=== PATIENT | male | born 1950 | race African-American/Black ===

== ENCOUNTER 2018-02-02 06:34 | Inpatient (IN) | payer MEDICARE, MEDICAID ==
[~2018-02-02] VITALS: Ht 190.5 cm; Wt 102.1 kg
[2018-02-02] VITALS (19 sets, daily range): BP systolic 75–243; BP diastolic 38–186
[2018-02-02] MEDS ORDERED: METOPROLOL SUCC50 MG ORAL (06:53)
[2018-02-02] MEDS ORDERED: LISINOPRIL10 MG ORAL (06:53)
[2018-02-02] MEDS ORDERED: SEROQUEL100 MG ORAL (06:53)
[2018-02-02] MEDS ORDERED: ACETAMINOPHEN325 M1 ORAL (06:53)
[2018-02-02] MEDS ORDERED: ZINC SULFATE220 M1 ORAL (06:53)
[2018-02-02] MEDS ORDERED: MULTIVITAMINS1 EAC8 ORAL (06:53)
[2018-02-02] MEDS ORDERED: VITAMIN C500 M1 ORAL (06:53)
[2018-02-02] MEDS ORDERED: PROTONIX40 MG ORAL (06:53)
[2018-02-02] MEDS ORDERED: MONTELUKAST SOD10 MG ORAL (06:53)
[2018-02-02] MEDS ORDERED: ALUM-MAG HYDRO360 ML PO (06:53)
[2018-02-02] MEDS ORDERED: MILK OF MA400 MG/51 ORAL (06:53)
[2018-02-02 06:58] LABS: HEMATOCRIT 39.9 % (42.0-52.0); HEMOGLOBIN 12.8 G/DL (14.2-18.0); MEAN CORPUSCULAR VOLUME 90 FL (80-99); PLATELET COUNT 369 K/UL (150-450); RED BLOOD COUNT 4.41 M/UL (4.70-6.10); RED CELL DISTRIBUTION WIDTH 12.3 % (11.6-14.8); WHITE BLOOD COUNT 15.8 K/UL (4.8-10.8)
[2018-02-02 07:19] LABS: INR 1.1 (0.9-1.1)
[2018-02-02 07:28] LABS: ALBUMIN 2.9 G/DL (3.4-5.0); ALBUMIN/GLOBULIN RATIO 0.5 (1.0-2.7); ALKALINE PHOSPHATASE 88 U/L (46-116); ANION GAP 9 mmol/L (5-15); BILIRUBIN,TOTAL 0.9 MG/DL (0.2-1.0); BLOOD UREA NITROGEN 157 mg/dL (7-18); CALCIUM 9.4 MG/DL (8.5-10.1); CARBON DIOXIDE 22 MMOL/L (21-32); CHLORIDE 97 MMOL/L (98-107); CREATININE 7.9 MG/DL (0.55-1.30); POTASSIUM 8.7 MMOL/L (3.5-5.1); SODIUM 129 MMOL/L (136-145)
[2018-02-02] MEDS ORDERED: Insulin Human Regular 100units/ml 3ml IV ONE ×2 (07:30→22:00)
[2018-02-02] MEDS ORDERED: Calcium Chloride 100mg/ml Vial IVP ONE ×2 (07:30)
[2018-02-02] MEDS ORDERED: Sodium Bicarbonate 50ml Carp IV ONE (07:30)
[2018-02-02 07:35] LABS: ALANINE AMINOTRANSFERASE 182 U/L (12-78); ASPARTATE AMINO TRANSFERASE 778 U/L (15-37)
[2018-02-02] MEDS: Nitroglycerin Patch 0.2mg/hr TDERMAL SCH (07:45)
--- NOTE | 2018-02-02 07:50 | Emergency Room Report ---
History of Present Illness General Chief Complaint: Altered Level of Consciousness Present Illness HPI This SNF patient referred for being "altered" noted ~ 3am. Less responsive. No report of fever, trauma, vomiting. Pt. cannot give any history. Paperwork: RLE chronic ulcer, ALBERTO, HTN, bipolar, hyponatremia, CAD, CVA, a fib, substance abuse, November labs: hgb 10, creat 0.8 Allergies: Coded Allergies: MILK (Verified Allergy, Unknown, 02/02/18) Uncoded Allergies: MILK PRODUCTS (Allergy, Unknown, 02/02/18) Nursing Documentation-PMH Hx Cardiac Problems: Yes - A FIB,HYPERLIPIDEMIA,ATHEROSCLEROTIC HEART DIS Hx Hypertension: Yes - NON PRESSURE CHRONIC ULCER ON RT LOWER EXTREMITY Hx Gastrointestinal Problems: Yes - ACUTE KIDNEY FAILURE History Of Psychiatric Problem: Yes - BIPOLAR Hx Cerebrovascular Accident: Yes - CEREBRAL INFARCTION Review of Systems Constitutional: Reports: see HPI Respiratory: Reports: no symptoms Cardiovascular: Reports: no symptoms Gastrointestinal: Reports: no symptoms Neurological: Reports: see HPI All Other Systems: limited Physical Exam Vital Signs Date Time Temp Pulse Resp B/P (MAP) Pulse Ox O2 Delivery O2 Flow Rate FiO2 02/02/18 06:30 98.6 94 18 80/50 97 Room Air 98.6 Sp02 EP Interpretation: reviewed, normal General Appearance: thin, Chronically Ill Eyes: bilateral eye PERRL ENT: dry mucus membranes Neck: normal inspection, supple, thyroid normal Respiratory: normal inspection, lungs clear, normal breath sounds, no accessory muscle use Cardiovascular #1: normal inspection, normal peripheral pulses, regular rate, rhythm Gastrointestinal: normal bowel sounds, non tender, soft Musculoskeletal: other - chronic wound right lower leg; good rom hips, nontender Neurologic: other - lethargic, moves to painful stimuli and spont, occasional word Psychiatric: other - cannot evaluate Medical Decision Making Diagnostic Impression: Primary Impression: Metabolic encephalopathy Additional Impressions: Acute kidney failure Hyperkalemia NSTEMI (non-ST elevated myocardial infarction) Rhabdomyolysis ER Course EKG noted and hyperkalemia meds ordered. BP initially low, then high, then normotensive so no antihtn meds indicated. Bradycardia from 47 to 67 after two amps calcium. Bicarb also given. Insulin/ dextrose given. Pt. cannot take aspirin due to not able to follow directions. d/w Dr. Montesinos who also consulted Dr. Jenkins. CRITICAL CARE NOTE: The patient was at risk for respiratory and cardiac failure and required aggressive intervention by me. Critical care time provided by me, excluding other separately billable procedures exceeded 35 minutes. This time included: Obtaining history from: EMS Examination of the patient Development of treatment plan Ordering and reviewing diagnostic test results Discussion of treatment plan with oracle application consultant, PMD Coordinating care with nursing and respiratory therapy Supervising IV medications Multiple reassessments Discussion with the admitting physician severe hyperkalemia, positive troponin EKG Diagnostic Results EP Interpretation: 730 am: sinus 100, LAD, peaked T waves diffussely Rate: normal Rhythm: NSR ST Segments: other ASA given to the pt in ED: No Rhythm Strip Diag. Results Rhythm Strip Time: 07:53 EP Interpretation: yes Rate: 67 Rhythm: NSR Chest X-Ray Diagnostic Results Chest X-Ray Diagnostic Results : Chest X-Ray Ordered: Yes # of Views/Limited/Complete: 1 View Indication: Chest Pain EP Interpretation: Yes Interpretation: no consolidation, no effusion, no pneumothorax, no acute cardiopulmonary disease, other - ectatic aorta Reevaluation Time: 07:55 heart rate currently 69 Last Vital Signs Date Time Temp Pulse Resp B/P (MAP) Pulse Ox O2 Delivery O2 Flow Rate FiO2 02/02/18 07:00 98.6 88 23 134/106 95 Room Air 98.6 Status: improved Disposition: ADMITTED INPATIENT Condition: Critical Referrals: NON PHYSICIAN (PCP) Adriel Singh M.D. Feb 02, 2018 07:50
[2018-02-02 07:58] LABS: CREATINE KINASE > 10000 U/L (26-308)
[2018-02-02 08:23] LABS: APPEARANCE,URINE CLOUDY; BILIRUBIN, URINE NEGATIVE (NEGATIVE); GLUCOSE, URINE (UA) NEGATIVE (NEGATIVE); KETONES,URINE NEGATIVE (NEGATIVE); LEUKOCYTE ESTERASE ,URINE NEGATIVE (NEGATIVE); NITRITE,URINE NEGATIVE (NEGATIVE); PH,URINE 5 (4.5-8.0); PROTEIN,URINE 2+ (NEGATIVE); UROBILINOGEN,URINE NORMAL MG/DL (0.0-1.0)
[2018-02-02 08:30] LABS: COLOR,URINE YELLOW
--- NOTE | 2018-02-02 10:07 | Diagnostic Imaging Report ---
Indication: Chest pain Technique: One view of the chest Comparison: none Findings: Patient is rotated to the right. Lungs and pleural spaces are clear. Heart size is normal Impression: No acute process
--- NOTE | 2018-02-02 10:46 | Consultation ---
History of Present Illness General Date patient seen: Feb 02, 2018 Chief Complaint: Altered Level of Consciousness Present Illness HPI 67 y/o M with hx of HTN, RLE chronic ulcer, HLD, Bipolar dz, CAD, CVA, Afib, substance abuse, SNF resident presents to ED on 02/02 with AMS, less responsive. No report of fever, trauma, vomiting In ED noted to have hyperkalemia w/ peaked T waves diffussely, BP low initially , bradycardia to 47; both BP and bradycardia improved. Given insulin/dextrose, bicarb. Cr 7.9, K 8.7, CK 10k, Trop 0.20s Allergies: Coded Allergies: MILK (Verified Allergy, Unknown, 02/02/18) Uncoded Allergies: MILK PRODUCTS (Allergy, Unknown, 02/02/18) Medication History Scheduled Ascorbic Acid* (Vitamin C*), 500 MG ORAL DAILY, (Reported) Lisinopril* (Lisinopril*), 10 MG ORAL DAILY, (Reported) Mag Hydrox/Al Hydrox/Simeth (Alum-Mag Hydroxide-Simeth Liq), 30 ML PO EVERY 6 HOURS, (Reported) Magnesium Hydroxide* (Milk Of Magnesia*), 30 ML ORAL BEDTIME, (Reported) Metoprolol Succinate* (Metoprolol Succinate*), 50 MG ORAL EVERY 12 HOURS, ( Reported) Montelukast Sodium* (Montelukast Sodium*), 10 MG ORAL DAILY, (Reported) Multivitamin With Minerals (Multivitamins With Minerals*), 1 TAB ORAL DAILY, ( Reported) Pantoprazole* (Protonix*), 40 MG ORAL DAILY, (Reported) Quetiapine Fumarate* (Seroquel*), 100 MG ORAL BEDTIME, (Reported) Zinc Sulfate (Zinc Sulfate*), 220 MG ORAL DAILY, (Reported) Scheduled PRN Acetaminophen* (Acetaminophen 325MG Tablet*), 650 MG ORAL Q4H PRN for Mild Pain (Pain Scale 1-3), (Reported) Acetaminophen* (Acetaminophen 325MG Tablet*), 650 MG ORAL Q4H PRN for DANNY >101, (Reported) Patient History Healthcare decision maker Resuscitation status Full Code Advanced Directive on File Physical Exam Physical Exam Narrative General Appearance: thin, Chronically Ill Eyes: bilateral eye PERRL ENT: dry mucus membranes Neck: normal inspection, supple, thyroid normal Respiratory: normal inspection, lungs clear, normal breath sounds, no accessory muscle use Cardiovascular #1: normal inspection, normal peripheral pulses, regular rate, rhythm Gastrointestinal: normal bowel sounds, non tender, soft Musculoskeletal: other - chronic wound right lower leg; good rom hips, nontender Neurologic: other - lethargic, moves to painful stimuli and spont, occasional word Psychiatric: other - cannot evaluate Last 24 Hour Vital Signs Date Time Temp Pulse Resp B/P (MAP) Pulse Ox O2 Delivery O2 Flow Rate FiO2 02/02/18 10:18 Simple Mask 5.0 02/02/18 09:36 98.4 78 24 117/74 98 Simple Mask 5.0 98.4 02/02/18 08:36 98.4 82 27 115/82 100 Simple Mask 5.0 98.4 02/02/18 07:45 106/46 02/02/18 07:00 98.6 88 23 134/106 95 Room Air 98.6 02/02/18 06:30 98.6 94 18 80/50 97 Room Air 98.6 Intake and Output 02/01/18 02/02/18 19:00 07:00 Output Total 0 ml Balance 0 ml Output Urine Total 0 ml Laboratory Tests Test 02/02/18 06:38 02/02/18 08:00 White Blood Count 15.8 K/UL (4.8-10.8) H Red Blood Count 4.41 M/UL (4.70-6.10) L Hemoglobin 12.8 G/DL (14.2-18.0) L Hematocrit 39.9 % (42.0-52.0) L Mean Corpuscular Volume 90 FL (80-99) Mean Corpuscular Hemoglobin 29.1 PG (27.0-31.0) Mean Corpuscular Hemoglobin Concent 32.2 G/DL (32.0-36.0) Red Cell Distribution Width 12.3 % (11.6-14.8) Platelet Count 369 K/UL (150-450) Mean Platelet Volume 4.8 FL (6.5-10.1) L Neutrophils (%) (Auto) % (45.0-75.0) Lymphocytes (%) (Auto) % (20.0-45.0) Monocytes (%) (Auto) % (1.0-10.0) Eosinophils (%) (Auto) % (0.0-3.0) Basophils (%) (Auto) % (0.0-2.0) Differential Total Cells Counted 100 Neutrophils % (Manual) 87 % (45-75) H Lymphocytes % (Manual) 7 % (20-45) L Monocytes % (Manual) 6 % (1-10) Eosinophils % (Manual) 0 % (0-3) Basophils % (Manual) 0 % (0-2) Band Neutrophils 0 % (0-8) Platelet Estimate Adequate Platelet Morphology Normal Red Blood Cell Morphology Normal Prothrombin Time 12.0 SEC (9.30-11.50) H Prothromb Time International Ratio 1.1 (0.9-1.1) Sodium Level 129 MMOL/L (136-145) L Potassium Level 8.7 MMOL/L (3.5-5.1) *H Chloride Level 97 MMOL/L (98-107) L Carbon Dioxide Level 22 MMOL/L (21-32) Anion Gap 9 mmol/L (5-15) Blood Urea Nitrogen 157 mg/dL (7-18) H Creatinine 7.9 MG/DL (0.55-1.30) H Estimat Glomerular Filtration Rate 8.4 mL/min (>60) Glucose Level 117 MG/DL (74-106) H Lactic Acid Level 2.00 mmol/L (0.4-2.0) Calcium Level 9.4 MG/DL (8.5-10.1) Total Bilirubin 0.9 MG/DL (0.2-1.0) Aspartate Amino Transf (AST/SGOT) 778 U/L (15-37) H Alanine Aminotransferase (ALT/SGPT) 182 U/L (12-78) H Alkaline Phosphatase 88 U/L (46-116) Total Creatine Kinase > 44860 U/L (26-308) H Troponin I 0.288 ng/mL (0.000-0.056) Total Protein 8.2 G/DL (6.4-8.2) Albumin 2.9 G/DL (3.4-5.0) L Globulin 5.3 g/dL Albumin/Globulin Ratio 0.5 (1.0-2.7) L Urine Color Yellow Urine Appearance Cloudy Urine pH 5 (4.5-8.0) Urine Specific [place] 1.020 (1.005-1.035) Urine Protein 2+ (NEGATIVE) H Urine Glucose (UA) Negative (NEGATIVE) Urine Ketones Negative (NEGATIVE) Urine Occult Blood 5+ (NEGATIVE) H Urine Nitrite Negative (NEGATIVE) Urine Bilirubin Negative (NEGATIVE) Urine Urobilinogen Normal MG/DL (0.0-1.0) Urine Leukocyte Esterase Negative (NEGATIVE) Urine RBC 5-10 /HPF (0 - 0) H Urine WBC 0-2 /HPF (0 - 0) Urine Squamous Epithelial Cells Occasional /LPF Urine Amorphous Sediment Moderate /LPF (NONE) H Urine Bacteria Occasional /HPF (NONE) Microbiology Date/Time Source Procedure Growth Status 02/02/18 08:00 Rectum Received Height (Feet): 6 Height (Inches): 3.00 Weight (Pounds): 190 Medications Current Medications Medications (Trade) Dose Ordered Sig/Erlin Route PRN Reason Start Time Stop Time Status Last Admin Dose Admin Nitroglycerin (Ntg) 1 patch Q24H TDERMAL 02/02/18 07:45 03/04/18 07:44 Assessment/Plan Assessment/Plan Abx: None Assessment: Afebrile, no leukocytosis- no evidence of infectious process -u/a neg -CXR: no acute disease R leg ulcer- no signs of infection Acute renal failure- ?etiology- r/o toxic Anion gap acidosis Rhabdomyolysis Elevated LFTs (AST>ALT) Hyperkalemia w/ EKG changes Hypotension/bradycardia upon admission -2ry to above Metabolic encephalopathy Plan: -Continue to monitor off abx -UDS, alcohol, salicyclic acid levels -ABD/renal US -HIV and hep serologies -Renal eval -f/u cx -Monitor CBC/CMP, temperatures -ICU support -Aspiration precautions -wound care as per hosp protocol Thank you for this consultation. Will continue to follow along with you. Discussed with DAI. Alma Elkins M.D. Feb 02, 2018 10:46
[2018-02-02] MEDS ORDERED: Heparin Sod 1000 units/ml 10ml INJ ONE (11:00)
[2018-02-02] MEDS ORDERED: Heparin 2000 units/Ns 1000ml IV SCH (11:05)
[2018-02-02] MEDS ORDERED: Lidocaine 1% Plain 30 ml INJ SCH (11:05)
--- NOTE | 2018-02-02 11:21 | Consultation ---
Consult Note Consult Note asked to eval for renal failure Chief Complaint: Altered Level of Consciousness This SNF patient referred for being "altered" noted ~ 3am. Less responsive. No report of fever, trauma, vomiting. Pt. cannot give any history. Paperwork: RLE chronic ulcer, ALBERTO, HTN, bipolar, hyponatremia, CAD, CVA, a fib, substance abuse, November labs: hgb 10, creat 0.8 Allergies: MILK (Verified Allergy, Unknown, 02/02/18) MILK PRODUCTS (Allergy, Unknown, 02/02/18) Nursing Documentation-PMH Hx Cardiac Problems: Yes - A FIB,HYPERLIPIDEMIA,ATHEROSCLEROTIC HEART DIS Hx Hypertension: Yes - NON PRESSURE CHRONIC ULCER ON RT LOWER EXTREMITY Hx Gastrointestinal Problems: Yes - ACUTE KIDNEY FAILURE History Of Psychiatric Problem: Yes - BIPOLAR Hx Cerebrovascular Accident: Yes - CEREBRAL INFARCTION seen in ICU Altered Assessment/Plan Acute Renal Failure- Severe HyperKalemia Low BP Valladares 850 cc removed IV fluids- PEARL Kidney stat DIalysis for high K Ruy Colvin MD Feb 02, 2018 11:21
[2018-02-02] MEDS: DOPamine 400mg/250ml 250 ML IV SCH ×2 (12:00→23:27)
[2018-02-02] MEDS: D5NS 1,000 ML IV SCH ×2 (12:00→17:45)
[2018-02-02] MEDS: Sodium Bicarbonate 50ml Carp IV SCH ×2 (12:00→21:29)
[2018-02-02] MEDS ORDERED: Calcium Gluconate 1gm/10ml vial IVP SCH (12:00)
[2018-02-02] MEDS ORDERED: Heparin 5000 units/ml inj SUBQ SCH (12:00)
--- NOTE | 2018-02-02 12:14 | Operative Note - PDOC ---
Operative Note Operative Note Date of Operation/Procedure: Feb 02, 2018 Pre-op Diagnosis: sepsis, altered mental status, critical care, hyperkalemia Procedure: 1. right Internal Jugular central venous catheter insertion 2. left internal jugular temporary hemodialysis catheter insertion Post-op Diagnosis: same as pre-op Surgeon: rhett Anesthesia: local Specimen: none Complications: none Condition: unstable Fluids: n/a Estimated Blood Loss: minimal Drains: none Implant(s) used?: No Indications for Procedure 67M [facility] resident was admitted to ICU for critical care and management. Noted to be septic with multiple medical comorbidities. For critical care management requires central venous access for meds , fluids, and therapy. Also hyperkalemia with possible EKG changes requiring urgent dialysis. Central venous catheter and temp HD catheter indicated and recommended. surgery called for placement. consent obtained. procedure bedside in ICU Description of Procedure patient made comfortable at bedside. patient in ICU on monitors with staff present. ultrasound used to identify left and right IJ. right larger than left. both right and left neck prepped and draped in standard surgical fashion. team gowned and gloved in standard surgical fashion. time out performed. left internal jugular vein cannulated with finder needle under ultrasound guidance. guide wire placed over needle and needle removed. ultrasound identified wire in left IJ. small skin incision made over wire. dilator used to dilate track. triple lumen catheter placed over guide wire. guidewire removed and discarded. all ports flushed and aspirated well. catheter sutured in two places. dressings applied. right IJ then identified using ultrasound and cannulated with finder needle. guidewire passed over needle. small skin incision made and dilators used. temporary HD cath placed over wire into right IJ without complication. catheter sutured in place. all ports flushed and aspirated. heparin placed in HD catheter ports. local anesthetic used during procedure for patients comfort. CXR obtained and lines in place ready for use. patient tolerated procedure well. Goyo Osuna Feb 02, 2018 12:14
[2018-02-02 12:21] LABS: BASOPHILS % (AUTO) 0.9 % (0.0-2.0); HEMATOCRIT 36.9 % (42.0-52.0); HEMOGLOBIN 12.2 G/DL (14.2-18.0); LYMPHOCYTES % (AUTO) 5.7 % (20.0-45.0); MEAN CORPUSCULAR VOLUME 90 FL (80-99); MONOCYTES % (AUTO) 12.3 % (1.0-10.0); PLATELET COUNT 297 K/UL (150-450); RED BLOOD COUNT 4.09 M/UL (4.70-6.10); RED CELL DISTRIBUTION WIDTH 12.2 % (11.6-14.8); WHITE BLOOD COUNT 17.7 K/UL (4.8-10.8)
--- NOTE | 2018-02-02 12:23 | History and Physical ---
History of Present Illness General Date patient seen: Feb 02, 2018 Reason for Hospitalization: Altered Level of Consciousness Present Illness HPI 67 year old male with hx of HTN, bipolar, hyponatremia, CAD, CVA, a fib, RLE chronic ulcer, substance abuse SNF resident, brought in by paramedics with CC of being "altered" noted ~ 3am. Less responsive. No report of fever, trauma, vomiting. Pt. cannot give any history. Pt was found to be in renal with K of 8 and admitted to ICU for further management. Allergies: Coded Allergies: MILK (Verified Allergy, Unknown, 02/02/18) Uncoded Allergies: MILK PRODUCTS (Allergy, Unknown, 02/02/18) Medication History Scheduled Ascorbic Acid* (Vitamin C*), 500 MG ORAL DAILY, (Reported) Lisinopril* (Lisinopril*), 10 MG ORAL DAILY, (Reported) Mag Hydrox/Al Hydrox/Simeth (Alum-Mag Hydroxide-Simeth Liq), 30 ML PO EVERY 6 HOURS, (Reported) Magnesium Hydroxide* (Milk Of Magnesia*), 30 ML ORAL BEDTIME, (Reported) Metoprolol Succinate* (Metoprolol Succinate*), 50 MG ORAL EVERY 12 HOURS, ( Reported) Montelukast Sodium* (Montelukast Sodium*), 10 MG ORAL DAILY, (Reported) Multivitamin With Minerals (Multivitamins With Minerals*), 1 TAB ORAL DAILY, ( Reported) Pantoprazole* (Protonix*), 40 MG ORAL DAILY, (Reported) Quetiapine Fumarate* (Seroquel*), 100 MG ORAL BEDTIME, (Reported) Zinc Sulfate (Zinc Sulfate*), 220 MG ORAL DAILY, (Reported) Scheduled PRN Acetaminophen* (Acetaminophen 325MG Tablet*), 650 MG ORAL Q4H PRN for Mild Pain (Pain Scale 1-3), (Reported) Acetaminophen* (Acetaminophen 325MG Tablet*), 650 MG ORAL Q4H PRN for DANNY >101, (Reported) Patient History Healthcare decision maker Resuscitation status Full Code Advanced Directive on File Past Medical/Surgical History Past Medical/Surgical History: (1) CAD (coronary artery disease) (2) CVA (cerebral vascular accident) (3) Drug abuse (4) HTN (hypertension) (5) Bipolar 1 disorder Review of Systems All Other Systems: negative except mentioned in HPI ROS Narrative pt can't give any history, totally stuporous Physical Exam General Appearance: WD/WN, no apparent distress Lines, tubes and drains: peripheral HEENT: normocephalic, atraumatic Neck: non-tender, normal alignment Respiratory/Chest: chest wall non-tender, lungs clear, normal breath sounds Breasts: no masses Cardiovascular/Chest: normal peripheral pulses, normal rate Abdomen: normal bowel sounds, non tender Genitourinary/Rectal: normal genital exam Skin Exam: normal pigmentation Neurologic: webbing tacker II-XII grossly normal Last 24 Hour Vital Signs Date Time Temp Pulse Resp B/P (MAP) Pulse Ox O2 Delivery O2 Flow Rate FiO2 02/02/18 11:00 63 16 140/49 (79) 100 02/02/18 10:18 Simple Mask 5.0 02/02/18 10:00 98.7 71 16 110/59 (76) 100 98.7 02/02/18 09:36 98.4 78 24 117/74 98 Simple Mask 5.0 98.4 02/02/18 08:36 98.4 82 27 115/82 100 Simple Mask 5.0 98.4 02/02/18 07:45 106/46 02/02/18 07:00 98.6 88 23 134/106 95 Room Air 98.6 02/02/18 06:30 98.6 94 18 80/50 97 Room Air 98.6 Intake and Output 02/01/18 02/02/18 19:00 07:00 Output Total 0 ml Balance 0 ml Output Urine Total 0 ml Laboratory Tests Test 02/02/18 06:38 02/02/18 08:00 02/02/18 10:55 White Blood Count 15.8 K/UL (4.8-10.8) H Red Blood Count 4.41 M/UL (4.70-6.10) L Hemoglobin 12.8 G/DL (14.2-18.0) L Hematocrit 39.9 % (42.0-52.0) L Mean Corpuscular Volume 90 FL (80-99) Mean Corpuscular Hemoglobin 29.1 PG (27.0-31.0) Mean Corpuscular Hemoglobin Concent 32.2 G/DL (32.0-36.0) Red Cell Distribution Width 12.3 % (11.6-14.8) Platelet Count 369 K/UL (150-450) Mean Platelet Volume 4.8 FL (6.5-10.1) L Neutrophils (%) (Auto) % (45.0-75.0) Lymphocytes (%) (Auto) % (20.0-45.0) Monocytes (%) (Auto) % (1.0-10.0) Eosinophils (%) (Auto) % (0.0-3.0) Basophils (%) (Auto) % (0.0-2.0) Differential Total Cells Counted 100 Neutrophils % (Manual) 87 % (45-75) H Lymphocytes % (Manual) 7 % (20-45) L Monocytes % (Manual) 6 % (1-10) Eosinophils % (Manual) 0 % (0-3) Basophils % (Manual) 0 % (0-2) Band Neutrophils 0 % (0-8) Platelet Estimate Adequate Platelet Morphology Normal Red Blood Cell Morphology Normal Prothrombin Time 12.0 SEC (9.30-11.50) H Prothromb Time International Ratio 1.1 (0.9-1.1) Sodium Level 129 MMOL/L (136-145) L Potassium Level 8.7 MMOL/L (3.5-5.1) *H Chloride Level 97 MMOL/L (98-107) L Carbon Dioxide Level 22 MMOL/L (21-32) Anion Gap 9 mmol/L (5-15) Blood Urea Nitrogen 157 mg/dL (7-18) H Creatinine 7.9 MG/DL (0.55-1.30) H Estimat Glomerular Filtration Rate 8.4 mL/min (>60) Glucose Level 117 MG/DL (74-106) H Lactic Acid Level 2.00 mmol/L (0.4-2.0) Calcium Level 9.4 MG/DL (8.5-10.1) Total Bilirubin 0.9 MG/DL (0.2-1.0) Aspartate Amino Transf (AST/SGOT) 778 U/L (15-37) H Alanine Aminotransferase (ALT/SGPT) 182 U/L (12-78) H Alkaline Phosphatase 88 U/L (46-116) Total Creatine Kinase > 56830 U/L (26-308) H Troponin I 0.288 ng/mL (0.000-0.056) Total Protein 8.2 G/DL (6.4-8.2) Albumin 2.9 G/DL (3.4-5.0) L Globulin 5.3 g/dL Albumin/Globulin Ratio 0.5 (1.0-2.7) L Urine Color Yellow Urine Appearance Cloudy Urine pH 5 (4.5-8.0) Urine Specific [place] 1.020 (1.005-1.035) Urine Protein 2+ (NEGATIVE) H Urine Glucose (UA) Negative (NEGATIVE) Urine Ketones Negative (NEGATIVE) Urine Occult Blood 5+ (NEGATIVE) H Urine Nitrite Negative (NEGATIVE) Urine Bilirubin Negative (NEGATIVE) Urine Urobilinogen Normal MG/DL (0.0-1.0) Urine Leukocyte Esterase Negative (NEGATIVE) Urine RBC 5-10 /HPF (0 - 0) H Urine WBC 0-2 /HPF (0 - 0) Urine Squamous Epithelial Cells Occasional /LPF Urine Amorphous Sediment Moderate /LPF (NONE) H Urine Bacteria Occasional /HPF (NONE) Arterial Blood pH 7.335 (7.350-7.450) Arterial Blood Partial Pressure CO2 35.3 mmHg (35.0-45.0) Arterial Blood Partial Pressure O2 133.7 mmHg (75.0-100.0) H Arterial Blood HCO3 18.4 mmol/L (22.0-26.0) L Arterial Blood Oxygen Saturation 98.1 % (92.0-98.0) H Arterial Blood Base Excess -6.6 Trell Test Positive Microbiology Date/Time Source Procedure Growth Status 02/02/18 08:00 Rectum Received Height (Feet): 6 Height (Inches): 3.00 Weight (Pounds): 190 Medications Current Medications Medications (Trade) Dose Ordered Sig/Erlin Route PRN Reason Start Time Stop Time Status Last Admin Dose Admin Calcium Gluconate (Calcium Gluconate 10%) 1 gm ONCE IVP 02/02/18 12:00 02/02/18 13:00 Dextrose/Sodium Chloride 1,000 ml @ 150 mls/hr Q6H40M IV 02/02/18 11:30 03/04/18 11:29 Dopamine HCl/ Dextrose 250 ml @ 0 mls/hr Q24H IV 02/02/18 12:00 03/04/18 11:59 Heparin Sodium (Porcine) (Heparin 5000 units/ml) 5,000 units ONCE SUBQ 02/02/18 12:00 02/02/18 13:00 Heparin Sodium/ Sodium Chloride (Heparin 2000 units/Ns 1000ml premix) 2,000 unit ONCE IV 02/02/18 11:05 02/02/18 18:00 Lidocaine HCl (Xylocaine 1% 30ml) 30 ml ONCE INJ 02/02/18 11:05 02/02/18 18:00 Nitroglycerin (Ntg) 1 patch Q24H TDERMAL 02/02/18 07:45 03/04/18 07:44 Sodium Bicarbonate (Sodium Bicarbonate) 50 ml TID IV 02/02/18 13:00 02/03/18 09:01 Assessment/Plan Problem List: (1) Metabolic encephalopathy ICD Codes: G93.41 - Metabolic encephalopathy SNOMED: 91251243 (2) Acute kidney failure ICD Codes: N17.9 - Acute kidney failure, unspecified SNOMED: 72809971 (3) NSTEMI (non-ST elevated myocardial infarction) ICD Codes: I21.4 - Non-ST elevation (NSTEMI) myocardial infarction SNOMED: 952663636 (4) CAD (coronary artery disease) ICD Codes: I25.10 - Atherosclerotic heart disease of [place] coronary artery without angina pectoris SNOMED: 62782957 (5) CVA (cerebral vascular accident) ICD Codes: I63.9 - Cerebral infarction, unspecified SNOMED: 559162760 (6) Bipolar 1 disorder ICD Codes: F31.9 - Bipolar disorder, unspecified SNOMED: 970571834 (7) HTN (hypertension) ICD Codes: I10 - Essential (primary) hypertension SNOMED: 45080928 Assessment/Plan iv fluids check electrolytes HD access wound care CVP monitoring dvt prophylaxis renal US echo serial troponin swallow study when mental status better Minerva Montesinos MD Feb 02, 2018 12:23
[2018-02-02] MEDS ORDERED: Miralax 17gm pkt ORAL PRN (12:30)
[2018-02-02] MEDS ORDERED: Albuterol/Ipratropium 3ml neb HHN PRN (12:30)
[2018-02-02 12:47] LABS: ALANINE AMINOTRANSFERASE 313 U/L (12-78); ALBUMIN 2.2 G/DL (3.4-5.0); ALBUMIN/GLOBULIN RATIO 0.5 (1.0-2.7); ALKALINE PHOSPHATASE 73 U/L (46-116); ANION GAP 9 mmol/L (5-15); ASPARTATE AMINO TRANSFERASE 1684 U/L (15-37); BLOOD UREA NITROGEN 135 mg/dL (7-18); CALCIUM 9.3 MG/DL (8.5-10.1); CARBON DIOXIDE 20 MMOL/L (21-32); CHLORIDE 105 MMOL/L (98-107); CREATININE 6.3 MG/DL (0.55-1.30); SODIUM 134 MMOL/L (136-145)
[2018-02-02 12:48] LABS: POTASSIUM 7.6 MMOL/L (3.5-5.1)
[2018-02-02] MEDS ORDERED: Sodium Bicarbonate 50ml Carp IV SCH (13:00)
[2018-02-02 13:48] LABS: CREATINE KINASE > 10000 U/L (26-308)
--- NOTE | 2018-02-02 14:29 | Diagnostic Imaging Report ---
Indication: Abnormal liver function tests and abnormal renal function tests Technique: Oh-scale and duplex images of the upper abdomen were obtained Comparison: none Findings: Gallbladder is nondistended. It demonstrates a small amount sludge, but no stones, wall thickening, nor pericholecystic fluid. Gallbladder wall measures 4 mm thick Common bile duct measures 7 mm in diameter. No intrahepatic biliary ductal dilatation. Liver demonstrates normal echogenicity, no focal abnormality. Portal vein and hepatic veins are patent. Pancreas is unremarkable. Spleen is unremarkable. Left kidney measures 11 cm in length. Right kidney measures 11 cm length. Both kidneys demonstrate equivocally slightly increased echogenicity. There is no hydronephrosis. No focal abnormality . Non-aneurysmal abdominal aorta . The bladder contains a Valladares catheter. It demonstrates a calculated volume of 150 mL despite the presence of the Valladares catheter. A small amount of debris is seen layering dependently within the urinary bladder. Impression: Gallbladder sludge, but no stones. Apparent mild gallbladder wall thickening, probably an artifact of under distention, but if real could indicate acute acalculous cholecystitis, among other possibilities. Consider hepatobiliary nuclear scan if there is high clinical suspicion Mildly dilated common bile duct. Downstream obstruction not excludable. Consider MRCP for further evaluation, if clinically indicated 150 mL urinary bladder volume, despite presence of Valladares catheter. Trace debris within the urinary bladder
--- NOTE | 2018-02-02 14:51 | Diagnostic Imaging Report ---
Indication: Post right jugular dialysis catheter placement of left jugular central line placement Technique: One view of the chest Comparison: 5 hours earlier Findings: Interim placement right jugular temporary dialysis catheter, tip which projects at the level of the cavoatrial junction. Interim placement of a left jugular central venous catheter, tip which projects at the level of the mid superior vena cava. The lungs and pleural spaces are clear. There is no evidence of pneumothorax. Left costophrenic angle is cut off exam. The heart size is normal. The aorta is tortuous and ectatic Impression: Satisfactory left jugular central venous catheter placement and right jugular temporary dialysis catheter placement, both suitable for use. No radiographically evident complication No acute abnormality
[2018-02-02 20:06] LABS: AMMONIA < 10 umol/L (11-32)
--- NOTE | 2018-02-02 20:13 | Consultation ---
History of Present Illness General Date patient seen: Feb 02, 2018 Chief Complaint: Altered Level of Consciousness Present Illness HPI 67 y/o M with hx of HTN, RLE chronic ulcer, HLD, Bipolar dz, CAD, CVA, Afib, substance abuse the pt is confused knows his name however has waxing and waning of consciousness. memory impairment Allergies: Coded Allergies: MILK (Verified Allergy, Unknown, 02/02/18) Uncoded Allergies: MILK PRODUCTS (Allergy, Unknown, 02/02/18) Medication History Scheduled Ascorbic Acid* (Vitamin C*), 500 MG ORAL DAILY, (Reported) Lisinopril* (Lisinopril*), 10 MG ORAL DAILY, (Reported) Mag Hydrox/Al Hydrox/Simeth (Alum-Mag Hydroxide-Simeth Liq), 30 ML PO EVERY 6 HOURS, (Reported) Magnesium Hydroxide* (Milk Of Magnesia*), 30 ML ORAL BEDTIME, (Reported) Metoprolol Succinate* (Metoprolol Succinate*), 50 MG ORAL EVERY 12 HOURS, ( Reported) Montelukast Sodium* (Montelukast Sodium*), 10 MG ORAL DAILY, (Reported) Multivitamin With Minerals (Multivitamins With Minerals*), 1 TAB ORAL DAILY, ( Reported) Pantoprazole* (Protonix*), 40 MG ORAL DAILY, (Reported) Quetiapine Fumarate* (Seroquel*), 100 MG ORAL BEDTIME, (Reported) Zinc Sulfate (Zinc Sulfate*), 220 MG ORAL DAILY, (Reported) Scheduled PRN Acetaminophen* (Acetaminophen 325MG Tablet*), 650 MG ORAL Q4H PRN for Mild Pain (Pain Scale 1-3), (Reported) Acetaminophen* (Acetaminophen 325MG Tablet*), 650 MG ORAL Q4H PRN for DANNY >101, (Reported) Patient History Limited by: medical condition History Provided By: Patient, Medical Record, PMD Healthcare decision maker Resuscitation status Full Code Advanced Directive on File Past Medical/Surgical History Past Medical/Surgical History: (1) Rhabdomyolysis (2) Hyperkalemia (3) Acute kidney failure (4) NSTEMI (non-ST elevated myocardial infarction) (5) Drug abuse (6) CAD (coronary artery disease) (7) HTN (hypertension) (8) CVA (cerebral vascular accident) (9) Bipolar 1 disorder (10) Metabolic encephalopathy Review of Systems Psychiatric: Reports: prior hx, anxiety, depressed feelings, emotional problems Physical Exam General Appearance: no apparent distress, confused Last 24 Hour Vital Signs Date Time Temp Pulse Resp B/P (MAP) Pulse Ox O2 Delivery O2 Flow Rate FiO2 02/02/18 19:00 88 16 122/71 (88) 100 02/02/18 18:00 90 16 114/85 (95) 100 18 17:19 Nasal Cannula 02/02/18 17:00 94 16 123/69 (87) 100 02/02/18 16:00 Simple Mask 5.0 02/02/18 16:00 88 02/02/18 16:00 98.5 85 16 112/66 (81) 100 98.5 02/02/18 15:35 Nasal Cannula 5.0 02/02/18 15:00 80 16 150/85 (106) 100 02/02/18 15:00 Nasal Cannula 02/02/18 14:00 75 16 136/66 (89) 100 02/02/18 13:00 78 16 140/52 (81) 100 02/02/18 12:00 97 02/02/18 12:00 66 16 243/186 (205) 100 02/02/18 12:00 Simple Mask 5.0 02/02/18 11:00 63 16 140/49 (79) 100 02/02/18 10:18 Simple Mask 5.0 02/02/18 10:00 98.7 71 16 110/59 (76) 100 98.7 02/02/18 09:36 98.4 78 24 117/74 98 Simple Mask 5.0 98.4 02/02/18 08:36 98.4 82 27 115/82 100 Simple Mask 5.0 98.4 02/02/18 07:45 106/46 02/02/18 07:00 98.6 88 23 134/106 95 Room Air 98.6 02/02/18 06:30 98.6 94 18 80/50 97 Room Air 98.6 Intake and Output 02/01/18 02/02/18 19:00 07:00 Output Total 0 ml Balance 0 ml Output Urine Total 0 ml Laboratory Tests Test 02/02/18 06:38 02/02/18 08:00 02/02/18 10:55 02/02/18 11:00 White Blood Count 15.8 K/UL (4.8-10.8) H Red Blood Count 4.41 M/UL (4.70-6.10) L Hemoglobin 12.8 G/DL (14.2-18.0) L Hematocrit 39.9 % (42.0-52.0) L Mean Corpuscular Volume 90 FL (80-99) Mean Corpuscular Hemoglobin 29.1 PG (27.0-31.0) Mean Corpuscular Hemoglobin Concent 32.2 G/DL (32.0-36.0) Red Cell Distribution Width 12.3 % (11.6-14.8) Platelet Count 369 K/UL (150-450) Mean Platelet Volume 4.8 FL (6.5-10.1) L Neutrophils (%) (Auto) % (45.0-75.0) Lymphocytes (%) (Auto) % (20.0-45.0) Monocytes (%) (Auto) % (1.0-10.0) Eosinophils (%) (Auto) % (0.0-3.0) Basophils (%) (Auto) % (0.0-2.0) Differential Total Cells Counted 100 Neutrophils % (Manual) 87 % (45-75) H Lymphocytes % (Manual) 7 % (20-45) L Monocytes % (Manual) 6 % (1-10) Eosinophils % (Manual) 0 % (0-3) Basophils % (Manual) 0 % (0-2) Band Neutrophils 0 % (0-8) Platelet Estimate Adequate Platelet Morphology Normal Red Blood Cell Morphology Normal Prothrombin Time 12.0 SEC (9.30-11.50) H Prothromb Time International Ratio 1.1 (0.9-1.1) Sodium Level 129 MMOL/L (136-145) L Potassium Level 8.7 MMOL/L (3.5-5.1) *H Chloride Level 97 MMOL/L (98-107) L Carbon Dioxide Level 22 MMOL/L (21-32) Anion Gap 9 mmol/L (5-15) Blood Urea Nitrogen 157 mg/dL (7-18) H Creatinine 7.9 MG/DL (0.55-1.30) H Estimat Glomerular Filtration Rate 8.4 mL/min (>60) Glucose Level 117 MG/DL (74-106) H Lactic Acid Level 2.00 mmol/L (0.4-2.0) Calcium Level 9.4 MG/DL (8.5-10.1) Total Bilirubin 0.9 MG/DL (0.2-1.0) Aspartate Amino Transf (AST/SGOT) 778 U/L (15-37) H Alanine Aminotransferase (ALT/SGPT) 182 U/L (12-78) H Alkaline Phosphatase 88 U/L (46-116) Total Creatine Kinase > 52638 U/L (26-308) H Troponin I 0.288 ng/mL (0.000-0.056) Total Protein 8.2 G/DL (6.4-8.2) Albumin 2.9 G/DL (3.4-5.0) L Globulin 5.3 g/dL Albumin/Globulin Ratio 0.5 (1.0-2.7) L Urine Color Yellow Urine Appearance Cloudy Urine pH 5 (4.5-8.0) Urine Specific [place] 1.020 (1.005-1.035) Urine Protein 2+ (NEGATIVE) H Urine Glucose (UA) Negative (NEGATIVE) Urine Ketones Negative (NEGATIVE) Urine Occult Blood 5+ (NEGATIVE) H Urine Nitrite Negative (NEGATIVE) Urine Bilirubin Negative (NEGATIVE) Urine Urobilinogen Normal MG/DL (0.0-1.0) Urine Leukocyte Esterase Negative (NEGATIVE) Urine RBC 5-10 /HPF (0 - 0) H Urine WBC 0-2 /HPF (0 - 0) Urine Squamous Epithelial Cells Occasional /LPF Urine Amorphous Sediment Moderate /LPF (NONE) H Urine Bacteria Occasional /HPF (NONE) Arterial Blood pH 7.335 (7.350-7.450) Arterial Blood Partial Pressure CO2 35.3 mmHg (35.0-45.0) Arterial Blood Partial Pressure O2 133.7 mmHg (75.0-100.0) H Arterial Blood HCO3 18.4 mmol/L (22.0-26.0) L Arterial Blood Oxygen Saturation 98.1 % (92.0-98.0) H Arterial Blood Base Excess -6.6 Trell Test Positive Urine Opiates Screen Positive (NEGATIVE) H Urine Barbiturates Screen Negative (NEGATIVE) Phencyclidine (PCP) Screen Negative (NEGATIVE) Urine Amphetamines Screen Negative (NEGATIVE) Urine Benzodiazepines Screen Negative (NEGATIVE) Urine Cocaine Screen Negative (NEGATIVE) Urine Marijuana (THC) Screen Negative (NEGATIVE) Test 02/02/18 12:00 02/02/18 16:10 02/02/18 19:00 White Blood Count 17.7 K/UL (4.8-10.8) H Red Blood Count 4.09 M/UL (4.70-6.10) L Hemoglobin 12.2 G/DL (14.2-18.0) L Hematocrit 36.9 % (42.0-52.0) L Mean Corpuscular Volume 90 FL (80-99) Mean Corpuscular Hemoglobin 29.9 PG (27.0-31.0) Mean Corpuscular Hemoglobin Concent 33.1 G/DL (32.0-36.0) Red Cell Distribution Width 12.2 % (11.6-14.8) Platelet Count 297 K/UL (150-450) Mean Platelet Volume 5.0 FL (6.5-10.1) L Neutrophils (%) (Auto) 81.0 % (45.0-75.0) H Lymphocytes (%) (Auto) 5.7 % (20.0-45.0) L Monocytes (%) (Auto) 12.3 % (1.0-10.0) H Eosinophils (%) (Auto) 0.0 % (0.0-3.0) Basophils (%) (Auto) 0.9 % (0.0-2.0) Sodium Level 134 MMOL/L (136-145) L Pending Potassium Level 7.6 MMOL/L (3.5-5.1) *H Pending Chloride Level 105 MMOL/L (98-107) Pending Carbon Dioxide Level 20 MMOL/L (21-32) L Pending Anion Gap 9 mmol/L (5-15) Blood Urea Nitrogen 135 mg/dL (7-18) H Pending Creatinine 6.3 MG/DL (0.55-1.30) H Pending Estimat Glomerular Filtration Rate 10.9 mL/min (>60) Pending Glucose Level 81 MG/DL (74-106) Pending Lactic Acid Level 1.20 mmol/L (0.66-2.22) Uric Acid 12.7 MG/DL (2.6-7.2) H Calcium Level 9.3 MG/DL (8.5-10.1) Pending Total Bilirubin 1.0 MG/DL (0.2-1.0) Pending Aspartate Amino Transf (AST/SGOT) 1684 U/L (15-37) H Pending Alanine Aminotransferase (ALT/SGPT) 313 U/L (12-78) H Pending Alkaline Phosphatase 73 U/L (46-116) Pending Total Creatine Kinase > 62177 U/L (26-308) H Troponin I 0.396 ng/mL (0.000-0.056) 0.946 ng/mL (0.000-0.056) Pending C-Reactive Protein, Quantitative 4.5 mg/dL (0.00-0.90) H Total Protein 6.9 G/DL (6.4-8.2) Pending Albumin 2.2 G/DL (3.4-5.0) L Pending Globulin 4.7 g/dL Pending Albumin/Globulin Ratio 0.5 (1.0-2.7) L Salicylates Level < 0.2 ug/mL (2.8-20) L Ammonia Pending Lipase Pending Microbiology Date/Time Source Procedure Growth Status 02/02/18 08:00 Rectum Received Height (Feet): 6 Height (Inches): 3.00 Weight (Pounds): 190 Medications Current Medications Medications (Trade) Dose Ordered Sig/Erlin Route PRN Reason Start Time Stop Time Status Last Admin Dose Admin Acetaminophen (Tylenol) 650 mg Q4H PRN ORAL Fever 02/02/18 12:30 03/04/18 12:29 Albuterol/ Ipratropium (Albuterol/ Ipratropium) 3 ml Q4H PRN HHN Shortness of Breath 02/02/18 12:30 02/07/18 12:29 Chlorhexidine Gluconate (Yari-Hex 2%) 1 applic DAILY@2000 TOPIC 02/02/18 20:00 03/04/18 19:59 Dextrose (Dextrose 50%) 25 ml PRN IV Hypoglycemia 02/02/18 13:00 03/04/18 12:59 Dextrose (Dextrose 50%) 50 ml PRN IV hypoglycemia 02/02/18 13:00 03/04/18 12:59 Dextrose/Sodium Chloride 1,000 ml @ 150 mls/hr Q6H40M IV 02/02/18 11:30 03/04/18 11:29 02/02/18 17:45 Dopamine HCl/ Dextrose 250 ml @ 0 mls/hr Q24H IV 02/02/18 12:00 03/04/18 11:59 Heparin Sodium (Porcine) (Heparin 5000 units/ml) 5,000 units EVERY 12 HOURS SUBQ 02/02/18 21:00 03/04/18 20:59 Nitroglycerin (Ntg) 1 patch Q24H TDERMAL 02/02/18 07:45 03/04/18 07:44 Ondansetron HCl (Zofran) 4 mg Q6H PRN IVP Nausea & Vomiting 02/02/18 12:30 03/04/18 12:29 Polyethylene Glycol (Miralax) 17 gm DAILYPRN PRN ORAL Constipation 02/02/18 12:30 03/04/18 12:29 Quetiapine Fumarate (SEROquel) 100 mg BEDTIME ORAL 02/02/18 21:00 03/04/18 20:59 Sodium Bicarbonate (Sodium Bicarbonate) 50 ml Q8H IV 02/02/18 12:00 02/03/18 04:01 02/02/18 12:00 Temazepam (Restoril) 15 mg HSPRN PRN ORAL Insomnia 02/02/18 12:30 02/09/18 12:29 Assessment/Plan Assessment/Plan encephalopathy bipolar I substance abuse d/o change seroquel standing to Julissa Post MD Feb 02, 2018 20:13
[2018-02-02 20:14] LABS: ALANINE AMINOTRANSFERASE 351 U/L (12-78); ALBUMIN/GLOBULIN RATIO 0.5 (1.0-2.7); ALKALINE PHOSPHATASE 73 U/L (46-116); ANION GAP 4 mmol/L (5-15); ASPARTATE AMINO TRANSFERASE 1700 U/L (15-37); BILIRUBIN,TOTAL 1.1 MG/DL (0.2-1.0); BLOOD UREA NITROGEN 76 mg/dL (7-18); CALCIUM 8.5 MG/DL (8.5-10.1); CARBON DIOXIDE 29 MMOL/L (21-32); CHLORIDE 103 MMOL/L (98-107); CREATININE 3.5 MG/DL (0.55-1.30); POTASSIUM 5.1 MMOL/L (3.5-5.1); SODIUM 136 MMOL/L (136-145)
[2018-02-02] MEDS: Dyna-Hex 2% Top Sol 2oz TOPIC SCH (20:17)
[2018-02-02 20:18] LABS: BILIRUBIN,DIRECT 0.6 MG/DL (0.0-0.3)
[2018-02-02 21:03] LABS: APPEARANCE,URINE CLOUDY; BILIRUBIN, URINE NEGATIVE (NEGATIVE); GLUCOSE, URINE (UA) NEGATIVE (NEGATIVE); KETONES,URINE NEGATIVE (NEGATIVE); LEUKOCYTE ESTERASE ,URINE 1+ (NEGATIVE); NITRITE,URINE NEGATIVE (NEGATIVE); PH,URINE 6.5 (4.5-8.0); PROTEIN,URINE 3+ (NEGATIVE); UROBILINOGEN,URINE 4 MG/DL (0.0-1.0)
[2018-02-02 21:09] LABS: COLOR,URINE BROWN
[2018-02-02] MEDS: Heparin 5000 units/ml inj SUBQ SCH (21:29)
--- NOTE | 2018-02-02 21:45 | Consultation ---
History of Present Illness General Date patient seen: Feb 02, 2018 Time patient seen: 21:35 Chief Complaint: Altered Level of Consciousness Present Illness HPI 67 year old male admitted for ALOC. Cardiology consulted for elevated troponin. He has a history of HTN, RLE chronic ulcer, HLD, Bipolar, CAD, CVA, Afib, substance abuse He was noted to be hyperkalemia, EKG with peaked T waves. Allergies: Coded Allergies: MILK (Verified Allergy, Unknown, 02/02/18) Uncoded Allergies: MILK PRODUCTS (Allergy, Unknown, 02/02/18) Medication History Scheduled Ascorbic Acid* (Vitamin C*), 500 MG ORAL DAILY, (Reported) Lisinopril* (Lisinopril*), 10 MG ORAL DAILY, (Reported) Mag Hydrox/Al Hydrox/Simeth (Alum-Mag Hydroxide-Simeth Liq), 30 ML PO EVERY 6 HOURS, (Reported) Magnesium Hydroxide* (Milk Of Magnesia*), 30 ML ORAL BEDTIME, (Reported) Metoprolol Succinate* (Metoprolol Succinate*), 50 MG ORAL EVERY 12 HOURS, ( Reported) Montelukast Sodium* (Montelukast Sodium*), 10 MG ORAL DAILY, (Reported) Multivitamin With Minerals (Multivitamins With Minerals*), 1 TAB ORAL DAILY, ( Reported) Pantoprazole* (Protonix*), 40 MG ORAL DAILY, (Reported) Quetiapine Fumarate* (Seroquel*), 100 MG ORAL BEDTIME, (Reported) Zinc Sulfate (Zinc Sulfate*), 220 MG ORAL DAILY, (Reported) Scheduled PRN Acetaminophen* (Acetaminophen 325MG Tablet*), 650 MG ORAL Q4H PRN for Mild Pain (Pain Scale 1-3), (Reported) Acetaminophen* (Acetaminophen 325MG Tablet*), 650 MG ORAL Q4H PRN for DANNY >101, (Reported) Patient History Healthcare decision maker Resuscitation status Full Code Advanced Directive on File Review of Systems Constitutional: Reports: malaise, weakness Eye: Reports: no symptoms ENT: Reports: no symptoms Respiratory: Reports: no symptoms Cardiovascular: Reports: no symptoms Gastrointestinal: Reports: no symptoms Genitourinary: Reports: no symptoms Musculoskeletal: Reports: no symptoms Skin: Reports: no symptoms Psychiatric: Reports: anxiety, emotional problems Neurological: Reports: syncope Endocrine: Reports: no symptoms Hematologic/Lymphatic: Reports: no symptoms Physical Exam General Appearance: lethargic, confused Lines, tubes and drains: peripheral HEENT: normocephalic, atraumatic, no JVD Neck: non-tender, normal alignment Respiratory/Chest: chest wall non-tender, lungs clear Cardiovascular/Chest: normal peripheral pulses, normal rate Abdomen: normal bowel sounds, non tender Extremities: normal range of motion, non-tender, normal inspection, inflammation, slow capillary refill, trace edema, other Skin Exam: mottled, rash Neurologic: scraper tender II-XII grossly normal Last 24 Hour Vital Signs Date Time Temp Pulse Resp B/P (MAP) Pulse Ox O2 Delivery O2 Flow Rate FiO2 02/02/18 19:00 88 16 122/71 (88) 100 02/02/18 18:00 90 16 114/85 (95) 100 02/02/18 17:19 Nasal Cannula 02/02/18 17:00 94 16 123/69 (87) 100 02/02/18 16:00 Simple Mask 5.0 02/02/18 16:00 88 02/02/18 16:00 98.5 85 16 112/66 (81) 100 98.5 02/02/18 15:35 Nasal Cannula 5.0 02/02/18 15:00 80 16 150/85 (106) 100 02/02/18 15:00 Nasal Cannula 02/02/18 14:00 75 16 136/66 (89) 100 02/02/18 13:00 78 16 140/52 (81) 100 02/02/18 12:00 97 02/02/18 12:00 66 16 243/186 (205) 100 02/02/18 12:00 Simple Mask 5.0 02/02/18 11:00 63 16 140/49 (79) 100 02/02/18 10:18 Simple Mask 5.0 02/02/18 10:00 98.7 71 16 110/59 (76) 100 98.7 02/02/18 09:36 98.4 78 24 117/74 98 Simple Mask 5.0 98.4 02/02/18 08:36 98.4 82 27 115/82 100 Simple Mask 5.0 98.4 02/02/18 07:45 106/46 02/02/18 07:00 98.6 88 23 134/106 95 Room Air 98.6 02/02/18 06:30 98.6 94 18 80/50 97 Room Air 98.6 Intake and Output 02/01/18 02/02/18 19:00 07:00 Output Total 0 ml Balance 0 ml Output Urine Total 0 ml Laboratory Tests Test 02/02/18 06:38 02/02/18 08:00 02/02/18 10:55 02/02/18 11:00 White Blood Count 15.8 K/UL (4.8-10.8) H Red Blood Count 4.41 M/UL (4.70-6.10) L Hemoglobin 12.8 G/DL (14.2-18.0) L Hematocrit 39.9 % (42.0-52.0) L Mean Corpuscular Volume 90 FL (80-99) Mean Corpuscular Hemoglobin 29.1 PG (27.0-31.0) Mean Corpuscular Hemoglobin Concent 32.2 G/DL (32.0-36.0) Red Cell Distribution Width 12.3 % (11.6-14.8) Platelet Count 369 K/UL (150-450) Mean Platelet Volume 4.8 FL (6.5-10.1) L Neutrophils (%) (Auto) % (45.0-75.0) Lymphocytes (%) (Auto) % (20.0-45.0) Monocytes (%) (Auto) % (1.0-10.0) Eosinophils (%) (Auto) % (0.0-3.0) Basophils (%) (Auto) % (0.0-2.0) Differential Total Cells Counted 100 Neutrophils % (Manual) 87 % (45-75) H Lymphocytes % (Manual) 7 % (20-45) L Monocytes % (Manual) 6 % (1-10) Eosinophils % (Manual) 0 % (0-3) Basophils % (Manual) 0 % (0-2) Band Neutrophils 0 % (0-8) Platelet Estimate Adequate Platelet Morphology Normal Red Blood Cell Morphology Normal Prothrombin Time 12.0 SEC (9.30-11.50) H Prothromb Time International Ratio 1.1 (0.9-1.1) Sodium Level 129 MMOL/L (136-145) L Potassium Level 8.7 MMOL/L (3.5-5.1) *H Chloride Level 97 MMOL/L (98-107) L Carbon Dioxide Level 22 MMOL/L (21-32) Anion Gap 9 mmol/L (5-15) Blood Urea Nitrogen 157 mg/dL (7-18) H Creatinine 7.9 MG/DL (0.55-1.30) H Estimat Glomerular Filtration Rate 8.4 mL/min (>60) Glucose Level 117 MG/DL (74-106) H Lactic Acid Level 2.00 mmol/L (0.4-2.0) Calcium Level 9.4 MG/DL (8.5-10.1) Total Bilirubin 0.9 MG/DL (0.2-1.0) Aspartate Amino Transf (AST/SGOT) 778 U/L (15-37) H Alanine Aminotransferase (ALT/SGPT) 182 U/L (12-78) H Alkaline Phosphatase 88 U/L (46-116) Total Creatine Kinase > 47305 U/L (26-308) H Troponin I 0.288 ng/mL (0.000-0.056) Total Protein 8.2 G/DL (6.4-8.2) Albumin 2.9 G/DL (3.4-5.0) L Globulin 5.3 g/dL Albumin/Globulin Ratio 0.5 (1.0-2.7) L Urine Color Yellow Urine Appearance Cloudy Urine pH 5 (4.5-8.0) Urine Specific [place] 1.020 (1.005-1.035) Urine Protein 2+ (NEGATIVE) H Urine Glucose (UA) Negative (NEGATIVE) Urine Ketones Negative (NEGATIVE) Urine Occult Blood 5+ (NEGATIVE) H Urine Nitrite Negative (NEGATIVE) Urine Bilirubin Negative (NEGATIVE) Urine Urobilinogen Normal MG/DL (0.0-1.0) Urine Leukocyte Esterase Negative (NEGATIVE) Urine RBC 5-10 /HPF (0 - 0) H Urine WBC 0-2 /HPF (0 - 0) Urine Squamous Epithelial Cells Occasional /LPF Urine Amorphous Sediment Moderate /LPF (NONE) H Urine Bacteria Occasional /HPF (NONE) Arterial Blood pH 7.335 (7.350-7.450) Arterial Blood Partial Pressure CO2 35.3 mmHg (35.0-45.0) Arterial Blood Partial Pressure O2 133.7 mmHg (75.0-100.0) H Arterial Blood HCO3 18.4 mmol/L (22.0-26.0) L Arterial Blood Oxygen Saturation 98.1 % (92.0-98.0) H Arterial Blood Base Excess -6.6 Trell Test Positive Urine Opiates Screen Positive (NEGATIVE) H Urine Barbiturates Screen Negative (NEGATIVE) Phencyclidine (PCP) Screen Negative (NEGATIVE) Urine Amphetamines Screen Negative (NEGATIVE) Urine Benzodiazepines Screen Negative (NEGATIVE) Urine Cocaine Screen Negative (NEGATIVE) Urine Marijuana (THC) Screen Negative (NEGATIVE) Test 02/02/18 12:00 02/02/18 16:10 02/02/18 19:00 02/02/18 20:30 White Blood Count 17.7 K/UL (4.8-10.8) H Red Blood Count 4.09 M/UL (4.70-6.10) L Hemoglobin 12.2 G/DL (14.2-18.0) L Hematocrit 36.9 % (42.0-52.0) L Mean Corpuscular Volume 90 FL (80-99) Mean Corpuscular Hemoglobin 29.9 PG (27.0-31.0) Mean Corpuscular Hemoglobin Concent 33.1 G/DL (32.0-36.0) Red Cell Distribution Width 12.2 % (11.6-14.8) Platelet Count 297 K/UL (150-450) Mean Platelet Volume 5.0 FL (6.5-10.1) L Neutrophils (%) (Auto) 81.0 % (45.0-75.0) H Lymphocytes (%) (Auto) 5.7 % (20.0-45.0) L Monocytes (%) (Auto) 12.3 % (1.0-10.0) H Eosinophils (%) (Auto) 0.0 % (0.0-3.0) Basophils (%) (Auto) 0.9 % (0.0-2.0) Sodium Level 134 MMOL/L (136-145) L 136 MMOL/L (136-145) Potassium Level 7.6 MMOL/L (3.5-5.1) *H 5.1 MMOL/L (3.5-5.1) Chloride Level 105 MMOL/L (98-107) 103 MMOL/L (98-107) Carbon Dioxide Level 20 MMOL/L (21-32) L 29 MMOL/L (21-32) Anion Gap 9 mmol/L (5-15) 4 mmol/L (5-15) L Blood Urea Nitrogen 135 mg/dL (7-18) H 76 mg/dL (7-18) H Creatinine 6.3 MG/DL (0.55-1.30) H 3.5 MG/DL (0.55-1.30) H Estimat Glomerular Filtration Rate 10.9 mL/min (>60) 21.5 mL/min (>60) Glucose Level 81 MG/DL (74-106) 149 MG/DL (74-106) H Lactic Acid Level 1.20 mmol/L (0.66-2.22) Uric Acid 12.7 MG/DL (2.6-7.2) H Calcium Level 9.3 MG/DL (8.5-10.1) 8.5 MG/DL (8.5-10.1) Total Bilirubin 1.0 MG/DL (0.2-1.0) 1.1 MG/DL (0.2-1.0) H Aspartate Amino Transf (AST/SGOT) 1684 U/L (15-37) H 1700 U/L (15-37) H Alanine Aminotransferase (ALT/SGPT) 313 U/L (12-78) H 351 U/L (12-78) H Alkaline Phosphatase 73 U/L (46-116) 73 U/L (46-116) Total Creatine Kinase > 08680 U/L (26-308) H Troponin I 0.396 ng/mL (0.000-0.056) 0.946 ng/mL (0.000-0.056) 0.800 ng/mL (0.000-0.056) C-Reactive Protein, Quantitative 4.5 mg/dL (0.00-0.90) H Total Protein 6.9 G/DL (6.4-8.2) 6.4 G/DL (6.4-8.2) Albumin 2.2 G/DL (3.4-5.0) L 2.0 G/DL (3.4-5.0) L Globulin 4.7 g/dL 4.4 g/dL Albumin/Globulin Ratio 0.5 (1.0-2.7) L 0.5 (1.0-2.7) L Salicylates Level < 0.2 ug/mL (2.8-20) L Direct Bilirubin 0.6 MG/DL (0.0-0.3) H Ammonia < 10 umol/L (11-32) L Lipase 264 U/L (73-393) Urine Color Brown Urine Appearance Cloudy Urine pH 6.5 (4.5-8.0) Urine Specific [place] 1.010 (1.005-1.035) Urine Protein 3+ (NEGATIVE) H Urine Glucose (UA) Negative (NEGATIVE) Urine Ketones Negative (NEGATIVE) Urine Occult Blood 5+ (NEGATIVE) H Urine Nitrite Negative (NEGATIVE) Urine Bilirubin Negative (NEGATIVE) Urine Urobilinogen 4 MG/DL (0.0-1.0) H Urine Leukocyte Esterase 1+ (NEGATIVE) H Urine RBC 5-10 /HPF (0 - 0) H Urine WBC 2-4 /HPF (0 - 0) Urine Squamous Epithelial Cells Few /LPF (NONE/OCC) Urine Amorphous Sediment Many /LPF (NONE) H Urine Bacteria Many /HPF (NONE) H Urine Eosinophils Pending Urine Random Sodium < 20 mmol/L (20-110) L Urine Potassium Timed 64 mmol/L (12-62) H Microbiology Date/Time Source Procedure Growth Status 02/02/18 08:00 Rectum Received Height (Feet): 6 Height (Inches): 3.00 Weight (Pounds): 190 Medications Current Medications Medications (Trade) Dose Ordered Sig/Erlin Route PRN Reason Start Time Stop Time Status Last Admin Dose Admin Acetaminophen (Tylenol) 650 mg Q4H PRN ORAL Mild Pain/Temp > 100.5 02/02/18 20:30 03/04/18 12:29 02/02/18 20:45 Albuterol Sulfate (Proventil) 2.5 mg Q4HRT HHN 02/02/18 23:00 02/03/18 22:59 Albuterol/ Ipratropium (Albuterol/ Ipratropium) 3 ml Q4H PRN HHN Shortness of Breath 02/02/18 12:30 02/07/18 12:29 Chlorhexidine Gluconate (Yari-Hex 2%) 1 applic DAILY@1999 TOPIC 02/02/18 20:00 03/04/18 19:59 02/02/18 20:17 Dextrose (Dextrose 50%) 25 ml PRN IV Hypoglycemia 02/02/18 13:00 03/04/18 12:59 Dextrose (Dextrose 50%) 50 ml PRN IV hypoglycemia 02/02/18 13:00 03/04/18 12:59 Dextrose/Sodium Chloride 1,000 ml @ 150 mls/hr Q6H40M IV 02/02/18 11:30 03/04/18 11:29 02/02/18 17:45 Dopamine HCl/ Dextrose 250 ml @ 0 mls/hr Q24H IV 02/02/18 12:00 03/04/18 11:59 Furosemide (Lasix) 20 mg ONCE IV 02/02/18 21:14 02/02/18 22:14 Heparin Sodium (Porcine) (Heparin 5000 units/ml) 5,000 units EVERY 12 HOURS SUBQ 02/02/18 21:00 03/04/18 20:59 02/02/18 21:29 Insulin Human Regular (NovoLIN R) 5 units ONCE ONCE IV 02/02/18 22:00 02/02/18 22:01 Nitroglycerin (Ntg) 1 patch Q24H TDERMAL 02/02/18 07:45 03/04/18 07:44 Ondansetron HCl (Zofran) 4 mg Q6H PRN IVP Nausea & Vomiting 02/02/18 12:30 03/04/18 12:29 Polyethylene Glycol (Miralax) 17 gm DAILYPRN PRN ORAL Constipation 02/02/18 12:30 03/04/18 12:29 Quetiapine Fumarate (SEROquel) 100 mg BEDTIME ORAL 02/02/18 21:00 03/04/18 20:59 02/02/18 21:28 Quetiapine Fumarate (SEROquel) 100 mg Q6H PRN ORAL anxiety 02/02/18 20:17 03/04/18 20:16 Sodium Bicarbonate (Sodium Bicarbonate) 50 ml Q8H IV 02/02/18 12:00 02/03/18 04:01 02/02/18 21:29 Temazepam (Restoril) 15 mg HSPRN PRN ORAL Insomnia 02/02/18 12:30 02/09/18 12:29 Assessment/Plan Status: stable Assessment/Plan Assessment Right leg ulcer ALBERTO Rhabdomyolysis Hyperkalemia Bradycardia Encephalopathy Elevated troponin Plan: Urgent dialysis Renal US Echocardiogram - preserved systolic function, no wall motion abnormalities Trend troponin - coming down Monitor LFT, Abdominal US showed biliary sludge Monitor electrolytes, currently hypokalemia - will treat accordingly Stress test when stable given elevated troponin and hx of CAD Start aspirin Hold statin given elevated LFT Vinny Tobin M.D. Feb 02, 2018 21:45
[2018-02-02] MEDS: Albuterol ud Inhalation HHN SCH (23:13)
[2018-02-03] VITALS (87 sets, daily range): BP systolic 31–142; BP diastolic 44–103
[2018-02-03] MEDS: D5NS 1,000 ML IV SCH ×4 (00:16→17:08)
[2018-02-03] MEDS ORDERED: Levophed 4mg/4mL Inj IV ONE (00:49)
[2018-02-03] MEDS: Albuterol ud Inhalation HHN SCH (03:19)
[2018-02-03 07:25] LABS: BASOPHILS % (AUTO) 0.3 % (0.0-2.0); HEMATOCRIT 35.4 % (42.0-52.0); HEMOGLOBIN 11.6 G/DL (14.2-18.0); LYMPHOCYTES % (AUTO) 7.6 % (20.0-45.0); MEAN CORPUSCULAR VOLUME 91 FL (80-99); MONOCYTES % (AUTO) 10.3 % (1.0-10.0); NEUTROPHILS % (AUTO) 81.7 % (45.0-75.0); PLATELET COUNT 218 K/UL (150-450); RED BLOOD COUNT 3.88 M/UL (4.70-6.10); RED CELL DISTRIBUTION WIDTH 12.3 % (11.6-14.8); WHITE BLOOD COUNT 17.3 K/UL (4.8-10.8)
[2018-02-03 08:26] LABS: ALANINE AMINOTRANSFERASE 381 U/L (12-78); ALBUMIN/GLOBULIN RATIO 0.4 (1.0-2.7); ALKALINE PHOSPHATASE 75 U/L (46-116); ANION GAP 3 mmol/L (5-15); ASPARTATE AMINO TRANSFERASE 1622 U/L (15-37); BILIRUBIN,TOTAL 0.8 MG/DL (0.2-1.0); BLOOD UREA NITROGEN 68 mg/dL (7-18); CALCIUM 8.6 MG/DL (8.5-10.1); CARBON DIOXIDE 30 MMOL/L (21-32); CHLORIDE 105 MMOL/L (98-107); CREATINE KINASE > 10000 U/L (26-308); GAMMA GLUTAMYL TRANSPEPTIDASE 193 U/L (5-85); PHOSPHORUS 4.4 MG/DL (2.5-4.9); POTASSIUM 4.6 MMOL/L (3.5-5.1); SODIUM 138 MMOL/L (136-145)
[2018-02-03 08:29] LABS: ANION GAP 5 mmol/L (5-15); BLOOD UREA NITROGEN 69 mg/dL (7-18); CALCIUM 8.7 MG/DL (8.5-10.1); CARBON DIOXIDE 30 MMOL/L (21-32); CHLORIDE 105 MMOL/L (98-107); PHOSPHORUS 4.6 MG/DL (2.5-4.9); POTASSIUM 4.6 MMOL/L (3.5-5.1); SODIUM 140 MMOL/L (136-145)
[2018-02-03] MEDS: Nitroglycerin Patch 0.2mg/hr TDERMAL SCH (08:56)
[2018-02-03] MEDS: Heparin 5000 units/ml inj SUBQ SCH ×2 (09:01→21:08)
--- NOTE | 2018-02-03 09:31 | Nephrology Progress Note ---
Assessment/Plan Problem List: (1) Acute kidney failure (2) Hyperkalemia (3) Rhabdomyolysis (4) Drug abuse (5) Metabolic encephalopathy (6) Shock liver Assessment Acute Renal Failure- Rhabdo Severe HyperKalemia Low BP urinary out let obstruction shock liver Plan dialysed yesterday- IV fluid- start PO St eval discussed with RN Avoid nephrotoxics Subjective ROS Limited/Unobtainable: No Constitutional: Reports: malaise, weakness, other - hungry Objective Objective Last 24 Hour Vital Signs Date Time Temp Pulse Resp B/P (MAP) Pulse Ox O2 Delivery O2 Flow Rate FiO2 02/03/18 08:56 99/62 02/03/18 08:02 87 18 Nasal Cannula 2.0 28 02/03/18 08:02 Nasal Cannula 2.0 28 02/03/18 08:02 100 Nasal Cannula 2.0 28 02/03/18 07:00 91 18 98/62 (74) 100 02/03/18 06:30 84 16 127/65 (85) 100 02/03/18 06:00 86 16 119/73 (88) 100 02/03/18 06:00 119/73 02/03/18 05:45 86 17 119/73 (88) 100 02/03/18 05:30 86 16 103/70 (81) 100 02/03/18 05:15 89 19 103/71 (82) 99 02/03/18 05:07 87/56 02/03/18 05:00 89 19 84/56 (65) 100 02/03/18 04:45 90 20 84/56 (65) 100 02/03/18 04:30 89 20 114/58 (76) 100 02/03/18 04:00 141/69 02/03/18 04:00 97.9 86 17 141/69 (93) 100 97.9 02/03/18 04:00 Nasal Cannula 2.0 02/03/18 04:00 85 02/03/18 03:30 86 16 98/66 (77) 100 02/03/18 03:19 88 18 99 Nasal Cannula 2.0 28 02/03/18 03:19 90 18 100 Nasal Cannula 2.0 28 02/03/18 03:00 89 16 140/61 (87) 100 02/03/18 03:00 87/64 02/03/18 02:30 82 16 140/61 (87) 100 02/03/18 02:15 82 16 100/62 (75) 100 02/03/18 02:00 100/62 02/03/18 02:00 80 16 94/54 (67) 100 02/03/18 01:45 84 16 107/65 (79) 100 02/03/18 01:30 85 16 99/67 (78) 100 02/03/18 01:15 86 15 119/61 (80) 100 02/03/18 01:01 80/59 02/03/18 01:00 91 17 93/67 (76) 100 02/03/18 01:00 73/49 02/03/18 00:45 124 18 73/49 (57) 100 02/03/18 00:30 125 16 81/55 (64) 100 02/03/18 00:15 119 16 81/55 (64) 100 02/03/18 00:00 98.7 116 15 73/44 (54) 100 98.7 02/03/18 00:00 73/44 02/03/18 00:00 Nasal Cannula 2.0 02/03/18 00:00 80 02/02/18 23:45 100 16 84/41 (55) 100 02/02/18 23:30 90 17 75/47 (56) 100 02/02/18 23:27 76/45 02/02/18 23:17 95 18 100 Nasal Cannula 2.0 28 02/02/18 23:15 93 19 76/45 (55) 100 02/02/18 23:10 90 18 98 Nasal Cannula 2.0 28 02/02/18 23:00 93 19 82/50 (61) 100 02/02/18 22:00 90 18 Nasal Cannula 2.0 28 02/02/18 22:00 99 17 100/38 (58) 100 02/02/18 21:00 98 Nasal Cannula 2.0 28 02/02/18 21:00 79 19 105/52 (69) 100 02/02/18 21:00 Nasal Cannula 2.0 28 02/02/18 20:00 88 02/02/18 20:00 98.3 80 17 95/83 (87) 99 98.3 02/02/18 20:00 Simple Mask 5.0 02/02/18 19:00 88 16 122/71 (88) 100 02/02/18 18:00 90 16 114/85 (95) 100 02/02/18 17:19 Nasal Cannula 02/02/18 17:00 94 16 123/69 (87) 100 02/02/18 16:00 Simple Mask 5.0 02/02/18 16:00 88 02/02/18 16:00 98.5 85 16 112/66 (81) 100 98.5 02/02/18 15:35 Nasal Cannula 5.0 02/02/18 15:00 80 16 150/85 (106) 100 02/02/18 15:00 Nasal Cannula 02/02/18 14:00 75 16 136/66 (89) 100 02/02/18 13:00 78 16 140/52 (81) 100 02/02/18 12:00 97 02/02/18 12:00 66 16 243/186 (205) 100 02/02/18 12:00 Simple Mask 5.0 02/02/18 11:00 63 16 140/49 (79) 100 02/02/18 10:18 Simple Mask 5.0 02/02/18 10:00 98.7 71 16 110/59 (76) 100 98.7 02/02/18 09:36 98.4 78 24 117/74 98 Simple Mask 5.0 98.4 Intake and Output 02/02/18 02/03/18 19:00 07:00 Intake Total 1050 ml 1854.819 ml Output Total 1620 ml 1350 ml Balance -570 ml 504.819 ml Intake IV Total 1050 ml 1854.819 ml Output Urine Total 1620 ml 1350 ml Hemodialysis UF 0 ml Laboratory Tests 02/02/18 10:55: Arterial Blood pH 7.335L, Arterial Blood Partial Pressure CO2 35.3, Arterial Blood Partial Pressure O2 133.7H, Arterial Blood HCO3 18.4L, Arterial Blood Oxygen Saturation 98.1H, Arterial Blood Base Excess -6.6, Trell Test Positive 02/02/18 11:00: Urine Opiates Screen PositiveH, Urine Barbiturates Screen Negative, Phencyclidine (PCP) Screen Negative, Urine Amphetamines Screen Negative, Urine Benzodiazepines Screen Negative, Urine Cocaine Screen Negative, Urine Marijuana (THC) Screen Negative 02/02/18 12:00: White Blood Count 17.7H, Red Blood Count 4.09L, Hemoglobin 12.2L, Hematocrit 36.9L, Mean Corpuscular Volume 90, Mean Corpuscular Hemoglobin 29.9, Mean Corpuscular Hemoglobin Concent 33.1, Red Cell Distribution Width 12.2, Platelet Count 297, Mean Platelet Volume 5.0L, Neutrophils (%) (Auto) 81.0H, Lymphocytes (%) (Auto) 5.7L, Monocytes (%) (Auto) 12.3H, Eosinophils (%) (Auto) 0.0, Basophils (%) (Auto) 0.9, Sodium Level 134L, Potassium Level 7.6*H, Chloride Level 105, Carbon Dioxide Level 20L, Anion Gap 9, Blood Urea Nitrogen 135H, Creatinine 6.3H, Estimat Glomerular Filtration Rate 10.9, Glucose Level 81, Lactic Acid Level 1.20, Uric Acid 12.7H, Calcium Level 9.3, Total Bilirubin 1.0 , Aspartate Amino Transf (AST/SGOT) 1684H, Alanine Aminotransferase (ALT/SGPT) 313H, Alkaline Phosphatase 73, Total Creatine Kinase > [id number], Troponin I 0.396H , C-Reactive Protein, Quantitative 4.5H, Total Protein 6.9, Albumin 2.2L, Globulin 4.7, Albumin/Globulin Ratio 0.5L, Salicylates Level < 0.2L 02/02/18 16:10: Troponin I 0.946H 02/02/18 19:00: Sodium Level 136, Potassium Level 5.1, Chloride Level 103, Carbon Dioxide Level 29, Anion Gap 4L, Blood Urea Nitrogen 76H, Creatinine 3.5H, Estimat Glomerular Filtration Rate 21.5, Glucose Level 149H, Calcium Level 8.5, Total Bilirubin 1.1H, Direct Bilirubin 0.6H, Aspartate Amino Transf (AST/SGOT) 1700H, Alanine Aminotransferase (ALT/SGPT) 351H, Alkaline Phosphatase 73, Ammonia < 10L, Troponin I 0.800H, Total Protein 6.4, Albumin 2.0L, Globulin 4.4, Albumin/ Globulin Ratio 0.5L, Lipase 264 02/02/18 20:30: Urine Color Brown, Urine Appearance Cloudy, Urine pH 6.5, Urine Specific [place] 1.010, Urine Protein 3+H, Urine Glucose (UA) Negative, Urine Ketones Negative, Urine Occult Blood 5+H, Urine Nitrite Negative, Urine Bilirubin Negative, Urine Urobilinogen 4H, Urine Leukocyte Esterase 1+H, Urine RBC 5-10H, Urine WBC 2-4, Urine Squamous Epithelial Cells Few, Urine Amorphous Sediment ManyH, Urine Bacteria ManyH, Urine Eosinophils None seen, Urine Random Sodium < 20L, Urine Potassium Timed 64H 02/03/18 05:50: Sodium Level 140, Potassium Level 4.6, Chloride Level 105, Carbon Dioxide Level 30, Anion Gap 5, Blood Urea Nitrogen 69H, Creatinine 3.0H, Estimat Glomerular Filtration Rate 25.6, Glucose Level 175H, Calcium Level 8.7, Total Bilirubin 0.8 , Aspartate Amino Transf (AST/SGOT) 1622H, Alanine Aminotransferase (ALT/SGPT) 381H, Alkaline Phosphatase 75, Troponin I 0.757H, Total Protein 6.5, Albumin 2.0L, Globulin 4.5, Albumin/Globulin Ratio 0.4L, White Blood Count 17.3H, Red Blood Count 3.88L, Hemoglobin 11.6L, Hematocrit 35.4L, Mean Corpuscular Volume 91, Mean Corpuscular Hemoglobin 29.9, Mean Corpuscular Hemoglobin Concent 32.8, Red Cell Distribution Width 12.3, Platelet Count 218, Mean Platelet Volume 5.6L , Neutrophils (%) (Auto) 81.7H, Lymphocytes (%) (Auto) 7.6L, Monocytes (%) (Auto ) 10.3H, Eosinophils (%) (Auto) 0.0, Basophils (%) (Auto) 0.3, Hemoglobin A1c 6.1H, Uric Acid 8.1H, Phosphorus Level 4.6, Magnesium Level 2.0, Gamma Glutamyl Transpeptidase 193H, Total Creatine Kinase > 96343Q, Pro-B-Type Natriuretic Peptide 1317H, Thyroid Stimulating Hormone (TSH) 0.360, Hepatitis A IgM Antibody [Pending], Hepatitis A Antibody Total [Pending], Hepatitis B Surface Antigen [Pending], Hepatitis B Surface Antibody [Pending], Hepatitis B Core Total Antibody [Pending], Hepatitis B Core IgM Antibody [Pending], Hepatitis C Antibody [Pending], HIV-1 RNA (PCR) log10 Value [Pending], HIV-1 RNA Ultraquantitative (PCR) [Pending], HIV (1&2) Antibody Rapid Negative Height (Feet): 6 Height (Inches): 3.00 Weight (Pounds): 174 General Appearance: no apparent distress, lethargic, other - more responsive Cardiovascular: tachycardia Respiratory/Chest: decreased breath sounds Abdomen: soft Genitourinary/Rectal: other - orozco Objective no other change Ruy Colvin MD Feb 03, 2018 09:31
--- NOTE | 2018-02-03 12:33 | Pulmonolgy Critical Care Note ---
Critical Care - Asmt/Plan Problems: (1) Metabolic encephalopathy (2) Bipolar 1 disorder (3) CVA (cerebral vascular accident) (4) HTN (hypertension) (5) CAD (coronary artery disease) (6) NSTEMI (non-ST elevated myocardial infarction) (7) Acute kidney failure (8) Hyperkalemia (9) Rhabdomyolysis Respiratory: monitor respiratory rate, adjust FIO2 Cardiac: continue to monitor HR/BP Renal: F/U I&O, keep IV fluid Infectious Disease: check cultures Gastrointestinal: continue feedings/current rate Endocrine: monitor blood sugar, continue sliding scale insulin Hematologic: transfuse if hgb<8.5 Neurologic: keep patient comfortable Time Spent (Minutes): 40 Notes Reviewed: custom tailor, renal Discussed with: nurses, consultants, case linermanager store - Objective Last 24 Hour Vital Signs Date Time Temp Pulse Resp B/P (MAP) Pulse Ox O2 Delivery O2 Flow Rate FiO2 02/03/18 12:17 123/74 02/03/18 12:00 98.9 98 16 138/95 (109) 100 98.9 02/03/18 11:45 97 16 110/65 (80) 100 02/03/18 11:30 96 16 127/82 (97) 100 02/03/18 11:15 89 16 104/57 (73) 100 02/03/18 11:00 83 16 131/66 (87) 100 02/03/18 10:45 91 16 118/75 (89) 100 02/03/18 10:30 97 16 129/56 (80) 100 02/03/18 10:15 97 19 121/53 (75) 100 02/03/18 10:00 97 18 99/60 (73) 100 02/03/18 09:45 97 19 105/72 (83) 100 02/03/18 09:30 93 19 93/55 (68) 100 02/03/18 09:15 91 19 94/63 (73) 100 02/03/18 09:00 95 19 86/62 (70) 100 02/03/18 08:56 99/62 02/03/18 08:45 95 19 86/50 (62) 100 02/03/18 08:30 102 18 108/48 (68) 100 02/03/18 08:15 94 15 116/63 (80) 100 02/03/18 08:02 87 18 Nasal Cannula 2.0 28 02/03/18 08:02 Nasal Cannula 2.0 28 02/03/18 08:02 100 Nasal Cannula 2.0 28 02/03/18 08:00 94 02/03/18 08:00 Nasal Cannula 2.0 18 08:00 98.9 97 17 100/53 (69) 100 98.9 02/03/18 07:00 91 18 98/62 (74) 100 02/03/18 06:30 84 16 127/65 (85) 100 18 06:00 86 16 119/73 (88) 100 18 06:00 119/73 02/03/18 05:45 86 17 119/73 (88) 100 02/03/18 05:30 86 16 103/70 (81) 100 02/03/18 05:15 89 19 103/71 (82) 99 02/03/18 05:07 87/56 02/03/18 05:00 89 19 84/56 (65) 100 02/03/18 04:45 90 20 84/56 (65) 100 02/03/18 04:30 89 20 114/58 (76) 100 18 04:00 141/69 02/03/18 04:00 97.9 86 17 141/69 (93) 100 97.9 02/03/18 04:00 Nasal Cannula 2.0 02/03/18 04:00 85 02/03/18 03:30 86 16 98/66 (77) 100 02/03/18 03:19 88 18 99 Nasal Cannula 2.0 28 02/03/18 03:19 90 18 100 Nasal Cannula 2.0 28 02/03/18 03:00 89 16 140/61 (87) 100 18 03:00 87/64 02/03/18 02:30 82 16 140/61 (87) 100 18 02:15 82 16 100/62 (75) 100 18 02:00 100/62 18 02:00 80 16 94/54 (67) 100 02/03/18 01:45 84 16 107/65 (79) 100 18 01:30 85 16 99/67 (78) 100 18 01:15 86 15 119/61 (80) 100 02/03/18 01:01 80/59 02/03/18 01:00 91 17 93/67 (76) 100 02/03/18 01:00 73/49 02/03/18 00:45 124 18 73/49 (57) 100 02/03/18 00:30 125 16 81/55 (64) 100 02/03/18 00:15 119 16 81/55 (64) 100 02/03/18 00:00 98.7 116 15 73/44 (54) 100 98.7 02/03/18 00:00 73/44 02/03/18 00:00 Nasal Cannula 2.0 02/03/18 00:00 80 02/02/18 23:45 100 16 84/41 (55) 100 02/02/18 23:30 90 17 75/47 (56) 100 02/02/18 23:27 76/45 02/02/18 23:17 95 18 100 Nasal Cannula 2.0 28 02/02/18 23:15 93 19 76/45 (55) 100 02/02/18 23:10 90 18 98 Nasal Cannula 2.0 28 02/02/18 23:00 93 19 82/50 (61) 100 02/02/18 22:00 90 18 Nasal Cannula 2.0 28 02/02/18 22:00 99 17 100/38 (58) 100 02/02/18 21:00 98 Nasal Cannula 2.0 28 02/02/18 21:00 79 19 105/52 (69) 100 02/02/18 21:00 Nasal Cannula 2.0 28 02/02/18 20:00 88 02/02/18 20:00 98.3 80 17 95/83 (87) 99 98.3 02/02/18 20:00 Simple Mask 5.0 02/02/18 19:00 88 16 122/71 (88) 100 02/02/18 18:00 90 16 114/85 (95) 100 02/02/18 17:19 Nasal Cannula 02/02/18 17:00 94 16 123/69 (87) 100 02/02/18 16:00 Simple Mask 5.0 02/02/18 16:00 88 02/02/18 16:00 98.5 85 16 112/66 (81) 100 98.5 02/02/18 15:35 Nasal Cannula 5.0 02/02/18 15:00 80 16 150/85 (106) 100 02/02/18 15:00 Nasal Cannula 02/02/18 14:00 75 16 136/66 (89) 100 02/02/18 13:00 78 16 140/52 (81) 100 Status: awake Condition: critical Neck: full ROM Lungs: chest wall tender Heart: HR/BP stable Abdomen: soft, non-tender, active bowel sounds, feeding tube Decubiti: location Micro: Microbiology Date/Time Source Procedure Growth Status 02/02/18 20:30 Urine,Clean Catch Urine Culture - Preliminary NO GROWTH Resulted 02/02/18 08:00 Rectum Received Accucheck: 156 Critical Care - Subjective ROS Limited/Unobtainable: No Condition: critical EKG Rhythm: Sinus Rhythm FI02: 28 Sputum Amount: None I&O: Intake and Output 02/02/18 02/03/18 19:00 07:00 Intake Total 1050 ml 1854.819 ml Output Total 1620 ml 1350 ml Balance -570 ml 504.819 ml IV Total 1050 ml 1854.819 ml Output Urine Total 1620 ml 1350 ml Hemodialysis UF 0 ml CXR: clear Labs: Laboratory Tests Test 02/02/18 16:10 02/02/18 19:00 02/02/18 20:30 02/03/18 05:50 Troponin I 0.946 ng/mL (0.000-0.056) 0.800 ng/mL (0.000-0.056) 0.757 ng/mL (0.000-0.056) Sodium Level 136 MMOL/L (136-145) 140 MMOL/L (136-145) Potassium Level 5.1 MMOL/L (3.5-5.1) 4.6 MMOL/L (3.5-5.1) Chloride Level 103 MMOL/L (98-107) 105 MMOL/L (98-107) Carbon Dioxide Level 29 MMOL/L (21-32) 30 MMOL/L (21-32) Anion Gap 4 mmol/L (5-15) L 5 mmol/L (5-15) Blood Urea Nitrogen 76 mg/dL (7-18) H 69 mg/dL (7-18) H Creatinine 3.5 MG/DL (0.55-1.30) H 3.0 MG/DL (0.55-1.30) H Estimat Glomerular Filtration Rate 21.5 mL/min (>60) 25.6 mL/min (>60) Glucose Level 149 MG/DL (74-106) H 175 MG/DL (74-106) H Calcium Level 8.5 MG/DL (8.5-10.1) 8.7 MG/DL (8.5-10.1) Total Bilirubin 1.1 MG/DL (0.2-1.0) H 0.8 MG/DL (0.2-1.0) Direct Bilirubin 0.6 MG/DL (0.0-0.3) H Aspartate Amino Transf (AST/SGOT) 1700 U/L (15-37) H 1622 U/L (15-37) H Alanine Aminotransferase (ALT/SGPT) 351 U/L (12-78) H 381 U/L (12-78) H Alkaline Phosphatase 73 U/L (46-116) 75 U/L (46-116) Ammonia < 10 umol/L (11-32) L Total Protein 6.4 G/DL (6.4-8.2) 6.5 G/DL (6.4-8.2) Albumin 2.0 G/DL (3.4-5.0) L 2.0 G/DL (3.4-5.0) L Globulin 4.4 g/dL 4.5 g/dL Albumin/Globulin Ratio 0.5 (1.0-2.7) L 0.4 (1.0-2.7) L Lipase 264 U/L (73-393) Urine Color Brown Urine Appearance Cloudy Urine pH 6.5 (4.5-8.0) Urine Specific [place] 1.010 (1.005-1.035) Urine Protein 3+ (NEGATIVE) H Urine Glucose (UA) Negative (NEGATIVE) Urine Ketones Negative (NEGATIVE) Urine Occult Blood 5+ (NEGATIVE) H Urine Nitrite Negative (NEGATIVE) Urine Bilirubin Negative (NEGATIVE) Urine Urobilinogen 4 MG/DL (0.0-1.0) H Urine Leukocyte Esterase 1+ (NEGATIVE) H Urine RBC 5-10 /HPF (0 - 0) H Urine WBC 2-4 /HPF (0 - 0) Urine Squamous Epithelial Cells Few /LPF (NONE/OCC) Urine Amorphous Sediment Many /LPF (NONE) H Urine Bacteria Many /HPF (NONE) H Urine Eosinophils None seen (NONE SEEN) Urine Random Sodium < 20 mmol/L (20-110) L Urine Potassium Timed 64 mmol/L (12-62) H White Blood Count 17.3 K/UL (4.8-10.8) H Red Blood Count 3.88 M/UL (4.70-6.10) L Hemoglobin 11.6 G/DL (14.2-18.0) L Hematocrit 35.4 % (42.0-52.0) L Mean Corpuscular Volume 91 FL (80-99) Mean Corpuscular Hemoglobin 29.9 PG (27.0-31.0) Mean Corpuscular Hemoglobin Concent 32.8 G/DL (32.0-36.0) Red Cell Distribution Width 12.3 % (11.6-14.8) Platelet Count 218 K/UL (150-450) Mean Platelet Volume 5.6 FL (6.5-10.1) L Neutrophils (%) (Auto) 81.7 % (45.0-75.0) H Lymphocytes (%) (Auto) 7.6 % (20.0-45.0) L Monocytes (%) (Auto) 10.3 % (1.0-10.0) H Eosinophils (%) (Auto) 0.0 % (0.0-3.0) Basophils (%) (Auto) 0.3 % (0.0-2.0) Hemoglobin A1c 6.1 % (4.3-6.0) H Uric Acid 8.1 MG/DL (2.6-7.2) H Phosphorus Level 4.6 MG/DL (2.5-4.9) Magnesium Level 2.0 MG/DL (1.8-2.4) Gamma Glutamyl Transpeptidase 193 U/L (5-85) H Total Creatine Kinase > 54959 U/L (26-308) H Pro-B-Type Natriuretic Peptide 1317 pg/mL (0-125) H Thyroid Stimulating Hormone (TSH) 0.360 uiU/mL (0.358-3.740) Hepatitis A IgM Antibody Pending Hepatitis A Antibody Total Pending Hepatitis B Surface Antigen Pending Hepatitis B Surface Antibody Pending Hepatitis B Core Total Antibody Pending Hepatitis B Core IgM Antibody Pending Hepatitis C Antibody Pending HIV-1 RNA (PCR) log10 Value Pending HIV-1 RNA Ultraquantitative (PCR) Pending HIV (1&2) Antibody Rapid Negative (NEGATIVE) Test 02/03/18 05:58 C-Reactive Protein, Quantitative 8.5 mg/dL (0.00-0.90) H Minerva Montesinos MD Feb 03, 2018 12:33
--- NOTE | 2018-02-03 12:40 | Cardiology Report ---
APPROVED REPORT EKG Measurement Heart [id number] Unusual P axis, possible ectopic atrial tachycardia with frequent premature ventricular complexes in a pattern of bigeminy Left axis deviation Right bundle branch block Septal infarct, age undetermined Abnormal ECG
[2018-02-03] MEDS: Norco 5mg/325mg tab ORAL PRN ×2 (13:31→18:04)
--- NOTE | 2018-02-03 17:20 | Infectious Diseases Prog Note ---
Assessment/Plan Assessment/Plan Abx: None Assessment: Shock Leukocytosis- suspect reactive- r/o acalculous cholecystitis -Abd US: Gallbladder sludge, but no stones. Apparent mild gallbladder wall thickening, probably an artifact of under distention, but if real could indicate acute acalculous cholecystitis, among other possibilities. Consider hepatobiliary nuclear scan if there is high clinical suspicion. Mildly dilated common bile duct. Downstream obstruction not excludable. Consider MRCP for further evaluation, if clinically indicated. -Afebrile -u/a neg -CXR: no acute disease -Bcx p R leg ulcer- no signs of infection Acute renal failure- suspect 2ry to urinary outlet obstruction - ?toxic- started on HD -UDS + opiates -Salicylic acid neg Rhabdomyolysis Elevated LFTs (AST>ALT); shock liver -HIV ab neg Hyperkalemia w/ EKG changes, SP Hypotension/bradycardia upon admission -2ry to above Metabolic encephalopathy Plan: -Start empiric Zosyn pending HIDA scan -HIDA scan -f/u hep serologies, Bcx -Renal, cards f/u -f/u cx -Monitor CBC/CMP, temperatures -ICU support -Aspiration precautions -wound care as per hosp protocol Thank you for this consultation. Will continue to follow along with you. Discussed with RN. Subjective Allergies: Coded Allergies: MILK (Verified Allergy, Unknown, 02/02/18) Uncoded Allergies: MILK PRODUCTS (Allergy, Unknown, 02/02/18) Subjective afebrile WBC 17 on levo at 8 Objective Vital Signs Last 24 Hour Vital Signs Date Time Temp Pulse Resp B/P (MAP) Pulse Ox O2 Delivery O2 Flow Rate FiO2 02/03/18 15:30 102 18 100/66 (77) 100 02/03/18 15:15 99 18 115/59 (77) 100 02/03/18 15:00 85 18 130/80 (97) 100 02/03/18 15:00 130/79 02/03/18 14:45 92 17 110/50 (70) 100 02/03/18 14:30 95 17 128/59 (82) 100 02/03/18 14:30 98.9 02/03/18 14:15 89 17 138/52 (80) 100 02/03/18 14:00 99 17 105/65 (78) 100 8/17/18 14:00 115/63 02/03/18 13:45 95 17 102/70 (81) 100 18 13:30 96 17 121/75 (90) 100 18 13:15 97 17 118/76 (90) 100 18 13:00 98 17 122/62 (82) 100 18 13:00 121/75 18 12:45 97 17 118/76 (90) 100 18 12:30 95 18 101/66 (78) 100 18 12:17 123/74 18 12:15 98 19 110/65 (80) 100 02/03/18 12:00 94 02/03/18 12:00 123/74 02/03/18 12:00 98.9 98 16 138/95 (109) 100 98.9 02/03/18 12:00 Nasal Cannula 2.0 02/03/18 11:45 97 16 110/65 (80) 100 02/03/18 11:30 96 16 127/82 (97) 100 02/03/18 11:15 89 16 104/57 (73) 100 02/03/18 11:00 83 16 131/66 (87) 100 18 11:00 104/57 18 10:45 91 16 118/75 (89) 100 18 10:30 97 16 129/56 (80) 100 02/03/18 10:15 97 19 121/53 (75) 100 18 10:00 121/53 02/03/18 10:00 97 18 99/60 (73) 100 02/03/18 09:45 97 19 105/72 (83) 100 02/03/18 09:30 93 19 93/55 (68) 100 18 09:15 91 19 94/63 (73) 100 18 09:00 95 19 86/62 (70) 100 18 09:00 94/63 18 08:56 99/62 02/03/18 08:45 95 19 86/50 (62) 100 02/03/18 08:30 102 18 108/48 (68) 100 18 08:15 94 15 116/63 (80) 100 02/03/18 08:02 87 18 Nasal Cannula 2.0 28 02/03/18 08:02 Nasal Cannula 2.0 28 02/03/18 08:02 100 Nasal Cannula 2.0 28 18 08:00 94 18 08:00 116/63 18 08:00 Nasal Cannula 2.0 18 08:00 98.9 97 17 100/53 (69) 100 98.9 02/03/18 07:00 91 18 98/62 (74) 100 18 06:30 84 16 127/65 (85) 100 02/03/18 06:00 86 16 119/73 (88) 100 02/03/18 06:00 119/73 02/03/18 05:45 86 17 119/73 (88) 100 02/03/18 05:30 86 16 103/70 (81) 100 02/03/18 05:15 89 19 103/71 (82) 99 02/03/18 05:07 87/56 02/03/18 05:00 89 19 84/56 (65) 100 02/03/18 04:45 90 20 84/56 (65) 100 02/03/18 04:30 89 20 114/58 (76) 100 02/03/18 04:00 141/69 02/03/18 04:00 97.9 86 17 141/69 (93) 100 97.9 02/03/18 04:00 Nasal Cannula 2.0 02/03/18 04:00 85 02/03/18 03:30 86 16 98/66 (77) 100 02/03/18 03:19 88 18 99 Nasal Cannula 2.0 28 18 03:19 90 18 100 Nasal Cannula 2.0 28 02/03/18 03:00 89 16 140/61 (87) 100 18 03:00 87/64 18 02:30 82 16 140/61 (87) 100 18 02:15 82 16 100/62 (75) 100 18 02:00 100/62 18 02:00 80 16 94/54 (67) 100 02/03/18 01:45 84 16 107/65 (79) 100 02/03/18 01:30 85 16 99/67 (78) 100 02/03/18 01:15 86 15 119/61 (80) 100 02/03/18 01:01 80/59 02/03/18 01:00 91 17 93/67 (76) 100 02/03/18 01:00 73/49 18 00:45 124 18 73/49 (57) 100 02/03/18 00:30 125 16 81/55 (64) 100 02/03/18 00:15 119 16 81/55 (64) 100 02/03/18 00:00 98.7 116 15 73/44 (54) 100 98.7 02/03/18 00:00 73/44 02/03/18 00:00 Nasal Cannula 2.0 02/03/18 00:00 80 02/02/18 23:45 100 16 84/41 (55) 100 02/02/18 23:30 90 17 75/47 (56) 100 02/02/18 23:27 76/45 02/02/18 23:17 95 18 100 Nasal Cannula 2.0 28 02/02/18 23:15 93 19 76/45 (55) 100 02/02/18 23:10 90 18 98 Nasal Cannula 2.0 28 02/02/18 23:00 93 19 82/50 (61) 100 02/02/18 22:00 90 18 Nasal Cannula 2.0 28 02/02/18 22:00 99 17 100/38 (58) 100 02/02/18 21:00 98 Nasal Cannula 2.0 28 02/02/18 21:00 79 19 105/52 (69) 100 02/02/18 21:00 Nasal Cannula 2.0 28 02/02/18 20:00 88 02/02/18 20:00 98.3 80 17 95/83 (87) 99 98.3 18 20:00 Simple Mask 5.0 02/02/18 19:00 88 16 122/71 (88) 100 02/02/18 18:00 90 16 114/85 (95) 100 02/02/18 17:19 Nasal Cannula Height (Feet): 6 Height (Inches): 3.00 Weight (Pounds): 174 Objective General Appearance: thin, Chronically Ill Eyes: bilateral eye PERRL ENT: dry mucus membranes Neck: normal inspection, supple, thyroid normal Respiratory: normal inspection, lungs clear, normal breath sounds, no accessory muscle use Cardiovascular #1: normal inspection, normal peripheral pulses, regular rate, rhythm Gastrointestinal: normal bowel sounds, non tender, soft Musculoskeletal: other - chronic wound right lower leg; good rom hips, nontender Neurologic: other - lethargic, moves to painful stimuli and spont, occasional word Psychiatric: other - cannot evaluate Microbiology Date/Time Source Procedure Growth Status 02/02/18 20:30 Urine,Clean Catch Urine Culture - Preliminary NO GROWTH Resulted 02/02/18 08:00 Rectum Received Laboratory Tests Test 02/02/18 19:00 02/02/18 20:30 02/03/18 05:50 02/03/18 05:58 Sodium Level 136 MMOL/L (136-145) 140 MMOL/L (136-145) Potassium Level 5.1 MMOL/L (3.5-5.1) 4.6 MMOL/L (3.5-5.1) Chloride Level 103 MMOL/L (98-107) 105 MMOL/L (98-107) Carbon Dioxide Level 29 MMOL/L (21-32) 30 MMOL/L (21-32) Anion Gap 4 mmol/L (5-15) L 5 mmol/L (5-15) Blood Urea Nitrogen 76 mg/dL (7-18) H 69 mg/dL (7-18) H Creatinine 3.5 MG/DL (0.55-1.30) H 3.0 MG/DL (0.55-1.30) H Estimat Glomerular Filtration Rate 21.5 mL/min (>60) 25.6 mL/min (>60) Glucose Level 149 MG/DL (74-106) H 175 MG/DL (74-106) H Calcium Level 8.5 MG/DL (8.5-10.1) 8.7 MG/DL (8.5-10.1) Total Bilirubin 1.1 MG/DL (0.2-1.0) H 0.8 MG/DL (0.2-1.0) Direct Bilirubin 0.6 MG/DL (0.0-0.3) H Aspartate Amino Transf (AST/SGOT) 1700 U/L (15-37) H 1622 U/L (15-37) H Alanine Aminotransferase (ALT/SGPT) 351 U/L (12-78) H 381 U/L (12-78) H Alkaline Phosphatase 73 U/L (46-116) 75 U/L (46-116) Ammonia < 10 umol/L (11-32) L Troponin I 0.800 ng/mL (0.000-0.056) 0.757 ng/mL (0.000-0.056) Total Protein 6.4 G/DL (6.4-8.2) 6.5 G/DL (6.4-8.2) Albumin 2.0 G/DL (3.4-5.0) L 2.0 G/DL (3.4-5.0) L Globulin 4.4 g/dL 4.5 g/dL Albumin/Globulin Ratio 0.5 (1.0-2.7) L 0.4 (1.0-2.7) L Lipase 264 U/L (73-393) Urine Color Brown Urine Appearance Cloudy Urine pH 6.5 (4.5-8.0) Urine Specific [place] 1.010 (1.005-1.035) Urine Protein 3+ (NEGATIVE) H Urine Glucose (UA) Negative (NEGATIVE) Urine Ketones Negative (NEGATIVE) Urine Occult Blood 5+ (NEGATIVE) H Urine Nitrite Negative (NEGATIVE) Urine Bilirubin Negative (NEGATIVE) Urine Urobilinogen 4 MG/DL (0.0-1.0) H Urine Leukocyte Esterase 1+ (NEGATIVE) H Urine RBC 5-10 /HPF (0 - 0) H Urine WBC 2-4 /HPF (0 - 0) Urine Squamous Epithelial Cells Few /LPF (NONE/OCC) Urine Amorphous Sediment Many /LPF (NONE) H Urine Bacteria Many /HPF (NONE) H Urine Eosinophils None seen (NONE SEEN) Urine Random Sodium < 20 mmol/L (20-110) L Urine Potassium Timed 64 mmol/L (12-62) H White Blood Count 17.3 K/UL (4.8-10.8) H Red Blood Count 3.88 M/UL (4.70-6.10) L Hemoglobin 11.6 G/DL (14.2-18.0) L Hematocrit 35.4 % (42.0-52.0) L Mean Corpuscular Volume 91 FL (80-99) Mean Corpuscular Hemoglobin 29.9 PG (27.0-31.0) Mean Corpuscular Hemoglobin Concent 32.8 G/DL (32.0-36.0) Red Cell Distribution Width 12.3 % (11.6-14.8) Platelet Count 218 K/UL (150-450) Mean Platelet Volume 5.6 FL (6.5-10.1) L Neutrophils (%) (Auto) 81.7 % (45.0-75.0) H Lymphocytes (%) (Auto) 7.6 % (20.0-45.0) L Monocytes (%) (Auto) 10.3 % (1.0-10.0) H Eosinophils (%) (Auto) 0.0 % (0.0-3.0) Basophils (%) (Auto) 0.3 % (0.0-2.0) Hemoglobin A1c 6.1 % (4.3-6.0) H Uric Acid 8.1 MG/DL (2.6-7.2) H Phosphorus Level 4.6 MG/DL (2.5-4.9) Magnesium Level 2.0 MG/DL (1.8-2.4) Gamma Glutamyl Transpeptidase 193 U/L (5-85) H Total Creatine Kinase > 63604 U/L (26-308) H Pro-B-Type Natriuretic Peptide 1317 pg/mL (0-125) H Thyroid Stimulating Hormone (TSH) 0.360 uiU/mL (0.358-3.740) Hepatitis A IgM Antibody Pending Hepatitis A Antibody Total Pending Hepatitis B Surface Antigen Pending Hepatitis B Surface Antibody Pending Hepatitis B Core Total Antibody Pending Hepatitis B Core IgM Antibody Pending Hepatitis C Antibody Pending HIV-1 RNA (PCR) log10 Value Pending HIV-1 RNA Ultraquantitative (PCR) Pending HIV (1&2) Antibody Rapid Negative (NEGATIVE) C-Reactive Protein, Quantitative 8.5 mg/dL (0.00-0.90) H Test 02/03/18 12:50 Troponin I 0.690 ng/mL (0.000-0.056) Current Medications Medications (Trade) Dose Ordered Sig/Erlin Route PRN Reason Start Time Stop Time Status Last Admin Dose Admin Acetaminophen (Tylenol) 650 mg Q4H PRN ORAL Mild Pain/Temp > 100.5 02/02/18 20:30 03/04/18 12:29 02/02/18 20:45 Acetaminophen/ Hydrocodone Bitart ([place] 5/325) 1 tab Q4H PRN ORAL Moderate Pain (Pain Scale 4-6) 02/03/18 13:24 02/10/18 13:23 02/03/18 13:31 Albuterol/ Ipratropium (Albuterol/ Ipratropium) 3 ml Q4H PRN HHN Shortness of Breath 02/02/18 12:30 02/07/18 12:29 Chlorhexidine Gluconate (Yari-Hex 2%) 1 applic DAILY@2000 TOPIC 02/02/18 20:00 03/04/18 19:59 02/02/18 20:17 Dextrose (Dextrose 50%) 25 ml PRN IV Hypoglycemia 02/02/18 13:00 03/04/18 12:59 Dextrose (Dextrose 50%) 50 ml PRN IV hypoglycemia 02/02/18 13:00 03/04/18 12:59 Dextrose/Sodium Chloride 1,000 ml @ 100 mls/hr Q10H IV 02/03/18 11:30 03/04/18 11:29 02/03/18 11:11 Heparin Sodium (Porcine) (Heparin 5000 units/ml) 5,000 units EVERY 12 HOURS SUBQ 02/02/18 21:00 03/04/18 20:59 02/03/18 09:01 Nitroglycerin (Ntg) 1 patch Q24H TDERMAL 02/02/18 07:45 03/04/18 07:44 02/03/18 08:56 Norepinephrine Bitartrate 4 mg/ Dextrose 250 ml @ 0 mls/hr Q24H IV 02/03/18 00:40 03/05/18 00:39 02/03/18 12:17 Ondansetron HCl (Zofran) 4 mg Q6H PRN IVP Nausea & Vomiting 02/02/18 12:30 03/04/18 12:29 Polyethylene Glycol (Miralax) 17 gm DAILYPRN PRN ORAL Constipation 02/02/18 12:30 03/04/18 12:29 Quetiapine Fumarate (SEROquel) 25 mg Q4H PRN ORAL Anxiety 02/03/18 09:45 03/05/18 09:44 Quetiapine Fumarate (SEROquel) 100 mg QHS ORAL 02/03/18 21:00 9/16/18 20:59 Temazepam (Restoril) 15 mg HSPRN PRN ORAL Insomnia 02/02/18 12:30 02/09/18 12:29 Alma Elkins M.D. Feb 03, 2018 17:20
[2018-02-03] MEDS: Piperacillin/Tazobactam 2.25 GM in NS 55 ML IVPB SCH (18:04)
--- NOTE | 2018-02-03 18:15 | Progress Note ---
DATE: 02/03/2018 SUBJECTIVE: The patient continues to have waxing and waning consciousness and cognitive impairment. He is still in intensive care unit and has episodes of anxiety. MENTAL STATUS EXAMINATION: The patient is oriented to self and place. Mood is neutral. Affect is flat. Thought process, there is a paucity of thought content. Thought content, no suicidal or homicidal ideations. ASSESSMENT: Encephalopathy due to general medical condition and bipolar disorder, type 1. PLAN: The patient will be continued on Seroquel 100 mg, which was changed from standing to p.r.n. Julissa Still M.D. DR: LEE JOB#: [id number] CC:
--- NOTE | 2018-02-03 18:54 | Cardiology Progress Note ---
Assessment/Plan Status: stable Assessment/Plan Assessment Right leg ulcer ALBERTO Rhabdomyolysis Hyperkalemia Bradycardia Encephalopathy Elevated troponin Plan: Maintain HD Renal US Echocardiogram - preserved systolic function, no wall motion abnormalities Trend troponin - coming down Monitor LFT, Abdominal US showed biliary sludge -> HIDA scan pending Stress test when stable given elevated troponin and hx of CAD Start aspirin Hold statin given elevated LFT Wean levophed after dialysis Subjective Cardiovascular: Reports: no symptoms Respiratory: Reports: no symptoms Gastrointestinal/Abdominal: Reports: no symptoms Genitourinary: Reports: no symptoms Subjective On levophed for hypotension, plan for HD today then wean pressors. No complaints currently in ICU on NC. Plan for HIDA scan to evaluate gallbaldder, on zosyn for elevated WBC Objective Last 24 Hour Vital Signs Date Time Temp Pulse Resp B/P (MAP) Pulse Ox O2 Delivery O2 Flow Rate FiO2 02/03/18 18:45 93 17 94/64 (74) 100 02/03/18 18:30 99 17 125/69 (87) 100 02/03/18 18:15 100 19 103/61 (75) 100 02/03/18 18:04 98.9 02/03/18 18:00 98 17 122/86 (98) 100 02/03/18 17:45 99 18 122/86 (98) 100 02/03/18 17:30 102 17 94/62 (73) 100 02/03/18 17:15 98 16 111/78 (89) 100 02/03/18 17:00 93 15 31/81 (65) 100 02/03/18 17:00 142/79 02/03/18 16:45 91 18 142/79 (100) 100 02/03/18 16:30 87 18 138/71 (93) 100 02/03/18 16:15 87 18 100/66 (77) 100 02/03/18 16:00 Nasal Cannula 2.0 02/03/18 16:00 84 02/03/18 16:00 87 18 96/56 (69) 100 02/03/18 16:00 138/71 02/03/18 15:45 90 18 111/60 (77) 100 02/03/18 15:30 102 18 100/66 (77) 100 02/03/18 15:15 99 18 115/59 (77) 100 8/17/18 15:00 85 18 130/80 (97) 100 18 15:00 130/79 18 14:45 92 17 110/50 (70) 100 18 14:30 95 17 128/59 (82) 100 02/03/18 14:30 98.9 02/03/18 14:15 89 17 138/52 (80) 100 18 14:00 99 17 105/65 (78) 100 18 14:00 115/63 18 13:45 95 17 102/70 (81) 100 02/03/18 13:30 96 17 121/75 (90) 100 18 13:15 97 17 118/76 (90) 100 02/03/18 13:00 98 17 122/62 (82) 100 02/03/18 13:00 121/75 02/03/18 12:45 97 17 118/76 (90) 100 02/03/18 12:30 95 18 101/66 (78) 100 02/03/18 12:17 123/74 18 12:15 98 19 110/65 (80) 100 02/03/18 12:00 94 18 12:00 123/74 02/03/18 12:00 98.9 98 16 138/95 (109) 100 98.9 02/03/18 12:00 Nasal Cannula 2.0 02/03/18 11:45 97 16 110/65 (80) 100 02/03/18 11:30 96 16 127/82 (97) 100 02/03/18 11:15 89 16 104/57 (73) 100 02/03/18 11:00 83 16 131/66 (87) 100 02/03/18 11:00 104/57 18 10:45 91 16 118/75 (89) 100 02/03/18 10:30 97 16 129/56 (80) 100 02/03/18 10:15 97 19 121/53 (75) 100 18 10:00 121/53 02/03/18 10:00 97 18 99/60 (73) 100 02/03/18 09:45 97 19 105/72 (83) 100 02/03/18 09:30 93 19 93/55 (68) 100 8/17/18 09:15 91 19 94/63 (73) 100 18 09:00 95 19 86/62 (70) 100 18 09:00 94/63 8/18 08:56 99/62 8/18 08:45 95 19 86/50 (62) 100 18 08:30 102 18 108/48 (68) 100 18 08:15 94 15 116/63 (80) 100 18 08:02 87 18 Nasal Cannula 2.0 28 18 08:02 Nasal Cannula 2.0 28 18 08:02 100 Nasal Cannula 2.0 28 18 08:00 94 18 08:00 116/63 18 08:00 Nasal Cannula 2.0 18 08:00 98.9 97 17 100/53 (69) 100 98.9 18 07:00 91 18 98/62 (74) 100 18 06:30 84 16 127/65 (85) 100 18 06:00 86 16 119/73 (88) 100 18 06:00 119/73 18 05:45 86 17 119/73 (88) 100 18 05:30 86 16 103/70 (81) 100 18 05:15 89 19 103/71 (82) 99 18 05:07 87/56 18 05:00 89 19 84/56 (65) 100 18 04:45 90 20 84/56 (65) 100 02/03/18 04:30 89 20 114/58 (76) 100 18 04:00 141/69 18 04:00 97.9 86 17 141/69 (93) 100 97.9 18 04:00 Nasal Cannula 2.0 1718 04:00 85 17/18 03:30 86 16 98/66 (77) 100 18 03:19 88 18 99 Nasal Cannula 2.0 28 18 03:19 90 18 100 Nasal Cannula 2.0 28 18 03:00 89 16 140/61 (87) 100 02/03/18 03:00 87/64 02/03/18 02:30 82 16 140/61 (87) 100 02/03/18 02:15 82 16 100/62 (75) 100 02/03/18 02:00 100/62 02/03/18 02:00 80 16 94/54 (67) 100 02/03/18 01:45 84 16 107/65 (79) 100 02/03/18 01:30 85 16 99/67 (78) 100 02/03/18 01:15 86 15 119/61 (80) 100 02/03/18 01:01 80/59 02/03/18 01:00 91 17 93/67 (76) 100 02/03/18 01:00 73/49 02/03/18 00:45 124 18 73/49 (57) 100 02/03/18 00:30 125 16 81/55 (64) 100 02/03/18 00:15 119 16 81/55 (64) 100 02/03/18 00:00 98.7 116 15 73/44 (54) 100 98.7 02/03/18 00:00 73/44 02/03/18 00:00 Nasal Cannula 2.0 02/03/18 00:00 80 02/02/18 23:45 100 16 84/41 (55) 100 02/02/18 23:30 90 17 75/47 (56) 100 02/02/18 23:27 76/45 02/02/18 23:17 95 18 100 Nasal Cannula 2.0 28 02/02/18 23:15 93 19 76/45 (55) 100 02/02/18 23:10 90 18 98 Nasal Cannula 2.0 28 02/02/18 23:00 93 19 82/50 (61) 100 02/02/18 22:00 90 18 Nasal Cannula 2.0 28 02/02/18 22:00 99 17 100/38 (58) 100 02/02/18 21:00 98 Nasal Cannula 2.0 28 02/02/18 21:00 79 19 105/52 (69) 100 02/02/18 21:00 Nasal Cannula 2.0 28 18 20:00 88 02/02/18 20:00 98.3 80 17 95/83 (87) 99 98.3 02/02/18 20:00 Simple Mask 5.0 02/02/18 19:00 88 16 122/71 (88) 100 General Appearance: no apparent distress, alert EENT: PERRL/EOMI, normal ENT inspection Neck: non-tender, normal alignment Rhythm: NSR, PVCs, PACs Cardiovascular: normal peripheral pulses, normal rate Respiratory/Chest: chest wall non-tender, lungs clear Abdomen: normal bowel sounds, non tender, hyperactive bowel sounds Extremities: normal range of motion, non-tender 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, no motor/sensory deficits Intake and Output 02/02/18 02/03/18 19:00 07:00 Intake Total 1050 ml 1854.819 ml Output Total 1620 ml 1350 ml Balance -570 ml 504.819 ml IV Total 1050 ml 1854.819 ml Output Urine Total 1620 ml 1350 ml Hemodialysis UF 0 ml Laboratory Tests Test 02/02/18 19:00 02/02/18 20:30 02/03/18 05:50 02/03/18 05:58 Sodium Level 136 MMOL/L (136-145) 140 MMOL/L (136-145) Potassium Level 5.1 MMOL/L (3.5-5.1) 4.6 MMOL/L (3.5-5.1) Chloride Level 103 MMOL/L (98-107) 105 MMOL/L (98-107) Carbon Dioxide Level 29 MMOL/L (21-32) 30 MMOL/L (21-32) Anion Gap 4 mmol/L (5-15) L 5 mmol/L (5-15) Blood Urea Nitrogen 76 mg/dL (7-18) H 69 mg/dL (7-18) H Creatinine 3.5 MG/DL (0.55-1.30) H 3.0 MG/DL (0.55-1.30) H Estimat Glomerular Filtration Rate 21.5 mL/min (>60) 25.6 mL/min (>60) Glucose Level 149 MG/DL (74-106) H 175 MG/DL (74-106) H Calcium Level 8.5 MG/DL (8.5-10.1) 8.7 MG/DL (8.5-10.1) Total Bilirubin 1.1 MG/DL (0.2-1.0) H 0.8 MG/DL (0.2-1.0) Direct Bilirubin 0.6 MG/DL (0.0-0.3) H Aspartate Amino Transf (AST/SGOT) 1700 U/L (15-37) H 1622 U/L (15-37) H Alanine Aminotransferase (ALT/SGPT) 351 U/L (12-78) H 381 U/L (12-78) H Alkaline Phosphatase 73 U/L (46-116) 75 U/L (46-116) Ammonia < 10 umol/L (11-32) L Troponin I 0.800 ng/mL (0.000-0.056) 0.757 ng/mL (0.000-0.056) Total Protein 6.4 G/DL (6.4-8.2) 6.5 G/DL (6.4-8.2) Albumin 2.0 G/DL (3.4-5.0) L 2.0 G/DL (3.4-5.0) L Globulin 4.4 g/dL 4.5 g/dL Albumin/Globulin Ratio 0.5 (1.0-2.7) L 0.4 (1.0-2.7) L Lipase 264 U/L (73-393) Urine Color Brown Urine Appearance Cloudy Urine pH 6.5 (4.5-8.0) Urine Specific [place] 1.010 (1.005-1.035) Urine Protein 3+ (NEGATIVE) H Urine Glucose (UA) Negative (NEGATIVE) Urine Ketones Negative (NEGATIVE) Urine Occult Blood 5+ (NEGATIVE) H Urine Nitrite Negative (NEGATIVE) Urine Bilirubin Negative (NEGATIVE) Urine Urobilinogen 4 MG/DL (0.0-1.0) H Urine Leukocyte Esterase 1+ (NEGATIVE) H Urine RBC 5-10 /HPF (0 - 0) H Urine WBC 2-4 /HPF (0 - 0) Urine Squamous Epithelial Cells Few /LPF (NONE/OCC) Urine Amorphous Sediment Many /LPF (NONE) H Urine Bacteria Many /HPF (NONE) H Urine Eosinophils None seen (NONE SEEN) Urine Random Sodium < 20 mmol/L (20-110) L Urine Potassium Timed 64 mmol/L (12-62) H White Blood Count 17.3 K/UL (4.8-10.8) H Red Blood Count 3.88 M/UL (4.70-6.10) L Hemoglobin 11.6 G/DL (14.2-18.0) L Hematocrit 35.4 % (42.0-52.0) L Mean Corpuscular Volume 91 FL (80-99) Mean Corpuscular Hemoglobin 29.9 PG (27.0-31.0) Mean Corpuscular Hemoglobin Concent 32.8 G/DL (32.0-36.0) Red Cell Distribution Width 12.3 % (11.6-14.8) Platelet Count 218 K/UL (150-450) Mean Platelet Volume 5.6 FL (6.5-10.1) L Neutrophils (%) (Auto) 81.7 % (45.0-75.0) H Lymphocytes (%) (Auto) 7.6 % (20.0-45.0) L Monocytes (%) (Auto) 10.3 % (1.0-10.0) H Eosinophils (%) (Auto) 0.0 % (0.0-3.0) Basophils (%) (Auto) 0.3 % (0.0-2.0) Hemoglobin A1c 6.1 % (4.3-6.0) H Uric Acid 8.1 MG/DL (2.6-7.2) H Phosphorus Level 4.6 MG/DL (2.5-4.9) Magnesium Level 2.0 MG/DL (1.8-2.4) Gamma Glutamyl Transpeptidase 193 U/L (5-85) H Total Creatine Kinase > 28756 U/L (26-308) H Pro-B-Type Natriuretic Peptide 1317 pg/mL (0-125) H Thyroid Stimulating Hormone (TSH) 0.360 uiU/mL (0.358-3.740) Hepatitis A IgM Antibody Pending Hepatitis A Antibody Total Pending Hepatitis B Surface Antigen Pending Hepatitis B Surface Antibody Pending Hepatitis B Core Total Antibody Pending Hepatitis B Core IgM Antibody Pending Hepatitis C Antibody Pending HIV-1 RNA (PCR) log10 Value Pending HIV-1 RNA Ultraquantitative (PCR) Pending HIV (1&2) Antibody Rapid Negative (NEGATIVE) C-Reactive Protein, Quantitative 8.5 mg/dL (0.00-0.90) H Test 02/03/18 12:50 Troponin I 0.690 ng/mL (0.000-0.056) Microbiology Date/Time Source Procedure Growth Status 02/02/18 20:30 Urine,Clean Catch Urine Culture - Preliminary NO GROWTH Resulted 02/02/18 08:00 Rectum Received Vinny Tobin M.D. Feb 03, 2018 18:53
[2018-02-03] MEDS: Dyna-Hex 2% Top Sol 2oz TOPIC SCH (19:29)
[2018-02-04] VITALS (56 sets, daily range): BP systolic 83–152; BP diastolic 51–92
[2018-02-04] MEDS: Piperacillin/Tazobactam 2.25 GM in NS 55 ML IVPB SCH ×3 (01:58→17:09)
[2018-02-04] MEDS: Norco 5mg/325mg tab ORAL PRN ×4 (03:39→21:47)
[2018-02-04] MEDS: D5NS 1,000 ML IV SCH ×3 (04:03→20:24)
[2018-02-04 05:20] LABS: BASOPHILS % (AUTO) 0.4 % (0.0-2.0); EOSINOPHILS % (AUTO) 0.1 % (0.0-3.0); HEMATOCRIT 30.6 % (42.0-52.0); LYMPHOCYTES % (AUTO) 8.6 % (20.0-45.0); MEAN CORPUSCULAR VOLUME 91 FL (80-99); MONOCYTES % (AUTO) 9.1 % (1.0-10.0); NEUTROPHILS % (AUTO) 81.9 % (45.0-75.0); PLATELET COUNT 132 K/UL (150-450); RED BLOOD COUNT 3.36 M/UL (4.70-6.10); WHITE BLOOD COUNT 15.4 K/UL (4.8-10.8)
[2018-02-04 05:37] LABS: % IRON SATURATION 10 % (15-50); IRON 15 ug/dL (50-175); TOTAL IRON BINDING CAPACITY 148 ug/dL (250-450)
[2018-02-04 05:59] LABS: ALANINE AMINOTRANSFERASE 299 U/L (12-78); ALBUMIN/GLOBULIN RATIO 0.5 (1.0-2.7); ALKALINE PHOSPHATASE 56 U/L (46-116); ANION GAP 5 mmol/L (5-15); ASPARTATE AMINO TRANSFERASE 878 U/L (15-37); BILIRUBIN,TOTAL 0.6 MG/DL (0.2-1.0); BLOOD UREA NITROGEN 42 mg/dL (7-18); CALCIUM 8.4 MG/DL (8.5-10.1); CARBON DIOXIDE 28 MMOL/L (21-32); CHLORIDE 111 MMOL/L (98-107); CHOLESTEROL 119 MG/DL (< 200); CREATINE KINASE > 10000 U/L (26-308); CREATININE 1.6 MG/DL (0.55-1.30); FERRITIN 592 NG/ML (8-388); GAMMA GLUTAMYL TRANSPEPTIDASE 138 U/L (5-85); HDL CHOLESTEROL 46 MG/DL (40-60); PHOSPHORUS 2.5 MG/DL (2.5-4.9); POTASSIUM 4.1 MMOL/L (3.5-5.1); SODIUM 144 MMOL/L (136-145); TRIGLYCERIDES 75 MG/DL (30-150)
--- NOTE | 2018-02-04 07:39 | Pulmonolgy Critical Care Note ---
Critical Care - Asmt/Plan Assessment/Plan: ASSESSMENT sepsis shock acute metabolic encephalopathy due to acute renal failure and rhabdo -resolved elevated troponin, possible NSTEMI acute renal failure, requiring start of HD-resolved hyperkalemia-resolved rhabdomyolysis transaminitis, possibly shock fever urinary outlet obstruction hx of CVA CAD hx of HTN right leg ulcer, r/o PVD anemia of chronic disease bipolar disorder PLAN of CARE ICU status pressors and try to wean to keep MAP >65 s/p HD 02/02, after placement temporary HD cath by surgeon creatinine down to 1.6 -stable renal ultrasound pending monitor renal parameters, electrolytes, avoid nephrotoxic, correct electrolytes as needed continue IV fluids trend CK started on oral as per ST recs cardio follows trend troponin, trending down continue ASA, and hold statin given elevated LFT ECHO with pEF 60-6% and RVSP of 33 O2 titrate to keep pulse ox above 92% pulmonary toilet prn CXR clear Arterial Duplex BLE ( cool R foot c/w L foot, r/o PVD) trend LFT , trending up, possibly shock liver hepatitis panel pending HIV status negative abdominal ultrasound with biliary sludge considers GI eval. monitor H&H with goal to keep hemoglobin above 7 anemia w/up c/w anemia of chronic disease , high ferritin level wound care as per protocol supportive care continue Seroquel DVT prophylaxis case discussed and evaluated by supervising physician Critical Care - Objective Last 24 Hour Vital Signs Date Time Temp Pulse Resp B/P (MAP) Pulse Ox O2 Delivery O2 Flow Rate FiO2 02/04/18 07:00 142 16 116/84 (95) 100 02/04/18 06:45 142 16 112/77 (89) 100 02/04/18 06:30 144 16 110/78 (89) 100 02/04/18 06:15 143 16 105/75 (85) 100 02/04/18 06:00 143 16 116/71 (86) 100 02/04/18 05:45 142 17 97/73 (81) 100 02/04/18 05:30 142 17 100/71 (81) 100 02/04/18 05:15 143 17 100/71 (81) 100 02/04/18 05:00 145 17 96/69 (78) 100 02/04/18 05:00 96/69 02/04/18 04:45 88/50 02/04/18 04:45 157 17 104/52 (69) 100 02/04/18 04:42 97.8 02/04/18 04:30 157 17 84/65 (71) 100 02/04/18 04:15 145 17 84/65 (71) 100 02/04/18 04:00 Nasal Cannula 2.0 02/04/18 04:00 146 20 84/65 (71) 95 02/04/18 04:00 84/65 02/04/18 04:00 90 02/04/18 03:45 156 20 83/70 (74) 100 02/04/18 03:39 97.8 02/04/18 03:30 147 17 83/57 (66) 100 02/04/18 03:15 136 18 120/73 (89) 100 02/04/18 03:00 105 18 96/66 (76) 100 02/04/18 03:00 121/62 02/04/18 02:45 103 18 96/69 (78) 100 02/04/18 02:30 105 18 96/71 (79) 100 02/04/18 02:15 94 17 93/70 (78) 100 02/04/18 02:00 105/69 02/04/18 02:00 104 17 105/69 (81) 100 02/04/18 01:45 98 18 152/81 (104) 100 02/04/18 01:30 99 18 93/56 (68) 100 02/04/18 01:15 94 19 85/51 (62) 100 02/04/18 01:00 109 19 108/59 (75) 100 02/04/18 01:00 84/58 02/04/18 00:45 111 18 108/59 (75) 100 02/04/18 00:30 110 18 115/80 (92) 100 02/04/18 00:15 104 19 91/65 (74) 100 02/04/18 00:00 121/103 02/04/18 00:00 105 02/04/18 00:00 Nasal Cannula 2.0 02/04/18 00:00 97.8 108 18 110/66 (81) 100 97.8 02/03/18 23:45 108 19 121/103 (109) 100 02/03/18 23:30 107 19 108/51 (70) 100 8/17/18 23:15 121 19 105/80 (88) 100 8/17/18 23:00 107 19 112/65 (81) 100 8/17/18 23:00 112/65 8/17/18 22:45 106 19 89/52 (64) 100 8/17/18 22:30 108 19 89/52 (64) 100 8/17/18 22:15 115 19 74/47 (56) 100 8/17/18 22:00 115 18 91/70 (77) 100 8/17/18 22:00 91/70 8/17/18 21:45 115 18 81/52 (62) 100 8/17/18 21:30 108 19 108/58 (75) 100 8/17/18 21:15 104 19 88/54 (65) 100 8/17/18 21:00 112/93 8/17/18 21:00 98 16 112/93 (99) 100 8/17/18 20:45 100 18 88/60 (69) 100 817/18 20:30 99 18 88/60 (69) 100 8/17/18 20:15 104 16 99/54 (69) 100 817/18 20:00 100 817/18 20:00 121/61 817/18 20:00 Nasal Cannula 2.0 817/18 20:00 98.7 96 18 121/61 (81) 100 98.7 817/18 19:45 97 18 122/58 (79) 100 817/18 19:30 100 17 106/63 (77) 100 817/18 19:29 91/72 817/18 19:23 88 17 Nasal Cannula 2.0 28 817/18 19:23 Nasal Cannula 2.0 28 817/18 19:23 99 Nasal Cannula 2.0 28 817/18 19:15 101 17 123/67 (85) 100 817/18 19:00 98 17 91/72 (78) 100 8/17/18 19:00 91/72 817/18 18:45 93 17 94/64 (74) 100 8/17/18 18:30 99 17 125/69 (87) 100 8/17/18 18:15 100 19 103/61 (75) 100 8/17/18 18:04 98.9 02/03/18 18:00 98 17 122/86 (98) 100 17/18 17:45 99 18 122/86 (98) 100 17/18 17:30 102 17 94/62 (73) 100 17/18 17:15 98 16 111/78 (89) 100 18 17:00 93 15 31/81 (65) 100 1718 17:00 142/79 17/18 16:45 91 18 142/79 (100) 100 17/18 16:30 87 18 138/71 (93) 100 17/18 16:15 87 18 100/66 (77) 100 18 16:00 Nasal Cannula 2.0 18 16:00 84 17/18 16:00 87 18 96/56 (69) 100 18 16:00 138/71 17/18 15:45 90 18 111/60 (77) 100 17/18 15:30 102 18 100/66 (77) 100 02/03/18 15:15 99 18 115/59 (77) 100 18 15:00 85 18 130/80 (97) 100 02/03/18 15:00 130/79 17/18 14:45 92 17 110/50 (70) 100 18 14:30 95 17 128/59 (82) 100 18 14:15 89 17 138/52 (80) 100 18 14:00 99 17 105/65 (78) 100 18 14:00 115/63 17/18 13:45 95 17 102/70 (81) 100 02/03/18 13:30 96 17 121/75 (90) 100 17/18 13:15 97 17 118/76 (90) 100 17/18 13:00 98 17 122/62 (82) 100 17/18 13:00 121/75 17/18 12:45 97 17 118/76 (90) 100 17/18 12:30 95 18 101/66 (78) 100 17/18 12:17 123/74 17/18 12:15 98 19 110/65 (80) 100 02/03/18 12:00 94 02/03/18 12:00 123/74 02/03/18 12:00 98.9 98 16 138/95 (109) 100 98.9 02/03/18 12:00 Nasal Cannula 2.0 02/03/18 11:45 97 16 110/65 (80) 100 02/03/18 11:30 96 16 127/82 (97) 100 02/03/18 11:15 89 16 104/57 (73) 100 02/03/18 11:00 83 16 131/66 (87) 100 02/03/18 11:00 104/57 02/03/18 10:45 91 16 118/75 (89) 100 02/03/18 10:30 97 16 129/56 (80) 100 02/03/18 10:15 97 19 121/53 (75) 100 02/03/18 10:00 121/53 02/03/18 10:00 97 18 99/60 (73) 100 02/03/18 09:45 97 19 105/72 (83) 100 02/03/18 09:30 93 19 93/55 (68) 100 02/03/18 09:15 91 19 94/63 (73) 100 02/03/18 09:00 95 19 86/62 (70) 100 02/03/18 09:00 94/63 02/03/18 08:56 99/62 02/03/18 08:45 95 19 86/50 (62) 100 02/03/18 08:30 102 18 108/48 (68) 100 02/03/18 08:15 94 15 116/63 (80) 100 02/03/18 08:02 87 18 Nasal Cannula 2.0 28 02/03/18 08:02 Nasal Cannula 2.0 28 02/03/18 08:02 100 Nasal Cannula 2.0 28 02/03/18 08:00 94 02/03/18 08:00 116/63 02/03/18 08:00 Nasal Cannula 2.0 02/03/18 08:00 98.9 97 17 100/53 (69) 100 98.9 Status: awake Condition: critical HEENT: atraumatic, normocephalic Neck: full ROM Lungs: clear Heart: HR/BP unstable - on pressors Abdomen: soft, non-tender, active bowel sounds Extremities: no C/C/E Micro: Microbiology Date/Time Source Procedure Growth Status 02/02/18 20:30 Urine,Clean Catch Urine Culture - Preliminary NO GROWTH Resulted 02/03/18 19:20 Leg Right Gram Stain - Final Resulted 02/03/18 19:20 Leg Right Wound Culture Pending Resulted 02/02/18 08:00 Rectum - Final NO CARBAPENEM-RESISTANT ENTEROBACTERI... Complete 02/02/18 08:00 Rectum VRE Culture - Final NO VANCOMYCIN RESISTANT ENTEROCOCCUS ... Complete Accucheck: 156 Critical Care - Subjective ROS Limited/Unobtainable: Yes Interval Events: persistent leukocytosis, afebrile still on Levophed gtt creat stable-1.6 troponin trending down Condition: critical IV Access: central - LIJ TL CL, RIJ HD catheter EKG Rhythm: Sinus Tachycardia FI02: 28 Sputum Amount: None Fluids: D5NS at 100 Drips: Levophed 14 mcg/min I&O: Intake and Output 02/03/18 02/04/18 19:00 07:00 Intake Total 2052.5 ml 1480.0 ml Output Total 1650 ml 725 ml Balance 402.5 ml 755.0 ml Intake Oral 200 ml 50 ml IV Total 1852.5 ml 1430.0 ml Output Urine Total 1650 ml 725 ml CXR: 02/04No significant change. Tubes and lines as outlined above. Lungs and pleural spaces are clear. Linsey Boo NP Feb 04, 2018 07:39
[2018-02-04] MEDS: Nitroglycerin Patch 0.2mg/hr TDERMAL SCH (08:15)
[2018-02-04] MEDS: Heparin 5000 units/ml inj SUBQ SCH ×2 (08:20→20:33)
[2018-02-04] MEDS ORDERED: D5NS 1,000 ML IV SCH (08:35)
--- NOTE | 2018-02-04 09:06 | Diagnostic Imaging Report ---
INDICATION: Dyspnea COMPARISON: Chest x-ray dated 01/27/18 FINDINGS: Single frontal view demonstrates a normal cardiomediastinal silhouette. Bilateral internal jugular central venous catheters with tip in the midsuperior vena cava, grossly unchanged. The lungs are clear. No pleural effusions. The visualized osseous structures are within normal limits. IMPRESSION: No significant change. Tubes and lines as outlined above. Lungs and pleural spaces are clear.
[2018-02-04] MEDS: Aspirin EC 81mg tab ORAL SCH (09:51)
--- NOTE | 2018-02-04 10:28 | Cardiology Progress Note ---
Assessment/Plan Status: stable, progressing Assessment/Plan Assessment Right leg ulcer ALBERTO Rhabdomyolysis Hyperkalemia Bradycardia Encephalopathy Elevated troponin Plan: Echocardiogram - preserved systolic function, no wall motion abnormalities Trend troponin - coming down Monitor LFT, Abdominal US showed biliary sludge -> HIDA scan pending Stress test when stable given elevated troponin and hx of CAD Start aspirin Hold statin given elevated LFT Wean levophed as tolerated Stress dose steroids Monitor heart rate for now, if remains elevated will start digoxin Right LE Ultrasound Subjective Cardiovascular: Reports: no symptoms Respiratory: Reports: no symptoms Gastrointestinal/Abdominal: Reports: no symptoms Genitourinary: Reports: no symptoms Subjective On levophed for hypotension - titrated up overnight, nitro patch removed Went into atrial flutter rates 140s-150s WBC elevated On regular diet, oxygen facemask, responsive to commands Objective Last 24 Hour Vital Signs Date Time Temp Pulse Resp B/P (MAP) Pulse Ox O2 Delivery O2 Flow Rate FiO2 02/04/18 08:22 120/82 02/04/18 08:15 120/82 02/04/18 07:00 87 17 Nasal Cannula 2.0 28 02/04/18 07:00 142 16 116/84 (95) 100 02/04/18 07:00 91 Nasal Cannula 2.0 28 02/04/18 07:00 Nasal Cannula 2.0 28 02/04/18 06:45 142 16 112/77 (89) 100 02/04/18 06:30 144 16 110/78 (89) 100 02/04/18 06:15 143 16 105/75 (85) 100 02/04/18 06:00 143 16 116/71 (86) 100 02/04/18 05:45 142 17 97/73 (81) 100 02/04/18 05:30 142 17 100/71 (81) 100 02/04/18 05:15 143 17 100/71 (81) 100 02/04/18 05:00 145 17 96/69 (78) 100 02/04/18 05:00 96/69 02/04/18 04:45 88/50 02/04/18 04:45 157 17 104/52 (69) 100 02/04/18 04:42 97.8 02/04/18 04:30 157 17 84/65 (71) 100 02/04/18 04:15 145 17 84/65 (71) 100 02/04/18 04:00 Nasal Cannula 2.0 02/04/18 04:00 146 20 84/65 (71) 95 18 04:00 84/65 02/04/18 04:00 90 02/04/18 03:45 156 20 83/70 (74) 100 02/04/18 03:39 97.8 02/04/18 03:30 147 17 83/57 (66) 100 02/04/18 03:15 136 18 120/73 (89) 100 02/04/18 03:00 105 18 96/66 (76) 100 02/04/18 03:00 121/62 02/04/18 02:45 103 18 96/69 (78) 100 02/04/18 02:30 105 18 96/71 (79) 100 02/04/18 02:15 94 17 93/70 (78) 100 02/04/18 02:00 105/69 02/04/18 02:00 104 17 105/69 (81) 100 02/04/18 01:45 98 18 152/81 (104) 100 02/04/18 01:30 99 18 93/56 (68) 100 02/04/18 01:15 94 19 85/51 (62) 100 02/04/18 01:00 109 19 108/59 (75) 100 02/04/18 01:00 84/58 02/04/18 00:45 111 18 108/59 (75) 100 02/04/18 00:30 110 18 115/80 (92) 100 02/04/18 00:15 104 19 91/65 (74) 100 02/04/18 00:00 121/103 02/04/18 00:00 105 02/04/18 00:00 Nasal Cannula 2.0 02/04/18 00:00 97.8 108 18 110/66 (81) 100 97.8 02/03/18 23:45 108 19 121/103 (109) 100 02/03/18 23:30 107 19 108/51 (70) 100 02/03/18 23:15 121 19 105/80 (88) 100 02/03/18 23:00 107 19 112/65 (81) 100 02/03/18 23:00 112/65 02/03/18 22:45 106 19 89/52 (64) 100 8/17/18 22:30 108 19 89/52 (64) 100 8/17/18 22:15 115 19 74/47 (56) 100 8/17/18 22:00 115 18 91/70 (77) 100 8/17/18 22:00 91/70 817/18 21:45 115 18 81/52 (62) 100 8/17/18 21:30 108 19 108/58 (75) 100 817/18 21:15 104 19 88/54 (65) 100 8/17/18 21:00 112/93 8/17/18 21:00 98 16 112/93 (99) 100 817/18 20:45 100 18 88/60 (69) 100 817/18 20:30 99 18 88/60 (69) 100 817/18 20:15 104 16 99/54 (69) 100 17/18 20:00 100 17/18 20:00 121/61 17/18 20:00 Nasal Cannula 2.0 17/18 20:00 98.7 96 18 121/61 (81) 100 98.7 817/18 19:45 97 18 122/58 (79) 100 17/18 19:30 100 17 106/63 (77) 100 17/18 19:29 91/72 17/18 19:23 88 17 Nasal Cannula 2.0 28 17/18 19:23 Nasal Cannula 2.0 28 817/18 19:23 99 Nasal Cannula 2.0 28 17/18 19:15 101 17 123/67 (85) 100 817/18 19:00 98 17 91/72 (78) 100 817/18 19:00 91/72 817/18 18:45 93 17 94/64 (74) 100 817/18 18:30 99 17 125/69 (87) 100 817/18 18:15 100 19 103/61 (75) 100 817/18 18:04 98.9 817/18 18:00 98 17 122/86 (98) 100 817/18 17:45 99 18 122/86 (98) 100 817/18 17:30 102 17 94/62 (73) 100 817/18 17:15 98 16 111/78 (89) 100 18 17:00 93 15 31/81 (65) 100 18 17:00 142/79 18 16:45 91 18 142/79 (100) 100 18 16:30 87 18 138/71 (93) 100 18 16:15 87 18 100/66 (77) 100 18 16:00 Nasal Cannula 2.0 18 16:00 84 18 16:00 87 18 96/56 (69) 100 18 16:00 138/71 1718 15:45 90 18 111/60 (77) 100 18 15:30 102 18 100/66 (77) 100 18 15:15 99 18 115/59 (77) 100 18 15:00 85 18 130/80 (97) 100 18 15:00 130/79 18 14:45 92 17 110/50 (70) 100 18 14:30 95 17 128/59 (82) 100 18 14:15 89 17 138/52 (80) 100 18 14:00 99 17 105/65 (78) 100 18 14:00 115/63 18 13:45 95 17 102/70 (81) 100 18 13:30 96 17 121/75 (90) 100 18 13:15 97 17 118/76 (90) 100 18 13:00 98 17 122/62 (82) 100 18 13:00 121/75 18 12:45 97 17 118/76 (90) 100 18 12:30 95 18 101/66 (78) 100 18 12:17 123/74 18 12:15 98 19 110/65 (80) 100 18 12:00 94 18 12:00 123/74 18 12:00 98.9 98 16 138/95 (109) 100 98.9 02/03/18 12:00 Nasal Cannula 2.0 8/17/18 11:45 97 16 110/65 (80) 100 02/03/18 11:30 96 16 127/82 (97) 100 02/03/18 11:15 89 16 104/57 (73) 100 02/03/18 11:00 83 16 131/66 (87) 100 02/03/18 11:00 104/57 02/03/18 10:45 91 16 118/75 (89) 100 02/03/18 10:30 97 16 129/56 (80) 100 General Appearance: no apparent distress, alert EENT: PERRL/EOMI, normal ENT inspection Neck: non-tender, normal alignment Rhythm: ST, Afib Cardiovascular: normal peripheral pulses, normal rate Respiratory/Chest: chest wall non-tender, lungs clear Abdomen: normal bowel sounds, non tender Extremities: normal range of motion, non-tender Neurologic: pattern illustrator II-XII grossly normal Intake and Output 02/03/18 02/04/18 19:00 07:00 Intake Total 2052.5 ml 1480.0 ml Output Total 1650 ml 725 ml Balance 402.5 ml 755.0 ml Intake Oral 200 ml 50 ml IV Total 1852.5 ml 1430.0 ml Output Urine Total 1650 ml 725 ml Laboratory Tests Test 02/03/18 12:50 02/04/18 04:00 02/04/18 04:59 Troponin I 0.690 ng/mL (0.000-0.056) 0.325 ng/mL (0.000-0.056) Arterial Blood pH 7.360 (7.350-7.450) Arterial Blood Partial Pressure CO2 54.5 mmHg (35.0-45.0) H Arterial Blood Partial Pressure O2 42.5 mmHg (75.0-100.0) Arterial Blood HCO3 30.1 mmol/L (22.0-26.0) H Arterial Blood Oxygen Saturation 44.0 % (92.0-98.0) L Arterial Blood Base Excess 3.7 Trell Test Positive White Blood Count 15.4 K/UL (4.8-10.8) H Red Blood Count 3.36 M/UL (4.70-6.10) L Hemoglobin 10.0 G/DL (14.2-18.0) L Hematocrit 30.6 % (42.0-52.0) L Mean Corpuscular Volume 91 FL (80-99) Mean Corpuscular Hemoglobin 29.7 PG (27.0-31.0) Mean Corpuscular Hemoglobin Concent 32.6 G/DL (32.0-36.0) Red Cell Distribution Width 12.0 % (11.6-14.8) Platelet Count 132 K/UL (150-450) L Mean Platelet Volume 5.5 FL (6.5-10.1) L Neutrophils (%) (Auto) 81.9 % (45.0-75.0) H Lymphocytes (%) (Auto) 8.6 % (20.0-45.0) L Monocytes (%) (Auto) 9.1 % (1.0-10.0) Eosinophils (%) (Auto) 0.1 % (0.0-3.0) Basophils (%) (Auto) 0.4 % (0.0-2.0) Sodium Level 144 MMOL/L (136-145) Potassium Level 4.1 MMOL/L (3.5-5.1) Chloride Level 111 MMOL/L (98-107) H Carbon Dioxide Level 28 MMOL/L (21-32) Anion Gap 5 mmol/L (5-15) Blood Urea Nitrogen 42 mg/dL (7-18) H Creatinine 1.6 MG/DL (0.55-1.30) H Estimat Glomerular Filtration Rate 52.8 mL/min (>60) Glucose Level 165 MG/DL (74-106) H Uric Acid 6.6 MG/DL (2.6-7.2) Calcium Level 8.4 MG/DL (8.5-10.1) L Phosphorus Level 2.5 MG/DL (2.5-4.9) Magnesium Level 1.6 MG/DL (1.8-2.4) L Iron Level 15 ug/dL (50-175) L Total Iron Binding Capacity 148 ug/dL (250-450) L Percent Iron Saturation 10 % (15-50) L Unsaturated Iron Binding 133 ug/dL (112-346) Ferritin 592 NG/ML (8-388) H Total Bilirubin 0.6 MG/DL (0.2-1.0) Gamma Glutamyl Transpeptidase 138 U/L (5-85) H Aspartate Amino Transf (AST/SGOT) 878 U/L (15-37) H Alanine Aminotransferase (ALT/SGPT) 299 U/L (12-78) H Alkaline Phosphatase 56 U/L (46-116) Total Creatine Kinase > 21934 U/L (26-308) H Pro-B-Type Natriuretic Peptide 4132 pg/mL (0-125) H Total Protein 5.9 G/DL (6.4-8.2) L Albumin 2.0 G/DL (3.4-5.0) L Globulin 3.9 g/dL Albumin/Globulin Ratio 0.5 (1.0-2.7) L Triglycerides Level 75 MG/DL (30-150) Cholesterol Level 119 MG/DL (< 200) LDL Cholesterol 64 mg/dL (<100) HDL Cholesterol 46 MG/DL (40-60) Cholesterol/HDL Ratio 2.6 (3.3-4.4) L Vitamin B12 Level 478 PG/ML (193-986) Folate 13.1 NG/ML (8.6-58.9) Microbiology Date/Time Source Procedure Growth Status 02/02/18 06:38 Blood Blood Culture - Preliminary NO GROWTH AFTER 48 HOURS Resulted 02/02/18 06:23 Blood Blood Culture - Preliminary NO GROWTH AFTER 48 HOURS Resulted 02/02/18 08:00 Nasal Nares MRSA Culture - Final Staphylococcus Aureus - Mrsa Complete 02/02/18 20:30 Urine,Clean Catch Urine Culture - Final NO GROWTH AFTER 48 HOURS Complete 02/03/18 19:20 Leg Right Gram Stain - Final Resulted 02/03/18 19:20 Leg Right Wound Culture Pending Resulted 02/02/18 08:00 Rectum - Final NO CARBAPENEM-RESISTANT ENTEROBACTERI... Complete 02/02/18 08:00 Rectum VRE Culture - Final NO VANCOMYCIN RESISTANT ENTEROCOCCUS ... Complete Vinny Tobin M.D. Feb 04, 2018 10:28
[2018-02-04 10:43] LABS: BASOPHILS % (AUTO) 0.4 % (0.0-2.0); EOSINOPHILS % (AUTO) 0.1 % (0.0-3.0); HEMATOCRIT 32.9 % (42.0-52.0); HEMOGLOBIN 10.4 G/DL (14.2-18.0); LYMPHOCYTES % (AUTO) 7.6 % (20.0-45.0); MEAN CORPUSCULAR VOLUME 92 FL (80-99); MONOCYTES % (AUTO) 7.6 % (1.0-10.0); NEUTROPHILS % (AUTO) 84.4 % (45.0-75.0); PLATELET COUNT 165 K/UL (150-450); RED BLOOD COUNT 3.58 M/UL (4.70-6.10); RED CELL DISTRIBUTION WIDTH 12.3 % (11.6-14.8); WHITE BLOOD COUNT 17.4 K/UL (4.8-10.8)
[2018-02-04 10:52] LABS: ANION GAP 8 mmol/L (5-15); BLOOD UREA NITROGEN 39 mg/dL (7-18); CALCIUM 8.5 MG/DL (8.5-10.1); CARBON DIOXIDE 28 MMOL/L (21-32); CHLORIDE 110 MMOL/L (98-107); CREATININE 1.6 MG/DL (0.55-1.30); SODIUM 146 MMOL/L (136-145)
--- NOTE | 2018-02-04 11:43 | Infectious Diseases Prog Note ---
Assessment/Plan Assessment/Plan Abx: None Assessment: Shock Leukocytosis- suspect reactive- r/o acalculous cholecystitis -Abd US: Gallbladder sludge, but no stones. Apparent mild gallbladder wall thickening, probably an artifact of under distention, but if real could indicate acute acalculous cholecystitis, among other possibilities. Consider hepatobiliary nuclear scan if there is high clinical suspicion. Mildly dilated common bile duct. Downstream obstruction not excludable. Consider MRCP for further evaluation, if clinically indicated. -Afebrile -u/a neg -CXR: no acute disease -Bcx p R leg ulcer- no signs of infection Acute renal failure- suspect 2ry to urinary outlet obstruction - ?toxic- started on HD -UDS + opiates -Salicylic acid neg Rhabdomyolysis Elevated LFTs (AST>ALT); shock liver -HIV ab neg Hyperkalemia w/ EKG changes, SP Hypotension/bradycardia upon admission -2ry to above Metabolic encephalopathy; improving NSTEMI Plan: -Continue empiric Zosyn #2 pending HIDA scan -f/u HIDA scan -f/u hep serologies, Bcx -Renal, cards f/u -f/u cx -Monitor CBC/CMP, temperatures -ICU support -Aspiration precautions -wound care as per hosp protocol Thank you for this consultation. Will continue to follow along with you. Discussed with RN. Subjective Allergies: Coded Allergies: MILK (Verified Allergy, Unknown, 02/02/18) Uncoded Allergies: MILK PRODUCTS (Allergy, Unknown, 02/02/18) Subjective afebrile WBC 17 on levo at 14 BCx NTD more alert Objective Vital Signs Last 24 Hour Vital Signs Date Time Temp Pulse Resp B/P (MAP) Pulse Ox O2 Delivery O2 Flow Rate FiO2 02/04/18 11:00 143 16 103/78 (86) 100 02/04/18 10:30 143 16 118/86 (97) 100 02/04/18 10:00 142 17 124/88 (100) 100 02/04/18 09:30 142 17 124/90 (101) 100 02/04/18 09:00 142 16 125/85 (98) 100 02/04/18 08:30 141 20 109/74 (86) 100 02/04/18 08:22 120/82 02/04/18 08:15 120/82 02/04/18 08:00 139 02/04/18 08:00 Venturi Mask 14.0 02/04/18 08:00 98.5 143 17 117/84 (95) 100 98.5 02/04/18 07:30 142 16 116/83 (94) 100 02/04/18 07:00 87 17 Nasal Cannula 2.0 28 02/04/18 07:00 142 16 116/84 (95) 100 02/04/18 07:00 91 Nasal Cannula 2.0 28 02/04/18 07:00 Nasal Cannula 2.0 28 02/04/18 06:45 142 16 112/77 (89) 100 02/04/18 06:30 144 16 110/78 (89) 100 02/04/18 06:15 143 16 105/75 (85) 100 02/04/18 06:00 143 16 116/71 (86) 100 02/04/18 05:45 142 17 97/73 (81) 100 02/04/18 05:30 142 17 100/71 (81) 100 02/04/18 05:15 143 17 100/71 (81) 100 02/04/18 05:00 145 17 96/69 (78) 100 02/04/18 05:00 96/69 02/04/18 04:45 88/50 02/04/18 04:45 157 17 104/52 (69) 100 02/04/18 04:42 97.8 02/04/18 04:30 157 17 84/65 (71) 100 02/04/18 04:15 145 17 84/65 (71) 100 02/04/18 04:00 Nasal Cannula 2.0 02/04/18 04:00 146 20 84/65 (71) 95 18 04:00 84/65 02/04/18 04:00 90 02/04/18 03:45 156 20 83/70 (74) 100 02/04/18 03:39 97.8 02/04/18 03:30 147 17 83/57 (66) 100 02/04/18 03:15 136 18 120/73 (89) 100 02/04/18 03:00 105 18 96/66 (76) 100 02/04/18 03:00 121/62 02/04/18 02:45 103 18 96/69 (78) 100 8/18/18 02:30 105 18 96/71 (79) 100 18 02:15 94 17 93/70 (78) 100 18 02:00 105/69 818 02:00 104 17 105/69 (81) 100 18 01:45 98 18 152/81 (104) 100 02/04/18 01:30 99 18 93/56 (68) 100 02/04/18 01:15 94 19 85/51 (62) 100 02/04/18 01:00 109 19 108/59 (75) 100 18 01:00 84/58 02/04/18 00:45 111 18 108/59 (75) 100 02/04/18 00:30 110 18 115/80 (92) 100 02/04/18 00:15 104 19 91/65 (74) 100 02/04/18 00:00 121/103 02/04/18 00:00 105 02/04/18 00:00 Nasal Cannula 2.0 02/04/18 00:00 97.8 108 18 110/66 (81) 100 97.8 02/03/18 23:45 108 19 121/103 (109) 100 18 23:30 107 19 108/51 (70) 100 18 23:15 121 19 105/80 (88) 100 18 23:00 107 19 112/65 (81) 100 18 23:00 112/65 18 22:45 106 19 89/52 (64) 100 18 22:30 108 19 89/52 (64) 100 18 22:15 115 19 74/47 (56) 100 18 22:00 115 18 91/70 (77) 100 18 22:00 91/70 02/03/18 21:45 115 18 81/52 (62) 100 18 21:30 108 19 108/58 (75) 100 18 21:15 104 19 88/54 (65) 100 18 21:00 112/93 1718 21:00 98 16 112/93 (99) 100 1718 20:45 100 18 88/60 (69) 100 8/17/18 20:30 99 18 88/60 (69) 100 817/18 20:15 104 16 99/54 (69) 100 817/18 20:00 100 817/18 20:00 121/61 817/18 20:00 Nasal Cannula 2.0 817/18 20:00 98.7 96 18 121/61 (81) 100 98.7 817/18 19:45 97 18 122/58 (79) 100 817/18 19:30 100 17 106/63 (77) 100 817/18 19:29 91/72 817/18 19:23 88 17 Nasal Cannula 2.0 28 817/18 19:23 Nasal Cannula 2.0 28 817/18 19:23 99 Nasal Cannula 2.0 28 817/18 19:15 101 17 123/67 (85) 100 817/18 19:00 98 17 91/72 (78) 100 17/18 19:00 91/72 17/18 18:45 93 17 94/64 (74) 100 817/18 18:30 99 17 125/69 (87) 100 817/18 18:15 100 19 103/61 (75) 100 817/18 18:04 98.9 817/18 18:00 98 17 122/86 (98) 100 817/18 17:45 99 18 122/86 (98) 100 817/18 17:30 102 17 94/62 (73) 100 17/18 17:15 98 16 111/78 (89) 100 817/18 17:00 93 15 31/81 (65) 100 817/18 17:00 142/79 817/18 16:45 91 18 142/79 (100) 100 817/18 16:30 87 18 138/71 (93) 100 817/18 16:15 87 18 100/66 (77) 100 17/18 16:00 Nasal Cannula 2.0 17/18 16:00 84 8/17/18 16:00 87 18 96/56 (69) 100 17/18 16:00 138/71 17/18 15:45 90 18 111/60 (77) 100 8/17/18 15:30 102 18 100/66 (77) 100 02/03/18 15:15 99 18 115/59 (77) 100 02/03/18 15:00 85 18 130/80 (97) 100 02/03/18 15:00 130/79 02/03/18 14:45 92 17 110/50 (70) 100 02/03/18 14:30 95 17 128/59 (82) 100 02/03/18 14:15 89 17 138/52 (80) 100 02/03/18 14:00 99 17 105/65 (78) 100 02/03/18 14:00 115/63 02/03/18 13:45 95 17 102/70 (81) 100 02/03/18 13:30 96 17 121/75 (90) 100 02/03/18 13:15 97 17 118/76 (90) 100 02/03/18 13:00 98 17 122/62 (82) 100 02/03/18 13:00 121/75 02/03/18 12:45 97 17 118/76 (90) 100 02/03/18 12:30 95 18 101/66 (78) 100 02/03/18 12:17 123/74 02/03/18 12:15 98 19 110/65 (80) 100 02/03/18 12:00 94 02/03/18 12:00 123/74 02/03/18 12:00 98.9 98 16 138/95 (109) 100 98.9 02/03/18 12:00 Nasal Cannula 2.0 02/03/18 11:45 97 16 110/65 (80) 100 Height (Feet): 6 Height (Inches): 3.00 Weight (Pounds): 177 Objective General Appearance: thin, Chronically Ill Eyes: bilateral eye PERRL ENT: dry mucus membranes Neck: normal inspection, supple, thyroid normal Respiratory: normal inspection, lungs clear, normal breath sounds, no accessory muscle use Cardiovascular #1: normal inspection, normal peripheral pulses, regular rate, rhythm Gastrointestinal: normal bowel sounds, non tender, soft Musculoskeletal: other - chronic wound right lower leg; good rom hips, nontender Neurologic: other - lethargic, moves to painful stimuli and spont, occasional word Psychiatric: other - cannot evaluate Microbiology Date/Time Source Procedure Growth Status 02/02/18 06:38 Blood Blood Culture - Preliminary NO GROWTH AFTER 48 HOURS Resulted 02/02/18 06:23 Blood Blood Culture - Preliminary NO GROWTH AFTER 48 HOURS Resulted 02/02/18 08:00 Nasal Nares MRSA Culture - Final Staphylococcus Aureus - Mrsa Complete 02/02/18 20:30 Urine,Clean Catch Urine Culture - Final NO GROWTH AFTER 48 HOURS Complete 02/03/18 19:20 Leg Right Gram Stain - Final Resulted 02/03/18 19:20 Leg Right Wound Culture Pending Resulted 02/02/18 08:00 Rectum - Final NO CARBAPENEM-RESISTANT ENTEROBACTERI... Complete 02/02/18 08:00 Rectum VRE Culture - Final NO VANCOMYCIN RESISTANT ENTEROCOCCUS ... Complete Laboratory Tests Test 02/03/18 12:50 02/04/18 04:00 02/04/18 04:59 02/04/18 10:10 Troponin I 0.690 ng/mL (0.000-0.056) 0.325 ng/mL (0.000-0.056) Arterial Blood pH 7.360 (7.350-7.450) Arterial Blood Partial Pressure CO2 54.5 mmHg (35.0-45.0) H Arterial Blood Partial Pressure O2 42.5 mmHg (75.0-100.0) Arterial Blood HCO3 30.1 mmol/L (22.0-26.0) H Arterial Blood Oxygen Saturation 44.0 % (92.0-98.0) L Arterial Blood Base Excess 3.7 Trell Test Positive White Blood Count 15.4 K/UL (4.8-10.8) H 17.4 K/UL (4.8-10.8) H Red Blood Count 3.36 M/UL (4.70-6.10) L 3.58 M/UL (4.70-6.10) L Hemoglobin 10.0 G/DL (14.2-18.0) L 10.4 G/DL (14.2-18.0) L Hematocrit 30.6 % (42.0-52.0) L 32.9 % (42.0-52.0) L Mean Corpuscular Volume 91 FL (80-99) 92 FL (80-99) Mean Corpuscular Hemoglobin 29.7 PG (27.0-31.0) 29.0 PG (27.0-31.0) Mean Corpuscular Hemoglobin Concent 32.6 G/DL (32.0-36.0) 31.6 G/DL (32.0-36.0) L Red Cell Distribution Width 12.0 % (11.6-14.8) 12.3 % (11.6-14.8) Platelet Count 132 K/UL (150-450) L 165 K/UL (150-450) Mean Platelet Volume 5.5 FL (6.5-10.1) L 7.7 FL (6.5-10.1) Neutrophils (%) (Auto) 81.9 % (45.0-75.0) H 84.4 % (45.0-75.0) H Lymphocytes (%) (Auto) 8.6 % (20.0-45.0) L 7.6 % (20.0-45.0) L Monocytes (%) (Auto) 9.1 % (1.0-10.0) 7.6 % (1.0-10.0) Eosinophils (%) (Auto) 0.1 % (0.0-3.0) 0.1 % (0.0-3.0) Basophils (%) (Auto) 0.4 % (0.0-2.0) 0.4 % (0.0-2.0) Sodium Level 144 MMOL/L (136-145) 146 MMOL/L (136-145) H Potassium Level 4.1 MMOL/L (3.5-5.1) 4.0 MMOL/L (3.5-5.1) Chloride Level 111 MMOL/L (98-107) H 110 MMOL/L (98-107) H Carbon Dioxide Level 28 MMOL/L (21-32) 28 MMOL/L (21-32) Anion Gap 5 mmol/L (5-15) 8 mmol/L (5-15) Blood Urea Nitrogen 42 mg/dL (7-18) H 39 mg/dL (7-18) H Creatinine 1.6 MG/DL (0.55-1.30) H 1.6 MG/DL (0.55-1.30) H Estimat Glomerular Filtration Rate 52.8 mL/min (>60) 52.8 mL/min (>60) Glucose Level 165 MG/DL (74-106) H 182 MG/DL (74-106) H Uric Acid 6.6 MG/DL (2.6-7.2) Calcium Level 8.4 MG/DL (8.5-10.1) L 8.5 MG/DL (8.5-10.1) Phosphorus Level 2.5 MG/DL (2.5-4.9) Magnesium Level 1.6 MG/DL (1.8-2.4) L Iron Level 15 ug/dL (50-175) L Total Iron Binding Capacity 148 ug/dL (250-450) L Percent Iron Saturation 10 % (15-50) L Unsaturated Iron Binding 133 ug/dL (112-346) Ferritin 592 NG/ML (8-388) H Total Bilirubin 0.6 MG/DL (0.2-1.0) Gamma Glutamyl Transpeptidase 138 U/L (5-85) H Aspartate Amino Transf (AST/SGOT) 878 U/L (15-37) H Alanine Aminotransferase (ALT/SGPT) 299 U/L (12-78) H Alkaline Phosphatase 56 U/L (46-116) Total Creatine Kinase > 44708 U/L (26-308) H Pro-B-Type Natriuretic Peptide 4132 pg/mL (0-125) H Total Protein 5.9 G/DL (6.4-8.2) L Albumin 2.0 G/DL (3.4-5.0) L Globulin 3.9 g/dL Albumin/Globulin Ratio 0.5 (1.0-2.7) L Triglycerides Level 75 MG/DL (30-150) Cholesterol Level 119 MG/DL (< 200) LDL Cholesterol 64 mg/dL (<100) HDL Cholesterol 46 MG/DL (40-60) Cholesterol/HDL Ratio 2.6 (3.3-4.4) L Vitamin B12 Level 478 PG/ML (193-986) Folate 13.1 NG/ML (8.6-58.9) Current Medications Medications (Trade) Dose Ordered Sig/Erlin Route PRN Reason Start Time Stop Time Status Last Admin Dose Admin Acetaminophen (Tylenol) 650 mg Q4H PRN ORAL Mild Pain/Temp > 100.5 02/02/18 20:30 03/04/18 12:29 02/02/18 20:45 Acetaminophen/ Hydrocodone Bitart ([place] 5/325) 1 tab Q4H PRN ORAL Moderate Pain (Pain Scale 4-6) 02/03/18 13:24 02/10/18 13:23 02/04/18 09:49 Albuterol/ Ipratropium (Albuterol/ Ipratropium) 3 ml Q4H PRN HHN Shortness of Breath 02/02/18 12:30 02/07/18 12:29 Aspirin (Ecotrin) 81 mg DAILY ORAL 02/04/18 09:00 03/06/18 08:59 02/04/18 09:51 Chlorhexidine Gluconate (Yari-Hex 2%) 1 applic DAILY@2000 TOPIC 02/02/18 20:00 03/04/18 19:59 02/03/18 19:29 Dextrose (Dextrose 50%) 25 ml PRN IV Hypoglycemia 02/02/18 13:00 03/04/18 12:59 Dextrose (Dextrose 50%) 50 ml PRN IV hypoglycemia 02/02/18 13:00 03/04/18 12:59 Dextrose/Sodium Chloride 1,000 ml @ 75 mls/hr [id number] IV 02/04/18 08:35 03/04/18 08:34 02/04/18 09:36 Heparin Sodium (Porcine) (Heparin 5000 units/ml) 5,000 units EVERY 12 HOURS SUBQ 02/02/18 21:00 03/04/18 20:59 02/04/18 08:20 Nitroglycerin (Ntg) 1 patch Q24H TDERMAL 02/02/18 07:45 03/04/18 07:44 02/04/18 08:15 Norepinephrine Bitartrate 4 mg/ Dextrose 250 ml @ 0 mls/hr Q24H IV 02/03/18 00:40 03/05/18 00:39 02/04/18 08:22 Ondansetron HCl (Zofran) 4 mg Q6H PRN IVP Nausea & Vomiting 02/02/18 12:30 03/04/18 12:29 Piperacillin Sod/ Tazobactam Sod 2.25 gm/Sodium Chloride 55 ml @ 110 mls/hr Q8H IVPB 02/03/18 18:00 02/10/18 17:59 02/04/18 09:35 Polyethylene Glycol (Miralax) 17 gm DAILYPRN PRN ORAL Constipation 02/02/18 12:30 03/04/18 12:29 Quetiapine Fumarate (SEROquel) 25 mg Q4H PRN ORAL Anxiety 02/03/18 09:45 03/05/18 09:44 Quetiapine Fumarate (SEROquel) 100 mg QHS ORAL 02/03/18 21:00 03/05/18 20:59 02/03/18 21:08 Temazepam (Restoril) 15 mg HSPRN PRN ORAL Insomnia 02/02/18 12:30 02/09/18 12:29 Alma Elkins M.D. Feb 04, 2018 11:43
[2018-02-04] MEDS ORDERED: Hydrocortisone 100mg Inj IV SCH (11:45)
--- NOTE | 2018-02-04 11:46 | Nephrology Progress Note ---
Assessment/Plan Problem List: (1) Acute kidney failure (2) Hyperkalemia (3) Rhabdomyolysis (4) Drug abuse (5) Metabolic encephalopathy (6) Shock liver Assessment Acute Renal Failure- Rhabdo Severe HyperKalemia Low BP urinary out let obstruction shock liver Plan no more dialysis Midodrine and Hydrototisone Vanco dialysed 02/02 IV fluid- start PO St eval discussed with RN Avoid nephrotoxics Subjective ROS Limited/Unobtainable: No Constitutional: Reports: malaise Objective Objective Last 24 Hour Vital Signs Date Time Temp Pulse Resp B/P (MAP) Pulse Ox O2 Delivery O2 Flow Rate FiO2 02/04/18 11:00 143 16 103/78 (86) 100 02/04/18 10:30 143 16 118/86 (97) 100 02/04/18 10:00 142 17 124/88 (100) 100 02/04/18 09:30 142 17 124/90 (101) 100 02/04/18 09:00 142 16 125/85 (98) 100 02/04/18 08:30 141 20 109/74 (86) 100 02/04/18 08:22 120/82 02/04/18 08:15 120/82 02/04/18 08:00 139 02/04/18 08:00 Venturi Mask 14.0 02/04/18 08:00 98.5 143 17 117/84 (95) 100 98.5 02/04/18 07:30 142 16 116/83 (94) 100 02/04/18 07:00 87 17 Nasal Cannula 2.0 28 02/04/18 07:00 142 16 116/84 (95) 100 02/04/18 07:00 91 Nasal Cannula 2.0 28 02/04/18 07:00 Nasal Cannula 2.0 28 02/04/18 06:45 142 16 112/77 (89) 100 02/04/18 06:30 144 16 110/78 (89) 100 02/04/18 06:15 143 16 105/75 (85) 100 02/04/18 06:00 143 16 116/71 (86) 100 02/04/18 05:45 142 17 97/73 (81) 100 02/04/18 05:30 142 17 100/71 (81) 100 02/04/18 05:15 143 17 100/71 (81) 100 02/04/18 05:00 145 17 96/69 (78) 100 02/04/18 05:00 96/69 18 04:45 88/50 02/04/18 04:45 157 17 104/52 (69) 100 02/04/18 04:42 97.8 02/04/18 04:30 157 17 84/65 (71) 100 02/04/18 04:15 145 17 84/65 (71) 100 02/04/18 04:00 Nasal Cannula 2.0 02/04/18 04:00 146 20 84/65 (71) 95 02/04/18 04:00 84/65 02/04/18 04:00 90 02/04/18 03:45 156 20 83/70 (74) 100 02/04/18 03:39 97.8 02/04/18 03:30 147 17 83/57 (66) 100 02/04/18 03:15 136 18 120/73 (89) 100 02/04/18 03:00 105 18 96/66 (76) 100 02/04/18 03:00 121/62 02/04/18 02:45 103 18 96/69 (78) 100 02/04/18 02:30 105 18 96/71 (79) 100 02/04/18 02:15 94 17 93/70 (78) 100 02/04/18 02:00 105/69 02/04/18 02:00 104 17 105/69 (81) 100 02/04/18 01:45 98 18 152/81 (104) 100 02/04/18 01:30 99 18 93/56 (68) 100 02/04/18 01:15 94 19 85/51 (62) 100 02/04/18 01:00 109 19 108/59 (75) 100 02/04/18 01:00 84/58 02/04/18 00:45 111 18 108/59 (75) 100 02/04/18 00:30 110 18 115/80 (92) 100 02/04/18 00:15 104 19 91/65 (74) 100 02/04/18 00:00 121/103 02/04/18 00:00 105 02/04/18 00:00 Nasal Cannula 2.0 02/04/18 00:00 97.8 108 18 110/66 (81) 100 97.8 817/18 23:45 108 19 121/103 (109) 100 817/18 23:30 107 19 108/51 (70) 100 8/17/18 23:15 121 19 105/80 (88) 100 8/17/18 23:00 107 19 112/65 (81) 100 817/18 23:00 112/65 817/18 22:45 106 19 89/52 (64) 100 817/18 22:30 108 19 89/52 (64) 100 8/17/18 22:15 115 19 74/47 (56) 100 817/18 22:00 115 18 91/70 (77) 100 17/18 22:00 91/70 817/18 21:45 115 18 81/52 (62) 100 817/18 21:30 108 19 108/58 (75) 100 17/18 21:15 104 19 88/54 (65) 100 17/18 21:00 112/93 17/18 21:00 98 16 112/93 (99) 100 17/18 20:45 100 18 88/60 (69) 100 817/18 20:30 99 18 88/60 (69) 100 17/18 20:15 104 16 99/54 (69) 100 17/18 20:00 100 17/18 20:00 121/61 02/03/18 20:00 Nasal Cannula 2.0 02/03/18 20:00 98.7 96 18 121/61 (81) 100 98.7 17/18 19:45 97 18 122/58 (79) 100 17/18 19:30 100 17 106/63 (77) 100 17/18 19:29 91/72 17/18 19:23 88 17 Nasal Cannula 2.0 28 17/18 19:23 Nasal Cannula 2.0 28 817/18 19:23 99 Nasal Cannula 2.0 28 17/18 19:15 101 17 123/67 (85) 100 817/18 19:00 98 17 91/72 (78) 100 17/18 19:00 91/72 17/18 18:45 93 17 94/64 (74) 100 8/17/18 18:30 99 17 125/69 (87) 100 817/18 18:15 100 19 103/61 (75) 100 817/18 18:04 98.9 817/18 18:00 98 17 122/86 (98) 100 817/18 17:45 99 18 122/86 (98) 100 817/18 17:30 102 17 94/62 (73) 100 17/18 17:15 98 16 111/78 (89) 100 17/18 17:00 93 15 31/81 (65) 100 17/18 17:00 142/79 17/18 16:45 91 18 142/79 (100) 100 17/18 16:30 87 18 138/71 (93) 100 17/18 16:15 87 18 100/66 (77) 100 18 16:00 Nasal Cannula 2.0 18 16:00 84 18 16:00 87 18 96/56 (69) 100 17/18 16:00 138/71 17/18 15:45 90 18 111/60 (77) 100 17/18 15:30 102 18 100/66 (77) 100 02/03/18 15:15 99 18 115/59 (77) 100 17/18 15:00 85 18 130/80 (97) 100 17/18 15:00 130/79 17/18 14:45 92 17 110/50 (70) 100 17/18 14:30 95 17 128/59 (82) 100 17/18 14:15 89 17 138/52 (80) 100 17/18 14:00 99 17 105/65 (78) 100 17/18 14:00 115/63 17/18 13:45 95 17 102/70 (81) 100 17/18 13:30 96 17 121/75 (90) 100 17/18 13:15 97 17 118/76 (90) 100 17/18 13:00 98 17 122/62 (82) 100 17/18 13:00 121/75 17/18 12:45 97 17 118/76 (90) 100 8/17/18 12:30 95 18 101/66 (78) 100 02/03/18 12:17 123/74 02/03/18 12:15 98 19 110/65 (80) 100 02/03/18 12:00 94 02/03/18 12:00 123/74 02/03/18 12:00 98.9 98 16 138/95 (109) 100 98.9 02/03/18 12:00 Nasal Cannula 2.0 02/03/18 11:45 97 16 110/65 (80) 100 Intake and Output 02/03/18 02/04/18 19:00 07:00 Intake Total 2052.5 ml 1480.0 ml Output Total 1650 ml 725 ml Balance 402.5 ml 755.0 ml Intake Oral 200 ml 50 ml IV Total 1852.5 ml 1430.0 ml Output Urine Total 1650 ml 725 ml Laboratory Tests 02/03/18 12:50: Troponin I 0.690H 02/04/18 04:00: Arterial Blood pH 7.360, Arterial Blood Partial Pressure CO2 54.5H, Arterial Blood Partial Pressure O2 42.5*L, Arterial Blood HCO3 30.1H, Arterial Blood Oxygen Saturation 44.0L, Arterial Blood Base Excess 3.7, Trell Test Positive 02/04/18 04:59: Troponin I 0.325H, White Blood Count 15.4H, Red Blood Count 3.36L, Hemoglobin 10.0L, Hematocrit 30.6L, Mean Corpuscular Volume 91, Mean Corpuscular Hemoglobin 29.7, Mean Corpuscular Hemoglobin Concent 32.6, Red Cell Distribution Width 12.0, Platelet Count 132L, Mean Platelet Volume 5.5L, Neutrophils (%) (Auto) 81.9H, Lymphocytes (%) (Auto) 8.6L, Monocytes (%) (Auto) 9.1, Eosinophils (%) (Auto) 0.1, Basophils (%) (Auto) 0.4, Sodium Level 144, Potassium Level 4.1, Chloride Level 111H, Carbon Dioxide Level 28, Anion Gap 5, Blood Urea Nitrogen 42H, Creatinine 1.6H, Estimat Glomerular Filtration Rate 52.8, Glucose Level 165H, Uric Acid 6.6, Calcium Level 8.4L, Phosphorus Level 2.5, Magnesium Level 1.6L, Iron Level 15L, Total Iron Binding Capacity 148L, Percent Iron Saturation 10L, Unsaturated Iron Binding 133, Ferritin 592H, Total Bilirubin 0.6, Gamma Glutamyl Transpeptidase 138H, Aspartate Amino Transf (AST/ SGOT) 878H, Alanine Aminotransferase (ALT/SGPT) 299H, Alkaline Phosphatase 56, Total Creatine Kinase > [id number], Pro-B-Type Natriuretic Peptide 4132H, Total Protein 5.9L, Albumin 2.0L, Globulin 3.9, Albumin/Globulin Ratio 0.5L, Triglycerides Level 75, Cholesterol Level 119, LDL Cholesterol 64, HDL Cholesterol 46, Cholesterol/HDL Ratio 2.6L, Vitamin B12 Level 478, Folate 13.1 02/04/18 10:10: White Blood Count 17.4H, Red Blood Count 3.58L, Hemoglobin 10.4L, Hematocrit 32.9L, Mean Corpuscular Volume 92, Mean Corpuscular Hemoglobin 29.0, Mean Corpuscular Hemoglobin Concent 31.6L, Red Cell Distribution Width 12.3, Platelet Count 165, Mean Platelet Volume 7.7, Neutrophils (%) (Auto) 84.4H, Lymphocytes (%) (Auto) 7.6L, Monocytes (%) (Auto) 7.6, Eosinophils (%) (Auto) 0.1, Basophils (%) (Auto) 0.4, Sodium Level 146H, Potassium Level 4.0, Chloride Level 110H, Carbon Dioxide Level 28, Anion Gap 8, Blood Urea Nitrogen 39H, Creatinine 1.6H, Estimat Glomerular Filtration Rate 52.8, Glucose Level 182H, Calcium Level 8.5 Height (Feet): 6 Height (Inches): 3.00 Weight (Pounds): 177 Cardiovascular: bradycardia Respiratory/Chest: decreased breath sounds Abdomen: soft Extremities: other - ischemic Objective no other change Ruy Colvin MD Feb 04, 2018 11:46
[2018-02-04] MEDS ORDERED: Vancomycin 1.5gm/D5W 250ml 250 ML IVPB SCH (14:00)
[2018-02-04] MEDS: Hydrocortisone 100mg Inj IV SCH ×2 (14:44→21:46)
[2018-02-04] MEDS ORDERED: Tubing IV Secondary IV ONE (17:18)
[2018-02-04] MEDS ORDERED: NS 275ml ONE (17:18)
[2018-02-04] MEDS ORDERED: D5NS 1000ml IV ONE (17:18)
[2018-02-04] MEDS ORDERED: D5W 275ml ONE (17:20)
[2018-02-04] MEDS: Dyna-Hex 2% Top Sol 2oz TOPIC SCH (20:24)
[2018-02-05] VITALS (35 sets, daily range): BP systolic 88–141; BP diastolic 66–94
[2018-02-05] MEDS: Piperacillin/Tazobactam 2.25 GM in NS 55 ML IVPB SCH (01:32)
[2018-02-05] MEDS: Norco 5mg/325mg tab ORAL PRN ×3 (04:33→14:52)
[2018-02-05] MEDS: D5NS 1,000 ML IV SCH ×3 (04:33→20:04)
[2018-02-05 05:27] LABS: HEMATOCRIT 25.6 % (42.0-52.0); HEMOGLOBIN 8.5 G/DL (14.2-18.0); MEAN CORPUSCULAR VOLUME 92 FL (80-99); PLATELET COUNT 122 K/UL (150-450); RED BLOOD COUNT 2.78 M/UL (4.70-6.10); RED CELL DISTRIBUTION WIDTH 12.3 % (11.6-14.8); WHITE BLOOD COUNT 12.6 K/UL (4.8-10.8)
[2018-02-05] MEDS: Hydrocortisone 100mg Inj IV SCH ×3 (05:32→21:45)
[2018-02-05 05:40] LABS: ALANINE AMINOTRANSFERASE 263 U/L (12-78); ALBUMIN 2.1 G/DL (3.4-5.0); ALBUMIN/GLOBULIN RATIO 0.6 (1.0-2.7); ALKALINE PHOSPHATASE 50 U/L (46-116); ANION GAP 8 mmol/L (5-15); ASPARTATE AMINO TRANSFERASE 665 U/L (15-37); BILIRUBIN,TOTAL 0.4 MG/DL (0.2-1.0); BLOOD UREA NITROGEN 32 mg/dL (7-18); CALCIUM 8.6 MG/DL (8.5-10.1); CARBON DIOXIDE 25 MMOL/L (21-32); CHLORIDE 112 MMOL/L (98-107); CREATININE 1.4 MG/DL (0.55-1.30); POTASSIUM 4.1 MMOL/L (3.5-5.1); SODIUM 145 MMOL/L (136-145)
[2018-02-05 05:49] LABS: CREATINE KINASE 9990 U/L (26-308)
[2018-02-05] MEDS ORDERED: Albuterol/Ipratropium 3ml neb HHN PRN (08:30)
[2018-02-05] MEDS: Aspirin EC 81mg tab ORAL SCH (08:59)
[2018-02-05] MEDS: Nitroglycerin Patch 0.2mg/hr TDERMAL SCH (08:59)
[2018-02-05] MEDS ORDERED: Phospha 250 Neutral tab ORAL SCH (09:00)
[2018-02-05] MEDS: Dakin's 0.125% Soln (Quarter Strength) 16oz TOPIC SCH (09:00)
[2018-02-05] MEDS: Heparin 5000 units/ml inj SUBQ SCH ×2 (09:02→20:34)
--- NOTE | 2018-02-05 09:55 | Pulmonolgy Critical Care Note ---
Critical Care - Asmt/Plan Assessment/Plan: ASSESSMENT sepsis shock acute metabolic encephalopathy due to acute renal failure and rhabdo -resolved elevated troponin, possible NSTEMI acute renal failure, requiring start of HD-resolved hyperkalemia-resolved rhabdomyolysis transaminitis, possibly shock fever urinary outlet obstruction hx of CVA CAD hx of HTN right leg ulcer probable PVD anemia of chronic disease bipolar disorder PLAN of CARE ICU status pressors and try to wean to keep MAP >65 IVF ,increase rate increase Midodrine s/p HD 02/02, after placement temporary HD cath by surgeon creatinine down to 1.4 -stable renal ultrasound pending monitor renal parameters, electrolytes, avoid nephrotoxic, correct electrolytes as needed- today replace Mg and P trend CK started on oral ST eval pending cardio follows trend troponin, trending down continue ASA, and hold statin given elevated LFT ECHO with pEF 60-65% and RVSP of 33 O2 titrate to keep pulse ox above 92% pulmonary toilet prn CXR clear Arterial Duplex BLE no evidence of stenosis , but with eviddence of ischemia consider vascular surgery eval trend LFT , still high, possibly shock liver hepatitis panel pending HIV status negative abdominal ultrasound with biliary sludge considers GI eval. monitor H&H with goal to keep hemoglobin above 7 anemia w/up c/w anemia of chronic disease , high ferritin level wound care as per protocol supportive care continue Seroquel DVT prophylaxis case discussed and evaluated by supervising physician Critical Care - Objective Last 24 Hour Vital Signs Date Time Temp Pulse Resp B/P (MAP) Pulse Ox O2 Delivery O2 Flow Rate FiO2 02/05/18 08:59 116/76 02/05/18 08:00 140 14 116/76 (89) 100 02/05/18 08:00 Venturi Mask 15.0 02/05/18 07:00 139 14 105/82 (90) 100 02/05/18 07:00 105/82 02/05/18 06:31 86 18 Venturi Mask 14.0 55 02/05/18 06:31 98 Venturi Mask 14.0 55 02/05/18 06:31 Venturi Mask 14.0 55 02/05/18 06:30 139 14 108/77 (87) 100 02/05/18 06:15 139 14 111/78 (89) 100 02/05/18 06:00 140 14 88/70 (76) 100 02/05/18 06:00 88/70 02/05/18 05:30 140 16 95/66 (76) 100 02/05/18 05:00 107/81 02/05/18 05:00 139 24 107/81 (90) 100 02/05/18 04:33 97.8 02/05/18 04:30 139 20 108/67 (81) 100 02/05/18 04:00 Venturi Mask 15.0 02/05/18 04:00 98.2 139 16 129/88 (102) 100 98.2 02/05/18 04:00 138 02/05/18 03:30 136 16 112/80 (91) 100 02/05/18 03:00 138 14 97/78 (84) 100 02/05/18 03:00 103/72 02/05/18 02:30 138 16 101/68 (79) 100 02/05/18 02:00 93/70 02/05/18 02:00 138 16 101/68 (79) 100 02/05/18 01:30 139 14 108/79 (89) 100 02/05/18 01:00 106/76 02/05/18 01:00 138 16 94/70 (78) 100 02/05/18 00:30 137 16 102/72 (82) 100 02/05/18 00:00 137 02/05/18 00:00 Venturi Mask 15.0 02/05/18 00:00 97.8 137 15 104/72 (83) 100 97.8 02/05/18 00:00 104/73 02/04/18 23:30 139 14 94/70 (78) 100 02/04/18 23:00 139 16 91/75 (80) 100 18 23:00 91/75 18 22:30 88/52 18 22:30 139 15 88/52 (64) 100 18 22:00 110/69 1818 22:00 141 17 110/69 (83) 100 02/04/18 21:00 139 17 89/56 (67) 100 02/04/18 21:00 89/56 02/04/18 20:00 Venturi Mask 15.0 02/04/18 20:00 98.4 139 14 125/84 (98) 99 98.4 02/04/18 20:00 139 02/04/18 19:22 Venturi Mask 14.0 55 02/04/18 19:22 99 17 Venturi Mask 14.0 55 02/04/18 19:22 97 Venturi Mask 14.0 55 02/04/18 19:00 138 12 113/76 (88) 100 02/04/18 18:00 139 11 109/80 (90) 98 02/04/18 17:30 138 16 120/89 (99) 95 02/04/18 17:00 98.1 138 18 104/71 (82) 100 98.1 02/04/18 16:30 138 19 108/84 (92) 92 02/04/18 16:00 138 15 118/84 (95) 100 02/04/18 16:00 Nasal Cannula 2.0 02/04/18 16:00 138 02/04/18 15:30 138 16 123/85 (98) 96 02/04/18 15:14 123/80 02/04/18 15:00 138 16 129/84 (99) 96 02/04/18 14:30 138 15 114/76 (89) 100 02/04/18 14:00 138 15 131/92 (105) 100 02/04/18 13:30 140 16 127/77 (94) 100 02/04/18 13:00 140 14 110/70 (83) 100 02/04/18 12:00 98.3 139 16 108/76 (87) 100 98.3 02/04/18 12:00 141 02/04/18 12:00 Nasal Cannula 2.0 02/04/18 11:00 143 16 103/78 (86) 100 02/04/18 10:30 143 16 118/86 (97) 100 02/04/18 10:00 142 17 124/88 (100) 100 Objective: Status: awake, alert, responsive Condition: critical HEENT: atraumatic, normocephalic Neck: full ROM Lungs: clear Heart: HR/BP unstable - on pressors Abdomen: soft, non-tender, active bowel sounds Extremities: no C/C/E, cool R feet Micro: Microbiology Date/Time Source Procedure Growth Status 02/02/18 20:30 Urine,Clean Catch Urine Culture - Final NO GROWTH AFTER 48 HOURS Complete 02/03/18 19:20 Leg Right Gram Stain - Final Resulted 02/03/18 19:20 Wound Culture - Preliminary Staphylococcus Species Gram Negative Joey Resulted Accucheck: 156 Critical Care - Subjective Interval Events: leukocytosis trending down, afebrile still on Levophed, but weaned to 3 mcg/min creat stable Arterial Duplex with evidence of PVD RLE HH trending down low Mg and P Condition: critical IV Access: central - LIJ TL CL intact, R jugular HD catheter intact EKG Rhythm: Sinus Tachycardia FI02: 55 Sputum Amount: None Fluids: D5NS at 125 Drips: Levophed at 3 mcg/min I&O: Intake and Output 02/04/18 02/05/18 19:00 07:00 Intake Total 1140 ml 2072.50 ml Output Total 1050 ml 710 ml Balance 90 ml 1362.50 ml Intake Oral 130 ml 420 ml IV Total 1010 ml 1652.50 ml Output Urine Total 1050 ml 710 ml CXR: 02/04 No significant change. Tubes and lines as outlined above. Lungs and pleural spaces are clear. Linsey Boo FLIGHT TEST ENGINEER Feb 05, 2018 09:55
[2018-02-05] MEDS: Zosyn 3.375gm q8h **Extended infusion IVPB SCH ×4 (10:15→17:36)
--- NOTE | 2018-02-05 10:22 | Nephrology Progress Note ---
Assessment/Plan Problem List: (1) Acute kidney failure (2) Hyperkalemia (3) Rhabdomyolysis (4) Drug abuse (5) Metabolic encephalopathy (6) Shock liver Assessment Acute Renal Failure- Rhabdo Severe HyperKalemia Low BP urinary out let obstruction shock liver Plan no more dialysis Midodrine and Hydrototisone Vanco dialysed 02/02 IV fluid- albumin bolus start PO St eval discussed with RN Avoid nephrotoxics Subjective ROS Limited/Unobtainable: No Constitutional: Reports: weakness Objective Objective Last 24 Hour Vital Signs Date Time Temp Pulse Resp B/P (MAP) Pulse Ox O2 Delivery O2 Flow Rate FiO2 02/05/18 08:59 116/76 02/05/18 08:00 140 14 116/76 (89) 100 02/05/18 08:00 Venturi Mask 15.0 02/05/18 07:00 139 14 105/82 (90) 100 02/05/18 07:00 105/82 02/05/18 06:31 86 18 Venturi Mask 14.0 55 02/05/18 06:31 98 Venturi Mask 14.0 55 02/05/18 06:31 Venturi Mask 14.0 55 02/05/18 06:30 139 14 108/77 (87) 100 02/05/18 06:15 139 14 111/78 (89) 100 02/05/18 06:00 140 14 88/70 (76) 100 02/05/18 06:00 88/70 02/05/18 05:30 140 16 95/66 (76) 100 02/05/18 05:00 107/81 02/05/18 05:00 139 24 107/81 (90) 100 02/05/18 04:33 97.8 02/05/18 04:30 139 20 108/67 (81) 100 02/05/18 04:00 Venturi Mask 15.0 02/05/18 04:00 98.2 139 16 129/88 (102) 100 98.2 02/05/18 04:00 138 02/05/18 03:30 136 16 112/80 (91) 100 02/05/18 03:00 138 14 97/78 (84) 100 02/05/18 03:00 103/72 02/05/18 02:30 138 16 101/68 (79) 100 02/05/18 02:00 93/70 8/19/18 02:00 138 16 101/68 (79) 100 02/05/18 01:30 139 14 108/79 (89) 100 02/05/18 01:00 106/76 02/05/18 01:00 138 16 94/70 (78) 100 02/05/18 00:30 137 16 102/72 (82) 100 02/05/18 00:00 137 02/05/18 00:00 Venturi Mask 15.0 02/05/18 00:00 97.8 137 15 104/72 (83) 100 97.8 02/05/18 00:00 104/73 02/04/18 23:30 139 14 94/70 (78) 100 02/04/18 23:00 139 16 91/75 (80) 100 02/04/18 23:00 91/75 02/04/18 22:30 88/52 02/04/18 22:30 139 15 88/52 (64) 100 02/04/18 22:00 110/69 02/04/18 22:00 141 17 110/69 (83) 100 02/04/18 21:00 139 17 89/56 (67) 100 02/04/18 21:00 89/56 02/04/18 20:00 Venturi Mask 15.0 02/04/18 20:00 98.4 139 14 125/84 (98) 99 98.4 18 20:00 139 18 19:22 Venturi Mask 14.0 55 18 19:22 99 17 Venturi Mask 14.0 55 18 19:22 97 Venturi Mask 14.0 55 18 19:00 138 12 113/76 (88) 100 02/04/18 18:00 139 11 109/80 (90) 98 18 17:30 138 16 120/89 (99) 95 18 17:00 98.1 138 18 104/71 (82) 100 98.1 18 16:30 138 19 108/84 (92) 92 02/04/18 16:00 138 15 118/84 (95) 100 02/04/18 16:00 Nasal Cannula 2.0 02/04/18 16:00 138 8/18/18 15:30 138 16 123/85 (98) 96 02/04/18 15:14 123/80 02/04/18 15:00 138 16 129/84 (99) 96 02/04/18 14:30 138 15 114/76 (89) 100 02/04/18 14:00 138 15 131/92 (105) 100 02/04/18 13:30 140 16 127/77 (94) 100 02/04/18 13:00 140 14 110/70 (83) 100 02/04/18 12:00 98.3 139 16 108/76 (87) 100 98.3 02/04/18 12:00 141 02/04/18 12:00 Nasal Cannula 2.0 02/04/18 11:00 143 16 103/78 (86) 100 02/04/18 10:30 143 16 118/86 (97) 100 Intake and Output 02/04/18 02/05/18 19:00 07:00 Intake Total 1140 ml 2072.50 ml Output Total 1050 ml 710 ml Balance 90 ml 1362.50 ml Intake Oral 130 ml 420 ml IV Total 1010 ml 1652.50 ml Output Urine Total 1050 ml 710 ml Laboratory Tests 02/05/18 05:00: White Blood Count 12.6H, Red Blood Count 2.78L, Hemoglobin 8.5L, Hematocrit 25.6L, Mean Corpuscular Volume 92, Mean Corpuscular Hemoglobin 30.6, Mean Corpuscular Hemoglobin Concent 33.3, Red Cell Distribution Width 12.3, Platelet Count 122L, Mean Platelet Volume 6.1L, Neutrophils (%) (Auto) , Lymphocytes (%) (Auto) , Monocytes (%) (Auto) , Eosinophils (%) (Auto) , Basophils (%) (Auto) , Differential Total Cells Counted 100, Neutrophils % (Manual) 91H, Lymphocytes % (Manual) 5L, Monocytes % (Manual) 3, Eosinophils % (Manual) 0, Basophils % ( Manual) 0, Band Neutrophils 1, Platelet Estimate DecreasedL, Platelet Morphology Normal, Hypochromasia 1+, Sodium Level 145, Potassium Level 4.1, Chloride Level 112H, Carbon Dioxide Level 25, Anion Gap 8, Blood Urea Nitrogen 32H, Creatinine 1.4H, Estimat Glomerular Filtration Rate > 60, Glucose Level 221H, Uric Acid 5.2, Calcium Level 8.6, Phosphorus Level 2.0L, Magnesium Level 1.4L, Total Bilirubin 0.4, Gamma Glutamyl Transpeptidase 114H, Aspartate Amino Transf (AST/SGOT) 665H, Alanine Aminotransferase (ALT/SGPT) 263H, Alkaline Phosphatase 50, Total Creatine Kinase 9990H, Troponin I 0.362H, C-Reactive Protein, Quantitative 7.9H, Pro-B-Type Natriuretic Peptide 8653H, Total Protein 5.5L, Albumin 2.1L, Globulin 3.4, Albumin/Globulin Ratio 0.6L, Random Vancomycin Level 7.7 Height (Feet): 6 Height (Inches): 3.00 Weight (Pounds): 181 General Appearance: no apparent distress Cardiovascular: tachycardia Respiratory/Chest: decreased breath sounds Abdomen: soft Extremities: other - ischemic Objective no other change Ruy Colvin MD Feb 05, 2018 10:22
[2018-02-05] MEDS ORDERED: Sodium Phosphate 30 MM in NS 275 ML IVPB ONE (11:00)
[2018-02-05] MEDS ORDERED: Vancomycin 1.5gm/D5W 250ml 250 ML IVPB ONE (11:30)
[2018-02-05] MEDS: Midodrine 10mg tab ORAL SCH ×2 (12:29→17:36)
--- NOTE | 2018-02-05 13:21 | Consultation ---
History of Present Illness General Date patient seen: Feb 05, 2018 Chief Complaint: Altered Level of Consciousness Reason for Consultation: lower extremity wounds Present Illness HPI 67M multiple medical comorbidities presented recently with altered status and septic. Seen by myself on admission for urgent line and HD cath insertion. Since improving but noted to have wounds on lower extremity which were cultured and growing multiple organisms. wounds complex ad require surgical care. surgery called to evaluate and assist in care and management. patient seen, chart reviewed, patient examined. since admission he is much improved. currently he is alert, awake, and now responsive. cannot recall what happened to him but states he is happy to be alive. states wounds on legs chronic and he has not taken good care of them. have been infected in the past. states present for months and worsening. Allergies: Coded Allergies: MILK (Verified Allergy, Unknown, 02/02/18) Uncoded Allergies: MILK PRODUCTS (Allergy, Unknown, 02/02/18) Medication History Scheduled Ascorbic Acid* (Vitamin C*), 500 MG ORAL DAILY, (Reported) Lisinopril* (Lisinopril*), 10 MG ORAL DAILY, (Reported) Mag Hydrox/Al Hydrox/Simeth (Alum-Mag Hydroxide-Simeth Liq), 30 ML PO EVERY 6 HOURS, (Reported) Magnesium Hydroxide* (Milk Of Magnesia*), 30 ML ORAL BEDTIME, (Reported) Metoprolol Succinate* (Metoprolol Succinate*), 50 MG ORAL EVERY 12 HOURS, ( Reported) Montelukast Sodium* (Montelukast Sodium*), 10 MG ORAL DAILY, (Reported) Multivitamin With Minerals (Multivitamins With Minerals*), 1 TAB ORAL DAILY, ( Reported) Pantoprazole* (Protonix*), 40 MG ORAL DAILY, (Reported) Quetiapine Fumarate* (Seroquel*), 100 MG ORAL BEDTIME, (Reported) Zinc Sulfate (Zinc Sulfate*), 220 MG ORAL DAILY, (Reported) Scheduled PRN Acetaminophen* (Acetaminophen 325MG Tablet*), 650 MG ORAL Q4H PRN for Mild Pain (Pain Scale 1-3), (Reported) Acetaminophen* (Acetaminophen 325MG Tablet*), 650 MG ORAL Q4H PRN for DANNY >101, (Reported) Patient History History Provided By: Patient, Medical Record, PMD Healthcare decision maker Resuscitation status Full Code Advanced Directive on File Past Medical/Surgical History Past Medical/Surgical History: (1) Leg wound, right (2) Rhabdomyolysis (3) Hyperkalemia (4) Acute kidney failure (5) NSTEMI (non-ST elevated myocardial infarction) (6) Drug abuse (7) CAD (coronary artery disease) (8) HTN (hypertension) (9) CVA (cerebral vascular accident) (10) Bipolar 1 disorder (11) Metabolic encephalopathy (12) Shock liver Review of Systems All Other Systems: negative except mentioned in HPI Physical Exam General Appearance: no apparent distress, alert Lines, tubes and drains: central line HEENT: normocephalic, mucous membranes moist Neck: normal inspection Respiratory/Chest: normal breath sounds, no respiratory distress, no accessory muscle use Cardiovascular/Chest: tachycardia Abdomen: non tender, soft, no organomegaly, no mass Extremities: other - see photos Skin Exam: warm/dry Neurologic: alert, responsive Last 24 Hour Vital Signs Date Time Temp Pulse Resp B/P (MAP) Pulse Ox O2 Delivery O2 Flow Rate FiO2 02/05/18 12:00 Venturi Mask 15.0 02/05/18 11:52 137 02/05/18 10:00 138 16 107/75 (86) 100 02/05/18 09:00 139 18 113/79 (90) 100 02/05/18 08:59 116/76 02/05/18 08:00 140 14 116/76 (89) 100 02/05/18 08:00 140 02/05/18 08:00 Venturi Mask 15.0 02/05/18 07:00 139 14 105/82 (90) 100 02/05/18 07:00 105/82 02/05/18 06:31 86 18 Venturi Mask 14.0 55 02/05/18 06:31 98 Venturi Mask 14.0 55 02/05/18 06:31 Venturi Mask 14.0 55 02/05/18 06:30 139 14 108/77 (87) 100 02/05/18 06:15 139 14 111/78 (89) 100 02/05/18 06:00 140 14 88/70 (76) 100 02/05/18 06:00 88/70 02/05/18 05:30 140 16 95/66 (76) 100 02/05/18 05:00 107/81 02/05/18 05:00 139 24 107/81 (90) 100 18 04:33 97.8 02/05/18 04:30 139 20 108/67 (81) 100 02/05/18 04:00 Venturi Mask 15.0 02/05/18 04:00 98.2 139 16 129/88 (102) 100 98.2 02/05/18 04:00 138 818 03:30 136 16 112/80 (91) 100 02/05/18 03:00 138 14 97/78 (84) 100 02/05/18 03:00 103/72 02/05/18 02:30 138 16 101/68 (79) 100 02/05/18 02:00 93/70 02/05/18 02:00 138 16 101/68 (79) 100 02/05/18 01:30 139 14 108/79 (89) 100 02/05/18 01:00 106/76 02/05/18 01:00 138 16 94/70 (78) 100 02/05/18 00:30 137 16 102/72 (82) 100 02/05/18 00:00 137 02/05/18 00:00 Venturi Mask 15.0 02/05/18 00:00 97.8 137 15 104/72 (83) 100 97.8 02/05/18 00:00 104/73 02/04/18 23:30 139 14 94/70 (78) 100 18 23:00 139 16 91/75 (80) 100 18 23:00 91/75 18 22:30 88/52 1818 22:30 139 15 88/52 (64) 100 1818 22:00 110/69 818/18 22:00 141 17 110/69 (83) 100 18 21:00 139 17 89/56 (67) 100 18 21:00 89/56 18 20:00 Venturi Mask 15.0 1818 20:00 98.4 139 14 125/84 (98) 99 98.4 18 20:00 139 818/18 19:22 Venturi Mask 14.0 55 818/18 19:22 99 17 Venturi Mask 14.0 55 818/18 19:22 97 Venturi Mask 14.0 55 02/04/18 19:00 138 12 113/76 (88) 100 02/04/18 18:00 139 11 109/80 (90) 98 02/04/18 17:30 138 16 120/89 (99) 95 02/04/18 17:00 98.1 138 18 104/71 (82) 100 98.1 02/04/18 16:30 138 19 108/84 (92) 92 02/04/18 16:00 138 15 118/84 (95) 100 02/04/18 16:00 Nasal Cannula 2.0 02/04/18 16:00 138 02/04/18 15:30 138 16 123/85 (98) 96 02/04/18 15:14 123/80 02/04/18 15:00 138 16 129/84 (99) 96 02/04/18 14:30 138 15 114/76 (89) 100 02/04/18 14:00 138 15 131/92 (105) 100 02/04/18 13:30 140 16 127/77 (94) 100 Intake and Output 02/04/18 02/05/18 19:00 07:00 Intake Total 1140 ml 2072.50 ml Output Total 1050 ml 710 ml Balance 90 ml 1362.50 ml Intake Oral 130 ml 420 ml IV Total 1010 ml 1652.50 ml Output Urine Total 1050 ml 710 ml Laboratory Tests Test 02/05/18 05:00 White Blood Count 12.6 K/UL (4.8-10.8) H Red Blood Count 2.78 M/UL (4.70-6.10) L Hemoglobin 8.5 G/DL (14.2-18.0) L Hematocrit 25.6 % (42.0-52.0) L Mean Corpuscular Volume 92 FL (80-99) Mean Corpuscular Hemoglobin 30.6 PG (27.0-31.0) Mean Corpuscular Hemoglobin Concent 33.3 G/DL (32.0-36.0) Red Cell Distribution Width 12.3 % (11.6-14.8) Platelet Count 122 K/UL (150-450) L Mean Platelet Volume 6.1 FL (6.5-10.1) L Neutrophils (%) (Auto) % (45.0-75.0) Lymphocytes (%) (Auto) % (20.0-45.0) Monocytes (%) (Auto) % (1.0-10.0) Eosinophils (%) (Auto) % (0.0-3.0) Basophils (%) (Auto) % (0.0-2.0) Differential Total Cells Counted 100 Neutrophils % (Manual) 91 % (45-75) H Lymphocytes % (Manual) 5 % (20-45) L Monocytes % (Manual) 3 % (1-10) Eosinophils % (Manual) 0 % (0-3) Basophils % (Manual) 0 % (0-2) Band Neutrophils 1 % (0-8) Platelet Estimate Decreased L Platelet Morphology Normal Hypochromasia 1+ Sodium Level 145 MMOL/L (136-145) Potassium Level 4.1 MMOL/L (3.5-5.1) Chloride Level 112 MMOL/L (98-107) H Carbon Dioxide Level 25 MMOL/L (21-32) Anion Gap 8 mmol/L (5-15) Blood Urea Nitrogen 32 mg/dL (7-18) H Creatinine 1.4 MG/DL (0.55-1.30) H Estimat Glomerular Filtration Rate > 60 mL/min (>60) Glucose Level 221 MG/DL (74-106) H Hemoglobin A1c 6.3 % (4.3-6.0) H Uric Acid 5.2 MG/DL (2.6-7.2) Calcium Level 8.6 MG/DL (8.5-10.1) Phosphorus Level 2.0 MG/DL (2.5-4.9) L Magnesium Level 1.4 MG/DL (1.8-2.4) L Total Bilirubin 0.4 MG/DL (0.2-1.0) Gamma Glutamyl Transpeptidase 114 U/L (5-85) H Aspartate Amino Transf (AST/SGOT) 665 U/L (15-37) H Alanine Aminotransferase (ALT/SGPT) 263 U/L (12-78) H Alkaline Phosphatase 50 U/L (46-116) Total Creatine Kinase 9990 U/L (26-308) H Troponin I 0.362 ng/mL (0.000-0.056) C-Reactive Protein, Quantitative 7.9 mg/dL (0.00-0.90) H Pro-B-Type Natriuretic Peptide 8653 pg/mL (0-125) H Total Protein 5.5 G/DL (6.4-8.2) L Albumin 2.1 G/DL (3.4-5.0) L Globulin 3.4 g/dL Albumin/Globulin Ratio 0.6 (1.0-2.7) L Random Vancomycin Level 7.7 ug/mL Height (Feet): 6 Height (Inches): 3.00 Weight (Pounds): 181 Medications Current Medications Medications (Trade) Dose Ordered Sig/Erlin Route PRN Reason Start Time Stop Time Status Last Admin Dose Admin Acetaminophen (Tylenol) 650 mg Q4H PRN ORAL Mild Pain/Temp > 100.5 02/02/18 20:30 03/04/18 12:29 02/04/18 17:10 Acetaminophen/ Hydrocodone Bitart ([place] 5/325) 1 tab Q4H PRN ORAL Moderate Pain (Pain Scale 4-6) 02/03/18 13:24 02/10/18 13:23 02/05/18 08:59 Albuterol/ Ipratropium (Albuterol/ Ipratropium) 3 ml Q4H PRN HHN Shortness of Breath 02/05/18 08:30 02/10/18 08:29 Aspirin (Ecotrin) 81 mg DAILY ORAL 02/04/18 09:00 03/06/18 08:59 02/05/18 08:59 Chlorhexidine Gluconate (Yari-Hex 2%) 1 applic DAILY@2000 TOPIC 02/02/18 20:00 03/04/18 19:59 02/04/18 20:24 Dextrose (Dextrose 50%) 25 ml PRN IV Hypoglycemia 02/02/18 13:00 03/04/18 12:59 Dextrose (Dextrose 50%) 50 ml PRN IV hypoglycemia 02/02/18 13:00 03/04/18 12:59 Dextrose/Sodium Chloride 1,000 ml @ 125 mls/hr Q8H IV 02/04/18 12:00 03/06/18 11:59 02/05/18 12:27 Heparin Sodium (Porcine) (Heparin 5000 units/ml) 5,000 units EVERY 12 HOURS SUBQ 02/02/18 21:00 03/04/18 20:59 02/05/18 09:02 Hydrocortisone (Solu-CORTEF) 100 mg EVERY 8 HOURS IV 02/04/18 14:00 03/06/18 13:59 02/05/18 05:32 Magnesium Sulfate 100 ml @ 100 mls/hr Q1H IVPB 02/05/18 11:30 02/05/18 13:29 02/05/18 12:29 Midodrine (Pro-Amatine) 10 mg THREE TIMES A DAY ORAL 02/05/18 13:00 03/06/18 12:59 02/05/18 12:29 Nitroglycerin (Ntg) 1 patch Q24H TDERMAL 02/02/18 07:45 03/04/18 07:44 02/05/18 08:59 Norepinephrine Bitartrate 4 mg/ Dextrose 250 ml @ 0 mls/hr Q24H IV 02/03/18 00:40 03/05/18 00:39 02/04/18 15:14 Ondansetron HCl (Zofran) 4 mg Q6H PRN IVP Nausea & Vomiting 02/02/18 12:30 03/04/18 12:29 Pantoprazole (Protonix) 40 mg EVERY 12 HOURS ORAL 02/05/18 21:00 03/07/18 20:59 Piperacillin Sod/ Tazobactam Sod 3.375 gm/Sodium Chloride 110 ml @ 27.5 mls/hr Q8HR@0200,1000,1800 IVPB 02/05/18 10:00 02/12/18 09:59 02/05/18 10:15 Polyethylene Glycol (Miralax) 17 gm DAILYPRN PRN ORAL Constipation 02/02/18 12:30 03/04/18 12:29 Quetiapine Fumarate (SEROquel) 25 mg Q4H PRN ORAL Anxiety 02/03/18 09:45 03/05/18 09:44 Quetiapine Fumarate (SEROquel) 100 mg QHS ORAL 02/03/18 21:00 03/05/18 20:59 02/04/18 20:31 Sodium Hypochlorite (Dakin's Quarter Strength) 1 applic DAILY TOPIC 02/05/18 09:00 03/07/18 08:59 02/05/18 09:00 Sodium Phosphate 30 mm/Sodium Chloride 285 ml @ 47.5 mls/hr ONCE ONCE IVPB 02/05/18 11:00 8/19/18 16:59 02/05/18 11:20 Temazepam (Restoril) 15 mg HSPRN PRN ORAL Insomnia 02/02/18 12:30 02/09/18 12:29 02/04/18 21:46 Vancomycin HCl/ Dextrose 250 ml @ 125 mls/hr ONCE ONCE IVPB 02/05/18 11:30 02/05/18 13:29 02/05/18 12:27 Assessment/Plan Problem List: (1) Leg wound, right Assessment & Plan: Foul odor noted from wounds on RLE and cool to touch Hx of skin grafts done on RLE this past December Wound [place] R tibia (L)18cm x (W)9.3cm with yellow/salazar necrosis.Small amt purulent exudate noted to drsg upon removal of drsg.wound posterior R tibia (L) 16cm x (W)7.4cm with 75%soft yellow/salazar necrosis.small amt malodorous purulent exudate noted to drsg. pt observed to have #2 small ulcers to lateral L tibia( proximal) wound (L)0.8cm x (W)0.4cm .wound bed clean -red and dry. Dark pigmentation periwound.RLE Distally (L)1.6cm x (W)0.7cm wound bed clean /dry with dark pigmentation periwound . Full Thickness pressure injury to R Buttocks with 95% yellow slough centrally with marginal erythema ,(+) induration .No odor noted. All preventive measure in place .Pt has surface support overlay on bed .Positioned with pillow in bed and both heels are off-loaded. Tx Plan : Apply TheraHoney with Biatain Drsg R buttocks. Dakin's 0.125% candelaria wet to dry with ABD and wrap with Kerlix daily and prn. Reposition at least every 2hours . Off-load heels with pillow . ICD Codes: S81.801A - Unspecified open wound, right lower leg, initial encounter SNOMED: [id number], [id number] Qualifiers: Qualified Codes: S81.801A - Unspecified open wound, right lower leg, initial encounter Goyo Osuna Feb 05, 2018 13:21
--- NOTE | 2018-02-05 14:41 | Cardiology Report ---
APPROVED REPORT EXAM: Two-dimensional and M-mode echocardiogram with Doppler and color Doppler. M-Mode DIMENSIONS IVSd1.5 (0.7-1.1cm)Left Atrium (MM)3.8 (1.6-4.0cm) LVDd4.5 (3.5-5.6cm)Aortic Root4.2 (2.0-3.7cm) PWd1.6 (0.7-1.1cm)Aortic Cusp Exc.1.6 (1.5-2.0cm) IVSs2.4 cm LVDs2.8 (2.5-4.0cm) PWs1.9 cm Normal left ventricular chamber size, systolic function and wall motion as well visualized Left ventricular ejection fraction estimated to be 60-65%. boredrline left ventricular hypertrophy by 2-D. No evidence of pericardial effusion. Mild left atrial enlargements . Right cardiac chamber sizes are within normal limits. Focal aortic valve sclerosis with adequate cusp excursion. Thickened mitral valve leaflets with normal excursion. Mitral annulus and aortic root calcification. Pulmonic valve not well visualized. Normal tricuspid valve structure. IVC at size 2.0 without physiologic collapse. A color flow and spectral Doppler study was performed and revealed: Trace aortic regurgitation. Mild mitral regurgitation. Left ventricular diastolic function can not determind due to arrhythmia . Mild tricuspid regurgitation. Tricuspid systolic velocities suggests peak right ventricular systolic pressure of 33 mmHg. Mild Pulmonic regurgitation present.
[2018-02-05] MEDS: dilTIAZem HCl 60mg tab ORAL SCH (18:37)
[2018-02-05] MEDS: Dyna-Hex 2% Top Sol 2oz TOPIC SCH (20:03)
[2018-02-06] VITALS (15 sets, daily range): BP systolic 105–137; BP diastolic 62–89
[2018-02-06] MEDS: dilTIAZem HCl 60mg tab ORAL SCH ×3 (00:02→11:49)
[2018-02-06] MEDS: Zosyn 3.375gm q8h **Extended infusion IVPB SCH ×4 (02:30→09:38)
[2018-02-06] MEDS: D5NS 1,000 ML IV SCH (04:00)
[2018-02-06] MEDS: Hydrocortisone 100mg Inj IV SCH ×3 (05:33→21:13)
[2018-02-06 05:54] LABS: HEMATOCRIT 24.2 % (42.0-52.0); HEMOGLOBIN 8.1 G/DL (14.2-18.0); MEAN CORPUSCULAR VOLUME 92 FL (80-99); PLATELET COUNT 118 K/UL (150-450); RED BLOOD COUNT 2.61 M/UL (4.70-6.10); RED CELL DISTRIBUTION WIDTH 12.9 % (11.6-14.8); WHITE BLOOD COUNT 13.6 K/UL (4.8-10.8)
[2018-02-06 06:14] LABS: ALANINE AMINOTRANSFERASE 262 U/L (12-78); ALBUMIN 2.1 G/DL (3.4-5.0); ALBUMIN/GLOBULIN RATIO 0.6 (1.0-2.7); ALKALINE PHOSPHATASE 50 U/L (46-116); ANION GAP 5 mmol/L (5-15); ASPARTATE AMINO TRANSFERASE 563 U/L (15-37); BILIRUBIN,TOTAL 0.4 MG/DL (0.2-1.0); BLOOD UREA NITROGEN 29 mg/dL (7-18); CALCIUM 8.4 MG/DL (8.5-10.1); CARBON DIOXIDE 29 MMOL/L (21-32); CHLORIDE 114 MMOL/L (98-107); CREATININE 1.1 MG/DL (0.55-1.30); PHOSPHORUS 2.2 MG/DL (2.5-4.9); SODIUM 147 MMOL/L (136-145)
[2018-02-06 06:26] LABS: CREATINE KINASE 7627 U/L (26-308); GAMMA GLUTAMYL TRANSPEPTIDASE 128 U/L (5-85)
[2018-02-06] MEDS: Midodrine 10mg tab ORAL SCH ×3 (08:44→17:45)
[2018-02-06] MEDS: Nitroglycerin Patch 0.2mg/hr TDERMAL SCH (08:44)
[2018-02-06] MEDS: Aspirin EC 81mg tab ORAL SCH (08:44)
[2018-02-06] MEDS: Heparin 5000 units/ml inj SUBQ SCH ×2 (08:50→21:18)
[2018-02-06] MEDS: Dakin's 0.125% Soln (Quarter Strength) 16oz TOPIC SCH (08:51)
[2018-02-06] MEDS ORDERED: D5 1/4NS 1000ml 1,000 ML IV SCH (09:00)
--- NOTE | 2018-02-06 09:56 | Pulmonolgy Critical Care Note ---
Critical Care - Asmt/Plan Problems: (1) Acute kidney failure (2) Metabolic encephalopathy (3) Hyperkalemia (4) NSTEMI (non-ST elevated myocardial infarction) (5) Rhabdomyolysis (6) Bipolar 1 disorder (7) CVA (cerebral vascular accident) (8) HTN (hypertension) (9) CAD (coronary artery disease) Respiratory: monitor respiratory rate, adjust FIO2 Cardiac: continue to monitor HR/BP Renal: F/U I&O, keep IV fluid Infectious Disease: check cultures Gastrointestinal: continue feedings/current rate Endocrine: monitor blood sugar, continue sliding scale insulin Hematologic: monitor H/H, transfuse if hgb<8.5 Neurologic: PRN Ativan, PRN Morphine Affect: PRN ativan Disposition: keep in ICU Notes Reviewed: cardio, renal Discussed with: nurses, consultants, 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 - Objective Last 24 Hour Vital Signs Date Time Temp Pulse Resp B/P (MAP) Pulse Ox O2 Delivery O2 Flow Rate FiO2 02/06/18 08:44 105/73 02/06/18 08:03 97.5 138 16 105/73 (84) 100 97.5 02/06/18 07:00 136 16 121/75 (90) 100 02/06/18 06:33 Venturi Mask 14.0 55 02/06/18 06:33 98 18 Venturi Mask 14.0 55 02/06/18 06:33 100 Venturi Mask 14.0 55 02/06/18 06:00 136 16 118/68 (85) 100 02/06/18 05:34 138 122/83 02/06/18 05:00 136 16 115/84 (94) 100 02/06/18 04:00 Venturi Mask 15.0 02/06/18 04:00 137 02/06/18 04:00 136 16 125/81 (96) 100 02/06/18 03:00 136 16 114/85 (95) 100 02/06/18 02:00 105 16 115/76 (89) 100 02/06/18 01:00 71 16 114/62 (79) 100 02/06/18 00:40 133/73 02/06/18 00:02 130 124/85 02/06/18 00:00 Venturi Mask 15.0 02/06/18 00:00 97.4 132 14 119/79 (92) 100 97.4 02/06/18 00:00 114 02/05/18 23:00 131 15 109/80 (90) 100 02/05/18 22:00 134 16 104/72 (83) 100 02/05/18 21:00 135 16 99/75 (83) 100 02/05/18 20:00 97.8 109 16 130/80 (97) 100 97.8 02/05/18 20:00 109 02/05/18 20:00 Venturi Mask 15.0 02/05/18 19:03 Venturi Mask 14.0 55 02/05/18 19:02 103 18 Venturi Mask 14.0 55 02/05/18 19:02 100 Venturi Mask 14.0 55 02/05/18 19:00 132 16 114/81 (92) 100 02/05/18 18:37 132 127/95 02/05/18 18:00 132 13 141/94 (110) 100 02/05/18 17:00 131 18 127/73 (91) 99 02/05/18 16:00 Venturi Mask 15.0 02/05/18 16:00 132 02/05/18 16:00 132 13 116/83 (94) 100 02/05/18 15:00 136 14 104/76 (85) 100 02/05/18 14:00 97.4 134 12 101/69 (80) 99 97.4 02/05/18 13:30 133 14 119/75 (90) 93 02/05/18 13:15 133 14 106/71 (83) 100 02/05/18 13:00 135 14 116/68 (84) 97 02/05/18 13:00 129/78 02/05/18 12:45 133 21 122/80 (94) 99 02/05/18 12:00 137 18 124/86 (99) 100 02/05/18 12:00 124/86 02/05/18 12:00 Venturi Mask 15.0 02/05/18 11:52 137 18 11:00 128/94 18 11:00 140 18 128/94 (105) 100 18 10:15 121/45 02/05/18 10:00 138 16 107/75 (86) 100 02/05/18 10:00 113/42 Status: awake Condition: critical, grave HEENT: atraumatic Lungs: clear Heart: HR/BP stable, HR/BP unstable Abdomen: soft, non-tender Extremities: no C/C/E, edema Decubiti: stage Micro: Microbiology Date/Time Source Procedure Growth Status 02/03/18 19:20 Leg Right Gram Stain - Final Resulted 02/03/18 19:20 Wound Culture - Preliminary Pseudomonas Aeruginosa Gram Positive Cocci Resulted Accucheck: 156 Critical Care - Subjective ROS Limited/Unobtainable: No Condition: critical EKG Rhythm: Sinus Rhythm FI02: 55 Sputum Amount: None I&O: Intake and Output 02/05/18 02/06/18 19:00 07:00 Intake Total 3066.25 ml 1428.75 ml Output Total 700 ml 770 ml Balance 2366.25 ml 658.75 ml Intake Oral 390 ml 0 ml IV Total 2676.25 ml 1428.75 ml Output Urine Total 700 ml 770 ml CXR: clear Labs: Laboratory Tests Test 02/06/18 05:00 White Blood Count 13.6 K/UL (4.8-10.8) H Red Blood Count 2.61 M/UL (4.70-6.10) L Hemoglobin 8.1 G/DL (14.2-18.0) L Hematocrit 24.2 % (42.0-52.0) L Mean Corpuscular Volume 92 FL (80-99) Mean Corpuscular Hemoglobin 30.9 PG (27.0-31.0) Mean Corpuscular Hemoglobin Concent 33.4 G/DL (32.0-36.0) Red Cell Distribution Width 12.9 % (11.6-14.8) Platelet Count 118 K/UL (150-450) L Mean Platelet Volume 6.8 FL (6.5-10.1) Neutrophils (%) (Auto) % (45.0-75.0) Lymphocytes (%) (Auto) % (20.0-45.0) Monocytes (%) (Auto) % (1.0-10.0) Eosinophils (%) (Auto) % (0.0-3.0) Basophils (%) (Auto) % (0.0-2.0) Differential Total Cells Counted 100 Neutrophils % (Manual) 90 % (45-75) H Lymphocytes % (Manual) 5 % (20-45) L Monocytes % (Manual) 5 % (1-10) Eosinophils % (Manual) 0 % (0-3) Basophils % (Manual) 0 % (0-2) Band Neutrophils 0 % (0-8) Platelet Estimate Decreased L Platelet Morphology Normal Hypochromasia 1+ Sodium Level 147 MMOL/L (136-145) H Potassium Level 4.0 MMOL/L (3.5-5.1) Chloride Level 114 MMOL/L (98-107) H Carbon Dioxide Level 29 MMOL/L (21-32) Anion Gap 5 mmol/L (5-15) Blood Urea Nitrogen 29 mg/dL (7-18) H Creatinine 1.1 MG/DL (0.55-1.30) Estimat Glomerular Filtration Rate > 60 mL/min (>60) Glucose Level 153 MG/DL (74-106) H Uric Acid 4.3 MG/DL (2.6-7.2) Calcium Level 8.4 MG/DL (8.5-10.1) L Phosphorus Level 2.2 MG/DL (2.5-4.9) L Magnesium Level 1.7 MG/DL (1.8-2.4) L Total Bilirubin 0.4 MG/DL (0.2-1.0) Gamma Glutamyl Transpeptidase 128 U/L (5-85) H Aspartate Amino Transf (AST/SGOT) 563 U/L (15-37) H Alanine Aminotransferase (ALT/SGPT) 262 U/L (12-78) H Alkaline Phosphatase 50 U/L (46-116) Total Creatine Kinase 7627 U/L (26-308) H Troponin I 0.369 ng/mL (0.000-0.056) Pro-B-Type Natriuretic Peptide 94651 pg/mL (0-125) H Total Protein 5.5 G/DL (6.4-8.2) L Albumin 2.1 G/DL (3.4-5.0) L Globulin 3.4 g/dL Albumin/Globulin Ratio 0.6 (1.0-2.7) L Random Vancomycin Level 11.0 ug/mL Minerva Montesinos MD Feb 06, 2018 09:56
[2018-02-06] MEDS ORDERED: Sodium Phosphate 30 MM in NS 275 ML IVPB ONE (10:30)
--- NOTE | 2018-02-06 10:30 | Diagnostic Imaging Report ---
Indication: Shortness of breath Technique: One view of the chest Comparison: 02/04/2018 Findings: This region is suboptimal, with bilateral basilar atelectatic changes. No definite infiltrates or effusions. Heart size is normal. Right jugular temporary dialysis catheter, left jugular central venous catheter remain Impression: Hypoventilatory exam as described No definite acute process
--- NOTE | 2018-02-06 11:25 | Cardiology Progress Note ---
Assessment/Plan Status: stable Assessment/Plan Assessment: Right leg ulcer ALBERTO Rhabdomyolysis Hyperkalemia Bradycardia Encephalopathy Elevated troponin Plan: Echocardiogram - preserved systolic function, no wall motion abnormalities Trend troponin - coming down Monitor LFT, Abdominal US showed biliary sludge -> HIDA scan pending Stress test when stable given elevated troponin and hx of CAD Aspirin Statin Taper steroids Leg ultrasound negative for stenosis Continue cardizem for tachycardia Continue abx transfer to tele Subjective Cardiovascular: Reports: no symptoms Respiratory: Reports: no symptoms Gastrointestinal/Abdominal: Reports: no symptoms Genitourinary: Reports: no symptoms Subjective Levophed weaned off Remains tachycardic on cardizem BP stable On facemask Ultrasound leg negative Plan to transfer to tele today Objective Last 24 Hour Vital Signs Date Time Temp Pulse Resp B/P (MAP) Pulse Ox O2 Delivery O2 Flow Rate FiO2 02/06/18 10:00 136 109/83 (92) 100 02/06/18 09:00 137 19 111/77 (88) 100 02/06/18 08:44 105/73 02/06/18 08:03 97.5 138 16 105/73 (84) 100 97.5 02/06/18 08:00 138 02/06/18 08:00 Venturi Mask 15.0 02/06/18 07:00 136 16 121/75 (90) 100 02/06/18 06:33 Venturi Mask 14.0 55 02/06/18 06:33 98 18 Venturi Mask 14.0 55 02/06/18 06:33 100 Venturi Mask 14.0 55 02/06/18 06:00 136 16 118/68 (85) 100 02/06/18 05:34 138 122/83 02/06/18 05:00 136 16 115/84 (94) 100 02/06/18 04:00 Venturi Mask 15.0 02/06/18 04:00 137 02/06/18 04:00 136 16 125/81 (96) 100 02/06/18 03:00 136 16 114/85 (95) 100 02/06/18 02:00 105 16 115/76 (89) 100 02/06/18 01:00 71 16 114/62 (79) 100 02/06/18 00:40 133/73 02/06/18 00:02 130 124/85 02/06/18 00:00 Venturi Mask 15.0 02/06/18 00:00 97.4 132 14 119/79 (92) 100 97.4 02/06/18 00:00 114 02/05/18 23:00 131 15 109/80 (90) 100 02/05/18 22:00 134 16 104/72 (83) 100 02/05/18 21:00 135 16 99/75 (83) 100 02/05/18 20:00 97.8 109 16 130/80 (97) 100 97.8 02/05/18 20:00 109 02/05/18 20:00 Venturi Mask 15.0 02/05/18 19:03 Venturi Mask 14.0 55 02/05/18 19:02 103 18 Venturi Mask 14.0 55 02/05/18 19:02 100 Venturi Mask 14.0 55 02/05/18 19:00 132 16 114/81 (92) 100 02/05/18 18:37 132 127/95 02/05/18 18:00 132 13 141/94 (110) 100 02/05/18 17:00 131 18 127/73 (91) 99 02/05/18 16:00 Venturi Mask 15.0 02/05/18 16:00 132 02/05/18 16:00 132 13 116/83 (94) 100 02/05/18 15:00 136 14 104/76 (85) 100 02/05/18 14:00 97.4 134 12 101/69 (80) 99 97.4 02/05/18 13:30 133 14 119/75 (90) 93 02/05/18 13:15 133 14 106/71 (83) 100 02/05/18 13:00 135 14 116/68 (84) 97 02/05/18 13:00 129/78 02/05/18 12:45 133 21 122/80 (94) 99 02/05/18 12:00 137 18 124/86 (99) 100 02/05/18 12:00 124/86 02/05/18 12:00 Venturi Mask 15.0 02/05/18 11:52 137 General Appearance: no apparent distress, alert EENT: PERRL/EOMI, normal ENT inspection Neck: non-tender, normal alignment Rhythm: ST Cardiovascular: normal peripheral pulses, normal rate Respiratory/Chest: chest wall non-tender, lungs clear Abdomen: normal bowel sounds, non tender Extremities: normal range of motion, non-tender Neurologic: director of reservations II-XII grossly normal, no motor/sensory deficits Intake and Output 02/05/18 02/06/18 18:59 06:59 Intake Total 3077.50 ml 1553.75 ml Output Total 660 ml 800 ml Balance 2417.50 ml 753.75 ml Intake Oral 390 ml 0 ml IV Total 2687.50 ml 1553.75 ml Output Urine Total 660 ml 800 ml Laboratory Tests Test 02/06/18 05:00 White Blood Count 13.6 K/UL (4.8-10.8) H Red Blood Count 2.61 M/UL (4.70-6.10) L Hemoglobin 8.1 G/DL (14.2-18.0) L Hematocrit 24.2 % (42.0-52.0) L Mean Corpuscular Volume 92 FL (80-99) Mean Corpuscular Hemoglobin 30.9 PG (27.0-31.0) Mean Corpuscular Hemoglobin Concent 33.4 G/DL (32.0-36.0) Red Cell Distribution Width 12.9 % (11.6-14.8) Platelet Count 118 K/UL (150-450) L Mean Platelet Volume 6.8 FL (6.5-10.1) Neutrophils (%) (Auto) % (45.0-75.0) Lymphocytes (%) (Auto) % (20.0-45.0) Monocytes (%) (Auto) % (1.0-10.0) Eosinophils (%) (Auto) % (0.0-3.0) Basophils (%) (Auto) % (0.0-2.0) Differential Total Cells Counted 100 Neutrophils % (Manual) 90 % (45-75) H Lymphocytes % (Manual) 5 % (20-45) L Monocytes % (Manual) 5 % (1-10) Eosinophils % (Manual) 0 % (0-3) Basophils % (Manual) 0 % (0-2) Band Neutrophils 0 % (0-8) Platelet Estimate Decreased L Platelet Morphology Normal Hypochromasia 1+ Sodium Level 147 MMOL/L (136-145) H Potassium Level 4.0 MMOL/L (3.5-5.1) Chloride Level 114 MMOL/L (98-107) H Carbon Dioxide Level 29 MMOL/L (21-32) Anion Gap 5 mmol/L (5-15) Blood Urea Nitrogen 29 mg/dL (7-18) H Creatinine 1.1 MG/DL (0.55-1.30) Estimat Glomerular Filtration Rate > 60 mL/min (>60) Glucose Level 153 MG/DL (74-106) H Uric Acid 4.3 MG/DL (2.6-7.2) Calcium Level 8.4 MG/DL (8.5-10.1) L Phosphorus Level 2.2 MG/DL (2.5-4.9) L Magnesium Level 1.7 MG/DL (1.8-2.4) L Total Bilirubin 0.4 MG/DL (0.2-1.0) Gamma Glutamyl Transpeptidase 128 U/L (5-85) H Aspartate Amino Transf (AST/SGOT) 563 U/L (15-37) H Alanine Aminotransferase (ALT/SGPT) 262 U/L (12-78) H Alkaline Phosphatase 50 U/L (46-116) Total Creatine Kinase 7627 U/L (26-308) H Troponin I 0.369 ng/mL (0.000-0.056) Pro-B-Type Natriuretic Peptide 75125 pg/mL (0-125) H Total Protein 5.5 G/DL (6.4-8.2) L Albumin 2.1 G/DL (3.4-5.0) L Globulin 3.4 g/dL Albumin/Globulin Ratio 0.6 (1.0-2.7) L Random Vancomycin Level 11.0 ug/mL Microbiology Date/Time Source Procedure Growth Status 02/03/18 19:20 Leg Right Gram Stain - Final Resulted 02/03/18 19:20 Wound Culture - Preliminary Pseudomonas Aeruginosa Gram Positive Cocci Resulted Vinny Tobin M.D. Feb 06, 2018 11:25
--- NOTE | 2018-02-06 11:35 | Nephrology Progress Note ---
Assessment/Plan Problem List: (1) Acute kidney failure (2) Hyperkalemia (3) Rhabdomyolysis (4) Drug abuse (5) Metabolic encephalopathy (6) Shock liver Assessment Off pressors Acute Renal Failure- Rhabdo Severe HyperKalemia Low BP urinary out let obstruction shock liver Plan Phos Mag and KCL supplements as needed Midodrine and Hydrototisone Vanco dialysed 02/02 IV fluid- albumin bolus start PO St eval discussed with RN Avoid nephrotoxics Subjective ROS Limited/Unobtainable: No Constitutional: Reports: malaise Objective Objective Last 24 Hour Vital Signs Date Time Temp Pulse Resp B/P (MAP) Pulse Ox O2 Delivery O2 Flow Rate FiO2 02/06/18 11:00 139 16 118/89 (99) 97 02/06/18 10:00 136 109/83 (92) 100 02/06/18 09:00 137 19 111/77 (88) 100 02/06/18 08:44 105/73 02/06/18 08:03 97.5 138 16 105/73 (84) 100 97.5 02/06/18 08:00 138 02/06/18 08:00 Venturi Mask 15.0 02/06/18 07:00 136 16 121/75 (90) 100 02/06/18 06:33 Venturi Mask 14.0 55 02/06/18 06:33 98 18 Venturi Mask 14.0 55 02/06/18 06:33 100 Venturi Mask 14.0 55 02/06/18 06:00 136 16 118/68 (85) 100 02/06/18 05:34 138 122/83 02/06/18 05:00 136 16 115/84 (94) 100 02/06/18 04:00 Venturi Mask 15.0 02/06/18 04:00 137 02/06/18 04:00 136 16 125/81 (96) 100 02/06/18 03:00 136 16 114/85 (95) 100 02/06/18 02:00 105 16 115/76 (89) 100 02/06/18 01:00 71 16 114/62 (79) 100 02/06/18 00:40 133/73 02/06/18 00:02 130 124/85 02/06/18 00:00 Venturi Mask 15.0 02/06/18 00:00 97.4 132 14 119/79 (92) 100 97.4 02/06/18 00:00 114 02/05/18 23:00 131 15 109/80 (90) 100 02/05/18 22:00 134 16 104/72 (83) 100 02/05/18 21:00 135 16 99/75 (83) 100 02/05/18 20:00 97.8 109 16 130/80 (97) 100 97.8 02/05/18 20:00 109 02/05/18 20:00 Venturi Mask 15.0 02/05/18 19:03 Venturi Mask 14.0 55 02/05/18 19:02 103 18 Venturi Mask 14.0 55 02/05/18 19:02 100 Venturi Mask 14.0 55 02/05/18 19:00 132 16 114/81 (92) 100 02/05/18 18:37 132 127/95 02/05/18 18:00 132 13 141/94 (110) 100 02/05/18 17:00 131 18 127/73 (91) 99 02/05/18 16:00 Venturi Mask 15.0 02/05/18 16:00 132 02/05/18 16:00 132 13 116/83 (94) 100 02/05/18 15:00 136 14 104/76 (85) 100 02/05/18 14:00 97.4 134 12 101/69 (80) 99 97.4 02/05/18 13:30 133 14 119/75 (90) 93 02/05/18 13:15 133 14 106/71 (83) 100 02/05/18 13:00 135 14 116/68 (84) 97 02/05/18 13:00 129/78 02/05/18 12:45 133 21 122/80 (94) 99 02/05/18 12:00 137 18 124/86 (99) 100 02/05/18 12:00 124/86 02/05/18 12:00 Venturi Mask 15.0 02/05/18 11:52 137 Intake and Output 02/05/18 02/06/18 18:59 06:59 Intake Total 3077.50 ml 1553.75 ml Output Total 660 ml 800 ml Balance 2417.50 ml 753.75 ml Intake Oral 390 ml 0 ml IV Total 2687.50 ml 1553.75 ml Output Urine Total 660 ml 800 ml Laboratory Tests 02/06/18 05:00: White Blood Count 13.6H, Red Blood Count 2.61L, Hemoglobin 8.1L, Hematocrit 24.2L, Mean Corpuscular Volume 92, Mean Corpuscular Hemoglobin 30.9, Mean Corpuscular Hemoglobin Concent 33.4, Red Cell Distribution Width 12.9, Platelet Count 118L, Mean Platelet Volume 6.8, Neutrophils (%) (Auto) , Lymphocytes (%) ( Auto) , Monocytes (%) (Auto) , Eosinophils (%) (Auto) , Basophils (%) (Auto) , Differential Total Cells Counted 100, Neutrophils % (Manual) 90H, Lymphocytes % (Manual) 5L, Monocytes % (Manual) 5, Eosinophils % (Manual) 0, Basophils % ( Manual) 0, Band Neutrophils 0, Platelet Estimate DecreasedL, Platelet Morphology Normal, Hypochromasia 1+, Sodium Level 147H, Potassium Level 4.0, Chloride Level 114H, Carbon Dioxide Level 29, Anion Gap 5, Blood Urea Nitrogen 29H, Creatinine 1.1, Estimat Glomerular Filtration Rate > 60, Glucose Level 153H , Uric Acid 4.3, Calcium Level 8.4L, Phosphorus Level 2.2L, Magnesium Level 1.7L , Total Bilirubin 0.4, Gamma Glutamyl Transpeptidase 128H, Aspartate Amino Transf (AST/SGOT) 563H, Alanine Aminotransferase (ALT/SGPT) 262H, Alkaline Phosphatase 50, Total Creatine Kinase 7627H, Troponin I 0.369H, Pro-B-Type Natriuretic Peptide 84276Y, Total Protein 5.5L, Albumin 2.1L, Globulin 3.4, Albumin/Globulin Ratio 0.6L, Random Vancomycin Level 11.0 Height (Feet): 6 Height (Inches): 3.00 Weight (Pounds): 180 General Appearance: no apparent distress Cardiovascular: tachycardia Respiratory/Chest: decreased breath sounds Objective no other change Ruy Colvin MD Feb 06, 2018 11:35
[2018-02-06] MEDS: Norco 5mg/325mg tab ORAL PRN (11:51)
--- NOTE | 2018-02-06 12:15 | Infectious Diseases Prog Note ---
Assessment/Plan Assessment/Plan Abx: None Assessment: Shock, SP Leukocytosis- suspect reactive- r/o acalculous cholecystitis -Abd US: Gallbladder sludge, but no stones. Apparent mild gallbladder wall thickening, probably an artifact of under distention, but if real could indicate acute acalculous cholecystitis, among other possibilities. Consider hepatobiliary nuclear scan if there is high clinical suspicion. Mildly dilated common bile duct. Downstream obstruction not excludable. Consider MRCP for further evaluation, if clinically indicated. -Afebrile -u/a neg -CXR: no acute disease -Bcx NTD R leg ulcer-, purulent discharge- possibly superinfection Acute renal failure- suspect 2ry to urinary outlet obstruction - ?toxic- started on HD -UDS + opiates -Salicylic acid neg Rhabdomyolysis Elevated LFTs (AST>ALT); shock liver; imporivng -Hep C +, hep B immune (Bs ab+, Bc ab +), Hep A not immune -HIV ab neg Hyperkalemia w/ EKG changes, SP Hypotension/bradycardia upon admission -2ry to above Metabolic encephalopathy; improving NSTEMI Plan: -Continue empiric Zosyn #4 pending HIDA scan -Noticed IV Vancomycin #3; contiue for 5-7 days for possible ulcer superinfection -f/u HIDA scan -Hep C VL -Renal, cards f/u -f/u cx -Monitor CBC/CMP, temperatures -ICU support -Aspiration precautions -wound care as per hosp protocol -Will need Hep A immunization as outpatient Thank you for this consultation. Will continue to follow along with you. Discussed with RN. Subjective Allergies: Coded Allergies: MILK (Verified Allergy, Unknown, 02/02/18) Uncoded Allergies: MILK PRODUCTS (Allergy, Unknown, 02/02/18) Subjective afebrile leukocytosis improving off levophed now Bcx NTD awaiting HIDA scan Objective Vital Signs Last 24 Hour Vital Signs Date Time Temp Pulse Resp B/P (MAP) Pulse Ox O2 Delivery O2 Flow Rate FiO2 02/06/18 11:49 139 118/89 02/06/18 11:00 139 16 118/89 (99) 97 02/06/18 10:00 136 109/83 (92) 100 02/06/18 09:00 137 19 111/77 (88) 100 02/06/18 08:44 105/73 8/20/18 08:03 97.5 138 16 105/73 (84) 100 97.5 02/06/18 08:00 138 8 08:00 Venturi Mask 15.0 02/06/18 07:00 136 16 121/75 (90) 100 02/06/18 06:33 Venturi Mask 14.0 55 02/06/18 06:33 98 18 Venturi Mask 14.0 55 02/06/18 06:33 100 Venturi Mask 14.0 55 02/06/18 06:00 136 16 118/68 (85) 100 02/06/18 05:34 138 122/83 8 05:00 136 16 115/84 (94) 100 02/06/18 04:00 Venturi Mask 15.0 02/06/18 04:00 137 02/06/18 04:00 136 16 125/81 (96) 100 02/06/18 03:00 136 16 114/85 (95) 100 02/06/18 02:00 105 16 115/76 (89) 100 02/06/18 01:00 71 16 114/62 (79) 100 02/06/18 00:40 133/73 02/06/18 00:02 130 124/85 02/06/18 00:00 Venturi Mask 15.0 02/06/18 00:00 97.4 132 14 119/79 (92) 100 97.4 02/06/18 00:00 114 02/05/18 23:00 131 15 109/80 (90) 100 18 22:00 134 16 104/72 (83) 100 02/05/18 21:00 135 16 99/75 (83) 100 18 20:00 97.8 109 16 130/80 (97) 100 97.8 18 20:00 109 18 20:00 Venturi Mask 15.0 8 19:03 Venturi Mask 14.0 55 02/05/18 19:02 103 18 Venturi Mask 14.0 55 02/05/18 19:02 100 Venturi Mask 14.0 55 18 19:00 132 16 114/81 (92) 100 02/05/18 18:37 132 127/95 02/05/18 18:00 132 13 141/94 (110) 100 02/05/18 17:00 131 18 127/73 (91) 99 02/05/18 16:00 Venturi Mask 15.0 02/05/18 16:00 132 02/05/18 16:00 132 13 116/83 (94) 100 02/05/18 15:00 136 14 104/76 (85) 100 02/05/18 14:00 97.4 134 12 101/69 (80) 99 97.4 02/05/18 13:30 133 14 119/75 (90) 93 02/05/18 13:15 133 14 106/71 (83) 100 02/05/18 13:00 135 14 116/68 (84) 97 02/05/18 13:00 129/78 02/05/18 12:45 133 21 122/80 (94) 99 Height (Feet): 6 Height (Inches): 3.00 Weight (Pounds): 180 Objective General Appearance: thin, Chronically Ill Eyes: bilateral eye PERRL ENT: dry mucus membranes Neck: normal inspection, supple, thyroid normal Respiratory: normal inspection, lungs clear, normal breath sounds, no accessory muscle use Cardiovascular #1: normal inspection, normal peripheral pulses, regular rate, rhythm Gastrointestinal: normal bowel sounds, non tender, soft Musculoskeletal: other - chronic wound right lower leg; good rom hips, nontender Neurologic: other - lethargic, moves to painful stimuli and spont, occasional word Psychiatric: other - cannot evaluate Microbiology Date/Time Source Procedure Growth Status 02/03/18 19:20 Leg Right Gram Stain - Final Resulted 02/03/18 19:20 Wound Culture - Preliminary Pseudomonas Aeruginosa Gram Positive Cocci Resulted Laboratory Tests Test 02/06/18 05:00 White Blood Count 13.6 K/UL (4.8-10.8) H Red Blood Count 2.61 M/UL (4.70-6.10) L Hemoglobin 8.1 G/DL (14.2-18.0) L Hematocrit 24.2 % (42.0-52.0) L Mean Corpuscular Volume 92 FL (80-99) Mean Corpuscular Hemoglobin 30.9 PG (27.0-31.0) Mean Corpuscular Hemoglobin Concent 33.4 G/DL (32.0-36.0) Red Cell Distribution Width 12.9 % (11.6-14.8) Platelet Count 118 K/UL (150-450) L Mean Platelet Volume 6.8 FL (6.5-10.1) Neutrophils (%) (Auto) % (45.0-75.0) Lymphocytes (%) (Auto) % (20.0-45.0) Monocytes (%) (Auto) % (1.0-10.0) Eosinophils (%) (Auto) % (0.0-3.0) Basophils (%) (Auto) % (0.0-2.0) Differential Total Cells Counted 100 Neutrophils % (Manual) 90 % (45-75) H Lymphocytes % (Manual) 5 % (20-45) L Monocytes % (Manual) 5 % (1-10) Eosinophils % (Manual) 0 % (0-3) Basophils % (Manual) 0 % (0-2) Band Neutrophils 0 % (0-8) Platelet Estimate Decreased L Platelet Morphology Normal Hypochromasia 1+ Sodium Level 147 MMOL/L (136-145) H Potassium Level 4.0 MMOL/L (3.5-5.1) Chloride Level 114 MMOL/L (98-107) H Carbon Dioxide Level 29 MMOL/L (21-32) Anion Gap 5 mmol/L (5-15) Blood Urea Nitrogen 29 mg/dL (7-18) H Creatinine 1.1 MG/DL (0.55-1.30) Estimat Glomerular Filtration Rate > 60 mL/min (>60) Glucose Level 153 MG/DL (74-106) H Uric Acid 4.3 MG/DL (2.6-7.2) Calcium Level 8.4 MG/DL (8.5-10.1) L Phosphorus Level 2.2 MG/DL (2.5-4.9) L Magnesium Level 1.7 MG/DL (1.8-2.4) L Total Bilirubin 0.4 MG/DL (0.2-1.0) Gamma Glutamyl Transpeptidase 128 U/L (5-85) H Aspartate Amino Transf (AST/SGOT) 563 U/L (15-37) H Alanine Aminotransferase (ALT/SGPT) 262 U/L (12-78) H Alkaline Phosphatase 50 U/L (46-116) Total Creatine Kinase 7627 U/L (26-308) H Troponin I 0.369 ng/mL (0.000-0.056) Pro-B-Type Natriuretic Peptide 28884 pg/mL (0-125) H Total Protein 5.5 G/DL (6.4-8.2) L Albumin 2.1 G/DL (3.4-5.0) L Globulin 3.4 g/dL Albumin/Globulin Ratio 0.6 (1.0-2.7) L Random Vancomycin Level 11.0 ug/mL Current Medications Medications (Trade) Dose Ordered Sig/Erlin Route PRN Reason Start Time Stop Time Status Last Admin Dose Admin Acetaminophen (Tylenol) 650 mg Q4H PRN ORAL Mild Pain/Temp > 100.5 02/02/18 20:30 03/04/18 12:29 02/04/18 17:10 Acetaminophen/ Hydrocodone Bitart ([place] 5/325) 1 tab Q4H PRN ORAL Moderate Pain (Pain Scale 4-6) 02/03/18 13:24 02/10/18 13:23 02/06/18 11:51 Albuterol/ Ipratropium (Albuterol/ Ipratropium) 3 ml Q4H PRN HHN Shortness of Breath 02/05/18 08:30 02/10/18 08:29 Aspirin (Ecotrin) 81 mg DAILY ORAL 02/04/18 09:00 03/06/18 08:59 02/06/18 08:44 Chlorhexidine Gluconate (Yari-Hex 2%) 1 applic DAILY@2000 TOPIC 02/02/18 20:00 03/04/18 19:59 02/05/18 20:03 Dextrose (Dextrose 50%) 25 ml PRN IV Hypoglycemia 02/02/18 13:00 03/04/18 12:59 Dextrose (Dextrose 50%) 50 ml PRN IV hypoglycemia 02/02/18 13:00 03/04/18 12:59 Dextrose/Sodium Chloride 1,000 ml @ 75 mls/hr [id number] IV 02/06/18 09:00 03/08/18 08:59 02/06/18 09:38 Diltiazem HCl (Cardizem) 60 mg EVERY 6 HOURS ORAL 02/05/18 18:00 03/07/18 17:59 02/06/18 11:49 Heparin Sodium (Porcine) (Heparin 5000 units/ml) 5,000 units EVERY 12 HOURS SUBQ 02/02/18 21:00 03/04/18 20:59 02/06/18 08:50 Hydrocortisone (Solu-CORTEF) 100 mg EVERY 8 HOURS IV 02/04/18 14:00 03/06/18 13:59 02/06/18 05:33 Magnesium Sulfate 100 ml @ 100 mls/hr Q1H IVPB 02/06/18 09:30 02/06/18 13:29 02/06/18 11:49 Midodrine (Pro-Amatine) 10 mg THREE TIMES A DAY ORAL 02/05/18 13:00 03/06/18 12:59 02/06/18 08:44 Nitroglycerin (Ntg) 1 patch Q24H TDERMAL 02/02/18 07:45 03/04/18 07:44 02/06/18 08:44 Norepinephrine Bitartrate 4 mg/ Dextrose 250 ml @ 0 mls/hr Q24H IV 02/03/18 00:40 03/05/18 00:39 02/04/18 15:14 Ondansetron HCl (Zofran) 4 mg Q6H PRN IVP Nausea & Vomiting 02/02/18 12:30 03/04/18 12:29 Pantoprazole (Protonix) 40 mg EVERY 12 HOURS ORAL 02/05/18 21:00 03/07/18 20:59 02/06/18 08:44 Piperacillin Sod/ Tazobactam Sod 3.375 gm/Sodium Chloride 110 ml @ 27.5 mls/hr Q8HR@0200,1000,1800 IVPB 02/05/18 10:00 02/12/18 09:59 02/06/18 09:38 Polyethylene Glycol (Miralax) 17 gm DAILYPRN PRN ORAL Constipation 02/02/18 12:30 03/04/18 12:29 Quetiapine Fumarate (SEROquel) 25 mg Q4H PRN ORAL Anxiety 02/03/18 09:45 03/05/18 09:44 Quetiapine Fumarate (SEROquel) 100 mg QHS ORAL 02/03/18 21:00 03/05/18 20:59 02/05/18 20:32 Sodium Hypochlorite (Dakin's Quarter Strength) 1 applic DAILY TOPIC 02/05/18 09:00 03/07/18 08:59 8/20/18 08:51 Sodium Phosphate 30 mm/Sodium Chloride 285 ml @ 47.5 mls/hr ONCE ONCE IVPB 02/06/18 10:30 02/06/18 16:29 02/06/18 10:57 Temazepam (Restoril) 15 mg HSPRN PRN ORAL Insomnia 02/02/18 12:30 02/09/18 12:29 02/04/18 21:46 Alma Elkins M.D. Feb 06, 2018 12:15
[2018-02-06] MEDS: D5 1/4NS 1000ml 1,000 ML IV SCH (12:30)
[2018-02-06] MEDS ORDERED: Albuterol/Ipratropium 3ml neb HHN PRN (12:30)
[2018-02-06] MEDS ORDERED: Miralax 17gm pkt ORAL PRN (12:30)
[2018-02-06] MEDS ORDERED: Vancomycin 1.5 GM/D5W 250ML IVPB ONE (13:30)
--- NOTE | 2018-02-06 14:22 | General Progress Note ---
Assessment/Plan Status: stable Assessment/Plan encephalopathy due to gmc increase seroquel Subjective Date patient seen: Feb 06, 2018 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: Reports: anxiety Allergies: Coded Allergies: MILK (Verified Allergy, Unknown, 02/02/18) Uncoded Allergies: MILK PRODUCTS (Allergy, Unknown, 02/02/18) Objective Last 24 Hour Vital Signs Date Time Temp Pulse Resp B/P (MAP) Pulse Ox O2 Delivery O2 Flow Rate FiO2 02/06/18 12:00 98.5 136 16 123/83 (96) 97 98.5 02/06/18 12:00 Venturi Mask 15.0 02/06/18 11:49 139 118/89 02/06/18 11:00 139 16 118/89 (99) 97 02/06/18 10:00 136 109/83 (92) 100 02/06/18 09:00 137 19 111/77 (88) 100 02/06/18 08:44 105/73 02/06/18 08:03 97.5 138 16 105/73 (84) 100 97.5 02/06/18 08:00 138 02/06/18 08:00 Venturi Mask 15.0 02/06/18 07:00 136 16 121/75 (90) 100 02/06/18 06:33 Venturi Mask 14.0 55 02/06/18 06:33 98 18 Venturi Mask 14.0 55 02/06/18 06:33 100 Venturi Mask 14.0 55 02/06/18 06:00 136 16 118/68 (85) 100 02/06/18 05:34 138 122/83 02/06/18 05:00 136 16 115/84 (94) 100 02/06/18 04:00 Venturi Mask 15.0 02/06/18 04:00 137 02/06/18 04:00 136 16 125/81 (96) 100 02/06/18 03:00 136 16 114/85 (95) 100 02/06/18 02:00 105 16 115/76 (89) 100 02/06/18 01:00 71 16 114/62 (79) 100 02/06/18 00:40 133/73 02/06/18 00:02 130 124/85 02/06/18 00:00 Venturi Mask 15.0 02/06/18 00:00 97.4 132 14 119/79 (92) 100 97.4 02/06/18 00:00 114 02/05/18 23:00 131 15 109/80 (90) 100 02/05/18 22:00 134 16 104/72 (83) 100 02/05/18 21:00 135 16 99/75 (83) 100 02/05/18 20:00 97.8 109 16 130/80 (97) 100 97.8 02/05/18 20:00 109 02/05/18 20:00 Venturi Mask 15.0 02/05/18 19:03 Venturi Mask 14.0 55 02/05/18 19:02 103 18 Venturi Mask 14.0 55 02/05/18 19:02 100 Venturi Mask 14.0 55 02/05/18 19:00 132 16 114/81 (92) 100 02/05/18 18:37 132 127/95 02/05/18 18:00 132 13 141/94 (110) 100 02/05/18 17:00 131 18 127/73 (91) 99 02/05/18 16:00 Venturi Mask 15.0 02/05/18 16:00 132 02/05/18 16:00 132 13 116/83 (94) 100 02/05/18 15:00 136 14 104/76 (85) 100 Intake and Output 02/05/18 02/06/18 19:00 07:00 Intake Total 3066.25 ml 1428.75 ml Output Total 700 ml 770 ml Balance 2366.25 ml 658.75 ml Intake Oral 390 ml 0 ml IV Total 2676.25 ml 1428.75 ml Output Urine Total 700 ml 770 ml Laboratory Tests 02/06/18 05:00: White Blood Count 13.6H, Red Blood Count 2.61L, Hemoglobin 8.1L, Hematocrit 24.2L, Mean Corpuscular Volume 92, Mean Corpuscular Hemoglobin 30.9, Mean Corpuscular Hemoglobin Concent 33.4, Red Cell Distribution Width 12.9, Platelet Count 118L, Mean Platelet Volume 6.8, Neutrophils (%) (Auto) , Lymphocytes (%) ( Auto) , Monocytes (%) (Auto) , Eosinophils (%) (Auto) , Basophils (%) (Auto) , Differential Total Cells Counted 100, Neutrophils % (Manual) 90H, Lymphocytes % (Manual) 5L, Monocytes % (Manual) 5, Eosinophils % (Manual) 0, Basophils % ( Manual) 0, Band Neutrophils 0, Platelet Estimate DecreasedL, Platelet Morphology Normal, Hypochromasia 1+, Sodium Level 147H, Potassium Level 4.0, Chloride Level 114H, Carbon Dioxide Level 29, Anion Gap 5, Blood Urea Nitrogen 29H, Creatinine 1.1, Estimat Glomerular Filtration Rate > 60, Glucose Level 153H , Uric Acid 4.3, Calcium Level 8.4L, Phosphorus Level 2.2L, Magnesium Level 1.7L , Total Bilirubin 0.4, Gamma Glutamyl Transpeptidase 128H, Aspartate Amino Transf (AST/SGOT) 563H, Alanine Aminotransferase (ALT/SGPT) 262H, Alkaline Phosphatase 50, Total Creatine Kinase 7627H, Troponin I 0.369H, Pro-B-Type Natriuretic Peptide 59823N, Total Protein 5.5L, Albumin 2.1L, Globulin 3.4, Albumin/Globulin Ratio 0.6L, Random Vancomycin Level 11.0 Height (Feet): 6 Height (Inches): 3.00 Weight (Pounds): 180 General Appearance: no apparent distress, alert, confused, agitated Julissa Still MD Feb 06, 2018 14:22
[2018-02-06] MEDS: Vancomycin 750mg/NS 250ml IVPB SCH (14:44)
[2018-02-06] MEDS ORDERED: dilTIAZem HCl 60mg tab ORAL SCH (18:00)
[2018-02-06] MEDS: Piperacillin/Tazobactam 3.375 GM in NS 110 ML IVPB SCH (18:03)
[2018-02-06] MEDS: Dyna-Hex 2% Top Sol 2oz TOPIC SCH (21:12)
[2018-02-07] VITALS: BP 118/78
[2018-02-07] MEDS: dilTIAZem HCl 60mg tab ORAL SCH ×4 (00:14→17:17)
[2018-02-07] MEDS: Norco 5mg/325mg tab ORAL PRN ×4 (00:17→22:43)
[2018-02-07] MEDS: Vancomycin 750mg/NS 250ml IVPB SCH (02:06)
[2018-02-07] MEDS: Piperacillin/Tazobactam 3.375 GM in NS 110 ML IVPB SCH ×3 (02:07→17:18)
[2018-02-07] MEDS: D5 1/4NS 1000ml 1,000 ML IV SCH ×2 (02:45→15:10)
[2018-02-07 04:00] VITALS: BP 122/70
[2018-02-07] MEDS: Hydrocortisone 100mg Inj IV SCH ×3 (06:14→22:39)
[2018-02-07 06:33] LABS: HEMATOCRIT 24.4 % (42.0-52.0); HEMOGLOBIN 7.8 G/DL (14.2-18.0); MEAN CORPUSCULAR VOLUME 92 FL (80-99); PLATELET COUNT 129 K/UL (150-450); RED BLOOD COUNT 2.64 M/UL (4.70-6.10); RED CELL DISTRIBUTION WIDTH 12.8 % (11.6-14.8)
[2018-02-07 07:28] LABS: ALANINE AMINOTRANSFERASE 277 U/L (12-78); ALBUMIN/GLOBULIN RATIO 0.6 (1.0-2.7); ALKALINE PHOSPHATASE 56 U/L (46-116); ANION GAP 7 mmol/L (5-15); ASPARTATE AMINO TRANSFERASE 476 U/L (15-37); BILIRUBIN,TOTAL 0.5 MG/DL (0.2-1.0); BLOOD UREA NITROGEN 29 mg/dL (7-18); CALCIUM 8.1 MG/DL (8.5-10.1); CARBON DIOXIDE 26 MMOL/L (21-32); CHLORIDE 111 MMOL/L (98-107); CREATININE 1.2 MG/DL (0.55-1.30); PHOSPHORUS 2.2 MG/DL (2.5-4.9); SODIUM 144 MMOL/L (136-145)
[2018-02-07 08:00] VITALS: BP 111/79
[2018-02-07] MEDS: Midodrine 10mg tab ORAL SCH ×3 (08:10→17:17)
[2018-02-07] MEDS: Aspirin EC 81mg tab ORAL SCH (08:10)
[2018-02-07] MEDS: Heparin 5000 units/ml inj SUBQ SCH ×2 (08:10→20:24)
[2018-02-07] MEDS: Dakin's 0.125% Soln (Quarter Strength) 16oz TOPIC SCH (08:11)
[2018-02-07] MEDS ORDERED: Morphine Sulfate 2mg/ml Inj(IV/IM USE ONLY) IVP PRN (08:30)
[2018-02-07 08:36] LABS: CREATINE KINASE 5879 U/L (26-308); GAMMA GLUTAMYL TRANSPEPTIDASE 155 U/L (5-85)
[2018-02-07] MEDS ORDERED: Nitroglycerin Patch 0.2mg/hr TDERMAL SCH (09:00)
[2018-02-07] MEDS ORDERED: Metoprolol Tartrate 12.5mg TAB ORAL SCH ×2 (09:15→21:00)
--- NOTE | 2018-02-07 09:16 | Nephrology Progress Note ---
Assessment/Plan Problem List: (1) Acute kidney failure (2) Hyperkalemia (3) Rhabdomyolysis (4) Drug abuse (5) Metabolic encephalopathy (6) Shock liver Assessment Off pressors Acute Renal Failure- Rhabdo Severe HyperKalemia Low BP urinary out let obstruction shock liver Plan Phos Mag and KCL supplements as needed Midodrine and Hydrototisone ( lower dose) add lopressor Vanco dialysed 02/02 IV fluid- albumin bolus start PO St eval discussed with RN Avoid nephrotoxics Subjective ROS Limited/Unobtainable: No Constitutional: Reports: malaise Objective Objective Last 24 Hour Vital Signs Date Time Temp Pulse Resp B/P (MAP) Pulse Ox O2 Delivery O2 Flow Rate FiO2 02/07/18 08:00 97.7 138 20 111/79 (90) 99 97.7 02/07/18 06:14 136 119/67 02/07/18 04:00 97.4 59 20 122/70 (87) 97.4 02/07/18 04:00 102 02/07/18 00:14 145 118/78 02/07/18 00:00 97.5 149 20 118/78 (91) 100 97.5 02/07/18 00:00 147 02/06/18 23:59 99 Venturi Mask 14.0 55 02/06/18 23:59 Venturi Mask 14.0 55 02/06/18 23:58 105 20 Venturi Mask 14.0 55 02/06/18 21:00 Venturi Mask 15.0 02/06/18 20:05 97.4 144 20 111/72 (85) 97 97.4 02/06/18 20:00 143 02/06/18 17:46 128 123/83 02/06/18 16:00 98.0 75 18 137/79 (98) 100 98.0 02/06/18 16:00 85 02/06/18 12:00 98.5 136 16 123/83 (96) 97 98.5 02/06/18 12:00 139 02/06/18 12:00 Venturi Mask 15.0 02/06/18 11:49 139 118/89 02/06/18 11:00 139 16 118/89 (99) 97 02/06/18 10:00 136 109/83 (92) 100 Intake and Output 02/06/18 02/07/18 19:00 07:00 Intake Total 920 ml Output Total 745 ml 600 ml Balance 175 ml -600 ml Intake Oral 920 ml Output Urine Total 745 ml 600 ml # Bowel Movements 1 Laboratory Tests 02/07/18 05:35: White Blood Count 15.0H, Red Blood Count 2.64L, Hemoglobin 7.8L, Hematocrit 24.4L, Mean Corpuscular Volume 92, Mean Corpuscular Hemoglobin 29.7, Mean Corpuscular Hemoglobin Concent 32.2, Red Cell Distribution Width 12.8, Platelet Count 129L, Mean Platelet Volume 5.9L, Neutrophils (%) (Auto) , Lymphocytes (%) (Auto) , Monocytes (%) (Auto) , Eosinophils (%) (Auto) , Basophils (%) (Auto) , Differential Total Cells Counted 100, Neutrophils % (Manual) 81H, Lymphocytes % (Manual) 13L, Monocytes % (Manual) 6, Eosinophils % (Manual) 0, Basophils % ( Manual) 0, Band Neutrophils 0, Platelet Estimate DecreasedL, Platelet Morphology Normal, Hypochromasia 3+, Anisocytosis 1+, Spherocytes 2+, Erythrocyte Sedimentation Rate 42H, Sodium Level 144, Potassium Level 4.0, Chloride Level 111H, Carbon Dioxide Level 26, Anion Gap 7, Blood Urea Nitrogen 29H, Creatinine 1.2, Estimat Glomerular Filtration Rate > 60, Glucose Level 131H , Uric Acid 3.5, Calcium Level 8.1L, Phosphorus Level 2.2L, Magnesium Level 1.9 , Total Bilirubin 0.5, Gamma Glutamyl Transpeptidase 155H, Aspartate Amino Transf (AST/SGOT) 476H, Alanine Aminotransferase (ALT/SGPT) 277H, Alkaline Phosphatase 56, Total Creatine Kinase 5879H, C-Reactive Protein, Quantitative 1.6H, Pro-B-Type Natriuretic Peptide 8485H, Total Protein 5.5L, Albumin 2.0L, Globulin 3.5, Albumin/Globulin Ratio 0.6L, Hepatitis C Antibody [Pending], Hepatitis C RNA (PCR) IUs/ml [Pending], Hepatitis C RNA (PCR) log IUs/ml [ Pending] Height (Feet): 6 Height (Inches): 3.00 Weight (Pounds): 213 General Appearance: no apparent distress Objective no other change Ruy Colvin MD Feb 07, 2018 09:16
--- NOTE | 2018-02-07 11:44 | Diagnostic Imaging Report ---
Indications: Abnormal liver function tests, abnormal abdominal ultrasound Technique: IV administration 5.5 mCi 99 M technetium Choletec. Serial images obtained over the abdomen for 2 hrs Comparison: None Findings: Prompt tracer uptake within the liver. Extrahepatic bile ducts are seen at 10 minutes. Gallbladder visualized at 13 minutes. For the first hour, no tracer excretion into the duodenum is demonstrated. However, 2 hour delayed image demonstrates definite activity within the small bowel Impression: Patent cystic duct; no evidence of acute cholecystitis Common bile duct is patent, but emptying into the duodenum is somewhat slow; small bowel activity not seen until after 60 minutes. Significance of this is uncertain. This can represent a normal anatomic variant, but could also represent partial biliary obstruction
--- NOTE | 2018-02-07 11:59 | Pulmonology Progress Note ---
Assessment/Plan Problems: (1) Metabolic encephalopathy (2) Acute kidney failure (3) NSTEMI (non-ST elevated myocardial infarction) (4) Bipolar 1 disorder (5) Sepsis (6) Shock liver (7) HTN (hypertension) (8) CVA (cerebral vascular accident) (9) CAD (coronary artery disease) Assessment/Plan dc HD access check electrolytes anemia w/u check cultures pt/ot swallow study Subjective ROS Limited/Unobtainable: No Constitutional: Reports: no symptoms HEENT: Repors: no symptoms Respiratory: Reports: no symptoms Allergies: Coded Allergies: MILK (Verified Allergy, Unknown, 02/02/18) Uncoded Allergies: MILK PRODUCTS (Allergy, Unknown, 02/02/18) Objective Last 24 Hour Vital Signs Date Time Temp Pulse Resp B/P (MAP) Pulse Ox O2 Delivery O2 Flow Rate FiO2 02/07/18 10:32 138 111/79 02/07/18 10:32 111/79 02/07/18 09:00 Venturi Mask 15.0 02/07/18 08:00 97.7 138 20 111/79 (90) 99 97.7 02/07/18 06:14 136 119/67 02/07/18 04:00 97.4 59 20 122/70 (87) 97.4 02/07/18 04:00 102 02/07/18 00:14 145 118/78 02/07/18 00:00 97.5 149 20 118/78 (91) 100 97.5 02/07/18 00:00 147 02/06/18 23:59 99 Venturi Mask 14.0 55 02/06/18 23:59 Venturi Mask 14.0 55 02/06/18 23:58 105 20 Venturi Mask 14.0 55 02/06/18 21:00 Venturi Mask 15.0 02/06/18 20:05 97.4 144 20 111/72 (85) 97 97.4 02/06/18 20:00 143 02/06/18 17:46 128 123/83 02/06/18 16:00 98.0 75 18 137/79 (98) 100 98.0 02/06/18 16:00 85 02/06/18 12:00 98.5 136 16 123/83 (96) 97 98.5 02/06/18 12:00 139 02/06/18 12:00 Venturi Mask 15.0 Intake and Output 02/06/18 02/07/18 19:00 07:00 Intake Total 920 ml Output Total 745 ml 600 ml Balance 175 ml -600 ml Intake Oral 920 ml Output Urine Total 745 ml 600 ml # Bowel Movements 1 General Appearance: cachetic HEENT: normocephalic Respiratory/Chest: chest wall non-tender, lungs clear Cardiovascular: normal peripheral pulses, normal rate Abdomen: normal bowel sounds, soft, non tender Genitourinary: normal external genitalia Extremities: no cyanosis Skin: no lesions 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: certified court interpreter II-XII grossly normal, no motor/sensory deficits Lymphatic: no neck adenopathy Laboratory Tests 02/07/18 05:35: White Blood Count 15.0H, Red Blood Count 2.64L, Hemoglobin 7.8L, Hematocrit 24.4L, Mean Corpuscular Volume 92, Mean Corpuscular Hemoglobin 29.7, Mean Corpuscular Hemoglobin Concent 32.2, Red Cell Distribution Width 12.8, Platelet Count 129L, Mean Platelet Volume 5.9L, Neutrophils (%) (Auto) , Lymphocytes (%) (Auto) , Monocytes (%) (Auto) , Eosinophils (%) (Auto) , Basophils (%) (Auto) , Differential Total Cells Counted 100, Neutrophils % (Manual) 81H, Lymphocytes % (Manual) 13L, Monocytes % (Manual) 6, Eosinophils % (Manual) 0, Basophils % ( Manual) 0, Band Neutrophils 0, Platelet Estimate DecreasedL, Platelet Morphology Normal, Hypochromasia 3+, Anisocytosis 1+, Spherocytes 2+, Erythrocyte Sedimentation Rate 42H, Sodium Level 144, Potassium Level 4.0, Chloride Level 111H, Carbon Dioxide Level 26, Anion Gap 7, Blood Urea Nitrogen 29H, Creatinine 1.2, Estimat Glomerular Filtration Rate > 60, Glucose Level 131H , Uric Acid 3.5, Calcium Level 8.1L, Phosphorus Level 2.2L, Magnesium Level 1.9 , Total Bilirubin 0.5, Gamma Glutamyl Transpeptidase 155H, Aspartate Amino Transf (AST/SGOT) 476H, Alanine Aminotransferase (ALT/SGPT) 277H, Alkaline Phosphatase 56, Total Creatine Kinase 5879H, C-Reactive Protein, Quantitative 1.6H, Pro-B-Type Natriuretic Peptide 8485H, Total Protein 5.5L, Albumin 2.0L, Globulin 3.5, Albumin/Globulin Ratio 0.6L, Hepatitis C Antibody [Pending], Hepatitis C RNA (PCR) IUs/ml [Pending], Hepatitis C RNA (PCR) log IUs/ml [ Pending] Current Medications Medications (Trade) Dose Ordered Sig/Erlin Route PRN Reason Start Time Stop Time Status Last Admin Dose Admin Acetaminophen (Tylenol) 650 mg Q4H PRN ORAL Mild Pain/Temp > 100.5 02/06/18 12:30 03/04/18 12:29 Acetaminophen/ Hydrocodone Bitart ([place] 5/325) 1 tab Q4H PRN ORAL Moderate Pain (Pain Scale 4-6) 02/06/18 13:30 02/10/18 13:23 02/07/18 07:49 Al Hydroxide/Mg Hydroxide (Mylanta) 30 ml Q6H PRN ORAL Abdominal cramps 02/06/18 20:40 03/08/18 20:39 02/06/18 21:13 Albuterol/ Ipratropium (Albuterol/ Ipratropium) 3 ml Q4H PRN HHN Shortness of Breath 02/06/18 12:30 02/10/18 08:29 Aspirin (Ecotrin) 81 mg DAILY ORAL 02/07/18 09:00 03/06/18 08:59 02/07/18 08:10 Chlorhexidine Gluconate (Yari-Hex 2%) 1 applic DAILY@2000 TOPIC 02/06/18 20:00 03/04/18 19:59 02/06/18 21:12 Dextrose (Dextrose 50%) 25 ml PRN IV Hypoglycemia 02/06/18 12:30 03/04/18 12:59 Dextrose (Dextrose 50%) 50 ml PRN IV hypoglycemia 02/06/18 12:30 03/04/18 12:59 Dextrose/Sodium Chloride 1,000 ml @ 75 mls/hr [id number] IV 02/06/18 12:30 03/08/18 08:59 02/07/18 02:45 Diltiazem HCl (Cardizem) 90 mg EVERY 6 HOURS ORAL 02/07/18 00:00 03/07/18 17:59 02/07/18 06:14 Heparin Sodium (Porcine) (Heparin 5000 units/ml) 5,000 units EVERY 12 HOURS SUBQ 02/06/18 21:00 03/04/18 20:59 02/06/18 21:18 Hydrocortisone (Solu-CORTEF) 50 mg EVERY 8 HOURS IV 02/07/18 14:00 03/06/18 13:59 Metoprolol Tartrate (Lopressor) 12.5 mg Q12HR ORAL 02/07/18 21:00 03/09/18 20:59 Midodrine (Pro-Amatine) 10 mg THREE TIMES A DAY ORAL 02/06/18 13:00 03/06/18 12:59 02/07/18 08:10 Morphine Sulfate (Morphine Sulfate) 2 mg ONCE PRN IVP PRIOR TO HEPATOBILLIARY SCAN 02/07/18 08:30 02/07/18 20:00 Nitroglycerin (Ntg) 1 patch Q24H TDERMAL 02/07/18 09:00 03/04/18 08:59 02/07/18 10:32 Ondansetron HCl (Zofran) 4 mg Q6H PRN IVP Nausea & Vomiting 02/06/18 12:30 03/04/18 12:29 Pantoprazole (Protonix) 40 mg EVERY 12 HOURS ORAL 02/06/18 21:00 03/07/18 20:59 02/07/18 08:10 Piperacillin Sod/ Tazobactam Sod 3.375 gm/Sodium Chloride 110 ml @ 27.5 mls/hr Q8HR@0200,1000,1800 IVPB 02/06/18 18:00 02/12/18 09:59 02/07/18 02:07 Polyethylene Glycol (Miralax) 17 gm DAILYPRN PRN ORAL Constipation 02/06/18 12:30 03/04/18 12:29 Quetiapine Fumarate (SEROquel) 25 mg Q4H PRN ORAL Anxiety 02/06/18 13:45 03/05/18 09:44 Quetiapine Fumarate (SEROquel) 25 mg TID ORAL 02/06/18 18:00 03/08/18 17:59 02/07/18 08:10 Quetiapine Fumarate (SEROquel) 100 mg QHS ORAL 02/06/18 21:00 03/05/18 20:59 02/06/18 21:13 Sodium Hypochlorite (Dakin's Quarter Strength) 1 applic DAILY TOPIC 02/07/18 09:00 03/07/18 08:59 02/07/18 08:11 Temazepam (Restoril) 15 mg HSPRN PRN ORAL Insomnia 02/06/18 21:00 02/09/18 20:59 Vancomycin HCl (Vanco rx to dose) 1 ea DAILY PRN MISC Per rx protocol 02/06/18 13:00 03/08/18 12:59 Vancomycin/Sodium Chloride 250 ml @ 166.667 mls/hr Q12HR@0130,1330 IVPB 02/06/18 13:30 02/11/18 13:29 02/07/18 02:06 Minerva Montesinos MD Feb 07, 2018 11:59
[2018-02-07 12:00] VITALS: BP 127/92
--- NOTE | 2018-02-07 12:26 | Infectious Diseases Prog Note ---
Assessment/Plan Assessment/Plan Abx: None Assessment: Shock, SP Leukocytosis- elevated, fluctuating -HIDA scan: Patent cystic duct; no evidence of acute cholecystitis. Common bile duct is patent, but emptying into the duodenum is somewhat slow; small bowel activity not seen until after 60 minutes. Significance of this is uncertain. This can represent a normal anatomic variant, but could also represent partial biliary obstruction -Abd US: Gallbladder sludge, but no stones. Apparent mild gallbladder wall thickening, probably an artifact of under distention, but if real could indicate acute acalculous cholecystitis, among other possibilities. Consider hepatobiliary nuclear scan if there is high clinical suspicion. Mildly dilated common bile duct. Downstream obstruction not excludable. Consider MRCP for further evaluation, if clinically indicated. -Afebrile -u/a neg -CXR: no acute disease -Bcx NTD R leg ulcer-, purulent discharge- possibly superinfection -wound cx MDR PsA (prob colonizer), MSSA Acute renal failure- suspect 2ry to urinary outlet obstruction - ?toxic- started on HD; off HD now -UDS + opiates -Salicylic acid neg Rhabdomyolysis; improving Elevated LFTs (AST>ALT); shock liver; imporivng -Hep C +, hep B immune (Bs ab+, Bc ab +), Hep A not immune -HIV ab neg Hyperkalemia w/ EKG changes, SP Hypotension/bradycardia upon admission -2ry to above Metabolic encephalopathy; improving NSTEMI Plan: -Continue empiric Zosyn #5/7-10 for possible superinfected leg ulcer -d/c IV Vancomycin #4 -f/u Hep C VL -Renal, cards f/u -f/u cx -Monitor CBC/CMP, temperatures; Trend WBC -Aspiration precautions -wound care as per hosp protocol -Will need Hep A immunization as outpatient Thank you for this consultation. Will continue to follow along with you. Discussed with RN and family at bedside. Subjective Allergies: Coded Allergies: MILK (Verified Allergy, Unknown, 02/02/18) Uncoded Allergies: MILK PRODUCTS (Allergy, Unknown, 02/02/18) Subjective afebrile leukocytosis fluctuating Bcx NTD Objective Vital Signs Last 24 Hour Vital Signs Date Time Temp Pulse Resp B/P (MAP) Pulse Ox O2 Delivery O2 Flow Rate FiO2 02/07/18 10:32 138 111/79 02/07/18 10:32 111/79 02/07/18 09:00 Venturi Mask 15.0 02/07/18 08:00 97.7 138 20 111/79 (90) 99 97.7 02/07/18 06:14 136 119/67 02/07/18 04:00 97.4 59 20 122/70 (87) 97.4 02/07/18 04:00 102 02/07/18 00:14 145 118/78 02/07/18 00:00 97.5 149 20 118/78 (91) 100 97.5 02/07/18 00:00 147 02/06/18 23:59 99 Venturi Mask 14.0 55 02/06/18 23:59 Venturi Mask 14.0 55 02/06/18 23:58 105 20 Venturi Mask 14.0 55 02/06/18 21:00 Venturi Mask 15.0 02/06/18 20:05 97.4 144 20 111/72 (85) 97 97.4 02/06/18 20:00 143 02/06/18 17:46 128 123/83 02/06/18 16:00 98.0 75 18 137/79 (98) 100 98.0 02/06/18 16:00 85 Height (Feet): 6 Height (Inches): 3.00 Weight (Pounds): 213 Objective General Appearance: thin, Chronically Ill Eyes: bilateral eye PERRL ENT: dry mucus membranes Neck: normal inspection, supple, thyroid normal Respiratory: normal inspection, lungs clear, normal breath sounds, no accessory muscle use Cardiovascular #1: normal inspection, normal peripheral pulses, regular rate, rhythm Gastrointestinal: normal bowel sounds, non tender, soft Musculoskeletal: other - chronic wound right lower leg; good rom hips, nontender Neurologic: other - lethargic, moves to painful stimuli and spont, occasional word Psychiatric: other - cannot evaluate Laboratory Tests Test 02/07/18 05:35 White Blood Count 15.0 K/UL (4.8-10.8) H Red Blood Count 2.64 M/UL (4.70-6.10) L Hemoglobin 7.8 G/DL (14.2-18.0) L Hematocrit 24.4 % (42.0-52.0) L Mean Corpuscular Volume 92 FL (80-99) Mean Corpuscular Hemoglobin 29.7 PG (27.0-31.0) Mean Corpuscular Hemoglobin Concent 32.2 G/DL (32.0-36.0) Red Cell Distribution Width 12.8 % (11.6-14.8) Platelet Count 129 K/UL (150-450) L Mean Platelet Volume 5.9 FL (6.5-10.1) L Neutrophils (%) (Auto) % (45.0-75.0) Lymphocytes (%) (Auto) % (20.0-45.0) Monocytes (%) (Auto) % (1.0-10.0) Eosinophils (%) (Auto) % (0.0-3.0) Basophils (%) (Auto) % (0.0-2.0) Differential Total Cells Counted 100 Neutrophils % (Manual) 81 % (45-75) H Lymphocytes % (Manual) 13 % (20-45) L Monocytes % (Manual) 6 % (1-10) Eosinophils % (Manual) 0 % (0-3) Basophils % (Manual) 0 % (0-2) Band Neutrophils 0 % (0-8) Platelet Estimate Decreased L Platelet Morphology Normal Hypochromasia 3+ Anisocytosis 1+ Spherocytes 2+ Erythrocyte Sedimentation Rate 42 MM/HR (0-20) H Sodium Level 144 MMOL/L (136-145) Potassium Level 4.0 MMOL/L (3.5-5.1) Chloride Level 111 MMOL/L (98-107) H Carbon Dioxide Level 26 MMOL/L (21-32) Anion Gap 7 mmol/L (5-15) Blood Urea Nitrogen 29 mg/dL (7-18) H Creatinine 1.2 MG/DL (0.55-1.30) Estimat Glomerular Filtration Rate > 60 mL/min (>60) Glucose Level 131 MG/DL (74-106) H Uric Acid 3.5 MG/DL (2.6-7.2) Calcium Level 8.1 MG/DL (8.5-10.1) L Phosphorus Level 2.2 MG/DL (2.5-4.9) L Magnesium Level 1.9 MG/DL (1.8-2.4) Total Bilirubin 0.5 MG/DL (0.2-1.0) Gamma Glutamyl Transpeptidase 155 U/L (5-85) H Aspartate Amino Transf (AST/SGOT) 476 U/L (15-37) H Alanine Aminotransferase (ALT/SGPT) 277 U/L (12-78) H Alkaline Phosphatase 56 U/L (46-116) Total Creatine Kinase 5879 U/L (26-308) H C-Reactive Protein, Quantitative 1.6 mg/dL (0.00-0.90) H Pro-B-Type Natriuretic Peptide 8485 pg/mL (0-125) H Total Protein 5.5 G/DL (6.4-8.2) L Albumin 2.0 G/DL (3.4-5.0) L Globulin 3.5 g/dL Albumin/Globulin Ratio 0.6 (1.0-2.7) L Hepatitis C Antibody Pending Hepatitis C RNA (PCR) IUs/ml Pending Hepatitis C RNA (PCR) log IUs/ml Pending Current Medications Medications (Trade) Dose Ordered Sig/Erlin Route PRN Reason Start Time Stop Time Status Last Admin Dose Admin Acetaminophen (Tylenol) 650 mg Q4H PRN ORAL Mild Pain/Temp > 100.5 02/06/18 12:30 03/04/18 12:29 Acetaminophen/ Hydrocodone Bitart ([place] 5/325) 1 tab Q4H PRN ORAL Moderate Pain (Pain Scale 4-6) 02/06/18 13:30 02/10/18 13:23 02/07/18 07:49 Al Hydroxide/Mg Hydroxide (Mylanta) 30 ml Q6H PRN ORAL Abdominal cramps 02/06/18 20:40 03/08/18 20:39 02/06/18 21:13 Albuterol/ Ipratropium (Albuterol/ Ipratropium) 3 ml Q4H PRN HHN Shortness of Breath 02/06/18 12:30 02/10/18 08:29 Aspirin (Ecotrin) 81 mg DAILY ORAL 02/07/18 09:00 03/06/18 08:59 02/07/18 08:10 Chlorhexidine Gluconate (Yari-Hex 2%) 1 applic DAILY@1999 TOPIC 02/06/18 20:00 03/04/18 19:59 02/06/18 21:12 Dextrose (Dextrose 50%) 25 ml PRN IV Hypoglycemia 02/06/18 12:30 03/04/18 12:59 Dextrose (Dextrose 50%) 50 ml PRN IV hypoglycemia 02/06/18 12:30 03/04/18 12:59 Dextrose/Sodium Chloride 1,000 ml @ 75 mls/hr [id number] IV 02/06/18 12:30 03/08/18 08:59 02/07/18 02:45 Diltiazem HCl (Cardizem) 90 mg EVERY 6 HOURS ORAL 02/07/18 00:00 03/07/18 17:59 02/07/18 06:14 Heparin Sodium (Porcine) (Heparin 5000 units/ml) 5,000 units EVERY 12 HOURS SUBQ 02/06/18 21:00 03/04/18 20:59 02/06/18 21:18 Hydrocortisone (Solu-CORTEF) 50 mg EVERY 8 HOURS IV 02/07/18 14:00 03/06/18 13:59 Metoprolol Tartrate (Lopressor) 12.5 mg Q12HR ORAL 02/07/18 21:00 03/09/18 20:59 Midodrine (Pro-Amatine) 10 mg THREE TIMES A DAY ORAL 02/06/18 13:00 03/06/18 12:59 02/07/18 08:10 Morphine Sulfate (Morphine Sulfate) 2 mg ONCE PRN IVP PRIOR TO HEPATOBILLIARY SCAN 02/07/18 08:30 02/07/18 20:00 Nitroglycerin (Ntg) 1 patch Q24H TDERMAL 02/07/18 09:00 03/04/18 08:59 02/07/18 10:32 Ondansetron HCl (Zofran) 4 mg Q6H PRN IVP Nausea & Vomiting 02/06/18 12:30 03/04/18 12:29 Pantoprazole (Protonix) 40 mg EVERY 12 HOURS ORAL 02/06/18 21:00 03/07/18 20:59 02/07/18 08:10 Piperacillin Sod/ Tazobactam Sod 3.375 gm/Sodium Chloride 110 ml @ 27.5 mls/hr Q8HR@0200,1000,1800 IVPB 02/06/18 18:00 02/12/18 09:59 02/07/18 02:07 Polyethylene Glycol (Miralax) 17 gm DAILYPRN PRN ORAL Constipation 02/06/18 12:30 03/04/18 12:29 Quetiapine Fumarate (SEROquel) 25 mg Q4H PRN ORAL Anxiety 02/06/18 13:45 03/05/18 09:44 Quetiapine Fumarate (SEROquel) 25 mg TID ORAL 02/06/18 18:00 03/08/18 17:59 02/07/18 08:10 Quetiapine Fumarate (SEROquel) 100 mg QHS ORAL 02/06/18 21:00 03/05/18 20:59 02/06/18 21:13 Sodium Hypochlorite (Dakin's Quarter Strength) 1 applic DAILY TOPIC 02/07/18 09:00 03/07/18 08:59 02/07/18 08:11 Temazepam (Restoril) 15 mg HSPRN PRN ORAL Insomnia 02/06/18 21:00 02/09/18 20:59 Vancomycin HCl (Vanco rx to dose) 1 ea DAILY PRN MISC Per rx protocol 02/06/18 13:00 03/08/18 12:59 Vancomycin/Sodium Chloride 250 ml @ 166.667 mls/hr Q12HR@0130,1330 IVPB 02/06/18 13:30 02/11/18 13:29 02/07/18 02:06 Alma Elkins M.D. Feb 07, 2018 12:26
--- NOTE | 2018-02-07 13:32 | Cardiology Progress Note ---
Assessment/Plan Status: stable Assessment/Plan Assessment: Right leg ulcer ALBERTO Rhabdomyolysis Hyperkalemia Bradycardia Encephalopathy Elevated troponin Plan: Echocardiogram - preserved systolic function, no wall motion abnormalities Trend troponin - coming down Monitor LFT, Abdominal US showed biliary sludge -> HIDA negative for cholecystitis Stress test when stable given elevated troponin and hx of CAD Aspirin Statin Taper steroids now 50 mg Leg ultrasound negative for stenosis Continue cardizem for tachycardia Added metoprolol 75 BID. will adjust as needed Continue abx Transfuse for anemia PRBC Endoscopy when stable Swallow evaluation - advance diet Physical therapy Subjective Subjective BP stable, remains tachycardic HIDA scan negative for cholecystitis Objective Last 24 Hour Vital Signs Date Time Temp Pulse Resp B/P (MAP) Pulse Ox O2 Delivery O2 Flow Rate FiO2 02/07/18 12:38 136 127/92 02/07/18 10:32 138 111/79 02/07/18 10:32 111/79 02/07/18 09:00 Venturi Mask 15.0 02/07/18 08:00 97.7 138 20 111/79 (90) 99 97.7 02/07/18 06:14 136 119/67 02/07/18 04:00 97.4 59 20 122/70 (87) 97.4 02/07/18 04:00 102 02/07/18 00:14 145 118/78 02/07/18 00:00 97.5 149 20 118/78 (91) 100 97.5 02/07/18 00:00 147 02/06/18 23:59 99 Venturi Mask 14.0 55 02/06/18 23:59 Venturi Mask 14.0 55 02/06/18 23:58 105 20 Venturi Mask 14.0 55 02/06/18 21:00 Venturi Mask 15.0 02/06/18 20:05 97.4 144 20 111/72 (85) 97 97.4 02/06/18 20:00 143 02/06/18 17:46 128 123/83 02/06/18 16:00 98.0 75 18 137/79 (98) 100 98.0 02/06/18 16:00 85 General Appearance: no apparent distress, alert EENT: PERRL/EOMI, TMs normal Neck: non-tender, normal alignment Rhythm: ST Cardiovascular: normal peripheral pulses, regular rhythm, tachycardia Respiratory/Chest: chest wall non-tender, lungs clear Abdomen: normal bowel sounds Extremities: normal range of motion, non-tender 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, oriented x 3 Intake and Output 02/06/18 02/07/18 19:00 07:00 Intake Total 920 ml Output Total 745 ml 600 ml Balance 175 ml -600 ml Intake Oral 920 ml Output Urine Total 745 ml 600 ml # Bowel Movements 1 Laboratory Tests Test 02/07/18 05:35 White Blood Count 15.0 K/UL (4.8-10.8) H Red Blood Count 2.64 M/UL (4.70-6.10) L Hemoglobin 7.8 G/DL (14.2-18.0) L Hematocrit 24.4 % (42.0-52.0) L Mean Corpuscular Volume 92 FL (80-99) Mean Corpuscular Hemoglobin 29.7 PG (27.0-31.0) Mean Corpuscular Hemoglobin Concent 32.2 G/DL (32.0-36.0) Red Cell Distribution Width 12.8 % (11.6-14.8) Platelet Count 129 K/UL (150-450) L Mean Platelet Volume 5.9 FL (6.5-10.1) L Neutrophils (%) (Auto) % (45.0-75.0) Lymphocytes (%) (Auto) % (20.0-45.0) Monocytes (%) (Auto) % (1.0-10.0) Eosinophils (%) (Auto) % (0.0-3.0) Basophils (%) (Auto) % (0.0-2.0) Differential Total Cells Counted 100 Neutrophils % (Manual) 81 % (45-75) H Lymphocytes % (Manual) 13 % (20-45) L Monocytes % (Manual) 6 % (1-10) Eosinophils % (Manual) 0 % (0-3) Basophils % (Manual) 0 % (0-2) Band Neutrophils 0 % (0-8) Platelet Estimate Decreased L Platelet Morphology Normal Hypochromasia 3+ Anisocytosis 1+ Spherocytes 2+ Erythrocyte Sedimentation Rate 42 MM/HR (0-20) H Sodium Level 144 MMOL/L (136-145) Potassium Level 4.0 MMOL/L (3.5-5.1) Chloride Level 111 MMOL/L (98-107) H Carbon Dioxide Level 26 MMOL/L (21-32) Anion Gap 7 mmol/L (5-15) Blood Urea Nitrogen 29 mg/dL (7-18) H Creatinine 1.2 MG/DL (0.55-1.30) Estimat Glomerular Filtration Rate > 60 mL/min (>60) Glucose Level 131 MG/DL (74-106) H Uric Acid 3.5 MG/DL (2.6-7.2) Calcium Level 8.1 MG/DL (8.5-10.1) L Phosphorus Level 2.2 MG/DL (2.5-4.9) L Magnesium Level 1.9 MG/DL (1.8-2.4) Total Bilirubin 0.5 MG/DL (0.2-1.0) Gamma Glutamyl Transpeptidase 155 U/L (5-85) H Aspartate Amino Transf (AST/SGOT) 476 U/L (15-37) H Alanine Aminotransferase (ALT/SGPT) 277 U/L (12-78) H Alkaline Phosphatase 56 U/L (46-116) Total Creatine Kinase 5879 U/L (26-308) H C-Reactive Protein, Quantitative 1.6 mg/dL (0.00-0.90) H Pro-B-Type Natriuretic Peptide 8485 pg/mL (0-125) H Total Protein 5.5 G/DL (6.4-8.2) L Albumin 2.0 G/DL (3.4-5.0) L Globulin 3.5 g/dL Albumin/Globulin Ratio 0.6 (1.0-2.7) L Hepatitis C Antibody Pending Hepatitis C RNA (PCR) IUs/ml Pending Hepatitis C RNA (PCR) log IUs/ml Pending Vinny Tobin M.D. Feb 07, 2018 13:32
[2018-02-07 16:00] VITALS: BP 141/78
--- NOTE | 2018-02-07 18:00 | General Progress Note ---
Progress Note Progress Note Surgery: much improved. doing well. no complaints. down graded. no longer needs dialysis. right IJ HD cath removed. dressings applied. patient tolerated well. thank you Goyo Osuna Feb 07, 2018 18:00
--- NOTE | 2018-02-07 18:33 | General Progress Note ---
Assessment/Plan Status: stable Assessment/Plan encephalopathy due to [facility] increase seroquel Subjective Date patient seen: Feb 07, 2018 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: Reports: anxiety, depressed Allergies: Coded Allergies: MILK (Verified Allergy, Unknown, 02/02/18) Uncoded Allergies: MILK PRODUCTS (Allergy, Unknown, 02/02/18) Objective Last 24 Hour Vital Signs Date Time Temp Pulse Resp B/P (MAP) Pulse Ox O2 Delivery O2 Flow Rate FiO2 02/07/18 17:17 110 141/78 02/07/18 16:00 97.8 110 20 141/78 (99) 100 97.8 02/07/18 12:38 136 127/92 02/07/18 12:00 97.5 136 20 127/92 (104) 98 97.5 02/07/18 12:00 133 02/07/18 10:32 138 111/79 02/07/18 10:32 111/79 02/07/18 09:00 Venturi Mask 15.0 02/07/18 08:00 97.7 138 20 111/79 (90) 99 97.7 02/07/18 08:00 137 02/07/18 06:14 136 119/67 02/07/18 04:00 97.4 59 20 122/70 (87) 97.4 02/07/18 04:00 102 02/07/18 00:14 145 118/78 02/07/18 00:00 97.5 149 20 118/78 (91) 100 97.5 02/07/18 00:00 147 02/06/18 23:59 99 Venturi Mask 14.0 55 02/06/18 23:59 Venturi Mask 14.0 55 02/06/18 23:58 105 20 Venturi Mask 14.0 55 02/06/18 21:00 Venturi Mask 15.0 02/06/18 20:05 97.4 144 20 111/72 (85) 97 97.4 02/06/18 20:00 143 Intake and Output 02/06/18 02/07/18 19:00 07:00 Intake Total 920 ml Output Total 745 ml 600 ml Balance 175 ml -600 ml Intake Oral 920 ml Output Urine Total 745 ml 600 ml # Bowel Movements 1 Laboratory Tests 02/07/18 05:35: White Blood Count 15.0H, Red Blood Count 2.64L, Hemoglobin 7.8L, Hematocrit 24.4L, Mean Corpuscular Volume 92, Mean Corpuscular Hemoglobin 29.7, Mean Corpuscular Hemoglobin Concent 32.2, Red Cell Distribution Width 12.8, Platelet Count 129L, Mean Platelet Volume 5.9L, Neutrophils (%) (Auto) , Lymphocytes (%) (Auto) , Monocytes (%) (Auto) , Eosinophils (%) (Auto) , Basophils (%) (Auto) , Differential Total Cells Counted 100, Neutrophils % (Manual) 81H, Lymphocytes % (Manual) 13L, Monocytes % (Manual) 6, Eosinophils % (Manual) 0, Basophils % ( Manual) 0, Band Neutrophils 0, Platelet Estimate DecreasedL, Platelet Morphology Normal, Hypochromasia 3+, Anisocytosis 1+, Spherocytes 2+, Erythrocyte Sedimentation Rate 42H, Sodium Level 144, Potassium Level 4.0, Chloride Level 111H, Carbon Dioxide Level 26, Anion Gap 7, Blood Urea Nitrogen 29H, Creatinine 1.2, Estimat Glomerular Filtration Rate > 60, Glucose Level 131H , Uric Acid 3.5, Calcium Level 8.1L, Phosphorus Level 2.2L, Magnesium Level 1.9 , Total Bilirubin 0.5, Gamma Glutamyl Transpeptidase 155H, Aspartate Amino Transf (AST/SGOT) 476H, Alanine Aminotransferase (ALT/SGPT) 277H, Alkaline Phosphatase 56, Total Creatine Kinase 5879H, C-Reactive Protein, Quantitative 1.6H, Pro-B-Type Natriuretic Peptide 8485H, Total Protein 5.5L, Albumin 2.0L, Globulin 3.5, Albumin/Globulin Ratio 0.6L, Hepatitis C Antibody [Pending], Hepatitis C RNA (PCR) IUs/ml [Pending], Hepatitis C RNA (PCR) log IUs/ml [ Pending] 02/07/18 14:00: Stool Occult Blood [Pending] Height (Feet): 6 Height (Inches): 3.00 Weight (Pounds): 213 General Appearance: no apparent distress, alert Julissa Still MD Feb 07, 2018 18:33
[2018-02-07 20:02] VITALS: BP 121/77
[2018-02-07] MEDS: Dyna-Hex 2% Top Sol 2oz TOPIC SCH (20:22)
[2018-02-07] MEDS: Metoprolol 25mg tab ORAL SCH (20:24)
[2018-02-08] VITALS: BP 130/77
[2018-02-08] MEDS: dilTIAZem HCl 60mg tab ORAL SCH ×2 (00:15→05:32)
[2018-02-08] MEDS: Piperacillin/Tazobactam 3.375 GM in NS 110 ML IVPB SCH ×2 (02:16→09:18)
[2018-02-08 03:42] VITALS: BP 148/92
[2018-02-08] MEDS: Hydrocortisone 100mg Inj IV SCH (05:32)
[2018-02-08] MEDS: Norco 5mg/325mg tab ORAL PRN ×5 (05:36→21:54)
[2018-02-08] MEDS: D5 1/4NS 1000ml 1,000 ML IV SCH ×2 (06:42→17:29)
[2018-02-08 06:44] LABS: HEMATOCRIT 27.4 % (42.0-52.0); HEMOGLOBIN 9.3 G/DL (14.2-18.0); MEAN CORPUSCULAR VOLUME 92 FL (80-99); PLATELET COUNT 132 K/UL (150-450); RED CELL DISTRIBUTION WIDTH 12.8 % (11.6-14.8); WHITE BLOOD COUNT 14.1 K/UL (4.8-10.8)
[2018-02-08 07:13] LABS: ALANINE AMINOTRANSFERASE 273 U/L (12-78); ALBUMIN/GLOBULIN RATIO 0.6 (1.0-2.7); ALKALINE PHOSPHATASE 60 U/L (46-116); ANION GAP 7 mmol/L (5-15); ASPARTATE AMINO TRANSFERASE 372 U/L (15-37); BILIRUBIN,TOTAL 0.7 MG/DL (0.2-1.0); BLOOD UREA NITROGEN 32 mg/dL (7-18); CARBON DIOXIDE 26 MMOL/L (21-32); CHLORIDE 110 MMOL/L (98-107); CREATININE 1.1 MG/DL (0.55-1.30); PHOSPHORUS 1.8 MG/DL (2.5-4.9); POTASSIUM 3.9 MMOL/L (3.5-5.1); SODIUM 143 MMOL/L (136-145)
[2018-02-08 07:15] LABS: INR 1.1 (0.9-1.1)
[2018-02-08 07:17] LABS: LACTATE DEHYDROGENASE 1806 U/L (81-234)
[2018-02-08 08:00] VITALS: BP 120/67
[2018-02-08] MEDS: Heparin 5000 units/ml inj SUBQ SCH ×2 (09:00→21:49)
[2018-02-08] MEDS: Aspirin EC 81mg tab ORAL SCH (09:18)
[2018-02-08] MEDS: Midodrine 10mg tab ORAL SCH ×3 (09:18→17:05)
[2018-02-08] MEDS: Metoprolol 25mg tab ORAL SCH ×2 (09:19→21:48)
[2018-02-08] MEDS: Dakin's 0.125% Soln (Quarter Strength) 16oz TOPIC SCH (09:20)
[2018-02-08 09:36] LABS: IRON 166 ug/dL (50-175)
[2018-02-08 09:47] LABS: % IRON SATURATION 102 % (15-50); TOTAL IRON BINDING CAPACITY 162 ug/dL (250-450)
--- NOTE | 2018-02-08 10:22 | General Progress Note ---
Assessment/Plan Status: stable Assessment/Plan encephalopathy due to gmc bipolar decrease seroquel to 25mg bid cont seroquel 100mg qhs Subjective Date patient seen: Feb 08, 2018 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: Reports: anxiety, depressed Allergies: Coded Allergies: MILK (Verified Allergy, Unknown, 02/02/18) Uncoded Allergies: MILK PRODUCTS (Allergy, Unknown, 02/02/18) Subjective the pt is more alert and oriented able to hold a conversation no behaviors no agitation Objective Last 24 Hour Vital Signs Date Time Temp Pulse Resp B/P (MAP) Pulse Ox O2 Delivery O2 Flow Rate FiO2 02/08/18 09:53 100 Nasal Cannula 2.0 28 02/08/18 09:53 94 20 Nasal Cannula 2.0 28 02/08/18 09:53 Nasal Cannula 2.0 28 02/08/18 09:19 74 120/67 02/08/18 09:19 97.3 02/08/18 05:32 118 138/86 02/08/18 04:00 69 02/08/18 03:42 97.3 76 18 148/92 (110) 100 97.3 76 02/08/18 00:15 91 130/77 02/08/18 00:00 98.0 77 18 130/77 (94) 100 98.0 02/08/18 00:00 91 02/07/18 21:00 Nasal Cannula 2.0 02/07/18 20:24 134 121/77 02/07/18 20:02 97.3 134 18 121/77 (92) 99 97.3 02/07/18 20:00 125 20 Venturi Mask 10.0 45 02/07/18 20:00 Venturi Mask 10.0 45 02/07/18 20:00 95 Venturi Mask 10.0 45 02/07/18 20:00 70 02/07/18 17:17 110 141/78 02/07/18 16:00 136 02/07/18 16:00 97.8 110 20 141/78 (99) 100 97.8 02/07/18 12:38 136 127/92 02/07/18 12:00 97.5 136 20 127/92 (104) 98 97.5 02/07/18 12:00 133 02/07/18 10:32 138 111/79 02/07/18 10:32 111/79 Intake and Output 02/07/18 02/08/18 19:00 07:00 Intake Total 240 ml Output Total 550 ml Balance -310 ml Intake Oral 240 ml Output Urine Total 550 ml Laboratory Tests 02/07/18 14:00: Stool Occult Blood [Pending] 02/08/18 05:21: White Blood Count 14.1H, Red Blood Count 3.00L, Hemoglobin 9.3L, Hematocrit 27.4L, Mean Corpuscular Volume 92, Mean Corpuscular Hemoglobin 31.0, Mean Corpuscular Hemoglobin Concent 33.9, Red Cell Distribution Width 12.8, Platelet Count 132L, Mean Platelet Volume 6.2L, Neutrophils (%) (Auto) , Lymphocytes (%) (Auto) , Monocytes (%) (Auto) , Eosinophils (%) (Auto) , Basophils (%) (Auto) , Differential Total Cells Counted 100, Neutrophils % (Manual) 89H, Lymphocytes % (Manual) 8L, Monocytes % (Manual) 3, Eosinophils % (Manual) 0, Basophils % ( Manual) 0, Band Neutrophils 0, Platelet Estimate DecreasedL, Platelet Morphology Normal, Hypochromasia 2+, Anisocytosis 1+, Spherocytes 1+, Erythrocyte Sedimentation Rate 36H, Reticulocyte Count 1.1, Prothrombin Time 11.0, Prothromb Time International Ratio 1.1, Activated Partial Thromboplast Time 30, Sodium Level 143, Potassium Level 3.9, Chloride Level 110H, Carbon Dioxide Level 26, Anion Gap 7, Blood Urea Nitrogen 32H, Creatinine 1.1, Estimat Glomerular Filtration Rate > 60, Glucose Level 144H, Uric Acid 3.4, Calcium Level 8.0L, Phosphorus Level 1.8L, Magnesium Level 1.5L, Iron Level 166, Total Iron Binding Capacity 162L, Percent Iron Saturation 102H, Unsaturated Iron Binding -4L, Total Bilirubin 0.7, Aspartate Amino Transf (AST/SGOT) 372H, Alanine Aminotransferase (ALT/SGPT) 273H, Alkaline Phosphatase 60, Lactate Dehydrogenase 1806H, Troponin I 0.220H, C-Reactive Protein, Quantitative 0.9, Pro-B-Type Natriuretic Peptide 5961H, Total Protein 5.5L, Albumin 2.0L, Globulin 3.5, Albumin/Globulin Ratio 0.6L, Carcinoembryonic Antigen [Pending], Vitamin B12 Level 491, Folate 7.3L Height (Feet): 6 Height (Inches): 3.00 Weight (Pounds): 214 General Appearance: no apparent distress, alert Neurologic: oriented x 3, responsive, depressed affect Julissa Still MD Feb 08, 2018 10:22
--- NOTE | 2018-02-08 10:49 | Nephrology Progress Note ---
Assessment/Plan Problem List: (1) Acute kidney failure (2) Hyperkalemia (3) Rhabdomyolysis (4) Drug abuse (5) Metabolic encephalopathy (6) Shock liver Assessment Off pressors Acute Renal Failure- Rhabdo Severe HyperKalemia Low BP urinary out let obstruction shock liver Plan Phos Mag and KCL supplements as needed monitor CPK Midodrine Stop Hydrocortisone add lopressor Vanco Once dialysed only on 02/02 IV fluid- discussed with RN Avoid nephrotoxics Subjective ROS Limited/Unobtainable: No Constitutional: Reports: other - stronger Objective Objective Last 24 Hour Vital Signs Date Time Temp Pulse Resp B/P (MAP) Pulse Ox O2 Delivery O2 Flow Rate FiO2 02/08/18 09:53 100 Nasal Cannula 2.0 28 02/08/18 09:53 94 20 Nasal Cannula 2.0 28 02/08/18 09:53 Nasal Cannula 2.0 28 02/08/18 09:19 74 120/67 02/08/18 09:19 97.3 02/08/18 05:32 118 138/86 02/08/18 04:00 69 02/08/18 03:42 97.3 76 18 148/92 (110) 100 97.3 76 02/08/18 00:15 91 130/77 02/08/18 00:00 98.0 77 18 130/77 (94) 100 98.0 02/08/18 00:00 91 02/07/18 21:00 Nasal Cannula 2.0 02/07/18 20:24 134 121/77 02/07/18 20:02 97.3 134 18 121/77 (92) 99 97.3 02/07/18 20:00 125 20 Venturi Mask 10.0 45 02/07/18 20:00 Venturi Mask 10.0 45 02/07/18 20:00 95 Venturi Mask 10.0 45 02/07/18 20:00 70 02/07/18 17:17 110 141/78 02/07/18 16:00 136 02/07/18 16:00 97.8 110 20 141/78 (99) 100 97.8 02/07/18 12:38 136 127/92 02/07/18 12:00 97.5 136 20 127/92 (104) 98 97.5 02/07/18 12:00 133 Intake and Output 02/07/18 02/08/18 19:00 07:00 Intake Total 240 ml Output Total 550 ml Balance -310 ml Intake Oral 240 ml Output Urine Total 550 ml Laboratory Tests 02/07/18 14:00: Stool Occult Blood Positive 02/08/18 05:21: White Blood Count 14.1H, Red Blood Count 3.00L, Hemoglobin 9.3L, Hematocrit 27.4L, Mean Corpuscular Volume 92, Mean Corpuscular Hemoglobin 31.0, Mean Corpuscular Hemoglobin Concent 33.9, Red Cell Distribution Width 12.8, Platelet Count 132L, Mean Platelet Volume 6.2L, Neutrophils (%) (Auto) , Lymphocytes (%) (Auto) , Monocytes (%) (Auto) , Eosinophils (%) (Auto) , Basophils (%) (Auto) , Differential Total Cells Counted 100, Neutrophils % (Manual) 89H, Lymphocytes % (Manual) 8L, Monocytes % (Manual) 3, Eosinophils % (Manual) 0, Basophils % ( Manual) 0, Band Neutrophils 0, Platelet Estimate DecreasedL, Platelet Morphology Normal, Hypochromasia 2+, Anisocytosis 1+, Spherocytes 1+, Erythrocyte Sedimentation Rate 36H, Reticulocyte Count 1.1, Prothrombin Time 11.0, Prothromb Time International Ratio 1.1, Activated Partial Thromboplast Time 30, Sodium Level 143, Potassium Level 3.9, Chloride Level 110H, Carbon Dioxide Level 26, Anion Gap 7, Blood Urea Nitrogen 32H, Creatinine 1.1, Estimat Glomerular Filtration Rate > 60, Glucose Level 144H, Uric Acid 3.4, Calcium Level 8.0L, Phosphorus Level 1.8L, Magnesium Level 1.5L, Iron Level 166, Total Iron Binding Capacity 162L, Percent Iron Saturation 102H, Unsaturated Iron Binding -4L, Total Bilirubin 0.7, Aspartate Amino Transf (AST/SGOT) 372H, Alanine Aminotransferase (ALT/SGPT) 273H, Alkaline Phosphatase 60, Lactate Dehydrogenase 1806H, Troponin I 0.220H, C-Reactive Protein, Quantitative 0.9, Pro-B-Type Natriuretic Peptide 5961H, Total Protein 5.5L, Albumin 2.0L, Globulin 3.5, Albumin/Globulin Ratio 0.6L, Carcinoembryonic Antigen [Pending], Vitamin B12 Level 491, Folate 7.3L Height (Feet): 6 Height (Inches): 3.00 Weight (Pounds): 214 General Appearance: no apparent distress Objective no other change Ruy Colvin MD Feb 08, 2018 10:49
--- NOTE | 2018-02-08 10:50 | Pulmonology Progress Note ---
Assessment/Plan Problems: (1) Metabolic encephalopathy (2) Acute kidney failure (3) NSTEMI (non-ST elevated myocardial infarction) (4) Bipolar 1 disorder (5) Sepsis (6) Shock liver (7) HTN (hypertension) (8) CVA (cerebral vascular accident) (9) CAD (coronary artery disease) Assessment/Plan wbc still high, will dc left neck cent Mg and Phos supplement Keep in teli because of A-flutter HD access was removed yesterday check electrolytes anemia w/u check cultures pt/ot Subjective ROS Limited/Unobtainable: No Interval Events: sitting up, no new complains Allergies: Coded Allergies: MILK (Verified Allergy, Unknown, 02/02/18) Uncoded Allergies: MILK PRODUCTS (Allergy, Unknown, 02/02/18) Objective Last 24 Hour Vital Signs Date Time Temp Pulse Resp B/P (MAP) Pulse Ox O2 Delivery O2 Flow Rate FiO2 02/08/18 09:53 100 Nasal Cannula 2.0 28 02/08/18 09:53 94 20 Nasal Cannula 2.0 28 02/08/18 09:53 Nasal Cannula 2.0 28 02/08/18 09:19 74 120/67 02/08/18 09:19 97.3 02/08/18 05:32 118 138/86 02/08/18 04:00 69 02/08/18 03:42 97.3 76 18 148/92 (110) 100 97.3 76 02/08/18 00:15 91 130/77 02/08/18 00:00 98.0 77 18 130/77 (94) 100 98.0 02/08/18 00:00 91 02/07/18 21:00 Nasal Cannula 2.0 02/07/18 20:24 134 121/77 02/07/18 20:02 97.3 134 18 121/77 (92) 99 97.3 02/07/18 20:00 125 20 Venturi Mask 10.0 45 02/07/18 20:00 Venturi Mask 10.0 45 02/07/18 20:00 95 Venturi Mask 10.0 45 02/07/18 20:00 70 02/07/18 17:17 110 141/78 02/07/18 16:00 136 02/07/18 16:00 97.8 110 20 141/78 (99) 100 97.8 02/07/18 12:38 136 127/92 02/07/18 12:00 97.5 136 20 127/92 (104) 98 97.5 02/07/18 12:00 133 Intake and Output 02/07/18 02/08/18 19:00 07:00 Intake Total 240 ml Output Total 550 ml Balance -310 ml Intake Oral 240 ml Output Urine Total 550 ml General Appearance: WD/WN HEENT: normocephalic, atraumatic Respiratory/Chest: chest wall non-tender, lungs clear Cardiovascular: normal peripheral pulses, normal rate Abdomen: normal bowel sounds, soft, non tender Genitourinary: normal external genitalia Extremities: no cyanosis Skin: no rash 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 Lymphatic: no neck adenopathy Laboratory Tests 02/07/18 14:00: Stool Occult Blood Positive 02/08/18 05:21: White Blood Count 14.1H, Red Blood Count 3.00L, Hemoglobin 9.3L, Hematocrit 27.4L, Mean Corpuscular Volume 92, Mean Corpuscular Hemoglobin 31.0, Mean Corpuscular Hemoglobin Concent 33.9, Red Cell Distribution Width 12.8, Platelet Count 132L, Mean Platelet Volume 6.2L, Neutrophils (%) (Auto) , Lymphocytes (%) (Auto) , Monocytes (%) (Auto) , Eosinophils (%) (Auto) , Basophils (%) (Auto) , Differential Total Cells Counted 100, Neutrophils % (Manual) 89H, Lymphocytes % (Manual) 8L, Monocytes % (Manual) 3, Eosinophils % (Manual) 0, Basophils % ( Manual) 0, Band Neutrophils 0, Platelet Estimate DecreasedL, Platelet Morphology Normal, Hypochromasia 2+, Anisocytosis 1+, Spherocytes 1+, Erythrocyte Sedimentation Rate 36H, Reticulocyte Count 1.1, Prothrombin Time 11.0, Prothromb Time International Ratio 1.1, Activated Partial Thromboplast Time 30, Sodium Level 143, Potassium Level 3.9, Chloride Level 110H, Carbon Dioxide Level 26, Anion Gap 7, Blood Urea Nitrogen 32H, Creatinine 1.1, Estimat Glomerular Filtration Rate > 60, Glucose Level 144H, Uric Acid 3.4, Calcium Level 8.0L, Phosphorus Level 1.8L, Magnesium Level 1.5L, Iron Level 166, Total Iron Binding Capacity 162L, Percent Iron Saturation 102H, Unsaturated Iron Binding -4L, Total Bilirubin 0.7, Aspartate Amino Transf (AST/SGOT) 372H, Alanine Aminotransferase (ALT/SGPT) 273H, Alkaline Phosphatase 60, Lactate Dehydrogenase 1806H, Troponin I 0.220H, C-Reactive Protein, Quantitative 0.9, Pro-B-Type Natriuretic Peptide 5961H, Total Protein 5.5L, Albumin 2.0L, Globulin 3.5, Albumin/Globulin Ratio 0.6L, Carcinoembryonic Antigen [Pending], Vitamin B12 Level 491, Folate 7.3L Current Medications Medications (Trade) Dose Ordered Sig/Erlin Route PRN Reason Start Time Stop Time Status Last Admin Dose Admin Acetaminophen (Tylenol) 650 mg Q4H PRN ORAL Mild Pain/Temp > 100.5 02/06/18 12:30 03/04/18 12:29 Acetaminophen/ Hydrocodone Bitart ([place] 5/325) 1 tab Q4H PRN ORAL Moderate Pain (Pain Scale 4-6) 02/06/18 13:30 02/10/18 13:23 02/08/18 09:19 Al Hydroxide/Mg Hydroxide (Mylanta) 30 ml Q6H PRN ORAL Abdominal cramps 02/06/18 20:40 03/08/18 20:39 02/06/18 21:13 Albuterol/ Ipratropium (Albuterol/ Ipratropium) 3 ml Q4H PRN HHN Shortness of Breath 02/06/18 12:30 02/10/18 08:29 Aspirin (Ecotrin) 81 mg DAILY ORAL 02/07/18 09:00 03/06/18 08:59 02/08/18 09:18 Chlorhexidine Gluconate (Yari-Hex 2%) 1 applic DAILY@2000 TOPIC 02/06/18 20:00 03/04/18 19:59 02/07/18 20:22 Dextrose (Dextrose 50%) 25 ml PRN IV Hypoglycemia 02/06/18 12:30 03/04/18 12:59 Dextrose (Dextrose 50%) 50 ml PRN IV hypoglycemia 02/06/18 12:30 03/04/18 12:59 Dextrose/Sodium Chloride 1,000 ml @ 75 mls/hr [id number] IV 02/06/18 12:30 03/08/18 08:59 02/08/18 06:42 Diltiazem HCl (Cardizem) 90 mg EVERY 6 HOURS ORAL 02/08/18 12:00 03/10/18 11:59 Heparin Sodium (Porcine) (Heparin 5000 units/ml) 5,000 units EVERY 12 HOURS SUBQ 02/06/18 21:00 03/04/18 20:59 02/07/18 20:24 Metoprolol Tartrate (Lopressor) 75 mg Q12HR ORAL 02/07/18 21:00 03/09/18 20:59 02/08/18 09:19 Midodrine (Pro-Amatine) 10 mg THREE TIMES A DAY ORAL 02/06/18 13:00 03/06/18 12:59 02/08/18 09:18 Ondansetron HCl (Zofran) 4 mg Q6H PRN IVP Nausea & Vomiting 02/06/18 12:30 03/04/18 12:29 Pantoprazole (Protonix) 40 mg EVERY 12 HOURS ORAL 02/06/18 21:00 03/07/18 20:59 02/08/18 09:18 Piperacillin Sod/ Tazobactam Sod 3.375 gm/Sodium Chloride 110 ml @ 27.5 mls/hr Q8HR@0200,1000,1800 IVPB 02/06/18 18:00 02/12/18 09:59 02/08/18 09:18 Polyethylene Glycol (Miralax) 17 gm DAILYPRN PRN ORAL Constipation 02/06/18 12:30 03/04/18 12:29 Quetiapine Fumarate (SEROquel) 25 mg BID ORAL 02/08/18 09:00 03/10/18 08:59 02/08/18 09:18 Quetiapine Fumarate (SEROquel) 25 mg Q4H PRN ORAL Anxiety 02/06/18 13:45 03/05/18 09:44 Quetiapine Fumarate (SEROquel) 100 mg QHS ORAL 02/06/18 21:00 03/05/18 20:59 02/07/18 20:22 Sodium Hypochlorite (Dakin's Quarter Strength) 1 applic DAILY TOPIC 02/07/18 09:00 03/07/18 08:59 02/08/18 09:20 Temazepam (Restoril) 15 mg HSPRN PRN ORAL Insomnia 02/06/18 21:00 02/09/18 20:59 Minerva Montesinos MD Feb 08, 2018 10:50
[2018-02-08 12:00] VITALS: BP 119/79
[2018-02-08] MEDS ORDERED: Vancomycin 1.5gm/D5W 250ml 250 ML IVPB ONE (12:00)
[2018-02-08] MEDS ORDERED: dilTIAZem HCl 90mg tab ORAL SCH (12:00)
[2018-02-08] MEDS ORDERED: Sodium Phosphate 30 MM in NS 275 ML IV ONE (12:45)
[2018-02-08] MEDS ORDERED: Potassium Phosphate 30 MM in NS 275 ML IV ONE (14:00)
[2018-02-08 16:00] VITALS: BP 120/78
--- NOTE | 2018-02-08 16:03 | Infectious Diseases Prog Note ---
Assessment/Plan Assessment/Plan Assessment: Shock, SP Leukocytosis- elevated, fluctuating -HIDA scan: Patent cystic duct; no evidence of acute cholecystitis. Common bile duct is patent, but emptying into the duodenum is somewhat slow; small bowel activity not seen until after 60 minutes. Significance of this is uncertain. This can represent a normal anatomic variant, but could also represent partial biliary obstruction -Abd US: Gallbladder sludge, but no stones. Apparent mild gallbladder wall thickening, probably an artifact of under distention, but if real could indicate acute acalculous cholecystitis, among other possibilities. Consider hepatobiliary nuclear scan if there is high clinical suspicion. Mildly dilated common bile duct. Downstream obstruction not excludable. Consider MRCP for further evaluation, if clinically indicated. 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; prob colonizer), MSSA Acute renal failure- suspect 2ry to urinary outlet obstruction - ?toxic- started on HD; off HD now -UDS + opiates -Salicylic acid neg Rhabdomyolysis; improving Elevated LFTs (AST>ALT); shock liver; imporivng -Hep C +, hep B immune (Bs ab+, Bc ab +), Hep A not immune -HIV ab neg Hyperkalemia w/ EKG changes, SP Hypotension/bradycardia upon admission -2ry to above Metabolic encephalopathy; improving NSTEMI Plan: -Switch empiric Zosyn #6 to Meropenem as trial for leukocytosis to cover PsA and MSSA in wound cx -02/07 SP IV Vancomycin #4 -f/u Hep C VL -Renal, cards f/u -f/u cx -Monitor CBC/CMP, temperatures; Trend WBC -Aspiration precautions -wound care as per hosp protocol -Will need Hep A immunization as outpatient Thank you for this consultation. Will continue to follow along with you. Discussed with RN and family at bedside. Subjective Allergies: Coded Allergies: MILK (Verified Allergy, Unknown, 02/02/18) Uncoded Allergies: MILK PRODUCTS (Allergy, Unknown, 02/02/18) Subjective afebrile leukocytosis fluctuating Bcx NTD Objective Vital Signs Last 24 Hour Vital Signs Date Time Temp Pulse Resp B/P (MAP) Pulse Ox O2 Delivery O2 Flow Rate FiO2 02/08/18 14:30 97.3 02/08/18 13:31 97.3 02/08/18 12:21 71 119/79 02/08/18 12:00 97.0 71 20 119/79 (92) 100 97.0 71 02/08/18 09:53 100 Nasal Cannula 2.0 28 02/08/18 09:53 94 20 Nasal Cannula 2.0 28 02/08/18 09:53 Nasal Cannula 2.0 28 02/08/18 09:19 74 120/67 02/08/18 09:19 97.3 02/08/18 09:00 Nasal Cannula 2.0 02/08/18 08:00 97.8 74 20 120/67 (84) 100 97.8 74 02/08/18 05:32 118 138/86 02/08/18 04:00 69 02/08/18 03:42 97.3 76 18 148/92 (110) 100 97.3 76 02/08/18 00:15 91 130/77 02/08/18 00:00 98.0 77 18 130/77 (94) 100 98.0 02/08/18 00:00 91 02/07/18 21:00 Nasal Cannula 2.0 02/07/18 20:24 134 121/77 02/07/18 20:02 97.3 134 18 121/77 (92) 99 97.3 02/07/18 20:00 125 20 Venturi Mask 10.0 45 02/07/18 20:00 Venturi Mask 10.0 45 02/07/18 20:00 95 Venturi Mask 10.0 45 02/07/18 20:00 70 02/07/18 17:17 110 141/78 02/07/18 16:00 136 02/07/18 16:00 97.8 110 20 141/78 (99) 100 97.8 Height (Feet): 6 Height (Inches): 3.00 Weight (Pounds): 214 Objective General Appearance: thin, Chronically Ill Eyes: bilateral eye PERRL ENT: dry mucus membranes Neck: normal inspection, supple, thyroid normal Respiratory: normal inspection, lungs clear, normal breath sounds, no accessory muscle use Cardiovascular #1: normal inspection, normal peripheral pulses, regular rate, rhythm Gastrointestinal: normal bowel sounds, non tender, soft Musculoskeletal: other - chronic wound right lower leg; good rom hips, nontender Neurologic: other - lethargic, moves to painful stimuli and spont, occasional word Psychiatric: other - cannot evaluate Laboratory Tests Test 02/08/18 05:21 White Blood Count 14.1 K/UL (4.8-10.8) H Red Blood Count 3.00 M/UL (4.70-6.10) L Hemoglobin 9.3 G/DL (14.2-18.0) L Hematocrit 27.4 % (42.0-52.0) L Mean Corpuscular Volume 92 FL (80-99) Mean Corpuscular Hemoglobin 31.0 PG (27.0-31.0) Mean Corpuscular Hemoglobin Concent 33.9 G/DL (32.0-36.0) Red Cell Distribution Width 12.8 % (11.6-14.8) Platelet Count 132 K/UL (150-450) L Mean Platelet Volume 6.2 FL (6.5-10.1) L Neutrophils (%) (Auto) % (45.0-75.0) Lymphocytes (%) (Auto) % (20.0-45.0) Monocytes (%) (Auto) % (1.0-10.0) Eosinophils (%) (Auto) % (0.0-3.0) Basophils (%) (Auto) % (0.0-2.0) Differential Total Cells Counted 100 Neutrophils % (Manual) 89 % (45-75) H Lymphocytes % (Manual) 8 % (20-45) L Monocytes % (Manual) 3 % (1-10) Eosinophils % (Manual) 0 % (0-3) Basophils % (Manual) 0 % (0-2) Band Neutrophils 0 % (0-8) Other Cell Type Pathologist comment Platelet Estimate Decreased L Platelet Morphology Normal Hypochromasia 2+ Anisocytosis 1+ Spherocytes 1+ Erythrocyte Sedimentation Rate 36 MM/HR (0-20) H Reticulocyte Count 1.1 % (0.0-2.0) Prothrombin Time 11.0 SEC (9.30-11.50) Prothromb Time International Ratio 1.1 (0.9-1.1) Activated Partial Thromboplast Time 30 SEC (23-33) Sodium Level 143 MMOL/L (136-145) Potassium Level 3.9 MMOL/L (3.5-5.1) Chloride Level 110 MMOL/L (98-107) H Carbon Dioxide Level 26 MMOL/L (21-32) Anion Gap 7 mmol/L (5-15) Blood Urea Nitrogen 32 mg/dL (7-18) H Creatinine 1.1 MG/DL (0.55-1.30) Estimat Glomerular Filtration Rate > 60 mL/min (>60) Glucose Level 144 MG/DL (74-106) H Uric Acid 3.4 MG/DL (2.6-7.2) Calcium Level 8.0 MG/DL (8.5-10.1) L Phosphorus Level 1.8 MG/DL (2.5-4.9) L Magnesium Level 1.5 MG/DL (1.8-2.4) L Iron Level 166 ug/dL (50-175) Total Iron Binding Capacity 162 ug/dL (250-450) L Percent Iron Saturation 102 % (15-50) H Unsaturated Iron Binding -4 ug/dL (112-346) L Total Bilirubin 0.7 MG/DL (0.2-1.0) Aspartate Amino Transf (AST/SGOT) 372 U/L (15-37) H Alanine Aminotransferase (ALT/SGPT) 273 U/L (12-78) H Alkaline Phosphatase 60 U/L (46-116) Lactate Dehydrogenase 1806 U/L (81-234) H Troponin I 0.220 ng/mL (0.000-0.056) C-Reactive Protein, Quantitative 0.9 mg/dL (0.00-0.90) Pro-B-Type Natriuretic Peptide 5961 pg/mL (0-125) H Total Protein 5.5 G/DL (6.4-8.2) L Albumin 2.0 G/DL (3.4-5.0) L Globulin 3.5 g/dL Albumin/Globulin Ratio 0.6 (1.0-2.7) L Carcinoembryonic Antigen Pending Vitamin B12 Level 491 PG/ML (193-986) Folate 7.3 NG/ML (8.6-58.9) L Current Medications Medications (Trade) Dose Ordered Sig/Erlin Route PRN Reason Start Time Stop Time Status Last Admin Dose Admin Acetaminophen (Tylenol) 650 mg Q4H PRN ORAL Mild Pain/Temp > 100.5 02/06/18 12:30 9/15/18 12:29 Acetaminophen/ Hydrocodone Bitart ([place] 5/325) 1 tab Q4H PRN ORAL Moderate Pain (Pain Scale 4-6) 02/06/18 13:30 02/10/18 13:23 02/08/18 13:31 Albuterol/ Ipratropium (Albuterol/ Ipratropium) 3 ml Q4H PRN HHN Shortness of Breath 02/06/18 12:30 02/10/18 08:29 Aspirin (Ecotrin) 81 mg DAILY ORAL 02/07/18 09:00 03/06/18 08:59 02/08/18 09:18 Chlorhexidine Gluconate (Yari-Hex 2%) 1 applic DAILY@2000 TOPIC 02/06/18 20:00 03/04/18 19:59 02/07/18 20:22 Dextrose (Dextrose 50%) 25 ml PRN IV Hypoglycemia 02/06/18 12:30 03/04/18 12:59 Dextrose (Dextrose 50%) 50 ml PRN IV hypoglycemia 02/06/18 12:30 03/04/18 12:59 Dextrose/Sodium Chloride 1,000 ml @ 75 mls/hr [id number] IV 02/06/18 12:30 03/08/18 08:59 02/08/18 06:42 Diltiazem HCl (Cardizem) 90 mg EVERY 6 HOURS ORAL 02/08/18 12:00 03/10/18 11:59 02/08/18 12:21 Heparin Sodium (Porcine) (Heparin 5000 units/ml) 5,000 units EVERY 12 HOURS SUBQ 02/06/18 21:00 03/04/18 20:59 02/07/18 20:24 Metoprolol Tartrate (Lopressor) 75 mg Q12HR ORAL 02/07/18 21:00 03/09/18 20:59 02/08/18 09:19 Midodrine (Pro-Amatine) 10 mg THREE TIMES A DAY ORAL 02/06/18 13:00 03/06/18 12:59 02/08/18 12:20 Ondansetron HCl (Zofran) 4 mg Q6H PRN IVP Nausea & Vomiting 02/06/18 12:30 03/04/18 12:29 Pantoprazole (Protonix) 40 mg EVERY 12 HOURS ORAL 8/20/18 21:00 03/07/18 20:59 02/08/18 09:18 Piperacillin Sod/ Tazobactam Sod 3.375 gm/Sodium Chloride 110 ml @ 27.5 mls/hr Q8HR@0200,1000,1800 IVPB 02/06/18 18:00 02/12/18 09:59 02/08/18 09:18 Polyethylene Glycol (Miralax) 17 gm DAILYPRN PRN ORAL Constipation 02/06/18 12:30 03/04/18 12:29 Potassium Phosphate 30 mm/ Sodium Chloride 285 ml @ 47.5 mls/hr ONCE ONCE IV 02/08/18 14:00 02/08/18 19:59 02/08/18 13:32 Quetiapine Fumarate (SEROquel) 25 mg BID ORAL 02/08/18 09:00 03/10/18 08:59 02/08/18 09:18 Quetiapine Fumarate (SEROquel) 25 mg Q4H PRN ORAL Anxiety 02/06/18 13:45 03/05/18 09:44 Quetiapine Fumarate (SEROquel) 100 mg QHS ORAL 02/06/18 21:00 03/05/18 20:59 02/07/18 20:22 Sodium Hypochlorite (Dakin's Quarter Strength) 1 applic DAILY TOPIC 02/07/18 09:00 03/07/18 08:59 02/08/18 09:20 Temazepam (Restoril) 15 mg HSPRN PRN ORAL Insomnia 02/06/18 21:00 02/09/18 20:59 Alma Elkins M.D. Feb 08, 2018 16:03
--- NOTE | 2018-02-08 16:36 | Cardiology Progress Note ---
Assessment/Plan Status: stable Assessment/Plan Assessment: Right leg ulcer ALBERTO Rhabdomyolysis Hyperkalemia Bradycardia Encephalopathy Elevated troponin Plan: Echocardiogram - preserved systolic function, no wall motion abnormalities Trend troponin - coming down Monitor LFT, Abdominal US showed biliary sludge -> HIDA negative for cholecystitis Stress test when stable given elevated troponin and hx of CAD Aspirin Statin Taper steroids Leg ultrasound negative for stenosis D/c cardizem Continue metoprolol 75 BID, will taper down Continue abx Transfuse for anemia PRBC Endoscopy when stable Swallow evaluation - advance diet Physical therapy Subjective Cardiovascular: Reports: no symptoms Respiratory: Reports: no symptoms Gastrointestinal/Abdominal: Reports: no symptoms Genitourinary: Reports: no symptoms Subjective No acute events, Dialysis catheter removed Heart rate normalized Objective Last 24 Hour Vital Signs Date Time Temp Pulse Resp B/P (MAP) Pulse Ox O2 Delivery O2 Flow Rate FiO2 02/08/18 14:30 97.3 02/08/18 13:31 97.3 02/08/18 12:21 71 119/79 02/08/18 12:00 97.0 71 20 119/79 (92) 100 97.0 71 02/08/18 09:53 100 Nasal Cannula 2.0 28 02/08/18 09:53 94 20 Nasal Cannula 2.0 28 02/08/18 09:53 Nasal Cannula 2.0 28 02/08/18 09:19 74 120/67 02/08/18 09:19 97.3 02/08/18 09:00 Nasal Cannula 2.0 02/08/18 08:00 97.8 74 20 120/67 (84) 100 97.8 74 02/08/18 05:32 118 138/86 02/08/18 04:00 69 02/08/18 03:42 97.3 76 18 148/92 (110) 100 97.3 76 02/08/18 00:15 91 130/77 02/08/18 00:00 98.0 77 18 130/77 (94) 100 98.0 02/08/18 00:00 91 02/07/18 21:00 Nasal Cannula 2.0 02/07/18 20:24 134 121/77 02/07/18 20:02 97.3 134 18 121/77 (92) 99 97.3 02/07/18 20:00 125 20 Venturi Mask 10.0 45 02/07/18 20:00 Venturi Mask 10.0 45 02/07/18 20:00 95 Venturi Mask 10.0 45 02/07/18 20:00 70 02/07/18 17:17 110 141/78 General Appearance: no apparent distress, alert EENT: PERRL/EOMI, normal ENT inspection Neck: non-tender, normal alignment Rhythm: NSR, Afib Cardiovascular: normal peripheral pulses, normal rate Respiratory/Chest: chest wall non-tender, lungs clear Abdomen: normal bowel sounds, non tender Extremities: normal range of motion, non-tender 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 Intake and Output 02/07/18 02/08/18 19:00 07:00 Intake Total 240 ml Output Total 550 ml Balance -310 ml Intake Oral 240 ml Output Urine Total 550 ml Laboratory Tests Test 02/08/18 05:21 White Blood Count 14.1 K/UL (4.8-10.8) H Red Blood Count 3.00 M/UL (4.70-6.10) L Hemoglobin 9.3 G/DL (14.2-18.0) L Hematocrit 27.4 % (42.0-52.0) L Mean Corpuscular Volume 92 FL (80-99) Mean Corpuscular Hemoglobin 31.0 PG (27.0-31.0) Mean Corpuscular Hemoglobin Concent 33.9 G/DL (32.0-36.0) Red Cell Distribution Width 12.8 % (11.6-14.8) Platelet Count 132 K/UL (150-450) L Mean Platelet Volume 6.2 FL (6.5-10.1) L Neutrophils (%) (Auto) % (45.0-75.0) Lymphocytes (%) (Auto) % (20.0-45.0) Monocytes (%) (Auto) % (1.0-10.0) Eosinophils (%) (Auto) % (0.0-3.0) Basophils (%) (Auto) % (0.0-2.0) Differential Total Cells Counted 100 Neutrophils % (Manual) 89 % (45-75) H Lymphocytes % (Manual) 8 % (20-45) L Monocytes % (Manual) 3 % (1-10) Eosinophils % (Manual) 0 % (0-3) Basophils % (Manual) 0 % (0-2) Band Neutrophils 0 % (0-8) Other Cell Type Pathologist comment Platelet Estimate Decreased L Platelet Morphology Normal Hypochromasia 2+ Anisocytosis 1+ Spherocytes 1+ Erythrocyte Sedimentation Rate 36 MM/HR (0-20) H Reticulocyte Count 1.1 % (0.0-2.0) Prothrombin Time 11.0 SEC (9.30-11.50) Prothromb Time International Ratio 1.1 (0.9-1.1) Activated Partial Thromboplast Time 30 SEC (23-33) Sodium Level 143 MMOL/L (136-145) Potassium Level 3.9 MMOL/L (3.5-5.1) Chloride Level 110 MMOL/L (98-107) H Carbon Dioxide Level 26 MMOL/L (21-32) Anion Gap 7 mmol/L (5-15) Blood Urea Nitrogen 32 mg/dL (7-18) H Creatinine 1.1 MG/DL (0.55-1.30) Estimat Glomerular Filtration Rate > 60 mL/min (>60) Glucose Level 144 MG/DL (74-106) H Uric Acid 3.4 MG/DL (2.6-7.2) Calcium Level 8.0 MG/DL (8.5-10.1) L Phosphorus Level 1.8 MG/DL (2.5-4.9) L Magnesium Level 1.5 MG/DL (1.8-2.4) L Iron Level 166 ug/dL (50-175) Total Iron Binding Capacity 162 ug/dL (250-450) L Percent Iron Saturation 102 % (15-50) H Unsaturated Iron Binding -4 ug/dL (112-346) L Total Bilirubin 0.7 MG/DL (0.2-1.0) Aspartate Amino Transf (AST/SGOT) 372 U/L (15-37) H Alanine Aminotransferase (ALT/SGPT) 273 U/L (12-78) H Alkaline Phosphatase 60 U/L (46-116) Lactate Dehydrogenase 1806 U/L (81-234) H Troponin I 0.220 ng/mL (0.000-0.056) C-Reactive Protein, Quantitative 0.9 mg/dL (0.00-0.90) Pro-B-Type Natriuretic Peptide 5961 pg/mL (0-125) H Total Protein 5.5 G/DL (6.4-8.2) L Albumin 2.0 G/DL (3.4-5.0) L Globulin 3.5 g/dL Albumin/Globulin Ratio 0.6 (1.0-2.7) L Carcinoembryonic Antigen Pending Vitamin B12 Level 491 PG/ML (193-986) Folate 7.3 NG/ML (8.6-58.9) L Vinny Tobin M.D. Feb 08, 2018 16:36
[2018-02-08] MEDS: Meropenem 1 GM in NS 55 ML IVPB SCH (17:00)
[2018-02-08 20:00] VITALS: BP 119/80
[2018-02-08] MEDS: Dyna-Hex 2% Top Sol 2oz TOPIC SCH (21:48)
--- NOTE | 2018-02-08 21:58 | Consultation ---
DATE OF CONSULTATION: 02/08/2018 PODIATRIC CONSULTATION CONSULTING PHYSICIAN: Shea Henry D.P.M. REFERRING PHYSICIAN: Minerva Montesinos M.D. HISTORY OF PRESENT ILLNESS: This is a 67-year-old male, who is admitted to [facility] due to hyperkalemia and acute renal failure. The patient relates that he has a longstanding wound on the back of his right leg that has recently undergone two skin grafts. The patient also relates a recent wound to the right big toe. The patient denies current pain from the right big toe. He relates treatment through a Dr. Henry at [facility]. PAST MEDICAL HISTORY: The patient has a history of hypertension, bipolar, hypernatremia, coronary artery disease, cerebrovascular accident, atrial fibrillation, right lower extremity chronic ulcer, and substance abuse. MEDICATIONS: Tylenol, albuterol, ipratropium, Ecotrin, chlorhexidine, dextrose, Cardizem, heparin, [place], magnesium, Lopressor, ProAmatine, Zofran, Protonix, Zosyn, MiraLAX, calcium, Seroquel, Restoril, and vancomycin. ALLERGIES: He is allergic to milk. LOWER EXTREMITY PHYSICAL EXAMINATION: VITAL SIGNS: Currently, blood pressure 120/67, pulse 74, temperature 97.3, and respirations 20. VASCULAR: His dorsalis pedis and posterior tibialis arteries are weakly palpable 1/4 bilaterally with the capillary refill time of 5 to 10 seconds on the right and 3 to 5 seconds on the left. NEUROLOGIC: His light touch sensation is intact to bilateral feet. MUSCULOSKELETAL: His foot and ankle range of motion is limited, but without pain bilaterally. There is mild tenderness to palpation to the dorsal right big toe. DERMATOLOGIC: There is a dressing in place to the right leg with apparent posterior leg ulcer status post skin graft x 2 also with a dressing applied to the right hallux. Upon removal of the dressing on the right hallux, there is a small superficial ulceration measuring 1 cm in diameter with minimal edema. No erythema, warmth, odor, or purulent discharge appreciated and no hyperkeratosis. There are mildly elongated dystrophic nails x10. There is a hyperkeratotic lesion at the plantar lateral midfoot of the left foot, but there are no other preulcerative lesions or interspace lacerations appreciated in bilateral feet. IMPRESSION: This is a patient with sepsis, acute kidney failure, cerebrovascular accident, coronary artery disease, and bipolar disease. He has a chronic right lower extremity ulcer and a superficial ulceration at the dorsal right big toe. PLAN: I have reviewed foot care guidelines at length with the patient. I encourage continued wound care and treatment per his treating surgeon and recommend continued decubitus precautions and continued treatment per Dr. Montesinos. Thank you again for this consultation Dr. Montesinos. Shea Henry D.P.M. DR: VALERIANO JOB#: [id number] CC: GEORGETTE
[2018-02-09] VITALS: BP 120/80
[2018-02-09] MEDS: Meropenem 1 GM in NS 55 ML IVPB SCH ×3 (01:00→16:11)
[2018-02-09 04:00] VITALS: BP 123/87
[2018-02-09 05:53] LABS: BASOPHILS % (AUTO) 0.6 % (0.0-2.0); EOSINOPHILS % (AUTO) 0.3 % (0.0-3.0); HEMATOCRIT 29.1 % (42.0-52.0); HEMOGLOBIN 9.6 G/DL (14.2-18.0); LYMPHOCYTES % (AUTO) 12.9 % (20.0-45.0); MEAN CORPUSCULAR VOLUME 91 FL (80-99); MONOCYTES % (AUTO) 8.8 % (1.0-10.0); NEUTROPHILS % (AUTO) 77.5 % (45.0-75.0); PLATELET COUNT 158 K/UL (150-450); RED BLOOD COUNT 3.19 M/UL (4.70-6.10)
[2018-02-09 06:26] LABS: ALANINE AMINOTRANSFERASE 258 U/L (12-78); ALBUMIN 1.9 G/DL (3.4-5.0); ALBUMIN/GLOBULIN RATIO 0.6 (1.0-2.7); ALKALINE PHOSPHATASE 63 U/L (46-116); ANION GAP 5 mmol/L (5-15); ASPARTATE AMINO TRANSFERASE 279 U/L (15-37); BILIRUBIN,TOTAL 0.6 MG/DL (0.2-1.0); BLOOD UREA NITROGEN 27 mg/dL (7-18); CALCIUM 7.8 MG/DL (8.5-10.1); CARBON DIOXIDE 28 MMOL/L (21-32); CHLORIDE 108 MMOL/L (98-107); CREATININE 1.1 MG/DL (0.55-1.30); PHOSPHORUS 1.8 MG/DL (2.5-4.9); POTASSIUM 3.9 MMOL/L (3.5-5.1); SODIUM 141 MMOL/L (136-145)
[2018-02-09 06:34] LABS: CREATINE KINASE 2920 U/L (26-308); GAMMA GLUTAMYL TRANSPEPTIDASE 186 U/L (5-85)
[2018-02-09] MEDS: Norco 5mg/325mg tab ORAL PRN ×3 (06:42→17:15)
[2018-02-09 08:00] VITALS: BP 110/73
[2018-02-09] MEDS: Aspirin EC 81mg tab ORAL SCH (08:32)
[2018-02-09] MEDS: Metoprolol 25mg tab ORAL SCH ×2 (08:32→21:30)
[2018-02-09] MEDS: Midodrine 10mg tab ORAL SCH ×3 (08:32→17:14)
[2018-02-09] MEDS: Heparin 5000 units/ml inj SUBQ SCH ×2 (08:33→21:31)
[2018-02-09] MEDS: Dakin's 0.125% Soln (Quarter Strength) 16oz TOPIC SCH (08:35)
[2018-02-09] MEDS ORDERED: dilTIAZem HCl 90mg tab ORAL SCH (09:45)
[2018-02-09] MEDS: dilTIAZem HCl 90mg tab ORAL SCH ×2 (11:17→17:14)
--- NOTE | 2018-02-09 11:28 | Infectious Diseases Prog Note ---
Assessment/Plan Assessment/Plan Assessment: Shock, SP Leukocytosis- elevated, fluctuating -HIDA scan: Patent cystic duct; no evidence of acute cholecystitis. Common bile duct is patent, but emptying into the duodenum is somewhat slow; small bowel activity not seen until after 60 minutes. Significance of this is uncertain. This can represent a normal anatomic variant, but could also represent partial biliary obstruction -Abd US: Gallbladder sludge, but no stones. Apparent mild gallbladder wall thickening, probably an artifact of under distention, but if real could indicate acute acalculous cholecystitis, among other possibilities. Consider hepatobiliary nuclear scan if there is high clinical suspicion. Mildly dilated common bile duct. Downstream obstruction not excludable. Consider MRCP for further evaluation, if clinically indicated. 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; prob colonizer), MSSA Acute renal failure- suspect 2ry to urinary outlet obstruction - ?toxic- started on HD; off HD now -UDS + opiates -Salicylic acid neg Rhabdomyolysis; improving Elevated LFTs (AST>ALT); shock liver; imporivng -Hep C +, hep B immune (Bs ab+, Bc ab +), Hep A not immune -HIV ab neg Hyperkalemia w/ EKG changes, SP Hypotension/bradycardia upon admission -2ry to above Metabolic encephalopathy; improving NSTEMI Plan: -Continue Meropenem #2 (abx d#12/27-) as trial for leukocytosis to cover PsA and MSSA in wound cx -if no improvement on WBC, will switch back to Ancef or Keflex for MSSA coverage -02/08 SP Zosyn #6 -02/07 SP IV Vancomycin #4 -f/u Hep C VL -Renal, cards f/u -f/u cx -Monitor CBC/CMP, temperatures; Trend WBC -Aspiration precautions -wound care as per hosp protocol -Will need Hep A immunization as outpatient -CXR am -Cdiff if diarrhea Thank you for this consultation. Will continue to follow along with you. Discussed with RN and family at bedside. Subjective Allergies: Coded Allergies: MILK (Verified Allergy, Unknown, 02/02/18) Uncoded Allergies: MILK PRODUCTS (Allergy, Unknown, 02/02/18) Subjective afebrile leukocytosis fluctuating Bcx NTD Objective Vital Signs Last 24 Hour Vital Signs Date Time Temp Pulse Resp B/P (MAP) Pulse Ox O2 Delivery O2 Flow Rate FiO2 02/09/18 09:00 Nasal Cannula 2.0 02/09/18 08:35 98.0 02/09/18 08:32 143 110/73 02/09/18 08:00 98.6 143 20 110/73 (85) 100 98.6 143 02/09/18 07:41 Nasal Cannula 2.0 28 02/09/18 07:41 126 20 Nasal Cannula 2.0 28 02/09/18 07:41 98 Nasal Cannula 2.0 28 02/09/18 04:00 134 02/09/18 04:00 98.0 139 20 123/87 (99) 100 98.0 139 02/09/18 00:00 132 02/09/18 00:00 97.7 131 20 120/80 (93) 98 97.7 131 02/08/18 21:48 133 119/80 02/08/18 21:00 Nasal Cannula 2.0 02/08/18 20:03 124 20 Nasal Cannula 2.0 28 02/08/18 20:03 98 Nasal Cannula 2.0 28 02/08/18 20:03 Nasal Cannula 2.0 28 02/08/18 20:00 98.2 133 20 119/80 (93) 100 98.2 133 02/08/18 20:00 135 02/08/18 17:29 97.3 02/08/18 16:00 97.5 80 20 120/78 (92) 100 97.5 80 02/08/18 16:00 95 02/08/18 13:31 97.3 02/08/18 12:21 71 119/79 02/08/18 12:00 71 02/08/18 12:00 97.0 71 20 119/79 (92) 100 97.0 71 Height (Feet): 6 Height (Inches): 3.00 Weight (Pounds): 220 Objective General Appearance: thin, Chronically Ill Eyes: bilateral eye PERRL ENT: dry mucus membranes Neck: normal inspection, supple, thyroid normal Respiratory: normal inspection, lungs clear, normal breath sounds, no accessory muscle use Cardiovascular #1: normal inspection, normal peripheral pulses, regular rate, rhythm Gastrointestinal: normal bowel sounds, non tender, soft Musculoskeletal: other - chronic wound right lower leg; good rom hips, nontender Neurologic: other - lethargic, moves to painful stimuli and spont, occasional word Psychiatric: other - cannot evaluate Laboratory Tests Test 02/09/18 05:30 White Blood Count 15.0 K/UL (4.8-10.8) H Red Blood Count 3.19 M/UL (4.70-6.10) L Hemoglobin 9.6 G/DL (14.2-18.0) L Hematocrit 29.1 % (42.0-52.0) L Mean Corpuscular Volume 91 FL (80-99) Mean Corpuscular Hemoglobin 30.1 PG (27.0-31.0) Mean Corpuscular Hemoglobin Concent 33.0 G/DL (32.0-36.0) Red Cell Distribution Width 13.0 % (11.6-14.8) Platelet Count 158 K/UL (150-450) Mean Platelet Volume 6.2 FL (6.5-10.1) L Neutrophils (%) (Auto) 77.5 % (45.0-75.0) H Lymphocytes (%) (Auto) 12.9 % (20.0-45.0) L Monocytes (%) (Auto) 8.8 % (1.0-10.0) Eosinophils (%) (Auto) 0.3 % (0.0-3.0) Basophils (%) (Auto) 0.6 % (0.0-2.0) Erythrocyte Sedimentation Rate 37 MM/HR (0-20) H Sodium Level 141 MMOL/L (136-145) Potassium Level 3.9 MMOL/L (3.5-5.1) Chloride Level 108 MMOL/L (98-107) H Carbon Dioxide Level 28 MMOL/L (21-32) Anion Gap 5 mmol/L (5-15) Blood Urea Nitrogen 27 mg/dL (7-18) H Creatinine 1.1 MG/DL (0.55-1.30) Estimat Glomerular Filtration Rate > 60 mL/min (>60) Glucose Level 90 MG/DL (74-106) Uric Acid 3.3 MG/DL (2.6-7.2) Calcium Level 7.8 MG/DL (8.5-10.1) L Phosphorus Level 1.8 MG/DL (2.5-4.9) L Magnesium Level 1.8 MG/DL (1.8-2.4) Total Bilirubin 0.6 MG/DL (0.2-1.0) Gamma Glutamyl Transpeptidase 186 U/L (5-85) H Aspartate Amino Transf (AST/SGOT) 279 U/L (15-37) H Alanine Aminotransferase (ALT/SGPT) 258 U/L (12-78) H Alkaline Phosphatase 63 U/L (46-116) Total Creatine Kinase 2920 U/L (26-308) H Troponin I 0.179 ng/mL (0.000-0.056) C-Reactive Protein, Quantitative < 0.4 mg/dL (0.00-0.90) Pro-B-Type Natriuretic Peptide 5530 pg/mL (0-125) H Total Protein 5.1 G/DL (6.4-8.2) L Albumin 1.9 G/DL (3.4-5.0) L Globulin 3.2 g/dL Albumin/Globulin Ratio 0.6 (1.0-2.7) L Current Medications Medications (Trade) Dose Ordered Sig/Erlin Route PRN Reason Start Time Stop Time Status Last Admin Dose Admin Acetaminophen (Tylenol) 650 mg Q4H PRN ORAL Mild Pain/Temp > 100.5 02/06/18 12:30 03/04/18 12:29 Acetaminophen/ Hydrocodone Bitart (Ada 5/325) 1 tab Q4H PRN ORAL Moderate Pain (Pain Scale 4-6) 02/06/18 13:30 02/10/18 13:23 02/09/18 06:42 Albuterol/ Ipratropium (Albuterol/ Ipratropium) 3 ml Q4H PRN HHN Shortness of Breath 02/06/18 12:30 02/10/18 08:29 Aspirin (Ecotrin) 81 mg DAILY ORAL 02/07/18 09:00 03/06/18 08:59 02/09/18 08:32 Chlorhexidine Gluconate (Yari-Hex 2%) 1 applic DAILY@1999 TOPIC 02/06/18 20:00 03/04/18 19:59 02/08/18 21:48 Dextrose (Dextrose 50%) 25 ml PRN IV Hypoglycemia 02/06/18 12:30 03/04/18 12:59 Dextrose (Dextrose 50%) 50 ml PRN IV hypoglycemia 02/06/18 12:30 03/04/18 12:59 Diltiazem HCl (Cardizem) 90 mg EVERY 6 HOURS ORAL 02/09/18 12:00 03/11/18 11:59 Heparin Sodium (Porcine) (Heparin 5000 units/ml) 5,000 units EVERY 12 HOURS SUBQ 02/06/18 21:00 03/04/18 20:59 02/09/18 08:33 Meropenem 1 gm/ Sodium Chloride 55 ml @ 110 mls/hr Q8H IVPB 02/08/18 17:00 02/13/18 16:59 02/09/18 08:36 Metoprolol Tartrate (Lopressor) 75 mg Q12HR ORAL 02/07/18 21:00 03/09/18 20:59 02/09/18 08:32 Midodrine (Pro-Amatine) 5 mg THREE TIMES A DAY ORAL 02/09/18 13:00 03/06/18 12:59 Ondansetron HCl (Zofran) 4 mg Q6H PRN IVP Nausea & Vomiting 02/06/18 12:30 03/04/18 12:29 Pantoprazole (Protonix) 40 mg EVERY 12 HOURS ORAL 02/06/18 21:00 03/07/18 20:59 02/09/18 08:32 Polyethylene Glycol (Miralax) 17 gm DAILYPRN PRN ORAL Constipation 02/06/18 12:30 03/04/18 12:29 Quetiapine Fumarate (SEROquel) 25 mg BID ORAL 02/08/18 09:00 03/10/18 08:59 02/09/18 08:32 Quetiapine Fumarate (SEROquel) 25 mg Q4H PRN ORAL Anxiety 02/06/18 13:45 03/05/18 09:44 Quetiapine Fumarate (SEROquel) 100 mg QHS ORAL 02/06/18 21:00 03/05/18 20:59 02/08/18 21:48 Sodium Hypochlorite (Dakin's Quarter Strength) 1 applic DAILY TOPIC 02/07/18 09:00 03/07/18 08:59 02/09/18 08:35 Temazepam (Restoril) 15 mg HSPRN PRN ORAL Insomnia 02/06/18 21:00 02/09/18 20:59 Alma Elkins M.D. Feb 09, 2018 11:28
--- NOTE | 2018-02-09 11:31 | Pulmonology Progress Note ---
Assessment/Plan Problems: (1) Metabolic encephalopathy (2) Acute kidney failure (3) NSTEMI (non-ST elevated myocardial infarction) (4) Bipolar 1 disorder (5) Sepsis (6) Shock liver (7) HTN (hypertension) (8) CVA (cerebral vascular accident) (9) CAD (coronary artery disease) Assessment/Plan wbc still high, will dc left neck cent Mg and Phos supplement Keep in teli because of A-flutter, heart rate still 130 triple lumen was removed yesterday check electrolytes anemia w/u check cultures pt/ot keep in teli LTAC evaluation Subjective ROS Limited/Unobtainable: No Constitutional: Reports: no symptoms HEENT: Repors: no symptoms Respiratory: Reports: no symptoms Allergies: Coded Allergies: MILK (Verified Allergy, Unknown, 02/02/18) Uncoded Allergies: MILK PRODUCTS (Allergy, Unknown, 02/02/18) Objective Last 24 Hour Vital Signs Date Time Temp Pulse Resp B/P (MAP) Pulse Ox O2 Delivery O2 Flow Rate FiO2 02/09/18 11:17 143 110/73 02/09/18 09:00 Nasal Cannula 2.0 02/09/18 08:35 98.0 02/09/18 08:32 143 110/73 02/09/18 08:00 98.6 143 20 110/73 (85) 100 98.6 143 02/09/18 07:41 Nasal Cannula 2.0 28 02/09/18 07:41 126 20 Nasal Cannula 2.0 28 02/09/18 07:41 98 Nasal Cannula 2.0 28 02/09/18 04:00 134 02/09/18 04:00 98.0 139 20 123/87 (99) 100 98.0 139 02/09/18 00:00 132 02/09/18 00:00 97.7 131 20 120/80 (93) 98 97.7 131 02/08/18 21:48 133 119/80 02/08/18 21:00 Nasal Cannula 2.0 02/08/18 20:03 124 20 Nasal Cannula 2.0 28 02/08/18 20:03 98 Nasal Cannula 2.0 28 02/08/18 20:03 Nasal Cannula 2.0 28 02/08/18 20:00 98.2 133 20 119/80 (93) 100 98.2 133 02/08/18 20:00 135 02/08/18 17:29 97.3 02/08/18 16:00 97.5 80 20 120/78 (92) 100 97.5 80 02/08/18 16:00 95 02/08/18 13:31 97.3 02/08/18 12:21 71 119/79 02/08/18 12:00 71 02/08/18 12:00 97.0 71 20 119/79 (92) 100 97.0 71 Intake and Output 02/08/18 02/09/18 19:00 07:00 Intake Total 720 ml Output Total 600 ml 250 ml Balance 120 ml -250 ml Intake Oral 720 ml Output Urine Total 600 ml 250 ml General Appearance: WD/WN HEENT: normocephalic, atraumatic Respiratory/Chest: chest wall non-tender, lungs clear Cardiovascular: normal peripheral pulses, normal rate Abdomen: normal bowel sounds, soft, non tender Genitourinary: normal external genitalia Extremities: no cyanosis Skin: no rash 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, normal mood/affect Laboratory Tests 02/09/18 05:30: White Blood Count 15.0H, Red Blood Count 3.19L, Hemoglobin 9.6L, Hematocrit 29.1L, Mean Corpuscular Volume 91, Mean Corpuscular Hemoglobin 30.1, Mean Corpuscular Hemoglobin Concent 33.0, Red Cell Distribution Width 13.0, Platelet Count 158, Mean Platelet Volume 6.2L, Neutrophils (%) (Auto) 77.5H, Lymphocytes (%) (Auto) 12.9L, Monocytes (%) (Auto) 8.8, Eosinophils (%) (Auto) 0.3, Basophils (%) (Auto) 0.6, Erythrocyte Sedimentation Rate 37H, Sodium Level 141, Potassium Level 3.9, Chloride Level 108H, Carbon Dioxide Level 28, Anion Gap 5, Blood Urea Nitrogen 27H, Creatinine 1.1, Estimat Glomerular Filtration Rate > 60 , Glucose Level 90, Uric Acid 3.3, Calcium Level 7.8L, Phosphorus Level 1.8L, Magnesium Level 1.8, Total Bilirubin 0.6, Gamma Glutamyl Transpeptidase 186H, Aspartate Amino Transf (AST/SGOT) 279H, Alanine Aminotransferase (ALT/SGPT) 258H , Alkaline Phosphatase 63, Total Creatine Kinase 2920H, Troponin I 0.179H, C- Reactive Protein, Quantitative < 0.4, Pro-B-Type Natriuretic Peptide 5530H, Total Protein 5.1L, Albumin 1.9L, Globulin 3.2, Albumin/Globulin Ratio 0.6L Current Medications Medications (Trade) Dose Ordered Sig/Erlin Route PRN Reason Start Time Stop Time Status Last Admin Dose Admin Acetaminophen (Tylenol) 650 mg Q4H PRN ORAL Mild Pain/Temp > 100.5 02/06/18 12:30 03/04/18 12:29 Acetaminophen/ Hydrocodone Bitart (Apison 5/325) 1 tab Q4H PRN ORAL Moderate Pain (Pain Scale 4-6) 02/06/18 13:30 02/10/18 13:23 02/09/18 06:42 Albuterol/ Ipratropium (Albuterol/ Ipratropium) 3 ml Q4H PRN HHN Shortness of Breath 02/06/18 12:30 02/10/18 08:29 Aspirin (Ecotrin) 81 mg DAILY ORAL 02/07/18 09:00 03/06/18 08:59 02/09/18 08:32 Chlorhexidine Gluconate (Yari-Hex 2%) 1 applic DAILY@2000 TOPIC 02/06/18 20:00 03/04/18 19:59 02/08/18 21:48 Dextrose (Dextrose 50%) 25 ml PRN IV Hypoglycemia 02/06/18 12:30 03/04/18 12:59 Dextrose (Dextrose 50%) 50 ml PRN IV hypoglycemia 02/06/18 12:30 03/04/18 12:59 Diltiazem HCl (Cardizem) 90 mg EVERY 6 HOURS ORAL 02/09/18 12:00 03/11/18 11:59 02/09/18 11:17 Heparin Sodium (Porcine) (Heparin 5000 units/ml) 5,000 units EVERY 12 HOURS SUBQ 02/06/18 21:00 03/04/18 20:59 02/09/18 08:33 Meropenem 1 gm/ Sodium Chloride 55 ml @ 110 mls/hr Q8H IVPB 02/08/18 17:00 02/13/18 16:59 02/09/18 08:36 Metoprolol Tartrate (Lopressor) 75 mg Q12HR ORAL 02/07/18 21:00 03/09/18 20:59 02/09/18 08:32 Midodrine (Pro-Amatine) 5 mg THREE TIMES A DAY ORAL 02/09/18 13:00 03/06/18 12:59 Ondansetron HCl (Zofran) 4 mg Q6H PRN IVP Nausea & Vomiting 02/06/18 12:30 03/04/18 12:29 Pantoprazole (Protonix) 40 mg EVERY 12 HOURS ORAL 02/06/18 21:00 03/07/18 20:59 02/09/18 08:32 Polyethylene Glycol (Miralax) 17 gm DAILYPRN PRN ORAL Constipation 02/06/18 12:30 03/04/18 12:29 Quetiapine Fumarate (SEROquel) 25 mg BID ORAL 02/08/18 09:00 03/10/18 08:59 02/09/18 08:32 Quetiapine Fumarate (SEROquel) 25 mg Q4H PRN ORAL Anxiety 02/06/18 13:45 03/05/18 09:44 Quetiapine Fumarate (SEROquel) 100 mg QHS ORAL 02/06/18 21:00 03/05/18 20:59 02/08/18 21:48 Sodium Hypochlorite (Dakin's Quarter Strength) 1 applic DAILY TOPIC 02/07/18 09:00 03/07/18 08:59 02/09/18 08:35 Temazepam (Restoril) 15 mg HSPRN PRN ORAL Insomnia 02/06/18 21:00 02/09/18 20:59 Minerva Montesinos MD Feb 09, 2018 11:31
[2018-02-09] MEDS ORDERED: Digoxin 0.5mg/2ml Inj IVP SCH (11:49)
[2018-02-09 12:00] VITALS: BP 108/75
--- NOTE | 2018-02-09 14:45 | Nephrology Progress Note ---
Assessment/Plan Problem List: (1) Acute kidney failure (2) Hyperkalemia (3) Rhabdomyolysis (4) Drug abuse (5) Metabolic encephalopathy (6) Shock liver Assessment Off pressors Acute Renal Failure- Rhabdo CPK [place] 2900 [place] [id number] Severe HyperKalemia Low BP urinary out let obstruction shock liver Plan Phos Mag and KCL supplements as needed monitor CPK Midodrine Stop Hydrocortisone add lopressor Vanco Once dialysed only on 02/02 IV fluid- discussed with RN Avoid nephrotoxics Subjective ROS Limited/Unobtainable: No Constitutional: Reports: malaise Objective Objective Last 24 Hour Vital Signs Date Time Temp Pulse Resp B/P (MAP) Pulse Ox O2 Delivery O2 Flow Rate FiO2 02/09/18 13:05 98.0 02/09/18 13:04 105 02/09/18 12:00 76 02/09/18 12:00 97.7 140 20 108/75 (86) 98 97.7 143 02/09/18 11:17 143 110/73 02/09/18 09:00 Nasal Cannula 2.0 02/09/18 08:35 98.0 02/09/18 08:32 143 110/73 02/09/18 08:00 98.6 143 20 110/73 (85) 100 98.6 143 02/09/18 08:00 143 02/09/18 07:41 Nasal Cannula 2.0 28 02/09/18 07:41 126 20 Nasal Cannula 2.0 28 02/09/18 07:41 98 Nasal Cannula 2.0 28 02/09/18 04:00 134 02/09/18 04:00 98.0 139 20 123/87 (99) 100 98.0 139 02/09/18 00:00 132 02/09/18 00:00 97.7 131 20 120/80 (93) 98 97.7 131 02/08/18 21:48 133 119/80 02/08/18 21:00 Nasal Cannula 2.0 02/08/18 20:03 124 20 Nasal Cannula 2.0 28 02/08/18 20:03 98 Nasal Cannula 2.0 28 02/08/18 20:03 Nasal Cannula 2.0 28 02/08/18 20:00 98.2 133 20 119/80 (93) 100 98.2 133 02/08/18 20:00 135 02/08/18 17:29 97.3 02/08/18 16:00 97.5 80 20 120/78 (92) 100 97.5 80 02/08/18 16:00 95 Intake and Output 02/08/18 02/09/18 19:00 07:00 Intake Total 720 ml Output Total 600 ml 250 ml Balance 120 ml -250 ml Intake Oral 720 ml Output Urine Total 600 ml 250 ml Laboratory Tests 02/09/18 05:30: White Blood Count 15.0H, Red Blood Count 3.19L, Hemoglobin 9.6L, Hematocrit 29.1L, Mean Corpuscular Volume 91, Mean Corpuscular Hemoglobin 30.1, Mean Corpuscular Hemoglobin Concent 33.0, Red Cell Distribution Width 13.0, Platelet Count 158, Mean Platelet Volume 6.2L, Neutrophils (%) (Auto) 77.5H, Lymphocytes (%) (Auto) 12.9L, Monocytes (%) (Auto) 8.8, Eosinophils (%) (Auto) 0.3, Basophils (%) (Auto) 0.6, Erythrocyte Sedimentation Rate 37H, Sodium Level 141, Potassium Level 3.9, Chloride Level 108H, Carbon Dioxide Level 28, Anion Gap 5, Blood Urea Nitrogen 27H, Creatinine 1.1, Estimat Glomerular Filtration Rate > 60 , Glucose Level 90, Uric Acid 3.3, Calcium Level 7.8L, Phosphorus Level 1.8L, Magnesium Level 1.8, Total Bilirubin 0.6, Gamma Glutamyl Transpeptidase 186H, Aspartate Amino Transf (AST/SGOT) 279H, Alanine Aminotransferase (ALT/SGPT) 258H , Alkaline Phosphatase 63, Total Creatine Kinase 2920H, Troponin I 0.179H, C- Reactive Protein, Quantitative < 0.4, Pro-B-Type Natriuretic Peptide 5530H, Total Protein 5.1L, Albumin 1.9L, Globulin 3.2, Albumin/Globulin Ratio 0.6L Height (Feet): 6 Height (Inches): 3.00 Weight (Pounds): 220 General Appearance: no apparent distress Cardiovascular: tachycardia Respiratory/Chest: decreased breath sounds Abdomen: distended Objective no other change Ruy Colvin MD Feb 09, 2018 14:45
[2018-02-09 16:00] VITALS: BP 123/68
[2018-02-09 20:00] VITALS: BP 132/72
--- NOTE | 2018-02-09 22:29 | Cardiology Progress Note ---
Assessment/Plan Status: stable Assessment/Plan Assessment: Right leg ulcer ALBERTO Rhabdomyolysis Hyperkalemia Bradycardia Encephalopathy Elevated troponin Plan: Echocardiogram - preserved systolic function, no wall motion abnormalities Trend troponin - coming down Monitor LFT, Abdominal US showed biliary sludge -> HIDA negative for cholecystitis Stress test when stable given elevated troponin and hx of CAD Aspirin Statin Sterids off Lines removed Leg ultrasound negative for stenosis Heart rate controlled: metoprolol, cardizem, digoxin - attempt to wean Continue abx Transfuse for anemia PRBC Endoscopy when stable Swallow evaluation - advance diet Physical therapy Dispo LTAC Subjective Cardiovascular: Reports: no symptoms Respiratory: Reports: no symptoms Gastrointestinal/Abdominal: Reports: no symptoms Genitourinary: Reports: no symptoms Subjective No acute events, Dialysis catheter removed Heart rate normalized Labs improving, troponin continues to come down, steroids off, WBC elevated, no sign of infection Tolerating PO Objective Last 24 Hour Vital Signs Date Time Temp Pulse Resp B/P (MAP) Pulse Ox O2 Delivery O2 Flow Rate FiO2 02/09/18 21:30 80 132/72 02/09/18 21:01 Nasal Cannula 2.0 28 02/09/18 21:01 111 20 Nasal Cannula 2.0 28 02/09/18 21:01 97 Nasal Cannula 2.0 28 02/09/18 20:00 99.1 80 18 132/72 (92) 99 99.1 02/09/18 20:00 () 02/09/18 17:14 82 123/68 02/09/18 16:00 82 02/09/18 16:00 98.8 79 20 123/68 (86) 96 98.8 143 02/09/18 13:05 98.0 02/09/18 13:04 105 02/09/18 12:00 76 02/09/18 12:00 97.7 140 20 108/75 (86) 98 97.7 143 02/09/18 11:17 143 110/73 02/09/18 09:00 Nasal Cannula 2.0 02/09/18 08:35 98.0 02/09/18 08:32 143 110/73 02/09/18 08:00 98.6 143 20 110/73 (85) 100 98.6 143 02/09/18 08:00 143 02/09/18 07:41 Nasal Cannula 2.0 28 02/09/18 07:41 126 20 Nasal Cannula 2.0 28 02/09/18 07:41 98 Nasal Cannula 2.0 28 02/09/18 04:00 134 02/09/18 04:00 98.0 139 20 123/87 (99) 100 98.0 139 02/09/18 00:00 132 02/09/18 00:00 97.7 131 20 120/80 (93) 98 97.7 131 General Appearance: no apparent distress, alert EENT: PERRL/EOMI, normal ENT inspection Neck: non-tender, normal alignment, supple, normal inspection Rhythm: NSR Cardiovascular: normal peripheral pulses, normal rate, regular rhythm Respiratory/Chest: chest wall non-tender, lungs clear Abdomen: normal bowel sounds, non tender, soft Extremities: normal range of motion, non-tender 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 Intake and Output 02/08/18 02/09/18 19:00 07:00 Intake Total 720 ml Output Total 600 ml 250 ml Balance 120 ml -250 ml Intake Oral 720 ml Output Urine Total 600 ml 250 ml Laboratory Tests Test 02/09/18 05:30 White Blood Count 15.0 K/UL (4.8-10.8) H Red Blood Count 3.19 M/UL (4.70-6.10) L Hemoglobin 9.6 G/DL (14.2-18.0) L Hematocrit 29.1 % (42.0-52.0) L Mean Corpuscular Volume 91 FL (80-99) Mean Corpuscular Hemoglobin 30.1 PG (27.0-31.0) Mean Corpuscular Hemoglobin Concent 33.0 G/DL (32.0-36.0) Red Cell Distribution Width 13.0 % (11.6-14.8) Platelet Count 158 K/UL (150-450) Mean Platelet Volume 6.2 FL (6.5-10.1) L Neutrophils (%) (Auto) 77.5 % (45.0-75.0) H Lymphocytes (%) (Auto) 12.9 % (20.0-45.0) L Monocytes (%) (Auto) 8.8 % (1.0-10.0) Eosinophils (%) (Auto) 0.3 % (0.0-3.0) Basophils (%) (Auto) 0.6 % (0.0-2.0) Erythrocyte Sedimentation Rate 37 MM/HR (0-20) H Sodium Level 141 MMOL/L (136-145) Potassium Level 3.9 MMOL/L (3.5-5.1) Chloride Level 108 MMOL/L (98-107) H Carbon Dioxide Level 28 MMOL/L (21-32) Anion Gap 5 mmol/L (5-15) Blood Urea Nitrogen 27 mg/dL (7-18) H Creatinine 1.1 MG/DL (0.55-1.30) Estimat Glomerular Filtration Rate > 60 mL/min (>60) Glucose Level 90 MG/DL (74-106) Uric Acid 3.3 MG/DL (2.6-7.2) Calcium Level 7.8 MG/DL (8.5-10.1) L Phosphorus Level 1.8 MG/DL (2.5-4.9) L Magnesium Level 1.8 MG/DL (1.8-2.4) Total Bilirubin 0.6 MG/DL (0.2-1.0) Gamma Glutamyl Transpeptidase 186 U/L (5-85) H Aspartate Amino Transf (AST/SGOT) 279 U/L (15-37) H Alanine Aminotransferase (ALT/SGPT) 258 U/L (12-78) H Alkaline Phosphatase 63 U/L (46-116) Total Creatine Kinase 2920 U/L (26-308) H Troponin I 0.179 ng/mL (0.000-0.056) C-Reactive Protein, Quantitative < 0.4 mg/dL (0.00-0.90) Pro-B-Type Natriuretic Peptide 5530 pg/mL (0-125) H Total Protein 5.1 G/DL (6.4-8.2) L Albumin 1.9 G/DL (3.4-5.0) L Globulin 3.2 g/dL Albumin/Globulin Ratio 0.6 (1.0-2.7) L Vinny Tobin M.D. Feb 09, 2018 22:29
[2018-02-10] VITALS: BP 127/81
[2018-02-10] MEDS: Meropenem 1 GM in NS 55 ML IVPB SCH ×2 (00:56→09:18)
[2018-02-10] MEDS: dilTIAZem HCl 90mg tab ORAL SCH ×3 (00:56→13:43)
[2018-02-10] MEDS: Norco 5mg/325mg tab ORAL PRN ×2 (03:46→09:02)
[2018-02-10 04:00] VITALS: BP 128/73
[2018-02-10 06:25] LABS: BASOPHILS % (AUTO) 1.1 % (0.0-2.0); EOSINOPHILS % (AUTO) 0.6 % (0.0-3.0); HEMATOCRIT 29.8 % (42.0-52.0); HEMOGLOBIN 9.8 G/DL (14.2-18.0); LYMPHOCYTES % (AUTO) 13.6 % (20.0-45.0); MEAN CORPUSCULAR VOLUME 91 FL (80-99); MONOCYTES % (AUTO) 8.6 % (1.0-10.0); NEUTROPHILS % (AUTO) 76.1 % (45.0-75.0); PLATELET COUNT 164 K/UL (150-450); RED BLOOD COUNT 3.26 M/UL (4.70-6.10); RED CELL DISTRIBUTION WIDTH 13.2 % (11.6-14.8); WHITE BLOOD COUNT 12.4 K/UL (4.8-10.8)
[2018-02-10 07:21] LABS: ALANINE AMINOTRANSFERASE 251 U/L (12-78); ALBUMIN/GLOBULIN RATIO 0.6 (1.0-2.7); ALKALINE PHOSPHATASE 67 U/L (46-116); ANION GAP 6 mmol/L (5-15); ASPARTATE AMINO TRANSFERASE 264 U/L (15-37); BILIRUBIN,TOTAL 0.7 MG/DL (0.2-1.0); BLOOD UREA NITROGEN 28 mg/dL (7-18); CARBON DIOXIDE 27 MMOL/L (21-32); CHLORIDE 108 MMOL/L (98-107); CREATININE 1.1 MG/DL (0.55-1.30); POTASSIUM 3.9 MMOL/L (3.5-5.1); SODIUM 141 MMOL/L (136-145)
[2018-02-10 08:00] VITALS: BP 110/68
[2018-02-10] MEDS ORDERED: Digoxin 0.5mg/2ml Inj IVP SCH (09:00)
[2018-02-10] MEDS ORDERED: Metoprolol 25mg tab ORAL SCH (09:00)
[2018-02-10] MEDS: Aspirin EC 81mg tab ORAL SCH (09:02)
[2018-02-10] MEDS: Midodrine 10mg tab ORAL SCH ×2 (09:02→13:44)
[2018-02-10] MEDS: Dakin's 0.125% Soln (Quarter Strength) 16oz TOPIC SCH (09:05)
[2018-02-10] MEDS: Heparin 5000 units/ml inj SUBQ SCH (09:07)
--- NOTE | 2018-02-10 10:11 | Diagnostic Imaging Report ---
Indication: Cough Technique: One view of the chest Comparison: 02/06/2018 Findings: There is atelectasis at the right lung base. There is a left-sided pleural effusion, new or increased since the prior study. Interim removal of dialysis catheter and central venous catheter Impression: Left pleural effusion, new or increased since previous exam of 02/06/2018 Right basilar atelectasis Other findings as noted
[2018-02-10] MEDS ORDERED: LOPRESSOR25 M1 ORAL (11:50)
[2018-02-10] MEDS ORDERED: PRO-AMATINE10 MG ORAL (11:50)
[2018-02-10] MEDS ORDERED: LANOXIN250 MCG ORAL (11:50)
--- NOTE | 2018-02-10 11:56 | Pulmonology Progress Note ---
Assessment/Plan Problems: (1) Metabolic encephalopathy (2) Acute kidney failure (3) NSTEMI (non-ST elevated myocardial infarction) (4) Bipolar 1 disorder (5) Sepsis (6) Shock liver (7) HTN (hypertension) (8) CVA (cerebral vascular accident) (9) CAD (coronary artery disease) Assessment/Plan Mg and Phos supplement heart rate controlled triple lumen was removed yesterday check electrolytes anemia w/u check cultures pt/ot dc to [facility] Subjective ROS Limited/Unobtainable: No Constitutional: Reports: no symptoms HEENT: Repors: no symptoms Respiratory: Reports: no symptoms Cardiovascular: Reports: no symptoms Allergies: Coded Allergies: MILK (Verified Allergy, Unknown, 02/02/18) Uncoded Allergies: MILK PRODUCTS (Allergy, Unknown, 02/02/18) Objective Last 24 Hour Vital Signs Date Time Temp Pulse Resp B/P (MAP) Pulse Ox O2 Delivery O2 Flow Rate FiO2 02/10/18 10:01 97.5 02/10/18 09:03 76 110/68 02/10/18 09:02 96 02/10/18 09:02 97.5 02/10/18 07:32 Nasal Cannula 2.0 28 02/10/18 07:32 96 18 Nasal Cannula 2.0 28 02/10/18 07:32 96 Nasal Cannula 2.0 28 02/10/18 05:49 68 128/73 02/10/18 04:00 97.5 70 18 128/73 (91) 98 97.5 02/10/18 04:00 68 02/10/18 00:56 71 127/81 02/10/18 00:00 73 02/10/18 00:00 98.1 71 20 127/81 (96) 99 98.1 02/09/18 21:30 80 132/72 02/09/18 21:01 Nasal Cannula 2.0 28 02/09/18 21:01 111 20 Nasal Cannula 2.0 28 02/09/18 21:01 97 Nasal Cannula 2.0 28 02/09/18 21:00 Room Air 02/09/18 20:00 79 02/09/18 20:00 99.1 80 18 132/72 (92) 99 99.1 02/09/18 20:00 () 02/09/18 17:14 82 123/68 02/09/18 16:00 82 02/09/18 16:00 98.8 79 20 123/68 (86) 96 98.8 143 02/09/18 13:05 98.0 02/09/18 13:04 105 02/09/18 12:00 76 02/09/18 12:00 97.7 140 20 108/75 (86) 98 97.7 143 Intake and Output 02/09/18 02/10/18 19:00 07:00 Intake Total 675 ml 455 ml Output Total 350 ml 750 ml Balance 325 ml -295 ml Intake Oral 620 ml 400 ml IV Total 55 ml 55 ml Output Urine Total 350 ml 750 ml # Voids 2 # Bowel Movements 1 General Appearance: WD/WN HEENT: normocephalic Respiratory/Chest: chest wall non-tender Cardiovascular: normal peripheral pulses Abdomen: normal bowel sounds Genitourinary: normal external genitalia 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 Laboratory Tests 02/10/18 06:05: White Blood Count 12.4H, Red Blood Count 3.26L, Hemoglobin 9.8L, Hematocrit 29.8L, Mean Corpuscular Volume 91, Mean Corpuscular Hemoglobin 30.1, Mean Corpuscular Hemoglobin Concent 33.0, Red Cell Distribution Width 13.2, Platelet Count 164, Mean Platelet Volume 5.3L, Neutrophils (%) (Auto) 76.1H, Lymphocytes (%) (Auto) 13.6L, Monocytes (%) (Auto) 8.6, Eosinophils (%) (Auto) 0.6, Basophils (%) (Auto) 1.1, Sodium Level 141, Potassium Level 3.9, Chloride Level 108H, Carbon Dioxide Level 27, Anion Gap 6, Blood Urea Nitrogen 28H, Creatinine 1.1, Estimat Glomerular Filtration Rate > 60, Glucose Level 109H, Calcium Level 8.0L, Total Bilirubin 0.7, Aspartate Amino Transf (AST/SGOT) 264H, Alanine Aminotransferase (ALT/SGPT) 251H, Alkaline Phosphatase 67, Total Protein 5.6L, Albumin 2.0L, Globulin 3.6, Albumin/Globulin Ratio 0.6L Current Medications Medications (Trade) Dose Ordered Sig/Erlin Route PRN Reason Start Time Stop Time Status Last Admin Dose Admin Acetaminophen (Tylenol) 650 mg Q4H PRN ORAL Mild Pain/Temp > 100.5 02/06/18 12:30 03/04/18 12:29 02/09/18 21:33 Acetaminophen/ Hydrocodone Bitart ([place] 5/325) 1 tab Q4H PRN ORAL Moderate Pain (Pain Scale 4-6) 02/06/18 13:30 02/10/18 13:23 02/10/18 09:02 Aspirin (Ecotrin) 81 mg DAILY ORAL 02/07/18 09:00 03/06/18 08:59 02/10/18 09:02 Dextrose (Dextrose 50%) 25 ml PRN IV Hypoglycemia 02/06/18 12:30 03/04/18 12:59 Dextrose (Dextrose 50%) 50 ml PRN IV hypoglycemia 02/06/18 12:30 03/04/18 12:59 Digoxin (Lanoxin) 0.25 mg DAILY ORAL 02/10/18 09:00 03/12/18 08:59 02/10/18 09:02 Diltiazem HCl (Cardizem) 90 mg EVERY 6 HOURS ORAL 02/09/18 12:00 03/11/18 11:59 02/10/18 05:49 Heparin Sodium (Porcine) (Heparin 5000 units/ml) 5,000 units EVERY 12 HOURS SUBQ 02/06/18 21:00 03/04/18 20:59 02/10/18 09:07 Meropenem 1 gm/ Sodium Chloride 55 ml @ 110 mls/hr Q8H IVPB 02/08/18 17:00 02/13/18 16:59 02/10/18 09:18 Metoprolol Tartrate (Lopressor) 100 mg Q12HR ORAL 02/10/18 09:00 03/09/18 20:59 02/10/18 09:03 Midodrine (Pro-Amatine) 5 mg THREE TIMES A DAY ORAL 02/09/18 13:00 03/06/18 12:59 02/10/18 09:02 Ondansetron HCl (Zofran) 4 mg Q6H PRN IVP Nausea & Vomiting 02/06/18 12:30 03/04/18 12:29 Pantoprazole (Protonix) 40 mg EVERY 12 HOURS ORAL 02/06/18 21:00 03/07/18 20:59 02/10/18 09:02 Polyethylene Glycol (Miralax) 17 gm DAILYPRN PRN ORAL Constipation 02/06/18 12:30 03/04/18 12:29 Quetiapine Fumarate (SEROquel) 25 mg BID ORAL 02/08/18 09:00 03/10/18 08:59 02/10/18 09:02 Quetiapine Fumarate (SEROquel) 25 mg Q4H PRN ORAL Anxiety 02/06/18 13:45 03/05/18 09:44 02/10/18 01:12 Quetiapine Fumarate (SEROquel) 100 mg QHS ORAL 02/06/18 21:00 03/05/18 20:59 02/09/18 21:31 Sodium Hypochlorite (Dakin's Quarter Strength) 1 applic DAILY TOPIC 02/07/18 09:00 03/07/18 08:59 02/10/18 09:05 Minerva Montesinos MD Feb 10, 2018 11:56
[2018-02-10 12:00] VITALS: BP 132/83
--- NOTE | 2018-02-10 12:03 | Nephrology Progress Note ---
Assessment/Plan Problem List: (1) Acute kidney failure (2) Hyperkalemia (3) Rhabdomyolysis (4) Drug abuse (5) Metabolic encephalopathy (6) Shock liver Assessment HR improved Off pressors Acute Renal Failure- Rhab[place] CPK [place] 2900 [place] [id number] Severe HyperKalemia Low BP urinary out let obstruction shock liver Plan Phos Mag and KCL supplements as needed monitor CPK Midodrine Stop Hydrocortisone add lopressor Vanco Once dialysed only on 02/02 IV fluid- discussed with RN Avoid nephrotoxics DC planning Subjective ROS Limited/Unobtainable: No Constitutional: Reports: malaise Objective Objective Last 24 Hour Vital Signs Date Time Temp Pulse Resp B/P (MAP) Pulse Ox O2 Delivery O2 Flow Rate FiO2 02/10/18 10:01 97.5 02/10/18 09:03 76 110/68 02/10/18 09:02 96 02/10/18 09:02 97.5 02/10/18 07:32 Nasal Cannula 2.0 28 02/10/18 07:32 96 18 Nasal Cannula 2.0 28 02/10/18 07:32 96 Nasal Cannula 2.0 28 02/10/18 05:49 68 128/73 02/10/18 04:00 97.5 70 18 128/73 (91) 98 97.5 02/10/18 04:00 68 02/10/18 00:56 71 127/81 02/10/18 00:00 73 02/10/18 00:00 98.1 71 20 127/81 (96) 99 98.1 02/09/18 21:30 80 132/72 02/09/18 21:01 Nasal Cannula 2.0 28 02/09/18 21:01 111 20 Nasal Cannula 2.0 28 02/09/18 21:01 97 Nasal Cannula 2.0 28 02/09/18 21:00 Room Air 02/09/18 20:00 79 02/09/18 20:00 99.1 80 18 132/72 (92) 99 99.1 02/09/18 20:00 () 02/09/18 17:14 82 123/68 02/09/18 16:00 82 02/09/18 16:00 98.8 79 20 123/68 (86) 96 98.8 143 02/09/18 13:05 98.0 02/09/18 13:04 105 Intake and Output 02/09/18 02/10/18 19:00 07:00 Intake Total 675 ml 455 ml Output Total 350 ml 750 ml Balance 325 ml -295 ml Intake Oral 620 ml 400 ml IV Total 55 ml 55 ml Output Urine Total 350 ml 750 ml # Voids 2 # Bowel Movements 1 Laboratory Tests 02/10/18 06:05: White Blood Count 12.4H, Red Blood Count 3.26L, Hemoglobin 9.8L, Hematocrit 29.8L, Mean Corpuscular Volume 91, Mean Corpuscular Hemoglobin 30.1, Mean Corpuscular Hemoglobin Concent 33.0, Red Cell Distribution Width 13.2, Platelet Count 164, Mean Platelet Volume 5.3L, Neutrophils (%) (Auto) 76.1H, Lymphocytes (%) (Auto) 13.6L, Monocytes (%) (Auto) 8.6, Eosinophils (%) (Auto) 0.6, Basophils (%) (Auto) 1.1, Sodium Level 141, Potassium Level 3.9, Chloride Level 108H, Carbon Dioxide Level 27, Anion Gap 6, Blood Urea Nitrogen 28H, Creatinine 1.1, Estimat Glomerular Filtration Rate > 60, Glucose Level 109H, Calcium Level 8.0L, Total Bilirubin 0.7, Aspartate Amino Transf (AST/SGOT) 264H, Alanine Aminotransferase (ALT/SGPT) 251H, Alkaline Phosphatase 67, Total Protein 5.6L, Albumin 2.0L, Globulin 3.6, Albumin/Globulin Ratio 0.6L Height (Feet): 6 Height (Inches): 3.00 Weight (Pounds): 225 General Appearance: no apparent distress Cardiovascular: normal rate, arrhythmia Respiratory/Chest: decreased breath sounds Abdomen: soft Objective no other change Ruy Colvin MD Feb 10, 2018 12:03
[2018-02-10] MEDS ORDERED: MEROPENEM1 GM IV (12:05)
--- NOTE | 2018-02-10 12:58 | Cardiology Progress Note ---
Assessment/Plan Status: stable Assessment/Plan Assessment: Right leg ulcer ALBERTO Rhabdomyolysis Hyperkalemia Bradycardia Encephalopathy Elevated troponin Plan: Echocardiogram - preserved systolic function, no wall motion abnormalities Trend troponin - coming down Monitor LFT, Abdominal US showed biliary sludge -> HIDA negative for cholecystitis Stress test when stable given elevated troponin and hx of CAD Aspirin Statin Sterids off Lines removed Leg ultrasound negative for stenosis Heart rate controlled: metoprolol, cardizem, digoxin - attempt to wean Continue abx Transfuse for anemia PRBC Endoscopy when stable Swallow evaluation - advance diet Physical therapy Dispo LTAC Subjective Cardiovascular: Reports: no symptoms Respiratory: Reports: no symptoms Gastrointestinal/Abdominal: Reports: no symptoms Genitourinary: Reports: no symptoms Subjective No acute events, Dialysis catheter removed Heart rate normalized Labs improving, troponin continues to come down, steroids off, WBC elevated, no sign of infection Tolerating PO Awaiting dispo Objective Last 24 Hour Vital Signs Date Time Temp Pulse Resp B/P (MAP) Pulse Ox O2 Delivery O2 Flow Rate FiO2 02/10/18 10:01 97.5 02/10/18 09:03 76 110/68 02/10/18 09:02 96 02/10/18 09:02 97.5 02/10/18 07:32 Nasal Cannula 2.0 28 02/10/18 07:32 96 18 Nasal Cannula 2.0 28 02/10/18 07:32 96 Nasal Cannula 2.0 28 02/10/18 05:49 68 128/73 02/10/18 04:00 97.5 70 18 128/73 (91) 98 97.5 02/10/18 04:00 68 02/10/18 00:56 71 127/81 02/10/18 00:00 73 02/10/18 00:00 98.1 71 20 127/81 (96) 99 98.1 02/09/18 21:30 80 132/72 02/09/18 21:01 Nasal Cannula 2.0 28 02/09/18 21:01 111 20 Nasal Cannula 2.0 28 02/09/18 21:01 97 Nasal Cannula 2.0 28 02/09/18 21:00 Room Air 02/09/18 20:00 79 02/09/18 20:00 99.1 80 18 132/72 (92) 99 99.1 02/09/18 20:00 () 02/09/18 17:14 82 123/68 02/09/18 16:00 82 02/09/18 16:00 98.8 79 20 123/68 (86) 96 98.8 143 02/09/18 13:05 98.0 02/09/18 13:04 105 General Appearance: no apparent distress, alert EENT: PERRL/EOMI, normal ENT inspection, TMs normal Neck: non-tender, normal alignment, supple, normal inspection, no JVD Rhythm: NSR Cardiovascular: normal peripheral pulses, normal rate, regular rhythm Respiratory/Chest: chest wall non-tender, lungs clear Abdomen: normal bowel sounds, non tender Extremities: normal range of motion, non-tender 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, no motor/sensory deficits Intake and Output 02/09/18 02/10/18 19:00 07:00 Intake Total 675 ml 455 ml Output Total 350 ml 750 ml Balance 325 ml -295 ml Intake Oral 620 ml 400 ml IV Total 55 ml 55 ml Output Urine Total 350 ml 750 ml # Voids 2 # Bowel Movements 1 Laboratory Tests Test 02/10/18 06:05 White Blood Count 12.4 K/UL (4.8-10.8) H Red Blood Count 3.26 M/UL (4.70-6.10) L Hemoglobin 9.8 G/DL (14.2-18.0) L Hematocrit 29.8 % (42.0-52.0) L Mean Corpuscular Volume 91 FL (80-99) Mean Corpuscular Hemoglobin 30.1 PG (27.0-31.0) Mean Corpuscular Hemoglobin Concent 33.0 G/DL (32.0-36.0) Red Cell Distribution Width 13.2 % (11.6-14.8) Platelet Count 164 K/UL (150-450) Mean Platelet Volume 5.3 FL (6.5-10.1) L Neutrophils (%) (Auto) 76.1 % (45.0-75.0) H Lymphocytes (%) (Auto) 13.6 % (20.0-45.0) L Monocytes (%) (Auto) 8.6 % (1.0-10.0) Eosinophils (%) (Auto) 0.6 % (0.0-3.0) Basophils (%) (Auto) 1.1 % (0.0-2.0) Sodium Level 141 MMOL/L (136-145) Potassium Level 3.9 MMOL/L (3.5-5.1) Chloride Level 108 MMOL/L (98-107) H Carbon Dioxide Level 27 MMOL/L (21-32) Anion Gap 6 mmol/L (5-15) Blood Urea Nitrogen 28 mg/dL (7-18) H Creatinine 1.1 MG/DL (0.55-1.30) Estimat Glomerular Filtration Rate > 60 mL/min (>60) Glucose Level 109 MG/DL (74-106) H Calcium Level 8.0 MG/DL (8.5-10.1) L Total Bilirubin 0.7 MG/DL (0.2-1.0) Aspartate Amino Transf (AST/SGOT) 264 U/L (15-37) H Alanine Aminotransferase (ALT/SGPT) 251 U/L (12-78) H Alkaline Phosphatase 67 U/L (46-116) Total Creatine Kinase Pending Total Protein 5.6 G/DL (6.4-8.2) L Albumin 2.0 G/DL (3.4-5.0) L Globulin 3.6 g/dL Albumin/Globulin Ratio 0.6 (1.0-2.7) L Vinny Tobin M.D. Feb 10, 2018 12:58
[2018-02-10 13:10] LABS: CREATINE KINASE 2810 U/L (26-308)
[2018-02-10 13:43] VITALS: BP 132/83
[2018-02-10] MEDS ORDERED: Norco 5mg/325mg tab ORAL SCH (13:53)
[2018-02-10] MEDS ORDERED: NS 275ml ONE (15:24)
[2018-02-10] MEDS ORDERED: Tubing IV Secondary IV ONE ×2 (15:24)
[2018-02-10] MEDS ORDERED: D5NS 1000ml IV ONE ×4 (15:24)
--- NOTE | 2018-02-10 21:00 | Progress Note ---
DATE: 02/10/2018 SUBJECTIVE: The patient is doing better, more alert, talkative, and engaged during the evaluation. No behavior issues. MENTAL STATUS EXAMINATION: The patient is alert and oriented times self, place, and situation. Mood is neutral. Affect is constricted. Congruent with mood. Thought process is concrete. Thought content, no suicidal or homicidal ideation. ASSESSMENT: Bipolar disorder. PLAN: 1. We will continue the Seroquel. 2. Encephalopathy has resolved. 3. Provide the patient with supportive therapy and reality orientation. Julissa Still M.D. DR: LEE JOB#: [id number] CC:
--- NOTE | 2018-02-12 11:16 | Discharge Summary ---
Discharge Summary Discharge Summary _ DATE OF ADMISSION: 02/02/2018 DATE OF DISCHARGE: 02/10/2018 REASON FOR ADMISSION: 67 years old male with past medical history of hypertension, coronary artery disease, cerebrovascular accident, right lower extremity chronic ulcer, substance-abuse, intermediate facility resident, was brought by paramedics with chief chief complaint of altered mental status. Patient appeared to be less responsive than usually. No reports of fever, trauma or vomiting from the facility. Patient was unable to provide history upon presentation. Vital signs revealed hypotension and bradycardia. Laboratory workup revealed evidence of renal failure with BUN 157, creatinine 7.9. Sodium 129. Potassium 8.7. Troponin was elevated 0.288. EKG revealed sinus rhythm, no acute ischemic changes . WBC 15.8, hemoglobin 12.8, hematocrit 39, CK above 10,000 AST 778, ALT 182. Chest x-ray revealed no acute cardiopulmonary pathology. Urinalysis without evidence of UTI, urine toxicology screen positive for opiates. Patient received treatment with IV calcium, bicarbonate as well as insulin and dextrose. Patient admitted to ICU with diagnoses of leukocytosis, acute renal failure , rhabdomyolysis, acute metabolic encephalopathy , elevated troponin , possible NSTEMI, coronary artery disease, CVA ,bipolar disease , hypotension possible shock, transaminitis. CONSULTANTS: incident response coordinator dr. Tobin ID specialist Dr. Parker hair boiler operator Dr. Colvin surgery Dr. Osuna psychiatrist [facility]: Patient admitted to ICU. Patient was on IV hydration. Patient started on pressors to keep mean arterial pressure above 65. Patient also started on midodrine. Patient undergone emergency hemodialysis on 02/02 after placement of temporary hemodialysis catheter by surgeon. Renal parameters and electrolytes were closely monitored. Nephrotoxins were avoided. Electrolytes corrected as needed. Midodrine dose was increased. Patient eventually was able to be weaned from pressors. Patient remained hemodynamically stable and was able to be transferred from ICU to telemetry. Mental status slowly cleared to baseline as the renal failure improved. Patient undergone swallow evaluation and started on diet as per speech therapist recommendations with strict aspiration /reflux precautions. Commissions Coordinator closely followed. Troponin was trended ; troponin trending down. Echocardiogram revealed preserved ejection fraction of 60-65% and right ventricular systolic pressure of 33. Antiplatelet therapy with aspirin was continued. Statin was on hold , given elevated LFT. Supplemental oxygen provided as needed to keep pulse oximetry above 92%. Pulmonary toilet provided as needed. Chest x-ray on revealed no acute cardiopulmonary pathology. Arterial duplex bilateral lower extremity revealed no evidence of stenosis but showed bilateral ischemia. Patient was already on antiplatelet therapy. Outpatient vascular surgery evaluation was recommended. Commissions Coordinator recommended stress test when stable, given elevated troponin and history of coronary artery disease. Heart rate was controlled with beta jeffrey and digoxin. LFT were trended , trending down. Hepatitis panel revealed hepatitis C infection with high viral load , no evidence of immunity for hepatitis A. HIV test was negative. Patient was recommended to be evaluated for treatment for hepatitis C as outpatient. Patient was also recommended by ID specialist to have hepatitis A vaccination . Abdominal ultrasound revealed biliary sludge. HIDA scan was negative. Hemoglobin and hematocrit were closely monitored with goal to keep hemoglobin above 7. Anemia workup was consistent with anemia of chronic disease and high ferritin level. Stool for occult blood was positive. CEA within normal range. No need for transfusion at this admission ,continue close monitoring at the intermediate facility. Endoscopy was recommended when patient stable . Patient can be brought as outpatient . Patient had right lower extremity ulcer with purulent drainage. Blood culture were negative. Urine culture was negative. Patient with persistent leukocytosis. Wound culture revealed Pseudomonas and Staphylococcus aureus. Patient was on antibiotics as per ID recommendation , and need to continue antibiotics upon discharge to complete the course. Right leg ulcer with purulent discharge, possibly superinfection as per ID specialist. Acute renal failure resolved , likely was secondary to urinary outlet obstruction . No need for further hemodialysis. Patient was recommended to avoid nephrotoxins in future and maintain adequate hydration. Electrolytes were closely monitored and corrected as needed. Patient was working with physical therapist . Bowel regimen instituted. Supportive care provided Pain management was addressed . Wound care provided as per wound care protocol. Prior to discharge, leukocytosis trending down -12.4 , patient afebrile. Hemoglobin 9.8 hematocrit 29.8. Acute renal failure resolved. BUN down to 28 and creatinine 1.1. CK trending down, prior to discharge 2810. LFT trending down. Troponin trending down. .Mental status back to baseline. Patient clinically improved and was stable for discharge to intermediate facility for continuation of care. FINAL DIAGNOSES: Sepsis Shock- resolved Acute metabolic encephalopathy due to acute renal failure and rhabdomyolysis, - resolved Elevated troponin Possible NSTEMI Acute renal failure ( likely due to urinary outlet obstruction), requiring started on hemodialysis, - resolved Hyperkalemia, -resolved Rhabdomyolysis Transaminitis, possibly shock liver Urinary outlet obstruction History of CVA Coronary artery disease History of hypertension Right leg ulcer with purulent drainage, probably superinfection Probable PVD Anemia of chronic disease Bipolar disorder DISCHARGE MEDICATIONS: See Medication Reconciliation list. DISCHARGE INSTRUCTIONS: Patient was discharged to the intermediate facility. Follow up with medical doctor at the facility. Linsey Boo NP Feb 12, 2018 11:16
== END 2018-02-10 15:25 | DRG 871 ==
LOC: EDBD 06:34 → EMR 06:53 → ICU 07:56 → EDBEDREQ 08:31 → 2E 02-06 12:50
PROC: 05HM33Z Insertion of Infusion Device into Right Internal Jugular Vein, Percutaneous Approach (ICD-10-PCS; principal; 2018-02-02)
PROC: 5A1D70Z Performance of Urinary Filtration, Intermittent, Less than 6 Hours Per Day (ICD-10-PCS; principal; 2018-02-02)
PROC: B543ZZA Ultrasonography of Right Jugular Veins, Guidance (ICD-10-PCS; principal; 2018-02-02)
PROC: B544ZZA Ultrasonography of Left Jugular Veins, Guidance (ICD-10-PCS; principal; 2018-02-02)
PROC: 05HN33Z Insertion of Infusion Device into Left Internal Jugular Vein, Percutaneous Approach (ICD-10-PCS; principal; 2018-02-02)
DX: A41.9 Sepsis, unspecified organism (principal); I21.4 Non-ST elevation (NSTEMI) myocardial infarction; G93.41 Metabolic encephalopathy; K72.00 Acute and subacute hepatic failure without coma; M62.82 Rhabdomyolysis; N17.9 Acute kidney failure, unspecified; F31.89 Other bipolar disorder; L97.219 Non-pressure chronic ulcer of right calf with unspecified severity; E87.2 Acidosis; N13.8 Other obstructive and reflux uropathy; R57.9 Shock, unspecified; I10 Essential (primary) hypertension; I25.10 Atherosclerotic heart disease of native coronary artery without angina pectoris; Z86.73 Personal history of transient ischemic attack (TIA), and cerebral infarction without residual deficits; I48.91 Unspecified atrial fibrillation; E87.5 Hyperkalemia; I95.9 Hypotension, unspecified; R00.1 Bradycardia, unspecified; D64.9 Anemia, unspecified
CPT/HCPCS: 36415; 36600; 71045; 76700; 78266; 80048; 80053; 80061; 80069; 80202; 80307; 80329; 81001; 81003; 82140; 82248; 82270; 82378; 82533; 82550; 82607; 82728; 82746; 82803; 82962; 82977; 83036; 83540; 83550; 83605; 83615; 83690; 83735; 83880; 84100; 84133; 84300; 84443; 84484; 84550; 85007; 85025; 85044; 85060; 85610; 85651; 85730; 86140; 86703; 86704; 86705; 86708; 86709; 86803; 86850; 86900; 86901; 86920; 87040; 87070; 87081; 87086; 87181; 87205; 87340; 87517; 87522; 87536; 89050; 93005; 93306; 93925; 94640; 94664; 94760

== ENCOUNTER 2018-04-06 17:45 | Inpatient (IN) | payer MEDICARE, MEDICAID ==
[~2018-04-06] VITALS: Ht 193 cm; Wt 92.1 kg
[~2018-04-06 17:45] MED LIST: ACETAMINOPHEN325 M1 ORAL; ALUM-MAG HYDRO360 ML PO; LANOXIN250 MCG ORAL; LISINOPRIL10 MG ORAL; LOPRESSOR25 M1 ORAL; MEROPENEM1 GM IV; METOPROLOL SUCC50 MG ORAL; MILK OF MA400 MG/51 ORAL; MONTELUKAST SOD10 MG ORAL; MULTIVITAMINS1 EAC8 ORAL; PRO-AMATINE10 MG ORAL; PROTONIX40 MG ORAL; SEROQUEL100 MG ORAL; VITAMIN C500 M1 ORAL; ZINC SULFATE220 M1 ORAL
[2018-04-06] MEDS ORDERED: ELIQUIS5 MG PO (17:54)
[2018-04-06] MEDS ORDERED: ASPIR 8181 MG ORAL (17:54)
[2018-04-06] MEDS ORDERED: BISACODYL5 MG RECTAL (17:54)
[2018-04-06] MEDS ORDERED: AMLODIPINE BESY10 MG ORAL (17:54)
[2018-04-06] MEDS ORDERED: ADVAIR HFA 115-12 GM INH (17:54)
[2018-04-06] MEDS ORDERED: DOCUSATE SODIU100 MG ORAL (17:54)
[2018-04-06] MEDS ORDERED: GABAPENTIN100 MG ORAL (17:54)
[2018-04-06] MEDS ORDERED: Vancomycin 1.5gm/D5W 250ml 250 ML IVPB ONE (18:15)
[2018-04-06] MEDS ORDERED: Morphine Sulfate 4mg/ml Inj (IV/IM USE ONLY) IVP ONE (18:15)
--- NOTE | 2018-04-06 18:57 | Emergency Room Report ---
History of Present Illness General Chief Complaint: General Complaint Source: Patient Present Illness HPI 68-year-old male presents ED for evaluation. Presenting with right lower leg pain has been there for some time now. Coming from custodial facility. 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 Per nursing staff patient has maggots. Pain is 10 out of 10, sharp, nonradiating. Denies fevers or chills. Denies chest pain or shortness of breath. No other aggravating relieving factors. Denies any other associated symptoms Allergies: Coded Allergies: MILK (Verified Allergy, Unknown, 02/02/18) Patient History Past Medical History: HTN, CAD, CVA/TIA Past Surgical History: none Pertinent Family History: none Social History: Denies: smoking, alcohol use, drug use Immunizations: UTD Reviewed Nursing Documentation: PMH: Agreed; PSxH: Agreed Nursing Documentation-PMH Past Medical History: No History, Except For Hx Cardiac Problems: Yes - NSTEM, Atheroclerotic Heart Dis, Angina Pectoris, Cerebral Infarction Hx Hypertension: Yes - Hyperlipidemia Hx Cancer: No Hx Gastrointestinal Problems: Yes - ACUTE KIDNEY FAILURE Hx Cerebrovascular Accident: Yes Review of Systems All Other Systems: negative except mentioned in HPI Physical Exam Vital Signs Date Time Temp Pulse Resp B/P (MAP) Pulse Ox O2 Delivery O2 Flow Rate FiO2 04/06/18 17:41 99.1 122 22 118/66 96 Room Air 99.1 Sp02 EP Interpretation: reviewed, normal General Appearance: no apparent distress, alert, GCS 15, non-toxic Head: normocephalic Eyes: bilateral eye normal inspection, bilateral eye PERRL ENT: normal ENT inspection, normal voice Neck: normal inspection Respiratory: chest non-tender, lungs clear, normal breath sounds, speaking full sentences Cardiovascular #1: tachycardia Gastrointestinal: normal inspection Rectal: deferred Genitourinary: no CVA tenderness Musculoskeletal: tender Neurologic: alert, oriented x3, responsive, motor strength/tone normal, sensory intact, speech normal Psychiatric: normal inspection Skin: other - large ulcers to bilateral LEs. maggots noted. no discharge Lymphatic: normal inspection Medical Decision Making Diagnostic Impression: Primary Impression: Infected ulcer of skin Qualified Codes: L98.499 - Non-pressure chronic ulcer of skin of other sites with unspecified severity; L08.9 - Local infection of the skin and subcutaneous tissue, unspecified Additional Impressions: Infestation, maggots Hyponatremia Hyperkalemia Renal insufficiency ER Course Hospital Course 68-year-old male presents ED with pain, maggots from lower extremities Differential diagnoses include: Cellulitis, abscess, rash. Clinical course Patient placed on stretcher. After initial history and physical I ordered labs , blood Cx, UA, IVFs, CXR, EKG labs reviewed - marked leukocytosis, Hb/Hct stable, Na 129, K 5.9, bun/cr elevated EKG - sinus tachycardia, no acute ischemic changes interpreted by ne CXR - no acute process antibiotics given. Given Lopressor in ED. Given pain medications. Dr. Osuna consulted and he will see patient Case discussed with Dr Montesinos and he agreed to accept the patient to his service for further care and support Diagnosis - infected ulcer of skin, maggot infestation, hyponatremia, hyperkalemia, renal insufficency Patient admitted to [facility] in serious condition Labs Test 04/06/18 18:21 04/06/18 19:00 Sodium Level 129 MMOL/L (136-145) Potassium Level 5.9 MMOL/L (3.5-5.1) Chloride Level 96 MMOL/L (98-107) Carbon Dioxide Level 25 MMOL/L (21-32) Anion Gap 8 mmol/L (5-15) Blood Urea Nitrogen 39 mg/dL (7-18) Creatinine 1.4 MG/DL (0.55-1.30) Estimat Glomerular Filtration Rate > 60 mL/min (>60) Glucose Level 92 MG/DL (74-106) Lactic Acid Level 1.80 mmol/L (0.4-2.0) Calcium Level 9.7 MG/DL (8.5-10.1) Total Bilirubin 0.8 MG/DL (0.2-1.0) Aspartate Amino Transf (AST/SGOT) 92 U/L (15-37) Alanine Aminotransferase (ALT/SGPT) 50 U/L (12-78) Alkaline Phosphatase 141 U/L (46-116) Pro-B-Type Natriuretic Peptide 1055 pg/mL (0-125) Total Protein 8.9 G/DL (6.4-8.2) Albumin 2.4 G/DL (3.4-5.0) Globulin 6.5 g/dL Albumin/Globulin Ratio 0.4 (1.0-2.7) White Blood Count 44.0 K/UL (4.8-10.8) Red Blood Count 4.46 M/UL (4.70-6.10) Hemoglobin 13.3 G/DL (14.2-18.0) Hematocrit 43.2 % (42.0-52.0) Mean Corpuscular Volume 97 FL (80-99) Mean Corpuscular Hemoglobin 29.7 PG (27.0-31.0) Mean Corpuscular Hemoglobin Concent 30.7 G/DL (32.0-36.0) Red Cell Distribution Width 12.4 % (11.6-14.8) Platelet Count 368 K/UL (150-450) Mean Platelet Volume 4.6 FL (6.5-10.1) Neutrophils (%) (Auto) % (45.0-75.0) Lymphocytes (%) (Auto) % (20.0-45.0) Monocytes (%) (Auto) % (1.0-10.0) Eosinophils (%) (Auto) % (0.0-3.0) Basophils (%) (Auto) % (0.0-2.0) Differential Total Cells Counted 100 Neutrophils % (Manual) 88 % (45-75) Lymphocytes % (Manual) 3 % (20-45) Monocytes % (Manual) 6 % (1-10) Eosinophils % (Manual) 0 % (0-3) Basophils % (Manual) 0 % (0-2) Band Neutrophils 3 % (0-8) Platelet Estimate Adequate Platelet Morphology Normal Macrocytosis 1+ EKG Diagnostic Results Rate: tachycardiac Rhythm: NSR ST Segments: no acute changes ASA given to the pt in ED: No Rhythm Strip Diag. Results EP Interpretation: yes Rhythm: NSR, no PVC's, no ectopy Chest X-Ray Diagnostic Results Chest X-Ray Diagnostic Results : Chest X-Ray Ordered: Yes # of Views/Limited/Complete: 1 View Indication: Chest Pain EP Interpretation: Yes Interpretation: no consolidation, no effusion, no pneumothorax Impression: No acute disease Electronically Signed by: Electronically signed by Johnny Weiner MD Last Vital Signs Date Time Temp Pulse Resp B/P (MAP) Pulse Ox O2 Delivery O2 Flow Rate FiO2 04/06/18 17:41 99.1 122 22 118/66 96 Room Air 99.1 Status: improved Disposition: ADMITTED INPATIENT Condition: Serious Referrals: NON PHYSICIAN (PCP) Johnny Weiner MD Apr 06, 2018 18:57
[2018-04-06 19:03] VITALS: BP 136/77
[2018-04-06 19:12] LABS: ALANINE AMINOTRANSFERASE 50 U/L (12-78); ALBUMIN 2.4 G/DL (3.4-5.0); ALBUMIN/GLOBULIN RATIO 0.4 (1.0-2.7); ALKALINE PHOSPHATASE 141 U/L (46-116); ANION GAP 8 mmol/L (5-15); ASPARTATE AMINO TRANSFERASE 92 U/L (15-37); BILIRUBIN,TOTAL 0.8 MG/DL (0.2-1.0); BLOOD UREA NITROGEN 39 mg/dL (7-18); CALCIUM 9.7 MG/DL (8.5-10.1); CARBON DIOXIDE 25 MMOL/L (21-32); CHLORIDE 96 MMOL/L (98-107); CREATININE 1.4 MG/DL (0.55-1.30); POTASSIUM 5.9 MMOL/L (3.5-5.1); SODIUM 129 MMOL/L (136-145)
[2018-04-06 19:14] LABS: HEMATOCRIT 43.2 % (42.0-52.0); HEMOGLOBIN 13.3 G/DL (14.2-18.0); MEAN CORPUSCULAR VOLUME 97 FL (80-99); PLATELET COUNT 368 K/UL (150-450); RED BLOOD COUNT 4.46 M/UL (4.70-6.10); RED CELL DISTRIBUTION WIDTH 12.4 % (11.6-14.8)
[2018-04-06] MEDS ORDERED: Metoprolol 5mg/5ml Inj IVP ONE ×2 (19:15→20:15)
[2018-04-06] MEDS ORDERED: AMBIEN5 MG ORAL (19:16)
[2018-04-06] MEDS ORDERED: METOPROLOL TART50 M1 ORAL (19:18)
[2018-04-06] MEDS ORDERED: ABILIFY5 MG ORAL (19:18)
[2018-04-06] MEDS ORDERED: MIDODRINE HCL10 MG ORAL (19:23)
[2018-04-06] MEDS ORDERED: Nitroglycerin Subl 0.4mg tab SL PRN (19:30)
[2018-04-06] MEDS ORDERED: Miralax 17gm pkt ORAL PRN (19:30)
[2018-04-06] MEDS ORDERED: Morphine Sulfate 2mg/ml Inj IVP PRN (19:30)
[2018-04-06] MEDS ORDERED: Sodium Polystyrene Sulfonate 15gm Powder ORAL ONE (19:30)
[2018-04-06] MEDS ORDERED: Insulin Human Regular 100units/ml 3ml IV ONE (19:30)
[2018-04-06] MEDS ORDERED: Albuterol/Ipratropium 3ml neb HHN PRN (19:30)
[2018-04-06] MEDS ORDERED: Acetaminophen 500mg (ES) tab ORAL ONE (19:30)
[2018-04-06] MEDS ORDERED: HYDROmorphone 1mg/ml Carpuject IVP ONE (20:15)
[2018-04-06] MEDS ORDERED: MIDODRINE HCL5 MG ORAL (20:15)
[2018-04-06] MEDS ORDERED: BISACODYL10 M1 RC (20:53)
[2018-04-06 21:25] VITALS: BP 137/93
[2018-04-06] MEDS ORDERED: NORCO 5-325 TA1 EACH ORAL (21:27)
[2018-04-06] MEDS ORDERED: NEPHROVITE1 TAB ORAL (21:27)
[2018-04-06] MEDS ORDERED: TYLENOL EXTRA500 MG ORAL (21:29)
[2018-04-06] MEDS ORDERED: Vancomycin 1750mg/D5W 300ml IVPB SCH ×2 (22:00)
[2018-04-06] MEDS ORDERED: Metoprolol 5mg/5ml Inj IVP PRN (22:15)
[2018-04-06] MEDS: Heparin 5000 units/ml inj SUBQ SCH (22:28)
[2018-04-06] MEDS: Cefepime HCl 2 GM in D5W 110 ML IV SCH (22:28)
[2018-04-06] MEDS: Vancomycin 1gm in D5W 275ml IVPB SCH (22:46)
[2018-04-06] MEDS: Morphine Sulfate 2mg/ml Inj IVP PRN (22:46)
[2018-04-07] VITALS (7 sets, daily range): BP systolic 96–137; BP diastolic 60–80
[2018-04-07] MEDS ORDERED: Vancomycin 1 GM in D5W 275 ML IV SCH (00:30)
[2018-04-07] MEDS: Morphine Sulfate 2mg/ml Inj IVP PRN ×4 (06:56→23:22)
[2018-04-07 07:53] LABS: HEMOGLOBIN 11.7 G/DL (14.2-18.0); MEAN CORPUSCULAR VOLUME 93 FL (80-99); PLATELET COUNT 313 K/UL (150-450); RED BLOOD COUNT 3.85 M/UL (4.70-6.10)
[2018-04-07 08:06] LABS: ALANINE AMINOTRANSFERASE 30 U/L (12-78); ALBUMIN 1.8 G/DL (3.4-5.0); ALBUMIN/GLOBULIN RATIO 0.3 (1.0-2.7); ALKALINE PHOSPHATASE 108 U/L (46-116); ANION GAP 4 mmol/L (5-15); ASPARTATE AMINO TRANSFERASE 60 U/L (15-37); BILIRUBIN,TOTAL 0.8 MG/DL (0.2-1.0); BLOOD UREA NITROGEN 25 mg/dL (7-18); CALCIUM 8.8 MG/DL (8.5-10.1); CARBON DIOXIDE 27 MMOL/L (21-32); CHLORIDE 100 MMOL/L (98-107); POTASSIUM 4.7 MMOL/L (3.5-5.1); SODIUM 131 MMOL/L (136-145)
[2018-04-07] MEDS ORDERED: Lisinopril 10mg tab ORAL SCH (09:00)
[2018-04-07] MEDS: Cefepime HCl 2 GM in D5W 110 ML IV SCH ×2 (09:04→20:24)
[2018-04-07] MEDS: Heparin 5000 units/ml inj SUBQ SCH ×2 (09:18→20:23)
--- NOTE | 2018-04-07 09:27 | Diagnostic Imaging Report ---
Indication: Shortness of breath Technique: One view of the chest Comparison: A 07/10/2017 Findings: The lungs and pleural spaces are clear. The heart size is upper limits normal. Aorta is tortuous and ectatic. Previously demonstrated right basilar atelectasis and left basilar pleural effusion are no longer evident Impression: No acute process
[2018-04-07] MEDS: Vancomycin 1gm in D5W 275ml IVPB SCH ×2 (10:21→23:49)
[2018-04-07] MEDS ORDERED: NS Irrig 1000ml ONE (10:21)
[2018-04-07] MEDS ORDERED: NS 275ml ONE (10:21)
[2018-04-07] MEDS ORDERED: Tubing IV Secondary IV ONE (10:21)
--- NOTE | 2018-04-07 11:05 | Consultation ---
History of Present Illness General Date patient seen: Apr 07, 2018 Chief Complaint: General Complaint Reason for Consultation: maggots in wounds Present Illness HPI 68 year old male known to me from prior hospital visit. had large foul smelling wounds prior. Chronic wounds. Upon discharge wounds were already improved and healing. Since has been well until a few days ago when began to have right leg pain. no n/v/f/c. when evaluated at outside nursing facility noted to have chronic ulcers and maggots again. Patient transferred to [facility] for care and management. surgery called to assist with care of wounds. patient seen , chart reviewed, patient examined. Allergies: Coded Allergies: MILK (Verified Allergy, Unknown, 02/02/18) Medication History Scheduled Apixaban (Eliquis), 5 MG PO BID, (Reported) Aripiprazole* (Abilify*), 5 MG ORAL BID, (Reported) Ascorbic Acid* (Vitamin C*), 500 MG ORAL DAILY, (Reported) Fluticasone/Salmeterol (Advair Hfa 115-21 Mcg Inhaler), 2 PUFFS INH EVERY 12 HOURS, (Reported) Magnesium Hydroxide* (Milk Of Magnesia*), 30 ML ORAL BEDTIME, (Reported) Metoprolol Tartrate* (Metoprolol Tartrate*), 50 MG ORAL BID, (Reported) Midodrine* (Proamatine*), 5 MG ORAL THREE TIMES A DAY, (Reported) Quetiapine Fumarate* (Seroquel*), 100 MG ORAL BEDTIME, (Reported) Vitamin B Cmplx/Vit C/Folic AC (Nephro-Mykel Tablet), 1 TAB ORAL DAILY, (Reported ) Zinc Sulfate (Zinc Sulfate*), 220 MG ORAL DAILY, (Reported) Scheduled PRN Acetaminophen* (Acetaminophen 325MG Tablet*), 650 MG ORAL Q4H PRN for Mild Pain (Pain Scale 1-3), (Reported) Acetaminophen* (Tylenol Extra Strength*), 1,000 MG ORAL Q4HR PRN for Mild Pain/ Temp > 100.5, (Reported) Bisacodyl (Bisacodyl), 10 MG RC for Constipation, (Reported) Docusate Sodium* (Docusate Sodium*), 100 MG ORAL for Constipation, (Reported) Hydrocodone Bit/Acetaminophen 5-325* (Lenox 5-325*), 1 TAB ORAL Q4H PRN for For Pain, (Reported) Zolpidem Tartrate* (Ambien*), 5 MG ORAL BEDTIME PRN for Insomnia, (Reported) Discontinued Medications Bisacodyl* (Dulcolax*), 10 MG RECTAL ONCE, (Reported) Discontinued Reason: Prescription changed Mag Hydrox/Al Hydrox/Simeth (Alum-Mag Hydroxide-Simeth Liq), 30 ML PO EVERY 6 HOURS, (Reported) Discontinued Reason: Therapy completed Meropenem (Meropenem), 1 GM IV EVERY 8 HOURS Discontinued Reason: Therapy completed Metoprolol Succinate* (Metoprolol Succinate*), 50 MG ORAL EVERY 12 HOURS, ( Reported) Discontinued Reason: Therapy completed Metoprolol Tartrate (Metoprolol Tartrate), 100 MG ORAL Q12HR Discontinued Reason: Therapy completed Midodrine* (Proamatine*), 10 MG ORAL THREE TIMES A DAY, (Reported) Discontinued Reason: Prescription changed Montelukast Sodium* (Montelukast Sodium*), 10 MG ORAL DAILY, (Reported) Discontinued Reason: Therapy completed Multivitamin With Minerals (Multivitamins With Minerals*), 1 TAB ORAL DAILY, ( Reported) Discontinued Reason: Therapy completed Pantoprazole* (Protonix*), 40 MG ORAL DAILY, (Reported) Discontinued Reason: Therapy completed Patient History History Provided By: Patient, Medical Record, PMD Healthcare decision maker Resuscitation status Full Code Advanced Directive on File No Past Medical/Surgical History Past Medical/Surgical History: (1) Maggot infestation (2) Drug abuse (3) CAD (coronary artery disease) (4) HTN (hypertension) (5) CVA (cerebral vascular accident) (6) Bipolar 1 disorder (7) Shock liver (8) Leg wound, right (9) Sepsis (10) Hyponatremia (11) Infestation, maggots (12) Hyperkalemia (13) Renal insufficiency (14) Infected ulcer of skin Review of Systems All Other Systems: negative except mentioned in HPI Physical Exam General Appearance: no apparent distress, alert Lines, tubes and drains: peripheral HEENT: atraumatic, mucous membranes moist Neck: normal inspection Respiratory/Chest: normal breath sounds, no respiratory distress, no accessory muscle use Cardiovascular/Chest: normal rate, regular rhythm Abdomen: soft, no organomegaly, no mass Extremities: other Skin Exam: other Neurologic: alert, responsive Last 24 Hour Vital Signs Date Time Temp Pulse Resp B/P (MAP) Pulse Ox O2 Delivery O2 Flow Rate FiO2 04/07/18 09:05 110 04/07/18 09:05 110 102/69 04/07/18 09:04 102/69 04/07/18 08:00 97.7 11 20 102/69 (80) 93 97.7 04/07/18 04:00 98.3 96 20 137/77 (97) 100 98.3 04/07/18 04:00 116 04/07/18 00:00 122 04/07/18 00:00 99.7 108 22 128/80 (96) 100 99.7 04/06/18 22:00 101 04/06/18 21:49 Room Air 04/06/18 21:25 101.1 129 24 137/93 (108) 100 101.1 04/06/18 21:20 102.0 120 20 155/78 100 Room Air 04/06/18 20:13 138 147/86 04/06/18 19:43 103.2 04/06/18 19:07 121 138/77 04/06/18 19:03 99.0 108 28 136/77 100 Room Air 99.0 04/06/18 17:41 99.1 122 22 118/66 96 Room Air 99.1 Intake and Output 04/06/18 04/07/18 18:59 06:59 Output Total 0 ml Balance 0 ml Output Urine Total 0 ml # Voids 2 # Bowel Movements 1 Laboratory Tests Test 04/06/18 18:21 04/06/18 19:00 04/07/18 07:25 Sodium Level 129 MMOL/L (136-145) L 131 MMOL/L (136-145) L Potassium Level 5.9 MMOL/L (3.5-5.1) H 4.7 MMOL/L (3.5-5.1) Chloride Level 96 MMOL/L (98-107) L 100 MMOL/L (98-107) Carbon Dioxide Level 25 MMOL/L (21-32) 27 MMOL/L (21-32) Anion Gap 8 mmol/L (5-15) 4 mmol/L (5-15) L Blood Urea Nitrogen 39 mg/dL (7-18) H 25 mg/dL (7-18) H Creatinine 1.4 MG/DL (0.55-1.30) H 1.0 MG/DL (0.55-1.30) Estimat Glomerular Filtration Rate > 60 mL/min (>60) > 60 mL/min (>60) Glucose Level 92 MG/DL (74-106) 85 MG/DL (74-106) Lactic Acid Level 1.80 mmol/L (0.4-2.0) Calcium Level 9.7 MG/DL (8.5-10.1) 8.8 MG/DL (8.5-10.1) Total Bilirubin 0.8 MG/DL (0.2-1.0) 0.8 MG/DL (0.2-1.0) Aspartate Amino Transf (AST/SGOT) 92 U/L (15-37) H 60 U/L (15-37) H Alanine Aminotransferase (ALT/SGPT) 50 U/L (12-78) 30 U/L (12-78) Alkaline Phosphatase 141 U/L (46-116) H 108 U/L (46-116) Pro-B-Type Natriuretic Peptide 1055 pg/mL (0-125) H Total Protein 8.9 G/DL (6.4-8.2) H 7.0 G/DL (6.4-8.2) Albumin 2.4 G/DL (3.4-5.0) L 1.8 G/DL (3.4-5.0) L Globulin 6.5 g/dL 5.2 g/dL Albumin/Globulin Ratio 0.4 (1.0-2.7) L 0.3 (1.0-2.7) L White Blood Count 44.0 K/UL (4.8-10.8) *H 32.0 K/UL (4.8-10.8) *H Red Blood Count 4.46 M/UL (4.70-6.10) L 3.85 M/UL (4.70-6.10) L Hemoglobin 13.3 G/DL (14.2-18.0) L 11.7 G/DL (14.2-18.0) L Hematocrit 43.2 % (42.0-52.0) 36.0 % (42.0-52.0) L Mean Corpuscular Volume 97 FL (80-99) 93 FL (80-99) Mean Corpuscular Hemoglobin 29.7 PG (27.0-31.0) 30.3 PG (27.0-31.0) Mean Corpuscular Hemoglobin Concent 30.7 G/DL (32.0-36.0) L 32.5 G/DL (32.0-36.0) Red Cell Distribution Width 12.4 % (11.6-14.8) 12.0 % (11.6-14.8) Platelet Count 368 K/UL (150-450) 313 K/UL (150-450) Mean Platelet Volume 4.6 FL (6.5-10.1) L 4.8 FL (6.5-10.1) L Neutrophils (%) (Auto) % (45.0-75.0) % (45.0-75.0) Lymphocytes (%) (Auto) % (20.0-45.0) % (20.0-45.0) Monocytes (%) (Auto) % (1.0-10.0) % (1.0-10.0) Eosinophils (%) (Auto) % (0.0-3.0) % (0.0-3.0) Basophils (%) (Auto) % (0.0-2.0) % (0.0-2.0) Differential Total Cells Counted 100 100 Neutrophils % (Manual) 88 % (45-75) H 89 % (45-75) H Lymphocytes % (Manual) 3 % (20-45) L 5 % (20-45) L Monocytes % (Manual) 6 % (1-10) 6 % (1-10) Eosinophils % (Manual) 0 % (0-3) 0 % (0-3) Basophils % (Manual) 0 % (0-2) 0 % (0-2) Band Neutrophils 3 % (0-8) 0 % (0-8) Platelet Estimate Adequate Adequate Platelet Morphology Normal Normal Macrocytosis 1+ Red Blood Cell Morphology Normal Microbiology Date/Time Source Procedure Growth Status 04/06/18 18:30 Wound Gram Stain - Final Resulted 18 18:30 Wound Wound Culture Pending Resulted Height (Feet): 6 Height (Inches): 4.00 Weight (Pounds): 203 Medications Current Medications Medications (Trade) Dose Ordered Sig/Erlin Route PRN Reason Start Time Stop Time Status Last Admin Dose Admin Acetaminophen (Tylenol) 650 mg Q4H PRN ORAL fever 04/06/18 19:30 05/06/18 19:29 04/07/18 09:37 Albuterol/ Ipratropium (Albuterol/ Ipratropium) 3 ml Q4H PRN HHN Shortness of Breath 04/06/18 19:30 04/11/18 19:29 Amlodipine Besylate (Norvasc) 10 mg DAILY ORAL 04/07/18 09:00 05/07/18 08:59 04/07/18 09:05 Cefepime HCl 2 gm/ Dextrose 110 ml @ 220 mls/hr EVERY 12 HOURS IV 04/06/18 21:00 04/13/18 20:59 04/07/18 09:04 Dextrose (Dextrose 50%) 25 ml STAT PRN IV Hypoglycemia 04/06/18 19:30 05/06/18 19:29 Dextrose (Dextrose 50%) 50 ml Q30M PRN IV Hypoglycemia 04/06/18 19:30 05/06/18 19:29 Digoxin (Lanoxin) 0.25 mg DAILY ORAL 04/07/18 09:00 05/07/18 08:59 04/07/18 09:05 Gabapentin (Neurontin) 100 mg THREE TIMES A DAY ORAL 04/07/18 09:00 05/07/18 08:59 04/07/18 09:04 Heparin Sodium (Porcine) (Heparin 5000 units/ml) 5,000 units EVERY 12 HOURS SUBQ 04/06/18 21:00 05/06/18 20:59 04/07/18 09:18 Lisinopril (Zestril) 10 mg DAILY ORAL 04/07/18 09:00 05/07/18 08:59 04/07/18 09:04 Metoprolol Tartrate (Lopressor) 10 mg Q1HR PRN IVP For High Blood Pressure 04/06/18 22:15 05/06/18 22:14 Morphine Sulfate (Morphine Sulfate) 4 mg Q4H PRN IVP For Pain 04/06/18 23:30 04/13/18 19:29 04/07/18 10:56 Nitroglycerin (Ntg) 0.4 mg Q5M PRN SL Prn Chest Pain 04/06/18 19:30 05/06/18 19:29 Ondansetron HCl (Zofran) 4 mg Q6H PRN IVP Nausea & Vomiting 04/06/18 19:30 05/06/18 19:29 Polyethylene Glycol (Miralax) 17 gm DAILYPRN PRN ORAL Constipation 04/06/18 19:30 05/06/18 19:29 Quetiapine Fumarate (SEROquel) 100 mg BEDTIME ORAL 04/06/18 21:00 05/06/18 20:59 04/06/18 22:27 Sodium Chloride 1,000 ml @ 75 mls/hr [id number] IV 04/06/18 22:15 05/06/18 22:14 04/07/18 10:22 Temazepam (Restoril) 15 mg HSPRN PRN ORAL Insomnia 04/06/18 19:30 04/13/18 19:29 Vancomycin HCl (Vanco rx to dose) 1 ea DAILY PRN MISC rx to dose 04/06/18 20:45 05/06/18 20:44 Vancomycin HCl 1 gm/Dextrose 275 ml @ 183.708 mls/hr Q12H IVPB 04/07/18 10:00 04/12/18 09:59 04/07/18 10:21 Assessment/Plan Problem List: (1) Maggot infestation Assessment & Plan: Foul odor noted from wounds on RLE . prior wounds with hx of skin grafts done on RLE. tender on palpation. multiple chronic ulcers noted. small maggots noted Full Thickness pressure injury to R Buttocks with yellow slough centrally with marginal erythema ,(+) induration .No odor noted. All preventive measure in place .Pt has surface support overlay on bed .Positioned with pillow in bed and both heels are off-loaded. Wounds present upon admission and will be cared for during hospital stay Tx Plan : Apply TheraHoney with Biatain Drsg R buttocks. Dakin's 0.25% candelaria wet to dry with ABD and wrap with Kerlix daily and prn to lower extremitites Reposition at least every 2hours . Off-load heels with pillow . ICD Codes: B87.9 - Myiasis, unspecified SNOMED: [id number] Status: stable Goyo Osuna Apr 07, 2018 11:05
[2018-04-07] MEDS: Dakin's 0.125% Soln (Quarter Strength) 16oz TOPIC SCH (12:00)
--- NOTE | 2018-04-07 12:04 | History and Physical ---
History of Present Illness General Date patient seen: Apr 07, 2018 Reason for Hospitalization: General Complaint Present Illness HPI 68-year-old male with hx of CVA, HTN presented to ED for evaluation of right lower leg pain. 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 . Pain is 10 out of 10, sharp, nonradiating. Denies fevers or chills. Denies chest pain or shortness of breath. No other aggravating relieving factors. He was found to be septic with ATN and high WBC. He is admitted for further management. Allergies: Coded Allergies: MILK (Verified Allergy, Unknown, 02/02/18) Medication History Scheduled Apixaban (Eliquis), 5 MG PO BID, (Reported) Aripiprazole* (Abilify*), 5 MG ORAL BID, (Reported) Ascorbic Acid* (Vitamin C*), 500 MG ORAL DAILY, (Reported) Fluticasone/Salmeterol (Advair Hfa 115-21 Mcg Inhaler), 2 PUFFS INH EVERY 12 HOURS, (Reported) Magnesium Hydroxide* (Milk Of Magnesia*), 30 ML ORAL BEDTIME, (Reported) Metoprolol Tartrate* (Metoprolol Tartrate*), 50 MG ORAL BID, (Reported) Midodrine* (Proamatine*), 5 MG ORAL THREE TIMES A DAY, (Reported) Quetiapine Fumarate* (Seroquel*), 100 MG ORAL BEDTIME, (Reported) Vitamin B Cmplx/Vit C/Folic AC (Nephro-Mykel Tablet), 1 TAB ORAL DAILY, (Reported ) Zinc Sulfate (Zinc Sulfate*), 220 MG ORAL DAILY, (Reported) Scheduled PRN Acetaminophen* (Acetaminophen 325MG Tablet*), 650 MG ORAL Q4H PRN for Mild Pain (Pain Scale 1-3), (Reported) Acetaminophen* (Tylenol Extra Strength*), 1,000 MG ORAL Q4HR PRN for Mild Pain/ Temp > 100.5, (Reported) Bisacodyl (Bisacodyl), 10 MG RC for Constipation, (Reported) Docusate Sodium* (Docusate Sodium*), 100 MG ORAL for Constipation, (Reported) Hydrocodone Bit/Acetaminophen 5-325* ([place] 5-325*), 1 TAB ORAL Q4H PRN for For Pain, (Reported) Zolpidem Tartrate* (Ambien*), 5 MG ORAL BEDTIME PRN for Insomnia, (Reported) Discontinued Medications Bisacodyl* (Dulcolax*), 10 MG RECTAL ONCE, (Reported) Discontinued Reason: Prescription changed Mag Hydrox/Al Hydrox/Simeth (Alum-Mag Hydroxide-Simeth Liq), 30 ML PO EVERY 6 HOURS, (Reported) Discontinued Reason: Therapy completed Meropenem (Meropenem), 1 GM IV EVERY 8 HOURS Discontinued Reason: Therapy completed Metoprolol Succinate* (Metoprolol Succinate*), 50 MG ORAL EVERY 12 HOURS, ( Reported) Discontinued Reason: Therapy completed Metoprolol Tartrate (Metoprolol Tartrate), 100 MG ORAL Q12HR Discontinued Reason: Therapy completed Midodrine* (Proamatine*), 10 MG ORAL THREE TIMES A DAY, (Reported) Discontinued Reason: Prescription changed Montelukast Sodium* (Montelukast Sodium*), 10 MG ORAL DAILY, (Reported) Discontinued Reason: Therapy completed Multivitamin With Minerals (Multivitamins With Minerals*), 1 TAB ORAL DAILY, ( Reported) Discontinued Reason: Therapy completed Pantoprazole* (Protonix*), 40 MG ORAL DAILY, (Reported) Discontinued Reason: Therapy completed Patient History Healthcare decision maker Resuscitation status Full Code Advanced Directive on File No Past Medical/Surgical History Past Medical/Surgical History: (1) Bipolar 1 disorder (2) CVA (cerebral vascular accident) (3) HTN (hypertension) (4) CAD (coronary artery disease) Review of Systems Constitutional: Reports: malaise Eye: Reports: no symptoms ENT: Reports: no symptoms Respiratory: Reports: no symptoms Cardiovascular: Reports: no symptoms Gastrointestinal: Reports: no symptoms Skin: Reports: lesions Physical Exam General Appearance: cachetic Lines, tubes and drains: peripheral HEENT: normocephalic, atraumatic Neck: non-tender, normal alignment Respiratory/Chest: chest wall non-tender, lungs clear Cardiovascular/Chest: normal peripheral pulses, normal rate Abdomen: normal bowel sounds, non tender Genitourinary/Rectal: normal genital exam Extremities: normal range of motion Skin Exam: normal pigmentation 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 Last 24 Hour Vital Signs Date Time Temp Pulse Resp B/P (MAP) Pulse Ox O2 Delivery O2 Flow Rate FiO2 04/07/18 09:05 110 04/07/18 09:05 110 102/69 04/07/18 09:04 102/69 04/07/18 08:00 97.7 11 20 102/69 (80) 93 97.7 04/07/18 04:00 98.3 96 20 137/77 (97) 100 98.3 04/07/18 04:00 116 04/07/18 00:00 122 04/07/18 00:00 99.7 108 22 128/80 (96) 100 99.7 04/06/18 22:00 101 04/06/18 21:49 Room Air 04/06/18 21:25 101.1 129 24 137/93 (108) 100 101.1 04/06/18 21:20 102.0 120 20 155/78 100 Room Air 04/06/18 20:13 138 147/86 04/06/18 19:43 103.2 04/06/18 19:07 121 138/77 04/06/18 19:03 99.0 108 28 136/77 100 Room Air 99.0 04/06/18 17:41 99.1 122 22 118/66 96 Room Air 99.1 Intake and Output 04/06/18 04/07/18 18:59 06:59 Output Total 0 ml Balance 0 ml Output Urine Total 0 ml # Voids 2 # Bowel Movements 1 Laboratory Tests Test 04/06/18 18:21 04/06/18 19:00 04/07/18 07:25 Sodium Level 129 MMOL/L (136-145) L 131 MMOL/L (136-145) L Potassium Level 5.9 MMOL/L (3.5-5.1) H 4.7 MMOL/L (3.5-5.1) Chloride Level 96 MMOL/L (98-107) L 100 MMOL/L (98-107) Carbon Dioxide Level 25 MMOL/L (21-32) 27 MMOL/L (21-32) Anion Gap 8 mmol/L (5-15) 4 mmol/L (5-15) L Blood Urea Nitrogen 39 mg/dL (7-18) H 25 mg/dL (7-18) H Creatinine 1.4 MG/DL (0.55-1.30) H 1.0 MG/DL (0.55-1.30) Estimat Glomerular Filtration Rate > 60 mL/min (>60) > 60 mL/min (>60) Glucose Level 92 MG/DL (74-106) 85 MG/DL (74-106) Lactic Acid Level 1.80 mmol/L (0.4-2.0) Calcium Level 9.7 MG/DL (8.5-10.1) 8.8 MG/DL (8.5-10.1) Total Bilirubin 0.8 MG/DL (0.2-1.0) 0.8 MG/DL (0.2-1.0) Aspartate Amino Transf (AST/SGOT) 92 U/L (15-37) H 60 U/L (15-37) H Alanine Aminotransferase (ALT/SGPT) 50 U/L (12-78) 30 U/L (12-78) Alkaline Phosphatase 141 U/L (46-116) H 108 U/L (46-116) Pro-B-Type Natriuretic Peptide 1055 pg/mL (0-125) H Total Protein 8.9 G/DL (6.4-8.2) H 7.0 G/DL (6.4-8.2) Albumin 2.4 G/DL (3.4-5.0) L 1.8 G/DL (3.4-5.0) L Globulin 6.5 g/dL 5.2 g/dL Albumin/Globulin Ratio 0.4 (1.0-2.7) L 0.3 (1.0-2.7) L White Blood Count 44.0 K/UL (4.8-10.8) *H 32.0 K/UL (4.8-10.8) *H Red Blood Count 4.46 M/UL (4.70-6.10) L 3.85 M/UL (4.70-6.10) L Hemoglobin 13.3 G/DL (14.2-18.0) L 11.7 G/DL (14.2-18.0) L Hematocrit 43.2 % (42.0-52.0) 36.0 % (42.0-52.0) L Mean Corpuscular Volume 97 FL (80-99) 93 FL (80-99) Mean Corpuscular Hemoglobin 29.7 PG (27.0-31.0) 30.3 PG (27.0-31.0) Mean Corpuscular Hemoglobin Concent 30.7 G/DL (32.0-36.0) L 32.5 G/DL (32.0-36.0) Red Cell Distribution Width 12.4 % (11.6-14.8) 12.0 % (11.6-14.8) Platelet Count 368 K/UL (150-450) 313 K/UL (150-450) Mean Platelet Volume 4.6 FL (6.5-10.1) L 4.8 FL (6.5-10.1) L Neutrophils (%) (Auto) % (45.0-75.0) % (45.0-75.0) Lymphocytes (%) (Auto) % (20.0-45.0) % (20.0-45.0) Monocytes (%) (Auto) % (1.0-10.0) % (1.0-10.0) Eosinophils (%) (Auto) % (0.0-3.0) % (0.0-3.0) Basophils (%) (Auto) % (0.0-2.0) % (0.0-2.0) Differential Total Cells Counted 100 100 Neutrophils % (Manual) 88 % (45-75) H 89 % (45-75) H Lymphocytes % (Manual) 3 % (20-45) L 5 % (20-45) L Monocytes % (Manual) 6 % (1-10) 6 % (1-10) Eosinophils % (Manual) 0 % (0-3) 0 % (0-3) Basophils % (Manual) 0 % (0-2) 0 % (0-2) Band Neutrophils 3 % (0-8) 0 % (0-8) Platelet Estimate Adequate Adequate Platelet Morphology Normal Normal Macrocytosis 1+ Red Blood Cell Morphology Normal Microbiology Date/Time Source Procedure Growth Status 04/06/18 18:30 Wound Gram Stain - Final Resulted 04/06/18 18:30 Wound Wound Culture Pending Resulted Height (Feet): 6 Height (Inches): 4.00 Weight (Pounds): 203 Medications Current Medications Medications (Trade) Dose Ordered Sig/Erlin Route PRN Reason Start Time Stop Time Status Last Admin Dose Admin Acetaminophen (Tylenol) 650 mg Q4H PRN ORAL fever 04/06/18 19:30 05/06/18 19:29 04/07/18 09:37 Albuterol/ Ipratropium (Albuterol/ Ipratropium) 3 ml Q4H PRN HHN Shortness of Breath 04/06/18 19:30 04/11/18 19:29 Amlodipine Besylate (Norvasc) 10 mg DAILY ORAL 04/07/18 09:00 05/07/18 08:59 04/07/18 09:05 Cefepime HCl 2 gm/ Dextrose 110 ml @ 220 mls/hr EVERY 12 HOURS IV 04/06/18 21:00 04/13/18 20:59 04/07/18 09:04 Dextrose (Dextrose 50%) 25 ml STAT PRN IV Hypoglycemia 04/06/18 19:30 05/06/18 19:29 Dextrose (Dextrose 50%) 50 ml Q30M PRN IV Hypoglycemia 04/06/18 19:30 05/06/18 19:29 Digoxin (Lanoxin) 0.25 mg DAILY ORAL 04/07/18 09:00 05/07/18 08:59 04/07/18 09:05 Gabapentin (Neurontin) 100 mg THREE TIMES A DAY ORAL 04/07/18 09:00 05/07/18 08:59 04/07/18 09:04 Heparin Sodium (Porcine) (Heparin 5000 units/ml) 5,000 units EVERY 12 HOURS SUBQ 04/06/18 21:00 05/06/18 20:59 04/07/18 09:18 Lisinopril (Zestril) 10 mg DAILY ORAL 04/07/18 09:00 05/07/18 08:59 04/07/18 09:04 Metoprolol Tartrate (Lopressor) 10 mg Q1HR PRN IVP For High Blood Pressure 04/06/18 22:15 05/06/18 22:14 Morphine Sulfate (Morphine Sulfate) 4 mg Q4H PRN IVP For Pain 04/06/18 23:30 04/13/18 19:29 04/07/18 10:56 Nitroglycerin (Ntg) 0.4 mg Q5M PRN SL Prn Chest Pain 04/06/18 19:30 05/06/18 19:29 Ondansetron HCl (Zofran) 4 mg Q6H PRN IVP Nausea & Vomiting 04/06/18 19:30 05/06/18 19:29 Polyethylene Glycol (Miralax) 17 gm DAILYPRN PRN ORAL Constipation 04/06/18 19:30 05/06/18 19:29 Quetiapine Fumarate (SEROquel) 100 mg BEDTIME ORAL 04/06/18 21:00 05/06/18 20:59 04/06/18 22:27 Sodium Hypochlorite (Dakin's Quarter Strength) 1 applic DAILY TOPIC 04/07/18 12:00 05/07/18 11:59 Sodium Chloride 1,000 ml @ 75 mls/hr [id number] IV 04/06/18 22:15 05/06/18 22:14 04/07/18 10:22 Temazepam (Restoril) 15 mg HSPRN PRN ORAL Insomnia 04/06/18 19:30 04/13/18 19:29 Vancomycin HCl (Vanco rx to dose) 1 ea DAILY PRN MISC rx to dose 04/06/18 20:45 05/06/18 20:44 Vancomycin HCl 1 gm/Dextrose 275 ml @ 183.708 mls/hr Q12H IVPB 04/07/18 10:00 04/12/18 09:59 04/07/18 10:21 Assessment/Plan Problem List: (1) Sepsis ICD Codes: A41.9 - Sepsis, unspecified organism SNOMED: 93655985 (2) CVA (cerebral vascular accident) ICD Codes: I63.9 - Cerebral infarction, unspecified SNOMED: 741497876 (3) HTN (hypertension) ICD Codes: I10 - Essential (primary) hypertension SNOMED: 16965530 (4) CAD (coronary artery disease) ICD Codes: I25.10 - Atherosclerotic heart disease of [place] coronary artery without angina pectoris SNOMED: 21503706 Assessment/Plan mcmillan cultures iv abx wound care monitor BF check electrolytes iv fluids Minerva Montesinos MD Apr 07, 2018 12:04
--- NOTE | 2018-04-07 12:16 | Consultation ---
History of Present Illness General Date patient seen: Apr 07, 2018 Time patient seen: 12:49 Chief Complaint: General Complaint Reason for Consultation: maggots in wounds Present Illness HPI 68 year old male with CAD HTN HLD CVA, LE ulcer presents with infection, ALBERTO, hyperkalemia. No chest pain ,no sob, no fever, poor compliance with medications. Patient complain of 10/10 LE pain and swelling. Allergies: Coded Allergies: MILK (Verified Allergy, Unknown, 02/02/18) Medication History Scheduled Apixaban (Eliquis), 5 MG PO BID, (Reported) Aripiprazole* (Abilify*), 5 MG ORAL BID, (Reported) Ascorbic Acid* (Vitamin C*), 500 MG ORAL DAILY, (Reported) Fluticasone/Salmeterol (Advair Hfa 115-21 Mcg Inhaler), 2 PUFFS INH EVERY 12 HOURS, (Reported) Magnesium Hydroxide* (Milk Of Magnesia*), 30 ML ORAL BEDTIME, (Reported) Metoprolol Tartrate* (Metoprolol Tartrate*), 50 MG ORAL BID, (Reported) Midodrine* (Proamatine*), 5 MG ORAL THREE TIMES A DAY, (Reported) Quetiapine Fumarate* (Seroquel*), 100 MG ORAL BEDTIME, (Reported) Vitamin B Cmplx/Vit C/Folic AC (Nephro-Mykel Tablet), 1 TAB ORAL DAILY, (Reported ) Zinc Sulfate (Zinc Sulfate*), 220 MG ORAL DAILY, (Reported) Scheduled PRN Acetaminophen* (Acetaminophen 325MG Tablet*), 650 MG ORAL Q4H PRN for Mild Pain (Pain Scale 1-3), (Reported) Acetaminophen* (Tylenol Extra Strength*), 1,000 MG ORAL Q4HR PRN for Mild Pain/ Temp > 100.5, (Reported) Bisacodyl (Bisacodyl), 10 MG RC for Constipation, (Reported) Docusate Sodium* (Docusate Sodium*), 100 MG ORAL for Constipation, (Reported) Hydrocodone Bit/Acetaminophen 5-325* ([place] 5-325*), 1 TAB ORAL Q4H PRN for For Pain, (Reported) Zolpidem Tartrate* (Ambien*), 5 MG ORAL BEDTIME PRN for Insomnia, (Reported) Discontinued Medications Bisacodyl* (Dulcolax*), 10 MG RECTAL ONCE, (Reported) Discontinued Reason: Prescription changed Mag Hydrox/Al Hydrox/Simeth (Alum-Mag Hydroxide-Simeth Liq), 30 ML PO EVERY 6 HOURS, (Reported) Discontinued Reason: Therapy completed Meropenem (Meropenem), 1 GM IV EVERY 8 HOURS Discontinued Reason: Therapy completed Metoprolol Succinate* (Metoprolol Succinate*), 50 MG ORAL EVERY 12 HOURS, ( Reported) Discontinued Reason: Therapy completed Metoprolol Tartrate (Metoprolol Tartrate), 100 MG ORAL Q12HR Discontinued Reason: Therapy completed Midodrine* (Proamatine*), 10 MG ORAL THREE TIMES A DAY, (Reported) Discontinued Reason: Prescription changed Montelukast Sodium* (Montelukast Sodium*), 10 MG ORAL DAILY, (Reported) Discontinued Reason: Therapy completed Multivitamin With Minerals (Multivitamins With Minerals*), 1 TAB ORAL DAILY, ( Reported) Discontinued Reason: Therapy completed Pantoprazole* (Protonix*), 40 MG ORAL DAILY, (Reported) Discontinued Reason: Therapy completed Patient History Healthcare decision maker Resuscitation status Full Code Advanced Directive on File No Review of Systems Constitutional: Reports: no symptoms Eye: Reports: no symptoms ENT: Reports: no symptoms Respiratory: Reports: no symptoms Cardiovascular: Reports: no symptoms Gastrointestinal: Reports: no symptoms Genitourinary: Reports: no symptoms Musculoskeletal: Reports: no symptoms Skin: Reports: change in color, lesions Psychiatric: Reports: no symptoms Neurological: Reports: no symptoms Endocrine: Reports: no symptoms Physical Exam General Appearance: no apparent distress, alert Lines, tubes and drains: peripheral HEENT: normocephalic, atraumatic, anicteric, mucous membranes moist, PERRL Neck: non-tender, normal alignment, supple Respiratory/Chest: chest wall non-tender, lungs clear, normal breath sounds Cardiovascular/Chest: normal peripheral pulses, normal rate, regular rhythm Abdomen: normal bowel sounds, non tender, no organomegaly Extremities: normal range of motion, inflammation, trace edema Skin Exam: normal pigmentation 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 Last 24 Hour Vital Signs Date Time Temp Pulse Resp B/P (MAP) Pulse Ox O2 Delivery O2 Flow Rate FiO2 04/07/18 09:05 110 04/07/18 09:05 110 102/69 04/07/18 09:04 102/69 10/19/18 08:00 97.7 11 20 102/69 (80) 93 97.7 04/07/18 04:00 98.3 96 20 137/77 (97) 100 98.3 04/07/18 04:00 116 04/07/18 00:00 122 04/07/18 00:00 99.7 108 22 128/80 (96) 100 99.7 04/06/18 22:00 101 04/06/18 21:49 Room Air 04/06/18 21:25 101.1 129 24 137/93 (108) 100 101.1 04/06/18 21:20 102.0 120 20 155/78 100 Room Air 04/06/18 20:13 138 147/86 04/06/18 19:43 103.2 04/06/18 19:07 121 138/77 04/06/18 19:03 99.0 108 28 136/77 100 Room Air 99.0 04/06/18 17:41 99.1 122 22 118/66 96 Room Air 99.1 Intake and Output 04/06/18 04/07/18 19:00 07:00 Output Total 0 ml Balance 0 ml Output Urine Total 0 ml # Voids 2 # Bowel Movements 1 Laboratory Tests Test 04/06/18 18:21 04/06/18 19:00 04/07/18 07:25 Sodium Level 129 MMOL/L (136-145) L 131 MMOL/L (136-145) L Potassium Level 5.9 MMOL/L (3.5-5.1) H 4.7 MMOL/L (3.5-5.1) Chloride Level 96 MMOL/L (98-107) L 100 MMOL/L (98-107) Carbon Dioxide Level 25 MMOL/L (21-32) 27 MMOL/L (21-32) Anion Gap 8 mmol/L (5-15) 4 mmol/L (5-15) L Blood Urea Nitrogen 39 mg/dL (7-18) H 25 mg/dL (7-18) H Creatinine 1.4 MG/DL (0.55-1.30) H 1.0 MG/DL (0.55-1.30) Estimat Glomerular Filtration Rate > 60 mL/min (>60) > 60 mL/min (>60) Glucose Level 92 MG/DL (74-106) 85 MG/DL (74-106) Lactic Acid Level 1.80 mmol/L (0.4-2.0) Calcium Level 9.7 MG/DL (8.5-10.1) 8.8 MG/DL (8.5-10.1) Total Bilirubin 0.8 MG/DL (0.2-1.0) 0.8 MG/DL (0.2-1.0) Aspartate Amino Transf (AST/SGOT) 92 U/L (15-37) H 60 U/L (15-37) H Alanine Aminotransferase (ALT/SGPT) 50 U/L (12-78) 30 U/L (12-78) Alkaline Phosphatase 141 U/L (46-116) H 108 U/L (46-116) Pro-B-Type Natriuretic Peptide 1055 pg/mL (0-125) H Total Protein 8.9 G/DL (6.4-8.2) H 7.0 G/DL (6.4-8.2) Albumin 2.4 G/DL (3.4-5.0) L 1.8 G/DL (3.4-5.0) L Globulin 6.5 g/dL 5.2 g/dL Albumin/Globulin Ratio 0.4 (1.0-2.7) L 0.3 (1.0-2.7) L White Blood Count 44.0 K/UL (4.8-10.8) *H 32.0 K/UL (4.8-10.8) *H Red Blood Count 4.46 M/UL (4.70-6.10) L 3.85 M/UL (4.70-6.10) L Hemoglobin 13.3 G/DL (14.2-18.0) L 11.7 G/DL (14.2-18.0) L Hematocrit 43.2 % (42.0-52.0) 36.0 % (42.0-52.0) L Mean Corpuscular Volume 97 FL (80-99) 93 FL (80-99) Mean Corpuscular Hemoglobin 29.7 PG (27.0-31.0) 30.3 PG (27.0-31.0) Mean Corpuscular Hemoglobin Concent 30.7 G/DL (32.0-36.0) L 32.5 G/DL (32.0-36.0) Red Cell Distribution Width 12.4 % (11.6-14.8) 12.0 % (11.6-14.8) Platelet Count 368 K/UL (150-450) 313 K/UL (150-450) Mean Platelet Volume 4.6 FL (6.5-10.1) L 4.8 FL (6.5-10.1) L Neutrophils (%) (Auto) % (45.0-75.0) % (45.0-75.0) Lymphocytes (%) (Auto) % (20.0-45.0) % (20.0-45.0) Monocytes (%) (Auto) % (1.0-10.0) % (1.0-10.0) Eosinophils (%) (Auto) % (0.0-3.0) % (0.0-3.0) Basophils (%) (Auto) % (0.0-2.0) % (0.0-2.0) Differential Total Cells Counted 100 100 Neutrophils % (Manual) 88 % (45-75) H 89 % (45-75) H Lymphocytes % (Manual) 3 % (20-45) L 5 % (20-45) L Monocytes % (Manual) 6 % (1-10) 6 % (1-10) Eosinophils % (Manual) 0 % (0-3) 0 % (0-3) Basophils % (Manual) 0 % (0-2) 0 % (0-2) Band Neutrophils 3 % (0-8) 0 % (0-8) Platelet Estimate Adequate Adequate Platelet Morphology Normal Normal Macrocytosis 1+ Red Blood Cell Morphology Normal Microbiology Date/Time Source Procedure Growth Status 04/06/18 18:30 Wound Gram Stain - Final Resulted 04/06/18 18:30 Wound Wound Culture Pending Resulted Height (Feet): 6 Height (Inches): 4.00 Weight (Pounds): 203 Medications Current Medications Medications (Trade) Dose Ordered Sig/Erlin Route PRN Reason Start Time Stop Time Status Last Admin Dose Admin Acetaminophen (Tylenol) 650 mg Q4H PRN ORAL fever 04/06/18 19:30 05/06/18 19:29 04/07/18 09:37 Albuterol/ Ipratropium (Albuterol/ Ipratropium) 3 ml Q4H PRN HHN Shortness of Breath 04/06/18 19:30 04/11/18 19:29 Amlodipine Besylate (Norvasc) 10 mg DAILY ORAL 04/07/18 09:00 05/07/18 08:59 04/07/18 09:05 Cefepime HCl 2 gm/ Dextrose 110 ml @ 220 mls/hr EVERY 12 HOURS IV 04/06/18 21:00 04/13/18 20:59 04/07/18 09:04 Dextrose (Dextrose 50%) 25 ml STAT PRN IV Hypoglycemia 04/06/18 19:30 05/06/18 19:29 Dextrose (Dextrose 50%) 50 ml Q30M PRN IV Hypoglycemia 04/06/18 19:30 05/06/18 19:29 Digoxin (Lanoxin) 0.25 mg DAILY ORAL 04/07/18 09:00 05/07/18 08:59 04/07/18 09:05 Gabapentin (Neurontin) 100 mg THREE TIMES A DAY ORAL 04/07/18 09:00 05/07/18 08:59 04/07/18 09:04 Heparin Sodium (Porcine) (Heparin 5000 units/ml) 5,000 units EVERY 12 HOURS SUBQ 04/06/18 21:00 05/06/18 20:59 04/07/18 09:18 Lisinopril (Zestril) 10 mg DAILY ORAL 04/07/18 09:00 05/07/18 08:59 04/07/18 09:04 Metoprolol Tartrate (Lopressor) 10 mg Q1HR PRN IVP For High Blood Pressure 04/06/18 22:15 05/06/18 22:14 Morphine Sulfate (Morphine Sulfate) 4 mg Q4H PRN IVP For Pain 04/06/18 23:30 04/13/18 19:29 04/07/18 10:56 Nitroglycerin (Ntg) 0.4 mg Q5M PRN SL Prn Chest Pain 04/06/18 19:30 05/06/18 19:29 Ondansetron HCl (Zofran) 4 mg Q6H PRN IVP Nausea & Vomiting 04/06/18 19:30 05/06/18 19:29 Polyethylene Glycol (Miralax) 17 gm DAILYPRN PRN ORAL Constipation 04/06/18 19:30 05/06/18 19:29 Quetiapine Fumarate (SEROquel) 100 mg BEDTIME ORAL 04/06/18 21:00 05/06/18 20:59 04/06/18 22:27 Sodium Hypochlorite (Dakin's Quarter Strength) 1 applic DAILY TOPIC 04/07/18 12:00 05/07/18 11:59 Sodium Chloride 1,000 ml @ 75 mls/hr [id number] IV 04/06/18 22:15 05/06/18 22:14 04/07/18 10:22 Temazepam (Restoril) 15 mg HSPRN PRN ORAL Insomnia 04/06/18 19:30 04/13/18 19:29 Vancomycin HCl (Vanco rx to dose) 1 ea DAILY PRN MISC rx to dose 04/06/18 20:45 05/06/18 20:44 Vancomycin HCl 1 gm/Dextrose 275 ml @ 183.708 mls/hr Q12H IVPB 04/07/18 10:00 04/12/18 09:59 04/07/18 10:21 Assessment/Plan Status: stable Assessment/Plan Assessment: (1) Maggot infestation (2) Drug abuse (3) CAD (coronary artery disease) (4) HTN (hypertension) (5) CVA (cerebral vascular accident) (6) Bipolar 1 disorder (7) Shock liver (8) Leg wound, right (9) Sepsis (10) Hyponatremia (11) Infestation, maggots (12) Hyperkalemia (13) Renal insufficiency (14) Infected ulcer of skin Plan: Continue aspirin Norvasc Digoxin Lisinopril - creatinine normal Continue to monitor electrolytes Telemetry IV Abx per ID Wound care CV stable Vinny Tobin MD Apr 07, 2018 12:16
--- NOTE | 2018-04-07 12:29 | Consultation ---
History of Present Illness General Date patient seen: Apr 07, 2018 Chief Complaint: General Complaint Reason for Consultation: maggots in wounds Present Illness HPI 68 y/o M with hx of HTN, bipolar dz, Afib, substance abuse, CVA/TIA, HLD, CAD, chronic ulcers b/l LE, SNF resident presents to ED On 04/06 with R lower leg pain and maggots on ulcers per nursing staff. Pain is described as 10/10, sharp , non radiating. Found to have ALBERTO and leukocytosis. Denies f/c, CP, SOB. Of note, patient admitted here back in January 2018 after presenting with shock, Acute renal failure requiring HD and superinfected chronic wounds. Allergies: Coded Allergies: MILK (Verified Allergy, Unknown, 02/02/18) Medication History Scheduled Apixaban (Eliquis), 5 MG PO BID, (Reported) Aripiprazole* (Abilify*), 5 MG ORAL BID, (Reported) Ascorbic Acid* (Vitamin C*), 500 MG ORAL DAILY, (Reported) Fluticasone/Salmeterol (Advair Hfa 115-21 Mcg Inhaler), 2 PUFFS INH EVERY 12 HOURS, (Reported) Magnesium Hydroxide* (Milk Of Magnesia*), 30 ML ORAL BEDTIME, (Reported) Metoprolol Tartrate* (Metoprolol Tartrate*), 50 MG ORAL BID, (Reported) Midodrine* (Proamatine*), 5 MG ORAL THREE TIMES A DAY, (Reported) Quetiapine Fumarate* (Seroquel*), 100 MG ORAL BEDTIME, (Reported) Vitamin B Cmplx/Vit C/Folic AC (Nephro-Mykel Tablet), 1 TAB ORAL DAILY, (Reported ) Zinc Sulfate (Zinc Sulfate*), 220 MG ORAL DAILY, (Reported) Scheduled PRN Acetaminophen* (Acetaminophen 325MG Tablet*), 650 MG ORAL Q4H PRN for Mild Pain (Pain Scale 1-3), (Reported) Acetaminophen* (Tylenol Extra Strength*), 1,000 MG ORAL Q4HR PRN for Mild Pain/ Temp > 100.5, (Reported) Bisacodyl (Bisacodyl), 10 MG RC for Constipation, (Reported) Docusate Sodium* (Docusate Sodium*), 100 MG ORAL for Constipation, (Reported) Hydrocodone Bit/Acetaminophen 5-325* ([place] 5-325*), 1 TAB ORAL Q4H PRN for For Pain, (Reported) Zolpidem Tartrate* (Ambien*), 5 MG ORAL BEDTIME PRN for Insomnia, (Reported) Discontinued Medications Bisacodyl* (Dulcolax*), 10 MG RECTAL ONCE, (Reported) Discontinued Reason: Prescription changed Mag Hydrox/Al Hydrox/Simeth (Alum-Mag Hydroxide-Simeth Liq), 30 ML PO EVERY 6 HOURS, (Reported) Discontinued Reason: Therapy completed Meropenem (Meropenem), 1 GM IV EVERY 8 HOURS Discontinued Reason: Therapy completed Metoprolol Succinate* (Metoprolol Succinate*), 50 MG ORAL EVERY 12 HOURS, ( Reported) Discontinued Reason: Therapy completed Metoprolol Tartrate (Metoprolol Tartrate), 100 MG ORAL Q12HR Discontinued Reason: Therapy completed Midodrine* (Proamatine*), 10 MG ORAL THREE TIMES A DAY, (Reported) Discontinued Reason: Prescription changed Montelukast Sodium* (Montelukast Sodium*), 10 MG ORAL DAILY, (Reported) Discontinued Reason: Therapy completed Multivitamin With Minerals (Multivitamins With Minerals*), 1 TAB ORAL DAILY, ( Reported) Discontinued Reason: Therapy completed Pantoprazole* (Protonix*), 40 MG ORAL DAILY, (Reported) Discontinued Reason: Therapy completed Patient History Healthcare decision maker Resuscitation status Full Code Advanced Directive on File No Patient History Narrative Pmhx: as above Shx: Denies: smoking, alcohol use, drug use Fhx: non contributory Review of Systems All Other Systems: negative except mentioned in HPI Physical Exam Physical Exam Narrative General Appearance: cachetic Lines, tubes and drains: peripheral HEENT: normocephalic, atraumatic Neck: non-tender, normal alignment Respiratory/Chest: chest wall non-tender, lungs clear Cardiovascular/Chest: normal peripheral pulses, normal rate Abdomen: normal bowel sounds, non tender Extremities: normal range of motion Skin Exam: Bl LE wrapped; per pictures, chronic ulcer with macerated borders and purulent discharge. was reported to have foul smelling order and maggots Last 24 Hour Vital Signs Date Time Temp Pulse Resp B/P (MAP) Pulse Ox O2 Delivery O2 Flow Rate FiO2 04/07/18 09:05 110 04/07/18 09:05 110 102/69 04/07/18 09:04 102/69 04/07/18 08:00 97.7 11 20 102/69 (80) 93 97.7 04/07/18 04:00 98.3 96 20 137/77 (97) 100 98.3 04/07/18 04:00 116 04/07/18 00:00 122 04/07/18 00:00 99.7 108 22 128/80 (96) 100 99.7 04/06/18 22:00 101 04/06/18 21:49 Room Air 04/06/18 21:25 101.1 129 24 137/93 (108) 100 101.1 04/06/18 21:20 102.0 120 20 155/78 100 Room Air 04/06/18 20:13 138 147/86 04/06/18 19:43 103.2 04/06/18 19:07 121 138/77 04/06/18 19:03 99.0 108 28 136/77 100 Room Air 99.0 04/06/18 17:41 99.1 122 22 118/66 96 Room Air 99.1 Intake and Output 04/06/18 04/07/18 18:59 06:59 Output Total 0 ml Balance 0 ml Output Urine Total 0 ml # Voids 2 # Bowel Movements 1 Laboratory Tests Test 04/06/18 18:21 04/06/18 19:00 04/07/18 07:25 Sodium Level 129 MMOL/L (136-145) L 131 MMOL/L (136-145) L Potassium Level 5.9 MMOL/L (3.5-5.1) H 4.7 MMOL/L (3.5-5.1) Chloride Level 96 MMOL/L (98-107) L 100 MMOL/L (98-107) Carbon Dioxide Level 25 MMOL/L (21-32) 27 MMOL/L (21-32) Anion Gap 8 mmol/L (5-15) 4 mmol/L (5-15) L Blood Urea Nitrogen 39 mg/dL (7-18) H 25 mg/dL (7-18) H Creatinine 1.4 MG/DL (0.55-1.30) H 1.0 MG/DL (0.55-1.30) Estimat Glomerular Filtration Rate > 60 mL/min (>60) > 60 mL/min (>60) Glucose Level 92 MG/DL (74-106) 85 MG/DL (74-106) Lactic Acid Level 1.80 mmol/L (0.4-2.0) Calcium Level 9.7 MG/DL (8.5-10.1) 8.8 MG/DL (8.5-10.1) Total Bilirubin 0.8 MG/DL (0.2-1.0) 0.8 MG/DL (0.2-1.0) Aspartate Amino Transf (AST/SGOT) 92 U/L (15-37) H 60 U/L (15-37) H Alanine Aminotransferase (ALT/SGPT) 50 U/L (12-78) 30 U/L (12-78) Alkaline Phosphatase 141 U/L (46-116) H 108 U/L (46-116) Pro-B-Type Natriuretic Peptide 1055 pg/mL (0-125) H Total Protein 8.9 G/DL (6.4-8.2) H 7.0 G/DL (6.4-8.2) Albumin 2.4 G/DL (3.4-5.0) L 1.8 G/DL (3.4-5.0) L Globulin 6.5 g/dL 5.2 g/dL Albumin/Globulin Ratio 0.4 (1.0-2.7) L 0.3 (1.0-2.7) L White Blood Count 44.0 K/UL (4.8-10.8) *H 32.0 K/UL (4.8-10.8) *H Red Blood Count 4.46 M/UL (4.70-6.10) L 3.85 M/UL (4.70-6.10) L Hemoglobin 13.3 G/DL (14.2-18.0) L 11.7 G/DL (14.2-18.0) L Hematocrit 43.2 % (42.0-52.0) 36.0 % (42.0-52.0) L Mean Corpuscular Volume 97 FL (80-99) 93 FL (80-99) Mean Corpuscular Hemoglobin 29.7 PG (27.0-31.0) 30.3 PG (27.0-31.0) Mean Corpuscular Hemoglobin Concent 30.7 G/DL (32.0-36.0) L 32.5 G/DL (32.0-36.0) Red Cell Distribution Width 12.4 % (11.6-14.8) 12.0 % (11.6-14.8) Platelet Count 368 K/UL (150-450) 313 K/UL (150-450) Mean Platelet Volume 4.6 FL (6.5-10.1) L 4.8 FL (6.5-10.1) L Neutrophils (%) (Auto) % (45.0-75.0) % (45.0-75.0) Lymphocytes (%) (Auto) % (20.0-45.0) % (20.0-45.0) Monocytes (%) (Auto) % (1.0-10.0) % (1.0-10.0) Eosinophils (%) (Auto) % (0.0-3.0) % (0.0-3.0) Basophils (%) (Auto) % (0.0-2.0) % (0.0-2.0) Differential Total Cells Counted 100 100 Neutrophils % (Manual) 88 % (45-75) H 89 % (45-75) H Lymphocytes % (Manual) 3 % (20-45) L 5 % (20-45) L Monocytes % (Manual) 6 % (1-10) 6 % (1-10) Eosinophils % (Manual) 0 % (0-3) 0 % (0-3) Basophils % (Manual) 0 % (0-2) 0 % (0-2) Band Neutrophils 3 % (0-8) 0 % (0-8) Platelet Estimate Adequate Adequate Platelet Morphology Normal Normal Macrocytosis 1+ Red Blood Cell Morphology Normal Microbiology Date/Time Source Procedure Growth Status 04/06/18 18:30 Wound Gram Stain - Final Resulted 04/06/18 18:30 Wound Wound Culture Pending Resulted Height (Feet): 6 Height (Inches): 4.00 Weight (Pounds): 203 Medications Current Medications Medications (Trade) Dose Ordered Sig/Erlin Route PRN Reason Start Time Stop Time Status Last Admin Dose Admin Acetaminophen (Tylenol) 650 mg Q4H PRN ORAL fever 04/06/18 19:30 05/06/18 19:29 04/07/18 09:37 Albuterol/ Ipratropium (Albuterol/ Ipratropium) 3 ml Q4H PRN HHN Shortness of Breath 04/06/18 19:30 04/11/18 19:29 Amlodipine Besylate (Norvasc) 10 mg DAILY ORAL 04/07/18 09:00 05/07/18 08:59 04/07/18 09:05 Cefepime HCl 2 gm/ Dextrose 110 ml @ 220 mls/hr EVERY 12 HOURS IV 04/06/18 21:00 04/13/18 20:59 04/07/18 09:04 Dextrose (Dextrose 50%) 25 ml STAT PRN IV Hypoglycemia 04/06/18 19:30 05/06/18 19:29 Dextrose (Dextrose 50%) 50 ml Q30M PRN IV Hypoglycemia 04/06/18 19:30 05/06/18 19:29 Digoxin (Lanoxin) 0.25 mg DAILY ORAL 04/07/18 09:00 05/07/18 08:59 04/07/18 09:05 Gabapentin (Neurontin) 100 mg THREE TIMES A DAY ORAL 04/07/18 09:00 05/07/18 08:59 04/07/18 09:04 Heparin Sodium (Porcine) (Heparin 5000 units/ml) 5,000 units EVERY 12 HOURS SUBQ 04/06/18 21:00 05/06/18 20:59 04/07/18 09:18 Lisinopril (Zestril) 10 mg DAILY ORAL 04/07/18 09:00 05/07/18 08:59 04/07/18 09:04 Metoprolol Tartrate (Lopressor) 10 mg Q1HR PRN IVP For High Blood Pressure 04/06/18 22:15 05/06/18 22:14 Morphine Sulfate (Morphine Sulfate) 4 mg Q4H PRN IVP For Pain 04/06/18 23:30 04/13/18 19:29 04/07/18 10:56 Nitroglycerin (Ntg) 0.4 mg Q5M PRN SL Prn Chest Pain 04/06/18 19:30 05/06/18 19:29 Ondansetron HCl (Zofran) 4 mg Q6H PRN IVP Nausea & Vomiting 04/06/18 19:30 05/06/18 19:29 Polyethylene Glycol (Miralax) 17 gm DAILYPRN PRN ORAL Constipation 04/06/18 19:30 05/06/18 19:29 Quetiapine Fumarate (SEROquel) 100 mg BEDTIME ORAL 04/06/18 21:00 05/06/18 20:59 04/06/18 22:27 Sodium Hypochlorite (Dakin's Quarter Strength) 1 applic DAILY TOPIC 04/07/18 12:00 05/07/18 11:59 Sodium Chloride 1,000 ml @ 75 mls/hr [id number] IV 04/06/18 22:15 05/06/18 22:14 04/07/18 10:22 Temazepam (Restoril) 15 mg HSPRN PRN ORAL Insomnia 04/06/18 19:30 04/13/18 19:29 Vancomycin HCl (Vanco rx to dose) 1 ea DAILY PRN MISC rx to dose 04/06/18 20:45 05/06/18 20:44 Vancomycin HCl 1 gm/Dextrose 275 ml @ 183.708 mls/hr Q12H IVPB 04/07/18 10:00 04/12/18 09:59 04/07/18 10:21 Assessment/Plan Assessment/Plan Abx: IV Vancomycin 04/06- Cefepime 04/06- Assessment: Sepsis- likely from skin source- r/o bacteremia Fever, improving Hyper leukocytosis, improving Chronic R leg ulcer w/ acute superinfection -01/2018 wound cx: MDR PsA ( S Imipenem; prob colonizer), MSSA Myasis Hx of SHock 01/2018 -rhabdomyolysis, shock liver Hx of Acute renal failure 01/2018 requiring temporary HD. HTN bipolar dz Afib substance abuse CVA/TIA HLD CAD -NSTEMI 01/2018 SNF resident Plan: -Continue empiric IV Vancomycin and Cefepime #2 pending cultures -02/12 SP Meropenem #5 -02/08 SP Zosyn #6 -02/07 SP IV Vancomycin #4 -f/u cx -Monitor CBC/CMP, temperatures -wound care per hospital protocol -Aspiration precautions -Sx f/u Thank you for this consultation. Will continue to follow along with you. Discussed with Alma Wiley M.D. Apr 07, 2018 12:29
--- NOTE | 2018-04-07 14:55 | Consultation ---
Consult Note Consult Note 68-year-old male presents ED for evaluation. Presenting with right lower leg pain has been there for some time now. [facility]. 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 Per nursing staff patient has maggots. Pain is 10 out of 10, sharp, nonradiating. Denies fevers or chills. Denies chest pain or shortness of breath. No other aggravating relieving factors. Denies any other associated symptoms Allergies: MILK (Verified Allergy, Unknown, 02/02/18) Past Medical History: HTN, CAD, CVA/TIA Past Medical History: No History, Except For Hx Cardiac Problems: Yes - NSTEM, Atheroclerotic Heart Dis, Angina Pectoris, Cerebral Infarction Hx Hypertension: Yes - Hyperlipidemia Hx Gastrointestinal Problems: Yes - ACUTE KIDNEY FAILURE Hx Cerebrovascular Accident: Yes Assessment/Plan HyperKalemia- HypoNatremia Sepsis / Leukocytosis Bipolar CAD HTN CVA Severe HypoAlbuminemia Mild Anemia h/o Rhabdo h/o Drug abuse h/o GB disease large ulcers to bilateral LEs. maggots noted. no discharge Urine Studies Urine tox screen Stop AntiHypertensives as BP is low Antibiotics 2D echo saline per orders Ruy Colvin MD Apr 07, 2018 14:55
[2018-04-07] MEDS ORDERED: HydrALAZINE 10mg Tab ORAL PRN (15:00)
[2018-04-07 15:27] LABS: APPEARANCE,URINE CLEAR; BILIRUBIN, URINE NEGATIVE (NEGATIVE); GLUCOSE, URINE (UA) NEGATIVE (NEGATIVE); KETONES,URINE NEGATIVE (NEGATIVE); LEUKOCYTE ESTERASE ,URINE NEGATIVE (NEGATIVE); NITRITE,URINE NEGATIVE (NEGATIVE); PH,URINE 6.5 (4.5-8.0); PROTEIN,URINE 1+ (NEGATIVE); UROBILINOGEN,URINE NORMAL MG/DL (0.0-1.0)
[2018-04-07 15:31] LABS: COLOR,URINE YELLOW
[2018-04-07] MEDS: metroNIDAZOLE 500mg tab ORAL SCH (15:48)
--- NOTE | 2018-04-07 21:46 | Consultation ---
History of Present Illness General Date patient seen: Apr 07, 2018 Chief Complaint: General Complaint Reason for Consultation: maggots in wounds Present Illness HPI 68-year-old male presents ED for evaluation. Presenting with right lower leg pain the pt has hx of schizophrenia. the pt has diff sleeping and has cognitive impairment. the pt didn't know the month.the pt has waxing and waning of consciousness Allergies: Coded Allergies: MILK (Verified Allergy, Unknown, 02/02/18) Medication History Scheduled Apixaban (Eliquis), 5 MG PO BID, (Reported) Aripiprazole* (Abilify*), 5 MG ORAL BID, (Reported) Ascorbic Acid* (Vitamin C*), 500 MG ORAL DAILY, (Reported) Fluticasone/Salmeterol (Advair Hfa 115-21 Mcg Inhaler), 2 PUFFS INH EVERY 12 HOURS, (Reported) Magnesium Hydroxide* (Milk Of Magnesia*), 30 ML ORAL BEDTIME, (Reported) Metoprolol Tartrate* (Metoprolol Tartrate*), 50 MG ORAL BID, (Reported) Midodrine* (Proamatine*), 5 MG ORAL THREE TIMES A DAY, (Reported) Quetiapine Fumarate* (Seroquel*), 100 MG ORAL BEDTIME, (Reported) Vitamin B Cmplx/Vit C/Folic AC (Nephro-Mykel Tablet), 1 TAB ORAL DAILY, (Reported ) Zinc Sulfate (Zinc Sulfate*), 220 MG ORAL DAILY, (Reported) Scheduled PRN Acetaminophen* (Acetaminophen 325MG Tablet*), 650 MG ORAL Q4H PRN for Mild Pain (Pain Scale 1-3), (Reported) Acetaminophen* (Tylenol Extra Strength*), 1,000 MG ORAL Q4HR PRN for Mild Pain/ Temp > 100.5, (Reported) Bisacodyl (Bisacodyl), 10 MG RC for Constipation, (Reported) Docusate Sodium* (Docusate Sodium*), 100 MG ORAL for Constipation, (Reported) Hydrocodone Bit/Acetaminophen 5-325* ([place] 5-325*), 1 TAB ORAL Q4H PRN for For Pain, (Reported) Zolpidem Tartrate* (Ambien*), 5 MG ORAL BEDTIME PRN for Insomnia, (Reported) Discontinued Medications Bisacodyl* (Dulcolax*), 10 MG RECTAL ONCE, (Reported) Discontinued Reason: Prescription changed Mag Hydrox/Al Hydrox/Simeth (Alum-Mag Hydroxide-Simeth Liq), 30 ML PO EVERY 6 HOURS, (Reported) Discontinued Reason: Therapy completed Meropenem (Meropenem), 1 GM IV EVERY 8 HOURS Discontinued Reason: Therapy completed Metoprolol Succinate* (Metoprolol Succinate*), 50 MG ORAL EVERY 12 HOURS, ( Reported) Discontinued Reason: Therapy completed Metoprolol Tartrate (Metoprolol Tartrate), 100 MG ORAL Q12HR Discontinued Reason: Therapy completed Midodrine* (Proamatine*), 10 MG ORAL THREE TIMES A DAY, (Reported) Discontinued Reason: Prescription changed Montelukast Sodium* (Montelukast Sodium*), 10 MG ORAL DAILY, (Reported) Discontinued Reason: Therapy completed Multivitamin With Minerals (Multivitamins With Minerals*), 1 TAB ORAL DAILY, ( Reported) Discontinued Reason: Therapy completed Pantoprazole* (Protonix*), 40 MG ORAL DAILY, (Reported) Discontinued Reason: Therapy completed Patient History Limited by: medical condition History Provided By: Patient, Medical Record, PMD Healthcare decision maker Resuscitation status Full Code Advanced Directive on File No Past Medical/Surgical History Past Medical/Surgical History: (1) Hyponatremia (2) Hyperkalemia (3) Renal insufficiency (4) Infected ulcer of skin (5) Drug abuse (6) CAD (coronary artery disease) (7) Maggot infestation (8) Sepsis (9) HTN (hypertension) (10) CVA (cerebral vascular accident) (11) Leg wound, right (12) Bipolar 1 disorder Review of Systems Psychiatric: Reports: prior hx, anxiety, depressed feelings, emotional problems , hallucinations Physical Exam General Appearance: no apparent distress, alert, agitated Neurologic: depressed affect Last 24 Hour Vital Signs Date Time Temp Pulse Resp B/P (MAP) Pulse Ox O2 Delivery O2 Flow Rate FiO2 04/07/18 20:16 91 20 Room Air 21 04/07/18 16:00 97.9 65 20 114/65 (81) 94 97.9 04/07/18 16:00 114 04/07/18 12:00 122 04/07/18 12:00 99.9 101 20 96/60 (72) 98 99.9 04/07/18 09:05 110 04/07/18 09:05 110 102/69 04/07/18 09:04 102/69 04/07/18 09:00 Room Air 04/07/18 08:01 97.7 110 20 102/69 (80) 93 97.7 04/07/18 08:00 125 04/07/18 04:00 98.3 96 20 137/77 (97) 100 98.3 04/07/18 04:00 116 04/07/18 00:00 122 04/07/18 00:00 99.7 108 22 128/80 (96) 100 99.7 04/06/18 22:00 101 04/06/18 21:49 Room Air Intake and Output 04/06/18 04/07/18 19:00 07:00 Intake Total 75 ml Output Total 0 ml Balance 0 ml 75 ml IV Total 75 ml Output Urine Total 0 ml # Voids 2 # Bowel Movements 1 Laboratory Tests Test 04/07/18 07:25 04/07/18 07:45 04/07/18 15:14 White Blood Count 32.0 K/UL (4.8-10.8) *H Red Blood Count 3.85 M/UL (4.70-6.10) L Hemoglobin 11.7 G/DL (14.2-18.0) L Hematocrit 36.0 % (42.0-52.0) L Mean Corpuscular Volume 93 FL (80-99) Mean Corpuscular Hemoglobin 30.3 PG (27.0-31.0) Mean Corpuscular Hemoglobin Concent 32.5 G/DL (32.0-36.0) Red Cell Distribution Width 12.0 % (11.6-14.8) Platelet Count 313 K/UL (150-450) Mean Platelet Volume 4.8 FL (6.5-10.1) L Neutrophils (%) (Auto) % (45.0-75.0) Lymphocytes (%) (Auto) % (20.0-45.0) Monocytes (%) (Auto) % (1.0-10.0) Eosinophils (%) (Auto) % (0.0-3.0) Basophils (%) (Auto) % (0.0-2.0) Differential Total Cells Counted 100 Neutrophils % (Manual) 89 % (45-75) H Lymphocytes % (Manual) 5 % (20-45) L Monocytes % (Manual) 6 % (1-10) Eosinophils % (Manual) 0 % (0-3) Basophils % (Manual) 0 % (0-2) Band Neutrophils 0 % (0-8) Platelet Estimate Adequate Platelet Morphology Normal Red Blood Cell Morphology Normal Sodium Level 131 MMOL/L (136-145) L Potassium Level 4.7 MMOL/L (3.5-5.1) Chloride Level 100 MMOL/L (98-107) Carbon Dioxide Level 27 MMOL/L (21-32) Anion Gap 4 mmol/L (5-15) L Blood Urea Nitrogen 25 mg/dL (7-18) H Creatinine 1.0 MG/DL (0.55-1.30) Estimat Glomerular Filtration Rate > 60 mL/min (>60) Glucose Level 85 MG/DL (74-106) Calcium Level 8.8 MG/DL (8.5-10.1) Total Bilirubin 0.8 MG/DL (0.2-1.0) Aspartate Amino Transf (AST/SGOT) 60 U/L (15-37) H Alanine Aminotransferase (ALT/SGPT) 30 U/L (12-78) Alkaline Phosphatase 108 U/L (46-116) Total Protein 7.0 G/DL (6.4-8.2) Albumin 1.8 G/DL (3.4-5.0) L Globulin 5.2 g/dL Albumin/Globulin Ratio 0.3 (1.0-2.7) L C-Reactive Protein, Quantitative 11.7 mg/dL (0.00-0.90) H Urine Color Yellow Urine Appearance Clear Urine pH 6.5 (4.5-8.0) Urine Specific [place] 1.010 (1.005-1.035) Urine Protein 1+ (NEGATIVE) H Urine Glucose (UA) Negative (NEGATIVE) Urine Ketones Negative (NEGATIVE) Urine Blood Negative (NEGATIVE) Urine Nitrite Negative (NEGATIVE) Urine Bilirubin Negative (NEGATIVE) Urine Urobilinogen Normal MG/DL (0.0-1.0) Urine Leukocyte Esterase Negative (NEGATIVE) Urine RBC 0-2 /HPF (0 - 0) H Urine WBC 0-2 /HPF (0 - 0) Urine Squamous Epithelial Cells None /LPF (NONE/OCC) Urine Bacteria Few /HPF (NONE) Urine Osmolality 560 mOsm/kg (429-449) H Urine Random Sodium < 20 mmol/L (20-110) L Urine Opiates Screen Positive (NEGATIVE) H Urine Barbiturates Screen Negative (NEGATIVE) Phencyclidine (PCP) Screen Negative (NEGATIVE) Urine Amphetamines Screen Negative (NEGATIVE) Urine Benzodiazepines Screen Negative (NEGATIVE) Urine Cocaine Screen Negative (NEGATIVE) Urine Marijuana (THC) Screen Negative (NEGATIVE) Height (Feet): 6 Height (Inches): 4.00 Weight (Pounds): 203 Medications Current Medications Medications (Trade) Dose Ordered Sig/Erlin Route PRN Reason Start Time Stop Time Status Last Admin Dose Admin Acetaminophen (Tylenol) 650 mg Q4H PRN ORAL fever 04/06/18 19:30 05/06/18 19:29 04/07/18 20:17 Albuterol/ Ipratropium (Albuterol/ Ipratropium) 3 ml Q4H PRN HHN Shortness of Breath 04/06/18 19:30 04/11/18 19:29 Ascorbic Acid (Vitamin C) 500 mg DAILY ORAL 04/08/18 09:00 05/08/18 08:59 Cefepime HCl 2 gm/ Dextrose 110 ml @ 220 mls/hr EVERY 12 HOURS IV 04/06/18 21:00 04/13/18 20:59 04/07/18 20:24 Dextrose (Dextrose 50%) 25 ml STAT PRN IV Hypoglycemia 04/06/18 19:30 05/06/18 19:29 Dextrose (Dextrose 50%) 50 ml Q30M PRN IV Hypoglycemia 04/06/18 19:30 05/06/18 19:29 Digoxin (Lanoxin) 0.25 mg DAILY ORAL 04/07/18 09:00 05/07/18 08:59 04/07/18 09:05 Famotidine (Pepcid) 20 mg BID ORAL 04/07/18 18:00 05/07/18 17:59 04/07/18 17:16 Gabapentin (Neurontin) 100 mg THREE TIMES A DAY ORAL 04/07/18 09:00 05/07/18 08:59 04/07/18 17:16 Heparin Sodium (Porcine) (Heparin 5000 units/ml) 5,000 units EVERY 12 HOURS SUBQ 04/06/18 21:00 05/06/18 20:59 04/07/18 20:23 Hydralazine HCl (Apresoline) 25 mg Q4H PRN ORAL bp over 160 syst 04/07/18 15:00 05/07/18 14:59 Metoprolol Tartrate (Lopressor) 10 mg Q1HR PRN IVP For High Blood Pressure 04/06/18 22:15 05/06/18 22:14 Metronidazole (Flagyl) 500 mg Q8H ORAL 04/07/18 16:00 04/14/18 15:59 04/07/18 15:48 Morphine Sulfate (Morphine Sulfate) 4 mg Q4H PRN IVP For Pain 04/06/18 23:30 04/13/18 19:29 04/07/18 17:47 Multivitamins Therapeutic (Therapeutic Multivitamin) 1 ea DAILY ORAL 04/08/18 09:00 05/08/18 08:59 Nitroglycerin (Ntg) 0.4 mg Q5M PRN SL Prn Chest Pain 04/06/18 19:30 05/06/18 19:29 Ondansetron HCl (Zofran) 4 mg Q6H PRN IVP Nausea & Vomiting 04/06/18 19:30 05/06/18 19:29 Polyethylene Glycol (Miralax) 17 gm DAILYPRN PRN ORAL Constipation 04/06/18 19:30 05/06/18 19:29 Quetiapine Fumarate (SEROquel) 100 mg BEDTIME ORAL 04/06/18 21:00 05/06/18 20:59 04/07/18 20:21 Sodium Hypochlorite (Dakin's Quarter Strength) 1 applic DAILY TOPIC 04/07/18 12:00 05/07/18 11:59 04/07/18 12:00 Sodium Chloride 1,000 ml @ 75 mls/hr [id number] IV 04/06/18 22:15 05/06/18 22:14 04/07/18 10:22 Temazepam (Restoril) 15 mg HSPRN PRN ORAL Insomnia 04/06/18 19:30 04/13/18 19:29 Vancomycin HCl (Vanco rx to dose) 1 ea DAILY PRN MISC rx to dose 04/06/18 20:45 05/06/18 20:44 Vancomycin HCl 1 gm/Dextrose 275 ml @ 183.708 mls/hr Q12H IVPB 04/07/18 10:00 04/12/18 09:59 04/07/18 10:21 Assessment/Plan Status: stable Assessment/Plan schizophrenia CVA -seroquel 100mg qhs -provided ro/Julissa Metz MD Apr 07, 2018 21:46
[2018-04-08] VITALS (7 sets, daily range): BP systolic 98–119; BP diastolic 54–76
[2018-04-08] MEDS: metroNIDAZOLE 500mg tab ORAL SCH ×4 (02:29→23:43)
[2018-04-08] MEDS: Morphine Sulfate 2mg/ml Inj IVP PRN ×4 (04:55→23:49)
--- NOTE | 2018-04-08 06:54 | Pulmonology Progress Note ---
Assessment/Plan Assessment/Plan ASSESSMENT Sepsis ( with severe leukocytosis ,tachycardia, fever and evidence of infection ) Maggot infestation bilateral leg ulcer with acute superinfection acute kidney injury, probably secondary to hypovolemia, provoked by dehydration electrolyte imbalance : hyponatremia and hyperkalemia hypertension diabetes mellitus history of CVA schizophrenia PLAN OF CARE telemetry floor. empiric antibiotic; follow up with culture ID follows IV fluids monitor renal parameters, lytes, avoid nephrotoxic , acute kidney injury resolving nephro follows wound care as per surgeon's recommendation BS management with sliding scale insulin off anti HTN due to hypotension, close monitoring of BP pain management supportive care bowel regimen DVT prophylaxis venous Duplex negative psych follows RO/ST provided per psych, started on Seroquel case discussed and evaluated by supervising physician Subjective Allergies: Coded Allergies: MILK (Verified Allergy, Unknown, 02/02/18) Subjective tachycardic, afebrile labs pending for this am Objective Last 24 Hour Vital Signs Date Time Temp Pulse Resp B/P (MAP) Pulse Ox O2 Delivery O2 Flow Rate FiO2 04/08/18 04:00 97.7 78 20 109/69 (82) 98 97.7 04/08/18 04:00 102 04/08/18 00:00 103 04/08/18 00:00 99.1 106 21 98/56 (70) 98 99.1 04/07/18 21:00 Room Air 04/07/18 20:16 91 20 Room Air 21 04/07/18 20:00 98.2 74 22 101/61 (74) 98 98.2 04/07/18 20:00 109 04/07/18 16:00 97.9 65 20 114/65 (81) 94 97.9 04/07/18 16:00 114 04/07/18 12:00 122 04/07/18 12:00 99.9 101 20 96/60 (72) 98 99.9 04/07/18 09:05 110 04/07/18 09:05 110 102/69 04/07/18 09:04 102/69 04/07/18 09:00 Room Air 04/07/18 08:01 97.7 110 20 102/69 (80) 93 97.7 04/07/18 08:00 125 Intake and Output 04/07/18 04/08/18 19:00 07:00 Intake Total 780 ml 668.75 ml Output Total 400 ml 200 ml Balance 380 ml 468.75 ml Intake Oral 480 ml 200 ml IV Total 300 ml 468.75 ml Output Urine Total 400 ml 200 ml General Appearance: no acute distress, other - bedridden AA male awake, responsive, HEENT: normocephalic, atraumatic, anicteric Respiratory/Chest: lungs clear, no respiratory distress Cardiovascular: tachycardia - ST with frequent PAC Abdomen: soft, non tender Extremities: other - trace edema BLE Skin: other - bilateral lower leg ulcers 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: abnormal gait, alert, responsive Musculoskeletal: atrophy - BLE Microbiology Date/Time Source Procedure Growth Status 04/06/18 18:45 Blood Blood Culture - Preliminary NO GROWTH AFTER 24 HOURS Resulted 04/06/18 18:30 Blood Blood Culture - Preliminary NO GROWTH AFTER 24 HOURS Resulted 04/06/18 18:30 Wound Gram Stain - Final Resulted 04/06/18 18:30 Wound Wound Culture Pending Resulted Laboratory Tests 04/07/18 07:25: White Blood Count 32.0*H, Red Blood Count 3.85L, Hemoglobin 11.7L, Hematocrit 36.0L, Mean Corpuscular Volume 93, Mean Corpuscular Hemoglobin 30.3, Mean Corpuscular Hemoglobin Concent 32.5, Red Cell Distribution Width 12.0, Platelet Count 313, Mean Platelet Volume 4.8L, Neutrophils (%) (Auto) , Lymphocytes (%) ( Auto) , Monocytes (%) (Auto) , Eosinophils (%) (Auto) , Basophils (%) (Auto) , Differential Total Cells Counted 100, Neutrophils % (Manual) 89H, Lymphocytes % (Manual) 5L, Monocytes % (Manual) 6, Eosinophils % (Manual) 0, Basophils % ( Manual) 0, Band Neutrophils 0, Platelet Estimate Adequate, Platelet Morphology Normal, Red Blood Cell Morphology Normal, Sodium Level 131L, Potassium Level 4.7 , Chloride Level 100, Carbon Dioxide Level 27, Anion Gap 4L, Blood Urea Nitrogen 25H, Creatinine 1.0, Estimat Glomerular Filtration Rate > 60, Glucose Level 85, Calcium Level 8.8, Total Bilirubin 0.8, Aspartate Amino Transf (AST/ SGOT) 60H, Alanine Aminotransferase (ALT/SGPT) 30, Alkaline Phosphatase 108, Total Protein 7.0, Albumin 1.8L, Globulin 5.2, Albumin/Globulin Ratio 0.3L 04/07/18 07:45: C-Reactive Protein, Quantitative 11.7H 04/07/18 15:14: Urine Color Yellow, Urine Appearance Clear, Urine pH 6.5, Urine Specific [place] 1.010, Urine Protein 1+H, Urine Glucose (UA) Negative, Urine Ketones Negative, Urine Blood Negative, Urine Nitrite Negative, Urine Bilirubin Negative , Urine Urobilinogen Normal, Urine Leukocyte Esterase Negative, Urine RBC 0-2H, Urine WBC 0-2, Urine Squamous Epithelial Cells None, Urine Bacteria Few, Urine Osmolality 560H, Urine Random Sodium < 20L, Urine Opiates Screen PositiveH, Urine Barbiturates Screen Negative, Phencyclidine (PCP) Screen Negative, Urine Amphetamines Screen Negative, Urine Benzodiazepines Screen Negative, Urine Cocaine Screen Negative, Urine Marijuana (THC) Screen Negative Current Medications Medications (Trade) Dose Ordered Sig/Erlin Route PRN Reason Start Time Stop Time Status Last Admin Dose Admin Acetaminophen (Tylenol) 650 mg Q4H PRN ORAL fever 04/06/18 19:30 05/06/18 19:29 04/07/18 20:17 Albuterol/ Ipratropium (Albuterol/ Ipratropium) 3 ml Q4H PRN HHN Shortness of Breath 04/06/18 19:30 04/11/18 19:29 Ascorbic Acid (Vitamin C) 500 mg DAILY ORAL 04/08/18 09:00 05/08/18 08:59 Cefepime HCl 2 gm/ Dextrose 110 ml @ 220 mls/hr EVERY 12 HOURS IV 04/06/18 21:00 04/13/18 20:59 04/07/18 20:24 Dextrose (Dextrose 50%) 25 ml STAT PRN IV Hypoglycemia 04/06/18 19:30 05/06/18 19:29 Dextrose (Dextrose 50%) 50 ml Q30M PRN IV Hypoglycemia 04/06/18 19:30 05/06/18 19:29 Digoxin (Lanoxin) 0.25 mg DAILY ORAL 04/07/18 09:00 05/07/18 08:59 04/07/18 09:05 Famotidine (Pepcid) 20 mg BID ORAL 04/07/18 18:00 05/07/18 17:59 04/07/18 17:16 Gabapentin (Neurontin) 100 mg THREE TIMES A DAY ORAL 04/07/18 09:00 05/07/18 08:59 04/07/18 17:16 Heparin Sodium (Porcine) (Heparin 5000 units/ml) 5,000 units EVERY 12 HOURS SUBQ 04/06/18 21:00 05/06/18 20:59 04/07/18 20:23 Hydralazine HCl (Apresoline) 25 mg Q4H PRN ORAL bp over 160 syst 04/07/18 15:00 05/07/18 14:59 Metoprolol Tartrate (Lopressor) 10 mg Q1HR PRN IVP For High Blood Pressure 04/06/18 22:15 05/06/18 22:14 Metronidazole (Flagyl) 500 mg Q8H ORAL 04/07/18 16:00 04/14/18 15:59 04/08/18 02:29 Morphine Sulfate (Morphine Sulfate) 4 mg Q4H PRN IVP For Pain 04/06/18 23:30 04/13/18 19:29 04/08/18 04:55 Multivitamins Therapeutic (Therapeutic Multivitamin) 1 ea DAILY ORAL 04/08/18 09:00 05/08/18 08:59 Nitroglycerin (Ntg) 0.4 mg Q5M PRN SL Prn Chest Pain 04/06/18 19:30 05/06/18 19:29 Ondansetron HCl (Zofran) 4 mg Q6H PRN IVP Nausea & Vomiting 04/06/18 19:30 05/06/18 19:29 Polyethylene Glycol (Miralax) 17 gm DAILYPRN PRN ORAL Constipation 04/06/18 19:30 05/06/18 19:29 Quetiapine Fumarate (SEROquel) 100 mg BEDTIME ORAL 04/06/18 21:00 05/06/18 20:59 04/07/18 20:21 Sodium Hypochlorite (Dakin's Quarter Strength) 1 applic DAILY TOPIC 04/07/18 12:00 05/07/18 11:59 04/07/18 12:00 Sodium Chloride 1,000 ml @ 75 mls/hr [id number] IV 04/06/18 22:15 05/06/18 22:14 04/08/18 00:15 Temazepam (Restoril) 15 mg HSPRN PRN ORAL Insomnia 04/06/18 19:30 04/13/18 19:29 Vancomycin HCl (Vanco rx to dose) 1 ea DAILY PRN MISC rx to dose 04/06/18 20:45 05/06/18 20:44 Vancomycin HCl 1 gm/Dextrose 275 ml @ 183.708 mls/hr Q12H IVPB 04/07/18 10:00 04/12/18 09:59 04/07/18 23:49 Linsey Boo NP Apr 08, 2018 06:54
[2018-04-08] MEDS: Ascorbic Acid 500mg tab ORAL SCH (09:04)
[2018-04-08] MEDS: Multivitamin w/Minerals tab ORAL SCH (09:05)
[2018-04-08] MEDS: Cefepime HCl 2 GM in D5W 110 ML IV SCH ×2 (09:05→20:40)
[2018-04-08] MEDS: Heparin 5000 units/ml inj SUBQ SCH ×2 (09:08→20:39)
[2018-04-08] MEDS: Dakin's 0.125% Soln (Quarter Strength) 16oz TOPIC SCH (09:10)
[2018-04-08 09:12] LABS: HEMATOCRIT 34.3 % (42.0-52.0); HEMOGLOBIN 10.9 G/DL (14.2-18.0); MEAN CORPUSCULAR VOLUME 94 FL (80-99); PLATELET COUNT 232 K/UL (150-450); RED BLOOD COUNT 3.64 M/UL (4.70-6.10); RED CELL DISTRIBUTION WIDTH 12.4 % (11.6-14.8); WHITE BLOOD COUNT 21.1 K/UL (4.8-10.8)
--- NOTE | 2018-04-08 09:30 | Cardiology Progress Note ---
Assessment/Plan Status: stable Assessment/Plan Assessment: (1) Maggot infestation (2) Drug abuse (3) CAD (coronary artery disease) (4) HTN (hypertension) (5) CVA (cerebral vascular accident) (6) Bipolar 1 disorder (7) Shock liver (8) Leg wound, right (9) Sepsis (10) Hyponatremia (11) Infestation, maggots (12) Hyperkalemia (13) Renal insufficiency (14) Infected ulcer of skin Plan: Continue aspirin Norvasc and lisinopril on hold due to hypotension, restart once infection clears Continue Digoxin Continue to monitor electrolytes Telemetry -> ok to transfer to floor Tuesday IV Abx per ID Wound care CV stable Subjective Cardiovascular: Reports: no symptoms Respiratory: Reports: no symptoms Gastrointestinal/Abdominal: Reports: no symptoms Genitourinary: Reports: no symptoms Subjective No acute events, vitals stable, tachycardic from infection, BP stable, no pain, urine positive for opiates. Objective Last 24 Hour Vital Signs Date Time Temp Pulse Resp B/P (MAP) Pulse Ox O2 Delivery O2 Flow Rate FiO2 04/08/18 09:10 118 04/08/18 04:00 97.7 78 20 109/69 (82) 98 97.7 04/08/18 04:00 102 04/08/18 00:00 103 04/08/18 00:00 99.1 106 21 98/56 (70) 98 99.1 04/07/18 21:00 Room Air 04/07/18 20:16 91 20 Room Air 21 04/07/18 20:00 98.2 74 22 101/61 (74) 98 98.2 04/07/18 20:00 109 04/07/18 16:00 97.9 65 20 114/65 (81) 94 97.9 04/07/18 16:00 114 04/07/18 12:00 122 04/07/18 12:00 99.9 101 20 96/60 (72) 98 99.9 General Appearance: no apparent distress, alert EENT: PERRL/EOMI, normal ENT inspection Neck: non-tender, normal alignment Rhythm: NSR Cardiovascular: normal peripheral pulses, normal rate, regular rhythm Respiratory/Chest: chest wall non-tender Abdomen: normal bowel sounds, non tender Extremities: normal range of motion, non-tender Neurologic: lay health advocate II-XII grossly normal, no motor/sensory deficits Intake and Output 04/07/18 04/08/18 19:00 07:00 Intake Total 780 ml 668.75 ml Output Total 400 ml 200 ml Balance 380 ml 468.75 ml Intake Oral 480 ml 200 ml IV Total 300 ml 468.75 ml Output Urine Total 400 ml 200 ml Laboratory Tests Test 04/07/18 15:14 04/08/18 08:45 Urine Color Yellow Urine Appearance Clear Urine pH 6.5 (4.5-8.0) Urine Specific [place] 1.010 (1.005-1.035) Urine Protein 1+ (NEGATIVE) H Urine Glucose (UA) Negative (NEGATIVE) Urine Ketones Negative (NEGATIVE) Urine Blood Negative (NEGATIVE) Urine Nitrite Negative (NEGATIVE) Urine Bilirubin Negative (NEGATIVE) Urine Urobilinogen Normal MG/DL (0.0-1.0) Urine Leukocyte Esterase Negative (NEGATIVE) Urine RBC 0-2 /HPF (0 - 0) H Urine WBC 0-2 /HPF (0 - 0) Urine Squamous Epithelial Cells None /LPF (NONE/OCC) Urine Bacteria Few /HPF (NONE) Urine Osmolality 560 mOsm/kg (429-449) H Urine Random Sodium < 20 mmol/L (20-110) L Urine Opiates Screen Positive (NEGATIVE) H Urine Barbiturates Screen Negative (NEGATIVE) Phencyclidine (PCP) Screen Negative (NEGATIVE) Urine Amphetamines Screen Negative (NEGATIVE) Urine Benzodiazepines Screen Negative (NEGATIVE) Urine Cocaine Screen Negative (NEGATIVE) Urine Marijuana (THC) Screen Negative (NEGATIVE) White Blood Count 21.1 K/UL (4.8-10.8) H Red Blood Count 3.64 M/UL (4.70-6.10) L Hemoglobin 10.9 G/DL (14.2-18.0) L Hematocrit 34.3 % (42.0-52.0) L Mean Corpuscular Volume 94 FL (80-99) Mean Corpuscular Hemoglobin 30.0 PG (27.0-31.0) Mean Corpuscular Hemoglobin Concent 31.9 G/DL (32.0-36.0) L Red Cell Distribution Width 12.4 % (11.6-14.8) Platelet Count 232 K/UL (150-450) Mean Platelet Volume 5.0 FL (6.5-10.1) L Neutrophils (%) (Auto) % (45.0-75.0) Lymphocytes (%) (Auto) % (20.0-45.0) Monocytes (%) (Auto) % (1.0-10.0) Eosinophils (%) (Auto) % (0.0-3.0) Basophils (%) (Auto) % (0.0-2.0) Neutrophils % (Manual) Pending Lymphocytes % (Manual) Pending Platelet Estimate Pending Platelet Morphology Pending Sodium Level Pending Potassium Level Pending Chloride Level Pending Carbon Dioxide Level Pending Blood Urea Nitrogen Pending Creatinine Pending Estimat Glomerular Filtration Rate Pending Glucose Level Pending Hemoglobin A1c Pending Uric Acid Pending Calcium Level Pending Phosphorus Level Pending Magnesium Level Pending Iron Level Pending Unsaturated Iron Binding Pending Ferritin Pending Total Bilirubin Pending Gamma Glutamyl Transpeptidase Pending Aspartate Amino Transf (AST/SGOT) Pending Alanine Aminotransferase (ALT/SGPT) Pending Alkaline Phosphatase Pending Total Creatine Kinase Pending Troponin I Pending Pro-B-Type Natriuretic Peptide Pending Total Protein Pending Albumin Pending Globulin Pending Triglycerides Level Pending Cholesterol Level Pending LDL Cholesterol Pending HDL Cholesterol Pending Cholesterol/HDL Ratio Pending Vitamin B12 Level Pending Folate Pending Thyroid Stimulating Hormone (TSH) Pending Vancomycin Level Trough Pending Microbiology Date/Time Source Procedure Growth Status 04/06/18 18:45 Blood Blood Culture - Preliminary NO GROWTH AFTER 24 HOURS Resulted 04/06/18 18:30 Blood Blood Culture - Preliminary NO GROWTH AFTER 24 HOURS Resulted 04/06/18 18:30 Wound Gram Stain - Final Resulted 04/06/18 18:30 Wound Wound Culture Pending Resulted Vinny Tobin MD Apr 08, 2018 09:30
[2018-04-08 10:01] LABS: ALANINE AMINOTRANSFERASE 35 U/L (12-78); ALBUMIN 1.8 G/DL (3.4-5.0); ALBUMIN/GLOBULIN RATIO 0.4 (1.0-2.7); ALKALINE PHOSPHATASE 86 U/L (46-116); ANION GAP 6 mmol/L (5-15); ASPARTATE AMINO TRANSFERASE 53 U/L (15-37); BILIRUBIN,TOTAL 0.4 MG/DL (0.2-1.0); BLOOD UREA NITROGEN 19 mg/dL (7-18); CALCIUM 8.6 MG/DL (8.5-10.1); CARBON DIOXIDE 25 MMOL/L (21-32); CHLORIDE 104 MMOL/L (98-107); CHOLESTEROL 116 MG/DL (< 200); CREATINE KINASE 183 U/L (26-308); FERRITIN 628 NG/ML (8-388); GAMMA GLUTAMYL TRANSPEPTIDASE 299 U/L (5-85); HDL CHOLESTEROL 44 MG/DL (40-60); PHOSPHORUS 2.6 MG/DL (2.5-4.9); POTASSIUM 3.6 MMOL/L (3.5-5.1); SODIUM 135 MMOL/L (136-145); TRIGLYCERIDES 69 MG/DL (30-150)
[2018-04-08 10:19] LABS: % IRON SATURATION 14 % (15-50); IRON 25 ug/dL (50-175); TOTAL IRON BINDING CAPACITY 177 ug/dL (250-450)
[2018-04-08] MEDS ORDERED: Tubing IV Secondary IV ONE (10:26)
[2018-04-08] MEDS ORDERED: D5W 275ml ONE (10:26)
[2018-04-08] MEDS: Vancomycin 1gm in D5W 275ml IVPB SCH ×2 (11:32→22:08)
--- NOTE | 2018-04-08 11:46 | Infectious Diseases Prog Note ---
Assessment/Plan Assessment/Plan Abx: IV Vancomycin 04/06- Cefepime 04/06- Assessment: Sepsis, improving- likely from skin source- r/o bacteremia -wound cx GNR -Bcx NTD Fever, improving Hyper leukocytosis, improving Chronic R leg ulcer w/ acute superinfection -01/2018 wound cx: MDR PsA ( S Imipenem; prob colonizer), MSSA Myasis Hx of SHock 01/2018 -rhabdomyolysis, shock liver Hx of Acute renal failure 01/2018 requiring temporary HD. HTN bipolar dz Afib substance abuse CVA/TIA HLD CAD -NSTEMI 01/2018 SNF resident Plan: -Continue empiric IV Vancomycin and Cefepime #3 pending cultures -02/12 SP Meropenem #5 -02/08 SP Zosyn #6 -02/07 SP IV Vancomycin #4 -f/u cx -Monitor CBC/CMP, temperatures -wound care per hospital protocol -Aspiration precautions -Sx f/u Thank you for this consultation. Will continue to follow along with you. Discussed with RN. Subjective Allergies: Coded Allergies: MILK (Verified Allergy, Unknown, 02/02/18) Subjective afebrile in ~36hrs wbc improving Bcx NTD Objective Vital Signs Last 24 Hour Vital Signs Date Time Temp Pulse Resp B/P (MAP) Pulse Ox O2 Delivery O2 Flow Rate FiO2 04/08/18 10:39 97.8 115 20 101/65 (77) 99 97.8 04/08/18 09:10 118 04/08/18 08:00 97.8 115 20 101/65 (77) 99 97.8 04/08/18 08:00 105 04/08/18 04:00 97.7 78 20 109/69 (82) 98 97.7 04/08/18 04:00 102 04/08/18 00:00 103 04/08/18 00:00 99.1 106 21 98/56 (70) 98 99.1 04/07/18 21:00 Room Air 04/07/18 20:16 91 20 Room Air 21 04/07/18 20:00 98.2 74 22 101/61 (74) 98 98.2 04/07/18 20:00 109 04/07/18 16:00 97.9 65 20 114/65 (81) 94 97.9 04/07/18 16:00 114 04/07/18 12:00 122 10/19/18 12:00 99.9 101 20 96/60 (72) 98 99.9 Height (Feet): 6 Height (Inches): 4.00 Weight (Pounds): 203 Objective General Appearance: cachetic Lines, tubes and drains: peripheral HEENT: normocephalic, atraumatic Neck: non-tender, normal alignment Respiratory/Chest: chest wall non-tender, lungs clear Cardiovascular/Chest: normal peripheral pulses, normal rate Abdomen: normal bowel sounds, non tender Extremities: normal range of motion Skin Exam: Bl LE wrapped; per pictures, chronic ulcer with macerated borders and purulent discharge. was reported to have foul smelling order and maggots Microbiology Date/Time Source Procedure Growth Status 04/06/18 18:45 Blood Blood Culture - Preliminary NO GROWTH AFTER 24 HOURS Resulted 04/06/18 18:30 Blood Blood Culture - Preliminary NO GROWTH AFTER 24 HOURS Resulted 04/06/18 18:30 Wound Gram Stain - Final Resulted 04/06/18 18:30 Wound Culture - Preliminary Gram Negative Bacillus 1 Resulted Laboratory Tests Test 04/07/18 15:14 04/08/18 08:45 Urine Color Yellow Urine Appearance Clear Urine pH 6.5 (4.5-8.0) Urine Specific [place] 1.010 (1.005-1.035) Urine Protein 1+ (NEGATIVE) H Urine Glucose (UA) Negative (NEGATIVE) Urine Ketones Negative (NEGATIVE) Urine Blood Negative (NEGATIVE) Urine Nitrite Negative (NEGATIVE) Urine Bilirubin Negative (NEGATIVE) Urine Urobilinogen Normal MG/DL (0.0-1.0) Urine Leukocyte Esterase Negative (NEGATIVE) Urine RBC 0-2 /HPF (0 - 0) H Urine WBC 0-2 /HPF (0 - 0) Urine Squamous Epithelial Cells None /LPF (NONE/OCC) Urine Bacteria Few /HPF (NONE) Urine Osmolality 560 mOsm/kg (429-449) H Urine Random Sodium < 20 mmol/L (20-110) L Urine Opiates Screen Positive (NEGATIVE) H Urine Barbiturates Screen Negative (NEGATIVE) Phencyclidine (PCP) Screen Negative (NEGATIVE) Urine Amphetamines Screen Negative (NEGATIVE) Urine Benzodiazepines Screen Negative (NEGATIVE) Urine Cocaine Screen Negative (NEGATIVE) Urine Marijuana (THC) Screen Negative (NEGATIVE) White Blood Count 21.1 K/UL (4.8-10.8) H Red Blood Count 3.64 M/UL (4.70-6.10) L Hemoglobin 10.9 G/DL (14.2-18.0) L Hematocrit 34.3 % (42.0-52.0) L Mean Corpuscular Volume 94 FL (80-99) Mean Corpuscular Hemoglobin 30.0 PG (27.0-31.0) Mean Corpuscular Hemoglobin Concent 31.9 G/DL (32.0-36.0) L Red Cell Distribution Width 12.4 % (11.6-14.8) Platelet Count 232 K/UL (150-450) Mean Platelet Volume 5.0 FL (6.5-10.1) L Neutrophils (%) (Auto) % (45.0-75.0) Lymphocytes (%) (Auto) % (20.0-45.0) Monocytes (%) (Auto) % (1.0-10.0) Eosinophils (%) (Auto) % (0.0-3.0) Basophils (%) (Auto) % (0.0-2.0) Neutrophils % (Manual) Pending Lymphocytes % (Manual) Pending Platelet Estimate Pending Platelet Morphology Pending Sodium Level 135 MMOL/L (136-145) L Potassium Level 3.6 MMOL/L (3.5-5.1) Chloride Level 104 MMOL/L (98-107) Carbon Dioxide Level 25 MMOL/L (21-32) Anion Gap 6 mmol/L (5-15) Blood Urea Nitrogen 19 mg/dL (7-18) H Creatinine 1.0 MG/DL (0.55-1.30) Estimat Glomerular Filtration Rate > 60 mL/min (>60) Glucose Level 111 MG/DL (74-106) H Hemoglobin A1c 5.5 % (4.3-6.0) Uric Acid 5.2 MG/DL (2.6-7.2) Calcium Level 8.6 MG/DL (8.5-10.1) Phosphorus Level 2.6 MG/DL (2.5-4.9) Magnesium Level 2.0 MG/DL (1.8-2.4) Iron Level 25 ug/dL (50-175) L Total Iron Binding Capacity 177 ug/dL (250-450) L Percent Iron Saturation 14 % (15-50) L Unsaturated Iron Binding 152 ug/dL (112-346) Ferritin 628 NG/ML (8-388) H Total Bilirubin 0.4 MG/DL (0.2-1.0) Gamma Glutamyl Transpeptidase 299 U/L (5-85) H Aspartate Amino Transf (AST/SGOT) 53 U/L (15-37) H Alanine Aminotransferase (ALT/SGPT) 35 U/L (12-78) Alkaline Phosphatase 86 U/L (46-116) Total Creatine Kinase 183 U/L (26-308) Troponin I 0.033 ng/mL (0.000-0.056) Pro-B-Type Natriuretic Peptide 1635 pg/mL (0-125) H Total Protein 6.4 G/DL (6.4-8.2) Albumin 1.8 G/DL (3.4-5.0) L Globulin 4.6 g/dL Albumin/Globulin Ratio 0.4 (1.0-2.7) L Triglycerides Level 69 MG/DL (30-150) Cholesterol Level 116 MG/DL (< 200) LDL Cholesterol 51 mg/dL (<100) HDL Cholesterol 44 MG/DL (40-60) Cholesterol/HDL Ratio 2.6 (3.3-4.4) L Vitamin B12 Level 523 PG/ML (193-986) Folate 19.2 NG/ML (8.6-58.9) Thyroid Stimulating Hormone (TSH) 0.596 uiU/mL (0.358-3.740) Vancomycin Level Trough 16.5 ug/mL (5.0-12.0) H Current Medications Medications (Trade) Dose Ordered Sig/Erlin Route PRN Reason Start Time Stop Time Status Last Admin Dose Admin Acetaminophen (Tylenol) 650 mg Q4H PRN ORAL fever 04/06/18 19:30 18 19:29 04/07/18 20:17 Albuterol/ Ipratropium (Albuterol/ Ipratropium) 3 ml Q4H PRN HHN Shortness of Breath 04/06/18 19:30 18 19:29 Ascorbic Acid (Vitamin C) 500 mg DAILY ORAL 04/08/18 09:00 05/08/18 08:59 04/08/18 09:04 Cefepime HCl 2 gm/ Dextrose 110 ml @ 220 mls/hr EVERY 12 HOURS IV 04/06/18 21:00 04/13/18 20:59 04/08/18 09:05 Dextrose (Dextrose 50%) 25 ml STAT PRN IV Hypoglycemia 04/06/18 19:30 05/06/18 19:29 Dextrose (Dextrose 50%) 50 ml Q30M PRN IV Hypoglycemia 04/06/18 19:30 05/06/18 19:29 Digoxin (Lanoxin) 0.25 mg DAILY ORAL 04/07/18 09:00 05/07/18 08:59 04/08/18 09:10 Famotidine (Pepcid) 20 mg BID ORAL 04/07/18 18:00 05/07/18 17:59 04/08/18 09:05 Gabapentin (Neurontin) 100 mg THREE TIMES A DAY ORAL 04/07/18 09:00 05/07/18 08:59 04/08/18 09:04 Heparin Sodium (Porcine) (Heparin 5000 units/ml) 5,000 units EVERY 12 HOURS SUBQ 04/06/18 21:00 05/06/18 20:59 04/08/18 09:08 Hydralazine HCl (Apresoline) 25 mg Q4H PRN ORAL bp over 160 syst 04/07/18 15:00 05/07/18 14:59 Metoprolol Tartrate (Lopressor) 10 mg Q1HR PRN IVP For High Blood Pressure 04/06/18 22:15 05/06/18 22:14 Metronidazole (Flagyl) 500 mg Q8H ORAL 04/07/18 16:00 04/14/18 15:59 04/08/18 08:54 Morphine Sulfate (Morphine Sulfate) 4 mg Q4H PRN IVP For Pain 04/06/18 23:30 04/13/18 19:29 04/08/18 08:59 Multivitamins Therapeutic (Therapeutic Multivitamin) 1 ea DAILY ORAL 04/08/18 09:00 05/08/18 08:59 04/08/18 09:05 Nitroglycerin (Ntg) 0.4 mg Q5M PRN SL Prn Chest Pain 04/06/18 19:30 05/06/18 19:29 Ondansetron HCl (Zofran) 4 mg Q6H PRN IVP Nausea & Vomiting 04/06/18 19:30 05/06/18 19:29 Polyethylene Glycol (Miralax) 17 gm DAILYPRN PRN ORAL Constipation 04/06/18 19:30 05/06/18 19:29 Quetiapine Fumarate (SEROquel) 100 mg BEDTIME ORAL 04/06/18 21:00 05/06/18 20:59 04/07/18 20:21 Sodium Hypochlorite (Dakin's Quarter Strength) 1 applic DAILY TOPIC 04/07/18 12:00 05/07/18 11:59 04/08/18 09:10 Sodium Chloride 1,000 ml @ 75 mls/hr [id number] IV 04/06/18 22:15 05/06/18 22:14 04/08/18 00:15 Temazepam (Restoril) 15 mg HSPRN PRN ORAL Insomnia 04/06/18 19:30 04/13/18 19:29 Vancomycin HCl (Vanco rx to dose) 1 ea DAILY PRN MISC rx to dose 04/06/18 20:45 05/06/18 20:44 Vancomycin HCl 1 gm/Dextrose 275 ml @ 183.708 mls/hr Q12H IVPB 04/07/18 10:00 04/12/18 09:59 04/08/18 11:32 Alma Elkins M.D. Apr 08, 2018 11:46
--- NOTE | 2018-04-08 12:40 | General Surgery Progress Note ---
General Surgery-Progress Note Subjective Additional Comments no acute events Objective Last 24 Hour Vital Signs Date Time Temp Pulse Resp B/P (MAP) Pulse Ox O2 Delivery O2 Flow Rate FiO2 04/08/18 10:39 97.8 115 20 101/65 (77) 99 97.8 04/08/18 09:10 118 04/08/18 08:00 97.8 115 20 101/65 (77) 99 97.8 04/08/18 08:00 105 04/08/18 04:00 97.7 78 20 109/69 (82) 98 97.7 04/08/18 04:00 102 04/08/18 00:00 103 04/08/18 00:00 99.1 106 21 98/56 (70) 98 99.1 04/07/18 21:00 Room Air 04/07/18 20:16 91 20 Room Air 21 04/07/18 20:00 98.2 74 22 101/61 (74) 98 98.2 04/07/18 20:00 109 04/07/18 16:00 97.9 65 20 114/65 (81) 94 97.9 04/07/18 16:00 114 I&O Intake and Output 04/07/18 04/08/18 19:00 07:00 Intake Total 780 ml 668.75 ml Output Total 400 ml 200 ml Balance 380 ml 468.75 ml Intake Oral 480 ml 200 ml IV Total 300 ml 468.75 ml Output Urine Total 400 ml 200 ml Dressing: saturated Wound: other Cardiovascular: RSR Respiratory: clear Abdomen: soft, non-tender, present bowel sounds Extremities: other Laboratory Tests Test 04/07/18 15:14 04/08/18 08:45 Urine Color Yellow Urine Appearance Clear Urine pH 6.5 (4.5-8.0) Urine Specific Lavinia 1.010 (1.005-1.035) Urine Protein 1+ (NEGATIVE) H Urine Glucose (UA) Negative (NEGATIVE) Urine Ketones Negative (NEGATIVE) Urine Blood Negative (NEGATIVE) Urine Nitrite Negative (NEGATIVE) Urine Bilirubin Negative (NEGATIVE) Urine Urobilinogen Normal MG/DL (0.0-1.0) Urine Leukocyte Esterase Negative (NEGATIVE) Urine RBC 0-2 /HPF (0 - 0) H Urine WBC 0-2 /HPF (0 - 0) Urine Squamous Epithelial Cells None /LPF (NONE/OCC) Urine Bacteria Few /HPF (NONE) Urine Osmolality 560 mOsm/kg (429-449) H Urine Random Sodium < 20 mmol/L (20-110) L Urine Opiates Screen Positive (NEGATIVE) H Urine Barbiturates Screen Negative (NEGATIVE) Phencyclidine (PCP) Screen Negative (NEGATIVE) Urine Amphetamines Screen Negative (NEGATIVE) Urine Benzodiazepines Screen Negative (NEGATIVE) Urine Cocaine Screen Negative (NEGATIVE) Urine Marijuana (THC) Screen Negative (NEGATIVE) White Blood Count 21.1 K/UL (4.8-10.8) H Red Blood Count 3.64 M/UL (4.70-6.10) L Hemoglobin 10.9 G/DL (14.2-18.0) L Hematocrit 34.3 % (42.0-52.0) L Mean Corpuscular Volume 94 FL (80-99) Mean Corpuscular Hemoglobin 30.0 PG (27.0-31.0) Mean Corpuscular Hemoglobin Concent 31.9 G/DL (32.0-36.0) L Red Cell Distribution Width 12.4 % (11.6-14.8) Platelet Count 232 K/UL (150-450) Mean Platelet Volume 5.0 FL (6.5-10.1) L Neutrophils (%) (Auto) % (45.0-75.0) Lymphocytes (%) (Auto) % (20.0-45.0) Monocytes (%) (Auto) % (1.0-10.0) Eosinophils (%) (Auto) % (0.0-3.0) Basophils (%) (Auto) % (0.0-2.0) Differential Total Cells Counted 100 Neutrophils % (Manual) 92 % (45-75) H Lymphocytes % (Manual) 3 % (20-45) L Monocytes % (Manual) 5 % (1-10) Eosinophils % (Manual) 0 % (0-3) Basophils % (Manual) 0 % (0-2) Band Neutrophils 0 % (0-8) Platelet Estimate Adequate Platelet Morphology Normal Red Blood Cell Morphology Normal Sodium Level 135 MMOL/L (136-145) L Potassium Level 3.6 MMOL/L (3.5-5.1) Chloride Level 104 MMOL/L (98-107) Carbon Dioxide Level 25 MMOL/L (21-32) Anion Gap 6 mmol/L (5-15) Blood Urea Nitrogen 19 mg/dL (7-18) H Creatinine 1.0 MG/DL (0.55-1.30) Estimat Glomerular Filtration Rate > 60 mL/min (>60) Glucose Level 111 MG/DL (74-106) H Hemoglobin A1c 5.5 % (4.3-6.0) Uric Acid 5.2 MG/DL (2.6-7.2) Calcium Level 8.6 MG/DL (8.5-10.1) Phosphorus Level 2.6 MG/DL (2.5-4.9) Magnesium Level 2.0 MG/DL (1.8-2.4) Iron Level 25 ug/dL (50-175) L Total Iron Binding Capacity 177 ug/dL (250-450) L Percent Iron Saturation 14 % (15-50) L Unsaturated Iron Binding 152 ug/dL (112-346) Ferritin 628 NG/ML (8-388) H Total Bilirubin 0.4 MG/DL (0.2-1.0) Gamma Glutamyl Transpeptidase 299 U/L (5-85) H Aspartate Amino Transf (AST/SGOT) 53 U/L (15-37) H Alanine Aminotransferase (ALT/SGPT) 35 U/L (12-78) Alkaline Phosphatase 86 U/L (46-116) Total Creatine Kinase 183 U/L (26-308) Troponin I 0.033 ng/mL (0.000-0.056) Pro-B-Type Natriuretic Peptide 1635 pg/mL (0-125) H Total Protein 6.4 G/DL (6.4-8.2) Albumin 1.8 G/DL (3.4-5.0) L Globulin 4.6 g/dL Albumin/Globulin Ratio 0.4 (1.0-2.7) L Triglycerides Level 69 MG/DL (30-150) Cholesterol Level 116 MG/DL (< 200) LDL Cholesterol 51 mg/dL (<100) HDL Cholesterol 44 MG/DL (40-60) Cholesterol/HDL Ratio 2.6 (3.3-4.4) L Vitamin B12 Level 523 PG/ML (193-986) Folate 19.2 NG/ML (8.6-58.9) Thyroid Stimulating Hormone (TSH) 0.596 uiU/mL (0.358-3.740) Vancomycin Level Trough 16.5 ug/mL (5.0-12.0) H Plan Problems: (1) Maggot infestation Assessment & Plan: Pt presents with multiple ulcerations to both lower ext with maggots infestation. Wounds are irregular malodorous. Both lower ext. cool to touch.Toes necrotic with ulcerations 1st,2nd and 3rd metatarsals ulcerated. Maggots noted to web spaces of toes.Ulcers dorsal aspects of toes L foot.Web spaces of toes are dry . Full thickness pressure injury to sacrum with 50% slough,(+) epibole. Periwound dark .Wound malodorous. Wounds both lower ext cleansed with Dakin's then Dakin's soaked gauze placed over wounds, covered with ABD and wrapped with soft chavez. Powder applied in web spaces of toes. Tx.Plan: Cleanse both lower ext wounds with Dakin's .Apply Dakin's soaked gauze over wounds .Cover with ABD and wrap with soft chavez. Apply Light dusting of [place] Starch in web spaces of toes R foot. Air Fluidized mattress on bed (P200). Encourage and assist with repositioning at least every 2hours or as tolerated. Off-load heels with pillow. Goyo Osuna Apr 08, 2018 12:40
[2018-04-08] MEDS ORDERED: Dakin's 0.125% Soln (Quarter Strength) 16oz TOPIC SCH (12:44)
--- NOTE | 2018-04-08 16:29 | Nephrology Progress Note ---
Assessment/Plan Problem List: (1) Sepsis (2) Hyponatremia (3) Hyperkalemia Assessment HyperKalemia- HypoNatremia Sepsis / Leukocytosis Bipolar CAD HTN CVA Severe HypoAlbuminemia Mild Anemia h/o Rhabdo h/o Drug abuse h/o GB disease large ulcers to bilateral LEs. maggots noted. no discharge Plan Urine Studies Urine tox screen + opiates Stop AntiHypertensives as BP is low Antibiotics 2D echo resume eliquis saline per orders Subjective ROS Limited/Unobtainable: No Constitutional: Reports: malaise, weakness Objective Objective Last 24 Hour Vital Signs Date Time Temp Pulse Resp B/P (MAP) Pulse Ox O2 Delivery O2 Flow Rate FiO2 04/08/18 15:04 98.2 04/08/18 12:00 89 04/08/18 12:00 98.2 110 20 104/54 (71) 99 98.2 04/08/18 10:39 97.8 115 20 101/65 (77) 99 97.8 04/08/18 09:10 118 04/08/18 08:00 97.8 115 20 101/65 (77) 99 97.8 04/08/18 08:00 105 04/08/18 04:00 97.7 78 20 109/69 (82) 98 97.7 04/08/18 04:00 102 04/08/18 00:00 103 04/08/18 00:00 99.1 106 21 98/56 (70) 98 99.1 04/07/18 21:00 Room Air 04/07/18 20:16 91 20 Room Air 21 04/07/18 20:00 98.2 74 22 101/61 (74) 98 98.2 04/07/18 20:00 109 Intake and Output 04/07/18 04/08/18 18:59 06:59 Intake Total 855 ml 668.75 ml Output Total 400 ml 200 ml Balance 455 ml 468.75 ml Intake Oral 480 ml 200 ml IV Total 375 ml 468.75 ml Output Urine Total 400 ml 200 ml Laboratory Tests 04/08/18 08:45: White Blood Count 21.1H, Red Blood Count 3.64L, Hemoglobin 10.9L, Hematocrit 34.3L, Mean Corpuscular Volume 94, Mean Corpuscular Hemoglobin 30.0, Mean Corpuscular Hemoglobin Concent 31.9L, Red Cell Distribution Width 12.4, Platelet Count 232, Mean Platelet Volume 5.0L, Neutrophils (%) (Auto) , Lymphocytes (%) (Auto) , Monocytes (%) (Auto) , Eosinophils (%) (Auto) , Basophils (%) (Auto) , Differential Total Cells Counted 100, Neutrophils % ( Manual) 92H, Lymphocytes % (Manual) 3L, Monocytes % (Manual) 5, Eosinophils % ( Manual) 0, Basophils % (Manual) 0, Band Neutrophils 0, Platelet Estimate Adequate, Platelet Morphology Normal, Red Blood Cell Morphology Normal, Sodium Level 135L, Potassium Level 3.6, Chloride Level 104, Carbon Dioxide Level 25, Anion Gap 6, Blood Urea Nitrogen 19H, Creatinine 1.0, Estimat Glomerular Filtration Rate > 60, Glucose Level 111H, Hemoglobin A1c 5.5, Uric Acid 5.2, Calcium Level 8.6, Phosphorus Level 2.6, Magnesium Level 2.0, Iron Level 25L, Total Iron Binding Capacity 177L, Percent Iron Saturation 14L, Unsaturated Iron Binding 152, Ferritin 628H, Total Bilirubin 0.4, Gamma Glutamyl Transpeptidase 299H, Aspartate Amino Transf (AST/SGOT) 53H, Alanine Aminotransferase (ALT/SGPT ) 35, Alkaline Phosphatase 86, Total Creatine Kinase 183, Troponin I 0.033, Pro- B-Type Natriuretic Peptide 1635H, Total Protein 6.4, Albumin 1.8L, Globulin 4.6 , Albumin/Globulin Ratio 0.4L, Triglycerides Level 69, Cholesterol Level 116, LDL Cholesterol 51, HDL Cholesterol 44, Cholesterol/HDL Ratio 2.6L, Vitamin B12 Level 523, Folate 19.2, Thyroid Stimulating Hormone (TSH) 0.596, Vancomycin Level Trough 16.5H Height (Feet): 6 Height (Inches): 4.00 Weight (Pounds): 203 General Appearance: no apparent distress Cardiovascular: tachycardia Respiratory/Chest: decreased breath sounds Abdomen: distended Ruy Colvin MD Apr 08, 2018 16:29
[2018-04-08] MEDS: Metoprolol Tartrate 12.5mg TAB ORAL SCH (20:38)
[2018-04-08] MEDS: Eliquis 2.5mg tablet ORAL SCH (20:38)
[2018-04-09] VITALS: BP 118/75
[2018-04-09 04:00] VITALS: BP 147/80
--- NOTE | 2018-04-09 07:29 | Pulmonology Progress Note ---
Assessment/Plan Assessment/Plan ASSESSMENT Sepsis ( with severe leukocytosis ,tachycardia, fever and evidence of infection ) Maggot infestation bilateral leg ulcer with acute superinfection acute kidney injury, probably secondary to hypovolemia, provoked by dehydration electrolyte imbalance : hyponatremia and hyperkalemia hypertension diabetes mellitus history of CVA schizophrenia PLAN OF CARE telemetry floor. empiric antibiotic; follow up with culture blood cx prel negative, wound cx + GNB ID follows IV fluids monitor renal parameters, lytes, avoid nephrotoxic ,correct e/lytes as needed acute kidney injury resolved nephro follows wound care as per surgeon's recommendation BS management with sliding scale of insulin off anti HTN due to hypotension, close monitoring of BP . started on low dose of Midodrine as per nephro , BP stable resumed a/coag with Eliquis pain management supportive care bowel regimen DVT prophylaxis venous Duplex negative psych follows RO/ST provided per psych, on Seroquel case discussed and evaluated by supervising physician Subjective Allergies: Coded Allergies: MILK (Verified Allergy, Unknown, 02/02/18) Subjective leukocytosis trending down, afebrile Objective Last 24 Hour Vital Signs Date Time Temp Pulse Resp B/P (MAP) Pulse Ox O2 Delivery O2 Flow Rate FiO2 04/09/18 04:00 98.8 93 20 147/80 (102) 100 98.8 04/09/18 04:00 70 04/09/18 00:00 93 04/09/18 00:00 97.9 64 18 118/75 (89) 100 97.9 04/08/18 21:00 Room Air 04/08/18 20:38 86 119/76 04/08/18 20:16 86 18 Room Air 21 04/08/18 20:00 99 04/08/18 20:00 98.1 104 20 119/76 (90) 100 98.1 04/08/18 16:00 89 04/08/18 16:00 98.0 85 20 110/55 (73) 99 98.0 04/08/18 15:04 98.2 04/08/18 12:00 89 04/08/18 12:00 98.2 110 20 104/54 (71) 99 98.2 04/08/18 10:39 97.8 115 20 101/65 (77) 99 97.8 04/08/18 09:10 118 04/08/18 09:00 Room Air 10/20/18 08:26 102 18 Room Air 21 04/08/18 08:00 97.8 115 20 101/65 (77) 99 97.8 04/08/18 08:00 105 Intake and Output 04/08/18 04/09/18 19:00 07:00 Intake Total 890 ml 600 ml Output Total 600 ml 975 ml Balance 290 ml -375 ml Intake Oral 890 ml 600 ml Output Urine Total 600 ml 975 ml Objective General Appearance: no acute distress, bedridden AA male awake, responsive, HEENT: normocephalic, atraumatic, anicteric Respiratory/Chest: lungs clear, no respiratory distress Cardiovascular: tachycardia - ST with frequent PAC with underlying short episodes of a fib Abdomen: soft, non tender Extremities: trace edema BLE Skin: - bilateral lower leg ulcers 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: abnormal gait, alert, responsive Musculoskeletal: atrophy - BLE Microbiology Date/Time Source Procedure Growth Status 04/06/18 18:45 Blood Blood Culture - Preliminary NO GROWTH AFTER 48 HOURS Resulted 04/06/18 18:30 Blood Blood Culture - Preliminary NO GROWTH AFTER 48 HOURS Resulted 04/06/18 18:30 Wound Gram Stain - Final Resulted 04/06/18 18:30 Wound Culture - Preliminary Gram Negative Bacillus 1 Resulted Laboratory Tests 04/08/18 08:45: White Blood Count 21.1H, Red Blood Count 3.64L, Hemoglobin 10.9L, Hematocrit 34.3L, Mean Corpuscular Volume 94, Mean Corpuscular Hemoglobin 30.0, Mean Corpuscular Hemoglobin Concent 31.9L, Red Cell Distribution Width 12.4, Platelet Count 232, Mean Platelet Volume 5.0L, Neutrophils (%) (Auto) , Lymphocytes (%) (Auto) , Monocytes (%) (Auto) , Eosinophils (%) (Auto) , Basophils (%) (Auto) , Differential Total Cells Counted 100, Neutrophils % ( Manual) 92H, Lymphocytes % (Manual) 3L, Monocytes % (Manual) 5, Eosinophils % ( Manual) 0, Basophils % (Manual) 0, Band Neutrophils 0, Platelet Estimate Adequate, Platelet Morphology Normal, Red Blood Cell Morphology Normal, Sodium Level 135L, Potassium Level 3.6, Chloride Level 104, Carbon Dioxide Level 25, Anion Gap 6, Blood Urea Nitrogen 19H, Creatinine 1.0, Estimat Glomerular Filtration Rate > 60, Glucose Level 111H, Hemoglobin A1c 5.5, Uric Acid 5.2, Calcium Level 8.6, Phosphorus Level 2.6, Magnesium Level 2.0, Iron Level 25L, Total Iron Binding Capacity 177L, Percent Iron Saturation 14L, Unsaturated Iron Binding 152, Ferritin 628H, Total Bilirubin 0.4, Gamma Glutamyl Transpeptidase 299H, Aspartate Amino Transf (AST/SGOT) 53H, Alanine Aminotransferase (ALT/SGPT ) 35, Alkaline Phosphatase 86, Total Creatine Kinase 183, Troponin I 0.033, Pro- B-Type Natriuretic Peptide 1635H, Total Protein 6.4, Albumin 1.8L, Globulin 4.6 , Albumin/Globulin Ratio 0.4L, Triglycerides Level 69, Cholesterol Level 116, LDL Cholesterol 51, HDL Cholesterol 44, Cholesterol/HDL Ratio 2.6L, Vitamin B12 Level 523, Folate 19.2, Thyroid Stimulating Hormone (TSH) 0.596, Vancomycin Level Trough 16.5H Current Medications Medications (Trade) Dose Ordered Sig/Erlin Route PRN Reason Start Time Stop Time Status Last Admin Dose Admin Acetaminophen (Tylenol) 650 mg Q4H PRN ORAL fever 04/06/18 19:30 05/06/18 19:29 04/07/18 20:17 Albuterol/ Ipratropium (Albuterol/ Ipratropium) 3 ml Q4H PRN HHN Shortness of Breath 04/06/18 19:30 04/11/18 19:29 Apixaban (Eliquis) 2.5 mg Q12HR ORAL 04/08/18 21:00 05/08/18 20:59 04/08/18 20:38 Ascorbic Acid (Vitamin C) 500 mg DAILY ORAL 04/08/18 09:00 05/08/18 08:59 04/08/18 09:04 Cefepime HCl 2 gm/ Dextrose 110 ml @ 220 mls/hr EVERY 12 HOURS IV 04/06/18 21:00 04/13/18 20:59 04/08/18 20:40 Dextrose (Dextrose 50%) 25 ml STAT PRN IV Hypoglycemia 04/06/18 19:30 05/06/18 19:29 Dextrose (Dextrose 50%) 50 ml Q30M PRN IV Hypoglycemia 04/06/18 19:30 05/06/18 19:29 Digoxin (Lanoxin) 0.25 mg DAILY ORAL 04/07/18 09:00 05/07/18 08:59 04/08/18 09:10 Famotidine (Pepcid) 20 mg BID ORAL 04/07/18 18:00 05/07/18 17:59 04/08/18 18:24 Gabapentin (Neurontin) 100 mg THREE TIMES A DAY ORAL 04/07/18 09:00 05/07/18 08:59 04/08/18 18:24 Heparin Sodium (Porcine) (Heparin 5000 units/ml) 5,000 units EVERY 12 HOURS SUBQ 04/06/18 21:00 05/06/18 20:59 04/08/18 20:39 Hydralazine HCl (Apresoline) 25 mg Q4H PRN ORAL bp over 160 syst 04/07/18 15:00 05/07/18 14:59 Metoprolol Tartrate (Lopressor) 12.5 mg Q12HR ORAL 04/08/18 21:00 05/08/18 20:59 04/08/18 20:38 Metronidazole (Flagyl) 500 mg Q8H ORAL 04/07/18 16:00 04/14/18 15:59 04/08/18 23:43 Midodrine (Pro-Amatine) 2.5 mg THREE TIMES A DAY ORAL 04/08/18 18:00 05/08/18 17:59 04/08/18 18:23 Morphine Sulfate (Morphine Sulfate) 2 mg Q4H PRN IVP For Pain 04/08/18 16:23 04/13/18 16:22 04/08/18 23:49 Multivitamins Therapeutic (Therapeutic Multivitamin) 1 ea DAILY ORAL 04/08/18 09:00 05/08/18 08:59 04/08/18 09:05 Nitroglycerin (Ntg) 0.4 mg Q5M PRN SL Prn Chest Pain 04/06/18 19:30 05/06/18 19:29 Ondansetron HCl (Zofran) 4 mg Q6H PRN IVP Nausea & Vomiting 04/06/18 19:30 05/06/18 19:29 Polyethylene Glycol (Miralax) 17 gm DAILYPRN PRN ORAL Constipation 04/06/18 19:30 05/06/18 19:29 Quetiapine Fumarate (SEROquel) 100 mg BEDTIME ORAL 04/06/18 21:00 05/06/18 20:59 04/08/18 20:37 Sodium Hypochlorite (Dakin's Quarter Strength) 1 applic DAILY TOPIC 04/09/18 09:00 05/09/18 08:59 Sodium Chloride 1,000 ml @ 50 mls/hr Q20H IV 04/08/18 16:23 05/06/18 16:22 04/08/18 16:46 Temazepam (Restoril) 15 mg HSPRN PRN ORAL Insomnia 04/06/18 19:30 04/13/18 19:29 Vancomycin HCl (Vanco rx to dose) 1 ea DAILY PRN MISC rx to dose 04/06/18 20:45 05/06/18 20:44 Vancomycin HCl 1 gm/Dextrose 275 ml @ 183.708 mls/hr Q12H IVPB 04/07/18 10:00 04/12/18 09:59 04/08/18 22:08 Linsey Boo NP Apr 09, 2018 07:29
[2018-04-09 08:00] VITALS: BP 120/70
[2018-04-09] MEDS: Cefepime HCl 2 GM in D5W 110 ML IV SCH ×2 (08:01→20:21)
[2018-04-09] MEDS: metroNIDAZOLE 500mg tab ORAL SCH ×2 (08:02→16:52)
[2018-04-09] MEDS: Heparin 5000 units/ml inj SUBQ SCH ×2 (08:14→20:24)
[2018-04-09] MEDS: Metoprolol Tartrate 12.5mg TAB ORAL SCH ×2 (08:14→20:22)
[2018-04-09] MEDS: Ascorbic Acid 500mg tab ORAL SCH (08:15)
[2018-04-09] MEDS: Multivitamin w/Minerals tab ORAL SCH (08:15)
[2018-04-09] MEDS: Eliquis 2.5mg tablet ORAL SCH ×2 (08:15→20:22)
[2018-04-09] MEDS: Dakin's 0.125% Soln (Quarter Strength) 16oz TOPIC SCH (08:22)
[2018-04-09] MEDS: Morphine Sulfate 2mg/ml Inj IVP PRN ×3 (08:36→21:49)
--- NOTE | 2018-04-09 08:55 | Nephrology Progress Note ---
Assessment/Plan Problem List: (1) Sepsis (2) Hyponatremia (3) Hyperkalemia Assessment HyperKalemia- HypoNatremia Sepsis / Leukocytosis Bipolar CAD HTN CVA Severe HypoAlbuminemia Mild Anemia h/o Rhabdo h/o Drug abuse h/o GB disease large ulcers to bilateral LEs. maggots noted. no discharge Plan no labs today Urine Studies Urine tox screen + opiates Stop AntiHypertensives as BP is low Antibiotics 2D echo resume eliquis saline per orders Subjective ROS Limited/Unobtainable: No Constitutional: Reports: malaise Objective Objective Last 24 Hour Vital Signs Date Time Temp Pulse Resp B/P (MAP) Pulse Ox O2 Delivery O2 Flow Rate FiO2 04/09/18 08:36 97.7 04/09/18 08:14 80 120/70 04/09/18 08:13 80 04/09/18 08:00 97.7 80 18 120/70 (87) 100 97.7 04/09/18 07:25 92 20 Room Air 21 04/09/18 04:00 98.8 93 20 147/80 (102) 100 98.8 04/09/18 04:00 70 04/09/18 00:00 93 04/09/18 00:00 97.9 64 18 118/75 (89) 100 97.9 04/08/18 21:00 Room Air 04/08/18 20:38 86 119/76 04/08/18 20:16 86 18 Room Air 21 04/08/18 20:00 99 04/08/18 20:00 98.1 104 20 119/76 (90) 100 98.1 04/08/18 16:00 89 04/08/18 16:00 98.0 85 20 110/55 (73) 99 98.0 04/08/18 15:04 98.2 04/08/18 12:00 89 04/08/18 12:00 98.2 110 20 104/54 (71) 99 98.2 04/08/18 10:39 97.8 115 20 101/65 (77) 99 97.8 04/08/18 09:10 118 04/08/18 09:00 Room Air Intake and Output 04/08/18 04/09/18 19:00 07:00 Intake Total 890 ml 600 ml Output Total 600 ml 975 ml Balance 290 ml -375 ml Intake Oral 890 ml 600 ml Output Urine Total 600 ml 975 ml Height (Feet): 6 Height (Inches): 4.00 Weight (Pounds): 203 General Appearance: no apparent distress Objective no change Ruy Colvin MD Apr 09, 2018 08:55
[2018-04-09] MEDS: Vancomycin 1gm in D5W 275ml IVPB SCH ×2 (09:33→21:48)
--- NOTE | 2018-04-09 10:14 | Cardiology Progress Note ---
Assessment/Plan Status: stable Assessment/Plan Assessment: (1) Maggot infestation (2) Drug abuse (3) CAD (coronary artery disease) (4) HTN (hypertension) (5) CVA (cerebral vascular accident) (6) Bipolar 1 disorder (7) Shock liver (8) Leg wound, right (9) Sepsis (10) Hyponatremia (11) Infestation, maggots (12) Hyperkalemia (13) Renal insufficiency (14) Infected ulcer of skin Plan: Continue aspirin Norvasc and lisinopril on hold due to hypotension, restart once infection clears Continue Digoxin Continue to monitor electrolytes Telemetry -> ok to transfer to floor Tuesday IV Abx per ID Wound care CV stable Subjective Cardiovascular: Reports: no symptoms Respiratory: Reports: no symptoms Gastrointestinal/Abdominal: Reports: no symptoms Genitourinary: Reports: no symptoms Subjective No acute events, vitals stable, tachycardic from infection, BP stable, no pain, urine positive for opiates. Objective Last 24 Hour Vital Signs Date Time Temp Pulse Resp B/P (MAP) Pulse Ox O2 Delivery O2 Flow Rate FiO2 04/09/18 09:16 Room Air 04/09/18 09:06 97.7 04/09/18 08:36 97.7 04/09/18 08:14 80 120/70 04/09/18 08:13 80 04/09/18 08:00 97.7 80 18 120/70 (87) 100 97.7 04/09/18 07:25 92 20 Room Air 21 04/09/18 04:00 98.8 93 20 147/80 (102) 100 98.8 04/09/18 04:00 70 04/09/18 00:00 93 04/09/18 00:00 97.9 64 18 118/75 (89) 100 97.9 04/08/18 21:00 Room Air 04/08/18 20:38 86 119/76 04/08/18 20:16 86 18 Room Air 21 04/08/18 20:00 99 04/08/18 20:00 98.1 104 20 119/76 (90) 100 98.1 04/08/18 16:00 89 04/08/18 16:00 98.0 85 20 110/55 (73) 99 98.0 04/08/18 15:04 98.2 04/08/18 12:00 89 10/20/18 12:00 98.2 110 20 104/54 (71) 99 98.2 04/08/18 10:39 97.8 115 20 101/65 (77) 99 97.8 General Appearance: no apparent distress, alert EENT: PERRL/EOMI, normal ENT inspection Neck: non-tender, normal alignment, supple, normal inspection, no JVD Rhythm: NSR Cardiovascular: normal peripheral pulses, normal rate, regular rhythm Respiratory/Chest: chest wall non-tender, lungs clear, normal breath sounds Abdomen: normal bowel sounds, non tender, soft, no organomegaly, no mass Extremities: normal range of motion, non-tender Neurologic: telecommunications operator II-XII grossly normal, no motor/sensory deficits Intake and Output 04/08/18 04/09/18 19:00 07:00 Intake Total 890 ml 600 ml Output Total 600 ml 975 ml Balance 290 ml -375 ml Intake Oral 890 ml 600 ml Output Urine Total 600 ml 975 ml Microbiology Date/Time Source Procedure Growth Status 04/06/18 18:45 Blood Blood Culture - Preliminary NO GROWTH AFTER 48 HOURS Resulted 04/06/18 18:30 Blood Blood Culture - Preliminary NO GROWTH AFTER 48 HOURS Resulted 04/06/18 18:30 Wound Gram Stain - Final Resulted 04/06/18 18:30 Wound Culture - Preliminary Gram Negative Bacillus 1 Resulted 04/06/18 20:00 Nasal Nares MRSA Culture - Final Staphylococcus Aureus - Mrsa Complete 04/06/18 20:00 Rectum VRE Culture - Final Enterococcus Faecalis - Vre Complete Vinny Tobin MD Apr 09, 2018 10:14
--- NOTE | 2018-04-09 11:12 | General Surgery Progress Note ---
General Surgery-Progress Note Subjective Symptoms: improved Additional Comments large maggots noted on the floor yesterday with dressing changes. none noted today. Objective Last 24 Hour Vital Signs Date Time Temp Pulse Resp B/P (MAP) Pulse Ox O2 Delivery O2 Flow Rate FiO2 04/09/18 09:16 Room Air 04/09/18 09:06 97.7 04/09/18 08:36 97.7 04/09/18 08:14 80 120/70 04/09/18 08:13 80 04/09/18 08:00 114 04/09/18 08:00 97.7 80 18 120/70 (87) 100 97.7 04/09/18 07:25 92 20 Room Air 21 04/09/18 04:00 98.8 93 20 147/80 (102) 100 98.8 04/09/18 04:00 70 04/09/18 00:00 93 04/09/18 00:00 97.9 64 18 118/75 (89) 100 97.9 04/08/18 21:00 Room Air 04/08/18 20:38 86 119/76 04/08/18 20:16 86 18 Room Air 21 04/08/18 20:00 99 04/08/18 20:00 98.1 104 20 119/76 (90) 100 98.1 04/08/18 16:00 89 04/08/18 16:00 98.0 85 20 110/55 (73) 99 98.0 04/08/18 15:04 98.2 04/08/18 12:00 89 04/08/18 12:00 98.2 110 20 104/54 (71) 99 98.2 I&O Intake and Output 04/08/18 04/09/18 19:00 07:00 Intake Total 890 ml 600 ml Output Total 600 ml 975 ml Balance 290 ml -375 ml Intake Oral 890 ml 600 ml Output Urine Total 600 ml 975 ml Dressing: saturated Wound: other Drains: other Cardiovascular: RSR Respiratory: clear Abdomen: soft, flat, non-tender, present bowel sounds Extremities: other Laboratory Tests Test 04/09/18 10:20 C-Reactive Protein, Quantitative 7.6 mg/dL (0.00-0.90) H Plan Problems: (1) Maggot infestation Assessment & Plan: Pt presents with multiple ulcerations to both lower ext with maggots infestation. Wounds are irregular malodorous. Both lower ext. cool to touch.Toes necrotic with ulcerations 1st,2nd and 3rd metatarsals ulcerated. Maggots noted to web spaces of toes.Ulcers dorsal aspects of toes L foot.Web spaces of toes are dry . Full thickness pressure injury to sacrum with 50% slough,(+) epibole. Periwound dark .Wound malodorous. Wounds both lower ext cleansed with Dakin's then Dakin's soaked gauze placed over wounds, covered with ABD and wrapped with soft chavez. Powder applied in web spaces of toes. Tx.Plan: Cleanse both lower ext wounds with Dakin's .Apply Dakin's soaked gauze over wounds .Cover with ABD and wrap with soft chavez. Apply Light dusting of [place] Starch in web spaces of toes R foot. Air Fluidized mattress on bed (P200). Encourage and assist with repositioning at least every 2hours or as tolerated. Off-load heels with pillow. Goyo Osuna Apr 09, 2018 11:12
[2018-04-09] MEDS ORDERED: Albuterol/Ipratropium 3ml neb HHN PRN (11:30)
[2018-04-09 12:00] VITALS: BP 135/82
[2018-04-09 16:00] VITALS: BP 154/79
[2018-04-09 20:00] VITALS: BP 145/86
--- NOTE | 2018-04-09 21:43 | General Progress Note ---
Assessment/Plan Status: stable Assessment/Plan schizophrenia CVA -seroquel 100mg qhs -provided ro/st Subjective Date patient seen: Apr 08, 2018 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: Reports: anxiety, depressed, emotional problems Allergies: Coded Allergies: MILK (Verified Allergy, Unknown, 02/02/18) Objective Last 24 Hour Vital Signs Date Time Temp Pulse Resp B/P (MAP) Pulse Ox O2 Delivery O2 Flow Rate FiO2 04/09/18 20:22 71 145/80 04/09/18 20:06 90 04/09/18 20:00 98.2 69 20 145/86 (105) 98 98.2 04/09/18 17:21 98.1 04/09/18 16:51 98.1 04/09/18 16:00 84 04/09/18 16:00 98.1 76 20 154/79 (104) 98 98.1 04/09/18 12:00 87 04/09/18 12:00 97.7 78 20 135/82 (99) 93 97.7 04/09/18 09:16 Room Air 04/09/18 08:36 97.7 04/09/18 08:14 80 120/70 04/09/18 08:13 80 04/09/18 08:00 114 04/09/18 08:00 97.7 80 18 120/70 (87) 100 97.7 04/09/18 07:25 92 20 Room Air 21 04/09/18 04:00 98.8 93 20 147/80 (102) 100 98.8 04/09/18 04:00 70 04/09/18 00:00 93 04/09/18 00:00 97.9 64 18 118/75 (89) 100 97.9 Intake and Output 04/08/18 04/09/18 18:59 06:59 Intake Total 890 ml 600 ml Output Total 600 ml 975 ml Balance 290 ml -375 ml Intake Oral 890 ml 600 ml Output Urine Total 600 ml 975 ml Laboratory Tests 04/09/18 10:20: C-Reactive Protein, Quantitative 7.6H Height (Feet): 6 Height (Inches): 4.00 Weight (Pounds): 203 General Appearance: no apparent distress, alert, agitated Julissa Still MD Apr 09, 2018 21:43
--- NOTE | 2018-04-09 21:44 | General Progress Note ---
Assessment/Plan Status: stable, progressing Assessment/Plan schizophrenia CVA -seroquel 100mg qhs -provided ro/st Subjective Date patient seen: Apr 09, 2018 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: Reports: anxiety, depressed, emotional problems Allergies: Coded Allergies: MILK (Verified Allergy, Unknown, 02/02/18) Objective Last 24 Hour Vital Signs Date Time Temp Pulse Resp B/P (MAP) Pulse Ox O2 Delivery O2 Flow Rate FiO2 04/09/18 20:22 71 145/80 04/09/18 20:06 90 04/09/18 20:00 98.2 69 20 145/86 (105) 98 98.2 04/09/18 17:21 98.1 04/09/18 16:51 98.1 04/09/18 16:00 84 04/09/18 16:00 98.1 76 20 154/79 (104) 98 98.1 04/09/18 12:00 87 04/09/18 12:00 97.7 78 20 135/82 (99) 93 97.7 04/09/18 09:16 Room Air 04/09/18 08:36 97.7 04/09/18 08:14 80 120/70 04/09/18 08:13 80 04/09/18 08:00 114 04/09/18 08:00 97.7 80 18 120/70 (87) 100 97.7 04/09/18 07:25 92 20 Room Air 21 04/09/18 04:00 98.8 93 20 147/80 (102) 100 98.8 04/09/18 04:00 70 04/09/18 00:00 93 04/09/18 00:00 97.9 64 18 118/75 (89) 100 97.9 Intake and Output 04/08/18 04/09/18 18:59 06:59 Intake Total 890 ml 600 ml Output Total 600 ml 975 ml Balance 290 ml -375 ml Intake Oral 890 ml 600 ml Output Urine Total 600 ml 975 ml Laboratory Tests 04/09/18 10:20: C-Reactive Protein, Quantitative 7.6H Height (Feet): 6 Height (Inches): 4.00 Weight (Pounds): 203 General Appearance: no apparent distress, alert Neurologic: oriented x 3, responsive Julissa Still MD Apr 09, 2018 21:44
--- NOTE | 2018-04-09 22:21 | Diagnostic Imaging Report ---
APPROVED REPORT CPT Code: 25711 Present Symptoms Lower Extremity Pain: Right Comments: Technically difficult study due to pain BILATERAL: Imaging reveals a patent deep venous system bilaterally. There is no evidence of thrombus within the femoral, popliteal or tibial segments. The greater saphenous veins are also within normal limits. Doppler indicates normal spontaneous flow within these segments.
[2018-04-10] VITALS: BP 150/86
[2018-04-10] MEDS: metroNIDAZOLE 500mg tab ORAL SCH ×3 (00:14→15:25)
[2018-04-10 04:00] VITALS: BP 136/82
[2018-04-10 05:52] LABS: BASOPHILS % (AUTO) 0.7 % (0.0-2.0); EOSINOPHILS % (AUTO) 1.7 % (0.0-3.0); HEMATOCRIT 34.9 % (42.0-52.0); MEAN CORPUSCULAR VOLUME 94 FL (80-99); MONOCYTES % (AUTO) 12.4 % (1.0-10.0); NEUTROPHILS % (AUTO) 70.2 % (45.0-75.0); PLATELET COUNT 243 K/UL (150-450); RED BLOOD COUNT 3.71 M/UL (4.70-6.10); RED CELL DISTRIBUTION WIDTH 12.2 % (11.6-14.8); WHITE BLOOD COUNT 12.8 K/UL (4.8-10.8)
[2018-04-10 06:09] LABS: ALANINE AMINOTRANSFERASE 27 U/L (12-78); ALBUMIN 1.8 G/DL (3.4-5.0); ALBUMIN/GLOBULIN RATIO 0.4 (1.0-2.7); ALKALINE PHOSPHATASE 103 U/L (46-116); ANION GAP 5 mmol/L (5-15); ASPARTATE AMINO TRANSFERASE 49 U/L (15-37); BILIRUBIN,TOTAL 0.2 MG/DL (0.2-1.0); BLOOD UREA NITROGEN 25 mg/dL (7-18); CALCIUM 8.4 MG/DL (8.5-10.1); CARBON DIOXIDE 26 MMOL/L (21-32); CHLORIDE 107 MMOL/L (98-107); CREATININE 0.8 MG/DL (0.55-1.30); POTASSIUM 4.1 MMOL/L (3.5-5.1); SODIUM 137 MMOL/L (136-145)
[2018-04-10] MEDS: Morphine Sulfate 2mg/ml Inj IVP PRN ×2 (06:44→22:32)
[2018-04-10 08:00] VITALS: BP 136/86
[2018-04-10] MEDS: Cefepime HCl 2 GM in D5W 110 ML IV SCH ×2 (08:33→22:31)
[2018-04-10] MEDS: Eliquis 2.5mg tablet ORAL SCH ×2 (08:34→22:29)
[2018-04-10] MEDS: Ascorbic Acid 500mg tab ORAL SCH (08:34)
[2018-04-10] MEDS: Metoprolol Tartrate 12.5mg TAB ORAL SCH ×2 (08:35→22:30)
[2018-04-10] MEDS: Multivitamin w/Minerals tab ORAL SCH (08:35)
[2018-04-10] MEDS: Dakin's 0.125% Soln (Quarter Strength) 16oz TOPIC SCH (08:35)
[2018-04-10] MEDS: Heparin 5000 units/ml inj SUBQ SCH (08:39)
[2018-04-10] MEDS: Vancomycin 1gm in D5W 275ml IVPB SCH (10:46)
--- NOTE | 2018-04-10 11:35 | Infectious Diseases Prog Note ---
Assessment/Plan Assessment/Plan Assessment: Sepsis, improving -Bcx NTD Fever, Sp Leukocytosis, improving Chronic R leg ulcer w/ acute superinfection 04/06 wound cx Proteus, Kleb Ox, Morganella -01/2018 wound cx: MDR PsA ( S Imipenem; prob colonizer), MSSA Myasis Hx of SHock 01/2018 -rhabdomyolysis, shock liver Hx of Acute renal failure 01/2018 requiring temporary HD. HTN Bipolar dz Afib substance abuse CVA/TIA HLD CAD -NSTEMI 01/2018 SN[facility] resident Plan: -Continue empiric IV Flagyl and Cefepime # 5 , DC IV Vanco d# 5 -02/12 SP Meropenem #5 -02/08 SP Zosyn #6 -02/07 SP IV Vancomycin #4 -f/u cx -Monitor CBC/CMP, temperatures -wound care per hospital protocol -Aspiration precautions -Sx f/u Subjective Allergies: Coded Allergies: MILK (Verified Allergy, Unknown, 02/02/18) Subjective ' no maggots in the wound any more Objective Vital Signs Last 24 Hour Vital Signs Date Time Temp Pulse Resp B/P (MAP) Pulse Ox O2 Delivery O2 Flow Rate FiO2 04/10/18 09:00 Room Air 04/10/18 08:35 101 136/86 04/10/18 08:35 101 04/10/18 08:22 85 20 Room Air 21 04/10/18 08:00 98.2 101 18 136/86 (103) 97 98.2 04/10/18 07:58 104 04/10/18 04:00 98.2 82 20 136/82 (100) 97 98.2 04/10/18 03:51 95 04/10/18 00:00 97.9 83 20 150/86 (107) 96 97.9 04/09/18 23:29 91 04/09/18 21:50 69 20 Room Air 21 04/09/18 21:00 Room Air 04/09/18 20:22 71 145/80 04/09/18 20:06 90 04/09/18 20:00 98.2 69 20 145/86 (105) 98 98.2 04/09/18 17:21 98.1 04/09/18 16:51 98.1 04/09/18 16:00 84 04/09/18 16:00 98.1 76 20 154/79 (104) 98 98.1 04/09/18 12:00 87 04/09/18 12:00 97.7 78 20 135/82 (99) 93 97.7 Height (Feet): 6 Height (Inches): 4.00 Weight (Pounds): 203 HEENT: anicteric Respiratory/Chest: normal breath sounds Cardiovascular: regular rhythm Abdomen: no organomegaly Microbiology Date/Time Source Procedure Growth Status 04/09/18 09:25 Wound Gram Stain - Final Resulted 04/09/18 09:25 Wound Wound Culture - Preliminary Resulted Laboratory Tests Test 04/10/18 05:25 White Blood Count 12.8 K/UL (4.8-10.8) H Red Blood Count 3.71 M/UL (4.70-6.10) L Hemoglobin 11.0 G/DL (14.2-18.0) L Hematocrit 34.9 % (42.0-52.0) L Mean Corpuscular Volume 94 FL (80-99) Mean Corpuscular Hemoglobin 29.7 PG (27.0-31.0) Mean Corpuscular Hemoglobin Concent 31.6 G/DL (32.0-36.0) L Red Cell Distribution Width 12.2 % (11.6-14.8) Platelet Count 243 K/UL (150-450) Mean Platelet Volume 5.1 FL (6.5-10.1) L Neutrophils (%) (Auto) 70.2 % (45.0-75.0) Lymphocytes (%) (Auto) 15.0 % (20.0-45.0) L Monocytes (%) (Auto) 12.4 % (1.0-10.0) H Eosinophils (%) (Auto) 1.7 % (0.0-3.0) Basophils (%) (Auto) 0.7 % (0.0-2.0) Sodium Level 137 MMOL/L (136-145) Potassium Level 4.1 MMOL/L (3.5-5.1) Chloride Level 107 MMOL/L (98-107) Carbon Dioxide Level 26 MMOL/L (21-32) Anion Gap 5 mmol/L (5-15) Blood Urea Nitrogen 25 mg/dL (7-18) H Creatinine 0.8 MG/DL (0.55-1.30) Estimat Glomerular Filtration Rate > 60 mL/min (>60) Glucose Level 104 MG/DL (74-106) Calcium Level 8.4 MG/DL (8.5-10.1) L Phosphorus Level 2.0 MG/DL (2.5-4.9) L Magnesium Level 1.5 MG/DL (1.8-2.4) L Total Bilirubin 0.2 MG/DL (0.2-1.0) Aspartate Amino Transf (AST/SGOT) 49 U/L (15-37) H Alanine Aminotransferase (ALT/SGPT) 27 U/L (12-78) Alkaline Phosphatase 103 U/L (46-116) Pro-B-Type Natriuretic Peptide 1679 pg/mL (0-125) H Total Protein 6.1 G/DL (6.4-8.2) L Albumin 1.8 G/DL (3.4-5.0) L Globulin 4.3 g/dL Albumin/Globulin Ratio 0.4 (1.0-2.7) L Current Medications Medications (Trade) Dose Ordered Sig/Erlin Route PRN Reason Start Time Stop Time Status Last Admin Dose Admin Acetaminophen (Tylenol) 650 mg Q4H PRN ORAL fever 04/06/18 19:30 05/06/18 19:29 04/07/18 20:17 Albuterol/ Ipratropium (Albuterol/ Ipratropium) 3 ml Q4H PRN HHN Shortness of Breath 04/09/18 11:30 04/14/18 11:29 Apixaban (Eliquis) 2.5 mg Q12HR ORAL 04/08/18 21:00 05/08/18 20:59 04/10/18 08:34 Ascorbic Acid (Vitamin C) 500 mg DAILY ORAL 04/08/18 09:00 05/08/18 08:59 04/10/18 08:34 Cefepime HCl 2 gm/ Dextrose 110 ml @ 220 mls/hr EVERY 12 HOURS IV 04/06/18 21:00 04/13/18 20:59 04/10/18 08:33 Dextrose (Dextrose 50%) 25 ml STAT PRN IV Hypoglycemia 04/06/18 19:30 05/06/18 19:29 Dextrose (Dextrose 50%) 50 ml Q30M PRN IV Hypoglycemia 04/06/18 19:30 05/06/18 19:29 Digoxin (Lanoxin) 0.25 mg DAILY ORAL 04/07/18 09:00 05/07/18 08:59 04/10/18 08:35 Famotidine (Pepcid) 20 mg BID ORAL 04/07/18 18:00 05/07/18 17:59 04/10/18 08:34 Gabapentin (Neurontin) 100 mg THREE TIMES A DAY ORAL 04/07/18 09:00 05/07/18 08:59 04/10/18 08:34 Heparin Sodium (Porcine) (Heparin 5000 units/ml) 5,000 units EVERY 12 HOURS SUBQ 04/06/18 21:00 05/06/18 20:59 04/10/18 08:39 Hydralazine HCl (Apresoline) 25 mg Q4H PRN ORAL bp over 160 syst 04/07/18 15:00 05/07/18 14:59 Metoprolol Tartrate (Lopressor) 12.5 mg Q12HR ORAL 04/08/18 21:00 05/08/18 20:59 04/10/18 08:35 Metronidazole (Flagyl) 500 mg Q8H ORAL 04/07/18 16:00 04/14/18 15:59 04/10/18 08:33 Midodrine (Pro-Amatine) 2.5 mg THREE TIMES A DAY ORAL 04/08/18 18:00 05/08/18 17:59 04/10/18 08:34 Morphine Sulfate (Morphine Sulfate) 2 mg Q4H PRN IVP For Pain 04/08/18 16:23 04/13/18 16:22 04/10/18 06:44 Multivitamins Therapeutic (Therapeutic Multivitamin) 1 ea DAILY ORAL 04/08/18 09:00 05/08/18 08:59 04/10/18 08:35 Nitroglycerin (Ntg) 0.4 mg Q5M PRN SL Prn Chest Pain 04/06/18 19:30 05/06/18 19:29 Ondansetron HCl (Zofran) 4 mg Q6H PRN IVP Nausea & Vomiting 04/06/18 19:30 05/06/18 19:29 04/09/18 20:30 Polyethylene Glycol (Miralax) 17 gm DAILYPRN PRN ORAL Constipation 04/06/18 19:30 05/06/18 19:29 Quetiapine Fumarate (SEROquel) 100 mg BEDTIME ORAL 04/06/18 21:00 05/06/18 20:59 04/09/18 20:22 Sodium Hypochlorite (Dakin's Quarter Strength) 1 applic DAILY TOPIC 04/09/18 09:00 05/09/18 08:59 04/10/18 08:35 Sodium Chloride 1,000 ml @ 50 mls/hr Q20H IV 04/08/18 16:23 05/06/18 16:22 04/09/18 09:33 Temazepam (Restoril) 15 mg HSPRN PRN ORAL Insomnia 04/06/18 19:30 04/13/18 19:29 Vancomycin HCl (Vanco rx to dose) 1 ea DAILY PRN MISC rx to dose 04/06/18 20:45 05/06/18 20:44 Vancomycin HCl 1 gm/Dextrose 275 ml @ 183.708 mls/hr Q12H IVPB 04/07/18 10:00 04/12/18 09:59 04/10/18 10:46 Akil Parker MD Apr 10, 2018 11:35
[2018-04-10 12:00] VITALS: BP 129/82
--- NOTE | 2018-04-10 12:01 | General Surgery Progress Note ---
General Surgery-Progress Note Subjective Additional Comments leukocytosis 12k. improving. less pain. no n/v/f/c. per report maggots still noted on floor and around wound Objective Last 24 Hour Vital Signs Date Time Temp Pulse Resp B/P (MAP) Pulse Ox O2 Delivery O2 Flow Rate FiO2 04/10/18 09:00 Room Air 04/10/18 08:35 101 136/86 04/10/18 08:35 101 04/10/18 08:22 85 20 Room Air 21 04/10/18 08:00 98.2 101 18 136/86 (103) 97 98.2 04/10/18 07:58 104 04/10/18 04:00 98.2 82 20 136/82 (100) 97 98.2 04/10/18 03:51 95 04/10/18 00:00 97.9 83 20 150/86 (107) 96 97.9 04/09/18 23:29 91 04/09/18 21:50 69 20 Room Air 21 04/09/18 21:00 Room Air 04/09/18 20:22 71 145/80 04/09/18 20:06 90 04/09/18 20:00 98.2 69 20 145/86 (105) 98 98.2 04/09/18 17:21 98.1 04/09/18 16:51 98.1 04/09/18 16:00 84 04/09/18 16:00 98.1 76 20 154/79 (104) 98 98.1 I&O Intake and Output 04/09/18 04/10/18 19:00 07:00 Intake Total 1490 ml 1417.416 ml Output Total 800 ml 650 ml Balance 690 ml 767.416 ml Intake Oral 1440 ml 480 ml IV Total 50 ml 937.416 ml Output Urine Total 800 ml 650 ml # Bowel Movements 1 2 Dressing: saturated Wound: other Drains: other Cardiovascular: RSR Respiratory: clear Abdomen: soft, non-tender, present bowel sounds Extremities: other Laboratory Tests Test 04/10/18 05:25 White Blood Count 12.8 K/UL (4.8-10.8) H Red Blood Count 3.71 M/UL (4.70-6.10) L Hemoglobin 11.0 G/DL (14.2-18.0) L Hematocrit 34.9 % (42.0-52.0) L Mean Corpuscular Volume 94 FL (80-99) Mean Corpuscular Hemoglobin 29.7 PG (27.0-31.0) Mean Corpuscular Hemoglobin Concent 31.6 G/DL (32.0-36.0) L Red Cell Distribution Width 12.2 % (11.6-14.8) Platelet Count 243 K/UL (150-450) Mean Platelet Volume 5.1 FL (6.5-10.1) L Neutrophils (%) (Auto) 70.2 % (45.0-75.0) Lymphocytes (%) (Auto) 15.0 % (20.0-45.0) L Monocytes (%) (Auto) 12.4 % (1.0-10.0) H Eosinophils (%) (Auto) 1.7 % (0.0-3.0) Basophils (%) (Auto) 0.7 % (0.0-2.0) Sodium Level 137 MMOL/L (136-145) Potassium Level 4.1 MMOL/L (3.5-5.1) Chloride Level 107 MMOL/L (98-107) Carbon Dioxide Level 26 MMOL/L (21-32) Anion Gap 5 mmol/L (5-15) Blood Urea Nitrogen 25 mg/dL (7-18) H Creatinine 0.8 MG/DL (0.55-1.30) Estimat Glomerular Filtration Rate > 60 mL/min (>60) Glucose Level 104 MG/DL (74-106) Calcium Level 8.4 MG/DL (8.5-10.1) L Phosphorus Level 2.0 MG/DL (2.5-4.9) L Magnesium Level 1.5 MG/DL (1.8-2.4) L Total Bilirubin 0.2 MG/DL (0.2-1.0) Aspartate Amino Transf (AST/SGOT) 49 U/L (15-37) H Alanine Aminotransferase (ALT/SGPT) 27 U/L (12-78) Alkaline Phosphatase 103 U/L (46-116) Pro-B-Type Natriuretic Peptide 1679 pg/mL (0-125) H Total Protein 6.1 G/DL (6.4-8.2) L Albumin 1.8 G/DL (3.4-5.0) L Globulin 4.3 g/dL Albumin/Globulin Ratio 0.4 (1.0-2.7) L Plan Problems: (1) Maggot infestation Assessment & Plan: Pt presents with multiple ulcerations to both lower ext with maggots infestation. Wounds are irregular malodorous. Both lower ext. cool to touch.Toes necrotic with ulcerations 1st,2nd and 3rd metatarsals ulcerated. Maggots noted to web spaces of toes.Ulcers dorsal aspects of toes L foot.Web spaces of toes are dry . Full thickness pressure injury to sacrum with 50% slough,(+) epibole. Periwound dark .Wound malodorous. Wounds both lower ext cleansed with Dakin's then Dakin's soaked gauze placed over wounds, covered with ABD and wrapped with soft chavez. Powder applied in web spaces of toes. Tx.Plan: Cleanse both lower ext wounds with Dakin's .Apply Dakin's soaked gauze over wounds .Cover with ABD and wrap with soft chavez. Apply Light dusting of V[place]ant Starch in web spaces of toes R foot. Air Fluidized mattress on bed ([id number]). Encourage and assist with repositioning at least every 2hours or as tolerated. Off-load heels with pillow. Goyo Osuna Apr 10, 2018 12:01
[2018-04-10] MEDS ORDERED: Sodium Phosphate 30 MM in NS 275 ML IV ONE (14:00)
--- NOTE | 2018-04-10 14:36 | Nephrology Progress Note ---
Assessment/Plan Problem List: (1) Sepsis (2) Hyponatremia (3) Hyperkalemia Assessment HyperKalemia- HypoNatremia Sepsis / Leukocytosis Bipolar CAD HTN CVA Severe HypoAlbuminemia Mild Anemia h/o Rhabdo h/o Drug abuse h/o GB disease large ulcers to bilateral LEs. maggots noted. no discharge Plan Phos and Mag supplement Urine Studies Urine tox screen + opiates Stop AntiHypertensives as BP is low Antibiotics 2D echo resume eliquis saline per orders Subjective ROS Limited/Unobtainable: No Constitutional: Reports: malaise, weakness Objective Objective Last 24 Hour Vital Signs Date Time Temp Pulse Resp B/P (MAP) Pulse Ox O2 Delivery O2 Flow Rate FiO2 04/10/18 12:00 97.9 99 18 129/82 (98) 97 97.9 04/10/18 11:48 72 04/10/18 09:00 Room Air 04/10/18 08:35 101 136/86 04/10/18 08:35 101 04/10/18 08:22 85 20 Room Air 21 04/10/18 08:00 98.2 101 18 136/86 (103) 97 98.2 04/10/18 07:58 104 04/10/18 04:00 98.2 82 20 136/82 (100) 97 98.2 04/10/18 03:51 95 04/10/18 00:00 97.9 83 20 150/86 (107) 96 97.9 04/09/18 23:29 91 04/09/18 21:50 69 20 Room Air 21 04/09/18 21:00 Room Air 04/09/18 20:22 71 145/80 04/09/18 20:06 90 04/09/18 20:00 98.2 69 20 145/86 (105) 98 98.2 04/09/18 17:21 98.1 04/09/18 16:51 98.1 04/09/18 16:00 84 04/09/18 16:00 98.1 76 20 154/79 (104) 98 98.1 Intake and Output 04/09/18 04/10/18 19:00 07:00 Intake Total 1490 ml 1417.416 ml Output Total 800 ml 650 ml Balance 690 ml 767.416 ml Intake Oral 1440 ml 480 ml IV Total 50 ml 937.416 ml Output Urine Total 800 ml 650 ml # Bowel Movements 1 2 Laboratory Tests 04/10/18 05:25: White Blood Count 12.8H, Red Blood Count 3.71L, Hemoglobin 11.0L, Hematocrit 34.9L, Mean Corpuscular Volume 94, Mean Corpuscular Hemoglobin 29.7, Mean Corpuscular Hemoglobin Concent 31.6L, Red Cell Distribution Width 12.2, Platelet Count 243, Mean Platelet Volume 5.1L, Neutrophils (%) (Auto) 70.2, Lymphocytes (%) (Auto) 15.0L, Monocytes (%) (Auto) 12.4H, Eosinophils (%) (Auto ) 1.7, Basophils (%) (Auto) 0.7, Sodium Level 137, Potassium Level 4.1, Chloride Level 107, Carbon Dioxide Level 26, Anion Gap 5, Blood Urea Nitrogen 25H, Creatinine 0.8, Estimat Glomerular Filtration Rate > 60, Glucose Level 104 , Calcium Level 8.4L, Phosphorus Level 2.0L, Magnesium Level 1.5L, Total Bilirubin 0.2, Aspartate Amino Transf (AST/SGOT) 49H, Alanine Aminotransferase ( ALT/SGPT) 27, Alkaline Phosphatase 103, Pro-B-Type Natriuretic Peptide 1679H, Total Protein 6.1L, Albumin 1.8L, Globulin 4.3, Albumin/Globulin Ratio 0.4L Height (Feet): 6 Height (Inches): 4.00 Weight (Pounds): 203 General Appearance: no apparent distress Cardiovascular: normal rate Respiratory/Chest: lungs clear Abdomen: soft Objective no change Ruy Colvin MD Apr 10, 2018 14:36
[2018-04-10 16:00] VITALS: BP 153/85
[2018-04-10] MEDS ORDERED: Phospha 250 Neutral tab ORAL SCH (18:00)
[2018-04-10 20:00] VITALS: BP 149/88
[2018-04-10] MEDS ORDERED: Heparin 5000 units/ml inj SUBQ SCH (21:00)
[2018-04-10] MEDS ORDERED: Albuterol/Ipratropium 3ml neb HHN PRN (21:19)
[2018-04-10] MEDS ORDERED: Nitroglycerin Subl 0.4mg tab SL PRN (21:20)
[2018-04-10] MEDS ORDERED: HydrALAZINE 25mg tab ORAL PRN (21:20)
[2018-04-10] MEDS ORDERED: Miralax 17gm pkt ORAL PRN (21:20)
--- NOTE | 2018-04-10 23:11 | Cardiology Progress Note ---
Assessment/Plan Status: stable Assessment/Plan Assessment: (1) Maggot infestation (2) Drug abuse (3) CAD (coronary artery disease) (4) HTN (hypertension) (5) CVA (cerebral vascular accident) (6) Bipolar 1 disorder (7) Shock liver (8) Leg wound, right (9) Sepsis (10) Hyponatremia (11) Infestation, maggots (12) Hyperkalemia (13) Renal insufficiency (14) Infected ulcer of skin Plan: Continue aspirin Norvasc and lisinopril on hold due to hypotension, restart once infection clears Continue Digoxin Continue to monitor electrolytes Telemetry -> ok to transfer to floor Tuesday IV Abx per ID Wound care CV stable Subjective Cardiovascular: Reports: no symptoms Respiratory: Reports: no symptoms Gastrointestinal/Abdominal: Reports: no symptoms Genitourinary: Reports: no symptoms Subjective No acute events, vitals stable, tachycardic from infection, BP stable, no pain, urine positive for opiates. Transferred to floor. WBC coming down. No complaints , sleeping comfortably Objective Last 24 Hour Vital Signs Date Time Temp Pulse Resp B/P (MAP) Pulse Ox O2 Delivery O2 Flow Rate FiO2 04/10/18 22:32 97.7 04/10/18 22:30 76 149/88 04/10/18 20:01 76 20 Room Air 21 04/10/18 20:00 97.7 88 20 149/88 (108) 99 97.7 04/10/18 16:00 98.2 89 20 153/85 (107) 99 98.2 04/10/18 15:14 83 04/10/18 12:00 97.9 99 18 129/82 (98) 97 97.9 04/10/18 11:48 72 04/10/18 09:00 Room Air 04/10/18 08:35 101 136/86 04/10/18 08:35 101 04/10/18 08:22 85 20 Room Air 21 04/10/18 08:00 98.2 101 18 136/86 (103) 97 98.2 04/10/18 07:58 104 04/10/18 04:00 98.2 82 20 136/82 (100) 97 98.2 04/10/18 03:51 95 04/10/18 00:00 97.9 83 20 150/86 (107) 96 97.9 04/09/18 23:29 91 General Appearance: no apparent distress, alert EENT: PERRL/EOMI, normal ENT inspection, TMs normal, pharynx normal Neck: non-tender, normal alignment, supple, normal inspection, no JVD Rhythm: NSR Cardiovascular: normal peripheral pulses, normal rate, regularly irregular Respiratory/Chest: chest wall non-tender, lungs clear, normal breath sounds, no respiratory distress Abdomen: normal bowel sounds, non tender, soft, no organomegaly Extremities: normal range of motion, non-tender Neurologic: supervisor ore dressing II-XII grossly normal Intake and Output 04/09/18 04/10/18 18:59 06:59 Intake Total 1440 ml 1467.416 ml Output Total 800 ml 650 ml Balance 640 ml 817.416 ml Intake Oral 1440 ml 480 ml IV Total 987.416 ml Output Urine Total 800 ml 650 ml # Bowel Movements 1 2 Laboratory Tests Test 04/10/18 05:25 White Blood Count 12.8 K/UL (4.8-10.8) H Red Blood Count 3.71 M/UL (4.70-6.10) L Hemoglobin 11.0 G/DL (14.2-18.0) L Hematocrit 34.9 % (42.0-52.0) L Mean Corpuscular Volume 94 FL (80-99) Mean Corpuscular Hemoglobin 29.7 PG (27.0-31.0) Mean Corpuscular Hemoglobin Concent 31.6 G/DL (32.0-36.0) L Red Cell Distribution Width 12.2 % (11.6-14.8) Platelet Count 243 K/UL (150-450) Mean Platelet Volume 5.1 FL (6.5-10.1) L Neutrophils (%) (Auto) 70.2 % (45.0-75.0) Lymphocytes (%) (Auto) 15.0 % (20.0-45.0) L Monocytes (%) (Auto) 12.4 % (1.0-10.0) H Eosinophils (%) (Auto) 1.7 % (0.0-3.0) Basophils (%) (Auto) 0.7 % (0.0-2.0) Sodium Level 137 MMOL/L (136-145) Potassium Level 4.1 MMOL/L (3.5-5.1) Chloride Level 107 MMOL/L (98-107) Carbon Dioxide Level 26 MMOL/L (21-32) Anion Gap 5 mmol/L (5-15) Blood Urea Nitrogen 25 mg/dL (7-18) H Creatinine 0.8 MG/DL (0.55-1.30) Estimat Glomerular Filtration Rate > 60 mL/min (>60) Glucose Level 104 MG/DL (74-106) Calcium Level 8.4 MG/DL (8.5-10.1) L Phosphorus Level 2.0 MG/DL (2.5-4.9) L Magnesium Level 1.5 MG/DL (1.8-2.4) L Total Bilirubin 0.2 MG/DL (0.2-1.0) Aspartate Amino Transf (AST/SGOT) 49 U/L (15-37) H Alanine Aminotransferase (ALT/SGPT) 27 U/L (12-78) Alkaline Phosphatase 103 U/L (46-116) Pro-B-Type Natriuretic Peptide 1679 pg/mL (0-125) H Total Protein 6.1 G/DL (6.4-8.2) L Albumin 1.8 G/DL (3.4-5.0) L Globulin 4.3 g/dL Albumin/Globulin Ratio 0.4 (1.0-2.7) L Microbiology Date/Time Source Procedure Growth Status 04/09/18 09:25 Wound Gram Stain - Final Resulted 04/09/18 09:25 Wound Wound Culture - Preliminary Resulted Vinny Tobin MD Apr 10, 2018 23:11
[2018-04-11] VITALS: BP 134/89
--- NOTE | 2018-04-11 00:05 | General Progress Note ---
Assessment/Plan Status: stable, progressing Assessment/Plan schizophrenia CVA -seroquel 100mg qhs -provided ro/st Subjective Date patient seen: Apr 10, 2018 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: Reports: anxiety, depressed, emotional problems Allergies: Coded Allergies: MILK (Verified Allergy, Unknown, 02/02/18) Objective Last 24 Hour Vital Signs Date Time Temp Pulse Resp B/P (MAP) Pulse Ox O2 Delivery O2 Flow Rate FiO2 04/10/18 23:02 97.7 04/10/18 22:32 97.7 04/10/18 22:30 76 149/88 04/10/18 21:00 Room Air 04/10/18 20:01 76 20 Room Air 21 04/10/18 20:00 97.7 88 20 149/88 (108) 99 97.7 04/10/18 16:00 98.2 89 20 153/85 (107) 99 98.2 04/10/18 15:14 83 04/10/18 12:00 97.9 99 18 129/82 (98) 97 97.9 04/10/18 11:48 72 04/10/18 09:00 Room Air 04/10/18 08:35 101 136/86 04/10/18 08:35 101 04/10/18 08:22 85 20 Room Air 21 04/10/18 08:00 98.2 101 18 136/86 (103) 97 98.2 04/10/18 07:58 104 04/10/18 04:00 98.2 82 20 136/82 (100) 97 98.2 04/10/18 03:51 95 Intake and Output 04/10/18 04/11/18 18:59 06:59 Intake Total 1870 ml 110 ml Output Total 300 ml Balance 1570 ml 110 ml Intake Oral 1320 ml IV Total 550 ml 110 ml Output Urine Total 300 ml # Bowel Movements 1 Laboratory Tests 04/10/18 05:25: White Blood Count 12.8H, Red Blood Count 3.71L, Hemoglobin 11.0L, Hematocrit 34.9L, Mean Corpuscular Volume 94, Mean Corpuscular Hemoglobin 29.7, Mean Corpuscular Hemoglobin Concent 31.6L, Red Cell Distribution Width 12.2, Platelet Count 243, Mean Platelet Volume 5.1L, Neutrophils (%) (Auto) 70.2, Lymphocytes (%) (Auto) 15.0L, Monocytes (%) (Auto) 12.4H, Eosinophils (%) (Auto ) 1.7, Basophils (%) (Auto) 0.7, Sodium Level 137, Potassium Level 4.1, Chloride Level 107, Carbon Dioxide Level 26, Anion Gap 5, Blood Urea Nitrogen 25H, Creatinine 0.8, Estimat Glomerular Filtration Rate > 60, Glucose Level 104 , Calcium Level 8.4L, Phosphorus Level 2.0L, Magnesium Level 1.5L, Total Bilirubin 0.2, Aspartate Amino Transf (AST/SGOT) 49H, Alanine Aminotransferase ( ALT/SGPT) 27, Alkaline Phosphatase 103, Pro-B-Type Natriuretic Peptide 1679H, Total Protein 6.1L, Albumin 1.8L, Globulin 4.3, Albumin/Globulin Ratio 0.4L Height (Feet): 6 Height (Inches): 4.00 Weight (Pounds): 203 General Appearance: no apparent distress, alert, confused Julissa Still MD Apr 11, 2018 00:05
[2018-04-11] MEDS: metroNIDAZOLE 500mg tab ORAL SCH ×2 (00:44→09:05)
[2018-04-11 04:00] VITALS: BP 148/83
[2018-04-11] MEDS: Morphine Sulfate 2mg/ml Inj IVP PRN ×3 (05:12→13:24)
[2018-04-11 07:23] LABS: BASOPHILS % (AUTO) 0.8 % (0.0-2.0); EOSINOPHILS % (AUTO) 2.6 % (0.0-3.0); HEMATOCRIT 34.9 % (42.0-52.0); HEMOGLOBIN 11.1 G/DL (14.2-18.0); LYMPHOCYTES % (AUTO) 16.6 % (20.0-45.0); MEAN CORPUSCULAR VOLUME 95 FL (80-99); MONOCYTES % (AUTO) 8.7 % (1.0-10.0); NEUTROPHILS % (AUTO) 71.3 % (45.0-75.0); PLATELET COUNT 225 K/UL (150-450); RED BLOOD COUNT 3.65 M/UL (4.70-6.10); RED CELL DISTRIBUTION WIDTH 12.3 % (11.6-14.8); WHITE BLOOD COUNT 12.1 K/UL (4.8-10.8)
[2018-04-11 07:39] LABS: ALANINE AMINOTRANSFERASE 26 U/L (12-78); ALBUMIN 1.8 G/DL (3.4-5.0); ALBUMIN/GLOBULIN RATIO 0.4 (1.0-2.7); ALKALINE PHOSPHATASE 103 U/L (46-116); ANION GAP 3 mmol/L (5-15); ASPARTATE AMINO TRANSFERASE 45 U/L (15-37); BILIRUBIN,TOTAL 0.3 MG/DL (0.2-1.0); BLOOD UREA NITROGEN 18 mg/dL (7-18); CALCIUM 8.3 MG/DL (8.5-10.1); CARBON DIOXIDE 29 MMOL/L (21-32); CHLORIDE 106 MMOL/L (98-107); CREATININE 0.8 MG/DL (0.55-1.30); PHOSPHORUS 2.5 MG/DL (2.5-4.9); POTASSIUM 3.8 MMOL/L (3.5-5.1); SODIUM 138 MMOL/L (136-145)
[2018-04-11 08:00] VITALS: BP 141/96
--- NOTE | 2018-04-11 08:32 | General Surgery Progress Note ---
General Surgery-Progress Note Subjective Symptoms: tolerating diet, passing flatus Additional Comments no acute events. doing well. Objective Last 24 Hour Vital Signs Date Time Temp Pulse Resp B/P (MAP) Pulse Ox O2 Delivery O2 Flow Rate FiO2 04/11/18 07:05 81 20 Room Air 21 04/11/18 05:42 97.9 04/11/18 05:12 97.9 04/11/18 04:00 97.7 81 20 148/83 (104) 100 97.7 04/11/18 00:00 97.9 65 20 134/89 (104) 98 97.9 04/10/18 22:32 97.7 04/10/18 22:30 76 149/88 04/10/18 21:00 Room Air 04/10/18 20:01 76 20 Room Air 21 04/10/18 20:00 97.7 88 20 149/88 (108) 99 97.7 04/10/18 16:00 98.2 89 20 153/85 (107) 99 98.2 04/10/18 15:14 83 04/10/18 12:00 97.9 99 18 129/82 (98) 97 97.9 04/10/18 11:48 72 04/10/18 09:00 Room Air 04/10/18 08:35 101 136/86 04/10/18 08:35 101 I&O Intake and Output 04/10/18 04/11/18 19:00 07:00 Intake Total 1870 ml 510 ml Output Total 300 ml Balance 1570 ml 510 ml Intake Oral 1320 ml IV Total 550 ml 510 ml Output Urine Total 300 ml # Voids 4 # Bowel Movements 1 1 Dressing: saturated Wound: other Drains: other Cardiovascular: RSR Respiratory: clear Abdomen: soft, flat, non-tender, present bowel sounds Extremities: other Laboratory Tests Test 04/11/18 06:25 White Blood Count 12.1 K/UL (4.8-10.8) H Red Blood Count 3.65 M/UL (4.70-6.10) L Hemoglobin 11.1 G/DL (14.2-18.0) L Hematocrit 34.9 % (42.0-52.0) L Mean Corpuscular Volume 95 FL (80-99) Mean Corpuscular Hemoglobin 30.2 PG (27.0-31.0) Mean Corpuscular Hemoglobin Concent 31.7 G/DL (32.0-36.0) L Red Cell Distribution Width 12.3 % (11.6-14.8) Platelet Count 225 K/UL (150-450) Mean Platelet Volume 4.7 FL (6.5-10.1) L Neutrophils (%) (Auto) 71.3 % (45.0-75.0) Lymphocytes (%) (Auto) 16.6 % (20.0-45.0) L Monocytes (%) (Auto) 8.7 % (1.0-10.0) Eosinophils (%) (Auto) 2.6 % (0.0-3.0) Basophils (%) (Auto) 0.8 % (0.0-2.0) Sodium Level 138 MMOL/L (136-145) Potassium Level 3.8 MMOL/L (3.5-5.1) Chloride Level 106 MMOL/L (98-107) Carbon Dioxide Level 29 MMOL/L (21-32) Anion Gap 3 mmol/L (5-15) L Blood Urea Nitrogen 18 mg/dL (7-18) Creatinine 0.8 MG/DL (0.55-1.30) Estimat Glomerular Filtration Rate > 60 mL/min (>60) Glucose Level 124 MG/DL (74-106) H Calcium Level 8.3 MG/DL (8.5-10.1) L Phosphorus Level 2.5 MG/DL (2.5-4.9) Magnesium Level 2.1 MG/DL (1.8-2.4) Total Bilirubin 0.3 MG/DL (0.2-1.0) Aspartate Amino Transf (AST/SGOT) 45 U/L (15-37) H Alanine Aminotransferase (ALT/SGPT) 26 U/L (12-78) Alkaline Phosphatase 103 U/L (46-116) Total Protein 6.1 G/DL (6.4-8.2) L Albumin 1.8 G/DL (3.4-5.0) L Globulin 4.3 g/dL Albumin/Globulin Ratio 0.4 (1.0-2.7) L Plan Problems: (1) Maggot infestation Assessment & Plan: Pt presents with multiple ulcerations to both lower ext with maggots infestation. Wounds are irregular malodorous. Both lower ext. cool to touch.Toes necrotic with ulcerations 1st,2nd and 3rd metatarsals ulcerated. Maggots noted to web spaces of toes.Ulcers dorsal aspects of toes L foot.Web spaces of toes are dry . Full thickness pressure injury to sacrum with 50% slough,(+) epibole. Periwound dark .Wound malodorous. Wounds both lower ext cleansed with Dakin's then Dakin's soaked gauze placed over wounds, covered with ABD and wrapped with soft chavez. Powder applied in web spaces of toes. slowly improving leukocytosis improving still maggots but less? Tx.Plan: Cleanse both lower ext wounds with Dakin's .Apply Dakin's soaked gauze over wounds .Cover with ABD and wrap with soft chavez. Apply Light dusting of [place] Starch in web spaces of toes R foot. Air Fluidized mattress on bed ([id number]). Encourage and assist with repositioning at least every 2hours or as tolerated. Off-load heels with pillow. Goyo Osuna Apr 11, 2018 08:32
[2018-04-11] MEDS ORDERED: Dakin's 0.125% Soln (Quarter Strength) 16oz TOPIC SCH (09:00)
[2018-04-11] MEDS ORDERED: Ascorbic Acid 500mg tab ORAL SCH (09:00)
[2018-04-11] MEDS ORDERED: Multivitamin w/Minerals tab ORAL SCH (09:00)
[2018-04-11] MEDS: Cefepime HCl 2 GM in D5W 110 ML IV SCH (09:03)
[2018-04-11] MEDS: Eliquis 2.5mg tablet ORAL SCH (09:03)
[2018-04-11] MEDS: Metoprolol Tartrate 12.5mg TAB ORAL SCH (09:04)
[2018-04-11] MEDS ORDERED: Acetaminophen 500mg (ES) tab ORAL PRN (10:00)
--- NOTE | 2018-04-11 11:19 | Pulmonology Progress Note ---
Assessment/Plan Problems: (1) Sepsis (2) CVA (cerebral vascular accident) (3) HTN (hypertension) (4) CAD (coronary artery disease) Assessment/Plan wound care iv abx check cultures symptomatic treatment all reviewed f/u ID recommendations Subjective Interval Events: late note 04/10, doing better, no new complains Allergies: Coded Allergies: MILK (Verified Allergy, Unknown, 02/02/18) Objective Last 24 Hour Vital Signs Date Time Temp Pulse Resp B/P (MAP) Pulse Ox O2 Delivery O2 Flow Rate FiO2 04/11/18 09:04 82 141/96 04/11/18 09:04 82 04/11/18 09:00 Room Air 04/11/18 08:00 98.9 82 20 141/96 (111) 98 98.9 04/11/18 07:05 81 20 Room Air 21 04/11/18 05:42 97.9 04/11/18 05:12 97.9 04/11/18 04:00 97.7 81 20 148/83 (104) 100 97.7 04/11/18 00:00 97.9 65 20 134/89 (104) 98 97.9 04/10/18 22:32 97.7 04/10/18 22:30 76 149/88 04/10/18 21:00 Room Air 04/10/18 20:01 76 20 Room Air 21 04/10/18 20:00 97.7 88 20 149/88 (108) 99 97.7 04/10/18 16:00 98.2 89 20 153/85 (107) 99 98.2 04/10/18 15:14 83 04/10/18 12:00 97.9 99 18 129/82 (98) 97 97.9 04/10/18 11:48 72 Intake and Output 04/10/18 04/11/18 19:00 07:00 Intake Total 1870 ml 510 ml Output Total 300 ml Balance 1570 ml 510 ml Intake Oral 1320 ml IV Total 550 ml 510 ml Output Urine Total 300 ml # Voids 4 # Bowel Movements 1 1 General Appearance: WD/WN HEENT: normocephalic, atraumatic Respiratory/Chest: chest wall non-tender, lungs clear Cardiovascular: normal peripheral pulses, normal rate Abdomen: normal bowel sounds, soft, non tender Genitourinary: normal external genitalia Extremities: no cyanosis 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, no motor/sensory deficits Microbiology Date/Time Source Procedure Growth Status 04/09/18 09:25 Wound Gram Stain - Final Resulted 04/09/18 09:25 Wound Wound Culture - Preliminary Resulted Laboratory Tests 04/11/18 06:25: White Blood Count 12.1H, Red Blood Count 3.65L, Hemoglobin 11.1L, Hematocrit 34.9L, Mean Corpuscular Volume 95, Mean Corpuscular Hemoglobin 30.2, Mean Corpuscular Hemoglobin Concent 31.7L, Red Cell Distribution Width 12.3, Platelet Count 225, Mean Platelet Volume 4.7L, Neutrophils (%) (Auto) 71.3, Lymphocytes (%) (Auto) 16.6L, Monocytes (%) (Auto) 8.7, Eosinophils (%) (Auto) 2.6, Basophils (%) (Auto) 0.8, Sodium Level 138, Potassium Level 3.8, Chloride Level 106, Carbon Dioxide Level 29, Anion Gap 3L, Blood Urea Nitrogen 18, Creatinine 0.8, Estimat Glomerular Filtration Rate > 60, Glucose Level 124H, Calcium Level 8.3L, Phosphorus Level 2.5, Magnesium Level 2.1, Total Bilirubin 0.3, Aspartate Amino Transf (AST/SGOT) 45H, Alanine Aminotransferase (ALT/SGPT) 26, Alkaline Phosphatase 103, Total Protein 6.1L, Albumin 1.8L, Globulin 4.3, Albumin/Globulin Ratio 0.4L Current Medications Medications (Trade) Dose Ordered Sig/Erlin Route PRN Reason Start Time Stop Time Status Last Admin Dose Admin Acetaminophen (Tylenol) 500 mg Q6H PRN ORAL Moderate Pain (Pain Scale 4-6) 04/11/18 10:00 05/11/18 09:59 04/11/18 11:03 Acetaminophen (Tylenol) 650 mg Q4H PRN ORAL fever 04/10/18 21:19 05/06/18 21:18 Albuterol/ Ipratropium (Albuterol/ Ipratropium) 3 ml Q4H PRN HHN Shortness of Breath 04/10/18 21:19 04/14/18 21:18 Apixaban (Eliquis) 2.5 mg Q12HR ORAL 04/10/18 21:00 05/08/18 20:59 04/11/18 09:03 Ascorbic Acid (Vitamin C) 500 mg DAILY ORAL 04/11/18 09:00 05/08/18 08:59 04/11/18 09:04 Cefepime HCl 2 gm/ Dextrose 110 ml @ 220 mls/hr EVERY 12 HOURS IV 04/10/18 21:00 04/13/18 20:59 04/11/18 09:03 Dextrose (Dextrose 50%) 25 ml Q30M PRN IV Hypoglycemia 04/10/18 21:19 05/10/18 21:18 Dextrose (Dextrose 50%) 50 ml Q30M PRN IV Hypoglycemia 04/10/18 21:19 05/06/18 21:18 Digoxin (Lanoxin) 0.25 mg DAILY ORAL 04/11/18 09:00 05/07/18 08:59 04/11/18 09:04 Famotidine (Pepcid) 20 mg BID ORAL 04/11/18 09:00 05/07/18 17:59 04/11/18 09:04 Gabapentin (Neurontin) 100 mg THREE TIMES A DAY ORAL 04/11/18 09:00 05/07/18 08:59 04/11/18 09:04 Hydralazine HCl (Apresoline) 25 mg Q4H PRN ORAL bp over 160 syst 04/10/18 21:20 05/07/18 21:19 Metoprolol Tartrate (Lopressor) 12.5 mg Q12HR ORAL 04/10/18 21:00 05/08/18 20:59 04/11/18 09:04 Metronidazole (Flagyl) 500 mg Q8H ORAL 04/11/18 00:00 04/14/18 15:59 04/11/18 09:05 Midodrine (Pro-Amatine) 2.5 mg THREE TIMES A DAY ORAL 04/11/18 09:00 05/08/18 17:59 04/11/18 09:03 Morphine Sulfate (Morphine Sulfate) 2 mg Q4H PRN IVP For Pain 04/10/18 21:20 04/17/18 21:19 04/11/18 09:14 Multivitamins Therapeutic (Therapeutic Multivitamin) 1 ea DAILY ORAL 04/11/18 09:00 05/08/18 08:59 04/11/18 09:04 Nitroglycerin (Ntg) 0.4 mg Q5MIN X 3 DOSES PRN SL Prn Chest Pain 04/10/18 21:20 05/10/18 21:19 Ondansetron HCl (Zofran) 4 mg Q6H PRN IVP Nausea & Vomiting 04/10/18 21:20 05/10/18 21:19 Polyethylene Glycol (Miralax) 17 gm DAILYPRN PRN ORAL Constipation 04/10/18 21:20 05/10/18 21:19 Quetiapine Fumarate (SEROquel) 100 mg BEDTIME ORAL 04/10/18 21:00 05/06/18 20:59 04/10/18 22:29 Sodium Hypochlorite (Dakin's Quarter Strength) 1 applic DAILY TOPIC 04/11/18 09:00 05/09/18 08:59 04/11/18 09:06 Sodium Chloride 1,000 ml @ 50 mls/hr Q20H IV 04/10/18 21:28 05/06/18 21:27 04/10/18 22:30 Temazepam (Restoril) 15 mg HSPRN PRN ORAL Insomnia 04/10/18 21:26 04/17/18 21:25 04/10/18 22:31 Minerva Montesinos MD Apr 11, 2018 11:19
--- NOTE | 2018-04-11 11:21 | Pulmonology Progress Note ---
Assessment/Plan Problems: (1) Sepsis (2) CVA (cerebral vascular accident) (3) HTN (hypertension) (4) CAD (coronary artery disease) Assessment/Plan wbc lower, afebrile wound care iv abx check cultures symptomatic treatment all reviewed f/u ID recommendations Subjective ROS Limited/Unobtainable: No Constitutional: Reports: no symptoms HEENT: Repors: no symptoms Respiratory: Reports: no symptoms Allergies: Coded Allergies: MILK (Verified Allergy, Unknown, 02/02/18) Objective Last 24 Hour Vital Signs Date Time Temp Pulse Resp B/P (MAP) Pulse Ox O2 Delivery O2 Flow Rate FiO2 04/11/18 09:04 82 141/96 04/11/18 09:04 82 04/11/18 09:00 Room Air 04/11/18 08:00 98.9 82 20 141/96 (111) 98 98.9 04/11/18 07:05 81 20 Room Air 21 04/11/18 05:42 97.9 04/11/18 05:12 97.9 04/11/18 04:00 97.7 81 20 148/83 (104) 100 97.7 04/11/18 00:00 97.9 65 20 134/89 (104) 98 97.9 04/10/18 22:32 97.7 04/10/18 22:30 76 149/88 04/10/18 21:00 Room Air 04/10/18 20:01 76 20 Room Air 21 04/10/18 20:00 97.7 88 20 149/88 (108) 99 97.7 04/10/18 16:00 98.2 89 20 153/85 (107) 99 98.2 04/10/18 15:14 83 04/10/18 12:00 97.9 99 18 129/82 (98) 97 97.9 04/10/18 11:48 72 Intake and Output 04/10/18 04/11/18 19:00 07:00 Intake Total 1870 ml 510 ml Output Total 300 ml Balance 1570 ml 510 ml Intake Oral 1320 ml IV Total 550 ml 510 ml Output Urine Total 300 ml # Voids 4 # Bowel Movements 1 1 General Appearance: WD/WN HEENT: normocephalic, atraumatic Respiratory/Chest: chest wall non-tender, lungs clear Cardiovascular: normal peripheral pulses, normal rate Abdomen: normal bowel sounds, soft, non tender Skin: no rash 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 Lymphatic: no neck adenopathy Microbiology Date/Time Source Procedure Growth Status 04/09/18 09:25 Wound Gram Stain - Final Resulted 04/09/18 09:25 Wound Wound Culture - Preliminary Resulted Laboratory Tests 04/11/18 06:25: White Blood Count 12.1H, Red Blood Count 3.65L, Hemoglobin 11.1L, Hematocrit 34.9L, Mean Corpuscular Volume 95, Mean Corpuscular Hemoglobin 30.2, Mean Corpuscular Hemoglobin Concent 31.7L, Red Cell Distribution Width 12.3, Platelet Count 225, Mean Platelet Volume 4.7L, Neutrophils (%) (Auto) 71.3, Lymphocytes (%) (Auto) 16.6L, Monocytes (%) (Auto) 8.7, Eosinophils (%) (Auto) 2.6, Basophils (%) (Auto) 0.8, Sodium Level 138, Potassium Level 3.8, Chloride Level 106, Carbon Dioxide Level 29, Anion Gap 3L, Blood Urea Nitrogen 18, Creatinine 0.8, Estimat Glomerular Filtration Rate > 60, Glucose Level 124H, Calcium Level 8.3L, Phosphorus Level 2.5, Magnesium Level 2.1, Total Bilirubin 0.3, Aspartate Amino Transf (AST/SGOT) 45H, Alanine Aminotransferase (ALT/SGPT) 26, Alkaline Phosphatase 103, Total Protein 6.1L, Albumin 1.8L, Globulin 4.3, Albumin/Globulin Ratio 0.4L Current Medications Medications (Trade) Dose Ordered Sig/Erlin Route PRN Reason Start Time Stop Time Status Last Admin Dose Admin Acetaminophen (Tylenol) 500 mg Q6H PRN ORAL Moderate Pain (Pain Scale 4-6) 04/11/18 10:00 05/11/18 09:59 04/11/18 11:03 Acetaminophen (Tylenol) 650 mg Q4H PRN ORAL fever 04/10/18 21:19 05/06/18 21:18 Albuterol/ Ipratropium (Albuterol/ Ipratropium) 3 ml Q4H PRN HHN Shortness of Breath 04/10/18 21:19 04/14/18 21:18 Apixaban (Eliquis) 2.5 mg Q12HR ORAL 04/10/18 21:00 05/08/18 20:59 04/11/18 09:03 Ascorbic Acid (Vitamin C) 500 mg DAILY ORAL 04/11/18 09:00 05/08/18 08:59 04/11/18 09:04 Cefepime HCl 2 gm/ Dextrose 110 ml @ 220 mls/hr EVERY 12 HOURS IV 04/10/18 21:00 04/13/18 20:59 04/11/18 09:03 Dextrose (Dextrose 50%) 25 ml Q30M PRN IV Hypoglycemia 04/10/18 21:19 05/10/18 21:18 Dextrose (Dextrose 50%) 50 ml Q30M PRN IV Hypoglycemia 04/10/18 21:19 05/06/18 21:18 Digoxin (Lanoxin) 0.25 mg DAILY ORAL 04/11/18 09:00 05/07/18 08:59 04/11/18 09:04 Famotidine (Pepcid) 20 mg BID ORAL 04/11/18 09:00 05/07/18 17:59 04/11/18 09:04 Gabapentin (Neurontin) 100 mg THREE TIMES A DAY ORAL 04/11/18 09:00 05/07/18 08:59 04/11/18 09:04 Hydralazine HCl (Apresoline) 25 mg Q4H PRN ORAL bp over 160 syst 04/10/18 21:20 05/07/18 21:19 Metoprolol Tartrate (Lopressor) 12.5 mg Q12HR ORAL 04/10/18 21:00 05/08/18 20:59 04/11/18 09:04 Metronidazole (Flagyl) 500 mg Q8H ORAL 04/11/18 00:00 04/14/18 15:59 04/11/18 09:05 Midodrine (Pro-Amatine) 2.5 mg THREE TIMES A DAY ORAL 04/11/18 09:00 05/08/18 17:59 04/11/18 09:03 Morphine Sulfate (Morphine Sulfate) 2 mg Q4H PRN IVP For Pain 04/10/18 21:20 04/17/18 21:19 04/11/18 09:14 Multivitamins Therapeutic (Therapeutic Multivitamin) 1 ea DAILY ORAL 04/11/18 09:00 05/08/18 08:59 04/11/18 09:04 Nitroglycerin (Ntg) 0.4 mg Q5MIN X 3 DOSES PRN SL Prn Chest Pain 04/10/18 21:20 05/10/18 21:19 Ondansetron HCl (Zofran) 4 mg Q6H PRN IVP Nausea & Vomiting 04/10/18 21:20 05/10/18 21:19 Polyethylene Glycol (Miralax) 17 gm DAILYPRN PRN ORAL Constipation 04/10/18 21:20 05/10/18 21:19 Quetiapine Fumarate (SEROquel) 100 mg BEDTIME ORAL 04/10/18 21:00 05/06/18 20:59 04/10/18 22:29 Sodium Hypochlorite (Dakin's Quarter Strength) 1 applic DAILY TOPIC 04/11/18 09:00 05/09/18 08:59 04/11/18 09:06 Sodium Chloride 1,000 ml @ 50 mls/hr Q20H IV 04/10/18 21:28 05/06/18 21:27 04/10/18 22:30 Temazepam (Restoril) 15 mg HSPRN PRN ORAL Insomnia 04/10/18 21:26 04/17/18 21:25 04/10/18 22:31 Minerva Montesinos MD Apr 11, 2018 11:21
[2018-04-11] MEDS ORDERED: GABAPENTIN100 MG ORAL (11:24)
[2018-04-11] MEDS ORDERED: LANOXIN250 MCG ORAL (11:24)
[2018-04-11] MEDS ORDERED: FLAGYL500 MG ORAL (11:24)
[2018-04-11] MEDS ORDERED: ELIQUIS2.5 MG ORAL (11:24)
[2018-04-11] MEDS ORDERED: CEFEPIME-D2 GM/50 ML IVPB (11:26)
[2018-04-11 12:00] VITALS: BP 154/88
--- NOTE | 2018-04-11 15:30 | Nephrology Progress Note ---
Assessment/Plan Problem List: (1) Sepsis (2) Hyponatremia (3) Hyperkalemia Assessment HyperKalemia- HypoNatremia Sepsis / Leukocytosis Bipolar CAD HTN CVA Severe HypoAlbuminemia Mild Anemia h/o Rhabdo h/o Drug abuse h/o GB disease large ulcers to bilateral LEs. maggots noted. no discharge Plan DC planning Phos and Mag supplement Urine Studies Urine tox screen + opiates Stop AntiHypertensives as BP is low Antibiotics 2D echo noted eliquis saline per orders Subjective ROS Limited/Unobtainable: No Constitutional: Reports: malaise Objective Objective Last 24 Hour Vital Signs Date Time Temp Pulse Resp B/P (MAP) Pulse Ox O2 Delivery O2 Flow Rate FiO2 04/11/18 12:00 97.9 67 20 154/88 (110) 98 97.9 04/11/18 09:04 82 141/96 04/11/18 09:04 82 04/11/18 09:00 Room Air 04/11/18 08:00 98.9 82 20 141/96 (111) 98 98.9 04/11/18 07:05 81 20 Room Air 21 04/11/18 05:42 97.9 04/11/18 05:12 97.9 04/11/18 04:00 97.7 81 20 148/83 (104) 100 97.7 04/11/18 00:00 97.9 65 20 134/89 (104) 98 97.9 04/10/18 22:32 97.7 04/10/18 22:30 76 149/88 04/10/18 21:00 Room Air 04/10/18 20:01 76 20 Room Air 21 04/10/18 20:00 97.7 88 20 149/88 (108) 99 97.7 04/10/18 16:00 98.2 89 20 153/85 (107) 99 98.2 Intake and Output 04/10/18 04/11/18 19:00 07:00 Intake Total 1870 ml 510 ml Output Total 300 ml Balance 1570 ml 510 ml Intake Oral 1320 ml IV Total 550 ml 510 ml Output Urine Total 300 ml # Voids 4 # Bowel Movements 1 1 Laboratory Tests 04/11/18 06:25: White Blood Count 12.1H, Red Blood Count 3.65L, Hemoglobin 11.1L, Hematocrit 34.9L, Mean Corpuscular Volume 95, Mean Corpuscular Hemoglobin 30.2, Mean Corpuscular Hemoglobin Concent 31.7L, Red Cell Distribution Width 12.3, Platelet Count 225, Mean Platelet Volume 4.7L, Neutrophils (%) (Auto) 71.3, Lymphocytes (%) (Auto) 16.6L, Monocytes (%) (Auto) 8.7, Eosinophils (%) (Auto) 2.6, Basophils (%) (Auto) 0.8, Sodium Level 138, Potassium Level 3.8, Chloride Level 106, Carbon Dioxide Level 29, Anion Gap 3L, Blood Urea Nitrogen 18, Creatinine 0.8, Estimat Glomerular Filtration Rate > 60, Glucose Level 124H, Calcium Level 8.3L, Phosphorus Level 2.5, Magnesium Level 2.1, Total Bilirubin 0.3, Aspartate Amino Transf (AST/SGOT) 45H, Alanine Aminotransferase (ALT/SGPT) 26, Alkaline Phosphatase 103, Total Protein 6.1L, Albumin 1.8L, Globulin 4.3, Albumin/Globulin Ratio 0.4L Height (Feet): 6 Height (Inches): 4.00 Weight (Pounds): 203 General Appearance: no apparent distress Objective no change Ruy Colvin MD Apr 11, 2018 15:30
--- NOTE | 2018-04-11 19:45 | Cardiology Report ---
APPROVED REPORT EKG Measurement Heart [id number] Sinus tachycardia Left anterior fascicular block Possible Anteroseptal infarct, age undetermined Abnormal ECG
--- NOTE | 2018-04-11 21:44 | General Progress Note ---
Assessment/Plan Status: stable, progressing Assessment/Plan schizophrenia CVA -seroquel 100mg qhs -provided ro/st Subjective Date patient seen: Apr 11, 2018 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: Reports: anxiety, depressed, emotional problems Allergies: Coded Allergies: MILK (Verified Allergy, Unknown, 02/02/18) Objective Last 24 Hour Vital Signs Date Time Temp Pulse Resp B/P (MAP) Pulse Ox O2 Delivery O2 Flow Rate FiO2 04/11/18 12:00 97.9 67 20 154/88 (110) 98 97.9 04/11/18 09:04 82 141/96 04/11/18 09:04 82 04/11/18 09:00 Room Air 04/11/18 08:00 98.9 82 20 141/96 (111) 98 98.9 04/11/18 07:05 81 20 Room Air 21 04/11/18 05:42 97.9 04/11/18 05:12 97.9 04/11/18 04:00 97.7 81 20 148/83 (104) 100 97.7 04/11/18 00:00 97.9 65 20 134/89 (104) 98 97.9 04/10/18 22:32 97.7 04/10/18 22:30 76 149/88 Intake and Output 04/10/18 04/11/18 19:00 07:00 Intake Total 1870 ml 510 ml Output Total 300 ml Balance 1570 ml 510 ml Intake Oral 1320 ml IV Total 550 ml 510 ml Output Urine Total 300 ml # Voids 4 # Bowel Movements 1 1 Laboratory Tests 04/11/18 06:25: White Blood Count 12.1H, Red Blood Count 3.65L, Hemoglobin 11.1L, Hematocrit 34.9L, Mean Corpuscular Volume 95, Mean Corpuscular Hemoglobin 30.2, Mean Corpuscular Hemoglobin Concent 31.7L, Red Cell Distribution Width 12.3, Platelet Count 225, Mean Platelet Volume 4.7L, Neutrophils (%) (Auto) 71.3, Lymphocytes (%) (Auto) 16.6L, Monocytes (%) (Auto) 8.7, Eosinophils (%) (Auto) 2.6, Basophils (%) (Auto) 0.8, Sodium Level 138, Potassium Level 3.8, Chloride Level 106, Carbon Dioxide Level 29, Anion Gap 3L, Blood Urea Nitrogen 18, Creatinine 0.8, Estimat Glomerular Filtration Rate > 60, Glucose Level 124H, Calcium Level 8.3L, Phosphorus Level 2.5, Magnesium Level 2.1, Total Bilirubin 0.3, Aspartate Amino Transf (AST/SGOT) 45H, Alanine Aminotransferase (ALT/SGPT) 26, Alkaline Phosphatase 103, Total Protein 6.1L, Albumin 1.8L, Globulin 4.3, Albumin/Globulin Ratio 0.4L Height (Feet): 6 Height (Inches): 4.00 Weight (Pounds): 203 General Appearance: no apparent distress, alert, confused Julissa Still MD Apr 11, 2018 21:44
--- NOTE | 2018-04-13 13:39 | Discharge Summary ---
Discharge Summary Discharge Summary _ DATE OF ADMISSION: 04/06/2018 DATE OF DISCHARGE: 04/11/2018 REASON FOR ADMISSION: 68 years old male with past medical history of hypertension, atrial fibrillation, CVA/TIA, hyperlipidemia, coronary artery disease, NSTEMI in January 2018, acute renal failure in January 2018, requiring temporary hemodialysis, substance-abuse, resident of [facility] ,presented to emergency department for evaluation of right lower leg pain. Patient with history of chronic bilateral lower leg ulcers. Patient reported t constant 9/10 pain, sharp nonradiating. No fever or chills. No chest pain or shortness of breath. Patient was found to be tachycardic and febrile , with significant leukocytosis ([id number]) and evidence of infection right lower extremity. Patient found to be in renal failure with BUN 39 and creatinine 1.4. Patient admitted with diagnoses of sepsis, maggot infestation, bilateral lower extremity ulcers with acute superinfection in the right leg, history of hypertension ,coronary artery disease, acute kidney injury, CONSULTANTS: adult health clinical nurse specialist dr. Tobin ID specialist Dr. Parker dinkey operator Dr. Colvin surgery Dr. Osuna psychiatrist [facility] COURSE: Patient admitted and started on IV fluids and empiric antibiotic. Infectious disease doctor closely followed. Blood culture were negative. Wound culture revealed Proteus ,Klebsiella and Morganella. Repeated wound culture revealed Pseudomonas and gram-negative bacilli. Antibiotic regimen provided as per ID recommendations and to be continued at the [facility] to complete the course. Renal parameters and electrolytes were closely monitored. Electrolytes were corrected as needed. Nephrotoxics were avoided. Acute kidney injury resolved, likely was due to hypovolemia, caused by dehydration. Entry Level Buyer closely followed. Wound care provided as per surgeon's recommendation, and to be continued at the [facility]. Blood sugar was managed with sliding scale of insulin. Patient was off any antihypertensive medication due to hypotension. Blood pressure was closely monitored. Patient started on low dose of midodrine as per dinkey operator. Blood pressure stabilized as infection was under control. Anticoagulation resumed. No evidence of bleeding. Hemoglobin and hematocrit stable. Pain management was addressed, and pain was controlled. Supportive care provided. Bowel regimen instituted. Venous duplex bilateral lower extremity revealed no evidence of acute DVT. Psychiatrist closely followed. Reality orientation and supportive care provided. Patient started on Seroquel. Patient clinically stabilized : afebrile, leukocytosis from 44 down to 12.1. Patient was stable for discharge to [facility] for continuation of care , FINAL DIAGNOSES: Sepsis Maggot infestation Bilateral leg ulcer with acute right leg ulcer superinfection Acute kidney injury, probably secondary to hypovolemia provoked by dehydration Electrolyte imbalance: hyponatremia and hyperkalemia History of hypertension Diabetes mellitus History of CVA Schizophrenia DISCHARGE MEDICATIONS: See Medication Reconciliation list. DISCHARGE INSTRUCTIONS: Patient was discharged to the [facility].Follow up with medical doctor at the facility. I have been assigned to dictate discharge summary for this account. I was not involved in the patient's management. Linsey Boo NP Apr 13, 2018 13:39
== END 2018-04-11 14:10 | DRG 871 ==
LOC: EDBD 17:45 → EMR 18:15 → 2E 18:59 → EDBEDREQTM 19:17 → EDBEDREQSVC 19:17 → EDBEDREQ 19:18 → 4E 04-10 20:57
DX: A41.9 Sepsis, unspecified organism (principal); K72.00 Acute and subacute hepatic failure without coma; E87.1 Hypo-osmolality and hyponatremia; N17.9 Acute kidney failure, unspecified; M62.82 Rhabdomyolysis; L97.919 Non-pressure chronic ulcer of unspecified part of right lower leg with unspecified severity; L97.929 Non-pressure chronic ulcer of unspecified part of left lower leg with unspecified severity; B87.9 Myiasis, unspecified; I10 Essential (primary) hypertension; I25.10 Atherosclerotic heart disease of native coronary artery without angina pectoris; Z86.73 Personal history of transient ischemic attack (TIA), and cerebral infarction without residual deficits; E86.1 Hypovolemia; E86.0 Dehydration; E11.9 Type 2 diabetes mellitus without complications; F20.9 Schizophrenia, unspecified; F31.9 Bipolar disorder, unspecified; I25.2 Old myocardial infarction; D64.9 Anemia, unspecified; F19.21 Other psychoactive substance dependence, in remission; B96.4 Proteus (mirabilis) (morganii) as the cause of diseases classified elsewhere; B96.1 Klebsiella pneumoniae [K. pneumoniae] as the cause of diseases classified elsewhere; B96.89 Other specified bacterial agents as the cause of diseases classified elsewhere
CPT/HCPCS: 36415; 71045; 80053; 80061; 80202; 80307; 81001; 82550; 82607; 82728; 82746; 82962; 82977; 83036; 83540; 83550; 83605; 83735; 83880; 83935; 84100; 84300; 84443; 84484; 84550; 85007; 85025; 86140; 87040; 87070; 87081; 87181; 87205; 93005; 93970; 94664; 96361; 96365; 96375; 99285; J2405

== ENCOUNTER 2018-05-12 13:32 | Inpatient (IN) | payer MEDICARE, MEDICAID ==
[~2018-05-12] VITALS: Ht 195.6 cm; Wt 77.2 kg
[~2018-05-12 13:32] MED LIST changes: +ABILIFY5 MG ORAL; +ADVAIR HFA 115-12 GM INH; +AMBIEN5 MG ORAL; +AMLODIPINE BESY10 MG ORAL; +ASPIR 8181 MG ORAL; +BISACODYL10 M1 RC; +BISACODYL5 MG RECTAL; +CEFEPIME-D2 GM/50 ML IVPB; +DOCUSATE SODIU100 MG ORAL; +ELIQUIS2.5 MG ORAL; +ELIQUIS5 MG PO; +FLAGYL500 MG ORAL; +GABAPENTIN100 MG ORAL; +METOPROLOL TART50 M1 ORAL; +MIDODRINE HCL10 MG ORAL; +MIDODRINE HCL5 MG ORAL; +NEPHROVITE1 TAB ORAL; +NORCO 5-325 TA1 EACH ORAL; +TYLENOL EXTRA500 MG ORAL
--- NOTE | 2018-05-12 14:36 | History & Physical ---
History and Physical History & Physicial Dictated for Int Med-Dr Caban no. [id number]. Daniel Jackson MD May 12, 2018 14:35
[2018-05-12] MEDS ORDERED: LORazepam Inj 2mg/ml 1ml IV PRN (15:15)
--- NOTE | 2018-05-12 15:15 | History and Physical Report ---
DATE OF ADMISSION: 05/12/2018 CHIEF COMPLAINT: The patient is a 68-year-old male, who presented with chief complaint of fever and altered mental status. HISTORY OF PRESENT ILLNESS: The patient was admitted to [facility] on 04/07/2018. Please see history and physical and discharge summary dictated at that time. The patient was discharged to [facility]. According to staff at [facility], the patient had increasing altered mental status for the past couple of days. The patient was transferred to [facility] for evaluation for altered mental status. The patient was found to be febrile with temperature of 101 degrees Fahrenheit. The patient is transferred to [facility] for insurance purposes. The patient is admitted with fever to rule out sepsis. REVIEW OF SYSTEMS: Unable to assess secondary to the patient's mental status. PAST MEDICAL HISTORY: Significant for" 1. Cerebrovascular accident. 2. Hypertension. 3. Bilateral lower extremity decubitus ulcers. 4. Bipolar disorder. 5. Coronary artery disease. PAST SURGICAL HISTORY: Unknown. CURRENT MEDICATIONS: 1. Apixaban 2.5 mg p.o. q.12 h. 2. Digoxin 250 mcg p.o. daily. 3. Gabapentin 100 mg p.o. three times daily. 4. Flagyl 500 mg p.o. q.8 h. 5. Metoprolol 50 mg p.o. twice daily. 6. Midodrine 5 mg p.o. three times daily. 7. Cefepime 2 g IV q.12 h. for 10 days. 8. Advair 115/21 one puff p.o. daily. 9. Seroquel 100 mg p.o. nightly. ALLERGIES: To milk. SOCIAL HISTORY: The patient is single and is a resident of [facility]. PHYSICAL EXAMINATION: VITAL SIGNS: Temperature 101.1 degrees Fahrenheit, respirations 26, pulse 137, and blood pressure 141/87. GENERAL: The patient is thin-appearing male, who is screaming incoherently. HEENT: Eyes, pupils are equal and responsive to light and accommodation. Extraocular movements are intact. NECK: Supple without lymphadenopathy. CHEST: Lungs are clear to auscultation bilaterally without wheezes or rales. CARDIOVASCULAR: Tachycardic, irregular rhythm. Irregular rate. S1, S2 normal without murmurs, rubs, or gallops. ABDOMEN: Soft, nontender, and nondistended. Positive bowel sounds. No evidence of hepatosplenomegaly. Currently, no rebound or guarding noted. EXTREMITIES: Negative for clubbing, cyanosis, or edema. There are stage III decubitus ulcer to bilateral ankles. NEUROLOGICAL: Cranial nerves II through XII are grossly intact without focal deficits. LABORATORY STUDIES: WBC 27.3, hemoglobin 14.1, hematocrit 43.4, and platelets 319,000. Sodium 137, potassium 5.8, chloride 103, CO2 26, BUN 55, and creatinine 1.20. Glucose 127. Troponin is elevated at 0.08. BNP is elevated at 237. EKG demonstrated sinus tachycardia at 132 beats per minute. Chest x-ray was reported as no acute infiltrate. Urinalysis showed the 0 to 2 wbc's, 4 to 10 rbc's. ASSESSMENT: This is a 68-year-old male with: 1. Altered mental status. 2. Fever. 3. History of cerebrovascular disease. 4. Hypertension. 5. Coronary artery disease. 6. Bipolar disorder. 7. Bilateral decubitus ulcers to the bilateral lower extremities. TREATMENT: 1. Altered mental status. This may be secondary to fever. 2. Fever. The patient was started empirically on vancomycin and cefepime at [place]. This will be continued. Urine and blood cultures are pending. 3. Cerebrovascular disease. 4. Hypertension. The patient is currently normotensive. 5. Coronary artery disease. 6. Bipolar disorder. Continue Seroquel as above. 7. Bilateral decubitus ulcers. A Surgery consultation has been obtained with Dr. Osuna. Daniel Jackson M.D. DR: SHALINI JOB#: [id number] CC:
--- NOTE | 2018-05-12 15:47 | Cardiac Electrophysiology PN ---
Subjective Subjective [id number] Objective Last 24 Hour Vital Signs Date Time Temp Pulse Resp B/P (MAP) Pulse Ox O2 Delivery O2 Flow Rate FiO2 05/12/18 15:05 Room Air Amandeep Arora MD May 12, 2018 15:47
[2018-05-12 16:00] VITALS: BP 160/90
[2018-05-12 16:34] LABS: ALANINE AMINOTRANSFERASE 30 U/L (12-78); ALBUMIN 1.5 G/DL (3.4-5.0); ALBUMIN/GLOBULIN RATIO 0.3 (1.0-2.7); ALKALINE PHOSPHATASE 120 U/L (46-116); ANION GAP 8 mmol/L (5-15); ASPARTATE AMINO TRANSFERASE 98 U/L (15-37); BILIRUBIN,TOTAL 0.6 MG/DL (0.2-1.0); BLOOD UREA NITROGEN 44 mg/dL (7-18); CALCIUM 9.2 MG/DL (8.5-10.1); CARBON DIOXIDE 24 MMOL/L (21-32); CHLORIDE 109 MMOL/L (98-107); CREATININE 0.8 MG/DL (0.55-1.30); SODIUM 141 MMOL/L (136-145)
[2018-05-12 16:42] LABS: HEMOGLOBIN 14.7 G/DL (14.2-18.0); MEAN CORPUSCULAR VOLUME 92 FL (80-99); PLATELET COUNT 286 K/UL (150-450); RED BLOOD COUNT 4.69 M/UL (4.70-6.10); RED CELL DISTRIBUTION WIDTH 12.3 % (11.6-14.8)
[2018-05-12] MEDS: Vancomycin 750mg/NS 250ml IVPB SCH (16:43)
[2018-05-12] MEDS: D5 1/2NS w/KCl 20mEq 1,000 ML IV SCH (16:57)
[2018-05-12 17:03] LABS: WHITE BLOOD COUNT 27.1 K/UL (4.8-10.8)
--- NOTE | 2018-05-12 17:15 | Consultation ---
DATE OF CONSULTATION: 05/12/2018 CARDIOLOGY CONSULTATION CONSULTING PHYSICIAN: Amandeep Arora M.D. REFERRING PHYSICIAN: Pedro Caban M.D. REASON FOR CONSULTATION: Atrial fibrillation with rapid ventricular response. HISTORY OF PRESENT ILLNESS: The patient is a 68-year-old gentleman with history of hypertension, who was brought to the emergency room for altered mental status and fever. The patient was recently admitted to [facility] on April 07, 2018, and was discharged to [facility]. The patient was then transferred to [facility] for evaluation of altered mental status, was found to have temperature of 101, and then was transferred to [facility]. REVIEW OF SYSTEMS: Cannot be obtained as the patient is currently confused. PAST MEDICAL HISTORY: 1. Hypertension. 2. Coronary artery disease. 3. Bipolar disorder. 4. CVA. 5. Atrial fibrillation. CURRENT MEDICATIONS: Include digoxin, apixaban, metoprolol, midodrine, cefepime, Advair, Seroquel, Flagyl. ALLERGIES: He has allergy to milk. PHYSICAL EXAMINATION: VITAL SIGNS: Show blood pressure of 110/70, pulse is 70, respirations 18, and he is afebrile. HEAD AND NECK: Mild JVD. LUNGS: Coarse rhonchi. CARDIOVASCULAR: Shows irregular S1 and S2 with no gallop or murmur. ABDOMEN: Soft. EXTREMITIES: No pitting edema. LABORATORY DATA: Show white count of 27, hemoglobin 14, hematocrit of 43, platelet count of 319,000. Sodium 137, potassium 5.8, BUN of 55, creatinine 1.2. Troponin 0.08. BNP is 237. ASSESSMENT AND PLAN: 1. Atrial fibrillation with rapid ventricular response. Repeat electrocardiogram. Continue digoxin 0.25 mg daily and metoprolol 50 mg b.i.d. The patient is also on anticoagulation with Eliquis 2.5 mg b.i.d. that will be continued. 2. Borderline hypotension. The patient is on midodrine. 3. Fever and sepsis, on antibiotic with vancomycin and cefepime. 4. History of dementia and severe psychosis, on Seroquel. Thank you very much for allowing me to participate in the care of this patient. Please do not hesitate to contact me for any questions regarding my evaluation. Amandeep Arora M.D. DR: Orly JOB#: [id number] CC:
--- NOTE | 2018-05-12 19:05 | Consultation ---
History of Present Illness General Date patient seen: May 12, 2018 Present Illness HPI 68 year old male well known to me from prior admission in 03/2018. Was discharged to care facility and now returns with altered mental status and sepsis. Leukocytosis, mental status change, abnormal labs. Hx of prior wounds which had declined; including maggots in lower extremities. On this admission noted to have multiple decubitus ulcers and wounds. Surgery called to evaluate and assist with care and management while in hospital. Patient seen, chart reviewed, patient examined. Currently awake and just saying random words. Does not participate in exam which he used to. Allergies: Coded Allergies: MILK (Verified Allergy, Unknown, 05/12/18) Patient History Limited by: medical condition History Provided By: Medical Record, PMD Healthcare decision maker Resuscitation status Full Code Advanced Directive on File No Past Medical/Surgical History Past Medical/Surgical History: (1) Fever (2) Atrial fibrillation (3) Decubitus skin ulcer Family History Family History: (1) Sepsis (2) Atrial fibrillation (3) Fever (4) Decubitus skin ulcer Review of Systems All Other Systems: negative except mentioned in HPI ROS Narrative cannot obtain given medical condition Physical Exam General Appearance: alert, confused, mild distress Lines, tubes and drains: peripheral HEENT: mucous membranes moist Neck: normal inspection Respiratory/Chest: normal breath sounds, no respiratory distress, no accessory muscle use Cardiovascular/Chest: tachycardia Abdomen: normal bowel sounds, non tender, soft, no organomegaly, no mass Extremities: other Skin Exam: other Neurologic: alert, disoriented Last 24 Hour Vital Signs Date Time Temp Pulse Resp B/P (MAP) Pulse Ox O2 Delivery O2 Flow Rate FiO2 05/12/18 16:00 112 05/12/18 16:00 97.7 110 23 160/90 (113) 97 05/12/18 15:05 Room Air Laboratory Tests Test 05/12/18 16:10 White Blood Count 27.1 K/UL (4.8-10.8) *H Red Blood Count 4.69 M/UL (4.70-6.10) L Hemoglobin 14.7 G/DL (14.2-18.0) Hematocrit 43.0 % (42.0-52.0) Mean Corpuscular Volume 92 FL (80-99) Mean Corpuscular Hemoglobin 31.3 PG (27.0-31.0) H Mean Corpuscular Hemoglobin Concent 34.1 G/DL (32.0-36.0) Red Cell Distribution Width 12.3 % (11.6-14.8) Platelet Count 286 K/UL (150-450) Mean Platelet Volume 4.8 FL (6.5-10.1) L Neutrophils (%) (Auto) % (45.0-75.0) Lymphocytes (%) (Auto) % (20.0-45.0) Monocytes (%) (Auto) % (1.0-10.0) Eosinophils (%) (Auto) % (0.0-3.0) Basophils (%) (Auto) % (0.0-2.0) Differential Total Cells Counted 100 Neutrophils % (Manual) 89 % (45-75) H Lymphocytes % (Manual) 6 % (20-45) L Monocytes % (Manual) 5 % (1-10) Eosinophils % (Manual) 0 % (0-3) Basophils % (Manual) 0 % (0-2) Band Neutrophils 0 % (0-8) Platelet Estimate Adequate Platelet Morphology Normal Red Blood Cell Morphology Normal Sodium Level 141 MMOL/L (136-145) Potassium Level 5.0 MMOL/L (3.5-5.1) Chloride Level 109 MMOL/L (98-107) H Carbon Dioxide Level 24 MMOL/L (21-32) Anion Gap 8 mmol/L (5-15) Blood Urea Nitrogen 44 mg/dL (7-18) H Creatinine 0.8 MG/DL (0.55-1.30) Estimat Glomerular Filtration Rate > 60 mL/min (>60) Glucose Level 111 MG/DL (74-106) H Calcium Level 9.2 MG/DL (8.5-10.1) Total Bilirubin 0.6 MG/DL (0.2-1.0) Aspartate Amino Transf (AST/SGOT) 98 U/L (15-37) H Alanine Aminotransferase (ALT/SGPT) 30 U/L (12-78) Alkaline Phosphatase 120 U/L (46-116) H Troponin I 0.047 ng/mL (0.000-0.056) Total Protein 7.0 G/DL (6.4-8.2) Albumin 1.5 G/DL (3.4-5.0) L Globulin 5.5 g/dL Albumin/Globulin Ratio 0.3 (1.0-2.7) L Height (Feet): 6 Height (Inches): 5.00 Weight (Pounds): 170 Medications Current Medications Medications (Trade) Dose Ordered Sig/Erlin Route PRN Reason Start Time Stop Time Status Last Admin Dose Admin Acetaminophen (Tylenol) 650 mg Q4H PRN ORAL Mild Pain/Temp > 100.5 05/12/18 15:00 06/11/18 14:59 Apixaban (Eliquis) 2.5 mg Q12HR ORAL 05/12/18 21:00 06/11/18 20:59 Cefepime HCl 1 gm/ Dextrose 55 ml @ 110 mls/hr EVERY 12 HOURS IVPB 05/12/18 21:00 05/19/18 20:59 Dextrose/ Electrolytes 1,000 ml @ 75 mls/hr [id number] IV 05/12/18 16:00 06/11/18 15:59 05/12/18 16:57 Digoxin (Lanoxin) 0.25 mg DAILY ORAL 05/13/18 09:00 06/12/18 08:59 Gabapentin (Neurontin) 100 mg THREE TIMES A DAY ORAL 05/12/18 18:00 06/11/18 17:59 05/12/18 17:05 Lorazepam (Ativan 2mg/ml 1ml) 1 mg Q4H PRN IV For Anxiety 05/12/18 15:15 05/19/18 15:14 Metoprolol Tartrate (Lopressor) 50 mg Q12HR ORAL 05/12/18 21:00 06/11/18 20:59 Midodrine (Pro-Amatine) 2.5 mg THREE TIMES A DAY ORAL 05/12/18 18:00 06/11/18 17:59 05/12/18 17:05 Morphine Sulfate (Morphine Sulfate) 2 mg Q4H PRN IVP For Pain 05/12/18 15:00 05/19/18 14:59 Quetiapine Fumarate (SEROquel) 100 mg BEDTIME ORAL 05/12/18 21:00 06/11/18 20:59 Vancomycin HCl (Vanco rx to dose) 1 ea DAILY PRN MISC Per rx protocol 05/12/18 15:00 06/11/18 14:59 Vancomycin/Sodium Chloride 250 ml @ 166.667 mls/hr Q12H IVPB 05/12/18 17:00 05/17/18 16:59 05/12/18 16:43 Assessment/Plan Problem List: (1) Sepsis Assessment & Plan: etiology of leukocytosis unknown will need further work up IV abx appreciate ID input trend labs ICD Codes: A41.9 - Sepsis, unspecified organism SNOMED: [id number] (2) Decubitus skin ulcer Assessment & Plan: Patient well known to me. Has had chronic wounds on sacrum, buttock, and lower extremities. Prior had maggots in lower extremities treated with Dakins and wound care which are since resolved. Multiple pressure ulcers. Patient unable to participate in exam and care plan. Now presents with multiple ulcerations to both lower extremities. Wounds are irregular malodorous. Both lower ext. cool to touch. Toes necrotic with ulcerations 1st, 2nd and 3rd metatarsals ulcerated. Ulcers dorsal aspects of toes L foot.Web spaces of toes are dry . Full thickness pressure injury to sacrum with 60% slough,(+) epibole.Wound measures (L)7cm x (W)7.5cm x (D)2.5cm. Periwound dark .Wound malodorous. Right buttock and ischial tuberosity which are large and with eschar cap unstageable full thickness. both heels have DTI with blood blisters noted. Wounds have significantly deteriorated since last admission with new wounds noted on lower extremities and buttock. Areas of prior maggot infection are healing but still with wounds. Refer to wound care photos for details. Tx.Plan: Cleanse both lower ext wounds with NS . Skin protectant .Cover with ABD and wrap with soft chavez daily an dprn Apply Light dusting of [place] Starch or baby powder in web spaces of toes on feet Clean sacral decubitus and buttock ulcer with NS, apply skin protectant / honey gel, apply foam dressing daily and prn Air Fluidized mattress on bed (P200). Encourage and assist with repositioning at least every 2hours or as tolerated. Off-load heels with pillow. ICD Codes: L89.90 - Pressure ulcer of unspecified site, unspecified stage SNOMED: [id number] Goyo Osuna May 12, 2018 19:05
[2018-05-12 20:03] VITALS: BP 152/81
[2018-05-12] MEDS: Eliquis 2.5mg tablet ORAL SCH (21:41)
[2018-05-12] MEDS: Metoprolol Tartrate 50mg tab ORAL SCH (21:41)
[2018-05-12] MEDS: Cefepime HCl 1 GM in D5W 55 ML IVPB SCH (21:42)
[2018-05-13] VITALS (8 sets, daily range): BP systolic 128–150; BP diastolic 60–86
[2018-05-13] MEDS: Vancomycin 750mg/NS 250ml IVPB SCH ×2 (04:28→18:05)
[2018-05-13] MEDS: D5 1/2NS w/KCl 20mEq 1,000 ML IV SCH (04:34)
[2018-05-13 07:53] LABS: HEMATOCRIT 42.8 % (42.0-52.0); HEMOGLOBIN 14.3 G/DL (14.2-18.0); MEAN CORPUSCULAR VOLUME 94 FL (80-99); PLATELET COUNT 226 K/UL (150-450); RED BLOOD COUNT 4.56 M/UL (4.70-6.10); RED CELL DISTRIBUTION WIDTH 12.8 % (11.6-14.8)
[2018-05-13 07:55] LABS: WHITE BLOOD COUNT 25.2 K/UL (4.8-10.8)
--- NOTE | 2018-05-13 08:12 | Consultation ---
History of Present Illness General Date patient seen: May 13, 2018 Chief Complaint: AMS Reason for Consultation: Sepsis Present Illness HPI Mr. Argeuta is a 68 yo male who was transferred from [place] where he initially presented for AMS from [facility]. He was febrile with a temp of 101 at the time. He was then sent to [place] for insurance reasons. Today he is still alerted. Blood Cx at [place] now growing GPC. History obtained from the chart due to AMS. ID was consulted for Sepsis PMHx/PXHx Cerebrovascular accident. Hypertension. Bilateral lower extremity decubitus ulcers. Bipolar disorder. Coronary artery disease. SocHx Unable to obtain due to AMS FamHx Unable to obtain due to AMS Allergies: Coded Allergies: MILK (Verified Allergy, Unknown, 05/12/18) Patient History Healthcare decision maker Resuscitation status Full Code Advanced Directive on File No Review of Systems ROS Narrative Unable to obtain due to AMS Physical Exam Last 24 Hour Vital Signs Date Time Temp Pulse Resp B/P (MAP) Pulse Ox O2 Delivery O2 Flow Rate FiO2 05/13/18 04:00 89 05/13/18 03:56 97.7 74 20 145/60 (88) 92 05/13/18 00:00 97.9 83 18 128/84 (99) 93 05/13/18 00:00 95 05/12/18 21:41 84 152/81 05/12/18 21:00 Room Air 05/12/18 20:03 97.6 84 18 152/81 (104) 95 05/12/18 20:00 117 05/12/18 16:00 112 05/12/18 16:00 97.7 110 23 160/90 (113) 97 05/12/18 15:05 Room Air Intake and Output 05/12/18 05/13/18 19:00 07:00 Intake Total 483.334 ml Balance 483.334 ml Intake IV Total 483.334 ml # Voids 2 4 Laboratory Tests Test 05/12/18 16:10 05/13/18 07:00 White Blood Count 27.1 K/UL (4.8-10.8) *H 25.2 K/UL (4.8-10.8) *H Red Blood Count 4.69 M/UL (4.70-6.10) L 4.56 M/UL (4.70-6.10) L Hemoglobin 14.7 G/DL (14.2-18.0) 14.3 G/DL (14.2-18.0) Hematocrit 43.0 % (42.0-52.0) 42.8 % (42.0-52.0) Mean Corpuscular Volume 92 FL (80-99) 94 FL (80-99) Mean Corpuscular Hemoglobin 31.3 PG (27.0-31.0) H 31.3 PG (27.0-31.0) H Mean Corpuscular Hemoglobin Concent 34.1 G/DL (32.0-36.0) 33.4 G/DL (32.0-36.0) Red Cell Distribution Width 12.3 % (11.6-14.8) 12.8 % (11.6-14.8) Platelet Count 286 K/UL (150-450) 226 K/UL (150-450) Mean Platelet Volume 4.8 FL (6.5-10.1) L 5.0 FL (6.5-10.1) L Neutrophils (%) (Auto) % (45.0-75.0) % (45.0-75.0) Lymphocytes (%) (Auto) % (20.0-45.0) % (20.0-45.0) Monocytes (%) (Auto) % (1.0-10.0) % (1.0-10.0) Eosinophils (%) (Auto) % (0.0-3.0) % (0.0-3.0) Basophils (%) (Auto) % (0.0-2.0) % (0.0-2.0) Differential Total Cells Counted 100 Neutrophils % (Manual) 89 % (45-75) H Pending Lymphocytes % (Manual) 6 % (20-45) L Pending Monocytes % (Manual) 5 % (1-10) Eosinophils % (Manual) 0 % (0-3) Basophils % (Manual) 0 % (0-2) Band Neutrophils 0 % (0-8) Platelet Estimate Adequate Pending Platelet Morphology Normal Pending Red Blood Cell Morphology Normal Sodium Level 141 MMOL/L (136-145) Pending Potassium Level 5.0 MMOL/L (3.5-5.1) Pending Chloride Level 109 MMOL/L (98-107) H Pending Carbon Dioxide Level 24 MMOL/L (21-32) Pending Anion Gap 8 mmol/L (5-15) Blood Urea Nitrogen 44 mg/dL (7-18) H Pending Creatinine 0.8 MG/DL (0.55-1.30) Pending Estimat Glomerular Filtration Rate > 60 mL/min (>60) Pending Glucose Level 111 MG/DL (74-106) H Pending Calcium Level 9.2 MG/DL (8.5-10.1) Pending Total Bilirubin 0.6 MG/DL (0.2-1.0) Aspartate Amino Transf (AST/SGOT) 98 U/L (15-37) H Alanine Aminotransferase (ALT/SGPT) 30 U/L (12-78) Alkaline Phosphatase 120 U/L (46-116) H Troponin I 0.047 ng/mL (0.000-0.056) Total Protein 7.0 G/DL (6.4-8.2) Albumin 1.5 G/DL (3.4-5.0) L Globulin 5.5 g/dL Albumin/Globulin Ratio 0.3 (1.0-2.7) L Pro-B-Type Natriuretic Peptide Pending Digoxin Level Pending Height (Feet): 6 Height (Inches): 5.00 Weight (Pounds): 170 Medications Current Medications Medications (Trade) Dose Ordered Sig/Erlin Route PRN Reason Start Time Stop Time Status Last Admin Dose Admin Acetaminophen (Tylenol) 650 mg Q4H PRN ORAL Mild Pain/Temp > 100.5 05/12/18 15:00 06/11/18 14:59 Apixaban (Eliquis) 2.5 mg Q12HR ORAL 05/12/18 21:00 06/11/18 20:59 05/12/18 21:41 Cefepime HCl 1 gm/ Dextrose 55 ml @ 110 mls/hr EVERY 12 HOURS IVPB 05/12/18 21:00 05/19/18 20:59 05/12/18 21:42 Dextrose/ Electrolytes 1,000 ml @ 75 mls/hr [id number] IV 05/12/18 16:00 06/11/18 15:59 05/12/18 16:57 Digoxin (Lanoxin) 0.25 mg DAILY ORAL 05/13/18 09:00 06/12/18 08:59 Gabapentin (Neurontin) 100 mg THREE TIMES A DAY ORAL 05/12/18 18:00 06/11/18 17:59 05/12/18 17:05 Lorazepam (Ativan 2mg/ml 1ml) 1 mg Q4H PRN IV For Anxiety 05/12/18 15:15 05/19/18 15:14 Metoprolol Tartrate (Lopressor) 50 mg Q12HR ORAL 05/12/18 21:00 06/11/18 20:59 05/12/18 21:41 Midodrine (Pro-Amatine) 2.5 mg THREE TIMES A DAY ORAL 05/12/18 18:00 06/11/18 17:59 05/12/18 17:05 Morphine Sulfate (Morphine Sulfate) 2 mg Q4H PRN IVP For Pain 05/12/18 15:00 05/19/18 14:59 Quetiapine Fumarate (SEROquel) 100 mg BEDTIME ORAL 05/12/18 21:00 06/11/18 20:59 05/12/18 21:41 Vancomycin HCl (Vanco rx to dose) 1 ea DAILY PRN MISC Per rx protocol 05/12/18 15:00 06/11/18 14:59 Vancomycin/Sodium Chloride 250 ml @ 166.667 mls/hr Q12H IVPB 05/12/18 17:00 05/17/18 16:59 05/13/18 04:28 Objective Narrative Gen: NAD. Mumbling HEENT: NCAT, MMM, EOMI, No Oral lesion, no scleral icterus NECK: full range of motion, supple, no meningismus, No LAD, No JVD LUNGS: CTAB, No W/C, No Accessory muscle use CARDS: RRR, S1, S2, No M/R/G ABD: Soft, NT, ND, No R/G, + BS, No HSM, No Masses : Deferred Ext: C/C/E, Pulses 2+ B/L (DP, Rad) NEURO: A/O x 0, Strength and Sensation Grossly intact PSYCH: mood/affect normal SKIN: Left foot wound. No purulent drainage, Feet now bandaged Assessment/Plan Assessment/Plan 68 yo male who was transferred from [place] where he initially presented for AMS from [facility]. Sepsis 2/2 to bacteremia Likely source is skin ulcer Blood Cx 05/12/18 at [facility] Febrile to 101 Leukocytosis to 27 AMS Likely secondary to sepsis Left foot wound No purulent drainage Cerebrovascular accident. Hypertension. Bilateral lower extremity decubitus ulcers. Bipolar disorder. Coronary artery disease. Plan - Continue Cefepime #2 and Zosyn #2 pending Cx - f/u Blood Cx - Wound care - Monitor CBC and Temps Thank you for this consult. We will continue to follow the patient during this hospitalization. iVnny Murray MD May 13, 2018 08:12
[2018-05-13 08:24] LABS: ANION GAP 9 mmol/L (5-15); BLOOD UREA NITROGEN 39 mg/dL (7-18); CALCIUM 9.5 MG/DL (8.5-10.1); CARBON DIOXIDE 23 MMOL/L (21-32); CHLORIDE 109 MMOL/L (98-107); CREATININE 0.9 MG/DL (0.55-1.30); POTASSIUM 5.2 MMOL/L (3.5-5.1); SODIUM 141 MMOL/L (136-145)
--- NOTE | 2018-05-13 08:36 | Consultation ---
History of Present Illness General Date patient seen: May 13, 2018 Time patient seen: 07:00 Chief Complaint: ALOC, Referring physician: dr Caban Reason for Consultation: Sepsis Present Illness HPI 68 y/old male, resident of [facility], with PMH of CVA, hypertension,coronary artery disease, pacemaker, bilateral lower extremity decubitus ulcers, bipolar disorder, was sent initially to [facility] for evaluation due to altered menta status. Upon evaluation he was found to be febrile with temperature 101. After inial workup in [place], patient was transferred to [facility] for insurance purposes. Upon initial evaluation at [facility] patient was afebrile , but tachycardic with heart rate 117. Telemetry showed atrial fibrillation with rapid ventricular response Laboratory workup revealed leukocytosis WBC 27.1 with neutrophil count 89%. Hemoglobin and hematocrit were stable. Chemistry revealed BUN 44 creatinine 0.8 ,glucose 111 . AST 98, ALT within normal limits . Troponin negative. Albumin 1.5 Chest x-ray showed asymmetric ill defined confluent groundglass opacity within the left mid/inferior lung. Patient was admitted to telemetry floor for further management Allergies: Coded Allergies: MILK (Verified Allergy, Unknown, 05/12/18) Patient History Limited by: medical condition - ALOC Healthcare decision maker Resuscitation status Full Code Advanced Directive on File No Review of Systems ROS Narrative unable to obtain 2 to ALOC Physical Exam General Appearance: no apparent distress, other - awake, confused Lines, tubes and drains: peripheral HEENT: normocephalic, atraumatic, anicteric Neck: supple Respiratory/Chest: other - scattered rhonchi , mild JVD Cardiovascular/Chest: irregularly irregular - pacing rhythm, simultaneously interchanging SR with frequent PVCs and AF, rate controlled Abdomen: normal bowel sounds, non tender, soft Extremities: no edema, other - bilateral necrotic foot wounds and gangrenous lesions, absent pedal pulses Neurologic: abnormal gait, other - awake, confused Musculoskeletal: atrophy - BLE Last 24 Hour Vital Signs Date Time Temp Pulse Resp B/P (MAP) Pulse Ox O2 Delivery O2 Flow Rate FiO2 05/13/18 04:00 89 05/13/18 03:56 97.7 74 20 145/60 (88) 92 05/13/18 00:00 97.9 83 18 128/84 (99) 93 05/13/18 00:00 95 05/12/18 21:41 84 152/81 05/12/18 21:00 Room Air 05/12/18 20:03 97.6 84 18 152/81 (104) 95 05/12/18 20:00 117 05/12/18 16:00 112 05/12/18 16:00 97.7 110 23 160/90 (113) 97 05/12/18 15:05 Room Air Intake and Output 05/12/18 05/13/18 19:00 07:00 Intake Total 483.334 ml Balance 483.334 ml Intake IV Total 483.334 ml # Voids 2 4 Laboratory Tests Test 05/12/18 16:10 05/13/18 07:00 White Blood Count 27.1 K/UL (4.8-10.8) *H 25.2 K/UL (4.8-10.8) *H Red Blood Count 4.69 M/UL (4.70-6.10) L 4.56 M/UL (4.70-6.10) L Hemoglobin 14.7 G/DL (14.2-18.0) 14.3 G/DL (14.2-18.0) Hematocrit 43.0 % (42.0-52.0) 42.8 % (42.0-52.0) Mean Corpuscular Volume 92 FL (80-99) 94 FL (80-99) Mean Corpuscular Hemoglobin 31.3 PG (27.0-31.0) H 31.3 PG (27.0-31.0) H Mean Corpuscular Hemoglobin Concent 34.1 G/DL (32.0-36.0) 33.4 G/DL (32.0-36.0) Red Cell Distribution Width 12.3 % (11.6-14.8) 12.8 % (11.6-14.8) Platelet Count 286 K/UL (150-450) 226 K/UL (150-450) Mean Platelet Volume 4.8 FL (6.5-10.1) L 5.0 FL (6.5-10.1) L Neutrophils (%) (Auto) % (45.0-75.0) % (45.0-75.0) Lymphocytes (%) (Auto) % (20.0-45.0) % (20.0-45.0) Monocytes (%) (Auto) % (1.0-10.0) % (1.0-10.0) Eosinophils (%) (Auto) % (0.0-3.0) % (0.0-3.0) Basophils (%) (Auto) % (0.0-2.0) % (0.0-2.0) Differential Total Cells Counted 100 Neutrophils % (Manual) 89 % (45-75) H Pending Lymphocytes % (Manual) 6 % (20-45) L Pending Monocytes % (Manual) 5 % (1-10) Eosinophils % (Manual) 0 % (0-3) Basophils % (Manual) 0 % (0-2) Band Neutrophils 0 % (0-8) Platelet Estimate Adequate Pending Platelet Morphology Normal Pending Red Blood Cell Morphology Normal Sodium Level 141 MMOL/L (136-145) 141 MMOL/L (136-145) Potassium Level 5.0 MMOL/L (3.5-5.1) 5.2 MMOL/L (3.5-5.1) H Chloride Level 109 MMOL/L (98-107) H 109 MMOL/L (98-107) H Carbon Dioxide Level 24 MMOL/L (21-32) 23 MMOL/L (21-32) Anion Gap 8 mmol/L (5-15) 9 mmol/L (5-15) Blood Urea Nitrogen 44 mg/dL (7-18) H 39 mg/dL (7-18) H Creatinine 0.8 MG/DL (0.55-1.30) 0.9 MG/DL (0.55-1.30) Estimat Glomerular Filtration Rate > 60 mL/min (>60) > 60 mL/min (>60) Glucose Level 111 MG/DL (74-106) H 108 MG/DL (74-106) H Calcium Level 9.2 MG/DL (8.5-10.1) 9.5 MG/DL (8.5-10.1) Total Bilirubin 0.6 MG/DL (0.2-1.0) Aspartate Amino Transf (AST/SGOT) 98 U/L (15-37) H Alanine Aminotransferase (ALT/SGPT) 30 U/L (12-78) Alkaline Phosphatase 120 U/L (46-116) H Troponin I 0.047 ng/mL (0.000-0.056) Total Protein 7.0 G/DL (6.4-8.2) Albumin 1.5 G/DL (3.4-5.0) L Globulin 5.5 g/dL Albumin/Globulin Ratio 0.3 (1.0-2.7) L Pro-B-Type Natriuretic Peptide Pending Digoxin Level Pending Height (Feet): 6 Height (Inches): 5.00 Weight (Pounds): 170 Medications Current Medications Medications (Trade) Dose Ordered Sig/Erlin Route PRN Reason Start Time Stop Time Status Last Admin Dose Admin Acetaminophen (Tylenol) 650 mg Q4H PRN ORAL Mild Pain/Temp > 100.5 05/12/18 15:00 06/11/18 14:59 Apixaban (Eliquis) 2.5 mg Q12HR ORAL 05/12/18 21:00 06/11/18 20:59 05/12/18 21:41 Cefepime HCl 1 gm/ Dextrose 55 ml @ 110 mls/hr EVERY 12 HOURS IVPB 05/12/18 21:00 05/19/18 20:59 05/12/18 21:42 Dextrose/ Electrolytes 1,000 ml @ 75 mls/hr [id number] IV 05/12/18 16:00 06/11/18 15:59 05/12/18 16:57 Digoxin (Lanoxin) 0.25 mg DAILY ORAL 05/13/18 09:00 06/12/18 08:59 Gabapentin (Neurontin) 100 mg THREE TIMES A DAY ORAL 05/12/18 18:00 06/11/18 17:59 05/12/18 17:05 Lorazepam (Ativan 2mg/ml 1ml) 1 mg Q4H PRN IV For Anxiety 05/12/18 15:15 05/19/18 15:14 Metoprolol Tartrate (Lopressor) 50 mg Q12HR ORAL 05/12/18 21:00 06/11/18 20:59 05/12/18 21:41 Midodrine (Pro-Amatine) 2.5 mg THREE TIMES A DAY ORAL 05/12/18 18:00 06/11/18 17:59 05/12/18 17:05 Morphine Sulfate (Morphine Sulfate) 2 mg Q4H PRN IVP For Pain 05/12/18 15:00 05/19/18 14:59 Quetiapine Fumarate (SEROquel) 100 mg BEDTIME ORAL 05/12/18 21:00 06/11/18 20:59 05/12/18 21:41 Vancomycin HCl (Vanco rx to dose) 1 ea DAILY PRN MISC Per rx protocol 05/12/18 15:00 06/11/18 14:59 Vancomycin/Sodium Chloride 250 ml @ 166.667 mls/hr Q12H IVPB 05/12/18 17:00 05/17/18 16:59 05/13/18 04:28 Assessment/Plan Assessment/Plan ASSESSMENT Sepsis secondary to bacteremia /GPC likely due to gangrenous ulcers BLE Bilateral necrotic foot wounds and gangrenous lesions Severe multi-level calcific arterial occlusive disease Possible infected lower extremity decubitus ulcer Acute encephalopathy, likely secondary to sepsis Atrial fibrillation with rapid ventricular response Borderline hypotension- resolved Hypertension Coronary artery disease History of CVA Dementia Bipolar disorder protein calorie malnutrition PLAN OF CARE tele rate control with BB and digoxin anticoagulation with Eliquis cardio follows hypotension resolved , possibly was due to sepsis, stop midodrine ECHO pending abx , ID follows fup with final culture blood cx in [place] + GPC wound care as per surgery recs O2 when necessary to keep sat above 92 pulmonary toilet when necessary vasc surgery eval pending PT/OT/ST psych meds resumed recommend psych eval supportive care bowel regimen diet eval re nutritional supplements pain management address prn case discussed and evaluated by supervising physician Linsey Boo NP May 13, 2018 08:36
--- NOTE | 2018-05-13 08:54 | Diagnostic Imaging Report ---
PORTABLE AP UPRIGHT CXR: HISTORY: 68-year-old male with cough. COMPARISON: None. FINDINGS: There is ill-defined asymmetric groundglass opacity throughout the left mid/inferior lung, with partial obscuration of especially the medial left hemidiaphragm. The right lung is grossly clear. Heart size is grossly normal in size, allowing for indistinct left heart border. No definite abnormal mediastinal widening, allowing for technique and mildly tortuous aorta. No obvious pneumothorax or effusion. IMPRESSION: Asymmetric ill-defined confluent groundglass opacity within the left mid/inferior lung, of uncertain etiology. PA and lateral CXR is suggested for further evaluation.
[2018-05-13] MEDS ORDERED: Albuterol/Ipratropium 3ml neb HHN PRN (09:00)
[2018-05-13] MEDS: Eliquis 2.5mg tablet ORAL SCH ×2 (09:19→21:34)
[2018-05-13] MEDS: Metoprolol Tartrate 50mg tab ORAL SCH ×2 (09:20→21:34)
[2018-05-13] MEDS: Cefepime HCl 1 GM in D5W 55 ML IVPB SCH ×2 (09:21→21:33)
[2018-05-13] MEDS: Morphine Sulfate 2mg/ml Inj IVP PRN ×2 (12:51→17:50)
--- NOTE | 2018-05-13 13:45 | Cardiology Report ---
APPROVED REPORT EXAM: Two-dimensional and M-mode echocardiogram with Doppler and color Doppler. INDICATION Congestive Heart Failure M-Mode DIMENSIONS IVSd1.7 (0.7-1.1cm)Left Atrium (MM)2.9 (1.6-4.0cm) LVDd3.5 (3.5-5.6cm)Aortic Root3.3 (2.0-3.7cm) PWd1.7 (0.7-1.1cm)Aortic Cusp Exc.2.0 (1.5-2.0cm) LVDs1.2 (2.5-4.0cm) PWs2.0 cm Technically difficult study due to poor acoustic windows. Study quality precludes accurate assessment of regional wall motion. Normal left ventricular chamber size, systolic function and wall motion. Left ventricular ejection fraction estimated to be 60-65 %. Moderate left ventricular hypertrophy. Possible moderate pleural effusion. All other cardiac chamber sizes are within normal limits. Mild focal aortic valve sclerosis with adequate cusp excursion. Mildly thickened mitral valve leaflets with normal excursion. Mild mitral annulus and aortic root calcification. Pulmonic valve not well visualized. Normal tricuspid valve structure. IVC is normal in size without physiological collapse. A color flow and spectral Doppler study was performed and revealed: Mild aortic insufficiency. Mild mitral regurgitation. Mitral diastolic velocities suggest mild left ventricular diastolic dysfunction (Grade I). Mild tricuspid regurgitation. Tricuspid systolic velocities suggests peak right ventricular systolic pressure of 45 mmHg, consistent with moderate pulmonary hypertension. Trace pulmonic regurgitation present.
--- NOTE | 2018-05-13 14:17 | General Surgery Progress Note ---
General Surgery-Progress Note Subjective Additional Comments leukocytosis marginally better. no n/v/f/c. more awake and responsive today. very foul smell from lower extremity wounds Objective Last 24 Hour Vital Signs Date Time Temp Pulse Resp B/P (MAP) Pulse Ox O2 Delivery O2 Flow Rate FiO2 05/13/18 13:21 97.7 05/13/18 12:00 97.7 69 20 134/71 (92) 100 05/13/18 09:20 72 146/86 05/13/18 09:20 72 05/13/18 08:20 Room Air 05/13/18 08:00 98.7 72 18 146/86 (106) 99 05/13/18 04:00 89 05/13/18 03:56 97.7 74 20 145/60 (88) 92 05/13/18 00:00 97.9 83 18 128/84 (99) 93 05/13/18 00:00 95 05/12/18 21:41 84 152/81 05/12/18 21:00 Room Air 05/12/18 20:03 97.6 84 18 152/81 (104) 95 05/12/18 20:00 117 05/12/18 16:00 112 05/12/18 16:00 97.7 110 23 160/90 (113) 97 05/12/18 15:05 Room Air I&O Intake and Output 05/12/18 05/13/18 19:00 07:00 Intake Total 483.334 ml Balance 483.334 ml Intake IV Total 483.334 ml # Voids 2 4 Dressing: saturated Wound: other Drains: other Cardiovascular: RSR Respiratory: clear Abdomen: soft, non-tender, present bowel sounds Extremities: other Laboratory Tests Test 05/12/18 16:10 05/13/18 07:00 White Blood Count 27.1 K/UL (4.8-10.8) *H 25.2 K/UL (4.8-10.8) *H Red Blood Count 4.69 M/UL (4.70-6.10) L 4.56 M/UL (4.70-6.10) L Hemoglobin 14.7 G/DL (14.2-18.0) 14.3 G/DL (14.2-18.0) Hematocrit 43.0 % (42.0-52.0) 42.8 % (42.0-52.0) Mean Corpuscular Volume 92 FL (80-99) 94 FL (80-99) Mean Corpuscular Hemoglobin 31.3 PG (27.0-31.0) H 31.3 PG (27.0-31.0) H Mean Corpuscular Hemoglobin Concent 34.1 G/DL (32.0-36.0) 33.4 G/DL (32.0-36.0) Red Cell Distribution Width 12.3 % (11.6-14.8) 12.8 % (11.6-14.8) Platelet Count 286 K/UL (150-450) 226 K/UL (150-450) Mean Platelet Volume 4.8 FL (6.5-10.1) L 5.0 FL (6.5-10.1) L Neutrophils (%) (Auto) % (45.0-75.0) % (45.0-75.0) Lymphocytes (%) (Auto) % (20.0-45.0) % (20.0-45.0) Monocytes (%) (Auto) % (1.0-10.0) % (1.0-10.0) Eosinophils (%) (Auto) % (0.0-3.0) % (0.0-3.0) Basophils (%) (Auto) % (0.0-2.0) % (0.0-2.0) Differential Total Cells Counted 100 100 Neutrophils % (Manual) 89 % (45-75) H 85 % (45-75) H Lymphocytes % (Manual) 6 % (20-45) L 4 % (20-45) L Monocytes % (Manual) 5 % (1-10) 11 % (1-10) H Eosinophils % (Manual) 0 % (0-3) 0 % (0-3) Basophils % (Manual) 0 % (0-2) 0 % (0-2) Band Neutrophils 0 % (0-8) 0 % (0-8) Platelet Estimate Adequate Adequate Platelet Morphology Normal Normal Red Blood Cell Morphology Normal Normal Sodium Level 141 MMOL/L (136-145) 141 MMOL/L (136-145) Potassium Level 5.0 MMOL/L (3.5-5.1) 5.2 MMOL/L (3.5-5.1) H Chloride Level 109 MMOL/L (98-107) H 109 MMOL/L (98-107) H Carbon Dioxide Level 24 MMOL/L (21-32) 23 MMOL/L (21-32) Anion Gap 8 mmol/L (5-15) 9 mmol/L (5-15) Blood Urea Nitrogen 44 mg/dL (7-18) H 39 mg/dL (7-18) H Creatinine 0.8 MG/DL (0.55-1.30) 0.9 MG/DL (0.55-1.30) Estimat Glomerular Filtration Rate > 60 mL/min (>60) > 60 mL/min (>60) Glucose Level 111 MG/DL (74-106) H 108 MG/DL (74-106) H Calcium Level 9.2 MG/DL (8.5-10.1) 9.5 MG/DL (8.5-10.1) Total Bilirubin 0.6 MG/DL (0.2-1.0) Aspartate Amino Transf (AST/SGOT) 98 U/L (15-37) H Alanine Aminotransferase (ALT/SGPT) 30 U/L (12-78) Alkaline Phosphatase 120 U/L (46-116) H Troponin I 0.047 ng/mL (0.000-0.056) Total Protein 7.0 G/DL (6.4-8.2) Albumin 1.5 G/DL (3.4-5.0) L Globulin 5.5 g/dL Albumin/Globulin Ratio 0.3 (1.0-2.7) L Pro-B-Type Natriuretic Peptide 1166 pg/mL (0-125) H Digoxin Level 1.9 NG/ML (0.5-2.0) Plan Problems: (1) Sepsis Assessment & Plan: etiology of leukocytosis unknown will need further work up IV abx appreciate ID input trend labs (2) Decubitus skin ulcer Assessment & Plan: Patient well known to me. Has had chronic wounds on sacrum, buttock, and lower extremities. Prior had maggots in lower extremities treated with Dakins and wound care which are since resolved. Multiple pressure ulcers. Patient unable to participate in exam and care plan. Now presents with multiple ulcerations to both lower extremities. Wounds are irregular malodorous. Both lower ext. cool to touch. Toes necrotic with ulcerations 1st, 2nd and 3rd metatarsals ulcerated. Ulcers dorsal aspects of toes L foot.Web spaces of toes are dry . Full thickness pressure injury to sacrum with 60% slough,(+) epibole.Wound measures (L)7cm x (W)7.5cm x (D)2.5cm. Periwound dark .Wound malodorous. Right buttock and ischial tuberosity which are large and with eschar cap unstageable full thickness. both heels have DTI with blood blisters noted. Wounds have significantly deteriorated since last admission with new wounds noted on lower extremities and buttock. Areas of prior maggot infection are healing but still with wounds. Refer to wound care photos for details. Tx.Plan: Cleanse both lower ext wounds with NS . Skin protectant .Dakin's 0.25% moist gauze, Cover with ABD and wrap with soft chavez daily an dprn Apply Light dusting of [place] Starch or baby powder in web spaces of toes on feet Clean sacral decubitus and buttock ulcer with NS, apply skin protectant / honey gel, apply foam dressing daily and prn Air Fluidized mattress on bed (P200). Encourage and assist with repositioning at least every 2hours or as tolerated. Off-load heels with pillow. would appreciate Podiatry and Vascular consult as I dont anticipate lower extremity will be salvageable at this time. Duplex studies Goyo Osuna May 13, 2018 14:17
[2018-05-13] MEDS: Dakin's 0.125% Soln (Quarter Strength) 16oz TOPIC SCH (14:19)
--- NOTE | 2018-05-13 14:24 | Internal Med Progress Note ---
Subjective Date of Service: May 13, 2018 Physician Name Daniel Jackson Attending Physician Pedro Caban MD Current Medications Medications (Trade) Dose Ordered Sig/Erlin Route PRN Reason Start Time Stop Time Status Last Admin Dose Admin Acetaminophen (Tylenol) 650 mg Q4H PRN ORAL Mild Pain/Temp > 100.5 05/12/18 15:00 06/11/18 14:59 Albuterol/ Ipratropium (Albuterol/ Ipratropium) 3 ml Q4H PRN HHN Shortness of Breath 05/13/18 09:00 05/18/18 08:59 Apixaban (Eliquis) 2.5 mg Q12HR ORAL 05/12/18 21:00 06/11/18 20:59 05/13/18 09:19 Cefepime HCl 1 gm/ Dextrose 55 ml @ 110 mls/hr EVERY 12 HOURS IVPB 05/12/18 21:00 05/19/18 20:59 05/13/18 09:21 Dextrose/ Electrolytes 1,000 ml @ 75 mls/hr [id number] IV 05/12/18 16:00 06/11/18 15:59 05/12/18 16:57 Digoxin (Lanoxin) 0.25 mg DAILY ORAL 05/13/18 09:00 06/12/18 08:59 05/13/18 09:20 Gabapentin (Neurontin) 100 mg THREE TIMES A DAY ORAL 05/12/18 18:00 06/11/18 17:59 05/13/18 14:03 Lorazepam (Ativan 2mg/ml 1ml) 1 mg Q4H PRN IV For Anxiety 05/12/18 15:15 05/19/18 15:14 Metoprolol Tartrate (Lopressor) 50 mg Q12HR ORAL 05/12/18 21:00 06/11/18 20:59 05/13/18 09:20 Morphine Sulfate (Morphine Sulfate) 2 mg Q4H PRN IVP For Pain 05/12/18 15:00 05/19/18 14:59 05/13/18 12:51 Quetiapine Fumarate (SEROquel) 100 mg BEDTIME ORAL 05/12/18 21:00 06/11/18 20:59 05/12/18 21:41 Vancomycin HCl (Vanco rx to dose) 1 ea DAILY PRN MISC Per rx protocol 05/12/18 15:00 06/11/18 14:59 Vancomycin/Sodium Chloride 250 ml @ 166.667 mls/hr Q12H IVPB 05/12/18 17:00 05/17/18 16:59 05/13/18 04:28 Allergies: Coded Allergies: MILK (Verified Allergy, Unknown, 05/12/18) ROS Limited/Unobtainable: Yes Subjective 68 YO A M admitted with altered mental status. Now sepsis. Cover for Int Med- Dr Caban. Agitated and yelling Objective Last Vital Signs Date Time Temp Pulse Resp B/P (MAP) Pulse Ox O2 Delivery O2 Flow Rate FiO2 05/13/18 13:21 97.7 05/13/18 12:00 69 20 134/71 (92) 100 05/13/18 08:20 Room Air General Appearance: alert, thin, agitated EENT: PERRL/EOMI, normal ENT inspection Neck: non-tender, normal alignment, supple, normal inspection Cardiovascular: normal peripheral pulses, normal rate, no gallop/murmur, no JVD , irregularly irregular Respiratory/Chest: chest wall non-tender, lungs clear, normal breath sounds, no respiratory distress, no accessory muscle use Abdomen: normal bowel sounds, non tender, soft, no organomegaly, no mass Extremities: normal range of motion, non-tender Neurologic: story teller II-XII grossly normal, no motor/sensory deficits Skin: normal pigmentation, warm/dry, other - multiple decubitus ulcers bilat lower ext Laboratory Tests Test 05/12/18 16:10 05/13/18 07:00 White Blood Count 27.1 K/UL (4.8-10.8) *H 25.2 K/UL (4.8-10.8) *H Red Blood Count 4.69 M/UL (4.70-6.10) L 4.56 M/UL (4.70-6.10) L Hemoglobin 14.7 G/DL (14.2-18.0) 14.3 G/DL (14.2-18.0) Hematocrit 43.0 % (42.0-52.0) 42.8 % (42.0-52.0) Mean Corpuscular Volume 92 FL (80-99) 94 FL (80-99) Mean Corpuscular Hemoglobin 31.3 PG (27.0-31.0) H 31.3 PG (27.0-31.0) H Mean Corpuscular Hemoglobin Concent 34.1 G/DL (32.0-36.0) 33.4 G/DL (32.0-36.0) Red Cell Distribution Width 12.3 % (11.6-14.8) 12.8 % (11.6-14.8) Platelet Count 286 K/UL (150-450) 226 K/UL (150-450) Mean Platelet Volume 4.8 FL (6.5-10.1) L 5.0 FL (6.5-10.1) L Neutrophils (%) (Auto) % (45.0-75.0) % (45.0-75.0) Lymphocytes (%) (Auto) % (20.0-45.0) % (20.0-45.0) Monocytes (%) (Auto) % (1.0-10.0) % (1.0-10.0) Eosinophils (%) (Auto) % (0.0-3.0) % (0.0-3.0) Basophils (%) (Auto) % (0.0-2.0) % (0.0-2.0) Differential Total Cells Counted 100 100 Neutrophils % (Manual) 89 % (45-75) H 85 % (45-75) H Lymphocytes % (Manual) 6 % (20-45) L 4 % (20-45) L Monocytes % (Manual) 5 % (1-10) 11 % (1-10) H Eosinophils % (Manual) 0 % (0-3) 0 % (0-3) Basophils % (Manual) 0 % (0-2) 0 % (0-2) Band Neutrophils 0 % (0-8) 0 % (0-8) Platelet Estimate Adequate Adequate Platelet Morphology Normal Normal Red Blood Cell Morphology Normal Normal Sodium Level 141 MMOL/L (136-145) 141 MMOL/L (136-145) Potassium Level 5.0 MMOL/L (3.5-5.1) 5.2 MMOL/L (3.5-5.1) H Chloride Level 109 MMOL/L (98-107) H 109 MMOL/L (98-107) H Carbon Dioxide Level 24 MMOL/L (21-32) 23 MMOL/L (21-32) Anion Gap 8 mmol/L (5-15) 9 mmol/L (5-15) Blood Urea Nitrogen 44 mg/dL (7-18) H 39 mg/dL (7-18) H Creatinine 0.8 MG/DL (0.55-1.30) 0.9 MG/DL (0.55-1.30) Estimat Glomerular Filtration Rate > 60 mL/min (>60) > 60 mL/min (>60) Glucose Level 111 MG/DL (74-106) H 108 MG/DL (74-106) H Calcium Level 9.2 MG/DL (8.5-10.1) 9.5 MG/DL (8.5-10.1) Total Bilirubin 0.6 MG/DL (0.2-1.0) Aspartate Amino Transf (AST/SGOT) 98 U/L (15-37) H Alanine Aminotransferase (ALT/SGPT) 30 U/L (12-78) Alkaline Phosphatase 120 U/L (46-116) H Troponin I 0.047 ng/mL (0.000-0.056) Total Protein 7.0 G/DL (6.4-8.2) Albumin 1.5 G/DL (3.4-5.0) L Globulin 5.5 g/dL Albumin/Globulin Ratio 0.3 (1.0-2.7) L Pro-B-Type Natriuretic Peptide 1166 pg/mL (0-125) H Digoxin Level 1.9 NG/ML (0.5-2.0) Intake and Output 05/12/18 05/13/18 19:00 07:00 Intake Total 483.334 ml Balance 483.334 ml Intake IV Total 483.334 ml # Voids 2 4 Assessment/Plan Problem List: (1) CHF (congestive heart failure) Assessment & Plan: See cardiology note (2) Atrial fibrillation with rapid ventricular response Assessment & Plan: continue metoprolol and digoxin per cardiology. Continue eliquis (3) Hypertension Assessment & Plan: continue metoprolol (4) CAD (coronary artery disease) (5) Bipolar disorder (6) Fever (7) Decubitus skin ulcer Assessment & Plan: await surgery consult. (8) Sepsis Assessment & Plan: Gram pos cocci. Await ID and sens. Continue cefepime and vanco per ID Status: not improved Daniel Jackson MD May 13, 2018 14:24
--- NOTE | 2018-05-13 15:03 | Cardiac Electrophysiology PN ---
Assessment/Plan Assessment/Plan 1. Paroxysmal Atrial fibrillation with rapid ventricular response. Continue digoxin 0.25 mg daily and metoprolol 50 mg b.i.d. and Eliquis 2.5 mg b.i.d. 2. Borderline hypotension. The patient is on midodrine. 3. Fever and sepsis, on antibiotic with vancomycin and cefepime. 4. History of dementia and severe psychosis, on Seroquel. 5. Severe bilateral leg ulcers and sacral decubitus. FU Dr Osuna Has had chronic wounds on sacrum, buttock, and lower extremities. Prior had maggots in lower extremities treated with Prince GERMAN RN Subjective Subjective Feeling better. In SR with PACs Objective Last 24 Hour Vital Signs Date Time Temp Pulse Resp B/P (MAP) Pulse Ox O2 Delivery O2 Flow Rate FiO2 05/13/18 13:21 97.7 05/13/18 12:00 97.7 69 20 134/71 (92) 100 05/13/18 09:20 72 146/86 05/13/18 09:20 72 05/13/18 08:20 Room Air 05/13/18 08:00 98.7 72 18 146/86 (106) 99 05/13/18 04:00 89 05/13/18 03:56 97.7 74 20 145/60 (88) 92 05/13/18 00:00 97.9 83 18 128/84 (99) 93 05/13/18 00:00 95 05/12/18 21:41 84 152/81 05/12/18 21:00 Room Air 05/12/18 20:03 97.6 84 18 152/81 (104) 95 05/12/18 20:00 117 05/12/18 16:00 112 05/12/18 16:00 97.7 110 23 160/90 (113) 97 05/12/18 15:05 Room Air Intake and Output 05/12/18 05/13/18 19:00 07:00 Intake Total 483.334 ml Balance 483.334 ml Intake IV Total 483.334 ml # Voids 2 4 Laboratory Tests Test 05/12/18 16:10 05/13/18 07:00 White Blood Count 27.1 K/UL (4.8-10.8) *H 25.2 K/UL (4.8-10.8) *H Red Blood Count 4.69 M/UL (4.70-6.10) L 4.56 M/UL (4.70-6.10) L Hemoglobin 14.7 G/DL (14.2-18.0) 14.3 G/DL (14.2-18.0) Hematocrit 43.0 % (42.0-52.0) 42.8 % (42.0-52.0) Mean Corpuscular Volume 92 FL (80-99) 94 FL (80-99) Mean Corpuscular Hemoglobin 31.3 PG (27.0-31.0) H 31.3 PG (27.0-31.0) H Mean Corpuscular Hemoglobin Concent 34.1 G/DL (32.0-36.0) 33.4 G/DL (32.0-36.0) Red Cell Distribution Width 12.3 % (11.6-14.8) 12.8 % (11.6-14.8) Platelet Count 286 K/UL (150-450) 226 K/UL (150-450) Mean Platelet Volume 4.8 FL (6.5-10.1) L 5.0 FL (6.5-10.1) L Neutrophils (%) (Auto) % (45.0-75.0) % (45.0-75.0) Lymphocytes (%) (Auto) % (20.0-45.0) % (20.0-45.0) Monocytes (%) (Auto) % (1.0-10.0) % (1.0-10.0) Eosinophils (%) (Auto) % (0.0-3.0) % (0.0-3.0) Basophils (%) (Auto) % (0.0-2.0) % (0.0-2.0) Differential Total Cells Counted 100 100 Neutrophils % (Manual) 89 % (45-75) H 85 % (45-75) H Lymphocytes % (Manual) 6 % (20-45) L 4 % (20-45) L Monocytes % (Manual) 5 % (1-10) 11 % (1-10) H Eosinophils % (Manual) 0 % (0-3) 0 % (0-3) Basophils % (Manual) 0 % (0-2) 0 % (0-2) Band Neutrophils 0 % (0-8) 0 % (0-8) Platelet Estimate Adequate Adequate Platelet Morphology Normal Normal Red Blood Cell Morphology Normal Normal Sodium Level 141 MMOL/L (136-145) 141 MMOL/L (136-145) Potassium Level 5.0 MMOL/L (3.5-5.1) 5.2 MMOL/L (3.5-5.1) H Chloride Level 109 MMOL/L (98-107) H 109 MMOL/L (98-107) H Carbon Dioxide Level 24 MMOL/L (21-32) 23 MMOL/L (21-32) Anion Gap 8 mmol/L (5-15) 9 mmol/L (5-15) Blood Urea Nitrogen 44 mg/dL (7-18) H 39 mg/dL (7-18) H Creatinine 0.8 MG/DL (0.55-1.30) 0.9 MG/DL (0.55-1.30) Estimat Glomerular Filtration Rate > 60 mL/min (>60) > 60 mL/min (>60) Glucose Level 111 MG/DL (74-106) H 108 MG/DL (74-106) H Calcium Level 9.2 MG/DL (8.5-10.1) 9.5 MG/DL (8.5-10.1) Total Bilirubin 0.6 MG/DL (0.2-1.0) Aspartate Amino Transf (AST/SGOT) 98 U/L (15-37) H Alanine Aminotransferase (ALT/SGPT) 30 U/L (12-78) Alkaline Phosphatase 120 U/L (46-116) H Troponin I 0.047 ng/mL (0.000-0.056) Total Protein 7.0 G/DL (6.4-8.2) Albumin 1.5 G/DL (3.4-5.0) L Globulin 5.5 g/dL Albumin/Globulin Ratio 0.3 (1.0-2.7) L Pro-B-Type Natriuretic Peptide 1166 pg/mL (0-125) H Digoxin Level 1.9 NG/ML (0.5-2.0) Objective HEAD AND NECK: Mild JVD. LUNGS: Coarse rhonchi. CARDIOVASCULAR: Shows irregular S1 and S2 with no gallop or murmur. ABDOMEN: Soft. EXTREMITIES: No pitting edema.Bilateral leg ulcers Toluie,Amandeep MD May 13, 2018 15:03
[2018-05-13] MEDS ORDERED: Tubing IV Secondary IV ONE (15:56)
[2018-05-13] MEDS: Potassium Chloride 10 MEQ in D5 1/2NS 1,000 ML IV SCH (16:03)
--- NOTE | 2018-05-13 16:52 | Diagnostic Imaging Report ---
EXAM: US Duplex Bilateral Lower Extremity Veins CLINICAL HISTORY: PAIN TECHNIQUE: Real-time duplex ultrasound scan of the bilateral lower extremity veins integrating B-mode two-dimensional vascular structure, Doppler spectral analysis, color flow Doppler imaging and compression. COMPARISON: No relevant prior studies available. FINDINGS: Right deep veins: DVT in the right distal superficial femoral vein. No DVT in the right common femoral vein. Right popliteal veins and veins below the knee were not imaged due to patient's pain. Right superficial veins: Unremarkable. Left deep veins: Unremarkable. No DVT in the left common femoral, femoral, proximal deep femoral or popliteal veins. The veins demonstrate normal color flow, are normally compressible, with normal phasic flow and/or augmentation response. Left superficial veins: Unremarkable. . Soft tissues: No popliteal cyst. IMPRESSION: DVT in the right distal superficial femoral vein. Critical Value Communications 05/13/18 16:56 Call Doctor Regarding Acute DVT, called Dr. Osuna on 05/13 16:56 (-08:00)
--- NOTE | 2018-05-13 16:54 | Diagnostic Imaging Report ---
EXAM: US Duplex Bilateral Lower Extremity Arteries CLINICAL HISTORY: PAIN TECHNIQUE: Real-time duplex ultrasound scan of the bilateral lower extremity arteries integrating B-mode two-dimensional vascular structure, Doppler spectral analysis and color flow Doppler imaging. COMPARISON: No relevant prior studies available. FINDINGS: Right common femoral artery: No occlusion or significant stenosis on color flow and spectral Doppler imaging. No abnormal increased peak systolic velocities. Normal multiphasic waveform. Right superficial femoral artery: No occlusion or significant stenosis on color flow and spectral Doppler imaging. No abnormal increased peak systolic velocities. Normal multiphasic waveform. Right popliteal artery: Nonvisualized due to patient's pain. Right calf/foot arteries: Nonvisualized due to patient's pain. Left common femoral artery: No occlusion or significant stenosis on color flow and spectral Doppler imaging. No abnormal increased peak systolic velocities. Normal multiphasic waveform. Left superficial femoral artery: No occlusion or significant stenosis on color flow and spectral Doppler imaging. No abnormal increased peak systolic velocities. Normal multiphasic waveform. Left popliteal artery: No occlusion or significant stenosis on color flow and spectral Doppler imaging. No abnormal increased peak systolic velocities. Normal multiphasic waveform. Left calf/foot arteries: Nonvisualized due to patient's pain. Soft tissues: Unremarkable. IMPRESSION: Right popliteal artery and right calf arteries were nonvisualized due to patient's pain. Left calf arteries were not visualized due to patient's pain. Otherwise unremarkable and patent appearance of the remaining visualized bilateral lower extremity arteries.
--- NOTE | 2018-05-13 18:04 | General Progress Note ---
Progress Note Progress Note Patient seen and examined Consult dictated #[id number] Carlin Streeter MD May 13, 2018 18:04
--- NOTE | 2018-05-13 19:00 | Consultation ---
DATE OF CONSULTATION: 05/13/2018 VASCULAR SURGERY CONSULTATION CONSULTING PHYSICIAN: Carlin Streeter M.D. REFERRING PHYSICIANS: 1. Goyo Osuna M.D. 2. Bayron Chaudhary M.D. REASON FOR EVALUATION: Lower extremity gangrene, necrosis. HISTORY OF PRESENT ILLNESS: This is a 68-year-old male, who presented with altered mental status and fever and sepsis and leukocytosis. The patient was found to have extensive necrosis and gangrenous left foot as well as right calf necrotic tendons and foot necrosis with knee contracture. The patient has a white count of 27,000, had a temperature of 101. The patient currently is confused and disoriented. All the history obtained from the medical records. He is nonambulatory and resides in a convalescent long term. PAST MEDICAL HISTORY: As above. History of stroke, nonambulatory, hypertension, extensive decubitus necrosis, knee contracture, bipolar disorder, coronary disease. MEDICATIONS: See attached MAR. ALLERGIES: He is allergic to milk. No medication. SOCIAL HISTORY: Resides in a convalescent long term. Otherwise, unobtainable due to altered mental status. PHYSICAL EXAMINATION: VITAL SIGNS: Temperature is 97.7, heart rate is 112, respirations 23, blood pressure 160/90, and saturation 97%. GENERAL: He is awake, but completely confused, disoriented x3. HEART: He has sinus tachycardia. LUNGS: Clear to auscultation. ABDOMEN: Soft, nontender. EXTREMITIES: He has palpable femoral pulses. Absent popliteal. Absent pedal pulses. He has bilateral knee contracture, stiff. He has left foot distal gangrene. He has extensive right foot decubitus necrosis and right calf necrotic tendon and wound. Feet are cool. LABORATORY AND DIAGNOSTIC DATA: Laboratory revealed, WBC of 27.1, hemoglobin 14.7, and platelet count is 286,000. Sodium is 141, potassium is 5, chloride is 109, CO2 is 24, BUN is 44, creatinine is 0.8. ALT is 30 and AST 98. Troponin 0.047. Albumin is 1.5. IMPRESSION: 1. Septic with bilateral necrotic foot wounds and gangrenous lesions with right calf necrotic tendon with severe knee contracture, nonambulatory, and severe multi-level calcific arterial occlusive disease with absent pedal pulses. 2. Both legs are not salvageable and the patient will require [id number] leg amputation. 3. Altered mental status from sepsis with a history of stroke, dementia, and encephalopathy. 4. Poor nutrition. 5. Hypertension. 6. Lower extremity duplex revealed right lower extremity deep venous thrombosis. PLAN OF ACTION: 1. The patient will require bilateral leg above-knee amputation. 2. Anticoagulate for his arrhythmia and his right leg deep venous thrombosis. 3. Optimize nutrition. May need a feeding gastrostomy tube. 4. Decubitus precautions. The above is discussed at length with the patient and the nurse at bedside. Carlin Streeter M.D. DR: MELVA JOB#: [id number] CC: Carlin Streeter M.D.; Fax#: [phone] Gen Angelo M.D.; FAX#: [phone] BAYRON CHAUDHARY M.D.; FAX#: [phone]
--- NOTE | 2018-05-13 19:16 | Consultation ---
Consult Note Assessment/Plan Podiatry Consult Dictated Agree with [facility] surgery recs Thank you aGrland Duarte DPM May 13, 2018 19:16
[2018-05-14] VITALS: BP 122/72
[2018-05-14 04:51] LABS: HEMATOCRIT 44.4 % (42.0-52.0); MEAN CORPUSCULAR VOLUME 94 FL (80-99); PLATELET COUNT 227 K/UL (150-450); RED BLOOD COUNT 4.75 M/UL (4.70-6.10); RED CELL DISTRIBUTION WIDTH 12.9 % (11.6-14.8); WHITE BLOOD COUNT 20.7 K/UL (4.8-10.8)
[2018-05-14] MEDS: Vancomycin 750mg/NS 250ml IVPB SCH ×3 (05:11→21:41)
[2018-05-14] MEDS: Potassium Chloride 10 MEQ in D5 1/2NS 1,000 ML IV SCH ×2 (05:12→17:12)
[2018-05-14 05:24] LABS: CHOLESTEROL 136 MG/DL (< 200); HDL CHOLESTEROL 25 MG/DL (40-60); TRIGLYCERIDES 159 MG/DL (30-150)
[2018-05-14 05:29] LABS: ANION GAP 6 mmol/L (5-15); BLOOD UREA NITROGEN 31 mg/dL (7-18); CALCIUM 9.5 MG/DL (8.5-10.1); CARBON DIOXIDE 25 MMOL/L (21-32); CHLORIDE 111 MMOL/L (98-107); CREATININE 0.7 MG/DL (0.55-1.30); POTASSIUM 4.7 MMOL/L (3.5-5.1); SODIUM 142 MMOL/L (136-145)
[2018-05-14 05:59] VITALS: BP 142/92
--- NOTE | 2018-05-14 07:41 | Pulmonology Progress Note ---
Assessment/Plan Assessment/Plan ASSESSMENT Sepsis secondary to bacteremia /GPC likely due to necrotic ulcers BLE Bilateral necrotic foot wounds and gangrenous lesions with right calf necrotic tendon with severe knee contracture, Severe multi-level calcific arterial occlusive disease Acute encephalopathy, likely secondary to sepsis Atrial fibrillation with rapid ventricular response Borderline hypotension- resolved Acute DVT R SFV Hypertension Coronary artery disease History of CVA Dementia Bipolar disorder protein calorie malnutrition PLAN OF CARE tele rate control with BB and digoxin anticoagulation with Eliquis (for A fib and acute DVT R SFV) cardio follows hypotension resolved , possibly was due to sepsis, stop midodrine ECHO with pEF 60-65% and RVSP of 45 c/w mod pulm HTN vas surgery and podiatry eval appreciated per vas surgery legs not salvageable and pt will need bilateral AKA wound care as per adjuster piano action recs lipid panel with borderline TG, low fat low cholesterol diet abx , ID follows fup with final culture blood cx in [place] + GPC prelim blood cx here negative leuk trending down,still significant wound care as per surgery recs O2 prn to keep sat above 92, pulmonary toilet prn PT/OT/ST psych meds resumed recommend psych eval supportive care bowel regimen diet eval re nutritional supplements pain management prn case discussed and evaluated by supervising physician Subjective Allergies: Coded Allergies: MILK (Verified Allergy, Unknown, 05/12/18) Subjective leukocytosis trending down,still significant seen and evaluated by [facility] surgeon Objective Last 24 Hour Vital Signs Date Time Temp Pulse Resp B/P (MAP) Pulse Ox O2 Delivery O2 Flow Rate FiO2 05/14/18 06:03 85 05/14/18 05:59 97.7 73 20 142/92 (109) 100 05/14/18 00:00 72 05/14/18 00:00 97.9 70 20 122/72 (89) 94 05/13/18 22:42 97.2 85 20 150/85 (106) 97 05/13/18 22:36 Room Air 05/13/18 22:34 109 05/13/18 22:32 97.2 85 20 150/85 (106) 97 05/13/18 21:34 85 150/85 05/13/18 20:54 98 20 Room Air 21 05/13/18 20:00 97.2 85 20 150/85 (106) 97 05/13/18 18:20 98.2 11/24/18 16:51 87 05/13/18 16:00 98.2 80 18 138/84 (102) 98 05/13/18 12:00 97.7 69 20 134/71 (92) 100 05/13/18 11:52 86 05/13/18 09:20 72 146/86 05/13/18 09:20 72 05/13/18 08:20 Room Air 05/13/18 08:00 98.7 72 18 146/86 (106) 99 05/13/18 07:53 105 Intake and Output 05/13/18 05/14/18 19:00 07:00 Intake Total 75 ml 692 ml Output Total 500 ml Balance 75 ml 192 ml Intake IV Total 75 ml 692 ml Output Urine Total 500 ml # Voids 3 # Bowel Movements 1 Objective General Appearance: no apparent distress, awake, confused HEENT: normocephalic, atraumatic, anicteric Neck: supple Respiratory/Chest: few scattered rhonchi , mild JVD Cardiovascular/Chest: irregularly irregular - pacing rhythm, simultaneously interchanging SR with frequent PVCs and AF, rate controlled Abdomen: normal bowel sounds, non tender, soft Extremities: no edema bilateral necrotic foot wounds and gangrenous lesions, absent pedal pulses Neurologic: abnormal gait, awake, confused Musculoskeletal: atrophy - BLE Microbiology Date/Time Source Procedure Growth Status 05/12/18 16:10 Blood Blood Culture - Preliminary NO GROWTH AFTER 24 HOURS Resulted 05/12/18 16:00 Blood Blood Culture - Preliminary NO GROWTH AFTER 24 HOURS Resulted 05/12/18 14:20 Nasal Nares MRSA Culture - Preliminary Resulted Laboratory Tests 05/13/18 14:30: Troponin I 0.036 05/14/18 04:30: Troponin I 0.032, White Blood Count 20.7H, Red Blood Count 4.75, Hemoglobin 14.0L, Hematocrit 44.4, Mean Corpuscular Volume 94, Mean Corpuscular Hemoglobin 29.4, Mean Corpuscular Hemoglobin Concent 31.4L, Red Cell Distribution Width 12.9, Platelet Count 227, Mean Platelet Volume 5.1L, Neutrophils (%) (Auto) , Lymphocytes (%) (Auto) , Monocytes (%) (Auto) , Eosinophils (%) (Auto) , Basophils (%) (Auto) , Neutrophils % (Manual) [Pending], Lymphocytes % (Manual) [Pending], Platelet Estimate [Pending], Platelet Morphology [Pending], Sodium Level 142, Potassium Level 4.7, Chloride Level 111H, Carbon Dioxide Level 25, Anion Gap 6, Blood Urea Nitrogen 31H, Creatinine 0.7, Estimat Glomerular Filtration Rate > 60, Glucose Level 140H, Calcium Level 9.5, Triglycerides Level 159H, Cholesterol Level 136, LDL Cholesterol 80, HDL Cholesterol 25L, Cholesterol/HDL Ratio 5.4H, Thyroid Stimulating Hormone (TSH) 1.465, Vancomycin Level Trough 11.3 Current Medications Medications (Trade) Dose Ordered Sig/Erlin Route PRN Reason Start Time Stop Time Status Last Admin Dose Admin Acetaminophen (Tylenol) 650 mg Q4H PRN ORAL Mild Pain/Temp > 100.5 05/12/18 15:00 06/11/18 14:59 Albuterol/ Ipratropium (Albuterol/ Ipratropium) 3 ml Q4H PRN HHN Shortness of Breath 05/13/18 09:00 05/18/18 08:59 Apixaban (Eliquis) 2.5 mg Q12HR ORAL 05/12/18 21:00 06/11/18 20:59 05/13/18 21:34 Cefepime HCl 1 gm/ Dextrose 55 ml @ 110 mls/hr EVERY 12 HOURS IVPB 05/12/18 21:00 05/19/18 20:59 05/13/18 21:33 Digoxin (Lanoxin) 0.25 mg DAILY ORAL 05/13/18 09:00 06/12/18 08:59 05/13/18 09:20 Gabapentin (Neurontin) 100 mg THREE TIMES A DAY ORAL 05/12/18 18:00 06/11/18 17:59 05/13/18 18:06 Lorazepam (Ativan 2mg/ml 1ml) 1 mg Q4H PRN IV For Anxiety 05/12/18 15:15 05/19/18 15:14 Metoprolol Tartrate (Lopressor) 50 mg Q12HR ORAL 05/12/18 21:00 06/11/18 20:59 05/13/18 21:34 Morphine Sulfate (Morphine Sulfate) 2 mg Q4H PRN IVP For Pain 05/12/18 15:00 05/19/18 14:59 05/13/18 17:50 Potassium Chloride 10 meq/ Dextrose/Sodium Chloride 1,005 ml @ 75 mls/hr [id number] IV 05/13/18 15:00 06/12/18 14:59 05/14/18 05:12 Quetiapine Fumarate (SEROquel) 100 mg BEDTIME ORAL 05/12/18 21:00 06/11/18 20:59 05/13/18 21:33 Sodium Hypochlorite (Dakin's Quarter Strength) 1 applic DAILY TOPIC 05/13/18 14:19 06/12/18 14:18 Vancomycin HCl (Vanco rx to dose) 1 ea DAILY PRN MISC Per rx protocol 05/12/18 15:00 06/11/18 14:59 Vancomycin/Sodium Chloride 250 ml @ 166.667 mls/hr Q12H IVPB 05/12/18 17:00 05/17/18 16:59 05/14/18 05:11 Linsey Boo NP May 14, 2018 07:41
[2018-05-14 08:00] VITALS: BP 137/83
[2018-05-14] MEDS: Dakin's 0.125% Soln (Quarter Strength) 16oz TOPIC SCH (08:21)
[2018-05-14] MEDS: Eliquis 2.5mg tablet ORAL SCH ×2 (08:22→21:39)
[2018-05-14] MEDS: Metoprolol Tartrate 50mg tab ORAL SCH ×2 (08:22→21:40)
[2018-05-14] MEDS: Cefepime HCl 1 GM in D5W 55 ML IVPB SCH ×2 (08:22→21:42)
[2018-05-14] MEDS ORDERED: [UNRECOGNIZED DRUG - OTHER] IV SCH ×2 (09:30)
[2018-05-14] MEDS ORDERED: NS 275ml ONE (10:23)
[2018-05-14 12:00] VITALS: BP 138/83
--- NOTE | 2018-05-14 14:13 | Cardiac Electrophysiology PN ---
Assessment/Plan Assessment/Plan 1. Paroxysmal Atrial fibrillation with rapid ventricular response. In SR digoxin 0.25 mg daily and metoprolol 50 mg bid and Eliquis 2.5 mg b.i.d. 2. Borderline hypotension. Now off midodrine. 3. Fever and sepsis, on antibiotic with vancomycin and cefepime. 4. History of dementia and severe psychosis, on Seroquel. 5. Severe bilateral leg ulcers and sacral decubitus. FU Dr Osuna Has had chronic wounds on sacrum, buttock, and lower extremities. Prior had maggots in lower extremities treated with Dakins Need to hold Eliquis if surgery is planned DW RN Subjective Subjective In SR with PACs. No CP or SOB Objective Last 24 Hour Vital Signs Date Time Temp Pulse Resp B/P (MAP) Pulse Ox O2 Delivery O2 Flow Rate FiO2 05/14/18 12:00 68 05/14/18 12:00 97.3 63 22 138/83 (101) 95 05/14/18 09:00 Room Air 05/14/18 08:30 91 20 Room Air 21 05/14/18 08:22 80 137/83 05/14/18 08:22 80 05/14/18 08:00 97.3 80 19 137/83 (101) 95 05/14/18 08:00 88 05/14/18 06:03 85 05/14/18 05:59 97.7 73 20 142/92 (109) 100 05/14/18 00:00 72 05/14/18 00:00 97.9 70 20 122/72 (89) 94 05/13/18 22:42 97.2 85 20 150/85 (106) 97 05/13/18 22:36 Room Air 05/13/18 22:34 109 05/13/18 22:32 97.2 85 20 150/85 (106) 97 05/13/18 21:34 85 150/85 05/13/18 20:54 98 20 Room Air 21 05/13/18 20:00 97.2 85 20 150/85 (106) 97 05/13/18 18:20 98.2 05/13/18 16:51 87 05/13/18 16:00 98.2 80 18 138/84 (102) 98 Intake and Output 05/13/18 05/14/18 19:00 07:00 Intake Total 75 ml 692 ml Output Total 500 ml Balance 75 ml 192 ml Intake IV Total 75 ml 692 ml Output Urine Total 500 ml # Voids 3 # Bowel Movements 1 Laboratory Tests Test 05/13/18 14:30 05/14/18 04:30 Troponin I 0.036 ng/mL (0.000-0.056) 0.032 ng/mL (0.000-0.056) White Blood Count 20.7 K/UL (4.8-10.8) H Red Blood Count 4.75 M/UL (4.70-6.10) Hemoglobin 14.0 G/DL (14.2-18.0) L Hematocrit 44.4 % (42.0-52.0) Mean Corpuscular Volume 94 FL (80-99) Mean Corpuscular Hemoglobin 29.4 PG (27.0-31.0) Mean Corpuscular Hemoglobin Concent 31.4 G/DL (32.0-36.0) L Red Cell Distribution Width 12.9 % (11.6-14.8) Platelet Count 227 K/UL (150-450) Mean Platelet Volume 5.1 FL (6.5-10.1) L Neutrophils (%) (Auto) % (45.0-75.0) Lymphocytes (%) (Auto) % (20.0-45.0) Monocytes (%) (Auto) % (1.0-10.0) Eosinophils (%) (Auto) % (0.0-3.0) Basophils (%) (Auto) % (0.0-2.0) Differential Total Cells Counted 100 Neutrophils % (Manual) 91 % (45-75) H Lymphocytes % (Manual) 4 % (20-45) L Monocytes % (Manual) 5 % (1-10) Eosinophils % (Manual) 0 % (0-3) Basophils % (Manual) 0 % (0-2) Band Neutrophils 0 % (0-8) Platelet Estimate Adequate Platelet Morphology Normal Red Blood Cell Morphology Normal Sodium Level 142 MMOL/L (136-145) Potassium Level 4.7 MMOL/L (3.5-5.1) Chloride Level 111 MMOL/L (98-107) H Carbon Dioxide Level 25 MMOL/L (21-32) Anion Gap 6 mmol/L (5-15) Blood Urea Nitrogen 31 mg/dL (7-18) H Creatinine 0.7 MG/DL (0.55-1.30) Estimat Glomerular Filtration Rate > 60 mL/min (>60) Glucose Level 140 MG/DL (74-106) H Calcium Level 9.5 MG/DL (8.5-10.1) Triglycerides Level 159 MG/DL (30-150) H Cholesterol Level 136 MG/DL (< 200) LDL Cholesterol 80 mg/dL (<100) HDL Cholesterol 25 MG/DL (40-60) L Cholesterol/HDL Ratio 5.4 (3.3-4.4) H Thyroid Stimulating Hormone (TSH) 1.465 uiU/mL (0.358-3.740) Vancomycin Level Trough 11.3 ug/mL (5.0-12.0) Microbiology Date/Time Source Procedure Growth Status 05/12/18 16:10 Blood Blood Culture - Preliminary NO GROWTH AFTER 24 HOURS Resulted 05/12/18 16:00 Blood Blood Culture - Preliminary NO GROWTH AFTER 24 HOURS Resulted 05/12/18 14:20 Nasal Nares MRSA Culture - Preliminary Resulted 05/12/18 17:30 Indwelling Cath Urine Culture - Preliminary Mixed Gram Positive Organism Resulted Objective HEAD AND NECK: Mild JVD. LUNGS: Coarse rhonchi. CARDIOVASCULAR: Irregular S1 and S2 with no gallop or murmur. ABDOMEN: Soft. EXTREMITIES: No pitting edema.Bilateral leg ulcers Amandeep Arora MD May 14, 2018 14:13
[2018-05-14] MEDS: Morphine Sulfate 2mg/ml Inj IVP PRN (14:57)
--- NOTE | 2018-05-14 15:06 | Internal Med Progress Note ---
Subjective Date of Service: May 14, 2018 Physician Name Jackson,Daniel Attending Physician Pedro Caban MD Current Medications Medications (Trade) Dose Ordered Sig/Erlin Route PRN Reason Start Time Stop Time Status Last Admin Dose Admin Acetaminophen (Tylenol) 650 mg Q4H PRN ORAL Mild Pain/Temp > 100.5 05/12/18 15:00 06/11/18 14:59 Albuterol/ Ipratropium (Albuterol/ Ipratropium) 3 ml Q4H PRN HHN Shortness of Breath 05/13/18 09:00 05/18/18 08:59 Apixaban (Eliquis) 2.5 mg Q12HR ORAL 05/12/18 21:00 06/11/18 20:59 05/14/18 08:22 Cefepime HCl 1 gm/ Dextrose 55 ml @ 110 mls/hr EVERY 12 HOURS IVPB 05/12/18 21:00 05/19/18 20:59 05/14/18 08:22 Digoxin (Lanoxin) 0.25 mg DAILY ORAL 05/13/18 09:00 06/12/18 08:59 05/14/18 08:22 Gabapentin (Neurontin) 100 mg THREE TIMES A DAY ORAL 05/12/18 18:00 06/11/18 17:59 05/14/18 12:08 Lorazepam (Ativan 2mg/ml 1ml) 1 mg Q4H PRN IV For Anxiety 05/12/18 15:15 05/19/18 15:14 Metoprolol Tartrate (Lopressor) 50 mg Q12HR ORAL 05/12/18 21:00 06/11/18 20:59 05/14/18 08:22 Morphine Sulfate (Morphine Sulfate) 2 mg Q4H PRN IVP For Pain 05/12/18 15:00 05/19/18 14:59 05/14/18 14:57 Potassium Chloride 10 meq/ Dextrose/Sodium Chloride 1,005 ml @ 75 mls/hr [id number] IV 05/13/18 15:00 06/12/18 14:59 05/14/18 05:12 Quetiapine Fumarate (SEROquel) 100 mg BEDTIME ORAL 05/12/18 21:00 06/11/18 20:59 05/13/18 21:33 Sodium Hypochlorite (Dakin's Quarter Strength) 1 applic DAILY TOPIC 05/13/18 14:19 06/12/18 14:18 05/14/18 08:21 Vancomycin HCl (Vanco rx to dose) 1 ea DAILY PRN MISC Per rx protocol 05/12/18 15:00 06/11/18 14:59 Vancomycin/Sodium Chloride 250 ml @ 166.667 mls/hr Q8H IVPB 05/14/18 13:00 05/19/18 12:59 05/14/18 12:09 Allergies: Coded Allergies: MILK (Verified Allergy, Unknown, 05/12/18) ROS Limited/Unobtainable: No Constitutional: Reports: no symptoms HEENT: Reports: no symptoms Cardiovascular: Reports: no symptoms Respiratory: Reports: no symptoms Gastrointestinal/Abdominal: Reports: no symptoms Genitourinary: Reports: no symptoms 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: Reports: no symptoms Subjective 68 YO A M admitted with altered mental status. Now sepsis. Cover for Int Med- Dr Caban. Objective Last Vital Signs Date Time Temp Pulse Resp B/P (MAP) Pulse Ox O2 Delivery O2 Flow Rate FiO2 05/14/18 12:00 68 05/14/18 12:00 97.3 22 138/83 (101) 95 05/14/18 09:00 Room Air 05/14/18 08:30 21 Laboratory Tests Test 05/14/18 04:30 White Blood Count 20.7 K/UL (4.8-10.8) H Red Blood Count 4.75 M/UL (4.70-6.10) Hemoglobin 14.0 G/DL (14.2-18.0) L Hematocrit 44.4 % (42.0-52.0) Mean Corpuscular Volume 94 FL (80-99) Mean Corpuscular Hemoglobin 29.4 PG (27.0-31.0) Mean Corpuscular Hemoglobin Concent 31.4 G/DL (32.0-36.0) L Red Cell Distribution Width 12.9 % (11.6-14.8) Platelet Count 227 K/UL (150-450) Mean Platelet Volume 5.1 FL (6.5-10.1) L Neutrophils (%) (Auto) % (45.0-75.0) Lymphocytes (%) (Auto) % (20.0-45.0) Monocytes (%) (Auto) % (1.0-10.0) Eosinophils (%) (Auto) % (0.0-3.0) Basophils (%) (Auto) % (0.0-2.0) Differential Total Cells Counted 100 Neutrophils % (Manual) 91 % (45-75) H Lymphocytes % (Manual) 4 % (20-45) L Monocytes % (Manual) 5 % (1-10) Eosinophils % (Manual) 0 % (0-3) Basophils % (Manual) 0 % (0-2) Band Neutrophils 0 % (0-8) Platelet Estimate Adequate Platelet Morphology Normal Red Blood Cell Morphology Normal Sodium Level 142 MMOL/L (136-145) Potassium Level 4.7 MMOL/L (3.5-5.1) Chloride Level 111 MMOL/L (98-107) H Carbon Dioxide Level 25 MMOL/L (21-32) Anion Gap 6 mmol/L (5-15) Blood Urea Nitrogen 31 mg/dL (7-18) H Creatinine 0.7 MG/DL (0.55-1.30) Estimat Glomerular Filtration Rate > 60 mL/min (>60) Glucose Level 140 MG/DL (74-106) H Calcium Level 9.5 MG/DL (8.5-10.1) Troponin I 0.032 ng/mL (0.000-0.056) Triglycerides Level 159 MG/DL (30-150) H Cholesterol Level 136 MG/DL (< 200) LDL Cholesterol 80 mg/dL (<100) HDL Cholesterol 25 MG/DL (40-60) L Cholesterol/HDL Ratio 5.4 (3.3-4.4) H Thyroid Stimulating Hormone (TSH) 1.465 uiU/mL (0.358-3.740) Vancomycin Level Trough 11.3 ug/mL (5.0-12.0) Microbiology Date/Time Source Procedure Growth Status 05/12/18 16:10 Blood Blood Culture - Preliminary NO GROWTH AFTER 24 HOURS Resulted 05/12/18 16:00 Blood Blood Culture - Preliminary NO GROWTH AFTER 24 HOURS Resulted 05/12/18 14:20 Nasal Nares MRSA Culture - Preliminary Resulted 05/12/18 17:30 Indwelling Cath Urine Culture - Preliminary Mixed Gram Positive Organism Resulted Intake and Output 05/13/18 05/14/18 19:00 07:00 Intake Total 75 ml 692 ml Output Total 500 ml Balance 75 ml 192 ml Intake IV Total 75 ml 692 ml Output Urine Total 500 ml # Voids 3 # Bowel Movements 1 Objective General Appearance: alert, thin, agitated EENT: PERRL/EOMI, normal ENT inspection Neck: non-tender, normal alignment, supple, normal inspection Cardiovascular: normal peripheral pulses, normal rate, no gallop/murmur, no JVD , irregularly irregular Respiratory/Chest: chest wall non-tender, lungs clear, normal breath sounds, no respiratory distress, no accessory muscle use Abdomen: normal bowel sounds, non tender, soft, no organomegaly, no mass Extremities: normal range of motion, non-tender Neurologic: kayak maker II-XII grossly normal, no motor/sensory deficits Skin: normal pigmentation, warm/dry, other - multiple decubitus ulcers bilat lower ext Assessment/Plan Problem List: (1) CHF (congestive heart failure) Assessment & Plan: See cardiology note (2) Atrial fibrillation with rapid ventricular response Assessment & Plan: continue metoprolol and digoxin per cardiology. Continue eliquis (3) Hypertension Assessment & Plan: continue metoprolol (4) CAD (coronary artery disease) (5) Bipolar disorder (6) Fever (7) Decubitus skin ulcer Assessment & Plan: Will require bilateral above the knee amputation-see surgery consult. (8) Sepsis Assessment & Plan: Mexed Gram pos cocci. Continue cefepime and vanco per ID Status: not improved Daniel Jackson MD May 14, 2018 15:06
[2018-05-14 16:00] VITALS: BP 121/62
--- NOTE | 2018-05-14 17:39 | General Surgery Progress Note ---
General Surgery-Progress Note Subjective Additional Comments leukocytosis improved. no n/v/f/c. awake and responsive but only asks for more food. US studies noted. DVT. Objective Last 24 Hour Vital Signs Date Time Temp Pulse Resp B/P (MAP) Pulse Ox O2 Delivery O2 Flow Rate FiO2 05/14/18 16:00 98.0 67 19 121/62 (81) 96 05/14/18 16:00 78 05/14/18 12:00 68 05/14/18 12:00 97.3 63 22 138/83 (101) 95 05/14/18 09:00 Room Air 05/14/18 08:30 91 20 Room Air 21 05/14/18 08:22 80 137/83 05/14/18 08:22 80 05/14/18 08:00 97.3 80 19 137/83 (101) 95 05/14/18 08:00 88 05/14/18 06:03 85 05/14/18 05:59 97.7 73 20 142/92 (109) 100 05/14/18 00:00 72 05/14/18 00:00 97.9 70 20 122/72 (89) 94 05/13/18 22:42 97.2 85 20 150/85 (106) 97 05/13/18 22:36 Room Air 05/13/18 22:34 109 05/13/18 22:32 97.2 85 20 150/85 (106) 97 05/13/18 21:34 85 150/85 05/13/18 20:54 98 20 Room Air 21 05/13/18 20:00 97.2 85 20 150/85 (106) 97 05/13/18 18:20 98.2 I&O Intake and Output 05/13/18 05/14/18 19:00 07:00 Intake Total 75 ml 692 ml Output Total 500 ml Balance 75 ml 192 ml Intake IV Total 75 ml 692 ml Output Urine Total 500 ml # Voids 3 # Bowel Movements 1 Dressing: saturated Wound: other Drains: other Cardiovascular: RSR Respiratory: decreased breath sounds Abdomen: soft, non-tender, present bowel sounds Extremities: other Laboratory Tests Test 05/14/18 04:30 White Blood Count 20.7 K/UL (4.8-10.8) H Red Blood Count 4.75 M/UL (4.70-6.10) Hemoglobin 14.0 G/DL (14.2-18.0) L Hematocrit 44.4 % (42.0-52.0) Mean Corpuscular Volume 94 FL (80-99) Mean Corpuscular Hemoglobin 29.4 PG (27.0-31.0) Mean Corpuscular Hemoglobin Concent 31.4 G/DL (32.0-36.0) L Red Cell Distribution Width 12.9 % (11.6-14.8) Platelet Count 227 K/UL (150-450) Mean Platelet Volume 5.1 FL (6.5-10.1) L Neutrophils (%) (Auto) % (45.0-75.0) Lymphocytes (%) (Auto) % (20.0-45.0) Monocytes (%) (Auto) % (1.0-10.0) Eosinophils (%) (Auto) % (0.0-3.0) Basophils (%) (Auto) % (0.0-2.0) Differential Total Cells Counted 100 Neutrophils % (Manual) 91 % (45-75) H Lymphocytes % (Manual) 4 % (20-45) L Monocytes % (Manual) 5 % (1-10) Eosinophils % (Manual) 0 % (0-3) Basophils % (Manual) 0 % (0-2) Band Neutrophils 0 % (0-8) Platelet Estimate Adequate Platelet Morphology Normal Red Blood Cell Morphology Normal Sodium Level 142 MMOL/L (136-145) Potassium Level 4.7 MMOL/L (3.5-5.1) Chloride Level 111 MMOL/L (98-107) H Carbon Dioxide Level 25 MMOL/L (21-32) Anion Gap 6 mmol/L (5-15) Blood Urea Nitrogen 31 mg/dL (7-18) H Creatinine 0.7 MG/DL (0.55-1.30) Estimat Glomerular Filtration Rate > 60 mL/min (>60) Glucose Level 140 MG/DL (74-106) H Calcium Level 9.5 MG/DL (8.5-10.1) Troponin I 0.032 ng/mL (0.000-0.056) Triglycerides Level 159 MG/DL (30-150) H Cholesterol Level 136 MG/DL (< 200) LDL Cholesterol 80 mg/dL (<100) HDL Cholesterol 25 MG/DL (40-60) L Cholesterol/HDL Ratio 5.4 (3.3-4.4) H Thyroid Stimulating Hormone (TSH) 1.465 uiU/mL (0.358-3.740) Vancomycin Level Trough 11.3 ug/mL (5.0-12.0) Plan Problems: (1) Sepsis Assessment & Plan: etiology of leukocytosis unknown will need further work up IV abx appreciate ID input trend labs (2) Decubitus skin ulcer Assessment & Plan: Patient well known to me. Has had chronic wounds on sacrum, buttock, and lower extremities. Prior had maggots in lower extremities treated with Dakins and wound care which are since resolved. Multiple pressure ulcers. Patient unable to participate in exam and care plan. Now presents with multiple ulcerations to both lower extremities. Wounds are irregular malodorous. Both lower ext. cool to touch. Toes necrotic with ulcerations 1st, 2nd and 3rd metatarsals ulcerated. Ulcers dorsal aspects of toes L foot.Web spaces of toes are dry . Full thickness pressure injury to sacrum with 60% slough,(+) epibole.Wound measures (L)7cm x (W)7.5cm x (D)2.5cm. Periwound dark .Wound malodorous. Right buttock and ischial tuberosity which are large and with eschar cap unstageable full thickness. both heels have DTI with blood blisters noted. Wounds have significantly deteriorated since last admission with new wounds noted on lower extremities and buttock. Areas of prior maggot infection are healing but still with wounds. Refer to wound care photos for details. Tx.Plan: Cleanse both lower ext wounds with NS . Skin protectant .Dakin's 0.25% moist gauze, Cover with ABD and wrap with soft chavez daily an dprn Apply Light dusting of [place] Starch or baby powder in web spaces of toes on feet Clean sacral decubitus and buttock ulcer with NS, apply skin protectant / honey gel, apply foam dressing daily and prn Air Fluidized mattress on bed (P200). Encourage and assist with repositioning at least every 2hours or as tolerated. Off-load heels with pillow. would appreciate Podiatry and Vascular consult as I dont anticipate lower extremity will be salvageable at this time. Recommend bilateral AKA. patient does not seem to have capacity. psych eval Duplex studies Goyo Osuna May 14, 2018 17:39
[2018-05-14 20:00] VITALS: BP 124/62
[2018-05-15] VITALS (7 sets, daily range): BP systolic 100–139; BP diastolic 67–84
[2018-05-15 04:57] LABS: HEMATOCRIT 36.6 % (42.0-52.0); HEMOGLOBIN 11.8 G/DL (14.2-18.0); MEAN CORPUSCULAR VOLUME 92 FL (80-99); PLATELET COUNT 236 K/UL (150-450); RED BLOOD COUNT 3.99 M/UL (4.70-6.10); RED CELL DISTRIBUTION WIDTH 12.9 % (11.6-14.8); WHITE BLOOD COUNT 21.3 K/UL (4.8-10.8)
[2018-05-15 05:08] LABS: ANION GAP 7 mmol/L (5-15); BLOOD UREA NITROGEN 23 mg/dL (7-18); CALCIUM 8.7 MG/DL (8.5-10.1); CARBON DIOXIDE 24 MMOL/L (21-32); CHLORIDE 113 MMOL/L (98-107); CREATININE 0.7 MG/DL (0.55-1.30); POTASSIUM 3.9 MMOL/L (3.5-5.1); SODIUM 143 MMOL/L (136-145)
[2018-05-15] MEDS: Vancomycin 750mg/NS 250ml IVPB SCH ×3 (05:41→20:33)
[2018-05-15] MEDS: Potassium Chloride 10 MEQ in D5 1/2NS 1,000 ML IV SCH ×2 (07:18→20:33)
[2018-05-15] MEDS: Morphine Sulfate 2mg/ml Inj IVP PRN (08:28)
[2018-05-15] MEDS: Metoprolol Tartrate 50mg tab ORAL SCH ×2 (08:28→20:30)
[2018-05-15] MEDS: Cefepime HCl 1 GM in D5W 55 ML IVPB SCH ×2 (08:37→20:32)
[2018-05-15] MEDS: Dakin's 0.125% Soln (Quarter Strength) 16oz TOPIC SCH (08:37)
--- NOTE | 2018-05-15 12:12 | General Surgery Progress Note ---
General Surgery-Progress Note Subjective Additional Comments no acute events. still confused but alert Objective Last 24 Hour Vital Signs Date Time Temp Pulse Resp B/P (MAP) Pulse Ox O2 Delivery O2 Flow Rate FiO2 05/15/18 09:41 98.0 05/15/18 09:00 Room Air 05/15/18 08:28 125 139/67 05/15/18 08:28 125 05/15/18 08:10 96.8 125 20 116/67 (83) 93 05/15/18 08:00 138 05/15/18 07:42 95 20 Room Air 21 05/15/18 04:00 98.0 66 20 139/67 (91) 98 05/15/18 04:00 90 05/15/18 00:00 97.9 85 22 125/84 (98) 95 05/15/18 00:00 88 05/14/18 21:40 93 124/62 05/14/18 21:34 92 18 Room Air 21 05/14/18 21:00 Room Air 05/14/18 20:00 97.5 93 22 124/62 (82) 99 05/14/18 20:00 125 05/14/18 16:00 98.0 67 19 121/62 (81) 96 05/14/18 16:00 78 I&O Intake and Output 05/14/18 05/15/18 19:00 07:00 Intake Total 1050 ml Output Total 700 ml 600 ml Balance -700 ml 450 ml IV Total 1050 ml Output Urine Total 700 ml 600 ml Dressing: other Wound: other Drains: other Cardiovascular: RSR Respiratory: clear Abdomen: soft, non-tender, present bowel sounds Extremities: other Laboratory Tests Test 05/15/18 04:00 White Blood Count 21.3 K/UL (4.8-10.8) H Red Blood Count 3.99 M/UL (4.70-6.10) L Hemoglobin 11.8 G/DL (14.2-18.0) L Hematocrit 36.6 % (42.0-52.0) L Mean Corpuscular Volume 92 FL (80-99) Mean Corpuscular Hemoglobin 29.6 PG (27.0-31.0) Mean Corpuscular Hemoglobin Concent 32.3 G/DL (32.0-36.0) Red Cell Distribution Width 12.9 % (11.6-14.8) Platelet Count 236 K/UL (150-450) Mean Platelet Volume 5.4 FL (6.5-10.1) L Neutrophils (%) (Auto) % (45.0-75.0) Lymphocytes (%) (Auto) % (20.0-45.0) Monocytes (%) (Auto) % (1.0-10.0) Eosinophils (%) (Auto) % (0.0-3.0) Basophils (%) (Auto) % (0.0-2.0) Differential Total Cells Counted 100 Neutrophils % (Manual) 91 % (45-75) H Lymphocytes % (Manual) 2 % (20-45) L Monocytes % (Manual) 6 % (1-10) Eosinophils % (Manual) 1 % (0-3) Basophils % (Manual) 0 % (0-2) Band Neutrophils 0 % (0-8) Platelet Estimate Adequate Platelet Morphology Normal Hypochromasia 1+ Sodium Level 143 MMOL/L (136-145) Potassium Level 3.9 MMOL/L (3.5-5.1) Chloride Level 113 MMOL/L (98-107) H Carbon Dioxide Level 24 MMOL/L (21-32) Anion Gap 7 mmol/L (5-15) Blood Urea Nitrogen 23 mg/dL (7-18) H Creatinine 0.7 MG/DL (0.55-1.30) Estimat Glomerular Filtration Rate > 60 mL/min (>60) Glucose Level 120 MG/DL (74-106) H Calcium Level 8.7 MG/DL (8.5-10.1) Vancomycin Level Trough 15.1 ug/mL (5.0-12.0) H Plan Problems: (1) Sepsis Assessment & Plan: etiology of leukocytosis unknown will need further work up IV abx appreciate ID input trend labs Discussed findings with Vascular and Podiatry Agree that lower extremities are not salvageable. Would recommend bilateral AKA Need to contact family and discuss. Patient without capacity to make decision. Need to work on consent Needs POA or designated Next of Kin as proposed surgery is very invasive (2) Decubitus skin ulcer Assessment & Plan: Patient well known to me. Has had chronic wounds on sacrum, buttock, and lower extremities. Prior had maggots in lower extremities treated with Dakins and wound care which are since resolved. Multiple pressure ulcers. Patient unable to participate in exam and care plan. Now presents with multiple ulcerations to both lower extremities. Wounds are irregular malodorous. Both lower ext. cool to touch. Toes necrotic with ulcerations 1st, 2nd and 3rd metatarsals ulcerated. Ulcers dorsal aspects of toes L foot.Web spaces of toes are dry . Full thickness pressure injury to sacrum with 60% slough,(+) epibole.Wound measures (L)7cm x (W)7.5cm x (D)2.5cm. Periwound dark .Wound malodorous. Right buttock and ischial tuberosity which are large and with eschar cap unstageable full thickness. both heels have DTI with blood blisters noted. Wounds have significantly deteriorated since last admission with new wounds noted on lower extremities and buttock. Areas of prior maggot infection are healing but still with wounds. Refer to wound care photos for details. Tx.Plan: Cleanse both lower ext wounds with NS . Skin protectant .Dakin's 0.25% moist gauze, Cover with ABD and wrap with soft chavez daily an dprn Apply Light dusting of [place] Starch or baby powder in web spaces of toes on feet Clean sacral decubitus and buttock ulcer with NS, apply skin protectant / honey gel, apply foam dressing daily and prn Air Fluidized mattress on bed (P200). Encourage and assist with repositioning at least every 2hours or as tolerated. Off-load heels with pillow. would appreciate Podiatry and Vascular consult as I dont anticipate lower extremity will be salvageable at this time. Recommend bilateral AKA. patient does not seem to have capacity. psych eval Duplex studies Goyo Osuna May 15, 2018 12:12
[2018-05-15] MEDS: Eliquis 2.5mg tablet ORAL SCH ×2 (12:17→20:30)
--- NOTE | 2018-05-15 12:39 | Pulmonology Progress Note ---
Assessment/Plan Problems: (1) Atrial fibrillation (2) Sepsis (3) Decubitus skin ulcer (4) Bipolar disorder (5) CAD (coronary artery disease) (6) HTN (hypertension) (7) CVA (cerebral vascular accident) Assessment/Plan iv abx wound care probably needs to have both legs amputated f/u cultures monitor BP watch heart rate in out of sinus. Subjective ROS Limited/Unobtainable: Yes Constitutional: Reports: no symptoms HEENT: Repors: no symptoms Allergies: Coded Allergies: MILK (Verified Allergy, Unknown, 02/02/18) Objective Last 24 Hour Vital Signs Date Time Temp Pulse Resp B/P (MAP) Pulse Ox O2 Delivery O2 Flow Rate FiO2 05/15/18 09:41 98.0 05/15/18 09:00 Room Air 05/15/18 08:28 125 139/67 05/15/18 08:28 125 05/15/18 08:10 96.8 125 20 116/67 (83) 93 05/15/18 08:00 138 05/15/18 07:42 95 20 Room Air 21 05/15/18 04:00 98.0 66 20 139/67 (91) 98 05/15/18 04:00 90 05/15/18 00:00 97.9 85 22 125/84 (98) 95 05/15/18 00:00 88 05/14/18 21:40 93 124/62 05/14/18 21:34 92 18 Room Air 21 05/14/18 21:00 Room Air 05/14/18 20:00 97.5 93 22 124/62 (82) 99 05/14/18 20:00 125 05/14/18 16:00 98.0 67 19 121/62 (81) 96 05/14/18 16:00 78 Intake and Output 05/14/18 05/15/18 19:00 07:00 Intake Total 1050 ml Output Total 700 ml 600 ml Balance -700 ml 450 ml IV Total 1050 ml Output Urine Total 700 ml 600 ml General Appearance: WD/WN HEENT: normocephalic, atraumatic Respiratory/Chest: chest wall non-tender, lungs clear Cardiovascular: normal peripheral pulses, normal rate Abdomen: normal bowel sounds, soft, non tender, no scars Extremities: no cyanosis Skin: no rash Lymphatic: no neck adenopathy Microbiology Date/Time Source Procedure Growth Status 05/13/18 07:00 Blood Blood Culture - Preliminary NO GROWTH AFTER 24 HOURS Resulted 05/13/18 06:50 Blood Blood Culture - Preliminary NO GROWTH AFTER 24 HOURS Resulted 05/12/18 16:10 Blood Blood Culture - Preliminary NO GROWTH AFTER 48 HOURS Resulted 05/12/18 16:00 Blood Blood Culture - Preliminary NO GROWTH AFTER 48 HOURS Resulted 05/12/18 14:20 Nasal Nares MRSA Culture - Final Staphylococcus Aureus - Mrsa Complete 05/12/18 17:30 Indwelling Cath Urine Culture - Final Mixed Gram Positive Organism Complete 05/12/18 14:20 Rectum VRE Culture - Final Enterococcus Faecalis - Vre Complete Laboratory Tests 05/15/18 04:00: White Blood Count 21.3H, Red Blood Count 3.99L, Hemoglobin 11.8L, Hematocrit 36.6L, Mean Corpuscular Volume 92, Mean Corpuscular Hemoglobin 29.6, Mean Corpuscular Hemoglobin Concent 32.3, Red Cell Distribution Width 12.9, Platelet Count 236, Mean Platelet Volume 5.4L, Neutrophils (%) (Auto) , Lymphocytes (%) ( Auto) , Monocytes (%) (Auto) , Eosinophils (%) (Auto) , Basophils (%) (Auto) , Differential Total Cells Counted 100, Neutrophils % (Manual) 91H, Lymphocytes % (Manual) 2L, Monocytes % (Manual) 6, Eosinophils % (Manual) 1, Basophils % ( Manual) 0, Band Neutrophils 0, Platelet Estimate Adequate, Platelet Morphology Normal, Hypochromasia 1+, Sodium Level 143, Potassium Level 3.9, Chloride Level 113H, Carbon Dioxide Level 24, Anion Gap 7, Blood Urea Nitrogen 23H, Creatinine 0.7, Estimat Glomerular Filtration Rate > 60, Glucose Level 120H, Calcium Level 8.7, Vancomycin Level Trough 15.1H Current Medications Medications (Trade) Dose Ordered Sig/Erlin Route PRN Reason Start Time Stop Time Status Last Admin Dose Admin Acetaminophen (Tylenol) 650 mg Q4H PRN ORAL Mild Pain/Temp > 100.5 05/12/18 15:00 06/11/18 14:59 Albuterol/ Ipratropium (Albuterol/ Ipratropium) 3 ml Q4H PRN HHN Shortness of Breath 05/13/18 09:00 05/18/18 08:59 Apixaban (Eliquis) 2.5 mg Q12HR ORAL 05/12/18 21:00 06/11/18 20:59 05/15/18 12:17 Cefepime HCl 1 gm/ Dextrose 55 ml @ 110 mls/hr EVERY 12 HOURS IVPB 05/12/18 21:00 05/19/18 20:59 05/15/18 08:37 Digoxin (Lanoxin) 0.25 mg DAILY ORAL 05/13/18 09:00 06/12/18 08:59 05/15/18 08:28 Gabapentin (Neurontin) 100 mg THREE TIMES A DAY ORAL 05/12/18 18:00 06/11/18 17:59 05/15/18 12:18 Lorazepam (Ativan 2mg/ml 1ml) 1 mg Q4H PRN IV For Anxiety 05/12/18 15:15 05/19/18 15:14 05/15/18 10:02 Metoprolol Tartrate (Lopressor) 50 mg Q12HR ORAL 05/12/18 21:00 06/11/18 20:59 05/15/18 08:28 Morphine Sulfate (Morphine Sulfate) 2 mg Q4H PRN IVP For Pain 05/12/18 15:00 05/19/18 14:59 05/15/18 08:28 Potassium Chloride 10 meq/ Dextrose/Sodium Chloride 1,005 ml @ 75 mls/hr [id number] IV 05/13/18 15:00 06/12/18 14:59 05/15/18 07:18 Quetiapine Fumarate (SEROquel) 100 mg BEDTIME ORAL 05/12/18 21:00 06/11/18 20:59 05/14/18 21:39 Sodium Hypochlorite (Dakin's Quarter Strength) 1 applic DAILY TOPIC 05/13/18 14:19 06/12/18 14:18 05/15/18 08:37 Vancomycin HCl (Vanco rx to dose) 1 ea DAILY PRN MISC Per rx protocol 05/12/18 15:00 06/11/18 14:59 Vancomycin/Sodium Chloride 250 ml @ 166.667 mls/hr Q8H IVPB 05/14/18 13:00 05/19/18 12:59 05/15/18 05:41 Minerva Montesinos MD May 15, 2018 12:39
--- NOTE | 2018-05-15 14:03 | Cardiac Electrophysiology PN ---
Assessment/Plan Assessment/Plan 1. Paroxysmal Atrial fibrillation with rapid ventricular response. In SR on digoxin 0.25 mg daily, metoprolol 50 mg bid and Eliquis 2.5 mg b.i.d. Dig level 1.9. Decrease Dig to 0.125 daily 2. Borderline hypotension. Resolved, off midodrine. 3. Fever and sepsis, on antibiotic with vancomycin and cefepime. 4. History of dementia and severe psychosis, on Seroquel. 5. Severe bilateral leg ulcers and sacral decubitus. FU Dr Osuna Has had chronic wounds on sacrum, buttock, and lower extremities. Prior had maggots in lower extremities treated with Dakins Need to hold Eliquis if surgery is planned DW RN Subjective Subjective In SR with PACs. No events Objective Last 24 Hour Vital Signs Date Time Temp Pulse Resp B/P (MAP) Pulse Ox O2 Delivery O2 Flow Rate FiO2 05/15/18 12:10 97.7 72 20 106/68 (81) 96 05/15/18 09:41 98.0 05/15/18 09:00 Room Air 05/15/18 08:28 125 139/67 05/15/18 08:28 125 05/15/18 08:10 96.8 125 20 116/67 (83) 93 05/15/18 08:00 138 05/15/18 07:42 95 20 Room Air 21 05/15/18 04:00 98.0 66 20 139/67 (91) 98 05/15/18 04:00 90 05/15/18 00:00 97.9 85 22 125/84 (98) 95 05/15/18 00:00 88 05/14/18 21:40 93 124/62 05/14/18 21:34 92 18 Room Air 21 05/14/18 21:00 Room Air 05/14/18 20:00 97.5 93 22 124/62 (82) 99 05/14/18 20:00 125 05/14/18 16:00 98.0 67 19 121/62 (81) 96 05/14/18 16:00 78 Intake and Output 05/14/18 05/15/18 19:00 07:00 Intake Total 1050 ml Output Total 700 ml 600 ml Balance -700 ml 450 ml IV Total 1050 ml Output Urine Total 700 ml 600 ml Laboratory Tests Test 05/15/18 04:00 White Blood Count 21.3 K/UL (4.8-10.8) H Red Blood Count 3.99 M/UL (4.70-6.10) L Hemoglobin 11.8 G/DL (14.2-18.0) L Hematocrit 36.6 % (42.0-52.0) L Mean Corpuscular Volume 92 FL (80-99) Mean Corpuscular Hemoglobin 29.6 PG (27.0-31.0) Mean Corpuscular Hemoglobin Concent 32.3 G/DL (32.0-36.0) Red Cell Distribution Width 12.9 % (11.6-14.8) Platelet Count 236 K/UL (150-450) Mean Platelet Volume 5.4 FL (6.5-10.1) L Neutrophils (%) (Auto) % (45.0-75.0) Lymphocytes (%) (Auto) % (20.0-45.0) Monocytes (%) (Auto) % (1.0-10.0) Eosinophils (%) (Auto) % (0.0-3.0) Basophils (%) (Auto) % (0.0-2.0) Differential Total Cells Counted 100 Neutrophils % (Manual) 91 % (45-75) H Lymphocytes % (Manual) 2 % (20-45) L Monocytes % (Manual) 6 % (1-10) Eosinophils % (Manual) 1 % (0-3) Basophils % (Manual) 0 % (0-2) Band Neutrophils 0 % (0-8) Platelet Estimate Adequate Platelet Morphology Normal Hypochromasia 1+ Sodium Level 143 MMOL/L (136-145) Potassium Level 3.9 MMOL/L (3.5-5.1) Chloride Level 113 MMOL/L (98-107) H Carbon Dioxide Level 24 MMOL/L (21-32) Anion Gap 7 mmol/L (5-15) Blood Urea Nitrogen 23 mg/dL (7-18) H Creatinine 0.7 MG/DL (0.55-1.30) Estimat Glomerular Filtration Rate > 60 mL/min (>60) Glucose Level 120 MG/DL (74-106) H Calcium Level 8.7 MG/DL (8.5-10.1) Vancomycin Level Trough 15.1 ug/mL (5.0-12.0) H Microbiology Date/Time Source Procedure Growth Status 05/13/18 07:00 Blood Blood Culture - Preliminary NO GROWTH AFTER 24 HOURS Resulted 05/13/18 06:50 Blood Blood Culture - Preliminary NO GROWTH AFTER 24 HOURS Resulted 05/12/18 16:10 Blood Blood Culture - Preliminary NO GROWTH AFTER 48 HOURS Resulted 05/12/18 16:00 Blood Blood Culture - Preliminary NO GROWTH AFTER 48 HOURS Resulted 05/12/18 14:20 Nasal Nares MRSA Culture - Final Staphylococcus Aureus - Mrsa Complete 05/12/18 17:30 Indwelling Cath Urine Culture - Final Mixed Gram Positive Organism Complete 05/12/18 14:20 Rectum VRE Culture - Final Enterococcus Faecalis - Vre Complete Objective HEAD AND NECK: Mild JVD. LUNGS: Coarse rhonchi. CARDIOVASCULAR: Irregular S1 and S2 with no gallop or murmur. ABDOMEN: Soft. EXTREMITIES: Bilateral leg ulcers Amandeep Arora MD May 15, 2018 14:03
--- NOTE | 2018-05-15 17:16 | Infectious Diseases Prog Note ---
Assessment/Plan Assessment/Plan 68 yo male who was transferred from [facility] where he initially presented for AMS from [facility]. Sepsis 2/2 to bacteremia Likely source is skin ulcer Blood Cx 05/12/18 at [facility] -Bcx 05/12 and 24 (here) NTD 2d echo: no vegetations 05/12 CXR: Asymmetric ill-defined confluent groundglass opacity within the left mid/inferior lung, of uncertain etiology. Febrile to 101 ([employer])- here non so far Leukocytosis to 27; improving, now 21 AMS Likely secondary to sepsis B/l LE nectrotic ulcer and toes- likely non-salvageable per surgery No purulent drainage Cerebrovascular accident. Hypertension. Sacral decubitus ulcers. Bipolar disorder. Coronary artery disease. Plan - Continue Cefepime #4 and Vancomycin #4 pending Cx - f/u Blood Cx - Wound care - Monitor CBC and Temps -sp cx, u/a w/ reflex -CBC, CMP, CXR am -Obtain records from [facility] for BCx results Thank you for this consult. We will continue to follow the patient during this hospitalization. Subjective Allergies: Coded Allergies: MILK (Verified Allergy, Unknown, 02/02/18) Subjective afebrile wbc improved Bcx NTD Objective Vital Signs Last 24 Hour Vital Signs Date Time Temp Pulse Resp B/P (MAP) Pulse Ox O2 Delivery O2 Flow Rate FiO2 05/15/18 16:24 97.9 106 20 134/74 (94) 93 05/15/18 12:10 97.7 72 20 106/68 (81) 96 05/15/18 12:00 83 05/15/18 09:41 98.0 05/15/18 09:00 Room Air 05/15/18 08:28 125 139/67 05/15/18 08:28 125 05/15/18 08:10 96.8 125 20 116/67 (83) 93 05/15/18 08:00 138 05/15/18 07:42 95 20 Room Air 21 05/15/18 04:00 98.0 66 20 139/67 (91) 98 05/15/18 04:00 90 05/15/18 00:00 97.9 85 22 125/84 (98) 95 05/15/18 00:00 88 05/14/18 21:40 93 124/62 05/14/18 21:34 92 18 Room Air 21 05/14/18 21:00 Room Air 05/14/18 20:00 97.5 93 22 124/62 (82) 99 05/14/18 20:00 125 Height (Feet): 6 Height (Inches): 5.00 Weight (Pounds): 170 Objective Gen: NAD. Mumbling HEENT: NCAT, MMM, EOMI, No Oral lesion, no scleral icterus NECK: full range of motion, supple, no meningismus, No LAD, No JVD LUNGS: CTAB, No W/C, No Accessory muscle use CARDS: RRR, S1, S2, No M/R/G ABD: Soft, NT, ND, No R/G, + BS, No HSM, No Masses : Deferred Ext: C/C/E, Pulses 2+ B/L (DP, Rad) NEURO: A/O x 0, Strength and Sensation Grossly intact PSYCH: mood/affect normal SKIN: Left foot wound. No purulent drainage, Feet now bandaged Microbiology Date/Time Source Procedure Growth Status 05/13/18 07:00 Blood Blood Culture - Preliminary NO GROWTH AFTER 24 HOURS Resulted 05/13/18 06:50 Blood Blood Culture - Preliminary NO GROWTH AFTER 24 HOURS Resulted 05/12/18 17:30 Indwelling Cath Urine Culture - Final Mixed Gram Positive Organism Complete Laboratory Tests Test 05/15/18 04:00 White Blood Count 21.3 K/UL (4.8-10.8) H Red Blood Count 3.99 M/UL (4.70-6.10) L Hemoglobin 11.8 G/DL (14.2-18.0) L Hematocrit 36.6 % (42.0-52.0) L Mean Corpuscular Volume 92 FL (80-99) Mean Corpuscular Hemoglobin 29.6 PG (27.0-31.0) Mean Corpuscular Hemoglobin Concent 32.3 G/DL (32.0-36.0) Red Cell Distribution Width 12.9 % (11.6-14.8) Platelet Count 236 K/UL (150-450) Mean Platelet Volume 5.4 FL (6.5-10.1) L Neutrophils (%) (Auto) % (45.0-75.0) Lymphocytes (%) (Auto) % (20.0-45.0) Monocytes (%) (Auto) % (1.0-10.0) Eosinophils (%) (Auto) % (0.0-3.0) Basophils (%) (Auto) % (0.0-2.0) Differential Total Cells Counted 100 Neutrophils % (Manual) 91 % (45-75) H Lymphocytes % (Manual) 2 % (20-45) L Monocytes % (Manual) 6 % (1-10) Eosinophils % (Manual) 1 % (0-3) Basophils % (Manual) 0 % (0-2) Band Neutrophils 0 % (0-8) Platelet Estimate Adequate Platelet Morphology Normal Hypochromasia 1+ Sodium Level 143 MMOL/L (136-145) Potassium Level 3.9 MMOL/L (3.5-5.1) Chloride Level 113 MMOL/L (98-107) H Carbon Dioxide Level 24 MMOL/L (21-32) Anion Gap 7 mmol/L (5-15) Blood Urea Nitrogen 23 mg/dL (7-18) H Creatinine 0.7 MG/DL (0.55-1.30) Estimat Glomerular Filtration Rate > 60 mL/min (>60) Glucose Level 120 MG/DL (74-106) H Calcium Level 8.7 MG/DL (8.5-10.1) Vancomycin Level Trough 15.1 ug/mL (5.0-12.0) H Current Medications Medications (Trade) Dose Ordered Sig/Erlin Route PRN Reason Start Time Stop Time Status Last Admin Dose Admin Acetaminophen (Tylenol) 650 mg Q4H PRN ORAL Mild Pain/Temp > 100.5 05/12/18 15:00 06/11/18 14:59 Albuterol/ Ipratropium (Albuterol/ Ipratropium) 3 ml Q4H PRN HHN Shortness of Breath 05/13/18 09:00 05/18/18 08:59 Apixaban (Eliquis) 2.5 mg Q12HR ORAL 05/12/18 21:00 06/11/18 20:59 05/15/18 12:17 Cefepime HCl 1 gm/ Dextrose 55 ml @ 110 mls/hr EVERY 12 HOURS IVPB 05/12/18 21:00 05/19/18 20:59 05/15/18 08:37 Digoxin (Lanoxin) 0.125 mg DAILY ORAL 05/16/18 09:00 12/24/18 08:59 Gabapentin (Neurontin) 100 mg THREE TIMES A DAY ORAL 05/12/18 18:00 06/11/18 17:59 05/15/18 12:18 Lorazepam (Ativan 2mg/ml 1ml) 1 mg Q4H PRN IV For Anxiety 05/12/18 15:15 05/19/18 15:14 05/15/18 10:02 Metoprolol Tartrate (Lopressor) 50 mg Q12HR ORAL 05/12/18 21:00 06/11/18 20:59 05/15/18 08:28 Morphine Sulfate (Morphine Sulfate) 2 mg Q4H PRN IVP For Pain 05/12/18 15:00 05/19/18 14:59 05/15/18 08:28 Potassium Chloride 10 meq/ Dextrose/Sodium Chloride 1,005 ml @ 75 mls/hr [id number] IV 05/13/18 15:00 06/12/18 14:59 05/15/18 07:18 Quetiapine Fumarate (SEROquel) 100 mg BEDTIME ORAL 05/12/18 21:00 06/11/18 20:59 05/14/18 21:39 Sodium Hypochlorite (Dakin's Quarter Strength) 1 applic DAILY TOPIC 05/13/18 14:19 06/12/18 14:18 05/15/18 08:37 Vancomycin HCl (Vanco rx to dose) 1 ea DAILY PRN MISC Per rx protocol 05/12/18 15:00 06/11/18 14:59 Vancomycin/Sodium Chloride 250 ml @ 166.667 mls/hr Q8H IVPB 05/14/18 13:00 05/19/18 12:59 05/15/18 14:02 Alma Elkins M.D. May 15, 2018 17:16
--- NOTE | 2018-05-15 18:21 | Internal Med Progress Note ---
Subjective Date of Service: May 15, 2018 Physician Name Jackson,Daniel Attending Physician Pedro Caban MD Current Medications Medications (Trade) Dose Ordered Sig/Erlin Route PRN Reason Start Time Stop Time Status Last Admin Dose Admin Acetaminophen (Tylenol) 650 mg Q4H PRN ORAL Mild Pain/Temp > 100.5 05/12/18 15:00 06/11/18 14:59 Albuterol/ Ipratropium (Albuterol/ Ipratropium) 3 ml Q4H PRN HHN Shortness of Breath 05/13/18 09:00 05/18/18 08:59 Apixaban (Eliquis) 2.5 mg Q12HR ORAL 05/12/18 21:00 06/11/18 20:59 05/15/18 12:17 Cefepime HCl 1 gm/ Dextrose 55 ml @ 110 mls/hr EVERY 12 HOURS IVPB 05/12/18 21:00 05/19/18 20:59 05/15/18 08:37 Digoxin (Lanoxin) 0.125 mg DAILY ORAL 05/16/18 09:00 06/12/18 08:59 Gabapentin (Neurontin) 100 mg THREE TIMES A DAY ORAL 05/12/18 18:00 06/11/18 17:59 05/15/18 17:35 Lorazepam (Ativan 2mg/ml 1ml) 1 mg Q4H PRN IV For Anxiety 05/12/18 15:15 05/19/18 15:14 05/15/18 10:02 Metoprolol Tartrate (Lopressor) 50 mg Q12HR ORAL 05/12/18 21:00 06/11/18 20:59 05/15/18 08:28 Morphine Sulfate (Morphine Sulfate) 2 mg Q4H PRN IVP For Pain 05/12/18 15:00 05/19/18 14:59 05/15/18 08:28 Potassium Chloride 10 meq/ Dextrose/Sodium Chloride 1,005 ml @ 75 mls/hr [id number] IV 05/13/18 15:00 06/12/18 14:59 05/15/18 07:18 Quetiapine Fumarate (SEROquel) 100 mg BEDTIME ORAL 05/12/18 21:00 06/11/18 20:59 05/14/18 21:39 Sodium Hypochlorite (Dakin's Quarter Strength) 1 applic DAILY TOPIC 05/13/18 14:19 06/12/18 14:18 05/15/18 08:37 Vancomycin HCl (Vanco rx to dose) 1 ea DAILY PRN MISC Per rx protocol 05/12/18 15:00 06/11/18 14:59 Vancomycin/Sodium Chloride 250 ml @ 166.667 mls/hr Q8H IVPB 05/14/18 13:00 05/19/18 12:59 05/15/18 14:02 Allergies: Coded Allergies: MILK (Verified Allergy, Unknown, 02/02/18) ROS Limited/Unobtainable: No Constitutional: Reports: no symptoms HEENT: Reports: no symptoms Cardiovascular: Reports: no symptoms Respiratory: Reports: no symptoms Gastrointestinal/Abdominal: Reports: no symptoms Genitourinary: Reports: no symptoms 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: Reports: no symptoms Subjective 68 YO A M admitted with altered mental status. Now sepsis. Cover for Int Med- Dr Caban. Objective Last Vital Signs Date Time Temp Pulse Resp B/P (MAP) Pulse Ox O2 Delivery O2 Flow Rate FiO2 05/15/18 16:24 97.9 106 20 134/74 (94) 93 05/15/18 09:00 Room Air 05/15/18 07:42 21 Laboratory Tests Test 05/15/18 04:00 White Blood Count 21.3 K/UL (4.8-10.8) H Red Blood Count 3.99 M/UL (4.70-6.10) L Hemoglobin 11.8 G/DL (14.2-18.0) L Hematocrit 36.6 % (42.0-52.0) L Mean Corpuscular Volume 92 FL (80-99) Mean Corpuscular Hemoglobin 29.6 PG (27.0-31.0) Mean Corpuscular Hemoglobin Concent 32.3 G/DL (32.0-36.0) Red Cell Distribution Width 12.9 % (11.6-14.8) Platelet Count 236 K/UL (150-450) Mean Platelet Volume 5.4 FL (6.5-10.1) L Neutrophils (%) (Auto) % (45.0-75.0) Lymphocytes (%) (Auto) % (20.0-45.0) Monocytes (%) (Auto) % (1.0-10.0) Eosinophils (%) (Auto) % (0.0-3.0) Basophils (%) (Auto) % (0.0-2.0) Differential Total Cells Counted 100 Neutrophils % (Manual) 91 % (45-75) H Lymphocytes % (Manual) 2 % (20-45) L Monocytes % (Manual) 6 % (1-10) Eosinophils % (Manual) 1 % (0-3) Basophils % (Manual) 0 % (0-2) Band Neutrophils 0 % (0-8) Platelet Estimate Adequate Platelet Morphology Normal Hypochromasia 1+ Sodium Level 143 MMOL/L (136-145) Potassium Level 3.9 MMOL/L (3.5-5.1) Chloride Level 113 MMOL/L (98-107) H Carbon Dioxide Level 24 MMOL/L (21-32) Anion Gap 7 mmol/L (5-15) Blood Urea Nitrogen 23 mg/dL (7-18) H Creatinine 0.7 MG/DL (0.55-1.30) Estimat Glomerular Filtration Rate > 60 mL/min (>60) Glucose Level 120 MG/DL (74-106) H Calcium Level 8.7 MG/DL (8.5-10.1) Vancomycin Level Trough 15.1 ug/mL (5.0-12.0) H Microbiology Date/Time Source Procedure Growth Status 05/13/18 07:00 Blood Blood Culture - Preliminary NO GROWTH AFTER 24 HOURS Resulted 05/13/18 06:50 Blood Blood Culture - Preliminary NO GROWTH AFTER 24 HOURS Resulted Intake and Output 05/14/18 05/15/18 19:00 07:00 Intake Total 1050 ml Output Total 700 ml 600 ml Balance -700 ml 450 ml IV Total 1050 ml Output Urine Total 700 ml 600 ml Objective General Appearance: alert, thin, agitated EENT: PERRL/EOMI, normal ENT inspection Neck: non-tender, normal alignment, supple, normal inspection Cardiovascular: normal peripheral pulses, normal rate, no gallop/murmur, no JVD , irregularly irregular Respiratory/Chest: chest wall non-tender, lungs clear, normal breath sounds, no respiratory distress, no accessory muscle use Abdomen: normal bowel sounds, non tender, soft, no organomegaly, no mass Extremities: normal range of motion, non-tender Neurologic: clinical neuropsychologist II-XII grossly normal, no motor/sensory deficits Skin: normal pigmentation, warm/dry, other - multiple decubitus ulcers bilat lower ext Assessment/Plan Problem List: (1) CHF (congestive heart failure) Assessment & Plan: See cardiology note (2) Atrial fibrillation with rapid ventricular response Assessment & Plan: continue metoprolol and digoxin per cardiology. Continue eliquis (3) Hypertension Assessment & Plan: continue metoprolol (4) CAD (coronary artery disease) (5) Bipolar disorder (6) Fever (7) Decubitus skin ulcer Assessment & Plan: Will require bilateral above the knee amputation-see surgery consult. (8) Sepsis Assessment & Plan: Continue antibiotic per ID (9) UTI (urinary tract infection) Assessment & Plan: Mixed culture-continue vanco and cefepime per ID (10) Leukocytosis Status: not improved Daniel Jackson MD May 15, 2018 18:21
[2018-05-15 18:47] LABS: HEMATOCRIT 38.8 % (42.0-52.0); HEMOGLOBIN 12.3 G/DL (14.2-18.0); MEAN CORPUSCULAR VOLUME 91 FL (80-99); PLATELET COUNT 257 K/UL (150-450); RED BLOOD COUNT 4.26 M/UL (4.70-6.10); RED CELL DISTRIBUTION WIDTH 12.8 % (11.6-14.8); WHITE BLOOD COUNT 21.6 K/UL (4.8-10.8)
[2018-05-15 18:54] LABS: ALANINE AMINOTRANSFERASE 30 U/L (12-78); ALBUMIN 1.3 G/DL (3.4-5.0); ALBUMIN/GLOBULIN RATIO 0.2 (1.0-2.7); ALKALINE PHOSPHATASE 126 U/L (46-116); ANION GAP 9 mmol/L (5-15); ASPARTATE AMINO TRANSFERASE 48 U/L (15-37); BILIRUBIN,TOTAL 0.4 MG/DL (0.2-1.0); BLOOD UREA NITROGEN 19 mg/dL (7-18); CALCIUM 8.6 MG/DL (8.5-10.1); CARBON DIOXIDE 22 MMOL/L (21-32); CHLORIDE 111 MMOL/L (98-107); CREATININE 0.7 MG/DL (0.55-1.30); POTASSIUM 3.8 MMOL/L (3.5-5.1); SODIUM 142 MMOL/L (136-145)
--- NOTE | 2018-05-15 19:45 | Consultation ---
DATE OF CONSULTATION: 05/13/2018 PODIATRY CONSULTATION CONSULTING PHYSICIAN: Garland Duarte DPM. REFERRING PHYSICIAN: Dr. Osuna/Dr. Caban. REASON FOR CONSULTATION: Chronic lower extremity ulcerations in the presence of vascular disease and atrial fibrillation. HISTORY OF PRESENT ILLNESS: The patient is an unfortunate 68-year-old male who was admitted to [facility] on May 12, 2018, for altered mental status. The patient is nonverbal and history was obtained through chart review. PAST MEDICAL HISTORY: Significant for cerebrovascular accident, hypertension, bilateral lower extremity ulcers, bipolar disorder, coronary artery disease. ALLERGIES: To milk. MEDICATIONS: Per MAR and include Eliquis, cefepime, gabapentin, and vancomycin. FAMILY HISTORY: Noncontributory. SOCIAL HISTORY: The patient resides in a senior care facility. REVIEW OF SYSTEMS: Unobtainable. PHYSICAL EXAMINATION: VITAL SIGNS: Temperature 97.2, pulse is 85, respirations 20, blood pressure is 150/85, saturating 97% on room air. LOWER EXTREMITIES: Vascular, nonpalpable pedal pulses noted bilaterally. Feet are warm. There is chronic edema noted bilaterally. DERMATOLOGICAL: Full-thickness ulcerations noted on the right lower extremity on the right leg and the foot. This is deep to muscle, tendon is exposed. No signs of acute infection are noted. There are less-significant ulcerations noted on the left lower extremity. MUSCULOSKELETAL: The patient has rigid knee contractures bilaterally. The patient is bedbound. DIAGNOSTIC DATA: Arterial ultrasound of bilateral lower extremities shows right popliteal artery and right calf arteries not visualized due to the patient's pain. Left calf artery is not visualized due to the patient's pain, otherwise unremarkable bilateral lower extremity artery. LABORATORY DATA: White blood cell count is 25.2, hemoglobin 14.3, hematocrit 42.8, and platelet count is 226,000. Potassium 5.2, chloride 109, BUN is 39, creatinine is 0.9, glucose is 108, albumin is 1.5. ASSESSMENT: Bilateral lower extremity ulcers, severe peripheral arterial disease, bilateral rigid knee contractures, bedbound status. PLAN: Case was discussed with Dr. Osuna. Recommended and agreed with Vascular Surgery consultation of bilateral lower extremity amputations. We will defer to General Surgery for further surgical care. We will sign off. Thank you for the courtesy of this consultation. Garland Duarte D.P.M. DR: Foster JOB#: [id number] CC:
--- NOTE | 2018-05-15 23:10 | General Progress Note ---
Assessment/Plan Problem List: (1) Bipolar disorder ICD Codes: F31.9 - Bipolar disorder, unspecified SNOMED: [id number] Subjective Date patient seen: May 15, 2018 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: Reports: anxiety, depressed, emotional problems Allergies: Coded Allergies: MILK (Verified Allergy, Unknown, 02/02/18) Objective Last 24 Hour Vital Signs Date Time Temp Pulse Resp B/P (MAP) Pulse Ox O2 Delivery O2 Flow Rate FiO2 05/15/18 21:46 136 05/15/18 20:30 136 110/67 05/15/18 20:00 98.5 136 18 100/67 (78) 95 05/15/18 16:24 97.9 106 20 134/74 (94) 93 05/15/18 15:52 123 05/15/18 12:10 97.7 72 20 106/68 (81) 96 05/15/18 12:00 83 05/15/18 09:41 98.0 05/15/18 09:00 Room Air 05/15/18 08:28 125 139/67 05/15/18 08:28 125 05/15/18 08:10 96.8 125 20 116/67 (83) 93 05/15/18 08:00 138 05/15/18 07:42 95 20 Room Air 21 05/15/18 04:00 98.0 66 20 139/67 (91) 98 05/15/18 04:00 90 05/15/18 00:00 97.9 85 22 125/84 (98) 95 05/15/18 00:00 88 Intake and Output 05/14/18 05/15/18 19:00 07:00 Intake Total 1050 ml Output Total 700 ml 600 ml Balance -700 ml 450 ml IV Total 1050 ml Output Urine Total 700 ml 600 ml Laboratory Tests 05/15/18 04:00: White Blood Count 21.3H, Red Blood Count 3.99L, Hemoglobin 11.8L, Hematocrit 36.6L, Mean Corpuscular Volume 92, Mean Corpuscular Hemoglobin 29.6, Mean Corpuscular Hemoglobin Concent 32.3, Red Cell Distribution Width 12.9, Platelet Count 236, Mean Platelet Volume 5.4L, Neutrophils (%) (Auto) , Lymphocytes (%) ( Auto) , Monocytes (%) (Auto) , Eosinophils (%) (Auto) , Basophils (%) (Auto) , Differential Total Cells Counted 100, Neutrophils % (Manual) 91H, Lymphocytes % (Manual) 2L, Monocytes % (Manual) 6, Eosinophils % (Manual) 1, Basophils % ( Manual) 0, Band Neutrophils 0, Platelet Estimate Adequate, Platelet Morphology Normal, Hypochromasia 1+, Sodium Level 143, Potassium Level 3.9, Chloride Level 113H, Carbon Dioxide Level 24, Anion Gap 7, Blood Urea Nitrogen 23H, Creatinine 0.7, Estimat Glomerular Filtration Rate > 60, Glucose Level 120H, Calcium Level 8.7, Vancomycin Level Trough 15.1H 05/15/18 18:00: White Blood Count 21.6H, Red Blood Count 4.26L, Hemoglobin 12.3L, Hematocrit 38.8L, Mean Corpuscular Volume 91, Mean Corpuscular Hemoglobin 28.9, Mean Corpuscular Hemoglobin Concent 31.7L, Red Cell Distribution Width 12.8, Platelet Count 257, Mean Platelet Volume 5.3L, Neutrophils (%) (Auto) , Lymphocytes (%) (Auto) , Monocytes (%) (Auto) , Eosinophils (%) (Auto) , Basophils (%) (Auto) , Differential Total Cells Counted 100, Neutrophils % ( Manual) 87H, Lymphocytes % (Manual) 10L, Monocytes % (Manual) 3, Eosinophils % ( Manual) 0, Basophils % (Manual) 0, Band Neutrophils 0, Platelet Estimate Adequate, Platelet Morphology Normal, Sodium Level 142, Potassium Level 3.8, Chloride Level 111H, Carbon Dioxide Level 22, Anion Gap 9, Blood Urea Nitrogen 19H, Creatinine 0.7, Estimat Glomerular Filtration Rate > 60, Glucose Level 154H , Calcium Level 8.6, Red Blood Cell Morphology Normal, Total Bilirubin 0.4, Aspartate Amino Transf (AST/SGOT) 48H, Alanine Aminotransferase (ALT/SGPT) 30, Alkaline Phosphatase 126H, Total Protein 6.6, Albumin 1.3L, Globulin 5.3, Albumin/Globulin Ratio 0.2L Height (Feet): 6 Height (Inches): 5.00 Weight (Pounds): 170 General Appearance: no apparent distress, alert, confused, agitated Julissa Still MD May 15, 2018 23:10
--- NOTE | 2018-05-15 23:10 | Consultation ---
History of Present Illness General Referring physician: dr Caban Reason for Consultation: Sepsis Present Illness HPI 68-year-old gentleman with history of bipolar and hypertension, who was brought to the emergency room for altered mental status and fever. the pt is confused and has waxing and waning of consciousness poor cognition. Allergies: Coded Allergies: MILK (Verified Allergy, Unknown, 02/02/18) Medication History Scheduled Apixaban (Eliquis), 5 MG PO BID, (Reported) Apixaban (Eliquis), 2.5 MG ORAL Q12HR Aripiprazole* (Abilify*), 5 MG ORAL BID, (Reported) Ascorbic Acid* (Vitamin C*), 500 MG ORAL DAILY, (Reported) Cefepime Hcl/D5w (Cefepime-Dextrose 2 Gm/50 Ml), 2 GM IVPB EVERY 12 HOURS Digoxin* (Lanoxin*), 0.25 MG ORAL DAILY Fluticasone/Salmeterol (Advair Hfa 115-21 Mcg Inhaler), 2 PUFFS INH EVERY 12 HOURS, (Reported) Gabapentin* (Gabapentin*), 100 MG ORAL THREE TIMES A DAY Magnesium Hydroxide* (Milk Of Magnesia*), 30 ML ORAL BEDTIME, (Reported) Metoprolol Tartrate* (Metoprolol Tartrate*), 50 MG ORAL BID, (Reported) Metronidazole* (Flagyl*), 500 MG ORAL Q8H Midodrine* (Proamatine*), 5 MG ORAL THREE TIMES A DAY, (Reported) Quetiapine Fumarate* (Seroquel*), 100 MG ORAL BEDTIME, (Reported) Vitamin B Cmplx/Vit C/Folic AC (Nephro-Mykel Tablet), 1 TAB ORAL DAILY, (Reported ) Zinc Sulfate (Zinc Sulfate*), 220 MG ORAL DAILY, (Reported) Scheduled PRN Acetaminophen* (Acetaminophen 325MG Tablet*), 650 MG ORAL Q4H PRN for Mild Pain (Pain Scale 1-3), (Reported) Acetaminophen* (Tylenol Extra Strength*), 1,000 MG ORAL Q4HR PRN for Mild Pain/ Temp > 100.5, (Reported) Bisacodyl (Bisacodyl), 10 MG RC for Constipation, (Reported) Docusate Sodium* (Docusate Sodium*), 100 MG ORAL for Constipation, (Reported) Hydrocodone Bit/Acetaminophen 5-325* ([place] 5-325*), 1 TAB ORAL Q4H PRN for For Pain, (Reported) Zolpidem Tartrate* (Ambien*), 5 MG ORAL BEDTIME PRN for Insomnia, (Reported) Patient History Limited by: medical condition History Provided By: Patient, Medical Record Healthcare decision maker Resuscitation status Full Code Advanced Directive on File No Past Medical/Surgical History Past Medical/Surgical History: (1) Atrial fibrillation (2) Fever (3) Decubitus skin ulcer (4) Sepsis (5) Bipolar disorder (6) CAD (coronary artery disease) (7) CHF (congestive heart failure) (8) Hypertension (9) Atrial fibrillation with rapid ventricular response (10) Leukocytosis (11) UTI (urinary tract infection) (12) Drug abuse (13) CAD (coronary artery disease) (14) Maggot infestation (15) Sepsis (16) HTN (hypertension) (17) CVA (cerebral vascular accident) (18) Leg wound, right (19) Bipolar 1 disorder Review of Systems Psychiatric: Reports: prior hx, anxiety, depressed feelings Physical Exam General Appearance: alert, confused, agitated Last 24 Hour Vital Signs Date Time Temp Pulse Resp B/P (MAP) Pulse Ox O2 Delivery O2 Flow Rate FiO2 05/15/18 21:46 136 05/15/18 20:30 136 110/67 05/15/18 20:00 98.5 136 18 100/67 (78) 95 05/15/18 16:24 97.9 106 20 134/74 (94) 93 05/15/18 15:52 123 05/15/18 12:10 97.7 72 20 106/68 (81) 96 05/15/18 12:00 83 05/15/18 09:41 98.0 05/15/18 09:00 Room Air 05/15/18 08:28 125 139/67 05/15/18 08:28 125 05/15/18 08:10 96.8 125 20 116/67 (83) 93 05/15/18 08:00 138 05/15/18 07:42 95 20 Room Air 21 05/15/18 04:00 98.0 66 20 139/67 (91) 98 05/15/18 04:00 90 05/15/18 00:00 97.9 85 22 125/84 (98) 95 05/15/18 00:00 88 Intake and Output 05/14/18 05/15/18 19:00 07:00 Intake Total 1050 ml Output Total 700 ml 600 ml Balance -700 ml 450 ml IV Total 1050 ml Output Urine Total 700 ml 600 ml Laboratory Tests Test 05/15/18 04:00 05/15/18 18:00 White Blood Count 21.3 K/UL (4.8-10.8) H 21.6 K/UL (4.8-10.8) H Red Blood Count 3.99 M/UL (4.70-6.10) L 4.26 M/UL (4.70-6.10) L Hemoglobin 11.8 G/DL (14.2-18.0) L 12.3 G/DL (14.2-18.0) L Hematocrit 36.6 % (42.0-52.0) L 38.8 % (42.0-52.0) L Mean Corpuscular Volume 92 FL (80-99) 91 FL (80-99) Mean Corpuscular Hemoglobin 29.6 PG (27.0-31.0) 28.9 PG (27.0-31.0) Mean Corpuscular Hemoglobin Concent 32.3 G/DL (32.0-36.0) 31.7 G/DL (32.0-36.0) L Red Cell Distribution Width 12.9 % (11.6-14.8) 12.8 % (11.6-14.8) Platelet Count 236 K/UL (150-450) 257 K/UL (150-450) Mean Platelet Volume 5.4 FL (6.5-10.1) L 5.3 FL (6.5-10.1) L Neutrophils (%) (Auto) % (45.0-75.0) % (45.0-75.0) Lymphocytes (%) (Auto) % (20.0-45.0) % (20.0-45.0) Monocytes (%) (Auto) % (1.0-10.0) % (1.0-10.0) Eosinophils (%) (Auto) % (0.0-3.0) % (0.0-3.0) Basophils (%) (Auto) % (0.0-2.0) % (0.0-2.0) Differential Total Cells Counted 100 100 Neutrophils % (Manual) 91 % (45-75) H 87 % (45-75) H Lymphocytes % (Manual) 2 % (20-45) L 10 % (20-45) L Monocytes % (Manual) 6 % (1-10) 3 % (1-10) Eosinophils % (Manual) 1 % (0-3) 0 % (0-3) Basophils % (Manual) 0 % (0-2) 0 % (0-2) Band Neutrophils 0 % (0-8) 0 % (0-8) Platelet Estimate Adequate Adequate Platelet Morphology Normal Normal Hypochromasia 1+ Sodium Level 143 MMOL/L (136-145) 142 MMOL/L (136-145) Potassium Level 3.9 MMOL/L (3.5-5.1) 3.8 MMOL/L (3.5-5.1) Chloride Level 113 MMOL/L (98-107) H 111 MMOL/L (98-107) H Carbon Dioxide Level 24 MMOL/L (21-32) 22 MMOL/L (21-32) Anion Gap 7 mmol/L (5-15) 9 mmol/L (5-15) Blood Urea Nitrogen 23 mg/dL (7-18) H 19 mg/dL (7-18) H Creatinine 0.7 MG/DL (0.55-1.30) 0.7 MG/DL (0.55-1.30) Estimat Glomerular Filtration Rate > 60 mL/min (>60) > 60 mL/min (>60) Glucose Level 120 MG/DL (74-106) H 154 MG/DL (74-106) H Calcium Level 8.7 MG/DL (8.5-10.1) 8.6 MG/DL (8.5-10.1) Vancomycin Level Trough 15.1 ug/mL (5.0-12.0) H Red Blood Cell Morphology Normal Total Bilirubin 0.4 MG/DL (0.2-1.0) Aspartate Amino Transf (AST/SGOT) 48 U/L (15-37) H Alanine Aminotransferase (ALT/SGPT) 30 U/L (12-78) Alkaline Phosphatase 126 U/L (46-116) H Total Protein 6.6 G/DL (6.4-8.2) Albumin 1.3 G/DL (3.4-5.0) L Globulin 5.3 g/dL Albumin/Globulin Ratio 0.2 (1.0-2.7) L Height (Feet): 6 Height (Inches): 5.00 Weight (Pounds): 170 Medications Current Medications Medications (Trade) Dose Ordered Sig/Erlin Route PRN Reason Start Time Stop Time Status Last Admin Dose Admin Acetaminophen (Tylenol) 650 mg Q4H PRN ORAL Mild Pain/Temp > 100.5 05/12/18 15:00 06/11/18 14:59 Albuterol/ Ipratropium (Albuterol/ Ipratropium) 3 ml Q4H PRN HHN Shortness of Breath 05/13/18 09:00 05/18/18 08:59 Apixaban (Eliquis) 2.5 mg Q12HR ORAL 05/12/18 21:00 06/11/18 20:59 05/15/18 20:30 Cefepime HCl 1 gm/ Dextrose 55 ml @ 110 mls/hr EVERY 12 HOURS IVPB 05/12/18 21:00 05/19/18 20:59 05/15/18 20:32 Digoxin (Lanoxin) 0.125 mg DAILY ORAL 05/16/18 09:00 06/12/18 08:59 Gabapentin (Neurontin) 100 mg THREE TIMES A DAY ORAL 05/12/18 18:00 06/11/18 17:59 05/15/18 17:35 Lorazepam (Ativan 2mg/ml 1ml) 1 mg Q4H PRN IV For Anxiety 05/12/18 15:15 05/19/18 15:14 05/15/18 10:02 Metoprolol Tartrate (Lopressor) 50 mg Q12HR ORAL 05/12/18 21:00 06/11/18 20:59 05/15/18 20:30 Morphine Sulfate (Morphine Sulfate) 2 mg Q4H PRN IVP For Pain 05/12/18 15:00 05/19/18 14:59 05/15/18 08:28 Potassium Chloride 10 meq/ Dextrose/Sodium Chloride 1,005 ml @ 75 mls/hr [id number] IV 05/13/18 15:00 06/12/18 14:59 05/15/18 20:33 Quetiapine Fumarate (SEROquel) 100 mg BEDTIME ORAL 05/12/18 21:00 06/11/18 20:59 05/15/18 20:30 Sodium Hypochlorite (Dakin's Quarter Strength) 1 applic DAILY TOPIC 05/13/18 14:19 06/12/18 14:18 05/15/18 08:37 Vancomycin HCl (Vanco rx to dose) 1 ea DAILY PRN MISC Per rx protocol 05/12/18 15:00 06/11/18 14:59 Vancomycin/Sodium Chloride 250 ml @ 166.667 mls/hr Q8H IVPB 05/14/18 13:00 05/19/18 12:59 05/15/18 20:33 Assessment/Plan Problem List: (1) Bipolar disorder ICD Codes: F31.9 - Bipolar disorder, unspecified SNOMED: 20467877 (2) Drug abuse ICD Codes: F19.10 - Other psychoactive substance abuse, uncomplicated SNOMED: 66679757 (3) encephalopathy due to toxin Status: unchanged Assessment/Plan aminta castillo start seroquel the pt lacks capacity to make decisions Julissa Still MD May 15, 2018 23:10
[2018-05-16] VITALS (19 sets, daily range): BP systolic 90–144; BP diastolic 55–84
[2018-05-16] MEDS: Morphine Sulfate 2mg/ml Inj IVP PRN ×3 (03:50→14:08)
[2018-05-16] MEDS: Vancomycin 750mg/NS 250ml IVPB SCH ×3 (03:57→21:28)
[2018-05-16] MEDS: Eliquis 2.5mg tablet ORAL SCH ×3 (09:57→21:54)
[2018-05-16] MEDS: Digoxin 0.125mg tab ORAL SCH ×2 (10:00→13:16)
[2018-05-16] MEDS: Metoprolol Tartrate 50mg tab ORAL SCH ×2 (10:00→21:47)
[2018-05-16] MEDS: Cefepime HCl 1 GM in D5W 55 ML IVPB SCH ×2 (10:01→21:29)
--- NOTE | 2018-05-16 10:06 | Diagnostic Imaging Report ---
Indication: Cough Technique: One view of the chest Comparison: 04/06/2018 Findings: Hazy opacity of the left lung base likely reflects pleural effusion. There is a focal nodular opacity in the right midlung which was not evident previously, measures 16 mm in diameter. There is some right infrahilar atelectasis. The heart size is normal. The aorta is tortuous and ectatic. Impression: Right midlung nodule. Absence of this finding on previous study makes this more likely to be a focus of inflammation, but rapidly growing neoplasm not excludable. Recommend follow-up with serial chest radiographs, CT scan should lesion failed to resolve. This finding was discussed by phone with Dr. Montesinos at the time of interpretation Left basilar hazy opacity. Most likely a moderate to large pleural effusion. Component of infiltrate or atelectasis is also possible
[2018-05-16] MEDS: Dakin's 0.125% Soln (Quarter Strength) 16oz TOPIC SCH (10:15)
[2018-05-16] MEDS: Potassium Chloride 10 MEQ in D5 1/2NS 1,000 ML IV SCH ×2 (10:20→23:24)
--- NOTE | 2018-05-16 12:07 | Pulmonology Progress Note ---
Assessment/Plan Problems: (1) Sepsis (2) Atrial fibrillation (3) Decubitus skin ulcer (4) Bipolar disorder (5) CAD (coronary artery disease) (6) HTN (hypertension) (7) CVA (cerebral vascular accident) Assessment/Plan iv abx wound care needs to have both legs amputated, if family consents f/u cultures monitor BP watch heart rate in out of sinus. still tachy Subjective ROS Limited/Unobtainable: Yes Interval Events: confused, still tachy , atchy, aflutter Allergies: Coded Allergies: MILK (Verified Allergy, Unknown, 02/02/18) Objective Last 24 Hour Vital Signs Date Time Temp Pulse Resp B/P (MAP) Pulse Ox O2 Delivery O2 Flow Rate FiO2 05/16/18 11:58 136 20 Room Air 21 05/16/18 10:42 97.7 05/16/18 10:00 61 05/16/18 10:00 61 107/74 05/16/18 08:20 Room Air 05/16/18 08:00 97.7 61 24 107/74 (85) 93 05/16/18 04:00 135 05/16/18 04:00 97.8 138 18 112/78 (89) 95 05/16/18 00:00 125 05/15/18 23:53 98.6 128 19 104/70 (81) 95 05/15/18 21:46 136 05/15/18 21:20 125 22 Room Air 21 05/15/18 21:00 Room Air 05/15/18 20:30 136 110/67 05/15/18 20:00 98.5 136 18 100/67 (78) 95 05/15/18 16:24 97.9 106 20 134/74 (94) 93 05/15/18 15:52 123 05/15/18 12:10 97.7 72 20 106/68 (81) 96 Intake and Output 05/15/18 05/16/18 19:00 07:00 Intake Total 840 ml Output Total 600 ml Balance 240 ml Intake Oral 840 ml Output Urine Total 600 ml # Voids 3 General Appearance: cachetic HEENT: normocephalic, atraumatic Respiratory/Chest: chest wall non-tender, lungs clear Cardiovascular: normal peripheral pulses, normal rate Abdomen: normal bowel sounds, soft, non tender Extremities: no clubbing Laboratory Tests 05/15/18 18:00: White Blood Count 21.6H, Red Blood Count 4.26L, Hemoglobin 12.3L, Hematocrit 38.8L, Mean Corpuscular Volume 91, Mean Corpuscular Hemoglobin 28.9, Mean Corpuscular Hemoglobin Concent 31.7L, Red Cell Distribution Width 12.8, Platelet Count 257, Mean Platelet Volume 5.3L, Neutrophils (%) (Auto) , Lymphocytes (%) (Auto) , Monocytes (%) (Auto) , Eosinophils (%) (Auto) , Basophils (%) (Auto) , Differential Total Cells Counted 100, Neutrophils % ( Manual) 87H, Lymphocytes % (Manual) 10L, Monocytes % (Manual) 3, Eosinophils % ( Manual) 0, Basophils % (Manual) 0, Band Neutrophils 0, Platelet Estimate Adequate, Platelet Morphology Normal, Red Blood Cell Morphology Normal, Sodium Level 142, Potassium Level 3.8, Chloride Level 111H, Carbon Dioxide Level 22, Anion Gap 9, Blood Urea Nitrogen 19H, Creatinine 0.7, Estimat Glomerular Filtration Rate > 60, Glucose Level 154H, Calcium Level 8.6, Total Bilirubin 0.4 , Aspartate Amino Transf (AST/SGOT) 48H, Alanine Aminotransferase (ALT/SGPT) 30 , Alkaline Phosphatase 126H, Total Protein 6.6, Albumin 1.3L, Globulin 5.3, Albumin/Globulin Ratio 0.2L Current Medications Medications (Trade) Dose Ordered Sig/Erlin Route PRN Reason Start Time Stop Time Status Last Admin Dose Admin Acetaminophen (Tylenol) 650 mg Q4H PRN ORAL Mild Pain/Temp > 100.5 05/12/18 15:00 06/11/18 14:59 Albuterol/ Ipratropium (Albuterol/ Ipratropium) 3 ml Q4H PRN HHN Shortness of Breath 05/13/18 09:00 05/18/18 08:59 Apixaban (Eliquis) 2.5 mg Q12HR ORAL 05/12/18 21:00 06/11/18 20:59 05/16/18 09:57 Cefepime HCl 1 gm/ Dextrose 55 ml @ 110 mls/hr EVERY 12 HOURS IVPB 05/12/18 21:00 05/19/18 20:59 05/16/18 10:01 Digoxin (Lanoxin) 0.125 mg DAILY ORAL 05/16/18 09:00 06/12/18 08:59 Gabapentin (Neurontin) 100 mg THREE TIMES A DAY ORAL 05/12/18 18:00 06/11/18 17:59 05/16/18 09:57 Lorazepam (Ativan 2mg/ml 1ml) 1 mg Q4H PRN IV For Anxiety 05/12/18 15:15 05/19/18 15:14 05/15/18 10:02 Metoprolol Tartrate (Lopressor) 50 mg Q12HR ORAL 05/12/18 21:00 06/11/18 20:59 05/15/18 20:30 Morphine Sulfate (Morphine Sulfate) 2 mg Q4H PRN IVP For Pain 05/12/18 15:00 05/19/18 14:59 05/16/18 10:12 Potassium Chloride 10 meq/ Dextrose/Sodium Chloride 1,005 ml @ 75 mls/hr [id number] IV 05/13/18 15:00 06/12/18 14:59 05/16/18 10:20 Quetiapine Fumarate (SEROquel) 100 mg BEDTIME ORAL 05/12/18 21:00 06/11/18 20:59 05/15/18 20:30 Sodium Hypochlorite (Dakin's Quarter Strength) 1 applic DAILY TOPIC 05/13/18 14:19 06/12/18 14:18 05/16/18 10:15 Vancomycin HCl (Vanco rx to dose) 1 ea DAILY PRN MISC Per rx protocol 05/12/18 15:00 06/11/18 14:59 Vancomycin/Sodium Chloride 250 ml @ 166.667 mls/hr Q8H IVPB 05/14/18 13:00 05/19/18 12:59 05/16/18 03:57 Minerva Montesinos MD May 16, 2018 12:07
[2018-05-16] MEDS ORDERED: Isovue-300 100ml vial INJ PRN (12:15)
--- NOTE | 2018-05-16 12:18 | Infectious Diseases Prog Note ---
Assessment/Plan Assessment/Plan 68 yo male who was transferred from [place] where he initially presented for AMS from [facility]. Sepsis 2/2 to bacteremia Likely source is skin ulcer Blood Cx 05/12/18 at [facility] -Bcx 05/12 and 24 (here) NTD 2d echo: no vegetations 05/15 CXR: Right midlung nodule. Absence of this finding on previous study makes this more likely to be a focus of inflammation, but rapidly growing neoplasm not excludable. Left basilar hazy opacity. Most likely a moderate to large pleural effusion.Component of infiltrate or atelectasis is also possible 05/12 CXR: Asymmetric ill-defined confluent groundglass opacity within the left mid/inferior lung, of uncertain etiology. 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 Hypertension. Sacral decubitus ulcers. Bipolar disorder. Coronary artery disease. Plan - Continue Cefepime #5 and Vancomycin #5 pending Cx - f/u Blood Cx - Wound care - Monitor CBC and Temps -f/u sp cx, u/a w/ reflex -Cdiff if diarrhea -Obtain records from [facility] for BCx results -CT chest/abd/p -Sx and podiatry f/u: recommend b/l LE amputations Thank you for this consult. We will continue to follow the patient during this hospitalization. Subjective Allergies: Coded Allergies: MILK (Verified Allergy, Unknown, 02/02/18) Subjective afebrile wbc improved but remains 20-21 At Bcx NTD Objective Vital Signs Last 24 Hour Vital Signs Date Time Temp Pulse Resp B/P (MAP) Pulse Ox O2 Delivery O2 Flow Rate FiO2 05/16/18 11:58 136 20 Room Air 21 05/16/18 10:42 97.7 05/16/18 10:00 61 05/16/18 10:00 61 107/74 05/16/18 08:20 Room Air 05/16/18 08:00 97.7 61 24 107/74 (85) 93 05/16/18 04:00 135 05/16/18 04:00 97.8 138 18 112/78 (89) 95 05/16/18 00:00 125 05/15/18 23:53 98.6 128 19 104/70 (81) 95 05/15/18 21:46 136 05/15/18 21:20 125 22 Room Air 21 05/15/18 21:00 Room Air 05/15/18 20:30 136 110/67 05/15/18 20:00 98.5 136 18 100/67 (78) 95 05/15/18 16:24 97.9 106 20 134/74 (94) 93 05/15/18 15:52 123 05/15/18 12:10 97.7 72 20 106/68 (81) 96 Height (Feet): 6 Height (Inches): 5.00 Weight (Pounds): 170 Objective Gen: NAD. Mumbling HEENT: NCAT, MMM, EOMI, No Oral lesion, no scleral icterus NECK: full range of motion, supple, no meningismus, No LAD, No JVD LUNGS: CTAB, No W/C, No Accessory muscle use CARDS: RRR, S1, S2, No M/R/G ABD: Soft, NT, ND, No R/G, + BS, No HSM, No Masses : Deferred Ext: C/C/E, Pulses 2+ B/L (DP, Rad) NEURO: A/O x 0, Strength and Sensation Grossly intact PSYCH: mood/affect normal SKIN: Left foot wound. No purulent drainage, Feet now bandaged Laboratory Tests Test 05/15/18 18:00 White Blood Count 21.6 K/UL (4.8-10.8) H Red Blood Count 4.26 M/UL (4.70-6.10) L Hemoglobin 12.3 G/DL (14.2-18.0) L Hematocrit 38.8 % (42.0-52.0) L Mean Corpuscular Volume 91 FL (80-99) Mean Corpuscular Hemoglobin 28.9 PG (27.0-31.0) Mean Corpuscular Hemoglobin Concent 31.7 G/DL (32.0-36.0) L Red Cell Distribution Width 12.8 % (11.6-14.8) Platelet Count 257 K/UL (150-450) Mean Platelet Volume 5.3 FL (6.5-10.1) L Neutrophils (%) (Auto) % (45.0-75.0) Lymphocytes (%) (Auto) % (20.0-45.0) Monocytes (%) (Auto) % (1.0-10.0) Eosinophils (%) (Auto) % (0.0-3.0) Basophils (%) (Auto) % (0.0-2.0) Differential Total Cells Counted 100 Neutrophils % (Manual) 87 % (45-75) H Lymphocytes % (Manual) 10 % (20-45) L Monocytes % (Manual) 3 % (1-10) Eosinophils % (Manual) 0 % (0-3) Basophils % (Manual) 0 % (0-2) Band Neutrophils 0 % (0-8) Platelet Estimate Adequate Platelet Morphology Normal Red Blood Cell Morphology Normal Sodium Level 142 MMOL/L (136-145) Potassium Level 3.8 MMOL/L (3.5-5.1) Chloride Level 111 MMOL/L (98-107) H Carbon Dioxide Level 22 MMOL/L (21-32) Anion Gap 9 mmol/L (5-15) Blood Urea Nitrogen 19 mg/dL (7-18) H Creatinine 0.7 MG/DL (0.55-1.30) Estimat Glomerular Filtration Rate > 60 mL/min (>60) Glucose Level 154 MG/DL (74-106) H Calcium Level 8.6 MG/DL (8.5-10.1) Total Bilirubin 0.4 MG/DL (0.2-1.0) Aspartate Amino Transf (AST/SGOT) 48 U/L (15-37) H Alanine Aminotransferase (ALT/SGPT) 30 U/L (12-78) Alkaline Phosphatase 126 U/L (46-116) H Total Protein 6.6 G/DL (6.4-8.2) Albumin 1.3 G/DL (3.4-5.0) L Globulin 5.3 g/dL Albumin/Globulin Ratio 0.2 (1.0-2.7) L Current Medications Medications (Trade) Dose Ordered Sig/Erlin Route PRN Reason Start Time Stop Time Status Last Admin Dose Admin Acetaminophen (Tylenol) 650 mg Q4H PRN ORAL Mild Pain/Temp > 100.5 05/12/18 15:00 06/11/18 14:59 Albuterol/ Ipratropium (Albuterol/ Ipratropium) 3 ml Q4H PRN HHN Shortness of Breath 05/13/18 09:00 05/18/18 08:59 Apixaban (Eliquis) 2.5 mg Q12HR ORAL 05/12/18 21:00 06/11/18 20:59 05/16/18 09:57 Cefepime HCl 1 gm/ Dextrose 55 ml @ 110 mls/hr EVERY 12 HOURS IVPB 05/12/18 21:00 05/19/18 20:59 05/16/18 10:01 Digoxin (Lanoxin) 0.125 mg DAILY ORAL 05/16/18 09:00 06/12/18 08:59 Gabapentin (Neurontin) 100 mg THREE TIMES A DAY ORAL 05/12/18 18:00 06/11/18 17:59 05/16/18 09:57 Lorazepam (Ativan 2mg/ml 1ml) 1 mg Q4H PRN IV For Anxiety 05/12/18 15:15 05/19/18 15:14 05/15/18 10:02 Metoprolol Tartrate (Lopressor) 50 mg Q12HR ORAL 05/12/18 21:00 06/11/18 20:59 05/15/18 20:30 Morphine Sulfate (Morphine Sulfate) 2 mg Q4H PRN IVP For Pain 05/12/18 15:00 05/19/18 14:59 05/16/18 10:12 Potassium Chloride 10 meq/ Dextrose/Sodium Chloride 1,005 ml @ 75 mls/hr [id number] IV 05/13/18 15:00 06/12/18 14:59 05/16/18 10:20 Quetiapine Fumarate (SEROquel) 100 mg BEDTIME ORAL 05/12/18 21:00 06/11/18 20:59 05/15/18 20:30 Sodium Hypochlorite (Dakin's Quarter Strength) 1 applic DAILY TOPIC 05/13/18 14:19 06/12/18 14:18 05/16/18 10:15 Vancomycin HCl (Vanco rx to dose) 1 ea DAILY PRN MISC Per rx protocol 05/12/18 15:00 06/11/18 14:59 Vancomycin/Sodium Chloride 250 ml @ 166.667 mls/hr Q8H IVPB 05/14/18 13:00 05/19/18 12:59 05/16/18 03:57 Alma Elkins M.D. May 16, 2018 12:18
--- NOTE | 2018-05-16 12:53 | General Surgery Progress Note ---
General Surgery-Progress Note Subjective Additional Comments leukocytosis. awake but not competent Objective Last 24 Hour Vital Signs Date Time Temp Pulse Resp B/P (MAP) Pulse Ox O2 Delivery O2 Flow Rate FiO2 05/16/18 11:58 136 20 Room Air 21 05/16/18 10:42 97.7 05/16/18 10:00 61 05/16/18 10:00 61 107/74 05/16/18 08:20 Room Air 05/16/18 08:00 97.7 61 24 107/74 (85) 93 05/16/18 04:00 135 05/16/18 04:00 97.8 138 18 112/78 (89) 95 05/16/18 00:00 125 05/15/18 23:53 98.6 128 19 104/70 (81) 95 05/15/18 21:46 136 05/15/18 21:20 125 22 Room Air 21 05/15/18 21:00 Room Air 05/15/18 20:30 136 110/67 05/15/18 20:00 98.5 136 18 100/67 (78) 95 05/15/18 16:24 97.9 106 20 134/74 (94) 93 05/15/18 15:52 123 I&O Intake and Output 05/15/18 05/16/18 19:00 07:00 Intake Total 840 ml Output Total 600 ml Balance 240 ml Intake Oral 840 ml Output Urine Total 600 ml # Voids 3 Dressing: saturated Wound: other Drains: other Cardiovascular: RSR Respiratory: clear Abdomen: soft, flat, non-tender, present bowel sounds Extremities: other Laboratory Tests Test 05/15/18 18:00 White Blood Count 21.6 K/UL (4.8-10.8) H Red Blood Count 4.26 M/UL (4.70-6.10) L Hemoglobin 12.3 G/DL (14.2-18.0) L Hematocrit 38.8 % (42.0-52.0) L Mean Corpuscular Volume 91 FL (80-99) Mean Corpuscular Hemoglobin 28.9 PG (27.0-31.0) Mean Corpuscular Hemoglobin Concent 31.7 G/DL (32.0-36.0) L Red Cell Distribution Width 12.8 % (11.6-14.8) Platelet Count 257 K/UL (150-450) Mean Platelet Volume 5.3 FL (6.5-10.1) L Neutrophils (%) (Auto) % (45.0-75.0) Lymphocytes (%) (Auto) % (20.0-45.0) Monocytes (%) (Auto) % (1.0-10.0) Eosinophils (%) (Auto) % (0.0-3.0) Basophils (%) (Auto) % (0.0-2.0) Differential Total Cells Counted 100 Neutrophils % (Manual) 87 % (45-75) H Lymphocytes % (Manual) 10 % (20-45) L Monocytes % (Manual) 3 % (1-10) Eosinophils % (Manual) 0 % (0-3) Basophils % (Manual) 0 % (0-2) Band Neutrophils 0 % (0-8) Platelet Estimate Adequate Platelet Morphology Normal Red Blood Cell Morphology Normal Sodium Level 142 MMOL/L (136-145) Potassium Level 3.8 MMOL/L (3.5-5.1) Chloride Level 111 MMOL/L (98-107) H Carbon Dioxide Level 22 MMOL/L (21-32) Anion Gap 9 mmol/L (5-15) Blood Urea Nitrogen 19 mg/dL (7-18) H Creatinine 0.7 MG/DL (0.55-1.30) Estimat Glomerular Filtration Rate > 60 mL/min (>60) Glucose Level 154 MG/DL (74-106) H Calcium Level 8.6 MG/DL (8.5-10.1) Total Bilirubin 0.4 MG/DL (0.2-1.0) Aspartate Amino Transf (AST/SGOT) 48 U/L (15-37) H Alanine Aminotransferase (ALT/SGPT) 30 U/L (12-78) Alkaline Phosphatase 126 U/L (46-116) H Total Protein 6.6 G/DL (6.4-8.2) Albumin 1.3 G/DL (3.4-5.0) L Globulin 5.3 g/dL Albumin/Globulin Ratio 0.2 (1.0-2.7) L Plan Problems: (1) Sepsis Assessment & Plan: etiology of leukocytosis unknown will need further work up IV abx appreciate ID input trend labs Discussed findings with Vascular and Podiatry Agree that lower extremities are not salvageable. Would recommend bilateral AKA Need to contact family and discuss. Patient without capacity to make decision. Need to work on consent Needs POA or designated Next of Kin as proposed surgery is very invasive (2) Decubitus skin ulcer Assessment & Plan: Patient well known to me. Has had chronic wounds on sacrum, buttock, and lower extremities. Prior had maggots in lower extremities treated with Dakins and wound care which are since resolved. Multiple pressure ulcers. Patient unable to participate in exam and care plan. Now presents with multiple ulcerations to both lower extremities. Wounds are irregular malodorous. Both lower ext. cool to touch. Toes necrotic with ulcerations 1st, 2nd and 3rd metatarsals ulcerated. Ulcers dorsal aspects of toes L foot.Web spaces of toes are dry . Full thickness pressure injury to sacrum with 60% slough,(+) epibole.Wound measures (L)7cm x (W)7.5cm x (D)2.5cm. Periwound dark .Wound malodorous. Right buttock and ischial tuberosity which are large and with eschar cap unstageable full thickness. both heels have DTI with blood blisters noted. Wounds have significantly deteriorated since last admission with new wounds noted on lower extremities and buttock. Areas of prior maggot infection are healing but still with wounds. Refer to wound care photos for details. Tx.Plan: Cleanse both lower ext wounds with NS . Skin protectant .Dakin's 0.25% moist gauze, Cover with ABD and wrap with soft chavez daily an dprn Apply Light dusting of Oliver Starch or baby powder in web spaces of toes on feet Clean sacral decubitus and buttock ulcer with NS, apply skin protectant / honey gel, apply foam dressing daily and prn Air Fluidized mattress on bed (P200). Encourage and assist with repositioning at least every 2hours or as tolerated. Off-load heels with pillow. would appreciate Podiatry and Vascular consult as I dont anticipate lower extremity will be salvageable at this time. Recommend bilateral AKA. patient does not seem to have capacity. psych eval Duplex studies Goyo Osuna May 16, 2018 12:53
[2018-05-16 13:07] LABS: BASOPHILS % (AUTO) 0.5 % (0.0-2.0); EOSINOPHILS % (AUTO) 1.4 % (0.0-3.0); HEMATOCRIT 39.6 % (42.0-52.0); HEMOGLOBIN 12.6 G/DL (14.2-18.0); LYMPHOCYTES % (AUTO) 9.2 % (20.0-45.0); MEAN CORPUSCULAR VOLUME 91 FL (80-99); MONOCYTES % (AUTO) 6.1 % (1.0-10.0); NEUTROPHILS % (AUTO) 82.8 % (45.0-75.0); PLATELET COUNT 239 K/UL (150-450); RED BLOOD COUNT 4.34 M/UL (4.70-6.10); RED CELL DISTRIBUTION WIDTH 12.5 % (11.6-14.8); WHITE BLOOD COUNT 17.9 K/UL (4.8-10.8)
[2018-05-16 13:22] LABS: ALANINE AMINOTRANSFERASE 21 U/L (12-78); ALBUMIN 1.3 G/DL (3.4-5.0); ALBUMIN/GLOBULIN RATIO 0.2 (1.0-2.7); ALKALINE PHOSPHATASE 130 U/L (46-116); ANION GAP 9 mmol/L (5-15); ASPARTATE AMINO TRANSFERASE 57 U/L (15-37); BILIRUBIN,TOTAL 0.5 MG/DL (0.2-1.0); BLOOD UREA NITROGEN 18 mg/dL (7-18); CALCIUM 8.3 MG/DL (8.5-10.1); CARBON DIOXIDE 22 MMOL/L (21-32); CHLORIDE 111 MMOL/L (98-107); CREATININE 0.7 MG/DL (0.55-1.30); POTASSIUM 3.7 MMOL/L (3.5-5.1); SODIUM 142 MMOL/L (136-145)
--- NOTE | 2018-05-16 16:31 | Cardiac Electrophysiology PN ---
Assessment/Plan Assessment/Plan 1. Paroxysmal Atrial fibrillation with rapid ventricular response. Had RVR again today despite being on digoxin 0.125 mg daily and metoprolol 50 mg bid Start Cardizem drip at 10 mg/hr in ICU and add Amiodarone 400 bid. Continue Eliquis 2.5 mg b.i.d. Dig level 1.9. 2. Borderline hypotension. Resolved, off midodrine. 3. Fever and sepsis, on antibiotic with vancomycin and cefepime. 4. History of dementia and severe psychosis, on Seroquel. 5. Severe bilateral leg ulcers and sacral decubitus. FU Dr Osuna Has had chronic wounds on sacrum, buttock, and lower extremities. Prior had maggots in lower extremities treated with Dakins Need to hold Eliquis if surgery is planned DW RN Subjective Subjective Just transferred to ICU per my request as was in atrial fib with RVR 140s. Objective Last 24 Hour Vital Signs Date Time Temp Pulse Resp B/P (MAP) Pulse Ox O2 Delivery O2 Flow Rate FiO2 05/16/18 16:00 138 05/16/18 16:00 98.6 138 25 120/79 (93) 96 05/16/18 14:38 97.7 05/16/18 13:16 143 05/16/18 12:00 97.7 136 24 111/77 (88) 96 05/16/18 11:58 136 20 Room Air 21 05/16/18 11:36 137 05/16/18 10:00 61 05/16/18 10:00 61 107/74 05/16/18 08:20 Room Air 05/16/18 08:00 97.7 61 24 107/74 (85) 93 05/16/18 07:54 137 05/16/18 04:00 135 05/16/18 04:00 97.8 138 18 112/78 (89) 95 05/16/18 00:00 125 05/15/18 23:53 98.6 128 19 104/70 (81) 95 05/15/18 21:46 136 05/15/18 21:20 125 22 Room Air 21 05/15/18 21:00 Room Air 05/15/18 20:30 136 110/67 05/15/18 20:00 98.5 136 18 100/67 (78) 95 Intake and Output 05/15/18 05/16/18 19:00 07:00 Intake Total 840 ml Output Total 600 ml Balance 240 ml Intake Oral 840 ml Output Urine Total 600 ml # Voids 3 Laboratory Tests Test 05/15/18 18:00 05/16/18 12:55 White Blood Count 21.6 K/UL (4.8-10.8) H 17.9 K/UL (4.8-10.8) H Red Blood Count 4.26 M/UL (4.70-6.10) L 4.34 M/UL (4.70-6.10) L Hemoglobin 12.3 G/DL (14.2-18.0) L 12.6 G/DL (14.2-18.0) L Hematocrit 38.8 % (42.0-52.0) L 39.6 % (42.0-52.0) L Mean Corpuscular Volume 91 FL (80-99) 91 FL (80-99) Mean Corpuscular Hemoglobin 28.9 PG (27.0-31.0) 29.1 PG (27.0-31.0) Mean Corpuscular Hemoglobin Concent 31.7 G/DL (32.0-36.0) L 31.9 G/DL (32.0-36.0) L Red Cell Distribution Width 12.8 % (11.6-14.8) 12.5 % (11.6-14.8) Platelet Count 257 K/UL (150-450) 239 K/UL (150-450) Mean Platelet Volume 5.3 FL (6.5-10.1) L 5.8 FL (6.5-10.1) L Neutrophils (%) (Auto) % (45.0-75.0) 82.8 % (45.0-75.0) H Lymphocytes (%) (Auto) % (20.0-45.0) 9.2 % (20.0-45.0) L Monocytes (%) (Auto) % (1.0-10.0) 6.1 % (1.0-10.0) Eosinophils (%) (Auto) % (0.0-3.0) 1.4 % (0.0-3.0) Basophils (%) (Auto) % (0.0-2.0) 0.5 % (0.0-2.0) Differential Total Cells Counted 100 Neutrophils % (Manual) 87 % (45-75) H Lymphocytes % (Manual) 10 % (20-45) L Monocytes % (Manual) 3 % (1-10) Eosinophils % (Manual) 0 % (0-3) Basophils % (Manual) 0 % (0-2) Band Neutrophils 0 % (0-8) Platelet Estimate Adequate Platelet Morphology Normal Red Blood Cell Morphology Normal Sodium Level 142 MMOL/L (136-145) 142 MMOL/L (136-145) Potassium Level 3.8 MMOL/L (3.5-5.1) 3.7 MMOL/L (3.5-5.1) Chloride Level 111 MMOL/L (98-107) H 111 MMOL/L (98-107) H Carbon Dioxide Level 22 MMOL/L (21-32) 22 MMOL/L (21-32) Anion Gap 9 mmol/L (5-15) 9 mmol/L (5-15) Blood Urea Nitrogen 19 mg/dL (7-18) H 18 mg/dL (7-18) Creatinine 0.7 MG/DL (0.55-1.30) 0.7 MG/DL (0.55-1.30) Estimat Glomerular Filtration Rate > 60 mL/min (>60) > 60 mL/min (>60) Glucose Level 154 MG/DL (74-106) H 132 MG/DL (74-106) H Calcium Level 8.6 MG/DL (8.5-10.1) 8.3 MG/DL (8.5-10.1) L Total Bilirubin 0.4 MG/DL (0.2-1.0) 0.5 MG/DL (0.2-1.0) Aspartate Amino Transf (AST/SGOT) 48 U/L (15-37) H 57 U/L (15-37) H Alanine Aminotransferase (ALT/SGPT) 30 U/L (12-78) 21 U/L (12-78) Alkaline Phosphatase 126 U/L (46-116) H 130 U/L (46-116) H Total Protein 6.6 G/DL (6.4-8.2) 6.6 G/DL (6.4-8.2) Albumin 1.3 G/DL (3.4-5.0) L 1.3 G/DL (3.4-5.0) L Globulin 5.3 g/dL 5.3 g/dL Albumin/Globulin Ratio 0.2 (1.0-2.7) L 0.2 (1.0-2.7) L Objective HEAD AND NECK: Mild JVD. LUNGS: Coarse rhonchi. CARDIOVASCULAR: Irregular tachy S1 and S2 with no murmur. ABDOMEN: Soft. EXTREMITIES: Bilateral leg ulcers Amandeep Arora MD May 16, 2018 16:31
[2018-05-16] MEDS ORDERED: Tubing IV Secondary IV ONE (16:58)
[2018-05-16] MEDS ORDERED: NS 275ml ONE (16:58)
--- NOTE | 2018-05-16 18:00 | Progress Note ---
DATE: 05/16/2018 SUBJECTIVE: The patient is still confused, has waxing and waning consciousness, only oriented to self. He is not able to be engaged during the evaluation and answer questions appropriately. The patient is a poor historian. MENTAL STATUS EXAMINATION: The patient is alert and oriented x1. Mood is anxious. Affect is constricted. Congruent with mood. Thought process is concrete. Thought content, no suicidal or homicidal ideation. Cognition is impaired. ASSESSMENT: 1. Bipolar disorder. 2. Encephalopathy due to toxin. 3. Substance use disorder in the past. PLAN: 1. We will continue the Seroquel. 2. Continue Ativan as needed. 3. The patient lacks capacity to make decision. Julissa Still M.D. DR: Cori JOB#: [id number] CC:
--- NOTE | 2018-05-16 19:09 | Internal Med Progress Note ---
Subjective Date of Service: May 16, 2018 Physician Name Daniel Jackson Attending Physician Pedro Caban MD Current Medications Medications (Trade) Dose Ordered Sig/Erlin Route PRN Reason Start Time Stop Time Status Last Admin Dose Admin Acetaminophen (Tylenol) 650 mg Q4H PRN ORAL Mild Pain/Temp > 100.5 05/12/18 15:00 06/11/18 14:59 Albuterol/ Ipratropium (Albuterol/ Ipratropium) 3 ml Q4H PRN HHN Shortness of Breath 05/13/18 09:00 05/18/18 08:59 Amiodarone HCl (Cordarone) 400 mg EVERY 12 HOURS ORAL 05/16/18 21:00 06/15/18 20:59 Apixaban (Eliquis) 2.5 mg Q12HR ORAL 05/12/18 21:00 06/11/18 20:59 05/16/18 09:57 Barium Sulfate (Readi-Cat 2) 450 ml NOW PRN ORAL Radiology Procedure 05/16/18 12:15 05/18/18 12:10 Cefepime HCl 1 gm/ Dextrose 55 ml @ 110 mls/hr EVERY 12 HOURS IVPB 05/12/18 21:00 05/19/18 20:59 05/16/18 10:01 Digoxin (Lanoxin) 0.125 mg DAILY ORAL 05/16/18 09:00 06/12/18 08:59 05/16/18 13:16 Diltiazem HCl 125 mg/Dextrose 125 ml @ 10 mls/hr [id number] IVPB 05/16/18 16:30 05/17/18 16:29 05/16/18 17:00 Gabapentin (Neurontin) 100 mg THREE TIMES A DAY ORAL 05/12/18 18:00 06/11/18 17:59 05/16/18 18:01 Iopamidol (Isovue-300 100ml) 100 ml NOW PRN INJ Radiology Procedure 05/16/18 12:15 05/16/18 23:59 Lorazepam (Ativan 2mg/ml 1ml) 1 mg Q4H PRN IV For Anxiety 05/12/18 15:15 05/19/18 15:14 05/15/18 10:02 Metoprolol Tartrate (Lopressor) 50 mg Q12HR ORAL 05/12/18 21:00 06/11/18 20:59 05/15/18 20:30 Morphine Sulfate (Morphine Sulfate) 2 mg Q4H PRN IVP For Pain 05/12/18 15:00 05/19/18 14:59 05/16/18 14:08 Potassium Chloride 10 meq/ Dextrose/Sodium Chloride 1,005 ml @ 75 mls/hr [id number] IV 05/13/18 15:00 06/12/18 14:59 05/16/18 10:20 Quetiapine Fumarate (SEROquel) 100 mg BEDTIME ORAL 05/12/18 21:00 06/11/18 20:59 05/15/18 20:30 Sodium Hypochlorite (Dakin's Quarter Strength) 1 applic DAILY TOPIC 05/13/18 14:19 06/12/18 14:18 05/16/18 10:15 Vancomycin HCl (Vanco rx to dose) 1 ea DAILY PRN MISC Per rx protocol 05/12/18 15:00 06/11/18 14:59 Vancomycin/Sodium Chloride 250 ml @ 166.667 mls/hr Q8H IVPB 05/14/18 13:00 05/19/18 12:59 05/16/18 14:08 Allergies: Coded Allergies: MILK (Verified Allergy, Unknown, 02/02/18) ROS Limited/Unobtainable: No Constitutional: Reports: no symptoms HEENT: Reports: no symptoms Cardiovascular: Reports: no symptoms Respiratory: Reports: no symptoms Gastrointestinal/Abdominal: Reports: no symptoms Genitourinary: Reports: no symptoms 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: Reports: no symptoms Subjective 68 YO A M admitted with altered mental status. Now sepsis. Cover for Int Med- Dr Caban. Transferred to ICU for atrial fibrillation with rapid rate. Objective Last Vital Signs Date Time Temp Pulse Resp B/P (MAP) Pulse Ox O2 Delivery O2 Flow Rate FiO2 05/16/18 18:59 114 20 117/63 (81) 100 05/16/18 16:00 98.6 05/16/18 11:58 Room Air 21 Laboratory Tests Test 05/16/18 12:55 White Blood Count 17.9 K/UL (4.8-10.8) H Red Blood Count 4.34 M/UL (4.70-6.10) L Hemoglobin 12.6 G/DL (14.2-18.0) L Hematocrit 39.6 % (42.0-52.0) L Mean Corpuscular Volume 91 FL (80-99) Mean Corpuscular Hemoglobin 29.1 PG (27.0-31.0) Mean Corpuscular Hemoglobin Concent 31.9 G/DL (32.0-36.0) L Red Cell Distribution Width 12.5 % (11.6-14.8) Platelet Count 239 K/UL (150-450) Mean Platelet Volume 5.8 FL (6.5-10.1) L Neutrophils (%) (Auto) 82.8 % (45.0-75.0) H Lymphocytes (%) (Auto) 9.2 % (20.0-45.0) L Monocytes (%) (Auto) 6.1 % (1.0-10.0) Eosinophils (%) (Auto) 1.4 % (0.0-3.0) Basophils (%) (Auto) 0.5 % (0.0-2.0) Sodium Level 142 MMOL/L (136-145) Potassium Level 3.7 MMOL/L (3.5-5.1) Chloride Level 111 MMOL/L (98-107) H Carbon Dioxide Level 22 MMOL/L (21-32) Anion Gap 9 mmol/L (5-15) Blood Urea Nitrogen 18 mg/dL (7-18) Creatinine 0.7 MG/DL (0.55-1.30) Estimat Glomerular Filtration Rate > 60 mL/min (>60) Glucose Level 132 MG/DL (74-106) H Calcium Level 8.3 MG/DL (8.5-10.1) L Total Bilirubin 0.5 MG/DL (0.2-1.0) Aspartate Amino Transf (AST/SGOT) 57 U/L (15-37) H Alanine Aminotransferase (ALT/SGPT) 21 U/L (12-78) Alkaline Phosphatase 130 U/L (46-116) H Total Protein 6.6 G/DL (6.4-8.2) Albumin 1.3 G/DL (3.4-5.0) L Globulin 5.3 g/dL Albumin/Globulin Ratio 0.2 (1.0-2.7) L Intake and Output 05/15/18 05/16/18 19:00 07:00 Intake Total 840 ml Output Total 600 ml Balance 240 ml Intake Oral 840 ml Output Urine Total 600 ml # Voids 3 Objective General Appearance: alert, thin, agitated EENT: PERRL/EOMI, normal ENT inspection Neck: non-tender, normal alignment, supple, normal inspection Cardiovascular: normal peripheral pulses, normal rate, no gallop/murmur, no JVD , irregularly irregular Respiratory/Chest: chest wall non-tender, lungs clear, normal breath sounds, no respiratory distress, no accessory muscle use Abdomen: normal bowel sounds, non tender, soft, no organomegaly, no mass Extremities: normal range of motion, non-tender 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 Continue metoprolol and digoxin per cardiology. Continue eliquis (3) Hypertension Assessment & Plan: continue metoprolol (4) CAD (coronary artery disease) (5) Bipolar disorder (6) Fever (7) Decubitus skin ulcer Assessment & Plan: Will require bilateral above the knee amputation-see surgery consult. (8) Sepsis Assessment & Plan: Continue antibiotic per ID (9) UTI (urinary tract infection) Assessment & Plan: Mixed culture-continue vanco and cefepime per ID (10) Leukocytosis Status: not improved Daniel Jackson MD May 16, 2018 19:09
[2018-05-16] MEDS: Amiodarone 200mg tab ORAL SCH (21:30)
[2018-05-17] VITALS (36 sets, daily range): BP systolic 105–146; BP diastolic 40–87
[2018-05-17 05:08] LABS: BASOPHILS % (AUTO) 0.4 % (0.0-2.0); EOSINOPHILS % (AUTO) 1.8 % (0.0-3.0); HEMOGLOBIN 11.4 G/DL (14.2-18.0); MEAN CORPUSCULAR VOLUME 91 FL (80-99); MONOCYTES % (AUTO) 7.2 % (1.0-10.0); NEUTROPHILS % (AUTO) 80.5 % (45.0-75.0); PLATELET COUNT 261 K/UL (150-450); RED BLOOD COUNT 3.86 M/UL (4.70-6.10); WHITE BLOOD COUNT 17.2 K/UL (4.8-10.8)
[2018-05-17] MEDS: Vancomycin 750mg/NS 250ml IVPB SCH (05:25)
[2018-05-17 05:39] LABS: ANION GAP 7 mmol/L (5-15); BLOOD UREA NITROGEN 15 mg/dL (7-18); CARBON DIOXIDE 24 MMOL/L (21-32); CHLORIDE 110 MMOL/L (98-107); CREATININE 0.6 MG/DL (0.55-1.30); POTASSIUM 3.6 MMOL/L (3.5-5.1); SODIUM 141 MMOL/L (136-145)
[2018-05-17] MEDS: Metoprolol Tartrate 50mg tab ORAL SCH (09:39)
[2018-05-17] MEDS: Eliquis 2.5mg tablet ORAL SCH (09:39)
[2018-05-17] MEDS: Amiodarone 200mg tab ORAL SCH (09:39)
[2018-05-17] MEDS: Digoxin 0.125mg tab ORAL SCH (09:39)
[2018-05-17] MEDS: Morphine Sulfate 2mg/ml Inj IVP PRN (09:41)
[2018-05-17] MEDS: Cefepime HCl 1 GM in D5W 55 ML IVPB SCH (10:00)
--- NOTE | 2018-05-17 10:55 | Pulmonolgy Critical Care Note ---
Critical Care - Asmt/Plan Problems: (1) Atrial fibrillation with rapid ventricular response (2) Sepsis (3) Decubitus skin ulcer (4) Fever (5) CVA (cerebral vascular accident) (6) Bipolar disorder Respiratory: monitor respiratory rate, adjust FIO2, CXR Cardiac: continue to monitor HR/BP, d/c residential monitor Renal: F/U I&O Infectious Disease: continue antibiotics Gastrointestinal: continue feedings/current rate, other - eating purred diet Endocrine: check TSH Neurologic: PRN Morphine Prophylaxis: Protonix Time Spent (Minutes): 40 Notes Reviewed: senior budget analyst, cardio, renal Discussed with: nurses, consultants, showcase makerclaims account manager - Objective Last 24 Hour Vital Signs Date Time Temp Pulse Resp B/P (MAP) Pulse Ox O2 Delivery O2 Flow Rate FiO2 05/17/18 09:39 105 05/17/18 09:39 101 119/78 05/17/18 06:50 100 22 Room Air 21 05/17/18 06:00 92 23 137/86 (103) 100 05/17/18 05:30 92 23 137/75 (95) 100 05/17/18 05:24 91 125/87 05/17/18 05:00 91 22 123/87 (99) 100 05/17/18 04:30 91 22 133/74 (93) 100 05/17/18 04:00 Room Air 05/17/18 04:00 95 05/17/18 04:00 97.8 100 21 136/74 (94) 69 05/17/18 03:48 105 19 136/75 (95) 97 05/17/18 03:30 98 18 140/40 (73) 95 05/17/18 03:00 99 20 125/45 (71) 99 05/17/18 02:30 103 21 146/40 (75) 05/17/18 02:00 97 26 142/80 (100) 87 05/17/18 01:30 87 17 132/71 (91) 05/17/18 01:00 93 25 127/60 (82) 100 05/17/18 00:30 78 20 117/77 (90) 100 05/17/18 00:00 97.5 90 24 121/48 (72) 100 05/17/18 00:00 90 05/17/18 00:00 Room Air 11/27/18 23:30 70 24 144/84 (104) 100 05/16/18 23:00 79 20 111/62 (78) 100 05/16/18 22:30 83 22 109/55 (73) 100 05/16/18 22:00 90 21 121/69 (86) 100 05/16/18 21:47 108 118/56 05/16/18 21:30 113 22 118/56 (76) 100 05/16/18 21:00 115 22 129/61 (83) 100 05/16/18 20:30 117 24 112/63 (79) 100 05/16/18 20:00 Room Air 05/16/18 20:00 97.6 125 24 120/60 (80) 100 05/16/18 20:00 125 05/16/18 19:40 143 18 Room Air 21 05/16/18 19:30 131 25 126/70 (88) 100 05/16/18 19:00 122 22 131/70 (90) 100 05/16/18 18:59 114 20 117/63 (81) 100 05/16/18 18:30 96 22 121/71 (88) 100 05/16/18 17:59 79 21 90/69 (76) 100 05/16/18 17:30 97 22 113/62 (79) 100 05/16/18 17:00 138 25 112/65 (81) 100 05/16/18 17:00 138 120/65 05/16/18 16:00 138 05/16/18 16:00 98.6 138 25 120/79 (93) 96 05/16/18 14:38 97.7 05/16/18 13:16 143 05/16/18 12:00 97.7 136 24 111/77 (88) 96 05/16/18 11:58 136 20 Room Air 21 05/16/18 11:36 137 Status: sedated Condition: critical HEENT: atraumatic Neck: full ROM Lungs: clear Heart: HR/BP unstable Abdomen: soft, active bowel sounds Extremities: other Decubiti: other - extensive Critical Care - Subjective ROS Limited/Unobtainable: No Interval Events: pt transferred to ICU yesterday for low BP and rapid afib. was started on Cardizem drip and loading dose of Amiodarone Condition: critical EKG Rhythm: Sinus Rhythm FI02: 21 Sputum Amount: None Fluids: Ns Drips: Cardizem I&O: Intake and Output 05/16/18 05/17/18 18:59 06:59 Intake Total 460 ml 1367.667 ml Output Total 0 ml 680 ml Balance 460 ml 687.667 ml Intake Oral 300 ml IV Total 160 ml 1367.667 ml Output Urine Total 0 ml 680 ml CXR: Left effusion Labs: Laboratory Tests Test 05/16/18 12:55 05/17/18 03:50 White Blood Count 17.9 K/UL (4.8-10.8) H 17.2 K/UL (4.8-10.8) H Red Blood Count 4.34 M/UL (4.70-6.10) L 3.86 M/UL (4.70-6.10) L Hemoglobin 12.6 G/DL (14.2-18.0) L 11.4 G/DL (14.2-18.0) L Hematocrit 39.6 % (42.0-52.0) L 35.0 % (42.0-52.0) L Mean Corpuscular Volume 91 FL (80-99) 91 FL (80-99) Mean Corpuscular Hemoglobin 29.1 PG (27.0-31.0) 29.6 PG (27.0-31.0) Mean Corpuscular Hemoglobin Concent 31.9 G/DL (32.0-36.0) L 32.7 G/DL (32.0-36.0) Red Cell Distribution Width 12.5 % (11.6-14.8) 13.0 % (11.6-14.8) Platelet Count 239 K/UL (150-450) 261 K/UL (150-450) Mean Platelet Volume 5.8 FL (6.5-10.1) L 5.4 FL (6.5-10.1) L Neutrophils (%) (Auto) 82.8 % (45.0-75.0) H 80.5 % (45.0-75.0) H Lymphocytes (%) (Auto) 9.2 % (20.0-45.0) L 10.0 % (20.0-45.0) L Monocytes (%) (Auto) 6.1 % (1.0-10.0) 7.2 % (1.0-10.0) Eosinophils (%) (Auto) 1.4 % (0.0-3.0) 1.8 % (0.0-3.0) Basophils (%) (Auto) 0.5 % (0.0-2.0) 0.4 % (0.0-2.0) Sodium Level 142 MMOL/L (136-145) 141 MMOL/L (136-145) Potassium Level 3.7 MMOL/L (3.5-5.1) 3.6 MMOL/L (3.5-5.1) Chloride Level 111 MMOL/L (98-107) H 110 MMOL/L (98-107) H Carbon Dioxide Level 22 MMOL/L (21-32) 24 MMOL/L (21-32) Anion Gap 9 mmol/L (5-15) 7 mmol/L (5-15) Blood Urea Nitrogen 18 mg/dL (7-18) 15 mg/dL (7-18) Creatinine 0.7 MG/DL (0.55-1.30) 0.6 MG/DL (0.55-1.30) Estimat Glomerular Filtration Rate > 60 mL/min (>60) > 60 mL/min (>60) Glucose Level 132 MG/DL (74-106) H 97 MG/DL (74-106) Calcium Level 8.3 MG/DL (8.5-10.1) L 8.0 MG/DL (8.5-10.1) L Total Bilirubin 0.5 MG/DL (0.2-1.0) Aspartate Amino Transf (AST/SGOT) 57 U/L (15-37) H Alanine Aminotransferase (ALT/SGPT) 21 U/L (12-78) Alkaline Phosphatase 130 U/L (46-116) H Total Protein 6.6 G/DL (6.4-8.2) Albumin 1.3 G/DL (3.4-5.0) L Globulin 5.3 g/dL Albumin/Globulin Ratio 0.2 (1.0-2.7) L Digoxin Level 1.0 NG/ML (0.5-2.0) Minerva Montesinos MD May 17, 2018 10:55
[2018-05-17] MEDS ORDERED: Miralax 17gm pkt ORAL SCH (11:00)
[2018-05-17] MEDS ORDERED: LORazepam Inj 2mg/ml 1ml IV PRN (12:35)
[2018-05-17] MEDS ORDERED: Morphine Sulfate 2mg/ml Inj IVP PRN (12:35)
--- NOTE | 2018-05-17 12:58 | Internal Med Progress Note ---
Subjective Date of Service: May 17, 2018 Physician Name Jackson,Daniel Attending Physician Pedro Caban MD Current Medications Medications (Trade) Dose Ordered Sig/Erlin Route PRN Reason Start Time Stop Time Status Last Admin Dose Admin Acetaminophen (Tylenol) 650 mg Q4H PRN ORAL Mild Pain/Temp > 100.5 05/17/18 12:35 06/11/18 12:34 Albuterol/ Ipratropium (Albuterol/ Ipratropium) 3 ml Q4H PRN HHN Shortness of Breath 05/17/18 13:00 05/18/18 08:59 Amiodarone HCl (Cordarone) 400 mg EVERY 12 HOURS ORAL 05/17/18 21:00 06/15/18 20:59 Apixaban (Eliquis) 2.5 mg Q12HR ORAL 05/17/18 21:00 06/11/18 20:59 Barium Sulfate (Readi-Cat 2) 450 ml NOW PRN ORAL Radiology Procedure 05/18/18 12:15 05/18/18 21:00 Cefepime HCl 1 gm/ Dextrose 55 ml @ 110 mls/hr EVERY 12 HOURS IVPB 05/17/18 21:00 05/19/18 20:59 Digoxin (Lanoxin) 0.125 mg DAILY ORAL 05/18/18 09:00 06/12/18 08:59 Diltiazem HCl 125 mg/Dextrose 125 ml @ 10 mls/hr [id number] IVPB 05/17/18 12:30 05/17/18 16:29 Gabapentin (Neurontin) 100 mg THREE TIMES A DAY ORAL 05/17/18 13:00 06/11/18 17:59 Lorazepam (Ativan 2mg/ml 1ml) 1 mg Q4H PRN IV For Anxiety 05/17/18 12:35 05/19/18 12:34 Metoprolol Tartrate (Lopressor) 50 mg Q12HR ORAL 05/17/18 21:00 06/11/18 20:59 Morphine Sulfate (Morphine Sulfate) 2 mg Q4H PRN IVP For Pain 05/17/18 12:35 05/19/18 12:34 Polyethylene Glycol (Miralax) 17 gm DAILY ORAL 05/18/18 09:00 06/16/18 10:59 Potassium Chloride 10 meq/ Dextrose/Sodium Chloride 1,005 ml @ 75 mls/hr [id number] IV 05/17/18 12:30 06/12/18 14:59 Quetiapine Fumarate (SEROquel) 100 mg BEDTIME ORAL 05/17/18 21:00 06/11/18 20:59 Sodium Hypochlorite (Dakin's Quarter Strength) 1 applic DAILY TOPIC 05/18/18 09:00 06/12/18 14:18 Vancomycin HCl (Vanco rx to dose) 1 ea DAILY PRN MISC Per rx protocol 05/18/18 09:00 06/11/18 14:59 Vancomycin/Sodium Chloride 250 ml @ 166.667 mls/hr Q8H IVPB 05/17/18 13:00 05/19/18 12:59 Allergies: Coded Allergies: MILK (Verified Allergy, Unknown, 02/02/18) ROS Limited/Unobtainable: No Constitutional: Reports: no symptoms HEENT: Reports: no symptoms Cardiovascular: Reports: no symptoms Respiratory: Reports: no symptoms Gastrointestinal/Abdominal: Reports: no symptoms Genitourinary: Reports: no symptoms 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: Reports: no symptoms Subjective 68 YO A M admitted with altered mental status. Now sepsis. Cover for Int Med- Dr Caban. Transferred to ICU for atrial fibrillation with rapid rate. On cardizem drip Objective Last Vital Signs Date Time Temp Pulse Resp B/P (MAP) Pulse Ox O2 Delivery O2 Flow Rate FiO2 05/17/18 11:30 73 20 114/68 (83) 100 05/17/18 08:00 Room Air 05/17/18 08:00 98.8 05/17/18 06:50 21 Laboratory Tests Test 05/17/18 03:50 White Blood Count 17.2 K/UL (4.8-10.8) H Red Blood Count 3.86 M/UL (4.70-6.10) L Hemoglobin 11.4 G/DL (14.2-18.0) L Hematocrit 35.0 % (42.0-52.0) L Mean Corpuscular Volume 91 FL (80-99) Mean Corpuscular Hemoglobin 29.6 PG (27.0-31.0) Mean Corpuscular Hemoglobin Concent 32.7 G/DL (32.0-36.0) Red Cell Distribution Width 13.0 % (11.6-14.8) Platelet Count 261 K/UL (150-450) Mean Platelet Volume 5.4 FL (6.5-10.1) L Neutrophils (%) (Auto) 80.5 % (45.0-75.0) H Lymphocytes (%) (Auto) 10.0 % (20.0-45.0) L Monocytes (%) (Auto) 7.2 % (1.0-10.0) Eosinophils (%) (Auto) 1.8 % (0.0-3.0) Basophils (%) (Auto) 0.4 % (0.0-2.0) Sodium Level 141 MMOL/L (136-145) Potassium Level 3.6 MMOL/L (3.5-5.1) Chloride Level 110 MMOL/L (98-107) H Carbon Dioxide Level 24 MMOL/L (21-32) Anion Gap 7 mmol/L (5-15) Blood Urea Nitrogen 15 mg/dL (7-18) Creatinine 0.6 MG/DL (0.55-1.30) Estimat Glomerular Filtration Rate > 60 mL/min (>60) Glucose Level 97 MG/DL (74-106) Calcium Level 8.0 MG/DL (8.5-10.1) L Digoxin Level 1.0 NG/ML (0.5-2.0) Intake and Output 05/16/18 05/17/18 18:59 06:59 Intake Total 460 ml 1367.667 ml Output Total 0 ml 680 ml Balance 460 ml 687.667 ml Intake Oral 300 ml IV Total 160 ml 1367.667 ml Output Urine Total 0 ml 680 ml Objective General Appearance: alert, thin, agitated EENT: PERRL/EOMI, normal ENT inspection Neck: non-tender, normal alignment, supple, normal inspection Cardiovascular: normal peripheral pulses, normal rate, no gallop/murmur, no JVD , irregularly irregular Respiratory/Chest: chest wall non-tender, lungs clear, normal breath sounds, no respiratory distress, no accessory muscle use Abdomen: normal bowel sounds, non tender, soft, no organomegaly, no mass Extremities: normal range of motion, non-tender Neurologic: painter ordnance II-XII grossly normal, no motor/sensory deficits Skin: normal pigmentation, warm/dry, other - multiple decubitus ulcers bilat lower ext Assessment/Plan Problem List: (1) CHF (congestive heart failure) Assessment & Plan: See cardiology note (2) Atrial fibrillation with rapid ventricular response Assessment & Plan: On diltiazem drip. Continue metoprolol and digoxin per cardiology. Continue eliquis (3) Hypertension Assessment & Plan: continue metoprolol (4) CAD (coronary artery disease) (5) Bipolar disorder (6) Fever (7) Decubitus skin ulcer Assessment & Plan: Will require bilateral above the knee amputation-see surgery consult. (8) Sepsis Assessment & Plan: Continue antibiotic per ID (9) UTI (urinary tract infection) Assessment & Plan: Mixed culture-continue vanco and cefepime per ID (10) Leukocytosis Status: not improved Daniel Jackson MD May 17, 2018 12:58
[2018-05-17] MEDS: Potassium Chloride 10 MEQ in D5 1/2NS 1,000 ML IV SCH (12:59)
[2018-05-17] MEDS ORDERED: Albuterol/Ipratropium 3ml neb HHN PRN (13:00)
--- NOTE | 2018-05-17 13:55 | General Surgery Progress Note ---
General Surgery-Progress Note Subjective Additional Comments in ICU. awake and responsive but not oriented leukocytosis. spoke with family today Objective Last 24 Hour Vital Signs Date Time Temp Pulse Resp B/P (MAP) Pulse Ox O2 Delivery O2 Flow Rate FiO2 05/17/18 13:00 80 19 131/65 (87) 05/17/18 12:00 Room Air 05/17/18 12:00 97.6 79 20 119/64 (82) 89 05/17/18 12:00 70 05/17/18 11:30 73 20 114/68 (83) 100 05/17/18 11:00 75 21 108/57 (74) 100 05/17/18 10:30 88 21 111/71 (84) 99 05/17/18 10:00 97 20 130/73 (92) 100 05/17/18 09:39 105 05/17/18 09:39 101 119/78 05/17/18 09:30 106 20 119/78 (92) 100 05/17/18 09:00 93 22 125/71 (89) 98 05/17/18 08:30 100 22 120/70 (87) 98 05/17/18 08:00 Room Air 05/17/18 08:00 115 05/17/18 08:00 98.8 98 22 125/70 (88) 98 05/17/18 07:30 98 22 127/67 (87) 98 05/17/18 07:00 103 24 122/87 (99) 100 05/17/18 06:50 100 22 Room Air 21 05/17/18 06:00 92 23 137/86 (103) 100 05/17/18 05:30 92 23 137/75 (95) 100 05/17/18 05:24 91 125/87 05/17/18 05:00 91 22 123/87 (99) 100 05/17/18 04:30 91 22 133/74 (93) 100 05/17/18 04:00 Room Air 05/17/18 04:00 95 05/17/18 04:00 97.8 100 21 136/74 (94) 69 05/17/18 03:48 105 19 136/75 (95) 97 05/17/18 03:30 98 18 140/40 (73) 95 05/17/18 03:00 99 20 125/45 (71) 99 05/17/18 02:30 103 21 146/40 (75) 05/17/18 02:00 97 26 142/80 (100) 87 05/17/18 01:30 87 17 132/71 (91) 05/17/18 01:00 93 25 127/60 (82) 100 05/17/18 00:30 78 20 117/77 (90) 100 05/17/18 00:00 97.5 90 24 121/48 (72) 100 05/17/18 00:00 90 05/17/18 00:00 Room Air 05/16/18 23:30 70 24 144/84 (104) 100 05/16/18 23:00 79 20 111/62 (78) 100 05/16/18 22:30 83 22 109/55 (73) 100 05/16/18 22:00 90 21 121/69 (86) 100 05/16/18 21:47 108 118/56 05/16/18 21:30 113 22 118/56 (76) 100 05/16/18 21:00 115 22 129/61 (83) 100 05/16/18 20:30 117 24 112/63 (79) 100 05/16/18 20:00 Room Air 05/16/18 20:00 97.6 125 24 120/60 (80) 100 05/16/18 20:00 125 05/16/18 19:40 143 18 Room Air 21 05/16/18 19:30 131 25 126/70 (88) 100 05/16/18 19:00 122 22 131/70 (90) 100 05/16/18 18:59 114 20 117/63 (81) 100 05/16/18 18:30 96 22 121/71 (88) 100 05/16/18 17:59 79 21 90/69 (76) 100 05/16/18 17:30 97 22 113/62 (79) 100 05/16/18 17:00 138 25 112/65 (81) 100 05/16/18 17:00 138 120/65 05/16/18 16:00 138 05/16/18 16:00 98.6 138 25 120/79 (93) 96 05/16/18 14:38 97.7 I&O Intake and Output 05/16/18 05/17/18 19:00 07:00 Intake Total 545 ml 1282.667 ml Output Total 0 ml 830 ml Balance 545 ml 452.667 ml Intake Oral 300 ml IV Total 245 ml 1282.667 ml Output Urine Total 0 ml 830 ml Dressing: saturated Wound: other Drains: other Cardiovascular: RSR Respiratory: clear Abdomen: soft, flat, non-tender, present bowel sounds Extremities: tenderness, cyanosis, other Laboratory Tests Test 05/17/18 03:50 White Blood Count 17.2 K/UL (4.8-10.8) H Red Blood Count 3.86 M/UL (4.70-6.10) L Hemoglobin 11.4 G/DL (14.2-18.0) L Hematocrit 35.0 % (42.0-52.0) L Mean Corpuscular Volume 91 FL (80-99) Mean Corpuscular Hemoglobin 29.6 PG (27.0-31.0) Mean Corpuscular Hemoglobin Concent 32.7 G/DL (32.0-36.0) Red Cell Distribution Width 13.0 % (11.6-14.8) Platelet Count 261 K/UL (150-450) Mean Platelet Volume 5.4 FL (6.5-10.1) L Neutrophils (%) (Auto) 80.5 % (45.0-75.0) H Lymphocytes (%) (Auto) 10.0 % (20.0-45.0) L Monocytes (%) (Auto) 7.2 % (1.0-10.0) Eosinophils (%) (Auto) 1.8 % (0.0-3.0) Basophils (%) (Auto) 0.4 % (0.0-2.0) Sodium Level 141 MMOL/L (136-145) Potassium Level 3.6 MMOL/L (3.5-5.1) Chloride Level 110 MMOL/L (98-107) H Carbon Dioxide Level 24 MMOL/L (21-32) Anion Gap 7 mmol/L (5-15) Blood Urea Nitrogen 15 mg/dL (7-18) Creatinine 0.6 MG/DL (0.55-1.30) Estimat Glomerular Filtration Rate > 60 mL/min (>60) Glucose Level 97 MG/DL (74-106) Calcium Level 8.0 MG/DL (8.5-10.1) L Digoxin Level 1.0 NG/ML (0.5-2.0) Plan Problems: (1) Sepsis Assessment & Plan: etiology of leukocytosis unknown will need further work up IV abx appreciate ID input trend labs Discussed findings with Vascular and Podiatry Agree that lower extremities are not salvageable. Would recommend bilateral AKA Need to contact family and discuss. Patient without capacity to make decision. Need to work on consent Needs POA or designated Next of Kin as proposed surgery is very invasive Spoke with two daughters today. Sister is [place] of the [place]. Very long discussion about medical condition and care plan discussed clinical findings discussed radiological findings. discussed medical condition discussed multi-disciplinary team recommendations for AKA bilaterally daughters very reasonable and aware of his condition. eldest daughter states that she had a discussion with him 1 month about regarding amputation as it had been recommended prior. states that father had lower extremities amputated for similar reasons at similar age. family is in consideration of above. will discuss and call back with answer thank you (2) Decubitus skin ulcer Assessment & Plan: Patient well known to me. Has had chronic wounds on sacrum, buttock, and lower extremities. Prior had maggots in lower extremities treated with Dakins and wound care which are since resolved. Multiple pressure ulcers. Patient unable to participate in exam and care plan. Now presents with multiple ulcerations to both lower extremities. Wounds are irregular malodorous. Both lower ext. cool to touch. Toes necrotic with ulcerations 1st, 2nd and 3rd metatarsals ulcerated. Ulcers dorsal aspects of toes L foot.Web spaces of toes are dry . Full thickness pressure injury to sacrum with 60% slough,(+) epibole.Wound measures (L)7cm x (W)7.5cm x (D)2.5cm. Periwound dark .Wound malodorous. Right buttock and ischial tuberosity which are large and with eschar cap unstageable full thickness. both heels have DTI with blood blisters noted. Wounds have significantly deteriorated since last admission with new wounds noted on lower extremities and buttock. Areas of prior maggot infection are healing but still with wounds. Refer to wound care photos for details. Tx.Plan: Cleanse both lower ext wounds with NS . Skin protectant .Dakin's 0.25% moist gauze, Cover with ABD and wrap with soft chavez daily an dprn Apply Light dusting of Temple Starch or baby powder in web spaces of toes on feet Clean sacral decubitus and buttock ulcer with NS, apply skin protectant / honey gel, apply foam dressing daily and prn Air Fluidized mattress on bed (P200). Encourage and assist with repositioning at least every 2hours or as tolerated. Off-load heels with pillow. would appreciate Podiatry and Vascular consult as I dont anticipate lower extremity will be salvageable at this time. Recommend bilateral AKA. patient does not seem to have capacity. psych eval Duplex studies Goyo Osuna May 17, 2018 13:55
--- NOTE | 2018-05-17 14:04 | General Progress Note ---
Assessment/Plan Problem List: (1) Bipolar disorder ICD Codes: F31.9 - Bipolar disorder, unspecified SNOMED: [id number] Status: unchanged Assessment/Plan dc abilify start seroquel the pt lacks capacity to make decisions Subjective 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: Reports: anxiety, depressed, emotional problems Allergies: Coded Allergies: MILK (Verified Allergy, Unknown, 02/02/18) Objective Last 24 Hour Vital Signs Date Time Temp Pulse Resp B/P (MAP) Pulse Ox O2 Delivery O2 Flow Rate FiO2 05/17/18 13:00 80 19 131/65 (87) 05/17/18 12:00 Room Air 05/17/18 12:00 97.6 79 20 119/64 (82) 89 05/17/18 12:00 70 05/17/18 11:30 73 20 114/68 (83) 100 05/17/18 11:00 75 21 108/57 (74) 100 05/17/18 10:30 88 21 111/71 (84) 99 05/17/18 10:00 97 20 130/73 (92) 100 05/17/18 09:39 105 05/17/18 09:39 101 119/78 05/17/18 09:30 106 20 119/78 (92) 100 05/17/18 09:00 93 22 125/71 (89) 98 05/17/18 08:30 100 22 120/70 (87) 98 05/17/18 08:00 Room Air 05/17/18 08:00 115 05/17/18 08:00 98.8 98 22 125/70 (88) 98 05/17/18 07:30 98 22 127/67 (87) 98 05/17/18 07:00 103 24 122/87 (99) 100 05/17/18 06:50 100 22 Room Air 21 05/17/18 06:00 92 23 137/86 (103) 100 05/17/18 05:30 92 23 137/75 (95) 100 05/17/18 05:24 91 125/87 05/17/18 05:00 91 22 123/87 (99) 100 05/17/18 04:30 91 22 133/74 (93) 100 05/17/18 04:00 Room Air 05/17/18 04:00 95 05/17/18 04:00 97.8 100 21 136/74 (94) 69 05/17/18 03:48 105 19 136/75 (95) 97 05/17/18 03:30 98 18 140/40 (73) 95 05/17/18 03:00 99 20 125/45 (71) 99 05/17/18 02:30 103 21 146/40 (75) 05/17/18 02:00 97 26 142/80 (100) 87 05/17/18 01:30 87 17 132/71 (91) 05/17/18 01:00 93 25 127/60 (82) 100 05/17/18 00:30 78 20 117/77 (90) 100 05/17/18 00:00 97.5 90 24 121/48 (72) 100 05/17/18 00:00 90 05/17/18 00:00 Room Air 05/16/18 23:30 70 24 144/84 (104) 100 05/16/18 23:00 79 20 111/62 (78) 100 05/16/18 22:30 83 22 109/55 (73) 100 05/16/18 22:00 90 21 121/69 (86) 100 05/16/18 21:47 108 118/56 05/16/18 21:30 113 22 118/56 (76) 100 05/16/18 21:00 115 22 129/61 (83) 100 05/16/18 20:30 117 24 112/63 (79) 100 05/16/18 20:00 Room Air 05/16/18 20:00 97.6 125 24 120/60 (80) 100 05/16/18 20:00 125 05/16/18 19:40 143 18 Room Air 21 05/16/18 19:30 131 25 126/70 (88) 100 05/16/18 19:00 122 22 131/70 (90) 100 05/16/18 18:59 114 20 117/63 (81) 100 05/16/18 18:30 96 22 121/71 (88) 100 05/16/18 17:59 79 21 90/69 (76) 100 05/16/18 17:30 97 22 113/62 (79) 100 05/16/18 17:00 138 25 112/65 (81) 100 05/16/18 17:00 138 120/65 05/16/18 16:00 138 05/16/18 16:00 98.6 138 25 120/79 (93) 96 05/16/18 14:38 97.7 Intake and Output 05/16/18 05/17/18 19:00 07:00 Intake Total 545 ml 1282.667 ml Output Total 0 ml 830 ml Balance 545 ml 452.667 ml Intake Oral 300 ml IV Total 245 ml 1282.667 ml Output Urine Total 0 ml 830 ml Laboratory Tests 05/17/18 03:50: White Blood Count 17.2H, Red Blood Count 3.86L, Hemoglobin 11.4L, Hematocrit 35.0L, Mean Corpuscular Volume 91, Mean Corpuscular Hemoglobin 29.6, Mean Corpuscular Hemoglobin Concent 32.7, Red Cell Distribution Width 13.0, Platelet Count 261, Mean Platelet Volume 5.4L, Neutrophils (%) (Auto) 80.5H, Lymphocytes (%) (Auto) 10.0L, Monocytes (%) (Auto) 7.2, Eosinophils (%) (Auto) 1.8, Basophils (%) (Auto) 0.4, Sodium Level 141, Potassium Level 3.6, Chloride Level 110H, Carbon Dioxide Level 24, Anion Gap 7, Blood Urea Nitrogen 15, Creatinine 0.6, Estimat Glomerular Filtration Rate > 60, Glucose Level 97, Calcium Level 8.0L, Digoxin Level 1.0 Height (Feet): 6 Height (Inches): 5.00 Weight (Pounds): 200 General Appearance: alert, confused, agitated Julissa Still MD May 17, 2018 14:04
[2018-05-17] MEDS: Vancomycin 750mg/NS 250ml 250 ML IVPB SCH ×2 (14:30→20:30)
--- NOTE | 2018-05-17 17:43 | Cardiac Electrophysiology PN ---
Assessment/Plan Assessment/Plan 1. Paroxysmal Atrial fibrillation with rapid ventricular response. Continue digoxin 0.125 mg daily, metoprolol 50 mg bid and Amiodarone 400 bid Cardizem drip DCed. Continue Eliquis 2.5 mg b.i.d. Dig level 1.9. Decrease Amiodarone to 400 mg daily 2. Borderline hypotension. Resolved, off midodrine. 3. Fever and sepsis, on antibiotic with vancomycin and cefepime. 4. History of dementia and severe psychosis, on Seroquel. 5. Severe bilateral leg ulcers and sacral decubitus. FU Dr Osuna Has had chronic wounds on sacrum, buttock, and lower extremities. Prior had maggots in lower extremities treated with Dakadriane GERMAN RN Subjective Subjective Cardizem drip DCed this morning. Rate controlled now. Objective Last 24 Hour Vital Signs Date Time Temp Pulse Resp B/P (MAP) Pulse Ox O2 Delivery O2 Flow Rate FiO2 05/17/18 16:00 Room Air 05/17/18 16:00 98 05/17/18 15:00 86 19 121/63 (82) 100 05/17/18 14:00 101 19 113/65 (81) 100 05/17/18 13:00 80 19 131/65 (87) 100 05/17/18 12:30 98 121/63 05/17/18 12:00 Room Air 05/17/18 12:00 97.6 79 20 119/64 (82) 89 05/17/18 12:00 70 05/17/18 11:30 73 20 114/68 (83) 100 05/17/18 11:00 75 21 108/57 (74) 100 05/17/18 10:30 88 21 111/71 (84) 99 05/17/18 10:00 97 20 130/73 (92) 100 05/17/18 09:39 105 05/17/18 09:39 101 119/78 05/17/18 09:30 106 20 119/78 (92) 100 05/17/18 09:00 93 22 125/71 (89) 98 05/17/18 08:30 100 22 120/70 (87) 98 05/17/18 08:00 Room Air 05/17/18 08:00 115 05/17/18 08:00 98.8 98 22 125/70 (88) 98 05/17/18 07:30 98 22 127/67 (87) 98 05/17/18 07:00 103 24 122/87 (99) 100 05/17/18 06:50 100 22 Room Air 21 05/17/18 06:00 92 23 137/86 (103) 100 05/17/18 05:30 92 23 137/75 (95) 100 05/17/18 05:24 91 125/87 05/17/18 05:00 91 22 123/87 (99) 100 05/17/18 04:30 91 22 133/74 (93) 100 05/17/18 04:00 Room Air 05/17/18 04:00 95 05/17/18 04:00 97.8 100 21 136/74 (94) 69 05/17/18 03:48 105 19 136/75 (95) 97 05/17/18 03:30 98 18 140/40 (73) 95 05/17/18 03:00 99 20 125/45 (71) 99 05/17/18 02:30 103 21 146/40 (75) 05/17/18 02:00 97 26 142/80 (100) 87 05/17/18 01:30 87 17 132/71 (91) 05/17/18 01:00 93 25 127/60 (82) 100 05/17/18 00:30 78 20 117/77 (90) 100 05/17/18 00:00 97.5 90 24 121/48 (72) 100 05/17/18 00:00 90 05/17/18 00:00 Room Air 05/16/18 23:30 70 24 144/84 (104) 100 05/16/18 23:00 79 20 111/62 (78) 100 05/16/18 22:30 83 22 109/55 (73) 100 05/16/18 22:00 90 21 121/69 (86) 100 05/16/18 21:47 108 118/56 05/16/18 21:30 113 22 118/56 (76) 100 05/16/18 21:00 115 22 129/61 (83) 100 05/16/18 20:30 117 24 112/63 (79) 100 05/16/18 20:00 Room Air 05/16/18 20:00 97.6 125 24 120/60 (80) 100 05/16/18 20:00 125 05/16/18 19:40 143 18 Room Air 21 05/16/18 19:30 131 25 126/70 (88) 100 05/16/18 19:00 122 22 131/70 (90) 100 05/16/18 18:59 114 20 117/63 (81) 100 05/16/18 18:30 96 22 121/71 (88) 100 05/16/18 17:59 79 21 90/69 (76) 100 Intake and Output 05/16/18 05/17/18 19:00 07:00 Intake Total 545 ml 1282.667 ml Output Total 0 ml 830 ml Balance 545 ml 452.667 ml Intake Oral 300 ml IV Total 245 ml 1282.667 ml Output Urine Total 0 ml 830 ml Laboratory Tests Test 05/17/18 03:50 White Blood Count 17.2 K/UL (4.8-10.8) H Red Blood Count 3.86 M/UL (4.70-6.10) L Hemoglobin 11.4 G/DL (14.2-18.0) L Hematocrit 35.0 % (42.0-52.0) L Mean Corpuscular Volume 91 FL (80-99) Mean Corpuscular Hemoglobin 29.6 PG (27.0-31.0) Mean Corpuscular Hemoglobin Concent 32.7 G/DL (32.0-36.0) Red Cell Distribution Width 13.0 % (11.6-14.8) Platelet Count 261 K/UL (150-450) Mean Platelet Volume 5.4 FL (6.5-10.1) L Neutrophils (%) (Auto) 80.5 % (45.0-75.0) H Lymphocytes (%) (Auto) 10.0 % (20.0-45.0) L Monocytes (%) (Auto) 7.2 % (1.0-10.0) Eosinophils (%) (Auto) 1.8 % (0.0-3.0) Basophils (%) (Auto) 0.4 % (0.0-2.0) Sodium Level 141 MMOL/L (136-145) Potassium Level 3.6 MMOL/L (3.5-5.1) Chloride Level 110 MMOL/L (98-107) H Carbon Dioxide Level 24 MMOL/L (21-32) Anion Gap 7 mmol/L (5-15) Blood Urea Nitrogen 15 mg/dL (7-18) Creatinine 0.6 MG/DL (0.55-1.30) Estimat Glomerular Filtration Rate > 60 mL/min (>60) Glucose Level 97 MG/DL (74-106) Calcium Level 8.0 MG/DL (8.5-10.1) L Digoxin Level 1.0 NG/ML (0.5-2.0) Objective HEAD AND NECK: Mild JVD. LUNGS: Coarse rhonchi. CARDIOVASCULAR: Irregular tachy S1 and S2 with no murmur. ABDOMEN: Soft. EXTREMITIES: Bilateral leg ulcers Amandeep Arora MD May 17, 2018 17:43
--- NOTE | 2018-05-17 17:45 | Infectious Diseases Prog Note ---
Assessment/Plan Assessment/Plan 68 yo male who was transferred from [place] where he initially presented for AMS from [facility]– [place]. Sepsis 2/2 to bacteremia Likely source is skin ulcer Blood Cx 05/12/18 at [place] [facility] -Bcx 05/12 and 24 (here) NTD 2d echo: no vegetations 05/15 CXR: Right midlung nodule. Absence of this finding on previous study makes this more likely to be a focus of inflammation, but rapidly growing neoplasm not excludable. Left basilar hazy opacity. Most likely a moderate to large pleural effusion.Component of infiltrate or atelectasis is also possible 05/12 CXR: Asymmetric ill-defined confluent groundglass opacity within the left mid/inferior lung, of uncertain etiology. Probable PNA Febrile to 101 ([employer])- here non so far Leukocytosis ,improving B/l LE nectrotic ulcer and toes- acute on chronci, ischemic w/ likely superinfection- likely non-salvageable per surgery Afib w/ RVR AMS Likely secondary to sepsis Cerebrovascular accident. Hypertension. Sacral decubitus ulcers. Bipolar disorder. Coronary artery disease. Plan - Continue Cefepime #6 and Vancomycin #6 pending Cx - f/u Blood Cx - Wound care - Monitor CBC and Temps -f/u sp cx, u/a w/ reflex -Cdiff if diarrhea -Obtain records from [place] for BCx results -f/u CT chest/abd/p -Sx and podiatry f/u: recommend b/l AKA Thank you for this consult. We will continue to follow the patient during this hospitalization. Subjective Allergies: Coded Allergies: MILK (Verified Allergy, Unknown, 02/02/18) Subjective afebrile wbc improving had Afib with RVR and transferred to ICU Objective Vital Signs Last 24 Hour Vital Signs Date Time Temp Pulse Resp B/P (MAP) Pulse Ox O2 Delivery O2 Flow Rate FiO2 05/17/18 16:00 Room Air 05/17/18 16:00 98 05/17/18 15:00 86 19 121/63 (82) 100 05/17/18 14:00 101 19 113/65 (81) 100 05/17/18 13:00 80 19 131/65 (87) 100 05/17/18 12:30 98 121/63 05/17/18 12:00 Room Air 05/17/18 12:00 97.6 79 20 119/64 (82) 89 05/17/18 12:00 70 05/17/18 11:30 73 20 114/68 (83) 100 05/17/18 11:00 75 21 108/57 (74) 100 05/17/18 10:30 88 21 111/71 (84) 99 05/17/18 10:00 97 20 130/73 (92) 100 05/17/18 09:39 105 05/17/18 09:39 101 119/78 05/17/18 09:30 106 20 119/78 (92) 100 05/17/18 09:00 93 22 125/71 (89) 98 05/17/18 08:30 100 22 120/70 (87) 98 05/17/18 08:00 Room Air 05/17/18 08:00 115 05/17/18 08:00 98.8 98 22 125/70 (88) 98 05/17/18 07:30 98 22 127/67 (87) 98 05/17/18 07:00 103 24 122/87 (99) 100 05/17/18 06:50 100 22 Room Air 21 05/17/18 06:00 92 23 137/86 (103) 100 05/17/18 05:30 92 23 137/75 (95) 100 05/17/18 05:24 91 125/87 05/17/18 05:00 91 22 123/87 (99) 100 05/17/18 04:30 91 22 133/74 (93) 100 05/17/18 04:00 Room Air 05/17/18 04:00 95 05/17/18 04:00 97.8 100 21 136/74 (94) 69 05/17/18 03:48 105 19 136/75 (95) 97 05/17/18 03:30 98 18 140/40 (73) 95 05/17/18 03:00 99 20 125/45 (71) 99 05/17/18 02:30 103 21 146/40 (75) 05/17/18 02:00 97 26 142/80 (100) 87 05/17/18 01:30 87 17 132/71 (91) 05/17/18 01:00 93 25 127/60 (82) 100 05/17/18 00:30 78 20 117/77 (90) 100 05/17/18 00:00 97.5 90 24 121/48 (72) 100 05/17/18 00:00 90 05/17/18 00:00 Room Air 05/16/18 23:30 70 24 144/84 (104) 100 05/16/18 23:00 79 20 111/62 (78) 100 05/16/18 22:30 83 22 109/55 (73) 100 05/16/18 22:00 90 21 121/69 (86) 100 05/16/18 21:47 108 118/56 05/16/18 21:30 113 22 118/56 (76) 100 05/16/18 21:00 115 22 129/61 (83) 100 05/16/18 20:30 117 24 112/63 (79) 100 05/16/18 20:00 Room Air 05/16/18 20:00 97.6 125 24 120/60 (80) 100 05/16/18 20:00 125 05/16/18 19:40 143 18 Room Air 21 05/16/18 19:30 131 25 126/70 (88) 100 05/16/18 19:00 122 22 131/70 (90) 100 05/16/18 18:59 114 20 117/63 (81) 100 05/16/18 18:30 96 22 121/71 (88) 100 05/16/18 17:59 79 21 90/69 (76) 100 Height (Feet): 6 Height (Inches): 5.00 Weight (Pounds): 200 Objective Gen: NAD. Mumbling HEENT: NCAT, MMM, EOMI, No Oral lesion, no scleral icterus NECK: full range of motion, supple, no meningismus, No LAD, No JVD LUNGS: CTAB, No W/C, No Accessory muscle use CARDS: RRR, S1, S2, No M/R/G ABD: Soft, NT, ND, No R/G, + BS, No HSM, No Masses : Deferred Ext: C/C/E, Pulses 2+ B/L (DP, Rad) NEURO: A/O x 0, Strength and Sensation Grossly intact PSYCH: mood/affect normal SKIN: Left foot wound. No purulent drainage, Feet now bandaged Laboratory Tests Test 05/17/18 03:50 White Blood Count 17.2 K/UL (4.8-10.8) H Red Blood Count 3.86 M/UL (4.70-6.10) L Hemoglobin 11.4 G/DL (14.2-18.0) L Hematocrit 35.0 % (42.0-52.0) L Mean Corpuscular Volume 91 FL (80-99) Mean Corpuscular Hemoglobin 29.6 PG (27.0-31.0) Mean Corpuscular Hemoglobin Concent 32.7 G/DL (32.0-36.0) Red Cell Distribution Width 13.0 % (11.6-14.8) Platelet Count 261 K/UL (150-450) Mean Platelet Volume 5.4 FL (6.5-10.1) L Neutrophils (%) (Auto) 80.5 % (45.0-75.0) H Lymphocytes (%) (Auto) 10.0 % (20.0-45.0) L Monocytes (%) (Auto) 7.2 % (1.0-10.0) Eosinophils (%) (Auto) 1.8 % (0.0-3.0) Basophils (%) (Auto) 0.4 % (0.0-2.0) Sodium Level 141 MMOL/L (136-145) Potassium Level 3.6 MMOL/L (3.5-5.1) Chloride Level 110 MMOL/L (98-107) H Carbon Dioxide Level 24 MMOL/L (21-32) Anion Gap 7 mmol/L (5-15) Blood Urea Nitrogen 15 mg/dL (7-18) Creatinine 0.6 MG/DL (0.55-1.30) Estimat Glomerular Filtration Rate > 60 mL/min (>60) Glucose Level 97 MG/DL (74-106) Calcium Level 8.0 MG/DL (8.5-10.1) L Digoxin Level 1.0 NG/ML (0.5-2.0) Current Medications Medications (Trade) Dose Ordered Sig/Erlin Route PRN Reason Start Time Stop Time Status Last Admin Dose Admin Acetaminophen (Tylenol) 650 mg Q4H PRN ORAL Mild Pain/Temp > 100.5 05/17/18 12:35 06/11/18 12:34 Albuterol/ Ipratropium (Albuterol/ Ipratropium) 3 ml Q4H PRN HHN Shortness of Breath 05/17/18 13:00 05/18/18 08:59 Amiodarone HCl (Cordarone) 400 mg EVERY 12 HOURS ORAL 05/17/18 21:00 06/15/18 20:59 Apixaban (Eliquis) 2.5 mg Q12HR ORAL 05/17/18 21:00 06/11/18 20:59 Barium Sulfate (Readi-Cat 2) 450 ml NOW PRN ORAL Radiology Procedure 05/18/18 12:15 05/18/18 21:00 Cefepime HCl 1 gm/ Dextrose 55 ml @ 110 mls/hr EVERY 12 HOURS IVPB 05/17/18 21:00 05/19/18 20:59 Digoxin (Lanoxin) 0.125 mg DAILY ORAL 05/18/18 09:00 06/12/18 08:59 Gabapentin (Neurontin) 100 mg THREE TIMES A DAY ORAL 05/17/18 13:00 06/11/18 17:59 05/17/18 12:59 Lorazepam (Ativan 2mg/ml 1ml) 1 mg Q4H PRN IV For Anxiety 05/17/18 12:35 05/19/18 12:34 05/17/18 15:31 Metoprolol Tartrate (Lopressor) 50 mg Q12HR ORAL 05/17/18 21:00 06/11/18 20:59 Morphine Sulfate (Morphine Sulfate) 2 mg Q4H PRN IVP For Pain 05/17/18 12:35 05/19/18 12:34 Polyethylene Glycol (Miralax) 17 gm DAILY ORAL 05/18/18 09:00 06/16/18 10:59 05/17/18 12:59 Potassium Chloride 10 meq/ Dextrose/Sodium Chloride 1,005 ml @ 75 mls/hr [id number] IV 05/17/18 12:30 06/12/18 14:59 05/17/18 12:59 Quetiapine Fumarate (SEROquel) 100 mg BEDTIME ORAL 05/17/18 21:00 06/11/18 20:59 Sodium Hypochlorite (Dakin's Quarter Strength) 1 applic DAILY TOPIC 05/18/18 09:00 06/12/18 14:18 Vancomycin HCl (Vanco rx to dose) 1 ea DAILY PRN MISC Per rx protocol 05/18/18 09:00 12/23/18 14:59 Vancomycin/Sodium Chloride 250 ml @ 166.667 mls/hr Q8H IVPB 05/17/18 13:00 05/19/18 12:59 05/17/18 14:30 Alma Elkins M.D. May 17, 2018 17:45
[2018-05-17] MEDS ORDERED: Amiodarone 200mg tab ORAL SCH (21:00)
[2018-05-17] MEDS ORDERED: Eliquis 2.5mg tablet ORAL SCH (21:00)
[2018-05-17] MEDS ORDERED: Metoprolol Tartrate 50mg tab ORAL SCH (21:00)
[2018-05-17] MEDS ORDERED: Cefepime HCl 1 GM in D5W 55 ML IVPB SCH (21:00)
[2018-05-18] VITALS (9 sets, daily range): BP systolic 114–168; BP diastolic 61–84
[2018-05-18] MEDS: Potassium Chloride 10 MEQ in D5 1/2NS 1,000 ML IV SCH ×3 (02:03→17:19)
[2018-05-18] MEDS: Vancomycin 750mg/NS 250ml 250 ML IVPB SCH ×3 (04:29→21:25)
[2018-05-18 04:55] LABS: BASOPHILS % (AUTO) 0.6 % (0.0-2.0); EOSINOPHILS % (AUTO) 1.5 % (0.0-3.0); HEMATOCRIT 34.7 % (42.0-52.0); HEMOGLOBIN 11.1 G/DL (14.2-18.0); LYMPHOCYTES % (AUTO) 10.9 % (20.0-45.0); MEAN CORPUSCULAR VOLUME 91 FL (80-99); MONOCYTES % (AUTO) 6.9 % (1.0-10.0); NEUTROPHILS % (AUTO) 80.2 % (45.0-75.0); PLATELET COUNT 264 K/UL (150-450); RED BLOOD COUNT 3.83 M/UL (4.70-6.10); RED CELL DISTRIBUTION WIDTH 12.5 % (11.6-14.8); WHITE BLOOD COUNT 14.4 K/UL (4.8-10.8)
[2018-05-18 05:08] LABS: INR 1.2 (0.9-1.1)
[2018-05-18 05:32] LABS: ALANINE AMINOTRANSFERASE 22 U/L (12-78); ALBUMIN 1.1 G/DL (3.4-5.0); ALBUMIN/GLOBULIN RATIO 0.2 (1.0-2.7); ALKALINE PHOSPHATASE 124 U/L (46-116); ANION GAP 8 mmol/L (5-15); ASPARTATE AMINO TRANSFERASE 42 U/L (15-37); BILIRUBIN,TOTAL 0.6 MG/DL (0.2-1.0); BLOOD UREA NITROGEN 22 mg/dL (7-18); CALCIUM 7.9 MG/DL (8.5-10.1); CARBON DIOXIDE 23 MMOL/L (21-32); CHLORIDE 110 MMOL/L (98-107); CREATININE 0.6 MG/DL (0.55-1.30); PHOSPHORUS 1.7 MG/DL (2.5-4.9); POTASSIUM 3.7 MMOL/L (3.5-5.1); SODIUM 140 MMOL/L (136-145)
[2018-05-18] MEDS: Cefepime HCl 1 GM in D5W 55 ML IVPB SCH ×2 (08:23→20:33)
[2018-05-18] MEDS: Digoxin 0.125mg tab ORAL SCH (08:24)
[2018-05-18] MEDS: Amiodarone 200mg tab ORAL SCH (08:24)
[2018-05-18] MEDS: Miralax 17gm pkt ORAL SCH (08:25)
[2018-05-18] MEDS: Eliquis 2.5mg tablet ORAL SCH ×2 (08:25→20:32)
[2018-05-18] MEDS: Metoprolol Tartrate 50mg tab ORAL SCH ×2 (08:25→20:32)
[2018-05-18] MEDS: Dakin's 0.125% Soln (Quarter Strength) 16oz TOPIC SCH (08:26)
[2018-05-18] MEDS ORDERED: LORazepam Inj 2mg/ml 1ml IV PRN (08:45)
[2018-05-18] MEDS ORDERED: Dakin's 0.125% Soln (Quarter Strength) 16oz TOPIC SCH (09:00)
[2018-05-18] MEDS ORDERED: Albuterol/Ipratropium 3ml neb HHN PRN (09:00)
[2018-05-18] MEDS ORDERED: Amiodarone 200mg tab ORAL SCH (09:00)
[2018-05-18] MEDS ORDERED: Digoxin 0.125mg tab ORAL SCH (09:00)
[2018-05-18] MEDS ORDERED: Miralax 17gm pkt ORAL SCH (09:00)
--- NOTE | 2018-05-18 10:53 | Pulmonology Progress Note ---
Assessment/Plan Problems: (1) Sepsis (2) Atrial fibrillation (3) Decubitus skin ulcer (4) Bipolar disorder (5) CAD (coronary artery disease) (6) HTN (hypertension) (7) CVA (cerebral vascular accident) Assessment/Plan [place] [facility] is ordered by ID iv abx wound care needs to have both legs amputated, if family consents f/u cultures monitor BP watch heart rate dvt prophylaxis symptomatic treatment Subjective ROS Limited/Unobtainable: Yes Allergies: Coded Allergies: MILK (Verified Allergy, Unknown, 02/02/18) Objective Last 24 Hour Vital Signs Date Time Temp Pulse Resp B/P (MAP) Pulse Ox O2 Delivery O2 Flow Rate FiO2 05/18/18 08:25 117 126/68 05/18/18 08:24 117 05/18/18 08:00 Room Air 05/18/18 08:00 98.5 124 20 130/63 (85) 99 05/18/18 04:00 97 19 126/68 (87) 100 05/18/18 04:00 Room Air 05/18/18 03:00 91 20 168/72 (104) 100 05/18/18 02:00 96 20 135/76 (95) 100 05/18/18 01:00 97.7 105 19 114/61 (78) 100 05/18/18 00:00 93 16 127/63 (84) 100 05/18/18 00:00 Room Air 05/17/18 23:00 97 18 134/68 (90) 100 05/17/18 22:00 80 20 105/51 (69) 100 05/17/18 21:00 86 22 115/52 (73) 100 05/17/18 20:18 101 134/68 05/17/18 20:00 105 05/17/18 20:00 97.8 115 28 130/68 (88) 100 05/17/18 20:00 Room Air 05/17/18 19:36 85 20 Room Air 21 05/17/18 19:00 103 19 116/70 (85) 100 05/17/18 18:00 113 20 117/69 (85) 100 05/17/18 17:00 97.9 113 26 142/81 (101) 100 05/17/18 16:00 Room Air 05/17/18 16:00 107 25 117/70 (86) 97 05/17/18 16:00 98 05/17/18 15:00 86 19 121/63 (82) 100 05/17/18 14:00 101 19 113/65 (81) 100 05/17/18 13:00 80 19 131/65 (87) 100 05/17/18 12:30 98 121/63 05/17/18 12:00 Room Air 05/17/18 12:00 97.6 79 20 119/64 (82) 89 05/17/18 12:00 70 05/17/18 11:30 73 20 114/68 (83) 100 05/17/18 11:00 75 21 108/57 (74) 100 Intake and Output 05/17/18 05/18/18 18:59 06:59 Intake Total 960 ml 1726.668 ml Output Total 350 ml 460 ml Balance 610 ml 1266.668 ml Intake Oral 680 ml IV Total 280 ml 1726.668 ml Output Urine Total 350 ml 460 ml # Voids 1 # Bowel Movements 1 Objective no change Laboratory Tests 05/18/18 03:40: White Blood Count 14.4H, Red Blood Count 3.83L, Hemoglobin 11.1L, Hematocrit 34.7L, Mean Corpuscular Volume 91, Mean Corpuscular Hemoglobin 29.0, Mean Corpuscular Hemoglobin Concent 32.0, Red Cell Distribution Width 12.5, Platelet Count 264, Mean Platelet Volume 5.7L, Neutrophils (%) (Auto) 80.2H, Lymphocytes (%) (Auto) 10.9L, Monocytes (%) (Auto) 6.9, Eosinophils (%) (Auto) 1.5, Basophils (%) (Auto) 0.6, Prothrombin Time 12.3H, Prothromb Time International Ratio 1.2H, Activated Partial Thromboplast Time 35H, Sodium Level 140, Potassium Level 3.7, Chloride Level 110H, Carbon Dioxide Level 23, Anion Gap 8, Blood Urea Nitrogen 22H, Creatinine 0.6, Estimat Glomerular Filtration Rate > 60 , Glucose Level 105, Calcium Level 7.9L, Phosphorus Level 1.7L, Magnesium Level 1.4L, Total Bilirubin 0.6, Aspartate Amino Transf (AST/SGOT) 42H, Alanine Aminotransferase (ALT/SGPT) 22, Alkaline Phosphatase 124H, Total Protein 6.1L, Albumin 1.1L, Globulin 5.0, Albumin/Globulin Ratio 0.2L Current Medications Medications (Trade) Dose Ordered Sig/Erlin Route PRN Reason Start Time Stop Time Status Last Admin Dose Admin Acetaminophen (Tylenol) 650 mg Q4H PRN ORAL Mild Pain/Temp > 100.5 05/18/18 08:45 06/11/18 12:34 Albuterol/ Ipratropium (Albuterol/ Ipratropium) 3 ml Q4H PRN HHN Shortness of Breath 05/18/18 09:00 05/22/18 08:59 Amiodarone HCl (Cordarone) 400 mg DAILY ORAL 05/18/18 09:00 06/17/18 08:59 05/18/18 08:24 Apixaban (Eliquis) 2.5 mg Q12HR ORAL 05/18/18 09:00 06/11/18 20:59 05/18/18 08:25 Barium Sulfate (Readi-Cat 2) 450 ml NOW PRN ORAL Radiology Procedure 05/18/18 12:15 05/18/18 21:00 Cefepime HCl 1 gm/ Dextrose 55 ml @ 110 mls/hr EVERY 12 HOURS IVPB 05/18/18 09:00 05/19/18 20:59 05/18/18 08:23 Digoxin (Lanoxin) 0.125 mg DAILY ORAL 05/18/18 09:00 06/12/18 08:59 05/18/18 08:24 Gabapentin (Neurontin) 100 mg THREE TIMES A DAY ORAL 05/18/18 09:00 06/11/18 17:59 05/18/18 08:25 Lorazepam (Ativan 2mg/ml 1ml) 1 mg Q4H PRN IV For Anxiety 05/18/18 08:45 05/19/18 12:34 Metoprolol Tartrate (Lopressor) 50 mg Q12HR ORAL 05/18/18 09:00 06/11/18 20:59 05/18/18 08:25 Morphine Sulfate (Morphine Sulfate) 2 mg Q4H PRN IVP For Pain 05/18/18 08:45 05/19/18 12:34 Polyethylene Glycol (Miralax) 17 gm DAILY ORAL 05/18/18 09:00 06/16/18 10:59 05/18/18 08:25 Potassium Chloride 10 meq/ Dextrose/Sodium Chloride 1,005 ml @ 75 mls/hr [id number] IV 05/18/18 05:30 06/12/18 14:59 05/18/18 05:40 Quetiapine Fumarate (SEROquel) 100 mg BEDTIME ORAL 05/18/18 21:00 06/11/18 20:59 Sodium Hypochlorite (Dakin's Quarter Strength) 1 applic DAILY TOPIC 05/18/18 09:00 06/12/18 14:18 05/18/18 08:26 Vancomycin HCl (Vanco rx to dose) 1 ea DAILY PRN MISC Per rx protocol 05/18/18 09:00 06/11/18 14:59 Vancomycin/Sodium Chloride 250 ml @ 166.667 mls/hr Q8H IVPB 05/18/18 13:00 05/19/18 23:59 Minerva Montesinos MD May 18, 2018 10:53
--- NOTE | 2018-05-18 14:07 | Infectious Diseases Prog Note ---
Assessment/Plan Assessment/Plan 68 yo male who was transferred from [place] where he initially presented for AMS from [facility]. Sepsis 2/2 to bacteremia Likely source is skin ulcer Blood Cx 05/12/18 at [place] [facility] -Bcx 05/12 and 24 (here) NTD 2d echo: no vegetations 05/15 CXR: Right midlung nodule. Absence of this finding on previous study makes this more likely to be a focus of inflammation, but rapidly growing neoplasm not excludable. Left basilar hazy opacity. Most likely a moderate to large pleural effusion.Component of infiltrate or atelectasis is also possible 05/12 CXR: Asymmetric ill-defined confluent groundglass opacity within the left mid/inferior lung, of uncertain etiology. Probable PNA Febrile to 101 ([employer])- here non so far Leukocytosis ,improving B/l LE nectrotic ulcer and toes- acute on chronci, ischemic w/ likely superinfection- likely non-salvageable per surgery Afib w/ RVR AMS Likely secondary to sepsis Cerebrovascular accident. Hypertension. Sacral decubitus ulcers. Bipolar disorder. Coronary artery disease. Plan - Continue Cefepime #7 and Vancomycin #7 pending Cx - f/u Blood Cx - Wound care - Monitor CBC and Temps -f/u sp cx, u/a w/ reflex -Cdiff if diarrhea -Obtain records from [place] for BCx results -f/u CT chest/abd/p -Sx and podiatry f/u: recommend b/l AKA Thank you for this consult. We will continue to follow the patient during this hospitalization. Subjective Allergies: Coded Allergies: MILK (Verified Allergy, Unknown, 02/02/18) Subjective transfered back to [facility] afebrile WBC improving Objective Vital Signs Last 24 Hour Vital Signs Date Time Temp Pulse Resp B/P (MAP) Pulse Ox O2 Delivery O2 Flow Rate FiO2 05/18/18 12:00 98.5 98 20 136/78 (97) 98 05/18/18 12:00 Room Air 05/18/18 08:25 117 126/68 05/18/18 08:24 117 05/18/18 08:00 Room Air 05/18/18 08:00 98.5 124 20 130/63 (85) 99 05/18/18 04:00 97 19 126/68 (87) 100 05/18/18 04:00 Room Air 05/18/18 03:00 91 20 168/72 (104) 100 05/18/18 02:00 96 20 135/76 (95) 100 05/18/18 01:00 97.7 105 19 114/61 (78) 100 05/18/18 00:00 93 16 127/63 (84) 100 05/18/18 00:00 Room Air 05/17/18 23:00 97 18 134/68 (90) 100 05/17/18 22:00 80 20 105/51 (69) 100 05/17/18 21:00 86 22 115/52 (73) 100 05/17/18 20:18 101 134/68 05/17/18 20:00 105 05/17/18 20:00 97.8 115 28 130/68 (88) 100 05/17/18 20:00 Room Air 05/17/18 19:36 85 20 Room Air 21 05/17/18 19:00 103 19 116/70 (85) 100 05/17/18 18:00 113 20 117/69 (85) 100 05/17/18 17:00 97.9 113 26 142/81 (101) 100 05/17/18 16:00 Room Air 05/17/18 16:00 107 25 117/70 (86) 97 05/17/18 16:00 98 05/17/18 15:00 86 19 121/63 (82) 100 Height (Feet): 6 Height (Inches): 5.00 Weight (Pounds): 207 Objective Gen: NAD. Mumbling HEENT: NCAT, MMM, EOMI, No Oral lesion, no scleral icterus NECK: full range of motion, supple, no meningismus, No LAD, No JVD LUNGS: CTAB, No W/C, No Accessory muscle use CARDS: RRR, S1, S2, No M/R/G ABD: Soft, NT, ND, No R/G, + BS, No HSM, No Masses : Deferred Ext: C/C/E, Pulses 2+ B/L (DP, Rad) NEURO: A/O x 0, Strength and Sensation Grossly intact PSYCH: mood/affect normal SKIN: Left foot wound. No purulent drainage, Feet now bandaged Laboratory Tests Test 05/18/18 03:40 White Blood Count 14.4 K/UL (4.8-10.8) H Red Blood Count 3.83 M/UL (4.70-6.10) L Hemoglobin 11.1 G/DL (14.2-18.0) L Hematocrit 34.7 % (42.0-52.0) L Mean Corpuscular Volume 91 FL (80-99) Mean Corpuscular Hemoglobin 29.0 PG (27.0-31.0) Mean Corpuscular Hemoglobin Concent 32.0 G/DL (32.0-36.0) Red Cell Distribution Width 12.5 % (11.6-14.8) Platelet Count 264 K/UL (150-450) Mean Platelet Volume 5.7 FL (6.5-10.1) L Neutrophils (%) (Auto) 80.2 % (45.0-75.0) H Lymphocytes (%) (Auto) 10.9 % (20.0-45.0) L Monocytes (%) (Auto) 6.9 % (1.0-10.0) Eosinophils (%) (Auto) 1.5 % (0.0-3.0) Basophils (%) (Auto) 0.6 % (0.0-2.0) Prothrombin Time 12.3 SEC (9.30-11.50) H Prothromb Time International Ratio 1.2 (0.9-1.1) H Activated Partial Thromboplast Time 35 SEC (23-33) H Sodium Level 140 MMOL/L (136-145) Potassium Level 3.7 MMOL/L (3.5-5.1) Chloride Level 110 MMOL/L (98-107) H Carbon Dioxide Level 23 MMOL/L (21-32) Anion Gap 8 mmol/L (5-15) Blood Urea Nitrogen 22 mg/dL (7-18) H Creatinine 0.6 MG/DL (0.55-1.30) Estimat Glomerular Filtration Rate > 60 mL/min (>60) Glucose Level 105 MG/DL (74-106) Calcium Level 7.9 MG/DL (8.5-10.1) L Phosphorus Level 1.7 MG/DL (2.5-4.9) L Magnesium Level 1.4 MG/DL (1.8-2.4) L Total Bilirubin 0.6 MG/DL (0.2-1.0) Aspartate Amino Transf (AST/SGOT) 42 U/L (15-37) H Alanine Aminotransferase (ALT/SGPT) 22 U/L (12-78) Alkaline Phosphatase 124 U/L (46-116) H Total Protein 6.1 G/DL (6.4-8.2) L Albumin 1.1 G/DL (3.4-5.0) L Globulin 5.0 g/dL Albumin/Globulin Ratio 0.2 (1.0-2.7) L Current Medications Medications (Trade) Dose Ordered Sig/Erlin Route PRN Reason Start Time Stop Time Status Last Admin Dose Admin Acetaminophen (Tylenol) 650 mg Q4H PRN ORAL Mild Pain/Temp > 100.5 05/18/18 08:45 06/11/18 12:34 Albuterol/ Ipratropium (Albuterol/ Ipratropium) 3 ml Q4H PRN HHN Shortness of Breath 05/18/18 09:00 05/22/18 08:59 Amiodarone HCl (Cordarone) 400 mg DAILY ORAL 05/18/18 09:00 06/17/18 08:59 05/18/18 08:24 Apixaban (Eliquis) 2.5 mg Q12HR ORAL 05/18/18 09:00 06/11/18 20:59 05/18/18 08:25 Barium Sulfate (Readi-Cat 2) 450 ml NOW PRN ORAL Radiology Procedure 05/18/18 12:15 05/18/18 21:00 Cefepime HCl 1 gm/ Dextrose 55 ml @ 110 mls/hr EVERY 12 HOURS IVPB 05/18/18 09:00 05/19/18 20:59 05/18/18 08:23 Digoxin (Lanoxin) 0.125 mg DAILY ORAL 05/18/18 09:00 06/12/18 08:59 05/18/18 08:24 Gabapentin (Neurontin) 100 mg THREE TIMES A DAY ORAL 05/18/18 09:00 06/11/18 17:59 05/18/18 12:28 Lorazepam (Ativan 2mg/ml 1ml) 1 mg Q4H PRN IV For Anxiety 05/18/18 08:45 05/19/18 12:34 Metoprolol Tartrate (Lopressor) 50 mg Q12HR ORAL 05/18/18 09:00 06/11/18 20:59 05/18/18 08:25 Morphine Sulfate (Morphine Sulfate) 2 mg Q4H PRN IVP For Pain 05/18/18 08:45 05/19/18 12:34 Polyethylene Glycol (Miralax) 17 gm DAILY ORAL 05/18/18 09:00 06/16/18 10:59 05/18/18 08:25 Potassium Chloride 10 meq/ Dextrose/Sodium Chloride 1,005 ml @ 75 mls/hr [id number] IV 05/18/18 05:30 06/12/18 14:59 05/18/18 05:40 Quetiapine Fumarate (SEROquel) 100 mg BEDTIME ORAL 05/18/18 21:00 06/11/18 20:59 Sodium Hypochlorite (Dakin's Quarter Strength) 1 applic DAILY TOPIC 05/18/18 09:00 06/12/18 14:18 05/18/18 08:26 Vancomycin HCl (Vanco rx to dose) 1 ea DAILY PRN MISC Per rx protocol 05/18/18 09:00 06/11/18 14:59 Vancomycin/Sodium Chloride 250 ml @ 166.667 mls/hr Q8H IVPB 05/18/18 13:00 05/19/18 23:59 05/18/18 12:29 Alma Elkins M.D. May 18, 2018 14:07
--- NOTE | 2018-05-18 14:37 | Cardiac Electrophysiology PN ---
Assessment/Plan Assessment/Plan 1. Paroxysmal Atrial fibrillation with rapid ventricular response. Continue digoxin 0.125 daily, metoprolol 50 bid, Amiodarone 400 daily and Eliquis 2.5 b.i.d. 2. Borderline hypotension. Resolved, off midodrine. 3. Fever and sepsis, on antibiotic with vancomycin and cefepime. 4. History of dementia and severe psychosis, on Seroquel. 5. Severe bilateral leg ulcers and sacral decubitus. FU Dr Osuna Has had chronic wounds on sacrum, buttock, and lower extremities. Prior had maggots in lower extremities treated with Prince GERMAN RN Subjective Subjective Transferred out of ICU in atrial fib with controlled rate Objective Last 24 Hour Vital Signs Date Time Temp Pulse Resp B/P (MAP) Pulse Ox O2 Delivery O2 Flow Rate FiO2 05/18/18 12:00 98.5 98 20 136/78 (97) 98 05/18/18 12:00 83 05/18/18 12:00 Room Air 05/18/18 08:25 117 126/68 05/18/18 08:24 117 05/18/18 08:00 Room Air 05/18/18 08:00 98.5 124 20 130/63 (85) 99 05/18/18 07:46 122 05/18/18 04:00 97 19 126/68 (87) 100 05/18/18 04:00 Room Air 05/18/18 03:00 91 20 168/72 (104) 100 05/18/18 02:00 96 20 135/76 (95) 100 05/18/18 01:00 97.7 105 19 114/61 (78) 100 05/18/18 00:00 93 16 127/63 (84) 100 05/18/18 00:00 Room Air 05/17/18 23:00 97 18 134/68 (90) 100 05/17/18 22:00 80 20 105/51 (69) 100 05/17/18 21:00 86 22 115/52 (73) 100 05/17/18 20:18 101 134/68 05/17/18 20:00 105 05/17/18 20:00 97.8 115 28 130/68 (88) 100 05/17/18 20:00 Room Air 05/17/18 19:36 85 20 Room Air 21 05/17/18 19:00 103 19 116/70 (85) 100 05/17/18 18:00 113 20 117/69 (85) 100 05/17/18 17:00 97.9 113 26 142/81 (101) 100 05/17/18 16:00 Room Air 05/17/18 16:00 107 25 117/70 (86) 97 05/17/18 16:00 98 05/17/18 15:00 86 19 121/63 (82) 100 Intake and Output 05/17/18 05/18/18 18:59 06:59 Intake Total 960 ml 1726.668 ml Output Total 350 ml 460 ml Balance 610 ml 1266.668 ml Intake Oral 680 ml IV Total 280 ml 1726.668 ml Output Urine Total 350 ml 460 ml # Voids 1 # Bowel Movements 1 Laboratory Tests Test 05/18/18 03:40 White Blood Count 14.4 K/UL (4.8-10.8) H Red Blood Count 3.83 M/UL (4.70-6.10) L Hemoglobin 11.1 G/DL (14.2-18.0) L Hematocrit 34.7 % (42.0-52.0) L Mean Corpuscular Volume 91 FL (80-99) Mean Corpuscular Hemoglobin 29.0 PG (27.0-31.0) Mean Corpuscular Hemoglobin Concent 32.0 G/DL (32.0-36.0) Red Cell Distribution Width 12.5 % (11.6-14.8) Platelet Count 264 K/UL (150-450) Mean Platelet Volume 5.7 FL (6.5-10.1) L Neutrophils (%) (Auto) 80.2 % (45.0-75.0) H Lymphocytes (%) (Auto) 10.9 % (20.0-45.0) L Monocytes (%) (Auto) 6.9 % (1.0-10.0) Eosinophils (%) (Auto) 1.5 % (0.0-3.0) Basophils (%) (Auto) 0.6 % (0.0-2.0) Prothrombin Time 12.3 SEC (9.30-11.50) H Prothromb Time International Ratio 1.2 (0.9-1.1) H Activated Partial Thromboplast Time 35 SEC (23-33) H Sodium Level 140 MMOL/L (136-145) Potassium Level 3.7 MMOL/L (3.5-5.1) Chloride Level 110 MMOL/L (98-107) H Carbon Dioxide Level 23 MMOL/L (21-32) Anion Gap 8 mmol/L (5-15) Blood Urea Nitrogen 22 mg/dL (7-18) H Creatinine 0.6 MG/DL (0.55-1.30) Estimat Glomerular Filtration Rate > 60 mL/min (>60) Glucose Level 105 MG/DL (74-106) Calcium Level 7.9 MG/DL (8.5-10.1) L Phosphorus Level 1.7 MG/DL (2.5-4.9) L Magnesium Level 1.4 MG/DL (1.8-2.4) L Total Bilirubin 0.6 MG/DL (0.2-1.0) Aspartate Amino Transf (AST/SGOT) 42 U/L (15-37) H Alanine Aminotransferase (ALT/SGPT) 22 U/L (12-78) Alkaline Phosphatase 124 U/L (46-116) H Total Protein 6.1 G/DL (6.4-8.2) L Albumin 1.1 G/DL (3.4-5.0) L Globulin 5.0 g/dL Albumin/Globulin Ratio 0.2 (1.0-2.7) L Objective HEAD AND NECK: Mild JVD. LUNGS: Coarse rhonchi. CARDIOVASCULAR: Irregular S1 and S2 with no murmur. ABDOMEN: Soft. EXTREMITIES: Bilateral leg ulcers Amandeep Arora MD May 18, 2018 14:37
--- NOTE | 2018-05-18 14:48 | Diagnostic Imaging Report ---
INDICATION: Chest pain, abdominal pain TECHNIQUE: Patient ingested oral contrast. IV administration nonionic contrast. Multiphasic spiral acquisitions obtained through the chest, abdomen, and pelvis Multiplanar reconstructions were generated. Total dose length product 1509.62 mGycm. CTDIvol(s) 12.92,15.98 mGy. Radiation dose was minimized using automated exposure control COMPARISON: No comparison CTs. Reference made to abdominal ultrasound 02/02/2018 FINDINGS: Chest: The lungs demonstrate a 10 mm opacity the peripheral anterolateral right upper lobe with a small cavitation. A patchy ill-defined approximately 17 mm groundglass opacity is also seen in the posterior right upper lobe. There is a moderate size right pleural effusion, with resultant compressive atelectasis of a significant portion of the right lower lobe. The left upper lobe is clear. There is a large left pleural effusion. This results in compressive atelectasis of much of the left lower lobe. No definite congestion. The heart is enlarged, with enlargement especially of the right atrium. There is evidence of left ventricular muscular hypertrophy. The esophagus demonstrates equivocal distal wall thickening. No mediastinal or hilar mass or adenopathy. Included portions of the thyroid are unremarkable. No axillary or chest wall mass or adenopathy. The bones demonstrate anterior and lateral syndesmophytes of the thoracic spine. Abdomen pelvis: There is no evidence of diverticulosis or diverticulitis. The appendix is normal. Contrast is seen throughout the entirety of the small bowel and most of the colon, indicating absence of obstructive pathology. There is a small fat-containing umbilical hernia. There is no evidence of small bowel wall thickening. No free or loculated intraperitoneal gas or fluid is evident. The stomach is unremarkable. The gallbladder is nondistended. The liver, bile ducts, pancreas are unremarkable. The spleen demonstrates a 2 cm near fluid attenuation lesion which does not demonstrate any change in attenuation between the phases of the exam. Margins are ill-defined. The adrenals are unremarkable. No intrinsic renal abnormality. There is nonspecific stranding of the perinephric fat bilaterally.. There are somewhat prominent retrocrural lymph nodes which measure up to 2.2 cm in diameter and demonstrate low-attenuation centers. There are also prominent pericaval lymph nodes. No pelvic or mesenteric lymphadenopathy demonstrated. The bladder is distended. No pelvic mass or adenopathy. There is edema of the bilateral flank and proximal thigh subcutaneous fat, slightly greater on the right than on the left. The bones demonstrate degenerative changes of the lumbar spine and bilateral hips with extensive degenerative proliferative change IMPRESSION: 10 mm opacity in the peripheral anterolateral right upper lobe with small central cavitation. Patchy groundglass opacity in the posterior right upper lobe. Suspect that these represent inflammatory/infectious lesions, but neoplastic etiology of either is certainly possible. Large left and moderate right pleural effusions. Resultant compressive atelectasis of portions of the lower lobes Cardiomegaly. Left ventricular muscular hypertrophy. Equivocal distal esophageal wall thickening, could indicate esophagitis if real 2 cm low-attenuation lesion in the spleen. Appearance is nonspecific, most likely differential consideration is somewhat atypical splenic cyst, other possibilities include abscess, infarction, sarcoidosis, neoplasm. Ultrasound may be useful for better characterization if clinically indicated Borderline retroperitoneal and retrocrural lymphadenopathy. This could be inflammatory, reactive, or neoplastic Edema of the bilateral hips and flanks Degenerative thoracic lumbosacral spondylosis, extensive bilateral hip degeneration incidentally noted The CT scanner at [facility] is accredited by the [employer] and the scans are performed using protocols designed to limit radiation exposure to as low as reasonably achievable to attain images of sufficient resolution adequate for diagnostic evaluation.
[2018-05-18] MEDS ORDERED: Tubing IV Secondary IV ONE (16:57)
[2018-05-18] MEDS: Morphine Sulfate 2mg/ml Inj IVP PRN (17:13)
--- NOTE | 2018-05-18 17:37 | General Surgery Progress Note ---
General Surgery-Progress Note Subjective Additional Comments leukocytosis. tachy. downgraded from ICU. awake and responsive. c/o lower extremity pain Objective Last 24 Hour Vital Signs Date Time Temp Pulse Resp B/P (MAP) Pulse Ox O2 Delivery O2 Flow Rate FiO2 05/18/18 16:00 98.3 113 21 124/84 (97) 99 05/18/18 16:00 123 05/18/18 16:00 Room Air 05/18/18 12:00 98.5 98 20 136/78 (97) 98 05/18/18 12:00 83 05/18/18 12:00 Room Air 05/18/18 08:25 117 126/68 05/18/18 08:24 117 05/18/18 08:00 Room Air 05/18/18 08:00 98.5 124 20 130/63 (85) 99 05/18/18 07:46 122 05/18/18 04:00 97 19 126/68 (87) 100 05/18/18 04:00 Room Air 05/18/18 03:00 91 20 168/72 (104) 100 05/18/18 02:00 96 20 135/76 (95) 100 05/18/18 01:00 97.7 105 19 114/61 (78) 100 05/18/18 00:00 93 16 127/63 (84) 100 05/18/18 00:00 Room Air 05/17/18 23:00 97 18 134/68 (90) 100 05/17/18 22:00 80 20 105/51 (69) 100 05/17/18 21:00 86 22 115/52 (73) 100 05/17/18 20:18 101 134/68 05/17/18 20:00 105 05/17/18 20:00 97.8 115 28 130/68 (88) 100 05/17/18 20:00 Room Air 05/17/18 19:36 85 20 Room Air 21 05/17/18 19:00 103 19 116/70 (85) 100 05/17/18 18:00 113 20 117/69 (85) 100 I&O Intake and Output 05/17/18 05/18/18 19:00 07:00 Intake Total 1201.667 ml 1560.001 ml Output Total 260 ml 400 ml Balance 941.667 ml 1160.001 ml Intake Oral 680 ml IV Total 521.667 ml 1560.001 ml Output Urine Total 260 ml 400 ml # Voids 1 # Bowel Movements 1 Dressing: other Wound: other Drains: other Cardiovascular: RSR Respiratory: clear Abdomen: soft, flat, non-tender, present bowel sounds Extremities: tenderness, cyanosis, other Laboratory Tests Test 05/18/18 03:40 White Blood Count 14.4 K/UL (4.8-10.8) H Red Blood Count 3.83 M/UL (4.70-6.10) L Hemoglobin 11.1 G/DL (14.2-18.0) L Hematocrit 34.7 % (42.0-52.0) L Mean Corpuscular Volume 91 FL (80-99) Mean Corpuscular Hemoglobin 29.0 PG (27.0-31.0) Mean Corpuscular Hemoglobin Concent 32.0 G/DL (32.0-36.0) Red Cell Distribution Width 12.5 % (11.6-14.8) Platelet Count 264 K/UL (150-450) Mean Platelet Volume 5.7 FL (6.5-10.1) L Neutrophils (%) (Auto) 80.2 % (45.0-75.0) H Lymphocytes (%) (Auto) 10.9 % (20.0-45.0) L Monocytes (%) (Auto) 6.9 % (1.0-10.0) Eosinophils (%) (Auto) 1.5 % (0.0-3.0) Basophils (%) (Auto) 0.6 % (0.0-2.0) Prothrombin Time 12.3 SEC (9.30-11.50) H Prothromb Time International Ratio 1.2 (0.9-1.1) H Activated Partial Thromboplast Time 35 SEC (23-33) H Sodium Level 140 MMOL/L (136-145) Potassium Level 3.7 MMOL/L (3.5-5.1) Chloride Level 110 MMOL/L (98-107) H Carbon Dioxide Level 23 MMOL/L (21-32) Anion Gap 8 mmol/L (5-15) Blood Urea Nitrogen 22 mg/dL (7-18) H Creatinine 0.6 MG/DL (0.55-1.30) Estimat Glomerular Filtration Rate > 60 mL/min (>60) Glucose Level 105 MG/DL (74-106) Calcium Level 7.9 MG/DL (8.5-10.1) L Phosphorus Level 1.7 MG/DL (2.5-4.9) L Magnesium Level 1.4 MG/DL (1.8-2.4) L Total Bilirubin 0.6 MG/DL (0.2-1.0) Aspartate Amino Transf (AST/SGOT) 42 U/L (15-37) H Alanine Aminotransferase (ALT/SGPT) 22 U/L (12-78) Alkaline Phosphatase 124 U/L (46-116) H Total Protein 6.1 G/DL (6.4-8.2) L Albumin 1.1 G/DL (3.4-5.0) L Globulin 5.0 g/dL Albumin/Globulin Ratio 0.2 (1.0-2.7) L Plan Problems: (1) Sepsis Assessment & Plan: etiology of leukocytosis unknown will need further work up IV abx appreciate ID input trend labs Discussed findings with Vascular and Podiatry Agree that lower extremities are not salvageable. Would recommend bilateral AKA Need to contact family and discuss. Patient without capacity to make decision. Need to work on consent Needs POA or designated Next of Kin as proposed surgery is very invasive Spoke with two daughters today. Sister is out of the country. Very long discussion about medical condition and care plan discussed clinical findings discussed radiological findings. discussed medical condition discussed multi-disciplinary team recommendations for AKA bilaterally daughters very reasonable and aware of his condition. eldest daughter states that she had a discussion with him 1 month about regarding amputation as it had been recommended prior. states that father had lower extremities amputated for similar reasons at similar age. family is in consideration of above. will discuss and call back with answer thank you (2) Decubitus skin ulcer Assessment & Plan: Patient well known to me. Has had chronic wounds on sacrum, buttock, and lower extremities. Prior had maggots in lower extremities treated with Dakins and wound care which are since resolved. Multiple pressure ulcers. Patient unable to participate in exam and care plan. Now presents with multiple ulcerations to both lower extremities. Wounds are irregular malodorous. Both lower ext. cool to touch. Toes necrotic with ulcerations 1st, 2nd and 3rd metatarsals ulcerated. Ulcers dorsal aspects of toes L foot.Web spaces of toes are dry . Full thickness pressure injury to sacrum with 60% slough,(+) epibole.Wound measures (L)7cm x (W)7.5cm x (D)2.5cm. Periwound dark .Wound malodorous. Right buttock and ischial tuberosity which are large and with eschar cap unstageable full thickness. both heels have DTI with blood blisters noted. Wounds have significantly deteriorated since last admission with new wounds noted on lower extremities and buttock. Areas of prior maggot infection are healing but still with wounds. Refer to wound care photos for details. Tx.Plan: Cleanse both lower ext wounds with NS . Skin protectant .Dakin's 0.25% moist gauze, Cover with ABD and wrap with soft chavez daily an dprn Apply Light dusting of [place] Starch or baby powder in web spaces of toes on feet Clean sacral decubitus and buttock ulcer with NS, apply skin protectant / honey gel, apply foam dressing daily and prn Air Fluidized mattress on bed (P200). Encourage and assist with repositioning at least every 2hours or as tolerated. Off-load heels with pillow. would appreciate Podiatry and Vascular consult as I dont anticipate lower extremity will be salvageable at this time. Recommend bilateral AKA. patient does not seem to have capacity. psych eval Duplex studies Goyo Osuna May 18, 2018 17:37
--- NOTE | 2018-05-18 19:06 | Internal Med Progress Note ---
Subjective Date of Service: May 18, 2018 Physician Name RenettaDaniel Attending Physician Pedro Caban MD Current Medications Medications (Trade) Dose Ordered Sig/Erlin Route PRN Reason Start Time Stop Time Status Last Admin Dose Admin Acetaminophen (Tylenol) 650 mg Q4H PRN ORAL Mild Pain/Temp > 100.5 05/18/18 08:45 06/11/18 12:34 Albuterol/ Ipratropium (Albuterol/ Ipratropium) 3 ml Q4H PRN HHN Shortness of Breath 05/18/18 09:00 05/22/18 08:59 Amiodarone HCl (Cordarone) 400 mg DAILY ORAL 05/18/18 09:00 06/17/18 08:59 05/18/18 08:24 Apixaban (Eliquis) 2.5 mg Q12HR ORAL 05/18/18 09:00 06/11/18 20:59 05/18/18 08:25 Barium Sulfate (Readi-Cat 2) 450 ml NOW PRN ORAL Radiology Procedure 05/18/18 12:15 05/18/18 21:00 05/18/18 17:05 Cefepime HCl 1 gm/ Dextrose 55 ml @ 110 mls/hr EVERY 12 HOURS IVPB 05/18/18 09:00 05/19/18 20:59 05/18/18 08:23 Digoxin (Lanoxin) 0.125 mg DAILY ORAL 05/18/18 09:00 06/12/18 08:59 05/18/18 08:24 Gabapentin (Neurontin) 100 mg THREE TIMES A DAY ORAL 05/18/18 09:00 06/11/18 17:59 05/18/18 17:20 Lorazepam (Ativan 2mg/ml 1ml) 1 mg Q4H PRN IV For Anxiety 05/18/18 08:45 05/19/18 12:34 Metoprolol Tartrate (Lopressor) 50 mg Q12HR ORAL 05/18/18 09:00 06/11/18 20:59 05/18/18 08:25 Morphine Sulfate (Morphine Sulfate) 2 mg Q4H PRN IVP For Pain 05/18/18 08:45 05/19/18 12:34 05/18/18 17:13 Polyethylene Glycol (Miralax) 17 gm DAILY ORAL 05/18/18 09:00 06/16/18 10:59 05/18/18 08:25 Potassium Chloride 10 meq/ Dextrose/Sodium Chloride 1,005 ml @ 75 mls/hr [id number] IV 05/18/18 05:30 06/12/18 14:59 05/18/18 17:19 Quetiapine Fumarate (SEROquel) 100 mg BEDTIME ORAL 05/18/18 21:00 06/11/18 20:59 Sodium Hypochlorite (Dakin's Quarter Strength) 1 applic DAILY TOPIC 05/18/18 09:00 06/12/18 14:18 05/18/18 08:26 Vancomycin HCl (Vanco rx to dose) 1 ea DAILY PRN MISC Per rx protocol 05/18/18 09:00 06/11/18 14:59 Vancomycin/Sodium Chloride 250 ml @ 166.667 mls/hr Q8H IVPB 05/18/18 13:00 05/19/18 23:59 05/18/18 12:29 Allergies: Coded Allergies: MILK (Verified Allergy, Unknown, 02/02/18) ROS Limited/Unobtainable: Yes Subjective 68 YO A M admitted with altered mental status. Now sepsis and atrial fibrillation with rapid rate. Cover for Int Med-Dr Caban. Continues to have tachycardia Objective Last Vital Signs Date Time Temp Pulse Resp B/P (MAP) Pulse Ox O2 Delivery O2 Flow Rate FiO2 05/18/18 16:00 98.3 113 21 124/84 (97) 99 05/18/18 16:00 Room Air 05/17/18 19:36 21 Laboratory Tests Test 05/18/18 03:40 White Blood Count 14.4 K/UL (4.8-10.8) H Red Blood Count 3.83 M/UL (4.70-6.10) L Hemoglobin 11.1 G/DL (14.2-18.0) L Hematocrit 34.7 % (42.0-52.0) L Mean Corpuscular Volume 91 FL (80-99) Mean Corpuscular Hemoglobin 29.0 PG (27.0-31.0) Mean Corpuscular Hemoglobin Concent 32.0 G/DL (32.0-36.0) Red Cell Distribution Width 12.5 % (11.6-14.8) Platelet Count 264 K/UL (150-450) Mean Platelet Volume 5.7 FL (6.5-10.1) L Neutrophils (%) (Auto) 80.2 % (45.0-75.0) H Lymphocytes (%) (Auto) 10.9 % (20.0-45.0) L Monocytes (%) (Auto) 6.9 % (1.0-10.0) Eosinophils (%) (Auto) 1.5 % (0.0-3.0) Basophils (%) (Auto) 0.6 % (0.0-2.0) Prothrombin Time 12.3 SEC (9.30-11.50) H Prothromb Time International Ratio 1.2 (0.9-1.1) H Activated Partial Thromboplast Time 35 SEC (23-33) H Sodium Level 140 MMOL/L (136-145) Potassium Level 3.7 MMOL/L (3.5-5.1) Chloride Level 110 MMOL/L (98-107) H Carbon Dioxide Level 23 MMOL/L (21-32) Anion Gap 8 mmol/L (5-15) Blood Urea Nitrogen 22 mg/dL (7-18) H Creatinine 0.6 MG/DL (0.55-1.30) Estimat Glomerular Filtration Rate > 60 mL/min (>60) Glucose Level 105 MG/DL (74-106) Calcium Level 7.9 MG/DL (8.5-10.1) L Phosphorus Level 1.7 MG/DL (2.5-4.9) L Magnesium Level 1.4 MG/DL (1.8-2.4) L Total Bilirubin 0.6 MG/DL (0.2-1.0) Aspartate Amino Transf (AST/SGOT) 42 U/L (15-37) H Alanine Aminotransferase (ALT/SGPT) 22 U/L (12-78) Alkaline Phosphatase 124 U/L (46-116) H Total Protein 6.1 G/DL (6.4-8.2) L Albumin 1.1 G/DL (3.4-5.0) L Globulin 5.0 g/dL Albumin/Globulin Ratio 0.2 (1.0-2.7) L Intake and Output 05/17/18 05/18/18 19:00 07:00 Intake Total 1201.667 ml 1560.001 ml Output Total 260 ml 400 ml Balance 941.667 ml 1160.001 ml Intake Oral 680 ml IV Total 521.667 ml 1560.001 ml Output Urine Total 260 ml 400 ml # Voids 1 # Bowel Movements 1 Objective General Appearance: alert, thin, agitated EENT: PERRL/EOMI, normal ENT inspection Neck: non-tender, normal alignment, supple, normal inspection Cardiovascular: normal peripheral pulses, normal rate, no gallop/murmur, no JVD , irregularly irregular Respiratory/Chest: chest wall non-tender, lungs clear, normal breath sounds, no respiratory distress, no accessory muscle use Abdomen: normal bowel sounds, non tender, soft, no organomegaly, no mass Extremities: normal range of motion, non-tender Neurologic: jacquard plate maker II-XII grossly 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 Continue eliquis (3) Hypertension Assessment & Plan: continue metoprolol (4) CAD (coronary artery disease) (5) Bipolar disorder (6) Fever (7) Decubitus skin ulcer Assessment & Plan: Will require bilateral above the knee amputation-see surgery consult. (8) Sepsis Assessment & Plan: Continue antibiotic per ID (9) UTI (urinary tract infection) Assessment & Plan: Mixed culture-continue vanco and cefepime per ID (10) Leukocytosis Status: progressing Daniel Jackson MD May 18, 2018 19:06
--- NOTE | 2018-05-18 22:59 | General Progress Note ---
Assessment/Plan Problem List: (1) Bipolar disorder ICD Codes: F31.9 - Bipolar disorder, unspecified SNOMED: [id number] (2) encephalopathy Status: stable Assessment/Plan dc abilify start seroquel the pt lacks capacity to make decisions Subjective 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: Reports: anxiety, depressed, emotional problems Allergies: Coded Allergies: MILK (Verified Allergy, Unknown, 02/02/18) Objective Last 24 Hour Vital Signs Date Time Temp Pulse Resp B/P (MAP) Pulse Ox O2 Delivery O2 Flow Rate FiO2 05/18/18 20:32 125 140/70 05/18/18 19:49 112 18 Room Air 21 05/18/18 16:00 98.3 113 21 124/84 (97) 99 05/18/18 16:00 123 05/18/18 16:00 Room Air 05/18/18 12:00 98.5 98 20 136/78 (97) 98 05/18/18 12:00 83 05/18/18 12:00 Room Air 05/18/18 08:25 117 126/68 05/18/18 08:24 117 05/18/18 08:00 Room Air 05/18/18 08:00 98.5 124 20 130/63 (85) 99 05/18/18 07:46 122 05/18/18 04:00 97 19 126/68 (87) 100 05/18/18 04:00 Room Air 05/18/18 03:00 91 20 168/72 (104) 100 05/18/18 02:00 96 20 135/76 (95) 100 05/18/18 01:00 97.7 105 19 114/61 (78) 100 05/18/18 00:00 93 16 127/63 (84) 100 05/18/18 00:00 Room Air 05/17/18 23:00 97 18 134/68 (90) 100 Intake and Output 05/17/18 05/18/18 19:00 07:00 Intake Total 1201.667 ml 1560.001 ml Output Total 260 ml 400 ml Balance 941.667 ml 1160.001 ml Intake Oral 680 ml IV Total 521.667 ml 1560.001 ml Output Urine Total 260 ml 400 ml # Voids 1 # Bowel Movements 1 Laboratory Tests 05/18/18 03:40: White Blood Count 14.4H, Red Blood Count 3.83L, Hemoglobin 11.1L, Hematocrit 34.7L, Mean Corpuscular Volume 91, Mean Corpuscular Hemoglobin 29.0, Mean Corpuscular Hemoglobin Concent 32.0, Red Cell Distribution Width 12.5, Platelet Count 264, Mean Platelet Volume 5.7L, Neutrophils (%) (Auto) 80.2H, Lymphocytes (%) (Auto) 10.9L, Monocytes (%) (Auto) 6.9, Eosinophils (%) (Auto) 1.5, Basophils (%) (Auto) 0.6, Prothrombin Time 12.3H, Prothromb Time International Ratio 1.2H, Activated Partial Thromboplast Time 35H, Sodium Level 140, Potassium Level 3.7, Chloride Level 110H, Carbon Dioxide Level 23, Anion Gap 8, Blood Urea Nitrogen 22H, Creatinine 0.6, Estimat Glomerular Filtration Rate > 60 , Glucose Level 105, Calcium Level 7.9L, Phosphorus Level 1.7L, Magnesium Level 1.4L, Total Bilirubin 0.6, Aspartate Amino Transf (AST/SGOT) 42H, Alanine Aminotransferase (ALT/SGPT) 22, Alkaline Phosphatase 124H, Total Protein 6.1L, Albumin 1.1L, Globulin 5.0, Albumin/Globulin Ratio 0.2L Height (Feet): 6 Height (Inches): 5.00 Weight (Pounds): 207 General Appearance: no apparent distress, alert, confused Julissa Still MD May 18, 2018 22:58
[2018-05-19] VITALS: BP 100/60
[2018-05-19] MEDS: Morphine Sulfate 2mg/ml Inj IVP PRN ×4 (02:45→18:49)
[2018-05-19 04:00] VITALS: BP 126/89
[2018-05-19 05:21] LABS: BASOPHILS % (AUTO) 0.4 % (0.0-2.0); EOSINOPHILS % (AUTO) 1.3 % (0.0-3.0); HEMOGLOBIN 11.1 G/DL (14.2-18.0); LYMPHOCYTES % (AUTO) 11.4 % (20.0-45.0); MEAN CORPUSCULAR VOLUME 90 FL (80-99); MONOCYTES % (AUTO) 8.5 % (1.0-10.0); NEUTROPHILS % (AUTO) 78.4 % (45.0-75.0); PLATELET COUNT 279 K/UL (150-450); RED BLOOD COUNT 3.76 M/UL (4.70-6.10); RED CELL DISTRIBUTION WIDTH 12.7 % (11.6-14.8); WHITE BLOOD COUNT 13.6 K/UL (4.8-10.8)
[2018-05-19 06:01] LABS: PHOSPHORUS 1.8 MG/DL (2.5-4.9)
[2018-05-19 06:04] LABS: ALANINE AMINOTRANSFERASE 24 U/L (12-78); ALBUMIN 1.1 G/DL (3.4-5.0); ALBUMIN/GLOBULIN RATIO 0.2 (1.0-2.7); ALKALINE PHOSPHATASE 132 U/L (46-116); ANION GAP 6 mmol/L (5-15); ASPARTATE AMINO TRANSFERASE 51 U/L (15-37); BILIRUBIN,TOTAL 0.7 MG/DL (0.2-1.0); BLOOD UREA NITROGEN 16 mg/dL (7-18); CALCIUM 7.8 MG/DL (8.5-10.1); CARBON DIOXIDE 24 MMOL/L (21-32); CHLORIDE 108 MMOL/L (98-107); CREATININE 0.6 MG/DL (0.55-1.30); POTASSIUM 3.7 MMOL/L (3.5-5.1); SODIUM 138 MMOL/L (136-145)
[2018-05-19] MEDS: Vancomycin 750mg/NS 250ml 250 ML IVPB SCH ×3 (06:40→21:22)
[2018-05-19 08:00] VITALS: BP 127/91
[2018-05-19] MEDS: Amiodarone 200mg tab ORAL SCH (08:48)
[2018-05-19] MEDS: Miralax 17gm pkt ORAL SCH ×2 (08:48→09:00)
[2018-05-19] MEDS: Metoprolol Tartrate 50mg tab ORAL SCH ×2 (08:49→21:22)
[2018-05-19] MEDS: Digoxin 0.125mg tab ORAL SCH (08:51)
[2018-05-19] MEDS: Eliquis 2.5mg tablet ORAL SCH (08:51)
[2018-05-19] MEDS: Potassium Chloride 10 MEQ in D5 1/2NS 1,000 ML IV SCH ×2 (08:52→22:17)
[2018-05-19] MEDS: Dakin's 0.125% Soln (Quarter Strength) 16oz TOPIC SCH (09:05)
[2018-05-19] MEDS: Cefepime HCl 1 GM in D5W 55 ML IVPB SCH (09:22)
--- NOTE | 2018-05-19 10:45 | Pulmonology Progress Note ---
Assessment/Plan Problems: (1) Sepsis (2) Atrial fibrillation (3) Decubitus skin ulcer (4) Bipolar disorder (5) CAD (coronary artery disease) (6) HTN (hypertension) (7) CVA (cerebral vascular accident) Assessment/Plan CT reviewed, see above iv abx wound care needs to have both legs amputated, if family consents f/u cultures monitor BP watch heart rate dvt prophylaxis symptomatic treatment Subjective ROS Limited/Unobtainable: No Constitutional: Reports: no symptoms HEENT: Repors: no symptoms Respiratory: Reports: no symptoms Allergies: Coded Allergies: MILK (Verified Allergy, Unknown, 02/02/18) Objective Last 24 Hour Vital Signs Date Time Temp Pulse Resp B/P (MAP) Pulse Ox O2 Delivery O2 Flow Rate FiO2 05/19/18 09:50 66 20 Room Air 21 05/19/18 08:51 126 05/19/18 08:49 126 121/91 05/19/18 08:00 129 05/19/18 04:00 Room Air 05/19/18 04:00 97.7 100 20 126/89 (101) 97 05/19/18 04:00 114 05/19/18 00:00 Room Air 05/19/18 00:00 69 05/19/18 00:00 98.7 70 24 100/60 (73) 94 05/18/18 20:32 125 140/70 05/18/18 20:00 129 05/18/18 20:00 Room Air 05/18/18 20:00 98.6 125 24 140/70 (93) 99 05/18/18 19:49 112 18 Room Air 21 05/18/18 16:00 98.3 113 21 124/84 (97) 99 05/18/18 16:00 123 05/18/18 16:00 Room Air 05/18/18 12:00 98.5 98 20 136/78 (97) 98 05/18/18 12:00 83 05/18/18 12:00 Room Air Intake and Output 05/18/18 05/19/18 18:59 06:59 Intake Total 1573.334 ml 110 ml Output Total 250 ml 350 ml Balance 1323.334 ml -240 ml Intake Oral 600 ml IV Total 973.334 ml 110 ml Output Urine Total 250 ml 350 ml # Voids 1 # Bowel Movements [address] of chest reviewed, minimal infiltrate in right upper lobe is too small to be clinically significant. Pt has large left effusion. I ordered US guided thoracentesis. HEENT: normocephalic Respiratory/Chest: chest wall non-tender Cardiovascular: normal peripheral pulses Abdomen: normal bowel sounds, soft, non tender Skin: no lesions 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: compensation expert II-XII grossly normal Laboratory Tests 05/19/18 03:50: White Blood Count 13.6H, Red Blood Count 3.76L, Hemoglobin 11.1L, Hematocrit 34.0L, Mean Corpuscular Volume 90, Mean Corpuscular Hemoglobin 29.4, Mean Corpuscular Hemoglobin Concent 32.6, Red Cell Distribution Width 12.7, Platelet Count 279, Mean Platelet Volume 5.5L, Neutrophils (%) (Auto) 78.4H, Lymphocytes (%) (Auto) 11.4L, Monocytes (%) (Auto) 8.5, Eosinophils (%) (Auto) 1.3, Basophils (%) (Auto) 0.4, Erythrocyte Sedimentation Rate 80H, Sodium Level 138, Potassium Level 3.7, Chloride Level 108H, Carbon Dioxide Level 24, Anion Gap 6, Blood Urea Nitrogen 16, Creatinine 0.6, Estimat Glomerular Filtration Rate > 60 , Glucose Level 94, Calcium Level 7.8L, Phosphorus Level 1.8L, Magnesium Level 1.6L, Total Bilirubin 0.7, Aspartate Amino Transf (AST/SGOT) 51H, Alanine Aminotransferase (ALT/SGPT) 24, Alkaline Phosphatase 132H, C-Reactive Protein, Quantitative 6.5H, Total Protein 6.0L, Albumin 1.1L, Globulin 4.9, Albumin/ Globulin Ratio 0.2L, Vancomycin Level Trough 14.8H Current Medications Medications (Trade) Dose Ordered Sig/Erlin Route PRN Reason Start Time Stop Time Status Last Admin Dose Admin Acetaminophen (Tylenol) 650 mg Q4H PRN ORAL Mild Pain/Temp > 100.5 05/18/18 08:45 06/11/18 12:34 05/18/18 21:28 Albuterol/ Ipratropium (Albuterol/ Ipratropium) 3 ml Q4H PRN HHN Shortness of Breath 05/18/18 09:00 05/22/18 08:59 Amiodarone HCl (Cordarone) 400 mg DAILY ORAL 05/18/18 09:00 06/17/18 08:59 05/19/18 08:48 Apixaban (Eliquis) 2.5 mg Q12HR ORAL 05/18/18 09:00 06/11/18 20:59 05/19/18 08:51 Cefepime HCl 1 gm/ Dextrose 55 ml @ 110 mls/hr EVERY 12 HOURS IVPB 05/18/18 09:00 05/19/18 20:59 05/19/18 09:22 Digoxin (Lanoxin) 0.125 mg DAILY ORAL 05/18/18 09:00 06/12/18 08:59 05/19/18 08:51 Gabapentin (Neurontin) 100 mg THREE TIMES A DAY ORAL 05/18/18 09:00 06/11/18 17:59 05/19/18 08:50 Lorazepam (Ativan 2mg/ml 1ml) 1 mg Q4H PRN IV For Anxiety 05/18/18 08:45 05/19/18 12:34 Magnesium Sulfate 100 ml @ 100 mls/hr Q1H IVPB 05/19/18 13:00 05/19/18 14:59 UNV Metoprolol Tartrate (Lopressor) 50 mg Q12HR ORAL 05/18/18 09:00 06/11/18 20:59 05/19/18 08:49 Morphine Sulfate (Morphine Sulfate) 2 mg Q4H PRN IVP For Pain 05/18/18 08:45 05/19/18 12:34 05/19/18 08:53 Polyethylene Glycol (Miralax) 17 gm DAILY ORAL 05/18/18 09:00 06/16/18 10:59 05/18/18 08:25 Potassium Chloride 10 meq/ Dextrose/Sodium Chloride 1,005 ml @ 75 mls/hr [id number] IV 05/18/18 05:30 06/12/18 14:59 05/19/18 08:52 Quetiapine Fumarate (SEROquel) 100 mg BEDTIME ORAL 05/18/18 21:00 06/11/18 20:59 05/18/18 20:31 Sodium Hypochlorite (Dakin's Quarter Strength) 1 applic DAILY TOPIC 05/18/18 09:00 06/12/18 14:18 05/19/18 09:05 Vancomycin HCl (Vanco rx to dose) 1 ea DAILY PRN MISC Per rx protocol 05/18/18 09:00 06/11/18 14:59 Vancomycin/Sodium Chloride 250 ml @ 166.667 mls/hr Q8H IVPB 05/18/18 13:00 05/24/18 12:59 05/19/18 06:40 Minerva Montesinos MD May 19, 2018 10:45
[2018-05-19 12:00] VITALS: BP 105/62
[2018-05-19 12:29] LABS: INR 1.2 (0.9-1.1)
--- NOTE | 2018-05-19 12:45 | Cardiac Electrophysiology PN ---
Assessment/Plan Assessment/Plan 1. Paroxysmal Atrial fibrillation, flutter with RVR Continue digoxin 0.125 daily, metoprolol 50 bid and Eliquis 2.5 b.i.d. Decrease Amiodarone to 200 daily. Stat ECG 2. Borderline hypotension. Resolved, off midodrine. 3. Fever and sepsis, on antibiotic with vancomycin and cefepime. 4. History of dementia and severe psychosis, on Seroquel. 5. Severe bilateral leg ulcers and sacral decubitus. FU Dr Osuna Has had chronic wounds on sacrum, buttock, and lower extremities. Prior had maggots in lower extremities treated with Dakins DW RN Subjective Subjective In SDU in atrial flutter with controlled rate. More alert. RN at bedside. Objective Last 24 Hour Vital Signs Date Time Temp Pulse Resp B/P (MAP) Pulse Ox O2 Delivery O2 Flow Rate FiO2 05/19/18 09:50 66 20 Room Air 21 05/19/18 08:51 126 05/19/18 08:49 126 121/91 05/19/18 08:00 129 05/19/18 08:00 97.8 120 20 127/91 (103) 95 05/19/18 04:00 Room Air 05/19/18 04:00 97.7 100 20 126/89 (101) 97 05/19/18 04:00 114 05/19/18 00:00 Room Air 05/19/18 00:00 69 05/19/18 00:00 98.7 70 24 100/60 (73) 94 05/18/18 20:32 125 140/70 05/18/18 20:00 129 05/18/18 20:00 Room Air 05/18/18 20:00 98.6 125 24 140/70 (93) 99 05/18/18 19:49 112 18 Room Air 21 05/18/18 16:00 98.3 113 21 124/84 (97) 99 05/18/18 16:00 123 05/18/18 16:00 Room Air Intake and Output 05/18/18 05/19/18 18:59 06:59 Intake Total 1573.334 ml 110 ml Output Total 250 ml 350 ml Balance 1323.334 ml -240 ml Intake Oral 600 ml IV Total 973.334 ml 110 ml Output Urine Total 250 ml 350 ml # Voids 1 # Bowel Movements 2 1 Laboratory Tests Test 05/19/18 03:50 05/19/18 11:50 White Blood Count 13.6 K/UL (4.8-10.8) H Red Blood Count 3.76 M/UL (4.70-6.10) L Hemoglobin 11.1 G/DL (14.2-18.0) L Hematocrit 34.0 % (42.0-52.0) L Mean Corpuscular Volume 90 FL (80-99) Mean Corpuscular Hemoglobin 29.4 PG (27.0-31.0) Mean Corpuscular Hemoglobin Concent 32.6 G/DL (32.0-36.0) Red Cell Distribution Width 12.7 % (11.6-14.8) Platelet Count 279 K/UL (150-450) Mean Platelet Volume 5.5 FL (6.5-10.1) L Neutrophils (%) (Auto) 78.4 % (45.0-75.0) H Lymphocytes (%) (Auto) 11.4 % (20.0-45.0) L Monocytes (%) (Auto) 8.5 % (1.0-10.0) Eosinophils (%) (Auto) 1.3 % (0.0-3.0) Basophils (%) (Auto) 0.4 % (0.0-2.0) Erythrocyte Sedimentation Rate 80 MM/HR (0-20) H Sodium Level 138 MMOL/L (136-145) Potassium Level 3.7 MMOL/L (3.5-5.1) Chloride Level 108 MMOL/L (98-107) H Carbon Dioxide Level 24 MMOL/L (21-32) Anion Gap 6 mmol/L (5-15) Blood Urea Nitrogen 16 mg/dL (7-18) Creatinine 0.6 MG/DL (0.55-1.30) Estimat Glomerular Filtration Rate > 60 mL/min (>60) Glucose Level 94 MG/DL (74-106) Calcium Level 7.8 MG/DL (8.5-10.1) L Phosphorus Level 1.8 MG/DL (2.5-4.9) L Magnesium Level 1.6 MG/DL (1.8-2.4) L Total Bilirubin 0.7 MG/DL (0.2-1.0) Aspartate Amino Transf (AST/SGOT) 51 U/L (15-37) H Alanine Aminotransferase (ALT/SGPT) 24 U/L (12-78) Alkaline Phosphatase 132 U/L (46-116) H C-Reactive Protein, Quantitative 6.5 mg/dL (0.00-0.90) H Total Protein 6.0 G/DL (6.4-8.2) L Albumin 1.1 G/DL (3.4-5.0) L Globulin 4.9 g/dL Albumin/Globulin Ratio 0.2 (1.0-2.7) L Vancomycin Level Trough 14.8 ug/mL (5.0-12.0) H Prothrombin Time 12.4 SEC (9.30-11.50) H Prothromb Time International Ratio 1.2 (0.9-1.1) H Activated Partial Thromboplast Time 34 SEC (23-33) H Objective HEAD AND NECK: Mild JVD. LUNGS: Coarse rhonchi. CARDIOVASCULAR: Irregular S1 and S2 with no murmur. ABDOMEN: Soft. EXTREMITIES: Bilateral leg ulcers Amandeep Arora MD May 19, 2018 12:45
[2018-05-19] MEDS ORDERED: Sodium Phosphate 30 MM in NS 275 ML IV ONE (13:00)
--- NOTE | 2018-05-19 14:03 | General Progress Note ---
Assessment/Plan Problem List: (1) Bipolar disorder ICD Codes: F31.9 - Bipolar disorder, unspecified SNOMED: 39163425 (2) encephalopathy Status: stable, progressing Assessment/Plan dc abilify start seroquel the pt lacks capacity to make decisions Subjective 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: Reports: anxiety, depressed, emotional problems Allergies: Coded Allergies: MILK (Verified Allergy, Unknown, 02/02/18) Subjective the pt mental condition is improved and he is less confused. Objective Last 24 Hour Vital Signs Date Time Temp Pulse Resp B/P (MAP) Pulse Ox O2 Delivery O2 Flow Rate FiO2 05/19/18 09:50 66 20 Room Air 21 05/19/18 08:51 126 05/19/18 08:49 126 121/91 05/19/18 08:00 129 05/19/18 08:00 97.8 120 20 127/91 (103) 95 05/19/18 04:00 Room Air 05/19/18 04:00 97.7 100 20 126/89 (101) 97 05/19/18 04:00 114 05/19/18 00:00 Room Air 05/19/18 00:00 69 05/19/18 00:00 98.7 70 24 100/60 (73) 94 05/18/18 20:32 125 140/70 05/18/18 20:00 129 05/18/18 20:00 Room Air 05/18/18 20:00 98.6 125 24 140/70 (93) 99 05/18/18 19:49 112 18 Room Air 21 05/18/18 16:00 98.3 113 21 124/84 (97) 99 05/18/18 16:00 123 05/18/18 16:00 Room Air Intake and Output 05/18/18 05/19/18 18:59 06:59 Intake Total 1573.334 ml 110 ml Output Total 250 ml 350 ml Balance 1323.334 ml -240 ml Intake Oral 600 ml IV Total 973.334 ml 110 ml Output Urine Total 250 ml 350 ml # Voids 1 # Bowel Movements 2 1 Laboratory Tests 05/19/18 03:50: White Blood Count 13.6H, Red Blood Count 3.76L, Hemoglobin 11.1L, Hematocrit 34.0L, Mean Corpuscular Volume 90, Mean Corpuscular Hemoglobin 29.4, Mean Corpuscular Hemoglobin Concent 32.6, Red Cell Distribution Width 12.7, Platelet Count 279, Mean Platelet Volume 5.5L, Neutrophils (%) (Auto) 78.4H, Lymphocytes (%) (Auto) 11.4L, Monocytes (%) (Auto) 8.5, Eosinophils (%) (Auto) 1.3, Basophils (%) (Auto) 0.4, Erythrocyte Sedimentation Rate 80H, Sodium Level 138, Potassium Level 3.7, Chloride Level 108H, Carbon Dioxide Level 24, Anion Gap 6, Blood Urea Nitrogen 16, Creatinine 0.6, Estimat Glomerular Filtration Rate > 60 , Glucose Level 94, Calcium Level 7.8L, Phosphorus Level 1.8L, Magnesium Level 1.6L, Total Bilirubin 0.7, Aspartate Amino Transf (AST/SGOT) 51H, Alanine Aminotransferase (ALT/SGPT) 24, Alkaline Phosphatase 132H, C-Reactive Protein, Quantitative 6.5H, Total Protein 6.0L, Albumin 1.1L, Globulin 4.9, Albumin/ Globulin Ratio 0.2L, Vancomycin Level Trough 14.8H 05/19/18 11:50: Prothrombin Time 12.4H, Prothromb Time International Ratio 1.2H, Activated Partial Thromboplast Time 34H Height (Feet): 6 Height (Inches): 5.00 Weight (Pounds): 207 General Appearance: no apparent distress, alert Neurologic: oriented x 3, responsive, depressed affect Julissa Still MD May 19, 2018 14:03
--- NOTE | 2018-05-19 14:56 | General Progress Note ---
Progress Note Progress Note Bioethics Committee Asked by Dr. Ramirez to comment on this [patient who has both legs nonviable and needs AK amputations. His mental status has fluctuated. Today I am told by the nurse that he is relatively clear. He indicated to me that he was agreeable to amputations early next week but wanted more opportunity to get questions answered by Dr. Ramirez. His daughter Mireya Hart has been in touch with him by phone and in touch with case management/social work. She is his closest relative, understands his dire situation and agrees to the procedure. Under the circumstances it is appropriate to proceed. It is not likely that he understands all the implications of the surgery because of his fluctuating mental status. Without the surgery he would like succumb to sepsis. The consent of his daughter is appropriate and satisfactory. Chetan Delgado M.D. Chetan Delgado MD May 19, 2018 14:56
[2018-05-19 16:00] VITALS: BP_SYST 108; BP_SYST 124; BP_SYST 154; BP_DIAS 71; BP_DIAS 73; BP_DIAS 75
--- NOTE | 2018-05-19 16:11 | Anethesia Preoperative Eval ---
Anesthesia Pre-op PMH/ROS General Date of Evaluation: May 19, 2018 Time of Evaluation: 15:31 Anesthesiologist: Shraddha ASA Score: ASA 4 Mallampati Score Class I : Soft palate, uvula, fauces, pillars visible Class II: Soft palate, uvula, fauces visible Class III: Soft palate, base of uvula visible Class IV: Only hard plate visible Mallampati Classification: Class III Surgeon: Enrrique Diagnosis: Bilateral Lower Extremity Ulcers Surgical Procedure: Bilateral BKA Anesthesia History: none Social History: drug use - Abuse Family History: no anesthesia problems Allergies: Coded Allergies: MILK (Verified Allergy, Unknown, 02/02/18) Medications: see eMAR Patient NPO?: Yes Past Medical History Cardiovascular: Reports: HTN, CAD - CHF, arrhythmia - AFib Gastrointestinal/Genitourinary: Reports: other - AKF Dialysis 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: Reports: CVA, other - Bipolar Hematology/Immune: Reports: anemia Anesthesia Pre-op Phys. Exam Physician Exam Last Vital Signs Date Time Temp Pulse Resp B/P (MAP) Pulse Ox O2 Delivery O2 Flow Rate FiO2 05/19/18 12:00 64 05/19/18 12:00 97.6 20 105/62 (76) 94 05/19/18 12:00 Room Air 05/19/18 09:50 21 Constitutional: NAD Neurologic: CN 2-12 intact Cardiovascular: RRR Respiratory: CTA Gastrointestinal: S/NT/ND Airway Exam Mallampati Score: Class III MO: limited ROM: limited Teeth: missing Anesthesia Pre-op A/P Labs Hematology Test 05/19/18 03:50 White Blood Count 13.6 K/UL (4.8-10.8) H Red Blood Count 3.76 M/UL (4.70-6.10) L Hemoglobin 11.1 G/DL (14.2-18.0) L Hematocrit 34.0 % (42.0-52.0) L Mean Corpuscular Volume 90 FL (80-99) Mean Corpuscular Hemoglobin 29.4 PG (27.0-31.0) Mean Corpuscular Hemoglobin Concent 32.6 G/DL (32.0-36.0) Red Cell Distribution Width 12.7 % (11.6-14.8) Platelet Count 279 K/UL (150-450) Mean Platelet Volume 5.5 FL (6.5-10.1) L Neutrophils (%) (Auto) 78.4 % (45.0-75.0) H Lymphocytes (%) (Auto) 11.4 % (20.0-45.0) L Monocytes (%) (Auto) 8.5 % (1.0-10.0) Eosinophils (%) (Auto) 1.3 % (0.0-3.0) Basophils (%) (Auto) 0.4 % (0.0-2.0) Erythrocyte Sedimentation Rate 80 MM/HR (0-20) H Coagulation Test 05/19/18 11:50 Prothrombin Time 12.4 SEC (9.30-11.50) H Prothromb Time International Ratio 1.2 (0.9-1.1) H Activated Partial Thromboplast Time 34 SEC (23-33) H Chemistry Test 05/19/18 03:50 Sodium Level 138 MMOL/L (136-145) Potassium Level 3.7 MMOL/L (3.5-5.1) Chloride Level 108 MMOL/L (98-107) H Carbon Dioxide Level 24 MMOL/L (21-32) Anion Gap 6 mmol/L (5-15) Blood Urea Nitrogen 16 mg/dL (7-18) Creatinine 0.6 MG/DL (0.55-1.30) Estimat Glomerular Filtration Rate > 60 mL/min (>60) Glucose Level 94 MG/DL (74-106) Calcium Level 7.8 MG/DL (8.5-10.1) L Phosphorus Level 1.8 MG/DL (2.5-4.9) L Magnesium Level 1.6 MG/DL (1.8-2.4) L Total Bilirubin 0.7 MG/DL (0.2-1.0) Aspartate Amino Transf (AST/SGOT) 51 U/L (15-37) H Alanine Aminotransferase (ALT/SGPT) 24 U/L (12-78) Alkaline Phosphatase 132 U/L (46-116) H C-Reactive Protein, Quantitative 6.5 mg/dL (0.00-0.90) H Total Protein 6.0 G/DL (6.4-8.2) L Albumin 1.1 G/DL (3.4-5.0) L Globulin 4.9 g/dL Albumin/Globulin Ratio 0.2 (1.0-2.7) L Risk Assessment & Plan Assessment: ASA 4 Plan: GA Status Change Before Surgery: No Pre-Antibiotics Drug: Titus Michelle MD May 19, 2018 16:11
--- NOTE | 2018-05-19 18:07 | General Surgery Progress Note ---
General Surgery-Progress Note Subjective Additional Comments mental status much improved today. long discussion had at bedside with patient. states lots of pain from both legs just below knee at calf muscles. cannot feel distally. Objective Last 24 Hour Vital Signs Date Time Temp Pulse Resp B/P (MAP) Pulse Ox O2 Delivery O2 Flow Rate FiO2 05/19/18 16:13 69 05/19/18 16:00 98.0 78 20 124/71 (88) 95 05/19/18 16:00 Room Air 05/19/18 12:00 64 05/19/18 12:00 97.6 67 20 105/62 (76) 94 05/19/18 12:00 Room Air 05/19/18 09:50 66 20 Room Air 21 05/19/18 08:51 126 05/19/18 08:49 126 121/91 05/19/18 08:00 129 05/19/18 08:00 97.8 120 20 127/91 (103) 95 05/19/18 08:00 Room Air 05/19/18 04:00 Room Air 05/19/18 04:00 97.7 100 20 126/89 (101) 97 05/19/18 04:00 114 05/19/18 00:00 Room Air 05/19/18 00:00 69 05/19/18 00:00 98.7 70 24 100/60 (73) 94 05/18/18 20:32 125 140/70 05/18/18 20:00 129 05/18/18 20:00 Room Air 05/18/18 20:00 98.6 125 24 140/70 (93) 99 05/18/18 19:49 112 18 Room Air 21 I&O Intake and Output 05/18/18 05/19/18 18:59 06:59 Intake Total 1573.334 ml 110 ml Output Total 250 ml 350 ml Balance 1323.334 ml -240 ml Intake Oral 600 ml IV Total 973.334 ml 110 ml Output Urine Total 250 ml 350 ml # Voids 1 # Bowel Movements 2 1 Dressing: saturated Wound: other Drains: other Cardiovascular: RSR Respiratory: clear Abdomen: soft, flat, non-tender, present bowel sounds Extremities: other - please see wound care photos. no motor, neuro, sensory to feet and distal leg. multiple ulcerations. gangrene. no palpable pulses. contracture Laboratory Tests Test 05/19/18 03:50 05/19/18 11:50 White Blood Count 13.6 K/UL (4.8-10.8) H Red Blood Count 3.76 M/UL (4.70-6.10) L Hemoglobin 11.1 G/DL (14.2-18.0) L Hematocrit 34.0 % (42.0-52.0) L Mean Corpuscular Volume 90 FL (80-99) Mean Corpuscular Hemoglobin 29.4 PG (27.0-31.0) Mean Corpuscular Hemoglobin Concent 32.6 G/DL (32.0-36.0) Red Cell Distribution Width 12.7 % (11.6-14.8) Platelet Count 279 K/UL (150-450) Mean Platelet Volume 5.5 FL (6.5-10.1) L Neutrophils (%) (Auto) 78.4 % (45.0-75.0) H Lymphocytes (%) (Auto) 11.4 % (20.0-45.0) L Monocytes (%) (Auto) 8.5 % (1.0-10.0) Eosinophils (%) (Auto) 1.3 % (0.0-3.0) Basophils (%) (Auto) 0.4 % (0.0-2.0) Erythrocyte Sedimentation Rate 80 MM/HR (0-20) H Sodium Level 138 MMOL/L (136-145) Potassium Level 3.7 MMOL/L (3.5-5.1) Chloride Level 108 MMOL/L (98-107) H Carbon Dioxide Level 24 MMOL/L (21-32) Anion Gap 6 mmol/L (5-15) Blood Urea Nitrogen 16 mg/dL (7-18) Creatinine 0.6 MG/DL (0.55-1.30) Estimat Glomerular Filtration Rate > 60 mL/min (>60) Glucose Level 94 MG/DL (74-106) Calcium Level 7.8 MG/DL (8.5-10.1) L Phosphorus Level 1.8 MG/DL (2.5-4.9) L Magnesium Level 1.6 MG/DL (1.8-2.4) L Total Bilirubin 0.7 MG/DL (0.2-1.0) Aspartate Amino Transf (AST/SGOT) 51 U/L (15-37) H Alanine Aminotransferase (ALT/SGPT) 24 U/L (12-78) Alkaline Phosphatase 132 U/L (46-116) H C-Reactive Protein, Quantitative 6.5 mg/dL (0.00-0.90) H Total Protein 6.0 G/DL (6.4-8.2) L Albumin 1.1 G/DL (3.4-5.0) L Globulin 4.9 g/dL Albumin/Globulin Ratio 0.2 (1.0-2.7) L Vancomycin Level Trough 14.8 ug/mL (5.0-12.0) H Prothrombin Time 12.4 SEC (9.30-11.50) H Prothromb Time International Ratio 1.2 (0.9-1.1) H Activated Partial Thromboplast Time 34 SEC (23-33) H Plan Problems: (1) Sepsis Assessment & Plan: etiology of leukocytosis unknown will need further work up IV abx appreciate ID input trend labs Discussed findings with Vascular and Podiatry Agree that lower extremities are not salvageable. Would recommend bilateral AKA Need to contact family and discuss. Patient without capacity to make decision. Need to work on consent Needs POA or designated Next of Kin as proposed surgery is very invasive Spoke with two daughters. Sister is out of the country. Very long discussion about medical condition and care plan discussed clinical findings discussed radiological findings. discussed medical condition discussed multi-disciplinary team recommendations for AKA bilaterally daughters very reasonable and aware of his condition. eldest daughter states that she had a discussion with him 1 month about regarding amputation as it had been recommended prior. states that father had lower extremities amputated for similar reasons at similar age. spoke with family today. they had family discussion and expressed that they would like to proceed with surgery b/l AKA given above findings. I explained that sepsis is improved and surgery is no longer emergency but still recommended. Patient in better mental capacity today and after long discussion expressed he has been putting this off for some time now but understands and agrees to bilateral AKA daughter to fly in this plan for Surgery tuesday thank you (2) Decubitus skin ulcer Assessment & Plan: Patient well known to me. Has had chronic wounds on sacrum, buttock, and lower extremities. Prior had maggots in lower extremities treated with Dakins and wound care which are since resolved. Multiple pressure ulcers. Patient unable to participate in exam and care plan. Now presents with multiple ulcerations to both lower extremities. Wounds are irregular malodorous. Both lower ext. cool to touch. Toes necrotic with ulcerations 1st, 2nd and 3rd metatarsals ulcerated. Ulcers dorsal aspects of toes L foot.Web spaces of toes are dry . Full thickness pressure injury to sacrum with 60% slough,(+) epibole.Wound measures (L)7cm x (W)7.5cm x (D)2.5cm. Periwound dark .Wound malodorous. Right buttock and ischial tuberosity which are large and with eschar cap unstageable full thickness. both heels have DTI with blood blisters noted. Wounds have significantly deteriorated since last admission with new wounds noted on lower extremities and buttock. Areas of prior maggot infection are healing but still with wounds. Refer to wound care photos for details. Tx.Plan: Cleanse both lower ext wounds with NS . Skin protectant .Dakin's 0.25% moist gauze, Cover with ABD and wrap with soft chavez daily an dprn Apply Light dusting of [place] Starch or baby powder in web spaces of toes on feet Clean sacral decubitus and buttock ulcer with NS, apply skin protectant / honey gel, apply foam dressing daily and prn Air Fluidized mattress on bed ([id number]). Encourage and assist with repositioning at least every 2hours or as tolerated. Off-load heels with pillow. would appreciate Podiatry and Vascular consult as I dont anticipate lower extremity will be salvageable at this time. Recommend bilateral AKA. patient does not seem to have capacity. psych eval Duplex studies Goyo Osuna May 19, 2018 18:07
--- NOTE | 2018-05-19 18:10 | Infectious Diseases Prog Note ---
Assessment/Plan Assessment/Plan 68 yo male who was transferred from [place] where he initially presented for AMS from [facility]. Small lung cavitary lesion/ PNA- suspect likely to aspiration; lower suspicion for TB and/or fungal etiologies -CT c/a/p: 10 mm opacity in the peripheral anterolateral right upper lobe with small central cavitation. Patchy groundglass opacity in the posterior right upper lobe. Suspect that these represent inflammatory/infectious lesions, but neoplastic etiology of either is certainly possible. Large left and moderate right pleural effusions. Resultant compressive atelectasis of portions of the lower lobes. Equivocal distal esophageal wall thickening, could indicate esophagitis if real -sp cx p Sepsis 2/ to bacteremia (at OSH) Likely source is skin ulcer Blood Cx 05/12/18 at [place] -Bcx 05/12 and (here) NTD 2d echo: no vegetations 05/15 CXR: Right midlung nodule. Absence of this finding on previous study makes this more likely to be a focus of inflammation, but rapidly growing neoplasm not excludable. Left basilar hazy opacity. Most likely a moderate to large pleural effusion.Component of infiltrate or atelectasis is also possible 05/12 CXR: Asymmetric ill-defined confluent groundglass opacity within the left mid/inferior lung, of uncertain etiology. 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 Hypertension. Sacral decubitus ulcers. Bipolar disorder. Coronary artery disease. Plan - Continue Cefepime #8 and Vancomycin #8 pending Cx -Add PO Flagyl for anaerobic coverage -Airborne isolation -AFB sp cx x3,MTB PCR x1 -cocci ab, CrAg, fungal sp cx, T-spot - f/u Blood Cx - Wound care - Monitor CBC and Temps -f/u sp cx, u/a w/ reflex -Cdiff if diarrhea -Obtain records from [facility] for BCx results -Sx and podiatry f/u: recommend b/l AKA Thank you for this consult. We will continue to follow the patient during this hospitalization. Discussed withRN and Dr Osuna, Subjective Allergies: Coded Allergies: MILK (Verified Allergy, Unknown, 02/02/18) Subjective afebrile WBC improving CT chest with tiny lung cavitation family agreed to b/l AKA; plan for next week. Objective Vital Signs Last 24 Hour Vital Signs Date Time Temp Pulse Resp B/P (MAP) Pulse Ox O2 Delivery O2 Flow Rate FiO2 05/19/18 16:13 69 05/19/18 16:00 98.0 78 20 124/71 (88) 95 05/19/18 16:00 Room Air 05/19/18 12:00 64 05/19/18 12:00 97.6 67 20 105/62 (76) 94 05/19/18 12:00 Room Air 05/19/18 09:50 66 20 Room Air 21 05/19/18 08:51 126 05/19/18 08:49 126 121/91 05/19/18 08:00 129 05/19/18 08:00 97.8 120 20 127/91 (103) 95 05/19/18 08:00 Room Air 05/19/18 04:00 Room Air 05/19/18 04:00 97.7 100 20 126/89 (101) 97 05/19/18 04:00 114 05/19/18 00:00 Room Air 05/19/18 00:00 69 05/19/18 00:00 98.7 70 24 100/60 (73) 94 05/18/18 20:32 125 140/70 05/18/18 20:00 129 05/18/18 20:00 Room Air 05/18/18 20:00 98.6 125 24 140/70 (93) 99 05/18/18 19:49 112 18 Room Air 21 Height (Feet): 6 Height (Inches): 5.00 Weight (Pounds): 207 Objective Gen: NAD. Mumbling HEENT: NCAT, MMM, EOMI, No Oral lesion, no scleral icterus NECK: full range of motion, supple, no meningismus, No LAD, No JVD LUNGS: CTAB, No W/C, No Accessory muscle use CARDS: RRR, S1, S2, No M/R/G ABD: Soft, NT, ND, No R/G, + BS, No HSM, No Masses : Deferred Ext: C/C/E, Pulses 2+ B/L (DP, Rad) NEURO: A/O x 0, Strength and Sensation Grossly intact PSYCH: mood/affect normal SKIN: Left foot wound. No purulent drainage, Feet now bandaged Laboratory Tests Test 05/19/18 03:50 05/19/18 11:50 White Blood Count 13.6 K/UL (4.8-10.8) H Red Blood Count 3.76 M/UL (4.70-6.10) L Hemoglobin 11.1 G/DL (14.2-18.0) L Hematocrit 34.0 % (42.0-52.0) L Mean Corpuscular Volume 90 FL (80-99) Mean Corpuscular Hemoglobin 29.4 PG (27.0-31.0) Mean Corpuscular Hemoglobin Concent 32.6 G/DL (32.0-36.0) Red Cell Distribution Width 12.7 % (11.6-14.8) Platelet Count 279 K/UL (150-450) Mean Platelet Volume 5.5 FL (6.5-10.1) L Neutrophils (%) (Auto) 78.4 % (45.0-75.0) H Lymphocytes (%) (Auto) 11.4 % (20.0-45.0) L Monocytes (%) (Auto) 8.5 % (1.0-10.0) Eosinophils (%) (Auto) 1.3 % (0.0-3.0) Basophils (%) (Auto) 0.4 % (0.0-2.0) Erythrocyte Sedimentation Rate 80 MM/HR (0-20) H Sodium Level 138 MMOL/L (136-145) Potassium Level 3.7 MMOL/L (3.5-5.1) Chloride Level 108 MMOL/L (98-107) H Carbon Dioxide Level 24 MMOL/L (21-32) Anion Gap 6 mmol/L (5-15) Blood Urea Nitrogen 16 mg/dL (7-18) Creatinine 0.6 MG/DL (0.55-1.30) Estimat Glomerular Filtration Rate > 60 mL/min (>60) Glucose Level 94 MG/DL (74-106) Calcium Level 7.8 MG/DL (8.5-10.1) L Phosphorus Level 1.8 MG/DL (2.5-4.9) L Magnesium Level 1.6 MG/DL (1.8-2.4) L Total Bilirubin 0.7 MG/DL (0.2-1.0) Aspartate Amino Transf (AST/SGOT) 51 U/L (15-37) H Alanine Aminotransferase (ALT/SGPT) 24 U/L (12-78) Alkaline Phosphatase 132 U/L (46-116) H C-Reactive Protein, Quantitative 6.5 mg/dL (0.00-0.90) H Total Protein 6.0 G/DL (6.4-8.2) L Albumin 1.1 G/DL (3.4-5.0) L Globulin 4.9 g/dL Albumin/Globulin Ratio 0.2 (1.0-2.7) L Vancomycin Level Trough 14.8 ug/mL (5.0-12.0) H Prothrombin Time 12.4 SEC (9.30-11.50) H Prothromb Time International Ratio 1.2 (0.9-1.1) H Activated Partial Thromboplast Time 34 SEC (23-33) H Current Medications Medications (Trade) Dose Ordered Sig/Erlin Route PRN Reason Start Time Stop Time Status Last Admin Dose Admin Acetaminophen (Tylenol) 650 mg Q4H PRN ORAL Mild Pain/Temp > 100.5 05/18/18 08:45 06/11/18 12:34 05/18/18 21:28 Albuterol/ Ipratropium (Albuterol/ Ipratropium) 3 ml Q4H PRN HHN Shortness of Breath 05/18/18 09:00 05/22/18 08:59 Amiodarone HCl (Cordarone) 200 mg DAILY ORAL 05/20/18 09:00 06/17/18 08:59 Cefepime HCl 1 gm/ Dextrose 55 ml @ 110 mls/hr EVERY 12 HOURS IVPB 05/18/18 09:00 05/19/18 20:59 05/19/18 09:22 Digoxin (Lanoxin) 0.125 mg DAILY ORAL 05/18/18 09:00 06/12/18 08:59 05/19/18 08:51 Enoxaparin Sodium (Lovenox) 100 mg EVERY 12 HOURS SUBQ 05/19/18 21:00 06/18/18 20:59 Gabapentin (Neurontin) 100 mg THREE TIMES A DAY ORAL 05/18/18 09:00 06/11/18 17:59 05/19/18 12:29 Metoprolol Tartrate (Lopressor) 50 mg Q12HR ORAL 05/18/18 09:00 06/11/18 20:59 05/19/18 08:49 Morphine Sulfate (Morphine Sulfate) 2 mg Q4H PRN IVP pain 4-10 05/19/18 14:15 05/26/18 14:14 05/19/18 14:25 Polyethylene Glycol (Miralax) 17 gm DAILY ORAL 05/18/18 09:00 06/16/18 10:59 05/18/18 08:25 Potassium Chloride 10 meq/ Dextrose/Sodium Chloride 1,005 ml @ 75 mls/hr [id number] IV 05/18/18 05:30 06/12/18 14:59 05/19/18 08:52 Quetiapine Fumarate (SEROquel) 100 mg BEDTIME ORAL 05/18/18 21:00 06/11/18 20:59 05/18/18 20:31 Sodium Hypochlorite (Dakin's Quarter Strength) 1 applic DAILY TOPIC 05/18/18 09:00 06/12/18 14:18 05/19/18 09:05 Sodium Phosphate 30 mm/Sodium Chloride 285 ml @ 47.5 mls/hr ONCE ONCE IV 05/19/18 13:00 05/19/18 18:59 05/19/18 14:06 Vancomycin HCl (Vanco rx to dose) 1 ea DAILY PRN MISC Per rx protocol 05/18/18 09:00 06/11/18 14:59 Vancomycin/Sodium Chloride 250 ml @ 166.667 mls/hr Q8H IVPB 05/18/18 13:00 05/24/18 12:59 05/19/18 12:28 Alma Elkins M.D. May 19, 2018 18:10
--- NOTE | 2018-05-19 18:13 | Internal Med Progress Note ---
Subjective Date of Service: May 19, 2018 Physician Name Daniel Jackson Attending Physician Pedro Caban MD Current Medications Medications (Trade) Dose Ordered Sig/Erlin Route PRN Reason Start Time Stop Time Status Last Admin Dose Admin Acetaminophen (Tylenol) 650 mg Q4H PRN ORAL Mild Pain/Temp > 100.5 05/18/18 08:45 06/11/18 12:34 05/19/18 18:07 Albuterol/ Ipratropium (Albuterol/ Ipratropium) 3 ml Q4H PRN HHN Shortness of Breath 05/18/18 09:00 05/22/18 08:59 Amiodarone HCl (Cordarone) 200 mg DAILY ORAL 05/20/18 09:00 06/17/18 08:59 Cefepime HCl 1 gm/ Dextrose 55 ml @ 110 mls/hr EVERY 12 HOURS IVPB 05/18/18 09:00 05/19/18 20:59 05/19/18 09:22 Digoxin (Lanoxin) 0.125 mg DAILY ORAL 05/18/18 09:00 06/12/18 08:59 05/19/18 08:51 Enoxaparin Sodium (Lovenox) 100 mg EVERY 12 HOURS SUBQ 05/19/18 21:00 06/18/18 20:59 Gabapentin (Neurontin) 100 mg THREE TIMES A DAY ORAL 05/18/18 09:00 06/11/18 17:59 05/19/18 18:07 Metoprolol Tartrate (Lopressor) 50 mg Q12HR ORAL 05/18/18 09:00 06/11/18 20:59 05/19/18 08:49 Metronidazole (Flagyl) 500 mg Q8H ORAL 05/19/18 18:00 05/26/18 17:59 Morphine Sulfate (Morphine Sulfate) 2 mg Q4H PRN IVP pain 4-10 05/19/18 14:15 05/26/18 14:14 05/19/18 14:25 Polyethylene Glycol (Miralax) 17 gm DAILY ORAL 05/18/18 09:00 06/16/18 10:59 05/18/18 08:25 Potassium Chloride 10 meq/ Dextrose/Sodium Chloride 1,005 ml @ 75 mls/hr [id number] IV 05/18/18 05:30 06/12/18 14:59 05/19/18 08:52 Quetiapine Fumarate (SEROquel) 100 mg BEDTIME ORAL 05/18/18 21:00 06/11/18 20:59 05/18/18 20:31 Sodium Hypochlorite (Dakin's Quarter Strength) 1 applic DAILY TOPIC 05/18/18 09:00 06/12/18 14:18 05/19/18 09:05 Sodium Phosphate 30 mm/Sodium Chloride 285 ml @ 47.5 mls/hr ONCE ONCE IV 05/19/18 13:00 05/19/18 18:59 05/19/18 14:06 Vancomycin HCl (Vanco rx to dose) 1 ea DAILY PRN MISC Per rx protocol 05/18/18 09:00 06/11/18 14:59 Vancomycin/Sodium Chloride 250 ml @ 166.667 mls/hr Q8H IVPB 05/18/18 13:00 05/24/18 12:59 05/19/18 12:28 Allergies: Coded Allergies: MILK (Verified Allergy, Unknown, 02/02/18) ROS Limited/Unobtainable: No Constitutional: Reports: no symptoms HEENT: Reports: no symptoms Cardiovascular: Reports: no symptoms Respiratory: Reports: no symptoms Gastrointestinal/Abdominal: Reports: no symptoms Genitourinary: Reports: no symptoms 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: Reports: no symptoms Subjective 68 YO A M admitted with altered mental status. Now sepsis and atrial fibrillation with rapid rate. Cover for Int [facility]-Dr Caban. LILIBETH. Scheduled for bilateral above the knee amputation 05/22/18 Objective Last Vital Signs Date Time Temp Pulse Resp B/P (MAP) Pulse Ox O2 Delivery O2 Flow Rate FiO2 05/19/18 16:13 69 05/19/18 16:00 98.0 20 124/71 (88) 95 05/19/18 16:00 Room Air 05/19/18 09:50 21 Laboratory Tests Test 05/19/18 03:50 05/19/18 11:50 White Blood Count 13.6 K/UL (4.8-10.8) H Red Blood Count 3.76 M/UL (4.70-6.10) L Hemoglobin 11.1 G/DL (14.2-18.0) L Hematocrit 34.0 % (42.0-52.0) L Mean Corpuscular Volume 90 FL (80-99) Mean Corpuscular Hemoglobin 29.4 PG (27.0-31.0) Mean Corpuscular Hemoglobin Concent 32.6 G/DL (32.0-36.0) Red Cell Distribution Width 12.7 % (11.6-14.8) Platelet Count 279 K/UL (150-450) Mean Platelet Volume 5.5 FL (6.5-10.1) L Neutrophils (%) (Auto) 78.4 % (45.0-75.0) H Lymphocytes (%) (Auto) 11.4 % (20.0-45.0) L Monocytes (%) (Auto) 8.5 % (1.0-10.0) Eosinophils (%) (Auto) 1.3 % (0.0-3.0) Basophils (%) (Auto) 0.4 % (0.0-2.0) Erythrocyte Sedimentation Rate 80 MM/HR (0-20) H Sodium Level 138 MMOL/L (136-145) Potassium Level 3.7 MMOL/L (3.5-5.1) Chloride Level 108 MMOL/L (98-107) H Carbon Dioxide Level 24 MMOL/L (21-32) Anion Gap 6 mmol/L (5-15) Blood Urea Nitrogen 16 mg/dL (7-18) Creatinine 0.6 MG/DL (0.55-1.30) Estimat Glomerular Filtration Rate > 60 mL/min (>60) Glucose Level 94 MG/DL (74-106) Calcium Level 7.8 MG/DL (8.5-10.1) L Phosphorus Level 1.8 MG/DL (2.5-4.9) L Magnesium Level 1.6 MG/DL (1.8-2.4) L Total Bilirubin 0.7 MG/DL (0.2-1.0) Aspartate Amino Transf (AST/SGOT) 51 U/L (15-37) H Alanine Aminotransferase (ALT/SGPT) 24 U/L (12-78) Alkaline Phosphatase 132 U/L (46-116) H C-Reactive Protein, Quantitative 6.5 mg/dL (0.00-0.90) H Total Protein 6.0 G/DL (6.4-8.2) L Albumin 1.1 G/DL (3.4-5.0) L Globulin 4.9 g/dL Albumin/Globulin Ratio 0.2 (1.0-2.7) L Vancomycin Level Trough 14.8 ug/mL (5.0-12.0) H Prothrombin Time 12.4 SEC (9.30-11.50) H Prothromb Time International Ratio 1.2 (0.9-1.1) H Activated Partial Thromboplast Time 34 SEC (23-33) H Intake and Output 05/18/18 05/19/18 18:59 06:59 Intake Total 1573.334 ml 110 ml Output Total 250 ml 350 ml Balance 1323.334 ml -240 ml Intake Oral 600 ml IV Total 973.334 ml 110 ml Output Urine Total 250 ml 350 ml # Voids 1 # Bowel Movements 2 1 Objective General Appearance: alert, thin, agitated EENT: PERRL/EOMI, normal ENT inspection Neck: non-tender, normal alignment, supple, normal inspection Cardiovascular: normal peripheral pulses, normal rate, no gallop/murmur, no JVD , irregularly irregular Respiratory/Chest: chest wall non-tender, lungs clear, normal breath sounds, no respiratory distress, no accessory muscle use Abdomen: normal bowel sounds, non tender, soft, no organomegaly, no mass Extremities: normal range of motion, non-tender 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 D/C eliquis ; change to lovenox prior to surgery (3) Hypertension Assessment & Plan: continue metoprolol (4) CAD (coronary artery disease) (5) Bipolar disorder (6) Fever (7) Decubitus skin ulcer Assessment & Plan: Bilateral above the knee amputation scheduled for Tue-see surgery consult. (8) Sepsis Assessment & Plan: Continue antibiotic per ID (9) UTI (urinary tract infection) Assessment & Plan: Mixed culture-continue vanco and cefepime per ID (10) Leukocytosis (11) Deep venous thrombosis of right femoral vein Assessment & Plan: D/C eliquis. Start lovenox SQ; D/C lovenox on Tuesday prior to surgery Status: not improved Daniel Jackson MD May 19, 2018 18:13
[2018-05-19] MEDS: metroNIDAZOLE 500mg tab ORAL SCH (18:45)
[2018-05-19 20:00] VITALS: BP 129/77
[2018-05-19] MEDS: Enoxaparin 100mg Inj SUBQ SCH (21:23)
[2018-05-19] MEDS ORDERED: Tubing IV Secondary IV ONE ×2 (22:19→22:20)
[2018-05-19] MEDS ORDERED: NS 275ml ONE (22:19)
[2018-05-20] VITALS: BP 124/73
[2018-05-20] MEDS: metroNIDAZOLE 500mg tab ORAL SCH ×3 (01:32→18:07)
[2018-05-20 04:00] VITALS: BP 131/78
[2018-05-20] MEDS: Morphine Sulfate 2mg/ml Inj IVP PRN ×3 (04:11→22:18)
[2018-05-20 04:58] LABS: BASOPHILS % (AUTO) 0.8 % (0.0-2.0); EOSINOPHILS % (AUTO) 1.5 % (0.0-3.0); HEMATOCRIT 33.7 % (42.0-52.0); HEMOGLOBIN 10.9 G/DL (14.2-18.0); LYMPHOCYTES % (AUTO) 16.6 % (20.0-45.0); MEAN CORPUSCULAR VOLUME 90 FL (80-99); MONOCYTES % (AUTO) 9.6 % (1.0-10.0); NEUTROPHILS % (AUTO) 71.5 % (45.0-75.0); PLATELET COUNT 290 K/UL (150-450); RED BLOOD COUNT 3.74 M/UL (4.70-6.10); RED CELL DISTRIBUTION WIDTH 12.8 % (11.6-14.8); WHITE BLOOD COUNT 11.8 K/UL (4.8-10.8)
[2018-05-20] MEDS: Vancomycin 750mg/NS 250ml 250 ML IVPB SCH ×3 (05:01→20:49)
[2018-05-20 05:18] LABS: ALANINE AMINOTRANSFERASE 23 U/L (12-78); ALBUMIN 1.1 G/DL (3.4-5.0); ALBUMIN/GLOBULIN RATIO 0.2 (1.0-2.7); ALKALINE PHOSPHATASE 131 U/L (46-116); ANION GAP 7 mmol/L (5-15); ASPARTATE AMINO TRANSFERASE 40 U/L (15-37); BILIRUBIN,TOTAL 0.4 MG/DL (0.2-1.0); BLOOD UREA NITROGEN 19 mg/dL (7-18); CALCIUM 7.7 MG/DL (8.5-10.1); CARBON DIOXIDE 24 MMOL/L (21-32); CHLORIDE 107 MMOL/L (98-107); CREATININE 0.6 MG/DL (0.55-1.30); PHOSPHORUS 2.2 MG/DL (2.5-4.9); POTASSIUM 3.9 MMOL/L (3.5-5.1); SODIUM 138 MMOL/L (136-145)
--- NOTE | 2018-05-20 07:57 | Pulmonology Progress Note ---
Assessment/Plan Assessment/Plan ASSESSMENT Sepsis secondary to bacteremia /GPC likely due to necrotic ulcers BLE Bilateral necrotic foot wounds and gangrenous lesions with right calf necrotic tendon with severe knee contracture, Severe multi-level calcific arterial occlusive disease Small lung cavitary lesion/ likely PNA due to aspiration; (low suspicion for TB and/or fungal etiologies) Bilateral pleural effusion Acute encephalopathy, likely secondary to sepsis Atrial fibrillation with rapid ventricular response Borderline hypotension- resolved Acute DVT R SFV Hypertension Coronary artery disease History of CVA Dementia Bipolar disorder protein calorie malnutrition PLAN OF CARE LILIBETH O2 prn to keep sat above 92, pulmonary toilet prn CT C/A/P noted small lung cavitary lesion probably due to PNA- per ID ; likely due to aspiration, lower suspicion for TB and fungal etiology cocci and crypto serology pending TB spot pending AFB x 3 PPD airborne isolation for now - bilateral pleural effusion with resulting compressive atelectasis thoracentesis pending CXR in am rate control with BB and digoxin , continue Amiodarone anticoagulation with Eliquis (for A fib and acute DVT R SFV) cardio follows hypotension resolved , possibly was due to sepsis, off midodrine ECHO with pEF 60-65% and RVSP of 45 c/w mod pulm HTN vasc surgery and podiatry eval appreciated per vasc surgery legs not salvageable and pt will need bilateral AKA wound care 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 lipid 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 with borderline TG, low fat low cholesterol diet abx , ID follows blood cx in [place] + GPC BC repeated at [facility] negative urine cx + mixed GPO, sputum not colleceted wound care as per surgery recs surgery planned fro 05/22 bilateral AKA ( daughter in agreement), bioethics recommendations noted and appreciated PT/OT/ST psych meds resumed recommend psych eval supportive care bowel regimen diet eval re nutritional supplements pain management prn case discussed and evaluated by supervising physician Subjective Allergies: Coded Allergies: MILK (Verified Allergy, Unknown, 02/02/18) Subjective leukocytosis trending down, afebrile bilateral AKA scheduled fpr 05/22 Objective Last 24 Hour Vital Signs Date Time Temp Pulse Resp B/P (MAP) Pulse Ox O2 Delivery O2 Flow Rate FiO2 05/20/18 04:00 Room Air 05/20/18 04:00 93 05/20/18 04:00 98.4 70 20 131/78 (95) 99 05/20/18 00:00 71 05/20/18 00:00 97.7 71 20 124/73 (90) 97 05/20/18 00:00 Room Air 05/19/18 21:22 87 129/77 05/19/18 20:00 Room Air 05/19/18 20:00 98.4 87 20 129/77 (94) 97 05/19/18 20:00 87 05/19/18 19:52 74 18 Room Air 21 05/19/18 16:13 69 05/19/18 16:00 98.0 78 20 124/71 (88) 95 05/19/18 16:00 Room Air 05/19/18 12:00 64 05/19/18 12:00 97.6 67 20 105/62 (76) 94 05/19/18 12:00 Room Air 05/19/18 09:50 66 20 Room Air 21 05/19/18 08:51 126 05/19/18 08:49 126 121/91 05/19/18 08:00 129 05/19/18 08:00 97.8 120 20 127/91 (103) 95 05/19/18 08:00 Room Air Intake and Output 05/19/18 05/20/18 19:00 07:00 Intake Total 2820.000 ml 768.75 ml Output Total 400 ml 800 ml Balance 2420.000 ml -31.25 ml Intake Oral 1440 ml 240 ml IV Total 1380.000 ml 528.75 ml Output Urine Total 400 ml 800 ml # Bowel Movements 1 Objective General Appearance: no apparent distress, awake, confused HEENT: normocephalic, atraumatic, anicteric Neck: supple Respiratory/Chest: few scattered rhonchi , mild JVD Cardiovascular/Chest: irregularly irregular - pacing rhythm, simultaneously interchanging SR with frequent PVCs and AF, rate controlled Abdomen: normal bowel sounds, non tender, soft Extremities: no edema bilateral necrotic foot wounds and gangrenous lesions, absent pedal pulses Neurologic: abnormal gait, awake, confused Musculoskeletal: atrophy - BLE Laboratory Tests 05/19/18 11:50: Prothrombin Time 12.4H, Prothromb Time International Ratio 1.2H, Activated Partial Thromboplast Time 34H 05/20/18 04:20: White Blood Count 11.8H, Red Blood Count 3.74L, Hemoglobin 10.9L, Hematocrit 33.7L, Mean Corpuscular Volume 90, Mean Corpuscular Hemoglobin 29.2, Mean Corpuscular Hemoglobin Concent 32.4, Red Cell Distribution Width 12.8, Platelet Count 290, Mean Platelet Volume 5.2L, Neutrophils (%) (Auto) 71.5, Lymphocytes ( %) (Auto) 16.6L, Monocytes (%) (Auto) 9.6, Eosinophils (%) (Auto) 1.5, Basophils (%) (Auto) 0.8, Erythrocyte Sedimentation Rate 67H, Sodium Level 138, Potassium Level 3.9, Chloride Level 107, Carbon Dioxide Level 24, Anion Gap 7, Blood Urea Nitrogen 19H, Creatinine 0.6, Estimat Glomerular Filtration Rate > 60 , Glucose Level 96, Calcium Level 7.7L, Phosphorus Level 2.2L, Magnesium Level 1.7L, Total Bilirubin 0.4, Aspartate Amino Transf (AST/SGOT) 40H, Alanine Aminotransferase (ALT/SGPT) 23, Alkaline Phosphatase 131H, C-Reactive Protein, Quantitative 6.0H, Total Protein 6.0L, Albumin 1.1L, Globulin 4.9, Albumin/ Globulin Ratio 0.2L, Coccidioides Antibody (Comp Fix) [Pending], Cryptococcus Antigen [Pending] Current Medications Medications (Trade) Dose Ordered Sig/Erlin Route PRN Reason Start Time Stop Time Status Last Admin Dose Admin Acetaminophen (Tylenol) 650 mg Q4H PRN ORAL Mild Pain/Temp > 100.5 05/18/18 08:45 06/11/18 12:34 05/20/18 05:02 Albuterol/ Ipratropium (Albuterol/ Ipratropium) 3 ml Q4H PRN HHN Shortness of Breath 05/18/18 09:00 05/22/18 08:59 Amiodarone HCl (Cordarone) 200 mg DAILY ORAL 05/20/18 09:00 06/17/18 08:59 Digoxin (Lanoxin) 0.125 mg DAILY ORAL 05/18/18 09:00 06/12/18 08:59 05/19/18 08:51 Enoxaparin Sodium (Lovenox) 100 mg EVERY 12 HOURS SUBQ 05/19/18 21:00 06/18/18 20:59 05/19/18 21:23 Gabapentin (Neurontin) 100 mg THREE TIMES A DAY ORAL 05/18/18 09:00 06/11/18 17:59 05/19/18 18:07 Metoprolol Tartrate (Lopressor) 50 mg Q12HR ORAL 05/18/18 09:00 06/11/18 20:59 05/19/18 21:22 Metronidazole (Flagyl) 500 mg Q8H ORAL 05/19/18 18:00 05/26/18 17:59 05/20/18 01:32 Morphine Sulfate (Morphine Sulfate) 2 mg Q4H PRN IVP pain 4-10 05/19/18 14:15 05/26/18 14:14 05/20/18 04:11 Polyethylene Glycol (Miralax) 17 gm DAILY ORAL 05/18/18 09:00 06/16/18 10:59 05/18/18 08:25 Potassium Chloride 10 meq/ Dextrose/Sodium Chloride 1,005 ml @ 75 mls/hr [id number] IV 05/18/18 05:30 06/12/18 14:59 05/19/18 22:17 Quetiapine Fumarate (SEROquel) 100 mg BEDTIME ORAL 05/18/18 21:00 06/11/18 20:59 05/19/18 21:22 Sodium Hypochlorite (Dakin's Quarter Strength) 1 applic DAILY TOPIC 05/18/18 09:00 06/12/18 14:18 05/19/18 09:05 Vancomycin HCl (Vanco rx to dose) 1 ea DAILY PRN MISC Per rx protocol 05/18/18 09:00 06/11/18 14:59 Vancomycin/Sodium Chloride 250 ml @ 166.667 mls/hr Q8H IVPB 05/18/18 13:00 05/24/18 12:59 05/20/18 05:01 Linsey Boo NP May 20, 2018 07:57
[2018-05-20 08:00] VITALS: BP 123/61
[2018-05-20] MEDS: Amiodarone 200mg tab ORAL SCH (08:59)
[2018-05-20] MEDS: Metoprolol Tartrate 50mg tab ORAL SCH ×2 (08:59→20:50)
[2018-05-20] MEDS: Miralax 17gm pkt ORAL SCH (09:00)
[2018-05-20] MEDS: Digoxin 0.125mg tab ORAL SCH (09:00)
[2018-05-20] MEDS: Enoxaparin 100mg Inj SUBQ SCH ×2 (09:11→20:44)
--- NOTE | 2018-05-20 11:54 | Infectious Diseases Prog Note ---
Assessment/Plan Assessment/Plan 68 yo male who was transferred from [place] where he initially presented for AMS from [facility]. Small lung cavitary lesion/ PNA- suspect likely to aspiration; lower suspicion for TB and/or fungal etiologies -CT c/a/p: 10 mm opacity in the peripheral anterolateral right upper lobe with small central cavitation. Patchy groundglass opacity in the posterior right upper lobe. Suspect that these represent inflammatory/infectious lesions, but neoplastic etiology of either is certainly possible. Large left and moderate right pleural effusions. Resultant compressive atelectasis of portions of the lower lobes. Equivocal distal esophageal wall thickening, could indicate esophagitis if real -sp cx p Sepsis 2/ to bacteremia (at OSH) Likely source is skin ulcer Blood Cx 05/12/18 at [place] [facility] -Bcx 05/12 and (here) NTD 2d echo: no vegetations 05/15 CXR: Right midlung nodule. Absence of this finding on previous study makes this more likely to be a focus of inflammation, but rapidly growing neoplasm not excludable. Left basilar hazy opacity. Most likely a moderate to large pleural effusion.Component of infiltrate or atelectasis is also possible 05/12 CXR: Asymmetric ill-defined confluent groundglass opacity within the left mid/inferior lung, of uncertain etiology. 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 Hypertension. Sacral decubitus ulcers. Bipolar disorder. Coronary artery disease. Plan - Continue Cefepime #9 and Vancomycin #9 pending Cx -Add PO Flagyl #2 for anaerobic coverage -Airborne isolation -AFB sp cx x3,MTB PCR x1 -f/u cocci ab, CrAg, fungal sp cx, T-spot - f/u Blood Cx - Wound care - Monitor CBC and Temps -f/u sp cx, u/a w/ reflex -Cdiff if diarrhea -Obtain records from [facility] for BCx results -Sx and podiatry f/u: recommend b/l AKA Thank you for this consult. We will continue to follow the patient during this hospitalization. Discussed withRN and Dr Osuna, Subjective Allergies: Coded Allergies: MILK (Verified Allergy, Unknown, 02/02/18) Subjective afebrile WBC improving sp cx p Objective Vital Signs Last 24 Hour Vital Signs Date Time Temp Pulse Resp B/P (MAP) Pulse Ox O2 Delivery O2 Flow Rate FiO2 05/20/18 09:00 84 05/20/18 08:59 84 123/61 05/20/18 08:00 97.3 84 20 123/61 (81) 99 05/20/18 08:00 96 05/20/18 08:00 Room Air 05/20/18 04:00 Room Air 05/20/18 04:00 93 05/20/18 04:00 98.4 70 20 131/78 (95) 99 05/20/18 00:00 71 05/20/18 00:00 97.7 71 20 124/73 (90) 97 05/20/18 00:00 Room Air 05/19/18 21:22 87 129/77 05/19/18 20:00 Room Air 05/19/18 20:00 98.4 87 20 129/77 (94) 97 05/19/18 20:00 87 05/19/18 19:52 74 18 Room Air 21 05/19/18 16:13 69 05/19/18 16:00 98.0 78 20 124/71 (88) 95 05/19/18 16:00 Room Air 05/19/18 12:00 64 05/19/18 12:00 97.6 67 20 105/62 (76) 94 05/19/18 12:00 Room Air Height (Feet): 6 Height (Inches): 5.00 Weight (Pounds): 207 Objective Gen: NAD. Mumbling HEENT: NCAT, MMM, EOMI, No Oral lesion, no scleral icterus NECK: full range of motion, supple, no meningismus, No LAD, No JVD LUNGS: CTAB, No W/C, No Accessory muscle use CARDS: RRR, S1, S2, No M/R/G ABD: Soft, NT, ND, No R/G, + BS, No HSM, No Masses : Deferred Ext: C/C/E, Pulses 2+ B/L (DP, Rad) NEURO: A/O x 0, Strength and Sensation Grossly intact PSYCH: mood/affect normal SKIN: Left foot wound. No purulent drainage, Feet now bandaged Laboratory Tests Test 05/20/18 04:20 White Blood Count 11.8 K/UL (4.8-10.8) H Red Blood Count 3.74 M/UL (4.70-6.10) L Hemoglobin 10.9 G/DL (14.2-18.0) L Hematocrit 33.7 % (42.0-52.0) L Mean Corpuscular Volume 90 FL (80-99) Mean Corpuscular Hemoglobin 29.2 PG (27.0-31.0) Mean Corpuscular Hemoglobin Concent 32.4 G/DL (32.0-36.0) Red Cell Distribution Width 12.8 % (11.6-14.8) Platelet Count 290 K/UL (150-450) Mean Platelet Volume 5.2 FL (6.5-10.1) L Neutrophils (%) (Auto) 71.5 % (45.0-75.0) Lymphocytes (%) (Auto) 16.6 % (20.0-45.0) L Monocytes (%) (Auto) 9.6 % (1.0-10.0) Eosinophils (%) (Auto) 1.5 % (0.0-3.0) Basophils (%) (Auto) 0.8 % (0.0-2.0) Erythrocyte Sedimentation Rate 67 MM/HR (0-20) H Sodium Level 138 MMOL/L (136-145) Potassium Level 3.9 MMOL/L (3.5-5.1) Chloride Level 107 MMOL/L (98-107) Carbon Dioxide Level 24 MMOL/L (21-32) Anion Gap 7 mmol/L (5-15) Blood Urea Nitrogen 19 mg/dL (7-18) H Creatinine 0.6 MG/DL (0.55-1.30) Estimat Glomerular Filtration Rate > 60 mL/min (>60) Glucose Level 96 MG/DL (74-106) Calcium Level 7.7 MG/DL (8.5-10.1) L Phosphorus Level 2.2 MG/DL (2.5-4.9) L Magnesium Level 1.7 MG/DL (1.8-2.4) L Total Bilirubin 0.4 MG/DL (0.2-1.0) Aspartate Amino Transf (AST/SGOT) 40 U/L (15-37) H Alanine Aminotransferase (ALT/SGPT) 23 U/L (12-78) Alkaline Phosphatase 131 U/L (46-116) H C-Reactive Protein, Quantitative 6.0 mg/dL (0.00-0.90) H Total Protein 6.0 G/DL (6.4-8.2) L Albumin 1.1 G/DL (3.4-5.0) L Globulin 4.9 g/dL Albumin/Globulin Ratio 0.2 (1.0-2.7) L Coccidioides Antibody (Comp Fix) Pending Cryptococcus Antigen Pending Current Medications Medications (Trade) Dose Ordered Sig/Erlin Route PRN Reason Start Time Stop Time Status Last Admin Dose Admin Acetaminophen (Tylenol) 650 mg Q4H PRN ORAL Mild Pain/Temp > 100.5 05/18/18 08:45 06/11/18 12:34 05/20/18 05:02 Albuterol/ Ipratropium (Albuterol/ Ipratropium) 3 ml Q4H PRN HHN Shortness of Breath 05/18/18 09:00 05/22/18 08:59 Amiodarone HCl (Cordarone) 200 mg DAILY ORAL 05/20/18 09:00 06/17/18 08:59 05/20/18 08:59 Digoxin (Lanoxin) 0.125 mg DAILY ORAL 05/18/18 09:00 06/12/18 08:59 05/20/18 09:00 Enoxaparin Sodium (Lovenox) 100 mg EVERY 12 HOURS SUBQ 05/19/18 21:00 06/18/18 20:59 05/20/18 09:11 Gabapentin (Neurontin) 100 mg THREE TIMES A DAY ORAL 05/18/18 09:00 06/11/18 17:59 05/20/18 08:59 Metoprolol Tartrate (Lopressor) 50 mg Q12HR ORAL 05/18/18 09:00 06/11/18 20:59 05/20/18 08:59 Metronidazole (Flagyl) 500 mg Q8H ORAL 05/19/18 18:00 05/26/18 17:59 05/20/18 01:32 Morphine Sulfate (Morphine Sulfate) 2 mg Q4H PRN IVP pain 4-10 05/19/18 14:15 05/26/18 14:14 05/20/18 09:01 Polyethylene Glycol (Miralax) 17 gm DAILY ORAL 05/18/18 09:00 06/16/18 10:59 05/20/18 09:00 Potassium Chloride 10 meq/ Dextrose/Sodium Chloride 1,005 ml @ 75 mls/hr [id number] IV 05/18/18 05:30 06/12/18 14:59 05/19/18 22:17 Quetiapine Fumarate (SEROquel) 100 mg BEDTIME ORAL 05/18/18 21:00 06/11/18 20:59 05/19/18 21:22 Sodium Hypochlorite (Dakin's Quarter Strength) 1 applic DAILY TOPIC 05/18/18 09:00 06/12/18 14:18 05/19/18 09:05 Vancomycin HCl (Vanco rx to dose) 1 ea DAILY PRN MISC Per rx protocol 05/18/18 09:00 06/11/18 14:59 Vancomycin/Sodium Chloride 250 ml @ 166.667 mls/hr Q8H IVPB 05/18/18 13:00 05/24/18 12:59 05/20/18 05:01 Alma Elkins M.D. May 20, 2018 11:54
[2018-05-20] MEDS ORDERED: Albuterol/Ipratropium 3ml neb HHN PRN (11:58)
[2018-05-20 12:00] VITALS: BP 127/67
[2018-05-20] MEDS: Potassium Chloride 10 MEQ in D5 1/2NS 1,000 ML IV SCH (12:21)
[2018-05-20] MEDS: Dakin's 0.125% Soln (Quarter Strength) 16oz TOPIC SCH (12:54)
--- NOTE | 2018-05-20 13:04 | Internal Med Progress Note ---
Subjective Date of Service: May 20, 2018 Physician Name Daniel Jackson Attending Physician Pedro Caban MD Current Medications Medications (Trade) Dose Ordered Sig/Erlin Route PRN Reason Start Time Stop Time Status Last Admin Dose Admin Acetaminophen (Tylenol) 650 mg Q4H PRN ORAL Mild Pain/Temp > 100.5 05/18/18 08:45 06/11/18 12:34 05/20/18 05:02 Albuterol/ Ipratropium (Albuterol/ Ipratropium) 3 ml Q4H PRN HHN Shortness of Breath 05/20/18 11:58 05/24/18 11:57 Amiodarone HCl (Cordarone) 200 mg DAILY ORAL 05/20/18 09:00 06/17/18 08:59 05/20/18 08:59 Digoxin (Lanoxin) 0.125 mg DAILY ORAL 05/18/18 09:00 06/12/18 08:59 05/20/18 09:00 Enoxaparin Sodium (Lovenox) 100 mg EVERY 12 HOURS SUBQ 05/19/18 21:00 06/18/18 20:59 05/20/18 09:11 Gabapentin (Neurontin) 100 mg THREE TIMES A DAY ORAL 05/18/18 09:00 06/11/18 17:59 05/20/18 12:21 Metoprolol Tartrate (Lopressor) 50 mg Q12HR ORAL 05/18/18 09:00 06/11/18 20:59 05/20/18 08:59 Metronidazole (Flagyl) 500 mg Q8H ORAL 05/19/18 18:00 05/26/18 17:59 05/20/18 12:21 Morphine Sulfate (Morphine Sulfate) 2 mg Q4H PRN IVP pain 4-10 05/19/18 14:15 05/26/18 14:14 05/20/18 09:01 Polyethylene Glycol (Miralax) 17 gm DAILY ORAL 05/18/18 09:00 06/16/18 10:59 05/20/18 09:00 Potassium Chloride 10 meq/ Dextrose/Sodium Chloride 1,005 ml @ 75 mls/hr [id number] IV 05/18/18 05:30 06/12/18 14:59 05/20/18 12:21 Quetiapine Fumarate (SEROquel) 100 mg BEDTIME ORAL 05/18/18 21:00 06/11/18 20:59 05/19/18 21:22 Sodium Hypochlorite (Dakin's Quarter Strength) 1 applic DAILY TOPIC 05/18/18 09:00 06/12/18 14:18 05/20/18 12:54 Tuberculin PPD (Tubersol (PPD)) 0.1 ml ONCE ONCE IDERMAL 05/20/18 14:00 05/20/18 14:01 Vancomycin HCl (Vanco rx to dose) 1 ea DAILY PRN MISC Per rx protocol 05/18/18 09:00 06/11/18 14:59 Vancomycin/Sodium Chloride 250 ml @ 166.667 mls/hr Q8H IVPB 05/18/18 13:00 05/24/18 12:59 05/20/18 12:54 Allergies: Coded Allergies: MILK (Verified Allergy, Unknown, 02/02/18) ROS Limited/Unobtainable: No Constitutional: Reports: no symptoms HEENT: Reports: no symptoms Cardiovascular: Reports: no symptoms Respiratory: Reports: no symptoms Gastrointestinal/Abdominal: Reports: no symptoms Genitourinary: Reports: no symptoms 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: Reports: no symptoms Subjective 68 YO A M admitted with altered mental status. Now sepsis and atrial fibrillation with rapid rate. Cover for Int Med-Dr Caban. LILIBETH. Scheduled for bilateral above the knee amputation 05/22/18 Objective Last Vital Signs Date Time Temp Pulse Resp B/P (MAP) Pulse Ox O2 Delivery O2 Flow Rate FiO2 05/20/18 09:00 84 05/20/18 08:59 123/61 05/20/18 08:00 97.3 20 99 05/20/18 08:00 Room Air 05/19/18 19:52 21 Laboratory Tests Test 05/20/18 04:20 White Blood Count 11.8 K/UL (4.8-10.8) H Red Blood Count 3.74 M/UL (4.70-6.10) L Hemoglobin 10.9 G/DL (14.2-18.0) L Hematocrit 33.7 % (42.0-52.0) L Mean Corpuscular Volume 90 FL (80-99) Mean Corpuscular Hemoglobin 29.2 PG (27.0-31.0) Mean Corpuscular Hemoglobin Concent 32.4 G/DL (32.0-36.0) Red Cell Distribution Width 12.8 % (11.6-14.8) Platelet Count 290 K/UL (150-450) Mean Platelet Volume 5.2 FL (6.5-10.1) L Neutrophils (%) (Auto) 71.5 % (45.0-75.0) Lymphocytes (%) (Auto) 16.6 % (20.0-45.0) L Monocytes (%) (Auto) 9.6 % (1.0-10.0) Eosinophils (%) (Auto) 1.5 % (0.0-3.0) Basophils (%) (Auto) 0.8 % (0.0-2.0) Erythrocyte Sedimentation Rate 67 MM/HR (0-20) H Sodium Level 138 MMOL/L (136-145) Potassium Level 3.9 MMOL/L (3.5-5.1) Chloride Level 107 MMOL/L (98-107) Carbon Dioxide Level 24 MMOL/L (21-32) Anion Gap 7 mmol/L (5-15) Blood Urea Nitrogen 19 mg/dL (7-18) H Creatinine 0.6 MG/DL (0.55-1.30) Estimat Glomerular Filtration Rate > 60 mL/min (>60) Glucose Level 96 MG/DL (74-106) Calcium Level 7.7 MG/DL (8.5-10.1) L Phosphorus Level 2.2 MG/DL (2.5-4.9) L Magnesium Level 1.7 MG/DL (1.8-2.4) L Total Bilirubin 0.4 MG/DL (0.2-1.0) Aspartate Amino Transf (AST/SGOT) 40 U/L (15-37) H Alanine Aminotransferase (ALT/SGPT) 23 U/L (12-78) Alkaline Phosphatase 131 U/L (46-116) H C-Reactive Protein, Quantitative 6.0 mg/dL (0.00-0.90) H Total Protein 6.0 G/DL (6.4-8.2) L Albumin 1.1 G/DL (3.4-5.0) L Globulin 4.9 g/dL Albumin/Globulin Ratio 0.2 (1.0-2.7) L Coccidioides Antibody (Comp Fix) Pending Cryptococcus Antigen Pending Intake and Output 05/19/18 05/20/18 19:00 07:00 Intake Total 2820.000 ml 768.75 ml Output Total 400 ml 800 ml Balance 2420.000 ml -31.25 ml Intake Oral 1440 ml 240 ml IV Total 1380.000 ml 528.75 ml Output Urine Total 400 ml 800 ml # Bowel Movements 1 Objective General Appearance: alert, thin, agitated EENT: PERRL/EOMI, normal ENT inspection Neck: non-tender, normal alignment, supple, normal inspection Cardiovascular: normal peripheral pulses, normal rate, no gallop/murmur, no JVD , irregularly irregular Respiratory/Chest: chest wall non-tender, lungs clear, normal breath sounds, no respiratory distress, no accessory muscle use Abdomen: normal bowel sounds, non tender, soft, no organomegaly, no mass Extremities: normal range of motion, non-tender 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 D/C eliquis ; change to lovenox prior to surgery (3) Hypertension Assessment & Plan: continue metoprolol (4) CAD (coronary artery disease) (5) Bipolar disorder (6) Fever (7) Decubitus skin ulcer Assessment & Plan: Bilateral above the knee amputation scheduled for Tue-see surgery consult. (8) Sepsis Assessment & Plan: Continue antibiotic per ID (9) UTI (urinary tract infection) Assessment & Plan: Mixed culture-continue vanco and cefepime per ID (10) Leukocytosis (11) Deep venous thrombosis of right femoral vein Assessment & Plan: D/C eliquis. Start lovenox SQ; D/C lovenox on Tuesday prior to surgery Status: not improved Daniel Jackson MD May 20, 2018 13:04
[2018-05-20] MEDS ORDERED: PPD Tuberculin Skin Test 5TU IDERMAL ONE (14:00)
--- NOTE | 2018-05-20 15:05 | General Surgery Progress Note ---
General Surgery-Progress Note Subjective Additional Comments not as clear today but still awake and responsive. does not know what day it is and does not recall our conversation tomorrow. is excited to see daughter once I stated she plans to visit tomorrow Objective Last 24 Hour Vital Signs Date Time Temp Pulse Resp B/P (MAP) Pulse Ox O2 Delivery O2 Flow Rate FiO2 05/20/18 12:00 98.1 71 18 127/67 (87) 92 05/20/18 12:00 Room Air 05/20/18 12:00 71 05/20/18 09:00 84 05/20/18 08:59 84 123/61 05/20/18 08:00 97.3 84 20 123/61 (81) 99 05/20/18 08:00 96 05/20/18 08:00 Room Air 05/20/18 07:00 69 18 Room Air 21 05/20/18 04:00 Room Air 05/20/18 04:00 93 05/20/18 04:00 98.4 70 20 131/78 (95) 99 05/20/18 00:00 71 05/20/18 00:00 97.7 71 20 124/73 (90) 97 05/20/18 00:00 Room Air 05/19/18 21:22 87 129/77 05/19/18 20:00 Room Air 05/19/18 20:00 98.4 87 20 129/77 (94) 97 05/19/18 20:00 87 05/19/18 19:52 74 18 Room Air 21 05/19/18 16:13 69 05/19/18 16:00 98.0 78 20 124/71 (88) 95 05/19/18 16:00 Room Air I&O Intake and Output 05/19/18 05/20/18 18:59 06:59 Intake Total 2820.000 ml 843.75 ml Output Total 400 ml 800 ml Balance 2420.000 ml 43.75 ml Intake Oral 1440 ml 240 ml IV Total 1380.000 ml 603.75 ml Output Urine Total 400 ml 800 ml # Bowel Movements 1 Dressing: other Wound: other Drains: other Cardiovascular: RSR Respiratory: clear Abdomen: soft, flat, non-tender, present bowel sounds Extremities: other Laboratory Tests Test 05/20/18 04:20 White Blood Count 11.8 K/UL (4.8-10.8) H Red Blood Count 3.74 M/UL (4.70-6.10) L Hemoglobin 10.9 G/DL (14.2-18.0) L Hematocrit 33.7 % (42.0-52.0) L Mean Corpuscular Volume 90 FL (80-99) Mean Corpuscular Hemoglobin 29.2 PG (27.0-31.0) Mean Corpuscular Hemoglobin Concent 32.4 G/DL (32.0-36.0) Red Cell Distribution Width 12.8 % (11.6-14.8) Platelet Count 290 K/UL (150-450) Mean Platelet Volume 5.2 FL (6.5-10.1) L Neutrophils (%) (Auto) 71.5 % (45.0-75.0) Lymphocytes (%) (Auto) 16.6 % (20.0-45.0) L Monocytes (%) (Auto) 9.6 % (1.0-10.0) Eosinophils (%) (Auto) 1.5 % (0.0-3.0) Basophils (%) (Auto) 0.8 % (0.0-2.0) Erythrocyte Sedimentation Rate 67 MM/HR (0-20) H Sodium Level 138 MMOL/L (136-145) Potassium Level 3.9 MMOL/L (3.5-5.1) Chloride Level 107 MMOL/L (98-107) Carbon Dioxide Level 24 MMOL/L (21-32) Anion Gap 7 mmol/L (5-15) Blood Urea Nitrogen 19 mg/dL (7-18) H Creatinine 0.6 MG/DL (0.55-1.30) Estimat Glomerular Filtration Rate > 60 mL/min (>60) Glucose Level 96 MG/DL (74-106) Calcium Level 7.7 MG/DL (8.5-10.1) L Phosphorus Level 2.2 MG/DL (2.5-4.9) L Magnesium Level 1.7 MG/DL (1.8-2.4) L Total Bilirubin 0.4 MG/DL (0.2-1.0) Aspartate Amino Transf (AST/SGOT) 40 U/L (15-37) H Alanine Aminotransferase (ALT/SGPT) 23 U/L (12-78) Alkaline Phosphatase 131 U/L (46-116) H C-Reactive Protein, Quantitative 6.0 mg/dL (0.00-0.90) H Total Protein 6.0 G/DL (6.4-8.2) L Albumin 1.1 G/DL (3.4-5.0) L Globulin 4.9 g/dL Albumin/Globulin Ratio 0.2 (1.0-2.7) L Coccidioides Antibody (Comp Fix) Pending Cryptococcus Antigen Pending Plan Problems: (1) Sepsis Assessment & Plan: etiology of leukocytosis unknown will need further work up IV abx appreciate ID input trend labs Discussed findings with Vascular and Podiatry Agree that lower extremities are not salvageable. Would recommend bilateral AKA Need to contact family and discuss. Patient without capacity to make decision. Need to work on consent Needs POA or designated Next of Kin as proposed surgery is very invasive Spoke with two daughters. Sister is out of the country. Very long discussion about medical condition and care plan discussed clinical findings discussed radiological findings. discussed medical condition discussed multi-disciplinary team recommendations for AKA bilaterally daughters very reasonable and aware of his condition. eldest daughter states that she had a discussion with him 1 month about regarding amputation as it had been recommended prior. states that father had lower extremities amputated for similar reasons at similar age. spoke with family today. they had family discussion and expressed that they would like to proceed with surgery b/l AKA given above findings. I explained that sepsis is improved and surgery is no longer emergency but still recommended. Patient in better mental capacity today and after long discussion expressed he has been putting this off for some time now but understands and agrees to bilateral AKA daughter to fly in this weekend plan for Surgery tuesday thank you (2) Decubitus skin ulcer Assessment & Plan: Patient well known to me. Has had chronic wounds on sacrum, buttock, and lower extremities. Prior had maggots in lower extremities treated with Dakins and wound care which are since resolved. Multiple pressure ulcers. Patient unable to participate in exam and care plan. Now presents with multiple ulcerations to both lower extremities. Wounds are irregular malodorous. Both lower ext. cool to touch. Toes necrotic with ulcerations 1st, 2nd and 3rd metatarsals ulcerated. Ulcers dorsal aspects of toes L foot.Web spaces of toes are dry . Full thickness pressure injury to sacrum with 60% slough,(+) epibole.Wound measures (L)7cm x (W)7.5cm x (D)2.5cm. Periwound dark .Wound malodorous. Right buttock and ischial tuberosity which are large and with eschar cap unstageable full thickness. both heels have DTI with blood blisters noted. Wounds have significantly deteriorated since last admission with new wounds noted on lower extremities and buttock. Areas of prior maggot infection are healing but still with wounds. Refer to wound care photos for details. Tx.Plan: Cleanse both lower ext wounds with NS . Skin protectant .Dakin's 0.25% moist gauze, Cover with ABD and wrap with soft chavez daily an dprn Apply Light dusting of Liberty Starch or baby powder in web spaces of toes on feet Clean sacral decubitus and buttock ulcer with NS, apply skin protectant / honey gel, apply foam dressing daily and prn Air Fluidized mattress on bed (P200). Encourage and assist with repositioning at least every 2hours or as tolerated. Off-load heels with pillow. would appreciate Podiatry and Vascular consult as I dont anticipate lower extremity will be salvageable at this time. Recommend bilateral AKA. patient does not seem to have capacity. psych eval Duplex studies Goyo Osuna May 20, 2018 15:05
--- NOTE | 2018-05-20 15:24 | Cardiac Electrophysiology PN ---
Assessment/Plan Assessment/Plan 1. Paroxysmal Atrial fibrillation and flutter with RVR Continue digoxin 0.125 daily, metoprolol 50 bid and Lovenox 100 b.i.d. On Amiodarone 200 daily. 2. Borderline hypotension. Resolved, off midodrine. 3. Fever and sepsis, on antibiotic with vancomycin and cefepime. 4. History of dementia and severe psychosis, on Seroquel. 5. Severe bilateral leg ulcers and sacral decubitus. Dr Enrrique GERMAN RN Subjective Subjective In SDU in and out of SR Objective Last 24 Hour Vital Signs Date Time Temp Pulse Resp B/P (MAP) Pulse Ox O2 Delivery O2 Flow Rate FiO2 05/20/18 12:00 98.1 71 18 127/67 (87) 92 05/20/18 12:00 Room Air 05/20/18 12:00 71 05/20/18 09:00 84 05/20/18 08:59 84 123/61 05/20/18 08:00 97.3 84 20 123/61 (81) 99 05/20/18 08:00 96 05/20/18 08:00 Room Air 05/20/18 07:00 69 18 Room Air 21 05/20/18 04:00 Room Air 05/20/18 04:00 93 05/20/18 04:00 98.4 70 20 131/78 (95) 99 05/20/18 00:00 71 05/20/18 00:00 97.7 71 20 124/73 (90) 97 05/20/18 00:00 Room Air 05/19/18 21:22 87 129/77 05/19/18 20:00 Room Air 05/19/18 20:00 98.4 87 20 129/77 (94) 97 05/19/18 20:00 87 05/19/18 19:52 74 18 Room Air 21 05/19/18 16:13 69 05/19/18 16:00 98.0 78 20 124/71 (88) 95 05/19/18 16:00 Room Air Intake and Output 05/19/18 05/20/18 18:59 06:59 Intake Total 2820.000 ml 843.75 ml Output Total 400 ml 800 ml Balance 2420.000 ml 43.75 ml Intake Oral 1440 ml 240 ml IV Total 1380.000 ml 603.75 ml Output Urine Total 400 ml 800 ml # Bowel Movements 1 Laboratory Tests Test 05/20/18 04:20 White Blood Count 11.8 K/UL (4.8-10.8) H Red Blood Count 3.74 M/UL (4.70-6.10) L Hemoglobin 10.9 G/DL (14.2-18.0) L Hematocrit 33.7 % (42.0-52.0) L Mean Corpuscular Volume 90 FL (80-99) Mean Corpuscular Hemoglobin 29.2 PG (27.0-31.0) Mean Corpuscular Hemoglobin Concent 32.4 G/DL (32.0-36.0) Red Cell Distribution Width 12.8 % (11.6-14.8) Platelet Count 290 K/UL (150-450) Mean Platelet Volume 5.2 FL (6.5-10.1) L Neutrophils (%) (Auto) 71.5 % (45.0-75.0) Lymphocytes (%) (Auto) 16.6 % (20.0-45.0) L Monocytes (%) (Auto) 9.6 % (1.0-10.0) Eosinophils (%) (Auto) 1.5 % (0.0-3.0) Basophils (%) (Auto) 0.8 % (0.0-2.0) Erythrocyte Sedimentation Rate 67 MM/HR (0-20) H Sodium Level 138 MMOL/L (136-145) Potassium Level 3.9 MMOL/L (3.5-5.1) Chloride Level 107 MMOL/L (98-107) Carbon Dioxide Level 24 MMOL/L (21-32) Anion Gap 7 mmol/L (5-15) Blood Urea Nitrogen 19 mg/dL (7-18) H Creatinine 0.6 MG/DL (0.55-1.30) Estimat Glomerular Filtration Rate > 60 mL/min (>60) Glucose Level 96 MG/DL (74-106) Calcium Level 7.7 MG/DL (8.5-10.1) L Phosphorus Level 2.2 MG/DL (2.5-4.9) L Magnesium Level 1.7 MG/DL (1.8-2.4) L Total Bilirubin 0.4 MG/DL (0.2-1.0) Aspartate Amino Transf (AST/SGOT) 40 U/L (15-37) H Alanine Aminotransferase (ALT/SGPT) 23 U/L (12-78) Alkaline Phosphatase 131 U/L (46-116) H C-Reactive Protein, Quantitative 6.0 mg/dL (0.00-0.90) H Total Protein 6.0 G/DL (6.4-8.2) L Albumin 1.1 G/DL (3.4-5.0) L Globulin 4.9 g/dL Albumin/Globulin Ratio 0.2 (1.0-2.7) L Coccidioides Antibody (Comp Fix) Pending Cryptococcus Antigen Pending Objective HEAD AND NECK: Mild JVD. LUNGS: Coarse rhonchi. CARDIOVASCULAR: Irregular S1 and S2 with no murmur. ABDOMEN: Soft. EXTREMITIES: Bilateral leg ulcers Amandeep Arora MD May 20, 2018 15:24
[2018-05-20 16:00] VITALS: BP 130/90
[2018-05-20 20:00] VITALS: BP 138/77
[2018-05-21] VITALS: BP 129/71
[2018-05-21] MEDS: Potassium Chloride 10 MEQ in D5 1/2NS 1,000 ML IV SCH ×2 (00:37→13:46)
[2018-05-21] MEDS: metroNIDAZOLE 500mg tab ORAL SCH ×3 (01:43→18:07)
[2018-05-21] MEDS: Morphine Sulfate 2mg/ml Inj IVP PRN ×4 (01:44→20:10)
[2018-05-21 04:00] VITALS: BP 153/77
[2018-05-21] MEDS: Vancomycin 750mg/NS 250ml 250 ML IVPB SCH ×3 (04:56→21:10)
[2018-05-21 08:00] VITALS: BP 159/110
--- NOTE | 2018-05-21 08:08 | Pulmonology Progress Note ---
Assessment/Plan Assessment/Plan ASSESSMENT Sepsis secondary to bacteremia /GPC likely due to necrotic ulcers BLE Bilateral necrotic foot wounds and gangrenous lesions with right calf necrotic tendon with severe knee contracture, Bilateral pleural effsuion Severe multi-level calcific arterial occlusive disease Small lung cavitary lesion/ likely PNA due to aspiration; (low suspicion for TB and/or fungal etiologies) Acute encephalopathy, likely secondary to sepsis Atrial fibrillation with rapid ventricular response Borderline hypotension- resolved Acute DVT R SFV Hypertension Coronary artery disease History of CVA Dementia Bipolar disorder protein calorie malnutrition PLAN OF CARE LILIBETH O2 prn to keep sat above 92, pulmonary toilet prn CT C/A/P noted small lung cavitary lesion probably due to PNA- per ID ; likely due to aspiration, lower suspicion for TB and fungal etiology cocci and crypto serology pending TB spot pending PPD airborne isolation for now - bilateral pleural effusion with resulting compressive atelectasis thoracentesis pending CXR in am rate control with BB and digoxin , continue Amiodarone anticoagulation with Eliquis (for A fib and acute DVT R SFV) cardio follows hypotension resolved , possibly was due to sepsis, off midodrine ECHO with pEF 60-65% and RVSP of 45 c/w mod pulm HTN vasc surgery and podiatry eval appreciated per vasc surgery legs not salvageable and pt will need bilateral AKA wound care as per plane runner recs lipid panel with borderline TG, low fat low cholesterol diet abx , ID follows blood cx in [place] + GPC BC repeated at [facility] [place] negative urine cx + mixed GPO, sputum not colleceted wound care as per surgery recs surgery planned fro 05/22 bilateral AKA ( daughter in agreement), bioethics recommendations noted and appreciated PT/OT/ST psych meds resumed recommend psych eval supportive care bowel regimen diet eval re nutritional supplements pain management prn case discussed and evaluated by supervising physician Subjective Allergies: Coded Allergies: MILK (Verified Allergy, Unknown, 02/02/18) Subjective labs pending for this am afebrile bilateral AKA scheduled for 05/22 Objective Last 24 Hour Vital Signs Date Time Temp Pulse Resp B/P (MAP) Pulse Ox O2 Delivery O2 Flow Rate FiO2 05/21/18 07:14 85 18 Room Air 21 05/21/18 04:00 98.7 54 20 153/77 (102) 95 05/21/18 04:00 Room Air 12/2/18 03:36 82 05/21/18 00:00 97.7 52 20 129/71 (90) 95 05/21/18 00:00 Room Air 05/20/18 23:32 65 05/20/18 20:50 101 138/77 05/20/18 20:00 90 18 Room Air 21 05/20/18 20:00 Room Air 05/20/18 20:00 98.0 101 20 138/77 (97) 98 05/20/18 20:00 101 05/20/18 16:00 88 05/20/18 16:00 Room Air 05/20/18 16:00 97.9 83 18 130/90 (103) 97 05/20/18 12:00 98.1 71 18 127/67 (87) 92 05/20/18 12:00 Room Air 05/20/18 12:00 71 05/20/18 09:00 84 05/20/18 08:59 84 123/61 Intake and Output 05/20/18 05/21/18 19:00 07:00 Intake Total 3050 ml 1218.500 ml Output Total 400 ml Balance 2650 ml 1218.500 ml Intake Oral 1200 ml 240 ml IV Total 1850 ml 978.500 ml Output Urine Total 400 ml # Bowel Movements 2 Objective General Appearance: no apparent distress, awake, confused HEENT: normocephalic, atraumatic, anicteric Neck: supple Respiratory/Chest: few scattered rhonchi , mild JVD Cardiovascular/Chest: irregularly irregular - pacing rhythm, simultaneously interchanging SR with frequent PVCs and AF, rate controlled Abdomen: normal bowel sounds, non tender, soft Extremities: no edema bilateral necrotic foot wounds and gangrenous lesions, absent pedal pulses Neurologic: abnormal gait, awake, confused Musculoskeletal: atrophy - BLE Current Medications Medications (Trade) Dose Ordered Sig/Erlin Route PRN Reason Start Time Stop Time Status Last Admin Dose Admin Acetaminophen (Tylenol) 650 mg Q4H PRN ORAL Mild Pain/Temp > 100.5 05/18/18 08:45 06/11/18 12:34 05/21/18 00:15 Albuterol/ Ipratropium (Albuterol/ Ipratropium) 3 ml Q4H PRN HHN Shortness of Breath 05/20/18 11:58 05/24/18 11:57 Amiodarone HCl (Cordarone) 200 mg DAILY ORAL 05/20/18 09:00 06/17/18 08:59 05/20/18 08:59 Digoxin (Lanoxin) 0.125 mg DAILY ORAL 05/18/18 09:00 06/12/18 08:59 05/20/18 09:00 Enoxaparin Sodium (Lovenox) 100 mg EVERY 12 HOURS SUBQ 05/19/18 21:00 06/18/18 20:59 05/20/18 20:44 Gabapentin (Neurontin) 100 mg THREE TIMES A DAY ORAL 05/18/18 09:00 06/11/18 17:59 05/20/18 18:07 Metoprolol Tartrate (Lopressor) 50 mg Q12HR ORAL 05/18/18 09:00 06/11/18 20:59 05/20/18 20:50 Metronidazole (Flagyl) 500 mg Q8H ORAL 05/19/18 18:00 05/26/18 17:59 05/21/18 01:43 Morphine Sulfate (Morphine Sulfate) 2 mg Q4H PRN IVP pain 4-10 05/19/18 14:15 05/26/18 14:14 05/21/18 01:44 Polyethylene Glycol (Miralax) 17 gm DAILY ORAL 05/18/18 09:00 06/16/18 10:59 05/20/18 09:00 Potassium Chloride 10 meq/ Dextrose/Sodium Chloride 1,005 ml @ 75 mls/hr [id number] IV 05/18/18 05:30 06/12/18 14:59 05/21/18 00:37 Quetiapine Fumarate (SEROquel) 100 mg BEDTIME ORAL 05/18/18 21:00 06/11/18 20:59 05/20/18 20:50 Sodium Hypochlorite (Dakin's Quarter Strength) 1 applic DAILY TOPIC 05/18/18 09:00 06/12/18 14:18 05/20/18 12:54 Vancomycin HCl (Vanco rx to dose) 1 ea DAILY PRN MISC Per rx protocol 05/18/18 09:00 06/11/18 14:59 Vancomycin/Sodium Chloride 250 ml @ 166.667 mls/hr Q8H IVPB 05/18/18 13:00 05/24/18 12:59 05/21/18 04:56 Linsey Boo NP May 21, 2018 08:08
[2018-05-21] MEDS: Digoxin 0.125mg tab ORAL SCH (08:51)
[2018-05-21] MEDS: Metoprolol Tartrate 50mg tab ORAL SCH ×2 (08:52→21:10)
[2018-05-21] MEDS: Amiodarone 200mg tab ORAL SCH (08:52)
[2018-05-21] MEDS: Miralax 17gm pkt ORAL SCH (08:52)
[2018-05-21] MEDS: Enoxaparin 100mg Inj SUBQ SCH ×2 (09:00→20:00)
[2018-05-21] MEDS: Dakin's 0.125% Soln (Quarter Strength) 16oz TOPIC SCH (09:00)
[2018-05-21] MEDS ORDERED: NS 500ML ONE (09:48)
[2018-05-21 10:57] LABS: BASOPHILS % (AUTO) 1.2 % (0.0-2.0); EOSINOPHILS % (AUTO) 0.8 % (0.0-3.0); HEMATOCRIT 32.7 % (42.0-52.0); HEMOGLOBIN 10.5 G/DL (14.2-18.0); MEAN CORPUSCULAR VOLUME 89 FL (80-99); MONOCYTES % (AUTO) 10.1 % (1.0-10.0); NEUTROPHILS % (AUTO) 77.9 % (45.0-75.0); PLATELET COUNT 303 K/UL (150-450); RED BLOOD COUNT 3.66 M/UL (4.70-6.10); RED CELL DISTRIBUTION WIDTH 12.9 % (11.6-14.8); WHITE BLOOD COUNT 9.8 K/UL (4.8-10.8)
[2018-05-21 10:59] LABS: ANION GAP 3 mmol/L (5-15); BLOOD UREA NITROGEN 16 mg/dL (7-18); CALCIUM 7.6 MG/DL (8.5-10.1); CARBON DIOXIDE 26 MMOL/L (21-32); CHLORIDE 107 MMOL/L (98-107); CREATININE 0.5 MG/DL (0.55-1.30); POTASSIUM 3.9 MMOL/L (3.5-5.1); SODIUM 136 MMOL/L (136-145)
[2018-05-21 11:24] LABS: PHOSPHORUS 1.6 MG/DL (2.5-4.9)
[2018-05-21 12:00] VITALS: BP 125/76
[2018-05-21] MEDS: Cefepime HCl 1 GM in D5W 55 ML IVPB SCH ×2 (12:12→20:10)
--- NOTE | 2018-05-21 13:18 | General Surgery Progress Note ---
General Surgery-Progress Note Subjective Symptoms: improved, pain same, tolerating diet, passing flatus Objective Last 24 Hour Vital Signs Date Time Temp Pulse Resp B/P (MAP) Pulse Ox O2 Delivery O2 Flow Rate FiO2 05/21/18 08:52 122 159/110 05/21/18 08:51 122 05/21/18 08:00 Room Air 05/21/18 08:00 96.6 122 22 159/110 (126) 99 05/21/18 08:00 82 05/21/18 07:14 85 18 Room Air 21 05/21/18 04:00 98.7 54 20 153/77 (102) 95 05/21/18 04:00 Room Air 05/21/18 03:36 82 05/21/18 00:00 97.7 52 20 129/71 (90) 95 05/21/18 00:00 Room Air 05/20/18 23:32 65 05/20/18 20:50 101 138/77 05/20/18 20:00 90 18 Room Air 21 05/20/18 20:00 Room Air 05/20/18 20:00 98.0 101 20 138/77 (97) 98 05/20/18 20:00 101 05/20/18 16:00 88 05/20/18 16:00 Room Air 05/20/18 16:00 97.9 83 18 130/90 (103) 97 I&O Intake and Output 05/20/18 05/21/18 19:00 07:00 Intake Total 3050 ml 1218.500 ml Output Total 400 ml Balance 2650 ml 1218.500 ml Intake Oral 1200 ml 240 ml IV Total 1850 ml 978.500 ml Output Urine Total 400 ml # Bowel Movements 2 Dressing: other Wound: other Drains: other Cardiovascular: RSR Respiratory: clear Abdomen: soft, flat, non-tender, present bowel sounds Extremities: other Laboratory Tests Test 05/21/18 10:30 White Blood Count 9.8 K/UL (4.8-10.8) Red Blood Count 3.66 M/UL (4.70-6.10) L Hemoglobin 10.5 G/DL (14.2-18.0) L Hematocrit 32.7 % (42.0-52.0) L Mean Corpuscular Volume 89 FL (80-99) Mean Corpuscular Hemoglobin 28.8 PG (27.0-31.0) Mean Corpuscular Hemoglobin Concent 32.2 G/DL (32.0-36.0) Red Cell Distribution Width 12.9 % (11.6-14.8) Platelet Count 303 K/UL (150-450) Mean Platelet Volume 5.2 FL (6.5-10.1) L Neutrophils (%) (Auto) 77.9 % (45.0-75.0) H Lymphocytes (%) (Auto) 10.0 % (20.0-45.0) L Monocytes (%) (Auto) 10.1 % (1.0-10.0) H Eosinophils (%) (Auto) 0.8 % (0.0-3.0) Basophils (%) (Auto) 1.2 % (0.0-2.0) Sodium Level 136 MMOL/L (136-145) Potassium Level 3.9 MMOL/L (3.5-5.1) Chloride Level 107 MMOL/L (98-107) Carbon Dioxide Level 26 MMOL/L (21-32) Anion Gap 3 mmol/L (5-15) L Blood Urea Nitrogen 16 mg/dL (7-18) Creatinine 0.5 MG/DL (0.55-1.30) L Estimat Glomerular Filtration Rate > 60 mL/min (>60) Glucose Level 125 MG/DL (74-106) H Calcium Level 7.6 MG/DL (8.5-10.1) L Phosphorus Level 1.6 MG/DL (2.5-4.9) L Magnesium Level 1.5 MG/DL (1.8-2.4) L Plan Problems: (1) Sepsis Assessment & Plan: etiology of leukocytosis unknown will need further work up IV abx appreciate ID input trend labs Discussed findings with Vascular and Podiatry Agree that lower extremities are not salvageable. Would recommend bilateral AKA Need to contact family and discuss. Patient without capacity to make decision. Need to work on consent Needs POA or designated Next of Kin as proposed surgery is very invasive Spoke with two daughters. Sister is out of the country. Very long discussion about medical condition and care plan discussed clinical findings discussed radiological findings. discussed medical condition discussed multi-disciplinary team recommendations for AKA bilaterally daughters very reasonable and aware of his condition. eldest daughter states that she had a discussion with him 1 month about regarding amputation as it had been recommended prior. states that father had lower extremities amputated for similar reasons at similar age. spoke with family today. they had family discussion and expressed that they would like to proceed with surgery b/l AKA given above findings. I explained that sepsis is improved and surgery is no longer emergency but still recommended. Patient in better mental capacity today and after long discussion expressed he has been putting this off for some time now but understands and agrees to bilateral AKA daughter to fly in this weekend plan for Surgery tuesday thank you (2) Decubitus skin ulcer Assessment & Plan: Patient well known to me. Has had chronic wounds on sacrum, buttock, and lower extremities. Prior had maggots in lower extremities treated with Dakins and wound care which are since resolved. Multiple pressure ulcers. Patient unable to participate in exam and care plan. Now presents with multiple ulcerations to both lower extremities. Wounds are irregular malodorous. Both lower ext. cool to touch. Toes necrotic with ulcerations 1st, 2nd and 3rd metatarsals ulcerated. Ulcers dorsal aspects of toes L foot.Web spaces of toes are dry . Full thickness pressure injury to sacrum with 60% slough,(+) epibole.Wound measures (L)7cm x (W)7.5cm x (D)2.5cm. Periwound dark .Wound malodorous. Right buttock and ischial tuberosity which are large and with eschar cap unstageable full thickness. both heels have DTI with blood blisters noted. Wounds have significantly deteriorated since last admission with new wounds noted on lower extremities and buttock. Areas of prior maggot infection are healing but still with wounds. Refer to wound care photos for details. Tx.Plan: Cleanse both lower ext wounds with NS . Skin protectant .Dakin's 0.25% moist gauze, Cover with ABD and wrap with soft chavez daily an dprn Apply Light dusting of Wallace Starch or baby powder in web spaces of toes on feet Clean sacral decubitus and buttock ulcer with NS, apply skin protectant / honey gel, apply foam dressing daily and prn Air Fluidized mattress on bed (P200). Encourage and assist with repositioning at least every 2hours or as tolerated. Off-load heels with pillow. would appreciate Podiatry and Vascular consult as I dont anticipate lower extremity will be salvageable at this time. Recommend bilateral AKA. patient does not seem to have capacity. psych eval Duplex studies Goyo Osuna May 21, 2018 13:18
[2018-05-21] MEDS: Phospha 250 Neutral tab ORAL SCH ×2 (13:22→18:07)
--- NOTE | 2018-05-21 15:20 | Internal Med Progress Note ---
Subjective Date of Service: May 21, 2018 Physician Name Daniel Jackson Attending Physician Pedro Caban MD Current Medications Medications (Trade) Dose Ordered Sig/Erlin Route PRN Reason Start Time Stop Time Status Last Admin Dose Admin Acetaminophen (Tylenol) 650 mg Q4H PRN ORAL Mild Pain/Temp > 100.5 05/18/18 08:45 06/11/18 12:34 05/21/18 00:15 Albuterol/ Ipratropium (Albuterol/ Ipratropium) 3 ml Q4H PRN HHN Shortness of Breath 05/20/18 11:58 05/24/18 11:57 Amiodarone HCl (Cordarone) 200 mg DAILY ORAL 05/20/18 09:00 06/17/18 08:59 05/21/18 08:52 Cefepime HCl 1 gm/ Dextrose 55 ml @ 110 mls/hr EVERY 12 HOURS IVPB 05/21/18 12:00 05/28/18 11:59 05/21/18 12:12 Digoxin (Lanoxin) 0.125 mg DAILY ORAL 05/18/18 09:00 06/12/18 08:59 05/21/18 08:51 Enoxaparin Sodium (Lovenox) 100 mg EVERY 12 HOURS SUBQ 05/19/18 21:00 06/18/18 20:59 05/20/18 20:44 Gabapentin (Neurontin) 100 mg THREE TIMES A DAY ORAL 05/18/18 09:00 06/11/18 17:59 05/21/18 12:02 Metoprolol Tartrate (Lopressor) 50 mg Q12HR ORAL 05/18/18 09:00 06/11/18 20:59 05/21/18 08:52 Metronidazole (Flagyl) 500 mg Q8H ORAL 05/19/18 18:00 05/26/18 17:59 05/21/18 11:04 Morphine Sulfate (Morphine Sulfate) 2 mg Q4H PRN IVP pain 4-10 05/19/18 14:15 05/26/18 14:14 05/21/18 08:54 Phosphorus (Phospha 250 Neutral) 250 mg THREE TIMES A DAY ORAL 05/21/18 13:00 05/22/18 09:01 05/21/18 13:22 Polyethylene Glycol (Miralax) 17 gm DAILY ORAL 05/18/18 09:00 06/16/18 10:59 05/21/18 08:52 Potassium Chloride 10 meq/ Dextrose/Sodium Chloride 1,005 ml @ 75 mls/hr [id number] IV 05/18/18 05:30 06/12/18 14:59 05/21/18 13:46 Quetiapine Fumarate (SEROquel) 100 mg BEDTIME ORAL 05/18/18 21:00 06/11/18 20:59 05/20/18 20:50 Sodium Hypochlorite (Dakin's Quarter Strength) 1 applic DAILY TOPIC 05/18/18 09:00 06/12/18 14:18 05/21/18 09:00 Vancomycin HCl (Vanco rx to dose) 1 ea DAILY PRN MISC Per rx protocol 05/18/18 09:00 06/11/18 14:59 Vancomycin/Sodium Chloride 250 ml @ 166.667 mls/hr Q8H IVPB 05/18/18 13:00 05/24/18 12:59 05/21/18 12:03 Allergies: Coded Allergies: MILK (Verified Allergy, Unknown, 02/02/18) ROS Limited/Unobtainable: No Constitutional: Reports: no symptoms HEENT: Reports: no symptoms Cardiovascular: Reports: no symptoms Respiratory: Reports: no symptoms Gastrointestinal/Abdominal: Reports: no symptoms Genitourinary: Reports: no symptoms 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: Reports: no symptoms Subjective 68 YO A M admitted with altered mental status. Now sepsis and atrial fibrillation with rapid rate. Cover for Int Jerman-Dr Caban. LILIBETH. Scheduled for bilateral above the knee amputation 05/22/18 Objective Last Vital Signs Date Time Temp Pulse Resp B/P (MAP) Pulse Ox O2 Delivery O2 Flow Rate FiO2 05/21/18 12:00 62 05/21/18 12:00 Room Air 05/21/18 12:00 98.2 22 125/76 (92) 93 05/21/18 07:14 21 Laboratory Tests Test 05/21/18 10:30 White Blood Count 9.8 K/UL (4.8-10.8) Red Blood Count 3.66 M/UL (4.70-6.10) L Hemoglobin 10.5 G/DL (14.2-18.0) L Hematocrit 32.7 % (42.0-52.0) L Mean Corpuscular Volume 89 FL (80-99) Mean Corpuscular Hemoglobin 28.8 PG (27.0-31.0) Mean Corpuscular Hemoglobin Concent 32.2 G/DL (32.0-36.0) Red Cell Distribution Width 12.9 % (11.6-14.8) Platelet Count 303 K/UL (150-450) Mean Platelet Volume 5.2 FL (6.5-10.1) L Neutrophils (%) (Auto) 77.9 % (45.0-75.0) H Lymphocytes (%) (Auto) 10.0 % (20.0-45.0) L Monocytes (%) (Auto) 10.1 % (1.0-10.0) H Eosinophils (%) (Auto) 0.8 % (0.0-3.0) Basophils (%) (Auto) 1.2 % (0.0-2.0) Sodium Level 136 MMOL/L (136-145) Potassium Level 3.9 MMOL/L (3.5-5.1) Chloride Level 107 MMOL/L (98-107) Carbon Dioxide Level 26 MMOL/L (21-32) Anion Gap 3 mmol/L (5-15) L Blood Urea Nitrogen 16 mg/dL (7-18) Creatinine 0.5 MG/DL (0.55-1.30) L Estimat Glomerular Filtration Rate > 60 mL/min (>60) Glucose Level 125 MG/DL (74-106) H Calcium Level 7.6 MG/DL (8.5-10.1) L Phosphorus Level 1.6 MG/DL (2.5-4.9) L Magnesium Level 1.5 MG/DL (1.8-2.4) L Intake and Output 05/20/18 05/21/18 19:00 07:00 Intake Total 3050 ml 1218.500 ml Output Total 400 ml Balance 2650 ml 1218.500 ml Intake Oral 1200 ml 240 ml IV Total 1850 ml 978.500 ml Output Urine Total 400 ml # Bowel Movements 2 Objective General Appearance: alert, thin, agitated EENT: PERRL/EOMI, normal ENT inspection Neck: non-tender, normal alignment, supple, normal inspection Cardiovascular: normal peripheral pulses, normal rate, no gallop/murmur, no JVD , irregularly irregular Respiratory/Chest: chest wall non-tender, lungs clear, normal breath sounds, no respiratory distress, no accessory muscle use Abdomen: normal bowel sounds, non tender, soft, no organomegaly, no mass Extremities: normal range of motion, non-tender Neurologic: estimator binding II-XII grossly 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 D/C eliquis ; change to lovenox prior to surgery (3) Hypertension Assessment & Plan: continue metoprolol (4) CAD (coronary artery disease) (5) Bipolar disorder (6) Fever (7) Decubitus skin ulcer Assessment & Plan: Bilateral above the knee amputation scheduled for Tue-see surgery consult. (8) Sepsis Assessment & Plan: Continue antibiotic per ID (9) UTI (urinary tract infection) Assessment & Plan: Mixed culture-continue vanco and cefepime per ID (10) Leukocytosis (11) Deep venous thrombosis of right femoral vein Assessment & Plan: D/C eliquis. Start lovenox SQ; D/C lovenox on Tuesday prior to surgery Status: not improved Daniel Jackson MD May 21, 2018 15:20
[2018-05-21 16:00] VITALS: BP 146/76
[2018-05-21 20:00] VITALS: BP 137/80
[2018-05-22] VITALS: BP 131/66
[2018-05-22] MEDS: Potassium Chloride 10 MEQ in D5 1/2NS 1,000 ML IV SCH ×2 (01:54→17:18)
[2018-05-22] MEDS: metroNIDAZOLE 500mg tab ORAL SCH ×3 (01:55→17:19)
[2018-05-22] MEDS: Morphine Sulfate 2mg/ml Inj IVP PRN ×3 (01:55→13:58)
[2018-05-22 04:00] VITALS: BP 148/76
[2018-05-22] MEDS: Vancomycin 750mg/NS 250ml 250 ML IVPB SCH ×3 (05:15→21:59)
[2018-05-22 05:25] LABS: BASOPHILS % (AUTO) 0.9 % (0.0-2.0); EOSINOPHILS % (AUTO) 1.1 % (0.0-3.0); HEMATOCRIT 32.7 % (42.0-52.0); HEMOGLOBIN 10.5 G/DL (14.2-18.0); LYMPHOCYTES % (AUTO) 15.1 % (20.0-45.0); MEAN CORPUSCULAR VOLUME 89 FL (80-99); MONOCYTES % (AUTO) 11.6 % (1.0-10.0); NEUTROPHILS % (AUTO) 71.3 % (45.0-75.0); PLATELET COUNT 281 K/UL (150-450); RED BLOOD COUNT 3.67 M/UL (4.70-6.10); RED CELL DISTRIBUTION WIDTH 12.8 % (11.6-14.8); WHITE BLOOD COUNT 9.6 K/UL (4.8-10.8)
[2018-05-22 05:55] LABS: ANION GAP 4 mmol/L (5-15); BLOOD UREA NITROGEN 13 mg/dL (7-18); CALCIUM 7.7 MG/DL (8.5-10.1); CARBON DIOXIDE 26 MMOL/L (21-32); CHLORIDE 106 MMOL/L (98-107); CREATININE 0.6 MG/DL (0.55-1.30); POTASSIUM 4.1 MMOL/L (3.5-5.1); SODIUM 136 MMOL/L (136-145)
[2018-05-22 08:00] VITALS: BP 146/79
[2018-05-22] MEDS: Miralax 17gm pkt ORAL SCH (09:00)
[2018-05-22] MEDS: Enoxaparin 100mg Inj SUBQ SCH ×2 (09:00→21:00)
[2018-05-22] MEDS ORDERED: LORazepam Inj 2mg/ml 1ml IV SCH (09:30)
[2018-05-22] MEDS: Digoxin 0.125mg tab ORAL SCH (09:42)
[2018-05-22] MEDS: Phospha 250 Neutral tab ORAL SCH (09:42)
[2018-05-22] MEDS: Metoprolol Tartrate 50mg tab ORAL SCH ×2 (09:43→22:00)
[2018-05-22] MEDS: Amiodarone 200mg tab ORAL SCH (09:43)
[2018-05-22] MEDS: Cefepime HCl 1 GM in D5W 55 ML IVPB SCH ×2 (10:00→22:00)
[2018-05-22 10:11] LABS: INR 1.2 (0.9-1.1)
--- NOTE | 2018-05-22 11:12 | Cardiac Electrophysiology PN ---
Assessment/Plan Assessment/Plan 1. Paroxysmal Atrial fibrillation and flutter with RVR Continue digoxin 0.125 daily, metoprolol 50 bid and Amiodarone 200 daily. Lovenox 100 b.i.d. held for surgery today 2. Borderline hypotension. Resolved 3. Fever and sepsis, on antibiotic with vancomycin and cefepime. 4. History of dementia and severe psychosis, on Seroquel. 5. Severe bilateral leg ulcers and sacral decubitus. FU Dr Osuna Bilateral AKA pending today MONSERRAT RN Subjective Subjective In SDU in and out of SR. NPO for Bilateral AKA awaiting daughter's consent.In resp isolation for possible TB Objective Last 24 Hour Vital Signs Date Time Temp Pulse Resp B/P (MAP) Pulse Ox O2 Delivery O2 Flow Rate FiO2 05/22/18 09:43 110 146/79 05/22/18 09:42 110 05/22/18 08:00 Room Air 05/22/18 08:00 107 05/22/18 08:00 97.3 110 17 146/79 (101) 96 05/22/18 08:00 97.3 74 17 146/79 (101) 96 05/22/18 04:00 Room Air 05/22/18 04:00 81 05/22/18 04:00 98.5 89 20 148/76 (100) 96 05/22/18 02:25 97.5 05/22/18 00:00 66 05/22/18 00:00 97.5 81 20 131/66 (87) 98 05/22/18 00:00 Room Air 05/21/18 21:10 79 126/77 05/21/18 20:17 86 18 Room Air 21 05/21/18 20:00 98.2 103 18 137/80 (99) 96 05/21/18 20:00 77 05/21/18 20:00 Room Air 05/21/18 16:00 98.2 89 18 146/76 (99) 96 05/21/18 16:00 93 05/21/18 16:00 Room Air 05/21/18 12:00 62 05/21/18 12:00 Room Air 05/21/18 12:00 98.2 62 22 125/76 (92) 93 Intake and Output 05/21/18 05/22/18 19:00 07:00 Intake Total 1505.000 ml 1384.8 ml Output Total 400 ml 750 ml Balance 1105.000 ml 634.8 ml Intake Oral 200 ml IV Total 1305.000 ml 1384.8 ml Output Urine Total 400 ml 750 ml # Bowel Movements 1 1 Laboratory Tests Test 05/22/18 03:40 05/22/18 06:00 05/22/18 09:35 White Blood Count 9.6 K/UL (4.8-10.8) Red Blood Count 3.67 M/UL (4.70-6.10) L Hemoglobin 10.5 G/DL (14.2-18.0) L Hematocrit 32.7 % (42.0-52.0) L Mean Corpuscular Volume 89 FL (80-99) Mean Corpuscular Hemoglobin 28.5 PG (27.0-31.0) Mean Corpuscular Hemoglobin Concent 31.9 G/DL (32.0-36.0) L Red Cell Distribution Width 12.8 % (11.6-14.8) Platelet Count 281 K/UL (150-450) Mean Platelet Volume 4.8 FL (6.5-10.1) L Neutrophils (%) (Auto) 71.3 % (45.0-75.0) Lymphocytes (%) (Auto) 15.1 % (20.0-45.0) L Monocytes (%) (Auto) 11.6 % (1.0-10.0) H Eosinophils (%) (Auto) 1.1 % (0.0-3.0) Basophils (%) (Auto) 0.9 % (0.0-2.0) Sodium Level 136 MMOL/L (136-145) Potassium Level 4.1 MMOL/L (3.5-5.1) Chloride Level 106 MMOL/L (98-107) Carbon Dioxide Level 26 MMOL/L (21-32) Anion Gap 4 mmol/L (5-15) L Blood Urea Nitrogen 13 mg/dL (7-18) Creatinine 0.6 MG/DL (0.55-1.30) Estimat Glomerular Filtration Rate > 60 mL/min (>60) Glucose Level 93 MG/DL (74-106) Calcium Level 7.7 MG/DL (8.5-10.1) L Phosphorus Level 2.0 MG/DL (2.5-4.9) L Magnesium Level 1.5 MG/DL (1.8-2.4) L TB Test (T-Spot) Pending TB Test Nil Control (T-Spot) Pending TB Test Panel A (T-Spot) Pending TB Test Panel B (T-Spot) Pending TB Test Positive Control (T-Spot) Pending Urine Legionella Antigen Pending Prothrombin Time 12.3 SEC (9.30-11.50) H Prothromb Time International Ratio 1.2 (0.9-1.1) H Activated Partial Thromboplast Time 32 SEC (23-33) Objective HEAD AND NECK: Mild JVD. LUNGS: Coarse rhonchi. CARDIOVASCULAR: Irregular S1 and S2 with no murmur. ABDOMEN: Soft. EXTREMITIES: Bilateral leg ulcers with dressing Amandeep Arora MD May 22, 2018 11:12
[2018-05-22 12:00] VITALS: BP 123/70
--- NOTE | 2018-05-22 13:11 | Pulmonology Progress Note ---
Assessment/Plan Problems: (1) Sepsis (2) Atrial fibrillation (3) Decubitus skin ulcer (4) Bipolar disorder (5) CAD (coronary artery disease) (6) HTN (hypertension) (7) CVA (cerebral vascular accident) Assessment/Plan iv abx wound care needs to have both legs amputated, if family consents f/u cultures monitor BP watch heart rate dvt prophylaxis symptomatic treatment Subjective ROS Limited/Unobtainable: No Constitutional: Reports: no symptoms HEENT: Repors: no symptoms Respiratory: Reports: no symptoms Allergies: Coded Allergies: MILK (Verified Allergy, Unknown, 02/02/18) Objective Last 24 Hour Vital Signs Date Time Temp Pulse Resp B/P (MAP) Pulse Ox O2 Delivery O2 Flow Rate FiO2 05/22/18 12:00 97.8 53 20 123/70 (87) 96 05/22/18 12:00 Room Air 05/22/18 09:43 110 146/79 05/22/18 09:42 110 05/22/18 08:00 Room Air 05/22/18 08:00 107 05/22/18 08:00 97.3 110 17 146/79 (101) 96 05/22/18 08:00 97.3 74 17 146/79 (101) 96 05/22/18 04:00 Room Air 05/22/18 04:00 81 05/22/18 04:00 98.5 89 20 148/76 (100) 96 05/22/18 02:25 97.5 05/22/18 00:00 66 05/22/18 00:00 97.5 81 20 131/66 (87) 98 05/22/18 00:00 Room Air 05/21/18 21:10 79 126/77 05/21/18 20:17 86 18 Room Air 21 05/21/18 20:00 98.2 103 18 137/80 (99) 96 05/21/18 20:00 77 05/21/18 20:00 Room Air 05/21/18 16:00 98.2 89 18 146/76 (99) 96 05/21/18 16:00 93 05/21/18 16:00 Room Air Intake and Output 05/21/18 05/22/18 19:00 07:00 Intake Total 1505.000 ml 1384.8 ml Output Total 400 ml 750 ml Balance 1105.000 ml 634.8 ml Intake Oral 200 ml IV Total 1305.000 ml 1384.8 ml Output Urine Total 400 ml 750 ml # Bowel Movements 1 1 General Appearance: WD/WN HEENT: normocephalic, atraumatic Respiratory/Chest: chest wall non-tender, lungs clear Cardiovascular: normal peripheral pulses, normal rate Abdomen: normal bowel sounds, soft, non tender Genitourinary: normal external genitalia Skin: no lesions Laboratory Tests 05/22/18 03:40: White Blood Count 9.6, Red Blood Count 3.67L, Hemoglobin 10.5L, Hematocrit 32.7L , Mean Corpuscular Volume 89, Mean Corpuscular Hemoglobin 28.5, Mean Corpuscular Hemoglobin Concent 31.9L, Red Cell Distribution Width 12.8, Platelet Count 281, Mean Platelet Volume 4.8L, Neutrophils (%) (Auto) 71.3, Lymphocytes (%) (Auto) 15.1L, Monocytes (%) (Auto) 11.6H, Eosinophils (%) (Auto ) 1.1, Basophils (%) (Auto) 0.9, Sodium Level 136, Potassium Level 4.1, Chloride Level 106, Carbon Dioxide Level 26, Anion Gap 4L, Blood Urea Nitrogen 13, Creatinine 0.6, Estimat Glomerular Filtration Rate > 60, Glucose Level 93, Calcium Level 7.7L, Phosphorus Level 2.0L, Magnesium Level 1.5L, TB Test (T-Spot ) [Pending], TB Test Nil Control (T-Spot) [Pending], TB Test Panel A (T-Spot) [ Pending], TB Test Panel B (T-Spot) [Pending], TB Test Positive Control (T-Spot) [Pending] 05/22/18 06:00: Urine Legionella Antigen [Pending] 05/22/18 09:35: Prothrombin Time 12.3H, Prothromb Time International Ratio 1.2H, Activated Partial Thromboplast Time 32 Current Medications Medications (Trade) Dose Ordered Sig/Erlin Route PRN Reason Start Time Stop Time Status Last Admin Dose Admin Acetaminophen (Tylenol) 650 mg Q4H PRN ORAL Mild Pain/Temp > 100.5 05/18/18 08:45 06/11/18 12:34 05/22/18 07:23 Albuterol/ Ipratropium (Albuterol/ Ipratropium) 3 ml Q4H PRN HHN Shortness of Breath 05/20/18 11:58 05/24/18 11:57 Amiodarone HCl (Cordarone) 200 mg DAILY ORAL 05/20/18 09:00 06/17/18 08:59 05/22/18 09:43 Cefepime HCl 1 gm/ Dextrose 55 ml @ 110 mls/hr EVERY 12 HOURS IVPB 05/21/18 12:00 05/28/18 11:59 05/22/18 10:00 Digoxin (Lanoxin) 0.125 mg DAILY ORAL 05/18/18 09:00 06/12/18 08:59 05/22/18 09:42 Enoxaparin Sodium (Lovenox) 100 mg EVERY 12 HOURS SUBQ 05/19/18 21:00 06/18/18 20:59 05/20/18 20:44 Gabapentin (Neurontin) 100 mg THREE TIMES A DAY ORAL 05/18/18 09:00 06/11/18 17:59 05/22/18 09:42 Lorazepam (Ativan 2mg/ml 1ml) 1 mg ONCE IV 05/22/18 09:30 05/29/18 10:30 Metoprolol Tartrate (Lopressor) 50 mg Q12HR ORAL 05/18/18 09:00 06/11/18 20:59 05/22/18 09:43 Metronidazole (Flagyl) 500 mg Q8H ORAL 05/19/18 18:00 05/26/18 17:59 05/22/18 09:42 Morphine Sulfate (Morphine Sulfate) 2 mg Q4H PRN IVP pain 4-10 05/19/18 14:15 05/26/18 14:14 05/22/18 09:45 Polyethylene Glycol (Miralax) 17 gm DAILY ORAL 05/18/18 09:00 06/16/18 10:59 05/21/18 08:52 Potassium Chloride 10 meq/ Dextrose/Sodium Chloride 1,005 ml @ 75 mls/hr [id number] IV 05/18/18 05:30 06/12/18 14:59 05/22/18 01:54 Quetiapine Fumarate (SEROquel) 100 mg BEDTIME ORAL 05/18/18 21:00 06/11/18 20:59 05/21/18 20:10 Sodium Hypochlorite (Dakin's Quarter Strength) 1 applic DAILY TOPIC 05/18/18 09:00 06/12/18 14:18 05/21/18 09:00 Vancomycin HCl (Vanco rx to dose) 1 ea DAILY PRN MISC Per rx protocol 05/18/18 09:00 06/11/18 14:59 Vancomycin/Sodium Chloride 250 ml @ 166.667 mls/hr Q8H IVPB 05/18/18 13:00 05/24/18 12:59 05/22/18 05:15 Minerva Montesinos MD May 22, 2018 13:11
[2018-05-22] MEDS: Dakin's 0.125% Soln (Quarter Strength) 16oz TOPIC SCH (13:58)
--- NOTE | 2018-05-22 14:05 | Infectious Diseases Prog Note ---
Assessment/Plan Assessment/Plan 68 yo male who was transferred from [place] where he initially presented for AMS from [facility]. Small lung cavitary lesion/ PNA- suspect likely to aspiration; lower suspicion for TB and/or fungal etiologies -CT c/a/p: 10 mm opacity in the peripheral anterolateral right upper lobe with small central cavitation. Patchy groundglass opacity in the posterior right upper lobe. Suspect that these represent inflammatory/infectious lesions, but neoplastic etiology of either is certainly possible. Large left and moderate right pleural effusions. Resultant compressive atelectasis of portions of the lower lobes. Equivocal distal esophageal wall thickening, could indicate esophagitis if real -sp cx p -AFB sp cx p Sepsis / to bacteremia (at OSH) Likely source is skin ulcer Blood Cx 05/12/18 at [facility] -Bcx 05/12 and (here) NTD 2d echo: no vegetations 05/15 CXR: Right midlung nodule. Absence of this finding on previous study makes this more likely to be a focus of inflammation, but rapidly growing neoplasm not excludable. Left basilar hazy opacity. Most likely a moderate to large pleural effusion.Component of infiltrate or atelectasis is also possible 05/12 CXR: Asymmetric ill-defined confluent groundglass opacity within the left mid/inferior lung, of uncertain etiology. 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 Hypertension. Sacral decubitus ulcers. Bipolar disorder. Coronary artery disease. Plan - Continue Cefepime #11 and Vancomycin #11 pending Cx -Cont PO Flagyl #4 for anaerobic coverage -Airborne isolation -AFB sp cx x3,MTB PCR x1 -f/u cocci ab, CrAg, fungal sp cx, T-spot - f/u Blood Cx - Wound care - Monitor CBC and Temps -f/u sp cx, u/a w/ reflex -Cdiff if diarrhea -Obtain records from [facility] for BCx results -Sx and podiatry f/u: recommend b/l AKA Thank you for this consult. We will continue to follow the patient during this hospitalization. Discussed withRN and Dr Benyamini, Subjective Allergies: Coded Allergies: MILK (Verified Allergy, Unknown, 02/02/18) Subjective afebrile leukocytosis resolved AFB sp cx p At RA Objective Vital Signs Last 24 Hour Vital Signs Date Time Temp Pulse Resp B/P (MAP) Pulse Ox O2 Delivery O2 Flow Rate FiO2 05/22/18 12:00 97.8 53 20 123/70 (87) 96 05/22/18 12:00 Room Air 05/22/18 09:43 110 146/79 05/22/18 09:42 110 05/22/18 08:00 Room Air 05/22/18 08:00 107 05/22/18 08:00 97.3 110 17 146/79 (101) 96 05/22/18 08:00 97.3 74 17 146/79 (101) 96 05/22/18 04:00 Room Air 05/22/18 04:00 81 05/22/18 04:00 98.5 89 20 148/76 (100) 96 05/22/18 02:25 97.5 05/22/18 00:00 66 05/22/18 00:00 97.5 81 20 131/66 (87) 98 05/22/18 00:00 Room Air 05/21/18 21:10 79 126/77 05/21/18 20:17 86 18 Room Air 21 05/21/18 20:00 98.2 103 18 137/80 (99) 96 05/21/18 20:00 77 05/21/18 20:00 Room Air 05/21/18 16:00 98.2 89 18 146/76 (99) 96 05/21/18 16:00 93 05/21/18 16:00 Room Air Height (Feet): 6 Height (Inches): 5.00 Weight (Pounds): 207 Objective Gen: NAD. Mumbling HEENT: NCAT, MMM, EOMI, No Oral lesion, no scleral icterus NECK: full range of motion, supple, no meningismus, No LAD, No JVD LUNGS: CTAB, No W/C, No Accessory muscle use CARDS: RRR, S1, S2, No M/R/G ABD: Soft, NT, ND, No R/G, + BS, No HSM, No Masses : Deferred Ext: C/C/E, Pulses 2+ B/L (DP, Rad) NEURO: A/O x 0, Strength and Sensation Grossly intact PSYCH: mood/affect normal SKIN: Left foot wound. No purulent drainage, Feet now bandaged Laboratory Tests Test 05/22/18 03:40 05/22/18 06:00 05/22/18 09:35 White Blood Count 9.6 K/UL (4.8-10.8) Red Blood Count 3.67 M/UL (4.70-6.10) L Hemoglobin 10.5 G/DL (14.2-18.0) L Hematocrit 32.7 % (42.0-52.0) L Mean Corpuscular Volume 89 FL (80-99) Mean Corpuscular Hemoglobin 28.5 PG (27.0-31.0) Mean Corpuscular Hemoglobin Concent 31.9 G/DL (32.0-36.0) L Red Cell Distribution Width 12.8 % (11.6-14.8) Platelet Count 281 K/UL (150-450) Mean Platelet Volume 4.8 FL (6.5-10.1) L Neutrophils (%) (Auto) 71.3 % (45.0-75.0) Lymphocytes (%) (Auto) 15.1 % (20.0-45.0) L Monocytes (%) (Auto) 11.6 % (1.0-10.0) H Eosinophils (%) (Auto) 1.1 % (0.0-3.0) Basophils (%) (Auto) 0.9 % (0.0-2.0) Sodium Level 136 MMOL/L (136-145) Potassium Level 4.1 MMOL/L (3.5-5.1) Chloride Level 106 MMOL/L (98-107) Carbon Dioxide Level 26 MMOL/L (21-32) Anion Gap 4 mmol/L (5-15) L Blood Urea Nitrogen 13 mg/dL (7-18) Creatinine 0.6 MG/DL (0.55-1.30) Estimat Glomerular Filtration Rate > 60 mL/min (>60) Glucose Level 93 MG/DL (74-106) Calcium Level 7.7 MG/DL (8.5-10.1) L Phosphorus Level 2.0 MG/DL (2.5-4.9) L Magnesium Level 1.5 MG/DL (1.8-2.4) L TB Test (T-Spot) Pending TB Test Nil Control (T-Spot) Pending TB Test Panel A (T-Spot) Pending TB Test Panel B (T-Spot) Pending TB Test Positive Control (T-Spot) Pending Urine Legionella Antigen Pending Prothrombin Time 12.3 SEC (9.30-11.50) H Prothromb Time International Ratio 1.2 (0.9-1.1) H Activated Partial Thromboplast Time 32 SEC (23-33) Current Medications Medications (Trade) Dose Ordered Sig/Erlin Route PRN Reason Start Time Stop Time Status Last Admin Dose Admin Acetaminophen (Tylenol) 650 mg Q4H PRN ORAL Mild Pain/Temp > 100.5 05/18/18 08:45 06/11/18 12:34 05/22/18 07:23 Albuterol/ Ipratropium (Albuterol/ Ipratropium) 3 ml Q4H PRN HHN Shortness of Breath 05/20/18 11:58 05/24/18 11:57 Amiodarone HCl (Cordarone) 200 mg DAILY ORAL 05/20/18 09:00 06/17/18 08:59 05/22/18 09:43 Cefepime HCl 1 gm/ Dextrose 55 ml @ 110 mls/hr EVERY 12 HOURS IVPB 05/21/18 12:00 05/28/18 11:59 05/22/18 10:00 Digoxin (Lanoxin) 0.125 mg DAILY ORAL 05/18/18 09:00 06/12/18 08:59 05/22/18 09:42 Enoxaparin Sodium (Lovenox) 100 mg EVERY 12 HOURS SUBQ 05/19/18 21:00 06/18/18 20:59 05/20/18 20:44 Gabapentin (Neurontin) 100 mg THREE TIMES A DAY ORAL 05/18/18 09:00 06/11/18 17:59 05/22/18 09:42 Lorazepam (Ativan 2mg/ml 1ml) 1 mg ONCE IV 05/22/18 09:30 05/29/18 10:30 Metoprolol Tartrate (Lopressor) 50 mg Q12HR ORAL 05/18/18 09:00 06/11/18 20:59 05/22/18 09:43 Metronidazole (Flagyl) 500 mg Q8H ORAL 05/19/18 18:00 05/26/18 17:59 05/22/18 09:42 Morphine Sulfate (Morphine Sulfate) 2 mg Q4H PRN IVP pain 4-10 05/19/18 14:15 05/26/18 14:14 05/22/18 13:58 Polyethylene Glycol (Miralax) 17 gm DAILY ORAL 05/18/18 09:00 06/16/18 10:59 05/21/18 08:52 Potassium Chloride 10 meq/ Dextrose/Sodium Chloride 1,005 ml @ 75 mls/hr [id number] IV 05/18/18 05:30 06/12/18 14:59 05/22/18 01:54 Quetiapine Fumarate (SEROquel) 100 mg BEDTIME ORAL 05/18/18 21:00 06/11/18 20:59 05/21/18 20:10 Sodium Hypochlorite (Dakin's Quarter Strength) 1 applic DAILY TOPIC 05/18/18 09:00 06/12/18 14:18 05/22/18 13:58 Vancomycin HCl (Vanco rx to dose) 1 ea DAILY PRN MISC Per rx protocol 05/18/18 09:00 06/11/18 14:59 Vancomycin/Sodium Chloride 250 ml @ 166.667 mls/hr Q8H IVPB 05/18/18 13:00 05/24/18 12:59 05/22/18 13:57 Alma Elkins M.D. May 22, 2018 14:05
--- NOTE | 2018-05-22 14:46 | General Surgery Progress Note ---
General Surgery-Progress Note Subjective Additional Comments very awake. very alert today. daughter flew in and here at bedside today. Objective Last 24 Hour Vital Signs Date Time Temp Pulse Resp B/P (MAP) Pulse Ox O2 Delivery O2 Flow Rate FiO2 05/22/18 12:00 97.8 53 20 123/70 (87) 96 05/22/18 12:00 Room Air 05/22/18 09:43 110 146/79 05/22/18 09:42 110 05/22/18 08:00 Room Air 05/22/18 08:00 107 05/22/18 08:00 97.3 110 17 146/79 (101) 96 05/22/18 08:00 97.3 74 17 146/79 (101) 96 05/22/18 04:00 Room Air 05/22/18 04:00 81 05/22/18 04:00 98.5 89 20 148/76 (100) 96 05/22/18 02:25 97.5 05/22/18 00:00 66 05/22/18 00:00 97.5 81 20 131/66 (87) 98 05/22/18 00:00 Room Air 05/21/18 21:10 79 126/77 05/21/18 20:17 86 18 Room Air 21 05/21/18 20:00 98.2 103 18 137/80 (99) 96 05/21/18 20:00 77 05/21/18 20:00 Room Air 05/21/18 16:00 98.2 89 18 146/76 (99) 96 05/21/18 16:00 93 05/21/18 16:00 Room Air I&O Intake and Output 05/21/18 05/22/18 19:00 07:00 Intake Total 1505.000 ml 1384.8 ml Output Total 400 ml 750 ml Balance 1105.000 ml 634.8 ml Intake Oral 200 ml IV Total 1305.000 ml 1384.8 ml Output Urine Total 400 ml 750 ml # Bowel Movements 1 1 Dressing: saturated Wound: other - foul smell Drains: none Cardiovascular: RSR Respiratory: clear Abdomen: soft, flat, non-tender, present bowel sounds Extremities: edema, tenderness, cyanosis, other Laboratory Tests Test 05/22/18 03:40 05/22/18 06:00 12/3/18 09:35 White Blood Count 9.6 K/UL (4.8-10.8) Red Blood Count 3.67 M/UL (4.70-6.10) L Hemoglobin 10.5 G/DL (14.2-18.0) L Hematocrit 32.7 % (42.0-52.0) L Mean Corpuscular Volume 89 FL (80-99) Mean Corpuscular Hemoglobin 28.5 PG (27.0-31.0) Mean Corpuscular Hemoglobin Concent 31.9 G/DL (32.0-36.0) L Red Cell Distribution Width 12.8 % (11.6-14.8) Platelet Count 281 K/UL (150-450) Mean Platelet Volume 4.8 FL (6.5-10.1) L Neutrophils (%) (Auto) 71.3 % (45.0-75.0) Lymphocytes (%) (Auto) 15.1 % (20.0-45.0) L Monocytes (%) (Auto) 11.6 % (1.0-10.0) H Eosinophils (%) (Auto) 1.1 % (0.0-3.0) Basophils (%) (Auto) 0.9 % (0.0-2.0) Sodium Level 136 MMOL/L (136-145) Potassium Level 4.1 MMOL/L (3.5-5.1) Chloride Level 106 MMOL/L (98-107) Carbon Dioxide Level 26 MMOL/L (21-32) Anion Gap 4 mmol/L (5-15) L Blood Urea Nitrogen 13 mg/dL (7-18) Creatinine 0.6 MG/DL (0.55-1.30) Estimat Glomerular Filtration Rate > 60 mL/min (>60) Glucose Level 93 MG/DL (74-106) Calcium Level 7.7 MG/DL (8.5-10.1) L Phosphorus Level 2.0 MG/DL (2.5-4.9) L Magnesium Level 1.5 MG/DL (1.8-2.4) L TB Test (T-Spot) Pending TB Test Nil Control (T-Spot) Pending TB Test Panel A (T-Spot) Pending TB Test Panel B (T-Spot) Pending TB Test Positive Control (T-Spot) Pending Urine Legionella Antigen Pending Prothrombin Time 12.3 SEC (9.30-11.50) H Prothromb Time International Ratio 1.2 (0.9-1.1) H Activated Partial Thromboplast Time 32 SEC (23-33) Plan Problems: (1) Sepsis Assessment & Plan: etiology of leukocytosis unknown will need further work up IV abx appreciate ID input trend labs Discussed findings with Vascular and Podiatry Agree that lower extremities are not salvageable. Would recommend bilateral AKA Need to contact family and discuss. Patient without capacity to make decision. Need to work on consent Needs POA or designated Next of Kin as proposed surgery is very invasive Spoke with two daughters. Sister is out of the country. Very long discussion about medical condition and care plan discussed clinical findings discussed radiological findings. discussed medical condition discussed multi-disciplinary team recommendations for AKA bilaterally daughters very reasonable and aware of his condition. eldest daughter states that she had a discussion with him 1 month about regarding amputation as it had been recommended prior. states that father had lower extremities amputated for similar reasons at similar age. spoke with family today. they had family discussion and expressed that they would like to proceed with surgery b/l AKA given above findings. I explained that sepsis is improved and surgery is no longer emergency but still recommended. Patient in better mental capacity today and after long discussion expressed he has been putting this off for some time now but understands and agrees to bilateral AKA daughter to fly in this weekend daughter here today. multiple family members on facetime. discussed case and condition. he is very alert and responsive today. evaluated wounds with family reviewed history and current condition after long discussion both patient and family agreed that bilateral AKA best management option for patient. I offered all possible options including no intervention to them. We discussed local wound care, BKA, AKA, no intervention, etc and after all options given patient and family believe AKA bilaterally is best for him. He wants to stop having pain in both legs and no longer wants wound care with salvage. would prefer to "start fresh" with AKA. he hopes to one day be able to have prosthetic but plans for wheelchair until then. believes wheelchair mobility after b/l AKA will be easier for him as currently difficult for wheelchair with how his extremities are. NPO p mn plan for bilateral AKA tomorrow afternoon thank you (2) Decubitus skin ulcer Assessment & Plan: Patient well known to me. Has had chronic wounds on sacrum, buttock, and lower extremities. Prior had maggots in lower extremities treated with Dakins and wound care which are since resolved. Multiple pressure ulcers. Patient unable to participate in exam and care plan. Now presents with multiple ulcerations to both lower extremities. Wounds are irregular malodorous. Both lower ext. cool to touch. Toes necrotic with ulcerations 1st, 2nd and 3rd metatarsals ulcerated. Ulcers dorsal aspects of toes L foot.Web spaces of toes are dry . Full thickness pressure injury to sacrum with 60% slough,(+) epibole.Wound measures (L)7cm x (W)7.5cm x (D)2.5cm. Periwound dark .Wound malodorous. Right buttock and ischial tuberosity which are large and with eschar cap unstageable full thickness. both heels have DTI with blood blisters noted. Wounds have significantly deteriorated since last admission with new wounds noted on lower extremities and buttock. Areas of prior maggot infection are healing but still with wounds. Refer to wound care photos for details. Tx.Plan: Cleanse both lower ext wounds with NS . Skin protectant .Dakin's 0.25% moist gauze, Cover with ABD and wrap with soft chavez daily an dprn Apply Light dusting of [place] Starch or baby powder in web spaces of toes on feet Clean sacral decubitus and buttock ulcer with NS, apply skin protectant / honey gel, apply foam dressing daily and prn Air Fluidized mattress on bed (P200). Encourage and assist with repositioning at least every 2hours or as tolerated. Off-load heels with pillow. would appreciate Podiatry and Vascular consult as I dont anticipate lower extremity will be salvageable at this time. Recommend bilateral AKA. patient does not seem to have capacity. psych eval Duplex studies Goyo Osuna May 22, 2018 14:46
--- NOTE | 2018-05-22 14:49 | Pre-Procedure Note/Attestation ---
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 I attest that, if there was a reasonable possibility of needing a blood transfusion, the patient (or the patient's legal circulation sales representative) was given the [facility] standardized written summary, pursuant to the Bennett Nazanin Blood Safety Act ([place] Health and Safety Code # 1645, as amended). I attest that I re-evaluated the patient just prior to the surgery and that there has been no change in the patient's H&P, except as documented below: Goyo Osuna May 22, 2018 14:49
[2018-05-22 16:00] VITALS: BP 145/62
--- NOTE | 2018-05-22 16:30 | Diagnostic Imaging Report ---
Indication: Shortness of breath Technique: One view of the chest Comparison: 05/16/2018 Findings: Again demonstrated is a left pleural effusion. There is suggestion of a small right pleural effusion, new or increased from previous exam. Patchy opacity in the right upper lung is less evident currently but probably still evident.. Impression: Stable left, new or increased right pleural effusions. Other stable findings as described
--- NOTE | 2018-05-22 18:14 | Internal Med Progress Note ---
Subjective Date of Service: May 22, 2018 Physician Name Daniel Jackson Attending Physician Pedro Caban MD Current Medications Medications (Trade) Dose Ordered Sig/Erlin Route PRN Reason Start Time Stop Time Status Last Admin Dose Admin Acetaminophen (Tylenol) 650 mg Q4H PRN ORAL Mild Pain/Temp > 100.5 05/18/18 08:45 06/11/18 12:34 05/22/18 07:23 Albuterol/ Ipratropium (Albuterol/ Ipratropium) 3 ml Q4H PRN HHN Shortness of Breath 05/20/18 11:58 05/24/18 11:57 Amiodarone HCl (Cordarone) 200 mg DAILY ORAL 05/20/18 09:00 06/17/18 08:59 05/22/18 09:43 Cefepime HCl 1 gm/ Dextrose 55 ml @ 110 mls/hr EVERY 12 HOURS IVPB 05/21/18 12:00 05/28/18 11:59 05/22/18 10:00 Digoxin (Lanoxin) 0.125 mg DAILY ORAL 05/18/18 09:00 06/12/18 08:59 05/22/18 09:42 Enoxaparin Sodium (Lovenox) 100 mg EVERY 12 HOURS SUBQ 05/19/18 21:00 06/18/18 20:59 05/20/18 20:44 Gabapentin (Neurontin) 100 mg THREE TIMES A DAY ORAL 05/18/18 09:00 06/11/18 17:59 05/22/18 17:19 Lorazepam (Ativan 2mg/ml 1ml) 1 mg ONCE IV 05/22/18 09:30 05/29/18 10:30 05/22/18 15:25 Metoprolol Tartrate (Lopressor) 50 mg Q12HR ORAL 05/18/18 09:00 06/11/18 20:59 05/22/18 09:43 Metronidazole (Flagyl) 500 mg Q8H ORAL 05/19/18 18:00 05/26/18 17:59 05/22/18 17:19 Morphine Sulfate (Morphine Sulfate) 2 mg Q4H PRN IVP pain 4-10 05/19/18 14:15 05/26/18 14:14 05/22/18 13:58 Polyethylene Glycol (Miralax) 17 gm DAILY ORAL 05/18/18 09:00 06/16/18 10:59 05/21/18 08:52 Potassium Chloride 10 meq/ Dextrose/Sodium Chloride 1,005 ml @ 75 mls/hr [id number] IV 05/18/18 05:30 06/12/18 14:59 05/22/18 17:18 Quetiapine Fumarate (SEROquel) 100 mg BEDTIME ORAL 05/18/18 21:00 06/11/18 20:59 05/21/18 20:10 Sodium Hypochlorite (Dakin's Quarter Strength) 1 applic DAILY TOPIC 05/18/18 09:00 06/12/18 14:18 05/22/18 13:58 Sodium Chloride 1,000 ml @ 75 mls/hr [id number] IVLG 05/22/18 14:58 06/21/18 14:57 05/22/18 15:26 Vancomycin HCl (Vanco rx to dose) 1 ea DAILY PRN MISC Per rx protocol 05/18/18 09:00 06/11/18 14:59 Vancomycin/Sodium Chloride 250 ml @ 166.667 mls/hr Q8H IVPB 05/18/18 13:00 05/24/18 12:59 05/22/18 13:57 Allergies: Coded Allergies: MILK (Verified Allergy, Unknown, 02/02/18) ROS Limited/Unobtainable: No Constitutional: Reports: no symptoms HEENT: Reports: no symptoms Cardiovascular: Reports: no symptoms Respiratory: Reports: no symptoms Gastrointestinal/Abdominal: Reports: no symptoms Genitourinary: Reports: no symptoms 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: Reports: no symptoms Subjective 68 YO A M admitted with altered mental status. Now sepsis and atrial fibrillation with rapid rate. Cover for Int Jerman-Dr Caban. LILIBETH. Scheduled for bilateral above the knee amputation 05/23/18 Objective Last Vital Signs Date Time Temp Pulse Resp B/P (MAP) Pulse Ox O2 Delivery O2 Flow Rate FiO2 05/22/18 16:00 97.0 69 20 145/62 (89) 96 05/22/18 16:00 Room Air 05/21/18 20:17 21 Laboratory Tests Test 05/22/18 03:40 05/22/18 06:00 05/22/18 09:35 White Blood Count 9.6 K/UL (4.8-10.8) Red Blood Count 3.67 M/UL (4.70-6.10) L Hemoglobin 10.5 G/DL (14.2-18.0) L Hematocrit 32.7 % (42.0-52.0) L Mean Corpuscular Volume 89 FL (80-99) Mean Corpuscular Hemoglobin 28.5 PG (27.0-31.0) Mean Corpuscular Hemoglobin Concent 31.9 G/DL (32.0-36.0) L Red Cell Distribution Width 12.8 % (11.6-14.8) Platelet Count 281 K/UL (150-450) Mean Platelet Volume 4.8 FL (6.5-10.1) L Neutrophils (%) (Auto) 71.3 % (45.0-75.0) Lymphocytes (%) (Auto) 15.1 % (20.0-45.0) L Monocytes (%) (Auto) 11.6 % (1.0-10.0) H Eosinophils (%) (Auto) 1.1 % (0.0-3.0) Basophils (%) (Auto) 0.9 % (0.0-2.0) Sodium Level 136 MMOL/L (136-145) Potassium Level 4.1 MMOL/L (3.5-5.1) Chloride Level 106 MMOL/L (98-107) Carbon Dioxide Level 26 MMOL/L (21-32) Anion Gap 4 mmol/L (5-15) L Blood Urea Nitrogen 13 mg/dL (7-18) Creatinine 0.6 MG/DL (0.55-1.30) Estimat Glomerular Filtration Rate > 60 mL/min (>60) Glucose Level 93 MG/DL (74-106) Calcium Level 7.7 MG/DL (8.5-10.1) L Phosphorus Level 2.0 MG/DL (2.5-4.9) L Magnesium Level 1.5 MG/DL (1.8-2.4) L TB Test (T-Spot) Pending TB Test Nil Control (T-Spot) Pending TB Test Panel A (T-Spot) Pending TB Test Panel B (T-Spot) Pending TB Test Positive Control (T-Spot) Pending Urine Legionella Antigen Pending Prothrombin Time 12.3 SEC (9.30-11.50) H Prothromb Time International Ratio 1.2 (0.9-1.1) H Activated Partial Thromboplast Time 32 SEC (23-33) Microbiology Date/Time Source Procedure Growth Status 05/20/18 18:00 Sputum AFB Specimen Processing Tissue - Final Resulted 05/20/18 18:00 Sputum Acid Fast Bacilli Smear - Final Resulted 05/20/18 18:00 Sputum Acid Fast Bacilli Culture Pending Resulted Intake and Output 05/21/18 05/22/18 19:00 07:00 Intake Total 1505.000 ml 1384.8 ml Output Total 400 ml 750 ml Balance 1105.000 ml 634.8 ml Intake Oral 200 ml IV Total 1305.000 ml 1384.8 ml Output Urine Total 400 ml 750 ml # Bowel Movements 1 1 Objective General Appearance: alert, thin, agitated EENT: PERRL/EOMI, normal ENT inspection Neck: non-tender, normal alignment, supple, normal inspection Cardiovascular: normal peripheral pulses, normal rate, no gallop/murmur, no JVD , irregularly irregular Respiratory/Chest: chest wall non-tender, lungs clear, normal breath sounds, no respiratory distress, no accessory muscle use Abdomen: normal bowel sounds, non tender, soft, no organomegaly, no mass Extremities: normal range of motion, non-tender Neurologic: live in caregiver II-XII grossly 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 D/C eliquis ; change to lovenox prior to surgery (3) Hypertension Assessment & Plan: continue metoprolol (4) CAD (coronary artery disease) (5) Bipolar disorder (6) Fever (7) Decubitus skin ulcer Assessment & Plan: Bilateral above the knee amputation scheduled for Tues -see surgery consult. (8) Sepsis Assessment & Plan: Continue antibiotic per ID (9) UTI (urinary tract infection) Assessment & Plan: Mixed culture-continue vanco and cefepime per ID (10) Leukocytosis (11) Deep venous thrombosis of right femoral vein Assessment & Plan: D/C eliquis. Start lovenox SQ; D/C lovenox on Tuesday prior to surgery Status: not improved Daniel Jackson MD May 22, 2018 18:14
[2018-05-22 20:00] VITALS: BP 156/70
[2018-05-23] VITALS (12 sets, daily range): BP systolic 81–153; BP diastolic 42–100
[2018-05-23] MEDS: metroNIDAZOLE 500mg tab ORAL SCH ×3 (02:12→18:00)
[2018-05-23 05:25] LABS: BASOPHILS % (AUTO) 1.1 % (0.0-2.0); EOSINOPHILS % (AUTO) 1.1 % (0.0-3.0); HEMATOCRIT 31.9 % (42.0-52.0); HEMOGLOBIN 10.6 G/DL (14.2-18.0); LYMPHOCYTES % (AUTO) 18.1 % (20.0-45.0); MEAN CORPUSCULAR VOLUME 90 FL (80-99); MONOCYTES % (AUTO) 12.9 % (1.0-10.0); NEUTROPHILS % (AUTO) 66.8 % (45.0-75.0); PLATELET COUNT 268 K/UL (150-450); RED BLOOD COUNT 3.55 M/UL (4.70-6.10); RED CELL DISTRIBUTION WIDTH 12.6 % (11.6-14.8); WHITE BLOOD COUNT 8.6 K/UL (4.8-10.8)
[2018-05-23 05:34] LABS: INR 1.2 (0.9-1.1)
[2018-05-23] MEDS: Vancomycin 750mg/NS 250ml 250 ML IVPB SCH ×3 (05:40→23:06)
[2018-05-23] MEDS: Potassium Chloride 10 MEQ in D5 1/2NS 1,000 ML IV SCH ×2 (05:42→22:45)
[2018-05-23 05:59] LABS: ALANINE AMINOTRANSFERASE 17 U/L (12-78); ALBUMIN 1.1 G/DL (3.4-5.0); ALBUMIN/GLOBULIN RATIO 0.2 (1.0-2.7); ALKALINE PHOSPHATASE 157 U/L (46-116); ANION GAP 3 mmol/L (5-15); ASPARTATE AMINO TRANSFERASE 32 U/L (15-37); BILIRUBIN,TOTAL 0.4 MG/DL (0.2-1.0); BLOOD UREA NITROGEN 11 mg/dL (7-18); CALCIUM 7.6 MG/DL (8.5-10.1); CARBON DIOXIDE 26 MMOL/L (21-32); CHLORIDE 108 MMOL/L (98-107); CREATININE 0.6 MG/DL (0.55-1.30); SODIUM 137 MMOL/L (136-145)
[2018-05-23] MEDS: Metoprolol Tartrate 50mg tab ORAL SCH ×2 (08:40→21:18)
[2018-05-23] MEDS: Amiodarone 200mg tab ORAL SCH (08:41)
[2018-05-23] MEDS: Digoxin 0.125mg tab ORAL SCH (08:41)
[2018-05-23] MEDS: Cefepime HCl 1 GM in D5W 55 ML IVPB SCH ×2 (08:42→22:46)
[2018-05-23] MEDS: Miralax 17gm pkt ORAL SCH (08:42)
[2018-05-23] MEDS: Enoxaparin 100mg Inj SUBQ SCH (08:43)
[2018-05-23] MEDS: Dakin's 0.125% Soln (Quarter Strength) 16oz TOPIC SCH (08:49)
--- NOTE | 2018-05-23 09:26 | Diagnostic Imaging Report ---
Indication: Dyspnea Technique: One view of the chest Comparison: 05/22/2018 Findings: There is increasing pleural fluid on the left. There is some infiltrate in the right infrahilar region not clearly evident previously. Patchy infiltrates are also developing in the right suprahilar region Previously demonstrated right costophrenic angle blunting is not evident currently. Impression: Increasing left pleural effusion New or increased right infrahilar and suprahilar patchy infiltrates
[2018-05-23] MEDS ORDERED: Potassium Chloride 10 MEQ in D5 1/2NS 1,000 ML IV SCH (10:35)
--- NOTE | 2018-05-23 10:35 | Pulmonology Progress Note ---
Assessment/Plan Problems: (1) Sepsis (2) Atrial fibrillation (3) Decubitus skin ulcer (4) Bipolar disorder (5) CAD (coronary artery disease) (6) HTN (hypertension) (7) CVA (cerebral vascular accident) Assessment/Plan decrease NS cxr reviewed, increasing Left effusion iv abx wound care needs to have both legs amputated, family finally agreed f/u cultures monitor BP watch heart rate dvt prophylaxis symptomatic treatment Subjective ROS Limited/Unobtainable: No Constitutional: Reports: no symptoms HEENT: Repors: no symptoms Allergies: Coded Allergies: MILK (Verified Allergy, Unknown, 02/02/18) Objective Last 24 Hour Vital Signs Date Time Temp Pulse Resp B/P (MAP) Pulse Ox O2 Delivery O2 Flow Rate FiO2 05/23/18 08:41 97 05/23/18 08:40 97 149/82 05/23/18 08:00 97.2 97 18 149/82 (104) 96 05/23/18 07:15 83 18 Room Air 21 05/23/18 04:00 98.0 77 20 131/89 (103) 99 05/23/18 04:00 73 05/23/18 04:00 Room Air 05/23/18 00:00 70 05/23/18 00:00 98.3 98 20 115/59 (77) 99 05/23/18 00:00 Room Air 05/22/18 22:00 79 156/70 05/22/18 20:00 98.8 79 20 156/70 (98) 97 05/22/18 20:00 Room Air 05/22/18 20:00 74 05/22/18 19:01 79 18 Room Air 21 05/22/18 16:00 97.0 69 20 145/62 (89) 96 05/22/18 16:00 Room Air 05/22/18 16:00 89 05/22/18 12:00 56 05/22/18 12:00 97.8 53 20 123/70 (87) 96 05/22/18 12:00 Room Air Intake and Output 05/22/18 05/23/18 19:00 07:00 Intake Total 1944.934 ml 1439.167 ml Output Total 350 ml 1000 ml Balance 1594.934 ml 439.167 ml Intake Oral 360 ml 120 ml IV Total 1584.934 ml 1319.167 ml Output Urine Total 350 ml 1000 ml # Bowel Movements 2 General Appearance: WD/WN HEENT: normocephalic, atraumatic Respiratory/Chest: chest wall non-tender, lungs clear Cardiovascular: normal peripheral pulses, normal rate Abdomen: normal bowel sounds, no organomegaly Genitourinary: normal external genitalia Skin: no rash, no ulcers Microbiology Date/Time Source Procedure Growth Status 05/20/18 18:00 Sputum AFB Specimen Processing Tissue - Final Resulted 05/20/18 18:00 Sputum Acid Fast Bacilli Smear - Final Resulted 05/20/18 18:00 Sputum Acid Fast Bacilli Culture Pending Resulted Laboratory Tests 05/23/18 03:50: White Blood Count 8.6, Red Blood Count 3.55L, Hemoglobin 10.6L, Hematocrit 31.9L , Mean Corpuscular Volume 90, Mean Corpuscular Hemoglobin 29.9, Mean Corpuscular Hemoglobin Concent 33.3, Red Cell Distribution Width 12.6, Platelet Count 268, Mean Platelet Volume 4.9L, Neutrophils (%) (Auto) 66.8, Lymphocytes ( %) (Auto) 18.1L, Monocytes (%) (Auto) 12.9H, Eosinophils (%) (Auto) 1.1, Basophils (%) (Auto) 1.1, Prothrombin Time 12.3H, Prothromb Time International Ratio 1.2H, Activated Partial Thromboplast Time 32, Sodium Level 137, Potassium Level 4.0, Chloride Level 108H, Carbon Dioxide Level 26, Anion Gap 3L, Blood Urea Nitrogen 11, Creatinine 0.6, Estimat Glomerular Filtration Rate > 60, Glucose Level 91, Calcium Level 7.6L, Total Bilirubin 0.4, Aspartate Amino Transf (AST/SGOT) 32, Alanine Aminotransferase (ALT/SGPT) 17, Alkaline Phosphatase 157H, Pro-B-Type Natriuretic Peptide 1813H, Total Protein 6.2L, Albumin 1.1L, Globulin 5.1, Albumin/Globulin Ratio 0.2L Current Medications Medications (Trade) Dose Ordered Sig/Erlin Route PRN Reason Start Time Stop Time Status Last Admin Dose Admin Acetaminophen (Tylenol) 650 mg Q4H PRN ORAL Mild Pain/Temp > 100.5 05/18/18 08:45 06/11/18 12:34 05/23/18 05:39 Albuterol/ Ipratropium (Albuterol/ Ipratropium) 3 ml Q4H PRN HHN Shortness of Breath 05/20/18 11:58 05/24/18 11:57 Amiodarone HCl (Cordarone) 200 mg DAILY ORAL 05/20/18 09:00 06/17/18 08:59 05/23/18 08:41 Cefepime HCl 1 gm/ Dextrose 55 ml @ 110 mls/hr EVERY 12 HOURS IVPB 05/21/18 12:00 05/28/18 11:59 05/23/18 08:42 Digoxin (Lanoxin) 0.125 mg DAILY ORAL 05/18/18 09:00 06/12/18 08:59 05/23/18 08:41 Enoxaparin Sodium (Lovenox) 100 mg EVERY 12 HOURS SUBQ 05/19/18 21:00 06/18/18 20:59 05/20/18 20:44 Gabapentin (Neurontin) 100 mg THREE TIMES A DAY ORAL 05/18/18 09:00 06/11/18 17:59 05/23/18 08:40 Lorazepam (Ativan 2mg/ml 1ml) 1 mg ONCE IV 05/22/18 09:30 05/29/18 10:30 05/22/18 15:25 Metoprolol Tartrate (Lopressor) 50 mg Q12HR ORAL 05/18/18 09:00 06/11/18 20:59 05/23/18 08:40 Metronidazole (Flagyl) 500 mg Q8H ORAL 05/19/18 18:00 05/26/18 17:59 05/23/18 02:12 Morphine Sulfate (Morphine Sulfate) 2 mg Q4H PRN IVP pain 4-10 05/19/18 14:15 05/26/18 14:14 05/22/18 13:58 Polyethylene Glycol (Miralax) 17 gm DAILY ORAL 05/18/18 09:00 06/16/18 10:59 05/21/18 08:52 Potassium Chloride 10 meq/ Dextrose/Sodium Chloride 1,005 ml @ 75 mls/hr [id number] IV 05/18/18 05:30 06/12/18 14:59 05/23/18 05:42 Quetiapine Fumarate (SEROquel) 100 mg BEDTIME ORAL 05/18/18 21:00 06/11/18 20:59 05/22/18 22:00 Sodium Hypochlorite (Dakin's Quarter Strength) 1 applic DAILY TOPIC 05/18/18 09:00 06/12/18 14:18 05/23/18 08:49 Sodium Chloride 1,000 ml @ 75 mls/hr [id number] IVLG 05/22/18 14:58 06/21/18 14:57 05/22/18 15:26 Vancomycin HCl (Vanco rx to dose) 1 ea DAILY PRN MISC Per rx protocol 05/18/18 09:00 06/11/18 14:59 Vancomycin/Sodium Chloride 250 ml @ 166.667 mls/hr Q8H IVPB 05/18/18 13:00 05/28/18 12:59 05/23/18 05:40 Minerva Montesinos MD May 23, 2018 10:35
[2018-05-23] MEDS ORDERED: LORazepam Inj 2mg/ml 1ml IV PRN ×2 (10:36→20:45)
[2018-05-23] MEDS ORDERED: Tubing IV Secondary IV ONE (11:01)
[2018-05-23] MEDS ORDERED: NS 275ml ONE (11:01)
[2018-05-23] MEDS: Morphine Sulfate 2mg/ml Inj IVP PRN (12:01)
--- NOTE | 2018-05-23 12:36 | Pre-Procedure Note/Attestation ---
Pre-Procedure Note/Attestation Complete Prior to Procedure Planned Procedure: left Procedure Narrative: Thoracentesis Indications for Procedure Pre-Operative Diagnosis: L pleural effusion Attestation I attest that I discussed the nature of the procedure; its benefits; risks and complications; and alternatives (and the risks and benefits of such alternatives ), prior to the procedure, with the patient (or the patient's legal industrial sales representative). I attest that, if there was a reasonable possibility of needing a blood transfusion, the patient (or the patient's legal industrial sales representative) was given the [facility] standardized written summary, pursuant to the Bennett Nazanin Blood Safety Act ([place] Health and Safety Code # 1645, as amended). I attest that I re-evaluated the patient just prior to the surgery and that there has been no change in the patient's H&P, except as documented below: Josué Llanes MD May 23, 2018 12:36
--- NOTE | 2018-05-23 13:47 | Infectious Diseases Prog Note ---
Assessment/Plan Assessment/Plan 68 yo male who was transferred from [facility] where he initially presented for AMS from [facility]. Small lung cavitary lesion/ PNA- suspect likely to aspiration; lower suspicion for TB and/or fungal etiologies -CT c/a/p: 10 mm opacity in the peripheral anterolateral right upper lobe with small central cavitation. Patchy groundglass opacity in the posterior right upper lobe. Suspect that these represent inflammatory/infectious lesions, but neoplastic etiology of either is certainly possible. Large left and moderate right pleural effusions. Resultant compressive atelectasis of portions of the lower lobes. Equivocal distal esophageal wall thickening, could indicate esophagitis if real -sp cx p -AFB sp cx; smear neg x1 Sepsis / to bacteremia (at OSH) Likely source is skin ulcer Blood Cx 05/12/18 at [facility] -Bcx 05/12 and (here) NTD 2d echo: no vegetations 05/15 CXR: Right midlung nodule. Absence of this finding on previous study makes this more likely to be a focus of inflammation, but rapidly growing neoplasm not excludable. Left basilar hazy opacity. Most likely a moderate to large pleural effusion.Component of infiltrate or atelectasis is also possible 05/12 CXR: Asymmetric ill-defined confluent groundglass opacity within the left mid/inferior lung, of uncertain etiology. 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 Hypertension. Sacral decubitus ulcers. Bipolar disorder. Coronary artery disease. Plan - Continue Cefepime #12 and Vancomycin #12 pending Cx -Cont PO Flagyl #5 for anaerobic coverage -Airborne isolation -AFB sp cx x3,MTB PCR x1 -f/u cocci ab, CrAg, fungal sp cx, T-spot - f/u Blood Cx - Wound care - Monitor CBC and Temps -f/u sp cx, u/a w/ reflex -Cdiff if diarrhea -Obtain records from [facility] for BCx results -Sx and podiatry f/u: recommend b/l AKA Thank you for this consult. We will continue to follow the patient during this hospitalization. Discussed withRN Subjective Allergies: Coded Allergies: MILK (Verified Allergy, Unknown, 02/02/18) Subjective afebrile leukocytosis resolved AFB sp cx p At RA Objective Vital Signs Last 24 Hour Vital Signs Date Time Temp Pulse Resp B/P (MAP) Pulse Ox O2 Delivery O2 Flow Rate FiO2 05/23/18 12:00 97.5 103 20 153/72 (99) 97 05/23/18 12:00 Room Air 05/23/18 08:41 97 05/23/18 08:40 97 149/82 05/23/18 08:00 78 05/23/18 08:00 97.2 97 18 149/82 (104) 96 05/23/18 08:00 Room Air 05/23/18 07:15 83 18 Room Air 21 05/23/18 04:00 98.0 77 20 131/89 (103) 99 05/23/18 04:00 73 05/23/18 04:00 Room Air 05/23/18 00:00 70 05/23/18 00:00 98.3 98 20 115/59 (77) 99 05/23/18 00:00 Room Air 05/22/18 22:00 79 156/70 05/22/18 20:00 98.8 79 20 156/70 (98) 97 05/22/18 20:00 Room Air 05/22/18 20:00 74 05/22/18 19:01 79 18 Room Air 21 05/22/18 16:00 97.0 69 20 145/62 (89) 96 05/22/18 16:00 Room Air 05/22/18 16:00 89 Height (Feet): 6 Height (Inches): 5.00 Weight (Pounds): 170 Objective Gen: NAD. Mumbling HEENT: NCAT, MMM, EOMI, No Oral lesion, no scleral icterus NECK: full range of motion, supple, no meningismus, No LAD, No JVD LUNGS: CTAB, No W/C, No Accessory muscle use CARDS: RRR, S1, S2, No M/R/G ABD: Soft, NT, ND, No R/G, + BS, No HSM, No Masses : Deferred Ext: C/C/E, Pulses 2+ B/L (DP, Rad) NEURO: A/O x 0, Strength and Sensation Grossly intact PSYCH: mood/affect normal SKIN: Left foot wound. No purulent drainage, Feet now bandaged Microbiology Date/Time Source Procedure Growth Status 05/20/18 18:00 Sputum AFB Specimen Processing Tissue - Final Resulted 05/20/18 18:00 Sputum Acid Fast Bacilli Smear - Final Resulted 05/20/18 18:00 Sputum Acid Fast Bacilli Culture Pending Resulted Laboratory Tests Test 05/23/18 03:50 White Blood Count 8.6 K/UL (4.8-10.8) Red Blood Count 3.55 M/UL (4.70-6.10) L Hemoglobin 10.6 G/DL (14.2-18.0) L Hematocrit 31.9 % (42.0-52.0) L Mean Corpuscular Volume 90 FL (80-99) Mean Corpuscular Hemoglobin 29.9 PG (27.0-31.0) Mean Corpuscular Hemoglobin Concent 33.3 G/DL (32.0-36.0) Red Cell Distribution Width 12.6 % (11.6-14.8) Platelet Count 268 K/UL (150-450) Mean Platelet Volume 4.9 FL (6.5-10.1) L Neutrophils (%) (Auto) 66.8 % (45.0-75.0) Lymphocytes (%) (Auto) 18.1 % (20.0-45.0) L Monocytes (%) (Auto) 12.9 % (1.0-10.0) H Eosinophils (%) (Auto) 1.1 % (0.0-3.0) Basophils (%) (Auto) 1.1 % (0.0-2.0) Prothrombin Time 12.3 SEC (9.30-11.50) H Prothromb Time International Ratio 1.2 (0.9-1.1) H Activated Partial Thromboplast Time 32 SEC (23-33) Sodium Level 137 MMOL/L (136-145) Potassium Level 4.0 MMOL/L (3.5-5.1) Chloride Level 108 MMOL/L (98-107) H Carbon Dioxide Level 26 MMOL/L (21-32) Anion Gap 3 mmol/L (5-15) L Blood Urea Nitrogen 11 mg/dL (7-18) Creatinine 0.6 MG/DL (0.55-1.30) Estimat Glomerular Filtration Rate > 60 mL/min (>60) Glucose Level 91 MG/DL (74-106) Calcium Level 7.6 MG/DL (8.5-10.1) L Total Bilirubin 0.4 MG/DL (0.2-1.0) Aspartate Amino Transf (AST/SGOT) 32 U/L (15-37) Alanine Aminotransferase (ALT/SGPT) 17 U/L (12-78) Alkaline Phosphatase 157 U/L (46-116) H Pro-B-Type Natriuretic Peptide 1813 pg/mL (0-125) H Total Protein 6.2 G/DL (6.4-8.2) L Albumin 1.1 G/DL (3.4-5.0) L Globulin 5.1 g/dL Albumin/Globulin Ratio 0.2 (1.0-2.7) L Current Medications Medications (Trade) Dose Ordered Sig/Erlin Route PRN Reason Start Time Stop Time Status Last Admin Dose Admin Acetaminophen (Tylenol) 650 mg Q4H PRN ORAL Mild Pain/Temp > 100.5 05/18/18 08:45 06/11/18 12:34 05/23/18 05:39 Albuterol/ Ipratropium (Albuterol/ Ipratropium) 3 ml Q4H PRN HHN Shortness of Breath 05/20/18 11:58 05/24/18 11:57 Amiodarone HCl (Cordarone) 200 mg DAILY ORAL 05/20/18 09:00 06/17/18 08:59 05/23/18 08:41 Cefepime HCl 1 gm/ Dextrose 55 ml @ 110 mls/hr EVERY 12 HOURS IVPB 05/21/18 12:00 05/28/18 11:59 05/23/18 08:42 Digoxin (Lanoxin) 0.125 mg DAILY ORAL 05/18/18 09:00 06/12/18 08:59 05/23/18 08:41 Enoxaparin Sodium (Lovenox) 100 mg EVERY 12 HOURS SUBQ 05/19/18 21:00 06/18/18 20:59 05/20/18 20:44 Gabapentin (Neurontin) 100 mg THREE TIMES A DAY ORAL 05/18/18 09:00 06/11/18 17:59 05/23/18 08:40 Lorazepam (Ativan 2mg/ml 1ml) 1 mg Q4H PRN IV For Anxiety 05/23/18 10:36 05/30/18 10:35 Metoprolol Tartrate (Lopressor) 50 mg Q12HR ORAL 05/18/18 09:00 06/11/18 20:59 05/23/18 08:40 Metronidazole (Flagyl) 500 mg Q8H ORAL 05/19/18 18:00 05/26/18 17:59 05/23/18 10:41 Morphine Sulfate (Morphine Sulfate) 2 mg Q4H PRN IVP pain 4-10 05/19/18 14:15 05/26/18 14:14 05/23/18 12:01 Polyethylene Glycol (Miralax) 17 gm DAILY ORAL 05/18/18 09:00 06/16/18 10:59 05/21/18 08:52 Potassium Chloride 10 meq/ Dextrose/Sodium Chloride 1,005 ml @ 50 mls/hr Q20H6M IV 05/23/18 10:35 06/22/18 10:34 05/23/18 10:46 Quetiapine Fumarate (SEROquel) 100 mg BEDTIME ORAL 05/18/18 21:00 06/11/18 20:59 05/22/18 22:00 Sodium Hypochlorite (Dakin's Quarter Strength) 1 applic DAILY TOPIC 05/18/18 09:00 06/12/18 14:18 05/23/18 08:49 Vancomycin HCl (Vanco rx to dose) 1 ea DAILY PRN MISC Per rx protocol 05/18/18 09:00 06/11/18 14:59 Vancomycin/Sodium Chloride 250 ml @ 166.667 mls/hr Q8H IVPB 05/18/18 13:00 05/28/18 12:59 05/23/18 13:28 Alma Elkins M.D. May 23, 2018 13:47
--- NOTE | 2018-05-23 13:59 | Diagnostic Imaging Report ---
Indication: Post thoracentesis Technique: One view of the chest Comparison: 05/23/2018 Findings: Improved inspiration currently. Right infrahilar opacity has resolved. Interim resolution of previously demonstrated left-sided pleural effusion, post thoracentesis. No pneumothorax demonstrated. Small nodular opacity in the right upper lung is again demonstrated. The lungs and pleural spaces are otherwise currently clear except for minimal atelectasis at the left lung base. The heart size is normal. The aorta is somewhat tortuous Impression: Resolved left pleural effusion, status post thoracentesis. No radiographically evident complication Minimal residual left basilar atelectasis. No acute process otherwise
--- NOTE | 2018-05-23 13:59 | Brief Operative Note ---
Immediate Post Operative Note Operative Note Pre-op Diagnosis: L pleural effusion Procedure: Thoracentesis Post-op Diagnosis: same as pre-op Findings: consistent w/pre-op dx studies Surgeon: Mansoor LLANES Anesthesia: local Specimen: yes - 50 ml fluid sent to lab Complications: none Condition: stable Fluids: none Estimated Blood Loss: none Implant(s) used?: No Josué Llanes MD May 23, 2018 13:59
--- NOTE | 2018-05-23 14:41 | Diagnostic Imaging Report ---
Indications: Pleural effusion Technique: Informed consent obtained prior to commencement of the procedure from patient's daughter. Procedural timeout performed. Prior imaging studies reviewed. Ultrasound used to localize optimal puncture site. Sterile prepping and draping left chest. Local anesthesia with 1% lidocaine. Under real-time ultrasound guidance, puncture pleural space using thoracentesis needle. Stylet removed. Catheter placed to vacuum bottle suction. Total 400 milliliters of cloudy yellow fluid aspirated. Patient tolerated procedure well, without immediate complication. A specimen was sent to the lab for analysis Findings: Followup sonography demonstrates near complete resolution of pleural fluid. Impression: Successful ultrasound-guided thoracentesis, yielding 400 milliliters of cloudy yellow fluid
[2018-05-23] MEDS ORDERED: Ketamine 500mg Inj ONE (14:57)
--- NOTE | 2018-05-23 15:08 | Cardiac Electrophysiology PN ---
Assessment/Plan Assessment/Plan 1. Paroxysmal Atrial fibrillation and flutter with RVR Continue digoxin 0.125 daily, metoprolol 50 bid and Amiodarone 200 daily. Lovenox 100 b.i.d. held for surgery today 2. Borderline hypotension. Resolved 3. Fever and sepsis, on antibiotic with vancomycin and cefepime. 4. History of dementia and severe psychosis, on Seroquel. 5. Severe bilateral leg ulcers and sacral decubitus. FU Dr Osuna Bilateral AKA pending today MONSERRAT RN Subjective Subjective NPO for Bilateral AKA today.In resp isolation for possible TB Objective Last 24 Hour Vital Signs Date Time Temp Pulse Resp B/P (MAP) Pulse Ox O2 Delivery O2 Flow Rate FiO2 05/23/18 12:00 97.5 103 20 153/72 (99) 97 05/23/18 12:00 69 05/23/18 12:00 Room Air 05/23/18 08:41 97 05/23/18 08:40 97 149/82 05/23/18 08:00 78 05/23/18 08:00 97.2 97 18 149/82 (104) 96 05/23/18 08:00 Room Air 05/23/18 07:15 83 18 Room Air 21 05/23/18 04:00 98.0 77 20 131/89 (103) 99 05/23/18 04:00 73 05/23/18 04:00 Room Air 05/23/18 00:00 70 05/23/18 00:00 98.3 98 20 115/59 (77) 99 05/23/18 00:00 Room Air 05/22/18 22:00 79 156/70 05/22/18 20:00 98.8 79 20 156/70 (98) 97 05/22/18 20:00 Room Air 05/22/18 20:00 74 05/22/18 19:01 79 18 Room Air 21 05/22/18 16:00 97.0 69 20 145/62 (89) 96 05/22/18 16:00 Room Air 05/22/18 16:00 89 Intake and Output 05/22/18 05/23/18 19:00 07:00 Intake Total 1944.934 ml 1439.167 ml Output Total 350 ml 1000 ml Balance 1594.934 ml 439.167 ml Intake Oral 360 ml 120 ml IV Total 1584.934 ml 1319.167 ml Output Urine Total 350 ml 1000 ml # Bowel Movements 2 Laboratory Tests Test 05/23/18 03:50 05/23/18 13:22 White Blood Count 8.6 K/UL (4.8-10.8) Red Blood Count 3.55 M/UL (4.70-6.10) L Hemoglobin 10.6 G/DL (14.2-18.0) L Hematocrit 31.9 % (42.0-52.0) L Mean Corpuscular Volume 90 FL (80-99) Mean Corpuscular Hemoglobin 29.9 PG (27.0-31.0) Mean Corpuscular Hemoglobin Concent 33.3 G/DL (32.0-36.0) Red Cell Distribution Width 12.6 % (11.6-14.8) Platelet Count 268 K/UL (150-450) Mean Platelet Volume 4.9 FL (6.5-10.1) L Neutrophils (%) (Auto) 66.8 % (45.0-75.0) Lymphocytes (%) (Auto) 18.1 % (20.0-45.0) L Monocytes (%) (Auto) 12.9 % (1.0-10.0) H Eosinophils (%) (Auto) 1.1 % (0.0-3.0) Basophils (%) (Auto) 1.1 % (0.0-2.0) Prothrombin Time 12.3 SEC (9.30-11.50) H Prothromb Time International Ratio 1.2 (0.9-1.1) H Activated Partial Thromboplast Time 32 SEC (23-33) Sodium Level 137 MMOL/L (136-145) Potassium Level 4.0 MMOL/L (3.5-5.1) Chloride Level 108 MMOL/L (98-107) H Carbon Dioxide Level 26 MMOL/L (21-32) Anion Gap 3 mmol/L (5-15) L Blood Urea Nitrogen 11 mg/dL (7-18) Creatinine 0.6 MG/DL (0.55-1.30) Estimat Glomerular Filtration Rate > 60 mL/min (>60) Glucose Level 91 MG/DL (74-106) Calcium Level 7.6 MG/DL (8.5-10.1) L Total Bilirubin 0.4 MG/DL (0.2-1.0) Aspartate Amino Transf (AST/SGOT) 32 U/L (15-37) Alanine Aminotransferase (ALT/SGPT) 17 U/L (12-78) Alkaline Phosphatase 157 U/L (46-116) H Pro-B-Type Natriuretic Peptide 1813 pg/mL (0-125) H Total Protein 6.2 G/DL (6.4-8.2) L Albumin 1.1 G/DL (3.4-5.0) L Globulin 5.1 g/dL Albumin/Globulin Ratio 0.2 (1.0-2.7) L Body Fluid Glucose Pending Body Fluid Total Protein Pending Microbiology Date/Time Source Procedure Growth Status 05/20/18 18:00 Sputum AFB Specimen Processing Tissue - Final Resulted 05/20/18 18:00 Sputum Acid Fast Bacilli Smear - Final Resulted 05/20/18 18:00 Sputum Acid Fast Bacilli Culture Pending Resulted Objective HEAD AND NECK: Mild JVD. LUNGS: Coarse rhonchi. CARDIOVASCULAR: Irregular S1 and S2 with no murmur. ABDOMEN: Soft. EXTREMITIES: Bilateral leg ulcers with dressing Amandeep Arora MD May 23, 2018 15:08
[2018-05-23] MEDS ORDERED: Midazolam 2mg/2ml Inj ONE (15:38)
[2018-05-23] MEDS ORDERED: Morphine Sulfate 10mg/ml Inj ONE (15:49)
[2018-05-23] MEDS ORDERED: Sterile Water Irrig 1000ml IRRIG ONE (16:00)
[2018-05-23] MEDS ORDERED: NS Irrig 1000ml IRRIG ONE (16:05)
--- NOTE | 2018-05-23 16:08 | Anethesia Preoperative Eval ---
Anesthesia Pre-op PMH/ROS General Date of Evaluation: May 23, 2018 Time of Evaluation: 15:00 Anesthesiologist: tristan ASA Score: ASA 4 Mallampati Score Class I : Soft palate, uvula, fauces, pillars visible Class II: Soft palate, uvula, fauces visible Class III: Soft palate, base of uvula visible Class IV: Only hard plate visible Mallampati Classification: Class III Surgeon: janell Surgical Procedure: bolivar above knee amputation Anesthesia History: none Family History: no anesthesia problems Allergies: Coded Allergies: MILK (Verified Allergy, Unknown, 02/02/18) Medications: see eMAR Patient NPO?: Yes NPO Date: May 23, 2018 NPO Time: 0000 Past Medical History Cardiovascular: Reports: HTN, CAD, arrhythmia - afib Pulmonary: Reports: other - chf; Denies: asthma, COPD, DARIUSZ Gastrointestinal/Genitourinary: Reports: GERD; Denies: CRI, ESRD, other 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: Reports: dementia, depression/anxiety; Denies: CVA, TIA, other Endocrine: Reports: DM HEENT: Denies: cataract (L), cataract (R), glaucoma, [place]ARMI[place] (L), [place]ARMIUT (R), other Hematology/Immune: Reports: anemia; Denies: DVT, bleeding disorder, other Musculoskeletal/Integumentary: Denies: OA, RA, DJD, DDD, edema, other PMH Narrative: (1) Atrial fibrillation (2) Fever (3) Decubitus skin ulcer (4) Sepsis (5) Bipolar disorder (6) CAD (coronary artery disease) (7) CHF (congestive heart failure) (8) Hypertension (9) Atrial fibrillation with rapid ventricular response (10) Leukocytosis (11) UTI (urinary tract infection) (12) Drug abuse (13) CAD (coronary artery disease) (14) Maggot infestation (15) Sepsis (16) HTN (hypertension) (17) CVA (cerebral vascular accident) (18) Leg wound, right (19) Bipolar 1 disorder Anesthesia Pre-op Phys. Exam Physician Exam Last Vital Signs Date Time Temp Pulse Resp B/P (MAP) Pulse Ox O2 Delivery O2 Flow Rate FiO2 05/23/18 12:00 97.5 103 20 153/72 (99) 97 05/23/18 12:00 Room Air 05/23/18 07:15 21 Constitutional: other Neurologic: other - demented Cardiovascular: other - afib Respiratory: other - ronchi; TB precaution Gastrointestinal: S/NT/ND Airway Exam Mallampati Classification 3 Mallampati Score: Class III MO: limited ROM: limited Teeth: missing, broken Dentures: no upper, no lower Anesthesia Pre-op A/P Labs Hematology Test 05/23/18 03:50 White Blood Count 8.6 K/UL (4.8-10.8) Red Blood Count 3.55 M/UL (4.70-6.10) L Hemoglobin 10.6 G/DL (14.2-18.0) L Hematocrit 31.9 % (42.0-52.0) L Mean Corpuscular Volume 90 FL (80-99) Mean Corpuscular Hemoglobin 29.9 PG (27.0-31.0) Mean Corpuscular Hemoglobin Concent 33.3 G/DL (32.0-36.0) Red Cell Distribution Width 12.6 % (11.6-14.8) Platelet Count 268 K/UL (150-450) Mean Platelet Volume 4.9 FL (6.5-10.1) L Neutrophils (%) (Auto) 66.8 % (45.0-75.0) Lymphocytes (%) (Auto) 18.1 % (20.0-45.0) L Monocytes (%) (Auto) 12.9 % (1.0-10.0) H Eosinophils (%) (Auto) 1.1 % (0.0-3.0) Basophils (%) (Auto) 1.1 % (0.0-2.0) Coagulation Test 05/23/18 03:50 Prothrombin Time 12.3 SEC (9.30-11.50) H Prothromb Time International Ratio 1.2 (0.9-1.1) H Activated Partial Thromboplast Time 32 SEC (23-33) Chemistry Test 05/23/18 03:50 Sodium Level 137 MMOL/L (136-145) Potassium Level 4.0 MMOL/L (3.5-5.1) Chloride Level 108 MMOL/L (98-107) H Carbon Dioxide Level 26 MMOL/L (21-32) Anion Gap 3 mmol/L (5-15) L Blood Urea Nitrogen 11 mg/dL (7-18) Creatinine 0.6 MG/DL (0.55-1.30) Estimat Glomerular Filtration Rate > 60 mL/min (>60) Glucose Level 91 MG/DL (74-106) Calcium Level 7.6 MG/DL (8.5-10.1) L Total Bilirubin 0.4 MG/DL (0.2-1.0) Aspartate Amino Transf (AST/SGOT) 32 U/L (15-37) Alanine Aminotransferase (ALT/SGPT) 17 U/L (12-78) Alkaline Phosphatase 157 U/L (46-116) H Pro-B-Type Natriuretic Peptide 1813 pg/mL (0-125) H Total Protein 6.2 G/DL (6.4-8.2) L Albumin 1.1 G/DL (3.4-5.0) L Globulin 5.1 g/dL Albumin/Globulin Ratio 0.2 (1.0-2.7) L Studies Pre-op Studies: EKG - afib - 70 Risk Assessment & Plan Assessment: consent obtained frm daughter Plan: general Pre-Antibiotics Drug: none Flower Jara CRNA May 23, 2018 16:08
--- NOTE | 2018-05-23 16:51 | Internal Med Progress Note ---
Subjective Date of Service: May 23, 2018 Physician Name Daniel Jackson Attending Physician Pedro Caban MD Current Medications Medications (Trade) Dose Ordered Sig/Erlin Route PRN Reason Start Time Stop Time Status Last Admin Dose Admin Acetaminophen (Tylenol) 650 mg Q4H PRN ORAL Mild Pain/Temp > 100.5 05/18/18 08:45 06/11/18 12:34 05/23/18 05:39 Albuterol/ Ipratropium (Albuterol/ Ipratropium) 3 ml Q4H PRN HHN Shortness of Breath 05/20/18 11:58 05/24/18 11:57 Amiodarone HCl (Cordarone) 200 mg DAILY ORAL 05/20/18 09:00 06/17/18 08:59 05/23/18 08:41 Cefepime HCl 1 gm/ Dextrose 55 ml @ 110 mls/hr EVERY 12 HOURS IVPB 05/21/18 12:00 05/28/18 11:59 05/23/18 08:42 Digoxin (Lanoxin) 0.125 mg DAILY ORAL 05/18/18 09:00 06/12/18 08:59 05/23/18 08:41 Enoxaparin Sodium (Lovenox) 100 mg EVERY 12 HOURS SUBQ 05/19/18 21:00 06/18/18 20:59 05/20/18 20:44 Gabapentin (Neurontin) 100 mg THREE TIMES A DAY ORAL 05/18/18 09:00 06/11/18 17:59 05/23/18 08:40 Lorazepam (Ativan 2mg/ml 1ml) 1 mg Q4H PRN IV For Anxiety 05/23/18 10:36 05/30/18 10:35 05/23/18 14:18 Metoprolol Tartrate (Lopressor) 50 mg Q12HR ORAL 05/18/18 09:00 06/11/18 20:59 05/23/18 08:40 Metronidazole (Flagyl) 500 mg Q8H ORAL 05/19/18 18:00 05/26/18 17:59 05/23/18 10:41 Morphine Sulfate (Morphine Sulfate) 2 mg Q4H PRN IVP pain 4-10 05/19/18 14:15 05/26/18 14:14 05/23/18 12:01 Polyethylene Glycol (Miralax) 17 gm DAILY ORAL 05/18/18 09:00 06/16/18 10:59 05/21/18 08:52 Potassium Chloride 10 meq/ Dextrose/Sodium Chloride 1,005 ml @ 50 mls/hr Q20H6M IV 05/23/18 10:35 06/22/18 10:34 05/23/18 10:46 Quetiapine Fumarate (SEROquel) 100 mg BEDTIME ORAL 05/18/18 21:00 06/11/18 20:59 05/22/18 22:00 Sodium Hypochlorite (Dakin's Quarter Strength) 1 applic DAILY TOPIC 05/18/18 09:00 06/12/18 14:18 05/23/18 08:49 Vancomycin HCl (Vanco rx to dose) 1 ea DAILY PRN MISC Per rx protocol 05/18/18 09:00 06/11/18 14:59 Vancomycin/Sodium Chloride 250 ml @ 166.667 mls/hr Q8H IVPB 05/18/18 13:00 05/28/18 12:59 05/23/18 13:28 Allergies: Coded Allergies: MILK (Verified Allergy, Unknown, 02/02/18) ROS Limited/Unobtainable: Yes Subjective 68 YO A M admitted with altered mental status. Now sepsis and atrial fibrillation with rapid rate. Cover for Int Med-Dr Caban. LILIBETH. S/P bilateral above the knee amputation 05/23/18 Objective Last Vital Signs Date Time Temp Pulse Resp B/P (MAP) Pulse Ox O2 Delivery O2 Flow Rate FiO2 05/23/18 12:00 97.5 103 20 153/72 (99) 97 05/23/18 12:00 Room Air 05/23/18 07:15 21 Laboratory Tests Test 05/23/18 03:50 05/23/18 13:22 White Blood Count 8.6 K/UL (4.8-10.8) Red Blood Count 3.55 M/UL (4.70-6.10) L Hemoglobin 10.6 G/DL (14.2-18.0) L Hematocrit 31.9 % (42.0-52.0) L Mean Corpuscular Volume 90 FL (80-99) Mean Corpuscular Hemoglobin 29.9 PG (27.0-31.0) Mean Corpuscular Hemoglobin Concent 33.3 G/DL (32.0-36.0) Red Cell Distribution Width 12.6 % (11.6-14.8) Platelet Count 268 K/UL (150-450) Mean Platelet Volume 4.9 FL (6.5-10.1) L Neutrophils (%) (Auto) 66.8 % (45.0-75.0) Lymphocytes (%) (Auto) 18.1 % (20.0-45.0) L Monocytes (%) (Auto) 12.9 % (1.0-10.0) H Eosinophils (%) (Auto) 1.1 % (0.0-3.0) Basophils (%) (Auto) 1.1 % (0.0-2.0) Prothrombin Time 12.3 SEC (9.30-11.50) H Prothromb Time International Ratio 1.2 (0.9-1.1) H Activated Partial Thromboplast Time 32 SEC (23-33) Sodium Level 137 MMOL/L (136-145) Potassium Level 4.0 MMOL/L (3.5-5.1) Chloride Level 108 MMOL/L (98-107) H Carbon Dioxide Level 26 MMOL/L (21-32) Anion Gap 3 mmol/L (5-15) L Blood Urea Nitrogen 11 mg/dL (7-18) Creatinine 0.6 MG/DL (0.55-1.30) Estimat Glomerular Filtration Rate > 60 mL/min (>60) Glucose Level 91 MG/DL (74-106) Calcium Level 7.6 MG/DL (8.5-10.1) L Total Bilirubin 0.4 MG/DL (0.2-1.0) Aspartate Amino Transf (AST/SGOT) 32 U/L (15-37) Alanine Aminotransferase (ALT/SGPT) 17 U/L (12-78) Alkaline Phosphatase 157 U/L (46-116) H Pro-B-Type Natriuretic Peptide 1813 pg/mL (0-125) H Total Protein 6.2 G/DL (6.4-8.2) L Albumin 1.1 G/DL (3.4-5.0) L Globulin 5.1 g/dL Albumin/Globulin Ratio 0.2 (1.0-2.7) L Body Fluid Glucose Pending Body Fluid Total Protein Pending Microbiology Date/Time Source Procedure Growth Status 05/20/18 18:00 Sputum AFB Specimen Processing Tissue - Final Resulted 05/20/18 18:00 Sputum Acid Fast Bacilli Smear - Final Resulted 05/20/18 18:00 Sputum Acid Fast Bacilli Culture Pending Resulted Intake and Output 05/22/18 05/23/18 19:00 07:00 Intake Total 1944.934 ml 1439.167 ml Output Total 350 ml 1000 ml Balance 1594.934 ml 439.167 ml Intake Oral 360 ml 120 ml IV Total 1584.934 ml 1319.167 ml Output Urine Total 350 ml 1000 ml # Bowel Movements 2 Objective General Appearance: alert, thin, agitated EENT: PERRL/EOMI, normal ENT inspection Neck: non-tender, normal alignment, supple, normal inspection Cardiovascular: normal peripheral pulses, normal rate, no gallop/murmur, no JVD , irregularly irregular Respiratory/Chest: chest wall non-tender, lungs clear, normal breath sounds, no respiratory distress, no accessory muscle use Abdomen: normal bowel sounds, non tender, soft, no organomegaly, no mass Extremities: normal range of motion, non-tender Neurologic: heat treating bluer II-XII grossly 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 (8) Sepsis Assessment & Plan: Continue cefepime and vanco per ID (9) UTI (urinary tract infection) Assessment & Plan: Mixed culture-continue vanco and cefepime per ID (10) Leukocytosis (11) Deep venous thrombosis of right femoral vein Assessment & Plan: D/C eliquis. Start lovenox SQ; D/C lovenox on Tuesday prior to surgery Daniel Jackson MD May 23, 2018 16:51
[2018-05-23] MEDS ORDERED: Lidocaine 1% MPF 10mg/ml 5ml ONE (16:53)
[2018-05-23] MEDS ORDERED: Propofol 200mg/20ml IV ONE (16:53)
[2018-05-23] MEDS ORDERED: Phenylephrine 10mg/ml Vial ONE (16:53)
[2018-05-23] MEDS ORDERED: ePHEDrine 50mg/ml Inj ONE (16:53)
[2018-05-23] MEDS ORDERED: Glycopyrrolate 0.2mg/ml 1ml Vial ONE (16:53)
[2018-05-23] MEDS ORDERED: Bacitracin Oint 15gm Tube TOPIC ONE (16:58)
--- NOTE | 2018-05-23 17:30 | Brief Operative Note ---
Immediate Post Operative Note Operative Note Pre-op Diagnosis: Infection / Gangrene of bilateral lower extremities Procedure: bilateral above knee amputation Post-op Diagnosis: same as pre-op Surgeon: rhett Anesthesiologist: ronen humphrey Anesthesia: general Specimen: yes Complications: none Condition: stable Fluids: see records Estimated Blood Loss: volume - 75 Drains: none Implant(s) used?: No Goyo Osuna May 23, 2018 17:30
[2018-05-23] MEDS ORDERED: Sennosides 8.6mg tab ORAL PRN ×2 (17:45→20:45)
[2018-05-23] MEDS ORDERED: Milk of Magnesia 30ml Ud ORAL PRN ×2 (17:45→20:45)
[2018-05-23] MEDS ORDERED: HYDROmorphone 1mg/ml Carpuject IVP PRN (17:45)
[2018-05-23] MEDS ORDERED: Hydromorphone 0.5mg/0.5ml inj IVP PRN ×2 (17:45→20:45)
--- NOTE | 2018-05-23 17:53 | Immediate Post-Op Evaluation ---
Immediate Post-Op Evalulation Immediate Post-Op Evalulation Procedure: Tomy ZAMORANO Date of Evaluation: May 23, 2018 Time of Evaluation: 17:52 IV Fluids: 800 Estimated Blood Loss: 50 Urinary Output: 100 Blood Pressure Systolic: 117 Blood Pressure Diastolic: 57 Pulse Rate: 70 Respiratory Rate: 14 O2 Sat by Pulse Oximetry: 100 Nausea: No Vomiting: No Complications none Patient Status: reacts, patent Hydration Status: adequate Drug: none Flower Jara CRNA May 23, 2018 17:53
[2018-05-23] MEDS ORDERED: Docusate 100mg cap ORAL SCH (18:00)
--- NOTE | 2018-05-23 20:30 | Progress Note ---
SUBJECTIVE: The patient is more alert and is able to follow the commands. The patient has episodes of agitation. The patient is compliant with medication. No behavior issues. The patient has no history of alcohol use. He has a history of bipolar depression and has dementia. 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 His daughter is involved in his care and he will be transferred to skilled nursing after discharge. MENTAL STATUS EXAMINATION: The patient is alert and oriented to self. He is disoriented to year and month. Mood is neutral to agitation. Affect is constricted. Congruent with mood. Thought process is concrete. Thought content, no suicidal or homicidal ideation. ASSESSMENT: Bipolar disorder and dementia. PLAN: We will continue the current medication. Provide the patient with reality orientation and supportive therapy. Julissa Still M.D. DR: RADHA JOB#: [id number] CC:
[2018-05-23] MEDS ORDERED: Albuterol/Ipratropium 3ml neb HHN PRN (20:45)
[2018-05-23] MEDS ORDERED: Enoxaparin 100mg Inj SUBQ SCH (21:00)
[2018-05-23] MEDS: Enoxaparin 80mg Inj SUBQ SCH (22:48)
[2018-05-24] VITALS (18 sets, daily range): BP systolic 80–134; BP diastolic 44–96
[2018-05-24] MEDS: metroNIDAZOLE 500mg tab ORAL SCH ×3 (02:00→17:26)
[2018-05-24] MEDS: Vancomycin 750mg/NS 250ml 250 ML IVPB SCH ×3 (05:32→21:09)
[2018-05-24 06:00] LABS: BASOPHILS % (AUTO) 0.8 % (0.0-2.0); EOSINOPHILS % (AUTO) 0.1 % (0.0-3.0); HEMATOCRIT 29.2 % (42.0-52.0); HEMOGLOBIN 9.4 G/DL (14.2-18.0); MEAN CORPUSCULAR VOLUME 91 FL (80-99); NEUTROPHILS % (AUTO) 77.2 % (45.0-75.0); PLATELET COUNT 223 K/UL (150-450); RED BLOOD COUNT 3.21 M/UL (4.70-6.10); WHITE BLOOD COUNT 12.4 K/UL (4.8-10.8)
[2018-05-24 06:27] LABS: ALANINE AMINOTRANSFERASE 14 U/L (12-78); ALBUMIN 1.1 G/DL (3.4-5.0); ALBUMIN/GLOBULIN RATIO 0.2 (1.0-2.7); ALKALINE PHOSPHATASE 129 U/L (46-116); ANION GAP 7 mmol/L (5-15); ASPARTATE AMINO TRANSFERASE 39 U/L (15-37); BILIRUBIN,TOTAL 0.5 MG/DL (0.2-1.0); BLOOD UREA NITROGEN 11 mg/dL (7-18); CALCIUM 7.5 MG/DL (8.5-10.1); CARBON DIOXIDE 23 MMOL/L (21-32); CHLORIDE 108 MMOL/L (98-107); CREATININE 0.6 MG/DL (0.55-1.30); PHOSPHORUS 2.7 MG/DL (2.5-4.9); POTASSIUM 3.9 MMOL/L (3.5-5.1); SODIUM 138 MMOL/L (136-145)
[2018-05-24] MEDS ORDERED: Heparin 2000 units/Ns 1000ml INJ ONE (06:30)
[2018-05-24] MEDS ORDERED: Lidocaine 1% Plain 30 ml INJ ONE (06:30)
--- NOTE | 2018-05-24 07:50 | 48 Hour Post Anesthesia Eval ---
Post Anesthesia Evaluation Procedure: Tomy AKA Date of Evaluation: May 24, 2018 Time of Evaluation: 07:49 Blood Pressure Systolic: 95 0: 50 Pulse Rate: 71 Respiratory Rate: 14 O2 Sat by Pulse Oximetry: 98 Airway: patent Nausea: No Vomiting: No Hydration Status: adequate Cardiopulmonary Status: stable Follow-up Care/Observations: na Post-Anesthesia Complications: none Follow-up care needed: N/A Flower Jara CRNA May 24, 2018 07:50
[2018-05-24] MEDS: Docusate 100mg cap ORAL SCH ×2 (08:53→17:26)
[2018-05-24] MEDS: Metoprolol Tartrate 50mg tab ORAL SCH ×2 (08:58→21:10)
[2018-05-24] MEDS ORDERED: Digoxin 0.125mg tab ORAL SCH (09:00)
[2018-05-24] MEDS ORDERED: Miralax 17gm pkt ORAL SCH (09:00)
[2018-05-24] MEDS ORDERED: Amiodarone 200mg tab ORAL SCH (09:00)
[2018-05-24] MEDS: Enoxaparin 80mg Inj SUBQ SCH ×2 (09:26→21:00)
[2018-05-24] MEDS: Cefepime HCl 1 GM in D5W 55 ML IVPB SCH ×2 (09:33→21:08)
--- NOTE | 2018-05-24 10:42 | Cardiac Electrophysiology PN ---
Assessment/Plan Assessment/Plan 1. Paroxysmal Atrial fibrillation and flutter with RVR Continue digoxin 0.125 daily, metoprolol 50 bid and Amiodarone 200 daily. Lovenox 80 b.i.d. resumed after surgery 2. Borderline hypotension. Resolved 3. Fever and sepsis, on antibiotic with vancomycin and cefepime. 4. History of dementia and severe psychosis, on Seroquel. 5. Severe bilateral leg ulcers and sacral decubitus. S/P Bilateral AKA yesterday by Dr Enrrique GERMAN RN Subjective Subjective Transferred to ICU after Bilateral AKA. still in resp isolation for possible TB Objective Last 24 Hour Vital Signs Date Time Temp Pulse Resp B/P (MAP) Pulse Ox O2 Delivery O2 Flow Rate FiO2 05/24/18 08:58 91 110/62 05/24/18 08:52 91 05/24/18 08:24 Nasal Cannula 3.0 32 05/24/18 08:24 79 20 Nasal Cannula 3.0 32 05/24/18 07:50 71 14 98 05/24/18 06:00 79 14 96/62 (73) 100 05/24/18 05:00 74 17 98/53 (68) 100 05/24/18 04:02 98.0 74 16 92/59 (70) 100 05/24/18 04:02 Nasal Cannula 2.0 05/24/18 04:01 77 05/24/18 03:00 82 14 97/75 (82) 100 05/24/18 02:00 70 16 91/54 (66) 100 05/24/18 01:00 68 20 100/59 (73) 100 05/24/18 00:00 98.3 70 18 94/52 (66) 100 05/24/18 00:00 Nasal Cannula 2.0 05/24/18 00:00 70 05/23/18 23:00 78 21 118/97 (104) 100 05/23/18 22:00 81 21 97/62 (74) 100 05/23/18 21:18 91 147/100 05/23/18 21:00 86 15 147/100 (116) 100 05/23/18 20:00 97.3 80 18 137/64 (88) 100 05/23/18 20:00 80 05/23/18 20:00 Nasal Cannula 2.0 12/4/18 19:00 83 24 Nasal Cannula 3.0 32 05/23/18 19:00 78 28 97/57 (70) 99 05/23/18 19:00 100 Nasal Cannula 3.0 32 05/23/18 19:00 Nasal Cannula 3.0 32 05/23/18 18:30 72 20 95/55 (68) 98 05/23/18 18:15 75 31 93/47 (62) 99 05/23/18 18:00 98.7 78 20 81/42 (55) 98 05/23/18 17:53 70 14 100 05/23/18 17:52 Room Air 05/23/18 17:50 Room Air 05/23/18 12:00 97.5 103 20 153/72 (99) 97 05/23/18 12:00 69 05/23/18 12:00 Room Air Intake and Output 05/23/18 05/24/18 19:00 07:00 Intake Total 874.167 ml 741.667 ml Output Total 1250 ml 500 ml Balance -375.833 ml 241.667 ml Intake Oral 0 ml 20 ml IV Total 874.167 ml 721.667 ml Output Urine Total 850 ml 500 ml Other 400 ml # Bowel Movements 3 Laboratory Tests Test 05/23/18 13:22 05/23/18 18:10 05/24/18 05:35 Body Fluid Glucose Pending Body Fluid Total Protein Pending Digoxin Level 0.6 NG/ML (0.5-2.0) White Blood Count 12.4 K/UL (4.8-10.8) H Red Blood Count 3.21 M/UL (4.70-6.10) L Hemoglobin 9.4 G/DL (14.2-18.0) L Hematocrit 29.2 % (42.0-52.0) L Mean Corpuscular Volume 91 FL (80-99) Mean Corpuscular Hemoglobin 29.2 PG (27.0-31.0) Mean Corpuscular Hemoglobin Concent 32.2 G/DL (32.0-36.0) Red Cell Distribution Width 13.0 % (11.6-14.8) Platelet Count 223 K/UL (150-450) Mean Platelet Volume 5.0 FL (6.5-10.1) L Neutrophils (%) (Auto) 77.2 % (45.0-75.0) H Lymphocytes (%) (Auto) 10.0 % (20.0-45.0) L Monocytes (%) (Auto) 12.0 % (1.0-10.0) H Eosinophils (%) (Auto) 0.1 % (0.0-3.0) Basophils (%) (Auto) 0.8 % (0.0-2.0) Erythrocyte Sedimentation Rate 91 MM/HR (0-20) H Sodium Level 138 MMOL/L (136-145) Potassium Level 3.9 MMOL/L (3.5-5.1) Chloride Level 108 MMOL/L (98-107) H Carbon Dioxide Level 23 MMOL/L (21-32) Anion Gap 7 mmol/L (5-15) Blood Urea Nitrogen 11 mg/dL (7-18) Creatinine 0.6 MG/DL (0.55-1.30) Estimat Glomerular Filtration Rate > 60 mL/min (>60) Glucose Level 100 MG/DL (74-106) Calcium Level 7.5 MG/DL (8.5-10.1) L Phosphorus Level 2.7 MG/DL (2.5-4.9) Magnesium Level 1.5 MG/DL (1.8-2.4) L Total Bilirubin 0.5 MG/DL (0.2-1.0) Aspartate Amino Transf (AST/SGOT) 39 U/L (15-37) H Alanine Aminotransferase (ALT/SGPT) 14 U/L (12-78) Alkaline Phosphatase 129 U/L (46-116) H C-Reactive Protein, Quantitative 11.4 mg/dL (0.00-0.90) H Total Protein 5.6 G/DL (6.4-8.2) L Albumin 1.1 G/DL (3.4-5.0) L Globulin 4.5 g/dL Albumin/Globulin Ratio 0.2 (1.0-2.7) L Objective HEAD AND NECK: Mild JVD. LUNGS: Coarse rhonchi. CARDIOVASCULAR: Irregular S1 and S2 with no murmur. ABDOMEN: Soft. EXTREMITIES: S/P Bilateral Amandeep Mart MD May 24, 2018 10:42
--- NOTE | 2018-05-24 10:45 | Pulmonolgy Critical Care Note ---
Critical Care - Asmt/Plan Problems: (1) Atrial fibrillation with rapid ventricular response (2) Sepsis (3) Decubitus skin ulcer (4) Fever (5) CVA (cerebral vascular accident) (6) Bipolar disorder Respiratory: monitor respiratory rate, adjust FIO2 Cardiac: d/c cardiac specialist Renal: F/U I&O, keep IV fluid Infectious Disease: check cultures Gastrointestinal: continue feedings/current rate Endocrine: check TSH, check HgA1C Neurologic: PRN Ativan, PRN Morphine Affect: PRN ativan Prophylaxis: Protonix Notes Reviewed: cardio, renal Discussed with: nurses, consultants, returned case inspectormanager revenue - Objective Last 24 Hour Vital Signs Date Time Temp Pulse Resp B/P (MAP) Pulse Ox O2 Delivery O2 Flow Rate FiO2 05/24/18 08:58 91 110/62 05/24/18 08:52 91 05/24/18 08:24 Nasal Cannula 3.0 32 05/24/18 08:24 79 20 Nasal Cannula 3.0 32 05/24/18 07:50 71 14 98 05/24/18 06:00 79 14 96/62 (73) 100 05/24/18 05:00 74 17 98/53 (68) 100 05/24/18 04:02 98.0 74 16 92/59 (70) 100 05/24/18 04:02 Nasal Cannula 2.0 05/24/18 04:01 77 05/24/18 03:00 82 14 97/75 (82) 100 05/24/18 02:00 70 16 91/54 (66) 100 05/24/18 01:00 68 20 100/59 (73) 100 05/24/18 00:00 98.3 70 18 94/52 (66) 100 05/24/18 00:00 Nasal Cannula 2.0 05/24/18 00:00 70 05/23/18 23:00 78 21 118/97 (104) 100 05/23/18 22:00 81 21 97/62 (74) 100 05/23/18 21:18 91 147/100 05/23/18 21:00 86 15 147/100 (116) 100 05/23/18 20:00 97.3 80 18 137/64 (88) 100 05/23/18 20:00 80 05/23/18 20:00 Nasal Cannula 2.0 05/23/18 19:00 83 24 Nasal Cannula 3.0 32 05/23/18 19:00 78 28 97/57 (70) 99 05/23/18 19:00 100 Nasal Cannula 3.0 32 05/23/18 19:00 Nasal Cannula 3.0 32 05/23/18 18:30 72 20 95/55 (68) 98 05/23/18 18:15 75 31 93/47 (62) 99 05/23/18 18:00 98.7 78 20 81/42 (55) 98 05/23/18 17:53 70 14 100 05/23/18 17:52 Room Air 05/23/18 17:50 Room Air 05/23/18 12:00 97.5 103 20 153/72 (99) 97 05/23/18 12:00 69 05/23/18 12:00 Room Air Status: awake Condition: improving HEENT: atraumatic Lungs: clear, chest wall tender Heart: HR/BP unstable Abdomen: soft, active bowel sounds Extremities: no C/C/E Critical Care - Subjective ROS Limited/Unobtainable: Yes Condition: critical EKG Rhythm: Sinus Rhythm FI02: 32 Sputum Amount: None I&O: Intake and Output 05/23/18 05/24/18 19:00 07:00 Intake Total 874.167 ml 741.667 ml Output Total 1250 ml 500 ml Balance -375.833 ml 241.667 ml Intake Oral 0 ml 20 ml IV Total 874.167 ml 721.667 ml Output Urine Total 850 ml 500 ml Other 400 ml # Bowel Movements 3 CXR: total resolution of left effusion Labs: Laboratory Tests Test 05/23/18 13:22 05/23/18 18:10 05/24/18 05:35 Body Fluid Glucose Pending Body Fluid Total Protein Pending Digoxin Level 0.6 NG/ML (0.5-2.0) White Blood Count 12.4 K/UL (4.8-10.8) H Red Blood Count 3.21 M/UL (4.70-6.10) L Hemoglobin 9.4 G/DL (14.2-18.0) L Hematocrit 29.2 % (42.0-52.0) L Mean Corpuscular Volume 91 FL (80-99) Mean Corpuscular Hemoglobin 29.2 PG (27.0-31.0) Mean Corpuscular Hemoglobin Concent 32.2 G/DL (32.0-36.0) Red Cell Distribution Width 13.0 % (11.6-14.8) Platelet Count 223 K/UL (150-450) Mean Platelet Volume 5.0 FL (6.5-10.1) L Neutrophils (%) (Auto) 77.2 % (45.0-75.0) H Lymphocytes (%) (Auto) 10.0 % (20.0-45.0) L Monocytes (%) (Auto) 12.0 % (1.0-10.0) H Eosinophils (%) (Auto) 0.1 % (0.0-3.0) Basophils (%) (Auto) 0.8 % (0.0-2.0) Erythrocyte Sedimentation Rate 91 MM/HR (0-20) H Sodium Level 138 MMOL/L (136-145) Potassium Level 3.9 MMOL/L (3.5-5.1) Chloride Level 108 MMOL/L (98-107) H Carbon Dioxide Level 23 MMOL/L (21-32) Anion Gap 7 mmol/L (5-15) Blood Urea Nitrogen 11 mg/dL (7-18) Creatinine 0.6 MG/DL (0.55-1.30) Estimat Glomerular Filtration Rate > 60 mL/min (>60) Glucose Level 100 MG/DL (74-106) Calcium Level 7.5 MG/DL (8.5-10.1) L Phosphorus Level 2.7 MG/DL (2.5-4.9) Magnesium Level 1.5 MG/DL (1.8-2.4) L Total Bilirubin 0.5 MG/DL (0.2-1.0) Aspartate Amino Transf (AST/SGOT) 39 U/L (15-37) H Alanine Aminotransferase (ALT/SGPT) 14 U/L (12-78) Alkaline Phosphatase 129 U/L (46-116) H C-Reactive Protein, Quantitative 11.4 mg/dL (0.00-0.90) H Total Protein 5.6 G/DL (6.4-8.2) L Albumin 1.1 G/DL (3.4-5.0) L Globulin 4.5 g/dL Albumin/Globulin Ratio 0.2 (1.0-2.7) L Zarrabi,Mirali MD May 24, 2018 10:45
--- NOTE | 2018-05-24 11:28 | Diagnostic Imaging Report ---
Indications: Needs long-term IV access Technique: Procedure performed at bedside. Procedural timeout performed. Ultrasound confirms patent compressible left brachial vein. Total sterile technique, including sterile probe cover and sterile gel, sterile gloves, hand hygiene, hat, mask,, sterile gown, large sterile drape, and preparation with 2% chlorhexidine utilized. Local anesthesia with 1% lidocaine. Under real-time ultrasound guidance, puncture brachial vein using 21-gauge needle, passage 0.018 guidewire, exchange for 5 Haitian peel-away sheath. 5 Haitian artery dual-lumen power PICC cut to 43 cm. It was inserted through the peel-away sheath. Peel-away sheath and guidewire removed. Catheter fixed to the skin. Both catheter ports aspirated and flushed. Patient tolerated procedure well, without immediate complication. Followup chest x-ray obtained, documents catheter tip position at the cavoatrial junction Impression: Successful bedside placement of abdominal PICC under sonographic guidance, as described above.
--- NOTE | 2018-05-24 12:28 | Internal Med Progress Note ---
Subjective Date of Service: May 24, 2018 Physician Name Jackson,Daniel Attending Physician Pedro Caban MD Current Medications Medications (Trade) Dose Ordered Sig/Erlin Route PRN Reason Start Time Stop Time Status Last Admin Dose Admin Acetaminophen (Tylenol) 650 mg Q4H PRN ORAL Mild Pain/Temp > 100.5 05/23/18 20:45 06/11/18 12:34 05/24/18 12:20 Al Hydroxide/Mg Hydroxide (Mylanta) 15 ml Q6H PRN ORAL DYSPEPSIA 05/23/18 20:45 06/22/18 20:44 Albuterol/ Ipratropium (Albuterol/ Ipratropium) 3 ml Q4H PRN HHN Shortness of Breath 05/23/18 20:45 05/28/18 20:44 Amiodarone HCl (Cordarone) 200 mg DAILY ORAL 05/24/18 09:00 06/17/18 08:59 05/24/18 08:53 Cefepime HCl 1 gm/ Dextrose 55 ml @ 110 mls/hr EVERY 12 HOURS IVPB 05/23/18 21:00 05/28/18 11:59 05/24/18 09:33 Chlorhexidine Gluconate (Yari-Hex 2%) 1 applic DAILY@2000 TOPIC 05/24/18 20:00 06/23/18 19:59 Digoxin (Lanoxin) 0.125 mg DAILY ORAL 05/24/18 09:00 06/12/18 08:59 05/24/18 08:52 Diphenhydramine HCl (Benadryl) 25 mg Q8H PRN ORAL Itching/Pruritis 05/23/18 20:45 06/22/18 20:44 Docusate Sodium (Colace) 100 mg TWICE A DAY ORAL 05/24/18 09:00 06/22/18 17:59 05/24/18 08:53 Enoxaparin Sodium (Lovenox) 80 mg EVERY 12 HOURS SUBQ 05/23/18 21:30 06/18/18 20:59 05/24/18 09:26 Gabapentin (Neurontin) 100 mg THREE TIMES A DAY ORAL 05/24/18 09:00 06/11/18 17:59 05/24/18 12:19 Hydromorphone HCl (Dilaudid) 0.5 mg Q3H PRN IVP Pain Score 1-3 05/23/18 20:45 05/30/18 17:44 05/24/18 08:55 Hydromorphone HCl (Dilaudid) 1 mg Q3H PRN IVP pain score 4-6 05/23/18 20:45 05/30/18 17:44 Hydromorphone HCl (Dilaudid) 2 mg Q3H PRN IVP pain score 7-10 05/23/18 20:45 05/30/18 17:44 Lorazepam (Ativan 2mg/ml 1ml) 1 mg Q4H PRN IV For Anxiety 05/23/18 20:45 05/30/18 20:44 Magnesium Hydroxide (Mom) 30 ml BIDPRN PRN ORAL Constipation 05/23/18 20:45 06/22/18 20:44 Metoprolol Tartrate (Lopressor) 50 mg Q12HR ORAL 05/23/18 21:00 06/11/18 20:59 05/24/18 08:58 Metronidazole (Flagyl) 500 mg Q8H ORAL 05/24/18 02:00 05/26/18 17:59 05/24/18 10:27 Ondansetron HCl (Zofran) 4 mg Q6H PRN IVP Nausea & Vomiting 05/23/18 20:45 06/22/18 20:44 Polyethylene Glycol (Miralax) 17 gm DAILY ORAL 05/24/18 09:00 06/16/18 10:59 05/24/18 08:57 Potassium Chloride 10 meq/ Dextrose/Sodium Chloride 1,005 ml @ 50 mls/hr Q20H6M IV 05/23/18 20:45 06/22/18 20:44 05/23/18 22:45 Quetiapine Fumarate (SEROquel) 100 mg BEDTIME ORAL 05/23/18 21:00 06/11/18 20:59 05/23/18 21:18 Sennosides (Senokot) 8.6 mg BIDPRN PRN ORAL Constipation 05/23/18 20:45 06/22/18 20:44 Temazepam (Restoril) 7.5 mg HSPRN PRN ORAL Insomnia 05/23/18 20:45 05/30/18 20:44 Vancomycin HCl (Vanco rx to dose) 1 ea DAILY PRN MISC Per rx protocol 05/23/18 20:45 06/22/18 20:44 Vancomycin/Sodium Chloride 250 ml @ 166.667 mls/hr Q8H IVPB 05/23/18 21:00 05/28/18 12:59 05/24/18 12:20 Allergies: Coded Allergies: MILK (Verified Allergy, Unknown, 02/02/18) ROS Limited/Unobtainable: No Constitutional: Reports: no symptoms HEENT: Reports: no symptoms Cardiovascular: Reports: no symptoms Respiratory: Reports: no symptoms Gastrointestinal/Abdominal: Reports: no symptoms 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: Reports: no symptoms Subjective 68 YO A M admitted with altered mental status. Now sepsis and atrial fibrillation with rapid rate. Cover for Int Med-Dr Caban. ICU. 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 Objective Last Vital Signs Date Time Temp Pulse Resp B/P (MAP) Pulse Ox O2 Delivery O2 Flow Rate FiO2 05/24/18 11:00 78 17 133/59 (83) 100 05/24/18 08:24 Nasal Cannula 3.0 32 05/24/18 07:00 100.0 Laboratory Tests Test 05/23/18 13:22 05/23/18 18:10 05/24/18 05:35 Body Fluid Glucose Pending Body Fluid Total Protein Pending Digoxin Level 0.6 NG/ML (0.5-2.0) White Blood Count 12.4 K/UL (4.8-10.8) H Red Blood Count 3.21 M/UL (4.70-6.10) L Hemoglobin 9.4 G/DL (14.2-18.0) L Hematocrit 29.2 % (42.0-52.0) L Mean Corpuscular Volume 91 FL (80-99) Mean Corpuscular Hemoglobin 29.2 PG (27.0-31.0) Mean Corpuscular Hemoglobin Concent 32.2 G/DL (32.0-36.0) Red Cell Distribution Width 13.0 % (11.6-14.8) Platelet Count 223 K/UL (150-450) Mean Platelet Volume 5.0 FL (6.5-10.1) L Neutrophils (%) (Auto) 77.2 % (45.0-75.0) H Lymphocytes (%) (Auto) 10.0 % (20.0-45.0) L Monocytes (%) (Auto) 12.0 % (1.0-10.0) H Eosinophils (%) (Auto) 0.1 % (0.0-3.0) Basophils (%) (Auto) 0.8 % (0.0-2.0) Erythrocyte Sedimentation Rate 91 MM/HR (0-20) H Sodium Level 138 MMOL/L (136-145) Potassium Level 3.9 MMOL/L (3.5-5.1) Chloride Level 108 MMOL/L (98-107) H Carbon Dioxide Level 23 MMOL/L (21-32) Anion Gap 7 mmol/L (5-15) Blood Urea Nitrogen 11 mg/dL (7-18) Creatinine 0.6 MG/DL (0.55-1.30) Estimat Glomerular Filtration Rate > 60 mL/min (>60) Glucose Level 100 MG/DL (74-106) Calcium Level 7.5 MG/DL (8.5-10.1) L Phosphorus Level 2.7 MG/DL (2.5-4.9) Magnesium Level 1.5 MG/DL (1.8-2.4) L Total Bilirubin 0.5 MG/DL (0.2-1.0) Aspartate Amino Transf (AST/SGOT) 39 U/L (15-37) H Alanine Aminotransferase (ALT/SGPT) 14 U/L (12-78) Alkaline Phosphatase 129 U/L (46-116) H C-Reactive Protein, Quantitative 11.4 mg/dL (0.00-0.90) H Total Protein 5.6 G/DL (6.4-8.2) L Albumin 1.1 G/DL (3.4-5.0) L Globulin 4.5 g/dL Albumin/Globulin Ratio 0.2 (1.0-2.7) L Intake and Output 05/23/18 05/24/18 19:00 07:00 Intake Total 874.167 ml 791.667 ml Output Total 1250 ml 500 ml Balance -375.833 ml 291.667 ml Intake Oral 0 ml 20 ml IV Total 874.167 ml 771.667 ml Output Urine Total 850 ml 500 ml Other 400 ml # Bowel Movements 3 Objective General Appearance: alert, thin, agitated EENT: PERRL/EOMI, normal ENT inspection Neck: non-tender, normal alignment, supple, normal inspection Cardiovascular: normal peripheral pulses, normal rate, no gallop/murmur, no JVD , irregularly irregular Respiratory/Chest: chest wall non-tender, lungs clear, normal breath sounds, no respiratory distress, no accessory muscle use Abdomen: normal bowel sounds, non tender, soft, no organomegaly, no mass Extremities: normal range of motion, non-tender Neurologic: netsuite consultant II-XII grossly 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 (8) Sepsis Assessment & Plan: Continue cefepime and vanco per ID (9) UTI (urinary tract infection) Assessment & Plan: Mixed culture-continue vanco and cefepime per ID (10) Leukocytosis (11) Deep venous thrombosis of right femoral vein Assessment & Plan: D/C eliquis. Start lovenox SQ; D/C lovenox on Tuesday prior to surgery (12) Gangrene Assessment & Plan: S/P above the knee amputation Bilat lower ext 05/23/18 Status: not improved Daniel Jackson MD May 24, 2018 12:27
[2018-05-24] MEDS: HYDROmorphone 1mg/ml Carpuject IVP PRN ×3 (12:38→21:01)
--- NOTE | 2018-05-24 13:05 | Infectious Diseases Prog Note ---
Assessment/Plan Assessment/Plan - 68 yo male who was transferred from [place] where he initially presented for AMS from [facility]. Small lung cavitary lesion/ PNA- suspect likely to aspiration; lower suspicion for TB and/or fungal etiologies -CT c/a/p: 10 mm opacity in the peripheral anterolateral right upper lobe with small central cavitation. Patchy groundglass opacity in the posterior right upper lobe. Suspect that these represent inflammatory/infectious lesions, but neoplastic etiology of either is certainly possible. Large left and moderate right pleural effusions. Resultant compressive atelectasis of portions of the lower lobes. Equivocal distal esophageal wall thickening, could indicate esophagitis if real -sp cx p -AFB sp cx; smear neg x1 Sepsis / to bacteremia (at OSH) Likely source is skin ulcer Blood Cx 05/12/18 at [place] [facility] -Bcx 05/12 and (here) NTD 2d echo: no vegetations 05/15 CXR: Right midlung nodule. Absence of this finding on previous study makes this more likely to be a focus of inflammation, but rapidly growing neoplasm not excludable. Left basilar hazy opacity. Most likely a moderate to large pleural effusion.Component of infiltrate or atelectasis is also possible 05/12 CXR: Asymmetric ill-defined confluent groundglass opacity within the left mid/inferior lung, of uncertain etiology. B/l LE necrotic ulcer and toes- acute on chronci, ischemic w/ likely superinfection- likely non-salvageable per surgery -05/23 SP B/l BKA Febrile to 101 ([employer])- here non so far Leukocytosis ,SP Afib w/ RVR AMS Likely secondary to sepsis Cerebrovascular accident. Hypertension. Sacral decubitus ulcers. Bipolar disorder. Coronary artery disease. Plan - Continue Cefepime #13 and Vancomycin #13 pending Cx -Cont PO Flagyl #6 for anaerobic coverage -Airborne isolation -AFB sp cx x3,MTB PCR x1 -f/u cocci ab, CrAg, fungal sp cx, T-spot - f/u Blood Cx - Wound care - Monitor CBC and Temps -f/u sp cx, u/a w/ reflex -Cdiff if diarrhea -Obtain records from [place] for BCx results -Sx f/u Thank you for this consult. We will continue to follow the patient during this hospitalization. Discussed withRN Subjective Allergies: Coded Allergies: MILK (Verified Allergy, Unknown, 02/02/18) Subjective afebrile leukocytosis post-op s/p BL BkA yesterday and transfered to ICU afterwars intubated extubated today Objective Vital Signs Last 24 Hour Vital Signs Date Time Temp Pulse Resp B/P (MAP) Pulse Ox O2 Delivery O2 Flow Rate FiO2 05/24/18 11:00 78 17 133/59 (83) 100 05/24/18 10:00 89 19 115/56 (75) 100 05/24/18 09:00 92 20 127/96 (106) 100 05/24/18 08:58 91 110/62 05/24/18 08:52 91 05/24/18 08:24 Nasal Cannula 3.0 32 05/24/18 08:24 79 20 Nasal Cannula 3.0 32 05/24/18 08:00 Nasal Cannula 2.0 05/24/18 08:00 84 21 110/62 (78) 100 05/24/18 08:00 75 05/24/18 07:50 71 14 98 05/24/18 07:00 100.0 77 14 100/56 (71) 100 05/24/18 06:00 79 14 96/62 (73) 100 05/24/18 05:00 74 17 98/53 (68) 100 05/24/18 04:02 98.0 74 16 92/59 (70) 100 05/24/18 04:02 Nasal Cannula 2.0 05/24/18 04:01 77 05/24/18 03:00 82 14 97/75 (82) 100 05/24/18 02:00 70 16 91/54 (66) 100 05/24/18 01:00 68 20 100/59 (73) 100 05/24/18 00:00 98.3 70 18 94/52 (66) 100 05/24/18 00:00 Nasal Cannula 2.0 05/24/18 00:00 70 05/23/18 23:00 78 21 118/97 (104) 100 05/23/18 22:00 81 21 97/62 (74) 100 05/23/18 21:18 91 147/100 05/23/18 21:00 86 15 147/100 (116) 100 05/23/18 20:00 97.3 80 18 137/64 (88) 100 05/23/18 20:00 80 05/23/18 20:00 Nasal Cannula 2.0 05/23/18 19:00 83 24 Nasal Cannula 3.0 32 05/23/18 19:00 78 28 97/57 (70) 99 05/23/18 19:00 100 Nasal Cannula 3.0 32 05/23/18 19:00 Nasal Cannula 3.0 32 05/23/18 18:30 72 20 95/55 (68) 98 05/23/18 18:15 75 31 93/47 (62) 99 05/23/18 18:00 98.7 78 20 81/42 (55) 98 05/23/18 17:53 70 14 100 05/23/18 17:52 Room Air 05/23/18 17:50 Room Air Height (Feet): 6 Height (Inches): 5.00 Weight (Pounds): 169 Objective Gen: NAD. Mumbling HEENT: NCAT, MMM, EOMI, No Oral lesion, no scleral icterus NECK: full range of motion, supple, no meningismus, No LAD, No JVD LUNGS: CTAB, No W/C, No Accessory muscle use CARDS: RRR, S1, S2, No M/R/G ABD: Soft, NT, ND, No R/G, + BS, No HSM, No Masses : Deferred Ext: C/C/E, Pulses 2+ B/L (DP, Rad) NEURO: A/O x 0, Strength and Sensation Grossly intact PSYCH: mood/affect normal SKIN: Left foot wound. No purulent drainage, Feet now bandaged Laboratory Tests Test 05/23/18 13:22 05/23/18 18:10 05/24/18 05:35 Body Fluid Glucose Pending Body Fluid Total Protein Pending Digoxin Level 0.6 NG/ML (0.5-2.0) White Blood Count 12.4 K/UL (4.8-10.8) H Red Blood Count 3.21 M/UL (4.70-6.10) L Hemoglobin 9.4 G/DL (14.2-18.0) L Hematocrit 29.2 % (42.0-52.0) L Mean Corpuscular Volume 91 FL (80-99) Mean Corpuscular Hemoglobin 29.2 PG (27.0-31.0) Mean Corpuscular Hemoglobin Concent 32.2 G/DL (32.0-36.0) Red Cell Distribution Width 13.0 % (11.6-14.8) Platelet Count 223 K/UL (150-450) Mean Platelet Volume 5.0 FL (6.5-10.1) L Neutrophils (%) (Auto) 77.2 % (45.0-75.0) H Lymphocytes (%) (Auto) 10.0 % (20.0-45.0) L Monocytes (%) (Auto) 12.0 % (1.0-10.0) H Eosinophils (%) (Auto) 0.1 % (0.0-3.0) Basophils (%) (Auto) 0.8 % (0.0-2.0) Erythrocyte Sedimentation Rate 91 MM/HR (0-20) H Sodium Level 138 MMOL/L (136-145) Potassium Level 3.9 MMOL/L (3.5-5.1) Chloride Level 108 MMOL/L (98-107) H Carbon Dioxide Level 23 MMOL/L (21-32) Anion Gap 7 mmol/L (5-15) Blood Urea Nitrogen 11 mg/dL (7-18) Creatinine 0.6 MG/DL (0.55-1.30) Estimat Glomerular Filtration Rate > 60 mL/min (>60) Glucose Level 100 MG/DL (74-106) Calcium Level 7.5 MG/DL (8.5-10.1) L Phosphorus Level 2.7 MG/DL (2.5-4.9) Magnesium Level 1.5 MG/DL (1.8-2.4) L Total Bilirubin 0.5 MG/DL (0.2-1.0) Aspartate Amino Transf (AST/SGOT) 39 U/L (15-37) H Alanine Aminotransferase (ALT/SGPT) 14 U/L (12-78) Alkaline Phosphatase 129 U/L (46-116) H C-Reactive Protein, Quantitative 11.4 mg/dL (0.00-0.90) H Total Protein 5.6 G/DL (6.4-8.2) L Albumin 1.1 G/DL (3.4-5.0) L Globulin 4.5 g/dL Albumin/Globulin Ratio 0.2 (1.0-2.7) L Current Medications Medications (Trade) Dose Ordered Sig/Erlin Route PRN Reason Start Time Stop Time Status Last Admin Dose Admin Acetaminophen (Tylenol) 650 mg Q4H PRN ORAL Mild Pain/Temp > 100.5 05/23/18 20:45 06/11/18 12:34 05/24/18 12:20 Al Hydroxide/Mg Hydroxide (Mylanta) 15 ml Q6H PRN ORAL DYSPEPSIA 05/23/18 20:45 06/22/18 20:44 Albuterol/ Ipratropium (Albuterol/ Ipratropium) 3 ml Q4H PRN HHN Shortness of Breath 05/23/18 20:45 05/28/18 20:44 Amiodarone HCl (Cordarone) 200 mg DAILY ORAL 05/24/18 09:00 06/17/18 08:59 05/24/18 08:53 Cefepime HCl 1 gm/ Dextrose 55 ml @ 110 mls/hr EVERY 12 HOURS IVPB 05/23/18 21:00 05/28/18 11:59 05/24/18 09:33 Chlorhexidine Gluconate (Yari-Hex 2%) 1 applic DAILY@2000 TOPIC 05/24/18 20:00 06/23/18 19:59 Digoxin (Lanoxin) 0.125 mg DAILY ORAL 05/24/18 09:00 06/12/18 08:59 05/24/18 08:52 Diphenhydramine HCl (Benadryl) 25 mg Q8H PRN ORAL Itching/Pruritis 05/23/18 20:45 06/22/18 20:44 Docusate Sodium (Colace) 100 mg TWICE A DAY ORAL 05/24/18 09:00 06/22/18 17:59 05/24/18 08:53 Enoxaparin Sodium (Lovenox) 80 mg EVERY 12 HOURS SUBQ 05/23/18 21:30 06/18/18 20:59 05/24/18 09:26 Gabapentin (Neurontin) 100 mg THREE TIMES A DAY ORAL 05/24/18 09:00 06/11/18 17:59 05/24/18 12:19 Hydromorphone HCl (Dilaudid) 0.5 mg Q3H PRN IVP Pain Score 1-3 05/23/18 20:45 05/30/18 17:44 05/24/18 08:55 Hydromorphone HCl (Dilaudid) 1 mg Q3H PRN IVP pain score 4-6 05/23/18 20:45 05/30/18 17:44 05/24/18 12:38 Hydromorphone HCl (Dilaudid) 2 mg Q3H PRN IVP pain score 7-10 05/23/18 20:45 05/30/18 17:44 Lorazepam (Ativan 2mg/ml 1ml) 1 mg Q4H PRN IV For Anxiety 05/23/18 20:45 05/30/18 20:44 Magnesium Hydroxide (Mom) 30 ml BIDPRN PRN ORAL Constipation 05/23/18 20:45 06/22/18 20:44 Metoprolol Tartrate (Lopressor) 50 mg Q12HR ORAL 05/23/18 21:00 06/11/18 20:59 05/24/18 08:58 Metronidazole (Flagyl) 500 mg Q8H ORAL 05/24/18 02:00 05/26/18 17:59 05/24/18 10:27 Ondansetron HCl (Zofran) 4 mg Q6H PRN IVP Nausea & Vomiting 05/23/18 20:45 06/22/18 20:44 Polyethylene Glycol (Miralax) 17 gm DAILY ORAL 05/24/18 09:00 06/16/18 10:59 05/24/18 08:57 Potassium Chloride 10 meq/ Dextrose/Sodium Chloride 1,005 ml @ 50 mls/hr Q20H6M IV 05/23/18 20:45 06/22/18 20:44 05/23/18 22:45 Quetiapine Fumarate (SEROquel) 100 mg BEDTIME ORAL 05/23/18 21:00 06/11/18 20:59 05/23/18 21:18 Sennosides (Senokot) 8.6 mg BIDPRN PRN ORAL Constipation 05/23/18 20:45 06/22/18 20:44 Temazepam (Restoril) 7.5 mg HSPRN PRN ORAL Insomnia 05/23/18 20:45 05/30/18 20:44 Vancomycin HCl (Vanco rx to dose) 1 ea DAILY PRN MISC Per rx protocol 05/23/18 20:45 06/22/18 20:44 Vancomycin/Sodium Chloride 250 ml @ 166.667 mls/hr Q8H IVPB 05/23/18 21:00 05/28/18 12:59 05/24/18 12:20 Alma Elkins M.D. May 24, 2018 13:05
--- NOTE | 2018-05-24 13:36 | General Progress Note ---
Progress Note Progress Note Surgery: s/p bilateral AKA recovering labs noted awake and alert today has pain but improving hungry dressings clean and dry appreciate ICU care and management diet as tolerated Abx as per ID leave dressings for now keep AKA elevated buttock wound care will follow with recs. thank you Goyo Osuna May 24, 2018 13:36
[2018-05-24] MEDS: Potassium Chloride 10 MEQ in D5 1/2NS 1,000 ML IV SCH ×2 (17:26→18:25)
[2018-05-24] MEDS ORDERED: Albuterol/Ipratropium 3ml neb HHN PRN (18:14)
[2018-05-24] MEDS ORDERED: LORazepam Inj 2mg/ml 1ml IV PRN (18:15)
[2018-05-24] MEDS ORDERED: Hydromorphone 0.5mg/0.5ml inj IVP PRN (18:15)
[2018-05-24] MEDS ORDERED: Milk of Magnesia 30ml Ud ORAL PRN (18:16)
[2018-05-24] MEDS ORDERED: Sennosides 8.6mg tab ORAL PRN (18:16)
[2018-05-24] MEDS ORDERED: Dyna-Hex 2% Top Sol 2oz TOPIC SCH (20:00)
[2018-05-24] MEDS: Dyna-Hex 2% Top Sol 2oz TOPIC SCH (21:06)
[2018-05-25 00:03] VITALS: BP 97/52
[2018-05-25] MEDS: metroNIDAZOLE 500mg tab ORAL SCH ×3 (01:37→17:03)
[2018-05-25] MEDS: HYDROmorphone 1mg/ml Carpuject IVP PRN ×5 (01:42→21:53)
[2018-05-25 04:00] VITALS: BP 140/61
[2018-05-25 04:28] LABS: BASOPHILS % (AUTO) 0.5 % (0.0-2.0); EOSINOPHILS % (AUTO) 0.2 % (0.0-3.0); HEMATOCRIT 28.6 % (42.0-52.0); HEMOGLOBIN 9.1 G/DL (14.2-18.0); LYMPHOCYTES % (AUTO) 10.9 % (20.0-45.0); MEAN CORPUSCULAR VOLUME 90 FL (80-99); MONOCYTES % (AUTO) 12.5 % (1.0-10.0); PLATELET COUNT 199 K/UL (150-450); RED BLOOD COUNT 3.16 M/UL (4.70-6.10); RED CELL DISTRIBUTION WIDTH 13.1 % (11.6-14.8); WHITE BLOOD COUNT 13.5 K/UL (4.8-10.8)
[2018-05-25 04:46] LABS: ALANINE AMINOTRANSFERASE 14 U/L (12-78); ALBUMIN/GLOBULIN RATIO 0.2 (1.0-2.7); ALKALINE PHOSPHATASE 115 U/L (46-116); ANION GAP 4 mmol/L (5-15); ASPARTATE AMINO TRANSFERASE 28 U/L (15-37); BILIRUBIN,TOTAL 0.4 MG/DL (0.2-1.0); BLOOD UREA NITROGEN 11 mg/dL (7-18); CALCIUM 7.4 MG/DL (8.5-10.1); CARBON DIOXIDE 27 MMOL/L (21-32); CHLORIDE 108 MMOL/L (98-107); CREATININE 0.7 MG/DL (0.55-1.30); PHOSPHORUS 2.4 MG/DL (2.5-4.9); POTASSIUM 3.6 MMOL/L (3.5-5.1); SODIUM 139 MMOL/L (136-145)
[2018-05-25] MEDS: Vancomycin 750mg/NS 250ml 250 ML IVPB SCH (04:47)
[2018-05-25 08:00] VITALS: BP 108/71
[2018-05-25] MEDS ORDERED: Vancomycin 1 GM in NS 275 ML IVPB SCH (08:00)
[2018-05-25] MEDS: Cefepime HCl 1 GM in D5W 55 ML IVPB SCH ×2 (08:54→22:02)
[2018-05-25] MEDS: Miralax 17gm pkt ORAL SCH (08:55)
[2018-05-25] MEDS: Docusate 100mg cap ORAL SCH ×2 (08:55→17:03)
[2018-05-25] MEDS: Metoprolol Tartrate 50mg tab ORAL SCH ×2 (08:56→21:51)
[2018-05-25] MEDS: Amiodarone 200mg tab ORAL SCH (08:56)
[2018-05-25] MEDS: Digoxin 0.125mg tab ORAL SCH (08:56)
[2018-05-25] MEDS: Enoxaparin 80mg Inj SUBQ SCH ×2 (09:01→21:56)
--- NOTE | 2018-05-25 10:49 | Cardiac Electrophysiology PN ---
Assessment/Plan Assessment/Plan 1. Paroxysmal Atrial fibrillation and flutter with RVR Continue digoxin 0.125 daily, metoprolol 50 bid and Amiodarone 200 daily. Lovenox 80 b.i.d. 2. Borderline hypotension. Resolved 3. Fever and sepsis, on antibiotic with vancomycin and cefepime. 4. History of dementia and severe psychosis, on Seroquel. 5. Severe bilateral leg ulcers and sacral decubitus. S/P Bilateral AKA by Dr Enrrique GERMAN RN Subjective Subjective Post Bilateral AKA, still in resp isolation for possible TB Objective Last 24 Hour Vital Signs Date Time Temp Pulse Resp B/P (MAP) Pulse Ox O2 Delivery O2 Flow Rate FiO2 05/25/18 09:00 Nasal Cannula 2.0 05/25/18 08:56 74 108/71 05/25/18 08:56 74 05/25/18 08:00 98.2 74 20 108/71 (83) 97 05/25/18 04:00 97.7 71 20 140/61 (87) 99 05/25/18 03:15 67 05/25/18 00:03 99.1 58 22 97/52 (67) 99 05/24/18 23:27 99.1 05/24/18 23:19 84 05/24/18 21:10 94 134/68 05/24/18 21:00 Nasal Cannula 2.0 05/24/18 20:20 83 05/24/18 20:00 99.9 94 18 134/68 (90) 100 05/24/18 20:00 98 Nasal Cannula 2.0 28 05/24/18 20:00 90 20 Nasal Cannula 2.0 28 05/24/18 19:30 Nasal Cannula 2.0 28 05/24/18 17:00 98.6 86 18 106/61 (76) 100 73 05/24/18 16:00 73 05/24/18 16:00 Nasal Cannula 2.0 05/24/18 16:00 73 18 80/44 (56) 100 05/24/18 14:00 79 19 107/63 (78) 100 05/24/18 13:00 68 20 130/59 (82) 100 05/24/18 12:50 99.6 05/24/18 12:00 Nasal Cannula 2.0 05/24/18 12:00 99.6 67 16 119/60 (79) 100 05/24/18 12:00 79 05/24/18 11:00 78 17 133/59 (83) 100 Intake and Output 05/24/18 05/25/18 18:59 06:59 Intake Total 896.334 ml 1091.667 ml Output Total 50 ml 400 ml Balance 846.334 ml 691.667 ml Intake Oral 8 ml IV Total 888.334 ml 1091.667 ml Output Urine Total 50 ml 400 ml Laboratory Tests Test 05/25/18 04:15 White Blood Count 13.5 K/UL (4.8-10.8) H Red Blood Count 3.16 M/UL (4.70-6.10) L Hemoglobin 9.1 G/DL (14.2-18.0) L Hematocrit 28.6 % (42.0-52.0) L Mean Corpuscular Volume 90 FL (80-99) Mean Corpuscular Hemoglobin 28.9 PG (27.0-31.0) Mean Corpuscular Hemoglobin Concent 31.9 G/DL (32.0-36.0) L Red Cell Distribution Width 13.1 % (11.6-14.8) Platelet Count 199 K/UL (150-450) Mean Platelet Volume 5.1 FL (6.5-10.1) L Neutrophils (%) (Auto) 76.0 % (45.0-75.0) H Lymphocytes (%) (Auto) 10.9 % (20.0-45.0) L Monocytes (%) (Auto) 12.5 % (1.0-10.0) H Eosinophils (%) (Auto) 0.2 % (0.0-3.0) Basophils (%) (Auto) 0.5 % (0.0-2.0) Sodium Level 139 MMOL/L (136-145) Potassium Level 3.6 MMOL/L (3.5-5.1) Chloride Level 108 MMOL/L (98-107) H Carbon Dioxide Level 27 MMOL/L (21-32) Anion Gap 4 mmol/L (5-15) L Blood Urea Nitrogen 11 mg/dL (7-18) Creatinine 0.7 MG/DL (0.55-1.30) Estimat Glomerular Filtration Rate > 60 mL/min (>60) Glucose Level 104 MG/DL (74-106) Calcium Level 7.4 MG/DL (8.5-10.1) L Phosphorus Level 2.4 MG/DL (2.5-4.9) L Magnesium Level 1.4 MG/DL (1.8-2.4) L Total Bilirubin 0.4 MG/DL (0.2-1.0) Aspartate Amino Transf (AST/SGOT) 28 U/L (15-37) Alanine Aminotransferase (ALT/SGPT) 14 U/L (12-78) Alkaline Phosphatase 115 U/L (46-116) Total Protein 5.6 G/DL (6.4-8.2) L Albumin 1.0 G/DL (3.4-5.0) L Globulin 4.6 g/dL Albumin/Globulin Ratio 0.2 (1.0-2.7) L Vancomycin Level Trough 20.5 ug/mL (5.0-12.0) H Objective HEAD AND NECK: Mild JVD. LUNGS: Coarse rhonchi. CARDIOVASCULAR: Irregular S1 and S2 with no murmur. ABDOMEN: Soft. EXTREMITIES: S/P Bilateral Amandeep Mart MD May 25, 2018 10:49
--- NOTE | 2018-05-25 11:22 | Infectious Diseases Prog Note ---
Assessment/Plan Assessment/Plan - 68 yo male who was transferred from [place] where he initially presented for AMS from [facility]. Low grade fever, improving Leukocytosis ,recurrent increasing- -?post-op vs JAYLA (UTI, PNA) Small lung cavitary lesion/ PNA- suspect likely to aspiration; lower suspicion for TB and/or fungal etiologies -CT c/a/p: 10 mm opacity in the peripheral anterolateral right upper lobe with small central cavitation. Patchy groundglass opacity in the posterior right upper lobe. Suspect that these represent inflammatory/infectious lesions, but neoplastic etiology of either is certainly possible. Large left and moderate right pleural effusions. Resultant compressive atelectasis of portions of the lower lobes. Equivocal distal esophageal wall thickening, could indicate esophagitis if real -sp cx p -AFB sp cx; smear neg x1 Sepsis / to bacteremia (at OSH) Likely source is skin ulcer Blood Cx 05/12/18 at [place] [facility] -Bcx 05/12 and (here) NTD 2d echo: no vegetations 05/15 CXR: Right midlung nodule. Absence of this finding on previous study makes this more likely to be a focus of inflammation, but rapidly growing neoplasm not excludable. Left basilar hazy opacity. Most likely a moderate to large pleural effusion.Component of infiltrate or atelectasis is also possible 05/12 CXR: Asymmetric ill-defined confluent groundglass opacity within the left mid/inferior lung, of uncertain etiology. B/l LE necrotic ulcer and toes- acute on chronci, ischemic w/ likely superinfection- likely non-salvageable per surgery -05/23 SP B/l BKA Afib w/ RVR AMS Likely secondary to sepsis Cerebrovascular accident. Hypertension. Sacral decubitus ulcers. Bipolar disorder. Coronary artery disease. Plan - Continue Cefepime #14 and Vancomycin #14 pending Cx -Cont PO Flagyl #7 for anaerobic coverage -low threshold to switch Cefepime and Flagyl to Meropenem if decompensates -u/a w/, Bcx x2, CXR -Airborne isolation -AFB sp cx x3,MTB PCR x1 -f/u cocci ab, \ungal sp cx, - f/u Blood Cx - Wound care - Monitor CBC and Temps -f/u sp cx, u/a w/ reflex -Cdiff if diarrhea -Obtain records from [place] for BCx results -Sx f/u -CBC, CMP am Thank you for this consult. We will continue to follow the patient during this hospitalization. Discussed withRN Subjective Allergies: Coded Allergies: MILK (Verified Allergy, Unknown, 02/02/18) Subjective afebrile leukocytosis post-op s/p BL BkA yesterday and transfered to ICU afterwars intubated extubated today Objective Vital Signs Last 24 Hour Vital Signs Date Time Temp Pulse Resp B/P (MAP) Pulse Ox O2 Delivery O2 Flow Rate FiO2 05/25/18 09:00 Nasal Cannula 2.0 05/25/18 08:56 74 108/71 05/25/18 08:56 74 05/25/18 08:00 98.2 74 20 108/71 (83) 97 05/25/18 04:00 97.7 71 20 140/61 (87) 99 05/25/18 03:15 67 05/25/18 00:03 99.1 58 22 97/52 (67) 99 05/24/18 23:27 99.1 05/24/18 23:19 84 05/24/18 21:10 94 134/68 05/24/18 21:00 Nasal Cannula 2.0 05/24/18 20:20 83 05/24/18 20:00 99.9 94 18 134/68 (90) 100 05/24/18 20:00 98 Nasal Cannula 2.0 28 05/24/18 20:00 90 20 Nasal Cannula 2.0 28 05/24/18 19:30 Nasal Cannula 2.0 28 05/24/18 17:00 98.6 86 18 106/61 (76) 100 73 05/24/18 16:00 73 05/24/18 16:00 Nasal Cannula 2.0 05/24/18 16:00 73 18 80/44 (56) 100 05/24/18 14:00 79 19 107/63 (78) 100 05/24/18 13:00 68 20 130/59 (82) 100 05/24/18 12:50 99.6 05/24/18 12:00 Nasal Cannula 2.0 05/24/18 12:00 99.6 67 16 119/60 (79) 100 05/24/18 12:00 79 Height (Feet): 6 Height (Inches): 5.00 Weight (Pounds): 155 Objective Gen: NAD. Mumbling HEENT: NCAT, MMM, EOMI, No Oral lesion, no scleral icterus NECK: full range of motion, supple, no meningismus, No LAD, No JVD LUNGS: CTAB, No W/C, No Accessory muscle use CARDS: RRR, S1, S2, No M/R/G ABD: Soft, NT, ND, No R/G, + BS, No HSM, No Masses : Deferred Ext: C/C/E, Pulses 2+ B/L (DP, Rad) NEURO: A/O x 0, Strength and Sensation Grossly intact PSYCH: mood/affect normal SKIN: Left foot wound. No purulent drainage, Feet now bandaged Laboratory Tests Test 05/25/18 04:15 White Blood Count 13.5 K/UL (4.8-10.8) H Red Blood Count 3.16 M/UL (4.70-6.10) L Hemoglobin 9.1 G/DL (14.2-18.0) L Hematocrit 28.6 % (42.0-52.0) L Mean Corpuscular Volume 90 FL (80-99) Mean Corpuscular Hemoglobin 28.9 PG (27.0-31.0) Mean Corpuscular Hemoglobin Concent 31.9 G/DL (32.0-36.0) L Red Cell Distribution Width 13.1 % (11.6-14.8) Platelet Count 199 K/UL (150-450) Mean Platelet Volume 5.1 FL (6.5-10.1) L Neutrophils (%) (Auto) 76.0 % (45.0-75.0) H Lymphocytes (%) (Auto) 10.9 % (20.0-45.0) L Monocytes (%) (Auto) 12.5 % (1.0-10.0) H Eosinophils (%) (Auto) 0.2 % (0.0-3.0) Basophils (%) (Auto) 0.5 % (0.0-2.0) Sodium Level 139 MMOL/L (136-145) Potassium Level 3.6 MMOL/L (3.5-5.1) Chloride Level 108 MMOL/L (98-107) H Carbon Dioxide Level 27 MMOL/L (21-32) Anion Gap 4 mmol/L (5-15) L Blood Urea Nitrogen 11 mg/dL (7-18) Creatinine 0.7 MG/DL (0.55-1.30) Estimat Glomerular Filtration Rate > 60 mL/min (>60) Glucose Level 104 MG/DL (74-106) Calcium Level 7.4 MG/DL (8.5-10.1) L Phosphorus Level 2.4 MG/DL (2.5-4.9) L Magnesium Level 1.4 MG/DL (1.8-2.4) L Total Bilirubin 0.4 MG/DL (0.2-1.0) Aspartate Amino Transf (AST/SGOT) 28 U/L (15-37) Alanine Aminotransferase (ALT/SGPT) 14 U/L (12-78) Alkaline Phosphatase 115 U/L (46-116) Total Protein 5.6 G/DL (6.4-8.2) L Albumin 1.0 G/DL (3.4-5.0) L Globulin 4.6 g/dL Albumin/Globulin Ratio 0.2 (1.0-2.7) L Vancomycin Level Trough 20.5 ug/mL (5.0-12.0) H Current Medications Medications (Trade) Dose Ordered Sig/Erlin Route PRN Reason Start Time Stop Time Status Last Admin Dose Admin Acetaminophen (Tylenol) 650 mg Q4H PRN ORAL Mild Pain/Temp > 100.5 05/24/18 18:14 06/11/18 18:13 05/24/18 22:57 Al Hydroxide/Mg Hydroxide (Mylanta) 15 ml Q6H PRN ORAL DYSPEPSIA 05/24/18 18:16 06/22/18 18:15 Albuterol/ Ipratropium (Albuterol/ Ipratropium) 3 ml Q4H PRN HHN Shortness of Breath 05/24/18 18:14 05/28/18 18:13 Amiodarone HCl (Cordarone) 200 mg DAILY ORAL 05/25/18 09:00 06/17/18 08:59 05/25/18 08:56 Cefepime HCl 1 gm/ Dextrose 55 ml @ 110 mls/hr EVERY 12 HOURS IVPB 05/24/18 21:00 05/28/18 11:59 05/25/18 08:54 Chlorhexidine Gluconate (Yari-Hex 2%) 1 applic DAILY@2000 TOPIC 05/24/18 20:00 06/23/18 19:59 05/24/18 21:06 Digoxin (Lanoxin) 0.125 mg DAILY ORAL 05/25/18 09:00 06/12/18 08:59 05/25/18 08:56 Diphenhydramine HCl (Benadryl) 25 mg Q8H PRN ORAL Itching/Pruritis 05/24/18 18:14 06/22/18 18:13 Docusate Sodium (Colace) 100 mg TWICE A DAY ORAL 05/25/18 09:00 06/22/18 17:59 05/25/18 08:55 Enoxaparin Sodium (Lovenox) 80 mg EVERY 12 HOURS SUBQ 05/24/18 21:00 06/18/18 20:59 05/25/18 09:01 Gabapentin (Neurontin) 100 mg THREE TIMES A DAY ORAL 05/25/18 09:00 06/11/18 17:59 05/25/18 08:56 Hydromorphone HCl (Dilaudid) 0.5 mg Q3H PRN IVP Pain Score 1-3 05/24/18 18:15 05/30/18 18:14 Hydromorphone HCl (Dilaudid) 1 mg Q3H PRN IVP pain score 4-6 05/24/18 18:15 05/30/18 18:14 05/25/18 10:51 Hydromorphone HCl (Dilaudid) 2 mg Q3H PRN IVP pain score 7-10 05/24/18 18:15 05/30/18 18:14 Lorazepam (Ativan 2mg/ml 1ml) 1 mg Q4H PRN IV For Anxiety 05/24/18 18:15 05/30/18 18:14 Magnesium Hydroxide (Mom) 30 ml BIDPRN PRN ORAL Constipation 05/24/18 18:16 06/22/18 18:15 Metoprolol Tartrate (Lopressor) 50 mg Q12HR ORAL 05/24/18 21:00 06/11/18 20:59 05/25/18 08:56 Metronidazole (Flagyl) 500 mg Q8H ORAL 05/25/18 02:00 05/26/18 17:59 05/25/18 09:04 Ondansetron HCl (Zofran) 4 mg Q6H PRN IVP Nausea & Vomiting 05/24/18 18:16 06/22/18 18:15 Polyethylene Glycol (Miralax) 17 gm DAILY ORAL 05/25/18 09:00 06/16/18 10:59 05/25/18 08:55 Potassium Chloride 10 meq/ Dextrose/Sodium Chloride 1,005 ml @ 50 mls/hr Q20H6M IV 05/24/18 18:15 06/22/18 20:44 05/24/18 18:25 Quetiapine Fumarate (SEROquel) 100 mg BEDTIME ORAL 05/24/18 21:00 06/11/18 20:59 05/24/18 21:09 Sennosides (Senokot) 8.6 mg BIDPRN PRN ORAL Constipation 05/24/18 18:16 06/22/18 18:15 Temazepam (Restoril) 7.5 mg HSPRN PRN ORAL Insomnia 05/24/18 20:45 05/30/18 20:44 Vancomycin HCl (Vanco rx to dose) 1 ea DAILY PRN MISC Per rx protocol 05/25/18 09:00 06/22/18 20:44 Vancomycin HCl 1 gm/Dextrose 275 ml @ 183.708 mls/hr Q12H IVPB 05/25/18 17:00 05/30/18 16:59 Alma Elkins M.D. May 25, 2018 11:22
[2018-05-25 12:00] VITALS: BP 105/73
--- NOTE | 2018-05-25 12:26 | Pulmonology Progress Note ---
Assessment/Plan Problems: (1) Sepsis (2) Atrial fibrillation (3) Decubitus skin ulcer (4) Bipolar disorder (5) CAD (coronary artery disease) (6) HTN (hypertension) (7) CVA (cerebral vascular accident) Assessment/Plan awake, decrease NS cxr reviewed, increasing Left effusion iv abx wound care needs to have both legs amputated, family finally agreed f/u cultures monitor BP watch heart rate dvt prophylaxis symptomatic treatment Subjective ROS Limited/Unobtainable: No Constitutional: Reports: no symptoms HEENT: Repors: no symptoms Allergies: Coded Allergies: MILK (Verified Allergy, Unknown, 02/02/18) Objective Last 24 Hour Vital Signs Date Time Temp Pulse Resp B/P (MAP) Pulse Ox O2 Delivery O2 Flow Rate FiO2 05/25/18 09:00 Nasal Cannula 2.0 05/25/18 08:56 74 108/71 05/25/18 08:56 74 05/25/18 08:00 71 05/25/18 08:00 98.2 74 20 108/71 (83) 97 05/25/18 07:26 98 Nasal Cannula 2.0 28 05/25/18 07:26 84 18 Nasal Cannula 2.0 28 05/25/18 07:26 Nasal Cannula 2.0 28 05/25/18 04:00 97.7 71 20 140/61 (87) 99 05/25/18 03:15 67 05/25/18 00:03 99.1 58 22 97/52 (67) 99 05/24/18 23:27 99.1 05/24/18 23:19 84 05/24/18 21:10 94 134/68 05/24/18 21:00 Nasal Cannula 2.0 05/24/18 20:20 83 05/24/18 20:00 99.9 94 18 134/68 (90) 100 05/24/18 20:00 98 Nasal Cannula 2.0 28 05/24/18 20:00 90 20 Nasal Cannula 2.0 28 05/24/18 19:30 Nasal Cannula 2.0 28 05/24/18 17:00 98.6 86 18 106/61 (76) 100 73 05/24/18 16:00 73 05/24/18 16:00 Nasal Cannula 2.0 05/24/18 16:00 73 18 80/44 (56) 100 05/24/18 14:00 79 19 107/63 (78) 100 05/24/18 13:00 68 20 130/59 (82) 100 05/24/18 12:50 99.6 Intake and Output 05/24/18 05/25/18 19:00 07:00 Intake Total 876.334 ml 1111.667 ml Output Total 50 ml 400 ml Balance 826.334 ml 711.667 ml Intake Oral 8 ml IV Total 868.334 ml 1111.667 ml Output Urine Total 50 ml 400 ml General Appearance: WD/WN HEENT: normocephalic, atraumatic Respiratory/Chest: chest wall non-tender, lungs clear Cardiovascular: normal peripheral pulses, normal rate Abdomen: normal bowel sounds, soft, non tender Genitourinary: normal external genitalia Skin: no rash Microbiology Date/Time Source Procedure Growth Status 05/24/18 09:30 Sputum Induced Gram Stain - Final Resulted 05/24/18 09:30 Sputum Induced Sputum Culture Pending Resulted Laboratory Tests 05/25/18 04:15: White Blood Count 13.5H, Red Blood Count 3.16L, Hemoglobin 9.1L, Hematocrit 28.6L, Mean Corpuscular Volume 90, Mean Corpuscular Hemoglobin 28.9, Mean Corpuscular Hemoglobin Concent 31.9L, Red Cell Distribution Width 13.1, Platelet Count 199, Mean Platelet Volume 5.1L, Neutrophils (%) (Auto) 76.0H, Lymphocytes (%) (Auto) 10.9L, Monocytes (%) (Auto) 12.5H, Eosinophils (%) (Auto ) 0.2, Basophils (%) (Auto) 0.5, Sodium Level 139, Potassium Level 3.6, Chloride Level 108H, Carbon Dioxide Level 27, Anion Gap 4L, Blood Urea Nitrogen 11, Creatinine 0.7, Estimat Glomerular Filtration Rate > 60, Glucose Level 104, Calcium Level 7.4L, Phosphorus Level 2.4L, Magnesium Level 1.4L, Total Bilirubin 0.4, Aspartate Amino Transf (AST/SGOT) 28, Alanine Aminotransferase ( ALT/SGPT) 14, Alkaline Phosphatase 115, Total Protein 5.6L, Albumin 1.0L, Globulin 4.6, Albumin/Globulin Ratio 0.2L, Vancomycin Level Trough 20.5H Current Medications Medications (Trade) Dose Ordered Sig/Erlin Route PRN Reason Start Time Stop Time Status Last Admin Dose Admin Acetaminophen (Tylenol) 650 mg Q4H PRN ORAL Mild Pain/Temp > 100.5 05/24/18 18:14 06/11/18 18:13 05/24/18 22:57 Al Hydroxide/Mg Hydroxide (Mylanta) 15 ml Q6H PRN ORAL DYSPEPSIA 05/24/18 18:16 06/22/18 18:15 Albuterol/ Ipratropium (Albuterol/ Ipratropium) 3 ml Q4H PRN HHN Shortness of Breath 05/24/18 18:14 05/28/18 18:13 Amiodarone HCl (Cordarone) 200 mg DAILY ORAL 05/25/18 09:00 06/17/18 08:59 05/25/18 08:56 Cefepime HCl 1 gm/ Dextrose 55 ml @ 110 mls/hr EVERY 12 HOURS IVPB 05/24/18 21:00 05/28/18 11:59 05/25/18 08:54 Chlorhexidine Gluconate (Yari-Hex 2%) 1 applic DAILY@2000 TOPIC 05/24/18 20:00 06/23/18 19:59 05/24/18 21:06 Digoxin (Lanoxin) 0.125 mg DAILY ORAL 05/25/18 09:00 06/12/18 08:59 05/25/18 08:56 Diphenhydramine HCl (Benadryl) 25 mg Q8H PRN ORAL Itching/Pruritis 05/24/18 18:14 06/22/18 18:13 Docusate Sodium (Colace) 100 mg TWICE A DAY ORAL 05/25/18 09:00 06/22/18 17:59 05/25/18 08:55 Enoxaparin Sodium (Lovenox) 80 mg EVERY 12 HOURS SUBQ 05/24/18 21:00 06/18/18 20:59 05/25/18 09:01 Gabapentin (Neurontin) 100 mg THREE TIMES A DAY ORAL 05/25/18 09:00 06/11/18 17:59 05/25/18 08:56 Hydromorphone HCl (Dilaudid) 0.5 mg Q3H PRN IVP Pain Score 1-3 05/24/18 18:15 05/30/18 18:14 Hydromorphone HCl (Dilaudid) 1 mg Q3H PRN IVP pain score 4-6 05/24/18 18:15 05/30/18 18:14 05/25/18 10:51 Hydromorphone HCl (Dilaudid) 2 mg Q3H PRN IVP pain score 7-10 05/24/18 18:15 05/30/18 18:14 Lorazepam (Ativan 2mg/ml 1ml) 1 mg Q4H PRN IV For Anxiety 05/24/18 18:15 05/30/18 18:14 Magnesium Hydroxide (Mom) 30 ml BIDPRN PRN ORAL Constipation 05/24/18 18:16 06/22/18 18:15 Magnesium Sulfate 100 ml @ 100 mls/hr Q1H IVPB 05/25/18 12:30 05/25/18 14:29 UNV Metoprolol Tartrate (Lopressor) 50 mg Q12HR ORAL 05/24/18 21:00 06/11/18 20:59 05/25/18 08:56 Metronidazole (Flagyl) 500 mg Q8H ORAL 05/25/18 02:00 05/26/18 17:59 05/25/18 09:04 Ondansetron HCl (Zofran) 4 mg Q6H PRN IVP Nausea & Vomiting 05/24/18 18:16 06/22/18 18:15 Polyethylene Glycol (Miralax) 17 gm DAILY ORAL 05/25/18 09:00 06/16/18 10:59 05/25/18 08:55 Potassium Chloride 10 meq/ Dextrose/Sodium Chloride 1,005 ml @ 50 mls/hr Q20H6M IV 05/24/18 18:15 06/22/18 20:44 05/24/18 18:25 Quetiapine Fumarate (SEROquel) 100 mg BEDTIME ORAL 05/24/18 21:00 06/11/18 20:59 05/24/18 21:09 Sennosides (Senokot) 8.6 mg BIDPRN PRN ORAL Constipation 05/24/18 18:16 06/22/18 18:15 Temazepam (Restoril) 7.5 mg HSPRN PRN ORAL Insomnia 05/24/18 20:45 05/30/18 20:44 Vancomycin HCl (Vanco rx to dose) 1 ea DAILY PRN MISC Per rx protocol 05/25/18 09:00 06/22/18 20:44 Vancomycin HCl 1 gm/Dextrose 275 ml @ 183.708 mls/hr Q12H IVPB 05/25/18 17:00 05/30/18 16:59 Minerva Montesinos MD May 25, 2018 12:26
--- NOTE | 2018-05-25 13:34 | General Progress Note ---
Progress Note Progress Note Surgery: downgraded. doing okay. labs noted. leukocytosis. alert asking for pain medication. no n/v/f/c. lower extremities warm, no bleeding, wound clean and intact. overall recovering but prognosis guarded. -will remove dressings tomorrow -Abx as per ID -cont current care/management will follow with recs. Goyo Osuna May 25, 2018 13:34
--- NOTE | 2018-05-25 14:12 | Diagnostic Imaging Report ---
Indication: Cough, shortness of breath Technique: One view of the chest Comparison: 05/23/2018 Findings: Suboptimal inspiration, with crowding of bronchovascular markings. There may be faint interstitial and airspace opacities in the right lung now present. Previously demonstrated right upper lung nodule is visible but less apparent than on the prior exam. There is a moderate to large left-sided pleural effusion now present. Left arm PICC remains. Impression: Evidence of recurrent left pleural effusion Hypoventilatory exam. Possible developing interstitial and airspace parenchymal opacities in the right mid upper lung
[2018-05-25] MEDS: Potassium Chloride 10 MEQ in D5 1/2NS 1,000 ML IV SCH (14:47)
[2018-05-25 15:21] LABS: APPEARANCE,URINE VERY CLOUDY; BILIRUBIN, URINE NEGATIVE (NEGATIVE); GLUCOSE, URINE (UA) NEGATIVE (NEGATIVE); KETONES,URINE NEGATIVE (NEGATIVE); LEUKOCYTE ESTERASE ,URINE 2+ (NEGATIVE); NITRITE,URINE POSITIVE (NEGATIVE); PH,URINE 5 (4.5-8.0); PROTEIN,URINE 2+ (NEGATIVE); UROBILINOGEN,URINE NORMAL MG/DL (0.0-1.0)
[2018-05-25 15:22] LABS: COLOR,URINE YELLOW
[2018-05-25 16:00] VITALS: BP 126/74
[2018-05-25] MEDS: Vancomycin 1gm in D5W 275ml IVPB SCH (17:00)
--- NOTE | 2018-05-25 19:39 | Internal Med Progress Note ---
Subjective Date of Service: May 25, 2018 Physician Name Daniel Jackson Attending Physician Pedro Caban MD Current Medications Medications (Trade) Dose Ordered Sig/Erlin Route PRN Reason Start Time Stop Time Status Last Admin Dose Admin Acetaminophen (Tylenol) 650 mg Q4H PRN ORAL Mild Pain/Temp > 100.5 05/24/18 18:14 06/11/18 18:13 05/24/18 22:57 Al Hydroxide/Mg Hydroxide (Mylanta) 15 ml Q6H PRN ORAL DYSPEPSIA 05/24/18 18:16 06/22/18 18:15 Albuterol/ Ipratropium (Albuterol/ Ipratropium) 3 ml Q4H PRN HHN Shortness of Breath 05/24/18 18:14 05/28/18 18:13 Amiodarone HCl (Cordarone) 200 mg DAILY ORAL 05/25/18 09:00 06/17/18 08:59 05/25/18 08:56 Cefepime HCl 1 gm/ Dextrose 55 ml @ 110 mls/hr EVERY 12 HOURS IVPB 05/24/18 21:00 05/28/18 11:59 05/25/18 08:54 Chlorhexidine Gluconate (Yari-Hex 2%) 1 applic DAILY@2000 TOPIC 05/24/18 20:00 06/23/18 19:59 05/24/18 21:06 Digoxin (Lanoxin) 0.125 mg DAILY ORAL 05/25/18 09:00 06/12/18 08:59 05/25/18 08:56 Diphenhydramine HCl (Benadryl) 25 mg Q8H PRN ORAL Itching/Pruritis 05/24/18 18:14 06/22/18 18:13 Docusate Sodium (Colace) 100 mg TWICE A DAY ORAL 05/25/18 09:00 06/22/18 17:59 05/25/18 17:03 Enoxaparin Sodium (Lovenox) 80 mg EVERY 12 HOURS SUBQ 05/24/18 21:00 06/18/18 20:59 05/25/18 09:01 Gabapentin (Neurontin) 100 mg THREE TIMES A DAY ORAL 05/25/18 09:00 06/11/18 17:59 05/25/18 17:03 Hydromorphone HCl (Dilaudid) 0.5 mg Q3H PRN IVP Pain Score 1-3 05/24/18 18:15 05/30/18 18:14 Hydromorphone HCl (Dilaudid) 1 mg Q3H PRN IVP pain score 4-6 05/24/18 18:15 05/30/18 18:14 05/25/18 17:04 Hydromorphone HCl (Dilaudid) 2 mg Q3H PRN IVP pain score 7-10 05/24/18 18:15 05/30/18 18:14 Lorazepam (Ativan 2mg/ml 1ml) 1 mg Q4H PRN IV For Anxiety 05/24/18 18:15 05/30/18 18:14 Magnesium Hydroxide (Mom) 30 ml BIDPRN PRN ORAL Constipation 05/24/18 18:16 06/22/18 18:15 Metoprolol Tartrate (Lopressor) 50 mg Q12HR ORAL 05/24/18 21:00 06/11/18 20:59 05/25/18 08:56 Metronidazole (Flagyl) 500 mg Q8H ORAL 05/25/18 02:00 05/26/18 17:59 05/25/18 17:03 Ondansetron HCl (Zofran) 4 mg Q6H PRN IVP Nausea & Vomiting 05/24/18 18:16 06/22/18 18:15 Polyethylene Glycol (Miralax) 17 gm DAILY ORAL 05/25/18 09:00 06/16/18 10:59 05/25/18 08:55 Potassium Chloride 10 meq/ Dextrose/Sodium Chloride 1,005 ml @ 50 mls/hr Q20H6M IV 05/24/18 18:15 06/22/18 20:44 05/25/18 14:47 Quetiapine Fumarate (SEROquel) 100 mg BEDTIME ORAL 05/24/18 21:00 06/11/18 20:59 05/24/18 21:09 Sennosides (Senokot) 8.6 mg BIDPRN PRN ORAL Constipation 05/24/18 18:16 06/22/18 18:15 Temazepam (Restoril) 7.5 mg HSPRN PRN ORAL Insomnia 05/24/18 20:45 05/30/18 20:44 Vancomycin HCl (Vanco rx to dose) 1 ea DAILY PRN MISC Per rx protocol 05/25/18 09:00 06/22/18 20:44 Vancomycin HCl 1 gm/Dextrose 275 ml @ 183.708 mls/hr Q12H IVPB 05/25/18 17:00 05/30/18 16:59 05/25/18 17:00 Allergies: Coded Allergies: MILK (Verified Allergy, Unknown, 02/02/18) ROS Limited/Unobtainable: No Constitutional: Reports: no symptoms HEENT: Reports: no symptoms Cardiovascular: Reports: no symptoms Respiratory: Reports: no symptoms Gastrointestinal/Abdominal: Reports: no symptoms Genitourinary: Reports: no symptoms 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: Reports: no symptoms Subjective 68 YO A M admitted with altered mental status. Now sepsis and atrial fibrillation with rapid rate. Cover for Int Med-Dr Caban. ICU. 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 Objective Last Vital Signs Date Time Temp Pulse Resp B/P (MAP) Pulse Ox O2 Delivery O2 Flow Rate FiO2 05/25/18 16:00 71 05/25/18 16:00 99.0 20 126/74 (91) 98 05/25/18 09:00 Nasal Cannula 2.0 05/25/18 07:26 28 Laboratory Tests Test 05/25/18 04:15 05/25/18 14:26 White Blood Count 13.5 K/UL (4.8-10.8) H Red Blood Count 3.16 M/UL (4.70-6.10) L Hemoglobin 9.1 G/DL (14.2-18.0) L Hematocrit 28.6 % (42.0-52.0) L Mean Corpuscular Volume 90 FL (80-99) Mean Corpuscular Hemoglobin 28.9 PG (27.0-31.0) Mean Corpuscular Hemoglobin Concent 31.9 G/DL (32.0-36.0) L Red Cell Distribution Width 13.1 % (11.6-14.8) Platelet Count 199 K/UL (150-450) Mean Platelet Volume 5.1 FL (6.5-10.1) L Neutrophils (%) (Auto) 76.0 % (45.0-75.0) H Lymphocytes (%) (Auto) 10.9 % (20.0-45.0) L Monocytes (%) (Auto) 12.5 % (1.0-10.0) H Eosinophils (%) (Auto) 0.2 % (0.0-3.0) Basophils (%) (Auto) 0.5 % (0.0-2.0) Sodium Level 139 MMOL/L (136-145) Potassium Level 3.6 MMOL/L (3.5-5.1) Chloride Level 108 MMOL/L (98-107) H Carbon Dioxide Level 27 MMOL/L (21-32) Anion Gap 4 mmol/L (5-15) L Blood Urea Nitrogen 11 mg/dL (7-18) Creatinine 0.7 MG/DL (0.55-1.30) Estimat Glomerular Filtration Rate > 60 mL/min (>60) Glucose Level 104 MG/DL (74-106) Calcium Level 7.4 MG/DL (8.5-10.1) L Phosphorus Level 2.4 MG/DL (2.5-4.9) L Magnesium Level 1.4 MG/DL (1.8-2.4) L Total Bilirubin 0.4 MG/DL (0.2-1.0) Aspartate Amino Transf (AST/SGOT) 28 U/L (15-37) Alanine Aminotransferase (ALT/SGPT) 14 U/L (12-78) Alkaline Phosphatase 115 U/L (46-116) Total Protein 5.6 G/DL (6.4-8.2) L Albumin 1.0 G/DL (3.4-5.0) L Globulin 4.6 g/dL Albumin/Globulin Ratio 0.2 (1.0-2.7) L Vancomycin Level Trough 20.5 ug/mL (5.0-12.0) H Urine Color Yellow Urine Appearance Very cloudy Urine pH 5 (4.5-8.0) Urine Specific [place] 1.020 (1.005-1.035) Urine Protein 2+ (NEGATIVE) H Urine Glucose (UA) Negative (NEGATIVE) Urine Ketones Negative (NEGATIVE) Urine Blood 1+ (NEGATIVE) H Urine Nitrite Positive (NEGATIVE) H Urine Bilirubin Negative (NEGATIVE) Urine Urobilinogen Normal MG/DL (0.0-1.0) Urine Leukocyte Esterase 2+ (NEGATIVE) H Urine RBC 2-4 /HPF (0 - 0) H Urine WBC 10-15 /HPF (0 - 0) H Urine Squamous Epithelial Cells Few /LPF (NONE/OCC) Urine Amorphous Sediment Many /LPF (NONE) H Urine Bacteria Many /HPF (NONE) H Urine Yeast Few /HPF (NONE) H Microbiology Date/Time Source Procedure Growth Status 05/24/18 09:30 Sputum Induced Gram Stain - Final Resulted 05/24/18 09:30 Sputum Induced Sputum Culture Pending Resulted 05/23/18 10:30 Sputum AFB Specimen Processing Tissue - Final Resulted 05/23/18 10:30 Sputum Acid Fast Bacilli Smear - Final Resulted 05/23/18 10:30 Sputum Acid Fast Bacilli Culture Pending Resulted Intake and Output 05/24/18 05/25/18 19:00 07:00 Intake Total 876.334 ml 1111.667 ml Output Total 50 ml 400 ml Balance 826.334 ml 711.667 ml Intake Oral 8 ml IV Total 868.334 ml 1111.667 ml Output Urine Total 50 ml 400 ml Objective General Appearance: alert, thin, agitated EENT: PERRL/EOMI, normal ENT inspection Neck: non-tender, normal alignment, supple, normal inspection Cardiovascular: normal peripheral pulses, normal rate, no gallop/murmur, no JVD , irregularly irregular Respiratory/Chest: chest wall non-tender, lungs clear, normal breath sounds, no respiratory distress, no accessory muscle use Abdomen: normal bowel sounds, non tender, soft, no organomegaly, no mass Extremities: normal range of motion, non-tender 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 (8) Sepsis Assessment & Plan: Continue cefepime and vanco per ID (9) UTI (urinary tract infection) Assessment & Plan: Mixed culture-continue vanco and cefepime per ID (10) Leukocytosis (11) Deep venous thrombosis of right femoral vein Assessment & Plan: D/C eliquis. Start lovenox SQ; D/C lovenox on Tuesday prior to surgery (12) Gangrene Assessment & Plan: S/P above the knee amputation Bilat lower ext 05/23/18 Status: progressing Daniel Jackson MD May 25, 2018 19:39
[2018-05-25 20:00] VITALS: BP 126/74
--- NOTE | 2018-05-25 20:14 | Cardiology Report ---
APPROVED REPORT EKG Measurement Heart [id number] [id number] Atrial flutter with variable AV block Marked ST abnormality, possible inferior subendocardial injury Abnormal ECG
[2018-05-25] MEDS: Dyna-Hex 2% Top Sol 2oz TOPIC SCH (21:50)
--- NOTE | 2018-05-25 22:39 | General Progress Note ---
Assessment/Plan Problem List: (1) Bipolar disorder ICD Codes: F31.9 - Bipolar disorder, unspecified SNOMED: 85855027 (2) encephalopathy Status: stable, progressing Assessment/Plan dc abilify start seroquel the pt lacks capacity to make decisions Subjective 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: Reports: anxiety, depressed Allergies: Coded Allergies: MILK (Verified Allergy, Unknown, 02/02/18) Subjective the pt mental condition is improved and he is less confused. Objective Last 24 Hour Vital Signs Date Time Temp Pulse Resp B/P (MAP) Pulse Ox O2 Delivery O2 Flow Rate FiO2 05/25/18 21:51 76 126/74 05/25/18 16:00 71 05/25/18 16:00 99.0 72 20 126/74 (91) 98 05/25/18 12:00 60 05/25/18 12:00 99.1 59 20 105/73 (84) 100 05/25/18 09:00 Nasal Cannula 2.0 05/25/18 08:56 74 108/71 05/25/18 08:56 74 05/25/18 08:00 71 05/25/18 08:00 98.2 74 20 108/71 (83) 97 05/25/18 07:26 98 Nasal Cannula 2.0 28 05/25/18 07:26 84 18 Nasal Cannula 2.0 28 05/25/18 07:26 Nasal Cannula 2.0 28 05/25/18 04:00 97.7 71 20 140/61 (87) 99 05/25/18 03:15 67 05/25/18 00:03 99.1 58 22 97/52 (67) 99 05/24/18 23:27 99.1 05/24/18 23:19 84 Intake and Output 05/24/18 05/25/18 19:00 07:00 Intake Total 876.334 ml 1111.667 ml Output Total 50 ml 400 ml Balance 826.334 ml 711.667 ml Intake Oral 8 ml IV Total 868.334 ml 1111.667 ml Output Urine Total 50 ml 400 ml Laboratory Tests 05/25/18 04:15: White Blood Count 13.5H, Red Blood Count 3.16L, Hemoglobin 9.1L, Hematocrit 28.6L, Mean Corpuscular Volume 90, Mean Corpuscular Hemoglobin 28.9, Mean Corpuscular Hemoglobin Concent 31.9L, Red Cell Distribution Width 13.1, Platelet Count 199, Mean Platelet Volume 5.1L, Neutrophils (%) (Auto) 76.0H, Lymphocytes (%) (Auto) 10.9L, Monocytes (%) (Auto) 12.5H, Eosinophils (%) (Auto ) 0.2, Basophils (%) (Auto) 0.5, Sodium Level 139, Potassium Level 3.6, Chloride Level 108H, Carbon Dioxide Level 27, Anion Gap 4L, Blood Urea Nitrogen 11, Creatinine 0.7, Estimat Glomerular Filtration Rate > 60, Glucose Level 104, Calcium Level 7.4L, Phosphorus Level 2.4L, Magnesium Level 1.4L, Total Bilirubin 0.4, Aspartate Amino Transf (AST/SGOT) 28, Alanine Aminotransferase ( ALT/SGPT) 14, Alkaline Phosphatase 115, Total Protein 5.6L, Albumin 1.0L, Globulin 4.6, Albumin/Globulin Ratio 0.2L, Vancomycin Level Trough 20.5H 05/25/18 14:26: Urine Color Yellow, Urine Appearance Very cloudy, Urine pH 5, Urine Specific [place] 1.020, Urine Protein 2+H, Urine Glucose (UA) Negative, Urine Ketones Negative, Urine Blood 1+H, Urine Nitrite PositiveH, Urine Bilirubin Negative, Urine Urobilinogen Normal, Urine Leukocyte Esterase 2+H, Urine RBC 2-4H, Urine WBC 10-15H, Urine Squamous Epithelial Cells Few, Urine Amorphous Sediment ManyH , Urine Bacteria ManyH, Urine Yeast FewH Height (Feet): 6 Height (Inches): 5.00 Weight (Pounds): 155 General Appearance: no apparent distress, alert, agitated MIPS Medication Reconciliation Is this a Psycho/Diag encounte: No Unhealthy Alcohol Use 431 (psycho/diag only) Patient was screened for unhealthy alcohol use today or within the past 2 years. Patient was NOT identified as an unhealthy alcohol user. Tobacco Use 226 (psycho/diag only) Patient was screened for tobacco use today or within the past 2 years. Patient was NOT identified as a tobacco user. BMI 128 (psycho/diag only) BMI was documented today or within the past year. BMI was within normal parameters. Depression 134,411,370 (psycho/diag only) Depression screening was performed in the past 6 months. Does this Patient have Dementi: Yes Safety Screening-Dementia 286 (psycho/diag only) Caregiver education and counseling was performed at another time in the past 12 months. Caregiver Health-Dementia 288 (psycho/diag only) Safety screening performed today-negative. Julissa Still MD May 25, 2018 22:39
--- NOTE | 2018-05-25 23:30 | Operative Note - Dictated ---
DATE OF OPERATION: 05/23/2018 PREOPERATIVE DIAGNOSES: 1. Infection and gangrene of bilateral lower extremities. 2. Sepsis. 3. Wet gangrene RLE. 4. Bilateral lower extremity ischemia. POSTOPERATIVE DIAGNOSES: 1. Infection and gangrene of bilateral lower extremities. 2. Sepsis. 3. Wet gangrene RLE. 4. Bilateral lower extremity ischemia. PROCEDURES PERFORMED: 1. Right lzlpt-rrp-elmi amputation. 2. Left dulzp-jgu-vrpg amputation. ATTENDING SURGEON: Goyo Osuna M.D. SHIRT MAKER: None. ANESTHESIOLOGIST: Flower Jara CRNA ANESTHESIA: General SALESPERSON TRAILERS AND MOTOR HOMES. ESTIMATED BLOOD LOSS: 75 mL. IV FLUIDS: Please see anesthesia records. COMPLICATIONS: None. DRAINS: None. IMPLANTS: None. SPECIMENS: Right mkqit-pjs-[id number] amputation and left jbula-gyx-vnab amputation, extremities. WOUND CLASSIFICATION: Class III. COUNTS: Sponge and needle count correct x2. ANTIBIOTICS: The patient on scheduled IV antibiotics for acute active inflammatory process. INDICATIONS FOR PROCEDURE: Patient is well known to me from prior admissions for bilateral lower extremity infections and wounds. The patient recently returns in septic shock requiring a progressively escalating care including ICU care for septic shock/sepsis. The patient was identified to have etiology and source as being the lower extremities with wet gangrene of the right lower extremity and symptomatic ischemic left lower extremity. The right lower extremity had multiple large wounds with a significant prior chronic history and pus with foul smell being identified. Along with ischemia and gangrene, the left lower extremity had ischemic gangrene, which was symptomatic and with a long chronic history of issues. The patient was seen by Podiatry Service as well as Vascular Service and multidisciplinary team recommended bilateral vbpds-oya-xsic amputations given history, current condition, and chronic condition including contractures of both knees. The patient in the past had refused amputation when recommended and currently during initial hospitalization was unable to consent. Therefore, family was contacted and case was discussed in detail with the family. The patient's family including sisters, daughters, and had all evaluated all the findings, had a family meeting, discussion, and expressed desire for the patient in this condition to have bilateral above-knee amputation. Fortunately with great medical care, the patient did begin to slightly improve though continued to have active infectious process, but was more cognizant and after discussing these findings with him, he had agreed that "it is about time." He proceeds with recommended amputation. The patient's daughter who is next of kin and decided by family and him to be the next of kin had flown in from her hometown to see her father and a long discussion with evaluations out at the bedside with her, identifying the wounds, the patient's condition, the patient's care, and discussion between the patient's family, myself, and multidisciplinary team about condition and care. Bioethics were also consulted, which provided the patient and agreed that the best course of action would be bilateral tfplh-dpz-zsom amputations. All possible interventions including non-operating and medical management versus single limb amputation versus bilateral limb amputation versus above and below-knee amputation were discussed with the patient, family, and teams in detail. After all this, recommendation was for bilateral above-knee amputation, which the patient's family and multidisciplinary team including Bioethics had agreed upon and consent was obtained. OPERATIVE NOTE: The patient was taken to the operating room and placed on the operating table in supine position with bilateral arms out. All bony prominences were well padded. Preoperative time-out was taken identifying the patient, procedure, operative staff, and surgical staff. The patient was already on scheduled IV antibiotics for acute active inflammatory process. A Valladares catheter was not inserted as this patient already had a condom catheter in place. Bilateral lower extremities were prepped and draped in standard surgical fashion. In preparing for the hypou-pzm-kjlj amputation preoperatively, arterial and venous studies were done for the patient, and appropriate level of amputation was described and positioned preoperatively. A fishmouth incision for both amputations were proposed and curved incisions were made just above the knee both anteriorly and posteriorly. These incisions had a meeting at the medial and lateral edges for a fishmouth flap. This was performed with a fresh #10 scalpel for each side. The subcutaneous tissue and fascia were incised with electrocautery. The saphenous vein was identified and ligated with a 2-0 silk tie bilaterally. Then, the quadriceps muscle was transected with electrocautery. The femoral vessels were identified and were dissected out, , ligated, and divided using #0 silk ties. The femoral artery and vein were individually clamped and transected and proximal ends divided with the silk ties. Following this, the remainder of the muscles were transected and the sciatic nerve was identified and high ligation was performed using a #0 Vicryl tie. There was allowed to retract afterwards. Once this was cleared circumferentially and periosteal elevator used to dissect proximal transection could be identified. Using electric saw, the femur was transected bilaterally. A long knife was then used to transect the remaining posterior muscle, tendon, and fascia until the extremity on both the right and left side could be transected and sent to pathology for review. Following this, hemostasis was identified and obtained using electrocautery. Both stumps were washed with copious amounts of warm normal saline. Again, hemostasis was checked and obtained using electrocautery and a 2-0 silk ties as necessary. Following this, the flaps were brought together and minimal dissection was necessary for adequate tension-free flap closure. The muscles and fascia were then closed between the anterior and posterior compartments using interrupted #0 Vicryl sutures. The wound was then cleansed and subcutaneous tissue was reapproximated using 2-0 Vicryl sutures followed by closure of the skin with surgical skin chaitanya. A similar procedure was performed on both the right and left side independently beginning with the right and the left. Once this was completed, sterile dressings were applied. The patient tolerated the procedure well, was then transferred to the intensive care unit for the remainder of his care. Goyo Osuna M.D. DR: ANDRIY JOB#: [id number] CC: GEORGETTE
[2018-05-26] VITALS: BP 129/83
[2018-05-26] MEDS: metroNIDAZOLE 500mg tab ORAL SCH ×3 (02:23→17:13)
[2018-05-26] MEDS: HYDROmorphone 1mg/ml Carpuject IVP PRN ×2 (02:34→07:00)
[2018-05-26 04:00] VITALS: BP 100/81
[2018-05-26] MEDS: Vancomycin 1gm in D5W 275ml IVPB SCH (05:34)
[2018-05-26 07:32] LABS: BASOPHILS % (AUTO) 0.5 % (0.0-2.0); EOSINOPHILS % (AUTO) 0.6 % (0.0-3.0); HEMATOCRIT 29.2 % (42.0-52.0); HEMOGLOBIN 9.6 G/DL (14.2-18.0); LYMPHOCYTES % (AUTO) 13.6 % (20.0-45.0); MEAN CORPUSCULAR VOLUME 90 FL (80-99); MONOCYTES % (AUTO) 9.5 % (1.0-10.0); NEUTROPHILS % (AUTO) 75.8 % (45.0-75.0); PLATELET COUNT 203 K/UL (150-450); RED BLOOD COUNT 3.25 M/UL (4.70-6.10); RED CELL DISTRIBUTION WIDTH 13.3 % (11.6-14.8); WHITE BLOOD COUNT 13.1 K/UL (4.8-10.8)
[2018-05-26 07:47] LABS: ALANINE AMINOTRANSFERASE 12 U/L (12-78); ALBUMIN/GLOBULIN RATIO 0.2 (1.0-2.7); ALKALINE PHOSPHATASE 116 U/L (46-116); ANION GAP 4 mmol/L (5-15); ASPARTATE AMINO TRANSFERASE 21 U/L (15-37); BILIRUBIN,TOTAL 0.5 MG/DL (0.2-1.0); BLOOD UREA NITROGEN 11 mg/dL (7-18); CALCIUM 7.4 MG/DL (8.5-10.1); CARBON DIOXIDE 25 MMOL/L (21-32); CHLORIDE 104 MMOL/L (98-107); CREATININE 0.7 MG/DL (0.55-1.30); POTASSIUM 3.5 MMOL/L (3.5-5.1); SODIUM 133 MMOL/L (136-145)
[2018-05-26 07:50] LABS: INR 1.2 (0.9-1.1)
[2018-05-26 08:00] VITALS: BP 140/81
[2018-05-26] MEDS: Miralax 17gm pkt ORAL SCH (09:56)
[2018-05-26] MEDS: Amiodarone 200mg tab ORAL SCH (09:57)
[2018-05-26] MEDS: Docusate 100mg cap ORAL SCH ×2 (09:57→17:12)
[2018-05-26] MEDS: Cefepime HCl 1 GM in D5W 55 ML IVPB SCH ×2 (09:57→20:49)
[2018-05-26] MEDS: Digoxin 0.125mg tab ORAL SCH (09:58)
[2018-05-26] MEDS: Metoprolol Tartrate 50mg tab ORAL SCH ×2 (09:58→20:49)
[2018-05-26] MEDS: Enoxaparin 80mg Inj SUBQ SCH ×2 (09:59→20:53)
[2018-05-26] MEDS: Potassium Chloride 10 MEQ in D5 1/2NS 1,000 ML IV SCH ×2 (11:23→16:49)
--- NOTE | 2018-05-26 11:25 | Pulmonology Progress Note ---
Assessment/Plan Problems: (1) Sepsis (2) Atrial fibrillation (3) Decubitus skin ulcer (4) Bipolar disorder (5) CAD (coronary artery disease) (6) HTN (hypertension) (7) CVA (cerebral vascular accident) Assessment/Plan wbx still high, ? etiology cxr reviewed, increasing Left effusion iv abx wound care f/u cultures monitor BP watch heart rate dvt prophylaxis symptomatic treatment med/surg if ok with cardio Subjective ROS Limited/Unobtainable: No Constitutional: Reports: no symptoms HEENT: Repors: no symptoms Allergies: Coded Allergies: MILK (Verified Allergy, Unknown, 02/02/18) Objective Last 24 Hour Vital Signs Date Time Temp Pulse Resp B/P (MAP) Pulse Ox O2 Delivery O2 Flow Rate FiO2 05/26/18 09:58 89 140/81 05/26/18 09:58 89 05/26/18 09:20 Nasal Cannula 2.0 28 05/26/18 09:20 89 20 Nasal Cannula 2.0 28 05/26/18 09:20 98 Nasal Cannula 2.0 28 05/26/18 08:20 Nasal Cannula 2.0 05/26/18 08:00 98.2 91 24 140/81 (100) 98 05/26/18 07:42 88 05/26/18 04:00 98.2 75 22 100/81 (87) 100 05/26/18 04:00 67 05/26/18 00:00 60 05/26/18 00:00 98.2 65 22 129/83 (98) 99 05/25/18 21:51 76 126/74 05/25/18 21:00 Nasal Cannula 2.0 05/25/18 20:00 100.0 76 22 126/74 (91) 96 05/25/18 20:00 84 05/25/18 19:50 Nasal Cannula 2.0 28 05/25/18 19:50 72 18 Nasal Cannula 2.0 28 05/25/18 19:50 98 Nasal Cannula 2.0 28 05/25/18 16:00 71 05/25/18 16:00 99.0 72 20 126/74 (91) 98 05/25/18 12:00 60 05/25/18 12:00 99.1 59 20 105/73 (84) 100 Intake and Output 05/25/18 05/26/18 18:59 06:59 Intake Total 410 ml 110 ml Output Total 200 ml 350 ml Balance 210 ml -240 ml Intake Oral 360 ml 110 ml IV Total 50 ml Output Urine Total 200 ml 350 ml General Appearance: WD/WN HEENT: normocephalic, anicteric Respiratory/Chest: chest wall non-tender, normal breath sounds Cardiovascular: no gallop/murmur Abdomen: no organomegaly Skin: no rash Microbiology Date/Time Source Procedure Growth Status 05/24/18 09:30 Sputum Induced Gram Stain - Final Complete 05/24/18 09:30 Sputum Culture - Final Apple Albicans Usual Respiratory Nicky Complete 05/25/18 14:26 Urine,Clean Catch Urine Culture - Preliminary Resulted Laboratory Tests 05/25/18 14:26: Urine Color Yellow, Urine Appearance Very cloudy, Urine pH 5, Urine Specific [place] 1.020, Urine Protein 2+H, Urine Glucose (UA) Negative, Urine Ketones Negative, Urine Blood 1+H, Urine Nitrite PositiveH, Urine Bilirubin Negative, Urine Urobilinogen Normal, Urine Leukocyte Esterase 2+H, Urine RBC 2-4H, Urine WBC 10-15H, Urine Squamous Epithelial Cells Few, Urine Amorphous Sediment ManyH , Urine Bacteria ManyH, Urine Yeast FewH 05/26/18 06:03: White Blood Count 13.1H, Red Blood Count 3.25L, Hemoglobin 9.6L, Hematocrit 29.2L, Mean Corpuscular Volume 90, Mean Corpuscular Hemoglobin 29.4, Mean Corpuscular Hemoglobin Concent 32.7, Red Cell Distribution Width 13.3, Platelet Count 203, Mean Platelet Volume 5.0L, Neutrophils (%) (Auto) 75.8H, Lymphocytes (%) (Auto) 13.6L, Monocytes (%) (Auto) 9.5, Eosinophils (%) (Auto) 0.6, Basophils (%) (Auto) 0.5, Prothrombin Time 12.4H, Prothromb Time International Ratio 1.2H, Activated Partial Thromboplast Time 40H, Sodium Level 133L, Potassium Level 3.5, Chloride Level 104, Carbon Dioxide Level 25, Anion Gap 4L, Blood Urea Nitrogen 11, Creatinine 0.7, Estimat Glomerular Filtration Rate > 60 , Glucose Level 235#H, Calcium Level 7.4L, Total Bilirubin 0.5, Aspartate Amino Transf (AST/SGOT) 21, Alanine Aminotransferase (ALT/SGPT) 12, Alkaline Phosphatase 116, Total Protein 6.0L, Albumin 1.0L, Globulin 5.0, Albumin/ Globulin Ratio 0.2L Current Medications Medications (Trade) Dose Ordered Sig/Erlin Route PRN Reason Start Time Stop Time Status Last Admin Dose Admin Acetaminophen (Tylenol) 650 mg Q4H PRN ORAL Mild Pain/Temp > 100.5 05/24/18 18:14 06/11/18 18:13 05/24/18 22:57 Al Hydroxide/Mg Hydroxide (Mylanta) 15 ml Q6H PRN ORAL DYSPEPSIA 05/24/18 18:16 06/22/18 18:15 Albuterol/ Ipratropium (Albuterol/ Ipratropium) 3 ml Q4H PRN HHN Shortness of Breath 05/24/18 18:14 05/28/18 18:13 Amiodarone HCl (Cordarone) 200 mg DAILY ORAL 05/25/18 09:00 06/17/18 08:59 05/26/18 09:57 Cefepime HCl 1 gm/ Dextrose 55 ml @ 110 mls/hr EVERY 12 HOURS IVPB 05/24/18 21:00 05/28/18 11:59 05/26/18 09:57 Chlorhexidine Gluconate (Yari-Hex 2%) 1 applic DAILY@2000 TOPIC 05/24/18 20:00 06/23/18 19:59 05/25/18 21:50 Digoxin (Lanoxin) 0.125 mg DAILY ORAL 05/25/18 09:00 06/12/18 08:59 05/26/18 09:58 Diphenhydramine HCl (Benadryl) 25 mg Q8H PRN ORAL Itching/Pruritis 05/24/18 18:14 06/22/18 18:13 Docusate Sodium (Colace) 100 mg TWICE A DAY ORAL 05/25/18 09:00 06/22/18 17:59 05/26/18 09:57 Enoxaparin Sodium (Lovenox) 80 mg EVERY 12 HOURS SUBQ 05/24/18 21:00 06/18/18 20:59 05/26/18 09:59 Gabapentin (Neurontin) 100 mg THREE TIMES A DAY ORAL 05/25/18 09:00 06/11/18 17:59 05/26/18 09:57 Hydromorphone HCl (Dilaudid) 0.5 mg Q3H PRN IVP Pain Score 1-3 05/24/18 18:15 05/30/18 18:14 Hydromorphone HCl (Dilaudid) 1 mg Q3H PRN IVP pain score 4-6 05/24/18 18:15 05/30/18 18:14 05/26/18 07:00 Hydromorphone HCl (Dilaudid) 2 mg Q3H PRN IVP pain score 7-10 05/24/18 18:15 05/30/18 18:14 Lorazepam (Ativan 2mg/ml 1ml) 1 mg Q4H PRN IV For Anxiety 05/24/18 18:15 05/30/18 18:14 Magnesium Hydroxide (Mom) 30 ml BIDPRN PRN ORAL Constipation 05/24/18 18:16 06/22/18 18:15 Metoprolol Tartrate (Lopressor) 50 mg Q12HR ORAL 05/24/18 21:00 06/11/18 20:59 05/26/18 09:58 Metronidazole (Flagyl) 500 mg Q8H ORAL 05/25/18 02:00 05/31/18 01:59 05/26/18 09:57 Ondansetron HCl (Zofran) 4 mg Q6H PRN IVP Nausea & Vomiting 05/24/18 18:16 06/22/18 18:15 Polyethylene Glycol (Miralax) 17 gm DAILY ORAL 05/25/18 09:00 06/16/18 10:59 05/26/18 09:56 Potassium Chloride 10 meq/ Dextrose/Sodium Chloride 1,005 ml @ 50 mls/hr Q20H6M IV 05/24/18 18:15 06/22/18 20:44 05/25/18 14:47 Quetiapine Fumarate (SEROquel) 100 mg BEDTIME ORAL 05/24/18 21:00 06/11/18 20:59 05/25/18 21:50 Sennosides (Senokot) 8.6 mg BIDPRN PRN ORAL Constipation 05/24/18 18:16 06/22/18 18:15 Temazepam (Restoril) 7.5 mg HSPRN PRN ORAL Insomnia 05/24/18 20:45 05/30/18 20:44 Vancomycin HCl (Vanco rx to dose) 1 ea DAILY PRN MISC Per rx protocol 05/25/18 09:00 06/22/18 20:44 Vancomycin HCl 1 gm/Dextrose 275 ml @ 183.708 mls/hr Q12H IVPB 05/25/18 17:00 05/30/18 16:59 05/26/18 05:34 Minerva Montesinos MD May 26, 2018 11:25
[2018-05-26 12:00] VITALS: BP 135/77
--- NOTE | 2018-05-26 12:05 | General Progress Note ---
Progress Note Progress Note Surgery: doing well. more awake and responsive today. pain improving. tolerating diet afebrile, HD stable, labs noted dressings removed. bilateral AKA stumps clean, dry, intact without signs of infection. flaps holding well without any ischemia or compromise. keep lower AKA elevated and protect with pillows wound care to sacral and buttock wounds as written d/c planning thank you Goyo Osuna May 26, 2018 12:05
--- NOTE | 2018-05-26 12:06 | General Progress Note ---
Assessment/Plan Problem List: (1) Bipolar disorder ICD Codes: F31.9 - Bipolar disorder, unspecified SNOMED: 40163290 (2) encephalopathy Status: stable, progressing Assessment/Plan dc abilify start seroquel the pt lacks capacity to make decisions Subjective 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: Reports: anxiety Allergies: Coded Allergies: MILK (Verified Allergy, Unknown, 02/02/18) Subjective the pt is doing well no behaviors Objective Last 24 Hour Vital Signs Date Time Temp Pulse Resp B/P (MAP) Pulse Ox O2 Delivery O2 Flow Rate FiO2 05/26/18 09:58 89 140/81 05/26/18 09:58 89 05/26/18 09:20 Nasal Cannula 2.0 28 05/26/18 09:20 89 20 Nasal Cannula 2.0 28 05/26/18 09:20 98 Nasal Cannula 2.0 28 05/26/18 08:20 Nasal Cannula 2.0 05/26/18 08:00 98.2 91 24 140/81 (100) 98 05/26/18 07:42 88 05/26/18 04:00 98.2 75 22 100/81 (87) 100 05/26/18 04:00 67 05/26/18 00:00 60 05/26/18 00:00 98.2 65 22 129/83 (98) 99 05/25/18 21:51 76 126/74 05/25/18 21:00 Nasal Cannula 2.0 05/25/18 20:00 100.0 76 22 126/74 (91) 96 05/25/18 20:00 84 05/25/18 19:50 Nasal Cannula 2.0 28 05/25/18 19:50 72 18 Nasal Cannula 2.0 28 05/25/18 19:50 98 Nasal Cannula 2.0 28 05/25/18 16:00 71 05/25/18 16:00 99.0 72 20 126/74 (91) 98 Intake and Output 05/25/18 05/26/18 18:59 06:59 Intake Total 410 ml 110 ml Output Total 200 ml 350 ml Balance 210 ml -240 ml Intake Oral 360 ml 110 ml IV Total 50 ml Output Urine Total 200 ml 350 ml Laboratory Tests 05/25/18 14:26: Urine Color Yellow, Urine Appearance Very cloudy, Urine pH 5, Urine Specific [place] 1.020, Urine Protein 2+H, Urine Glucose (UA) Negative, Urine Ketones Negative, Urine Blood 1+H, Urine Nitrite PositiveH, Urine Bilirubin Negative, Urine Urobilinogen Normal, Urine Leukocyte Esterase 2+H, Urine RBC 2-4H, Urine WBC 10-15H, Urine Squamous Epithelial Cells Few, Urine Amorphous Sediment ManyH , Urine Bacteria ManyH, Urine Yeast FewH 05/26/18 06:03: White Blood Count 13.1H, Red Blood Count 3.25L, Hemoglobin 9.6L, Hematocrit 29.2L, Mean Corpuscular Volume 90, Mean Corpuscular Hemoglobin 29.4, Mean Corpuscular Hemoglobin Concent 32.7, Red Cell Distribution Width 13.3, Platelet Count 203, Mean Platelet Volume 5.0L, Neutrophils (%) (Auto) 75.8H, Lymphocytes (%) (Auto) 13.6L, Monocytes (%) (Auto) 9.5, Eosinophils (%) (Auto) 0.6, Basophils (%) (Auto) 0.5, Prothrombin Time 12.4H, Prothromb Time International Ratio 1.2H, Activated Partial Thromboplast Time 40H, Sodium Level 133L, Potassium Level 3.5, Chloride Level 104, Carbon Dioxide Level 25, Anion Gap 4L, Blood Urea Nitrogen 11, Creatinine 0.7, Estimat Glomerular Filtration Rate > 60 , Glucose Level 235#H, Calcium Level 7.4L, Total Bilirubin 0.5, Aspartate Amino Transf (AST/SGOT) 21, Alanine Aminotransferase (ALT/SGPT) 12, Alkaline Phosphatase 116, Total Protein 6.0L, Albumin 1.0L, Globulin 5.0, Albumin/ Globulin Ratio 0.2L Height (Feet): 6 Height (Inches): 5.00 Weight (Pounds): 162 General Appearance: no apparent distress, alert, agitated - at times MIPS Medication Reconciliation 130 Medication Reconciliation I Obtained,updated or reviewed the patient's current medications (including prescription,over the counter, herbal, and nutritional supplements). Is this a Psycho/Diag encounte: No Depression 134,411,370 (psycho/diag only) BMI was documented today or within the past year. BMI was within normal parameters. PHQ-9 Score: 4 Safety Screening-Dementia 286 (psycho/diag only) Safety screening performed today-negative. Caregiver Health-Dementia 288 (psycho/diag only) Caregiver education and counseling was performed at another time in the past 12 months. Julissa Still MD May 26, 2018 12:06
--- NOTE | 2018-05-26 12:17 | Infectious Diseases Prog Note ---
Assessment/Plan Assessment/Plan - 68 yo male who was transferred from [place] where he initially presented for AMS from [facility]. Low grade fever, improving Leukocytosis ,recurrent increasing- -?post-op vs JAYLA (UTI, PNA) Small lung cavitary lesion/ PNA- suspect likely to aspiration; lower suspicion for TB and/or fungal etiologies -CT c/a/p: 10 mm opacity in the peripheral anterolateral right upper lobe with small central cavitation. Patchy groundglass opacity in the posterior right upper lobe. Suspect that these represent inflammatory/infectious lesions, but neoplastic etiology of either is certainly possible. Large left and moderate right pleural effusions. Resultant compressive atelectasis of portions of the lower lobes. Equivocal distal esophageal wall thickening, could indicate esophagitis if real -sp cx usual resp noah -AFB sp cx; smear neg x2; MTB PCR p -TB spot + -Neg Crag serum, legionella ag urine Sepsis / to bacteremia (at OSH) Likely source is skin ulcer Blood Cx 05/12/18 at [place] [facility] -Bcx 05/12 and (here) NTD 2d echo: no vegetations 05/15 CXR: Right midlung nodule. Absence of this finding on previous study makes this more likely to be a focus of inflammation, but rapidly growing neoplasm not excludable. Left basilar hazy opacity. Most likely a moderate to large pleural effusion.Component of infiltrate or atelectasis is also possible 05/12 CXR: Asymmetric ill-defined confluent groundglass opacity within the left mid/inferior lung, of uncertain etiology. B/l LE necrotic ulcer and toes- acute on chronci, ischemic w/ likely superinfection- likely non-salvageable per surgery -05/23 SP B/l BKA Afib w/ RVR AMS Likely secondary to sepsis Cerebrovascular accident. Hypertension. Sacral decubitus ulcers. Bipolar disorder. Coronary artery disease. Plan - d/c empiric Vancomycin #15 -Cont PO Flagyl #8 and switch Cefepime# 15 to Levaquin for cavitary/aspiration PNA -low threshold to switch Cefepime and Flagyl to Meropenem if decompensates -Per Dept of Public health and to aid on discharge planning back to SNF, will start empiric TB regimen with DONN; Levaquin instead of Rifampin given multiple drug interactions of Rifampin (w/ Amiodarone, quetiapine, metoprolol) -Dept of wants to treat empirically until final AFB culture results -monitor LFTs -Airborne isolation -AFB sp cx x3,MTB PCR x1 -f/u cocci ab, fungal sp cx, - f/u Blood Cx - Wound care - Monitor CBC and Temps -f/u sp cx, u/a w/ reflex -Cdiff if diarrhea -Obtain records from [facility] for BCx results -Sx f/u -CBC, CMP am Thank you for this consult. We will continue to follow the patient during this hospitalization. Discussed withRN Subjective Allergies: Coded Allergies: MILK (Verified Allergy, Unknown, 02/02/18) Subjective afebrile leukocytosis Objective Vital Signs Last 24 Hour Vital Signs Date Time Temp Pulse Resp B/P (MAP) Pulse Ox O2 Delivery O2 Flow Rate FiO2 05/26/18 09:58 89 140/81 05/26/18 09:58 89 05/26/18 09:20 Nasal Cannula 2.0 28 05/26/18 09:20 89 20 Nasal Cannula 2.0 28 05/26/18 09:20 98 Nasal Cannula 2.0 28 05/26/18 08:20 Nasal Cannula 2.0 05/26/18 08:00 98.2 91 24 140/81 (100) 98 05/26/18 07:42 88 05/26/18 04:00 98.2 75 22 100/81 (87) 100 05/26/18 04:00 67 05/26/18 00:00 60 05/26/18 00:00 98.2 65 22 129/83 (98) 99 05/25/18 21:51 76 126/74 05/25/18 21:00 Nasal Cannula 2.0 05/25/18 20:00 100.0 76 22 126/74 (91) 96 05/25/18 20:00 84 05/25/18 19:50 Nasal Cannula 2.0 28 05/25/18 19:50 72 18 Nasal Cannula 2.0 28 05/25/18 19:50 98 Nasal Cannula 2.0 28 05/25/18 16:00 71 05/25/18 16:00 99.0 72 20 126/74 (91) 98 Height (Feet): 6 Height (Inches): 5.00 Weight (Pounds): 162 Objective Gen: NAD. Mumbling HEENT: NCAT, MMM, EOMI, No Oral lesion, no scleral icterus NECK: full range of motion, supple, no meningismus, No LAD, No JVD LUNGS: CTAB, No W/C, No Accessory muscle use CARDS: RRR, S1, S2, No M/R/G ABD: Soft, NT, ND, No R/G, + BS, No HSM, No Masses : Deferred Ext: C/C/E, Pulses 2+ B/L (DP, Rad) NEURO: A/O x 0, Strength and Sensation Grossly intact PSYCH: mood/affect normal SKIN: Left foot wound. No purulent drainage, Feet now bandaged Microbiology Date/Time Source Procedure Growth Status 05/24/18 09:30 Sputum Induced Gram Stain - Final Complete 05/24/18 09:30 Sputum Culture - Final Apple Albicans Usual Respiratory Noah Complete 05/25/18 14:26 Urine,Clean Catch Urine Culture - Preliminary Resulted Laboratory Tests Test 05/25/18 14:26 05/26/18 06:03 Urine Color Yellow Urine Appearance Very cloudy Urine pH 5 (4.5-8.0) Urine Specific [place] 1.020 (1.005-1.035) Urine Protein 2+ (NEGATIVE) H Urine Glucose (UA) Negative (NEGATIVE) Urine Ketones Negative (NEGATIVE) Urine Blood 1+ (NEGATIVE) H Urine Nitrite Positive (NEGATIVE) H Urine Bilirubin Negative (NEGATIVE) Urine Urobilinogen Normal MG/DL (0.0-1.0) Urine Leukocyte Esterase 2+ (NEGATIVE) H Urine RBC 2-4 /HPF (0 - 0) H Urine WBC 10-15 /HPF (0 - 0) H Urine Squamous Epithelial Cells Few /LPF (NONE/OCC) Urine Amorphous Sediment Many /LPF (NONE) H Urine Bacteria Many /HPF (NONE) H Urine Yeast Few /HPF (NONE) H White Blood Count 13.1 K/UL (4.8-10.8) H Red Blood Count 3.25 M/UL (4.70-6.10) L Hemoglobin 9.6 G/DL (14.2-18.0) L Hematocrit 29.2 % (42.0-52.0) L Mean Corpuscular Volume 90 FL (80-99) Mean Corpuscular Hemoglobin 29.4 PG (27.0-31.0) Mean Corpuscular Hemoglobin Concent 32.7 G/DL (32.0-36.0) Red Cell Distribution Width 13.3 % (11.6-14.8) Platelet Count 203 K/UL (150-450) Mean Platelet Volume 5.0 FL (6.5-10.1) L Neutrophils (%) (Auto) 75.8 % (45.0-75.0) H Lymphocytes (%) (Auto) 13.6 % (20.0-45.0) L Monocytes (%) (Auto) 9.5 % (1.0-10.0) Eosinophils (%) (Auto) 0.6 % (0.0-3.0) Basophils (%) (Auto) 0.5 % (0.0-2.0) Prothrombin Time 12.4 SEC (9.30-11.50) H Prothromb Time International Ratio 1.2 (0.9-1.1) H Activated Partial Thromboplast Time 40 SEC (23-33) H Sodium Level 133 MMOL/L (136-145) L Potassium Level 3.5 MMOL/L (3.5-5.1) Chloride Level 104 MMOL/L (98-107) Carbon Dioxide Level 25 MMOL/L (21-32) Anion Gap 4 mmol/L (5-15) L Blood Urea Nitrogen 11 mg/dL (7-18) Creatinine 0.7 MG/DL (0.55-1.30) Estimat Glomerular Filtration Rate > 60 mL/min (>60) Glucose Level 235 MG/DL (74-106) #H Calcium Level 7.4 MG/DL (8.5-10.1) L Total Bilirubin 0.5 MG/DL (0.2-1.0) Aspartate Amino Transf (AST/SGOT) 21 U/L (15-37) Alanine Aminotransferase (ALT/SGPT) 12 U/L (12-78) Alkaline Phosphatase 116 U/L (46-116) Total Protein 6.0 G/DL (6.4-8.2) L Albumin 1.0 G/DL (3.4-5.0) L Globulin 5.0 g/dL Albumin/Globulin Ratio 0.2 (1.0-2.7) L Current Medications Medications (Trade) Dose Ordered Sig/Erlin Route PRN Reason Start Time Stop Time Status Last Admin Dose Admin Acetaminophen (Tylenol) 650 mg Q4H PRN ORAL Mild Pain/Temp > 100.5 05/24/18 18:14 06/11/18 18:13 05/24/18 22:57 Al Hydroxide/Mg Hydroxide (Mylanta) 15 ml Q6H PRN ORAL DYSPEPSIA 05/24/18 18:16 06/22/18 18:15 Albuterol/ Ipratropium (Albuterol/ Ipratropium) 3 ml Q4H PRN HHN Shortness of Breath 05/24/18 18:14 05/28/18 18:13 Amiodarone HCl (Cordarone) 200 mg DAILY ORAL 05/25/18 09:00 06/17/18 08:59 05/26/18 09:57 Cefepime HCl 1 gm/ Dextrose 55 ml @ 110 mls/hr EVERY 12 HOURS IVPB 05/24/18 21:00 05/28/18 11:59 05/26/18 09:57 Chlorhexidine Gluconate (Yari-Hex 2%) 1 applic DAILY@2000 TOPIC 05/24/18 20:00 06/23/18 19:59 05/25/18 21:50 Digoxin (Lanoxin) 0.125 mg DAILY ORAL 05/25/18 09:00 06/12/18 08:59 05/26/18 09:58 Diphenhydramine HCl (Benadryl) 25 mg Q8H PRN ORAL Itching/Pruritis 05/24/18 18:14 06/22/18 18:13 Docusate Sodium (Colace) 100 mg TWICE A DAY ORAL 05/25/18 09:00 06/22/18 17:59 05/26/18 09:57 Enoxaparin Sodium (Lovenox) 80 mg EVERY 12 HOURS SUBQ 05/24/18 21:00 06/18/18 20:59 05/26/18 09:59 Gabapentin (Neurontin) 100 mg THREE TIMES A DAY ORAL 05/25/18 09:00 06/11/18 17:59 05/26/18 09:57 Hydromorphone HCl (Dilaudid) 0.5 mg Q3H PRN IVP Pain Score 1-3 05/24/18 18:15 05/30/18 18:14 Hydromorphone HCl (Dilaudid) 1 mg Q3H PRN IVP pain score 4-6 05/24/18 18:15 05/30/18 18:14 05/26/18 07:00 Hydromorphone HCl (Dilaudid) 2 mg Q3H PRN IVP pain score 7-10 05/24/18 18:15 05/30/18 18:14 05/26/18 11:22 Lorazepam (Ativan 2mg/ml 1ml) 1 mg Q4H PRN IV For Anxiety 05/24/18 18:15 05/30/18 18:14 Magnesium Hydroxide (Mom) 30 ml BIDPRN PRN ORAL Constipation 05/24/18 18:16 06/22/18 18:15 Magnesium Sulfate 100 ml @ 100 mls/hr Q1H IVPB 05/26/18 12:00 05/26/18 13:59 Metoprolol Tartrate (Lopressor) 50 mg Q12HR ORAL 05/24/18 21:00 06/11/18 20:59 05/26/18 09:58 Metronidazole (Flagyl) 500 mg Q8H ORAL 05/25/18 02:00 05/31/18 01:59 05/26/18 09:57 Ondansetron HCl (Zofran) 4 mg Q6H PRN IVP Nausea & Vomiting 05/24/18 18:16 06/22/18 18:15 Polyethylene Glycol (Miralax) 17 gm DAILY ORAL 05/25/18 09:00 06/16/18 10:59 05/26/18 09:56 Potassium Chloride 10 meq/ Dextrose/Sodium Chloride 1,005 ml @ 50 mls/hr Q20H6M IV 05/24/18 18:15 06/22/18 20:44 05/26/18 11:23 Quetiapine Fumarate (SEROquel) 100 mg BEDTIME ORAL 05/24/18 21:00 06/11/18 20:59 05/25/18 21:50 Sennosides (Senokot) 8.6 mg BIDPRN PRN ORAL Constipation 05/24/18 18:16 06/22/18 18:15 Sodium Phosphate 30 mm/Sodium Chloride 285 ml @ 47.5 mls/hr ONCE IV 05/26/18 14:00 05/26/18 20:00 Temazepam (Restoril) 7.5 mg HSPRN PRN ORAL Insomnia 05/24/18 20:45 05/30/18 20:44 Vancomycin HCl (Vanco rx to dose) 1 ea DAILY PRN MISC Per rx protocol 05/25/18 09:00 06/22/18 20:44 Vancomycin HCl 1 gm/Dextrose 275 ml @ 183.708 mls/hr Q12H IVPB 05/25/18 17:00 05/30/18 16:59 05/26/18 05:34 Alma Elkins M.D. May 26, 2018 12:17
[2018-05-26] MEDS ORDERED: Pyridoxine 50mg tab ORAL SCH (14:00)
[2018-05-26] MEDS ORDERED: Isoniazid 300mg tab ORAL SCH (14:00)
[2018-05-26] MEDS ORDERED: Sodium Phosphate 30 MM in NS 275 ML IV SCH (14:00)
--- NOTE | 2018-05-26 14:44 | Cardiac Electrophysiology PN ---
Assessment/Plan Assessment/Plan 1. Paroxysmal Atrial fibrillation and flutter with RVR Continue digoxin 0.125 daily, metoprolol 50 bid and Amiodarone 200 daily. On Lovenox 80 b.i.d. 2. Borderline hypotension. Resolved 3. Fever and sepsis, on antibiotic with vancomycin and cefepime. 4. History of dementia and severe psychosis, on Seroquel. 5. Severe bilateral leg ulcers and sacral decubitus. S/P Bilateral AKA by Dr Enrrique GERMAN RN Subjective Subjective Post Bilateral AKA, still in resp isolation for possible TB. RN at bedside. BP was mildly elevated Objective Last 24 Hour Vital Signs Date Time Temp Pulse Resp B/P (MAP) Pulse Ox O2 Delivery O2 Flow Rate FiO2 05/26/18 12:00 97.3 83 24 135/77 (96) 94 05/26/18 11:52 98.2 05/26/18 09:58 89 140/81 05/26/18 09:58 89 05/26/18 09:20 Nasal Cannula 2.0 28 05/26/18 09:20 89 20 Nasal Cannula 2.0 28 05/26/18 09:20 98 Nasal Cannula 2.0 28 05/26/18 08:20 Nasal Cannula 2.0 05/26/18 08:00 98.2 91 24 140/81 (100) 98 05/26/18 07:42 88 05/26/18 04:00 98.2 75 22 100/81 (87) 100 05/26/18 04:00 67 05/26/18 00:00 60 05/26/18 00:00 98.2 65 22 129/83 (98) 99 05/25/18 21:51 76 126/74 05/25/18 21:00 Nasal Cannula 2.0 05/25/18 20:00 100.0 76 22 126/74 (91) 96 05/25/18 20:00 84 05/25/18 19:50 Nasal Cannula 2.0 28 05/25/18 19:50 72 18 Nasal Cannula 2.0 28 05/25/18 19:50 98 Nasal Cannula 2.0 28 05/25/18 16:00 71 05/25/18 16:00 99.0 72 20 126/74 (91) 98 Intake and Output 05/25/18 05/26/18 18:59 06:59 Intake Total 410 ml 110 ml Output Total 200 ml 350 ml Balance 210 ml -240 ml Intake Oral 360 ml 110 ml IV Total 50 ml Output Urine Total 200 ml 350 ml Laboratory Tests Test 05/26/18 06:03 White Blood Count 13.1 K/UL (4.8-10.8) H Red Blood Count 3.25 M/UL (4.70-6.10) L Hemoglobin 9.6 G/DL (14.2-18.0) L Hematocrit 29.2 % (42.0-52.0) L Mean Corpuscular Volume 90 FL (80-99) Mean Corpuscular Hemoglobin 29.4 PG (27.0-31.0) Mean Corpuscular Hemoglobin Concent 32.7 G/DL (32.0-36.0) Red Cell Distribution Width 13.3 % (11.6-14.8) Platelet Count 203 K/UL (150-450) Mean Platelet Volume 5.0 FL (6.5-10.1) L Neutrophils (%) (Auto) 75.8 % (45.0-75.0) H Lymphocytes (%) (Auto) 13.6 % (20.0-45.0) L Monocytes (%) (Auto) 9.5 % (1.0-10.0) Eosinophils (%) (Auto) 0.6 % (0.0-3.0) Basophils (%) (Auto) 0.5 % (0.0-2.0) Prothrombin Time 12.4 SEC (9.30-11.50) H Prothromb Time International Ratio 1.2 (0.9-1.1) H Activated Partial Thromboplast Time 40 SEC (23-33) H Sodium Level 133 MMOL/L (136-145) L Potassium Level 3.5 MMOL/L (3.5-5.1) Chloride Level 104 MMOL/L (98-107) Carbon Dioxide Level 25 MMOL/L (21-32) Anion Gap 4 mmol/L (5-15) L Blood Urea Nitrogen 11 mg/dL (7-18) Creatinine 0.7 MG/DL (0.55-1.30) Estimat Glomerular Filtration Rate > 60 mL/min (>60) Glucose Level 235 MG/DL (74-106) #H Calcium Level 7.4 MG/DL (8.5-10.1) L Total Bilirubin 0.5 MG/DL (0.2-1.0) Aspartate Amino Transf (AST/SGOT) 21 U/L (15-37) Alanine Aminotransferase (ALT/SGPT) 12 U/L (12-78) Alkaline Phosphatase 116 U/L (46-116) Total Protein 6.0 G/DL (6.4-8.2) L Albumin 1.0 G/DL (3.4-5.0) L Globulin 5.0 g/dL Albumin/Globulin Ratio 0.2 (1.0-2.7) L Hepatitis A IgM Antibody Pending Hepatitis B Surface Antigen Pending Hepatitis B Core IgM Antibody Pending Hepatitis C Antibody Pending Microbiology Date/Time Source Procedure Growth Status 05/24/18 09:30 Sputum Induced Gram Stain - Final Complete 05/24/18 09:30 Sputum Culture - Final Apple Albicans Usual Respiratory Nicky Complete 05/25/18 14:26 Urine,Clean Catch Urine Culture - Preliminary Resulted Objective HEAD AND NECK: Mild JVD. LUNGS: Coarse rhonchi. CARDIOVASCULAR: Irregular S1 and S2 with no murmur. ABDOMEN: Soft. EXTREMITIES: S/P Bilateral Amandeep Mart MD May 26, 2018 14:44
[2018-05-26 16:00] VITALS: BP 131/80
[2018-05-26] MEDS ORDERED: Dakin's 0.125% Soln (Quarter Strength) 16oz TOPIC SCH (16:01)
[2018-05-26] MEDS ORDERED: Sodium Phosphate 30 MM in NS 275 ML IV ONE (16:45)
[2018-05-26] MEDS ORDERED: HYDROmorphone 1mg/ml Carpuject IVP PRN (16:46)
[2018-05-26] MEDS ORDERED: Hydromorphone 0.5mg/0.5ml inj IVP PRN (16:47)
[2018-05-26] MEDS ORDERED: Albuterol/Ipratropium 3ml neb HHN PRN (16:47)
[2018-05-26] MEDS: Vancomycin 1 GM in D5W 275 ML IVPB SCH (17:59)
[2018-05-26] MEDS ORDERED: Sennosides 8.6mg tab ORAL PRN (18:30)
[2018-05-26] MEDS ORDERED: Milk of Magnesia 30ml Ud ORAL PRN (18:30)
[2018-05-26 20:00] VITALS: BP 137/84
--- NOTE | 2018-05-26 20:25 | Internal Med Progress Note ---
Subjective Date of Service: May 26, 2018 Physician Name JacksonDaniel wilson Attending Physician Pedro Caban MD Current Medications Medications (Trade) Dose Ordered Sig/Erlin Route PRN Reason Start Time Stop Time Status Last Admin Dose Admin Acetaminophen (Tylenol) 650 mg Q4H PRN ORAL Mild Pain/Temp > 100.5 05/26/18 16:45 06/11/18 16:44 Al Hydroxide/Mg Hydroxide (Mylanta) 15 ml Q6H PRN ORAL DYSPEPSIA 05/26/18 18:30 06/22/18 18:15 Albuterol/ Ipratropium (Albuterol/ Ipratropium) 3 ml Q4H PRN HHN Shortness of Breath 05/26/18 16:47 05/28/18 16:46 Amiodarone HCl (Cordarone) 200 mg DAILY ORAL 05/27/18 09:00 06/17/18 08:59 Cefepime HCl 1 gm/ Dextrose 55 ml @ 110 mls/hr EVERY 12 HOURS IVPB 05/26/18 21:00 05/28/18 11:59 Chlorhexidine Gluconate (Yari-Hex 2%) 1 applic DAILY@2000 TOPIC 05/26/18 20:00 06/23/18 19:59 Digoxin (Lanoxin) 0.125 mg DAILY ORAL 05/27/18 09:00 06/12/18 08:59 Diphenhydramine HCl (Benadryl) 25 mg Q8H PRN ORAL Itching/Pruritis 05/26/18 16:46 06/22/18 16:45 Docusate Sodium (Colace) 100 mg TWICE A DAY ORAL 05/26/18 18:00 06/22/18 17:59 05/26/18 17:12 Enoxaparin Sodium (Lovenox) 80 mg EVERY 12 HOURS SUBQ 05/26/18 21:00 06/18/18 20:59 Ethambutol HCl (Myambutol) 1,200 mg DAILY ORAL 05/27/18 09:00 06/25/18 13:59 Gabapentin (Neurontin) 100 mg THREE TIMES A DAY ORAL 05/26/18 18:00 06/11/18 17:59 05/26/18 17:13 Hydromorphone HCl (Dilaudid) 0.5 mg Q3H PRN IVP Pain Score 1-3 05/26/18 16:47 05/30/18 16:46 Hydromorphone HCl (Dilaudid) 1 mg Q3H PRN IVP pain score 4-6 05/26/18 16:46 05/30/18 16:45 Hydromorphone HCl (Dilaudid) 2 mg Q3H PRN IVP pain score 7-10 05/26/18 16:47 05/30/18 16:46 05/26/18 17:14 Isoniazid (Inh) 300 mg DAILY ORAL 05/27/18 09:00 06/25/18 13:59 Levofloxacin (Levaquin) 750 mg DAILY ORAL 05/27/18 09:00 06/02/18 13:00 Lorazepam (Ativan 2mg/ml 1ml) 1 mg Q4H PRN IV For Anxiety 05/26/18 16:47 05/30/18 16:46 Magnesium Hydroxide (Mom) 30 ml BIDPRN PRN ORAL Constipation 05/26/18 18:30 06/22/18 18:15 Metoprolol Tartrate (Lopressor) 50 mg Q12HR ORAL 05/26/18 21:00 06/11/18 20:59 Metronidazole (Flagyl) 500 mg Q8H ORAL 05/26/18 18:00 05/31/18 01:59 05/26/18 17:13 Ondansetron HCl (Zofran) 4 mg Q6H PRN IVP Nausea & Vomiting 05/26/18 18:30 06/22/18 18:15 Polyethylene Glycol (Miralax) 17 gm DAILY ORAL 05/27/18 09:00 06/16/18 10:59 Potassium Chloride 10 meq/ Dextrose/Sodium Chloride 1,005 ml @ 50 mls/hr Q20H6M IV 05/26/18 16:45 06/22/18 20:44 05/26/18 16:49 Pyrazinamide (Pza) 1,500 mg DAILY ORAL 05/27/18 09:00 06/25/18 13:59 Pyridoxine HCl (Vitamin B6) 50 mg DAILY ORAL 05/27/18 09:00 06/25/18 13:59 Quetiapine Fumarate (SEROquel) 100 mg BEDTIME ORAL 05/26/18 21:00 06/11/18 20:59 Sennosides (Senokot) 8.6 mg BIDPRN PRN ORAL Constipation 05/26/18 18:30 06/22/18 18:15 Sodium Hypochlorite (Dakin's Quarter Strength) 1 applic DAILY TOPIC 05/27/18 09:00 06/25/18 16:00 Temazepam (Restoril) 7.5 mg HSPRN PRN ORAL Insomnia 05/26/18 20:45 05/30/18 20:44 Vancomycin HCl (Vanco rx to dose) 1 ea DAILY PRN MISC Per rx protocol 05/27/18 09:00 06/22/18 20:44 Vancomycin HCl 1 gm/Dextrose 275 ml @ 183.708 mls/hr Q12H IVPB 05/26/18 17:00 05/30/18 16:59 05/26/18 17:59 Allergies: Coded Allergies: MILK (Verified Allergy, Unknown, 02/02/18) ROS Limited/Unobtainable: No Constitutional: Reports: no symptoms HEENT: Reports: no symptoms Cardiovascular: Reports: no symptoms Respiratory: Reports: no symptoms Gastrointestinal/Abdominal: Reports: no symptoms Genitourinary: Reports: no symptoms 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: Reports: no symptoms Subjective 68 YO A M admitted with altered mental status. Now sepsis and atrial fibrillation with rapid rate. Cover for Int Med-Dr Caban. ICU. 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 Objective Last Vital Signs Date Time Temp Pulse Resp B/P (MAP) Pulse Ox O2 Delivery O2 Flow Rate FiO2 05/26/18 20:00 98.2 80 20 137/84 (101) 95 05/26/18 09:20 Nasal Cannula 2.0 28 Laboratory Tests Test 05/26/18 06:03 05/26/18 14:35 White Blood Count 13.1 K/UL (4.8-10.8) H Red Blood Count 3.25 M/UL (4.70-6.10) L Hemoglobin 9.6 G/DL (14.2-18.0) L Hematocrit 29.2 % (42.0-52.0) L Mean Corpuscular Volume 90 FL (80-99) Mean Corpuscular Hemoglobin 29.4 PG (27.0-31.0) Mean Corpuscular Hemoglobin Concent 32.7 G/DL (32.0-36.0) Red Cell Distribution Width 13.3 % (11.6-14.8) Platelet Count 203 K/UL (150-450) Mean Platelet Volume 5.0 FL (6.5-10.1) L Neutrophils (%) (Auto) 75.8 % (45.0-75.0) H Lymphocytes (%) (Auto) 13.6 % (20.0-45.0) L Monocytes (%) (Auto) 9.5 % (1.0-10.0) Eosinophils (%) (Auto) 0.6 % (0.0-3.0) Basophils (%) (Auto) 0.5 % (0.0-2.0) Prothrombin Time 12.4 SEC (9.30-11.50) H Prothromb Time International Ratio 1.2 (0.9-1.1) H Activated Partial Thromboplast Time 40 SEC (23-33) H Sodium Level 133 MMOL/L (136-145) L Potassium Level 3.5 MMOL/L (3.5-5.1) Chloride Level 104 MMOL/L (98-107) Carbon Dioxide Level 25 MMOL/L (21-32) Anion Gap 4 mmol/L (5-15) L Blood Urea Nitrogen 11 mg/dL (7-18) Creatinine 0.7 MG/DL (0.55-1.30) Estimat Glomerular Filtration Rate > 60 mL/min (>60) Glucose Level 235 MG/DL (74-106) #H Calcium Level 7.4 MG/DL (8.5-10.1) L Total Bilirubin 0.5 MG/DL (0.2-1.0) Aspartate Amino Transf (AST/SGOT) 21 U/L (15-37) Alanine Aminotransferase (ALT/SGPT) 12 U/L (12-78) Alkaline Phosphatase 116 U/L (46-116) Total Protein 6.0 G/DL (6.4-8.2) L Albumin 1.0 G/DL (3.4-5.0) L Globulin 5.0 g/dL Albumin/Globulin Ratio 0.2 (1.0-2.7) L Hepatitis A IgM Antibody Pending Hepatitis B Surface Antigen Pending Hepatitis B Core IgM Antibody Pending Hepatitis C Antibody Pending M. tuberculosis Complex DNA (PCR) Pending Microbiology Date/Time Source Procedure Growth Status 05/24/18 09:30 Sputum Induced Gram Stain - Final Complete 05/24/18 09:30 Sputum Culture - Final Apple Albicans Usual Respiratory Nicky Complete 05/25/18 14:26 Urine,Clean Catch Urine Culture - Preliminary Resulted Intake and Output 05/25/18 05/26/18 19:00 07:00 Intake Total 360 ml 110 ml Output Total 200 ml 350 ml Balance 160 ml -240 ml Intake Oral 360 ml 110 ml Output Urine Total 200 ml 350 ml Objective General Appearance: alert, thin, agitated EENT: PERRL/EOMI, normal ENT inspection Neck: non-tender, normal alignment, supple, normal inspection Cardiovascular: normal peripheral pulses, normal rate, no gallop/murmur, no JVD , irregularly irregular Respiratory/Chest: chest wall non-tender, lungs clear, normal breath sounds, no respiratory distress, no accessory muscle use Abdomen: normal bowel sounds, non tender, soft, no organomegaly, no mass Extremities: normal range of motion, non-tender 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 (8) Sepsis Assessment & Plan: Continue cefepime and vanco per ID (9) UTI (urinary tract infection) Assessment & Plan: Mixed culture-continue vanco and cefepime per ID (10) Leukocytosis (11) Deep venous thrombosis of right femoral vein Assessment & Plan: D/C eliquis. Start lovenox SQ; D/C lovenox on Tuesday prior to surgery (12) Gangrene Assessment & Plan: S/P above the knee amputation Bilat lower ext 05/23/18 Status: progressing Daniel Jackson MD May 26, 2018 20:25
[2018-05-26] MEDS: Dyna-Hex 2% Top Sol 2oz TOPIC SCH (20:48)
[2018-05-27] VITALS: BP 124/68
[2018-05-27] MEDS: metroNIDAZOLE 500mg tab ORAL SCH ×3 (02:01→17:18)
[2018-05-27 04:00] VITALS: BP 146/76
[2018-05-27] MEDS: Vancomycin 1 GM in D5W 275 ML IVPB SCH (05:23)
[2018-05-27 06:08] LABS: BASOPHILS % (AUTO) 0.7 % (0.0-2.0); EOSINOPHILS % (AUTO) 0.6 % (0.0-3.0); HEMATOCRIT 29.2 % (42.0-52.0); HEMOGLOBIN 9.3 G/DL (14.2-18.0); LYMPHOCYTES % (AUTO) 11.1 % (20.0-45.0); MEAN CORPUSCULAR VOLUME 90 FL (80-99); MONOCYTES % (AUTO) 10.7 % (1.0-10.0); NEUTROPHILS % (AUTO) 76.9 % (45.0-75.0); PLATELET COUNT 199 K/UL (150-450); RED BLOOD COUNT 3.25 M/UL (4.70-6.10); RED CELL DISTRIBUTION WIDTH 12.9 % (11.6-14.8); WHITE BLOOD COUNT 11.9 K/UL (4.8-10.8)
[2018-05-27 06:48] LABS: ALANINE AMINOTRANSFERASE 11 U/L (12-78); ALBUMIN 0.9 G/DL (3.4-5.0); ALBUMIN/GLOBULIN RATIO 0.2 (1.0-2.7); ALKALINE PHOSPHATASE 112 U/L (46-116); ANION GAP 3 mmol/L (5-15); ASPARTATE AMINO TRANSFERASE 19 U/L (15-37); BILIRUBIN,TOTAL 0.3 MG/DL (0.2-1.0); BLOOD UREA NITROGEN 14 mg/dL (7-18); CALCIUM 7.4 MG/DL (8.5-10.1); CARBON DIOXIDE 27 MMOL/L (21-32); CHLORIDE 107 MMOL/L (98-107); CREATININE 0.7 MG/DL (0.55-1.30); POTASSIUM 3.8 MMOL/L (3.5-5.1); SODIUM 137 MMOL/L (136-145)
[2018-05-27 08:00] VITALS: BP 148/95
--- NOTE | 2018-05-27 08:46 | Pulmonology Progress Note ---
Assessment/Plan Problems: (1) Sepsis (2) Atrial fibrillation (3) Decubitus skin ulcer (4) Bipolar disorder (5) CAD (coronary artery disease) (6) HTN (hypertension) (7) CVA (cerebral vascular accident) Assessment/Plan wbx still high, ? etiology cxr reviewed, increasing Left effusion iv abx wound care f/u cultures monitor BP watch heart rate dvt prophylaxis symptomatic treatment med/surg if ok with cardio Subjective ROS Limited/Unobtainable: No Allergies: Coded Allergies: MILK (Verified Allergy, Unknown, 02/02/18) Objective Last 24 Hour Vital Signs Date Time Temp Pulse Resp B/P (MAP) Pulse Ox O2 Delivery O2 Flow Rate FiO2 05/27/18 08:00 98.4 69 20 148/95 (112) 95 05/27/18 04:00 98.1 67 20 146/76 (99) 98 05/27/18 00:00 98.3 60 22 124/68 (86) 100 05/26/18 21:00 Nasal Cannula 2.0 05/26/18 20:49 80 137/84 05/26/18 20:00 98.2 80 20 137/84 (101) 95 05/26/18 19:00 55 20 Nasal Cannula 2.0 28 05/26/18 19:00 Nasal Cannula 2.0 28 05/26/18 19:00 99 Nasal Cannula 2.0 28 05/26/18 16:00 97.0 72 22 131/80 (97) 95 05/26/18 14:51 97.3 05/26/18 12:00 97.3 83 24 135/77 (96) 94 05/26/18 09:58 89 140/81 05/26/18 09:58 89 05/26/18 09:20 Nasal Cannula 2.0 28 05/26/18 09:20 89 20 Nasal Cannula 2.0 28 05/26/18 09:20 98 Nasal Cannula 2.0 28 Intake and Output 05/26/18 05/27/18 19:00 07:00 Intake Total 50 ml 748.708 ml Output Total 600 ml Balance 50 ml 148.708 ml Intake Oral 60 ml IV Total 50 ml 688.708 ml Output Urine Total 600 ml Objective General Appearance: WD/WN HEENT: normocephalic Respiratory/Chest: chest wall non-tender, lungs clear, normal breath sounds Cardiovascular: normal peripheral pulses, normal rate Abdomen: normal bowel sounds, soft, non tender Genitourinary: normal external genitalia Extremities: s/p amputation Skin: no rash Microbiology Date/Time Source Procedure Growth Status 05/24/18 09:30 Sputum Induced Gram Stain - Final Complete 05/24/18 09:30 Sputum Culture - Final Apple Albicans Usual Respiratory Nicky Complete 05/25/18 14:26 Urine,Clean Catch Urine Culture - Preliminary Resulted Laboratory Tests 05/26/18 14:35: M. tuberculosis Complex DNA (PCR) [Pending] 05/27/18 05:00: White Blood Count 11.9H, Red Blood Count 3.25L, Hemoglobin 9.3L, Hematocrit 29.2L, Mean Corpuscular Volume 90, Mean Corpuscular Hemoglobin 28.7, Mean Corpuscular Hemoglobin Concent 32.0, Red Cell Distribution Width 12.9, Platelet Count 199, Mean Platelet Volume 4.9L, Neutrophils (%) (Auto) 76.9H, Lymphocytes (%) (Auto) 11.1L, Monocytes (%) (Auto) 10.7H, Eosinophils (%) (Auto) 0.6, Basophils (%) (Auto) 0.7, Sodium Level 137, Potassium Level 3.8, Chloride Level 107, Carbon Dioxide Level 27, Anion Gap 3L, Blood Urea Nitrogen 14, Creatinine 0.7, Estimat Glomerular Filtration Rate > 60, Glucose Level 92#, Calcium Level 7.4L, Total Bilirubin 0.3, Aspartate Amino Transf (AST/SGOT) 19, Alanine Aminotransferase (ALT/SGPT) 11L, Alkaline Phosphatase 112, Total Protein 5.9L, Albumin 0.9L, Globulin 5.0, Albumin/Globulin Ratio 0.2L, HIV (1&2) Antibody Rapid Negative Current Medications Medications (Trade) Dose Ordered Sig/Erlin Route PRN Reason Start Time Stop Time Status Last Admin Dose Admin Acetaminophen (Tylenol) 650 mg Q4H PRN ORAL Mild Pain/Temp > 100.5 05/26/18 16:45 06/11/18 16:44 Al Hydroxide/Mg Hydroxide (Mylanta) 15 ml Q6H PRN ORAL DYSPEPSIA 05/26/18 18:30 06/22/18 18:15 Albuterol/ Ipratropium (Albuterol/ Ipratropium) 3 ml Q4H PRN HHN Shortness of Breath 05/26/18 16:47 05/28/18 16:46 Amiodarone HCl (Cordarone) 200 mg DAILY ORAL 05/27/18 09:00 06/17/18 08:59 Cefepime HCl 1 gm/ Dextrose 55 ml @ 110 mls/hr EVERY 12 HOURS IVPB 05/26/18 21:00 05/28/18 11:59 05/26/18 20:49 Chlorhexidine Gluconate (Yari-Hex 2%) 1 applic DAILY@2000 TOPIC 05/26/18 20:00 06/23/18 19:59 05/26/18 20:48 Digoxin (Lanoxin) 0.125 mg DAILY ORAL 05/27/18 09:00 06/12/18 08:59 Diphenhydramine HCl (Benadryl) 25 mg Q8H PRN ORAL Itching/Pruritis 05/26/18 16:46 06/22/18 16:45 Docusate Sodium (Colace) 100 mg TWICE A DAY ORAL 05/26/18 18:00 06/22/18 17:59 05/26/18 17:12 Enoxaparin Sodium (Lovenox) 80 mg EVERY 12 HOURS SUBQ 05/26/18 21:00 06/18/18 20:59 05/26/18 20:53 Ethambutol HCl (Myambutol) 1,200 mg DAILY ORAL 05/27/18 09:00 06/25/18 13:59 Gabapentin (Neurontin) 100 mg THREE TIMES A DAY ORAL 05/26/18 18:00 06/11/18 17:59 05/26/18 17:13 Hydromorphone HCl (Dilaudid) 0.5 mg Q3H PRN IVP Pain Score 1-3 05/26/18 16:47 05/30/18 16:46 Hydromorphone HCl (Dilaudid) 1 mg Q3H PRN IVP pain score 4-6 05/26/18 16:46 05/30/18 16:45 Hydromorphone HCl (Dilaudid) 2 mg Q3H PRN IVP pain score 7-10 05/26/18 16:47 05/30/18 16:46 05/27/18 05:23 Isoniazid (Inh) 300 mg DAILY ORAL 05/27/18 09:00 06/25/18 13:59 Levofloxacin (Levaquin) 750 mg DAILY ORAL 05/27/18 09:00 06/02/18 13:00 Lorazepam (Ativan 2mg/ml 1ml) 1 mg Q4H PRN IV For Anxiety 05/26/18 16:47 05/30/18 16:46 Magnesium Hydroxide (Mom) 30 ml BIDPRN PRN ORAL Constipation 05/26/18 18:30 06/22/18 18:15 Metoprolol Tartrate (Lopressor) 50 mg Q12HR ORAL 05/26/18 21:00 06/11/18 20:59 05/26/18 20:49 Metronidazole (Flagyl) 500 mg Q8H ORAL 05/26/18 18:00 05/31/18 01:59 05/27/18 02:01 Ondansetron HCl (Zofran) 4 mg Q6H PRN IVP Nausea & Vomiting 05/26/18 18:30 06/22/18 18:15 Polyethylene Glycol (Miralax) 17 gm DAILY ORAL 05/27/18 09:00 06/16/18 10:59 Potassium Chloride 10 meq/ Dextrose/Sodium Chloride 1,005 ml @ 50 mls/hr Q20H6M IV 05/26/18 16:45 06/22/18 20:44 05/26/18 16:49 Pyrazinamide (Pza) 1,500 mg DAILY ORAL 05/27/18 09:00 06/25/18 13:59 Pyridoxine HCl (Vitamin B6) 50 mg DAILY ORAL 05/27/18 09:00 06/25/18 13:59 Quetiapine Fumarate (SEROquel) 100 mg BEDTIME ORAL 05/26/18 21:00 06/11/18 20:59 05/26/18 20:49 Sennosides (Senokot) 8.6 mg BIDPRN PRN ORAL Constipation 05/26/18 18:30 06/22/18 18:15 Sodium Hypochlorite (Dakin's Quarter Strength) 1 applic DAILY TOPIC 05/27/18 09:00 06/25/18 16:00 Temazepam (Restoril) 7.5 mg HSPRN PRN ORAL Insomnia 05/26/18 20:45 05/30/18 20:44 Vancomycin HCl (Vanco rx to dose) 1 ea DAILY PRN MISC Per rx protocol 05/27/18 09:00 06/22/18 20:44 Vancomycin HCl 1 gm/Dextrose 275 ml @ 183.708 mls/hr Q12H IVPB 05/26/18 17:00 05/30/18 16:59 05/27/18 05:23 Minerva Montesinos MD May 27, 2018 08:46
[2018-05-27] MEDS: Miralax 17gm pkt ORAL SCH (09:00)
[2018-05-27] MEDS: Cefepime HCl 1 GM in D5W 55 ML IVPB SCH (09:27)
[2018-05-27] MEDS: Amiodarone 200mg tab ORAL SCH (09:29)
[2018-05-27] MEDS: Isoniazid 300mg tab ORAL SCH (09:29)
[2018-05-27] MEDS: Docusate 100mg cap ORAL SCH ×2 (09:29→17:18)
[2018-05-27] MEDS: Digoxin 0.125mg tab ORAL SCH (09:31)
[2018-05-27] MEDS: Metoprolol Tartrate 50mg tab ORAL SCH ×2 (09:32→20:59)
[2018-05-27] MEDS: Pyridoxine 50mg tab ORAL SCH (09:32)
[2018-05-27] MEDS: Enoxaparin 80mg Inj SUBQ SCH (09:36)
[2018-05-27] MEDS: Dakin's 0.125% Soln (Quarter Strength) 16oz TOPIC SCH (09:36)
[2018-05-27 12:00] VITALS: BP 142/86
[2018-05-27] MEDS: Potassium Chloride 10 MEQ in D5 1/2NS 1,000 ML IV SCH (13:38)
--- NOTE | 2018-05-27 13:58 | Cardiac Electrophysiology PN ---
Assessment/Plan Assessment/Plan 1. Paroxysmal Atrial fibrillation and flutter with RVR Continue digoxin 0.125 daily, metoprolol 50 bid and Amiodarone 200 daily. On Lovenox 80 b.i.d. 2. Borderline hypotension. Resolved 3. Fever, cough and sepsis, on antibiotic and in respiratory isolation. 4. History of dementia and severe psychosis, on Seroquel. 5. Severe bilateral leg ulcers and sacral decubitus. S/P Bilateral AKA by Dr Enrrique GERMAN RN Subjective Subjective Post Bilateral AKA, still in resp isolation awaiting 3rd AF[employer]. RN at bedside. Objective Last 24 Hour Vital Signs Date Time Temp Pulse Resp B/P (MAP) Pulse Ox O2 Delivery O2 Flow Rate FiO2 05/27/18 12:00 98.6 72 20 142/86 (104) 95 05/27/18 10:29 98.4 05/27/18 09:32 69 148/95 05/27/18 09:31 69 05/27/18 09:00 Nasal Cannula 2.0 05/27/18 08:00 98.4 69 20 148/95 (112) 95 05/27/18 04:00 98.1 67 20 146/76 (99) 98 05/27/18 00:00 98.3 60 22 124/68 (86) 100 05/26/18 21:00 Nasal Cannula 2.0 05/26/18 20:49 80 137/84 05/26/18 20:00 98.2 80 20 137/84 (101) 95 05/26/18 19:00 55 20 Nasal Cannula 2.0 28 05/26/18 19:00 Nasal Cannula 2.0 28 05/26/18 19:00 99 Nasal Cannula 2.0 28 05/26/18 16:00 97.0 72 22 131/80 (97) 95 05/26/18 14:51 97.3 Intake and Output 05/26/18 05/27/18 18:59 06:59 Intake Total 50 ml 748.708 ml Output Total 600 ml Balance 50 ml 148.708 ml Intake Oral 60 ml IV Total 50 ml 688.708 ml Output Urine Total 600 ml Laboratory Tests Test 05/26/18 14:35 05/27/18 05:00 M. tuberculosis Complex DNA (PCR) Pending White Blood Count 11.9 K/UL (4.8-10.8) H Red Blood Count 3.25 M/UL (4.70-6.10) L Hemoglobin 9.3 G/DL (14.2-18.0) L Hematocrit 29.2 % (42.0-52.0) L Mean Corpuscular Volume 90 FL (80-99) Mean Corpuscular Hemoglobin 28.7 PG (27.0-31.0) Mean Corpuscular Hemoglobin Concent 32.0 G/DL (32.0-36.0) Red Cell Distribution Width 12.9 % (11.6-14.8) Platelet Count 199 K/UL (150-450) Mean Platelet Volume 4.9 FL (6.5-10.1) L Neutrophils (%) (Auto) 76.9 % (45.0-75.0) H Lymphocytes (%) (Auto) 11.1 % (20.0-45.0) L Monocytes (%) (Auto) 10.7 % (1.0-10.0) H Eosinophils (%) (Auto) 0.6 % (0.0-3.0) Basophils (%) (Auto) 0.7 % (0.0-2.0) Sodium Level 137 MMOL/L (136-145) Potassium Level 3.8 MMOL/L (3.5-5.1) Chloride Level 107 MMOL/L (98-107) Carbon Dioxide Level 27 MMOL/L (21-32) Anion Gap 3 mmol/L (5-15) L Blood Urea Nitrogen 14 mg/dL (7-18) Creatinine 0.7 MG/DL (0.55-1.30) Estimat Glomerular Filtration Rate > 60 mL/min (>60) Glucose Level 92 MG/DL (74-106) # Calcium Level 7.4 MG/DL (8.5-10.1) L Total Bilirubin 0.3 MG/DL (0.2-1.0) Aspartate Amino Transf (AST/SGOT) 19 U/L (15-37) Alanine Aminotransferase (ALT/SGPT) 11 U/L (12-78) L Alkaline Phosphatase 112 U/L (46-116) Total Protein 5.9 G/DL (6.4-8.2) L Albumin 0.9 G/DL (3.4-5.0) L Globulin 5.0 g/dL Albumin/Globulin Ratio 0.2 (1.0-2.7) L HIV (1&2) Antibody Rapid Negative (NEGATIVE) Microbiology Date/Time Source Procedure Growth Status 05/25/18 11:50 Blood Blood Culture - Preliminary NO GROWTH AFTER 24 HOURS Resulted 05/25/18 11:40 Blood Blood Culture - Preliminary NO GROWTH AFTER 24 HOURS Resulted 05/25/18 14:26 Urine,Clean Catch Urine Culture - Preliminary Yeast Species Resulted Objective HEAD AND NECK: Mild JVD. LUNGS: Coarse rhonchi. CARDIOVASCULAR: Irregular S1 and S2 with no murmur. ABDOMEN: Soft. EXTREMITIES: S/P Bilateral Amandeep Mart MD May 27, 2018 13:58
--- NOTE | 2018-05-27 14:02 | General Progress Note ---
Progress Note Progress Note Surgery: no acute events. stable. bilateral AKA wounds clean, dry, intact no signs of infection flaps taking well thus far okay to leave open to air cont current care d/c planning Goyo Osuna May 27, 2018 14:02
[2018-05-27 16:00] VITALS: BP 145/90
[2018-05-27] MEDS ORDERED: Tubing IV Secondary IV ONE (16:27)
[2018-05-27] MEDS ORDERED: D5 1/2NS 1000ml IV ONE (16:27)
[2018-05-27] MEDS ORDERED: NS 275ml ONE (16:27)
--- NOTE | 2018-05-27 17:05 | Internal Med Progress Note ---
Subjective Date of Service: May 27, 2018 Physician Name Jackson,Daniel Attending Physician Pedro Caban MD Current Medications Medications (Trade) Dose Ordered Sig/Erlin Route PRN Reason Start Time Stop Time Status Last Admin Dose Admin Acetaminophen (Tylenol) 650 mg Q4H PRN ORAL Mild Pain/Temp > 100.5 05/26/18 16:45 06/11/18 16:44 Al Hydroxide/Mg Hydroxide (Mylanta) 15 ml Q6H PRN ORAL DYSPEPSIA 05/26/18 18:30 06/22/18 18:15 Albuterol/ Ipratropium (Albuterol/ Ipratropium) 3 ml Q4H PRN HHN Shortness of Breath 05/26/18 16:47 05/28/18 16:46 Amiodarone HCl (Cordarone) 200 mg DAILY ORAL 05/27/18 09:00 06/17/18 08:59 05/27/18 09:29 Chlorhexidine Gluconate (Yari-Hex 2%) 1 applic DAILY@2000 TOPIC 05/26/18 20:00 06/23/18 19:59 05/26/18 20:48 Dextrose/ Electrolytes 1,000 ml @ 50 mls/hr Q20H IV 05/28/18 08:57 06/27/18 08:56 Digoxin (Lanoxin) 0.125 mg DAILY ORAL 05/27/18 09:00 06/12/18 08:59 05/27/18 09:31 Diphenhydramine HCl (Benadryl) 25 mg Q8H PRN ORAL Itching/Pruritis 05/26/18 16:46 06/22/18 16:45 Docusate Sodium (Colace) 100 mg TWICE A DAY ORAL 05/26/18 18:00 06/22/18 17:59 05/27/18 09:29 Enoxaparin Sodium (Lovenox) 70 mg EVERY 12 HOURS SUBQ 05/27/18 21:00 06/26/18 20:59 Ethambutol HCl (Myambutol) 1,200 mg DAILY ORAL 05/27/18 09:00 06/25/18 13:59 05/27/18 09:31 Gabapentin (Neurontin) 100 mg THREE TIMES A DAY ORAL 05/26/18 18:00 06/11/18 17:59 05/27/18 13:39 Hydromorphone HCl (Dilaudid) 0.5 mg Q3H PRN IVP Pain Score 1-3 05/26/18 16:47 05/30/18 16:46 Hydromorphone HCl (Dilaudid) 1 mg Q3H PRN IVP pain score 4-6 05/26/18 16:46 05/30/18 16:45 Hydromorphone HCl (Dilaudid) 2 mg Q3H PRN IVP pain score 7-10 05/26/18 16:47 05/30/18 16:46 05/27/18 13:39 Isoniazid (Inh) 300 mg DAILY ORAL 05/27/18 09:00 06/25/18 13:59 05/27/18 09:29 Levofloxacin (Levaquin) 750 mg DAILY ORAL 05/27/18 09:00 06/02/18 13:00 05/27/18 09:30 Lorazepam (Ativan 2mg/ml 1ml) 1 mg Q4H PRN IV For Anxiety 05/26/18 16:47 05/30/18 16:46 Magnesium Hydroxide (Mom) 30 ml BIDPRN PRN ORAL Constipation 05/26/18 18:30 06/22/18 18:15 Metoprolol Tartrate (Lopressor) 50 mg Q12HR ORAL 05/26/18 21:00 06/11/18 20:59 05/27/18 09:32 Metronidazole (Flagyl) 500 mg Q8H ORAL 05/26/18 18:00 05/31/18 01:59 05/27/18 09:29 Ondansetron HCl (Zofran) 4 mg Q6H PRN IVP Nausea & Vomiting 05/26/18 18:30 06/22/18 18:15 Polyethylene Glycol (Miralax) 17 gm DAILY ORAL 05/27/18 09:00 06/16/18 10:59 Potassium Chloride 10 meq/ Dextrose/Sodium Chloride 1,005 ml @ 50 mls/hr Q20H6M IV 05/26/18 16:45 05/28/18 08:56 05/27/18 13:38 Pyrazinamide (Pza) 1,500 mg DAILY ORAL 05/27/18 09:00 06/25/18 13:59 05/27/18 09:32 Pyridoxine HCl (Vitamin B6) 50 mg DAILY ORAL 05/27/18 09:00 06/25/18 13:59 05/27/18 09:32 Quetiapine Fumarate (SEROquel) 100 mg BEDTIME ORAL 05/26/18 21:00 06/11/18 20:59 05/26/18 20:49 Sennosides (Senokot) 8.6 mg BIDPRN PRN ORAL Constipation 05/26/18 18:30 06/22/18 18:15 Sodium Hypochlorite (Dakin's Quarter Strength) 1 applic DAILY TOPIC 05/27/18 09:00 06/25/18 16:00 05/27/18 09:36 Temazepam (Restoril) 7.5 mg HSPRN PRN ORAL Insomnia 05/26/18 20:45 05/30/18 20:44 Allergies: Coded Allergies: MILK (Verified Allergy, Unknown, 02/02/18) ROS Limited/Unobtainable: No Constitutional: Reports: no symptoms HEENT: Reports: no symptoms Cardiovascular: Reports: no symptoms Respiratory: Reports: no symptoms Gastrointestinal/Abdominal: Reports: no symptoms Genitourinary: Reports: no symptoms 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: Reports: no symptoms Subjective 68 YO A M admitted with altered mental status. Now sepsis and atrial fibrillation with rapid rate. Cover for Int Med-Dr Caban. ICU. 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 Objective Last Vital Signs Date Time Temp Pulse Resp B/P (MAP) Pulse Ox O2 Delivery O2 Flow Rate FiO2 05/27/18 16:00 98.4 70 20 145/90 (108) 96 05/27/18 09:00 Nasal Cannula 2.0 05/26/18 19:00 28 Laboratory Tests Test 05/27/18 05:00 White Blood Count 11.9 K/UL (4.8-10.8) H Red Blood Count 3.25 M/UL (4.70-6.10) L Hemoglobin 9.3 G/DL (14.2-18.0) L Hematocrit 29.2 % (42.0-52.0) L Mean Corpuscular Volume 90 FL (80-99) Mean Corpuscular Hemoglobin 28.7 PG (27.0-31.0) Mean Corpuscular Hemoglobin Concent 32.0 G/DL (32.0-36.0) Red Cell Distribution Width 12.9 % (11.6-14.8) Platelet Count 199 K/UL (150-450) Mean Platelet Volume 4.9 FL (6.5-10.1) L Neutrophils (%) (Auto) 76.9 % (45.0-75.0) H Lymphocytes (%) (Auto) 11.1 % (20.0-45.0) L Monocytes (%) (Auto) 10.7 % (1.0-10.0) H Eosinophils (%) (Auto) 0.6 % (0.0-3.0) Basophils (%) (Auto) 0.7 % (0.0-2.0) Sodium Level 137 MMOL/L (136-145) Potassium Level 3.8 MMOL/L (3.5-5.1) Chloride Level 107 MMOL/L (98-107) Carbon Dioxide Level 27 MMOL/L (21-32) Anion Gap 3 mmol/L (5-15) L Blood Urea Nitrogen 14 mg/dL (7-18) Creatinine 0.7 MG/DL (0.55-1.30) Estimat Glomerular Filtration Rate > 60 mL/min (>60) Glucose Level 92 MG/DL (74-106) # Calcium Level 7.4 MG/DL (8.5-10.1) L Total Bilirubin 0.3 MG/DL (0.2-1.0) Aspartate Amino Transf (AST/SGOT) 19 U/L (15-37) Alanine Aminotransferase (ALT/SGPT) 11 U/L (12-78) L Alkaline Phosphatase 112 U/L (46-116) Total Protein 5.9 G/DL (6.4-8.2) L Albumin 0.9 G/DL (3.4-5.0) L Globulin 5.0 g/dL Albumin/Globulin Ratio 0.2 (1.0-2.7) L HIV (1&2) Antibody Rapid Negative (NEGATIVE) Microbiology Date/Time Source Procedure Growth Status 05/25/18 11:50 Blood Blood Culture - Preliminary NO GROWTH AFTER 24 HOURS Resulted 05/25/18 11:40 Blood Blood Culture - Preliminary NO GROWTH AFTER 24 HOURS Resulted 05/26/18 14:35 Sputum AFB Specimen Processing Tissue - Final Resulted 05/26/18 14:35 Sputum Acid Fast Bacilli Smear - Final Resulted 05/26/18 14:35 Sputum Acid Fast Bacilli Culture Pending Resulted 05/25/18 14:26 Urine,Clean Catch Urine Culture - Preliminary Yeast Species Resulted Intake and Output 05/26/18 05/27/18 18:59 06:59 Intake Total 50 ml 748.708 ml Output Total 600 ml Balance 50 ml 148.708 ml Intake Oral 60 ml IV Total 50 ml 688.708 ml Output Urine Total 600 ml Objective General Appearance: alert, thin, agitated EENT: PERRL/EOMI, normal ENT inspection Neck: non-tender, normal alignment, supple, normal inspection Cardiovascular: normal peripheral pulses, normal rate, no gallop/murmur, no JVD , irregularly irregular Respiratory/Chest: chest wall non-tender, lungs clear, normal breath sounds, no respiratory distress, no accessory muscle use Abdomen: normal bowel sounds, non tender, soft, no organomegaly, no mass Extremities: normal range of motion, non-tender 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 (8) Sepsis Assessment & Plan: Continue cefepime and vanco per ID (9) UTI (urinary tract infection) Assessment & Plan: Mixed culture-continue vanco and cefepime per ID (10) Leukocytosis (11) Deep venous thrombosis of right femoral vein Assessment & Plan: D/C eliquis. Start lovenox SQ; D/C lovenox on Tuesday prior to surgery (12) Gangrene Assessment & Plan: S/P above the knee amputation Bilat lower ext 05/23/18 Status: stable Status Narrative Discharge planning Daniel Jackson MD May 27, 2018 17:05
[2018-05-27] MEDS ORDERED: NS 500ML ONE (17:06)
[2018-05-27 20:00] VITALS: BP 153/78
[2018-05-27] MEDS: Dyna-Hex 2% Top Sol 2oz TOPIC SCH (20:59)
[2018-05-27] MEDS ORDERED: Enoxaparin 80mg Inj SUBQ SCH (21:00)
[2018-05-27] MEDS: Enoxaparin Sodium 300mg/3ml vial SUBQ SCH (21:23)
[2018-05-28] VITALS: BP 108/51
[2018-05-28] MEDS: metroNIDAZOLE 500mg tab ORAL SCH ×3 (02:10→18:37)
[2018-05-28 04:00] VITALS: BP 107/60
[2018-05-28 08:00] VITALS: BP 112/72
[2018-05-28 08:15] LABS: BASOPHILS % (AUTO) 0.9 % (0.0-2.0); EOSINOPHILS % (AUTO) 0.2 % (0.0-3.0); HEMATOCRIT 30.7 % (42.0-52.0); HEMOGLOBIN 9.8 G/DL (14.2-18.0); LYMPHOCYTES % (AUTO) 12.3 % (20.0-45.0); MEAN CORPUSCULAR VOLUME 91 FL (80-99); NEUTROPHILS % (AUTO) 77.6 % (45.0-75.0); PLATELET COUNT 238 K/UL (150-450); RED BLOOD COUNT 3.38 M/UL (4.70-6.10); RED CELL DISTRIBUTION WIDTH 13.3 % (11.6-14.8); WHITE BLOOD COUNT 16.5 K/UL (4.8-10.8)
[2018-05-28 08:34] LABS: ANION GAP 5 mmol/L (5-15); BLOOD UREA NITROGEN 11 mg/dL (7-18); CALCIUM 7.7 MG/DL (8.5-10.1); CARBON DIOXIDE 26 MMOL/L (21-32); CHLORIDE 106 MMOL/L (98-107); CREATININE 0.8 MG/DL (0.55-1.30); POTASSIUM 3.8 MMOL/L (3.5-5.1); SODIUM 137 MMOL/L (136-145)
[2018-05-28] MEDS: Isoniazid 300mg tab ORAL SCH (09:37)
[2018-05-28] MEDS: Miralax 17gm pkt ORAL SCH (09:37)
[2018-05-28] MEDS: Docusate 100mg cap ORAL SCH ×2 (09:38→18:00)
[2018-05-28] MEDS: Pyridoxine 50mg tab ORAL SCH (09:38)
[2018-05-28] MEDS: Digoxin 0.125mg tab ORAL SCH (09:39)
[2018-05-28] MEDS: D5 1/2NS w/KCL 10meq 1,000 ML IV SCH (09:39)
[2018-05-28] MEDS: Amiodarone 200mg tab ORAL SCH (09:39)
[2018-05-28] MEDS: Metoprolol Tartrate 50mg tab ORAL SCH ×2 (09:39→21:00)
[2018-05-28] MEDS: Dakin's 0.125% Soln (Quarter Strength) 16oz TOPIC SCH (09:43)
[2018-05-28 12:00] VITALS: BP 146/102
[2018-05-28] MEDS: Enoxaparin Sodium 300mg/3ml vial SUBQ SCH ×2 (12:12→20:58)
[2018-05-28 16:00] VITALS: BP 86/48
--- NOTE | 2018-05-28 16:54 | Cardiac Electrophysiology PN ---
Assessment/Plan Assessment/Plan 1. Paroxysmal Atrial fibrillation and flutter with RVR Continue digoxin 0.125 daily, metoprolol 50 bid and Amiodarone 200 daily. On Lovenox 70 b.i.d. 2. Borderline hypotension. Resolved 3. Fever, cough and sepsis, on antibiotic and in respiratory isolation. 4. History of dementia and severe psychosis, on Seroquel. 5. Severe bilateral leg ulcers and sacral decubitus. S/P Bilateral AKA by Dr. Enrrique GERMAN RN Subjective Subjective Still in resp isolation awaiting last AFB. RN at bedside. Objective Last 24 Hour Vital Signs Date Time Temp Pulse Resp B/P (MAP) Pulse Ox O2 Delivery O2 Flow Rate FiO2 05/28/18 12:00 97.0 60 19 146/102 (117) 100 05/28/18 10:49 98.1 05/28/18 09:39 68 112/72 05/28/18 09:39 68 05/28/18 09:00 Nasal Cannula 2.0 05/28/18 08:00 98.1 68 21 112/72 (85) 97 05/28/18 07:35 65 18 Nasal Cannula 2.0 28 05/28/18 07:35 Nasal Cannula 2.0 28 05/28/18 07:35 98 Nasal Cannula 2.0 28 05/28/18 04:00 98.1 57 20 107/60 (76) 97 05/28/18 00:00 99.6 58 22 108/51 (70) 100 05/27/18 21:00 Nasal Cannula 2.0 05/27/18 20:59 75 128/74 05/27/18 20:19 99 Nasal Cannula 3.0 32 05/27/18 20:19 Nasal Cannula 3.0 32 05/27/18 20:18 81 23 Nasal Cannula 3.0 32 05/27/18 20:00 98.1 76 20 153/78 (103) 100 Intake and Output 05/27/18 05/28/18 18:59 06:59 Intake Total 490 ml 250 ml Output Total 400 ml 200 ml Balance 90 ml 50 ml Intake Oral 240 ml IV Total 250 ml 250 ml Output Urine Total 400 ml 200 ml # Bowel Movements 1 1 Laboratory Tests Test 05/28/18 06:40 White Blood Count 16.5 K/UL (4.8-10.8) H Red Blood Count 3.38 M/UL (4.70-6.10) L Hemoglobin 9.8 G/DL (14.2-18.0) L Hematocrit 30.7 % (42.0-52.0) L Mean Corpuscular Volume 91 FL (80-99) Mean Corpuscular Hemoglobin 29.1 PG (27.0-31.0) Mean Corpuscular Hemoglobin Concent 32.0 G/DL (32.0-36.0) Red Cell Distribution Width 13.3 % (11.6-14.8) Platelet Count 238 K/UL (150-450) Mean Platelet Volume 5.2 FL (6.5-10.1) L Neutrophils (%) (Auto) 77.6 % (45.0-75.0) H Lymphocytes (%) (Auto) 12.3 % (20.0-45.0) L Monocytes (%) (Auto) 9.0 % (1.0-10.0) Eosinophils (%) (Auto) 0.2 % (0.0-3.0) Basophils (%) (Auto) 0.9 % (0.0-2.0) Sodium Level 137 MMOL/L (136-145) Potassium Level 3.8 MMOL/L (3.5-5.1) Chloride Level 106 MMOL/L (98-107) Carbon Dioxide Level 26 MMOL/L (21-32) Anion Gap 5 mmol/L (5-15) Blood Urea Nitrogen 11 mg/dL (7-18) Creatinine 0.8 MG/DL (0.55-1.30) Estimat Glomerular Filtration Rate > 60 mL/min (>60) Glucose Level 95 MG/DL (74-106) Calcium Level 7.7 MG/DL (8.5-10.1) L Microbiology Date/Time Source Procedure Growth Status 05/27/18 10:28 Sputum AFB Specimen Processing Tissue - Final Resulted 05/27/18 10:28 Sputum Acid Fast Bacilli Smear - Final Resulted 05/27/18 10:28 Sputum Acid Fast Bacilli Culture Pending Resulted 05/26/18 14:35 Sputum AFB Specimen Processing Tissue - Final Resulted 05/26/18 14:35 Sputum Acid Fast Bacilli Smear - Final Resulted 05/26/18 14:35 Sputum Acid Fast Bacilli Culture Pending Resulted Objective HEAD AND NECK: Mild JVD. LUNGS: Coarse rhonchi. CARDIOVASCULAR: Irregular S1 and S2 with no murmur. ABDOMEN: Soft. EXTREMITIES: S/P Bilateral Amandeep Mart MD May 28, 2018 16:54
--- NOTE | 2018-05-28 17:07 | Internal Med Progress Note ---
Subjective Date of Service: May 28, 2018 Physician Name Daniel Jackson Attending Physician Pedro Caban MD Current Medications Medications (Trade) Dose Ordered Sig/Erlin Route PRN Reason Start Time Stop Time Status Last Admin Dose Admin Acetaminophen (Tylenol) 650 mg Q4H PRN ORAL Mild Pain/Temp > 100.5 05/26/18 16:45 06/11/18 16:44 Al Hydroxide/Mg Hydroxide (Mylanta) 15 ml Q6H PRN ORAL DYSPEPSIA 05/26/18 18:30 06/22/18 18:15 Amiodarone HCl (Cordarone) 200 mg DAILY ORAL 05/27/18 09:00 06/17/18 08:59 05/28/18 09:39 Chlorhexidine Gluconate (Yari-Hex 2%) 1 applic DAILY@2000 TOPIC 05/26/18 20:00 06/23/18 19:59 05/27/18 20:59 Dextrose/ Electrolytes 1,000 ml @ 50 mls/hr Q20H IV 05/28/18 08:57 06/27/18 08:56 05/28/18 09:39 Digoxin (Lanoxin) 0.125 mg DAILY ORAL 05/27/18 09:00 06/12/18 08:59 05/28/18 09:39 Diphenhydramine HCl (Benadryl) 25 mg Q8H PRN ORAL Itching/Pruritis 05/26/18 16:46 06/22/18 16:45 Docusate Sodium (Colace) 100 mg TWICE A DAY ORAL 05/26/18 18:00 06/22/18 17:59 05/28/18 09:38 Enoxaparin Sodium (Lovenox) 70 mg EVERY 12 HOURS SUBQ 05/27/18 21:00 06/26/18 20:59 05/28/18 12:12 Ethambutol HCl (Myambutol) 1,200 mg DAILY ORAL 05/27/18 09:00 06/25/18 13:59 05/28/18 09:00 Gabapentin (Neurontin) 100 mg THREE TIMES A DAY ORAL 05/26/18 18:00 06/11/18 17:59 05/28/18 13:20 Hydromorphone HCl (Dilaudid) 0.5 mg Q3H PRN IVP Pain Score 1-3 05/26/18 16:47 12/11/18 16:46 Hydromorphone HCl (Dilaudid) 1 mg Q3H PRN IVP pain score 4-6 05/26/18 16:46 05/30/18 16:45 Hydromorphone HCl (Dilaudid) 2 mg Q3H PRN IVP pain score 7-10 05/26/18 16:47 05/30/18 16:46 05/28/18 10:19 Isoniazid (Inh) 300 mg DAILY ORAL 05/27/18 09:00 06/25/18 13:59 05/28/18 09:37 Levofloxacin (Levaquin) 750 mg DAILY ORAL 05/27/18 09:00 06/02/18 13:00 05/28/18 09:38 Lorazepam (Ativan 2mg/ml 1ml) 1 mg Q4H PRN IV For Anxiety 05/26/18 16:47 05/30/18 16:46 Magnesium Hydroxide (Mom) 30 ml BIDPRN PRN ORAL Constipation 05/26/18 18:30 06/22/18 18:15 Metoprolol Tartrate (Lopressor) 50 mg Q12HR ORAL 05/26/18 21:00 06/11/18 20:59 05/28/18 09:39 Metronidazole (Flagyl) 500 mg Q8H ORAL 05/26/18 18:00 05/31/18 01:59 05/28/18 09:37 Ondansetron HCl (Zofran) 4 mg Q6H PRN IVP Nausea & Vomiting 05/26/18 18:30 06/22/18 18:15 Polyethylene Glycol (Miralax) 17 gm DAILY ORAL 05/27/18 09:00 06/16/18 10:59 05/28/18 09:37 Pyrazinamide (Pza) 1,500 mg DAILY ORAL 05/27/18 09:00 06/25/18 13:59 05/28/18 09:37 Pyridoxine HCl (Vitamin B6) 50 mg DAILY ORAL 05/27/18 09:00 06/25/18 13:59 05/28/18 09:38 Quetiapine Fumarate (SEROquel) 100 mg BEDTIME ORAL 05/26/18 21:00 06/11/18 20:59 05/27/18 21:00 Sennosides (Senokot) 8.6 mg BIDPRN PRN ORAL Constipation 05/26/18 18:30 06/22/18 18:15 Sodium Hypochlorite (Dakin's Quarter Strength) 1 applic DAILY TOPIC 05/27/18 09:00 06/25/18 16:00 05/28/18 09:43 Temazepam (Restoril) 7.5 mg HSPRN PRN ORAL Insomnia 05/26/18 20:45 05/30/18 20:44 Allergies: Coded Allergies: MILK (Verified Allergy, Unknown, 02/02/18) ROS Limited/Unobtainable: No Constitutional: Reports: no symptoms HEENT: Reports: no symptoms Cardiovascular: Reports: no symptoms Respiratory: Reports: no symptoms Gastrointestinal/Abdominal: Reports: no symptoms Genitourinary: Reports: no symptoms 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: Reports: no symptoms Subjective 68 YO A M admitted with altered mental status. Now sepsis and atrial fibrillation with rapid rate. Cover for Int [facility]-Dr Caban. ICU. 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 Objective Last Vital Signs Date Time Temp Pulse Resp B/P (MAP) Pulse Ox O2 Delivery O2 Flow Rate FiO2 05/28/18 16:00 98.3 53 14 86/48 (61) 97 05/28/18 09:00 Nasal Cannula 2.0 05/28/18 07:35 28 Laboratory Tests Test 05/28/18 06:40 White Blood Count 16.5 K/UL (4.8-10.8) H Red Blood Count 3.38 M/UL (4.70-6.10) L Hemoglobin 9.8 G/DL (14.2-18.0) L Hematocrit 30.7 % (42.0-52.0) L Mean Corpuscular Volume 91 FL (80-99) Mean Corpuscular Hemoglobin 29.1 PG (27.0-31.0) Mean Corpuscular Hemoglobin Concent 32.0 G/DL (32.0-36.0) Red Cell Distribution Width 13.3 % (11.6-14.8) Platelet Count 238 K/UL (150-450) Mean Platelet Volume 5.2 FL (6.5-10.1) L Neutrophils (%) (Auto) 77.6 % (45.0-75.0) H Lymphocytes (%) (Auto) 12.3 % (20.0-45.0) L Monocytes (%) (Auto) 9.0 % (1.0-10.0) Eosinophils (%) (Auto) 0.2 % (0.0-3.0) Basophils (%) (Auto) 0.9 % (0.0-2.0) Sodium Level 137 MMOL/L (136-145) Potassium Level 3.8 MMOL/L (3.5-5.1) Chloride Level 106 MMOL/L (98-107) Carbon Dioxide Level 26 MMOL/L (21-32) Anion Gap 5 mmol/L (5-15) Blood Urea Nitrogen 11 mg/dL (7-18) Creatinine 0.8 MG/DL (0.55-1.30) Estimat Glomerular Filtration Rate > 60 mL/min (>60) Glucose Level 95 MG/DL (74-106) Calcium Level 7.7 MG/DL (8.5-10.1) L Microbiology Date/Time Source Procedure Growth Status 05/27/18 10:28 Sputum AFB Specimen Processing Tissue - Final Resulted 05/27/18 10:28 Sputum Acid Fast Bacilli Smear - Final Resulted 05/27/18 10:28 Sputum Acid Fast Bacilli Culture Pending Resulted 05/26/18 14:35 Sputum AFB Specimen Processing Tissue - Final Resulted 05/26/18 14:35 Sputum Acid Fast Bacilli Smear - Final Resulted 05/26/18 14:35 Sputum Acid Fast Bacilli Culture Pending Resulted Intake and Output 05/27/18 05/28/18 18:59 06:59 Intake Total 490 ml 250 ml Output Total 400 ml 200 ml Balance 90 ml 50 ml Intake Oral 240 ml IV Total 250 ml 250 ml Output Urine Total 400 ml 200 ml # Bowel Movements 1 1 Objective General Appearance: alert, thin, agitated EENT: PERRL/EOMI, normal ENT inspection Neck: non-tender, normal alignment, supple, normal inspection Cardiovascular: normal peripheral pulses, normal rate, no gallop/murmur, no JVD , irregularly irregular Respiratory/Chest: chest wall non-tender, lungs clear, normal breath sounds, no respiratory distress, no accessory muscle use Abdomen: normal bowel sounds, non tender, soft, no organomegaly, no mass Extremities: normal range of motion, non-tender 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 (8) Sepsis Assessment & Plan: Continue cefepime and vanco per ID (9) UTI (urinary tract infection) Assessment & Plan: Mixed culture-continue vanco and cefepime per ID (10) Leukocytosis (11) Deep venous thrombosis of right femoral vein Assessment & Plan: D/C eliquis. Start lovenox SQ; D/C lovenox on Tuesday prior to surgery (12) Gangrene Assessment & Plan: S/P above the knee amputation Bilat lower ext 05/23/18 (13) Pneumonia Assessment & Plan: Cavitary lesion. See ID note Status: not improved Status Narrative Discharge planning Daniel Jackson MD May 28, 2018 17:07
[2018-05-28] MEDS: Dyna-Hex 2% Top Sol 2oz TOPIC SCH (19:51)
[2018-05-28 20:00] VITALS: BP 113/75
--- NOTE | 2018-05-28 22:37 | General Progress Note ---
Assessment/Plan Problem List: (1) Bipolar disorder ICD Codes: F31.9 - Bipolar disorder, unspecified SNOMED: 96659553 (2) encephalopathy Status: stable, progressing Assessment/Plan dc abilify start seroquel the pt lacks capacity to make decisions Subjective Date patient seen: May 27, 2018 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: Reports: anxiety, depressed Allergies: Coded Allergies: MILK (Verified Allergy, Unknown, 02/02/18) Subjective the pt is doing well no behaviors Objective Last 24 Hour Vital Signs Date Time Temp Pulse Resp B/P (MAP) Pulse Ox O2 Delivery O2 Flow Rate FiO2 05/28/18 21:00 65 113/72 05/28/18 19:44 Nasal Cannula 2.0 28 05/28/18 19:44 99 Nasal Cannula 2.0 28 05/28/18 19:43 68 17 Nasal Cannula 2.0 28 05/28/18 16:00 98.3 53 14 86/48 (61) 97 05/28/18 12:00 97.0 60 19 146/102 (117) 100 05/28/18 10:49 98.1 05/28/18 09:39 68 112/72 05/28/18 09:39 68 05/28/18 09:00 Nasal Cannula 2.0 05/28/18 08:00 98.1 68 21 112/72 (85) 97 05/28/18 07:35 65 18 Nasal Cannula 2.0 28 05/28/18 07:35 Nasal Cannula 2.0 28 05/28/18 07:35 98 Nasal Cannula 2.0 28 05/28/18 04:00 98.1 57 20 107/60 (76) 97 05/28/18 00:00 99.6 58 22 108/51 (70) 100 Intake and Output 05/27/18 05/28/18 19:00 07:00 Intake Total 490 ml 250 ml Output Total 400 ml 200 ml Balance 90 ml 50 ml Intake Oral 240 ml IV Total 250 ml 250 ml Output Urine Total 400 ml 200 ml # Bowel Movements 1 1 Laboratory Tests 05/28/18 06:40: White Blood Count 16.5H, Red Blood Count 3.38L, Hemoglobin 9.8L, Hematocrit 30.7L, Mean Corpuscular Volume 91, Mean Corpuscular Hemoglobin 29.1, Mean Corpuscular Hemoglobin Concent 32.0, Red Cell Distribution Width 13.3, Platelet Count 238, Mean Platelet Volume 5.2L, Neutrophils (%) (Auto) 77.6H, Lymphocytes (%) (Auto) 12.3L, Monocytes (%) (Auto) 9.0, Eosinophils (%) (Auto) 0.2, Basophils (%) (Auto) 0.9, Sodium Level 137, Potassium Level 3.8, Chloride Level 106, Carbon Dioxide Level 26, Anion Gap 5, Blood Urea Nitrogen 11, Creatinine 0.8, Estimat Glomerular Filtration Rate > 60, Glucose Level 95, Calcium Level 7.7L Height (Feet): 6 Height (Inches): 5.00 Weight (Pounds): 157 General Appearance: no apparent distress, alert, agitated Julissa Still MD May 28, 2018 22:37
--- NOTE | 2018-05-28 22:48 | General Progress Note ---
Assessment/Plan Problem List: (1) Bipolar disorder ICD Codes: F31.9 - Bipolar disorder, unspecified SNOMED: 57185465 (2) encephalopathy Assessment/Plan dc abilify start seroquel the pt lacks capacity to make decisions Subjective Date patient seen: May 28, 2018 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: Reports: anxiety Allergies: Coded Allergies: MILK (Verified Allergy, Unknown, 02/02/18) Subjective the pt is doing well no behaviors Objective Last 24 Hour Vital Signs Date Time Temp Pulse Resp B/P (MAP) Pulse Ox O2 Delivery O2 Flow Rate FiO2 05/28/18 21:00 65 113/72 05/28/18 19:44 Nasal Cannula 2.0 28 05/28/18 19:44 99 Nasal Cannula 2.0 28 05/28/18 19:43 68 17 Nasal Cannula 2.0 28 05/28/18 16:00 98.3 53 14 86/48 (61) 97 05/28/18 12:00 97.0 60 19 146/102 (117) 100 05/28/18 10:49 98.1 05/28/18 09:39 68 112/72 05/28/18 09:39 68 05/28/18 09:00 Nasal Cannula 2.0 05/28/18 08:00 98.1 68 21 112/72 (85) 97 05/28/18 07:35 65 18 Nasal Cannula 2.0 28 05/28/18 07:35 Nasal Cannula 2.0 28 05/28/18 07:35 98 Nasal Cannula 2.0 28 05/28/18 04:00 98.1 57 20 107/60 (76) 97 05/28/18 00:00 99.6 58 22 108/51 (70) 100 Intake and Output 05/27/18 05/28/18 19:00 07:00 Intake Total 490 ml 250 ml Output Total 400 ml 200 ml Balance 90 ml 50 ml Intake Oral 240 ml IV Total 250 ml 250 ml Output Urine Total 400 ml 200 ml # Bowel Movements 1 1 Laboratory Tests 05/28/18 06:40: White Blood Count 16.5H, Red Blood Count 3.38L, Hemoglobin 9.8L, Hematocrit 30.7L, Mean Corpuscular Volume 91, Mean Corpuscular Hemoglobin 29.1, Mean Corpuscular Hemoglobin Concent 32.0, Red Cell Distribution Width 13.3, Platelet Count 238, Mean Platelet Volume 5.2L, Neutrophils (%) (Auto) 77.6H, Lymphocytes (%) (Auto) 12.3L, Monocytes (%) (Auto) 9.0, Eosinophils (%) (Auto) 0.2, Basophils (%) (Auto) 0.9, Sodium Level 137, Potassium Level 3.8, Chloride Level 106, Carbon Dioxide Level 26, Anion Gap 5, Blood Urea Nitrogen 11, Creatinine 0.8, Estimat Glomerular Filtration Rate > 60, Glucose Level 95, Calcium Level 7.7L Height (Feet): 6 Height (Inches): 5.00 Weight (Pounds): 157 Julissa Still MD May 28, 2018 22:48
[2018-05-29] VITALS: BP 114/60
[2018-05-29] MEDS: metroNIDAZOLE 500mg tab ORAL SCH ×3 (02:00→18:02)
[2018-05-29 04:00] VITALS: BP 130/82
[2018-05-29] MEDS: D5 1/2NS w/KCL 10meq 1,000 ML IV SCH (06:09)
[2018-05-29 06:28] LABS: BASOPHILS % (AUTO) 0.7 % (0.0-2.0); HEMATOCRIT 26.2 % (42.0-52.0); HEMOGLOBIN 8.4 G/DL (14.2-18.0); LYMPHOCYTES % (AUTO) 13.6 % (20.0-45.0); MEAN CORPUSCULAR VOLUME 90 FL (80-99); MONOCYTES % (AUTO) 9.8 % (1.0-10.0); NEUTROPHILS % (AUTO) 74.9 % (45.0-75.0); PLATELET COUNT 201 K/UL (150-450); RED BLOOD COUNT 2.92 M/UL (4.70-6.10); RED CELL DISTRIBUTION WIDTH 13.5 % (11.6-14.8); WHITE BLOOD COUNT 10.7 K/UL (4.8-10.8)
[2018-05-29 06:56] LABS: ALANINE AMINOTRANSFERASE 11 U/L (12-78); ALBUMIN/GLOBULIN RATIO 0.2 (1.0-2.7); ALKALINE PHOSPHATASE 119 U/L (46-116); ANION GAP 4 mmol/L (5-15); ASPARTATE AMINO TRANSFERASE 17 U/L (15-37); BILIRUBIN,TOTAL 0.3 MG/DL (0.2-1.0); BLOOD UREA NITROGEN 13 mg/dL (7-18); CALCIUM 7.6 MG/DL (8.5-10.1); CARBON DIOXIDE 28 MMOL/L (21-32); CHLORIDE 108 MMOL/L (98-107); CREATININE 0.7 MG/DL (0.55-1.30); POTASSIUM 3.6 MMOL/L (3.5-5.1); SODIUM 139 MMOL/L (136-145)
[2018-05-29 08:00] VITALS: BP 138/61
[2018-05-29] MEDS: Miralax 17gm pkt ORAL SCH ×2 (09:00→09:01)
[2018-05-29] MEDS: Pyridoxine 50mg tab ORAL SCH (09:02)
[2018-05-29] MEDS: Isoniazid 300mg tab ORAL SCH (09:03)
[2018-05-29] MEDS: Digoxin 0.125mg tab ORAL SCH (09:03)
[2018-05-29] MEDS: Docusate 100mg cap ORAL SCH ×2 (09:03→17:40)
[2018-05-29] MEDS: Amiodarone 200mg tab ORAL SCH (09:04)
[2018-05-29] MEDS: Metoprolol Tartrate 50mg tab ORAL SCH ×2 (09:04→21:11)
[2018-05-29] MEDS: Dakin's 0.125% Soln (Quarter Strength) 16oz TOPIC SCH (09:06)
[2018-05-29] MEDS: Enoxaparin Sodium 300mg/3ml vial SUBQ SCH ×2 (09:21→21:13)
[2018-05-29] MEDS: LORazepam Inj 2mg/ml 1ml IV PRN (10:57)
--- NOTE | 2018-05-29 11:53 | Diagnostic Imaging Report ---
Indication: Dyspnea Comparison: 05/25/2018 A single view chest radiograph was obtained. Findings: PICC line is stable. Cardiomegaly is stable. A left pleural effusion suspected. Mild congestion suspected. IMPRESSION: No significant change from the prior exam. Mild CHF and left pleural effusion
[2018-05-29 12:00] VITALS: BP 120/64
--- NOTE | 2018-05-29 12:41 | Infectious Diseases Prog Note ---
Assessment/Plan Assessment/Plan - 68 yo male who was transferred from [place] where he initially presented for AMS from [facility]. Low grade fever, SP Leukocytosis ,recurrent- SP Small lung cavitary lesion/ PNA- suspect likely to aspiration; lower suspicion for TB and/or fungal etiologies -CT c/a/p: 10 mm opacity in the peripheral anterolateral right upper lobe with small central cavitation. Patchy groundglass opacity in the posterior right upper lobe. Suspect that these represent inflammatory/infectious lesions, but neoplastic etiology of either is certainly possible. Large left and moderate right pleural effusions. Resultant compressive atelectasis of portions of the lower lobes. Equivocal distal esophageal wall thickening, could indicate esophagitis if real -sp cx usual resp noah -AFB sp cx; smear neg x4; MTB PCR p -TB spot + -Neg Crag serum, legionella ag urine Hep C + ab- r/o actice chronic hepaitis C -CT abd- liver unremarkable Sepsis 2/2 to bacteremia (at OSH) Likely source is skin ulcer Blood Cx 05/12/18 at [place] [facility] -Bcx 05/12 and (here) NTD 2d echo: no vegetations 05/15 CXR: Right midlung nodule. Absence of this finding on previous study makes this more likely to be a focus of inflammation, but rapidly growing neoplasm not excludable. Left basilar hazy opacity. Most likely a moderate to large pleural effusion.Component of infiltrate or atelectasis is also possible 05/12 CXR: Asymmetric ill-defined confluent groundglass opacity within the left mid/inferior lung, of uncertain etiology. B/l LE necrotic ulcer and toes- acute on chronci, ischemic w/ likely superinfection- likely non-salvageable per surgery -05/23 SP B/l BKA Afib w/ RVR AMS Likely secondary to sepsis Cerebrovascular accident. Hypertension. Sacral decubitus ulcers. Bipolar disorder. Coronary artery disease. Plan - Continue Levaquin #4 (abx d#18) and flagyl #11 for cavitary/aspiration PNA -low threshold to switch Cefepime and Flagyl to Meropenem if decompensates -05/26 SP IV Vancomycin #15, Cefepime #15 -Per Dept of Public health and to aid on discharge planning back to , will cont empiric TB regimen with DONN (started on 05/26- ); Levaquin instead of Rifampin given multiple drug interactions of Rifampin (w/ Amiodarone, quetiapine , metoprolol) -Dept of wants to treat empirically until final AFB culture results -monitor LFTs -EGK monitor QTc -Airborne isolation -f/u AFB sp cx,MTB PCR x1 -f/u cocci ab, fungal sp cx, - f/u Blood Cx - Wound care - Monitor CBC and Temps -f/u sp cx, u/a w/ reflex -Cdiff if diarrhea -Obtain records from [facility] for BCx results -Sx f/u -CBC, CMP am -Hep C VL, Hep A IgG, Hebc IgG and Hep Bs ab Thank you for this consult. We will continue to follow the patient during this hospitalization. Discussed withRN Subjective Allergies: Coded Allergies: MILK (Verified Allergy, Unknown, 02/02/18) Subjective afebrile leukocytosis Objective Vital Signs Last 24 Hour Vital Signs Date Time Temp Pulse Resp B/P (MAP) Pulse Ox O2 Delivery O2 Flow Rate FiO2 05/29/18 12:00 97.3 96 20 120/64 (82) 93 05/29/18 12:00 97.3 96 20 120/64 (82) 94 05/29/18 11:27 97.7 05/29/18 09:27 97.7 05/29/18 09:04 63 138/61 05/29/18 09:03 63 05/29/18 09:00 Nasal Cannula 2.0 05/29/18 08:00 97.7 63 20 138/61 (86) 97 05/29/18 04:00 97.0 64 20 130/82 (98) 100 05/29/18 00:00 97.0 64 20 114/60 (78) 100 05/28/18 21:00 65 113/72 05/28/18 21:00 Nasal Cannula 2.0 05/28/18 20:00 98.1 65 20 113/75 (88) 95 05/28/18 19:44 Nasal Cannula 2.0 28 05/28/18 19:44 99 Nasal Cannula 2.0 28 05/28/18 19:43 68 17 Nasal Cannula 2.0 28 05/28/18 16:00 98.3 53 14 86/48 (61) 97 Height (Feet): 6 Height (Inches): 5.00 Weight (Pounds): 102 Objective Gen: NAD. Mumbling HEENT: NCAT, MMM, EOMI, No Oral lesion, no scleral icterus NECK: full range of motion, supple, no meningismus, No LAD, No JVD LUNGS: CTAB, No W/C, No Accessory muscle use CARDS: RRR, S1, S2, No M/R/G ABD: Soft, NT, ND, No R/G, + BS, No HSM, No Masses : Deferred Ext: C/C/E, Pulses 2+ B/L (DP, Rad) NEURO: A/O x 0, Strength and Sensation Grossly intact PSYCH: mood/affect normal SKIN: Left foot wound. No purulent drainage, Feet now bandaged Microbiology Date/Time Source Procedure Growth Status 05/27/18 10:28 Sputum AFB Specimen Processing Tissue - Final Resulted 05/27/18 10:28 Sputum Acid Fast Bacilli Smear - Final Resulted 05/27/18 10:28 Sputum Acid Fast Bacilli Culture Pending Resulted 05/26/18 14:35 Sputum AFB Specimen Processing Tissue - Final Resulted 05/26/18 14:35 Sputum Acid Fast Bacilli Smear - Final Resulted 05/26/18 14:35 Sputum Acid Fast Bacilli Culture Pending Resulted Laboratory Tests Test 05/29/18 06:00 White Blood Count 10.7 K/UL (4.8-10.8) Red Blood Count 2.92 M/UL (4.70-6.10) L Hemoglobin 8.4 G/DL (14.2-18.0) L Hematocrit 26.2 % (42.0-52.0) L Mean Corpuscular Volume 90 FL (80-99) Mean Corpuscular Hemoglobin 28.9 PG (27.0-31.0) Mean Corpuscular Hemoglobin Concent 32.1 G/DL (32.0-36.0) Red Cell Distribution Width 13.5 % (11.6-14.8) Platelet Count 201 K/UL (150-450) Mean Platelet Volume 5.4 FL (6.5-10.1) L Neutrophils (%) (Auto) 74.9 % (45.0-75.0) Lymphocytes (%) (Auto) 13.6 % (20.0-45.0) L Monocytes (%) (Auto) 9.8 % (1.0-10.0) Eosinophils (%) (Auto) 1.0 % (0.0-3.0) Basophils (%) (Auto) 0.7 % (0.0-2.0) Sodium Level 139 MMOL/L (136-145) Potassium Level 3.6 MMOL/L (3.5-5.1) Chloride Level 108 MMOL/L (98-107) H Carbon Dioxide Level 28 MMOL/L (21-32) Anion Gap 4 mmol/L (5-15) L Blood Urea Nitrogen 13 mg/dL (7-18) Creatinine 0.7 MG/DL (0.55-1.30) Estimat Glomerular Filtration Rate > 60 mL/min (>60) Glucose Level 96 MG/DL (74-106) Calcium Level 7.6 MG/DL (8.5-10.1) L Total Bilirubin 0.3 MG/DL (0.2-1.0) Aspartate Amino Transf (AST/SGOT) 17 U/L (15-37) Alanine Aminotransferase (ALT/SGPT) 11 U/L (12-78) L Alkaline Phosphatase 119 U/L (46-116) H Total Protein 5.5 G/DL (6.4-8.2) L Albumin 1.0 G/DL (3.4-5.0) L Globulin 4.5 g/dL Albumin/Globulin Ratio 0.2 (1.0-2.7) L Current Medications Medications (Trade) Dose Ordered Sig/Erlin Route PRN Reason Start Time Stop Time Status Last Admin Dose Admin Acetaminophen (Tylenol) 650 mg Q4H PRN ORAL Mild Pain/Temp > 100.5 05/26/18 16:45 06/11/18 16:44 05/29/18 10:57 Al Hydroxide/Mg Hydroxide (Mylanta) 15 ml Q6H PRN ORAL DYSPEPSIA 05/26/18 18:30 06/22/18 18:15 Amiodarone HCl (Cordarone) 200 mg DAILY ORAL 05/27/18 09:00 06/17/18 08:59 05/29/18 09:04 Chlorhexidine Gluconate (Yari-Hex 2%) 1 applic DAILY@1999 TOPIC 05/26/18 20:00 06/23/18 19:59 05/28/18 19:51 Dextrose/ Electrolytes 1,000 ml @ 50 mls/hr Q20H IV 05/28/18 08:57 06/27/18 08:56 05/29/18 06:09 Digoxin (Lanoxin) 0.125 mg DAILY ORAL 05/27/18 09:00 06/12/18 08:59 05/29/18 09:03 Diphenhydramine HCl (Benadryl) 25 mg Q8H PRN ORAL Itching/Pruritis 05/26/18 16:46 06/22/18 16:45 Docusate Sodium (Colace) 100 mg TWICE A DAY ORAL 05/26/18 18:00 06/22/18 17:59 05/29/18 09:03 Enoxaparin Sodium (Lovenox) 70 mg EVERY 12 HOURS SUBQ 05/27/18 21:00 06/26/18 20:59 05/29/18 09:21 Ethambutol HCl (Myambutol) 1,200 mg DAILY ORAL 05/27/18 09:00 06/25/18 13:59 05/29/18 09:04 Gabapentin (Neurontin) 100 mg THREE TIMES A DAY ORAL 05/26/18 18:00 06/11/18 17:59 05/29/18 09:19 Hydromorphone HCl (Dilaudid) 0.5 mg Q3H PRN IVP Pain Score 1-3 05/26/18 16:47 05/30/18 16:46 Hydromorphone HCl (Dilaudid) 1 mg Q3H PRN IVP pain score 4-6 05/26/18 16:46 05/30/18 16:45 05/28/18 19:49 Hydromorphone HCl (Dilaudid) 2 mg Q3H PRN IVP pain score 7-10 05/26/18 16:47 05/30/18 16:46 05/29/18 08:57 Isoniazid (Inh) 300 mg DAILY ORAL 05/27/18 09:00 06/25/18 13:59 05/29/18 09:03 Levofloxacin (Levaquin) 750 mg DAILY ORAL 05/27/18 09:00 06/02/18 13:00 05/29/18 09:01 Lorazepam (Ativan 2mg/ml 1ml) 1 mg Q4H PRN IV For Anxiety 05/26/18 16:47 05/30/18 16:46 05/29/18 10:57 Magnesium Hydroxide (Mom) 30 ml BIDPRN PRN ORAL Constipation 05/26/18 18:30 06/22/18 18:15 Metoprolol Tartrate (Lopressor) 50 mg Q12HR ORAL 05/26/18 21:00 06/11/18 20:59 05/29/18 09:04 Metronidazole (Flagyl) 500 mg Q8H ORAL 05/26/18 18:00 05/31/18 01:59 05/29/18 09:21 Ondansetron HCl (Zofran) 4 mg Q6H PRN IVP Nausea & Vomiting 05/26/18 18:30 06/22/18 18:15 Polyethylene Glycol (Miralax) 17 gm DAILY ORAL 05/27/18 09:00 06/16/18 10:59 05/28/18 09:37 Pyrazinamide (Pza) 1,500 mg DAILY ORAL 05/27/18 09:00 06/25/18 13:59 05/29/18 09:01 Pyridoxine HCl (Vitamin B6) 50 mg DAILY ORAL 05/27/18 09:00 06/25/18 13:59 05/29/18 09:02 Quetiapine Fumarate (SEROquel) 100 mg BEDTIME ORAL 05/26/18 21:00 06/11/18 20:59 05/28/18 20:56 Sennosides (Senokot) 8.6 mg BIDPRN PRN ORAL Constipation 05/26/18 18:30 06/22/18 18:15 Sodium Hypochlorite (Dakin's Quarter Strength) 1 applic DAILY TOPIC 05/27/18 09:00 06/25/18 16:00 05/29/18 09:06 Temazepam (Restoril) 7.5 mg HSPRN PRN ORAL Insomnia 05/26/18 20:45 05/30/18 20:44 Alma Elkins M.D. May 29, 2018 12:41
--- NOTE | 2018-05-29 12:59 | Pulmonology Progress Note ---
Assessment/Plan Problems: (1) Sepsis (2) Atrial fibrillation (3) Decubitus skin ulcer (4) Bipolar disorder (5) CAD (coronary artery disease) (6) HTN (hypertension) (7) CVA (cerebral vascular accident) Assessment/Plan wbc is finally normal cxr reviewed, unchanged iv abx wound care f/u cultures monitor BP watch heart rate dvt prophylaxis symptomatic treatment Subjective ROS Limited/Unobtainable: No Allergies: Coded Allergies: MILK (Verified Allergy, Unknown, 02/02/18) Objective Last 24 Hour Vital Signs Date Time Temp Pulse Resp B/P (MAP) Pulse Ox O2 Delivery O2 Flow Rate FiO2 05/29/18 12:00 97.3 96 20 120/64 (82) 93 05/29/18 12:00 97.3 96 20 120/64 (82) 94 05/29/18 11:27 97.7 05/29/18 09:27 97.7 05/29/18 09:04 63 138/61 05/29/18 09:03 63 05/29/18 09:00 Nasal Cannula 2.0 05/29/18 08:00 97.7 63 20 138/61 (86) 97 05/29/18 04:00 97.0 64 20 130/82 (98) 100 05/29/18 00:00 97.0 64 20 114/60 (78) 100 05/28/18 21:00 65 113/72 05/28/18 21:00 Nasal Cannula 2.0 05/28/18 20:00 98.1 65 20 113/75 (88) 95 05/28/18 19:44 Nasal Cannula 2.0 28 05/28/18 19:44 99 Nasal Cannula 2.0 28 05/28/18 19:43 68 17 Nasal Cannula 2.0 28 05/28/18 16:00 98.3 53 14 86/48 (61) 97 Intake and Output 05/28/18 05/29/18 19:00 07:00 Intake Total 590 ml 610 ml Output Total 300 ml 250 ml Balance 290 ml 360 ml Intake Oral 240 ml 60 ml IV Total 350 ml 550 ml Output Urine Total 300 ml 250 ml # Voids 1 # Bowel Movements 1 Objective General Appearance: WD/WN HEENT: normocephalic Respiratory/Chest: chest wall non-tender, lungs clear, normal breath sounds Cardiovascular: normal peripheral pulses, normal rate Abdomen: normal bowel sounds, soft, non tender Genitourinary: normal external genitalia Extremities: s/p amputation Skin: no rash Microbiology Date/Time Source Procedure Growth Status 05/27/18 10:28 Sputum AFB Specimen Processing Tissue - Final Resulted 05/27/18 10:28 Sputum Acid Fast Bacilli Smear - Final Resulted 05/27/18 10:28 Sputum Acid Fast Bacilli Culture Pending Resulted 05/26/18 14:35 Sputum AFB Specimen Processing Tissue - Final Resulted 05/26/18 14:35 Sputum Acid Fast Bacilli Smear - Final Resulted 05/26/18 14:35 Sputum Acid Fast Bacilli Culture Pending Resulted Laboratory Tests 05/29/18 06:00: White Blood Count 10.7, Red Blood Count 2.92L, Hemoglobin 8.4L, Hematocrit 26.2L , Mean Corpuscular Volume 90, Mean Corpuscular Hemoglobin 28.9, Mean Corpuscular Hemoglobin Concent 32.1, Red Cell Distribution Width 13.5, Platelet Count 201, Mean Platelet Volume 5.4L, Neutrophils (%) (Auto) 74.9, Lymphocytes ( %) (Auto) 13.6L, Monocytes (%) (Auto) 9.8, Eosinophils (%) (Auto) 1.0, Basophils (%) (Auto) 0.7, Sodium Level 139, Potassium Level 3.6, Chloride Level 108H, Carbon Dioxide Level 28, Anion Gap 4L, Blood Urea Nitrogen 13, Creatinine 0.7, Estimat Glomerular Filtration Rate > 60, Glucose Level 96, Calcium Level 7.6L, Total Bilirubin 0.3, Aspartate Amino Transf (AST/SGOT) 17, Alanine Aminotransferase (ALT/SGPT) 11L, Alkaline Phosphatase 119H, Total Protein 5.5L, Albumin 1.0L, Globulin 4.5, Albumin/Globulin Ratio 0.2L Current Medications Medications (Trade) Dose Ordered Sig/Erlin Route PRN Reason Start Time Stop Time Status Last Admin Dose Admin Acetaminophen (Tylenol) 650 mg Q4H PRN ORAL Mild Pain/Temp > 100.5 05/26/18 16:45 06/11/18 16:44 05/29/18 10:57 Al Hydroxide/Mg Hydroxide (Mylanta) 15 ml Q6H PRN ORAL DYSPEPSIA 05/26/18 18:30 06/22/18 18:15 Amiodarone HCl (Cordarone) 200 mg DAILY ORAL 05/27/18 09:00 06/17/18 08:59 05/29/18 09:04 Chlorhexidine Gluconate (Yari-Hex 2%) 1 applic DAILY@2000 TOPIC 05/26/18 20:00 06/23/18 19:59 05/28/18 19:51 Dextrose/ Electrolytes 1,000 ml @ 50 mls/hr Q20H IV 05/28/18 08:57 06/27/18 08:56 05/29/18 06:09 Digoxin (Lanoxin) 0.125 mg DAILY ORAL 05/27/18 09:00 06/12/18 08:59 05/29/18 09:03 Diphenhydramine HCl (Benadryl) 25 mg Q8H PRN ORAL Itching/Pruritis 05/26/18 16:46 06/22/18 16:45 Docusate Sodium (Colace) 100 mg TWICE A DAY ORAL 05/26/18 18:00 06/22/18 17:59 05/29/18 09:03 Enoxaparin Sodium (Lovenox) 70 mg EVERY 12 HOURS SUBQ 05/27/18 21:00 06/26/18 20:59 05/29/18 09:21 Ethambutol HCl (Myambutol) 1,200 mg DAILY ORAL 05/27/18 09:00 06/25/18 13:59 05/29/18 09:04 Gabapentin (Neurontin) 100 mg THREE TIMES A DAY ORAL 05/26/18 18:00 06/11/18 17:59 05/29/18 09:19 Hydromorphone HCl (Dilaudid) 0.5 mg Q3H PRN IVP Pain Score 1-3 05/26/18 16:47 05/30/18 16:46 Hydromorphone HCl (Dilaudid) 1 mg Q3H PRN IVP pain score 4-6 05/26/18 16:46 05/30/18 16:45 05/28/18 19:49 Hydromorphone HCl (Dilaudid) 2 mg Q3H PRN IVP pain score 7-10 05/26/18 16:47 05/30/18 16:46 05/29/18 08:57 Isoniazid (Inh) 300 mg DAILY ORAL 05/27/18 09:00 1/6/19 13:59 05/29/18 09:03 Levofloxacin (Levaquin) 750 mg DAILY ORAL 05/27/18 09:00 06/02/18 13:00 05/29/18 09:01 Lorazepam (Ativan 2mg/ml 1ml) 1 mg Q4H PRN IV For Anxiety 05/26/18 16:47 05/30/18 16:46 05/29/18 10:57 Magnesium Hydroxide (Mom) 30 ml BIDPRN PRN ORAL Constipation 05/26/18 18:30 06/22/18 18:15 Metoprolol Tartrate (Lopressor) 50 mg Q12HR ORAL 05/26/18 21:00 06/11/18 20:59 05/29/18 09:04 Metronidazole (Flagyl) 500 mg Q8H ORAL 05/26/18 18:00 05/31/18 01:59 05/29/18 09:21 Ondansetron HCl (Zofran) 4 mg Q6H PRN IVP Nausea & Vomiting 05/26/18 18:30 06/22/18 18:15 Polyethylene Glycol (Miralax) 17 gm DAILY ORAL 05/27/18 09:00 06/16/18 10:59 05/28/18 09:37 Pyrazinamide (Pza) 1,500 mg DAILY ORAL 05/27/18 09:00 06/25/18 13:59 05/29/18 09:01 Pyridoxine HCl (Vitamin B6) 50 mg DAILY ORAL 05/27/18 09:00 06/25/18 13:59 05/29/18 09:02 Quetiapine Fumarate (SEROquel) 100 mg BEDTIME ORAL 05/26/18 21:00 06/11/18 20:59 05/28/18 20:56 Sennosides (Senokot) 8.6 mg BIDPRN PRN ORAL Constipation 05/26/18 18:30 06/22/18 18:15 Sodium Hypochlorite (Dakin's Quarter Strength) 1 applic DAILY TOPIC 05/27/18 09:00 06/25/18 16:00 05/29/18 09:06 Temazepam (Restoril) 7.5 mg HSPRN PRN ORAL Insomnia 05/26/18 20:45 05/30/18 20:44 Minerva Montesinos MD May 29, 2018 12:59
--- NOTE | 2018-05-29 14:07 | General Progress Note ---
Assessment/Plan Problem List: (1) Bipolar disorder ICD Codes: F31.9 - Bipolar disorder, unspecified SNOMED: 54892367 (2) encephalopathy Status: stable, progressing Assessment/Plan dc abilify start seroquel the pt lacks capacity to make decisions Subjective 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: Reports: anxiety Allergies: Coded Allergies: MILK (Verified Allergy, Unknown, 02/02/18) Subjective the pt is doing well no agitation still in isolation Objective Last 24 Hour Vital Signs Date Time Temp Pulse Resp B/P (MAP) Pulse Ox O2 Delivery O2 Flow Rate FiO2 05/29/18 12:00 97.3 96 20 120/64 (82) 93 05/29/18 12:00 97.3 96 20 120/64 (82) 94 05/29/18 11:27 97.7 05/29/18 09:27 97.7 05/29/18 09:04 63 138/61 05/29/18 09:03 63 05/29/18 09:00 Nasal Cannula 2.0 05/29/18 08:00 97.7 63 20 138/61 (86) 97 05/29/18 04:00 97.0 64 20 130/82 (98) 100 05/29/18 00:00 97.0 64 20 114/60 (78) 100 05/28/18 21:00 65 113/72 05/28/18 21:00 Nasal Cannula 2.0 05/28/18 20:00 98.1 65 20 113/75 (88) 95 05/28/18 19:44 Nasal Cannula 2.0 28 05/28/18 19:44 99 Nasal Cannula 2.0 28 05/28/18 19:43 68 17 Nasal Cannula 2.0 28 05/28/18 16:00 98.3 53 14 86/48 (61) 97 Intake and Output 05/28/18 05/29/18 19:00 07:00 Intake Total 590 ml 610 ml Output Total 300 ml 250 ml Balance 290 ml 360 ml Intake Oral 240 ml 60 ml IV Total 350 ml 550 ml Output Urine Total 300 ml 250 ml # Voids 1 # Bowel Movements 1 Laboratory Tests 05/29/18 06:00: White Blood Count 10.7, Red Blood Count 2.92L, Hemoglobin 8.4L, Hematocrit 26.2L , Mean Corpuscular Volume 90, Mean Corpuscular Hemoglobin 28.9, Mean Corpuscular Hemoglobin Concent 32.1, Red Cell Distribution Width 13.5, Platelet Count 201, Mean Platelet Volume 5.4L, Neutrophils (%) (Auto) 74.9, Lymphocytes ( %) (Auto) 13.6L, Monocytes (%) (Auto) 9.8, Eosinophils (%) (Auto) 1.0, Basophils (%) (Auto) 0.7, Sodium Level 139, Potassium Level 3.6, Chloride Level 108H, Carbon Dioxide Level 28, Anion Gap 4L, Blood Urea Nitrogen 13, Creatinine 0.7, Estimat Glomerular Filtration Rate > 60, Glucose Level 96, Calcium Level 7.6L, Total Bilirubin 0.3, Aspartate Amino Transf (AST/SGOT) 17, Alanine Aminotransferase (ALT/SGPT) 11L, Alkaline Phosphatase 119H, Total Protein 5.5L, Albumin 1.0L, Globulin 4.5, Albumin/Globulin Ratio 0.2L Height (Feet): 6 Height (Inches): 5.00 Weight (Pounds): 102 General Appearance: no apparent distress, alert Julissa Still MD May 29, 2018 14:07
[2018-05-29] MEDS ORDERED: Isovue-300 100ml vial INJ PRN (15:00)
[2018-05-29 15:33] LABS: BASOPHILS % (AUTO) 1.2 % (0.0-2.0); EOSINOPHILS % (AUTO) 0.7 % (0.0-3.0); HEMATOCRIT 29.7 % (42.0-52.0); HEMOGLOBIN 9.5 G/DL (14.2-18.0); LYMPHOCYTES % (AUTO) 10.4 % (20.0-45.0); MEAN CORPUSCULAR VOLUME 90 FL (80-99); MONOCYTES % (AUTO) 9.2 % (1.0-10.0); NEUTROPHILS % (AUTO) 78.5 % (45.0-75.0); PLATELET COUNT 213 K/UL (150-450); RED BLOOD COUNT 3.29 M/UL (4.70-6.10); RED CELL DISTRIBUTION WIDTH 13.1 % (11.6-14.8); WHITE BLOOD COUNT 13.8 K/UL (4.8-10.8)
[2018-05-29 15:51] VITALS: BP 139/91
--- NOTE | 2018-05-29 17:54 | Cardiac Electrophysiology PN ---
Assessment/Plan Assessment/Plan 1. Paroxysmal Atrial fibrillation and flutter with RVR Continue digoxin 0.125 daily, metoprolol 50 bid and Amiodarone 200 daily. On Lovenox 70 b.i.d. 2. Borderline hypotension. Resolved 3. Fever, cough and sepsis, on antibiotic and in respiratory isolation. 4. History of dementia and severe psychosis, on Seroquel. 5. Severe bilateral leg ulcers and sacral decubitus. S/P Bilateral AKA by Dr. Enrrique GERMAN RN Subjective Subjective Still in resp isolation awaiting last AFB. Objective Last 24 Hour Vital Signs Date Time Temp Pulse Resp B/P (MAP) Pulse Ox O2 Delivery O2 Flow Rate FiO2 05/29/18 16:02 Nasal Cannula 2.0 05/29/18 15:51 97.7 60 18 139/91 (107) 97 05/29/18 14:44 97.3 05/29/18 12:00 97.3 96 20 120/64 (82) 93 05/29/18 12:00 97.3 96 20 120/64 (82) 94 05/29/18 11:27 97.7 05/29/18 09:04 63 138/61 05/29/18 09:03 63 05/29/18 09:00 Nasal Cannula 2.0 05/29/18 08:00 97.7 63 20 138/61 (86) 97 05/29/18 04:00 97.0 64 20 130/82 (98) 100 05/29/18 00:00 97.0 64 20 114/60 (78) 100 05/28/18 21:00 65 113/72 05/28/18 21:00 Nasal Cannula 2.0 05/28/18 20:00 98.1 65 20 113/75 (88) 95 05/28/18 19:44 Nasal Cannula 2.0 28 05/28/18 19:44 99 Nasal Cannula 2.0 28 05/28/18 19:43 68 17 Nasal Cannula 2.0 28 Intake and Output 05/28/18 05/29/18 19:00 07:00 Intake Total 590 ml 610 ml Output Total 300 ml 250 ml Balance 290 ml 360 ml Intake Oral 240 ml 60 ml IV Total 350 ml 550 ml Output Urine Total 300 ml 250 ml # Voids 1 # Bowel Movements 1 Laboratory Tests Test 05/29/18 06:00 05/29/18 15:00 White Blood Count 10.7 K/UL (4.8-10.8) 13.8 K/UL (4.8-10.8) H Red Blood Count 2.92 M/UL (4.70-6.10) L 3.29 M/UL (4.70-6.10) L Hemoglobin 8.4 G/DL (14.2-18.0) L 9.5 G/DL (14.2-18.0) L Hematocrit 26.2 % (42.0-52.0) L 29.7 % (42.0-52.0) L Mean Corpuscular Volume 90 FL (80-99) 90 FL (80-99) Mean Corpuscular Hemoglobin 28.9 PG (27.0-31.0) 28.8 PG (27.0-31.0) Mean Corpuscular Hemoglobin Concent 32.1 G/DL (32.0-36.0) 31.9 G/DL (32.0-36.0) L Red Cell Distribution Width 13.5 % (11.6-14.8) 13.1 % (11.6-14.8) Platelet Count 201 K/UL (150-450) 213 K/UL (150-450) Mean Platelet Volume 5.4 FL (6.5-10.1) L 5.6 FL (6.5-10.1) L Neutrophils (%) (Auto) 74.9 % (45.0-75.0) 78.5 % (45.0-75.0) H Lymphocytes (%) (Auto) 13.6 % (20.0-45.0) L 10.4 % (20.0-45.0) L Monocytes (%) (Auto) 9.8 % (1.0-10.0) 9.2 % (1.0-10.0) Eosinophils (%) (Auto) 1.0 % (0.0-3.0) 0.7 % (0.0-3.0) Basophils (%) (Auto) 0.7 % (0.0-2.0) 1.2 % (0.0-2.0) Sodium Level 139 MMOL/L (136-145) Potassium Level 3.6 MMOL/L (3.5-5.1) Chloride Level 108 MMOL/L (98-107) H Carbon Dioxide Level 28 MMOL/L (21-32) Anion Gap 4 mmol/L (5-15) L Blood Urea Nitrogen 13 mg/dL (7-18) Creatinine 0.7 MG/DL (0.55-1.30) Estimat Glomerular Filtration Rate > 60 mL/min (>60) Glucose Level 96 MG/DL (74-106) Calcium Level 7.6 MG/DL (8.5-10.1) L Total Bilirubin 0.3 MG/DL (0.2-1.0) Aspartate Amino Transf (AST/SGOT) 17 U/L (15-37) Alanine Aminotransferase (ALT/SGPT) 11 U/L (12-78) L Alkaline Phosphatase 119 U/L (46-116) H Total Protein 5.5 G/DL (6.4-8.2) L Albumin 1.0 G/DL (3.4-5.0) L Globulin 4.5 g/dL Albumin/Globulin Ratio 0.2 (1.0-2.7) L Microbiology Date/Time Source Procedure Growth Status 05/27/18 10:28 Sputum AFB Specimen Processing Tissue - Final Resulted 05/27/18 10:28 Sputum Acid Fast Bacilli Smear - Final Resulted 05/27/18 10:28 Sputum Acid Fast Bacilli Culture Pending Resulted Objective HEAD AND NECK: Mild JVD. LUNGS: Coarse rhonchi. CARDIOVASCULAR: Irregular S1 and S2 with no murmur. ABDOMEN: Soft. EXTREMITIES: S/P Bilateral Amandeep Mart MD May 29, 2018 17:54
--- NOTE | 2018-05-29 19:40 | Internal Med Progress Note ---
Subjective Date of Service: May 29, 2018 Physician Name JacksonDaniel Attending Physician Pedro Caban MD Current Medications Medications (Trade) Dose Ordered Sig/Erlin Route PRN Reason Start Time Stop Time Status Last Admin Dose Admin Acetaminophen (Tylenol) 650 mg Q4H PRN ORAL Mild Pain/Temp > 100.5 05/26/18 16:45 06/11/18 16:44 05/29/18 10:57 Al Hydroxide/Mg Hydroxide (Mylanta) 15 ml Q6H PRN ORAL DYSPEPSIA 05/26/18 18:30 06/22/18 18:15 Amiodarone HCl (Cordarone) 200 mg DAILY ORAL 05/27/18 09:00 06/17/18 08:59 05/29/18 09:04 Chlorhexidine Gluconate (Yari-Hex 2%) 1 applic DAILY@1999 TOPIC 05/26/18 20:00 06/23/18 19:59 05/28/18 19:51 Digoxin (Lanoxin) 0.125 mg DAILY ORAL 05/27/18 09:00 06/12/18 08:59 05/29/18 09:03 Diphenhydramine HCl (Benadryl) 25 mg Q8H PRN ORAL Itching/Pruritis 05/26/18 16:46 06/22/18 16:45 Docusate Sodium (Colace) 100 mg TWICE A DAY ORAL 05/26/18 18:00 06/22/18 17:59 05/29/18 09:03 Enoxaparin Sodium (Lovenox) 70 mg EVERY 12 HOURS SUBQ 05/27/18 21:00 06/26/18 20:59 05/29/18 09:21 Ethambutol HCl (Myambutol) 1,200 mg DAILY ORAL 05/27/18 09:00 06/25/18 13:59 05/29/18 09:04 Gabapentin (Neurontin) 100 mg THREE TIMES A DAY ORAL 05/26/18 18:00 06/11/18 17:59 05/29/18 18:02 Hydromorphone HCl (Dilaudid) 0.5 mg Q3H PRN IVP Pain Score 1-3 05/26/18 16:47 05/30/18 16:46 Hydromorphone HCl (Dilaudid) 1 mg Q3H PRN IVP pain score 4-6 05/26/18 16:46 05/30/18 16:45 05/28/18 19:49 Hydromorphone HCl (Dilaudid) 2 mg Q3H PRN IVP pain score 7-10 05/26/18 16:47 05/30/18 16:46 05/29/18 18:08 Iopamidol (Isovue-300 100ml) 100 ml NOW PRN INJ Radiology Procedure 05/29/18 15:00 05/31/18 14:54 Isoniazid (Inh) 300 mg DAILY ORAL 05/27/18 09:00 06/25/18 13:59 05/29/18 09:03 Levofloxacin (Levaquin) 750 mg DAILY ORAL 05/27/18 09:00 06/02/18 13:00 05/29/18 09:01 Lorazepam (Ativan 2mg/ml 1ml) 1 mg Q4H PRN IV For Anxiety 05/26/18 16:47 05/30/18 16:46 05/29/18 10:57 Magnesium Hydroxide (Mom) 30 ml BIDPRN PRN ORAL Constipation 05/26/18 18:30 06/22/18 18:15 Metoprolol Tartrate (Lopressor) 50 mg Q12HR ORAL 05/26/18 21:00 06/11/18 20:59 05/29/18 09:04 Metronidazole (Flagyl) 500 mg Q8H ORAL 05/26/18 18:00 05/31/18 01:59 05/29/18 18:02 Ondansetron HCl (Zofran) 4 mg Q6H PRN IVP Nausea & Vomiting 05/26/18 18:30 06/22/18 18:15 Polyethylene Glycol (Miralax) 17 gm DAILY ORAL 05/27/18 09:00 06/16/18 10:59 05/28/18 09:37 Pyrazinamide (Pza) 1,500 mg DAILY ORAL 05/27/18 09:00 06/25/18 13:59 05/29/18 09:01 Pyridoxine HCl (Vitamin B6) 50 mg DAILY ORAL 05/27/18 09:00 06/25/18 13:59 05/29/18 09:02 Quetiapine Fumarate (SEROquel) 100 mg BEDTIME ORAL 05/26/18 21:00 06/11/18 20:59 05/28/18 20:56 Sennosides (Senokot) 8.6 mg BIDPRN PRN ORAL Constipation 05/26/18 18:30 06/22/18 18:15 Sodium Hypochlorite (Dakin's Quarter Strength) 1 applic DAILY TOPIC 05/27/18 09:00 06/25/18 16:00 05/29/18 09:06 Temazepam (Restoril) 7.5 mg HSPRN PRN ORAL Insomnia 05/26/18 20:45 05/30/18 20:44 Allergies: Coded Allergies: MILK (Verified Allergy, Unknown, 02/02/18) ROS Limited/Unobtainable: No Constitutional: Reports: no symptoms HEENT: Reports: no symptoms Cardiovascular: Reports: no symptoms Respiratory: Reports: no symptoms Gastrointestinal/Abdominal: Reports: no symptoms Genitourinary: Reports: no symptoms 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: Reports: no symptoms Subjective 68 YO A M admitted with altered mental status. Now sepsis and atrial fibrillation with rapid rate. Cover for Int Med-Dr Caban. ICU. S/P bilateral above the knee amputation Tu 05/23/18 for gangrene Objective Last Vital Signs Date Time Temp Pulse Resp B/P (MAP) Pulse Ox O2 Delivery O2 Flow Rate FiO2 05/29/18 18:38 97.7 05/29/18 16:02 Nasal Cannula 2.0 05/29/18 15:51 60 18 139/91 (107) 97 05/28/18 19:44 28 Laboratory Tests Test 05/29/18 06:00 05/29/18 15:00 White Blood Count 10.7 K/UL (4.8-10.8) 13.8 K/UL (4.8-10.8) H Red Blood Count 2.92 M/UL (4.70-6.10) L 3.29 M/UL (4.70-6.10) L Hemoglobin 8.4 G/DL (14.2-18.0) L 9.5 G/DL (14.2-18.0) L Hematocrit 26.2 % (42.0-52.0) L 29.7 % (42.0-52.0) L Mean Corpuscular Volume 90 FL (80-99) 90 FL (80-99) Mean Corpuscular Hemoglobin 28.9 PG (27.0-31.0) 28.8 PG (27.0-31.0) Mean Corpuscular Hemoglobin Concent 32.1 G/DL (32.0-36.0) 31.9 G/DL (32.0-36.0) L Red Cell Distribution Width 13.5 % (11.6-14.8) 13.1 % (11.6-14.8) Platelet Count 201 K/UL (150-450) 213 K/UL (150-450) Mean Platelet Volume 5.4 FL (6.5-10.1) L 5.6 FL (6.5-10.1) L Neutrophils (%) (Auto) 74.9 % (45.0-75.0) 78.5 % (45.0-75.0) H Lymphocytes (%) (Auto) 13.6 % (20.0-45.0) L 10.4 % (20.0-45.0) L Monocytes (%) (Auto) 9.8 % (1.0-10.0) 9.2 % (1.0-10.0) Eosinophils (%) (Auto) 1.0 % (0.0-3.0) 0.7 % (0.0-3.0) Basophils (%) (Auto) 0.7 % (0.0-2.0) 1.2 % (0.0-2.0) Sodium Level 139 MMOL/L (136-145) Potassium Level 3.6 MMOL/L (3.5-5.1) Chloride Level 108 MMOL/L (98-107) H Carbon Dioxide Level 28 MMOL/L (21-32) Anion Gap 4 mmol/L (5-15) L Blood Urea Nitrogen 13 mg/dL (7-18) Creatinine 0.7 MG/DL (0.55-1.30) Estimat Glomerular Filtration Rate > 60 mL/min (>60) Glucose Level 96 MG/DL (74-106) Calcium Level 7.6 MG/DL (8.5-10.1) L Total Bilirubin 0.3 MG/DL (0.2-1.0) Aspartate Amino Transf (AST/SGOT) 17 U/L (15-37) Alanine Aminotransferase (ALT/SGPT) 11 U/L (12-78) L Alkaline Phosphatase 119 U/L (46-116) H Total Protein 5.5 G/DL (6.4-8.2) L Albumin 1.0 G/DL (3.4-5.0) L Globulin 4.5 g/dL Albumin/Globulin Ratio 0.2 (1.0-2.7) L Microbiology Date/Time Source Procedure Growth Status 05/27/18 10:28 Sputum AFB Specimen Processing Tissue - Final Resulted 05/27/18 10:28 Sputum Acid Fast Bacilli Smear - Final Resulted 05/27/18 10:28 Sputum Acid Fast Bacilli Culture Pending Resulted Intake and Output 05/28/18 05/29/18 18:59 06:59 Intake Total 590 ml 610 ml Output Total 300 ml 250 ml Balance 290 ml 360 ml Intake Oral 240 ml 60 ml IV Total 350 ml 550 ml Output Urine Total 300 ml 250 ml # Voids 1 # Bowel Movements 1 Objective General Appearance: alert, thin, agitated EENT: PERRL/EOMI, normal ENT inspection Neck: non-tender, normal alignment, supple, normal inspection Cardiovascular: normal peripheral pulses, normal rate, no gallop/murmur, no JVD , irregularly irregular Respiratory/Chest: chest wall non-tender, lungs clear, normal breath sounds, no respiratory distress, no accessory muscle use Abdomen: normal bowel sounds, non tender, soft, no organomegaly, no mass Extremities: normal range of motion, non-tender Neurologic: silo filler II-XII grossly 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 (8) Sepsis Assessment & Plan: Continue cefepime and vanco per ID (9) UTI (urinary tract infection) Assessment & Plan: Mixed culture-continue vanco and cefepime per ID (10) Leukocytosis (11) Deep venous thrombosis of right femoral vein Assessment & Plan: D/C eliquis. Start lovenox SQ; D/C lovenox on Tuesday prior to surgery (12) Gangrene Assessment & Plan: S/P above the knee amputation Bilat lower ext 05/23/18 (13) Pneumonia Assessment & Plan: Cavitary lesion. See ID note Status: stable Status Narrative Discharge planning Daniel Jackson MD May 29, 2018 19:40
[2018-05-29 20:00] VITALS: BP 145/78
[2018-05-29] MEDS: Dyna-Hex 2% Top Sol 2oz TOPIC SCH (21:10)
[2018-05-30] VITALS: BP 101/70
[2018-05-30] MEDS: metroNIDAZOLE 500mg tab ORAL SCH ×3 (01:58→17:25)
[2018-05-30 04:00] VITALS: BP 138/66
[2018-05-30 07:11] LABS: BASOPHILS % (AUTO) 1.3 % (0.0-2.0); EOSINOPHILS % (AUTO) 0.9 % (0.0-3.0); HEMATOCRIT 26.8 % (42.0-52.0); HEMOGLOBIN 8.7 G/DL (14.2-18.0); LYMPHOCYTES % (AUTO) 12.4 % (20.0-45.0); MEAN CORPUSCULAR VOLUME 90 FL (80-99); MONOCYTES % (AUTO) 8.7 % (1.0-10.0); NEUTROPHILS % (AUTO) 76.7 % (45.0-75.0); PLATELET COUNT 223 K/UL (150-450); RED BLOOD COUNT 2.98 M/UL (4.70-6.10); RED CELL DISTRIBUTION WIDTH 13.3 % (11.6-14.8); WHITE BLOOD COUNT 12.2 K/UL (4.8-10.8)
[2018-05-30 07:27] LABS: PHOSPHORUS 1.6 MG/DL (2.5-4.9)
[2018-05-30 07:28] LABS: ALANINE AMINOTRANSFERASE 13 U/L (12-78); ALBUMIN 1.2 G/DL (3.4-5.0); ALBUMIN/GLOBULIN RATIO 0.3 (1.0-2.7); ALKALINE PHOSPHATASE 110 U/L (46-116); ANION GAP 5 mmol/L (5-15); ASPARTATE AMINO TRANSFERASE 18 U/L (15-37); BILIRUBIN,TOTAL 0.2 MG/DL (0.2-1.0); BLOOD UREA NITROGEN 14 mg/dL (7-18); CALCIUM 7.6 MG/DL (8.5-10.1); CARBON DIOXIDE 27 MMOL/L (21-32); CHLORIDE 108 MMOL/L (98-107); CREATININE 0.7 MG/DL (0.55-1.30); POTASSIUM 3.7 MMOL/L (3.5-5.1); SODIUM 140 MMOL/L (136-145)
[2018-05-30 08:00] VITALS: BP 138/77
[2018-05-30] MEDS: Docusate 100mg cap ORAL SCH ×2 (09:00→17:26)
[2018-05-30] MEDS: Miralax 17gm pkt ORAL SCH (09:00)
[2018-05-30] MEDS: Amiodarone 200mg tab ORAL SCH (09:00)
[2018-05-30] MEDS: Isoniazid 300mg tab ORAL SCH (09:01)
[2018-05-30] MEDS: Metoprolol Tartrate 50mg tab ORAL SCH ×2 (09:01→21:31)
[2018-05-30] MEDS: Pyridoxine 50mg tab ORAL SCH (09:01)
[2018-05-30] MEDS: Digoxin 0.125mg tab ORAL SCH (09:05)
[2018-05-30] MEDS: Enoxaparin Sodium 300mg/3ml vial SUBQ SCH (09:17)
[2018-05-30] MEDS: Dakin's 0.125% Soln (Quarter Strength) 16oz TOPIC SCH (09:20)
--- NOTE | 2018-05-30 10:20 | Infectious Diseases Prog Note ---
Assessment/Plan Assessment/Plan - 68 yo male who was transferred from [place] where he initially presented for AMS from [facility]. Low grade fever, SP Leukocytosis ,recurrent- SP Small lung cavitary lesion/ PNA- suspect likely to aspiration; lower suspicion for TB and/or fungal etiologies -CT c/a/p: 10 mm opacity in the peripheral anterolateral right upper lobe with small central cavitation. Patchy groundglass opacity in the posterior right upper lobe. Suspect that these represent inflammatory/infectious lesions, but neoplastic etiology of either is certainly possible. Large left and moderate right pleural effusions. Resultant compressive atelectasis of portions of the lower lobes. Equivocal distal esophageal wall thickening, could indicate esophagitis if real -sp cx usual resp noah -AFB sp cx; smear neg x4; MTB PCR p -TB spot + -Neg Crag serum, legionella ag urine Hep C + ab- r/o actice chronic hepaitis C -CT abd- liver unremarkable Sepsis 2/2 to bacteremia (at OSH) Likely source is skin ulcer Blood Cx 05/12/18 at [place] [facility] -Bcx 05/12 and (here) NTD 2d echo: no vegetations 05/15 CXR: Right midlung nodule. Absence of this finding on previous study makes this more likely to be a focus of inflammation, but rapidly growing neoplasm not excludable. Left basilar hazy opacity. Most likely a moderate to large pleural effusion.Component of infiltrate or atelectasis is also possible 05/12 CXR: Asymmetric ill-defined confluent groundglass opacity within the left mid/inferior lung, of uncertain etiology. B/l LE necrotic ulcer and toes- acute on chronci, ischemic w/ likely superinfection- likely non-salvageable per surgery -05/23 SP B/l BKA Afib w/ RVR Encephalopathy , improving Likely secondary to sepsis Cerebrovascular accident. Hypertension. Sacral decubitus ulcers. Bipolar disorder. Coronary artery disease. Plan - Continue Levaquin #5 (abx d#19) and flagyl #12 for cavitary/aspiration PNA -low threshold to switch Cefepime and Flagyl to Meropenem if decompensates -05/26 SP IV Vancomycin #15, Cefepime #15 -Per Dept of Public health and to aid on discharge planning back to [facility], will cont empiric TB regimen with DONN (started on 05/26- ); Levaquin instead of Rifampin given multiple drug interactions of Rifampin (w/ Amiodarone, quetiapine , metoprolol) -Dept of wants to treat empirically until final AFB culture results -monitor LFTs -CT head w/w o -EGK monitor QTc -Airborne isolation -f/u AFB sp cx,MTB PCR x1 -f/u cocci ab, fungal sp cx, - f/u Blood Cx - Wound care - Monitor CBC and Temps -f/u sp cx, u/a w/ reflex -Cdiff if diarrhea -Sx f/u -f/u Hep C VL, Hep A IgG, Hebc IgG and Hep Bs ab Thank you for this consult. We will continue to follow the patient during this hospitalization. Discussed withRN Subjective Allergies: Coded Allergies: MILK (Verified Allergy, Unknown, 02/02/18) Subjective afebrile leukocytosis more alert- oriented to place Objective Vital Signs Last 24 Hour Vital Signs Date Time Temp Pulse Resp B/P (MAP) Pulse Ox O2 Delivery O2 Flow Rate FiO2 05/30/18 09:05 64 05/30/18 09:01 64 138/77 05/30/18 08:00 97.0 64 20 138/77 (97) 98 05/30/18 04:00 97.0 55 19 138/66 (90) 98 05/30/18 00:00 97.5 58 18 101/70 (80) 99 05/29/18 21:11 60 145/78 05/29/18 21:00 Nasal Cannula 2.0 05/29/18 20:00 97.3 60 20 145/78 (100) 98 05/29/18 19:30 Nasal Cannula 2.0 28 05/29/18 19:30 97 Nasal Cannula 2.0 28 05/29/18 18:38 97.7 05/29/18 16:02 Nasal Cannula 2.0 05/29/18 15:51 97.7 60 18 139/91 (107) 97 05/29/18 12:00 97.3 96 20 120/64 (82) 93 05/29/18 12:00 97.3 96 20 120/64 (82) 94 05/29/18 11:27 97.7 Height (Feet): 6 Height (Inches): 5.00 Weight (Pounds): 103 Objective Gen: NAD. Mumbling HEENT: NCAT, MMM, EOMI, No Oral lesion, no scleral icterus NECK: full range of motion, supple, no meningismus, No LAD, No JVD LUNGS: CTAB, No W/C, No Accessory muscle use CARDS: RRR, S1, S2, No M/R/G ABD: Soft, NT, ND, No R/G, + BS, No HSM, No Masses : Deferred Ext: C/C/E, Pulses 2+ B/L (DP, Rad) NEURO: A/O x 0, Strength and Sensation Grossly intact PSYCH: mood/affect normal SKIN: Left foot wound. No purulent drainage, Feet now bandaged Microbiology Date/Time Source Procedure Growth Status 05/27/18 10:28 Sputum AFB Specimen Processing Tissue - Final Resulted 05/27/18 10:28 Sputum Acid Fast Bacilli Smear - Final Resulted 05/27/18 10:28 Sputum Acid Fast Bacilli Culture Pending Resulted Laboratory Tests Test 05/29/18 15:00 05/30/18 06:15 White Blood Count 13.8 K/UL (4.8-10.8) H 12.2 K/UL (4.8-10.8) H Red Blood Count 3.29 M/UL (4.70-6.10) L 2.98 M/UL (4.70-6.10) L Hemoglobin 9.5 G/DL (14.2-18.0) L 8.7 G/DL (14.2-18.0) L Hematocrit 29.7 % (42.0-52.0) L 26.8 % (42.0-52.0) L Mean Corpuscular Volume 90 FL (80-99) 90 FL (80-99) Mean Corpuscular Hemoglobin 28.8 PG (27.0-31.0) 29.2 PG (27.0-31.0) Mean Corpuscular Hemoglobin Concent 31.9 G/DL (32.0-36.0) L 32.4 G/DL (32.0-36.0) Red Cell Distribution Width 13.1 % (11.6-14.8) 13.3 % (11.6-14.8) Platelet Count 213 K/UL (150-450) 223 K/UL (150-450) Mean Platelet Volume 5.6 FL (6.5-10.1) L 5.2 FL (6.5-10.1) L Neutrophils (%) (Auto) 78.5 % (45.0-75.0) H 76.7 % (45.0-75.0) H Lymphocytes (%) (Auto) 10.4 % (20.0-45.0) L 12.4 % (20.0-45.0) L Monocytes (%) (Auto) 9.2 % (1.0-10.0) 8.7 % (1.0-10.0) Eosinophils (%) (Auto) 0.7 % (0.0-3.0) 0.9 % (0.0-3.0) Basophils (%) (Auto) 1.2 % (0.0-2.0) 1.3 % (0.0-2.0) Erythrocyte Sedimentation Rate 107 MM/HR (0-20) H Sodium Level 140 MMOL/L (136-145) Potassium Level 3.7 MMOL/L (3.5-5.1) Chloride Level 108 MMOL/L (98-107) H Carbon Dioxide Level 27 MMOL/L (21-32) Anion Gap 5 mmol/L (5-15) Blood Urea Nitrogen 14 mg/dL (7-18) Creatinine 0.7 MG/DL (0.55-1.30) Estimat Glomerular Filtration Rate > 60 mL/min (>60) Glucose Level 101 MG/DL (74-106) Calcium Level 7.6 MG/DL (8.5-10.1) L Phosphorus Level 1.6 MG/DL (2.5-4.9) L Magnesium Level 1.3 MG/DL (1.8-2.4) L Total Bilirubin 0.2 MG/DL (0.2-1.0) Aspartate Amino Transf (AST/SGOT) 18 U/L (15-37) Alanine Aminotransferase (ALT/SGPT) 13 U/L (12-78) Alkaline Phosphatase 110 U/L (46-116) C-Reactive Protein, Quantitative 3.7 mg/dL (0.00-0.90) H Total Protein 5.8 G/DL (6.4-8.2) L Albumin 1.2 G/DL (3.4-5.0) L Globulin 4.6 g/dL Albumin/Globulin Ratio 0.3 (1.0-2.7) L Hepatitis A Antibody Total Pending Hepatitis B Surface Antibody Pending Hepatitis B Core Total Antibody Pending Hepatitis C Antibody Pending Hepatitis C RNA (PCR) IUs/ml Pending Hepatitis C RNA (PCR) log IUs/ml Pending Current Medications Medications (Trade) Dose Ordered Sig/Erlin Route PRN Reason Start Time Stop Time Status Last Admin Dose Admin Acetaminophen (Tylenol) 650 mg Q4H PRN ORAL Mild Pain/Temp > 100.5 05/26/18 16:45 06/11/18 16:44 05/29/18 10:57 Al Hydroxide/Mg Hydroxide (Mylanta) 15 ml Q6H PRN ORAL DYSPEPSIA 05/26/18 18:30 06/22/18 18:15 Amiodarone HCl (Cordarone) 200 mg DAILY ORAL 05/27/18 09:00 06/17/18 08:59 05/30/18 09:00 Chlorhexidine Gluconate (Yari-Hex 2%) 1 applic DAILY@2000 TOPIC 05/26/18 20:00 06/23/18 19:59 05/29/18 21:10 Digoxin (Lanoxin) 0.125 mg DAILY ORAL 05/27/18 09:00 06/12/18 08:59 05/30/18 09:05 Diphenhydramine HCl (Benadryl) 25 mg Q8H PRN ORAL Itching/Pruritis 05/26/18 16:46 06/22/18 16:45 Docusate Sodium (Colace) 100 mg TWICE A DAY ORAL 05/26/18 18:00 06/22/18 17:59 05/29/18 09:03 Enoxaparin Sodium (Lovenox) 70 mg EVERY 12 HOURS SUBQ 05/27/18 21:00 06/26/18 20:59 05/30/18 09:17 Ethambutol HCl (Myambutol) 1,200 mg DAILY ORAL 05/27/18 09:00 06/25/18 13:59 05/30/18 09:01 Gabapentin (Neurontin) 100 mg THREE TIMES A DAY ORAL 05/26/18 18:00 06/11/18 17:59 05/30/18 09:00 Hydromorphone HCl (Dilaudid) 0.5 mg Q3H PRN IVP Pain Score 1-3 05/26/18 16:47 05/30/18 16:46 Hydromorphone HCl (Dilaudid) 1 mg Q3H PRN IVP pain score 4-6 05/26/18 16:46 05/30/18 16:45 05/28/18 19:49 Hydromorphone HCl (Dilaudid) 2 mg Q3H PRN IVP pain score 7-10 05/26/18 16:47 05/30/18 16:46 05/30/18 07:05 Iopamidol (Isovue-300 100ml) 100 ml NOW PRN INJ Radiology Procedure 05/29/18 15:00 05/31/18 14:54 Isoniazid (Inh) 300 mg DAILY ORAL 05/27/18 09:00 06/25/18 13:59 05/30/18 09:01 Levofloxacin (Levaquin) 750 mg DAILY ORAL 05/27/18 09:00 06/02/18 13:00 05/30/18 09:01 Lorazepam (Ativan 2mg/ml 1ml) 1 mg Q4H PRN IV For Anxiety 05/26/18 16:47 05/30/18 16:46 05/29/18 10:57 Magnesium Hydroxide (Mom) 30 ml BIDPRN PRN ORAL Constipation 05/26/18 18:30 06/22/18 18:15 Metoprolol Tartrate (Lopressor) 50 mg Q12HR ORAL 05/26/18 21:00 06/11/18 20:59 05/30/18 09:01 Metronidazole (Flagyl) 500 mg Q8H ORAL 05/26/18 18:00 05/31/18 01:59 05/29/18 18:02 Ondansetron HCl (Zofran) 4 mg Q6H PRN IVP Nausea & Vomiting 05/26/18 18:30 06/22/18 18:15 Polyethylene Glycol (Miralax) 17 gm DAILY ORAL 05/27/18 09:00 06/16/18 10:59 05/28/18 09:37 Pyrazinamide (Pza) 1,500 mg DAILY ORAL 05/27/18 09:00 06/25/18 13:59 05/30/18 09:01 Pyridoxine HCl (Vitamin B6) 50 mg DAILY ORAL 05/27/18 09:00 06/25/18 13:59 05/30/18 09:01 Quetiapine Fumarate (SEROquel) 100 mg BEDTIME ORAL 05/26/18 21:00 06/11/18 20:59 05/29/18 21:10 Sennosides (Senokot) 8.6 mg BIDPRN PRN ORAL Constipation 05/26/18 18:30 06/22/18 18:15 Sodium Hypochlorite (Dakin's Quarter Strength) 1 applic DAILY TOPIC 05/27/18 09:00 06/25/18 16:00 05/30/18 09:20 Temazepam (Restoril) 7.5 mg HSPRN PRN ORAL Insomnia 05/26/18 20:45 05/30/18 20:44 Alma Elkins M.D. May 30, 2018 10:20
--- NOTE | 2018-05-30 10:24 | Diagnostic Imaging Report ---
Indication: Altered mental status Technique: Contiguous 5 mm thick transaxial imaging of the head obtained in a Siemens Sensation [address] scanner before and after intravenous administration of non-ionic contrast. Soft tissue and bone windows generated. Total Dose length Product (DLP): 2966.[address] Dose Index Volume (CTDIvol): 70.38,70.38 mGy Comparison: none Findings: There is mild prominence of the ventricles, basal cisterns, and cerebral sulci consistent with atrophy. No abnormal enhancement. Mild, nonspecific, white matter hypoattenuation is noted throughout the brain consistent with chronic small vessel disease. There is no midline shift, edema, acute hemorrhage, mass effect, or abnormal extra-axial fluid collections. Bones and extra osseous soft tissues are unremarkable. Impression: No acute intracranial abnormalities. Mild atrophy of the brain. Nonspecific white matter hypoattenuation probably due to chronic small vessel disease. The CT scanner at [facility] is accredited by the [employer] and the scans are performed using dose optimization techniques as appropriate to a performed exam including Automatic Exposure control.
--- NOTE | 2018-05-30 10:46 | Cardiac Electrophysiology PN ---
Assessment/Plan Assessment/Plan 1. Paroxysmal Atrial fibrillation and flutter with RVR Continue digoxin 0.125 daily, metoprolol 50 bid and Amiodarone 200 daily. On Lovenox 70 b.i.d. Dig level in am 2. Borderline hypotension. Resolved 3. Fever, cough and sepsis, on antibiotic and in respiratory isolation. 4. History of dementia and severe psychosis, on Seroquel. 5. Severe bilateral leg ulcers and sacral decubitus. S/P Bilateral AKA by Dr. Enrrique GERMAN RN Subjective Subjective Still in resp isolation awaiting AFB. No CP or SOB Objective Last 24 Hour Vital Signs Date Time Temp Pulse Resp B/P (MAP) Pulse Ox O2 Delivery O2 Flow Rate FiO2 05/30/18 09:05 64 05/30/18 09:01 64 138/77 05/30/18 09:00 Nasal Cannula 2.0 05/30/18 08:00 97.0 64 20 138/77 (97) 98 05/30/18 04:00 97.0 55 19 138/66 (90) 98 05/30/18 00:00 97.5 58 18 101/70 (80) 99 05/29/18 21:11 60 145/78 05/29/18 21:00 Nasal Cannula 2.0 05/29/18 20:00 97.3 60 20 145/78 (100) 98 05/29/18 19:30 Nasal Cannula 2.0 28 05/29/18 19:30 97 Nasal Cannula 2.0 28 05/29/18 18:38 97.7 05/29/18 16:02 Nasal Cannula 2.0 05/29/18 15:51 97.7 60 18 139/91 (107) 97 05/29/18 12:00 97.3 96 20 120/64 (82) 93 05/29/18 12:00 97.3 96 20 120/64 (82) 94 05/29/18 11:27 97.7 Intake and Output 05/29/18 05/30/18 19:00 07:00 Intake Total 1190 ml 120 ml Balance 1190 ml 120 ml Intake Oral 1140 ml 120 ml IV Total 50 ml # Voids 2 # Bowel Movements 2 Laboratory Tests Test 05/29/18 15:00 05/30/18 06:15 White Blood Count 13.8 K/UL (4.8-10.8) H 12.2 K/UL (4.8-10.8) H Red Blood Count 3.29 M/UL (4.70-6.10) L 2.98 M/UL (4.70-6.10) L Hemoglobin 9.5 G/DL (14.2-18.0) L 8.7 G/DL (14.2-18.0) L Hematocrit 29.7 % (42.0-52.0) L 26.8 % (42.0-52.0) L Mean Corpuscular Volume 90 FL (80-99) 90 FL (80-99) Mean Corpuscular Hemoglobin 28.8 PG (27.0-31.0) 29.2 PG (27.0-31.0) Mean Corpuscular Hemoglobin Concent 31.9 G/DL (32.0-36.0) L 32.4 G/DL (32.0-36.0) Red Cell Distribution Width 13.1 % (11.6-14.8) 13.3 % (11.6-14.8) Platelet Count 213 K/UL (150-450) 223 K/UL (150-450) Mean Platelet Volume 5.6 FL (6.5-10.1) L 5.2 FL (6.5-10.1) L Neutrophils (%) (Auto) 78.5 % (45.0-75.0) H 76.7 % (45.0-75.0) H Lymphocytes (%) (Auto) 10.4 % (20.0-45.0) L 12.4 % (20.0-45.0) L Monocytes (%) (Auto) 9.2 % (1.0-10.0) 8.7 % (1.0-10.0) Eosinophils (%) (Auto) 0.7 % (0.0-3.0) 0.9 % (0.0-3.0) Basophils (%) (Auto) 1.2 % (0.0-2.0) 1.3 % (0.0-2.0) Erythrocyte Sedimentation Rate 107 MM/HR (0-20) H Sodium Level 140 MMOL/L (136-145) Potassium Level 3.7 MMOL/L (3.5-5.1) Chloride Level 108 MMOL/L (98-107) H Carbon Dioxide Level 27 MMOL/L (21-32) Anion Gap 5 mmol/L (5-15) Blood Urea Nitrogen 14 mg/dL (7-18) Creatinine 0.7 MG/DL (0.55-1.30) Estimat Glomerular Filtration Rate > 60 mL/min (>60) Glucose Level 101 MG/DL (74-106) Calcium Level 7.6 MG/DL (8.5-10.1) L Phosphorus Level 1.6 MG/DL (2.5-4.9) L Magnesium Level 1.3 MG/DL (1.8-2.4) L Total Bilirubin 0.2 MG/DL (0.2-1.0) Aspartate Amino Transf (AST/SGOT) 18 U/L (15-37) Alanine Aminotransferase (ALT/SGPT) 13 U/L (12-78) Alkaline Phosphatase 110 U/L (46-116) C-Reactive Protein, Quantitative 3.7 mg/dL (0.00-0.90) H Total Protein 5.8 G/DL (6.4-8.2) L Albumin 1.2 G/DL (3.4-5.0) L Globulin 4.6 g/dL Albumin/Globulin Ratio 0.3 (1.0-2.7) L Hepatitis A Antibody Total Pending Hepatitis B Surface Antibody Pending Hepatitis B Core Total Antibody Pending Hepatitis C Antibody Pending Hepatitis C RNA (PCR) IUs/ml Pending Hepatitis C RNA (PCR) log IUs/ml Pending Objective HEAD AND NECK: Mild JVD. LUNGS: Coarse rhonchi. CARDIOVASCULAR: Irregular S1 and S2 with no murmur. ABDOMEN: Soft. EXTREMITIES: S/P Bilateral Amandeep Mart MD May 30, 2018 10:46
[2018-05-30 12:00] VITALS: BP 133/67
--- NOTE | 2018-05-30 12:02 | Pulmonology Progress Note ---
Assessment/Plan Problems: (1) Sepsis (2) Atrial fibrillation (3) Decubitus skin ulcer (4) Bipolar disorder (5) CAD (coronary artery disease) (6) HTN (hypertension) (7) CVA (cerebral vascular accident) Assessment/Plan no new complains cxr reviewed, unchanged iv abx wound care f/u cultures monitor BP watch heart rate dvt prophylaxis symptomatic treatment Subjective ROS Limited/Unobtainable: No Constitutional: Reports: no symptoms HEENT: Repors: no symptoms Respiratory: Reports: no symptoms Allergies: Coded Allergies: MILK (Verified Allergy, Unknown, 02/02/18) Objective Last 24 Hour Vital Signs Date Time Temp Pulse Resp B/P (MAP) Pulse Ox O2 Delivery O2 Flow Rate FiO2 05/30/18 09:05 64 05/30/18 09:01 64 138/77 05/30/18 09:00 Nasal Cannula 2.0 05/30/18 08:00 97.0 64 20 138/77 (97) 98 05/30/18 04:00 97.0 55 19 138/66 (90) 98 05/30/18 00:00 97.5 58 18 101/70 (80) 99 05/29/18 21:11 60 145/78 05/29/18 21:00 Nasal Cannula 2.0 05/29/18 20:00 97.3 60 20 145/78 (100) 98 05/29/18 19:30 Nasal Cannula 2.0 28 05/29/18 19:30 97 Nasal Cannula 2.0 28 05/29/18 18:38 97.7 05/29/18 16:02 Nasal Cannula 2.0 05/29/18 15:51 97.7 60 18 139/91 (107) 97 Intake and Output 05/29/18 05/30/18 19:00 07:00 Intake Total 1190 ml 120 ml Balance 1190 ml 120 ml Intake Oral 1140 ml 120 ml IV Total 50 ml # Voids 2 # Bowel Movements 2 Objective General Appearance: WD/WN HEENT: normocephalic Respiratory/Chest: chest wall non-tender, lungs clear, normal breath sounds Cardiovascular: normal peripheral pulses, normal rate Abdomen: normal bowel sounds, soft, non tender Genitourinary: normal external genitalia Extremities: s/p amputation Skin: no rash Laboratory Tests 05/29/18 15:00: White Blood Count 13.8H, Red Blood Count 3.29L, Hemoglobin 9.5L, Hematocrit 29.7L, Mean Corpuscular Volume 90, Mean Corpuscular Hemoglobin 28.8, Mean Corpuscular Hemoglobin Concent 31.9L, Red Cell Distribution Width 13.1, Platelet Count 213, Mean Platelet Volume 5.6L, Neutrophils (%) (Auto) 78.5H, Lymphocytes (%) (Auto) 10.4L, Monocytes (%) (Auto) 9.2, Eosinophils (%) (Auto) 0.7, Basophils (%) (Auto) 1.2 05/30/18 06:15: White Blood Count 12.2H, Red Blood Count 2.98L, Hemoglobin 8.7L, Hematocrit 26.8L, Mean Corpuscular Volume 90, Mean Corpuscular Hemoglobin 29.2, Mean Corpuscular Hemoglobin Concent 32.4, Red Cell Distribution Width 13.3, Platelet Count 223, Mean Platelet Volume 5.2L, Neutrophils (%) (Auto) 76.7H, Lymphocytes (%) (Auto) 12.4L, Monocytes (%) (Auto) 8.7, Eosinophils (%) (Auto) 0.9, Basophils (%) (Auto) 1.3, Erythrocyte Sedimentation Rate 107H, Sodium Level 140 , Potassium Level 3.7, Chloride Level 108H, Carbon Dioxide Level 27, Anion Gap 5 , Blood Urea Nitrogen 14, Creatinine 0.7, Estimat Glomerular Filtration Rate > 60, Glucose Level 101, Calcium Level 7.6L, Phosphorus Level 1.6L, Magnesium Level 1.3L, Total Bilirubin 0.2, Aspartate Amino Transf (AST/SGOT) 18, Alanine Aminotransferase (ALT/SGPT) 13, Alkaline Phosphatase 110, C-Reactive Protein, Quantitative 3.7H, Total Protein 5.8L, Albumin 1.2L, Globulin 4.6, Albumin/ Globulin Ratio 0.3L, Digoxin Level 0.7, Hepatitis A Antibody Total [Pending], Hepatitis B Surface Antibody [Pending], Hepatitis B Core Total Antibody [Pending ], Hepatitis C Antibody [Pending], Hepatitis C RNA (PCR) IUs/ml [Pending], Hepatitis C RNA (PCR) log IUs/ml [Pending] Current Medications Medications (Trade) Dose Ordered Sig/Erlin Route PRN Reason Start Time Stop Time Status Last Admin Dose Admin Acetaminophen (Tylenol) 650 mg Q4H PRN ORAL Mild Pain/Temp > 100.5 05/26/18 16:45 06/11/18 16:44 05/29/18 10:57 Al Hydroxide/Mg Hydroxide (Mylanta) 15 ml Q6H PRN ORAL DYSPEPSIA 05/26/18 18:30 06/22/18 18:15 Amiodarone HCl (Cordarone) 200 mg DAILY ORAL 05/27/18 09:00 06/17/18 08:59 05/30/18 09:00 Chlorhexidine Gluconate (Yari-Hex 2%) 1 applic DAILY@2000 TOPIC 05/26/18 20:00 06/23/18 19:59 05/29/18 21:10 Digoxin (Lanoxin) 0.125 mg DAILY ORAL 05/27/18 09:00 06/12/18 08:59 05/30/18 09:05 Diphenhydramine HCl (Benadryl) 25 mg Q8H PRN ORAL Itching/Pruritis 05/26/18 16:46 06/22/18 16:45 Docusate Sodium (Colace) 100 mg TWICE A DAY ORAL 05/26/18 18:00 06/22/18 17:59 05/29/18 09:03 Enoxaparin Sodium (Lovenox) 70 mg EVERY 12 HOURS SUBQ 05/27/18 21:00 06/26/18 20:59 05/30/18 09:17 Ethambutol HCl (Myambutol) 1,200 mg DAILY ORAL 05/27/18 09:00 06/25/18 13:59 05/30/18 09:01 Gabapentin (Neurontin) 100 mg THREE TIMES A DAY ORAL 05/26/18 18:00 06/11/18 17:59 05/30/18 09:00 Hydromorphone HCl (Dilaudid) 0.5 mg Q3H PRN IVP Pain Score 1-3 05/26/18 16:47 05/30/18 16:46 Hydromorphone HCl (Dilaudid) 1 mg Q3H PRN IVP pain score 4-6 05/26/18 16:46 05/30/18 16:45 05/28/18 19:49 Hydromorphone HCl (Dilaudid) 2 mg Q3H PRN IVP pain score 7-10 05/26/18 16:47 05/30/18 16:46 05/30/18 10:54 Iopamidol (Isovue-300 100ml) 100 ml NOW PRN INJ Radiology Procedure 05/29/18 15:00 05/31/18 14:54 Isoniazid (Inh) 300 mg DAILY ORAL 05/27/18 09:00 06/25/18 13:59 05/30/18 09:01 Levofloxacin (Levaquin) 750 mg DAILY ORAL 05/27/18 09:00 06/02/18 13:00 05/30/18 09:01 Lorazepam (Ativan 2mg/ml 1ml) 1 mg Q4H PRN IV For Anxiety 05/26/18 16:47 05/30/18 16:46 05/29/18 10:57 Magnesium Hydroxide (Mom) 30 ml BIDPRN PRN ORAL Constipation 05/26/18 18:30 06/22/18 18:15 Magnesium Sulfate 100 ml @ 100 mls/hr Q1H IVPB 05/30/18 12:30 05/30/18 14:29 Metoprolol Tartrate (Lopressor) 50 mg Q12HR ORAL 05/26/18 21:00 06/11/18 20:59 05/30/18 09:01 Metronidazole (Flagyl) 500 mg Q8H ORAL 05/26/18 18:00 05/31/18 01:59 05/30/18 10:50 Ondansetron HCl (Zofran) 4 mg Q6H PRN IVP Nausea & Vomiting 05/26/18 18:30 06/22/18 18:15 Polyethylene Glycol (Miralax) 17 gm DAILY ORAL 05/27/18 09:00 06/16/18 10:59 05/28/18 09:37 Potassium Chloride 40 meq/ Sodium Chloride 570 ml @ 142.5 mls/ hr ONCE ONCE IVPB 05/30/18 13:00 05/30/18 16:59 Pyrazinamide (Pza) 1,500 mg DAILY ORAL 05/27/18 09:00 06/25/18 13:59 05/30/18 09:01 Pyridoxine HCl (Vitamin B6) 50 mg DAILY ORAL 05/27/18 09:00 06/25/18 13:59 05/30/18 09:01 Quetiapine Fumarate (SEROquel) 100 mg BEDTIME ORAL 05/26/18 21:00 06/11/18 20:59 05/29/18 21:10 Sennosides (Senokot) 8.6 mg BIDPRN PRN ORAL Constipation 05/26/18 18:30 06/22/18 18:15 Sodium Hypochlorite (Dakin's Quarter Strength) 1 applic DAILY TOPIC 05/27/18 09:00 06/25/18 16:00 05/30/18 09:20 Sodium Phosphate 30 mm/Sodium Chloride 285 ml @ 47.5 mls/hr ONCE ONCE IV 05/30/18 13:00 05/30/18 18:59 Temazepam (Restoril) 7.5 mg HSPRN PRN ORAL Insomnia 05/26/18 20:45 05/30/18 20:44 Minerva Montesinos MD May 30, 2018 12:01
[2018-05-30] MEDS ORDERED: Potassium Chloride 40 MEQ in Sodium Chloride 500ML 550 ML IVPB ONE (13:00)
[2018-05-30] MEDS ORDERED: Sodium Phosphate 30 MM in NS 275 ML IV ONE ×2 (13:00→14:00)
[2018-05-30] MEDS: LORazepam Inj 2mg/ml 1ml IV PRN (13:18)
--- NOTE | 2018-05-30 15:30 | Cardiology Report ---
APPROVED REPORT EKG Measurement Heart [id number] FL [id number] [id number] Sinus bradycardia Low voltage QRS Cannot rule out Anterior infarct, age undetermined Abnormal ECG
[2018-05-30 16:00] VITALS: BP 119/66
--- NOTE | 2018-05-30 19:54 | Internal Med Progress Note ---
Subjective Date of Service: May 30, 2018 Physician Name JacksonDaniel Attending Physician Pedro Caban MD Current Medications Medications (Trade) Dose Ordered Sig/Erlin Route PRN Reason Start Time Stop Time Status Last Admin Dose Admin Acetaminophen (Tylenol) 650 mg Q4H PRN ORAL Mild Pain/Temp > 100.5 05/26/18 16:45 06/11/18 16:44 05/29/18 10:57 Al Hydroxide/Mg Hydroxide (Mylanta) 15 ml Q6H PRN ORAL DYSPEPSIA 05/26/18 18:30 06/22/18 18:15 Amiodarone HCl (Cordarone) 200 mg DAILY ORAL 05/27/18 09:00 06/17/18 08:59 05/30/18 09:00 Chlorhexidine Gluconate (Yari-Hex 2%) 1 applic DAILY@2000 TOPIC 05/26/18 20:00 06/23/18 19:59 05/29/18 21:10 Digoxin (Lanoxin) 0.125 mg DAILY ORAL 05/27/18 09:00 06/12/18 08:59 05/30/18 09:05 Diphenhydramine HCl (Benadryl) 25 mg Q8H PRN ORAL Itching/Pruritis 05/26/18 16:46 06/22/18 16:45 Docusate Sodium (Colace) 100 mg TWICE A DAY ORAL 05/26/18 18:00 06/22/18 17:59 05/29/18 09:03 Enoxaparin Sodium (Lovenox) 80 mg Q12HR SUBQ 05/30/18 21:00 06/29/18 20:59 Ethambutol HCl (Myambutol) 1,200 mg DAILY ORAL 05/27/18 09:00 06/25/18 13:59 05/30/18 09:01 Gabapentin (Neurontin) 100 mg THREE TIMES A DAY ORAL 05/26/18 18:00 06/11/18 17:59 05/30/18 17:25 Iopamidol (Isovue-300 100ml) 100 ml NOW PRN INJ Radiology Procedure 05/29/18 15:00 05/31/18 14:54 Isoniazid (Inh) 300 mg DAILY ORAL 05/27/18 09:00 06/25/18 13:59 05/30/18 09:01 Levofloxacin (Levaquin) 750 mg DAILY ORAL 05/27/18 09:00 06/02/18 13:00 05/30/18 09:01 Magnesium Hydroxide (Mom) 30 ml BIDPRN PRN ORAL Constipation 05/26/18 18:30 06/22/18 18:15 Metoprolol Tartrate (Lopressor) 50 mg Q12HR ORAL 05/26/18 21:00 06/11/18 20:59 05/30/18 09:01 Metronidazole (Flagyl) 500 mg Q8H ORAL 05/26/18 18:00 05/31/18 01:59 05/30/18 17:25 Ondansetron HCl (Zofran) 4 mg Q6H PRN IVP Nausea & Vomiting 05/26/18 18:30 06/22/18 18:15 Polyethylene Glycol (Miralax) 17 gm DAILY ORAL 05/27/18 09:00 06/16/18 10:59 05/28/18 09:37 Pyrazinamide (Pza) 1,500 mg DAILY ORAL 05/27/18 09:00 06/25/18 13:59 05/30/18 09:01 Pyridoxine HCl (Vitamin B6) 50 mg DAILY ORAL 05/27/18 09:00 06/25/18 13:59 05/30/18 09:01 Quetiapine Fumarate (SEROquel) 100 mg BEDTIME ORAL 05/26/18 21:00 06/11/18 20:59 05/29/18 21:10 Sennosides (Senokot) 8.6 mg BIDPRN PRN ORAL Constipation 05/26/18 18:30 06/22/18 18:15 Sodium Hypochlorite (Dakin's Quarter Strength) 1 applic DAILY TOPIC 05/27/18 09:00 06/25/18 16:00 05/30/18 09:20 Sodium Phosphate 30 mm/Sodium Chloride 285 ml @ 47.5 mls/hr ONCE ONCE IV 05/30/18 14:00 05/30/18 19:59 05/30/18 17:25 Temazepam (Restoril) 7.5 mg HSPRN PRN ORAL Insomnia 05/26/18 20:45 05/30/18 20:44 Allergies: Coded Allergies: MILK (Verified Allergy, Unknown, 02/02/18) ROS Limited/Unobtainable: No Constitutional: Reports: no symptoms HEENT: Reports: no symptoms Cardiovascular: Reports: no symptoms Respiratory: Reports: no symptoms Gastrointestinal/Abdominal: Reports: no symptoms Genitourinary: Reports: no symptoms 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: Reports: no symptoms Subjective 68 YO A M admitted with altered mental status. Now sepsis and atrial fibrillation with rapid rate. Cover for Int Jerman-Dr Caban. ICU. 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 Objective Last Vital Signs Date Time Temp Pulse Resp B/P (MAP) Pulse Ox O2 Delivery O2 Flow Rate FiO2 05/30/18 16:00 97.7 89 20 119/66 (83) 98 05/30/18 09:00 Nasal Cannula 2.0 05/29/18 19:30 28 Laboratory Tests Test 05/30/18 06:15 White Blood Count 12.2 K/UL (4.8-10.8) H Red Blood Count 2.98 M/UL (4.70-6.10) L Hemoglobin 8.7 G/DL (14.2-18.0) L Hematocrit 26.8 % (42.0-52.0) L Mean Corpuscular Volume 90 FL (80-99) Mean Corpuscular Hemoglobin 29.2 PG (27.0-31.0) Mean Corpuscular Hemoglobin Concent 32.4 G/DL (32.0-36.0) Red Cell Distribution Width 13.3 % (11.6-14.8) Platelet Count 223 K/UL (150-450) Mean Platelet Volume 5.2 FL (6.5-10.1) L Neutrophils (%) (Auto) 76.7 % (45.0-75.0) H Lymphocytes (%) (Auto) 12.4 % (20.0-45.0) L Monocytes (%) (Auto) 8.7 % (1.0-10.0) Eosinophils (%) (Auto) 0.9 % (0.0-3.0) Basophils (%) (Auto) 1.3 % (0.0-2.0) Erythrocyte Sedimentation Rate 107 MM/HR (0-20) H Sodium Level 140 MMOL/L (136-145) Potassium Level 3.7 MMOL/L (3.5-5.1) Chloride Level 108 MMOL/L (98-107) H Carbon Dioxide Level 27 MMOL/L (21-32) Anion Gap 5 mmol/L (5-15) Blood Urea Nitrogen 14 mg/dL (7-18) Creatinine 0.7 MG/DL (0.55-1.30) Estimat Glomerular Filtration Rate > 60 mL/min (>60) Glucose Level 101 MG/DL (74-106) Calcium Level 7.6 MG/DL (8.5-10.1) L Phosphorus Level 1.6 MG/DL (2.5-4.9) L Magnesium Level 1.3 MG/DL (1.8-2.4) L Total Bilirubin 0.2 MG/DL (0.2-1.0) Aspartate Amino Transf (AST/SGOT) 18 U/L (15-37) Alanine Aminotransferase (ALT/SGPT) 13 U/L (12-78) Alkaline Phosphatase 110 U/L (46-116) C-Reactive Protein, Quantitative 3.7 mg/dL (0.00-0.90) H Total Protein 5.8 G/DL (6.4-8.2) L Albumin 1.2 G/DL (3.4-5.0) L Globulin 4.6 g/dL Albumin/Globulin Ratio 0.3 (1.0-2.7) L Digoxin Level 0.7 NG/ML (0.5-2.0) Hepatitis A Antibody Total Pending Hepatitis B Surface Antibody Pending Hepatitis B Core Total Antibody Pending Hepatitis C Antibody Pending Hepatitis C RNA (PCR) IUs/ml Pending Hepatitis C RNA (PCR) log IUs/ml Pending Microbiology Date/Time Source Procedure Growth Status 05/28/18 17:30 Sputum AFB Specimen Processing Tissue - Final Resulted 05/28/18 17:30 Sputum Acid Fast Bacilli Smear - Final Resulted 05/28/18 17:30 Sputum Acid Fast Bacilli Culture Pending Resulted Intake and Output 05/29/18 05/30/18 19:00 07:00 Intake Total 1190 ml 120 ml Balance 1190 ml 120 ml Intake Oral 1140 ml 120 ml IV Total 50 ml # Voids 2 # Bowel Movements 2 Objective General Appearance: alert, thin, agitated EENT: PERRL/EOMI, normal ENT inspection Neck: non-tender, normal alignment, supple, normal inspection Cardiovascular: normal peripheral pulses, normal rate, no gallop/murmur, no JVD , irregularly irregular Respiratory/Chest: chest wall non-tender, lungs clear, normal breath sounds, no respiratory distress, no accessory muscle use Abdomen: normal bowel sounds, non tender, soft, no organomegaly, no mass Extremities: normal range of motion, non-tender 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 (8) Sepsis Assessment & Plan: Continue cefepime and vanco per ID (9) UTI (urinary tract infection) Assessment & Plan: Mixed culture-continue vanco and cefepime per ID (10) Leukocytosis (11) Deep venous thrombosis of right femoral vein Assessment & Plan: D/C eliquis. Start lovenox SQ; D/C lovenox on Tuesday prior to surgery (12) Gangrene Assessment & Plan: S/P above the knee amputation Bilat lower ext 05/23/18 (13) Pneumonia Assessment & Plan: Cavitary lesion. See ID note Status Narrative Discharge planning Daniel Jackson MD May 30, 2018 19:54
[2018-05-30 20:00] VITALS: BP 145/85
[2018-05-30] MEDS: Dyna-Hex 2% Top Sol 2oz TOPIC SCH (21:30)
[2018-05-30] MEDS: Enoxaparin 80mg Inj SUBQ SCH (21:32)
--- NOTE | 2018-05-30 23:53 | General Progress Note ---
Assessment/Plan Problem List: (1) Bipolar disorder ICD Codes: F31.9 - Bipolar disorder, unspecified SNOMED: [id number] (2) encephalopathy Assessment/Plan dc abilify start seroquel the pt lacks capacity to make decisions Subjective 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: Reports: anxiety, depressed Allergies: Coded Allergies: MILK (Verified Allergy, Unknown, 02/02/18) Subjective the pt is doing well no agitation Objective Last 24 Hour Vital Signs Date Time Temp Pulse Resp B/P (MAP) Pulse Ox O2 Delivery O2 Flow Rate FiO2 05/30/18 21:31 66 145/85 05/30/18 21:00 Nasal Cannula 2.0 05/30/18 20:00 97.8 66 19 145/85 (105) 98 05/30/18 16:00 97.7 89 20 119/66 (83) 98 05/30/18 12:00 97.9 91 20 133/67 (89) 98 05/30/18 09:05 64 05/30/18 09:01 64 138/77 05/30/18 09:00 Nasal Cannula 2.0 05/30/18 08:00 97.0 64 20 138/77 (97) 98 05/30/18 04:00 97.0 55 19 138/66 (90) 98 05/30/18 00:00 97.5 58 18 101/70 (80) 99 Intake and Output 05/29/18 05/30/18 18:59 06:59 Intake Total 1190 ml 120 ml Balance 1190 ml 120 ml Intake Oral 1140 ml 120 ml IV Total 50 ml # Voids 2 # Bowel Movements 2 Laboratory Tests 05/30/18 06:15: White Blood Count 12.2H, Red Blood Count 2.98L, Hemoglobin 8.7L, Hematocrit 26.8L, Mean Corpuscular Volume 90, Mean Corpuscular Hemoglobin 29.2, Mean Corpuscular Hemoglobin Concent 32.4, Red Cell Distribution Width 13.3, Platelet Count 223, Mean Platelet Volume 5.2L, Neutrophils (%) (Auto) 76.7H, Lymphocytes (%) (Auto) 12.4L, Monocytes (%) (Auto) 8.7, Eosinophils (%) (Auto) 0.9, Basophils (%) (Auto) 1.3, Erythrocyte Sedimentation Rate 107H, Sodium Level 140 , Potassium Level 3.7, Chloride Level 108H, Carbon Dioxide Level 27, Anion Gap 5 , Blood Urea Nitrogen 14, Creatinine 0.7, Estimat Glomerular Filtration Rate > 60, Glucose Level 101, Calcium Level 7.6L, Phosphorus Level 1.6L, Magnesium Level 1.3L, Total Bilirubin 0.2, Aspartate Amino Transf (AST/SGOT) 18, Alanine Aminotransferase (ALT/SGPT) 13, Alkaline Phosphatase 110, C-Reactive Protein, Quantitative 3.7H, Total Protein 5.8L, Albumin 1.2L, Globulin 4.6, Albumin/ Globulin Ratio 0.3L, Digoxin Level 0.7, Hepatitis A Antibody Total [Pending], Hepatitis B Surface Antibody [Pending], Hepatitis B Core Total Antibody [Pending ], Hepatitis C Antibody [Pending], Hepatitis C RNA (PCR) IUs/ml [Pending], Hepatitis C RNA (PCR) log IUs/ml [Pending] Height (Feet): 6 Height (Inches): 5.00 Weight (Pounds): 175 Julissa Still MD May 30, 2018 23:53
[2018-05-30] MEDS: Albuterol/Ipratropium 3ml neb HHN PRN (23:58)
[2018-05-31] VITALS: BP 140/79
[2018-05-31 04:00] VITALS: BP 129/58
[2018-05-31 06:57] LABS: BASOPHILS % (AUTO) 0.9 % (0.0-2.0); EOSINOPHILS % (AUTO) 0.3 % (0.0-3.0); HEMATOCRIT 27.3 % (42.0-52.0); HEMOGLOBIN 8.6 G/DL (14.2-18.0); LYMPHOCYTES % (AUTO) 13.2 % (20.0-45.0); MEAN CORPUSCULAR VOLUME 90 FL (80-99); MONOCYTES % (AUTO) 8.1 % (1.0-10.0); NEUTROPHILS % (AUTO) 77.5 % (45.0-75.0); PLATELET COUNT 225 K/UL (150-450); RED BLOOD COUNT 3.03 M/UL (4.70-6.10); RED CELL DISTRIBUTION WIDTH 13.8 % (11.6-14.8)
[2018-05-31 07:10] LABS: ALANINE AMINOTRANSFERASE 12 U/L (12-78); ALBUMIN 1.2 G/DL (3.4-5.0); ALBUMIN/GLOBULIN RATIO 0.2 (1.0-2.7); ALKALINE PHOSPHATASE 117 U/L (46-116); ANION GAP 4 mmol/L (5-15); ASPARTATE AMINO TRANSFERASE 21 U/L (15-37); BILIRUBIN,TOTAL 0.2 MG/DL (0.2-1.0); BLOOD UREA NITROGEN 12 mg/dL (7-18); CALCIUM 7.9 MG/DL (8.5-10.1); CARBON DIOXIDE 29 MMOL/L (21-32); CHLORIDE 110 MMOL/L (98-107); CREATININE 0.7 MG/DL (0.55-1.30); PHOSPHORUS 2.7 MG/DL (2.5-4.9); POTASSIUM 3.8 MMOL/L (3.5-5.1); SODIUM 143 MMOL/L (136-145)
[2018-05-31 08:00] VITALS: BP 125/62
[2018-05-31] MEDS: Docusate 100mg cap ORAL SCH ×2 (09:00→17:11)
[2018-05-31] MEDS: Miralax 17gm pkt ORAL SCH (09:00)
[2018-05-31] MEDS: Dakin's 0.125% Soln (Quarter Strength) 16oz TOPIC SCH (09:12)
[2018-05-31] MEDS: Pyridoxine 50mg tab ORAL SCH (09:13)
[2018-05-31] MEDS: Isoniazid 300mg tab ORAL SCH (09:13)
[2018-05-31] MEDS: Amiodarone 200mg tab ORAL SCH (09:14)
[2018-05-31] MEDS: Digoxin 0.125mg tab ORAL SCH (09:14)
[2018-05-31] MEDS: Metoprolol Tartrate 50mg tab ORAL SCH ×2 (09:15→21:29)
[2018-05-31] MEDS: Enoxaparin 80mg Inj SUBQ SCH ×2 (09:15→21:31)
[2018-05-31 12:00] VITALS: BP 141/76
--- NOTE | 2018-05-31 12:55 | Cardiac Electrophysiology PN ---
Assessment/Plan Assessment/Plan 1. Paroxysmal Atrial fibrillation and flutter with RVR Continue digoxin 0.125 daily metoprolol 50 bid and Amiodarone 200 daily. On Lovenox 70 b.i.d. 2. Borderline hypotension. Resolved 3. Fever, cough and sepsis, on antibiotic and in respiratory isolation. 4. History of dementia and severe psychosis, on Seroquel. 5. Severe bilateral leg ulcers and sacral decubitus. S/P Bilateral AKA by Dr. Enrrique GERMAN RN Subjective Subjective Still in resp isolation. No events Objective Last 24 Hour Vital Signs Date Time Temp Pulse Resp B/P (MAP) Pulse Ox O2 Delivery O2 Flow Rate FiO2 05/31/18 09:15 71 125/62 05/31/18 09:14 73 05/31/18 09:00 Nasal Cannula 2.0 05/31/18 08:00 97.4 71 20 125/62 (83) 99 05/31/18 04:00 97.6 68 20 129/58 (81) 99 05/31/18 00:20 79 20 Nasal Cannula 2.0 28 05/31/18 00:08 79 20 98 Nasal Cannula 2.0 28 05/31/18 00:00 98.1 62 18 140/79 (99) 97 05/30/18 23:58 89 22 100 Nasal Cannula 4.0 36 05/30/18 21:31 66 145/85 05/30/18 21:00 Nasal Cannula 2.0 05/30/18 20:00 97.8 66 19 145/85 (105) 98 05/30/18 19:00 98 Nasal Cannula 2.0 28 05/30/18 19:00 Nasal Cannula 2.0 28 05/30/18 16:00 97.7 89 20 119/66 (83) 98 Intake and Output 05/30/18 05/31/18 19:00 07:00 Intake Total 1490.0 ml Balance 1490.0 ml Intake Oral 360 ml IV Total 770.0 ml Other 360 ml # Voids 1 4 # Bowel Movements 1 Laboratory Tests Test 05/31/18 05:40 White Blood Count 12.0 K/UL (4.8-10.8) H Red Blood Count 3.03 M/UL (4.70-6.10) L Hemoglobin 8.6 G/DL (14.2-18.0) L Hematocrit 27.3 % (42.0-52.0) L Mean Corpuscular Volume 90 FL (80-99) Mean Corpuscular Hemoglobin 28.4 PG (27.0-31.0) Mean Corpuscular Hemoglobin Concent 31.5 G/DL (32.0-36.0) L Red Cell Distribution Width 13.8 % (11.6-14.8) Platelet Count 225 K/UL (150-450) Mean Platelet Volume 5.3 FL (6.5-10.1) L Neutrophils (%) (Auto) 77.5 % (45.0-75.0) H Lymphocytes (%) (Auto) 13.2 % (20.0-45.0) L Monocytes (%) (Auto) 8.1 % (1.0-10.0) Eosinophils (%) (Auto) 0.3 % (0.0-3.0) Basophils (%) (Auto) 0.9 % (0.0-2.0) Sodium Level 143 MMOL/L (136-145) Potassium Level 3.8 MMOL/L (3.5-5.1) Chloride Level 110 MMOL/L (98-107) H Carbon Dioxide Level 29 MMOL/L (21-32) Anion Gap 4 mmol/L (5-15) L Blood Urea Nitrogen 12 mg/dL (7-18) Creatinine 0.7 MG/DL (0.55-1.30) Estimat Glomerular Filtration Rate > 60 mL/min (>60) Glucose Level 104 MG/DL (74-106) Calcium Level 7.9 MG/DL (8.5-10.1) L Phosphorus Level 2.7 MG/DL (2.5-4.9) Magnesium Level 1.4 MG/DL (1.8-2.4) L Total Bilirubin 0.2 MG/DL (0.2-1.0) Aspartate Amino Transf (AST/SGOT) 21 U/L (15-37) Alanine Aminotransferase (ALT/SGPT) 12 U/L (12-78) Alkaline Phosphatase 117 U/L (46-116) H Total Protein 6.1 G/DL (6.4-8.2) L Albumin 1.2 G/DL (3.4-5.0) L Globulin 4.9 g/dL Albumin/Globulin Ratio 0.2 (1.0-2.7) L Microbiology Date/Time Source Procedure Growth Status 05/28/18 17:30 Sputum AFB Specimen Processing Tissue - Final Resulted 05/28/18 17:30 Sputum Acid Fast Bacilli Smear - Final Resulted 05/28/18 17:30 Sputum Acid Fast Bacilli Culture Pending Resulted Objective HEAD AND NECK: Mild JVD. LUNGS: Coarse rhonchi. CARDIOVASCULAR: Irregular S1 and S2 with no murmur. ABDOMEN: Soft. EXTREMITIES: S/P Bilateral Amandeep Mart MD May 31, 2018 12:55
--- NOTE | 2018-05-31 12:58 | Diagnostic Imaging Report ---
Indication: Chest pain Technique: One view of the chest Comparison: 05/29/2018 Findings: The heart is enlarged. Again demonstrated are bilateral pleural effusions, left greater than right, probably unchanged. Borderline interstitial congestive changes persist, stable. Left arm PICC remains. Impression: Unchanged, over one day, findings as above. This agrees with the preliminary interpretation provided overnight by [facility] teleradiology service.
--- NOTE | 2018-05-31 13:14 | Pulmonology Progress Note ---
Assessment/Plan Problems: (1) Sepsis (2) Atrial fibrillation (3) Decubitus skin ulcer (4) Bipolar disorder (5) CAD (coronary artery disease) (6) HTN (hypertension) (7) CVA (cerebral vascular accident) Assessment/Plan wbc slightly high still no new complains iv abx wound care f/u cultures monitor BP watch heart rate dvt prophylaxis symptomatic treatment Subjective ROS Limited/Unobtainable: No Allergies: Coded Allergies: MILK (Verified Allergy, Unknown, 02/02/18) Objective Last 24 Hour Vital Signs Date Time Temp Pulse Resp B/P (MAP) Pulse Ox O2 Delivery O2 Flow Rate FiO2 05/31/18 09:15 71 125/62 05/31/18 09:14 73 05/31/18 09:00 Nasal Cannula 2.0 05/31/18 08:00 97.4 71 20 125/62 (83) 99 05/31/18 04:00 97.6 68 20 129/58 (81) 99 05/31/18 00:20 79 20 Nasal Cannula 2.0 28 05/31/18 00:08 79 20 98 Nasal Cannula 2.0 28 05/31/18 00:00 98.1 62 18 140/79 (99) 97 05/30/18 23:58 89 22 100 Nasal Cannula 4.0 36 05/30/18 21:31 66 145/85 05/30/18 21:00 Nasal Cannula 2.0 05/30/18 20:00 97.8 66 19 145/85 (105) 98 05/30/18 19:00 98 Nasal Cannula 2.0 28 05/30/18 19:00 Nasal Cannula 2.0 28 05/30/18 16:00 97.7 89 20 119/66 (83) 98 Intake and Output 05/30/18 05/31/18 19:00 07:00 Intake Total 1490.0 ml Balance 1490.0 ml Intake Oral 360 ml IV Total 770.0 ml Other 360 ml # Voids 1 4 # Bowel Movements 1 Objective General Appearance: WD/WN HEENT: normocephalic Respiratory/Chest: chest wall non-tender, lungs clear, normal breath sounds Cardiovascular: normal peripheral pulses, normal rate Abdomen: normal bowel sounds, soft, non tender Genitourinary: normal external genitalia Extremities: s/p amputation Skin: no rash Microbiology Date/Time Source Procedure Growth Status 05/28/18 17:30 Sputum AFB Specimen Processing Tissue - Final Resulted 05/28/18 17:30 Sputum Acid Fast Bacilli Smear - Final Resulted 05/28/18 17:30 Sputum Acid Fast Bacilli Culture Pending Resulted Laboratory Tests 05/31/18 05:40: White Blood Count 12.0H, Red Blood Count 3.03L, Hemoglobin 8.6L, Hematocrit 27.3L, Mean Corpuscular Volume 90, Mean Corpuscular Hemoglobin 28.4, Mean Corpuscular Hemoglobin Concent 31.5L, Red Cell Distribution Width 13.8, Platelet Count 225, Mean Platelet Volume 5.3L, Neutrophils (%) (Auto) 77.5H, Lymphocytes (%) (Auto) 13.2L, Monocytes (%) (Auto) 8.1, Eosinophils (%) (Auto) 0.3, Basophils (%) (Auto) 0.9, Sodium Level 143, Potassium Level 3.8, Chloride Level 110H, Carbon Dioxide Level 29, Anion Gap 4L, Blood Urea Nitrogen 12, Creatinine 0.7, Estimat Glomerular Filtration Rate > 60, Glucose Level 104, Calcium Level 7.9L, Phosphorus Level 2.7, Magnesium Level 1.4L, Total Bilirubin 0.2, Aspartate Amino Transf (AST/SGOT) 21, Alanine Aminotransferase (ALT/SGPT) 12, Alkaline Phosphatase 117H, Total Protein 6.1L, Albumin 1.2L, Globulin 4.9, Albumin/Globulin Ratio 0.2L Current Medications Medications (Trade) Dose Ordered Sig/Erlin Route PRN Reason Start Time Stop Time Status Last Admin Dose Admin Acetaminophen (Tylenol) 650 mg Q4H PRN ORAL TEMP>100.5 05/31/18 08:45 06/11/18 16:44 Al Hydroxide/Mg Hydroxide (Mylanta) 15 ml Q6H PRN ORAL DYSPEPSIA 05/26/18 18:30 06/22/18 18:15 Albuterol/ Ipratropium (Albuterol/ Ipratropium) 3 ml Q4H PRN HHN Shortness of Breath 05/30/18 23:45 06/04/18 23:44 05/30/18 23:58 Amiodarone HCl (Cordarone) 200 mg DAILY ORAL 05/27/18 09:00 06/17/18 08:59 05/31/18 09:14 Chlorhexidine Gluconate (Yari-Hex 2%) 1 applic DAILY@2000 TOPIC 05/26/18 20:00 06/23/18 19:59 05/30/18 21:30 Digoxin (Lanoxin) 0.125 mg DAILY ORAL 05/27/18 09:00 06/12/18 08:59 05/31/18 09:14 Diphenhydramine HCl (Benadryl) 25 mg Q8H PRN ORAL Itching/Pruritis 05/26/18 16:46 06/22/18 16:45 Docusate Sodium (Colace) 100 mg TWICE A DAY ORAL 05/26/18 18:00 06/22/18 17:59 05/29/18 09:03 Enoxaparin Sodium (Lovenox) 80 mg Q12HR SUBQ 05/30/18 21:00 06/29/18 20:59 05/31/18 09:15 Ethambutol HCl (Myambutol) 1,200 mg DAILY ORAL 05/27/18 09:00 06/25/18 13:59 05/31/18 09:14 Gabapentin (Neurontin) 100 mg THREE TIMES A DAY ORAL 05/26/18 18:00 06/11/18 17:59 05/31/18 09:13 Hydromorphone HCl (Dilaudid) 0.5 mg Q3HR PRN IVP FOR MODERATE PAIN (4-6) 05/31/18 04:00 06/07/18 03:59 Hydromorphone HCl (Dilaudid) 1 mg Q3H PRN IVP Moderate Pain (Pain Scale 4-6) 05/31/18 04:00 06/07/18 03:59 Hydromorphone HCl (Dilaudid) 2 mg Q3H PRN IVP Severe Pain (Pain Scale 7-10) 05/30/18 21:30 06/06/18 21:29 05/31/18 10:58 Iopamidol (Isovue-300 100ml) 100 ml NOW PRN INJ Radiology Procedure 05/29/18 15:00 05/31/18 14:54 Isoniazid (Inh) 300 mg DAILY ORAL 05/27/18 09:00 06/25/18 13:59 05/31/18 09:13 Levofloxacin (Levaquin) 750 mg DAILY ORAL 05/27/18 09:00 06/02/18 13:00 05/31/18 09:13 Magnesium Hydroxide (Mom) 30 ml BIDPRN PRN ORAL Constipation 05/26/18 18:30 06/22/18 18:15 Metoprolol Tartrate (Lopressor) 50 mg Q12HR ORAL 05/26/18 21:00 06/11/18 20:59 05/31/18 09:15 Ondansetron HCl (Zofran) 4 mg Q6H PRN IVP Nausea & Vomiting 05/26/18 18:30 06/22/18 18:15 Polyethylene Glycol (Miralax) 17 gm DAILY ORAL 05/27/18 09:00 06/16/18 10:59 05/28/18 09:37 Pyrazinamide (Pza) 1,500 mg DAILY ORAL 05/27/18 09:00 06/25/18 13:59 05/31/18 09:13 Pyridoxine HCl (Vitamin B6) 50 mg DAILY ORAL 05/27/18 09:00 06/25/18 13:59 05/31/18 09:13 Quetiapine Fumarate (SEROquel) 100 mg BEDTIME ORAL 05/26/18 21:00 06/11/18 20:59 05/30/18 21:31 Sennosides (Senokot) 8.6 mg BIDPRN PRN ORAL Constipation 05/26/18 18:30 06/22/18 18:15 Sodium Hypochlorite (Dakin's Quarter Strength) 1 applic DAILY TOPIC 05/27/18 09:00 06/25/18 16:00 05/31/18 09:12 Minerva Montesinos MD May 31, 2018 13:14
[2018-05-31 16:00] VITALS: BP 114/72
[2018-05-31] MEDS ORDERED: NS 500ML ONE (16:51)
[2018-05-31] MEDS ORDERED: Tubing IV Secondary IV ONE (16:51)
[2018-05-31] MEDS: Albuterol/Ipratropium 3ml neb HHN PRN (17:05)
[2018-05-31] MEDS: LORazepam Inj 2mg/ml 1ml IV PRN (17:34)
--- NOTE | 2018-05-31 18:17 | Infectious Diseases Prog Note ---
Assessment/Plan Assessment/Plan - 68 yo male who was transferred from [place] where he initially presented for AMS from [facility]. Low grade fever, SP Leukocytosis ,recurrent- SP Small lung cavitary lesion/ PNA- suspect likely to aspiration; lower suspicion for TB and/or fungal etiologies -CT c/a/p: 10 mm opacity in the peripheral anterolateral right upper lobe with small central cavitation. Patchy groundglass opacity in the posterior right upper lobe. Suspect that these represent inflammatory/infectious lesions, but neoplastic etiology of either is certainly possible. Large left and moderate right pleural effusions. Resultant compressive atelectasis of portions of the lower lobes. Equivocal distal esophageal wall thickening, could indicate esophagitis if real -sp cx usual resp noah -AFB sp cx; smear neg x4; MTB PCR p -TB spot + -Neg Crag serum, legionella ag urine Hep C + ab- r/o actice chronic hepaitis C -CT abd- liver unremarkable -Hep Bc ab+ Sepsis /2 to bacteremia (at OSH) Likely source is skin ulcer Blood Cx 05/12/18 at [place] [facility] -Bcx 05/12 and (here) NTD 2d echo: no vegetations 05/15 CXR: Right midlung nodule. Absence of this finding on previous study makes this more likely to be a focus of inflammation, but rapidly growing neoplasm not excludable. Left basilar hazy opacity. Most likely a moderate to large pleural effusion.Component of infiltrate or atelectasis is also possible 05/12 CXR: Asymmetric ill-defined confluent groundglass opacity within the left mid/inferior lung, of uncertain etiology. B/l LE necrotic ulcer and toes- acute on chronci, ischemic w/ likely superinfection- likely non-salvageable per surgery -05/23 SP B/l BKA Afib w/ RVR Encephalopathy , improving -CT head w/wo: No acute intracranial abnormalities. Mild atrophy of the brain. Nonspecific white matter hypoattenuation probably due to chronic small vessel disease. Likely secondary to sepsis Cerebrovascular accident. Hypertension. Sacral decubitus ulcers. Bipolar disorder. Coronary artery disease. Plan - Continue Levaquin #6 (abx d#20) and flagyl #13 for cavitary/aspiration PNA -low threshold to switch Cefepime and Flagyl to Meropenem if decompensates -05/26 SP IV Vancomycin #15, Cefepime #15 -Per Dept of Public health and to aid on discharge planning back to SNF, will cont empiric TB regimen with DONN (started on 05/26- ); Levaquin instead of Rifampin or Rifabutin given multiple drug interactions of Rifampin (w/ Amiodarone, quetiapine, metoprolol) -Dept of wants to treat empirically until final AFB culture results -monitor LFTs -EGK monitor QTc -Airborne isolation -f/u AFB sp cx,MTB PCR x1 -f/u cocci ab, fungal sp cx, - f/u Blood Cx - Wound care - Monitor CBC and Temps -f/u sp cx, u/a w/ reflex -Cdiff if diarrhea -Sx f/u -f/u Hep C VL, Hep A IgG, Hebc IgG and Hep Bs ab Thank you for this consult. We will continue to follow the patient during this hospitalization. Discussed withRN Subjective Allergies: Coded Allergies: MILK (Verified Allergy, Unknown, 02/02/18) Subjective afebrile leukocytosis more alert- oriented to place Objective Vital Signs Last 24 Hour Vital Signs Date Time Temp Pulse Resp B/P (MAP) Pulse Ox O2 Delivery O2 Flow Rate FiO2 05/31/18 17:15 80 14 98 Nasal Cannula 4.0 36 05/31/18 17:06 70 18 97 Nasal Cannula 4.0 36 05/31/18 16:00 98.8 72 20 114/72 (86) 99 05/31/18 12:00 98.5 83 18 141/76 (97) 99 05/31/18 09:56 Nasal Cannula 2.0 28 05/31/18 09:56 96 Nasal Cannula 2.0 28 05/31/18 09:48 75 20 Nasal Cannula 2.0 28 05/31/18 09:15 71 125/62 05/31/18 09:14 73 05/31/18 09:00 Nasal Cannula 2.0 05/31/18 08:00 97.4 71 20 125/62 (83) 99 05/31/18 04:00 97.6 68 20 129/58 (81) 99 05/31/18 00:20 79 20 Nasal Cannula 2.0 28 05/31/18 00:08 79 20 98 Nasal Cannula 2.0 28 05/31/18 00:00 98.1 62 18 140/79 (99) 97 05/30/18 23:58 89 22 100 Nasal Cannula 4.0 36 05/30/18 21:31 66 145/85 05/30/18 21:00 Nasal Cannula 2.0 05/30/18 20:00 97.8 66 19 145/85 (105) 98 05/30/18 19:00 98 Nasal Cannula 2.0 28 05/30/18 19:00 Nasal Cannula 2.0 28 Height (Feet): 6 Height (Inches): 5.00 Weight (Pounds): 175 Objective Gen: NAD. Mumbling HEENT: NCAT, MMM, EOMI, No Oral lesion, no scleral icterus NECK: full range of motion, supple, no meningismus, No LAD, No JVD LUNGS: CTAB, No W/C, No Accessory muscle use CARDS: RRR, S1, S2, No M/R/G ABD: Soft, NT, ND, No R/G, + BS, No HSM, No Masses : Deferred Ext: C/C/E, Pulses 2+ B/L (DP, Rad) NEURO: A/O x 0, Strength and Sensation Grossly intact PSYCH: mood/affect normal SKIN: Left foot wound. No purulent drainage, Feet now bandaged Laboratory Tests Test 05/31/18 05:40 White Blood Count 12.0 K/UL (4.8-10.8) H Red Blood Count 3.03 M/UL (4.70-6.10) L Hemoglobin 8.6 G/DL (14.2-18.0) L Hematocrit 27.3 % (42.0-52.0) L Mean Corpuscular Volume 90 FL (80-99) Mean Corpuscular Hemoglobin 28.4 PG (27.0-31.0) Mean Corpuscular Hemoglobin Concent 31.5 G/DL (32.0-36.0) L Red Cell Distribution Width 13.8 % (11.6-14.8) Platelet Count 225 K/UL (150-450) Mean Platelet Volume 5.3 FL (6.5-10.1) L Neutrophils (%) (Auto) 77.5 % (45.0-75.0) H Lymphocytes (%) (Auto) 13.2 % (20.0-45.0) L Monocytes (%) (Auto) 8.1 % (1.0-10.0) Eosinophils (%) (Auto) 0.3 % (0.0-3.0) Basophils (%) (Auto) 0.9 % (0.0-2.0) Sodium Level 143 MMOL/L (136-145) Potassium Level 3.8 MMOL/L (3.5-5.1) Chloride Level 110 MMOL/L (98-107) H Carbon Dioxide Level 29 MMOL/L (21-32) Anion Gap 4 mmol/L (5-15) L Blood Urea Nitrogen 12 mg/dL (7-18) Creatinine 0.7 MG/DL (0.55-1.30) Estimat Glomerular Filtration Rate > 60 mL/min (>60) Glucose Level 104 MG/DL (74-106) Calcium Level 7.9 MG/DL (8.5-10.1) L Phosphorus Level 2.7 MG/DL (2.5-4.9) Magnesium Level 1.4 MG/DL (1.8-2.4) L Total Bilirubin 0.2 MG/DL (0.2-1.0) Aspartate Amino Transf (AST/SGOT) 21 U/L (15-37) Alanine Aminotransferase (ALT/SGPT) 12 U/L (12-78) Alkaline Phosphatase 117 U/L (46-116) H Total Protein 6.1 G/DL (6.4-8.2) L Albumin 1.2 G/DL (3.4-5.0) L Globulin 4.9 g/dL Albumin/Globulin Ratio 0.2 (1.0-2.7) L Current Medications Medications (Trade) Dose Ordered Sig/Erlin Route PRN Reason Start Time Stop Time Status Last Admin Dose Admin Acetaminophen (Tylenol) 650 mg Q4H PRN ORAL TEMP>100.5 05/31/18 08:45 06/11/18 16:44 Al Hydroxide/Mg Hydroxide (Mylanta) 15 ml Q6H PRN ORAL DYSPEPSIA 05/26/18 18:30 06/22/18 18:15 Albuterol/ Ipratropium (Albuterol/ Ipratropium) 3 ml Q4H PRN HHN Shortness of Breath 05/30/18 23:45 06/04/18 23:44 05/31/18 17:05 Amiodarone HCl (Cordarone) 200 mg DAILY ORAL 05/27/18 09:00 06/17/18 08:59 05/31/18 09:14 Chlorhexidine Gluconate (Yari-Hex 2%) 1 applic DAILY@1999 TOPIC 05/26/18 20:00 06/23/18 19:59 05/30/18 21:30 Digoxin (Lanoxin) 0.125 mg DAILY ORAL 05/27/18 09:00 06/12/18 08:59 05/31/18 09:14 Diphenhydramine HCl (Benadryl) 25 mg Q8H PRN ORAL Itching/Pruritis 05/26/18 16:46 06/22/18 16:45 Docusate Sodium (Colace) 100 mg TWICE A DAY ORAL 05/26/18 18:00 06/22/18 17:59 05/29/18 09:03 Enoxaparin Sodium (Lovenox) 80 mg Q12HR SUBQ 05/30/18 21:00 06/29/18 20:59 05/31/18 09:15 Ethambutol HCl (Myambutol) 1,200 mg DAILY ORAL 05/27/18 09:00 06/25/18 13:59 05/31/18 09:14 Gabapentin (Neurontin) 100 mg THREE TIMES A DAY ORAL 05/26/18 18:00 06/11/18 17:59 05/31/18 14:32 Hydromorphone HCl (Dilaudid) 0.5 mg Q3HR PRN IVP FOR MODERATE PAIN (4-6) 05/31/18 04:00 06/07/18 03:59 Hydromorphone HCl (Dilaudid) 1 mg Q3H PRN IVP Moderate Pain (Pain Scale 4-6) 05/31/18 04:00 06/07/18 03:59 Hydromorphone HCl (Dilaudid) 2 mg Q3H PRN IVP Severe Pain (Pain Scale 7-10) 05/30/18 21:30 06/06/18 21:29 05/31/18 14:23 Isoniazid (Inh) 300 mg DAILY ORAL 05/27/18 09:00 06/25/18 13:59 05/31/18 09:13 Levofloxacin (Levaquin) 750 mg DAILY ORAL 05/27/18 09:00 06/02/18 13:00 05/31/18 09:13 Lorazepam (Ativan 2mg/ml 1ml) 1 mg Q4H PRN IV For Anxiety 05/31/18 17:15 06/07/18 17:14 05/31/18 17:34 Magnesium Hydroxide (Mom) 30 ml BIDPRN PRN ORAL Constipation 05/26/18 18:30 06/22/18 18:15 Metoprolol Tartrate (Lopressor) 50 mg Q12HR ORAL 05/26/18 21:00 06/11/18 20:59 05/31/18 09:15 Ondansetron HCl (Zofran) 4 mg Q6H PRN IVP Nausea & Vomiting 05/26/18 18:30 06/22/18 18:15 Polyethylene Glycol (Miralax) 17 gm DAILY ORAL 05/27/18 09:00 06/16/18 10:59 05/28/18 09:37 Pyrazinamide (Pza) 1,500 mg DAILY ORAL 05/27/18 09:00 06/25/18 13:59 05/31/18 09:13 Pyridoxine HCl (Vitamin B6) 50 mg DAILY ORAL 05/27/18 09:00 06/25/18 13:59 05/31/18 09:13 Quetiapine Fumarate (SEROquel) 100 mg BEDTIME ORAL 05/26/18 21:00 06/11/18 20:59 05/30/18 21:31 Sennosides (Senokot) 8.6 mg BIDPRN PRN ORAL Constipation 05/26/18 18:30 06/22/18 18:15 Sodium Hypochlorite (Dakin's Quarter Strength) 1 applic DAILY TOPIC 05/27/18 09:00 06/25/18 16:00 05/31/18 09:12 Alma Elkins M.D. May 31, 2018 18:17
[2018-05-31] MEDS ORDERED: Cathflo Alteplase 2mg Inj INJ SCH (19:30)
--- NOTE | 2018-05-31 19:38 | Internal Med Progress Note ---
Subjective Date of Service: May 31, 2018 Physician Name JacksonDaniel wilson Attending Physician Pedro Caban MD Current Medications Medications (Trade) Dose Ordered Sig/Erlin Route PRN Reason Start Time Stop Time Status Last Admin Dose Admin Acetaminophen (Tylenol) 650 mg Q4H PRN ORAL TEMP>100.5 05/31/18 08:45 06/11/18 16:44 Al Hydroxide/Mg Hydroxide (Mylanta) 15 ml Q6H PRN ORAL DYSPEPSIA 05/26/18 18:30 06/22/18 18:15 Albuterol/ Ipratropium (Albuterol/ Ipratropium) 3 ml Q4H PRN HHN Shortness of Breath 05/30/18 23:45 06/04/18 23:44 05/31/18 17:05 Alteplase, Recombinant (Cathflo) 2 mg ONCE INJ 05/31/18 19:30 05/31/18 21:00 Amiodarone HCl (Cordarone) 200 mg DAILY ORAL 05/27/18 09:00 06/17/18 08:59 05/31/18 09:14 Chlorhexidine Gluconate (Yari-Hex 2%) 1 applic DAILY@2000 TOPIC 05/26/18 20:00 06/23/18 19:59 05/30/18 21:30 Digoxin (Lanoxin) 0.125 mg DAILY ORAL 05/27/18 09:00 06/12/18 08:59 05/31/18 09:14 Diphenhydramine HCl (Benadryl) 25 mg Q8H PRN ORAL Itching/Pruritis 05/26/18 16:46 06/22/18 16:45 Docusate Sodium (Colace) 100 mg TWICE A DAY ORAL 05/26/18 18:00 06/22/18 17:59 05/29/18 09:03 Enoxaparin Sodium (Lovenox) 80 mg Q12HR SUBQ 05/30/18 21:00 06/29/18 20:59 05/31/18 09:15 Ethambutol HCl (Myambutol) 1,200 mg DAILY ORAL 05/27/18 09:00 06/25/18 13:59 05/31/18 09:14 Gabapentin (Neurontin) 100 mg THREE TIMES A DAY ORAL 05/26/18 18:00 06/11/18 17:59 05/31/18 14:32 Hydromorphone HCl (Dilaudid) 0.5 mg Q3HR PRN IVP FOR MODERATE PAIN (4-6) 05/31/18 04:00 06/07/18 03:59 Hydromorphone HCl (Dilaudid) 1 mg Q3H PRN IVP Moderate Pain (Pain Scale 4-6) 05/31/18 04:00 06/07/18 03:59 Hydromorphone HCl (Dilaudid) 2 mg Q3H PRN IVP Severe Pain (Pain Scale 7-10) 05/30/18 21:30 06/06/18 21:29 05/31/18 14:23 Isoniazid (Inh) 300 mg DAILY ORAL 05/27/18 09:00 06/25/18 13:59 05/31/18 09:13 Levofloxacin 100 ml @ 100 mls/hr Q24H IVPB 06/01/18 09:00 06/08/18 08:59 Lorazepam (Ativan 2mg/ml 1ml) 1 mg Q4H PRN IV For Anxiety 05/31/18 17:15 06/07/18 17:14 05/31/18 17:34 Magnesium Hydroxide (Mom) 30 ml BIDPRN PRN ORAL Constipation 05/26/18 18:30 06/22/18 18:15 Metoprolol Tartrate (Lopressor) 50 mg Q12HR ORAL 05/26/18 21:00 06/11/18 20:59 05/31/18 09:15 Metronidazole 100 ml @ 100 mls/hr Q8HR IVPB 05/31/18 20:00 06/07/18 19:59 Ondansetron HCl (Zofran) 4 mg Q6H PRN IVP Nausea & Vomiting 05/26/18 18:30 06/22/18 18:15 Polyethylene Glycol (Miralax) 17 gm DAILY ORAL 05/27/18 09:00 06/16/18 10:59 05/28/18 09:37 Pyrazinamide (Pza) 1,500 mg DAILY ORAL 05/27/18 09:00 06/25/18 13:59 05/31/18 09:13 Pyridoxine HCl (Vitamin B6) 50 mg DAILY ORAL 05/27/18 09:00 1/6/19 13:59 05/31/18 09:13 Quetiapine Fumarate (SEROquel) 100 mg BEDTIME ORAL 05/26/18 21:00 06/11/18 20:59 05/30/18 21:31 Sennosides (Senokot) 8.6 mg BIDPRN PRN ORAL Constipation 05/26/18 18:30 06/22/18 18:15 Sodium Hypochlorite (Dakin's Quarter Strength) 1 applic DAILY TOPIC 05/27/18 09:00 06/25/18 16:00 05/31/18 09:12 Allergies: Coded Allergies: MILK (Verified Allergy, Unknown, 02/02/18) ROS Limited/Unobtainable: No Constitutional: Reports: no symptoms HEENT: Reports: no symptoms Cardiovascular: Reports: no symptoms Respiratory: Reports: no symptoms Gastrointestinal/Abdominal: Reports: no symptoms Genitourinary: Reports: no symptoms 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: Reports: no symptoms Subjective 68 YO A M admitted with altered mental status. Now sepsis and atrial fibrillation with rapid rate. Cover for Int Med-Dr Caban. ICU. S/P bilateral above the knee amputation Tu 05/23/18 for gangrene Objective Last Vital Signs Date Time Temp Pulse Resp B/P (MAP) Pulse Ox O2 Delivery O2 Flow Rate FiO2 05/31/18 17:15 80 14 98 Nasal Cannula 4.0 36 05/31/18 16:00 98.8 114/72 (86) Laboratory Tests Test 05/31/18 05:40 White Blood Count 12.0 K/UL (4.8-10.8) H Red Blood Count 3.03 M/UL (4.70-6.10) L Hemoglobin 8.6 G/DL (14.2-18.0) L Hematocrit 27.3 % (42.0-52.0) L Mean Corpuscular Volume 90 FL (80-99) Mean Corpuscular Hemoglobin 28.4 PG (27.0-31.0) Mean Corpuscular Hemoglobin Concent 31.5 G/DL (32.0-36.0) L Red Cell Distribution Width 13.8 % (11.6-14.8) Platelet Count 225 K/UL (150-450) Mean Platelet Volume 5.3 FL (6.5-10.1) L Neutrophils (%) (Auto) 77.5 % (45.0-75.0) H Lymphocytes (%) (Auto) 13.2 % (20.0-45.0) L Monocytes (%) (Auto) 8.1 % (1.0-10.0) Eosinophils (%) (Auto) 0.3 % (0.0-3.0) Basophils (%) (Auto) 0.9 % (0.0-2.0) Sodium Level 143 MMOL/L (136-145) Potassium Level 3.8 MMOL/L (3.5-5.1) Chloride Level 110 MMOL/L (98-107) H Carbon Dioxide Level 29 MMOL/L (21-32) Anion Gap 4 mmol/L (5-15) L Blood Urea Nitrogen 12 mg/dL (7-18) Creatinine 0.7 MG/DL (0.55-1.30) Estimat Glomerular Filtration Rate > 60 mL/min (>60) Glucose Level 104 MG/DL (74-106) Calcium Level 7.9 MG/DL (8.5-10.1) L Phosphorus Level 2.7 MG/DL (2.5-4.9) Magnesium Level 1.4 MG/DL (1.8-2.4) L Total Bilirubin 0.2 MG/DL (0.2-1.0) Aspartate Amino Transf (AST/SGOT) 21 U/L (15-37) Alanine Aminotransferase (ALT/SGPT) 12 U/L (12-78) Alkaline Phosphatase 117 U/L (46-116) H Total Protein 6.1 G/DL (6.4-8.2) L Albumin 1.2 G/DL (3.4-5.0) L Globulin 4.9 g/dL Albumin/Globulin Ratio 0.2 (1.0-2.7) L Intake and Output 05/30/18 05/31/18 19:00 07:00 Intake Total 1490.0 ml Balance 1490.0 ml Intake Oral 360 ml IV Total 770.0 ml Other 360 ml # Voids 1 4 # Bowel Movements 1 Objective General Appearance: alert, thin, agitated EENT: PERRL/EOMI, normal ENT inspection Neck: non-tender, normal alignment, supple, normal inspection Cardiovascular: normal peripheral pulses, normal rate, no gallop/murmur, no JVD , irregularly irregular Respiratory/Chest: chest wall non-tender, lungs clear, normal breath sounds, no respiratory distress, no accessory muscle use Abdomen: normal bowel sounds, non tender, soft, no organomegaly, no mass Extremities: normal range of motion, non-tender 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 (8) Sepsis Assessment & Plan: Continue cefepime and vanco per ID (9) UTI (urinary tract infection) Assessment & Plan: Mixed culture-continue vanco and cefepime per ID (10) Leukocytosis (11) Deep venous thrombosis of right femoral vein Assessment & Plan: D/C eliquis. Start lovenox SQ; D/C lovenox on Tuesday prior to surgery (12) Gangrene Assessment & Plan: S/P above the knee amputation Bilat lower ext 05/23/18 (13) Pneumonia Assessment & Plan: Cavitary lesion. See ID note Daniel Jackson MD May 31, 2018 19:38
[2018-05-31 20:00] VITALS: BP 135/89
[2018-05-31] MEDS: Dyna-Hex 2% Top Sol 2oz TOPIC SCH (21:28)
[2018-06-01] VITALS: BP 113/69
[2018-06-01 04:00] VITALS: BP 125/75
[2018-06-01 06:51] LABS: ANION GAP 2 mmol/L (5-15); BLOOD UREA NITROGEN 9 mg/dL (7-18); CARBON DIOXIDE 30 MMOL/L (21-32); CHLORIDE 109 MMOL/L (98-107); CREATININE 0.7 MG/DL (0.55-1.30); POTASSIUM 3.7 MMOL/L (3.5-5.1); SODIUM 141 MMOL/L (136-145)
[2018-06-01 06:54] LABS: BASOPHILS % (AUTO) 0.9 % (0.0-2.0); EOSINOPHILS % (AUTO) 0.4 % (0.0-3.0); HEMATOCRIT 27.1 % (42.0-52.0); HEMOGLOBIN 8.6 G/DL (14.2-18.0); LYMPHOCYTES % (AUTO) 11.9 % (20.0-45.0); MEAN CORPUSCULAR VOLUME 90 FL (80-99); MONOCYTES % (AUTO) 8.3 % (1.0-10.0); NEUTROPHILS % (AUTO) 78.5 % (45.0-75.0); PLATELET COUNT 256 K/UL (150-450); RED BLOOD COUNT 3.01 M/UL (4.70-6.10); RED CELL DISTRIBUTION WIDTH 13.2 % (11.6-14.8)
[2018-06-01 08:00] VITALS: BP 143/98
[2018-06-01] MEDS: Pyridoxine 50mg tab ORAL SCH (09:00)
[2018-06-01] MEDS: Docusate 100mg cap ORAL SCH ×2 (09:00→19:06)
[2018-06-01] MEDS: Dakin's 0.125% Soln (Quarter Strength) 16oz TOPIC SCH (09:00)
[2018-06-01] MEDS: Digoxin 0.125mg tab ORAL SCH (10:24)
[2018-06-01] MEDS: Amiodarone 200mg tab ORAL SCH (10:25)
[2018-06-01] MEDS: Isoniazid 300mg tab ORAL SCH (10:26)
[2018-06-01] MEDS: Metoprolol Tartrate 50mg tab ORAL SCH ×2 (10:27→21:31)
[2018-06-01] MEDS: Miralax 17gm pkt ORAL SCH (10:27)
[2018-06-01] MEDS: Enoxaparin 80mg Inj SUBQ SCH ×2 (10:32→21:31)
[2018-06-01] MEDS: Hydromorphone 0.5mg/0.5ml inj IVP PRN (10:34)
--- NOTE | 2018-06-01 11:40 | General Progress Note ---
Assessment/Plan Problem List: (1) Bipolar disorder ICD Codes: F31.9 - Bipolar disorder, unspecified SNOMED: [id number] (2) encephalopathy Assessment/Plan dc abilify start seroquel the pt lacks capacity to make decisions Subjective 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: Reports: anxiety Allergies: Coded Allergies: MILK (Verified Allergy, Unknown, 02/02/18) Subjective the pt is the same with cognitive impairment no agitation Objective Last 24 Hour Vital Signs Date Time Temp Pulse Resp B/P (MAP) Pulse Ox O2 Delivery O2 Flow Rate FiO2 06/01/18 10:27 82 143/98 06/01/18 10:24 82 06/01/18 04:00 97.9 78 19 125/75 (92) 98 06/01/18 00:00 97.3 69 20 113/69 (84) 99 05/31/18 21:29 78 135/89 05/31/18 21:00 Nasal Cannula 2.0 05/31/18 20:18 99 Nasal Cannula 2.0 28 05/31/18 20:18 Nasal Cannula 2.0 28 05/31/18 20:18 88 18 Nasal Cannula 2.0 28 05/31/18 20:00 98.2 78 22 135/89 (104) 98 05/31/18 17:15 80 14 98 Nasal Cannula 4.0 36 05/31/18 17:06 70 18 97 Nasal Cannula 4.0 36 05/31/18 16:00 98.8 72 20 114/72 (86) 99 05/31/18 12:00 98.5 83 18 141/76 (97) 99 Intake and Output 05/31/18 06/01/18 19:00 07:00 Intake Total 420 ml 100 ml Balance 420 ml 100 ml Intake Oral 420 ml IV Total 100 ml # Voids 5 3 # Bowel Movements 1 Laboratory Tests 06/01/18 06:00: White Blood Count 11.0H, Red Blood Count 3.01L, Hemoglobin 8.6L, Hematocrit 27.1L, Mean Corpuscular Volume 90, Mean Corpuscular Hemoglobin 28.5, Mean Corpuscular Hemoglobin Concent 31.7L, Red Cell Distribution Width 13.2, Platelet Count 256, Mean Platelet Volume 5.4L, Neutrophils (%) (Auto) 78.5H, Lymphocytes (%) (Auto) 11.9L, Monocytes (%) (Auto) 8.3, Eosinophils (%) (Auto) 0.4, Basophils (%) (Auto) 0.9, Sodium Level 141, Potassium Level 3.7, Chloride Level 109H, Carbon Dioxide Level 30, Anion Gap 2L, Blood Urea Nitrogen 9, Creatinine 0.7, Estimat Glomerular Filtration Rate > 60, Glucose Level 124H, Calcium Level 8.0L Height (Feet): 6 Height (Inches): 5.00 Weight (Pounds): 175 Julissa Still MD Jun 01, 2018 11:40
[2018-06-01 12:00] VITALS: BP 154/80
--- NOTE | 2018-06-01 12:03 | Infectious Diseases Prog Note ---
Assessment/Plan Assessment/Plan - 68 yo male who was transferred from [place] where he initially presented for AMS from [facility]. Low grade fever, SP Leukocytosis ,recurrent- SP Small lung cavitary lesion/ PNA- suspect likely to aspiration; lower suspicion for TB and/or fungal etiologies -CT c/a/p: 10 mm opacity in the peripheral anterolateral right upper lobe with small central cavitation. Patchy groundglass opacity in the posterior right upper lobe. Suspect that these represent inflammatory/infectious lesions, but neoplastic etiology of either is certainly possible. Large left and moderate right pleural effusions. Resultant compressive atelectasis of portions of the lower lobes. Equivocal distal esophageal wall thickening, could indicate esophagitis if real -sp cx usual resp noah -AFB sp cx; smear neg x4; MTB PCR p -TB spot + -Neg Crag serum, legionella ag urine Hep C + ab- r/o actice chronic hepaitis C -CT abd- liver unremarkable -Hep Bc ab+ Sepsis /2 to bacteremia (at OSH) Likely source is skin ulcer Blood Cx 05/12/18 at [place] [facility] -Bcx 05/12 and (here) NTD 2d echo: no vegetations 05/15 CXR: Right midlung nodule. Absence of this finding on previous study makes this more likely to be a focus of inflammation, but rapidly growing neoplasm not excludable. Left basilar hazy opacity. Most likely a moderate to large pleural effusion.Component of infiltrate or atelectasis is also possible 05/12 CXR: Asymmetric ill-defined confluent groundglass opacity within the left mid/inferior lung, of uncertain etiology. B/l LE necrotic ulcer and toes- acute on chronci, ischemic w/ likely superinfection- likely non-salvageable per surgery -05/23 SP B/l BKA Afib w/ RVR Encephalopathy , improving -CT head w/wo: No acute intracranial abnormalities. Mild atrophy of the brain. Nonspecific white matter hypoattenuation probably due to chronic small vessel disease. Likely secondary to sepsis Cerebrovascular accident. Hypertension. Sacral decubitus ulcers. Bipolar disorder. Coronary artery disease. Plan - Continue Levaquin #7 (abx d#21) and flagyl #14 for cavitary/aspiration PNA -low threshold to switch Cefepime and Flagyl to Meropenem if decompensates -05/26 SP IV Vancomycin #15, Cefepime #15 -Per Dept of Public health and to aid on discharge planning back to SNF, will cont empiric TB regimen with DONN (started on 05/26- ); Levaquin instead of Rifampin or Rifabutin given multiple drug interactions of Rifampin (w/ Amiodarone, quetiapine, metoprolol) -Dept of wants to treat empirically until final AFB culture results -monitor LFTs -EGK monitor QTc -Airborne isolation -f/u AFB sp cx,MTB PCR x1 -f/u cocci ab, fungal sp cx, - f/u Blood Cx - Wound care - Monitor CBC and Temps -f/u sp cx, u/a w/ reflex -Cdiff if diarrhea -Sx f/u -f/u Hep C VL, Hep A IgG, Hebc IgG and Hep Bs ab Thank you for this consult. We will continue to follow the patient during this hospitalization. Discussed withRN Subjective Allergies: Coded Allergies: MILK (Verified Allergy, Unknown, 02/02/18) Subjective afebrile leukocytosis more alert at 2l NC Objective Vital Signs Last 24 Hour Vital Signs Date Time Temp Pulse Resp B/P (MAP) Pulse Ox O2 Delivery O2 Flow Rate FiO2 06/01/18 10:27 82 143/98 06/01/18 10:24 82 06/01/18 04:00 97.9 78 19 125/75 (92) 98 06/01/18 00:00 97.3 69 20 113/69 (84) 99 05/31/18 21:29 78 135/89 05/31/18 21:00 Nasal Cannula 2.0 05/31/18 20:18 99 Nasal Cannula 2.0 28 05/31/18 20:18 Nasal Cannula 2.0 28 05/31/18 20:18 88 18 Nasal Cannula 2.0 28 05/31/18 20:00 98.2 78 22 135/89 (104) 98 05/31/18 17:15 80 14 98 Nasal Cannula 4.0 36 05/31/18 17:06 70 18 97 Nasal Cannula 4.0 36 05/31/18 16:00 98.8 72 20 114/72 (86) 99 05/31/18 12:00 98.5 83 18 141/76 (97) 99 Height (Feet): 6 Height (Inches): 5.00 Weight (Pounds): 175 Objective Gen: NAD. Mumbling HEENT: NCAT, MMM, EOMI, No Oral lesion, no scleral icterus NECK: full range of motion, supple, no meningismus, No LAD, No JVD LUNGS: CTAB, No W/C, No Accessory muscle use CARDS: RRR, S1, S2, No M/R/G ABD: Soft, NT, ND, No R/G, + BS, No HSM, No Masses : Deferred Ext: C/C/E, Pulses 2+ B/L (DP, Rad) NEURO: A/O x 0, Strength and Sensation Grossly intact PSYCH: mood/affect normal SKIN: Left foot wound. No purulent drainage, Feet now bandaged Laboratory Tests Test 06/01/18 06:00 White Blood Count 11.0 K/UL (4.8-10.8) H Red Blood Count 3.01 M/UL (4.70-6.10) L Hemoglobin 8.6 G/DL (14.2-18.0) L Hematocrit 27.1 % (42.0-52.0) L Mean Corpuscular Volume 90 FL (80-99) Mean Corpuscular Hemoglobin 28.5 PG (27.0-31.0) Mean Corpuscular Hemoglobin Concent 31.7 G/DL (32.0-36.0) L Red Cell Distribution Width 13.2 % (11.6-14.8) Platelet Count 256 K/UL (150-450) Mean Platelet Volume 5.4 FL (6.5-10.1) L Neutrophils (%) (Auto) 78.5 % (45.0-75.0) H Lymphocytes (%) (Auto) 11.9 % (20.0-45.0) L Monocytes (%) (Auto) 8.3 % (1.0-10.0) Eosinophils (%) (Auto) 0.4 % (0.0-3.0) Basophils (%) (Auto) 0.9 % (0.0-2.0) Sodium Level 141 MMOL/L (136-145) Potassium Level 3.7 MMOL/L (3.5-5.1) Chloride Level 109 MMOL/L (98-107) H Carbon Dioxide Level 30 MMOL/L (21-32) Anion Gap 2 mmol/L (5-15) L Blood Urea Nitrogen 9 mg/dL (7-18) Creatinine 0.7 MG/DL (0.55-1.30) Estimat Glomerular Filtration Rate > 60 mL/min (>60) Glucose Level 124 MG/DL (74-106) H Calcium Level 8.0 MG/DL (8.5-10.1) L Current Medications Medications (Trade) Dose Ordered Sig/Erlin Route PRN Reason Start Time Stop Time Status Last Admin Dose Admin Acetaminophen (Tylenol) 650 mg Q4H PRN ORAL TEMP>100.5 05/31/18 08:45 06/11/18 16:44 Al Hydroxide/Mg Hydroxide (Mylanta) 15 ml Q6H PRN ORAL DYSPEPSIA 05/26/18 18:30 06/22/18 18:15 Albuterol/ Ipratropium (Albuterol/ Ipratropium) 3 ml Q4H PRN HHN Shortness of Breath 05/30/18 23:45 06/04/18 23:44 05/31/18 17:05 Amiodarone HCl (Cordarone) 200 mg DAILY ORAL 05/27/18 09:00 06/17/18 08:59 06/01/18 10:25 Chlorhexidine Gluconate (Yari-Hex 2%) 1 applic DAILY@1999 TOPIC 05/26/18 20:00 06/23/18 19:59 05/31/18 21:28 Digoxin (Lanoxin) 0.125 mg DAILY ORAL 05/27/18 09:00 06/12/18 08:59 06/01/18 10:24 Diphenhydramine HCl (Benadryl) 25 mg Q8H PRN ORAL Itching/Pruritis 05/26/18 16:46 06/22/18 16:45 Docusate Sodium (Colace) 100 mg TWICE A DAY ORAL 05/26/18 18:00 06/22/18 17:59 06/01/18 09:00 Enoxaparin Sodium (Lovenox) 80 mg Q12HR SUBQ 05/30/18 21:00 06/29/18 20:59 06/01/18 10:32 Ethambutol HCl (Myambutol) 1,200 mg DAILY ORAL 05/27/18 09:00 06/25/18 13:59 06/01/18 09:00 Gabapentin (Neurontin) 100 mg THREE TIMES A DAY ORAL 05/26/18 18:00 06/11/18 17:59 06/01/18 10:25 Hydromorphone HCl (Dilaudid) 0.5 mg Q3HR PRN IVP FOR MODERATE PAIN (4-6) 05/31/18 04:00 06/07/18 03:59 Hydromorphone HCl (Dilaudid) 1 mg Q3H PRN IVP Moderate Pain (Pain Scale 4-6) 05/31/18 04:00 06/07/18 03:59 Hydromorphone HCl (Dilaudid) 2 mg Q3H PRN IVP Severe Pain (Pain Scale 7-10) 05/30/18 21:30 06/06/18 21:29 06/01/18 10:50 Isoniazid (Inh) 300 mg DAILY ORAL 05/27/18 09:00 06/25/18 13:59 06/01/18 10:26 Levofloxacin 100 ml @ 100 mls/hr Q24H IVPB 06/01/18 09:00 06/08/18 08:59 06/01/18 09:00 Lorazepam (Ativan 2mg/ml 1ml) 1 mg Q4H PRN IV For Anxiety 05/31/18 17:15 06/07/18 17:14 05/31/18 17:34 Magnesium Hydroxide (Mom) 30 ml BIDPRN PRN ORAL Constipation 05/26/18 18:30 06/22/18 18:15 Metoprolol Tartrate (Lopressor) 50 mg Q12HR ORAL 05/26/18 21:00 06/11/18 20:59 06/01/18 10:27 Metronidazole 100 ml @ 100 mls/hr Q8HR IVPB 05/31/18 20:00 06/07/18 19:59 06/01/18 05:47 Ondansetron HCl (Zofran) 4 mg Q6H PRN IVP Nausea & Vomiting 05/26/18 18:30 06/22/18 18:15 Polyethylene Glycol (Miralax) 17 gm DAILY ORAL 05/27/18 09:00 06/16/18 10:59 06/01/18 10:27 Pyrazinamide (Pza) 1,500 mg DAILY ORAL 05/27/18 09:00 06/25/18 13:59 06/01/18 10:25 Pyridoxine HCl (Vitamin B6) 50 mg DAILY ORAL 05/27/18 09:00 06/25/18 13:59 06/01/18 09:00 Quetiapine Fumarate (SEROquel) 100 mg BEDTIME ORAL 05/26/18 21:00 06/11/18 20:59 05/31/18 21:29 Sennosides (Senokot) 8.6 mg BIDPRN PRN ORAL Constipation 05/26/18 18:30 06/22/18 18:15 Sodium Hypochlorite (Dakin's Quarter Strength) 1 applic DAILY TOPIC 05/27/18 09:00 06/25/18 16:00 06/01/18 09:00 Alma Elkins M.D. Jun 01, 2018 12:03
--- NOTE | 2018-06-01 13:02 | Pulmonology Progress Note ---
Assessment/Plan Problems: (1) Sepsis (2) Atrial fibrillation (3) Decubitus skin ulcer (4) Bipolar disorder (5) CAD (coronary artery disease) (6) HTN (hypertension) (7) CVA (cerebral vascular accident) Assessment/Plan no new complains iv abx wound care f/u cultures monitor BP watch heart rate dvt prophylaxis symptomatic treatment Subjective ROS Limited/Unobtainable: No Constitutional: Reports: no symptoms HEENT: Repors: no symptoms Respiratory: Reports: no symptoms Allergies: Coded Allergies: MILK (Verified Allergy, Unknown, 02/02/18) Objective Last 24 Hour Vital Signs Date Time Temp Pulse Resp B/P (MAP) Pulse Ox O2 Delivery O2 Flow Rate FiO2 06/01/18 10:27 82 143/98 06/01/18 10:24 82 06/01/18 04:00 97.9 78 19 125/75 (92) 98 06/01/18 00:00 97.3 69 20 113/69 (84) 99 05/31/18 21:29 78 135/89 05/31/18 21:00 Nasal Cannula 2.0 05/31/18 20:18 99 Nasal Cannula 2.0 28 05/31/18 20:18 Nasal Cannula 2.0 28 05/31/18 20:18 88 18 Nasal Cannula 2.0 28 05/31/18 20:00 98.2 78 22 135/89 (104) 98 05/31/18 17:15 80 14 98 Nasal Cannula 4.0 36 05/31/18 17:06 70 18 97 Nasal Cannula 4.0 36 05/31/18 16:00 98.8 72 20 114/72 (86) 99 Intake and Output 05/31/18 06/01/18 19:00 07:00 Intake Total 420 ml 100 ml Balance 420 ml 100 ml Intake Oral 420 ml IV Total 100 ml # Voids 5 3 # Bowel Movements 1 Objective General Appearance: WD/WN HEENT: normocephalic Respiratory/Chest: chest wall non-tender, lungs clear, normal breath sounds Cardiovascular: normal peripheral pulses, normal rate Abdomen: normal bowel sounds, soft, non tender Genitourinary: normal external genitalia Extremities: s/p amputation Skin: no rash Laboratory Tests 06/01/18 06:00: White Blood Count 11.0H, Red Blood Count 3.01L, Hemoglobin 8.6L, Hematocrit 27.1L, Mean Corpuscular Volume 90, Mean Corpuscular Hemoglobin 28.5, Mean Corpuscular Hemoglobin Concent 31.7L, Red Cell Distribution Width 13.2, Platelet Count 256, Mean Platelet Volume 5.4L, Neutrophils (%) (Auto) 78.5H, Lymphocytes (%) (Auto) 11.9L, Monocytes (%) (Auto) 8.3, Eosinophils (%) (Auto) 0.4, Basophils (%) (Auto) 0.9, Sodium Level 141, Potassium Level 3.7, Chloride Level 109H, Carbon Dioxide Level 30, Anion Gap 2L, Blood Urea Nitrogen 9, Creatinine 0.7, Estimat Glomerular Filtration Rate > 60, Glucose Level 124H, Calcium Level 8.0L Current Medications Medications (Trade) Dose Ordered Sig/Erlin Route PRN Reason Start Time Stop Time Status Last Admin Dose Admin Acetaminophen (Tylenol) 650 mg Q4H PRN ORAL TEMP>100.5 05/31/18 08:45 06/11/18 16:44 Al Hydroxide/Mg Hydroxide (Mylanta) 15 ml Q6H PRN ORAL DYSPEPSIA 05/26/18 18:30 06/22/18 18:15 Albuterol/ Ipratropium (Albuterol/ Ipratropium) 3 ml Q4H PRN HHN Shortness of Breath 05/30/18 23:45 06/04/18 23:44 05/31/18 17:05 Amiodarone HCl (Cordarone) 200 mg DAILY ORAL 05/27/18 09:00 06/17/18 08:59 06/01/18 10:25 Chlorhexidine Gluconate (Yari-Hex 2%) 1 applic DAILY@1999 TOPIC 05/26/18 20:00 06/23/18 19:59 05/31/18 21:28 Digoxin (Lanoxin) 0.125 mg DAILY ORAL 05/27/18 09:00 06/12/18 08:59 06/01/18 10:24 Diphenhydramine HCl (Benadryl) 25 mg Q8H PRN ORAL Itching/Pruritis 05/26/18 16:46 06/22/18 16:45 Docusate Sodium (Colace) 100 mg TWICE A DAY ORAL 05/26/18 18:00 06/22/18 17:59 06/01/18 09:00 Enoxaparin Sodium (Lovenox) 80 mg Q12HR SUBQ 05/30/18 21:00 06/29/18 20:59 06/01/18 10:32 Ethambutol HCl (Myambutol) 1,200 mg DAILY ORAL 05/27/18 09:00 06/25/18 13:59 06/01/18 09:00 Gabapentin (Neurontin) 100 mg THREE TIMES A DAY ORAL 05/26/18 18:00 06/11/18 17:59 06/01/18 10:25 Hydromorphone HCl (Dilaudid) 0.5 mg Q3HR PRN IVP FOR MODERATE PAIN (4-6) 05/31/18 04:00 06/07/18 03:59 Hydromorphone HCl (Dilaudid) 1 mg Q3H PRN IVP Moderate Pain (Pain Scale 4-6) 05/31/18 04:00 06/07/18 03:59 Hydromorphone HCl (Dilaudid) 2 mg Q3H PRN IVP Severe Pain (Pain Scale 7-10) 05/30/18 21:30 06/06/18 21:29 06/01/18 10:50 Isoniazid (Inh) 300 mg DAILY ORAL 05/27/18 09:00 06/25/18 13:59 06/01/18 10:26 Levofloxacin 100 ml @ 100 mls/hr Q24H IVPB 06/01/18 09:00 06/08/18 08:59 06/01/18 09:00 Lorazepam (Ativan 2mg/ml 1ml) 1 mg Q4H PRN IV For Anxiety 05/31/18 17:15 06/07/18 17:14 05/31/18 17:34 Magnesium Hydroxide (Mom) 30 ml BIDPRN PRN ORAL Constipation 05/26/18 18:30 06/22/18 18:15 Metoprolol Tartrate (Lopressor) 50 mg Q12HR ORAL 05/26/18 21:00 06/11/18 20:59 06/01/18 10:27 Metronidazole 100 ml @ 100 mls/hr Q8HR IVPB 05/31/18 20:00 06/07/18 19:59 06/01/18 05:47 Ondansetron HCl (Zofran) 4 mg Q6H PRN IVP Nausea & Vomiting 05/26/18 18:30 06/22/18 18:15 Polyethylene Glycol (Miralax) 17 gm DAILY ORAL 05/27/18 09:00 06/16/18 10:59 06/01/18 10:27 Pyrazinamide (Pza) 1,500 mg DAILY ORAL 05/27/18 09:00 06/25/18 13:59 06/01/18 10:25 Pyridoxine HCl (Vitamin B6) 50 mg DAILY ORAL 05/27/18 09:00 06/25/18 13:59 06/01/18 09:00 Quetiapine Fumarate (SEROquel) 100 mg BEDTIME ORAL 05/26/18 21:00 06/11/18 20:59 05/31/18 21:29 Sennosides (Senokot) 8.6 mg BIDPRN PRN ORAL Constipation 05/26/18 18:30 06/22/18 18:15 Sodium Hypochlorite (Dakin's Quarter Strength) 1 applic DAILY TOPIC 05/27/18 09:00 06/25/18 16:00 06/01/18 09:00 Minerva Montesinos MD Jun 01, 2018 13:02
[2018-06-01] MEDS: Albuterol/Ipratropium 3ml neb HHN PRN (13:10)
[2018-06-01] MEDS: LORazepam Inj 2mg/ml 1ml IV PRN (15:32)
[2018-06-01 16:00] VITALS: BP 142/84
--- NOTE | 2018-06-01 16:11 | Cardiac Electrophysiology PN ---
Assessment/Plan Assessment/Plan 1. Paroxysmal Atrial fibrillation and flutter with RVR Continue digoxin 0.125 daily, metoprolol 50 bid and Amiodarone 200 daily and Lovenox 70 b.i.d. 2. Borderline hypotension. Resolved 3. Fever, cough and sepsis, on antibiotic and in respiratory isolation. 4. History of dementia and severe psychosis, on Seroquel. 5. Severe bilateral leg ulcers and sacral decubitus. S/P Bilateral AKA by Dr. Osuna 6. Anxiety got Ativan DW RN Subjective Subjective Still in resp isolation awaiting AFB. No new events Objective Last 24 Hour Vital Signs Date Time Temp Pulse Resp B/P (MAP) Pulse Ox O2 Delivery O2 Flow Rate FiO2 06/01/18 13:15 81 20 99 Nasal Cannula 2.0 28 06/01/18 13:13 80 22 Nasal Cannula 2.0 28 06/01/18 13:12 80 22 98 Nasal Cannula 2.0 28 06/01/18 13:12 Nasal Cannula 2.0 28 06/01/18 13:12 98 Nasal Cannula 2.0 28 06/01/18 10:27 82 143/98 06/01/18 10:24 82 06/01/18 04:00 97.9 78 19 125/75 (92) 98 06/01/18 00:00 97.3 69 20 113/69 (84) 99 05/31/18 21:29 78 135/89 05/31/18 21:00 Nasal Cannula 2.0 05/31/18 20:18 99 Nasal Cannula 2.0 28 05/31/18 20:18 Nasal Cannula 2.0 28 05/31/18 20:18 88 18 Nasal Cannula 2.0 28 05/31/18 20:00 98.2 78 22 135/89 (104) 98 05/31/18 17:15 80 14 98 Nasal Cannula 4.0 36 05/31/18 17:06 70 18 97 Nasal Cannula 4.0 36 Intake and Output 05/31/18 06/01/18 19:00 07:00 Intake Total 420 ml 100 ml Balance 420 ml 100 ml Intake Oral 420 ml IV Total 100 ml # Voids 5 3 # Bowel Movements 1 Laboratory Tests Test 06/01/18 06:00 White Blood Count 11.0 K/UL (4.8-10.8) H Red Blood Count 3.01 M/UL (4.70-6.10) L Hemoglobin 8.6 G/DL (14.2-18.0) L Hematocrit 27.1 % (42.0-52.0) L Mean Corpuscular Volume 90 FL (80-99) Mean Corpuscular Hemoglobin 28.5 PG (27.0-31.0) Mean Corpuscular Hemoglobin Concent 31.7 G/DL (32.0-36.0) L Red Cell Distribution Width 13.2 % (11.6-14.8) Platelet Count 256 K/UL (150-450) Mean Platelet Volume 5.4 FL (6.5-10.1) L Neutrophils (%) (Auto) 78.5 % (45.0-75.0) H Lymphocytes (%) (Auto) 11.9 % (20.0-45.0) L Monocytes (%) (Auto) 8.3 % (1.0-10.0) Eosinophils (%) (Auto) 0.4 % (0.0-3.0) Basophils (%) (Auto) 0.9 % (0.0-2.0) Sodium Level 141 MMOL/L (136-145) Potassium Level 3.7 MMOL/L (3.5-5.1) Chloride Level 109 MMOL/L (98-107) H Carbon Dioxide Level 30 MMOL/L (21-32) Anion Gap 2 mmol/L (5-15) L Blood Urea Nitrogen 9 mg/dL (7-18) Creatinine 0.7 MG/DL (0.55-1.30) Estimat Glomerular Filtration Rate > 60 mL/min (>60) Glucose Level 124 MG/DL (74-106) H Calcium Level 8.0 MG/DL (8.5-10.1) L Objective HEAD AND NECK: Mild JVD. LUNGS: Coarse rhonchi. CARDIOVASCULAR: Irregular S1 and S2 with no murmur. ABDOMEN: Soft. EXTREMITIES: S/P Bilateral Amandeep Mart MD Jun 01, 2018 16:11
[2018-06-01 20:00] VITALS: BP 157/91
[2018-06-01] MEDS: Dyna-Hex 2% Top Sol 2oz TOPIC SCH (21:31)
--- NOTE | 2018-06-01 22:58 | Internal Med Progress Note ---
Subjective Physician Name Pedro Caban Attending Physician Pedro Caban MD Current Medications Medications (Trade) Dose Ordered Sig/Erlin Route PRN Reason Start Time Stop Time Status Last Admin Dose Admin Acetaminophen (Tylenol) 650 mg Q4H PRN ORAL TEMP>100.5 05/31/18 08:45 06/11/18 16:44 Al Hydroxide/Mg Hydroxide (Mylanta) 15 ml Q6H PRN ORAL DYSPEPSIA 05/26/18 18:30 06/22/18 18:15 Albuterol/ Ipratropium (Albuterol/ Ipratropium) 3 ml Q4H PRN HHN Shortness of Breath 05/30/18 23:45 06/04/18 23:44 06/01/18 13:10 Amiodarone HCl (Cordarone) 200 mg DAILY ORAL 05/27/18 09:00 06/17/18 08:59 06/01/18 10:25 Chlorhexidine Gluconate (Yari-Hex 2%) 1 applic DAILY@2000 TOPIC 05/26/18 20:00 06/23/18 19:59 06/01/18 21:31 Digoxin (Lanoxin) 0.125 mg DAILY ORAL 05/27/18 09:00 06/12/18 08:59 06/01/18 10:24 Diphenhydramine HCl (Benadryl) 25 mg Q8H PRN ORAL Itching/Pruritis 05/26/18 16:46 06/22/18 16:45 Docusate Sodium (Colace) 100 mg TWICE A DAY ORAL 05/26/18 18:00 06/22/18 17:59 06/01/18 19:06 Enoxaparin Sodium (Lovenox) 80 mg Q12HR SUBQ 05/30/18 21:00 06/29/18 20:59 06/01/18 21:31 Ethambutol HCl (Myambutol) 1,200 mg DAILY ORAL 05/27/18 09:00 06/25/18 13:59 06/01/18 09:00 Gabapentin (Neurontin) 100 mg THREE TIMES A DAY ORAL 05/26/18 18:00 06/11/18 17:59 06/01/18 19:06 Hydromorphone HCl (Dilaudid) 0.5 mg Q3HR PRN IVP FOR MODERATE PAIN (4-6) 05/31/18 04:00 06/07/18 03:59 Hydromorphone HCl (Dilaudid) 1 mg Q3H PRN IVP Moderate Pain (Pain Scale 4-6) 05/31/18 04:00 06/07/18 03:59 Hydromorphone HCl (Dilaudid) 2 mg Q3H PRN IVP Severe Pain (Pain Scale 7-10) 05/30/18 21:30 06/06/18 21:29 06/01/18 19:06 Isoniazid (Inh) 300 mg DAILY ORAL 05/27/18 09:00 06/25/18 13:59 06/01/18 10:26 Levofloxacin 100 ml @ 100 mls/hr Q24H IVPB 06/01/18 09:00 06/08/18 08:59 06/01/18 09:00 Lorazepam (Ativan 2mg/ml 1ml) 1 mg Q4H PRN IV For Anxiety 05/31/18 17:15 06/07/18 17:14 06/01/18 15:32 Magnesium Hydroxide (Mom) 30 ml BIDPRN PRN ORAL Constipation 05/26/18 18:30 06/22/18 18:15 Metoprolol Tartrate (Lopressor) 50 mg Q12HR ORAL 05/26/18 21:00 06/11/18 20:59 06/01/18 21:31 Metronidazole 100 ml @ 100 mls/hr Q8HR IVPB 05/31/18 20:00 06/07/18 19:59 06/01/18 21:32 Ondansetron HCl (Zofran) 4 mg Q6H PRN IVP Nausea & Vomiting 05/26/18 18:30 06/22/18 18:15 Polyethylene Glycol (Miralax) 17 gm DAILY ORAL 05/27/18 09:00 06/16/18 10:59 06/01/18 10:27 Pyrazinamide (Pza) 1,500 mg DAILY ORAL 05/27/18 09:00 06/25/18 13:59 06/01/18 10:25 Pyridoxine HCl (Vitamin B6) 50 mg DAILY ORAL 05/27/18 09:00 06/25/18 13:59 06/01/18 09:00 Quetiapine Fumarate (SEROquel) 100 mg BEDTIME ORAL 05/26/18 21:00 06/11/18 20:59 06/01/18 21:32 Sennosides (Senokot) 8.6 mg BIDPRN PRN ORAL Constipation 05/26/18 18:30 06/22/18 18:15 Sodium Hypochlorite (Dakin's Quarter Strength) 1 applic DAILY TOPIC 05/27/18 09:00 06/25/18 16:00 06/01/18 09:00 Allergies: Coded Allergies: MILK (Verified Allergy, Unknown, 02/02/18) Subjective awake, alert, responsive, C/O Leg / stumps pain Objective Last Vital Signs Date Time Temp Pulse Resp B/P (MAP) Pulse Ox O2 Delivery O2 Flow Rate FiO2 06/01/18 21:31 63 157/91 06/01/18 21:00 Nasal Cannula 2.0 06/01/18 20:25 97 28 06/01/18 20:25 20 06/01/18 20:00 98.1 Laboratory Tests Test 06/01/18 06:00 White Blood Count 11.0 K/UL (4.8-10.8) H Red Blood Count 3.01 M/UL (4.70-6.10) L Hemoglobin 8.6 G/DL (14.2-18.0) L Hematocrit 27.1 % (42.0-52.0) L Mean Corpuscular Volume 90 FL (80-99) Mean Corpuscular Hemoglobin 28.5 PG (27.0-31.0) Mean Corpuscular Hemoglobin Concent 31.7 G/DL (32.0-36.0) L Red Cell Distribution Width 13.2 % (11.6-14.8) Platelet Count 256 K/UL (150-450) Mean Platelet Volume 5.4 FL (6.5-10.1) L Neutrophils (%) (Auto) 78.5 % (45.0-75.0) H Lymphocytes (%) (Auto) 11.9 % (20.0-45.0) L Monocytes (%) (Auto) 8.3 % (1.0-10.0) Eosinophils (%) (Auto) 0.4 % (0.0-3.0) Basophils (%) (Auto) 0.9 % (0.0-2.0) Sodium Level 141 MMOL/L (136-145) Potassium Level 3.7 MMOL/L (3.5-5.1) Chloride Level 109 MMOL/L (98-107) H Carbon Dioxide Level 30 MMOL/L (21-32) Anion Gap 2 mmol/L (5-15) L Blood Urea Nitrogen 9 mg/dL (7-18) Creatinine 0.7 MG/DL (0.55-1.30) Estimat Glomerular Filtration Rate > 60 mL/min (>60) Glucose Level 124 MG/DL (74-106) H Calcium Level 8.0 MG/DL (8.5-10.1) L Intake and Output 05/31/18 06/01/18 19:00 07:00 Intake Total 420 ml 100 ml Balance 420 ml 100 ml Intake Oral 420 ml IV Total 100 ml # Voids 5 3 # Bowel Movements 1 Objective General: No acute distress, awake and alert HEENT: NCAT, sclera anicteric, PERRL, EOMI. Neck: Supple, no significant jugular venous distention, Lungs: Fair inspiratory effort, Decrease air on bases, no Wheeze or Rales. Heart: Irregular rate and rhythm, normal S1/S2, no murmurs Abdomen: soft, nontender, nondistended. Normoactive bowel sounds. / Rectal: Refused and deferred. Extremities: No Cyanosis , clubbing or edema. Bilateral stumps intact with chaitanya, LUE piccline. Neuro: A&O x 3, Able to move all extremities Skin: warm, no rashes Assessment/Plan Assessment/Plan LeSmall lung cavitary lesion/ PNA- suspect likely to aspiration; lower suspicion for TB and/or fungal etiologies -CT c/a/p: 10 mm opacity in the peripheral anterolateral right upper lobe with small central cavitation. Patchy groundglass opacity in the posterior right upper lobe. Suspect that these represent inflammatory/infectious lesions, but neoplastic etiology of either is certainly possible. Large left and moderate right pleural effusions. Resultant compressive atelectasis of portions of the lower lobes. Equivocal distal esophageal wall thickening, could indicate esophagitis if real -sp cx usual resp noah -AFB sp cx; smear neg x4; MTB PCR neg -TB spot + -Neg Crag serum, legionella ag urine Hep C + ab- r/o actice chronic hepaitis C -CT abd- liver unremarkable -Hep Bc ab+ Sepsis 2/2 to bacteremia (at [facility]) Likely source is skin ulcer Blood Cx 05/12/18 at [facility] -Bcx 05/12 and (here) NTD 2d echo: no vegetations 05/15 CXR: Right midlung nodule. Absence of this finding on previous study makes this more likely to be a focus of inflammation, but rapidly growing neoplasm not excludable. Left basilar hazy opacity. Most likely a moderate to large pleural effusion.Component of infiltrate or atelectasis is also possible 05/12 CXR: Asymmetric ill-defined confluent groundglass opacity within the left mid/inferior lung, of uncertain etiology. B/l LE necrotic ulcer and toes- acute on chronci, ischemic w/ likely superinfection- likely non-salvageable per surgery -05/23 SP B/l BKA Afib w/ RVR Encephalopathy , improving -CT head w/wo: No acute intracranial abnormalities. Mild atrophy of the brain. Nonspecific white matter hypoattenuation probably due to chronic small vessel disease. Likely secondary to sepsis Cerebrovascular accident. Hypertension. Sacral decubitus ulcers. Bipolar disorder. Coronary artery disease. Plan: Abx: Levaquin and Flagyl F/U with ID recommendations wound care Lovenox injection. Pedro Caban MD Jun 01, 2018 22:58
[2018-06-02] VITALS: BP 136/82
[2018-06-02 04:52] VITALS: BP 141/88
[2018-06-02 08:00] VITALS: BP 136/76
[2018-06-02] MEDS: Dakin's 0.125% Soln (Quarter Strength) 16oz TOPIC SCH (09:00)
[2018-06-02] MEDS: Docusate 100mg cap ORAL SCH ×2 (09:00→18:34)
[2018-06-02] MEDS: Miralax 17gm pkt ORAL SCH (09:00)
[2018-06-02] MEDS: Amiodarone 200mg tab ORAL SCH (09:00)
[2018-06-02] MEDS: Metoprolol Tartrate 50mg tab ORAL SCH ×2 (09:57→22:21)
[2018-06-02] MEDS: Digoxin 0.125mg tab ORAL SCH (10:00)
[2018-06-02] MEDS: Pyridoxine 50mg tab ORAL SCH (10:00)
[2018-06-02] MEDS: Isoniazid 300mg tab ORAL SCH (10:01)
[2018-06-02] MEDS: Enoxaparin 80mg Inj SUBQ SCH ×2 (10:05→22:23)
--- NOTE | 2018-06-02 11:50 | Infectious Diseases Prog Note ---
Assessment/Plan Assessment/Plan - 68 yo male who was transferred from [place] where he initially presented for AMS from [facility]. Low grade fever, SP Leukocytosis ,recurrent- SP Small lung cavitary lesion/ PNA- suspect likely to aspiration; lower suspicion for TB and/or fungal etiologies -CT c/a/p: 10 mm opacity in the peripheral anterolateral right upper lobe with small central cavitation. Patchy groundglass opacity in the posterior right upper lobe. Suspect that these represent inflammatory/infectious lesions, but neoplastic etiology of either is certainly possible. Large left and moderate right pleural effusions. Resultant compressive atelectasis of portions of the lower lobes. Equivocal distal esophageal wall thickening, could indicate esophagitis if real -sp cx usual resp noah -AFB sp cx; smear neg x4; MTB PCR neg -TB spot + -Neg Crag serum, legionella ag urine Hep C + ab- r/o actice chronic hepaitis C -CT abd- liver unremarkable -Hep Bc ab+ Sepsis / to bacteremia (at OSH) Likely source is skin ulcer Blood Cx 05/12/18 at [place] [facility] -Bcx 05/12 and (here) NTD 2d echo: no vegetations 05/15 CXR: Right midlung nodule. Absence of this finding on previous study makes this more likely to be a focus of inflammation, but rapidly growing neoplasm not excludable. Left basilar hazy opacity. Most likely a moderate to large pleural effusion.Component of infiltrate or atelectasis is also possible 05/12 CXR: Asymmetric ill-defined confluent groundglass opacity within the left mid/inferior lung, of uncertain etiology. B/l LE necrotic ulcer and toes- acute on chronci, ischemic w/ likely superinfection- likely non-salvageable per surgery -05/23 SP B/l BKA Afib w/ RVR Encephalopathy , improving -CT head w/wo: No acute intracranial abnormalities. Mild atrophy of the brain. Nonspecific white matter hypoattenuation probably due to chronic small vessel disease. Likely secondary to sepsis Cerebrovascular accident. Hypertension. Sacral decubitus ulcers. Bipolar disorder. Coronary artery disease. Plan - Continue Levaquin #8 (abx d#22) and flagyl #15 for cavitary/aspiration PNA -low threshold to switch Cefepime and Flagyl to Meropenem if decompensates -05/26 SP IV Vancomycin #15, Cefepime #15 -Per Dept of Public health and to aid on discharge planning back to SNF, will cont empiric TB regimen with DONN (started on 05/26- ); Levaquin instead of Rifampin or Rifabutin given multiple drug interactions of Rifampin (w/ Amiodarone, quetiapine, metoprolol) -Dept of wants to treat empirically until final AFB culture results -monitor LFTs -EGK monitor QTc -Airborne isolation -f/u AFB sp cx,MTB PCR x1 -f/u cocci ab, fungal sp cx, - f/u Blood Cx - Wound care - Monitor CBC and Temps -f/u sp cx, u/a w/ reflex -Cdiff if diarrhea -Sx f/u -f/u Hep C VL, Hep A IgG, Hebc IgG and Hep Bs ab -Discharge approval per Dept of Health Thank you for this consult. We will continue to follow the patient during this hospitalization. Discussed withRN Subjective Allergies: Coded Allergies: MILK (Verified Allergy, Unknown, 02/02/18) Subjective afebrile leukocytosis more alert at 2l NC Objective Vital Signs Last 24 Hour Vital Signs Date Time Temp Pulse Resp B/P (MAP) Pulse Ox O2 Delivery O2 Flow Rate FiO2 06/02/18 10:00 68 06/02/18 09:57 68 151/65 06/02/18 06:59 Nasal Cannula 2.0 28 06/02/18 06:59 63 19 Nasal Cannula 2.0 28 06/02/18 06:59 96 Nasal Cannula 2.0 28 06/02/18 04:52 98.4 61 18 141/88 (105) 06/02/18 00:00 98.9 59 20 136/82 (100) 06/01/18 21:31 63 157/91 06/01/18 21:00 Nasal Cannula 2.0 06/01/18 20:25 97 Nasal Cannula 2.0 28 06/01/18 20:25 83 20 Nasal Cannula 2.0 28 06/01/18 20:25 Nasal Cannula 2.0 28 06/01/18 20:00 98.1 63 20 157/91 (113) 06/01/18 16:00 97.9 66 18 142/84 (103) 100 06/01/18 13:15 81 20 99 Nasal Cannula 2.0 28 06/01/18 13:13 80 22 Nasal Cannula 2.0 28 06/01/18 13:12 80 22 98 Nasal Cannula 2.0 28 06/01/18 13:12 Nasal Cannula 2.0 28 06/01/18 13:12 98 Nasal Cannula 2.0 28 06/01/18 12:00 98.0 66 19 154/80 (104) 99 Height (Feet): 6 Height (Inches): 5.00 Weight (Pounds): 175 Objective Gen: NAD. Mumbling HEENT: NCAT, MMM, EOMI, No Oral lesion, no scleral icterus NECK: full range of motion, supple, no meningismus, No LAD, No JVD LUNGS: CTAB, No W/C, No Accessory muscle use CARDS: RRR, S1, S2, No M/R/G ABD: Soft, NT, ND, No R/G, + BS, No HSM, No Masses : Deferred Ext: C/C/E, Pulses 2+ B/L (DP, Rad) NEURO: A/O x 0, Strength and Sensation Grossly intact PSYCH: mood/affect normal SKIN: Left foot wound. No purulent drainage, Feet now bandaged Laboratory Tests Test 06/02/18 05:19 Blastomyces Ab Immunodiffusion Pending Histoplasma Mycelial Antibody Pending Histoplasma Antibody w Mycelial Ag Pending Histoplasma Antibody with Yeast Ag Pending Current Medications Medications (Trade) Dose Ordered Sig/Erlin Route PRN Reason Start Time Stop Time Status Last Admin Dose Admin Acetaminophen (Tylenol) 650 mg Q4H PRN ORAL TEMP>100.5 05/31/18 08:45 06/11/18 16:44 Al Hydroxide/Mg Hydroxide (Mylanta) 15 ml Q6H PRN ORAL DYSPEPSIA 05/26/18 18:30 06/22/18 18:15 Albuterol/ Ipratropium (Albuterol/ Ipratropium) 3 ml Q4H PRN HHN Shortness of Breath 05/30/18 23:45 06/04/18 23:44 06/01/18 13:10 Amiodarone HCl (Cordarone) 200 mg DAILY ORAL 05/27/18 09:00 06/17/18 08:59 06/02/18 09:00 Chlorhexidine Gluconate (Yari-Hex 2%) 1 applic DAILY@2000 TOPIC 05/26/18 20:00 06/23/18 19:59 06/01/18 21:31 Digoxin (Lanoxin) 0.125 mg DAILY ORAL 05/27/18 09:00 06/12/18 08:59 06/02/18 10:00 Diphenhydramine HCl (Benadryl) 25 mg Q8H PRN ORAL Itching/Pruritis 05/26/18 16:46 06/22/18 16:45 Docusate Sodium (Colace) 100 mg TWICE A DAY ORAL 05/26/18 18:00 06/22/18 17:59 06/01/18 19:06 Enoxaparin Sodium (Lovenox) 80 mg Q12HR SUBQ 05/30/18 21:00 06/29/18 20:59 06/02/18 10:05 Ethambutol HCl (Myambutol) 1,200 mg DAILY ORAL 05/27/18 09:00 06/25/18 13:59 06/02/18 09:00 Gabapentin (Neurontin) 100 mg THREE TIMES A DAY ORAL 05/26/18 18:00 06/11/18 17:59 06/02/18 09:58 Hydromorphone HCl (Dilaudid) 0.5 mg Q3HR PRN IVP FOR MODERATE PAIN (4-6) 05/31/18 04:00 06/07/18 03:59 Hydromorphone HCl (Dilaudid) 1 mg Q3H PRN IVP Moderate Pain (Pain Scale 4-6) 05/31/18 04:00 06/07/18 03:59 Hydromorphone HCl (Dilaudid) 2 mg Q3H PRN IVP Severe Pain (Pain Scale 7-10) 05/30/18 21:30 06/06/18 21:29 06/02/18 10:03 Isoniazid (Inh) 300 mg DAILY ORAL 05/27/18 09:00 06/25/18 13:59 06/02/18 10:01 Levofloxacin 100 ml @ 100 mls/hr Q24H IVPB 06/01/18 09:00 06/08/18 08:59 06/02/18 09:56 Lorazepam (Ativan 2mg/ml 1ml) 1 mg Q4H PRN IV For Anxiety 05/31/18 17:15 06/07/18 17:14 06/01/18 15:32 Magnesium Hydroxide (Mom) 30 ml BIDPRN PRN ORAL Constipation 05/26/18 18:30 06/22/18 18:15 Metoprolol Tartrate (Lopressor) 50 mg Q12HR ORAL 05/26/18 21:00 06/11/18 20:59 06/02/18 09:57 Metronidazole 100 ml @ 100 mls/hr Q8HR IVPB 05/31/18 20:00 06/07/18 19:59 06/02/18 05:13 Ondansetron HCl (Zofran) 4 mg Q6H PRN IVP Nausea & Vomiting 05/26/18 18:30 06/22/18 18:15 Polyethylene Glycol (Miralax) 17 gm DAILY ORAL 05/27/18 09:00 06/16/18 10:59 06/01/18 10:27 Pyrazinamide (Pza) 1,500 mg DAILY ORAL 05/27/18 09:00 06/25/18 13:59 06/02/18 09:59 Pyridoxine HCl (Vitamin B6) 50 mg DAILY ORAL 05/27/18 09:00 06/25/18 13:59 06/02/18 10:00 Quetiapine Fumarate (SEROquel) 100 mg BEDTIME ORAL 05/26/18 21:00 06/11/18 20:59 06/01/18 21:32 Sennosides (Senokot) 8.6 mg BIDPRN PRN ORAL Constipation 05/26/18 18:30 06/22/18 18:15 Sodium Hypochlorite (Dakin's Quarter Strength) 1 applic DAILY TOPIC 05/27/18 09:00 06/25/18 16:00 06/02/18 09:00 Alma Elkins M.D. Jun 02, 2018 11:50
[2018-06-02 12:00] VITALS: BP 144/80
--- NOTE | 2018-06-02 13:05 | Cardiac Electrophysiology PN ---
Assessment/Plan Assessment/Plan 1. Paroxysmal Atrial fibrillation and flutter with RVR Continue digoxin 0.125 daily, metoprolol 50 bid and Amiodarone 200 daily On Lovenox 70 b.i.d. 2. Anxiety got Ativan 3. Fever, cough and sepsis, on antibiotic and in respiratory isolation. 4. History of dementia and severe psychosis, on Seroquel. 5. Severe bilateral leg ulcers and sacral decubitus. S/P Bilateral AKA by Dr. Enrrique GERMAN RN Subjective Subjective Still in resp isolation. No new events. No CP Objective Last 24 Hour Vital Signs Date Time Temp Pulse Resp B/P (MAP) Pulse Ox O2 Delivery O2 Flow Rate FiO2 06/02/18 10:00 68 06/02/18 09:57 68 151/65 06/02/18 06:59 Nasal Cannula 2.0 28 06/02/18 06:59 63 19 Nasal Cannula 2.0 28 06/02/18 06:59 96 Nasal Cannula 2.0 28 06/02/18 04:52 98.4 61 18 141/88 (105) 06/02/18 00:00 98.9 59 20 136/82 (100) 06/01/18 21:31 63 157/91 06/01/18 21:00 Nasal Cannula 2.0 06/01/18 20:25 97 Nasal Cannula 2.0 28 06/01/18 20:25 83 20 Nasal Cannula 2.0 28 06/01/18 20:25 Nasal Cannula 2.0 28 06/01/18 20:00 98.1 63 20 157/91 (113) 06/01/18 16:00 97.9 66 18 142/84 (103) 100 06/01/18 13:15 81 20 99 Nasal Cannula 2.0 28 06/01/18 13:13 80 22 Nasal Cannula 2.0 28 06/01/18 13:12 80 22 98 Nasal Cannula 2.0 28 06/01/18 13:12 Nasal Cannula 2.0 28 06/01/18 13:12 98 Nasal Cannula 2.0 28 Intake and Output 06/01/18 06/02/18 19:00 07:00 Intake Total 560 ml Balance 560 ml Intake Oral 360 ml IV Total 200 ml # Voids 4 1 # Bowel Movements 2 1 Laboratory Tests Test 06/02/18 05:19 Blastomyces Ab Immunodiffusion Pending Histoplasma Mycelial Antibody Pending Histoplasma Antibody w Mycelial Ag Pending Histoplasma Antibody with Yeast Ag Pending Objective HEAD AND NECK: Mild JVD. LUNGS: Coarse rhonchi. CARDIOVASCULAR: Irregular S1 and S2 with no murmur. ABDOMEN: Soft. EXTREMITIES: S/P Bilateral Amandeep Mart MD Jun 02, 2018 13:05
--- NOTE | 2018-06-02 14:50 | Internal Med Progress Note ---
Subjective Physician Name Pedro Caban Attending Physician Pedro Caban MD Current Medications Medications (Trade) Dose Ordered Sig/Erlin Route PRN Reason Start Time Stop Time Status Last Admin Dose Admin Acetaminophen (Tylenol) 650 mg Q4H PRN ORAL TEMP>100.5 05/31/18 08:45 06/11/18 16:44 Al Hydroxide/Mg Hydroxide (Mylanta) 15 ml Q6H PRN ORAL DYSPEPSIA 05/26/18 18:30 06/22/18 18:15 Albuterol/ Ipratropium (Albuterol/ Ipratropium) 3 ml Q4H PRN HHN Shortness of Breath 05/30/18 23:45 06/04/18 23:44 06/01/18 13:10 Amiodarone HCl (Cordarone) 200 mg DAILY ORAL 05/27/18 09:00 06/17/18 08:59 06/02/18 09:00 Chlorhexidine Gluconate (Yari-Hex 2%) 1 applic DAILY@2000 TOPIC 05/26/18 20:00 06/23/18 19:59 06/01/18 21:31 Digoxin (Lanoxin) 0.125 mg DAILY ORAL 05/27/18 09:00 06/12/18 08:59 06/02/18 10:00 Diphenhydramine HCl (Benadryl) 25 mg Q8H PRN ORAL Itching/Pruritis 05/26/18 16:46 06/22/18 16:45 Docusate Sodium (Colace) 100 mg TWICE A DAY ORAL 05/26/18 18:00 06/22/18 17:59 06/01/18 19:06 Enoxaparin Sodium (Lovenox) 80 mg Q12HR SUBQ 05/30/18 21:00 06/29/18 20:59 06/02/18 10:05 Ethambutol HCl (Myambutol) 1,200 mg DAILY ORAL 05/27/18 09:00 06/25/18 13:59 06/02/18 09:00 Gabapentin (Neurontin) 100 mg THREE TIMES A DAY ORAL 05/26/18 18:00 06/11/18 17:59 06/02/18 14:32 Hydromorphone HCl (Dilaudid) 0.5 mg Q3HR PRN IVP FOR MODERATE PAIN (4-6) 05/31/18 04:00 06/07/18 03:59 Hydromorphone HCl (Dilaudid) 1 mg Q3H PRN IVP Moderate Pain (Pain Scale 4-6) 05/31/18 04:00 06/07/18 03:59 Hydromorphone HCl (Dilaudid) 2 mg Q3H PRN IVP Severe Pain (Pain Scale 7-10) 05/30/18 21:30 06/06/18 21:29 06/02/18 14:33 Isoniazid (Inh) 300 mg DAILY ORAL 05/27/18 09:00 06/25/18 13:59 06/02/18 10:01 Levofloxacin 100 ml @ 100 mls/hr Q24H IVPB 06/01/18 09:00 06/08/18 08:59 06/02/18 09:56 Lorazepam (Ativan 2mg/ml 1ml) 1 mg Q4H PRN IV For Anxiety 05/31/18 17:15 06/07/18 17:14 06/01/18 15:32 Magnesium Hydroxide (Mom) 30 ml BIDPRN PRN ORAL Constipation 05/26/18 18:30 06/22/18 18:15 Metoprolol Tartrate (Lopressor) 50 mg Q12HR ORAL 05/26/18 21:00 06/11/18 20:59 06/02/18 09:57 Metronidazole 100 ml @ 100 mls/hr Q8HR IVPB 05/31/18 20:00 06/07/18 19:59 06/02/18 14:32 Ondansetron HCl (Zofran) 4 mg Q6H PRN IVP Nausea & Vomiting 05/26/18 18:30 06/22/18 18:15 Polyethylene Glycol (Miralax) 17 gm DAILY ORAL 05/27/18 09:00 06/16/18 10:59 06/01/18 10:27 Pyrazinamide (Pza) 1,500 mg DAILY ORAL 05/27/18 09:00 06/25/18 13:59 06/02/18 09:59 Pyridoxine HCl (Vitamin B6) 50 mg DAILY ORAL 05/27/18 09:00 06/25/18 13:59 06/02/18 10:00 Quetiapine Fumarate (SEROquel) 100 mg BEDTIME ORAL 05/26/18 21:00 06/11/18 20:59 06/01/18 21:32 Sennosides (Senokot) 8.6 mg BIDPRN PRN ORAL Constipation 05/26/18 18:30 06/22/18 18:15 Sodium Hypochlorite (Dakin's Quarter Strength) 1 applic DAILY TOPIC 05/27/18 09:00 06/25/18 16:00 06/02/18 09:00 Allergies: Coded Allergies: MILK (Verified Allergy, Unknown, 02/02/18) Subjective awake, alert, responsive, C/O stumps pain Objective Last Vital Signs Date Time Temp Pulse Resp B/P (MAP) Pulse Ox O2 Delivery O2 Flow Rate FiO2 06/02/18 10:00 68 06/02/18 09:57 151/65 06/02/18 06:59 Nasal Cannula 2.0 28 06/02/18 06:59 19 06/02/18 06:59 96 06/02/18 04:52 98.4 Laboratory Tests Test 06/02/18 05:19 Blastomyces Ab Immunodiffusion Pending Histoplasma Mycelial Antibody Pending Histoplasma Antibody w Mycelial Ag Pending Histoplasma Antibody with Yeast Ag Pending Intake and Output 06/01/18 06/02/18 19:00 07:00 Intake Total 560 ml Balance 560 ml Intake Oral 360 ml IV Total 200 ml # Voids 4 1 # Bowel Movements 2 1 Objective General: No acute distress, awake and alert HEENT: NCAT, sclera anicteric, PERRL, EOMI. Neck: Supple, no significant jugular venous distention, Lungs: Fair inspiratory effort, Decrease air on bases, no Wheeze or Rales. Heart: Irregular rate and rhythm, normal S1/S2, no murmurs Abdomen: soft, nontender, nondistended. Normoactive bowel sounds. / Rectal: Refused and deferred. Extremities: No Cyanosis , clubbing or edema. Bilateral stumps intact with chaitanya, LUE piccline. Neuro: A&O x 3, Able to move all extremities Skin: warm, no rashes Assessment/Plan Assessment/Plan LeSmall lung cavitary lesion/ PNA- suspect likely to aspiration; lower suspicion for TB and/or fungal etiologies -CT c/a/p: 10 mm opacity in the peripheral anterolateral right upper lobe with small central cavitation. Patchy groundglass opacity in the posterior right upper lobe. Suspect that these represent inflammatory/infectious lesions, but neoplastic etiology of either is certainly possible. Large left and moderate right pleural effusions. Resultant compressive atelectasis of portions of the lower lobes. Equivocal distal esophageal wall thickening, could indicate esophagitis if real -sp cx usual resp noah -AFB sp cx; smear neg x4; MTB PCR neg -TB spot + -Neg Crag serum, legionella ag urine Hep C + ab- r/o actice chronic hepaitis C -CT abd- liver unremarkable -Hep Bc ab+ Sepsis 07/22 to bacteremia (at OSH) Likely source is skin ulcer Blood Cx 05/12/18 at [facility] -Bcx 05/12 and (here) NTD 2d echo: no vegetations 05/15 CXR: Right midlung nodule. Absence of this finding on previous study makes this more likely to be a focus of inflammation, but rapidly growing neoplasm not excludable. Left basilar hazy opacity. Most likely a moderate to large pleural effusion.Component of infiltrate or atelectasis is also possible 05/12 CXR: Asymmetric ill-defined confluent groundglass opacity within the left mid/inferior lung, of uncertain etiology. B/l LE necrotic ulcer and toes- acute on chronci, ischemic w/ likely superinfection- likely non-salvageable per surgery -05/23 SP B/l BKA Afib w/ RVR Encephalopathy , improving -CT head w/wo: No acute intracranial abnormalities. Mild atrophy of the brain. Nonspecific white matter hypoattenuation probably due to chronic small vessel disease. Likely secondary to sepsis Cerebrovascular accident. Hypertension. Sacral decubitus ulcers. Bipolar disorder. Coronary artery disease. Plan: Abx: Levaquin and Flagyl F/U with ID recommendations wound care Lovenox injection. Pedro Caban MD Jun 02, 2018 14:50
--- NOTE | 2018-06-02 15:38 | Pulmonology Progress Note ---
Assessment/Plan Problems: (1) Sepsis (2) Atrial fibrillation (3) Decubitus skin ulcer (4) Bipolar disorder (5) CAD (coronary artery disease) (6) HTN (hypertension) (7) CVA (cerebral vascular accident) Assessment/Plan check cxr in a few days check AFB no new complains iv abx wound care f/u cultures monitor BP watch heart rate dvt prophylaxis symptomatic treatment Subjective ROS Limited/Unobtainable: No Respiratory: Reports: no symptoms Allergies: Coded Allergies: MILK (Verified Allergy, Unknown, 02/02/18) Objective Last 24 Hour Vital Signs Date Time Temp Pulse Resp B/P (MAP) Pulse Ox O2 Delivery O2 Flow Rate FiO2 06/02/18 10:00 68 06/02/18 09:57 68 151/65 06/02/18 06:59 Nasal Cannula 2.0 28 06/02/18 06:59 63 19 Nasal Cannula 2.0 28 06/02/18 06:59 96 Nasal Cannula 2.0 28 06/02/18 04:52 98.4 61 18 141/88 (105) 06/02/18 00:00 98.9 59 20 136/82 (100) 06/01/18 21:31 63 157/91 06/01/18 21:00 Nasal Cannula 2.0 06/01/18 20:25 97 Nasal Cannula 2.0 28 06/01/18 20:25 83 20 Nasal Cannula 2.0 28 06/01/18 20:25 Nasal Cannula 2.0 28 06/01/18 20:00 98.1 63 20 157/91 (113) 06/01/18 16:00 97.9 66 18 142/84 (103) 100 Intake and Output 06/01/18 06/02/18 19:00 07:00 Intake Total 560 ml Balance 560 ml Intake Oral 360 ml IV Total 200 ml # Voids 4 1 # Bowel Movements 2 1 Objective General Appearance: WD/WN HEENT: normocephalic Respiratory/Chest: chest wall non-tender, lungs clear, normal breath sounds Cardiovascular: normal peripheral pulses, normal rate Abdomen: normal bowel sounds, soft, non tender Genitourinary: normal external genitalia Extremities: s/p amputation Skin: no rash Laboratory Tests 06/02/18 05:19: Blastomyces Ab Immunodiffusion [Pending], Histoplasma Mycelial Antibody [Pending ], Histoplasma Antibody w Mycelial Ag [Pending], Histoplasma Antibody with Yeast Ag [Pending] Current Medications Medications (Trade) Dose Ordered Sig/Erlin Route PRN Reason Start Time Stop Time Status Last Admin Dose Admin Acetaminophen (Tylenol) 650 mg Q4H PRN ORAL TEMP>100.5 05/31/18 08:45 06/11/18 16:44 Al Hydroxide/Mg Hydroxide (Mylanta) 15 ml Q6H PRN ORAL DYSPEPSIA 05/26/18 18:30 06/22/18 18:15 Albuterol/ Ipratropium (Albuterol/ Ipratropium) 3 ml Q4H PRN HHN Shortness of Breath 05/30/18 23:45 06/04/18 23:44 06/01/18 13:10 Amiodarone HCl (Cordarone) 200 mg DAILY ORAL 05/27/18 09:00 06/17/18 08:59 06/02/18 09:00 Chlorhexidine Gluconate (Yari-Hex 2%) 1 applic DAILY@2000 TOPIC 05/26/18 20:00 06/23/18 19:59 06/01/18 21:31 Digoxin (Lanoxin) 0.125 mg DAILY ORAL 05/27/18 09:00 06/12/18 08:59 06/02/18 10:00 Diphenhydramine HCl (Benadryl) 25 mg Q8H PRN ORAL Itching/Pruritis 05/26/18 16:46 06/22/18 16:45 Docusate Sodium (Colace) 100 mg TWICE A DAY ORAL 05/26/18 18:00 06/22/18 17:59 06/01/18 19:06 Enoxaparin Sodium (Lovenox) 80 mg Q12HR SUBQ 05/30/18 21:00 06/29/18 20:59 06/02/18 10:05 Ethambutol HCl (Myambutol) 1,200 mg DAILY ORAL 05/27/18 09:00 06/25/18 13:59 06/02/18 09:00 Gabapentin (Neurontin) 100 mg THREE TIMES A DAY ORAL 05/26/18 18:00 06/11/18 17:59 06/02/18 14:32 Hydromorphone HCl (Dilaudid) 0.5 mg Q3HR PRN IVP FOR MODERATE PAIN (4-6) 05/31/18 04:00 06/07/18 03:59 Hydromorphone HCl (Dilaudid) 1 mg Q3H PRN IVP Moderate Pain (Pain Scale 4-6) 05/31/18 04:00 06/07/18 03:59 Hydromorphone HCl (Dilaudid) 2 mg Q3H PRN IVP Severe Pain (Pain Scale 7-10) 05/30/18 21:30 06/06/18 21:29 06/02/18 14:33 Isoniazid (Inh) 300 mg DAILY ORAL 05/27/18 09:00 06/25/18 13:59 06/02/18 10:01 Levofloxacin 100 ml @ 100 mls/hr Q24H IVPB 06/01/18 09:00 06/08/18 08:59 06/02/18 09:56 Lorazepam (Ativan 2mg/ml 1ml) 1 mg Q4H PRN IV For Anxiety 05/31/18 17:15 06/07/18 17:14 06/01/18 15:32 Magnesium Hydroxide (Mom) 30 ml BIDPRN PRN ORAL Constipation 05/26/18 18:30 06/22/18 18:15 Metoprolol Tartrate (Lopressor) 50 mg Q12HR ORAL 05/26/18 21:00 06/11/18 20:59 06/02/18 09:57 Metronidazole 100 ml @ 100 mls/hr Q8HR IVPB 05/31/18 20:00 06/07/18 19:59 06/02/18 14:32 Ondansetron HCl (Zofran) 4 mg Q6H PRN IVP Nausea & Vomiting 05/26/18 18:30 06/22/18 18:15 Polyethylene Glycol (Miralax) 17 gm DAILY ORAL 05/27/18 09:00 06/16/18 10:59 06/01/18 10:27 Pyrazinamide (Pza) 1,500 mg DAILY ORAL 05/27/18 09:00 06/25/18 13:59 06/02/18 09:59 Pyridoxine HCl (Vitamin B6) 50 mg DAILY ORAL 05/27/18 09:00 06/25/18 13:59 06/02/18 10:00 Quetiapine Fumarate (SEROquel) 100 mg BEDTIME ORAL 05/26/18 21:00 06/11/18 20:59 06/01/18 21:32 Sennosides (Senokot) 8.6 mg BIDPRN PRN ORAL Constipation 05/26/18 18:30 06/22/18 18:15 Sodium Hypochlorite (Dakin's Quarter Strength) 1 applic DAILY TOPIC 05/27/18 09:00 06/25/18 16:00 06/02/18 09:00 Minerva Montesinos MD Jun 02, 2018 15:38
[2018-06-02 16:00] VITALS: BP 156/72
[2018-06-02 20:00] VITALS: BP 140/77
[2018-06-02] MEDS: Dyna-Hex 2% Top Sol 2oz TOPIC SCH (22:22)
--- NOTE | 2018-06-02 23:32 | General Progress Note ---
Assessment/Plan Problem List: (1) Bipolar disorder ICD Codes: F31.9 - Bipolar disorder, unspecified SNOMED: 03711304 (2) encephalopathy Status: stable Assessment/Plan dc abilify start seroquel the pt lacks capacity to make decisions Subjective 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: Reports: anxiety Allergies: Coded Allergies: MILK (Verified Allergy, Unknown, 02/02/18) Subjective the pt is the same with cognitive impairment no agitation Objective Last 24 Hour Vital Signs Date Time Temp Pulse Resp B/P (MAP) Pulse Ox O2 Delivery O2 Flow Rate FiO2 06/02/18 22:21 81 140/77 06/02/18 20:00 98.8 81 20 140/77 (98) 99 06/02/18 16:00 98.1 68 156/72 (100) 06/02/18 12:00 98.0 70 144/80 (101) 06/02/18 10:00 68 06/02/18 09:57 68 151/65 06/02/18 09:00 Nasal Cannula 2.0 06/02/18 08:00 98.2 136/76 (96) 06/02/18 06:59 Nasal Cannula 2.0 28 06/02/18 06:59 63 19 Nasal Cannula 2.0 28 06/02/18 06:59 96 Nasal Cannula 2.0 28 06/02/18 04:52 98.4 61 18 141/88 (105) 06/02/18 00:00 98.9 59 20 136/82 (100) Intake and Output 06/01/18 06/02/18 19:00 07:00 Intake Total 560 ml Balance 560 ml Intake Oral 360 ml IV Total 200 ml # Voids 4 1 # Bowel Movements 2 1 Laboratory Tests 06/02/18 05:19: Blastomyces Ab Immunodiffusion [Pending], Histoplasma Mycelial Antibody [Pending ], Histoplasma Antibody w Mycelial Ag [Pending], Histoplasma Antibody with Yeast Ag [Pending] Height (Feet): 6 Height (Inches): 5.00 Weight (Pounds): 175 General Appearance: alert, confused, agitated Julissa Still MD Jun 02, 2018 23:32
[2018-06-03] VITALS (7 sets, daily range): BP systolic 131–150; BP diastolic 67–93
[2018-06-03] MEDS: HYDROmorphone 1mg/ml Carpuject IVP PRN (00:48)
[2018-06-03 07:31] LABS: ALANINE AMINOTRANSFERASE 10 U/L (12-78); ALBUMIN 1.3 G/DL (3.4-5.0); ALBUMIN/GLOBULIN RATIO 0.3 (1.0-2.7); ALKALINE PHOSPHATASE 104 U/L (46-116); ANION GAP 1 mmol/L (5-15); ASPARTATE AMINO TRANSFERASE 21 U/L (15-37); BILIRUBIN,TOTAL 0.3 MG/DL (0.2-1.0); BLOOD UREA NITROGEN 8 mg/dL (7-18); CALCIUM 7.9 MG/DL (8.5-10.1); CARBON DIOXIDE 33 MMOL/L (21-32); CHLORIDE 106 MMOL/L (98-107); CREATININE 0.6 MG/DL (0.55-1.30); POTASSIUM 3.5 MMOL/L (3.5-5.1); SODIUM 140 MMOL/L (136-145)
[2018-06-03 07:40] LABS: BASOPHILS % (AUTO) 0.9 % (0.0-2.0); EOSINOPHILS % (AUTO) 0.2 % (0.0-3.0); HEMATOCRIT 25.9 % (42.0-52.0); HEMOGLOBIN 8.5 G/DL (14.2-18.0); LYMPHOCYTES % (AUTO) 10.8 % (20.0-45.0); MEAN CORPUSCULAR VOLUME 89 FL (80-99); MONOCYTES % (AUTO) 9.2 % (1.0-10.0); NEUTROPHILS % (AUTO) 78.8 % (45.0-75.0); PLATELET COUNT 278 K/UL (150-450); RED BLOOD COUNT 2.91 M/UL (4.70-6.10); RED CELL DISTRIBUTION WIDTH 13.2 % (11.6-14.8); WHITE BLOOD COUNT 12.2 K/UL (4.8-10.8)
[2018-06-03] MEDS: Metoprolol Tartrate 50mg tab ORAL SCH ×2 (08:55→21:27)
[2018-06-03] MEDS: Digoxin 0.125mg tab ORAL SCH (08:55)
[2018-06-03] MEDS: Docusate 100mg cap ORAL SCH ×2 (08:55→17:37)
[2018-06-03] MEDS: Pyridoxine 50mg tab ORAL SCH (08:56)
[2018-06-03] MEDS: Dakin's 0.125% Soln (Quarter Strength) 16oz TOPIC SCH (08:56)
[2018-06-03] MEDS: Amiodarone 200mg tab ORAL SCH (08:56)
[2018-06-03] MEDS: Isoniazid 300mg tab ORAL SCH (08:56)
--- NOTE | 2018-06-03 09:07 | Infectious Diseases Prog Note ---
Assessment/Plan Assessment/Plan 68 yo male who was transferred from [place] where he initially presented for AMS from [facility]. Low grade fever, SP Leukocytosis ,recurrent- SP Small lung cavitary lesion/ PNA- suspect likely to aspiration; lower suspicion for TB and/or fungal etiologies -CT c/a/p: 10 mm opacity in the peripheral anterolateral right upper lobe with small central cavitation. Patchy groundglass opacity in the posterior right upper lobe. Suspect that these represent inflammatory/infectious lesions, but neoplastic etiology of either is certainly possible. Large left and moderate right pleural effusions. Resultant compressive atelectasis of portions of the lower lobes. Equivocal distal esophageal wall thickening, could indicate esophagitis if real -sp cx usual resp noah -AFB sp cx; smear neg x4; MTB PCR neg -TB spot + -Neg Crag serum, legionella ag urine Hep C + ab- r/o actice chronic hepaitis C -CT abd- liver unremarkable -Hep Bc ab+ Sepsis 2/2 to bacteremia (at OSH) Likely source is skin ulcer Blood Cx 05/12/18 at [facility] -Bcx 05/12 and (here) NTD 2d echo: no vegetations 05/15 CXR: Right midlung nodule. Absence of this finding on previous study makes this more likely to be a focus of inflammation, but rapidly growing neoplasm not excludable. Left basilar hazy opacity. Most likely a moderate to large pleural effusion.Component of infiltrate or atelectasis is also possible 05/12 CXR: Asymmetric ill-defined confluent groundglass opacity within the left mid/inferior lung, of uncertain etiology. B/l LE necrotic ulcer and toes- acute on chronci, ischemic w/ likely superinfection- likely non-salvageable per surgery -05/23 SP B/l BKA Afib w/ RVR Encephalopathy , improving -CT head w/wo: No acute intracranial abnormalities. Mild atrophy of the brain. Nonspecific white matter hypoattenuation probably due to chronic small vessel disease. Likely secondary to sepsis Cerebrovascular accident. Hypertension. Sacral decubitus ulcers. Bipolar disorder. Coronary artery disease. Plan - Continue Levaquin #9 (abx d#22) and flagyl #16 for cavitary/aspiration PNA -low threshold to switch Cefepime and Flagyl to Meropenem if decompensates -05/26 SP IV Vancomycin #15, Cefepime #15 -Per Dept of Public health and to aid on discharge planning back to SNF, will cont empiric TB regimen with DONN (started on 05/26- ); Levaquin instead of Rifampin or Rifabutin given multiple drug interactions of Rifampin (w/ Amiodarone, quetiapine, metoprolol) -Dept of wants to treat empirically until final AFB culture results -monitor LFTs -EGK monitor QTc -Airborne isolation -f/u AFB sp cx,MTB PCR x1 -f/u cocci ab, fungal sp cx, - f/u Blood Cx - Wound care - Monitor CBC and Temps -f/u sp cx, u/a w/ reflex -Cdiff if diarrhea -Sx f/u -f/u Hep C VL, Hep A IgG, Hebc IgG and Hep Bs ab -Discharge approval per Dept of Health Thank you for this consult. We will continue to follow the patient during this hospitalization. Discussed withRN Subjective Allergies: Coded Allergies: MILK (Verified Allergy, Unknown, 02/02/18) Subjective Afebrile Continued mild leukocytosis AFB sputum still positive Objective Vital Signs Last 24 Hour Vital Signs Date Time Temp Pulse Resp B/P (MAP) Pulse Ox O2 Delivery O2 Flow Rate FiO2 06/03/18 08:00 97.9 86 20 149/90 (109) 98 06/03/18 04:00 98.1 62 20 150/93 (112) 100 06/03/18 00:00 98.1 59 20 131/80 (97) 100 06/02/18 22:21 81 140/77 06/02/18 21:00 Nasal Cannula 2.0 06/02/18 20:00 97 Nasal Cannula 2.0 28 06/02/18 20:00 98.8 81 20 140/77 (98) 99 06/02/18 20:00 80 20 Nasal Cannula 2.0 28 06/02/18 19:30 Nasal Cannula 2.0 28 06/02/18 16:00 98.1 68 156/72 (100) 06/02/18 12:00 98.0 70 144/80 (101) 06/02/18 10:00 68 06/02/18 09:57 68 151/65 Height (Feet): 6 Height (Inches): 5.00 Weight (Pounds): 169 Objective Gen: NAD. Mumbling not A/O HEENT: NCAT, MMM, EOMI, No Oral lesion, no scleral icterus LUNGS: CTAB, No W/C, No Accessory muscle use CARDS: RRR, S1, S2, No M/R/G ABD: Soft, NT, ND, + BS Ext: C/C/E, Pulses 2+ B/L (DP, Rad) SKIN: Left foot wound. No purulent drainage, Feet now bandaged Laboratory Tests Test 06/03/18 05:30 White Blood Count 12.2 K/UL (4.8-10.8) H Red Blood Count 2.91 M/UL (4.70-6.10) L Hemoglobin 8.5 G/DL (14.2-18.0) L Hematocrit 25.9 % (42.0-52.0) L Mean Corpuscular Volume 89 FL (80-99) Mean Corpuscular Hemoglobin 29.3 PG (27.0-31.0) Mean Corpuscular Hemoglobin Concent 32.9 G/DL (32.0-36.0) Red Cell Distribution Width 13.2 % (11.6-14.8) Platelet Count 278 K/UL (150-450) Mean Platelet Volume 5.1 FL (6.5-10.1) L Neutrophils (%) (Auto) 78.8 % (45.0-75.0) H Lymphocytes (%) (Auto) 10.8 % (20.0-45.0) L Monocytes (%) (Auto) 9.2 % (1.0-10.0) Eosinophils (%) (Auto) 0.2 % (0.0-3.0) Basophils (%) (Auto) 0.9 % (0.0-2.0) Sodium Level 140 MMOL/L (136-145) Potassium Level 3.5 MMOL/L (3.5-5.1) Chloride Level 106 MMOL/L (98-107) Carbon Dioxide Level 33 MMOL/L (21-32) H Anion Gap 1 mmol/L (5-15) L Blood Urea Nitrogen 8 mg/dL (7-18) Creatinine 0.6 MG/DL (0.55-1.30) Estimat Glomerular Filtration Rate > 60 mL/min (>60) Glucose Level 91 MG/DL (74-106) Calcium Level 7.9 MG/DL (8.5-10.1) L Total Bilirubin 0.3 MG/DL (0.2-1.0) Aspartate Amino Transf (AST/SGOT) 21 U/L (15-37) Alanine Aminotransferase (ALT/SGPT) 10 U/L (12-78) L Alkaline Phosphatase 104 U/L (46-116) Total Protein 6.0 G/DL (6.4-8.2) L Albumin 1.3 G/DL (3.4-5.0) L Globulin 4.7 g/dL Albumin/Globulin Ratio 0.3 (1.0-2.7) L Current Medications Medications (Trade) Dose Ordered Sig/Erlin Route PRN Reason Start Time Stop Time Status Last Admin Dose Admin Acetaminophen (Tylenol) 650 mg Q4H PRN ORAL TEMP>100.5 05/31/18 08:45 06/11/18 16:44 Al Hydroxide/Mg Hydroxide (Mylanta) 15 ml Q6H PRN ORAL DYSPEPSIA 05/26/18 18:30 06/22/18 18:15 Albuterol/ Ipratropium (Albuterol/ Ipratropium) 3 ml Q4H PRN HHN Shortness of Breath 05/30/18 23:45 06/04/18 23:44 06/01/18 13:10 Amiodarone HCl (Cordarone) 200 mg DAILY ORAL 05/27/18 09:00 06/17/18 08:59 06/02/18 09:00 Chlorhexidine Gluconate (Yari-Hex 2%) 1 applic DAILY@1999 TOPIC 05/26/18 20:00 06/23/18 19:59 06/02/18 22:22 Digoxin (Lanoxin) 0.125 mg DAILY ORAL 05/27/18 09:00 06/12/18 08:59 06/02/18 10:00 Diphenhydramine HCl (Benadryl) 25 mg Q8H PRN ORAL Itching/Pruritis 05/26/18 16:46 06/22/18 16:45 Docusate Sodium (Colace) 100 mg TWICE A DAY ORAL 05/26/18 18:00 06/22/18 17:59 06/02/18 18:34 Enoxaparin Sodium (Lovenox) 80 mg Q12HR SUBQ 05/30/18 21:00 06/29/18 20:59 06/02/18 22:23 Ethambutol HCl (Myambutol) 1,200 mg DAILY ORAL 05/27/18 09:00 06/25/18 13:59 06/02/18 09:00 Gabapentin (Neurontin) 100 mg THREE TIMES A DAY ORAL 05/26/18 18:00 06/11/18 17:59 06/02/18 18:34 Hydromorphone HCl (Dilaudid) 0.5 mg Q3HR PRN IVP FOR MODERATE PAIN (4-6) 05/31/18 04:00 06/07/18 03:59 Hydromorphone HCl (Dilaudid) 1 mg Q3H PRN IVP Moderate Pain (Pain Scale 4-6) 05/31/18 04:00 06/07/18 03:59 06/03/18 00:48 Hydromorphone HCl (Dilaudid) 2 mg Q3H PRN IVP Severe Pain (Pain Scale 7-10) 05/30/18 21:30 06/06/18 21:29 06/03/18 04:24 Isoniazid (Inh) 300 mg DAILY ORAL 05/27/18 09:00 06/25/18 13:59 06/02/18 10:01 Levofloxacin 100 ml @ 100 mls/hr Q24H IVPB 06/01/18 09:00 06/08/18 08:59 06/02/18 09:56 Lorazepam (Ativan 2mg/ml 1ml) 1 mg Q4H PRN IV For Anxiety 05/31/18 17:15 06/07/18 17:14 06/01/18 15:32 Magnesium Hydroxide (Mom) 30 ml BIDPRN PRN ORAL Constipation 05/26/18 18:30 06/22/18 18:15 Metoprolol Tartrate (Lopressor) 50 mg Q12HR ORAL 05/26/18 21:00 06/11/18 20:59 06/02/18 22:21 Metronidazole 100 ml @ 100 mls/hr Q8HR IVPB 05/31/18 20:00 06/07/18 19:59 06/03/18 05:23 Ondansetron HCl (Zofran) 4 mg Q6H PRN IVP Nausea & Vomiting 05/26/18 18:30 06/22/18 18:15 Polyethylene Glycol (Miralax) 17 gm DAILY ORAL 05/27/18 09:00 06/16/18 10:59 06/01/18 10:27 Pyrazinamide (Pza) 1,500 mg DAILY ORAL 05/27/18 09:00 06/25/18 13:59 06/02/18 09:59 Pyridoxine HCl (Vitamin B6) 50 mg DAILY ORAL 05/27/18 09:00 06/25/18 13:59 06/02/18 10:00 Quetiapine Fumarate (SEROquel) 100 mg BEDTIME ORAL 05/26/18 21:00 06/11/18 20:59 06/02/18 22:21 Sennosides (Senokot) 8.6 mg BIDPRN PRN ORAL Constipation 05/26/18 18:30 06/22/18 18:15 Sodium Hypochlorite (Dakin's Quarter Strength) 1 applic DAILY TOPIC 05/27/18 09:00 06/25/18 16:00 06/02/18 09:00 Vinny Murray MD Jun 03, 2018 09:07
[2018-06-03] MEDS: Enoxaparin 80mg Inj SUBQ SCH ×2 (09:12→21:28)
[2018-06-03] MEDS: Miralax 17gm pkt ORAL SCH (09:13)
[2018-06-03] MEDS: LORazepam Inj 2mg/ml 1ml IV PRN ×2 (10:48→17:37)
--- NOTE | 2018-06-03 14:39 | Internal Med Progress Note ---
Subjective Physician Name Pedro Caban Attending Physician Pedro Caban MD Current Medications Medications (Trade) Dose Ordered Sig/Erlin Route PRN Reason Start Time Stop Time Status Last Admin Dose Admin Acetaminophen (Tylenol) 650 mg Q4H PRN ORAL TEMP>100.5 05/31/18 08:45 06/11/18 16:44 Al Hydroxide/Mg Hydroxide (Mylanta) 15 ml Q6H PRN ORAL DYSPEPSIA 05/26/18 18:30 06/22/18 18:15 Albuterol/ Ipratropium (Albuterol/ Ipratropium) 3 ml Q4H PRN HHN Shortness of Breath 05/30/18 23:45 06/04/18 23:44 06/01/18 13:10 Amiodarone HCl (Cordarone) 200 mg DAILY ORAL 05/27/18 09:00 06/17/18 08:59 06/03/18 08:56 Chlorhexidine Gluconate (Yari-Hex 2%) 1 applic DAILY@2000 TOPIC 05/26/18 20:00 06/23/18 19:59 06/02/18 22:22 Digoxin (Lanoxin) 0.125 mg DAILY ORAL 05/27/18 09:00 06/12/18 08:59 06/03/18 08:55 Diphenhydramine HCl (Benadryl) 25 mg Q8H PRN ORAL Itching/Pruritis 05/26/18 16:46 06/22/18 16:45 Docusate Sodium (Colace) 100 mg TWICE A DAY ORAL 05/26/18 18:00 06/22/18 17:59 06/03/18 08:55 Enoxaparin Sodium (Lovenox) 80 mg Q12HR SUBQ 05/30/18 21:00 06/29/18 20:59 06/03/18 09:12 Ethambutol HCl (Myambutol) 1,200 mg DAILY ORAL 05/27/18 09:00 06/25/18 13:59 06/03/18 08:55 Gabapentin (Neurontin) 100 mg THREE TIMES A DAY ORAL 05/26/18 18:00 06/11/18 17:59 06/03/18 13:00 Hydromorphone HCl (Dilaudid) 0.5 mg Q3HR PRN IVP FOR MODERATE PAIN (4-6) 05/31/18 04:00 06/07/18 03:59 Hydromorphone HCl (Dilaudid) 1 mg Q3H PRN IVP Moderate Pain (Pain Scale 4-6) 05/31/18 04:00 06/07/18 03:59 06/03/18 00:48 Hydromorphone HCl (Dilaudid) 2 mg Q3H PRN IVP Severe Pain (Pain Scale 7-10) 05/30/18 21:30 06/06/18 21:29 06/03/18 13:00 Isoniazid (Inh) 300 mg DAILY ORAL 05/27/18 09:00 06/25/18 13:59 06/03/18 08:56 Levofloxacin 100 ml @ 100 mls/hr Q24H IVPB 06/01/18 09:00 06/08/18 08:59 06/03/18 09:17 Lorazepam (Ativan 2mg/ml 1ml) 1 mg Q4H PRN IV For Anxiety 05/31/18 17:15 06/07/18 17:14 06/03/18 10:48 Magnesium Hydroxide (Mom) 30 ml BIDPRN PRN ORAL Constipation 05/26/18 18:30 06/22/18 18:15 Metoprolol Tartrate (Lopressor) 50 mg Q12HR ORAL 05/26/18 21:00 06/11/18 20:59 06/03/18 08:55 Metronidazole 100 ml @ 100 mls/hr Q8HR IVPB 05/31/18 20:00 06/07/18 19:59 06/03/18 13:00 Ondansetron HCl (Zofran) 4 mg Q6H PRN IVP Nausea & Vomiting 05/26/18 18:30 06/22/18 18:15 Polyethylene Glycol (Miralax) 17 gm DAILY ORAL 05/27/18 09:00 06/16/18 10:59 06/03/18 09:13 Pyrazinamide (Pza) 1,500 mg DAILY ORAL 05/27/18 09:00 06/25/18 13:59 06/03/18 08:55 Pyridoxine HCl (Vitamin B6) 50 mg DAILY ORAL 05/27/18 09:00 06/25/18 13:59 06/03/18 08:56 Quetiapine Fumarate (SEROquel) 100 mg BEDTIME ORAL 05/26/18 21:00 06/11/18 20:59 06/02/18 22:21 Sennosides (Senokot) 8.6 mg BIDPRN PRN ORAL Constipation 05/26/18 18:30 06/22/18 18:15 Sodium Hypochlorite (Dakin's Quarter Strength) 1 applic DAILY TOPIC 05/27/18 09:00 06/25/18 16:00 06/03/18 08:56 Allergies: Coded Allergies: MILK (Verified Allergy, Unknown, 02/02/18) Subjective awake, alert, responsive, C/O stumps pain Objective Last Vital Signs Date Time Temp Pulse Resp B/P (MAP) Pulse Ox O2 Delivery O2 Flow Rate FiO2 06/03/18 13:30 97.9 06/03/18 11:54 67 20 139/91 (107) 98 06/03/18 09:57 Nasal Cannula 2.0 28 Laboratory Tests Test 06/03/18 05:30 White Blood Count 12.2 K/UL (4.8-10.8) H Red Blood Count 2.91 M/UL (4.70-6.10) L Hemoglobin 8.5 G/DL (14.2-18.0) L Hematocrit 25.9 % (42.0-52.0) L Mean Corpuscular Volume 89 FL (80-99) Mean Corpuscular Hemoglobin 29.3 PG (27.0-31.0) Mean Corpuscular Hemoglobin Concent 32.9 G/DL (32.0-36.0) Red Cell Distribution Width 13.2 % (11.6-14.8) Platelet Count 278 K/UL (150-450) Mean Platelet Volume 5.1 FL (6.5-10.1) L Neutrophils (%) (Auto) 78.8 % (45.0-75.0) H Lymphocytes (%) (Auto) 10.8 % (20.0-45.0) L Monocytes (%) (Auto) 9.2 % (1.0-10.0) Eosinophils (%) (Auto) 0.2 % (0.0-3.0) Basophils (%) (Auto) 0.9 % (0.0-2.0) Sodium Level 140 MMOL/L (136-145) Potassium Level 3.5 MMOL/L (3.5-5.1) Chloride Level 106 MMOL/L (98-107) Carbon Dioxide Level 33 MMOL/L (21-32) H Anion Gap 1 mmol/L (5-15) L Blood Urea Nitrogen 8 mg/dL (7-18) Creatinine 0.6 MG/DL (0.55-1.30) Estimat Glomerular Filtration Rate > 60 mL/min (>60) Glucose Level 91 MG/DL (74-106) Calcium Level 7.9 MG/DL (8.5-10.1) L Total Bilirubin 0.3 MG/DL (0.2-1.0) Aspartate Amino Transf (AST/SGOT) 21 U/L (15-37) Alanine Aminotransferase (ALT/SGPT) 10 U/L (12-78) L Alkaline Phosphatase 104 U/L (46-116) Total Protein 6.0 G/DL (6.4-8.2) L Albumin 1.3 G/DL (3.4-5.0) L Globulin 4.7 g/dL Albumin/Globulin Ratio 0.3 (1.0-2.7) L Intake and Output 06/02/18 06/03/18 19:00 07:00 Intake Total 600 ml 200 ml Output Total 900 ml Balance -300 ml 200 ml Intake Oral 400 ml IV Total 200 ml 200 ml Output Urine Total 900 ml # Voids 2 # Bowel Movements 2 Objective General: No acute distress, awake and alert HEENT: NCAT, sclera anicteric, PERRL, EOMI. Neck: Supple, no significant jugular venous distention, Lungs: Fair inspiratory effort, Decrease air on bases, no Wheeze or Rales. Heart: Irregular rate and rhythm, normal S1/S2, no murmurs Abdomen: soft, nontender, nondistended. Normoactive bowel sounds. / Rectal: Refused and deferred. Extremities: No Cyanosis , clubbing or edema. Bilateral stumps intact with chaitanya, LUE piccline. Neuro: A&O x 3, Able to move all extremities Skin: warm, no rashes Assessment/Plan Assessment/Plan LeSmall lung cavitary lesion/ PNA- suspect likely to aspiration; lower suspicion for TB and/or fungal etiologies -CT c/a/p: 10 mm opacity in the peripheral anterolateral right upper lobe with small central cavitation. Patchy groundglass opacity in the posterior right upper lobe. Suspect that these represent inflammatory/infectious lesions, but neoplastic etiology of either is certainly possible. Large left and moderate right pleural effusions. Resultant compressive atelectasis of portions of the lower lobes. Equivocal distal esophageal wall thickening, could indicate esophagitis if real -sp cx usual resp noah -AFB sp cx; smear neg x4; MTB PCR neg -TB spot + -Neg Crag serum, legionella ag urine Hep C + ab- r/o actice chronic hepaitis C -CT abd- liver unremarkable -Hep Bc ab+ Sepsis / to bacteremia (at OSH) Likely source is skin ulcer Blood Cx 05/12/18 at [facility] -Bcx 05/12 and (here) NTD 2d echo: no vegetations 05/15 CXR: Right midlung nodule. Absence of this finding on previous study makes this more likely to be a focus of inflammation, but rapidly growing neoplasm not excludable. Left basilar hazy opacity. Most likely a moderate to large pleural effusion.Component of infiltrate or atelectasis is also possible 05/12 CXR: Asymmetric ill-defined confluent groundglass opacity within the left mid/inferior lung, of uncertain etiology. B/l LE necrotic ulcer and toes- acute on chronci, ischemic w/ likely superinfection- likely non-salvageable per surgery -05/23 SP B/l BKA Afib w/ RVR Encephalopathy , improving -CT head w/wo: No acute intracranial abnormalities. Mild atrophy of the brain. Nonspecific white matter hypoattenuation probably due to chronic small vessel disease. Likely secondary to sepsis Cerebrovascular accident. Hypertension. Sacral decubitus ulcers. Bipolar disorder. Coronary artery disease. Plan: Abx: Levaquin and Flagyl F/U with ID recommendations wound care Lovenox injection. Sraer Lyrica 25 mg TID for better pain control Pedro Caban MD Jun 03, 2018 14:39
--- NOTE | 2018-06-03 14:56 | Pulmonology Progress Note ---
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 s/p bilateral AKA 12.18 Small lung cavitary lesion/ likely due to PNA cavitary/aspiration PNA acute encephalopathy, likely secondary to sepsis atrial fibrillation with rapid ventricular response borderline hypotension- resolved acute DVT R SFV hepatitis C hypertension coronary artery disease history of CVA dementia bipolar disorder protein calorie malnutrition anemia PLAN OF CARE MS floor resp isolation O2 prn to keep sat above 92, pulmonary toilet prn CT C/A/P noted small lung cavitary lesion probably due to PNA- per ID ; likely due to aspiration, lower suspicion for TB and fungal etiology cocci pending , crypto negative recent AFB smear x 3 -negative M. TB by PCR negative T spot positive abx for PNA , ID follows Per Dept of Public health and to aid on discharge planning back to SNF, cont with empiric TB regimen with DONN (started on 05/26- ); Levaquin instead of Rifampin or Rifabutin given multiple drug interactions of Rifampin (w/ Amiodarone, quetiapine, metoprolol) Dept of [facility] wants to treat empirically until final AFB culture results monitor LFTs closely bilateral pleural effusion with resulting compressive atelectasis s/p thoracentesis left pleural effusion, 0450 ml cytology - no malignancy' fup tap CXR no complications repeated CXR bilateral stable pleural effusion rate control with BB and digoxin , continue Amiodarone anticoagulation with Lovenox bid, consider switch to Eliquis if ok with cardio cardio follows hypotension resolved , possibly was due to sepsis, off midodrine ECHO with pEF 60-65% and RVSP of 45 c/w mod pulm HTN vasc surgery and podiatry eval appreciated per vasc surgery legs not salvageable and pt will need bilateral AKA wound care as per surgeon lipid panel with borderline TG, low fat low cholesterol diet s/p surgery for bilateral AKA ( daughter in agreement), bioethics recommendations noted and appreciated surgeon follows stumps healing nicely PT/OT/ST monitor HH with goal to keep Hgb above 7 psych meds resumed recommend psych eval supportive care bowel regimen diet recs implemented in POC pain management prn case discussed and evaluated by supervising physician Subjective Allergies: Coded Allergies: MILK (Verified Allergy, Unknown, 02/02/18) Subjective mild leukocytosis, no fevers remains on isolation on empiric Rx for TB as per Department of public health recs Objective Last 24 Hour Vital Signs Date Time Temp Pulse Resp B/P (MAP) Pulse Ox O2 Delivery O2 Flow Rate FiO2 06/03/18 13:30 97.9 06/03/18 11:54 97.9 67 20 139/91 (107) 98 06/03/18 09:57 97 Nasal Cannula 2.0 28 06/03/18 09:55 Nasal Cannula 2.0 28 06/03/18 09:54 77 18 Nasal Cannula 2.0 28 06/03/18 09:00 Nasal Cannula 2.0 06/03/18 08:55 86 149/90 06/03/18 08:55 86 06/03/18 08:00 97.9 86 20 149/90 (109) 98 06/03/18 04:00 98.1 62 20 150/93 (112) 100 06/03/18 00:00 98.1 59 20 131/80 (97) 100 06/02/18 22:21 81 140/77 06/02/18 21:00 Nasal Cannula 2.0 06/02/18 20:00 97 Nasal Cannula 2.0 28 06/02/18 20:00 98.8 81 20 140/77 (98) 99 06/02/18 20:00 80 20 Nasal Cannula 2.0 28 06/02/18 19:30 Nasal Cannula 2.0 28 06/02/18 16:00 98.1 68 156/72 (100) Intake and Output 06/02/18 06/03/18 19:00 07:00 Intake Total 600 ml 200 ml Output Total 900 ml Balance -300 ml 200 ml Intake Oral 400 ml IV Total 200 ml 200 ml Output Urine Total 900 ml # Voids 2 # Bowel Movements 2 Objective General Appearance: no apparent distress, awake, confused HEENT: normocephalic, atraumatic, anicteric Neck: supple Respiratory/Chest: few scattered rhonchi , mild JVD Cardiovascular/Chest: irregularly irregular , rate controlled, PICC intact Abdomen: normal bowel sounds, non tender, soft Extremities: bilateral AKA, stumps [employer] ADMIN[employer] with chaitanya, intact, no drainage, no erythema, no edema Neurologic: abnormal gait, awake, confused Musculoskeletal: atrophy - BLE Laboratory Tests 06/03/18 05:30: White Blood Count 12.2H, Red Blood Count 2.91L, Hemoglobin 8.5L, Hematocrit 25.9L, Mean Corpuscular Volume 89, Mean Corpuscular Hemoglobin 29.3, Mean Corpuscular Hemoglobin Concent 32.9, Red Cell Distribution Width 13.2, Platelet Count 278, Mean Platelet Volume 5.1L, Neutrophils (%) (Auto) 78.8H, Lymphocytes (%) (Auto) 10.8L, Monocytes (%) (Auto) 9.2, Eosinophils (%) (Auto) 0.2, Basophils (%) (Auto) 0.9, Sodium Level 140, Potassium Level 3.5, Chloride Level 106, Carbon Dioxide Level 33H, Anion Gap 1L, Blood Urea Nitrogen 8, Creatinine 0.6, Estimat Glomerular Filtration Rate > 60, Glucose Level 91, Calcium Level 7.9L, Total Bilirubin 0.3, Aspartate Amino Transf (AST/SGOT) 21, Alanine Aminotransferase (ALT/SGPT) 10L, Alkaline Phosphatase 104, Total Protein 6.0L, Albumin 1.3L, Globulin 4.7, Albumin/Globulin Ratio 0.3L Current Medications Medications (Trade) Dose Ordered Sig/Erlin Route PRN Reason Start Time Stop Time Status Last Admin Dose Admin Acetaminophen (Tylenol) 650 mg Q4H PRN ORAL TEMP>100.5 05/31/18 08:45 06/11/18 16:44 Al Hydroxide/Mg Hydroxide (Mylanta) 15 ml Q6H PRN ORAL DYSPEPSIA 05/26/18 18:30 06/22/18 18:15 Albuterol/ Ipratropium (Albuterol/ Ipratropium) 3 ml Q4H PRN HHN Shortness of Breath 05/30/18 23:45 06/04/18 23:44 06/01/18 13:10 Amiodarone HCl (Cordarone) 200 mg DAILY ORAL 05/27/18 09:00 06/17/18 08:59 06/03/18 08:56 Chlorhexidine Gluconate (Yari-Hex 2%) 1 applic DAILY@1999 TOPIC 05/26/18 20:00 06/23/18 19:59 06/02/18 22:22 Digoxin (Lanoxin) 0.125 mg DAILY ORAL 05/27/18 09:00 06/12/18 08:59 06/03/18 08:55 Diphenhydramine HCl (Benadryl) 25 mg Q8H PRN ORAL Itching/Pruritis 05/26/18 16:46 06/22/18 16:45 Docusate Sodium (Colace) 100 mg TWICE A DAY ORAL 05/26/18 18:00 06/22/18 17:59 06/03/18 08:55 Enoxaparin Sodium (Lovenox) 80 mg Q12HR SUBQ 05/30/18 21:00 06/29/18 20:59 06/03/18 09:12 Ethambutol HCl (Myambutol) 1,200 mg DAILY ORAL 05/27/18 09:00 06/25/18 13:59 06/03/18 08:55 Gabapentin (Neurontin) 100 mg THREE TIMES A DAY ORAL 05/26/18 18:00 06/11/18 17:59 06/03/18 13:00 Hydromorphone HCl (Dilaudid) 0.5 mg Q3HR PRN IVP FOR MODERATE PAIN (4-6) 05/31/18 04:00 06/07/18 03:59 Hydromorphone HCl (Dilaudid) 1 mg Q3H PRN IVP Moderate Pain (Pain Scale 4-6) 05/31/18 04:00 06/07/18 03:59 06/03/18 00:48 Hydromorphone HCl (Dilaudid) 2 mg Q3H PRN IVP Severe Pain (Pain Scale 7-10) 05/30/18 21:30 06/06/18 21:29 06/03/18 13:00 Isoniazid (Inh) 300 mg DAILY ORAL 05/27/18 09:00 06/25/18 13:59 06/03/18 08:56 Levofloxacin 100 ml @ 100 mls/hr Q24H IVPB 06/01/18 09:00 06/08/18 08:59 06/03/18 09:17 Lorazepam (Ativan 2mg/ml 1ml) 1 mg Q4H PRN IV For Anxiety 05/31/18 17:15 06/07/18 17:14 06/03/18 10:48 Magnesium Hydroxide (Mom) 30 ml BIDPRN PRN ORAL Constipation 05/26/18 18:30 06/22/18 18:15 Metoprolol Tartrate (Lopressor) 50 mg Q12HR ORAL 05/26/18 21:00 06/11/18 20:59 06/03/18 08:55 Metronidazole 100 ml @ 100 mls/hr Q8HR IVPB 05/31/18 20:00 06/07/18 19:59 06/03/18 13:00 Ondansetron HCl (Zofran) 4 mg Q6H PRN IVP Nausea & Vomiting 05/26/18 18:30 06/22/18 18:15 Polyethylene Glycol (Miralax) 17 gm DAILY ORAL 05/27/18 09:00 06/16/18 10:59 06/03/18 09:13 Pyrazinamide (Pza) 1,500 mg DAILY ORAL 05/27/18 09:00 06/25/18 13:59 06/03/18 08:55 Pyridoxine HCl (Vitamin B6) 50 mg DAILY ORAL 05/27/18 09:00 06/25/18 13:59 06/03/18 08:56 Quetiapine Fumarate (SEROquel) 100 mg BEDTIME ORAL 05/26/18 21:00 06/11/18 20:59 06/02/18 22:21 Sennosides (Senokot) 8.6 mg BIDPRN PRN ORAL Constipation 05/26/18 18:30 06/22/18 18:15 Sodium Hypochlorite (Dakin's Quarter Strength) 1 applic DAILY TOPIC 05/27/18 09:00 06/25/18 16:00 06/03/18 08:56 Linsey Boo NP Jun 03, 2018 14:55
[2018-06-03] MEDS: Albuterol/Ipratropium 3ml neb HHN PRN (15:56)
[2018-06-03] MEDS: Lyrica 25mg cap ORAL SCH (17:37)
[2018-06-03] MEDS: Dyna-Hex 2% Top Sol 2oz TOPIC SCH (21:27)
[2018-06-04 04:00] VITALS: BP 128/67
--- NOTE | 2018-06-04 08:25 | Pulmonology Progress Note ---
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 s/p bilateral AKA 12.10/05 Small lung cavitary lesion/ likely due to PNA cavitary/aspiration PNA acute encephalopathy, likely secondary to sepsis atrial fibrillation with rapid ventricular response borderline hypotension- resolved acute DVT R SFV hepatitis C hypertension coronary artery disease history of CVA dementia bipolar disorder protein calorie malnutrition anemia PLAN OF CARE MS floor resp isolation O2 prn to keep sat above 92, pulmonary toilet prn CT C/A/P noted small lung cavitary lesion probably due to PNA- per ID ; likely due to aspiration, lower suspicion for TB and fungal etiology cocci pending , crypto negative recent AFB smear x 3 -negative M.TB by PCR negative T spot positive abx for PNA , ID follows Per Dept of Public health and to aid on discharge planning back to SNF, cont with empiric TB regimen with DONN (started on 05/26- ); Levaquin instead of Rifampin or Rifabutin given multiple drug interactions of Rifampin (w/ Amiodarone, quetiapine, metoprolol) Dept of PH wants to treat empirically until final AFB culture results monitor LFTs closely bilateral pleural effusion with resulting compressive atelectasis s/p thoracentesis left pleural effusion, 450 ml cytology - no malignancy fup tap CXR no complications repeated CXR bilateral stable pleural effusion rate control with BB and digoxin , continue Amiodarone anticoagulation with Lovenox bid, consider switch to Eliquis or bridge with Coumadin if ok with cardio cardio follows hypotension resolved , possibly was due to sepsis, off midodrine ECHO with pEF 60-65% and RVSP of 45 c/w mod pulm HTN vasc surgery and podiatry eval appreciated per vasc surgery legs not salvageable and pt will need bilateral AKA wound care as per surgeon lipid panel with borderline TG, low fat low cholesterol diet s/p surgery for bilateral AKA ( daughter in agreement), bioethics recommendations noted and appreciated surgeon follows stumps healing nicely PT/OT/ST monitor HH with goal to keep Hgb above 7 psych meds resumed recommend psych eval supportive care bowel regimen diet recs implemented in POC pain management prn case discussed and evaluated by supervising physician Subjective Allergies: Coded Allergies: MILK (Verified Allergy, Unknown, 02/02/18) Subjective mild leukocytosis, no fevers remains on isolation on empiric Rx for TB as per Department of public health recs Objective Last 24 Hour Vital Signs Date Time Temp Pulse Resp B/P (MAP) Pulse Ox O2 Delivery O2 Flow Rate FiO2 06/04/18 04:00 97.0 51 17 128/67 (87) 100 06/03/18 23:50 98.1 57 18 134/67 (89) 100 06/03/18 21:46 58 18 Nasal Cannula 2.0 28 06/03/18 21:46 99 Nasal Cannula 2.0 28 06/03/18 21:46 Nasal Cannula 2.0 28 06/03/18 21:27 53 137/75 06/03/18 21:00 Nasal Cannula 2.0 Nasal Cannula 2.0 06/03/18 20:00 97.9 53 17 137/75 (95) 99 06/03/18 17:09 97.7 06/03/18 17:09 97.7 06/03/18 16:11 89 22 100 Nasal Cannula 2.0 28 06/03/18 16:00 97.7 60 20 145/86 (105) 94 06/03/18 15:56 40 20 100 Nasal Cannula 2.0 28 06/03/18 11:54 97.9 67 20 139/91 (107) 98 06/03/18 09:57 97 Nasal Cannula 2.0 28 06/03/18 09:55 Nasal Cannula 2.0 28 06/03/18 09:54 77 18 Nasal Cannula 2.0 28 06/03/18 09:00 Nasal Cannula 2.0 06/03/18 08:55 86 149/90 06/03/18 08:55 86 Intake and Output 06/03/18 06/04/18 19:00 07:00 Intake Total 800 ml Balance 800 ml Intake Oral 600 ml IV Total 200 ml # Voids 3 # Bowel Movements 1 Objective General Appearance: no apparent distress, awake, confused HEENT: normocephalic, atraumatic, anicteric Neck: supple Respiratory/Chest: few scattered rhonchi , mild JVD Cardiovascular/Chest: irregularly irregular , rate controlled, PICC intact Abdomen: normal bowel sounds, non tender, soft Extremities: bilateral AKA, stumps [employer] with chaitanya, intact, no drainage, no erythema, no edema Neurologic: abnormal gait, awake, confused Musculoskeletal: atrophy - BLE Current Medications Medications (Trade) Dose Ordered Sig/Erlin Route PRN Reason Start Time Stop Time Status Last Admin Dose Admin Acetaminophen (Tylenol) 650 mg Q4H PRN ORAL TEMP>100.5 05/31/18 08:45 06/11/18 16:44 Al Hydroxide/Mg Hydroxide (Mylanta) 15 ml Q6H PRN ORAL DYSPEPSIA 05/26/18 18:30 06/22/18 18:15 Albuterol/ Ipratropium (Albuterol/ Ipratropium) 3 ml Q4H PRN HHN Shortness of Breath 06/03/18 15:45 06/08/18 15:44 06/03/18 15:56 Amiodarone HCl (Cordarone) 200 mg DAILY ORAL 05/27/18 09:00 06/17/18 08:59 06/03/18 08:56 Chlorhexidine Gluconate (Yari-Hex 2%) 1 applic DAILY@2000 TOPIC 05/26/18 20:00 06/23/18 19:59 06/03/18 21:27 Digoxin (Lanoxin) 0.125 mg DAILY ORAL 05/27/18 09:00 06/12/18 08:59 06/03/18 08:55 Diphenhydramine HCl (Benadryl) 25 mg Q8H PRN ORAL Itching/Pruritis 05/26/18 16:46 06/22/18 16:45 Docusate Sodium (Colace) 100 mg TWICE A DAY ORAL 05/26/18 18:00 06/22/18 17:59 06/03/18 17:37 Enoxaparin Sodium (Lovenox) 80 mg Q12HR SUBQ 05/30/18 21:00 06/29/18 20:59 06/03/18 21:28 Ethambutol HCl (Myambutol) 1,200 mg DAILY ORAL 05/27/18 09:00 06/25/18 13:59 06/03/18 08:55 Gabapentin (Neurontin) 100 mg THREE TIMES A DAY ORAL 05/26/18 18:00 06/11/18 17:59 06/03/18 17:37 Hydromorphone HCl (Dilaudid) 0.5 mg Q3HR PRN IVP FOR MODERATE PAIN (4-6) 05/31/18 04:00 06/07/18 03:59 Hydromorphone HCl (Dilaudid) 1 mg Q3H PRN IVP Moderate Pain (Pain Scale 4-6) 05/31/18 04:00 06/07/18 03:59 06/03/18 00:48 Hydromorphone HCl (Dilaudid) 2 mg Q3H PRN IVP Severe Pain (Pain Scale 7-10) 05/30/18 21:30 06/06/18 21:29 06/03/18 16:39 Isoniazid (Inh) 300 mg DAILY ORAL 05/27/18 09:00 06/25/18 13:59 06/03/18 08:56 Levofloxacin 100 ml @ 100 mls/hr Q24H IVPB 06/01/18 09:00 06/08/18 08:59 06/03/18 09:17 Lorazepam (Ativan 2mg/ml 1ml) 1 mg Q4H PRN IV For Anxiety 05/31/18 17:15 06/07/18 17:14 06/03/18 17:37 Magnesium Hydroxide (Mom) 30 ml BIDPRN PRN ORAL Constipation 05/26/18 18:30 06/22/18 18:15 Metoprolol Tartrate (Lopressor) 50 mg Q12HR ORAL 05/26/18 21:00 06/11/18 20:59 06/03/18 21:27 Metronidazole 100 ml @ 100 mls/hr Q8HR IVPB 05/31/18 20:00 06/07/18 19:59 06/04/18 05:07 Ondansetron HCl (Zofran) 4 mg Q6H PRN IVP Nausea & Vomiting 05/26/18 18:30 06/22/18 18:15 Polyethylene Glycol (Miralax) 17 gm DAILY ORAL 05/27/18 09:00 06/16/18 10:59 06/03/18 09:13 Pregabalin (Lyrica) 25 mg THREE TIMES A DAY ORAL 06/03/18 18:00 07/03/18 17:59 06/03/18 17:37 Pyrazinamide (Pza) 1,500 mg DAILY ORAL 05/27/18 09:00 06/25/18 13:59 06/03/18 08:55 Pyridoxine HCl (Vitamin B6) 50 mg DAILY ORAL 05/27/18 09:00 06/25/18 13:59 06/03/18 08:56 Quetiapine Fumarate (SEROquel) 100 mg BEDTIME ORAL 05/26/18 21:00 06/11/18 20:59 06/03/18 21:27 Sennosides (Senokot) 8.6 mg BIDPRN PRN ORAL Constipation 05/26/18 18:30 06/22/18 18:15 Sodium Hypochlorite (Dakin's Quarter Strength) 1 applic DAILY TOPIC 05/27/18 09:00 06/25/18 16:00 06/03/18 08:56 Linsey Boo NP Jun 04, 2018 08:25
[2018-06-04 09:00] VITALS: BP 97/78
[2018-06-04] MEDS: Dakin's 0.125% Soln (Quarter Strength) 16oz TOPIC SCH (09:26)
[2018-06-04] MEDS: Miralax 17gm pkt ORAL SCH ×2 (09:27→10:26)
[2018-06-04] MEDS: Enoxaparin 80mg Inj SUBQ SCH ×2 (09:28→21:19)
[2018-06-04] MEDS: Pyridoxine 50mg tab ORAL SCH (09:29)
[2018-06-04] MEDS: Docusate 100mg cap ORAL SCH ×3 (09:29→17:15)
[2018-06-04] MEDS: Amiodarone 200mg tab ORAL SCH (09:29)
[2018-06-04] MEDS: Digoxin 0.125mg tab ORAL SCH (09:29)
[2018-06-04] MEDS: Lyrica 25mg cap ORAL SCH ×3 (09:30→17:16)
[2018-06-04] MEDS: Isoniazid 300mg tab ORAL SCH (09:31)
[2018-06-04] MEDS: Metoprolol Tartrate 50mg tab ORAL SCH ×2 (09:31→21:17)
[2018-06-04] MEDS: HYDROmorphone 1mg/ml Carpuject IVP PRN ×2 (10:31→21:37)
[2018-06-04 12:00] VITALS: BP 146/85
--- NOTE | 2018-06-04 12:15 | Internal Med Progress Note ---
Subjective Physician Name Pedro Caban Attending Physician Pedro Caban MD Current Medications Medications (Trade) Dose Ordered Sig/Erlin Route PRN Reason Start Time Stop Time Status Last Admin Dose Admin Acetaminophen (Tylenol) 650 mg Q4H PRN ORAL TEMP>100.5 05/31/18 08:45 06/11/18 16:44 Al Hydroxide/Mg Hydroxide (Mylanta) 15 ml Q6H PRN ORAL DYSPEPSIA 05/26/18 18:30 06/22/18 18:15 Albuterol/ Ipratropium (Albuterol/ Ipratropium) 3 ml Q4H PRN HHN Shortness of Breath 06/03/18 15:45 06/08/18 15:44 06/03/18 15:56 Amiodarone HCl (Cordarone) 200 mg DAILY ORAL 05/27/18 09:00 06/17/18 08:59 06/04/18 09:29 Chlorhexidine Gluconate (Yari-Hex 2%) 1 applic DAILY@2000 TOPIC 05/26/18 20:00 06/23/18 19:59 06/03/18 21:27 Digoxin (Lanoxin) 0.125 mg DAILY ORAL 05/27/18 09:00 06/12/18 08:59 06/04/18 09:29 Diphenhydramine HCl (Benadryl) 25 mg Q8H PRN ORAL Itching/Pruritis 05/26/18 16:46 06/22/18 16:45 Docusate Sodium (Colace) 100 mg TWICE A DAY ORAL 05/26/18 18:00 06/22/18 17:59 06/03/18 17:37 Enoxaparin Sodium (Lovenox) 80 mg Q12HR SUBQ 05/30/18 21:00 06/29/18 20:59 06/04/18 09:28 Ethambutol HCl (Myambutol) 1,200 mg DAILY ORAL 05/27/18 09:00 06/25/18 13:59 06/04/18 09:31 Gabapentin (Neurontin) 100 mg THREE TIMES A DAY ORAL 05/26/18 18:00 06/11/18 17:59 06/04/18 09:32 Hydromorphone HCl (Dilaudid) 0.5 mg Q3HR PRN IVP FOR MODERATE PAIN (4-6) 05/31/18 04:00 06/07/18 03:59 Hydromorphone HCl (Dilaudid) 1 mg Q3H PRN IVP Moderate Pain (Pain Scale 4-6) 05/31/18 04:00 06/07/18 03:59 06/04/18 10:31 Hydromorphone HCl (Dilaudid) 2 mg Q3H PRN IVP Severe Pain (Pain Scale 7-10) 05/30/18 21:30 06/06/18 21:29 06/03/18 16:39 Isoniazid (Inh) 300 mg DAILY ORAL 05/27/18 09:00 06/25/18 13:59 06/04/18 09:31 Levofloxacin 100 ml @ 100 mls/hr Q24H IVPB 06/01/18 09:00 06/08/18 08:59 06/04/18 09:27 Lorazepam (Ativan 2mg/ml 1ml) 1 mg Q4H PRN IV For Anxiety 05/31/18 17:15 06/07/18 17:14 06/03/18 17:37 Magnesium Hydroxide (Mom) 30 ml BIDPRN PRN ORAL Constipation 05/26/18 18:30 06/22/18 18:15 Metoprolol Tartrate (Lopressor) 50 mg Q12HR ORAL 05/26/18 21:00 06/11/18 20:59 06/03/18 21:27 Metronidazole 100 ml @ 100 mls/hr Q8HR IVPB 05/31/18 20:00 06/07/18 19:59 06/04/18 05:07 Ondansetron HCl (Zofran) 4 mg Q6H PRN IVP Nausea & Vomiting 05/26/18 18:30 06/22/18 18:15 Polyethylene Glycol (Miralax) 17 gm DAILY ORAL 05/27/18 09:00 06/16/18 10:59 06/03/18 09:13 Pregabalin (Lyrica) 25 mg THREE TIMES A DAY ORAL 06/03/18 18:00 07/03/18 17:59 06/04/18 09:30 Pyrazinamide (Pza) 1,500 mg DAILY ORAL 05/27/18 09:00 06/25/18 13:59 06/04/18 09:31 Pyridoxine HCl (Vitamin B6) 50 mg DAILY ORAL 05/27/18 09:00 06/25/18 13:59 06/04/18 09:29 Quetiapine Fumarate (SEROquel) 100 mg BEDTIME ORAL 05/26/18 21:00 06/11/18 20:59 06/03/18 21:27 Sennosides (Senokot) 8.6 mg BIDPRN PRN ORAL Constipation 05/26/18 18:30 06/22/18 18:15 Sodium Hypochlorite (Dakin's Quarter Strength) 1 applic DAILY TOPIC 05/27/18 09:00 06/25/18 16:00 06/04/18 09:26 Allergies: Coded Allergies: MILK (Verified Allergy, Unknown, 02/02/18) Subjective awake, alert, responsive, C/O less stumps pain Objective Last Vital Signs Date Time Temp Pulse Resp B/P (MAP) Pulse Ox O2 Delivery O2 Flow Rate FiO2 06/04/18 11:01 97.0 06/04/18 09:58 64 18 Nasal Cannula 2.0 28 06/04/18 09:57 98 06/04/18 09:00 97/78 (84) Intake and Output 06/03/18 06/04/18 18:59 06:59 Intake Total 800 ml Balance 800 ml Intake Oral 600 ml IV Total 200 ml # Voids 3 # Bowel Movements 1 Objective General: No acute distress, awake and alert HEENT: NCAT, sclera anicteric, PERRL, EOMI. Neck: Supple, no significant jugular venous distention, Lungs: Fair inspiratory effort, Decrease air on bases, no Wheeze or Rales. Heart: Irregular rate and rhythm, normal S1/S2, no murmurs Abdomen: soft, nontender, nondistended. Normoactive bowel sounds. / Rectal: Refused and deferred. Extremities: No Cyanosis , clubbing or edema. Bilateral stumps intact with chaitanya, LUE piccline. 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 12.418 Small lung cavitary lesion/ likely due to PNA cavitary/aspiration PNA acute encephalopathy, likely secondary to sepsis atrial fibrillation with rapid ventricular response borderline hypotension- resolved acute DVT R SFV hepatitis C hypertension coronary artery disease history of CVA dementia bipolar disorder protein calorie malnutrition anemia Plan: Abx: Levaquin and Flagyl F/U with ID recommendations wound care Lovenox injection. On Lyrica 25 mg TID Pedro Caban MD Jun 04, 2018 12:15
[2018-06-04 16:00] VITALS: BP 134/74
--- NOTE | 2018-06-04 17:23 | Cardiac Electrophysiology PN ---
Assessment/Plan Assessment/Plan 1. Paroxysmal Atrial fibrillation and flutter with RVR. In SR Continue digoxin 0.125 daily, metoprolol 50 bid and Amiodarone 200 daily. On Lovenox 70 b.i.d. 2. Anxiety got Ativan 3. Fever, cough and sepsis, on antibiotic and in respiratory isolation. 4. History of dementia and severe psychosis, on Seroquel. 5. Severe bilateral leg ulcers and sacral decubitus. S/P Bilateral AKA by Dr. Enrrique GERMAN RN Subjective Subjective Still in Resp isolation despite 3 negative AFBs awaiting Department of Health awaiting PCR. No new events. No CP Objective Last 24 Hour Vital Signs Date Time Temp Pulse Resp B/P (MAP) Pulse Ox O2 Delivery O2 Flow Rate FiO2 06/04/18 16:00 97.5 63 18 134/74 (94) 100 06/04/18 14:05 97.0 06/04/18 12:00 98.2 69 20 146/85 (105) 100 06/04/18 11:01 97.0 06/04/18 09:58 64 18 Nasal Cannula 2.0 28 06/04/18 09:57 Nasal Cannula 2.0 28 06/04/18 09:57 98 Nasal Cannula 2.0 28 06/04/18 09:29 105 06/04/18 09:00 98.2 107 18 97/78 (84) 100 06/04/18 09:00 Nasal Cannula 2.0 Nasal Cannula 2.0 06/04/18 04:00 97.0 51 17 128/67 (87) 100 06/03/18 23:50 98.1 57 18 134/67 (89) 100 06/03/18 21:46 58 18 Nasal Cannula 2.0 28 06/03/18 21:46 99 Nasal Cannula 2.0 28 06/03/18 21:46 Nasal Cannula 2.0 28 06/03/18 21:27 53 137/75 06/03/18 21:00 Nasal Cannula 2.0 Nasal Cannula 2.0 06/03/18 20:00 97.9 53 17 137/75 (95) 99 Intake and Output 06/03/18 06/04/18 18:59 06:59 Intake Total 800 ml Balance 800 ml Intake Oral 600 ml IV Total 200 ml # Voids 3 # Bowel Movements 1 Objective HEAD AND NECK: Mild JVD. LUNGS: Coarse rhonchi. CARDIOVASCULAR: Irregular S1 and S2 with no murmur. ABDOMEN: Soft. EXTREMITIES: S/P Bilateral Amandeep Mart MD Jun 04, 2018 17:23
[2018-06-04 20:00] VITALS: BP 151/81
[2018-06-04] MEDS: Dyna-Hex 2% Top Sol 2oz TOPIC SCH (21:17)
[2018-06-05] VITALS: BP 147/70
[2018-06-05 04:00] VITALS: BP 133/85
[2018-06-05] MEDS: HYDROmorphone 1mg/ml Carpuject IVP PRN ×2 (05:38→10:24)
[2018-06-05 08:00] VITALS: BP 149/75
[2018-06-05] MEDS: Miralax 17gm pkt ORAL SCH (09:00)
[2018-06-05] MEDS: Docusate 100mg cap ORAL SCH ×2 (09:00→16:53)
--- NOTE | 2018-06-05 10:10 | Infectious Diseases Prog Note ---
Assessment/Plan Assessment/Plan Assessment/Plan 68 yo male who was transferred from [place] where he initially presented for AMS from [facility]. Low grade fever, SP Leukocytosis ,recurrent- SP Small lung cavitary lesion/ PNA- suspect likely to aspiration; lower suspicion for TB and/or fungal etiologies -CT c/a/p: 10 mm opacity in the peripheral anterolateral right upper lobe with small central cavitation. Patchy groundglass opacity in the posterior right upper lobe. Suspect that these represent inflammatory/infectious lesions, but neoplastic etiology of either is certainly possible. Large left and moderate right pleural effusions. Resultant compressive atelectasis of portions of the lower lobes. Equivocal distal esophageal wall thickening, could indicate esophagitis if real -sp cx usual resp noah -AFB sp cx; smear neg x4; MTB PCR neg -TB spot + -Neg Crag serum, legionella ag urine Chronic Hep C- VL 3.2 million copies -CT abd- liver unremarkable -Hep Bc ab+, Not immune for Hep A Sepsis 2/2 to bacteremia (at OSH) Likely source is skin ulcer Blood Cx 05/12/18 at [place] [facility] -Bcx 05/12 and (here) NTD 2d echo: no vegetations 05/15 CXR: Right midlung nodule. Absence of this finding on previous study makes this more likely to be a focus of inflammation, but rapidly growing neoplasm not excludable. Left basilar hazy opacity. Most likely a moderate to large pleural effusion.Component of infiltrate or atelectasis is also possible 05/12 CXR: Asymmetric ill-defined confluent groundglass opacity within the left mid/inferior lung, of uncertain etiology. B/l LE necrotic ulcer and toes- acute on chronci, ischemic w/ likely superinfection- likely non-salvageable per surgery -05/23 SP B/l BKA Afib w/ RVR Encephalopathy , improving -CT head w/wo: No acute intracranial abnormalities. Mild atrophy of the brain. Nonspecific white matter hypoattenuation probably due to chronic small vessel disease. Likely secondary to sepsis Cerebrovascular accident. Hypertension. Sacral decubitus ulcers. Bipolar disorder. Coronary artery disease. Plan - Continue Levaquin #10(abx d#23) and flagyl #17 for cavitary/aspiration PNA -low threshold to switch Cefepime and Flagyl to Meropenem if decompensates -05/26 SP IV Vancomycin #15, Cefepime #15 -Per Dept of Public health and to aid on discharge planning back to SNF, will cont empiric TB regimen with DONN (started on 05/26- ); Levaquin instead of Rifampin or Rifabutin given multiple drug interactions of Rifampin (w/ Amiodarone, quetiapine, metoprolol) -Dept of wants to treat empirically until final AFB culture results -monitor LFTs -EGK monitor QTc -Airborne isolation -f/u AFB sp cx,MTB PCR x1 -f/u cocci ab, fungal sp cx, - f/u Blood Cx - Wound care - Monitor CBC and Temps -f/u sp cx, u/a w/ reflex -Cdiff if diarrhea -Sx f/u -Discharge approval per Dept of Health -CXR am -CT chest 06/08; if plan for discharge prior this date, can then do CT earlier Thank you for this consult. We will continue to follow the patient during this hospitalization. Discussed withRN Subjective Allergies: Coded Allergies: MILK (Verified Allergy, Unknown, 02/02/18) Subjective afebrile leukocytosis more alert at 2l NC Objective Vital Signs Last 24 Hour Vital Signs Date Time Temp Pulse Resp B/P (MAP) Pulse Ox O2 Delivery O2 Flow Rate FiO2 06/05/18 08:00 98.1 64 20 149/75 (99) 100 06/05/18 04:00 97.3 58 19 133/85 (101) 100 06/05/18 00:00 98.4 99 18 147/70 (95) 98 06/04/18 21:17 80 151/81 06/04/18 21:00 Nasal Cannula 2.0 Nasal Cannula 2.0 06/04/18 20:43 Nasal Cannula 2.0 28 06/04/18 20:43 66 18 Nasal Cannula 2.0 28 06/04/18 20:43 98 Nasal Cannula 2.0 28 06/04/18 20:00 99.7 80 19 151/81 (104) 99 06/04/18 17:46 97.5 06/04/18 16:00 97.5 63 18 134/74 (94) 100 06/04/18 12:00 98.2 69 20 146/85 (105) 100 06/04/18 11:01 97.0 Height (Feet): 6 Height (Inches): 5.00 Weight (Pounds): 170 Objective Gen: NAD. Mumbling HEENT: NCAT, MMM, EOMI, No Oral lesion, no scleral icterus NECK: full range of motion, supple, no meningismus, No LAD, No JVD LUNGS: CTAB, No W/C, No Accessory muscle use CARDS: RRR, S1, S2, No M/R/G ABD: Soft, NT, ND, No R/G, + BS, No HSM, No Masses : Deferred Ext: C/C/E, Pulses 2+ B/L (DP, Rad) NEURO: A/O x 0, Strength and Sensation Grossly intact PSYCH: mood/affect normal SKIN: Left foot wound. No purulent drainage, Feet now bandaged Current Medications Medications (Trade) Dose Ordered Sig/Erlin Route PRN Reason Start Time Stop Time Status Last Admin Dose Admin Acetaminophen (Tylenol) 650 mg Q4H PRN ORAL TEMP>100.5 05/31/18 08:45 06/11/18 16:44 Al Hydroxide/Mg Hydroxide (Mylanta) 15 ml Q6H PRN ORAL DYSPEPSIA 05/26/18 18:30 06/22/18 18:15 Albuterol/ Ipratropium (Albuterol/ Ipratropium) 3 ml Q4H PRN HHN Shortness of Breath 06/03/18 15:45 06/08/18 15:44 06/03/18 15:56 Amiodarone HCl (Cordarone) 200 mg DAILY ORAL 05/27/18 09:00 06/17/18 08:59 06/04/18 09:29 Chlorhexidine Gluconate (Yari-Hex 2%) 1 applic DAILY@1999 TOPIC 05/26/18 20:00 06/23/18 19:59 06/04/18 21:17 Digoxin (Lanoxin) 0.125 mg DAILY ORAL 05/27/18 09:00 06/12/18 08:59 06/04/18 09:29 Diphenhydramine HCl (Benadryl) 25 mg Q8H PRN ORAL Itching/Pruritis 05/26/18 16:46 06/22/18 16:45 Docusate Sodium (Colace) 100 mg TWICE A DAY ORAL 05/26/18 18:00 1/3/19 17:59 06/03/18 17:37 Enoxaparin Sodium (Lovenox) 80 mg Q12HR SUBQ 05/30/18 21:00 06/29/18 20:59 06/04/18 21:19 Ethambutol HCl (Myambutol) 1,200 mg DAILY ORAL 05/27/18 09:00 06/25/18 13:59 06/04/18 09:31 Gabapentin (Neurontin) 100 mg THREE TIMES A DAY ORAL 05/26/18 18:00 06/11/18 17:59 06/04/18 17:16 Hydromorphone HCl (Dilaudid) 0.5 mg Q3HR PRN IVP FOR MODERATE PAIN (4-6) 05/31/18 04:00 06/07/18 03:59 Hydromorphone HCl (Dilaudid) 1 mg Q3H PRN IVP Moderate Pain (Pain Scale 4-6) 05/31/18 04:00 06/07/18 03:59 06/05/18 05:38 Hydromorphone HCl (Dilaudid) 2 mg Q3H PRN IVP Severe Pain (Pain Scale 7-10) 05/30/18 21:30 06/06/18 21:29 06/03/18 16:39 Isoniazid (Inh) 300 mg DAILY ORAL 05/27/18 09:00 06/25/18 13:59 06/04/18 09:31 Levofloxacin 100 ml @ 100 mls/hr Q24H IVPB 06/01/18 09:00 06/08/18 08:59 06/04/18 09:27 Lorazepam (Ativan 2mg/ml 1ml) 1 mg Q4H PRN IV For Anxiety 05/31/18 17:15 06/07/18 17:14 06/03/18 17:37 Magnesium Hydroxide (Mom) 30 ml BIDPRN PRN ORAL Constipation 05/26/18 18:30 06/22/18 18:15 Metoprolol Tartrate (Lopressor) 50 mg Q12HR ORAL 05/26/18 21:00 06/11/18 20:59 06/04/18 21:17 Metronidazole 100 ml @ 100 mls/hr Q8HR IVPB 05/31/18 20:00 06/07/18 19:59 06/05/18 05:38 Ondansetron HCl (Zofran) 4 mg Q6H PRN IVP Nausea & Vomiting 05/26/18 18:30 06/22/18 18:15 Polyethylene Glycol (Miralax) 17 gm DAILY ORAL 05/27/18 09:00 06/16/18 10:59 06/03/18 09:13 Pregabalin (Lyrica) 25 mg THREE TIMES A DAY ORAL 06/03/18 18:00 07/03/18 17:59 06/04/18 17:16 Pyrazinamide (Pza) 1,500 mg DAILY ORAL 05/27/18 09:00 06/25/18 13:59 06/04/18 09:31 Pyridoxine HCl (Vitamin B6) 50 mg DAILY ORAL 05/27/18 09:00 06/25/18 13:59 06/04/18 09:29 Quetiapine Fumarate (SEROquel) 100 mg BEDTIME ORAL 05/26/18 21:00 06/11/18 20:59 06/04/18 21:17 Sennosides (Senokot) 8.6 mg BIDPRN PRN ORAL Constipation 05/26/18 18:30 06/22/18 18:15 Sodium Hypochlorite (Dakin's Quarter Strength) 1 applic DAILY TOPIC 05/27/18 09:00 06/25/18 16:00 06/04/18 09:26 Alma Elkins M.D. Jun 05, 2018 10:10
[2018-06-05] MEDS: Dakin's 0.125% Soln (Quarter Strength) 16oz TOPIC SCH (10:23)
[2018-06-05] MEDS: Pyridoxine 50mg tab ORAL SCH (10:25)
[2018-06-05] MEDS: Digoxin 0.125mg tab ORAL SCH (10:26)
[2018-06-05] MEDS: Lyrica 25mg cap ORAL SCH ×3 (10:26→16:53)
[2018-06-05] MEDS: Isoniazid 300mg tab ORAL SCH (10:27)
[2018-06-05] MEDS: Metoprolol Tartrate 50mg tab ORAL SCH ×2 (10:27→21:35)
[2018-06-05] MEDS: Amiodarone 200mg tab ORAL SCH (10:27)
[2018-06-05] MEDS: Enoxaparin 80mg Inj SUBQ SCH (10:35)
--- NOTE | 2018-06-05 11:38 | Diagnostic Imaging Report ---
Indication: Shortness of breath, cough Technique: One view of the chest Comparison: : 05/09/2018 Findings: Pleural and parenchymal opacities at the right lung base have resolved. Left-sided pleural effusion persists, probably unchanged. Mild interstitial congestion persists, perhaps minimally improved. Left arm PICC remains. Impression: Improved right-sided pleural effusion and basilar parenchymal opacities, over 6 days. Persistent left-sided pleural effusion. Stable or slightly improved interstitial edema
[2018-06-05 12:00] VITALS: BP 141/84
--- NOTE | 2018-06-05 12:58 | General Progress Note ---
Progress Note Progress Note doing well. no acute events. staple lines on both AKA look great. healing well. clean, dry, intact. still need to care for decubitus ulcers. may consider debridement soon now that healing from bilateral AKA okay to d/c from surgical standpoint when ready Goyo Osuna Jun 05, 2018 12:58
--- NOTE | 2018-06-05 14:06 | Cardiac Electrophysiology PN ---
Assessment/Plan Assessment/Plan 1. Paroxysmal Atrial fibrillation/flutter with RVR. Converted to SR Continue digoxin 0.125 daily, metoprolol 50 bid ,Amiodarone 200 daily. Change Lovenox 70 b.i.d. to Eliquis 5 bid 2. Anxiety got Ativan 3. Fever, cough and sepsis, on antibiotic and in respiratory isolation. 4. History of dementia and severe psychosis, on Seroquel. 5. Severe bilateral leg ulcers and sacral decubitus. S/P Bilateral AKA by Dr. Enrrique GERMAN RN Subjective Subjective Still in Resp isolation awaiting Department of Health clearance pending PCR. No new events. Objective Last 24 Hour Vital Signs Date Time Temp Pulse Resp B/P (MAP) Pulse Ox O2 Delivery O2 Flow Rate FiO2 06/05/18 10:54 98.1 06/05/18 10:54 98.1 06/05/18 10:27 64 149/75 06/05/18 10:26 64 06/05/18 09:00 Nasal Cannula 2.0 Nasal Cannula 2.0 06/05/18 08:00 98.1 64 20 149/75 (99) 100 06/05/18 04:00 97.3 58 19 133/85 (101) 100 06/05/18 00:00 98.4 99 18 147/70 (95) 98 06/04/18 21:17 80 151/81 06/04/18 21:00 Nasal Cannula 2.0 Nasal Cannula 2.0 06/04/18 20:43 Nasal Cannula 2.0 28 06/04/18 20:43 66 18 Nasal Cannula 2.0 28 06/04/18 20:43 98 Nasal Cannula 2.0 28 06/04/18 20:00 99.7 80 19 151/81 (104) 99 06/04/18 16:00 97.5 63 18 134/74 (94) 100 Intake and Output 06/04/18 06/05/18 18:59 06:59 Intake Total 920 ml 680 ml Output Total 1400 ml Balance 920 ml -720 ml Intake Oral 720 ml 480 ml IV Total 200 ml 200 ml Output Urine Total 1400 ml # Voids 3 # Bowel Movements 1 1 Objective HEAD AND NECK: Mild JVD. LUNGS: Coarse rhonchi. CARDIOVASCULAR: Irregular S1 and S2 with no murmur. ABDOMEN: Soft. EXTREMITIES: S/P Bilateral AKA Toluie,Amandeep MD Jun 05, 2018 14:06
--- NOTE | 2018-06-05 15:46 | Pulmonology Progress Note ---
Assessment/Plan Problems: (1) Sepsis (2) Atrial fibrillation (3) Decubitus skin ulcer (4) Bipolar disorder (5) CAD (coronary artery disease) (6) HTN (hypertension) (7) CVA (cerebral vascular accident) Assessment/Plan continue abx as recommended by ID check AFB no new complains wound care f/u cultures monitor BP watch heart rate dvt prophylaxis symptomatic treatment Subjective ROS Limited/Unobtainable: No Constitutional: Reports: no symptoms HEENT: Repors: no symptoms Respiratory: Reports: no symptoms Allergies: Coded Allergies: MILK (Verified Allergy, Unknown, 02/02/18) Objective Last 24 Hour Vital Signs Date Time Temp Pulse Resp B/P (MAP) Pulse Ox O2 Delivery O2 Flow Rate FiO2 06/05/18 10:54 98.1 06/05/18 10:54 98.1 06/05/18 10:27 64 149/75 06/05/18 10:26 64 06/05/18 09:00 Nasal Cannula 2.0 Nasal Cannula 2.0 06/05/18 08:00 98.1 64 20 149/75 (99) 100 06/05/18 04:00 97.3 58 19 133/85 (101) 100 06/05/18 00:00 98.4 99 18 147/70 (95) 98 06/04/18 21:17 80 151/81 06/04/18 21:00 Nasal Cannula 2.0 Nasal Cannula 2.0 06/04/18 20:43 Nasal Cannula 2.0 28 06/04/18 20:43 66 18 Nasal Cannula 2.0 28 06/04/18 20:43 98 Nasal Cannula 2.0 28 06/04/18 20:00 99.7 80 19 151/81 (104) 99 06/04/18 16:00 97.5 63 18 134/74 (94) 100 Intake and Output 06/04/18 06/05/18 18:59 06:59 Intake Total 920 ml 680 ml Output Total 1400 ml Balance 920 ml -720 ml Intake Oral 720 ml 480 ml IV Total 200 ml 200 ml Output Urine Total 1400 ml # Voids 3 # Bowel Movements 1 1 Objective General Appearance: WD/WN HEENT: normocephalic Respiratory/Chest: chest wall non-tender, lungs clear, normal breath sounds Cardiovascular: normal peripheral pulses, normal rate Abdomen: normal bowel sounds, soft, non tender Genitourinary: normal external genitalia Extremities: s/p amputation Skin: no rash Current Medications Medications (Trade) Dose Ordered Sig/Erlin Route PRN Reason Start Time Stop Time Status Last Admin Dose Admin Acetaminophen (Tylenol) 650 mg Q4H PRN ORAL TEMP>100.5 05/31/18 08:45 06/11/18 16:44 Al Hydroxide/Mg Hydroxide (Mylanta) 15 ml Q6H PRN ORAL DYSPEPSIA 05/26/18 18:30 06/22/18 18:15 Albuterol/ Ipratropium (Albuterol/ Ipratropium) 3 ml Q4H PRN HHN Shortness of Breath 06/03/18 15:45 06/08/18 15:44 06/03/18 15:56 Amiodarone HCl (Cordarone) 200 mg DAILY ORAL 05/27/18 09:00 06/17/18 08:59 06/05/18 10:27 Apixaban (Eliquis) 5 mg Q12HR ORAL 06/05/18 21:00 07/05/18 20:59 Chlorhexidine Gluconate (Yari-Hex 2%) 1 applic DAILY@2000 TOPIC 05/26/18 20:00 06/23/18 19:59 06/04/18 21:17 Digoxin (Lanoxin) 0.125 mg DAILY ORAL 05/27/18 09:00 06/12/18 08:59 06/05/18 10:26 Diphenhydramine HCl (Benadryl) 25 mg Q8H PRN ORAL Itching/Pruritis 05/26/18 16:46 06/22/18 16:45 Docusate Sodium (Colace) 100 mg TWICE A DAY ORAL 05/26/18 18:00 06/22/18 17:59 06/03/18 17:37 Ethambutol HCl (Myambutol) 1,200 mg DAILY ORAL 05/27/18 09:00 06/25/18 13:59 06/05/18 10:25 Gabapentin (Neurontin) 100 mg THREE TIMES A DAY ORAL 05/26/18 18:00 06/11/18 17:59 06/05/18 14:30 Hydromorphone HCl (Dilaudid) 0.5 mg Q3HR PRN IVP FOR MODERATE PAIN (4-6) 05/31/18 04:00 06/07/18 03:59 Hydromorphone HCl (Dilaudid) 1 mg Q3H PRN IVP Moderate Pain (Pain Scale 4-6) 05/31/18 04:00 06/07/18 03:59 06/05/18 10:24 Hydromorphone HCl (Dilaudid) 2 mg Q3H PRN IVP Severe Pain (Pain Scale 7-10) 05/30/18 21:30 06/06/18 21:29 06/05/18 14:41 Isoniazid (Inh) 300 mg DAILY ORAL 05/27/18 09:00 06/25/18 13:59 06/05/18 10:27 Levofloxacin 100 ml @ 100 mls/hr Q24H IVPB 06/01/18 09:00 06/08/18 08:59 06/05/18 10:38 Lorazepam (Ativan 2mg/ml 1ml) 1 mg Q4H PRN IV For Anxiety 05/31/18 17:15 06/07/18 17:14 06/03/18 17:37 Magnesium Hydroxide (Mom) 30 ml BIDPRN PRN ORAL Constipation 05/26/18 18:30 06/22/18 18:15 Metoprolol Tartrate (Lopressor) 50 mg Q12HR ORAL 05/26/18 21:00 06/11/18 20:59 06/05/18 10:27 Metronidazole 100 ml @ 100 mls/hr Q8HR IVPB 05/31/18 20:00 06/07/18 19:59 06/05/18 14:30 Ondansetron HCl (Zofran) 4 mg Q6H PRN IVP Nausea & Vomiting 05/26/18 18:30 06/22/18 18:15 Polyethylene Glycol (Miralax) 17 gm DAILY ORAL 05/27/18 09:00 06/16/18 10:59 06/03/18 09:13 Pregabalin (Lyrica) 25 mg THREE TIMES A DAY ORAL 06/03/18 18:00 07/03/18 17:59 06/05/18 14:40 Pyrazinamide (Pza) 1,500 mg DAILY ORAL 05/27/18 09:00 06/25/18 13:59 06/05/18 10:26 Pyridoxine HCl (Vitamin B6) 50 mg DAILY ORAL 05/27/18 09:00 06/25/18 13:59 06/05/18 10:25 Quetiapine Fumarate (SEROquel) 100 mg BEDTIME ORAL 05/26/18 21:00 06/11/18 20:59 06/04/18 21:17 Sennosides (Senokot) 8.6 mg BIDPRN PRN ORAL Constipation 05/26/18 18:30 06/22/18 18:15 Sodium Hypochlorite (Dakin's Quarter Strength) 1 applic DAILY TOPIC 05/27/18 09:00 06/25/18 16:00 06/05/18 10:23 Minerva Montesinos MD Jun 05, 2018 15:46
[2018-06-05 16:00] VITALS: BP 146/90
--- NOTE | 2018-06-05 19:44 | Internal Med Progress Note ---
Subjective Date of Service: Jun 05, 2018 Physician Name JacksonDaniel Attending Physician Pedro Caban MD Current Medications Medications (Trade) Dose Ordered Sig/Erlin Route PRN Reason Start Time Stop Time Status Last Admin Dose Admin Acetaminophen (Tylenol) 650 mg Q4H PRN ORAL TEMP>100.5 05/31/18 08:45 06/11/18 16:44 Al Hydroxide/Mg Hydroxide (Mylanta) 15 ml Q6H PRN ORAL DYSPEPSIA 05/26/18 18:30 06/22/18 18:15 Albuterol/ Ipratropium (Albuterol/ Ipratropium) 3 ml Q4H PRN HHN Shortness of Breath 06/03/18 15:45 06/08/18 15:44 06/03/18 15:56 Amiodarone HCl (Cordarone) 200 mg DAILY ORAL 05/27/18 09:00 06/17/18 08:59 06/05/18 10:27 Apixaban (Eliquis) 5 mg Q12HR ORAL 06/05/18 21:00 07/05/18 20:59 Chlorhexidine Gluconate (Yari-Hex 2%) 1 applic DAILY@2000 TOPIC 05/26/18 20:00 06/23/18 19:59 06/04/18 21:17 Digoxin (Lanoxin) 0.125 mg DAILY ORAL 05/27/18 09:00 06/12/18 08:59 06/05/18 10:26 Diphenhydramine HCl (Benadryl) 25 mg Q8H PRN ORAL Itching/Pruritis 05/26/18 16:46 06/22/18 16:45 06/05/18 16:53 Docusate Sodium (Colace) 100 mg TWICE A DAY ORAL 05/26/18 18:00 06/22/18 17:59 06/03/18 17:37 Ethambutol HCl (Myambutol) 1,200 mg DAILY ORAL 05/27/18 09:00 06/25/18 13:59 06/05/18 10:25 Gabapentin (Neurontin) 100 mg THREE TIMES A DAY ORAL 05/26/18 18:00 06/11/18 17:59 06/05/18 16:53 Hydromorphone HCl (Dilaudid) 0.5 mg Q3HR PRN IVP FOR MODERATE PAIN (4-6) 05/31/18 04:00 06/07/18 03:59 Hydromorphone HCl (Dilaudid) 1 mg Q3H PRN IVP Moderate Pain (Pain Scale 4-6) 05/31/18 04:00 06/07/18 03:59 06/05/18 10:24 Hydromorphone HCl (Dilaudid) 2 mg Q3H PRN IVP Severe Pain (Pain Scale 7-10) 05/30/18 21:30 06/06/18 21:29 06/05/18 17:53 Isoniazid (Inh) 300 mg DAILY ORAL 05/27/18 09:00 06/25/18 13:59 06/05/18 10:27 Levofloxacin 100 ml @ 100 mls/hr Q24H IVPB 06/01/18 09:00 06/08/18 08:59 06/05/18 10:38 Lorazepam (Ativan 2mg/ml 1ml) 1 mg Q4H PRN IV For Anxiety 05/31/18 17:15 06/07/18 17:14 06/03/18 17:37 Magnesium Hydroxide (Mom) 30 ml BIDPRN PRN ORAL Constipation 05/26/18 18:30 06/22/18 18:15 Metoprolol Tartrate (Lopressor) 50 mg Q12HR ORAL 05/26/18 21:00 06/11/18 20:59 06/05/18 10:27 Metronidazole 100 ml @ 100 mls/hr Q8HR IVPB 05/31/18 20:00 06/07/18 19:59 06/05/18 14:30 Ondansetron HCl (Zofran) 4 mg Q6H PRN IVP Nausea & Vomiting 05/26/18 18:30 06/22/18 18:15 Polyethylene Glycol (Miralax) 17 gm DAILY ORAL 05/27/18 09:00 06/16/18 10:59 06/03/18 09:13 Pregabalin (Lyrica) 25 mg THREE TIMES A DAY ORAL 06/03/18 18:00 07/03/18 17:59 06/05/18 16:53 Pyrazinamide (Pza) 1,500 mg DAILY ORAL 05/27/18 09:00 06/25/18 13:59 06/05/18 10:26 Pyridoxine HCl (Vitamin B6) 50 mg DAILY ORAL 05/27/18 09:00 06/25/18 13:59 06/05/18 10:25 Quetiapine Fumarate (SEROquel) 100 mg BEDTIME ORAL 05/26/18 21:00 06/11/18 20:59 06/04/18 21:17 Sennosides (Senokot) 8.6 mg BIDPRN PRN ORAL Constipation 05/26/18 18:30 06/22/18 18:15 Sodium Hypochlorite (Dakin's Quarter Strength) 1 applic DAILY TOPIC 05/27/18 09:00 06/25/18 16:00 06/05/18 10:23 Allergies: Coded Allergies: MILK (Verified Allergy, Unknown, 02/02/18) ROS Limited/Unobtainable: No Constitutional: Reports: no symptoms HEENT: Reports: no symptoms Cardiovascular: Reports: no symptoms Respiratory: Reports: no symptoms Gastrointestinal/Abdominal: Reports: no symptoms Genitourinary: Reports: no symptoms 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: Reports: no symptoms Subjective 68 YO A M admitted with altered mental status. Now sepsis and atrial fibrillation with rapid rate. Cover for Int Med-Dr Caban. ICU. 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 Objective Last Vital Signs Date Time Temp Pulse Resp B/P (MAP) Pulse Ox O2 Delivery O2 Flow Rate FiO2 06/05/18 18:23 98.1 06/05/18 16:00 57 20 146/90 (108) 98 06/05/18 09:00 Nasal Cannula 2.0 Nasal Cannula 2.0 06/04/18 20:43 28 Intake and Output 06/04/1818 18:59 06:59 Intake Total 920 ml 680 ml Output Total 1400 ml Balance 920 ml -720 ml Intake Oral 720 ml 480 ml IV Total 200 ml 200 ml Output Urine Total 1400 ml # Voids 3 # Bowel Movements 1 1 Objective General Appearance: alert, thin, agitated EENT: PERRL/EOMI, normal ENT inspection Neck: non-tender, normal alignment, supple, normal inspection Cardiovascular: normal peripheral pulses, normal rate, no gallop/murmur, no JVD , irregularly irregular Respiratory/Chest: chest wall non-tender, lungs clear, normal breath sounds, no respiratory distress, no accessory muscle use Abdomen: normal bowel sounds, non tender, soft, no organomegaly, no mass Extremities: normal range of motion, non-tender Neurologic: mold burner II-XII grossly 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 (8) Sepsis Assessment & Plan: Continue cefepime and vanco per ID (9) UTI (urinary tract infection) Assessment & Plan: Mixed culture-continue vanco and cefepime per ID (10) Leukocytosis (11) Deep venous thrombosis of right femoral vein Assessment & Plan: Cont Eliquis (12) Gangrene Assessment & Plan: S/P above the knee amputation Bilat lower ext 05/23/18 (13) Pneumonia Assessment & Plan: Cavitary lesion. See ID note Daniel Jackson MD Jun 05, 2018 19:44
[2018-06-05 20:00] VITALS: BP 137/60
[2018-06-05] MEDS: Eliquis 2.5mg tablet ORAL SCH (21:35)
[2018-06-05] MEDS: Dyna-Hex 2% Top Sol 2oz TOPIC SCH (21:37)
[2018-06-06] VITALS: BP 141/79
[2018-06-06] MEDS: Hydromorphone 0.5mg/0.5ml inj IVP PRN (02:31)
[2018-06-06 07:12] LABS: BASOPHILS % (AUTO) 0.9 % (0.0-2.0); EOSINOPHILS % (AUTO) 0.2 % (0.0-3.0); HEMATOCRIT 25.9 % (42.0-52.0); HEMOGLOBIN 8.2 G/DL (14.2-18.0); LYMPHOCYTES % (AUTO) 16.2 % (20.0-45.0); MEAN CORPUSCULAR VOLUME 90 FL (80-99); MONOCYTES % (AUTO) 7.3 % (1.0-10.0); NEUTROPHILS % (AUTO) 75.4 % (45.0-75.0); PLATELET COUNT 273 K/UL (150-450); RED BLOOD COUNT 2.86 M/UL (4.70-6.10); RED CELL DISTRIBUTION WIDTH 13.6 % (11.6-14.8); WHITE BLOOD COUNT 10.4 K/UL (4.8-10.8)
[2018-06-06 07:48] LABS: ALANINE AMINOTRANSFERASE 9 U/L (12-78); ALBUMIN 1.4 G/DL (3.4-5.0); ALBUMIN/GLOBULIN RATIO 0.3 (1.0-2.7); ALKALINE PHOSPHATASE 102 U/L (46-116); ANION GAP 3 mmol/L (5-15); ASPARTATE AMINO TRANSFERASE 16 U/L (15-37); BILIRUBIN,TOTAL 0.3 MG/DL (0.2-1.0); BLOOD UREA NITROGEN 9 mg/dL (7-18); CALCIUM 7.7 MG/DL (8.5-10.1); CARBON DIOXIDE 32 MMOL/L (21-32); CHLORIDE 106 MMOL/L (98-107); CREATININE 0.6 MG/DL (0.55-1.30); POTASSIUM 3.1 MMOL/L (3.5-5.1); SODIUM 141 MMOL/L (136-145)
[2018-06-06 08:00] VITALS: BP 143/80
[2018-06-06] MEDS: Metoprolol Tartrate 50mg tab ORAL SCH ×2 (09:00→21:45)
[2018-06-06] MEDS: Dakin's 0.125% Soln (Quarter Strength) 16oz TOPIC SCH (09:00)
--- NOTE | 2018-06-06 10:04 | Infectious Diseases Prog Note ---
Assessment/Plan Assessment/Plan Assessment/Plan 68 yo male who was transferred from [place] where he initially presented for AMS from [facility]. Low grade fever, SP Leukocytosis ,recurrent- SP Small lung cavitary lesion/ PNA- suspect likely to aspiration; lower suspicion for TB and/or fungal etiologies -06/05 CXR: Improved right-sided pleural effusion and basilar parenchymal opacities, over 6 days. Persistent left-sided pleural effusion. -CT c/a/p: 10 mm opacity in the peripheral anterolateral right upper lobe with small central cavitation. Patchy groundglass opacity in the posterior right upper lobe. Suspect that these represent inflammatory/infectious lesions, but neoplastic etiology of either is certainly possible. Large left and moderate right pleural effusions. Resultant compressive atelectasis of portions of the lower lobes. Equivocal distal esophageal wall thickening, could indicate esophagitis if real -sp cx usual resp noah -AFB sp cx; smear neg x4; MTB PCR neg -TB spot + -Neg Crag serum, legionella ag urine, Blastoa b Chronic Hep C- VL 3.2 million copies -CT abd- liver unremarkable -Hep Bc ab+, Not immune for Hep A Sepsis 2/2 to bacteremia (at OSH) Likely source is skin ulcer Blood Cx 05/12/18 at [place] [facility] -Bcx 05/12 and (here) NTD 2d echo: no vegetations 05/15 CXR: Right midlung nodule. Absence of this finding on previous study makes this more likely to be a focus of inflammation, but rapidly growing neoplasm not excludable. Left basilar hazy opacity. Most likely a moderate to large pleural effusion.Component of infiltrate or atelectasis is also possible 05/12 CXR: Asymmetric ill-defined confluent groundglass opacity within the left mid/inferior lung, of uncertain etiology. B/l LE necrotic ulcer and toes- acute on chronci, ischemic w/ likely superinfection- likely non-salvageable per surgery -05/23 SP B/l BKA Afib w/ RVR Encephalopathy , improving -CT head w/wo: No acute intracranial abnormalities. Mild atrophy of the brain. Nonspecific white matter hypoattenuation probably due to chronic small vessel disease. Likely secondary to sepsis Cerebrovascular accident. Hypertension. Sacral decubitus ulcers. Bipolar disorder. Coronary artery disease. Plan - Continue Levaquin #11(abx d#24) and flagyl #18 for cavitary/aspiration PNA -low threshold to switch Cefepime and Flagyl to Meropenem if decompensates -05/26 SP IV Vancomycin #15, Cefepime #15 -Per Dept of Public health and to aid on discharge planning back to [facility], will cont empiric TB regimen with DONN (started on 05/26- ); Levaquin instead of Rifampin or Rifabutin given multiple drug interactions of Rifampin (w/ Amiodarone, quetiapine, metoprolol) -Dept of wants to treat empirically until final AFB culture results -monitor LFTs -EGK monitor QTc -Airborne isolation -f/u AFB sp cx,MTB PCR x1 -f/u cocci ab, fungal sp cx, - f/u Blood Cx - Wound care - Monitor CBC and Temps -f/u sp cx, u/a w/ reflex -Cdiff if diarrhea -Sx f/u -Discharge approval per Dept of Health -CT chest 06/08; if plan for discharge prior this date, can then do CT earlier Thank you for this consult. We will continue to follow the patient during this hospitalization. Discussed withRN Subjective Allergies: Coded Allergies: MILK (Verified Allergy, Unknown, 02/02/18) Subjective afebrile leukocytosis more alert at 2l NC Objective Vital Signs Last 24 Hour Vital Signs Date Time Temp Pulse Resp B/P (MAP) Pulse Ox O2 Delivery O2 Flow Rate FiO2 06/06/18 00:00 98.1 54 16 141/79 (99) 100 06/05/18 21:35 76 137/60 06/05/18 21:00 Nasal Cannula 2.0 Nasal Cannula 2.0 06/05/18 20:19 97 Nasal Cannula 2.0 28 06/05/18 20:19 61 18 Nasal Cannula 2.0 28 06/05/18 20:19 Nasal Cannula 2.0 28 06/05/18 20:00 97.7 18 137/60 (85) 100 06/05/18 18:23 98.1 06/05/18 17:23 98.1 06/05/18 16:00 97.5 57 20 146/90 (108) 98 06/05/18 12:00 97.7 58 20 141/84 (103) 99 06/05/18 10:54 98.1 06/05/18 10:27 64 149/75 06/05/18 10:26 64 Height (Feet): 6 Height (Inches): 5.00 Weight (Pounds): 169 Objective Gen: NAD. Mumbling HEENT: NCAT, MMM, EOMI, No Oral lesion, no scleral icterus NECK: full range of motion, supple, no meningismus, No LAD, No JVD LUNGS: CTAB, No W/C, No Accessory muscle use CARDS: RRR, S1, S2, No M/R/G ABD: Soft, NT, ND, No R/G, + BS, No HSM, No Masses : Deferred Ext: C/C/E, Pulses 2+ B/L (DP, Rad) NEURO: A/O x 0, Strength and Sensation Grossly intact PSYCH: mood/affect normal SKIN: Left foot wound. No purulent drainage, Feet now bandaged Laboratory Tests Test 06/06/18 05:45 White Blood Count 10.4 K/UL (4.8-10.8) Red Blood Count 2.86 M/UL (4.70-6.10) L Hemoglobin 8.2 G/DL (14.2-18.0) L Hematocrit 25.9 % (42.0-52.0) L Mean Corpuscular Volume 90 FL (80-99) Mean Corpuscular Hemoglobin 28.6 PG (27.0-31.0) Mean Corpuscular Hemoglobin Concent 31.6 G/DL (32.0-36.0) L Red Cell Distribution Width 13.6 % (11.6-14.8) Platelet Count 273 K/UL (150-450) Mean Platelet Volume 4.9 FL (6.5-10.1) L Neutrophils (%) (Auto) 75.4 % (45.0-75.0) H Lymphocytes (%) (Auto) 16.2 % (20.0-45.0) L Monocytes (%) (Auto) 7.3 % (1.0-10.0) Eosinophils (%) (Auto) 0.2 % (0.0-3.0) Basophils (%) (Auto) 0.9 % (0.0-2.0) Sodium Level 141 MMOL/L (136-145) Potassium Level 3.1 MMOL/L (3.5-5.1) L Chloride Level 106 MMOL/L (98-107) Carbon Dioxide Level 32 MMOL/L (21-32) Anion Gap 3 mmol/L (5-15) L Blood Urea Nitrogen 9 mg/dL (7-18) Creatinine 0.6 MG/DL (0.55-1.30) Estimat Glomerular Filtration Rate > 60 mL/min (>60) Glucose Level 88 MG/DL (74-106) Calcium Level 7.7 MG/DL (8.5-10.1) L Total Bilirubin 0.3 MG/DL (0.2-1.0) Aspartate Amino Transf (AST/SGOT) 16 U/L (15-37) Alanine Aminotransferase (ALT/SGPT) 9 U/L (12-78) L Alkaline Phosphatase 102 U/L (46-116) Total Protein 6.0 G/DL (6.4-8.2) L Albumin 1.4 G/DL (3.4-5.0) L Globulin 4.6 g/dL Albumin/Globulin Ratio 0.3 (1.0-2.7) L Current Medications Medications (Trade) Dose Ordered Sig/Erlin Route PRN Reason Start Time Stop Time Status Last Admin Dose Admin Acetaminophen (Tylenol) 650 mg Q4H PRN ORAL TEMP>100.5 05/31/18 08:45 06/11/18 16:44 Al Hydroxide/Mg Hydroxide (Mylanta) 15 ml Q6H PRN ORAL DYSPEPSIA 05/26/18 18:30 06/22/18 18:15 Albuterol/ Ipratropium (Albuterol/ Ipratropium) 3 ml Q4H PRN HHN Shortness of Breath 06/03/18 15:45 06/08/18 15:44 06/03/18 15:56 Amiodarone HCl (Cordarone) 200 mg DAILY ORAL 05/27/18 09:00 06/17/18 08:59 06/05/18 10:27 Apixaban (Eliquis) 5 mg Q12HR ORAL 06/05/18 21:00 07/05/18 20:59 06/05/18 21:35 Chlorhexidine Gluconate (Yari-Hex 2%) 1 applic DAILY@1999 TOPIC 05/26/18 20:00 06/23/18 19:59 06/05/18 21:37 Digoxin (Lanoxin) 0.125 mg DAILY ORAL 05/27/18 09:00 06/12/18 08:59 06/05/18 10:26 Diphenhydramine HCl (Benadryl) 25 mg Q8H PRN ORAL Itching/Pruritis 05/26/18 16:46 06/22/18 16:45 06/05/18 16:53 Docusate Sodium (Colace) 100 mg TWICE A DAY ORAL 05/26/18 18:00 06/22/18 17:59 06/03/18 17:37 Ethambutol HCl (Myambutol) 1,200 mg DAILY ORAL 05/27/18 09:00 06/25/18 13:59 06/05/18 10:25 Gabapentin (Neurontin) 100 mg THREE TIMES A DAY ORAL 05/26/18 18:00 06/11/18 17:59 06/05/18 16:53 Hydromorphone HCl (Dilaudid) 0.5 mg Q3HR PRN IVP FOR MODERATE PAIN (4-6) 05/31/18 04:00 06/07/18 03:59 06/06/18 02:31 Hydromorphone HCl (Dilaudid) 1 mg Q3H PRN IVP Moderate Pain (Pain Scale 4-6) 05/31/18 04:00 06/07/18 03:59 06/05/18 10:24 Hydromorphone HCl (Dilaudid) 2 mg Q3H PRN IVP Severe Pain (Pain Scale 7-10) 05/30/18 21:30 06/06/18 21:29 06/05/18 21:33 Isoniazid (Inh) 300 mg DAILY ORAL 05/27/18 09:00 06/25/18 13:59 06/05/18 10:27 Levofloxacin 100 ml @ 100 mls/hr Q24H IVPB 06/01/18 09:00 06/08/18 08:59 06/05/18 10:38 Lorazepam (Ativan 2mg/ml 1ml) 1 mg Q4H PRN IV For Anxiety 05/31/18 17:15 06/07/18 17:14 06/03/18 17:37 Magnesium Hydroxide (Mom) 30 ml BIDPRN PRN ORAL Constipation 05/26/18 18:30 06/22/18 18:15 Metoprolol Tartrate (Lopressor) 50 mg Q12HR ORAL 05/26/18 21:00 06/11/18 20:59 06/05/18 21:35 Metronidazole 100 ml @ 100 mls/hr Q8HR IVPB 05/31/18 20:00 06/07/18 19:59 06/06/18 07:19 Ondansetron HCl (Zofran) 4 mg Q6H PRN IVP Nausea & Vomiting 05/26/18 18:30 06/22/18 18:15 Polyethylene Glycol (Miralax) 17 gm DAILY ORAL 05/27/18 09:00 06/16/18 10:59 06/03/18 09:13 Pregabalin (Lyrica) 25 mg THREE TIMES A DAY ORAL 06/03/18 18:00 07/03/18 17:59 06/05/18 16:53 Pyrazinamide (Pza) 1,500 mg DAILY ORAL 05/27/18 09:00 06/25/18 13:59 06/05/18 10:26 Pyridoxine HCl (Vitamin B6) 50 mg DAILY ORAL 05/27/18 09:00 06/25/18 13:59 06/05/18 10:25 Quetiapine Fumarate (SEROquel) 100 mg BEDTIME ORAL 05/26/18 21:00 06/11/18 20:59 06/05/18 21:35 Sennosides (Senokot) 8.6 mg BIDPRN PRN ORAL Constipation 05/26/18 18:30 06/22/18 18:15 Sodium Hypochlorite (Dakin's Quarter Strength) 1 applic DAILY TOPIC 05/27/18 09:00 06/25/18 16:00 06/05/18 10:23 Alma Elkins M.D. Jun 06, 2018 10:04
[2018-06-06] MEDS: Amiodarone 200mg tab ORAL SCH (10:21)
[2018-06-06] MEDS: Isoniazid 300mg tab ORAL SCH (10:21)
[2018-06-06] MEDS: Digoxin 0.125mg tab ORAL SCH (10:21)
[2018-06-06] MEDS: Docusate 100mg cap ORAL SCH ×2 (10:22→17:42)
[2018-06-06] MEDS: Pyridoxine 50mg tab ORAL SCH (10:23)
[2018-06-06] MEDS: Eliquis 2.5mg tablet ORAL SCH ×2 (10:23→21:44)
[2018-06-06] MEDS: Miralax 17gm pkt ORAL SCH (10:25)
[2018-06-06] MEDS: Lyrica 25mg cap ORAL SCH ×3 (10:27→17:42)
--- NOTE | 2018-06-06 10:34 | Diagnostic Imaging Report ---
Indication: Cough Technique: One view of the chest Comparison: 06/05/2018 Findings: Left arm PICC remains. There is again demonstrated pleural fluid on the left. This may be somewhat improved. Generalized interstitial congestive changes persist, stable. The heart remains enlarged Impression: Possibly slightly improved pleural fluid on the left. Otherwise little drying rack changer one
--- NOTE | 2018-06-06 10:57 | Cardiac Electrophysiology PN ---
Assessment/Plan Assessment/Plan 1. Paroxysmal Atrial fibrillation/flutter with RVR. Converted to SR Continue digoxin 0.125 daily, metoprolol 50 bid ,Amiodarone 200 daily and Eliquis 5 bid 2. Anxiety got Ativan 3. Fever, cough and sepsis, on antibiotic and in respiratory isolation. 4. History of dementia and severe psychosis, on Seroquel. 5. Severe bilateral leg ulcers and sacral decubitus. S/P Bilateral AKA by Dr. Enrrique GERMAN RN Subjective Subjective Still in Resp isolation awaiting Department of Health clearance. Coughing. Speech therapist at bedside Objective Last 24 Hour Vital Signs Date Time Temp Pulse Resp B/P (MAP) Pulse Ox O2 Delivery O2 Flow Rate FiO2 06/06/18 10:21 72 06/06/18 09:00 72 146/70 06/06/18 00:00 98.1 54 16 141/79 (99) 100 06/05/18 21:35 76 137/60 06/05/18 21:00 Nasal Cannula 2.0 Nasal Cannula 2.0 06/05/18 20:19 97 Nasal Cannula 2.0 28 06/05/18 20:19 61 18 Nasal Cannula 2.0 28 06/05/18 20:19 Nasal Cannula 2.0 28 06/05/18 20:00 97.7 18 137/60 (85) 100 06/05/18 18:23 98.1 06/05/18 17:23 98.1 06/05/18 16:00 97.5 57 20 146/90 (108) 98 06/05/18 12:00 97.7 58 20 141/84 (103) 99 Intake and Output 06/05/18 06/06/18 19:00 07:00 Intake Total 680 ml Balance 680 ml Intake Oral 480 ml IV Total 200 ml # Voids 3 3 Laboratory Tests Test 06/06/18 05:45 White Blood Count 10.4 K/UL (4.8-10.8) Red Blood Count 2.86 M/UL (4.70-6.10) L Hemoglobin 8.2 G/DL (14.2-18.0) L Hematocrit 25.9 % (42.0-52.0) L Mean Corpuscular Volume 90 FL (80-99) Mean Corpuscular Hemoglobin 28.6 PG (27.0-31.0) Mean Corpuscular Hemoglobin Concent 31.6 G/DL (32.0-36.0) L Red Cell Distribution Width 13.6 % (11.6-14.8) Platelet Count 273 K/UL (150-450) Mean Platelet Volume 4.9 FL (6.5-10.1) L Neutrophils (%) (Auto) 75.4 % (45.0-75.0) H Lymphocytes (%) (Auto) 16.2 % (20.0-45.0) L Monocytes (%) (Auto) 7.3 % (1.0-10.0) Eosinophils (%) (Auto) 0.2 % (0.0-3.0) Basophils (%) (Auto) 0.9 % (0.0-2.0) Sodium Level 141 MMOL/L (136-145) Potassium Level 3.1 MMOL/L (3.5-5.1) L Chloride Level 106 MMOL/L (98-107) Carbon Dioxide Level 32 MMOL/L (21-32) Anion Gap 3 mmol/L (5-15) L Blood Urea Nitrogen 9 mg/dL (7-18) Creatinine 0.6 MG/DL (0.55-1.30) Estimat Glomerular Filtration Rate > 60 mL/min (>60) Glucose Level 88 MG/DL (74-106) Calcium Level 7.7 MG/DL (8.5-10.1) L Total Bilirubin 0.3 MG/DL (0.2-1.0) Aspartate Amino Transf (AST/SGOT) 16 U/L (15-37) Alanine Aminotransferase (ALT/SGPT) 9 U/L (12-78) L Alkaline Phosphatase 102 U/L (46-116) Total Protein 6.0 G/DL (6.4-8.2) L Albumin 1.4 G/DL (3.4-5.0) L Globulin 4.6 g/dL Albumin/Globulin Ratio 0.3 (1.0-2.7) L Objective HEAD AND NECK: Mild JVD. LUNGS: Coarse rhonchi. CARDIOVASCULAR: Irregular S1 and S2 with no murmur. ABDOMEN: Soft. EXTREMITIES: S/P Bilateral Amandeep Mart MD Jun 06, 2018 10:57
[2018-06-06 12:00] VITALS: BP 139/82
--- NOTE | 2018-06-06 13:09 | Pulmonology Progress Note ---
Assessment/Plan Problems: (1) Sepsis (2) Atrial fibrillation (3) Decubitus skin ulcer (4) Bipolar disorder (5) CAD (coronary artery disease) (6) HTN (hypertension) (7) CVA (cerebral vascular accident) Assessment/Plan cxr 06/06: much better continue abx as recommended by ID check AFB no new complains wound care f/u cultures monitor BP watch heart rate dvt prophylaxis symptomatic treatment Subjective ROS Limited/Unobtainable: No Constitutional: Reports: no symptoms HEENT: Repors: no symptoms Respiratory: Reports: no symptoms Allergies: Coded Allergies: MILK (Verified Allergy, Unknown, 02/02/18) Objective Last 24 Hour Vital Signs Date Time Temp Pulse Resp B/P (MAP) Pulse Ox O2 Delivery O2 Flow Rate FiO2 06/06/18 10:21 72 06/06/18 09:00 72 146/70 06/06/18 00:00 98.1 54 16 141/79 (99) 100 06/05/18 21:35 76 137/60 06/05/18 21:00 Nasal Cannula 2.0 Nasal Cannula 2.0 06/05/18 20:19 97 Nasal Cannula 2.0 28 06/05/18 20:19 61 18 Nasal Cannula 2.0 28 06/05/18 20:19 Nasal Cannula 2.0 28 06/05/18 20:00 97.7 18 137/60 (85) 100 06/05/18 18:23 98.1 06/05/18 17:23 98.1 06/05/18 16:00 97.5 57 20 146/90 (108) 98 Intake and Output 06/05/18 06/06/18 19:00 07:00 Intake Total 680 ml Balance 680 ml Intake Oral 480 ml IV Total 200 ml # Voids 3 3 Objective General Appearance: WD/WN HEENT: normocephalic Respiratory/Chest: chest wall non-tender, lungs clear, normal breath sounds Cardiovascular: normal peripheral pulses, normal rate Abdomen: normal bowel sounds, soft, non tender Genitourinary: normal external genitalia Extremities: s/p amputation Skin: no rash Laboratory Tests 06/06/18 05:45: White Blood Count 10.4, Red Blood Count 2.86L, Hemoglobin 8.2L, Hematocrit 25.9L , Mean Corpuscular Volume 90, Mean Corpuscular Hemoglobin 28.6, Mean Corpuscular Hemoglobin Concent 31.6L, Red Cell Distribution Width 13.6, Platelet Count 273, Mean Platelet Volume 4.9L, Neutrophils (%) (Auto) 75.4H, Lymphocytes (%) (Auto) 16.2L, Monocytes (%) (Auto) 7.3, Eosinophils (%) (Auto) 0.2, Basophils (%) (Auto) 0.9, Sodium Level 141, Potassium Level 3.1L, Chloride Level 106, Carbon Dioxide Level 32, Anion Gap 3L, Blood Urea Nitrogen 9, Creatinine 0.6, Estimat Glomerular Filtration Rate > 60, Glucose Level 88, Calcium Level 7.7L, Total Bilirubin 0.3, Aspartate Amino Transf (AST/SGOT) 16, Alanine Aminotransferase (ALT/SGPT) 9L, Alkaline Phosphatase 102, Total Protein 6.0L, Albumin 1.4L, Globulin 4.6, Albumin/Globulin Ratio 0.3L Current Medications Medications (Trade) Dose Ordered Sig/Erlin Route PRN Reason Start Time Stop Time Status Last Admin Dose Admin Acetaminophen (Tylenol) 650 mg Q4H PRN ORAL TEMP>100.5 05/31/18 08:45 06/11/18 16:44 Al Hydroxide/Mg Hydroxide (Mylanta) 15 ml Q6H PRN ORAL DYSPEPSIA 05/26/18 18:30 06/22/18 18:15 Albuterol/ Ipratropium (Albuterol/ Ipratropium) 3 ml Q4H PRN HHN Shortness of Breath 06/03/18 15:45 06/08/18 15:44 06/03/18 15:56 Amiodarone HCl (Cordarone) 200 mg DAILY ORAL 05/27/18 09:00 06/17/18 08:59 06/06/18 10:21 Apixaban (Eliquis) 5 mg Q12HR ORAL 06/05/18 21:00 07/05/18 20:59 06/06/18 10:23 Chlorhexidine Gluconate (Yari-Hex 2%) 1 applic DAILY@1999 TOPIC 05/26/18 20:00 06/23/18 19:59 06/05/18 21:37 Digoxin (Lanoxin) 0.125 mg DAILY ORAL 05/27/18 09:00 06/12/18 08:59 06/06/18 10:21 Diphenhydramine HCl (Benadryl) 25 mg Q8H PRN ORAL Itching/Pruritis 05/26/18 16:46 06/22/18 16:45 06/05/18 16:53 Docusate Sodium (Colace) 100 mg TWICE A DAY ORAL 05/26/18 18:00 06/22/18 17:59 06/06/18 10:22 Ethambutol HCl (Myambutol) 1,200 mg DAILY ORAL 05/27/18 09:00 06/25/18 13:59 06/06/18 09:00 Gabapentin (Neurontin) 100 mg THREE TIMES A DAY ORAL 05/26/18 18:00 06/11/18 17:59 06/06/18 10:23 Hydromorphone HCl (Dilaudid) 0.5 mg Q3HR PRN IVP FOR MODERATE PAIN (4-6) 05/31/18 04:00 06/07/18 03:59 06/06/18 02:31 Hydromorphone HCl (Dilaudid) 1 mg Q3H PRN IVP Moderate Pain (Pain Scale 4-6) 05/31/18 04:00 06/07/18 03:59 06/05/18 10:24 Hydromorphone HCl (Dilaudid) 2 mg Q3H PRN IVP Severe Pain (Pain Scale 7-10) 05/30/18 21:30 06/06/18 21:29 06/06/18 11:52 Isoniazid (Inh) 300 mg DAILY ORAL 05/27/18 09:00 06/25/18 13:59 06/06/18 10:21 Levofloxacin 100 ml @ 100 mls/hr Q24H IVPB 06/01/18 09:00 06/08/18 08:59 06/06/18 09:00 Lorazepam (Ativan 2mg/ml 1ml) 1 mg Q4H PRN IV For Anxiety 05/31/18 17:15 06/07/18 17:14 06/03/18 17:37 Magnesium Hydroxide (Mom) 30 ml BIDPRN PRN ORAL Constipation 05/26/18 18:30 06/22/18 18:15 Metoprolol Tartrate (Lopressor) 50 mg Q12HR ORAL 05/26/18 21:00 06/11/18 20:59 06/06/18 09:00 Metronidazole 100 ml @ 100 mls/hr Q8HR IVPB 05/31/18 20:00 06/07/18 19:59 06/06/18 07:19 Ondansetron HCl (Zofran) 4 mg Q6H PRN IVP Nausea & Vomiting 05/26/18 18:30 06/22/18 18:15 Polyethylene Glycol (Miralax) 17 gm DAILY ORAL 05/27/18 09:00 06/16/18 10:59 06/06/18 10:25 Pregabalin (Lyrica) 25 mg THREE TIMES A DAY ORAL 06/03/18 18:00 07/03/18 17:59 06/06/18 10:27 Pyrazinamide (Pza) 1,500 mg DAILY ORAL 05/27/18 09:00 06/25/18 13:59 06/06/18 10:22 Pyridoxine HCl (Vitamin B6) 50 mg DAILY ORAL 05/27/18 09:00 06/25/18 13:59 06/06/18 10:23 Quetiapine Fumarate (SEROquel) 100 mg BEDTIME ORAL 05/26/18 21:00 06/11/18 20:59 06/05/18 21:35 Sennosides (Senokot) 8.6 mg BIDPRN PRN ORAL Constipation 05/26/18 18:30 06/22/18 18:15 Sodium Hypochlorite (Dakin's Quarter Strength) 1 applic DAILY TOPIC 05/27/18 09:00 06/25/18 16:00 06/06/18 09:00 Minerva Montesinos MD Jun 06, 2018 13:09
[2018-06-06] MEDS: LORazepam Inj 2mg/ml 1ml IV PRN (13:51)
[2018-06-06] MEDS ORDERED: Hydromorphone 0.5mg/0.5ml inj IVP PRN (14:30)
[2018-06-06 16:00] VITALS: BP 139/79
[2018-06-06] MEDS ORDERED: HYDROmorphone 1mg/ml Carpuject IVP PRN (16:00)
[2018-06-06] MEDS ORDERED: LORazepam Inj 2mg/ml 1ml IV PRN (17:15)
--- NOTE | 2018-06-06 17:19 | Internal Med Progress Note ---
Subjective Date of Service: Jun 06, 2018 Physician Name Jackson,Daniel Attending Physician Pedro Caban MD Current Medications Medications (Trade) Dose Ordered Sig/Erlin Route PRN Reason Start Time Stop Time Status Last Admin Dose Admin Acetaminophen (Tylenol) 650 mg Q4H PRN ORAL TEMP>100.5 05/31/18 08:45 06/11/18 16:44 Al Hydroxide/Mg Hydroxide (Mylanta) 15 ml Q6H PRN ORAL DYSPEPSIA 05/26/18 18:30 06/22/18 18:15 Albuterol/ Ipratropium (Albuterol/ Ipratropium) 3 ml Q4H PRN HHN Shortness of Breath 06/03/18 15:45 06/08/18 15:44 06/03/18 15:56 Amiodarone HCl (Cordarone) 200 mg DAILY ORAL 05/27/18 09:00 06/17/18 08:59 06/06/18 10:21 Apixaban (Eliquis) 5 mg Q12HR ORAL 06/05/18 21:00 07/05/18 20:59 06/06/18 10:23 Chlorhexidine Gluconate (Yari-Hex 2%) 1 applic DAILY@2000 TOPIC 05/26/18 20:00 06/23/18 19:59 06/05/18 21:37 Digoxin (Lanoxin) 0.125 mg DAILY ORAL 05/27/18 09:00 06/12/18 08:59 06/06/18 10:21 Diphenhydramine HCl (Benadryl) 25 mg Q8H PRN ORAL Itching/Pruritis 05/26/18 16:46 06/22/18 16:45 06/05/18 16:53 Docusate Sodium (Colace) 100 mg TWICE A DAY ORAL 05/26/18 18:00 06/22/18 17:59 06/06/18 10:22 Ethambutol HCl (Myambutol) 1,200 mg DAILY ORAL 05/27/18 09:00 06/25/18 13:59 06/06/18 09:00 Gabapentin (Neurontin) 100 mg THREE TIMES A DAY ORAL 05/26/18 18:00 06/11/18 17:59 06/06/18 13:53 Hydromorphone HCl (Dilaudid) 0.5 mg Q3H PRN IVP FOR MODERATE PAIN (4-6) 06/06/18 14:30 06/13/18 14:29 Hydromorphone HCl (Dilaudid) 1 mg Q3H PRN IVP Moderate Pain (Pain Scale 4-6) 06/06/18 16:00 06/14/18 03:59 Hydromorphone HCl (Dilaudid) 2 mg Q3H PRN IVP Severe Pain (Pain Scale 7-10) 05/30/18 21:30 06/06/18 21:29 06/06/18 16:40 Isoniazid (Inh) 300 mg DAILY ORAL 05/27/18 09:00 06/25/18 13:59 06/06/18 10:21 Levofloxacin 100 ml @ 100 mls/hr Q24H IVPB 06/01/18 09:00 06/08/18 08:59 06/06/18 09:00 Lorazepam (Ativan 2mg/ml 1ml) 1 mg Q4H PRN IV For Anxiety 06/06/18 17:15 06/14/18 18:00 Magnesium Hydroxide (Mom) 30 ml BIDPRN PRN ORAL Constipation 05/26/18 18:30 06/22/18 18:15 Metoprolol Tartrate (Lopressor) 50 mg Q12HR ORAL 05/26/18 21:00 06/11/18 20:59 06/06/18 09:00 Metronidazole 100 ml @ 100 mls/hr Q8HR IVPB 05/31/18 20:00 06/07/18 19:59 06/06/18 13:52 Ondansetron HCl (Zofran) 4 mg Q6H PRN IVP Nausea & Vomiting 05/26/18 18:30 06/22/18 18:15 Polyethylene Glycol (Miralax) 17 gm DAILY ORAL 05/27/18 09:00 06/16/18 10:59 06/06/18 10:25 Potassium Chloride 100 ml @ 100 mls/hr Q1H IVPB 06/06/18 17:30 06/06/18 21:29 Pregabalin (Lyrica) 25 mg THREE TIMES A DAY ORAL 06/03/18 18:00 07/03/18 17:59 06/06/18 13:53 Pyrazinamide (Pza) 1,500 mg DAILY ORAL 05/27/18 09:00 06/25/18 13:59 06/06/18 10:22 Pyridoxine HCl (Vitamin B6) 50 mg DAILY ORAL 05/27/18 09:00 06/25/18 13:59 06/06/18 10:23 Quetiapine Fumarate (SEROquel) 100 mg BEDTIME ORAL 05/26/18 21:00 06/11/18 20:59 06/05/18 21:35 Sennosides (Senokot) 8.6 mg BIDPRN PRN ORAL Constipation 05/26/18 18:30 06/22/18 18:15 Sodium Hypochlorite (Dakin's Quarter Strength) 1 applic DAILY TOPIC 05/27/18 09:00 06/25/18 16:00 06/06/18 09:00 Allergies: Coded Allergies: MILK (Verified Allergy, Unknown, 02/02/18) ROS Limited/Unobtainable: No Constitutional: Reports: no symptoms HEENT: Reports: no symptoms Cardiovascular: Reports: no symptoms Respiratory: Reports: no symptoms Gastrointestinal/Abdominal: Reports: no symptoms Genitourinary: Reports: no symptoms 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: Reports: no symptoms Subjective 68 YO A M admitted with altered mental status. Now sepsis and atrial fibrillation with rapid rate. Cover for Int Med-Dr Caban. ICU. S/P bilateral above the knee amputation Tu 05/23/18 for gangrene Objective Last Vital Signs Date Time Temp Pulse Resp B/P (MAP) Pulse Ox O2 Delivery O2 Flow Rate FiO2 06/06/18 12:00 98.0 95 139/82 (101) 06/06/18 09:00 Nasal Cannula 2.0 Nasal Cannula 2.0 06/06/18 08:00 20 99 06/05/18 20:19 28 Laboratory Tests Test 06/06/18 05:45 White Blood Count 10.4 K/UL (4.8-10.8) Red Blood Count 2.86 M/UL (4.70-6.10) L Hemoglobin 8.2 G/DL (14.2-18.0) L Hematocrit 25.9 % (42.0-52.0) L Mean Corpuscular Volume 90 FL (80-99) Mean Corpuscular Hemoglobin 28.6 PG (27.0-31.0) Mean Corpuscular Hemoglobin Concent 31.6 G/DL (32.0-36.0) L Red Cell Distribution Width 13.6 % (11.6-14.8) Platelet Count 273 K/UL (150-450) Mean Platelet Volume 4.9 FL (6.5-10.1) L Neutrophils (%) (Auto) 75.4 % (45.0-75.0) H Lymphocytes (%) (Auto) 16.2 % (20.0-45.0) L Monocytes (%) (Auto) 7.3 % (1.0-10.0) Eosinophils (%) (Auto) 0.2 % (0.0-3.0) Basophils (%) (Auto) 0.9 % (0.0-2.0) Sodium Level 141 MMOL/L (136-145) Potassium Level 3.1 MMOL/L (3.5-5.1) L Chloride Level 106 MMOL/L (98-107) Carbon Dioxide Level 32 MMOL/L (21-32) Anion Gap 3 mmol/L (5-15) L Blood Urea Nitrogen 9 mg/dL (7-18) Creatinine 0.6 MG/DL (0.55-1.30) Estimat Glomerular Filtration Rate > 60 mL/min (>60) Glucose Level 88 MG/DL (74-106) Calcium Level 7.7 MG/DL (8.5-10.1) L Total Bilirubin 0.3 MG/DL (0.2-1.0) Aspartate Amino Transf (AST/SGOT) 16 U/L (15-37) Alanine Aminotransferase (ALT/SGPT) 9 U/L (12-78) L Alkaline Phosphatase 102 U/L (46-116) Total Protein 6.0 G/DL (6.4-8.2) L Albumin 1.4 G/DL (3.4-5.0) L Globulin 4.6 g/dL Albumin/Globulin Ratio 0.3 (1.0-2.7) L Intake and Output 06/05/18 06/06/18 19:00 07:00 Intake Total 680 ml Balance 680 ml Intake Oral 480 ml IV Total 200 ml # Voids 3 3 Objective General Appearance: alert, thin, agitated EENT: PERRL/EOMI, normal ENT inspection Neck: non-tender, normal alignment, supple, normal inspection Cardiovascular: normal peripheral pulses, normal rate, no gallop/murmur, no JVD , irregularly irregular Respiratory/Chest: chest wall non-tender, lungs clear, normal breath sounds, no respiratory distress, no accessory muscle use Abdomen: normal bowel sounds, non tender, soft, no organomegaly, no mass Extremities: normal range of motion, non-tender 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 (8) Sepsis Assessment & Plan: Continue cefepime and vanco per ID (9) UTI (urinary tract infection) Assessment & Plan: Mixed culture-continue vanco and cefepime per ID (10) Leukocytosis (11) Deep venous thrombosis of right femoral vein Assessment & Plan: Cont Eliquis (12) Gangrene Assessment & Plan: S/P above the knee amputation Bilat lower ext 05/23/18 (13) Pneumonia Assessment & Plan: Cavitary lesion. See ID note Daniel Jackson MD Jun 06, 2018 17:19
[2018-06-06 20:00] VITALS: BP 150/85
[2018-06-06] MEDS: Dyna-Hex 2% Top Sol 2oz TOPIC SCH (20:16)
[2018-06-06 23:12] VITALS: BP 121/67
[2018-06-07 04:12] VITALS: BP 143/76
[2018-06-07 07:10] LABS: EOSINOPHILS % (AUTO) 0.4 % (0.0-3.0); HEMATOCRIT 26.2 % (42.0-52.0); HEMOGLOBIN 8.5 G/DL (14.2-18.0); LYMPHOCYTES % (AUTO) 13.4 % (20.0-45.0); MEAN CORPUSCULAR VOLUME 92 FL (80-99); MONOCYTES % (AUTO) 7.1 % (1.0-10.0); NEUTROPHILS % (AUTO) 78.2 % (45.0-75.0); PLATELET COUNT 275 K/UL (150-450); RED BLOOD COUNT 2.87 M/UL (4.70-6.10); RED CELL DISTRIBUTION WIDTH 13.6 % (11.6-14.8); WHITE BLOOD COUNT 14.3 K/UL (4.8-10.8)
[2018-06-07 07:24] LABS: ALANINE AMINOTRANSFERASE 9 U/L (12-78); ALBUMIN 1.5 G/DL (3.4-5.0); ALBUMIN/GLOBULIN RATIO 0.3 (1.0-2.7); ALKALINE PHOSPHATASE 110 U/L (46-116); ANION GAP 1 mmol/L (5-15); ASPARTATE AMINO TRANSFERASE 20 U/L (15-37); BILIRUBIN,TOTAL 0.4 MG/DL (0.2-1.0); BLOOD UREA NITROGEN 7 mg/dL (7-18); CALCIUM 7.5 MG/DL (8.5-10.1); CARBON DIOXIDE 32 MMOL/L (21-32); CHLORIDE 105 MMOL/L (98-107); CREATININE 0.6 MG/DL (0.55-1.30); PHOSPHORUS 2.2 MG/DL (2.5-4.9); POTASSIUM 3.6 MMOL/L (3.5-5.1); SODIUM 138 MMOL/L (136-145)
[2018-06-07 08:00] VITALS: BP 132/91
[2018-06-07] MEDS: Docusate 100mg cap ORAL SCH ×2 (09:00→17:21)
[2018-06-07] MEDS: Miralax 17gm pkt ORAL SCH (09:00)
[2018-06-07] MEDS: Eliquis 2.5mg tablet ORAL SCH ×2 (09:58→23:26)
[2018-06-07] MEDS: Lyrica 25mg cap ORAL SCH ×3 (09:58→17:22)
[2018-06-07] MEDS: Digoxin 0.125mg tab ORAL SCH (09:59)
[2018-06-07] MEDS: Pyridoxine 50mg tab ORAL SCH (10:00)
[2018-06-07] MEDS: Amiodarone 200mg tab ORAL SCH (10:00)
[2018-06-07] MEDS: Metoprolol Tartrate 50mg tab ORAL SCH ×2 (10:01→23:25)
[2018-06-07] MEDS: Isoniazid 300mg tab ORAL SCH (10:02)
[2018-06-07] MEDS: Dakin's 0.125% Soln (Quarter Strength) 16oz TOPIC SCH (10:04)
--- NOTE | 2018-06-07 11:36 | Infectious Diseases Prog Note ---
Assessment/Plan Assessment/Plan Assessment/Plan 68 yo male who was transferred from [place] where he initially presented for AMS from [facility]. Low grade fever, SP Leukocytosis ,recurrent- SP Small lung cavitary lesion/ PNA- suspect likely to aspiration; lower suspicion for TB and/or fungal etiologies -06/05 CXR: Improved right-sided pleural effusion and basilar parenchymal opacities, over 6 days. Persistent left-sided pleural effusion. -CT c/a/p: 10 mm opacity in the peripheral anterolateral right upper lobe with small central cavitation. Patchy groundglass opacity in the posterior right upper lobe. Suspect that these represent inflammatory/infectious lesions, but neoplastic etiology of either is certainly possible. Large left and moderate right pleural effusions. Resultant compressive atelectasis of portions of the lower lobes. Equivocal distal esophageal wall thickening, could indicate esophagitis if real -sp cx usual resp noah -AFB sp cx; smear neg x4; MTB PCR neg -TB spot + -Neg Crag serum, legionella ag urine, Blasto ab, Histoplasma ab Chronic Hep C- VL 3.2 million copies -CT abd- liver unremarkable -Hep Bc ab+, Not immune for Hep A Sepsis 2/2 to bacteremia (at OSH) Likely source is skin ulcer Blood Cx 05/12/18 at [place] [facility] -Bcx 05/12 and (here) NTD 2d echo: no vegetations 05/15 CXR: Right midlung nodule. Absence of this finding on previous study makes this more likely to be a focus of inflammation, but rapidly growing neoplasm not excludable. Left basilar hazy opacity. Most likely a moderate to large pleural effusion.Component of infiltrate or atelectasis is also possible 05/12 CXR: Asymmetric ill-defined confluent groundglass opacity within the left mid/inferior lung, of uncertain etiology. B/l LE necrotic ulcer and toes- acute on chronci, ischemic w/ likely superinfection- likely non-salvageable per surgery -05/23 SP B/l BKA Afib w/ RVR Encephalopathy , improving -CT head w/wo: No acute intracranial abnormalities. Mild atrophy of the brain. Nonspecific white matter hypoattenuation probably due to chronic small vessel disease. Likely secondary to sepsis Cerebrovascular accident. Hypertension. Sacral decubitus ulcers. Bipolar disorder. Coronary artery disease. Plan - Continue Levaquin #12(abx d#25) and flagyl #19 for cavitary/aspiration PNA -low threshold to switch Cefepime and Flagyl to Meropenem if decompensates -05/26 SP IV Vancomycin #15, Cefepime #15 -Per Dept of Public health and to aid on discharge planning back to SNF, will cont empiric TB regimen with DONN (started on 05/26- ); Levaquin instead of Rifampin or Rifabutin given multiple drug interactions of Rifampin (w/ Amiodarone, quetiapine, metoprolol) -Dept of wants to treat empirically until final AFB culture results -monitor LFTs -u/a w/ reflex, Bcx x2 -EGK monitor QTc -Airborne isolation -f/u AFB sp cx,MTB PCR x1 -f/u cocci ab, fungal sp cx, - f/u Blood Cx - Wound care - Monitor CBC and Temps -f/u sp cx, u/a w/ reflex -Cdiff if diarrhea -Sx f/u -Discharge approval per Dept of Health -CT chest 06/08; if plan for discharge prior this date, can then do CT earlier Thank you for this consult. We will continue to follow the patient during this hospitalization. Discussed withRN Subjective Allergies: Coded Allergies: MILK (Verified Allergy, Unknown, 02/02/18) Subjective afebrile recurrent leukocytosis more alert at 2l NC Objective Vital Signs Last 24 Hour Vital Signs Date Time Temp Pulse Resp B/P (MAP) Pulse Ox O2 Delivery O2 Flow Rate FiO2 06/07/18 10:34 98.1 06/07/18 10:28 98.1 06/07/18 10:01 98 132/91 06/07/18 09:59 98 06/07/18 08:00 97.2 98 20 132/91 (105) 99 06/07/18 04:12 98.1 63 18 143/76 (98) 100 06/06/18 23:12 98.1 68 19 121/67 (85) 99 06/06/18 21:45 71 150/85 06/06/18 21:10 Nasal Cannula 2.0 28 06/06/18 21:10 98 Nasal Cannula 2.0 28 06/06/18 21:10 64 18 Nasal Cannula 2.0 28 06/06/18 20:46 98.6 06/06/18 20:17 Nasal Cannula 2.0 Nasal Cannula 2.0 06/06/18 20:00 98.3 71 20 150/85 (106) 95 06/06/18 16:00 98.6 51 20 139/79 (99) 06/06/18 12:00 98.0 95 139/82 (101) Height (Feet): 6 Height (Inches): 5.00 Weight (Pounds): 169 Objective Gen: NAD. Mumbling HEENT: NCAT, MMM, EOMI, No Oral lesion, no scleral icterus NECK: full range of motion, supple, no meningismus, No LAD, No JVD LUNGS: CTAB, No W/C, No Accessory muscle use CARDS: RRR, S1, S2, No M/R/G ABD: Soft, NT, ND, No R/G, + BS, No HSM, No Masses : Deferred Ext: C/C/E, Pulses 2+ B/L (DP, Rad) NEURO: A/O x 0, Strength and Sensation Grossly intact PSYCH: mood/affect normal SKIN: Left foot wound. No purulent drainage, Feet now bandaged Laboratory Tests Test 06/07/18 05:25 White Blood Count 14.3 K/UL (4.8-10.8) H Red Blood Count 2.87 M/UL (4.70-6.10) L Hemoglobin 8.5 G/DL (14.2-18.0) L Hematocrit 26.2 % (42.0-52.0) L Mean Corpuscular Volume 92 FL (80-99) Mean Corpuscular Hemoglobin 29.6 PG (27.0-31.0) Mean Corpuscular Hemoglobin Concent 32.4 G/DL (32.0-36.0) Red Cell Distribution Width 13.6 % (11.6-14.8) Platelet Count 275 K/UL (150-450) Mean Platelet Volume 5.1 FL (6.5-10.1) L Neutrophils (%) (Auto) 78.2 % (45.0-75.0) H Lymphocytes (%) (Auto) 13.4 % (20.0-45.0) L Monocytes (%) (Auto) 7.1 % (1.0-10.0) Eosinophils (%) (Auto) 0.4 % (0.0-3.0) Basophils (%) (Auto) 1.0 % (0.0-2.0) Sodium Level 138 MMOL/L (136-145) Potassium Level 3.6 MMOL/L (3.5-5.1) Chloride Level 105 MMOL/L (98-107) Carbon Dioxide Level 32 MMOL/L (21-32) Anion Gap 1 mmol/L (5-15) L Blood Urea Nitrogen 7 mg/dL (7-18) Creatinine 0.6 MG/DL (0.55-1.30) Estimat Glomerular Filtration Rate > 60 mL/min (>60) Glucose Level 86 MG/DL (74-106) Calcium Level 7.5 MG/DL (8.5-10.1) L Phosphorus Level 2.2 MG/DL (2.5-4.9) L Magnesium Level 1.0 MG/DL (1.8-2.4) L Total Bilirubin 0.4 MG/DL (0.2-1.0) Aspartate Amino Transf (AST/SGOT) 20 U/L (15-37) Alanine Aminotransferase (ALT/SGPT) 9 U/L (12-78) L Alkaline Phosphatase 110 U/L (46-116) Total Protein 6.3 G/DL (6.4-8.2) L Albumin 1.5 G/DL (3.4-5.0) L Globulin 4.8 g/dL Albumin/Globulin Ratio 0.3 (1.0-2.7) L Current Medications Medications (Trade) Dose Ordered Sig/Erlin Route PRN Reason Start Time Stop Time Status Last Admin Dose Admin Acetaminophen (Tylenol) 650 mg Q4H PRN ORAL TEMP>100.5 05/31/18 08:45 06/11/18 16:44 Al Hydroxide/Mg Hydroxide (Mylanta) 15 ml Q6H PRN ORAL DYSPEPSIA 05/26/18 18:30 06/22/18 18:15 Albuterol/ Ipratropium (Albuterol/ Ipratropium) 3 ml Q4H PRN HHN Shortness of Breath 06/03/18 15:45 06/08/18 15:44 06/03/18 15:56 Amiodarone HCl (Cordarone) 200 mg DAILY ORAL 05/27/18 09:00 06/17/18 08:59 06/07/18 10:00 Apixaban (Eliquis) 5 mg Q12HR ORAL 06/05/18 21:00 07/05/18 20:59 06/07/18 09:58 Chlorhexidine Gluconate (Yari-Hex 2%) 1 applic DAILY@2000 TOPIC 05/26/18 20:00 06/23/18 19:59 06/06/18 20:16 Digoxin (Lanoxin) 0.125 mg DAILY ORAL 05/27/18 09:00 06/12/18 08:59 06/07/18 09:59 Diphenhydramine HCl (Benadryl) 25 mg Q8H PRN ORAL Itching/Pruritis 05/26/18 16:46 06/22/18 16:45 06/05/18 16:53 Docusate Sodium (Colace) 100 mg TWICE A DAY ORAL 05/26/18 18:00 06/22/18 17:59 06/06/18 17:42 Ethambutol HCl (Myambutol) 1,200 mg DAILY ORAL 05/27/18 09:00 06/25/18 13:59 06/07/18 10:00 Gabapentin (Neurontin) 100 mg THREE TIMES A DAY ORAL 05/26/18 18:00 06/11/18 17:59 06/07/18 10:00 Hydromorphone HCl (Dilaudid) 0.5 mg Q3H PRN IVP FOR MODERATE PAIN (4-6) 06/06/18 14:30 06/13/18 14:29 Hydromorphone HCl (Dilaudid) 1 mg Q3H PRN IVP Moderate Pain (Pain Scale 4-6) 06/06/18 16:00 06/14/18 03:59 Hydromorphone HCl (Dilaudid) 2 mg Q3HR PRN IVP Severe Pain (Pain Scale 7-10) 06/06/18 22:30 06/13/18 22:29 06/07/18 10:04 Isoniazid (Inh) 300 mg DAILY ORAL 05/27/18 09:00 06/25/18 13:59 06/07/18 10:02 Levofloxacin 100 ml @ 100 mls/hr Q24H IVPB 06/01/18 09:00 06/14/18 08:59 06/07/18 10:39 Lorazepam (Ativan 2mg/ml 1ml) 1 mg Q4H PRN IV For Anxiety 06/06/18 17:15 06/14/18 18:00 Magnesium Hydroxide (Mom) 30 ml BIDPRN PRN ORAL Constipation 05/26/18 18:30 06/22/18 18:15 Metoprolol Tartrate (Lopressor) 50 mg Q12HR ORAL 05/26/18 21:00 06/11/18 20:59 06/07/18 10:01 Metronidazole 100 ml @ 100 mls/hr Q8HR IVPB 05/31/18 20:00 06/14/18 19:59 06/07/18 05:19 Ondansetron HCl (Zofran) 4 mg Q6H PRN IVP Nausea & Vomiting 05/26/18 18:30 06/22/18 18:15 Polyethylene Glycol (Miralax) 17 gm DAILY ORAL 05/27/18 09:00 06/16/18 10:59 06/06/18 10:25 Pregabalin (Lyrica) 25 mg THREE TIMES A DAY ORAL 06/03/18 18:00 07/03/18 17:59 06/07/18 09:58 Pyrazinamide (Pza) 1,500 mg DAILY ORAL 05/27/18 09:00 06/25/18 13:59 06/07/18 09:59 Pyridoxine HCl (Vitamin B6) 50 mg DAILY ORAL 05/27/18 09:00 06/25/18 13:59 06/07/18 10:00 Quetiapine Fumarate (SEROquel) 100 mg BEDTIME ORAL 05/26/18 21:00 06/11/18 20:59 06/06/18 21:44 Sennosides (Senokot) 8.6 mg BIDPRN PRN ORAL Constipation 05/26/18 18:30 06/22/18 18:15 Sodium Hypochlorite (Dakin's Quarter Strength) 1 applic DAILY TOPIC 05/27/18 09:00 06/25/18 16:00 06/07/18 10:04 Alma Elkins M.D. Jun 07, 2018 11:36
[2018-06-07 12:00] VITALS: BP 140/81
--- NOTE | 2018-06-07 13:14 | Internal Med Progress Note ---
Subjective Date of Service: Jun 07, 2018 Physician Name Jackson,Daniel Attending Physician Pedro Caban MD Current Medications Medications (Trade) Dose Ordered Sig/Erlin Route PRN Reason Start Time Stop Time Status Last Admin Dose Admin Acetaminophen (Tylenol) 650 mg Q4H PRN ORAL TEMP>100.5 05/31/18 08:45 06/11/18 16:44 Al Hydroxide/Mg Hydroxide (Mylanta) 15 ml Q6H PRN ORAL DYSPEPSIA 05/26/18 18:30 06/22/18 18:15 Albuterol/ Ipratropium (Albuterol/ Ipratropium) 3 ml Q4H PRN HHN Shortness of Breath 06/03/18 15:45 06/08/18 15:44 06/03/18 15:56 Amiodarone HCl (Cordarone) 200 mg DAILY ORAL 05/27/18 09:00 06/17/18 08:59 06/07/18 10:00 Apixaban (Eliquis) 5 mg Q12HR ORAL 06/05/18 21:00 07/05/18 20:59 06/07/18 09:58 Chlorhexidine Gluconate (Yari-Hex 2%) 1 applic DAILY@2000 TOPIC 05/26/18 20:00 06/23/18 19:59 06/06/18 20:16 Digoxin (Lanoxin) 0.125 mg DAILY ORAL 05/27/18 09:00 06/12/18 08:59 06/07/18 09:59 Diphenhydramine HCl (Benadryl) 25 mg Q8H PRN ORAL Itching/Pruritis 05/26/18 16:46 06/22/18 16:45 06/05/18 16:53 Docusate Sodium (Colace) 100 mg TWICE A DAY ORAL 05/26/18 18:00 06/22/18 17:59 06/06/18 17:42 Ethambutol HCl (Myambutol) 1,200 mg DAILY ORAL 05/27/18 09:00 06/25/18 13:59 06/07/18 10:00 Gabapentin (Neurontin) 100 mg THREE TIMES A DAY ORAL 05/26/18 18:00 06/11/18 17:59 06/07/18 10:00 Hydromorphone HCl (Dilaudid) 0.5 mg Q3H PRN IVP FOR MODERATE PAIN (4-6) 06/06/18 14:30 06/13/18 14:29 Hydromorphone HCl (Dilaudid) 1 mg Q3H PRN IVP Moderate Pain (Pain Scale 4-6) 06/06/18 16:00 06/14/18 03:59 Hydromorphone HCl (Dilaudid) 2 mg Q3HR PRN IVP Severe Pain (Pain Scale 7-10) 06/06/18 22:30 06/13/18 22:29 06/07/18 10:04 Isoniazid (Inh) 300 mg DAILY ORAL 05/27/18 09:00 06/25/18 13:59 06/07/18 10:02 Levofloxacin 100 ml @ 100 mls/hr Q24H IVPB 06/01/18 09:00 06/14/18 08:59 06/07/18 10:39 Lorazepam (Ativan 2mg/ml 1ml) 1 mg Q4H PRN IV For Anxiety 06/06/18 17:15 06/14/18 18:00 Magnesium Hydroxide (Mom) 30 ml BIDPRN PRN ORAL Constipation 05/26/18 18:30 06/22/18 18:15 Metoprolol Tartrate (Lopressor) 50 mg Q12HR ORAL 05/26/18 21:00 06/11/18 20:59 06/07/18 10:01 Metronidazole 100 ml @ 100 mls/hr Q8HR IVPB 05/31/18 20:00 06/14/18 19:59 06/07/18 05:19 Ondansetron HCl (Zofran) 4 mg Q6H PRN IVP Nausea & Vomiting 05/26/18 18:30 06/22/18 18:15 Polyethylene Glycol (Miralax) 17 gm DAILY ORAL 05/27/18 09:00 06/16/18 10:59 06/06/18 10:25 Pregabalin (Lyrica) 25 mg THREE TIMES A DAY ORAL 06/03/18 18:00 07/03/18 17:59 06/07/18 09:58 Pyrazinamide (Pza) 1,500 mg DAILY ORAL 05/27/18 09:00 06/25/18 13:59 06/07/18 09:59 Pyridoxine HCl (Vitamin B6) 50 mg DAILY ORAL 05/27/18 09:00 06/25/18 13:59 06/07/18 10:00 Quetiapine Fumarate (SEROquel) 100 mg BEDTIME ORAL 05/26/18 21:00 06/11/18 20:59 06/06/18 21:44 Sennosides (Senokot) 8.6 mg BIDPRN PRN ORAL Constipation 05/26/18 18:30 06/22/18 18:15 Sodium Hypochlorite (Dakin's Quarter Strength) 1 applic DAILY TOPIC 05/27/18 09:00 06/25/18 16:00 06/07/18 10:04 Allergies: Coded Allergies: MILK (Verified Allergy, Unknown, 02/02/18) ROS Limited/Unobtainable: No Constitutional: Reports: no symptoms HEENT: Reports: no symptoms Cardiovascular: Reports: no symptoms Respiratory: Reports: no symptoms Gastrointestinal/Abdominal: Reports: no symptoms Genitourinary: Reports: no symptoms 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: Reports: no symptoms Subjective 68 YO A M admitted with altered mental status. Now sepsis and atrial fibrillation with rapid rate. Cover for Int Med-Dr Caban. ICU. 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 Objective Last Vital Signs Date Time Temp Pulse Resp B/P (MAP) Pulse Ox O2 Delivery O2 Flow Rate FiO2 06/07/18 10:34 98.1 06/07/18 10:01 98 132/91 06/07/18 09:50 18 Nasal Cannula 2.0 28 06/07/18 09:50 99 Laboratory Tests Test 06/07/18 05:25 White Blood Count 14.3 K/UL (4.8-10.8) H Red Blood Count 2.87 M/UL (4.70-6.10) L Hemoglobin 8.5 G/DL (14.2-18.0) L Hematocrit 26.2 % (42.0-52.0) L Mean Corpuscular Volume 92 FL (80-99) Mean Corpuscular Hemoglobin 29.6 PG (27.0-31.0) Mean Corpuscular Hemoglobin Concent 32.4 G/DL (32.0-36.0) Red Cell Distribution Width 13.6 % (11.6-14.8) Platelet Count 275 K/UL (150-450) Mean Platelet Volume 5.1 FL (6.5-10.1) L Neutrophils (%) (Auto) 78.2 % (45.0-75.0) H Lymphocytes (%) (Auto) 13.4 % (20.0-45.0) L Monocytes (%) (Auto) 7.1 % (1.0-10.0) Eosinophils (%) (Auto) 0.4 % (0.0-3.0) Basophils (%) (Auto) 1.0 % (0.0-2.0) Sodium Level 138 MMOL/L (136-145) Potassium Level 3.6 MMOL/L (3.5-5.1) Chloride Level 105 MMOL/L (98-107) Carbon Dioxide Level 32 MMOL/L (21-32) Anion Gap 1 mmol/L (5-15) L Blood Urea Nitrogen 7 mg/dL (7-18) Creatinine 0.6 MG/DL (0.55-1.30) Estimat Glomerular Filtration Rate > 60 mL/min (>60) Glucose Level 86 MG/DL (74-106) Calcium Level 7.5 MG/DL (8.5-10.1) L Phosphorus Level 2.2 MG/DL (2.5-4.9) L Magnesium Level 1.0 MG/DL (1.8-2.4) L Total Bilirubin 0.4 MG/DL (0.2-1.0) Aspartate Amino Transf (AST/SGOT) 20 U/L (15-37) Alanine Aminotransferase (ALT/SGPT) 9 U/L (12-78) L Alkaline Phosphatase 110 U/L (46-116) Total Protein 6.3 G/DL (6.4-8.2) L Albumin 1.5 G/DL (3.4-5.0) L Globulin 4.8 g/dL Albumin/Globulin Ratio 0.3 (1.0-2.7) L Intake and Output 06/06/18 06/07/18 19:00 07:00 Intake Total 1860 ml 100 ml Output Total 1500 ml Balance 360 ml 100 ml Intake Oral 1560 ml IV Total 300 ml 100 ml Output Urine Total 1500 ml # Voids 3 # Bowel Movements 1 Objective General Appearance: alert, thin, agitated EENT: PERRL/EOMI, normal ENT inspection Neck: non-tender, normal alignment, supple, normal inspection Cardiovascular: normal peripheral pulses, normal rate, no gallop/murmur, no JVD , irregularly irregular Respiratory/Chest: chest wall non-tender, lungs clear, normal breath sounds, no respiratory distress, no accessory muscle use Abdomen: normal bowel sounds, non tender, soft, no organomegaly, no mass Extremities: normal range of motion, non-tender 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 (8) Sepsis Assessment & Plan: Continue cefepime and vanco per ID (9) UTI (urinary tract infection) Assessment & Plan: Mixed culture-continue vanco and cefepime per ID (10) Leukocytosis (11) Deep venous thrombosis of right femoral vein Assessment & Plan: Cont Eliquis (12) Gangrene Assessment & Plan: S/P above the knee amputation Bilat lower ext 05/23/18 (13) Pneumonia Assessment & Plan: Cavitary lesion. See ID note Status: Daniel Whitaker MD Jun 07, 2018 13:14
--- NOTE | 2018-06-07 14:12 | Pulmonology Progress Note ---
Assessment/Plan Problems: (1) Sepsis (2) Atrial fibrillation (3) Decubitus skin ulcer (4) Bipolar disorder (5) CAD (coronary artery disease) (6) HTN (hypertension) (7) CVA (cerebral vascular accident) Assessment/Plan doing better, pain is better continue abx as recommended by ID check AFB no new complains wound care f/u cultures monitor BP watch heart rate dvt prophylaxis symptomatic treatment Subjective ROS Limited/Unobtainable: No Constitutional: Reports: no symptoms HEENT: Repors: no symptoms Respiratory: Reports: no symptoms Allergies: Coded Allergies: MILK (Verified Allergy, Unknown, 02/02/18) Objective Last 24 Hour Vital Signs Date Time Temp Pulse Resp B/P (MAP) Pulse Ox O2 Delivery O2 Flow Rate FiO2 06/07/18 10:34 98.1 06/07/18 10:28 98.1 06/07/18 10:01 98 132/91 06/07/18 09:59 98 06/07/18 09:50 68 18 Nasal Cannula 2.0 06/07/18 09:50 99 Nasal Cannula 2.0 28 06/07/18 09:50 Nasal Cannula 2.0 28 06/07/18 08:45 Nasal Cannula 2.0 Nasal Cannula 2.0 06/07/18 08:00 97.2 98 20 132/91 (105) 99 06/07/18 04:12 98.1 63 18 143/76 (98) 100 06/06/18 23:12 98.1 68 19 121/67 (85) 99 06/06/18 21:45 71 150/85 06/06/18 21:10 Nasal Cannula 2.0 28 06/06/18 21:10 98 Nasal Cannula 2.0 28 06/06/18 21:10 64 18 Nasal Cannula 2.0 28 06/06/18 20:46 98.6 06/06/18 20:17 Nasal Cannula 2.0 Nasal Cannula 2.0 06/06/18 20:00 98.3 71 20 150/85 (106) 95 06/06/18 16:00 98.6 51 20 139/79 (99) Intake and Output 06/06/18 06/07/18 19:00 07:00 Intake Total 1860 ml 100 ml Output Total 1500 ml Balance 360 ml 100 ml Intake Oral 1560 ml IV Total 300 ml 100 ml Output Urine Total 1500 ml # Voids 3 # Bowel Movements 1 Objective General Appearance: WD/WN HEENT: normocephalic Respiratory/Chest: chest wall non-tender, lungs clear, normal breath sounds Cardiovascular: normal peripheral pulses, normal rate Abdomen: normal bowel sounds, soft, non tender Genitourinary: normal external genitalia Extremities: s/p amputation Skin: no rash Laboratory Tests 06/07/18 05:25: White Blood Count 14.3H, Red Blood Count 2.87L, Hemoglobin 8.5L, Hematocrit 26.2L, Mean Corpuscular Volume 92, Mean Corpuscular Hemoglobin 29.6, Mean Corpuscular Hemoglobin Concent 32.4, Red Cell Distribution Width 13.6, Platelet Count 275, Mean Platelet Volume 5.1L, Neutrophils (%) (Auto) 78.2H, Lymphocytes (%) (Auto) 13.4L, Monocytes (%) (Auto) 7.1, Eosinophils (%) (Auto) 0.4, Basophils (%) (Auto) 1.0, Sodium Level 138, Potassium Level 3.6, Chloride Level 105, Carbon Dioxide Level 32, Anion Gap 1L, Blood Urea Nitrogen 7, Creatinine 0.6, Estimat Glomerular Filtration Rate > 60, Glucose Level 86, Calcium Level 7.5L, Phosphorus Level 2.2L, Magnesium Level 1.0L, Total Bilirubin 0.4, Aspartate Amino Transf (AST/SGOT) 20, Alanine Aminotransferase (ALT/SGPT) 9L, Alkaline Phosphatase 110, Total Protein 6.3L, Albumin 1.5L, Globulin 4.8, Albumin/Globulin Ratio 0.3L Current Medications Medications (Trade) Dose Ordered Sig/Erlin Route PRN Reason Start Time Stop Time Status Last Admin Dose Admin Acetaminophen (Tylenol) 650 mg Q4H PRN ORAL TEMP>100.5 05/31/18 08:45 06/11/18 16:44 Al Hydroxide/Mg Hydroxide (Mylanta) 15 ml Q6H PRN ORAL DYSPEPSIA 05/26/18 18:30 06/22/18 18:15 Albuterol/ Ipratropium (Albuterol/ Ipratropium) 3 ml Q4H PRN HHN Shortness of Breath 06/03/18 15:45 06/08/18 15:44 06/03/18 15:56 Amiodarone HCl (Cordarone) 200 mg DAILY ORAL 05/27/18 09:00 06/17/18 08:59 06/07/18 10:00 Apixaban (Eliquis) 5 mg Q12HR ORAL 06/05/18 21:00 07/05/18 20:59 06/07/18 09:58 Chlorhexidine Gluconate (Yari-Hex 2%) 1 applic DAILY@2000 TOPIC 05/26/18 20:00 06/23/18 19:59 06/06/18 20:16 Digoxin (Lanoxin) 0.125 mg DAILY ORAL 05/27/18 09:00 06/12/18 08:59 06/07/18 09:59 Diphenhydramine HCl (Benadryl) 25 mg Q8H PRN ORAL Itching/Pruritis 05/26/18 16:46 06/22/18 16:45 06/05/18 16:53 Docusate Sodium (Colace) 100 mg TWICE A DAY ORAL 05/26/18 18:00 06/22/18 17:59 06/06/18 17:42 Ethambutol HCl (Myambutol) 1,200 mg DAILY ORAL 05/27/18 09:00 06/25/18 13:59 06/07/18 10:00 Gabapentin (Neurontin) 100 mg THREE TIMES A DAY ORAL 05/26/18 18:00 06/11/18 17:59 06/07/18 10:00 Hydromorphone HCl (Dilaudid) 0.5 mg Q3H PRN IVP FOR MODERATE PAIN (4-6) 06/06/18 14:30 06/13/18 14:29 Hydromorphone HCl (Dilaudid) 1 mg Q3H PRN IVP Moderate Pain (Pain Scale 4-6) 06/06/18 16:00 06/14/18 03:59 Hydromorphone HCl (Dilaudid) 2 mg Q3HR PRN IVP Severe Pain (Pain Scale 7-10) 06/06/18 22:30 06/13/18 22:29 06/07/18 10:04 Isoniazid (Inh) 300 mg DAILY ORAL 05/27/18 09:00 06/25/18 13:59 06/07/18 10:02 Levofloxacin 100 ml @ 100 mls/hr Q24H IVPB 06/01/18 09:00 06/14/18 08:59 06/07/18 10:39 Lorazepam (Ativan 2mg/ml 1ml) 1 mg Q4H PRN IV For Anxiety 06/06/18 17:15 06/14/18 18:00 Magnesium Hydroxide (Mom) 30 ml BIDPRN PRN ORAL Constipation 05/26/18 18:30 06/22/18 18:15 Metoprolol Tartrate (Lopressor) 50 mg Q12HR ORAL 05/26/18 21:00 06/11/18 20:59 06/07/18 10:01 Metronidazole 100 ml @ 100 mls/hr Q8HR IVPB 05/31/18 20:00 06/14/18 19:59 06/07/18 05:19 Ondansetron HCl (Zofran) 4 mg Q6H PRN IVP Nausea & Vomiting 05/26/18 18:30 06/22/18 18:15 Polyethylene Glycol (Miralax) 17 gm DAILY ORAL 05/27/18 09:00 06/16/18 10:59 06/06/18 10:25 Pregabalin (Lyrica) 25 mg THREE TIMES A DAY ORAL 06/03/18 18:00 07/03/18 17:59 06/07/18 09:58 Pyrazinamide (Pza) 1,500 mg DAILY ORAL 05/27/18 09:00 06/25/18 13:59 06/07/18 09:59 Pyridoxine HCl (Vitamin B6) 50 mg DAILY ORAL 05/27/18 09:00 06/25/18 13:59 06/07/18 10:00 Quetiapine Fumarate (SEROquel) 100 mg BEDTIME ORAL 05/26/18 21:00 06/11/18 20:59 06/06/18 21:44 Sennosides (Senokot) 8.6 mg BIDPRN PRN ORAL Constipation 05/26/18 18:30 06/22/18 18:15 Sodium Hypochlorite (Dakin's Quarter Strength) 1 applic DAILY TOPIC 05/27/18 09:00 06/25/18 16:00 06/07/18 10:04 Minerva Montesinos MD Jun 07, 2018 14:12
--- NOTE | 2018-06-07 14:25 | Cardiac Electrophysiology PN ---
Assessment/Plan Assessment/Plan 1. Paroxysmal Atrial fibrillation/flutter with RVR. Converted to SR Continue digoxin 0.125 daily, metoprolol 50 bid ,Amiodarone 200 daily and Eliquis 5 bid 2. Fever, cough and sepsis, on antibiotic and still in respiratory isolation. On INH, ETB, PZA 3. History of dementia and severe psychosis, on Seroquel. 4. Severe bilateral leg ulcers and sacral decubitus. S/P Bilateral AKA by Dr. Enrrique GREMAN RN Subjective Subjective Still in Resp isolation. Was just cleaned. Coughing less. Objective Last 24 Hour Vital Signs Date Time Temp Pulse Resp B/P (MAP) Pulse Ox O2 Delivery O2 Flow Rate FiO2 06/07/18 10:34 98.1 06/07/18 10:28 98.1 06/07/18 10:01 98 132/91 06/07/18 09:59 98 06/07/18 09:50 68 18 Nasal Cannula 2.0 28 06/07/18 09:50 99 Nasal Cannula 2.0 28 06/07/18 09:50 Nasal Cannula 2.0 28 06/07/18 08:45 Nasal Cannula 2.0 Nasal Cannula 2.0 06/07/18 08:00 97.2 98 20 132/91 (105) 99 06/07/18 04:12 98.1 63 18 143/76 (98) 100 06/06/18 23:12 98.1 68 19 121/67 (85) 99 06/06/18 21:45 71 150/85 06/06/18 21:10 Nasal Cannula 2.0 28 06/06/18 21:10 98 Nasal Cannula 2.0 28 06/06/18 21:10 64 18 Nasal Cannula 2.0 28 06/06/18 20:46 98.6 06/06/18 20:17 Nasal Cannula 2.0 Nasal Cannula 2.0 06/06/18 20:00 98.3 71 20 150/85 (106) 95 06/06/18 16:00 98.6 51 20 139/79 (99) Intake and Output 06/06/18 06/07/18 19:00 07:00 Intake Total 1860 ml 100 ml Output Total 1500 ml Balance 360 ml 100 ml Intake Oral 1560 ml IV Total 300 ml 100 ml Output Urine Total 1500 ml # Voids 3 # Bowel Movements 1 Laboratory Tests Test 06/07/18 05:25 White Blood Count 14.3 K/UL (4.8-10.8) H Red Blood Count 2.87 M/UL (4.70-6.10) L Hemoglobin 8.5 G/DL (14.2-18.0) L Hematocrit 26.2 % (42.0-52.0) L Mean Corpuscular Volume 92 FL (80-99) Mean Corpuscular Hemoglobin 29.6 PG (27.0-31.0) Mean Corpuscular Hemoglobin Concent 32.4 G/DL (32.0-36.0) Red Cell Distribution Width 13.6 % (11.6-14.8) Platelet Count 275 K/UL (150-450) Mean Platelet Volume 5.1 FL (6.5-10.1) L Neutrophils (%) (Auto) 78.2 % (45.0-75.0) H Lymphocytes (%) (Auto) 13.4 % (20.0-45.0) L Monocytes (%) (Auto) 7.1 % (1.0-10.0) Eosinophils (%) (Auto) 0.4 % (0.0-3.0) Basophils (%) (Auto) 1.0 % (0.0-2.0) Sodium Level 138 MMOL/L (136-145) Potassium Level 3.6 MMOL/L (3.5-5.1) Chloride Level 105 MMOL/L (98-107) Carbon Dioxide Level 32 MMOL/L (21-32) Anion Gap 1 mmol/L (5-15) L Blood Urea Nitrogen 7 mg/dL (7-18) Creatinine 0.6 MG/DL (0.55-1.30) Estimat Glomerular Filtration Rate > 60 mL/min (>60) Glucose Level 86 MG/DL (74-106) Calcium Level 7.5 MG/DL (8.5-10.1) L Phosphorus Level 2.2 MG/DL (2.5-4.9) L Magnesium Level 1.0 MG/DL (1.8-2.4) L Total Bilirubin 0.4 MG/DL (0.2-1.0) Aspartate Amino Transf (AST/SGOT) 20 U/L (15-37) Alanine Aminotransferase (ALT/SGPT) 9 U/L (12-78) L Alkaline Phosphatase 110 U/L (46-116) Total Protein 6.3 G/DL (6.4-8.2) L Albumin 1.5 G/DL (3.4-5.0) L Globulin 4.8 g/dL Albumin/Globulin Ratio 0.3 (1.0-2.7) L Objective HEAD AND NECK: Mild JVD. LUNGS: Coarse rhonchi. CARDIOVASCULAR: Irregular S1 and S2 with no murmur. ABDOMEN: Soft. EXTREMITIES: S/P Bilateral Amandeep Mart MD Jun 07, 2018 14:25
[2018-06-07 16:12] VITALS: BP 139/76
[2018-06-07 20:00] VITALS: BP 140/78
[2018-06-07] MEDS: Albuterol/Ipratropium 3ml neb HHN PRN (20:39)
[2018-06-07] MEDS: Dyna-Hex 2% Top Sol 2oz TOPIC SCH (23:26)
[2018-06-08] VITALS: BP 160/75
--- NOTE | 2018-06-08 00:06 | General Progress Note ---
Assessment/Plan Problem List: (1) Bipolar disorder ICD Codes: F31.9 - Bipolar disorder, unspecified SNOMED: [id number] (2) encephalopathy Assessment/Plan dc abilify start seroquel the pt lacks capacity to make decisions Subjective Date patient seen: Jun 07, 2018 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: Reports: anxiety, depressed Allergies: Coded Allergies: MILK (Verified Allergy, Unknown, 02/02/18) Subjective the pt is the same with cognitive impairment no agitation Objective Last 24 Hour Vital Signs Date Time Temp Pulse Resp B/P (MAP) Pulse Ox O2 Delivery O2 Flow Rate FiO2 06/07/18 23:25 88 140/78 06/07/18 21:00 Nasal Cannula 2.0 Nasal Cannula 2.0 06/07/18 20:48 88 16 100 Nasal Cannula 2.0 28 06/07/18 20:40 64 16 100 Nasal Cannula 2.0 100 06/07/18 20:40 Nasal Cannula 2.0 28 06/07/18 20:40 100 Nasal Cannula 2.0 28 06/07/18 20:40 64 16 Nasal Cannula 2.0 28 06/07/18 20:00 98.1 60 18 140/78 (98) 99 06/07/18 16:12 98.2 51 22 139/76 (97) 98 06/07/18 16:09 98.1 06/07/18 16:09 98.1 06/07/18 12:00 97.3 52 24 140/81 (100) 99 06/07/18 10:01 98 132/91 06/07/18 09:59 98 06/07/18 09:50 68 18 Nasal Cannula 2.0 28 06/07/18 09:50 99 Nasal Cannula 2.0 28 06/07/18 09:50 Nasal Cannula 2.0 28 06/07/18 08:45 Nasal Cannula 2.0 Nasal Cannula 2.0 06/07/18 08:00 97.2 98 20 132/91 (105) 99 06/07/18 04:12 98.1 63 18 143/76 (98) 100 Intake and Output 06/07/18 06/08/18 18:59 06:59 # Voids 3 # Bowel Movements 1 Laboratory Tests 06/07/18 05:25: White Blood Count 14.3H, Red Blood Count 2.87L, Hemoglobin 8.5L, Hematocrit 26.2L, Mean Corpuscular Volume 92, Mean Corpuscular Hemoglobin 29.6, Mean Corpuscular Hemoglobin Concent 32.4, Red Cell Distribution Width 13.6, Platelet Count 275, Mean Platelet Volume 5.1L, Neutrophils (%) (Auto) 78.2H, Lymphocytes (%) (Auto) 13.4L, Monocytes (%) (Auto) 7.1, Eosinophils (%) (Auto) 0.4, Basophils (%) (Auto) 1.0, Sodium Level 138, Potassium Level 3.6, Chloride Level 105, Carbon Dioxide Level 32, Anion Gap 1L, Blood Urea Nitrogen 7, Creatinine 0.6, Estimat Glomerular Filtration Rate > 60, Glucose Level 86, Calcium Level 7.5L, Phosphorus Level 2.2L, Magnesium Level 1.0L, Total Bilirubin 0.4, Aspartate Amino Transf (AST/SGOT) 20, Alanine Aminotransferase (ALT/SGPT) 9L, Alkaline Phosphatase 110, Total Protein 6.3L, Albumin 1.5L, Globulin 4.8, Albumin/Globulin Ratio 0.3L Height (Feet): 6 Height (Inches): 5.00 Weight (Pounds): 169 General Appearance: alert, confused, agitated Julissa Still MD Jun 08, 2018 00:06
[2018-06-08 04:00] VITALS: BP 134/91
[2018-06-08 06:50] LABS: EOSINOPHILS % (AUTO) 0.4 % (0.0-3.0); HEMATOCRIT 27.1 % (42.0-52.0); HEMOGLOBIN 8.4 G/DL (14.2-18.0); LYMPHOCYTES % (AUTO) 16.1 % (20.0-45.0); MEAN CORPUSCULAR VOLUME 93 FL (80-99); NEUTROPHILS % (AUTO) 74.5 % (45.0-75.0); PLATELET COUNT 288 K/UL (150-450); RED BLOOD COUNT 2.91 M/UL (4.70-6.10); RED CELL DISTRIBUTION WIDTH 13.2 % (11.6-14.8); WHITE BLOOD COUNT 12.4 K/UL (4.8-10.8)
[2018-06-08 07:03] LABS: ANION GAP 1 mmol/L (5-15); BLOOD UREA NITROGEN 6 mg/dL (7-18); CALCIUM 7.8 MG/DL (8.5-10.1); CARBON DIOXIDE 34 MMOL/L (21-32); CHLORIDE 105 MMOL/L (98-107); CREATININE 0.7 MG/DL (0.55-1.30); POTASSIUM 3.6 MMOL/L (3.5-5.1); SODIUM 140 MMOL/L (136-145)
[2018-06-08 08:45] VITALS: BP 155/86
[2018-06-08] MEDS: Docusate 100mg cap ORAL SCH ×2 (09:00→17:19)
[2018-06-08] MEDS: Miralax 17gm pkt ORAL SCH (09:00)
[2018-06-08] MEDS: Digoxin 0.125mg tab ORAL SCH (09:20)
[2018-06-08] MEDS: Pyridoxine 50mg tab ORAL SCH (09:20)
[2018-06-08] MEDS: Amiodarone 200mg tab ORAL SCH (09:21)
[2018-06-08] MEDS: Isoniazid 300mg tab ORAL SCH (09:21)
[2018-06-08] MEDS: Eliquis 2.5mg tablet ORAL SCH ×2 (09:21→21:43)
[2018-06-08] MEDS: Lyrica 25mg cap ORAL SCH ×3 (09:22→17:39)
[2018-06-08] MEDS: Dakin's 0.125% Soln (Quarter Strength) 16oz TOPIC SCH (09:22)
[2018-06-08] MEDS: Metoprolol Tartrate 50mg tab ORAL SCH ×2 (09:22→21:42)
--- NOTE | 2018-06-08 11:35 | Infectious Diseases Prog Note ---
Assessment/Plan Assessment/Plan Assessment/Plan 68 yo male who was transferred from [place] where he initially presented for AMS from [facility]. Low grade fever, SP Leukocytosis ,recurrent- SP Small lung cavitary lesion/ PNA- suspect likely to aspiration; lower suspicion for TB and/or fungal etiologies -06/05 CXR: Improved right-sided pleural effusion and basilar parenchymal opacities, over 6 days. Persistent left-sided pleural effusion. -CT c/a/p: 10 mm opacity in the peripheral anterolateral right upper lobe with small central cavitation. Patchy groundglass opacity in the posterior right upper lobe. Suspect that these represent inflammatory/infectious lesions, but neoplastic etiology of either is certainly possible. Large left and moderate right pleural effusions. Resultant compressive atelectasis of portions of the lower lobes. Equivocal distal esophageal wall thickening, could indicate esophagitis if real -sp cx usual resp noah -AFB sp cx; smear neg x4; MTB PCR neg -TB spot + -Neg Crag serum, legionella ag urine, Blasto ab, Histoplasma ab Chronic Hep C- VL 3.2 million copies -CT abd- liver unremarkable -Hep Bc ab+, Not immune for Hep A Sepsis 2/2 to bacteremia (at OSH) Likely source is skin ulcer Blood Cx 05/12/18 at [place] [facility] -Bcx 05/12 and (here) NTD 2d echo: no vegetations 05/15 CXR: Right midlung nodule. Absence of this finding on previous study makes this more likely to be a focus of inflammation, but rapidly growing neoplasm not excludable. Left basilar hazy opacity. Most likely a moderate to large pleural effusion.Component of infiltrate or atelectasis is also possible 05/12 CXR: Asymmetric ill-defined confluent groundglass opacity within the left mid/inferior lung, of uncertain etiology. B/l LE necrotic ulcer and toes- acute on chronci, ischemic w/ likely superinfection- likely non-salvageable per surgery -05/23 SP B/l BKA Afib w/ RVR Encephalopathy , improving -CT head w/wo: No acute intracranial abnormalities. Mild atrophy of the brain. Nonspecific white matter hypoattenuation probably due to chronic small vessel disease. Likely secondary to sepsis Cerebrovascular accident. Hypertension. Sacral decubitus ulcers. Bipolar disorder. Coronary artery disease. Plan - Continue Levaquin #13(abx d#26) and flagyl #20 for cavitary/aspiration PNA -low threshold to switch Cefepime and Flagyl to Meropenem if decompensates -05/26 SP IV Vancomycin #15, Cefepime #15 -Per Dept of Public health and to aid on discharge planning back to SNF, will cont empiric TB regimen with DONN (started on 05/26- ); Levaquin instead of Rifampin or Rifabutin given multiple drug interactions of Rifampin (w/ Amiodarone, quetiapine, metoprolol) -Dept of wants to treat empirically until final AFB culture results -monitor LFTs -f/u u/a w/ reflex, Bcx x2 -EGK monitor QTc -Airborne isolation -f/u AFB sp cx,MTB PCR x1 -f/u cocci ab, fungal sp cx, - f/u Blood Cx - Wound care - Monitor CBC and Temps -f/u sp cx, u/a w/ reflex -Cdiff if diarrhea -Sx f/u -Discharge approval per Dept of Health -f/u CT chest 06/08 Thank you for this consult. We will continue to follow the patient during this hospitalization. Discussed withRN Subjective Allergies: Coded Allergies: MILK (Verified Allergy, Unknown, 02/02/18) Subjective afebrile recurrent leukocytosis , imrpoving more alert at 2l NC Objective Vital Signs Last 24 Hour Vital Signs Date Time Temp Pulse Resp B/P (MAP) Pulse Ox O2 Delivery O2 Flow Rate FiO2 06/08/18 09:53 97.2 06/08/18 09:52 97.2 06/08/18 09:22 73 155/86 06/08/18 09:20 73 06/08/18 08:45 98.1 73 14 155/86 (109) 94 06/08/18 07:55 Nasal Cannula 2.0 28 06/08/18 07:55 70 16 Nasal Cannula 2.0 28 06/08/18 07:55 97 Nasal Cannula 2.0 28 06/08/18 04:00 97.2 51 18 134/91 (105) 100 06/08/18 00:00 98.6 62 18 160/75 (103) 100 06/07/18 23:25 88 140/78 06/07/18 21:00 Nasal Cannula 2.0 Nasal Cannula 2.0 06/07/18 20:48 88 16 100 Nasal Cannula 2.0 28 06/07/18 20:40 64 16 100 Nasal Cannula 2.0 100 06/07/18 20:40 Nasal Cannula 2.0 28 06/07/18 20:40 100 Nasal Cannula 2.0 28 06/07/18 20:40 64 16 Nasal Cannula 2.0 28 06/07/18 20:00 98.1 60 18 140/78 (98) 99 06/07/18 16:12 98.2 51 22 139/76 (97) 98 06/07/18 12:00 97.3 52 24 140/81 (100) 99 Height (Feet): 6 Height (Inches): 5.00 Weight (Pounds): 172 Objective Gen: NAD. Mumbling HEENT: NCAT, MMM, EOMI, No Oral lesion, no scleral icterus NECK: full range of motion, supple, no meningismus, No LAD, No JVD LUNGS: CTAB, No W/C, No Accessory muscle use CARDS: RRR, S1, S2, No M/R/G ABD: Soft, NT, ND, No R/G, + BS, No HSM, No Masses : Deferred Ext: C/C/E, Pulses 2+ B/L (DP, Rad) NEURO: A/O x 0, Strength and Sensation Grossly intact PSYCH: mood/affect normal SKIN: Left foot wound. No purulent drainage, Feet now bandaged Laboratory Tests Test 06/08/18 06:00 White Blood Count 12.4 K/UL (4.8-10.8) H Red Blood Count 2.91 M/UL (4.70-6.10) L Hemoglobin 8.4 G/DL (14.2-18.0) L Hematocrit 27.1 % (42.0-52.0) L Mean Corpuscular Volume 93 FL (80-99) Mean Corpuscular Hemoglobin 28.8 PG (27.0-31.0) Mean Corpuscular Hemoglobin Concent 31.0 G/DL (32.0-36.0) L Red Cell Distribution Width 13.2 % (11.6-14.8) Platelet Count 288 K/UL (150-450) Mean Platelet Volume 5.1 FL (6.5-10.1) L Neutrophils (%) (Auto) 74.5 % (45.0-75.0) Lymphocytes (%) (Auto) 16.1 % (20.0-45.0) L Monocytes (%) (Auto) 8.0 % (1.0-10.0) Eosinophils (%) (Auto) 0.4 % (0.0-3.0) Basophils (%) (Auto) 1.0 % (0.0-2.0) Sodium Level 140 MMOL/L (136-145) Potassium Level 3.6 MMOL/L (3.5-5.1) Chloride Level 105 MMOL/L (98-107) Carbon Dioxide Level 34 MMOL/L (21-32) H Anion Gap 1 mmol/L (5-15) L Blood Urea Nitrogen 6 mg/dL (7-18) L Creatinine 0.7 MG/DL (0.55-1.30) Estimat Glomerular Filtration Rate > 60 mL/min (>60) Glucose Level 98 MG/DL (74-106) Calcium Level 7.8 MG/DL (8.5-10.1) L Current Medications Medications (Trade) Dose Ordered Sig/Erlin Route PRN Reason Start Time Stop Time Status Last Admin Dose Admin Acetaminophen (Tylenol) 650 mg Q4H PRN ORAL TEMP>100.5 05/31/18 08:45 06/11/18 16:44 Al Hydroxide/Mg Hydroxide (Mylanta) 15 ml Q6H PRN ORAL DYSPEPSIA 05/26/18 18:30 06/22/18 18:15 Albuterol/ Ipratropium (Albuterol/ Ipratropium) 3 ml Q4H PRN HHN Shortness of Breath 06/03/18 15:45 06/08/18 15:44 06/07/18 20:39 Amiodarone HCl (Cordarone) 200 mg DAILY ORAL 05/27/18 09:00 06/17/18 08:59 06/08/18 09:21 Apixaban (Eliquis) 5 mg Q12HR ORAL 06/05/18 21:00 07/05/18 20:59 06/08/18 09:21 Chlorhexidine Gluconate (Yari-Hex 2%) 1 applic DAILY@2000 TOPIC 05/26/18 20:00 06/23/18 19:59 06/07/18 23:26 Digoxin (Lanoxin) 0.125 mg DAILY ORAL 05/27/18 09:00 06/12/18 08:59 06/08/18 09:20 Diphenhydramine HCl (Benadryl) 25 mg Q8H PRN ORAL Itching/Pruritis 05/26/18 16:46 06/22/18 16:45 06/05/18 16:53 Docusate Sodium (Colace) 100 mg TWICE A DAY ORAL 05/26/18 18:00 06/22/18 17:59 06/06/18 17:42 Ethambutol HCl (Myambutol) 1,200 mg DAILY ORAL 05/27/18 09:00 06/25/18 13:59 06/08/18 09:20 Gabapentin (Neurontin) 100 mg THREE TIMES A DAY ORAL 05/26/18 18:00 06/11/18 17:59 06/08/18 09:22 Hydromorphone HCl (Dilaudid) 0.5 mg Q3H PRN IVP FOR MODERATE PAIN (4-6) 06/06/18 14:30 06/13/18 14:29 Hydromorphone HCl (Dilaudid) 1 mg Q3H PRN IVP Moderate Pain (Pain Scale 4-6) 06/06/18 16:00 06/14/18 03:59 Hydromorphone HCl (Dilaudid) 2 mg Q3HR PRN IVP Severe Pain (Pain Scale 7-10) 06/06/18 22:30 06/13/18 22:29 06/08/18 09:23 Isoniazid (Inh) 300 mg DAILY ORAL 05/27/18 09:00 06/25/18 13:59 06/08/18 09:21 Levofloxacin 100 ml @ 100 mls/hr Q24H IVPB 06/01/18 09:00 06/14/18 08:59 06/08/18 10:08 Lorazepam (Ativan 2mg/ml 1ml) 1 mg Q4H PRN IV For Anxiety 06/06/18 17:15 06/14/18 18:00 Magnesium Hydroxide (Mom) 30 ml BIDPRN PRN ORAL Constipation 05/26/18 18:30 06/22/18 18:15 Metoprolol Tartrate (Lopressor) 50 mg Q12HR ORAL 05/26/18 21:00 06/11/18 20:59 06/08/18 09:22 Metronidazole 100 ml @ 100 mls/hr Q8HR IVPB 05/31/18 20:00 06/14/18 19:59 06/08/18 05:15 Ondansetron HCl (Zofran) 4 mg Q6H PRN IVP Nausea & Vomiting 05/26/18 18:30 06/22/18 18:15 Polyethylene Glycol (Miralax) 17 gm DAILY ORAL 05/27/18 09:00 06/16/18 10:59 06/06/18 10:25 Pregabalin (Lyrica) 25 mg THREE TIMES A DAY ORAL 06/03/18 18:00 07/03/18 17:59 06/08/18 09:22 Pyrazinamide (Pza) 1,500 mg DAILY ORAL 05/27/18 09:00 06/25/18 13:59 06/08/18 09:22 Pyridoxine HCl (Vitamin B6) 50 mg DAILY ORAL 05/27/18 09:00 06/25/18 13:59 06/08/18 09:20 Quetiapine Fumarate (SEROquel) 100 mg BEDTIME ORAL 05/26/18 21:00 06/11/18 20:59 06/07/18 23:25 Sennosides (Senokot) 8.6 mg BIDPRN PRN ORAL Constipation 05/26/18 18:30 06/22/18 18:15 Sodium Hypochlorite (Dakin's Quarter Strength) 1 applic DAILY TOPIC 05/27/18 09:00 06/25/18 16:00 06/08/18 09:22 Alma Elkins M.D. Jun 08, 2018 11:35
[2018-06-08 12:00] VITALS: BP 153/86
--- NOTE | 2018-06-08 12:39 | Diagnostic Imaging Report ---
Indication: Pneumonia, infection Technique: Noncontrast CT of the chest utilizing automated exposure control. Axial, sagittal and coronal reformats presented. CT dose: Total DLP 984.68 mGycm; CTDI vol 24.46 mGy Comparison: 05/18/2019 Findings: There are small bilateral pleural effusions with adjacent compressive atelectasis in the bilateral posterior lower lobes. Pneumonia in the atelectatic lung not excludable. There is no evidence of pneumothorax. The previously described cavity related to the nodule in the anterior right upper lobe has resolved. Overall size of the nodule is decreased (it previously measured approximately 12 mm and currently measures approximately 10 mm). Additionally the patchy opacities in the posterior right upper lobe are also slightly decreased compared to the prior exam however seen more nodular today and less groundglass. There are new somewhat streaky opacities adjacent to the medial aspect of the major fissure in the posterior medial right upper lobe which may be related to subsegmental atelectasis or scarring versus new focus of infiltrate. Heart is enlarged but stable in size compared to the prior exam. Portions of a PICC line are partially visualized. The catheter tip terminates in the region of the lower superior vena cava. There are coronary arterial calcifications. Thyroid is unremarkable in appearance. Nonspecific retrocrural and upper abdominal small lymph nodes again noted. Small mediastinal lymph nodes also noted. These may be reactive in etiology. Debris is noted within the esophagus up to the level of the petros. Imaged upper abdomen demonstrates nonspecific bilateral perinephric stranding. Low attenuation of the spleen better appreciated on previous contrast enhanced exam. Appears grossly unchanged. There is scoliosis and degenerative change of the spine. IMPRESSION: * Interval resolution of the cavitary component associated with the previously described anterior right upper lobe opacity. It is slightly decreased in size and more nodular in appearance on today's exam. Additional patchy opacities in the posterior right upper lobe are also slightly decreased in size and appear more nodular (previously were groundglass). Findings likely related to evolving infectious or inflammatory lesions however continued follow-up is recommended to assure resolution/exclude the possibility of neoplastic etiologies. * Small bilateral pleural effusions and adjacent compressive atelectasis in the bilateral posterior lower lobes. * Cardiomegaly and coronary artery disease. * Debris within the esophagus to the level of the petros. Note this isn't considered a risk for aspiration. Equivocal esophageal wall thickening again noted. Again, correlation with endoscopy can be obtained. * Previously described lesion in the spleen better appreciated on the prior contrast-enhanced exam. It appears grossly unchanged. * Unchanged borderline retroperitoneal and retrocrural adenopathy. The CT scanner at [facility] is accredited by the [employer] and the scans are performed using protocols designed to limit radiation exposure to as low as reasonably achievable to attain images of sufficient resolution adequate for diagnostic evaluation.
--- NOTE | 2018-06-08 12:58 | Pulmonology Progress Note ---
Assessment/Plan Problems: (1) Sepsis (2) Atrial fibrillation (3) Decubitus skin ulcer (4) Bipolar disorder (5) CAD (coronary artery disease) (6) HTN (hypertension) (7) CVA (cerebral vascular accident) Assessment/Plan CT from 06/08 reviewed: cavitary lesion has resolved doing better, pain is better continue abx as recommended by ID no new complains wound care f/u cultures monitor BP watch heart rate dvt prophylaxis symptomatic treatment dc isolation Subjective ROS Limited/Unobtainable: No Constitutional: Reports: no symptoms HEENT: Repors: no symptoms Allergies: Coded Allergies: MILK (Verified Allergy, Unknown, 02/02/18) Objective Last 24 Hour Vital Signs Date Time Temp Pulse Resp B/P (MAP) Pulse Ox O2 Delivery O2 Flow Rate FiO2 06/08/18 09:53 97.2 06/08/18 09:52 97.2 06/08/18 09:22 73 155/86 06/08/18 09:20 73 06/08/18 08:45 98.1 73 14 155/86 (109) 94 06/08/18 08:15 Nasal Cannula 2.0 Nasal Cannula 2.0 06/08/18 07:55 Nasal Cannula 2.0 28 06/08/18 07:55 70 16 Nasal Cannula 2.0 28 06/08/18 07:55 97 Nasal Cannula 2.0 28 06/08/18 04:00 97.2 51 18 134/91 (105) 100 06/08/18 00:00 98.6 62 18 160/75 (103) 100 06/07/18 23:25 88 140/78 06/07/18 21:00 Nasal Cannula 2.0 Nasal Cannula 2.0 06/07/18 20:48 88 16 100 Nasal Cannula 2.0 28 06/07/18 20:40 64 16 100 Nasal Cannula 2.0 100 06/07/18 20:40 Nasal Cannula 2.0 28 06/07/18 20:40 100 Nasal Cannula 2.0 28 06/07/18 20:40 64 16 Nasal Cannula 2.0 28 06/07/18 20:00 98.1 60 18 140/78 (98) 99 06/07/18 16:12 98.2 51 22 139/76 (97) 98 Intake and Output 06/07/18 06/08/18 19:00 07:00 Intake Total 100 ml Output Total 550 ml Balance -450 ml IV Total 100 ml Output Urine Total 550 ml # Voids 3 # Bowel Movements 1 Objective General Appearance: WD/WN HEENT: normocephalic Respiratory/Chest: chest wall non-tender, lungs clear, normal breath sounds Cardiovascular: normal peripheral pulses, normal rate Abdomen: normal bowel sounds, soft, non tender Genitourinary: normal external genitalia Extremities: s/p amputation Skin: no rash Laboratory Tests 06/08/18 06:00: White Blood Count 12.4H, Red Blood Count 2.91L, Hemoglobin 8.4L, Hematocrit 27.1L, Mean Corpuscular Volume 93, Mean Corpuscular Hemoglobin 28.8, Mean Corpuscular Hemoglobin Concent 31.0L, Red Cell Distribution Width 13.2, Platelet Count 288, Mean Platelet Volume 5.1L, Neutrophils (%) (Auto) 74.5, Lymphocytes (%) (Auto) 16.1L, Monocytes (%) (Auto) 8.0, Eosinophils (%) (Auto) 0.4, Basophils (%) (Auto) 1.0, Sodium Level 140, Potassium Level 3.6, Chloride Level 105, Carbon Dioxide Level 34H, Anion Gap 1L, Blood Urea Nitrogen 6L, Creatinine 0.7, Estimat Glomerular Filtration Rate > 60, Glucose Level 98, Calcium Level 7.8L Current Medications Medications (Trade) Dose Ordered Sig/Erlin Route PRN Reason Start Time Stop Time Status Last Admin Dose Admin Acetaminophen (Tylenol) 650 mg Q4H PRN ORAL TEMP>100.5 05/31/18 08:45 06/11/18 16:44 Al Hydroxide/Mg Hydroxide (Mylanta) 15 ml Q6H PRN ORAL DYSPEPSIA 05/26/18 18:30 06/22/18 18:15 Albuterol/ Ipratropium (Albuterol/ Ipratropium) 3 ml Q4H PRN HHN Shortness of Breath 06/03/18 15:45 06/08/18 15:44 06/07/18 20:39 Amiodarone HCl (Cordarone) 200 mg DAILY ORAL 05/27/18 09:00 06/17/18 08:59 06/08/18 09:21 Apixaban (Eliquis) 5 mg Q12HR ORAL 06/05/18 21:00 07/05/18 20:59 06/08/18 09:21 Chlorhexidine Gluconate (Yari-Hex 2%) 1 applic DAILY@2000 TOPIC 05/26/18 20:00 06/23/18 19:59 06/07/18 23:26 Digoxin (Lanoxin) 0.125 mg DAILY ORAL 05/27/18 09:00 06/12/18 08:59 06/08/18 09:20 Diphenhydramine HCl (Benadryl) 25 mg Q8H PRN ORAL Itching/Pruritis 05/26/18 16:46 06/22/18 16:45 06/05/18 16:53 Docusate Sodium (Colace) 100 mg TWICE A DAY ORAL 05/26/18 18:00 06/22/18 17:59 06/06/18 17:42 Ethambutol HCl (Myambutol) 1,200 mg DAILY ORAL 05/27/18 09:00 06/25/18 13:59 06/08/18 09:20 Gabapentin (Neurontin) 100 mg THREE TIMES A DAY ORAL 05/26/18 18:00 06/11/18 17:59 06/08/18 12:40 Hydromorphone HCl (Dilaudid) 0.5 mg Q3H PRN IVP FOR MODERATE PAIN (4-6) 06/06/18 14:30 06/13/18 14:29 Hydromorphone HCl (Dilaudid) 1 mg Q3H PRN IVP Moderate Pain (Pain Scale 4-6) 06/06/18 16:00 06/14/18 03:59 Hydromorphone HCl (Dilaudid) 2 mg Q3HR PRN IVP Severe Pain (Pain Scale 7-10) 06/06/18 22:30 06/13/18 22:29 06/08/18 12:40 Isoniazid (Inh) 300 mg DAILY ORAL 05/27/18 09:00 06/25/18 13:59 06/08/18 09:21 Levofloxacin 100 ml @ 100 mls/hr Q24H IVPB 06/01/18 09:00 06/14/18 08:59 06/08/18 10:08 Lorazepam (Ativan 2mg/ml 1ml) 1 mg Q4H PRN IV For Anxiety 06/06/18 17:15 06/14/18 18:00 Magnesium Hydroxide (Mom) 30 ml BIDPRN PRN ORAL Constipation 05/26/18 18:30 06/22/18 18:15 Metoprolol Tartrate (Lopressor) 50 mg Q12HR ORAL 05/26/18 21:00 06/11/18 20:59 06/08/18 09:22 Metronidazole 100 ml @ 100 mls/hr Q8HR IVPB 05/31/18 20:00 06/14/18 19:59 06/08/18 05:15 Ondansetron HCl (Zofran) 4 mg Q6H PRN IVP Nausea & Vomiting 05/26/18 18:30 06/22/18 18:15 Polyethylene Glycol (Miralax) 17 gm DAILY ORAL 05/27/18 09:00 06/16/18 10:59 06/06/18 10:25 Pregabalin (Lyrica) 25 mg THREE TIMES A DAY ORAL 06/03/18 18:00 07/03/18 17:59 06/08/18 12:39 Pyrazinamide (Pza) 1,500 mg DAILY ORAL 05/27/18 09:00 06/25/18 13:59 06/08/18 09:22 Pyridoxine HCl (Vitamin B6) 50 mg DAILY ORAL 05/27/18 09:00 06/25/18 13:59 06/08/18 09:20 Quetiapine Fumarate (SEROquel) 100 mg BEDTIME ORAL 05/26/18 21:00 06/11/18 20:59 06/07/18 23:25 Sennosides (Senokot) 8.6 mg BIDPRN PRN ORAL Constipation 05/26/18 18:30 06/22/18 18:15 Sodium Hypochlorite (Dakin's Quarter Strength) 1 applic DAILY TOPIC 05/27/18 09:00 06/25/18 16:00 06/08/18 09:22 Minerva Montesinos MD Jun 08, 2018 12:58
--- NOTE | 2018-06-08 13:10 | General Progress Note ---
Assessment/Plan Problem List: (1) Bipolar disorder ICD Codes: F31.9 - Bipolar disorder, unspecified SNOMED: 13890906 (2) encephalopathy Status: stable, progressing Assessment/Plan start Seroquel the pt lacks capacity to make decisions Subjective 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: Reports: anxiety Allergies: Coded Allergies: MILK (Verified Allergy, Unknown, 02/02/18) Subjective the pt is the same with cognitive impairment no agitation Objective Last 24 Hour Vital Signs Date Time Temp Pulse Resp B/P (MAP) Pulse Ox O2 Delivery O2 Flow Rate FiO2 06/08/18 09:53 97.2 06/08/18 09:52 97.2 06/08/18 09:22 73 155/86 06/08/18 09:20 73 06/08/18 08:45 98.1 73 14 155/86 (109) 94 06/08/18 08:15 Nasal Cannula 2.0 Nasal Cannula 2.0 06/08/18 07:55 Nasal Cannula 2.0 28 06/08/18 07:55 70 16 Nasal Cannula 2.0 28 06/08/18 07:55 97 Nasal Cannula 2.0 28 06/08/18 04:00 97.2 51 18 134/91 (105) 100 06/08/18 00:00 98.6 62 18 160/75 (103) 100 06/07/18 23:25 88 140/78 06/07/18 21:00 Nasal Cannula 2.0 Nasal Cannula 2.0 06/07/18 20:48 88 16 100 Nasal Cannula 2.0 28 06/07/18 20:40 64 16 100 Nasal Cannula 2.0 100 06/07/18 20:40 Nasal Cannula 2.0 28 06/07/18 20:40 100 Nasal Cannula 2.0 28 06/07/18 20:40 64 16 Nasal Cannula 2.0 28 06/07/18 20:00 98.1 60 18 140/78 (98) 99 06/07/18 16:12 98.2 51 22 139/76 (97) 98 Intake and Output 06/07/18 06/08/18 19:00 07:00 Intake Total 100 ml Output Total 550 ml Balance -450 ml IV Total 100 ml Output Urine Total 550 ml # Voids 3 # Bowel Movements 1 Laboratory Tests 06/08/18 06:00: White Blood Count 12.4H, Red Blood Count 2.91L, Hemoglobin 8.4L, Hematocrit 27.1L, Mean Corpuscular Volume 93, Mean Corpuscular Hemoglobin 28.8, Mean Corpuscular Hemoglobin Concent 31.0L, Red Cell Distribution Width 13.2, Platelet Count 288, Mean Platelet Volume 5.1L, Neutrophils (%) (Auto) 74.5, Lymphocytes (%) (Auto) 16.1L, Monocytes (%) (Auto) 8.0, Eosinophils (%) (Auto) 0.4, Basophils (%) (Auto) 1.0, Sodium Level 140, Potassium Level 3.6, Chloride Level 105, Carbon Dioxide Level 34H, Anion Gap 1L, Blood Urea Nitrogen 6L, Creatinine 0.7, Estimat Glomerular Filtration Rate > 60, Glucose Level 98, Calcium Level 7.8L Height (Feet): 6 Height (Inches): 5.00 Weight (Pounds): 172 General Appearance: alert, confused Julissa Still MD Jun 08, 2018 13:10
--- NOTE | 2018-06-08 14:09 | Internal Med Progress Note ---
Subjective Date of Service: Jun 08, 2018 Physician Name Jackson,Daniel Attending Physician Pedro Caban MD Current Medications Medications (Trade) Dose Ordered Sig/Erlin Route PRN Reason Start Time Stop Time Status Last Admin Dose Admin Acetaminophen (Tylenol) 650 mg Q4H PRN ORAL TEMP>100.5 05/31/18 08:45 06/11/18 16:44 Al Hydroxide/Mg Hydroxide (Mylanta) 15 ml Q6H PRN ORAL DYSPEPSIA 05/26/18 18:30 06/22/18 18:15 Albuterol/ Ipratropium (Albuterol/ Ipratropium) 3 ml Q4H PRN HHN Shortness of Breath 06/03/18 15:45 06/08/18 15:44 06/07/18 20:39 Amiodarone HCl (Cordarone) 200 mg DAILY ORAL 05/27/18 09:00 06/17/18 08:59 06/08/18 09:21 Apixaban (Eliquis) 5 mg Q12HR ORAL 06/05/18 21:00 07/05/18 20:59 06/08/18 09:21 Chlorhexidine Gluconate (Yari-Hex 2%) 1 applic DAILY@2000 TOPIC 05/26/18 20:00 06/23/18 19:59 06/07/18 23:26 Digoxin (Lanoxin) 0.125 mg DAILY ORAL 05/27/18 09:00 06/12/18 08:59 06/08/18 09:20 Diphenhydramine HCl (Benadryl) 25 mg Q8H PRN ORAL Itching/Pruritis 05/26/18 16:46 06/22/18 16:45 06/05/18 16:53 Docusate Sodium (Colace) 100 mg TWICE A DAY ORAL 05/26/18 18:00 06/22/18 17:59 06/06/18 17:42 Ethambutol HCl (Myambutol) 1,200 mg DAILY ORAL 05/27/18 09:00 06/25/18 13:59 06/08/18 09:20 Gabapentin (Neurontin) 100 mg THREE TIMES A DAY ORAL 05/26/18 18:00 06/11/18 17:59 06/08/18 12:40 Hydromorphone HCl (Dilaudid) 0.5 mg Q3H PRN IVP FOR MODERATE PAIN (4-6) 06/06/18 14:30 06/13/18 14:29 Hydromorphone HCl (Dilaudid) 1 mg Q3H PRN IVP Moderate Pain (Pain Scale 4-6) 06/06/18 16:00 06/14/18 03:59 Hydromorphone HCl (Dilaudid) 2 mg Q3HR PRN IVP Severe Pain (Pain Scale 7-10) 06/06/18 22:30 06/13/18 22:29 06/08/18 12:40 Isoniazid (Inh) 300 mg DAILY ORAL 05/27/18 09:00 06/25/18 13:59 06/08/18 09:21 Levofloxacin 100 ml @ 100 mls/hr Q24H IVPB 06/01/18 09:00 06/14/18 08:59 06/08/18 10:08 Lorazepam (Ativan 2mg/ml 1ml) 1 mg Q4H PRN IV For Anxiety 06/06/18 17:15 06/14/18 18:00 Magnesium Hydroxide (Mom) 30 ml BIDPRN PRN ORAL Constipation 05/26/18 18:30 06/22/18 18:15 Metoprolol Tartrate (Lopressor) 50 mg Q12HR ORAL 05/26/18 21:00 06/11/18 20:59 06/08/18 09:22 Metronidazole 100 ml @ 100 mls/hr Q8HR IVPB 05/31/18 20:00 06/14/18 19:59 06/08/18 05:15 Ondansetron HCl (Zofran) 4 mg Q6H PRN IVP Nausea & Vomiting 05/26/18 18:30 06/22/18 18:15 Polyethylene Glycol (Miralax) 17 gm DAILY ORAL 05/27/18 09:00 06/16/18 10:59 06/06/18 10:25 Pregabalin (Lyrica) 25 mg THREE TIMES A DAY ORAL 06/03/18 18:00 07/03/18 17:59 06/08/18 12:39 Pyrazinamide (Pza) 1,500 mg DAILY ORAL 05/27/18 09:00 06/25/18 13:59 06/08/18 09:22 Pyridoxine HCl (Vitamin B6) 50 mg DAILY ORAL 05/27/18 09:00 06/25/18 13:59 06/08/18 09:20 Quetiapine Fumarate (SEROquel) 100 mg BEDTIME ORAL 05/26/18 21:00 06/11/18 20:59 06/07/18 23:25 Sennosides (Senokot) 8.6 mg BIDPRN PRN ORAL Constipation 05/26/18 18:30 06/22/18 18:15 Sodium Hypochlorite (Dakin's Quarter Strength) 1 applic DAILY TOPIC 05/27/18 09:00 06/25/18 16:00 06/08/18 09:22 Allergies: Coded Allergies: MILK (Verified Allergy, Unknown, 02/02/18) Subjective 68 YO A M admitted with altered mental status. Cover for Int Med-Dr Caban. ICU. 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 Objective Last Vital Signs Date Time Temp Pulse Resp B/P (MAP) Pulse Ox O2 Delivery O2 Flow Rate FiO2 06/08/18 13:10 97.2 06/08/18 12:00 60 19 153/86 (108) 97 06/08/18 08:15 Nasal Cannula 2.0 Nasal Cannula 2.0 06/08/18 07:55 28 Laboratory Tests Test 06/08/18 06:00 White Blood Count 12.4 K/UL (4.8-10.8) H Red Blood Count 2.91 M/UL (4.70-6.10) L Hemoglobin 8.4 G/DL (14.2-18.0) L Hematocrit 27.1 % (42.0-52.0) L Mean Corpuscular Volume 93 FL (80-99) Mean Corpuscular Hemoglobin 28.8 PG (27.0-31.0) Mean Corpuscular Hemoglobin Concent 31.0 G/DL (32.0-36.0) L Red Cell Distribution Width 13.2 % (11.6-14.8) Platelet Count 288 K/UL (150-450) Mean Platelet Volume 5.1 FL (6.5-10.1) L Neutrophils (%) (Auto) 74.5 % (45.0-75.0) Lymphocytes (%) (Auto) 16.1 % (20.0-45.0) L Monocytes (%) (Auto) 8.0 % (1.0-10.0) Eosinophils (%) (Auto) 0.4 % (0.0-3.0) Basophils (%) (Auto) 1.0 % (0.0-2.0) Sodium Level 140 MMOL/L (136-145) Potassium Level 3.6 MMOL/L (3.5-5.1) Chloride Level 105 MMOL/L (98-107) Carbon Dioxide Level 34 MMOL/L (21-32) H Anion Gap 1 mmol/L (5-15) L Blood Urea Nitrogen 6 mg/dL (7-18) L Creatinine 0.7 MG/DL (0.55-1.30) Estimat Glomerular Filtration Rate > 60 mL/min (>60) Glucose Level 98 MG/DL (74-106) Calcium Level 7.8 MG/DL (8.5-10.1) L Intake and Output 06/07/18 06/08/18 19:00 07:00 Intake Total 100 ml Output Total 550 ml Balance -450 ml IV Total 100 ml Output Urine Total 550 ml # Voids 3 # Bowel Movements 1 Objective General Appearance: alert, thin, agitated EENT: PERRL/EOMI, normal ENT inspection Neck: non-tender, normal alignment, supple, normal inspection Cardiovascular: normal peripheral pulses, normal rate, no gallop/murmur, no JVD , irregularly irregular Respiratory/Chest: chest wall non-tender, lungs clear, normal breath sounds, no respiratory distress, no accessory muscle use Abdomen: normal bowel sounds, non tender, soft, no organomegaly, no mass Extremities: normal range of motion, non-tender 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 (8) Sepsis Assessment & Plan: Continue levaquin and flagyl per ID (9) UTI (urinary tract infection) Assessment & Plan: Mixed culture-continue levaquin and flagyl per ID (10) Leukocytosis (11) Deep venous thrombosis of right femoral vein Assessment & Plan: Cont Eliquis (12) Gangrene Assessment & Plan: S/P above the knee amputation Bilat lower ext 05/23/18 (13) Pneumonia Assessment & Plan: Cavitary lesion. Continue ethambutol, INH and PZA - See ID note Status: not improved Daniel Jackson MD Jun 08, 2018 14:09
[2018-06-08 16:20] VITALS: BP 139/81
--- NOTE | 2018-06-08 16:34 | Cardiac Electrophysiology PN ---
Assessment/Plan Assessment/Plan 1. Paroxysmal Atrial fib/flutter with RVR. Converted to SR Continue digoxin 0.125 daily, metoprolol 50 bid ,Amiodarone 200 daily and Eliquis 5 bid 2. Fever, cough and sepsis, on antibiotic and still in respiratory isolation. On INH, ETB, PZA 3. History of dementia and severe psychosis, on Seroquel. 4. Severe bilateral leg ulcers and sacral decubitus. S/P Bilateral AKA by Dr. Enrrique GERMAN RN Awaiting DC isolation Subjective Subjective Still in Resp isolation. Coughing less. Objective Last 24 Hour Vital Signs Date Time Temp Pulse Resp B/P (MAP) Pulse Ox O2 Delivery O2 Flow Rate FiO2 06/08/18 16:20 98.1 66 20 139/81 (100) 99 06/08/18 13:10 97.2 06/08/18 13:09 97.2 06/08/18 12:00 98.6 60 19 153/86 (108) 97 06/08/18 09:22 73 155/86 06/08/18 09:20 73 06/08/18 08:45 98.1 73 14 155/86 (109) 94 06/08/18 08:15 Nasal Cannula 2.0 Nasal Cannula 2.0 06/08/18 07:55 Nasal Cannula 2.0 28 06/08/18 07:55 70 16 Nasal Cannula 2.0 28 06/08/18 07:55 97 Nasal Cannula 2.0 28 06/08/18 04:00 97.2 51 18 134/91 (105) 100 06/08/18 00:00 98.6 62 18 160/75 (103) 100 06/07/18 23:25 88 140/78 06/07/18 21:00 Nasal Cannula 2.0 Nasal Cannula 2.0 06/07/18 20:48 88 16 100 Nasal Cannula 2.0 28 06/07/18 20:40 64 16 100 Nasal Cannula 2.0 100 06/07/18 20:40 Nasal Cannula 2.0 28 06/07/18 20:40 100 Nasal Cannula 2.0 28 06/07/18 20:40 64 16 Nasal Cannula 2.0 28 06/07/18 20:00 98.1 60 18 140/78 (98) 99 Intake and Output 06/07/18 06/08/18 19:00 07:00 Intake Total 100 ml Output Total 550 ml Balance -450 ml IV Total 100 ml Output Urine Total 550 ml # Voids 3 # Bowel Movements 1 Laboratory Tests Test 06/08/18 06:00 White Blood Count 12.4 K/UL (4.8-10.8) H Red Blood Count 2.91 M/UL (4.70-6.10) L Hemoglobin 8.4 G/DL (14.2-18.0) L Hematocrit 27.1 % (42.0-52.0) L Mean Corpuscular Volume 93 FL (80-99) Mean Corpuscular Hemoglobin 28.8 PG (27.0-31.0) Mean Corpuscular Hemoglobin Concent 31.0 G/DL (32.0-36.0) L Red Cell Distribution Width 13.2 % (11.6-14.8) Platelet Count 288 K/UL (150-450) Mean Platelet Volume 5.1 FL (6.5-10.1) L Neutrophils (%) (Auto) 74.5 % (45.0-75.0) Lymphocytes (%) (Auto) 16.1 % (20.0-45.0) L Monocytes (%) (Auto) 8.0 % (1.0-10.0) Eosinophils (%) (Auto) 0.4 % (0.0-3.0) Basophils (%) (Auto) 1.0 % (0.0-2.0) Sodium Level 140 MMOL/L (136-145) Potassium Level 3.6 MMOL/L (3.5-5.1) Chloride Level 105 MMOL/L (98-107) Carbon Dioxide Level 34 MMOL/L (21-32) H Anion Gap 1 mmol/L (5-15) L Blood Urea Nitrogen 6 mg/dL (7-18) L Creatinine 0.7 MG/DL (0.55-1.30) Estimat Glomerular Filtration Rate > 60 mL/min (>60) Glucose Level 98 MG/DL (74-106) Calcium Level 7.8 MG/DL (8.5-10.1) L Objective HEAD AND NECK: Mild JVD. LUNGS: Coarse rhonchi. CARDIOVASCULAR: Irregular S1 and S2 with no murmur. ABDOMEN: Soft. EXTREMITIES: S/P Bilateral Amandeep Mart MD Jun 08, 2018 16:34
[2018-06-08 17:45] LABS: ANION GAP 4 mmol/L (5-15); BLOOD UREA NITROGEN 7 mg/dL (7-18); CALCIUM 7.5 MG/DL (8.5-10.1); CARBON DIOXIDE 32 MMOL/L (21-32); CHLORIDE 105 MMOL/L (98-107); CREATININE 0.6 MG/DL (0.55-1.30); POTASSIUM 3.8 MMOL/L (3.5-5.1); SODIUM 140 MMOL/L (136-145)
[2018-06-08 19:04] LABS: APPEARANCE,URINE CLEAR; BILIRUBIN, URINE NEGATIVE (NEGATIVE); COLOR,URINE AMBER; GLUCOSE, URINE (UA) NEGATIVE (NEGATIVE); KETONES,URINE NEGATIVE (NEGATIVE); LEUKOCYTE ESTERASE ,URINE 3+ (NEGATIVE); NITRITE,URINE POSITIVE (NEGATIVE); PH,URINE 7 (4.5-8.0); PROTEIN,URINE NEGATIVE (NEGATIVE); UROBILINOGEN,URINE NORMAL MG/DL (0.0-1.0)
[2018-06-08 20:00] VITALS: BP 148/75
[2018-06-08] MEDS: metroNIDAZOLE 500mg tab ORAL SCH (21:41)
[2018-06-08] MEDS: Dyna-Hex 2% Top Sol 2oz TOPIC SCH (21:41)
[2018-06-09] VITALS: BP 106/58
[2018-06-09 04:00] VITALS: BP 132/91
[2018-06-09] MEDS: metroNIDAZOLE 500mg tab ORAL SCH ×3 (06:46→22:13)
[2018-06-09 07:25] LABS: HEMATOCRIT 24.9 % (42.0-52.0); HEMOGLOBIN 7.8 G/DL (14.2-18.0); MEAN CORPUSCULAR VOLUME 92 FL (80-99); PLATELET COUNT 268 K/UL (150-450); RED CELL DISTRIBUTION WIDTH 13.6 % (11.6-14.8); WHITE BLOOD COUNT 12.1 K/UL (4.8-10.8)
[2018-06-09 08:00] VITALS: BP 141/75
[2018-06-09] MEDS: Miralax 17gm pkt ORAL SCH (09:00)
[2018-06-09] MEDS: Isoniazid 300mg tab ORAL SCH (09:35)
[2018-06-09] MEDS: Lyrica 25mg cap ORAL SCH ×3 (09:35→17:20)
[2018-06-09] MEDS: Metoprolol Tartrate 50mg tab ORAL SCH ×2 (09:36→22:17)
[2018-06-09] MEDS: Docusate 100mg cap ORAL SCH ×2 (09:36→17:20)
[2018-06-09] MEDS: Digoxin 0.125mg tab ORAL SCH (09:36)
[2018-06-09] MEDS: Pyridoxine 50mg tab ORAL SCH (09:36)
[2018-06-09] MEDS: Amiodarone 200mg tab ORAL SCH (09:36)
[2018-06-09] MEDS: Eliquis 2.5mg tablet ORAL SCH ×2 (09:37→22:13)
[2018-06-09] MEDS: Levofloxacin 500mg tab ORAL SCH (09:38)
[2018-06-09] MEDS: Dakin's 0.125% Soln (Quarter Strength) 16oz TOPIC SCH (09:39)
--- NOTE | 2018-06-09 09:39 | Cardiac Electrophysiology PN ---
Assessment/Plan Assessment/Plan 1. Paroxysmal Atrial fib/flutter with RVR. Converted to SR when on tele. Continue Digoxin 0.125 daily, Metoprolol 50 bid , Amiodarone 200 daily and Eliquis 5 bid Check Dig level in am 2. Fever, cough, sepsis on antibiotic and still in respiratory isolation. On INH, ETB, PZA 3. History of dementia and severe psychosis, on Seroquel. 4. Severe bilateral leg ulcers and sacral decubitus. S/P Bilateral AKA by Dr. Enrrique GERMAN RN Subjective Subjective Still in Resp isolation. Comfortable in NAD. Objective Last 24 Hour Vital Signs Date Time Temp Pulse Resp B/P (MAP) Pulse Ox O2 Delivery O2 Flow Rate FiO2 06/09/18 08:00 98.1 94 20 141/75 (97) 100 06/09/18 04:00 98.6 77 20 132/91 (105) 95 06/09/18 00:00 97.5 60 18 106/58 (74) 95 06/08/18 21:42 108 148/75 06/08/18 21:22 66 16 Nasal Cannula 2.0 28 06/08/18 21:00 Nasal Cannula 2.0 Nasal Cannula 2.0 06/08/18 20:00 99.0 108 18 148/75 (99) 99 06/08/18 18:09 98.1 06/08/18 16:33 98.1 06/08/18 16:20 98.1 66 20 139/81 (100) 99 06/08/18 12:00 98.6 60 19 153/86 (108) 97 Intake and Output 06/08/18 06/09/18 19:00 07:00 Intake Total 800 ml 240 ml Balance 800 ml 240 ml Intake Oral 600 ml 240 ml IV Total 200 ml # Voids 3 2 # Bowel Movements 1 1 Laboratory Tests Test 06/08/18 15:55 06/08/18 18:10 06/09/18 06:35 Sodium Level 140 MMOL/L (136-145) Potassium Level 3.8 MMOL/L (3.5-5.1) Chloride Level 105 MMOL/L (98-107) Carbon Dioxide Level 32 MMOL/L (21-32) Anion Gap 4 mmol/L (5-15) L Blood Urea Nitrogen 7 mg/dL (7-18) Creatinine 0.6 MG/DL (0.55-1.30) Estimat Glomerular Filtration Rate > 60 mL/min (>60) Glucose Level 137 MG/DL (74-106) H Calcium Level 7.5 MG/DL (8.5-10.1) L Urine Color [place] Urine Appearance Clear Urine pH 7 (4.5-8.0) Urine Specific [place] 1.010 (1.005-1.035) Urine Protein Negative (NEGATIVE) Urine Glucose (UA) Negative (NEGATIVE) Urine Ketones Negative (NEGATIVE) Urine Blood Negative (NEGATIVE) Urine Nitrite Positive (NEGATIVE) H Urine Bilirubin Negative (NEGATIVE) Urine Ictotest Negative (NEGATIVE) Urine Urobilinogen Normal MG/DL (0.0-1.0) Urine Leukocyte Esterase 3+ (NEGATIVE) H Urine RBC 2-4 /HPF (0 - 0) H Urine WBC 2-4 /HPF (0 - 0) Urine Squamous Epithelial Cells Moderate /LPF (NONE/OCC) H Urine Bacteria Few /HPF (NONE) White Blood Count 12.1 K/UL (4.8-10.8) H Red Blood Count 2.70 M/UL (4.70-6.10) L Hemoglobin 7.8 G/DL (14.2-18.0) L Hematocrit 24.9 % (42.0-52.0) L Mean Corpuscular Volume 92 FL (80-99) Mean Corpuscular Hemoglobin 28.9 PG (27.0-31.0) Mean Corpuscular Hemoglobin Concent 31.3 G/DL (32.0-36.0) L Red Cell Distribution Width 13.6 % (11.6-14.8) Platelet Count 268 K/UL (150-450) Mean Platelet Volume 5.1 FL (6.5-10.1) L Neutrophils (%) (Auto) % (45.0-75.0) Lymphocytes (%) (Auto) % (20.0-45.0) Monocytes (%) (Auto) % (1.0-10.0) Eosinophils (%) (Auto) % (0.0-3.0) Basophils (%) (Auto) % (0.0-2.0) Neutrophils % (Manual) Pending Lymphocytes % (Manual) Pending Platelet Estimate Pending Platelet Morphology Pending Microbiology Date/Time Source Procedure Growth Status 06/07/18 19:30 Blood Blood Culture - Preliminary NO GROWTH AFTER 24 HOURS Resulted 06/07/18 19:15 Blood Blood Culture - Preliminary NO GROWTH AFTER 24 HOURS Resulted Objective HEAD AND NECK: Mild JVD. LUNGS: Coarse rhonchi. CARDIOVASCULAR: Irregular S1 and S2 with no murmur. ABDOMEN: Soft. EXTREMITIES: S/P Bilateral Amandeep Mart MD Jun 09, 2018 09:39
[2018-06-09 12:00] VITALS: BP 120/68
--- NOTE | 2018-06-09 14:21 | Internal Med Progress Note ---
Subjective Physician Name Pedro Caban Attending Physician Pedro Caban MD Current Medications Medications (Trade) Dose Ordered Sig/Erlin Route PRN Reason Start Time Stop Time Status Last Admin Dose Admin Acetaminophen (Tylenol) 650 mg Q4H PRN ORAL TEMP>100.5 05/31/18 08:45 06/11/18 16:44 Al Hydroxide/Mg Hydroxide (Mylanta) 15 ml Q6H PRN ORAL DYSPEPSIA 05/26/18 18:30 06/22/18 18:15 Amiodarone HCl (Cordarone) 200 mg DAILY ORAL 05/27/18 09:00 06/17/18 08:59 06/09/18 09:36 Apixaban (Eliquis) 5 mg Q12HR ORAL 06/05/18 21:00 07/05/18 20:59 06/09/18 09:37 Chlorhexidine Gluconate (Yari-Hex 2%) 1 applic DAILY@1999 TOPIC 05/26/18 20:00 06/23/18 19:59 06/08/18 21:41 Digoxin (Lanoxin) 0.125 mg DAILY ORAL 05/27/18 09:00 06/12/18 08:59 06/09/18 09:36 Diphenhydramine HCl (Benadryl) 25 mg Q8H PRN ORAL Itching/Pruritis 05/26/18 16:46 06/22/18 16:45 06/05/18 16:53 Docusate Sodium (Colace) 100 mg TWICE A DAY ORAL 05/26/18 18:00 06/22/18 17:59 06/09/18 09:36 Ethambutol HCl (Myambutol) 1,200 mg DAILY ORAL 05/27/18 09:00 06/25/18 13:59 06/09/18 09:00 Gabapentin (Neurontin) 100 mg THREE TIMES A DAY ORAL 05/26/18 18:00 06/11/18 17:59 06/09/18 13:43 Hydromorphone HCl (Dilaudid) 0.5 mg Q3H PRN IVP FOR MODERATE PAIN (4-6) 06/06/18 14:30 06/13/18 14:29 06/09/18 13:43 Hydromorphone HCl (Dilaudid) 1 mg Q3H PRN IVP Moderate Pain (Pain Scale 4-6) 06/06/18 16:00 06/14/18 03:59 Hydromorphone HCl (Dilaudid) 2 mg Q3HR PRN IVP Severe Pain (Pain Scale 7-10) 06/06/18 22:30 06/13/18 22:29 06/08/18 21:56 Isoniazid (Inh) 300 mg DAILY ORAL 05/27/18 09:00 06/25/18 13:59 06/09/18 09:35 Levofloxacin (Levaquin) 500 mg DAILY ORAL 06/09/18 09:00 06/14/18 08:59 06/09/18 09:38 Lorazepam (Ativan 2mg/ml 1ml) 1 mg Q4H PRN IV For Anxiety 06/06/18 17:15 06/14/18 18:00 Magnesium Hydroxide (Mom) 30 ml BIDPRN PRN ORAL Constipation 05/26/18 18:30 06/22/18 18:15 Metoprolol Tartrate (Lopressor) 50 mg Q12HR ORAL 05/26/18 21:00 06/11/18 20:59 06/09/18 09:36 Metronidazole (Flagyl) 500 mg Q8HR ORAL 06/08/18 22:00 06/15/18 21:59 06/09/18 13:43 Ondansetron HCl (Zofran) 4 mg Q6H PRN IVP Nausea & Vomiting 05/26/18 18:30 06/22/18 18:15 Polyethylene Glycol (Miralax) 17 gm DAILY ORAL 05/27/18 09:00 06/16/18 10:59 06/09/18 09:00 Pregabalin (Lyrica) 25 mg THREE TIMES A DAY ORAL 06/03/18 18:00 07/03/18 17:59 06/09/18 13:44 Pyrazinamide (Pza) 1,500 mg DAILY ORAL 05/27/18 09:00 06/25/18 13:59 06/09/18 09:38 Pyridoxine HCl (Vitamin B6) 50 mg DAILY ORAL 05/27/18 09:00 06/25/18 13:59 06/09/18 09:36 Quetiapine Fumarate (SEROquel) 100 mg BEDTIME ORAL 05/26/18 21:00 06/11/18 20:59 06/08/18 21:42 Sennosides (Senokot) 8.6 mg BIDPRN PRN ORAL Constipation 05/26/18 18:30 06/22/18 18:15 Sodium Hypochlorite (Dakin's Quarter Strength) 1 applic DAILY TOPIC 05/27/18 09:00 06/25/18 16:00 06/09/18 09:39 Allergies: Coded Allergies: MILK (Verified Allergy, Unknown, 02/02/18) Subjective awake, alert, responsive, C/O less stumps pain, Hgb: 7.8 dropped Objective Last Vital Signs Date Time Temp Pulse Resp B/P (MAP) Pulse Ox O2 Delivery O2 Flow Rate FiO2 06/09/18 12:00 98.1 74 20 120/68 (85) 100 06/09/18 09:55 Nasal Cannula 2.0 28 Laboratory Tests Test 06/08/18 15:55 06/08/18 18:10 06/09/18 06:35 Sodium Level 140 MMOL/L (136-145) Potassium Level 3.8 MMOL/L (3.5-5.1) Chloride Level 105 MMOL/L (98-107) Carbon Dioxide Level 32 MMOL/L (21-32) Anion Gap 4 mmol/L (5-15) L Blood Urea Nitrogen 7 mg/dL (7-18) Creatinine 0.6 MG/DL (0.55-1.30) Estimat Glomerular Filtration Rate > 60 mL/min (>60) Glucose Level 137 MG/DL (74-106) H Calcium Level 7.5 MG/DL (8.5-10.1) L Urine Color [place] Urine Appearance Clear Urine pH 7 (4.5-8.0) Urine Specific [place] 1.010 (1.005-1.035) Urine Protein Negative (NEGATIVE) Urine Glucose (UA) Negative (NEGATIVE) Urine Ketones Negative (NEGATIVE) Urine Blood Negative (NEGATIVE) Urine Nitrite Positive (NEGATIVE) H Urine Bilirubin Negative (NEGATIVE) Urine Ictotest Negative (NEGATIVE) Urine Urobilinogen Normal MG/DL (0.0-1.0) Urine Leukocyte Esterase 3+ (NEGATIVE) H Urine RBC 2-4 /HPF (0 - 0) H Urine WBC 2-4 /HPF (0 - 0) Urine Squamous Epithelial Cells Moderate /LPF (NONE/OCC) H Urine Bacteria Few /HPF (NONE) White Blood Count 12.1 K/UL (4.8-10.8) H Red Blood Count 2.70 M/UL (4.70-6.10) L Hemoglobin 7.8 G/DL (14.2-18.0) L Hematocrit 24.9 % (42.0-52.0) L Mean Corpuscular Volume 92 FL (80-99) Mean Corpuscular Hemoglobin 28.9 PG (27.0-31.0) Mean Corpuscular Hemoglobin Concent 31.3 G/DL (32.0-36.0) L Red Cell Distribution Width 13.6 % (11.6-14.8) Platelet Count 268 K/UL (150-450) Mean Platelet Volume 5.1 FL (6.5-10.1) L Neutrophils (%) (Auto) % (45.0-75.0) Lymphocytes (%) (Auto) % (20.0-45.0) Monocytes (%) (Auto) % (1.0-10.0) Eosinophils (%) (Auto) % (0.0-3.0) Basophils (%) (Auto) % (0.0-2.0) Differential Total Cells Counted 100 Neutrophils % (Manual) 73 % (45-75) Lymphocytes % (Manual) 19 % (20-45) L Monocytes % (Manual) 8 % (1-10) Eosinophils % (Manual) 0 % (0-3) Basophils % (Manual) 0 % (0-2) Band Neutrophils 0 % (0-8) Platelet Estimate Adequate Platelet Morphology Normal Hypochromasia 3+ Anisocytosis 1+ Microbiology Date/Time Source Procedure Growth Status 06/07/18 19:30 Blood Blood Culture - Preliminary NO GROWTH AFTER 24 HOURS Resulted 06/07/18 19:15 Blood Blood Culture - Preliminary NO GROWTH AFTER 24 HOURS Resulted Intake and Output 06/08/18 06/09/18 19:00 07:00 Intake Total 800 ml 240 ml Balance 800 ml 240 ml Intake Oral 600 ml 240 ml IV Total 200 ml # Voids 3 2 # Bowel Movements 1 1 Objective General: No acute distress, awake and alert HEENT: NCAT, sclera anicteric, PERRL, EOMI. Neck: Supple, no significant jugular venous distention, Lungs: Fair inspiratory effort, Decrease air on bases, no Wheeze or Rales. Heart: Irregular rate and rhythm, normal S1/S2, no murmurs Abdomen: soft, nontender, nondistended. Normoactive bowel sounds. / Rectal: Refused and deferred. Extremities: No Cyanosis , clubbing or edema. Bilateral stumps intact with chaitanya, LUE piccline. 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 12.10/05 Small lung cavitary lesion/ likely due to PNA cavitary/aspiration PNA acute encephalopathy, likely secondary to sepsis atrial fibrillation with rapid ventricular response borderline hypotension- resolved acute DVT R SFV hepatitis C hypertension coronary artery disease history of CVA dementia bipolar disorder protein calorie malnutrition anemia Plan: Abx: Levaquin and Flagyl F/U with ID recommendations wound care Lovenox injection. On Neurontin 100 mg TID Transfuse [address] chest: IMPRESSION: * Interval resolution of the cavitary component associated with the previously described anterior right upper lobe opacity. It is slightly decreased in size and more nodular in appearance on today's exam. Additional patchy opacities in the posterior right upper lobe are also slightly decreased in size and appear more nodular (previously were groundglass). Findings likely related to evolving infectious or inflammatory lesions however continued follow-up is recommended to assure resolution/exclude the possibility of neoplastic etiologies. * Small bilateral pleural effusions and adjacent compressive atelectasis in the bilateral posterior lower lobes. * Cardiomegaly and coronary artery disease. * Debris within the esophagus to the level of the petros. Note this isn't considered a risk for aspiration. Equivocal esophageal wall thickening again noted. Again, correlation with endoscopy can be obtained. * Previously described lesion in the spleen better appreciated on the prior contrast-enhanced exam. It appears grossly unchanged. * Unchanged borderline retroperitoneal and retrocrural adenopathy. Pedro Caban MD Jun 09, 2018 14:21
[2018-06-09 16:00] VITALS: BP 149/92
--- NOTE | 2018-06-09 16:30 | Infectious Diseases Prog Note ---
Assessment/Plan Assessment/Plan Assessment/Plan 68 yo male who was transferred from [place] where he initially presented for AMS from [facility]. Low grade fever, SP Leukocytosis ,recurrent- SP Small lung cavitary lesion/ PNA- suspect likely to aspiration; lower suspicion for TB and/or fungal etiologies -06/05 CXR: Improved right-sided pleural effusion and basilar parenchymal opacities, over 6 days. Persistent left-sided pleural effusion. -CT c/a/p: 10 mm opacity in the peripheral anterolateral right upper lobe with small central cavitation. Patchy groundglass opacity in the posterior right upper lobe. Suspect that these represent inflammatory/infectious lesions, but neoplastic etiology of either is certainly possible. Large left and moderate right pleural effusions. Resultant compressive atelectasis of portions of the lower lobes. Equivocal distal esophageal wall thickening, could indicate esophagitis if real -sp cx usual resp noah -AFB sp cx; smear neg x4; MTB PCR neg -TB spot + -Neg Crag serum, legionella ag urine, Blasto ab, Histoplasma ab Chronic Hep C- VL 3.2 million copies -CT abd- liver unremarkable -Hep Bc ab+, Not immune for Hep A Sepsis 2/2 to bacteremia (at OSH) Likely source is skin ulcer Blood Cx 05/12/18 at [place] [facility] -Bcx 05/12 and (here) NTD 2d echo: no vegetations 05/15 CXR: Right midlung nodule. Absence of this finding on previous study makes this more likely to be a focus of inflammation, but rapidly growing neoplasm not excludable. Left basilar hazy opacity. Most likely a moderate to large pleural effusion.Component of infiltrate or atelectasis is also possible 05/12 CXR: Asymmetric ill-defined confluent groundglass opacity within the left mid/inferior lung, of uncertain etiology. B/l LE necrotic ulcer and toes- acute on chronci, ischemic w/ likely superinfection- likely non-salvageable per surgery -05/23 SP B/l BKA Afib w/ RVR Encephalopathy , improving -CT head w/wo: No acute intracranial abnormalities. Mild atrophy of the brain. Nonspecific white matter hypoattenuation probably due to chronic small vessel disease. Likely secondary to sepsis Cerebrovascular accident. Hypertension. Sacral decubitus ulcers. Bipolar disorder. Coronary artery disease. Plan - Continue Levaquin #14(abx d#27) and flagyl #20 for cavitary/aspiration PNA -low threshold to switch Cefepime and Flagyl to Meropenem if decompensates -05/26 SP IV Vancomycin #15, Cefepime #15 -Per Dept of Public health and to aid on discharge planning back to SNF, will cont empiric TB regimen with DONN (started on 05/26- ); Levaquin instead of Rifampin or Rifabutin given multiple drug interactions of Rifampin (w/ Amiodarone, quetiapine, metoprolol) -Dept of wants to treat empirically until final AFB culture results -monitor LFTs -f/u u/a w/ reflex, Bcx x2 -EGK monitor QTc -Airborne isolation -f/u AFB sp cx,MTB PCR x1 -f/u cocci ab, fungal sp cx, - f/u Blood Cx - Wound care - Monitor CBC and Temps -f/u sp cx, u/a w/ reflex -Cdiff if diarrhea -Sx f/u -Discharge approval per Dept of Health -f/u CT chest 06/08 Thank you for this consult. We will continue to follow the patient during this hospitalization. Discussed withRN Subjective Allergies: Coded Allergies: MILK (Verified Allergy, Unknown, 02/02/18) Subjective afebrile recurrent leukocytosis , imrpoving more alert at 2l NC Objective Vital Signs Last 24 Hour Vital Signs Date Time Temp Pulse Resp B/P (MAP) Pulse Ox O2 Delivery O2 Flow Rate FiO2 06/09/18 14:13 98.1 06/09/18 14:13 98.1 06/09/18 12:00 98.1 74 20 120/68 (85) 100 06/09/18 09:55 98 Nasal Cannula 2.0 28 06/09/18 09:55 Nasal Cannula 2.0 28 06/09/18 09:55 72 16 Nasal Cannula 2.0 28 06/09/18 09:36 94 141/75 06/09/18 09:36 94 06/09/18 09:00 Nasal Cannula 2.0 Nasal Cannula 2.0 06/09/18 08:00 98.1 94 20 141/75 (97) 100 06/09/18 04:00 98.6 77 20 132/91 (105) 95 06/09/18 00:00 97.5 60 18 106/58 (74) 95 06/08/18 21:42 108 148/75 06/08/18 21:22 66 16 Nasal Cannula 2.0 28 06/08/18 21:00 Nasal Cannula 2.0 Nasal Cannula 2.0 06/08/18 20:00 99.0 108 18 148/75 (99) 99 06/08/18 16:33 98.1 Height (Feet): 6 Height (Inches): 5.00 Weight (Pounds): 173 Objective Gen: NAD. Mumbling HEENT: NCAT, MMM, EOMI, No Oral lesion, no scleral icterus NECK: full range of motion, supple, no meningismus, No LAD, No JVD LUNGS: CTAB, No W/C, No Accessory muscle use CARDS: RRR, S1, S2, No M/R/G ABD: Soft, NT, ND, No R/G, + BS, No HSM, No Masses : Deferred Ext: C/C/E, Pulses 2+ B/L (DP, Rad) NEURO: A/O x 0, Strength and Sensation Grossly intact PSYCH: mood/affect normal SKIN: Left foot wound. No purulent drainage, Feet now bandaged Microbiology Date/Time Source Procedure Growth Status 06/07/18 19:30 Blood Blood Culture - Preliminary NO GROWTH AFTER 24 HOURS Resulted 06/07/18 19:15 Blood Blood Culture - Preliminary NO GROWTH AFTER 24 HOURS Resulted Laboratory Tests Test 06/08/18 18:10 06/09/18 06:35 Urine Color [place] Urine Appearance Clear Urine pH 7 (4.5-8.0) Urine Specific [place] 1.010 (1.005-1.035) Urine Protein Negative (NEGATIVE) Urine Glucose (UA) Negative (NEGATIVE) Urine Ketones Negative (NEGATIVE) Urine Blood Negative (NEGATIVE) Urine Nitrite Positive (NEGATIVE) H Urine Bilirubin Negative (NEGATIVE) Urine Ictotest Negative (NEGATIVE) Urine Urobilinogen Normal MG/DL (0.0-1.0) Urine Leukocyte Esterase 3+ (NEGATIVE) H Urine RBC 2-4 /HPF (0 - 0) H Urine WBC 2-4 /HPF (0 - 0) Urine Squamous Epithelial Cells Moderate /LPF (NONE/OCC) H Urine Bacteria Few /HPF (NONE) White Blood Count 12.1 K/UL (4.8-10.8) H Red Blood Count 2.70 M/UL (4.70-6.10) L Hemoglobin 7.8 G/DL (14.2-18.0) L Hematocrit 24.9 % (42.0-52.0) L Mean Corpuscular Volume 92 FL (80-99) Mean Corpuscular Hemoglobin 28.9 PG (27.0-31.0) Mean Corpuscular Hemoglobin Concent 31.3 G/DL (32.0-36.0) L Red Cell Distribution Width 13.6 % (11.6-14.8) Platelet Count 268 K/UL (150-450) Mean Platelet Volume 5.1 FL (6.5-10.1) L Neutrophils (%) (Auto) % (45.0-75.0) Lymphocytes (%) (Auto) % (20.0-45.0) Monocytes (%) (Auto) % (1.0-10.0) Eosinophils (%) (Auto) % (0.0-3.0) Basophils (%) (Auto) % (0.0-2.0) Differential Total Cells Counted 100 Neutrophils % (Manual) 73 % (45-75) Lymphocytes % (Manual) 19 % (20-45) L Monocytes % (Manual) 8 % (1-10) Eosinophils % (Manual) 0 % (0-3) Basophils % (Manual) 0 % (0-2) Band Neutrophils 0 % (0-8) Platelet Estimate Adequate Platelet Morphology Normal Hypochromasia 3+ Anisocytosis 1+ Current Medications Medications (Trade) Dose Ordered Sig/Erlin Route PRN Reason Start Time Stop Time Status Last Admin Dose Admin Acetaminophen (Tylenol) 650 mg Q4H PRN ORAL TEMP>100.5 05/31/18 08:45 06/11/18 16:44 Al Hydroxide/Mg Hydroxide (Mylanta) 15 ml Q6H PRN ORAL DYSPEPSIA 05/26/18 18:30 06/22/18 18:15 Amiodarone HCl (Cordarone) 200 mg DAILY ORAL 05/27/18 09:00 06/17/18 08:59 06/09/18 09:36 Apixaban (Eliquis) 5 mg Q12HR ORAL 06/05/18 21:00 07/05/18 20:59 06/09/18 09:37 Chlorhexidine Gluconate (Yari-Hex 2%) 1 applic DAILY@2000 TOPIC 05/26/18 20:00 06/23/18 19:59 06/08/18 21:41 Digoxin (Lanoxin) 0.125 mg DAILY ORAL 05/27/18 09:00 06/12/18 08:59 06/09/18 09:36 Diphenhydramine HCl (Benadryl) 25 mg Q8H PRN ORAL Itching/Pruritis 05/26/18 16:46 06/22/18 16:45 06/05/18 16:53 Docusate Sodium (Colace) 100 mg TWICE A DAY ORAL 05/26/18 18:00 06/22/18 17:59 06/09/18 09:36 Ethambutol HCl (Myambutol) 1,200 mg DAILY ORAL 05/27/18 09:00 06/25/18 13:59 06/09/18 09:00 Gabapentin (Neurontin) 100 mg THREE TIMES A DAY ORAL 05/26/18 18:00 06/11/18 17:59 06/09/18 13:43 Hydromorphone HCl (Dilaudid) 0.5 mg Q3H PRN IVP FOR MODERATE PAIN (4-6) 06/06/18 14:30 06/13/18 14:29 06/09/18 13:43 Hydromorphone HCl (Dilaudid) 1 mg Q3H PRN IVP Moderate Pain (Pain Scale 4-6) 06/06/18 16:00 06/14/18 03:59 Hydromorphone HCl (Dilaudid) 2 mg Q3HR PRN IVP Severe Pain (Pain Scale 7-10) 06/06/18 22:30 06/13/18 22:29 06/08/18 21:56 Isoniazid (Inh) 300 mg DAILY ORAL 05/27/18 09:00 06/25/18 13:59 06/09/18 09:35 Levofloxacin (Levaquin) 500 mg DAILY ORAL 06/09/18 09:00 06/14/18 08:59 06/09/18 09:38 Lorazepam (Ativan 2mg/ml 1ml) 1 mg Q4H PRN IV For Anxiety 06/06/18 17:15 06/14/18 18:00 Magnesium Hydroxide (Mom) 30 ml BIDPRN PRN ORAL Constipation 05/26/18 18:30 06/22/18 18:15 Metoprolol Tartrate (Lopressor) 50 mg Q12HR ORAL 05/26/18 21:00 06/11/18 20:59 06/09/18 09:36 Metronidazole (Flagyl) 500 mg Q8HR ORAL 06/08/18 22:00 06/15/18 21:59 06/09/18 13:43 Ondansetron HCl (Zofran) 4 mg Q6H PRN IVP Nausea & Vomiting 05/26/18 18:30 06/22/18 18:15 Polyethylene Glycol (Miralax) 17 gm DAILY ORAL 05/27/18 09:00 06/16/18 10:59 06/09/18 09:00 Pregabalin (Lyrica) 25 mg THREE TIMES A DAY ORAL 06/03/18 18:00 07/03/18 17:59 06/09/18 13:44 Pyrazinamide (Pza) 1,500 mg DAILY ORAL 05/27/18 09:00 06/25/18 13:59 06/09/18 09:38 Pyridoxine HCl (Vitamin B6) 50 mg DAILY ORAL 05/27/18 09:00 06/25/18 13:59 06/09/18 09:36 Quetiapine Fumarate (SEROquel) 100 mg BEDTIME ORAL 05/26/18 21:00 06/11/18 20:59 06/08/18 21:42 Sennosides (Senokot) 8.6 mg BIDPRN PRN ORAL Constipation 05/26/18 18:30 06/22/18 18:15 Sodium Hypochlorite (Dakin's Quarter Strength) 1 applic DAILY TOPIC 05/27/18 09:00 06/25/18 16:00 06/09/18 09:39 Alma Elkins M.D. Jun 09, 2018 16:30
[2018-06-09 20:00] VITALS: BP 128/70
[2018-06-09] MEDS: Dyna-Hex 2% Top Sol 2oz TOPIC SCH (22:12)
[2018-06-10] VITALS: BP 144/87
--- NOTE | 2018-06-10 01:15 | General Progress Note ---
Assessment/Plan Problem List: (1) Bipolar disorder ICD Codes: F31.9 - Bipolar disorder, unspecified SNOMED: 12598503 (2) encephalopathy Assessment/Plan start Seroquel the pt lacks capacity to make decisions Subjective Date patient seen: Jun 09, 2018 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: Reports: anxiety, depressed, emotional problems Allergies: Coded Allergies: MILK (Verified Allergy, Unknown, 02/02/18) Subjective the pt is the same with cognitive impairment no agitation Objective Last 24 Hour Vital Signs Date Time Temp Pulse Resp B/P (MAP) Pulse Ox O2 Delivery O2 Flow Rate FiO2 06/09/18 22:17 57 128/70 06/09/18 21:00 Nasal Cannula 2.0 Nasal Cannula 2.0 06/09/18 20:28 76 16 Nasal Cannula 2.0 28 06/09/18 20:28 Nasal Cannula 2.0 28 06/09/18 20:28 98 Nasal Cannula 2.0 28 06/09/18 20:00 98.4 57 20 128/70 (89) 100 06/09/18 19:13 96.8 06/09/18 17:50 96.8 06/09/18 16:00 96.8 79 20 149/92 (111) 100 06/09/18 14:13 98.1 06/09/18 12:00 98.1 74 20 120/68 (85) 100 06/09/18 09:55 98 Nasal Cannula 2.0 28 06/09/18 09:55 Nasal Cannula 2.0 28 06/09/18 09:55 72 16 Nasal Cannula 2.0 06/09/18 09:36 94 141/75 06/09/18 09:36 94 06/09/18 09:00 Nasal Cannula 2.0 Nasal Cannula 2.0 06/09/18 08:00 98.1 94 20 141/75 (97) 100 06/09/18 04:00 98.6 77 20 132/91 (105) 95 Intake and Output 06/09/18 06/10/18 19:00 07:00 Intake Total 480 ml Balance 480 ml Intake Oral 480 ml # Voids 3 # Bowel Movements 3 Laboratory Tests 06/09/18 06:35: White Blood Count 12.1H, Red Blood Count 2.70L, Hemoglobin 7.8L, Hematocrit 24.9L, Mean Corpuscular Volume 92, Mean Corpuscular Hemoglobin 28.9, Mean Corpuscular Hemoglobin Concent 31.3L, Red Cell Distribution Width 13.6, Platelet Count 268, Mean Platelet Volume 5.1L, Neutrophils (%) (Auto) , Lymphocytes (%) (Auto) , Monocytes (%) (Auto) , Eosinophils (%) (Auto) , Basophils (%) (Auto) , Differential Total Cells Counted 100, Neutrophils % ( Manual) 73, Lymphocytes % (Manual) 19L, Monocytes % (Manual) 8, Eosinophils % ( Manual) 0, Basophils % (Manual) 0, Band Neutrophils 0, Platelet Estimate Adequate, Platelet Morphology Normal, Hypochromasia 3+, Anisocytosis 1+ Height (Feet): 6 Height (Inches): 5.00 Weight (Pounds): 173 General Appearance: alert, confused, agitated Julissa Still MD Jun 10, 2018 01:15
[2018-06-10 04:00] VITALS: BP 134/76
[2018-06-10] MEDS: metroNIDAZOLE 500mg tab ORAL SCH ×3 (05:13→21:37)
[2018-06-10 07:38] LABS: ALANINE AMINOTRANSFERASE 7 U/L (12-78); ALBUMIN 1.5 G/DL (3.4-5.0); ALBUMIN/GLOBULIN RATIO 0.3 (1.0-2.7); ALKALINE PHOSPHATASE 114 U/L (46-116); ANION GAP 2 mmol/L (5-15); ASPARTATE AMINO TRANSFERASE 19 U/L (15-37); BILIRUBIN,TOTAL 0.7 MG/DL (0.2-1.0); BLOOD UREA NITROGEN 11 mg/dL (7-18); CALCIUM 7.7 MG/DL (8.5-10.1); CARBON DIOXIDE 32 MMOL/L (21-32); CHLORIDE 105 MMOL/L (98-107); CREATININE 0.7 MG/DL (0.55-1.30); POTASSIUM 3.7 MMOL/L (3.5-5.1); SODIUM 139 MMOL/L (136-145)
[2018-06-10 08:00] VITALS: BP 140/70
[2018-06-10] MEDS: Miralax 17gm pkt ORAL SCH (08:42)
[2018-06-10] MEDS: Docusate 100mg cap ORAL SCH ×2 (08:42→17:27)
[2018-06-10] MEDS: Dakin's 0.125% Soln (Quarter Strength) 16oz TOPIC SCH (08:42)
[2018-06-10] MEDS: Lyrica 25mg cap ORAL SCH ×3 (08:43→17:28)
[2018-06-10] MEDS: Isoniazid 300mg tab ORAL SCH (08:43)
[2018-06-10] MEDS: Levofloxacin 500mg tab ORAL SCH (08:44)
[2018-06-10] MEDS: Digoxin 0.125mg tab ORAL SCH (08:44)
[2018-06-10] MEDS: Amiodarone 200mg tab ORAL SCH (08:45)
[2018-06-10] MEDS: Eliquis 2.5mg tablet ORAL SCH ×2 (08:45→21:36)
[2018-06-10] MEDS: Metoprolol Tartrate 50mg tab ORAL SCH ×2 (08:45→21:36)
[2018-06-10] MEDS: Pyridoxine 50mg tab ORAL SCH (08:45)
--- NOTE | 2018-06-10 10:07 | Infectious Diseases Prog Note ---
Assessment/Plan Assessment/Plan Assessment/Plan 68 yo male who was transferred from [place] where he initially presented for AMS from [facility]. Low grade fever, SP Leukocytosis ,recurrent- -Bcx NTD Small lung cavitary lesion/ PNA- suspect likely to aspiration; lower suspicion for TB and/or fungal etiologies -06/05 CXR: Improved right-sided pleural effusion and basilar parenchymal opacities, over 6 days. Persistent left-sided pleural effusion. -CT c/a/p: 10 mm opacity in the peripheral anterolateral right upper lobe with small central cavitation. Patchy groundglass opacity in the posterior right upper lobe. Suspect that these represent inflammatory/infectious lesions, but neoplastic etiology of either is certainly possible. Large left and moderate right pleural effusions. Resultant compressive atelectasis of portions of the lower lobes. Equivocal distal esophageal wall thickening, could indicate esophagitis if real -sp cx usual resp noah -AFB sp cx; smear neg x4; MTB PCR neg -TB spot + -Neg Crag serum, legionella ag urine, Blasto ab, Histoplasma ab Chronic Hep C- VL 3.2 million copies -CT abd- liver unremarkable -Hep Bc ab+, Not immune for Hep A Sepsis 2/2 to bacteremia (at OSH) Likely source is skin ulcer Blood Cx 05/12/18 at [place] [facility] -Bcx 05/12 and (here) NTD 2d echo: no vegetations 05/15 CXR: Right midlung nodule. Absence of this finding on previous study makes this more likely to be a focus of inflammation, but rapidly growing neoplasm not excludable. Left basilar hazy opacity. Most likely a moderate to large pleural effusion.Component of infiltrate or atelectasis is also possible 05/12 CXR: Asymmetric ill-defined confluent groundglass opacity within the left mid/inferior lung, of uncertain etiology. B/l LE necrotic ulcer and toes- acute on chronci, ischemic w/ likely superinfection- likely non-salvageable per surgery -05/23 SP B/l BKA Afib w/ RVR Encephalopathy , improving -CT head w/wo: No acute intracranial abnormalities. Mild atrophy of the brain. Nonspecific white matter hypoattenuation probably due to chronic small vessel disease. Likely secondary to sepsis Cerebrovascular accident. Hypertension. Sacral decubitus ulcers. Bipolar disorder. Coronary artery disease. Plan - Continue Levaquin #15(abx d#28) and flagyl #21 for cavitary/aspiration PNA -low threshold to switch Cefepime and Flagyl to Meropenem if decompensates -05/26 SP IV Vancomycin #15, Cefepime #15 -Per Dept of Public health and to aid on discharge planning back to SNF, will cont empiric TB regimen with DONN (started on 05/26- ); Levaquin instead of Rifampin or Rifabutin given multiple drug interactions of Rifampin (w/ Amiodarone, quetiapine, metoprolol) -Dept of wants to treat empirically until final AFB culture results -monitor LFTs -f/u Bcx x2 -EGK monitor QTc -Airborne isolation -f/u AFB sp cx -f/u cocci ab, fungal sp cx, - Wound care - Monitor CBC and Temps -Cdiff if diarrhea -Sx f/u -Discharge approval per Dept of Health Thank you for this consult. We will continue to follow the patient during this hospitalization. Discussed with RN Subjective Allergies: Coded Allergies: MILK (Verified Allergy, Unknown, 02/02/18) Subjective afebrile recurrent leukocytosis , imrpoving more alert at 2l NC LFts normal Objective Vital Signs Last 24 Hour Vital Signs Date Time Temp Pulse Resp B/P (MAP) Pulse Ox O2 Delivery O2 Flow Rate FiO2 06/10/18 08:45 75 140/70 06/10/18 08:44 75 06/10/18 08:07 100 Nasal Cannula 2.0 28 06/10/18 08:07 75 16 Nasal Cannula 2.0 28 06/10/18 08:07 Nasal Cannula 2.0 28 06/10/18 08:00 98.1 82 18 140/70 (93) 100 06/10/18 04:00 98.2 72 20 134/76 (95) 100 06/10/18 00:00 99.0 58 19 144/87 (106) 100 06/09/18 22:17 57 128/70 06/09/18 21:00 Nasal Cannula 2.0 Nasal Cannula 2.0 06/09/18 20:28 76 16 Nasal Cannula 2.0 28 06/09/18 20:28 Nasal Cannula 2.0 28 06/09/18 20:28 98 Nasal Cannula 2.0 28 06/09/18 20:00 98.4 57 20 128/70 (89) 100 06/09/18 19:13 96.8 06/09/18 17:50 96.8 06/09/18 16:00 96.8 79 20 149/92 (111) 100 06/09/18 14:13 98.1 06/09/18 12:00 98.1 74 20 120/68 (85) 100 Height (Feet): 6 Height (Inches): 5.00 Weight (Pounds): 170 Objective Gen: NAD. Mumbling HEENT: NCAT, MMM, EOMI, No Oral lesion, no scleral icterus NECK: full range of motion, supple, no meningismus, No LAD, No JVD LUNGS: CTAB, No W/C, No Accessory muscle use CARDS: RRR, S1, S2, No M/R/G ABD: Soft, NT, ND, No R/G, + BS, No HSM, No Masses : Deferred Ext: C/C/E, Pulses 2+ B/L (DP, Rad) NEURO: A/O x 0, Strength and Sensation Grossly intact PSYCH: mood/affect normal SKIN: Left foot wound. No purulent drainage, Feet now bandaged Microbiology Date/Time Source Procedure Growth Status 06/07/18 19:30 Blood Blood Culture - Preliminary NO GROWTH AFTER 48 HOURS Resulted 06/07/18 19:15 Blood Blood Culture - Preliminary NO GROWTH AFTER 48 HOURS Resulted Laboratory Tests Test 06/10/18 06:50 Sodium Level 139 MMOL/L (136-145) Potassium Level 3.7 MMOL/L (3.5-5.1) Chloride Level 105 MMOL/L (98-107) Carbon Dioxide Level 32 MMOL/L (21-32) Anion Gap 2 mmol/L (5-15) L Blood Urea Nitrogen 11 mg/dL (7-18) Creatinine 0.7 MG/DL (0.55-1.30) Estimat Glomerular Filtration Rate > 60 mL/min (>60) Glucose Level 94 MG/DL (74-106) Calcium Level 7.7 MG/DL (8.5-10.1) L Total Bilirubin 0.7 MG/DL (0.2-1.0) Aspartate Amino Transf (AST/SGOT) 19 U/L (15-37) Alanine Aminotransferase (ALT/SGPT) 7 U/L (12-78) L Alkaline Phosphatase 114 U/L (46-116) Total Protein 5.9 G/DL (6.4-8.2) L Albumin 1.5 G/DL (3.4-5.0) L Globulin 4.4 g/dL Albumin/Globulin Ratio 0.3 (1.0-2.7) L Current Medications Medications (Trade) Dose Ordered Sig/Erlin Route PRN Reason Start Time Stop Time Status Last Admin Dose Admin Acetaminophen (Tylenol) 650 mg Q4H PRN ORAL TEMP>100.5 05/31/18 08:45 06/11/18 16:44 Al Hydroxide/Mg Hydroxide (Mylanta) 15 ml Q6H PRN ORAL DYSPEPSIA 05/26/18 18:30 06/22/18 18:15 Amiodarone HCl (Cordarone) 200 mg DAILY ORAL 05/27/18 09:00 06/17/18 08:59 06/10/18 08:45 Apixaban (Eliquis) 5 mg Q12HR ORAL 06/05/18 21:00 07/05/18 20:59 06/10/18 08:45 Chlorhexidine Gluconate (Yari-Hex 2%) 1 applic DAILY@1999 TOPIC 05/26/18 20:00 06/23/18 19:59 06/09/18 22:12 Digoxin (Lanoxin) 0.125 mg DAILY ORAL 05/27/18 09:00 06/12/18 08:59 06/10/18 08:44 Diphenhydramine HCl (Benadryl) 25 mg Q8H PRN ORAL Itching/Pruritis 05/26/18 16:46 06/22/18 16:45 06/05/18 16:53 Docusate Sodium (Colace) 100 mg TWICE A DAY ORAL 05/26/18 18:00 06/22/18 17:59 06/10/18 08:42 Ethambutol HCl (Myambutol) 1,200 mg DAILY ORAL 05/27/18 09:00 06/25/18 13:59 06/10/18 08:44 Gabapentin (Neurontin) 100 mg THREE TIMES A DAY ORAL 05/26/18 18:00 06/11/18 17:59 06/10/18 08:44 Hydromorphone HCl (Dilaudid) 0.5 mg Q3H PRN IVP FOR MODERATE PAIN (4-6) 06/06/18 14:30 06/13/18 14:29 06/09/18 13:43 Hydromorphone HCl (Dilaudid) 1 mg Q3H PRN IVP Moderate Pain (Pain Scale 4-6) 06/06/18 16:00 06/14/18 03:59 06/09/18 18:43 Hydromorphone HCl (Dilaudid) 2 mg Q3HR PRN IVP Severe Pain (Pain Scale 7-10) 06/06/18 22:30 06/13/18 22:29 06/10/18 08:45 Isoniazid (Inh) 300 mg DAILY ORAL 05/27/18 09:00 06/25/18 13:59 06/10/18 08:43 Levofloxacin (Levaquin) 500 mg DAILY ORAL 06/09/18 09:00 06/14/18 08:59 06/10/18 08:44 Lorazepam (Ativan 2mg/ml 1ml) 1 mg Q4H PRN IV For Anxiety 06/06/18 17:15 06/14/18 18:00 Magnesium Hydroxide (Mom) 30 ml BIDPRN PRN ORAL Constipation 05/26/18 18:30 06/22/18 18:15 Metoprolol Tartrate (Lopressor) 50 mg Q12HR ORAL 05/26/18 21:00 06/11/18 20:59 06/10/18 08:45 Metronidazole (Flagyl) 500 mg Q8HR ORAL 06/08/18 22:00 06/15/18 21:59 06/10/18 05:13 Ondansetron HCl (Zofran) 4 mg Q6H PRN IVP Nausea & Vomiting 05/26/18 18:30 06/22/18 18:15 Polyethylene Glycol (Miralax) 17 gm DAILY ORAL 05/27/18 09:00 06/16/18 10:59 06/10/18 08:42 Pregabalin (Lyrica) 25 mg THREE TIMES A DAY ORAL 06/03/18 18:00 07/03/18 17:59 06/10/18 08:43 Pyrazinamide (Pza) 1,500 mg DAILY ORAL 05/27/18 09:00 06/25/18 13:59 06/10/18 08:44 Pyridoxine HCl (Vitamin B6) 50 mg DAILY ORAL 05/27/18 09:00 06/25/18 13:59 06/10/18 08:45 Quetiapine Fumarate (SEROquel) 100 mg BEDTIME ORAL 05/26/18 21:00 06/11/18 20:59 06/09/18 22:13 Sennosides (Senokot) 8.6 mg BIDPRN PRN ORAL Constipation 05/26/18 18:30 06/22/18 18:15 Sodium Hypochlorite (Dakin's Quarter Strength) 1 applic DAILY TOPIC 05/27/18 09:00 06/25/18 16:00 06/10/18 08:42 Alma Elkins M.D. Jun 10, 2018 10:07
[2018-06-10 12:00] VITALS: BP 110/77
--- NOTE | 2018-06-10 12:28 | Cardiology Progress Note ---
Assessment/Plan Status: stable Assessment/Plan Assessment/Plan Assessment/Plan 1. Paroxysmal Atrial fib/flutter with RVR. Converted to SR when on tele. Continue Digoxin 0.125 daily, Metoprolol 50 bid , Amiodarone 200 daily and Eliquis 5 bid Check Dig level in 2. Fever, cough, sepsis on antibiotic and still in respiratory isolation. On INH, ETB, PZA 3. History of dementia and severe psychosis, on Seroquel. 4. Severe bilateral leg ulcers and sacral decubitus. S/P Bilateral AKA by Dr. Osuna -Discharge approval per Dept of Health Subjective Cardiovascular: Reports: no symptoms Respiratory: Reports: no symptoms Gastrointestinal/Abdominal: Reports: no symptoms Genitourinary: Reports: no symptoms Subjective C[employer]AGE FOR [employer] no acute events, Started blood transfusion at 1505 No blood transfusion reaction noted. Objective Last 24 Hour Vital Signs Date Time Temp Pulse Resp B/P (MAP) Pulse Ox O2 Delivery O2 Flow Rate FiO2 06/10/18 09:15 98.1 06/10/18 09:13 98.1 06/10/18 09:00 Nasal Cannula 2.0 Nasal Cannula 2.0 06/10/18 08:45 75 140/70 06/10/18 08:44 75 06/10/18 08:07 100 Nasal Cannula 2.0 28 06/10/18 08:07 75 16 Nasal Cannula 2.0 28 06/10/18 08:07 Nasal Cannula 2.0 28 06/10/18 08:00 98.1 82 18 140/70 (93) 100 06/10/18 04:00 98.2 72 20 134/76 (95) 100 06/10/18 00:00 99.0 58 19 144/87 (106) 100 06/09/18 22:17 57 128/70 06/09/18 21:00 Nasal Cannula 2.0 Nasal Cannula 2.0 06/09/18 20:28 76 16 Nasal Cannula 2.0 28 06/09/18 20:28 Nasal Cannula 2.0 28 06/09/18 20:28 98 Nasal Cannula 2.0 28 06/09/18 20:00 98.4 57 20 128/70 (89) 100 06/09/18 19:13 96.8 06/09/18 16:00 96.8 79 20 149/92 (111) 100 06/09/18 14:13 98.1 General Appearance: no apparent distress, alert EENT: PERRL/EOMI, normal ENT inspection, TMs normal Neck: non-tender, normal alignment, supple, normal inspection Rhythm: NSR Cardiovascular: normal peripheral pulses, normal rate, regular rhythm Respiratory/Chest: chest wall non-tender, lungs clear, normal breath sounds Abdomen: normal bowel sounds, non tender, soft, no organomegaly, no mass Extremities: normal range of motion, non-tender, normal inspection Neurologic: independent video producer II-XII grossly normal, no motor/sensory deficits Intake and Output 06/09/18 06/10/18 19:00 07:00 Intake Total 480 ml Balance 480 ml Intake Oral 480 ml # Voids 3 1 # Bowel Movements 3 Laboratory Tests Test 06/10/18 06:50 Sodium Level 139 MMOL/L (136-145) Potassium Level 3.7 MMOL/L (3.5-5.1) Chloride Level 105 MMOL/L (98-107) Carbon Dioxide Level 32 MMOL/L (21-32) Anion Gap 2 mmol/L (5-15) L Blood Urea Nitrogen 11 mg/dL (7-18) Creatinine 0.7 MG/DL (0.55-1.30) Estimat Glomerular Filtration Rate > 60 mL/min (>60) Glucose Level 94 MG/DL (74-106) Calcium Level 7.7 MG/DL (8.5-10.1) L Total Bilirubin 0.7 MG/DL (0.2-1.0) Aspartate Amino Transf (AST/SGOT) 19 U/L (15-37) Alanine Aminotransferase (ALT/SGPT) 7 U/L (12-78) L Alkaline Phosphatase 114 U/L (46-116) Total Protein 5.9 G/DL (6.4-8.2) L Albumin 1.5 G/DL (3.4-5.0) L Globulin 4.4 g/dL Albumin/Globulin Ratio 0.3 (1.0-2.7) L Microbiology Date/Time Source Procedure Growth Status 06/07/18 19:30 Blood Blood Culture - Preliminary NO GROWTH AFTER 48 HOURS Resulted 06/07/18 19:15 Blood Blood Culture - Preliminary NO GROWTH AFTER 48 HOURS Resulted Vinny Tobin MD Jun 10, 2018 12:28
--- NOTE | 2018-06-10 15:06 | Internal Med Progress Note ---
Subjective Date of Service: Jun 10, 2018 Physician Name Jackson,Daniel Attending Physician Pedro Caban MD Current Medications Medications (Trade) Dose Ordered Sig/Erlin Route PRN Reason Start Time Stop Time Status Last Admin Dose Admin Acetaminophen (Tylenol) 650 mg Q4H PRN ORAL TEMP>100.5 05/31/18 08:45 06/11/18 16:44 Al Hydroxide/Mg Hydroxide (Mylanta) 15 ml Q6H PRN ORAL DYSPEPSIA 05/26/18 18:30 06/22/18 18:15 Amiodarone HCl (Cordarone) 200 mg DAILY ORAL 05/27/18 09:00 06/17/18 08:59 06/10/18 08:45 Apixaban (Eliquis) 5 mg Q12HR ORAL 06/05/18 21:00 07/05/18 20:59 06/10/18 08:45 Chlorhexidine Gluconate (Yari-Hex 2%) 1 applic DAILY@2000 TOPIC 05/26/18 20:00 06/23/18 19:59 06/09/18 22:12 Digoxin (Lanoxin) 0.125 mg DAILY ORAL 05/27/18 09:00 06/12/18 08:59 06/10/18 08:44 Diphenhydramine HCl (Benadryl) 25 mg Q8H PRN ORAL Itching/Pruritis 05/26/18 16:46 06/22/18 16:45 06/05/18 16:53 Docusate Sodium (Colace) 100 mg TWICE A DAY ORAL 05/26/18 18:00 06/22/18 17:59 06/10/18 08:42 Ethambutol HCl (Myambutol) 1,200 mg DAILY ORAL 05/27/18 09:00 06/25/18 13:59 06/10/18 08:44 Gabapentin (Neurontin) 100 mg THREE TIMES A DAY ORAL 05/26/18 18:00 06/11/18 17:59 06/10/18 13:56 Hydromorphone HCl (Dilaudid) 0.5 mg Q3H PRN IVP FOR MODERATE PAIN (4-6) 06/06/18 14:30 06/13/18 14:29 06/09/18 13:43 Hydromorphone HCl (Dilaudid) 1 mg Q3H PRN IVP Moderate Pain (Pain Scale 4-6) 06/06/18 16:00 06/14/18 03:59 06/09/18 18:43 Hydromorphone HCl (Dilaudid) 2 mg Q3HR PRN IVP Severe Pain (Pain Scale 7-10) 06/06/18 22:30 06/13/18 22:29 06/10/18 11:47 Isoniazid (Inh) 300 mg DAILY ORAL 05/27/18 09:00 06/25/18 13:59 06/10/18 08:43 Levofloxacin (Levaquin) 500 mg DAILY ORAL 06/09/18 09:00 06/14/18 08:59 06/10/18 08:44 Lorazepam (Ativan 2mg/ml 1ml) 1 mg Q4H PRN IV For Anxiety 06/06/18 17:15 06/14/18 18:00 Magnesium Hydroxide (Mom) 30 ml BIDPRN PRN ORAL Constipation 05/26/18 18:30 06/22/18 18:15 Metoprolol Tartrate (Lopressor) 50 mg Q12HR ORAL 05/26/18 21:00 06/11/18 20:59 06/10/18 08:45 Metronidazole (Flagyl) 500 mg Q8HR ORAL 06/08/18 22:00 06/15/18 21:59 06/10/18 13:56 Ondansetron HCl (Zofran) 4 mg Q6H PRN IVP Nausea & Vomiting 05/26/18 18:30 06/22/18 18:15 Polyethylene Glycol (Miralax) 17 gm DAILY ORAL 05/27/18 09:00 06/16/18 10:59 06/10/18 08:42 Pregabalin (Lyrica) 25 mg THREE TIMES A DAY ORAL 06/03/18 18:00 07/03/18 17:59 06/10/18 13:56 Pyrazinamide (Pza) 1,500 mg DAILY ORAL 05/27/18 09:00 06/25/18 13:59 06/10/18 08:44 Pyridoxine HCl (Vitamin B6) 50 mg DAILY ORAL 05/27/18 09:00 06/25/18 13:59 06/10/18 08:45 Quetiapine Fumarate (SEROquel) 100 mg BEDTIME ORAL 05/26/18 21:00 06/11/18 20:59 06/09/18 22:13 Sennosides (Senokot) 8.6 mg BIDPRN PRN ORAL Constipation 05/26/18 18:30 06/22/18 18:15 Sodium Hypochlorite (Dakin's Quarter Strength) 1 applic DAILY TOPIC 05/27/18 09:00 06/25/18 16:00 06/10/18 08:42 Allergies: Coded Allergies: MILK (Verified Allergy, Unknown, 02/02/18) Subjective 68 YO A M admitted with altered mental status. Cover for Int Med-Dr Caban. ICU. 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 Objective Last Vital Signs Date Time Temp Pulse Resp B/P (MAP) Pulse Ox O2 Delivery O2 Flow Rate FiO2 06/10/18 14:26 98.1 06/10/18 12:00 82 20 110/77 (88) 99 06/10/18 09:00 Nasal Cannula 2.0 Nasal Cannula 2.0 06/10/18 08:07 28 Laboratory Tests Test 06/10/18 06:50 Sodium Level 139 MMOL/L (136-145) Potassium Level 3.7 MMOL/L (3.5-5.1) Chloride Level 105 MMOL/L (98-107) Carbon Dioxide Level 32 MMOL/L (21-32) Anion Gap 2 mmol/L (5-15) L Blood Urea Nitrogen 11 mg/dL (7-18) Creatinine 0.7 MG/DL (0.55-1.30) Estimat Glomerular Filtration Rate > 60 mL/min (>60) Glucose Level 94 MG/DL (74-106) Calcium Level 7.7 MG/DL (8.5-10.1) L Total Bilirubin 0.7 MG/DL (0.2-1.0) Aspartate Amino Transf (AST/SGOT) 19 U/L (15-37) Alanine Aminotransferase (ALT/SGPT) 7 U/L (12-78) L Alkaline Phosphatase 114 U/L (46-116) Total Protein 5.9 G/DL (6.4-8.2) L Albumin 1.5 G/DL (3.4-5.0) L Globulin 4.4 g/dL Albumin/Globulin Ratio 0.3 (1.0-2.7) L Microbiology Date/Time Source Procedure Growth Status 06/07/18 19:30 Blood Blood Culture - Preliminary NO GROWTH AFTER 48 HOURS Resulted 06/07/18 19:15 Blood Blood Culture - Preliminary NO GROWTH AFTER 48 HOURS Resulted Intake and Output 06/09/18 06/10/18 19:00 07:00 Intake Total 480 ml Balance 480 ml Intake Oral 480 ml # Voids 3 1 # Bowel Movements 3 Objective General Appearance: alert, thin, agitated EENT: PERRL/EOMI, normal ENT inspection Neck: non-tender, normal alignment, supple, normal inspection Cardiovascular: normal peripheral pulses, normal rate, no gallop/murmur, no JVD , irregularly irregular Respiratory/Chest: chest wall non-tender, lungs clear, normal breath sounds, no respiratory distress, no accessory muscle use Abdomen: normal bowel sounds, non tender, soft, no organomegaly, no mass Extremities: normal range of motion, non-tender Neurologic: hostel manager II-XII grossly 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 (8) Sepsis Assessment & Plan: Continue levaquin and flagyl per ID (9) UTI (urinary tract infection) Assessment & Plan: Mixed culture-continue levaquin and flagyl per ID (10) Leukocytosis (11) Deep venous thrombosis of right femoral vein Assessment & Plan: Cont Eliquis (12) Gangrene Assessment & Plan: S/P above the knee amputation Bilat lower ext 05/23/18 (13) Pneumonia Assessment & Plan: Cavitary lesion ?possible TB? Continue ethambutol, INH and PZA - See ID note Status: stable Daniel Jackson MD Jun 10, 2018 15:06
[2018-06-10 16:00] VITALS: BP 147/84
[2018-06-10 20:00] VITALS: BP 128/67
[2018-06-10] MEDS: Dyna-Hex 2% Top Sol 2oz TOPIC SCH (21:46)
--- NOTE | 2018-06-10 21:48 | General Progress Note ---
Assessment/Plan Problem List: (1) Bipolar disorder ICD Codes: F31.9 - Bipolar disorder, unspecified SNOMED: 10915219 (2) encephalopathy Assessment/Plan start Seroquel the pt lacks capacity to make decisions Subjective 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: Reports: anxiety, depressed Allergies: Coded Allergies: MILK (Verified Allergy, Unknown, 02/02/18) Subjective the pt is the same with cognitive impairment no agitation Objective Last 24 Hour Vital Signs Date Time Temp Pulse Resp B/P (MAP) Pulse Ox O2 Delivery O2 Flow Rate FiO2 06/10/18 21:36 58 128/67 06/10/18 20:00 98.1 58 20 128/67 (87) 100 06/10/18 19:22 98.1 06/10/18 17:58 98.1 06/10/18 16:00 98.1 57 20 147/84 (105) 100 06/10/18 12:17 98.1 06/10/18 12:00 98.2 82 20 110/77 (88) 99 06/10/18 09:00 Nasal Cannula 2.0 Nasal Cannula 2.0 06/10/18 08:45 75 140/70 06/10/18 08:44 75 06/10/18 08:07 100 Nasal Cannula 2.0 28 06/10/18 08:07 75 16 Nasal Cannula 2.0 28 06/10/18 08:07 Nasal Cannula 2.0 28 06/10/18 08:00 98.1 82 18 140/70 (93) 100 06/10/18 04:00 98.2 72 20 134/76 (95) 100 06/10/18 00:00 99.0 58 19 144/87 (106) 100 06/09/18 22:17 57 128/70 Intake and Output 06/09/18 06/10/18 19:00 07:00 Intake Total 480 ml Balance 480 ml Intake Oral 480 ml # Voids 3 1 # Bowel Movements 3 Laboratory Tests 06/10/18 06:50: Sodium Level 139, Potassium Level 3.7, Chloride Level 105, Carbon Dioxide Level 32, Anion Gap 2L, Blood Urea Nitrogen 11, Creatinine 0.7, Estimat Glomerular Filtration Rate > 60, Glucose Level 94, Calcium Level 7.7L, Total Bilirubin 0.7 , Aspartate Amino Transf (AST/SGOT) 19, Alanine Aminotransferase (ALT/SGPT) 7L, Alkaline Phosphatase 114, Total Protein 5.9L, Albumin 1.5L, Globulin 4.4, Albumin/Globulin Ratio 0.3L Height (Feet): 6 Height (Inches): 5.00 Weight (Pounds): 170 Julissa Still MD Jun 10, 2018 21:48
[2018-06-11] VITALS: BP 126/71
[2018-06-11 04:00] VITALS: BP 131/75
[2018-06-11] MEDS: metroNIDAZOLE 500mg tab ORAL SCH ×3 (05:13→21:55)
[2018-06-11 06:04] LABS: BASOPHILS % (AUTO) 1.1 % (0.0-2.0); EOSINOPHILS % (AUTO) 0.3 % (0.0-3.0); HEMATOCRIT 27.6 % (42.0-52.0); HEMOGLOBIN 8.7 G/DL (14.2-18.0); LYMPHOCYTES % (AUTO) 9.6 % (20.0-45.0); MEAN CORPUSCULAR VOLUME 92 FL (80-99); MONOCYTES % (AUTO) 7.2 % (1.0-10.0); NEUTROPHILS % (AUTO) 81.8 % (45.0-75.0); PLATELET COUNT 225 K/UL (150-450); RED BLOOD COUNT 3.02 M/UL (4.70-6.10); RED CELL DISTRIBUTION WIDTH 13.4 % (11.6-14.8); WHITE BLOOD COUNT 13.2 K/UL (4.8-10.8)
[2018-06-11 06:23] LABS: ALANINE AMINOTRANSFERASE 8 U/L (12-78); ALBUMIN 1.4 G/DL (3.4-5.0); ALBUMIN/GLOBULIN RATIO 0.3 (1.0-2.7); ALKALINE PHOSPHATASE 107 U/L (46-116); ANION GAP 2 mmol/L (5-15); ASPARTATE AMINO TRANSFERASE 18 U/L (15-37); BILIRUBIN,TOTAL 0.7 MG/DL (0.2-1.0); BLOOD UREA NITROGEN 12 mg/dL (7-18); CALCIUM 7.8 MG/DL (8.5-10.1); CARBON DIOXIDE 32 MMOL/L (21-32); CHLORIDE 106 MMOL/L (98-107); CREATININE 0.6 MG/DL (0.55-1.30); POTASSIUM 3.7 MMOL/L (3.5-5.1); SODIUM 140 MMOL/L (136-145)
[2018-06-11 08:00] VITALS: BP 128/77
[2018-06-11] MEDS: Digoxin 0.125mg tab ORAL SCH (09:00)
[2018-06-11] MEDS: Metoprolol Tartrate 50mg tab ORAL SCH (09:00)
[2018-06-11] MEDS: Miralax 17gm pkt ORAL SCH (09:57)
[2018-06-11] MEDS: Lyrica 25mg cap ORAL SCH ×3 (09:57→17:32)
[2018-06-11] MEDS: Isoniazid 300mg tab ORAL SCH (09:58)
[2018-06-11] MEDS: Amiodarone 200mg tab ORAL SCH (09:59)
[2018-06-11] MEDS: Pyridoxine 50mg tab ORAL SCH (09:59)
[2018-06-11] MEDS: Levofloxacin 500mg tab ORAL SCH (10:00)
[2018-06-11] MEDS: Eliquis 2.5mg tablet ORAL SCH ×2 (10:00→21:56)
[2018-06-11] MEDS: Dakin's 0.125% Soln (Quarter Strength) 16oz TOPIC SCH (10:01)
[2018-06-11] MEDS: Docusate 100mg cap ORAL SCH ×2 (10:01→17:32)
[2018-06-11 12:00] VITALS: BP 126/80
[2018-06-11 16:00] VITALS: BP 130/79
--- NOTE | 2018-06-11 16:55 | Internal Med Progress Note ---
Subjective Physician Name Pedro Caban Attending Physician Pedro Caban MD Current Medications Medications (Trade) Dose Ordered Sig/Erlin Route PRN Reason Start Time Stop Time Status Last Admin Dose Admin Al Hydroxide/Mg Hydroxide (Mylanta) 15 ml Q6H PRN ORAL DYSPEPSIA 05/26/18 18:30 06/22/18 18:15 Amiodarone HCl (Cordarone) 200 mg DAILY ORAL 05/27/18 09:00 06/17/18 08:59 06/11/18 09:59 Apixaban (Eliquis) 5 mg Q12HR ORAL 06/05/18 21:00 07/05/18 20:59 06/11/18 10:00 Chlorhexidine Gluconate (Yari-Hex 2%) 1 applic DAILY@1999 TOPIC 05/26/18 20:00 06/23/18 19:59 06/10/18 21:46 Digoxin (Lanoxin) 0.125 mg DAILY ORAL 05/27/18 09:00 06/12/18 08:59 06/10/18 08:44 Diphenhydramine HCl (Benadryl) 25 mg Q8H PRN ORAL Itching/Pruritis 05/26/18 16:46 06/22/18 16:45 06/05/18 16:53 Docusate Sodium (Colace) 100 mg TWICE A DAY ORAL 05/26/18 18:00 06/22/18 17:59 06/11/18 10:01 Ethambutol HCl (Myambutol) 1,200 mg DAILY ORAL 05/27/18 09:00 06/25/18 13:59 06/11/18 10:00 Gabapentin (Neurontin) 100 mg THREE TIMES A DAY ORAL 05/26/18 18:00 06/11/18 17:59 06/11/18 13:45 Hydromorphone HCl (Dilaudid) 2 mg Q3H PRN IVP Moderate Pain (Pain Scale 4-6) 06/10/18 16:00 06/14/18 03:59 06/11/18 13:50 Hydromorphone HCl (Dilaudid) 3 mg Q3H PRN IVP Severe Pain (Pain Scale 7-10) 06/10/18 15:15 06/17/18 15:14 06/11/18 10:18 Isoniazid (Inh) 300 mg DAILY ORAL 05/27/18 09:00 06/25/18 13:59 06/11/18 09:58 Levofloxacin (Levaquin) 500 mg DAILY ORAL 06/09/18 09:00 06/14/18 08:59 06/11/18 10:00 Lorazepam (Ativan 2mg/ml 1ml) 1 mg Q4H PRN IV For Anxiety 06/06/18 17:15 06/14/18 18:00 Magnesium Hydroxide (Mom) 30 ml BIDPRN PRN ORAL Constipation 05/26/18 18:30 06/22/18 18:15 Metoprolol Tartrate (Lopressor) 50 mg Q12HR ORAL 05/26/18 21:00 06/11/18 20:59 06/10/18 21:36 Metronidazole (Flagyl) 500 mg Q8HR ORAL 06/08/18 22:00 06/15/18 21:59 06/11/18 13:51 Ondansetron HCl (Zofran) 4 mg Q6H PRN IVP Nausea & Vomiting 05/26/18 18:30 06/22/18 18:15 Polyethylene Glycol (Miralax) 17 gm DAILY ORAL 05/27/18 09:00 06/16/18 10:59 06/11/18 09:57 Pregabalin (Lyrica) 25 mg THREE TIMES A DAY ORAL 06/03/18 18:00 07/03/18 17:59 06/11/18 13:46 Pyrazinamide (Pza) 1,500 mg DAILY ORAL 05/27/18 09:00 06/25/18 13:59 06/11/18 09:58 Pyridoxine HCl (Vitamin B6) 50 mg DAILY ORAL 05/27/18 09:00 06/25/18 13:59 06/11/18 09:59 Quetiapine Fumarate (SEROquel) 100 mg BEDTIME ORAL 05/26/18 21:00 06/11/18 20:59 06/10/18 21:36 Sennosides (Senokot) 8.6 mg BIDPRN PRN ORAL Constipation 05/26/18 18:30 06/22/18 18:15 Sodium Hypochlorite (Dakin's Quarter Strength) 1 applic DAILY TOPIC 05/27/18 09:00 06/25/18 16:00 06/11/18 10:01 Allergies: Coded Allergies: MILK (Verified Allergy, Unknown, 02/02/18) Subjective awake, alert, responsive, C/O less stumps pain, Hgb: 8.7 Objective Last Vital Signs Date Time Temp Pulse Resp B/P (MAP) Pulse Ox O2 Delivery O2 Flow Rate FiO2 06/11/18 12:00 98.8 66 18 126/80 (95) 100 06/11/18 09:00 Nasal Cannula 2.0 Nasal Cannula 2.0 06/11/18 08:14 28 Laboratory Tests Test 06/11/18 05:30 White Blood Count 13.2 K/UL (4.8-10.8) H Red Blood Count 3.02 M/UL (4.70-6.10) L Hemoglobin 8.7 G/DL (14.2-18.0) L Hematocrit 27.6 % (42.0-52.0) L Mean Corpuscular Volume 92 FL (80-99) Mean Corpuscular Hemoglobin 28.9 PG (27.0-31.0) Mean Corpuscular Hemoglobin Concent 31.6 G/DL (32.0-36.0) L Red Cell Distribution Width 13.4 % (11.6-14.8) Platelet Count 225 K/UL (150-450) Mean Platelet Volume 5.3 FL (6.5-10.1) L Neutrophils (%) (Auto) 81.8 % (45.0-75.0) H Lymphocytes (%) (Auto) 9.6 % (20.0-45.0) L Monocytes (%) (Auto) 7.2 % (1.0-10.0) Eosinophils (%) (Auto) 0.3 % (0.0-3.0) Basophils (%) (Auto) 1.1 % (0.0-2.0) Sodium Level 140 MMOL/L (136-145) Potassium Level 3.7 MMOL/L (3.5-5.1) Chloride Level 106 MMOL/L (98-107) Carbon Dioxide Level 32 MMOL/L (21-32) Anion Gap 2 mmol/L (5-15) L Blood Urea Nitrogen 12 mg/dL (7-18) Creatinine 0.6 MG/DL (0.55-1.30) Estimat Glomerular Filtration Rate > 60 mL/min (>60) Glucose Level 84 MG/DL (74-106) Calcium Level 7.8 MG/DL (8.5-10.1) L Total Bilirubin 0.7 MG/DL (0.2-1.0) Aspartate Amino Transf (AST/SGOT) 18 U/L (15-37) Alanine Aminotransferase (ALT/SGPT) 8 U/L (12-78) L Alkaline Phosphatase 107 U/L (46-116) Total Protein 5.7 G/DL (6.4-8.2) L Albumin 1.4 G/DL (3.4-5.0) L Globulin 4.3 g/dL Albumin/Globulin Ratio 0.3 (1.0-2.7) L Intake and Output 06/10/18 06/11/18 19:00 07:00 Intake Total 480 ml Balance 480 ml Intake Oral 480 ml # Voids 3 3 Objective General: No acute distress, awake and alert HEENT: NCAT, sclera anicteric, PERRL, EOMI. Neck: Supple, no significant jugular venous distention, Lungs: Fair inspiratory effort, Decrease air on bases, no Wheeze or Rales. Heart: Irregular rate and rhythm, normal S1/S2, no murmurs Abdomen: soft, nontender, nondistended. Normoactive bowel sounds. / Rectal: Refused and deferred. Extremities: No Cyanosis , clubbing or edema. Bilateral stumps intact with chaitanya, LUE piccline. 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 Small lung cavitary lesion/ likely due to PNA cavitary/aspiration PNA acute encephalopathy, likely secondary to sepsis atrial fibrillation with rapid ventricular response borderline hypotension- resolved acute DVT R SFV hepatitis C hypertension coronary artery disease history of CVA dementia bipolar disorder protein calorie malnutrition anemia Plan: Abx: Levaquin and Flagyl F/U with ID recommendations wound care Lovenox injection. On Neurontin 100 mg TID -Per Dept of Public health and to aid on discharge planning back to SNF, will cont empiric TB regimen with DONN (started on 05/26- ); Levaquin instead of Rifampin or Rifabutin given multiple drug interactions of Rifampin (w/ Amiodarone, quetiapine, metoprolol) -Dept of wants to treat empirically until final AFB culture results -monitor LFTs CT chest: IMPRESSION: * Interval resolution of the cavitary component associated with the previously described anterior right upper lobe opacity. It is slightly decreased in size and more nodular in appearance on today's exam. Additional patchy opacities in the posterior right upper lobe are also slightly decreased in size and appear more nodular (previously were groundglass). Findings likely related to evolving infectious or inflammatory lesions however continued follow-up is recommended to assure resolution/exclude the possibility of neoplastic etiologies. * Small bilateral pleural effusions and adjacent compressive atelectasis in the bilateral posterior lower lobes. * Cardiomegaly and coronary artery disease. * Debris within the esophagus to the level of the petros. Note this isn't considered a risk for aspiration. Equivocal esophageal wall thickening again noted. Again, correlation with endoscopy can be obtained. * Previously described lesion in the spleen better appreciated on the prior contrast-enhanced exam. It appears grossly unchanged. * Unchanged borderline retroperitoneal and retrocrural adenopathy. Pedro Caban MD Jun 11, 2018 16:54
--- NOTE | 2018-06-11 18:50 | Cardiology Progress Note ---
Assessment/Plan Status: stable Assessment/Plan Assessment/Plan Assessment/Plan 1. Paroxysmal Atrial fib/flutter with RVR. Converted to SR when on tele. Continue Digoxin 0.125 daily, Metoprolol 50 bid , Amiodarone 200 daily and Eliquis 5 bid Check Dig level in 2. Fever, cough, sepsis on antibiotic and still in respiratory isolation. On INH, ETB, PZA 3. History of dementia and severe psychosis, on Seroquel. 4. Severe bilateral leg ulcers and sacral decubitus. S/P Bilateral AKA by Dr. Osuna -Discharge approval per Dept of Health Subjective Cardiovascular: Reports: no symptoms Respiratory: Reports: no symptoms Gastrointestinal/Abdominal: Reports: no symptoms Genitourinary: Reports: no symptoms Subjective C[employer]AGE [employer] no acute events, No s/s of respiratory distress or discomfort noted Objective Last 24 Hour Vital Signs Date Time Temp Pulse Resp B/P (MAP) Pulse Ox O2 Delivery O2 Flow Rate FiO2 06/11/18 16:00 98.4 70 18 130/79 (96) 99 06/11/18 12:00 98.8 66 18 126/80 (95) 100 06/11/18 09:00 62 128/77 06/11/18 09:00 62 06/11/18 09:00 Nasal Cannula 2.0 Nasal Cannula 2.0 06/11/18 08:14 71 16 Nasal Cannula 2.0 28 06/11/18 08:14 Nasal Cannula 2.0 28 06/11/18 08:14 99 Nasal Cannula 2.0 28 06/11/18 08:00 98.3 62 19 128/77 (94) 100 06/11/18 04:00 98.7 59 18 131/75 (93) 100 06/11/18 00:00 98.5 61 18 126/71 (89) 100 06/10/18 21:36 58 128/67 06/10/18 21:00 Nasal Cannula 2.0 Nasal Cannula 2.0 06/10/18 20:00 98.1 58 20 128/67 (87) 100 06/10/18 19:22 98.1 06/10/18 19:02 Nasal Cannula 2.0 28 06/10/18 19:02 66 16 Nasal Cannula 2.0 28 06/10/18 19:02 99 Nasal Cannula 2.0 28 General Appearance: no apparent distress, alert EENT: PERRL/EOMI, normal ENT inspection Neck: non-tender, normal alignment, supple, normal inspection, no JVD Rhythm: NSR Cardiovascular: normal peripheral pulses, normal rate, regular rhythm Respiratory/Chest: chest wall non-tender, lungs clear, normal breath sounds Abdomen: normal bowel sounds, non tender, soft Extremities: normal range of motion, non-tender Neurologic: pasteurizer helper II-XII grossly normal, no motor/sensory deficits Intake and Output 06/10/18 06/11/18 19:00 07:00 Intake Total 480 ml Balance 480 ml Intake Oral 480 ml # Voids 3 3 Laboratory Tests Test 06/11/18 05:30 White Blood Count 13.2 K/UL (4.8-10.8) H Red Blood Count 3.02 M/UL (4.70-6.10) L Hemoglobin 8.7 G/DL (14.2-18.0) L Hematocrit 27.6 % (42.0-52.0) L Mean Corpuscular Volume 92 FL (80-99) Mean Corpuscular Hemoglobin 28.9 PG (27.0-31.0) Mean Corpuscular Hemoglobin Concent 31.6 G/DL (32.0-36.0) L Red Cell Distribution Width 13.4 % (11.6-14.8) Platelet Count 225 K/UL (150-450) Mean Platelet Volume 5.3 FL (6.5-10.1) L Neutrophils (%) (Auto) 81.8 % (45.0-75.0) H Lymphocytes (%) (Auto) 9.6 % (20.0-45.0) L Monocytes (%) (Auto) 7.2 % (1.0-10.0) Eosinophils (%) (Auto) 0.3 % (0.0-3.0) Basophils (%) (Auto) 1.1 % (0.0-2.0) Sodium Level 140 MMOL/L (136-145) Potassium Level 3.7 MMOL/L (3.5-5.1) Chloride Level 106 MMOL/L (98-107) Carbon Dioxide Level 32 MMOL/L (21-32) Anion Gap 2 mmol/L (5-15) L Blood Urea Nitrogen 12 mg/dL (7-18) Creatinine 0.6 MG/DL (0.55-1.30) Estimat Glomerular Filtration Rate > 60 mL/min (>60) Glucose Level 84 MG/DL (74-106) Calcium Level 7.8 MG/DL (8.5-10.1) L Total Bilirubin 0.7 MG/DL (0.2-1.0) Aspartate Amino Transf (AST/SGOT) 18 U/L (15-37) Alanine Aminotransferase (ALT/SGPT) 8 U/L (12-78) L Alkaline Phosphatase 107 U/L (46-116) Total Protein 5.7 G/DL (6.4-8.2) L Albumin 1.4 G/DL (3.4-5.0) L Globulin 4.3 g/dL Albumin/Globulin Ratio 0.3 (1.0-2.7) L Vinny Tobin MD Jun 11, 2018 18:50
[2018-06-11 20:00] VITALS: BP 129/69
[2018-06-11] MEDS: Dyna-Hex 2% Top Sol 2oz TOPIC SCH (21:55)
--- NOTE | 2018-06-11 22:39 | General Progress Note ---
Assessment/Plan Problem List: (1) Bipolar disorder ICD Codes: F31.9 - Bipolar disorder, unspecified SNOMED: 17544368 (2) encephalopathy Status: stable Assessment/Plan start Seroquel the pt lacks capacity to make decisions Subjective 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: Reports: anxiety Allergies: Coded Allergies: MILK (Verified Allergy, Unknown, 02/02/18) Subjective the pt is the same with cognitive impairment no agitation the pt is at times disorganized Objective Last 24 Hour Vital Signs Date Time Temp Pulse Resp B/P (MAP) Pulse Ox O2 Delivery O2 Flow Rate FiO2 06/11/18 21:00 Nasal Cannula 2.0 Nasal Cannula 2.0 06/11/18 20:19 100 Nasal Cannula 2.0 28 06/11/18 20:19 68 20 Nasal Cannula 2.0 28 06/11/18 20:19 Nasal Cannula 2.0 28 06/11/18 20:00 98.1 66 19 129/69 (89) 100 06/11/18 16:00 98.4 70 18 130/79 (96) 99 06/11/18 12:00 98.8 66 18 126/80 (95) 100 06/11/18 09:00 62 128/77 06/11/18 09:00 62 06/11/18 09:00 Nasal Cannula 2.0 Nasal Cannula 2.0 06/11/18 08:14 71 16 Nasal Cannula 2.0 28 06/11/18 08:14 Nasal Cannula 2.0 28 06/11/18 08:14 99 Nasal Cannula 2.0 28 06/11/18 08:00 98.3 62 19 128/77 (94) 100 06/11/18 04:00 98.7 59 18 131/75 (93) 100 06/11/18 00:00 98.5 61 18 126/71 (89) 100 Intake and Output 06/10/18 06/11/18 19:00 07:00 Intake Total 480 ml Balance 480 ml Intake Oral 480 ml # Voids 3 3 Laboratory Tests 06/11/18 05:30: White Blood Count 13.2H, Red Blood Count 3.02L, Hemoglobin 8.7L, Hematocrit 27.6L, Mean Corpuscular Volume 92, Mean Corpuscular Hemoglobin 28.9, Mean Corpuscular Hemoglobin Concent 31.6L, Red Cell Distribution Width 13.4, Platelet Count 225, Mean Platelet Volume 5.3L, Neutrophils (%) (Auto) 81.8H, Lymphocytes (%) (Auto) 9.6L, Monocytes (%) (Auto) 7.2, Eosinophils (%) (Auto) 0.3, Basophils (%) (Auto) 1.1, Sodium Level 140, Potassium Level 3.7, Chloride Level 106, Carbon Dioxide Level 32, Anion Gap 2L, Blood Urea Nitrogen 12, Creatinine 0.6, Estimat Glomerular Filtration Rate > 60, Glucose Level 84, Calcium Level 7.8L, Total Bilirubin 0.7, Aspartate Amino Transf (AST/SGOT) 18, Alanine Aminotransferase (ALT/SGPT) 8L, Alkaline Phosphatase 107, Total Protein 5.7L, Albumin 1.4L, Globulin 4.3, Albumin/Globulin Ratio 0.3L Height (Feet): 6 Height (Inches): 5.00 Weight (Pounds): 170 General Appearance: alert Neurologic: responsive, depressed affect Julissa Still MD Jun 11, 2018 22:39
[2018-06-12] VITALS: BP 122/82
[2018-06-12 04:00] VITALS: BP 158/75
[2018-06-12] MEDS: metroNIDAZOLE 500mg tab ORAL SCH ×3 (04:58→21:57)
[2018-06-12 06:36] LABS: ALANINE AMINOTRANSFERASE 10 U/L (12-78); ALBUMIN 1.7 G/DL (3.4-5.0); ALBUMIN/GLOBULIN RATIO 0.4 (1.0-2.7); ALKALINE PHOSPHATASE 127 U/L (46-116); ANION GAP 6 mmol/L (5-15); ASPARTATE AMINO TRANSFERASE 22 U/L (15-37); BLOOD UREA NITROGEN 5 mg/dL (7-18); CARBON DIOXIDE 29 MMOL/L (21-32); CHLORIDE 105 MMOL/L (98-107); CREATININE 0.7 MG/DL (0.55-1.30); POTASSIUM 3.6 MMOL/L (3.5-5.1); SODIUM 140 MMOL/L (136-145)
[2018-06-12 08:00] VITALS: BP 150/76
[2018-06-12] MEDS: Dakin's 0.125% Soln (Quarter Strength) 16oz TOPIC SCH (09:00)
[2018-06-12] MEDS: Miralax 17gm pkt ORAL SCH (09:17)
[2018-06-12] MEDS: Docusate 100mg cap ORAL SCH ×2 (09:18→17:24)
[2018-06-12] MEDS: Isoniazid 300mg tab ORAL SCH (09:18)
[2018-06-12] MEDS: Levofloxacin 500mg tab ORAL SCH (09:18)
[2018-06-12] MEDS: Lyrica 25mg cap ORAL SCH ×3 (09:18→17:23)
[2018-06-12] MEDS: Amiodarone 200mg tab ORAL SCH (09:18)
[2018-06-12] MEDS: Pyridoxine 50mg tab ORAL SCH (09:18)
[2018-06-12] MEDS: Eliquis 2.5mg tablet ORAL SCH ×2 (09:19→21:57)
--- NOTE | 2018-06-12 10:13 | Infectious Diseases Prog Note ---
Assessment/Plan Assessment/Plan Assessment/Plan 68 yo male who was transferred from [place] where he initially presented for AMS from [facility]. Low grade fever, SP Leukocytosis ,recurrent- -Bcx NTD Small lung cavitary lesion/ PNA- suspect likely to aspiration; lower suspicion for TB and/or fungal etiologies -06/05 CXR: Improved right-sided pleural effusion and basilar parenchymal opacities, over 6 days. Persistent left-sided pleural effusion. -CT c/a/p: 10 mm opacity in the peripheral anterolateral right upper lobe with small central cavitation. Patchy groundglass opacity in the posterior right upper lobe. Suspect that these represent inflammatory/infectious lesions, but neoplastic etiology of either is certainly possible. Large left and moderate right pleural effusions. Resultant compressive atelectasis of portions of the lower lobes. Equivocal distal esophageal wall thickening, could indicate esophagitis if real -sp cx usual resp noah -AFB sp cx; smear neg x4; MTB PCR neg -TB spot + -Neg Crag serum, legionella ag urine, Blasto ab, Histoplasma ab Chronic Hep C- VL 3.2 million copies -CT abd- liver unremarkable -Hep Bc ab+, Not immune for Hep A Sepsis 2/2 to bacteremia (at OSH) Likely source is skin ulcer Blood Cx 05/12/18 at [place] [facility] -Bcx 05/12 and (here) NTD 2d echo: no vegetations 05/15 CXR: Right midlung nodule. Absence of this finding on previous study makes this more likely to be a focus of inflammation, but rapidly growing neoplasm not excludable. Left basilar hazy opacity. Most likely a moderate to large pleural effusion.Component of infiltrate or atelectasis is also possible 05/12 CXR: Asymmetric ill-defined confluent groundglass opacity within the left mid/inferior lung, of uncertain etiology. B/l LE necrotic ulcer and toes- acute on chronci, ischemic w/ likely superinfection- likely non-salvageable per surgery -05/23 SP B/l BKA Afib w/ RVR Encephalopathy , improving -CT head w/wo: No acute intracranial abnormalities. Mild atrophy of the brain. Nonspecific white matter hypoattenuation probably due to chronic small vessel disease. Likely secondary to sepsis Cerebrovascular accident. Hypertension. Sacral decubitus ulcers. Bipolar disorder. Coronary artery disease. Plan - Continue Levaquin #17(abx d#30) and flagyl #23 for cavitary/aspiration PNA -low threshold to switch Cefepime and Flagyl to Meropenem if decompensates -05/26 SP IV Vancomycin #15, Cefepime #15 -Per Dept of Public health and to aid on discharge planning back to SNF, will cont empiric TB regimen with DONN (started on 05/26- ); Levaquin instead of Rifampin or Rifabutin given multiple drug interactions of Rifampin (w/ Amiodarone, quetiapine, metoprolol) -Dept of wants to treat empirically until final AFB culture results -monitor LFTs -f/u Bcx x2 -EGK monitor QTc -Airborne isolation -f/u AFB sp cx -f/u cocci ab, fungal sp cx, - Wound care - Monitor CBC and Temps -Cdiff if diarrhea -Sx f/u -Discharge approval per Dept of Health Thank you for this consult. We will continue to follow the patient during this hospitalization. Discussed with RN Subjective Allergies: Coded Allergies: MILK (Verified Allergy, Unknown, 02/02/18) Subjective afebrile recurrent leukocytosis , imrpoving more alert at 2l NC LFts normal Objective Vital Signs Last 24 Hour Vital Signs Date Time Temp Pulse Resp B/P (MAP) Pulse Ox O2 Delivery O2 Flow Rate FiO2 06/12/18 08:00 97.8 90 17 150/76 (100) 100 06/12/18 04:00 97.5 91 16 158/75 (102) 100 06/12/18 00:00 97.0 81 20 122/82 (95) 100 06/11/18 21:00 Nasal Cannula 2.0 Nasal Cannula 2.0 06/11/18 20:19 100 Nasal Cannula 2.0 28 06/11/18 20:19 68 20 Nasal Cannula 2.0 28 06/11/18 20:19 Nasal Cannula 2.0 28 06/11/18 20:00 98.1 66 19 129/69 (89) 100 06/11/18 16:00 98.4 70 18 130/79 (96) 99 06/11/18 12:00 98.8 66 18 126/80 (95) 100 Height (Feet): 6 Height (Inches): 5.00 Weight (Pounds): 170 Objective Gen: NAD. Mumbling HEENT: NCAT, MMM, EOMI, No Oral lesion, no scleral icterus NECK: full range of motion, supple, no meningismus, No LAD, No JVD LUNGS: CTAB, No W/C, No Accessory muscle use CARDS: RRR, S1, S2, No M/R/G ABD: Soft, NT, ND, No R/G, + BS, No HSM, No Masses : Deferred Ext: C/C/E, Pulses 2+ B/L (DP, Rad) NEURO: A/O x 0, Strength and Sensation Grossly intact PSYCH: mood/affect normal SKIN: Left foot wound. No purulent drainage, Feet now bandaged Laboratory Tests Test 06/12/18 05:10 Sodium Level 140 MMOL/L (136-145) Potassium Level 3.6 MMOL/L (3.5-5.1) Chloride Level 105 MMOL/L (98-107) Carbon Dioxide Level 29 MMOL/L (21-32) Anion Gap 6 mmol/L (5-15) Blood Urea Nitrogen 5 mg/dL (7-18) L Creatinine 0.7 MG/DL (0.55-1.30) Estimat Glomerular Filtration Rate > 60 mL/min (>60) Glucose Level 92 MG/DL (74-106) Calcium Level 8.0 MG/DL (8.5-10.1) L Total Bilirubin 1.0 MG/DL (0.2-1.0) Aspartate Amino Transf (AST/SGOT) 22 U/L (15-37) Alanine Aminotransferase (ALT/SGPT) 10 U/L (12-78) L Alkaline Phosphatase 127 U/L (46-116) H Total Protein 6.3 G/DL (6.4-8.2) L Albumin 1.7 G/DL (3.4-5.0) L Globulin 4.6 g/dL Albumin/Globulin Ratio 0.4 (1.0-2.7) L Current Medications Medications (Trade) Dose Ordered Sig/Erlin Route PRN Reason Start Time Stop Time Status Last Admin Dose Admin Al Hydroxide/Mg Hydroxide (Mylanta) 15 ml Q6H PRN ORAL DYSPEPSIA 05/26/18 18:30 06/22/18 18:15 Amiodarone HCl (Cordarone) 200 mg DAILY ORAL 05/27/18 09:00 06/17/18 08:59 06/12/18 09:18 Apixaban (Eliquis) 5 mg Q12HR ORAL 06/05/18 21:00 07/05/18 20:59 06/12/18 09:19 Chlorhexidine Gluconate (Yari-Hex 2%) 1 applic DAILY@2000 TOPIC 05/26/18 20:00 06/23/18 19:59 06/11/18 21:55 Diphenhydramine HCl (Benadryl) 25 mg Q8H PRN ORAL Itching/Pruritis 05/26/18 16:46 06/22/18 16:45 06/05/18 16:53 Docusate Sodium (Colace) 100 mg TWICE A DAY ORAL 05/26/18 18:00 06/22/18 17:59 06/12/18 09:18 Ethambutol HCl (Myambutol) 1,200 mg DAILY ORAL 05/27/18 09:00 06/25/18 13:59 06/12/18 09:17 Hydromorphone HCl (Dilaudid) 2 mg Q3H PRN IVP Moderate Pain (Pain Scale 4-6) 06/10/18 16:00 06/14/18 03:59 06/12/18 09:19 Hydromorphone HCl (Dilaudid) 3 mg Q3H PRN IVP Severe Pain (Pain Scale 7-10) 06/10/18 15:15 06/17/18 15:14 06/12/18 05:00 Isoniazid (Inh) 300 mg DAILY ORAL 05/27/18 09:00 06/25/18 13:59 06/12/18 09:18 Levofloxacin (Levaquin) 500 mg DAILY ORAL 06/09/18 09:00 06/14/18 08:59 06/12/18 09:18 Lorazepam (Ativan 2mg/ml 1ml) 1 mg Q4H PRN IV For Anxiety 06/06/18 17:15 06/14/18 18:00 Magnesium Hydroxide (Mom) 30 ml BIDPRN PRN ORAL Constipation 05/26/18 18:30 06/22/18 18:15 Metronidazole (Flagyl) 500 mg Q8HR ORAL 06/08/18 22:00 06/15/18 21:59 06/12/18 04:58 Ondansetron HCl (Zofran) 4 mg Q6H PRN IVP Nausea & Vomiting 05/26/18 18:30 06/22/18 18:15 Polyethylene Glycol (Miralax) 17 gm DAILY ORAL 05/27/18 09:00 06/16/18 10:59 06/12/18 09:17 Pregabalin (Lyrica) 25 mg THREE TIMES A DAY ORAL 06/03/18 18:00 07/03/18 17:59 06/12/18 09:18 Pyrazinamide (Pza) 1,500 mg DAILY ORAL 05/27/18 09:00 06/25/18 13:59 06/12/18 09:18 Pyridoxine HCl (Vitamin B6) 50 mg DAILY ORAL 05/27/18 09:00 06/25/18 13:59 06/12/18 09:18 Sennosides (Senokot) 8.6 mg BIDPRN PRN ORAL Constipation 05/26/18 18:30 06/22/18 18:15 Sodium Hypochlorite (Dakin's Quarter Strength) 1 applic DAILY TOPIC 05/27/18 09:00 06/25/18 16:00 06/11/18 10:01 Alma Elkins M.D. Jun 12, 2018 10:13
[2018-06-12 12:00] VITALS: BP 144/73
--- NOTE | 2018-06-12 14:56 | Internal Med Progress Note ---
Subjective Physician Name Pedro Caban Attending Physician Pedro Caban MD Current Medications Medications (Trade) Dose Ordered Sig/Erlin Route PRN Reason Start Time Stop Time Status Last Admin Dose Admin Al Hydroxide/Mg Hydroxide (Mylanta) 15 ml Q6H PRN ORAL DYSPEPSIA 05/26/18 18:30 06/22/18 18:15 Amiodarone HCl (Cordarone) 200 mg DAILY ORAL 05/27/18 09:00 06/17/18 08:59 06/12/18 09:18 Apixaban (Eliquis) 5 mg Q12HR ORAL 06/05/18 21:00 07/05/18 20:59 06/12/18 09:19 Chlorhexidine Gluconate (Yari-Hex 2%) 1 applic DAILY@1999 TOPIC 05/26/18 20:00 06/23/18 19:59 06/11/18 21:55 Diphenhydramine HCl (Benadryl) 25 mg Q8H PRN ORAL Itching/Pruritis 05/26/18 16:46 06/22/18 16:45 06/05/18 16:53 Docusate Sodium (Colace) 100 mg TWICE A DAY ORAL 05/26/18 18:00 06/22/18 17:59 06/12/18 09:18 Ethambutol HCl (Myambutol) 1,200 mg DAILY ORAL 05/27/18 09:00 06/25/18 13:59 06/12/18 09:17 Hydromorphone HCl (Dilaudid) 2 mg Q3H PRN IVP Moderate Pain (Pain Scale 4-6) 06/10/18 16:00 06/14/18 03:59 06/12/18 13:53 Hydromorphone HCl (Dilaudid) 3 mg Q3H PRN IVP Severe Pain (Pain Scale 7-10) 06/10/18 15:15 06/17/18 15:14 06/12/18 05:00 Isoniazid (Inh) 300 mg DAILY ORAL 05/27/18 09:00 06/25/18 13:59 06/12/18 09:18 Levofloxacin (Levaquin) 500 mg DAILY ORAL 06/09/18 09:00 06/14/18 08:59 06/12/18 09:18 Lorazepam (Ativan 2mg/ml 1ml) 1 mg Q4H PRN IV For Anxiety 06/06/18 17:15 06/14/18 18:00 Magnesium Hydroxide (Mom) 30 ml BIDPRN PRN ORAL Constipation 05/26/18 18:30 06/22/18 18:15 Metronidazole (Flagyl) 500 mg Q8HR ORAL 06/08/18 22:00 06/15/18 21:59 06/12/18 13:52 Ondansetron HCl (Zofran) 4 mg Q6H PRN IVP Nausea & Vomiting 05/26/18 18:30 06/22/18 18:15 Polyethylene Glycol (Miralax) 17 gm DAILY ORAL 05/27/18 09:00 06/16/18 10:59 06/12/18 09:17 Pregabalin (Lyrica) 25 mg THREE TIMES A DAY ORAL 06/03/18 18:00 07/03/18 17:59 06/12/18 13:53 Pyrazinamide (Pza) 1,500 mg DAILY ORAL 05/27/18 09:00 06/25/18 13:59 06/12/18 09:18 Pyridoxine HCl (Vitamin B6) 50 mg DAILY ORAL 05/27/18 09:00 06/25/18 13:59 06/12/18 09:18 Sennosides (Senokot) 8.6 mg BIDPRN PRN ORAL Constipation 05/26/18 18:30 06/22/18 18:15 Sodium Hypochlorite (Dakin's Quarter Strength) 1 applic DAILY TOPIC 05/27/18 09:00 06/25/18 16:00 06/11/18 10:01 Allergies: Coded Allergies: MILK (Verified Allergy, Unknown, 02/02/18) Subjective awake, alert, responsive, C/O stumps pain. Objective Last Vital Signs Date Time Temp Pulse Resp B/P (MAP) Pulse Ox O2 Delivery O2 Flow Rate FiO2 06/12/18 12:00 97.8 87 18 144/73 (96) 99 06/12/18 09:00 Nasal Cannula 2.0 Nasal Cannula 2.0 06/11/18 20:19 28 Laboratory Tests Test 06/12/18 05:10 Sodium Level 140 MMOL/L (136-145) Potassium Level 3.6 MMOL/L (3.5-5.1) Chloride Level 105 MMOL/L (98-107) Carbon Dioxide Level 29 MMOL/L (21-32) Anion Gap 6 mmol/L (5-15) Blood Urea Nitrogen 5 mg/dL (7-18) L Creatinine 0.7 MG/DL (0.55-1.30) Estimat Glomerular Filtration Rate > 60 mL/min (>60) Glucose Level 92 MG/DL (74-106) Calcium Level 8.0 MG/DL (8.5-10.1) L Total Bilirubin 1.0 MG/DL (0.2-1.0) Aspartate Amino Transf (AST/SGOT) 22 U/L (15-37) Alanine Aminotransferase (ALT/SGPT) 10 U/L (12-78) L Alkaline Phosphatase 127 U/L (46-116) H Total Protein 6.3 G/DL (6.4-8.2) L Albumin 1.7 G/DL (3.4-5.0) L Globulin 4.6 g/dL Albumin/Globulin Ratio 0.4 (1.0-2.7) L Intake and Output 06/11/18 06/12/18 18:59 06:59 Intake Total 820 ml Balance 820 ml Intake Oral 820 ml # Voids 6 2 Objective General: No acute distress, awake and alert HEENT: NCAT, sclera anicteric, PERRL, EOMI. Neck: Supple, no significant jugular venous distention, Lungs: Fair inspiratory effort, Decrease air on bases, no Wheeze or Rales. Heart: Irregular rate and rhythm, normal S1/S2, no murmurs Abdomen: soft, nontender, nondistended. Normoactive bowel sounds. / Rectal: Refused and deferred. Extremities: No Cyanosis , clubbing or edema. Bilateral stumps intact with chaitanya, LUE piccline. 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 Small lung cavitary lesion/ likely due to PNA cavitary/aspiration PNA acute encephalopathy, likely secondary to sepsis atrial fibrillation with rapid ventricular response borderline hypotension- resolved acute DVT R SFV hepatitis C hypertension coronary artery disease history of CVA dementia bipolar disorder protein calorie malnutrition anemia Plan: Abx: Levaquin and Flagyl F/U with ID recommendations wound care Lovenox injection. On Neurontin 100 mg TID -Per Dept of Public health and to aid on discharge planning back to SNF, will cont empiric TB regimen with DONN (started on 05/26- ); Levaquin instead of Rifampin or Rifabutin given multiple drug interactions of Rifampin (w/ Amiodarone, quetiapine, metoprolol) -Dept of PH wants to treat empirically until final AFB culture results -monitor LFTs CT chest: IMPRESSION: * Interval resolution of the cavitary component associated with the previously described anterior right upper lobe opacity. It is slightly decreased in size and more nodular in appearance on today's exam. Additional patchy opacities in the posterior right upper lobe are also slightly decreased in size and appear more nodular (previously were groundglass). Findings likely related to evolving infectious or inflammatory lesions however continued follow-up is recommended to assure resolution/exclude the possibility of neoplastic etiologies. * Small bilateral pleural effusions and adjacent compressive atelectasis in the bilateral posterior lower lobes. * Cardiomegaly and coronary artery disease. * Debris within the esophagus to the level of the petros. Note this isn't considered a risk for aspiration. Equivocal esophageal wall thickening again noted. Again, correlation with endoscopy can be obtained. * Previously described lesion in the spleen better appreciated on the prior contrast-enhanced exam. It appears grossly unchanged. * Unchanged borderline retroperitoneal and retrocrural adenopathy. Pedro Caban MD Jun 12, 2018 14:55
[2018-06-12 16:00] VITALS: BP 140/78
--- NOTE | 2018-06-12 16:18 | Cardiology Progress Note ---
Assessment/Plan Status: stable Assessment/Plan Assessment/Plan Assessment/Plan 1. Paroxysmal Atrial fib/flutter with RVR. Converted to SR when on tele. Continue Digoxin 0.125 daily, Metoprolol 50 bid , Amiodarone 200 daily and Eliquis 5 bid Check Dig level in 2. Fever, cough, sepsis on antibiotic and still in respiratory isolation. On INH, ETB, PZA 3. History of dementia and severe psychosis, on Seroquel. 4. Severe bilateral leg ulcers and sacral decubitus. S/P Bilateral AKA by Dr. Osuna -Discharge approval per Dept of Health Subjective Cardiovascular: Reports: no symptoms Respiratory: Reports: no symptoms Gastrointestinal/Abdominal: Reports: no symptoms Genitourinary: Reports: no symptoms Subjective C[employer]AGE [employer] no acute events, No s/s of respiratory distress or discomfort noted Objective Last 24 Hour Vital Signs Date Time Temp Pulse Resp B/P (MAP) Pulse Ox O2 Delivery O2 Flow Rate FiO2 06/12/18 12:00 97.8 87 18 144/73 (96) 99 06/12/18 09:00 Nasal Cannula 2.0 Nasal Cannula 2.0 06/12/18 08:00 97.8 90 17 150/76 (100) 100 06/12/18 04:00 97.5 91 16 158/75 (102) 100 06/12/18 00:00 97.0 81 20 122/82 (95) 100 06/11/18 21:00 Nasal Cannula 2.0 Nasal Cannula 2.0 06/11/18 20:19 100 Nasal Cannula 2.0 28 06/11/18 20:19 68 20 Nasal Cannula 2.0 28 06/11/18 20:19 Nasal Cannula 2.0 28 06/11/18 20:00 98.1 66 19 129/69 (89) 100 General Appearance: no apparent distress EENT: PERRL/EOMI, normal ENT inspection, pharynx normal Neck: non-tender, supple, normal inspection, no JVD Rhythm: SB Cardiovascular: normal peripheral pulses, regular rhythm Respiratory/Chest: lungs clear, normal breath sounds, no respiratory distress Abdomen: normal bowel sounds, non tender, soft, no organomegaly, no mass Extremities: normal range of motion, non-tender, normal inspection 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, no motor/sensory deficits Intake and Output 06/11/18 06/12/18 18:59 06:59 Intake Total 820 ml Balance 820 ml Intake Oral 820 ml # Voids 6 2 Laboratory Tests Test 06/12/18 05:10 Sodium Level 140 MMOL/L (136-145) Potassium Level 3.6 MMOL/L (3.5-5.1) Chloride Level 105 MMOL/L (98-107) Carbon Dioxide Level 29 MMOL/L (21-32) Anion Gap 6 mmol/L (5-15) Blood Urea Nitrogen 5 mg/dL (7-18) L Creatinine 0.7 MG/DL (0.55-1.30) Estimat Glomerular Filtration Rate > 60 mL/min (>60) Glucose Level 92 MG/DL (74-106) Calcium Level 8.0 MG/DL (8.5-10.1) L Total Bilirubin 1.0 MG/DL (0.2-1.0) Aspartate Amino Transf (AST/SGOT) 22 U/L (15-37) Alanine Aminotransferase (ALT/SGPT) 10 U/L (12-78) L Alkaline Phosphatase 127 U/L (46-116) H Total Protein 6.3 G/DL (6.4-8.2) L Albumin 1.7 G/DL (3.4-5.0) L Globulin 4.6 g/dL Albumin/Globulin Ratio 0.4 (1.0-2.7) L Vinny Tobin MD Jun 12, 2018 16:18
--- NOTE | 2018-06-12 18:06 | General Progress Note ---
Assessment/Plan Problem List: (1) Bipolar disorder ICD Codes: F31.9 - Bipolar disorder, unspecified SNOMED: [id number] (2) encephalopathy Status: stable Assessment/Plan start Seroquel the pt lacks capacity to make decisions Subjective 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: Reports: anxiety, depressed Allergies: Coded Allergies: MILK (Verified Allergy, Unknown, 02/02/18) Subjective the pt is the same with cognitive impairment agitation at times Objective Last 24 Hour Vital Signs Date Time Temp Pulse Resp B/P (MAP) Pulse Ox O2 Delivery O2 Flow Rate FiO2 06/12/18 16:00 98.3 81 18 140/78 (98) 98 06/12/18 12:00 97.8 87 18 144/73 (96) 99 06/12/18 09:00 Nasal Cannula 2.0 Nasal Cannula 2.0 06/12/18 08:00 97.8 90 17 150/76 (100) 100 06/12/18 04:00 97.5 91 16 158/75 (102) 100 06/12/18 00:00 97.0 81 20 122/82 (95) 100 06/11/18 21:00 Nasal Cannula 2.0 Nasal Cannula 2.0 06/11/18 20:19 100 Nasal Cannula 2.0 28 06/11/18 20:19 68 20 Nasal Cannula 2.0 28 06/11/18 20:19 Nasal Cannula 2.0 28 06/11/18 20:00 98.1 66 19 129/69 (89) 100 Intake and Output 06/11/18 06/12/18 19:00 07:00 Intake Total 820 ml Balance 820 ml Intake Oral 820 ml # Voids 6 2 Laboratory Tests 06/12/18 05:10: Sodium Level 140, Potassium Level 3.6, Chloride Level 105, Carbon Dioxide Level 29, Anion Gap 6, Blood Urea Nitrogen 5L, Creatinine 0.7, Estimat Glomerular Filtration Rate > 60, Glucose Level 92, Calcium Level 8.0L, Total Bilirubin 1.0 , Aspartate Amino Transf (AST/SGOT) 22, Alanine Aminotransferase (ALT/SGPT) 10L , Alkaline Phosphatase 127H, Total Protein 6.3L, Albumin 1.7L, Globulin 4.6, Albumin/Globulin Ratio 0.4L Height (Feet): 6 Height (Inches): 5.00 Weight (Pounds): 170 General Appearance: alert, agitated Julissa Still MD Jun 12, 2018 18:06
[2018-06-12 20:00] VITALS: BP 146/99
[2018-06-12] MEDS: Dyna-Hex 2% Top Sol 2oz TOPIC SCH (20:00)
[2018-06-13] VITALS: BP 148/113
[2018-06-13 04:00] VITALS: BP 157/98
[2018-06-13] MEDS: metroNIDAZOLE 500mg tab ORAL SCH ×3 (05:18→21:36)
[2018-06-13 07:40] LABS: ALANINE AMINOTRANSFERASE 8 U/L (12-78); ALBUMIN 1.5 G/DL (3.4-5.0); ALBUMIN/GLOBULIN RATIO 0.3 (1.0-2.7); ALKALINE PHOSPHATASE 125 U/L (46-116); ANION GAP 3 mmol/L (5-15); ASPARTATE AMINO TRANSFERASE 22 U/L (15-37); BILIRUBIN,TOTAL 0.7 MG/DL (0.2-1.0); BLOOD UREA NITROGEN 10 mg/dL (7-18); CALCIUM 7.9 MG/DL (8.5-10.1); CARBON DIOXIDE 32 MMOL/L (21-32); CHLORIDE 105 MMOL/L (98-107); CREATININE 0.7 MG/DL (0.55-1.30); POTASSIUM 3.7 MMOL/L (3.5-5.1); SODIUM 140 MMOL/L (136-145)
[2018-06-13 08:00] VITALS: BP 136/92
[2018-06-13] MEDS: Isoniazid 300mg tab ORAL SCH (08:48)
[2018-06-13] MEDS: Levofloxacin 500mg tab ORAL SCH (08:49)
[2018-06-13] MEDS: Pyridoxine 50mg tab ORAL SCH (08:49)
[2018-06-13] MEDS: Lyrica 25mg cap ORAL SCH ×3 (08:50→17:32)
[2018-06-13] MEDS: Eliquis 2.5mg tablet ORAL SCH ×2 (08:50→21:36)
[2018-06-13] MEDS: Amiodarone 200mg tab ORAL SCH (08:50)
[2018-06-13] MEDS: Miralax 17gm pkt ORAL SCH (08:51)
[2018-06-13] MEDS: Docusate 100mg cap ORAL SCH ×2 (08:51→17:38)
[2018-06-13] MEDS: Dakin's 0.125% Soln (Quarter Strength) 16oz TOPIC SCH (08:51)
[2018-06-13 11:50] VITALS: BP 145/94
--- NOTE | 2018-06-13 13:18 | Internal Med Progress Note ---
Subjective Physician Name Pedro Caban Attending Physician Pedro Caban MD Current Medications Medications (Trade) Dose Ordered Sig/Erlin Route PRN Reason Start Time Stop Time Status Last Admin Dose Admin Al Hydroxide/Mg Hydroxide (Mylanta) 15 ml Q6H PRN ORAL DYSPEPSIA 05/26/18 18:30 06/22/18 18:15 Amiodarone HCl (Cordarone) 200 mg DAILY ORAL 05/27/18 09:00 06/17/18 08:59 06/13/18 08:50 Apixaban (Eliquis) 5 mg Q12HR ORAL 06/05/18 21:00 07/05/18 20:59 06/13/18 08:50 Chlorhexidine Gluconate (Yari-Hex 2%) 1 applic DAILY@1999 TOPIC 05/26/18 20:00 06/23/18 19:59 06/12/18 20:00 Diphenhydramine HCl (Benadryl) 25 mg Q8H PRN ORAL Itching/Pruritis 05/26/18 16:46 06/22/18 16:45 06/05/18 16:53 Docusate Sodium (Colace) 100 mg TWICE A DAY ORAL 05/26/18 18:00 06/22/18 17:59 06/12/18 17:24 Ethambutol HCl (Myambutol) 1,200 mg DAILY ORAL 05/27/18 09:00 06/25/18 13:59 06/13/18 08:49 Hydromorphone HCl (Dilaudid) 2 mg Q3H PRN IVP Moderate Pain (Pain Scale 4-6) 06/10/18 16:00 06/14/18 03:59 06/13/18 08:48 Hydromorphone HCl (Dilaudid) 3 mg Q3H PRN IVP Severe Pain (Pain Scale 7-10) 06/10/18 15:15 06/17/18 15:14 06/12/18 21:58 Isoniazid (Inh) 300 mg DAILY ORAL 05/27/18 09:00 06/25/18 13:59 06/13/18 08:48 Levofloxacin (Levaquin) 500 mg DAILY ORAL 06/09/18 09:00 06/25/18 08:59 06/13/18 08:49 Lorazepam (Ativan 2mg/ml 1ml) 1 mg Q4H PRN IV For Anxiety 06/06/18 17:15 06/14/18 18:00 Magnesium Hydroxide (Mom) 30 ml BIDPRN PRN ORAL Constipation 05/26/18 18:30 06/22/18 18:15 Metronidazole (Flagyl) 500 mg Q8HR ORAL 06/08/18 22:00 06/15/18 21:59 06/13/18 05:18 Ondansetron HCl (Zofran) 4 mg Q6H PRN IVP Nausea & Vomiting 05/26/18 18:30 06/22/18 18:15 Polyethylene Glycol (Miralax) 17 gm DAILY ORAL 05/27/18 09:00 06/16/18 10:59 06/12/18 09:17 Pregabalin (Lyrica) 25 mg THREE TIMES A DAY ORAL 06/03/18 18:00 07/03/18 17:59 06/13/18 08:50 Pyrazinamide (Pza) 1,500 mg DAILY ORAL 05/27/18 09:00 06/25/18 13:59 06/13/18 08:51 Pyridoxine HCl (Vitamin B6) 50 mg DAILY ORAL 05/27/18 09:00 06/25/18 13:59 06/13/18 08:49 Sennosides (Senokot) 8.6 mg BIDPRN PRN ORAL Constipation 05/26/18 18:30 06/22/18 18:15 Sodium Hypochlorite (Dakin's Quarter Strength) 1 applic DAILY TOPIC 05/27/18 09:00 06/25/18 16:00 06/13/18 08:51 Allergies: Coded Allergies: MILK (Verified Allergy, Unknown, 02/02/18) Subjective awake, alert, responsive, C/O less stumps pain. Objective Last Vital Signs Date Time Temp Pulse Resp B/P (MAP) Pulse Ox O2 Delivery O2 Flow Rate FiO2 06/13/18 11:50 97.9 101 21 145/94 (111) 99 06/13/18 09:00 Nasal Cannula 2.0 Nasal Cannula 2.0 06/13/18 07:56 28 Laboratory Tests Test 06/13/18 05:30 Sodium Level 140 MMOL/L (136-145) Potassium Level 3.7 MMOL/L (3.5-5.1) Chloride Level 105 MMOL/L (98-107) Carbon Dioxide Level 32 MMOL/L (21-32) Anion Gap 3 mmol/L (5-15) L Blood Urea Nitrogen 10 mg/dL (7-18) Creatinine 0.7 MG/DL (0.55-1.30) Estimat Glomerular Filtration Rate > 60 mL/min (>60) Glucose Level 143 MG/DL (74-106) H Calcium Level 7.9 MG/DL (8.5-10.1) L Total Bilirubin 0.7 MG/DL (0.2-1.0) Aspartate Amino Transf (AST/SGOT) 22 U/L (15-37) Alanine Aminotransferase (ALT/SGPT) 8 U/L (12-78) L Alkaline Phosphatase 125 U/L (46-116) H Total Protein 6.4 G/DL (6.4-8.2) Albumin 1.5 G/DL (3.4-5.0) L Globulin 4.9 g/dL Albumin/Globulin Ratio 0.3 (1.0-2.7) L Intake and Output 06/12/18 06/13/18 18:59 06:59 Intake Total 440 ml 300 ml Balance 440 ml 300 ml Intake Oral 440 ml 300 ml # Voids 6 3 Objective General: No acute distress, awake and alert HEENT: NCAT, sclera anicteric, PERRL, EOMI. Neck: Supple, no significant jugular venous distention, Lungs: Fair inspiratory effort, Decrease air on bases, no Wheeze or Rales. Heart: Irregular rate and rhythm, normal S1/S2, no murmurs Abdomen: soft, nontender, nondistended. Normoactive bowel sounds. / Rectal: Refused and deferred. Extremities: No Cyanosis , clubbing or edema. Bilateral stumps intact with chaitanya, LUE piccline. 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 Small lung cavitary lesion/ likely due to PNA cavitary/aspiration PNA acute encephalopathy, likely secondary to sepsis atrial fibrillation with rapid ventricular response borderline hypotension- resolved acute DVT R SFV hepatitis C hypertension coronary artery disease history of CVA dementia bipolar disorder protein calorie malnutrition anemia Plan: Abx: Levaquin and Flagyl F/U with ID recommendations wound care DVT prophylaxis: Eliquis Bid Full code On Lyrica 25 mg TID Discharge approval per Dept of Health -Per Dept of Public health and to aid on discharge planning back to SNF, will cont empiric TB regimen with DONN (started on 05/26- ); Levaquin instead of Rifampin or Rifabutin given multiple drug interactions of Rifampin (w/ Amiodarone, quetiapine, metoprolol) -Dept of PH wants to treat empirically until final AFB culture results -monitor LFTs CT chest: IMPRESSION: * Interval resolution of the cavitary component associated with the previously described anterior right upper lobe opacity. It is slightly decreased in size and more nodular in appearance on today's exam. Additional patchy opacities in the posterior right upper lobe are also slightly decreased in size and appear more nodular (previously were groundglass). Findings likely related to evolving infectious or inflammatory lesions however continued follow-up is recommended to assure resolution/exclude the possibility of neoplastic etiologies. * Small bilateral pleural effusions and adjacent compressive atelectasis in the bilateral posterior lower lobes. * Cardiomegaly and coronary artery disease. * Debris within the esophagus to the level of the petros. Note this isn't considered a risk for aspiration. Equivocal esophageal wall thickening again noted. Again, correlation with endoscopy can be obtained. * Previously described lesion in the spleen better appreciated on the prior contrast-enhanced exam. It appears grossly unchanged. * Unchanged borderline retroperitoneal and retrocrural adenopathy. Pedro Caban MD Jun 13, 2018 13:18
[2018-06-13 16:00] VITALS: BP 131/98
[2018-06-13 20:00] VITALS: BP 136/88
[2018-06-13] MEDS: Dyna-Hex 2% Top Sol 2oz TOPIC SCH (20:00)
--- NOTE | 2018-06-13 22:43 | Cardiology Progress Note ---
Assessment/Plan Status: stable Assessment/Plan Assessment/Plan Assessment/Plan 1. Paroxysmal Atrial fib/flutter with RVR. Converted to SR when on tele. Continue Digoxin 0.125 daily, Metoprolol 50 bid , Amiodarone 200 daily and Eliquis 5 bid Check Dig level in 2. Fever, cough, sepsis on antibiotic and still in respiratory isolation. On INH, ETB, PZA 3. History of dementia and severe psychosis, on Seroquel. 4. Severe bilateral leg ulcers and sacral decubitus. S/P Bilateral AKA by Dr. Osuna -Discharge approval per Dept of Health Subjective Cardiovascular: Reports: no symptoms Respiratory: Reports: no symptoms Gastrointestinal/Abdominal: Reports: no symptoms Genitourinary: Reports: no symptoms Subjective COVERAGE FOR [employer] no acute events, No s/s of respiratory distress or discomfort noted Objective Last 24 Hour Vital Signs Date Time Temp Pulse Resp B/P (MAP) Pulse Ox O2 Delivery O2 Flow Rate FiO2 06/13/18 21:00 Nasal Cannula 2.0 Nasal Cannula 2.0 06/13/18 20:00 98.1 75 20 136/88 (104) 100 06/13/18 19:52 69 16 Nasal Cannula 2.0 28 06/13/18 19:52 Nasal Cannula 2.0 28 06/13/18 19:52 99 Nasal Cannula 2.0 28 06/13/18 16:00 98.6 66 20 131/98 (109) 96 06/13/18 11:50 97.9 101 21 145/94 (111) 99 06/13/18 09:00 Nasal Cannula 2.0 Nasal Cannula 2.0 06/13/18 08:00 98.0 96 19 136/92 (107) 97 06/13/18 07:56 71 16 Nasal Cannula 2.0 28 06/13/18 07:56 Nasal Cannula 2.0 28 06/13/18 07:56 100 Nasal Cannula 2.0 28 06/13/18 04:00 98.0 98 20 157/98 (117) 100 06/13/18 00:00 97.7 84 20 148/113 (125) 100 General Appearance: no apparent distress, alert EENT: PERRL/EOMI, normal ENT inspection, TMs normal, pharynx normal Neck: supple, normal inspection, no JVD Rhythm: NSR Cardiovascular: normal peripheral pulses, normal rate, regular rhythm Respiratory/Chest: chest wall non-tender, lungs clear, normal breath sounds Abdomen: normal bowel sounds, non tender, soft, no organomegaly, no mass Extremities: normal range of motion, non-tender, normal inspection Neurologic: business support II-XII grossly normal, no motor/sensory deficits, abnormal gait Intake and Output 06/12/18 06/13/18 19:00 07:00 Intake Total 440 ml 300 ml Balance 440 ml 300 ml Intake Oral 440 ml 300 ml # Voids 6 3 Laboratory Tests Test 06/13/18 05:30 Sodium Level 140 MMOL/L (136-145) Potassium Level 3.7 MMOL/L (3.5-5.1) Chloride Level 105 MMOL/L (98-107) Carbon Dioxide Level 32 MMOL/L (21-32) Anion Gap 3 mmol/L (5-15) L Blood Urea Nitrogen 10 mg/dL (7-18) Creatinine 0.7 MG/DL (0.55-1.30) Estimat Glomerular Filtration Rate > 60 mL/min (>60) Glucose Level 143 MG/DL (74-106) H Calcium Level 7.9 MG/DL (8.5-10.1) L Total Bilirubin 0.7 MG/DL (0.2-1.0) Aspartate Amino Transf (AST/SGOT) 22 U/L (15-37) Alanine Aminotransferase (ALT/SGPT) 8 U/L (12-78) L Alkaline Phosphatase 125 U/L (46-116) H Total Protein 6.4 G/DL (6.4-8.2) Albumin 1.5 G/DL (3.4-5.0) L Globulin 4.9 g/dL Albumin/Globulin Ratio 0.3 (1.0-2.7) L Vinny Tobin MD Jun 13, 2018 22:43
[2018-06-14] VITALS: BP 134/84
[2018-06-14 04:00] VITALS: BP 117/88
[2018-06-14] MEDS: metroNIDAZOLE 500mg tab ORAL SCH ×3 (05:30→21:03)
[2018-06-14 08:00] VITALS: BP 138/93
[2018-06-14] MEDS: Docusate 100mg cap ORAL SCH ×2 (08:56→17:49)
[2018-06-14] MEDS: Miralax 17gm pkt ORAL SCH (08:57)
[2018-06-14] MEDS: Amiodarone 200mg tab ORAL SCH (08:58)
[2018-06-14] MEDS: Eliquis 2.5mg tablet ORAL SCH ×2 (08:59→21:03)
[2018-06-14] MEDS: Pyridoxine 50mg tab ORAL SCH (08:59)
[2018-06-14] MEDS: Isoniazid 300mg tab ORAL SCH (09:00)
[2018-06-14] MEDS: Lyrica 25mg cap ORAL SCH ×3 (09:00→18:01)
[2018-06-14] MEDS: Levofloxacin 500mg tab ORAL SCH (09:01)
[2018-06-14] MEDS: Dakin's 0.125% Soln (Quarter Strength) 16oz TOPIC SCH (09:04)
--- NOTE | 2018-06-14 10:52 | Infectious Diseases Prog Note ---
Assessment/Plan Assessment/Plan Assessment/Plan 68 yo male who was transferred from [place] where he initially presented for AMS from [facility]. Low grade fever, SP Leukocytosis ,recurrent- -Bcx NTD Small lung cavitary lesion/ PNA- suspect likely to aspiration; lower suspicion for TB and/or fungal etiologies -06/08 CT chest: * Interval resolution of the cavitary component associated with the previously described anterior right upper lobe opacity. It is slightly decreased in size and more nodular in appearance on today's exam. Additional patchy opacities in the posterior right upper lobe are also slightly decreased in size and appear more nodular (previously were groundglass). Findings likely related to evolving infectious or inflammatory lesions however continued follow-up is recommended to assure resolution/exclude the possibility of neoplastic etiologies. -06/05 CXR: Improved right-sided pleural effusion and basilar parenchymal opacities, over 6 days. Persistent left-sided pleural effusion. -CT c/a/p: 10 mm opacity in the peripheral anterolateral right upper lobe with small central cavitation. Patchy groundglass opacity in the posterior right upper lobe. Suspect that these represent inflammatory/infectious lesions, but neoplastic etiology of either is certainly possible. Large left and moderate right pleural effusions. Resultant compressive atelectasis of portions of the lower lobes. Equivocal distal esophageal wall thickening, could indicate esophagitis if real -sp cx usual resp noah -AFB sp cx; smear neg x4; MTB PCR neg -TB spot + -Neg Crag serum, legionella ag urine, Blasto ab, Histoplasma ab Chronic Hep C- VL 3.2 million copies -CT abd- liver unremarkable -Hep Bc ab+, Not immune for Hep A Sepsis 2/2 to bacteremia (at OSH) Likely source is skin ulcer Blood Cx 05/12/18 at [place] [facility] -Bcx 05/12 and (here) NTD 2d echo: no vegetations 05/15 CXR: Right midlung nodule. Absence of this finding on previous study makes this more likely to be a focus of inflammation, but rapidly growing neoplasm not excludable. Left basilar hazy opacity. Most likely a moderate to large pleural effusion.Component of infiltrate or atelectasis is also possible 05/12 CXR: Asymmetric ill-defined confluent groundglass opacity within the left mid/inferior lung, of uncertain etiology. B/l LE necrotic ulcer and toes- acute on chronci, ischemic w/ likely superinfection- likely non-salvageable per surgery -05/23 SP B/l BKA Afib w/ RVR Encephalopathy , improving -CT head w/wo: No acute intracranial abnormalities. Mild atrophy of the brain. Nonspecific white matter hypoattenuation probably due to chronic small vessel disease. Likely secondary to sepsis Cerebrovascular accident. Hypertension. Sacral decubitus ulcers. Bipolar disorder. Coronary artery disease. Plan - Continue Levaquin #19(abx d#32) and flagyl #25 for cavitary/aspiration PNA -low threshold to switch Cefepime and Flagyl to Meropenem if decompensates -05/26 SP IV Vancomycin #15, Cefepime #15 -Per Dept of Public health and to aid on discharge planning back to SNF, will cont empiric TB regimen with DONN (started on 05/26- ); Levaquin instead of Rifampin or Rifabutin given multiple drug interactions of Rifampin (w/ Amiodarone, quetiapine, metoprolol) -Dept of wants to treat empirically until final AFB culture results -monitor LFTs -Airborne isolation -f/u final AFB sp cx -f/u cocci ab, fungal sp cx, - Wound care - Monitor CBC and Temps -Cdiff if diarrhea -Sx f/u -Discharge approval per Dept of Health Thank you for this consult. We will continue to follow the patient during this hospitalization. Discussed with RN Subjective Allergies: Coded Allergies: MILK (Verified Allergy, Unknown, 02/02/18) Subjective afebrile recurrent leukocytosis , imrpoving more alert at 2l NC LFts normal Objective Vital Signs Last 24 Hour Vital Signs Date Time Temp Pulse Resp B/P (MAP) Pulse Ox O2 Delivery O2 Flow Rate FiO2 06/14/18 04:00 97.7 101 18 117/88 (98) 100 06/14/18 00:00 97.7 98 19 134/84 (101) 100 06/13/18 21:00 Nasal Cannula 2.0 Nasal Cannula 2.0 06/13/18 20:00 98.1 75 20 136/88 (104) 100 06/13/18 19:52 69 16 Nasal Cannula 2.0 28 06/13/18 19:52 Nasal Cannula 2.0 28 06/13/18 19:52 99 Nasal Cannula 2.0 28 06/13/18 16:00 98.6 66 20 131/98 (109) 96 06/13/18 11:50 97.9 101 21 145/94 (111) 99 Height (Feet): 6 Height (Inches): 5.00 Weight (Pounds): 170 Objective Gen: NAD. Mumbling HEENT: NCAT, MMM, EOMI, No Oral lesion, no scleral icterus NECK: full range of motion, supple, no meningismus, No LAD, No JVD LUNGS: CTAB, No W/C, No Accessory muscle use CARDS: RRR, S1, S2, No M/R/G ABD: Soft, NT, ND, No R/G, + BS, No HSM, No Masses : Deferred Ext: C/C/E, Pulses 2+ B/L (DP, Rad) NEURO: A/O x 0, Strength and Sensation Grossly intact PSYCH: mood/affect normal SKIN: Left foot wound. No purulent drainage, Feet now bandaged Current Medications Medications (Trade) Dose Ordered Sig/Erlin Route PRN Reason Start Time Stop Time Status Last Admin Dose Admin Al Hydroxide/Mg Hydroxide (Mylanta) 15 ml Q6H PRN ORAL DYSPEPSIA 05/26/18 18:30 06/22/18 18:15 Amiodarone HCl (Cordarone) 200 mg DAILY ORAL 05/27/18 09:00 06/17/18 08:59 06/14/18 08:58 Apixaban (Eliquis) 5 mg Q12HR ORAL 06/05/18 21:00 07/05/18 20:59 06/14/18 08:59 Chlorhexidine Gluconate (Yari-Hex 2%) 1 applic DAILY@1999 TOPIC 05/26/18 20:00 06/23/18 19:59 06/13/18 20:00 Diphenhydramine HCl (Benadryl) 25 mg Q8H PRN ORAL Itching/Pruritis 05/26/18 16:46 06/22/18 16:45 06/05/18 16:53 Docusate Sodium (Colace) 100 mg TWICE A DAY ORAL 05/26/18 18:00 06/22/18 17:59 06/12/18 17:24 Ethambutol HCl (Myambutol) 1,200 mg DAILY ORAL 05/27/18 09:00 06/25/18 13:59 06/14/18 08:59 Hydromorphone HCl (Dilaudid) 3 mg Q3H PRN IVP Severe Pain (Pain Scale 7-10) 06/10/18 15:15 06/17/18 15:14 06/14/18 09:04 Isoniazid (Inh) 300 mg DAILY ORAL 05/27/18 09:00 06/25/18 13:59 06/14/18 09:00 Levofloxacin (Levaquin) 500 mg DAILY ORAL 06/09/18 09:00 06/25/18 08:59 06/14/18 09:01 Lorazepam (Ativan 2mg/ml 1ml) 1 mg Q4H PRN IV For Anxiety 06/06/18 17:15 06/14/18 18:00 Magnesium Hydroxide (Mom) 30 ml BIDPRN PRN ORAL Constipation 05/26/18 18:30 06/22/18 18:15 Metronidazole (Flagyl) 500 mg Q8HR ORAL 06/08/18 22:00 06/15/18 21:59 06/14/18 05:30 Ondansetron HCl (Zofran) 4 mg Q6H PRN IVP Nausea & Vomiting 05/26/18 18:30 06/22/18 18:15 Polyethylene Glycol (Miralax) 17 gm DAILY ORAL 05/27/18 09:00 06/16/18 10:59 06/12/18 09:17 Pregabalin (Lyrica) 25 mg THREE TIMES A DAY ORAL 06/03/18 18:00 07/03/18 17:59 06/14/18 09:00 Pyrazinamide (Pza) 1,500 mg DAILY ORAL 05/27/18 09:00 06/25/18 13:59 06/14/18 09:00 Pyridoxine HCl (Vitamin B6) 50 mg DAILY ORAL 05/27/18 09:00 06/25/18 13:59 06/14/18 08:59 Sennosides (Senokot) 8.6 mg BIDPRN PRN ORAL Constipation 05/26/18 18:30 06/22/18 18:15 Sodium Hypochlorite (Dakin's Quarter Strength) 1 applic DAILY TOPIC 05/27/18 09:00 06/25/18 16:00 06/14/18 09:04 Alma Elkins M.D. Jun 14, 2018 10:52
[2018-06-14 12:00] VITALS: BP 134/95
--- NOTE | 2018-06-14 12:30 | Cardiac Electrophysiology PN ---
Assessment/Plan Assessment/Plan 1. Paroxysmal Atrial fib/flutter with RVR. Converted to SR when on tele. Continue Digoxin 0.125 daily, Metoprolol 50 bid , Amiodarone 200 daily and Eliquis 5 bid 2. Fever, cough, sepsis on antibiotic and still in respiratory isolation. On INH, ETB, PZA 3. History of dementia and severe psychosis, on Seroquel. 4. Severe bilateral leg ulcers. S/P Bilateral AKA by Dr. Osuna 5. Sacral Decubitus DW RN Subjective Subjective Still in Resp isolation awaiting department of health clearance Objective Last 24 Hour Vital Signs Date Time Temp Pulse Resp B/P (MAP) Pulse Ox O2 Delivery O2 Flow Rate FiO2 06/14/18 04:00 97.7 101 18 117/88 (98) 100 06/14/18 00:00 97.7 98 19 134/84 (101) 100 06/13/18 21:00 Nasal Cannula 2.0 Nasal Cannula 2.0 06/13/18 20:00 98.1 75 20 136/88 (104) 100 06/13/18 19:52 69 16 Nasal Cannula 2.0 28 06/13/18 19:52 Nasal Cannula 2.0 28 06/13/18 19:52 99 Nasal Cannula 2.0 28 06/13/18 16:00 98.6 66 20 131/98 (109) 96 Intake and Output 06/13/18 06/14/18 19:00 07:00 Intake Total 240 ml 120 ml Output Total 400 ml Balance 240 ml -280 ml Intake Oral 240 ml 120 ml Output Urine Total 400 ml Objective HEAD AND NECK: Mild JVD. LUNGS: Coarse rhonchi. CARDIOVASCULAR: Irregular S1 and S2 with no murmur. ABDOMEN: Soft. EXTREMITIES: S/P Bilateral AKA Amandeep Arora MD Jun 14, 2018 12:30
[2018-06-14 16:00] VITALS: BP 139/85
--- NOTE | 2018-06-14 17:06 | Internal Med Progress Note ---
Subjective Physician Name Pedro Caban Attending Physician Pedro Caban MD Current Medications Medications (Trade) Dose Ordered Sig/Erlin Route PRN Reason Start Time Stop Time Status Last Admin Dose Admin Al Hydroxide/Mg Hydroxide (Mylanta) 15 ml Q6H PRN ORAL DYSPEPSIA 05/26/18 18:30 06/22/18 18:15 Amiodarone HCl (Cordarone) 200 mg DAILY ORAL 05/27/18 09:00 06/17/18 08:59 06/14/18 08:58 Apixaban (Eliquis) 5 mg Q12HR ORAL 06/05/18 21:00 07/05/18 20:59 06/14/18 08:59 Chlorhexidine Gluconate (Yari-Hex 2%) 1 applic DAILY@1999 TOPIC 05/26/18 20:00 06/23/18 19:59 06/13/18 20:00 Diphenhydramine HCl (Benadryl) 25 mg Q8H PRN ORAL Itching/Pruritis 05/26/18 16:46 06/22/18 16:45 06/05/18 16:53 Docusate Sodium (Colace) 100 mg TWICE A DAY ORAL 05/26/18 18:00 06/22/18 17:59 06/12/18 17:24 Ethambutol HCl (Myambutol) 1,200 mg DAILY ORAL 05/27/18 09:00 06/25/18 13:59 06/14/18 08:59 Hydromorphone HCl (Dilaudid) 2 mg Q4H PRN IVP Severe Pain (Pain Scale 7-10) 06/14/18 11:45 06/21/18 11:44 06/14/18 14:42 Isoniazid (Inh) 300 mg DAILY ORAL 05/27/18 09:00 06/25/18 13:59 06/14/18 09:00 Levofloxacin (Levaquin) 500 mg DAILY ORAL 06/09/18 09:00 06/25/18 08:59 06/14/18 09:01 Lorazepam (Ativan 2mg/ml 1ml) 1 mg Q4H PRN IV For Anxiety 06/06/18 17:15 06/14/18 18:00 Magnesium Hydroxide (Mom) 30 ml BIDPRN PRN ORAL Constipation 05/26/18 18:30 06/22/18 18:15 Metronidazole (Flagyl) 500 mg Q8HR ORAL 06/08/18 22:00 06/15/18 21:59 06/14/18 13:14 Ondansetron HCl (Zofran) 4 mg Q6H PRN IVP Nausea & Vomiting 05/26/18 18:30 06/22/18 18:15 Polyethylene Glycol (Miralax) 17 gm DAILY ORAL 05/27/18 09:00 06/16/18 10:59 06/12/18 09:17 Pregabalin (Lyrica) 25 mg THREE TIMES A DAY ORAL 06/03/18 18:00 07/03/18 17:59 06/14/18 13:14 Pyrazinamide (Pza) 1,500 mg DAILY ORAL 05/27/18 09:00 06/25/18 13:59 06/14/18 09:00 Pyridoxine HCl (Vitamin B6) 50 mg DAILY ORAL 05/27/18 09:00 06/25/18 13:59 06/14/18 08:59 Sennosides (Senokot) 8.6 mg BIDPRN PRN ORAL Constipation 05/26/18 18:30 06/22/18 18:15 Sodium Hypochlorite (Dakin's Quarter Strength) 1 applic DAILY TOPIC 05/27/18 09:00 06/25/18 16:00 06/14/18 09:04 Allergies: Coded Allergies: MILK (Verified Allergy, Unknown, 02/02/18) Subjective awake, alert, responsive, C/O stumps pain. Objective Last Vital Signs Date Time Temp Pulse Resp B/P (MAP) Pulse Ox O2 Delivery O2 Flow Rate FiO2 06/14/18 16:00 98.4 130 139/85 (103) 06/14/18 12:00 16 99 06/14/18 09:00 Nasal Cannula 2.0 Nasal Cannula 2.0 06/13/18 19:52 28 Intake and Output 06/13/18 06/14/18 19:00 07:00 Intake Total 240 ml 120 ml Output Total 400 ml Balance 240 ml -280 ml Intake Oral 240 ml 120 ml Output Urine Total 400 ml Objective General: No acute distress, awake and alert HEENT: NCAT, sclera anicteric, PERRL, EOMI. Neck: Supple, no significant jugular venous distention, Lungs: Fair inspiratory effort, Decrease air on bases, no Wheeze or Rales. Heart: Irregular rate and rhythm, normal S1/S2, no murmurs Abdomen: soft, nontender, nondistended. Normoactive bowel sounds. / Rectal: Refused and deferred. Extremities: No Cyanosis , clubbing or edema. Bilateral stumps intact with chaitanya, LUE piccline. 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 12.10/05 Small lung cavitary lesion/ likely due to PNA cavitary/aspiration PNA acute encephalopathy, likely secondary to sepsis atrial fibrillation with rapid ventricular response borderline hypotension- resolved acute DVT R SFV hepatitis C hypertension coronary artery disease history of CVA dementia bipolar disorder protein calorie malnutrition anemia Plan: Abx: Levaquin and Flagyl F/U with ID recommendations wound care DVT prophylaxis: Eliquis Bid Full code On Lyrica 25 mg TID Discharge approval per Dept of Health -Per Dept of Public health and to aid on discharge planning back to SNF, will cont empiric TB regimen with DONN (started on 05/26- ); Levaquin instead of Rifampin or Rifabutin given multiple drug interactions of Rifampin (w/ Amiodarone, quetiapine, metoprolol) -Dept of wants to treat empirically until final AFB culture results -monitor LFTs CT chest: IMPRESSION: * Interval resolution of the cavitary component associated with the previously described anterior right upper lobe opacity. It is slightly decreased in size and more nodular in appearance on today's exam. Additional patchy opacities in the posterior right upper lobe are also slightly decreased in size and appear more nodular (previously were groundglass). Findings likely related to evolving infectious or inflammatory lesions however continued follow-up is recommended to assure resolution/exclude the possibility of neoplastic etiologies. * Small bilateral pleural effusions and adjacent compressive atelectasis in the bilateral posterior lower lobes. * Cardiomegaly and coronary artery disease. * Debris within the esophagus to the level of the petros. Note this isn't considered a risk for aspiration. Equivocal esophageal wall thickening again noted. Again, correlation with endoscopy can be obtained. * Previously described lesion in the spleen better appreciated on the prior contrast-enhanced exam. It appears grossly unchanged. * Unchanged borderline retroperitoneal and retrocrural adenopathy. Pedro Caban MD Jun 14, 2018 17:06
[2018-06-14 20:00] VITALS: BP 146/88
[2018-06-14] MEDS: Dyna-Hex 2% Top Sol 2oz TOPIC SCH (21:03)
[2018-06-14 21:34] LABS: APPEARANCE,URINE CLEAR; BILIRUBIN, URINE 1+ (NEGATIVE); COLOR,URINE BROWN; GLUCOSE, URINE (UA) NEGATIVE (NEGATIVE); KETONES,URINE 1+ (NEGATIVE); LEUKOCYTE ESTERASE ,URINE 2+ (NEGATIVE); NITRITE,URINE POSITIVE (NEGATIVE); PH,URINE 6.5 (4.5-8.0); PROTEIN,URINE 2+ (NEGATIVE); UROBILINOGEN,URINE 1 MG/DL (0.0-1.0)
[2018-06-15] VITALS: BP 137/86
[2018-06-15 04:00] VITALS: BP 135/88
[2018-06-15] MEDS: metroNIDAZOLE 500mg tab ORAL SCH ×2 (05:20→13:30)
[2018-06-15 05:57] LABS: HEMOGLOBIN 7.9 G/DL (14.2-18.0); MEAN CORPUSCULAR VOLUME 92 FL (80-99); PLATELET COUNT 140 K/UL (150-450); WHITE BLOOD COUNT 12.8 K/UL (4.8-10.8)
[2018-06-15 06:16] LABS: ALANINE AMINOTRANSFERASE 6 U/L (12-78); ALBUMIN 1.6 G/DL (3.4-5.0); ALBUMIN/GLOBULIN RATIO 0.3 (1.0-2.7); ALKALINE PHOSPHATASE 129 U/L (46-116); ANION GAP 4 mmol/L (5-15); ASPARTATE AMINO TRANSFERASE 25 U/L (15-37); BLOOD UREA NITROGEN 10 mg/dL (7-18); CALCIUM 7.9 MG/DL (8.5-10.1); CARBON DIOXIDE 31 MMOL/L (21-32); CHLORIDE 105 MMOL/L (98-107); CREATININE 0.6 MG/DL (0.55-1.30); POTASSIUM 3.9 MMOL/L (3.5-5.1); SODIUM 139 MMOL/L (136-145)
[2018-06-15 07:57] VITALS: BP 133/85
[2018-06-15] MEDS: Dakin's 0.125% Soln (Quarter Strength) 16oz TOPIC SCH (09:00)
[2018-06-15] MEDS: Miralax 17gm pkt ORAL SCH (09:00)
[2018-06-15] MEDS: Docusate 100mg cap ORAL SCH ×2 (09:00→18:00)
[2018-06-15] MEDS: Lyrica 25mg cap ORAL SCH ×4 (10:11→18:22)
[2018-06-15] MEDS: Isoniazid 300mg tab ORAL SCH (10:12)
[2018-06-15] MEDS: Amiodarone 200mg tab ORAL SCH (10:12)
[2018-06-15] MEDS: Levofloxacin 500mg tab ORAL SCH (10:12)
[2018-06-15] MEDS: Pyridoxine 50mg tab ORAL SCH (10:13)
[2018-06-15] MEDS: Eliquis 2.5mg tablet ORAL SCH (10:29)
--- NOTE | 2018-06-15 10:46 | Cardiac Electrophysiology PN ---
Assessment/Plan Assessment/Plan 1. Paroxysmal Atrial fib/flutter with RVR. Continue Digoxin 0.125 daily, Metoprolol 50 bid , Amiodarone 200 daily and Eliquis 5 bid Check Dig level 2. Fever, cough, sepsis on antibiotic and still in respiratory isolation. On INH, ETB, PZA 3. History of dementia and severe psychosis, on Seroquel. 4. Severe bilateral leg ulcers. S/P Bilateral AKA by Dr. Osuna 5. Sacral Decubitus DW RN Subjective Subjective Still in Resp isolation. No CP or SOB Objective Last 24 Hour Vital Signs Date Time Temp Pulse Resp B/P (MAP) Pulse Ox O2 Delivery O2 Flow Rate FiO2 06/15/18 07:57 98.4 96 21 133/85 (101) 98 06/15/18 04:00 97.7 110 20 135/88 (104) 100 06/15/18 00:00 97.9 88 20 137/86 (103) 100 06/14/18 21:00 Nasal Cannula 2.0 Nasal Cannula 2.0 06/14/18 20:00 98.1 120 20 146/88 (107) 100 06/14/18 16:00 98.4 130 139/85 (103) 06/14/18 12:00 98.2 137 16 134/95 (108) 99 Intake and Output 06/14/18 06/15/18 19:00 07:00 Intake Total 460 ml 120 ml Output Total 300 ml Balance 160 ml 120 ml Intake Oral 460 ml 120 ml Output Urine Total 300 ml # Voids 1 3 # Bowel Movements 1 1 Laboratory Tests Test 06/14/18 18:25 06/15/18 05:30 Urine Color Brown Urine Appearance Clear Urine pH 6.5 (4.5-8.0) Urine Specific [place] 1.015 (1.005-1.035) Urine Protein 2+ (NEGATIVE) H Urine Glucose (UA) Negative (NEGATIVE) Urine Ketones 1+ (NEGATIVE) H Urine Blood Negative (NEGATIVE) Urine Nitrite Positive (NEGATIVE) H Urine Bilirubin 1+ (NEGATIVE) H Urine Ictotest Negative (NEGATIVE) Urine Urobilinogen 1 MG/DL (0.0-1.0) H Urine Leukocyte Esterase 2+ (NEGATIVE) H Urine RBC 0-2 /HPF (0 - 0) H Urine WBC 2-4 /HPF (0 - 0) Urine Squamous Epithelial Cells None /LPF (NONE/OCC) Urine Amorphous Sediment Few /LPF (NONE) H Urine Bacteria Few /HPF (NONE) White Blood Count 12.8 K/UL (4.8-10.8) H Red Blood Count 2.70 M/UL (4.70-6.10) L Hemoglobin 7.9 G/DL (14.2-18.0) L Hematocrit 25.0 % (42.0-52.0) L Mean Corpuscular Volume 92 FL (80-99) Mean Corpuscular Hemoglobin 29.4 PG (27.0-31.0) Mean Corpuscular Hemoglobin Concent 31.8 G/DL (32.0-36.0) L Red Cell Distribution Width 14.0 % (11.6-14.8) Platelet Count 140 K/UL (150-450) L Mean Platelet Volume 5.4 FL (6.5-10.1) L Neutrophils (%) (Auto) % (45.0-75.0) Lymphocytes (%) (Auto) % (20.0-45.0) Monocytes (%) (Auto) % (1.0-10.0) Eosinophils (%) (Auto) % (0.0-3.0) Basophils (%) (Auto) % (0.0-2.0) Differential Total Cells Counted 100 Neutrophils % (Manual) 82 % (45-75) H Lymphocytes % (Manual) 11 % (20-45) L Monocytes % (Manual) 7 % (1-10) Eosinophils % (Manual) 0 % (0-3) Basophils % (Manual) 0 % (0-2) Band Neutrophils 0 % (0-8) Platelet Estimate Decreased L Platelet Morphology Normal Hypochromasia 1+ Anisocytosis 1+ Sodium Level 139 MMOL/L (136-145) Potassium Level 3.9 MMOL/L (3.5-5.1) Chloride Level 105 MMOL/L (98-107) Carbon Dioxide Level 31 MMOL/L (21-32) Anion Gap 4 mmol/L (5-15) L Blood Urea Nitrogen 10 mg/dL (7-18) Creatinine 0.6 MG/DL (0.55-1.30) Estimat Glomerular Filtration Rate > 60 mL/min (>60) Glucose Level 101 MG/DL (74-106) Calcium Level 7.9 MG/DL (8.5-10.1) L Phosphorus Level 2.0 MG/DL (2.5-4.9) L Magnesium Level 1.2 MG/DL (1.8-2.4) L Total Bilirubin 1.0 MG/DL (0.2-1.0) Aspartate Amino Transf (AST/SGOT) 25 U/L (15-37) Alanine Aminotransferase (ALT/SGPT) 6 U/L (12-78) L Alkaline Phosphatase 129 U/L (46-116) H Total Protein 6.2 G/DL (6.4-8.2) L Albumin 1.6 G/DL (3.4-5.0) L Globulin 4.6 g/dL Albumin/Globulin Ratio 0.3 (1.0-2.7) L Objective HEAD AND NECK: Mild JVD. LUNGS: Coarse rhonchi. CARDIOVASCULAR: Irregular S1 and S2 with no murmur. ABDOMEN: Soft. EXTREMITIES: S/P Bilateral Amandeep Mart MD Jun 15, 2018 10:46
[2018-06-15 12:00] VITALS: BP 128/75
--- NOTE | 2018-06-15 15:29 | Infectious Diseases Prog Note ---
Assessment/Plan Assessment/Plan Assessment/Plan 68 yo male who was transferred from [place] where he initially presented for AMS from [facility]. Low grade fever, SP Leukocytosis ,recurrent- -Bcx NTD Small lung cavitary lesion/ PNA- suspect likely to aspiration; lower suspicion for TB and/or fungal etiologies -06/08 CT chest: * Interval resolution of the cavitary component associated with the previously described anterior right upper lobe opacity. It is slightly decreased in size and more nodular in appearance on today's exam. Additional patchy opacities in the posterior right upper lobe are also slightly decreased in size and appear more nodular (previously were groundglass). Findings likely related to evolving infectious or inflammatory lesions however continued follow-up is recommended to assure resolution/exclude the possibility of neoplastic etiologies. -06/05 CXR: Improved right-sided pleural effusion and basilar parenchymal opacities, over 6 days. Persistent left-sided pleural effusion. -CT c/a/p: 10 mm opacity in the peripheral anterolateral right upper lobe with small central cavitation. Patchy groundglass opacity in the posterior right upper lobe. Suspect that these represent inflammatory/infectious lesions, but neoplastic etiology of either is certainly possible. Large left and moderate right pleural effusions. Resultant compressive atelectasis of portions of the lower lobes. Equivocal distal esophageal wall thickening, could indicate esophagitis if real -sp cx usual resp noah -AFB sp cx; smear neg x4; MTB PCR neg -TB spot + -Neg Crag serum, legionella ag urine, Blasto ab, Histoplasma ab Chronic Hep C- VL 3.2 million copies -CT abd- liver unremarkable -Hep Bc ab+, Not immune for Hep A Sepsis 2/2 to bacteremia (at OSH) Likely source is skin ulcer Blood Cx 05/12/18 at [place] [facility] -Bcx 05/12 and (here) NTD 2d echo: no vegetations 05/15 CXR: Right midlung nodule. Absence of this finding on previous study makes this more likely to be a focus of inflammation, but rapidly growing neoplasm not excludable. Left basilar hazy opacity. Most likely a moderate to large pleural effusion.Component of infiltrate or atelectasis is also possible 05/12 CXR: Asymmetric ill-defined confluent groundglass opacity within the left mid/inferior lung, of uncertain etiology. B/l LE necrotic ulcer and toes- acute on chronci, ischemic w/ likely superinfection- likely non-salvageable per surgery -05/23 SP B/l BKA Afib w/ RVR Encephalopathy , improving -CT head w/wo: No acute intracranial abnormalities. Mild atrophy of the brain. Nonspecific white matter hypoattenuation probably due to chronic small vessel disease. Likely secondary to sepsis Cerebrovascular accident. Hypertension. Sacral decubitus ulcers. Bipolar disorder. Coronary artery disease. Plan - Continue Levaquin #20(abx d#33) and flagyl #/ for cavitary/aspiration PNA -low threshold to switch Cefepime and Flagyl to Meropenem if decompensates -05/26 SP IV Vancomycin #15, Cefepime #15 -Per Dept of Public health and to aid on discharge planning back to SNF, will cont empiric TB regimen with DONN (started on 05/26- ); Levaquin instead of Rifampin or Rifabutin given multiple drug interactions of Rifampin (w/ Amiodarone, quetiapine, metoprolol) -Dept of wants to treat empirically until final AFB culture results -monitor LFTs -ok To discharge to SNF- cleared by Dept of Health and they will be following him over SNF for TB treatment management -f/u cocci ab, fungal sp cx, - Wound care - Monitor CBC and Temps -Cdiff if diarrhea -Sx f/u Thank you for this consult. We will continue to follow the patient during this hospitalization. Discussed with RN Subjective Allergies: Coded Allergies: MILK (Verified Allergy, Unknown, 02/02/18) Subjective afebrile recurrent leukocytosis , imrpoving more alert at 2l NC LFts normal for discharge Objective Vital Signs Last 24 Hour Vital Signs Date Time Temp Pulse Resp B/P (MAP) Pulse Ox O2 Delivery O2 Flow Rate FiO2 06/15/18 07:57 98.4 96 21 133/85 (101) 98 06/15/18 06:40 Nasal Cannula 2.0 28 06/15/18 06:40 94 Nasal Cannula 2.0 28 06/15/18 04:00 97.7 110 20 135/88 (104) 100 06/15/18 00:00 97.9 88 20 137/86 (103) 100 06/14/18 21:00 Nasal Cannula 2.0 Nasal Cannula 2.0 06/14/18 20:00 98.1 120 20 146/88 (107) 100 06/14/18 16:00 98.4 130 139/85 (103) Height (Feet): 6 Height (Inches): 5.00 Weight (Pounds): 170 Objective Gen: NAD. Mumbling HEENT: NCAT, MMM, EOMI, No Oral lesion, no scleral icterus NECK: full range of motion, supple, no meningismus, No LAD, No JVD LUNGS: CTAB, No W/C, No Accessory muscle use CARDS: RRR, S1, S2, No M/R/G ABD: Soft, NT, ND, No R/G, + BS, No HSM, No Masses : Deferred Ext: C/C/E, Pulses 2+ B/L (DP, Rad) NEURO: A/O x 0, Strength and Sensation Grossly intact PSYCH: mood/affect normal SKIN: Left foot wound. No purulent drainage, Feet now bandaged Laboratory Tests Test 06/14/18 18:25 06/15/18 05:30 Urine Color Brown Urine Appearance Clear Urine pH 6.5 (4.5-8.0) Urine Specific [place] 1.015 (1.005-1.035) Urine Protein 2+ (NEGATIVE) H Urine Glucose (UA) Negative (NEGATIVE) Urine Ketones 1+ (NEGATIVE) H Urine Blood Negative (NEGATIVE) Urine Nitrite Positive (NEGATIVE) H Urine Bilirubin 1+ (NEGATIVE) H Urine Ictotest Negative (NEGATIVE) Urine Urobilinogen 1 MG/DL (0.0-1.0) H Urine Leukocyte Esterase 2+ (NEGATIVE) H Urine RBC 0-2 /HPF (0 - 0) H Urine WBC 2-4 /HPF (0 - 0) Urine Squamous Epithelial Cells None /LPF (NONE/OCC) Urine Amorphous Sediment Few /LPF (NONE) H Urine Bacteria Few /HPF (NONE) White Blood Count 12.8 K/UL (4.8-10.8) H Red Blood Count 2.70 M/UL (4.70-6.10) L Hemoglobin 7.9 G/DL (14.2-18.0) L Hematocrit 25.0 % (42.0-52.0) L Mean Corpuscular Volume 92 FL (80-99) Mean Corpuscular Hemoglobin 29.4 PG (27.0-31.0) Mean Corpuscular Hemoglobin Concent 31.8 G/DL (32.0-36.0) L Red Cell Distribution Width 14.0 % (11.6-14.8) Platelet Count 140 K/UL (150-450) L Mean Platelet Volume 5.4 FL (6.5-10.1) L Neutrophils (%) (Auto) % (45.0-75.0) Lymphocytes (%) (Auto) % (20.0-45.0) Monocytes (%) (Auto) % (1.0-10.0) Eosinophils (%) (Auto) % (0.0-3.0) Basophils (%) (Auto) % (0.0-2.0) Differential Total Cells Counted 100 Neutrophils % (Manual) 82 % (45-75) H Lymphocytes % (Manual) 11 % (20-45) L Monocytes % (Manual) 7 % (1-10) Eosinophils % (Manual) 0 % (0-3) Basophils % (Manual) 0 % (0-2) Band Neutrophils 0 % (0-8) Platelet Estimate Decreased L Platelet Morphology Normal Hypochromasia 1+ Anisocytosis 1+ Sodium Level 139 MMOL/L (136-145) Potassium Level 3.9 MMOL/L (3.5-5.1) Chloride Level 105 MMOL/L (98-107) Carbon Dioxide Level 31 MMOL/L (21-32) Anion Gap 4 mmol/L (5-15) L Blood Urea Nitrogen 10 mg/dL (7-18) Creatinine 0.6 MG/DL (0.55-1.30) Estimat Glomerular Filtration Rate > 60 mL/min (>60) Glucose Level 101 MG/DL (74-106) Calcium Level 7.9 MG/DL (8.5-10.1) L Phosphorus Level 2.0 MG/DL (2.5-4.9) L Magnesium Level 1.2 MG/DL (1.8-2.4) L Total Bilirubin 1.0 MG/DL (0.2-1.0) Aspartate Amino Transf (AST/SGOT) 25 U/L (15-37) Alanine Aminotransferase (ALT/SGPT) 6 U/L (12-78) L Alkaline Phosphatase 129 U/L (46-116) H Total Protein 6.2 G/DL (6.4-8.2) L Albumin 1.6 G/DL (3.4-5.0) L Globulin 4.6 g/dL Albumin/Globulin Ratio 0.3 (1.0-2.7) L Digoxin Level < 0.3 NG/ML (0.5-2.0) L Current Medications Medications (Trade) Dose Ordered Sig/Erlin Route PRN Reason Start Time Stop Time Status Last Admin Dose Admin Al Hydroxide/Mg Hydroxide (Mylanta) 15 ml Q6H PRN ORAL DYSPEPSIA 05/26/18 18:30 06/22/18 18:15 Amiodarone HCl (Cordarone) 200 mg DAILY ORAL 05/27/18 09:00 06/17/18 08:59 06/15/18 10:12 Apixaban (Eliquis) 5 mg Q12HR ORAL 06/05/18 21:00 07/05/18 20:59 06/15/18 10:29 Chlorhexidine Gluconate (Yari-Hex 2%) 1 applic DAILY@1999 TOPIC 05/26/18 20:00 06/23/18 19:59 06/14/18 21:03 Digoxin (Lanoxin) 0.125 mg DAILY ORAL 06/16/18 09:00 07/16/18 08:59 Diphenhydramine HCl (Benadryl) 25 mg Q8H PRN ORAL Itching/Pruritis 05/26/18 16:46 06/22/18 16:45 06/05/18 16:53 Docusate Sodium (Colace) 100 mg TWICE A DAY ORAL 05/26/18 18:00 06/22/18 17:59 06/12/18 17:24 Ethambutol HCl (Myambutol) 1,200 mg DAILY ORAL 05/27/18 09:00 06/25/18 13:59 06/15/18 10:15 Hydromorphone HCl (Dilaudid) 2 mg Q4H PRN IVP Severe Pain (Pain Scale 7-10) 06/14/18 11:45 06/21/18 11:44 06/15/18 11:21 Isoniazid (Inh) 300 mg DAILY ORAL 05/27/18 09:00 06/25/18 13:59 06/15/18 10:12 Levofloxacin (Levaquin) 500 mg DAILY ORAL 06/09/18 09:00 06/25/18 08:59 06/15/18 10:12 Magnesium Hydroxide (Mom) 30 ml BIDPRN PRN ORAL Constipation 05/26/18 18:30 06/22/18 18:15 Metronidazole (Flagyl) 500 mg Q8HR ORAL 06/08/18 22:00 06/15/18 21:59 06/15/18 13:30 Ondansetron HCl (Zofran) 4 mg Q6H PRN IVP Nausea & Vomiting 05/26/18 18:30 06/22/18 18:15 Polyethylene Glycol (Miralax) 17 gm DAILY ORAL 05/27/18 09:00 06/16/18 10:59 06/12/18 09:17 Pregabalin (Lyrica) 25 mg THREE TIMES A DAY ORAL 06/03/18 18:00 07/03/18 17:59 06/15/18 13:29 Pyrazinamide (Pza) 1,500 mg DAILY ORAL 05/27/18 09:00 06/25/18 13:59 06/15/18 10:11 Pyridoxine HCl (Vitamin B6) 50 mg DAILY ORAL 05/27/18 09:00 06/25/18 13:59 06/15/18 10:13 Sennosides (Senokot) 8.6 mg BIDPRN PRN ORAL Constipation 05/26/18 18:30 06/22/18 18:15 Sodium Hypochlorite (Dakin's Quarter Strength) 1 applic DAILY TOPIC 05/27/18 09:00 06/25/18 16:00 06/15/18 09:00 Alma Elkins M.D. Jun 15, 2018 15:29
[2018-06-15 16:00] VITALS: BP 116/72
[2018-06-15] MEDS ORDERED: PACERONE200 MG ORAL (16:13)
[2018-06-15] MEDS ORDERED: PYRIDOXINE HCL50 MG ORAL (16:13)
[2018-06-15] MEDS ORDERED: LANOXIN250 MCG ORAL (16:13)
[2018-06-15] MEDS ORDERED: MYAMBUTOL400 MG ORAL (16:13)
[2018-06-15] MEDS ORDERED: SENNA-GEN8.6 M1 ORAL (16:13)
[2018-06-15] MEDS ORDERED: LEVAQUIN500 MG ORAL (16:13)
[2018-06-15] MEDS ORDERED: PZA500 M1 ORAL (16:13)
[2018-06-15] MEDS ORDERED: FLAGYL500 MG ORAL (16:13)
[2018-06-15] MEDS ORDERED: INH300 MG ORAL (16:13)
--- NOTE | 2018-06-15 16:15 | Internal Med Progress Note ---
Subjective Physician Name Pedro Caban Attending Physician Pedro Caban MD Current Medications Medications (Trade) Dose Ordered Sig/Erlin Route PRN Reason Start Time Stop Time Status Last Admin Dose Admin Al Hydroxide/Mg Hydroxide (Mylanta) 15 ml Q6H PRN ORAL DYSPEPSIA 05/26/18 18:30 06/22/18 18:15 Amiodarone HCl (Cordarone) 200 mg DAILY ORAL 05/27/18 09:00 06/17/18 08:59 06/15/18 10:12 Apixaban (Eliquis) 5 mg Q12HR ORAL 06/05/18 21:00 07/05/18 20:59 06/15/18 10:29 Chlorhexidine Gluconate (Yari-Hex 2%) 1 applic DAILY@1999 TOPIC 05/26/18 20:00 06/23/18 19:59 06/14/18 21:03 Digoxin (Lanoxin) 0.125 mg DAILY ORAL 06/16/18 09:00 07/16/18 08:59 Diphenhydramine HCl (Benadryl) 25 mg Q8H PRN ORAL Itching/Pruritis 05/26/18 16:46 06/22/18 16:45 06/05/18 16:53 Docusate Sodium (Colace) 100 mg TWICE A DAY ORAL 05/26/18 18:00 06/22/18 17:59 06/12/18 17:24 Ethambutol HCl (Myambutol) 1,200 mg DAILY ORAL 05/27/18 09:00 06/25/18 13:59 06/15/18 10:15 Hydromorphone HCl (Dilaudid) 2 mg Q4H PRN IVP Severe Pain (Pain Scale 7-10) 06/14/18 11:45 06/21/18 11:44 06/15/18 16:00 Isoniazid (Inh) 300 mg DAILY ORAL 05/27/18 09:00 06/25/18 13:59 06/15/18 10:12 Levofloxacin (Levaquin) 500 mg DAILY ORAL 06/09/18 09:00 06/25/18 08:59 06/15/18 10:12 Magnesium Hydroxide (Mom) 30 ml BIDPRN PRN ORAL Constipation 05/26/18 18:30 06/22/18 18:15 Metronidazole (Flagyl) 500 mg Q8HR ORAL 06/08/18 22:00 06/15/18 21:59 06/15/18 13:30 Ondansetron HCl (Zofran) 4 mg Q6H PRN IVP Nausea & Vomiting 05/26/18 18:30 06/22/18 18:15 Polyethylene Glycol (Miralax) 17 gm DAILY ORAL 05/27/18 09:00 06/16/18 10:59 06/12/18 09:17 Pregabalin (Lyrica) 25 mg THREE TIMES A DAY ORAL 06/03/18 18:00 07/03/18 17:59 06/15/18 13:29 Pyrazinamide (Pza) 1,500 mg DAILY ORAL 05/27/18 09:00 06/25/18 13:59 06/15/18 10:11 Pyridoxine HCl (Vitamin B6) 50 mg DAILY ORAL 05/27/18 09:00 06/25/18 13:59 06/15/18 10:13 Sennosides (Senokot) 8.6 mg BIDPRN PRN ORAL Constipation 05/26/18 18:30 06/22/18 18:15 Sodium Hypochlorite (Dakin's Quarter Strength) 1 applic DAILY TOPIC 05/27/18 09:00 06/25/18 16:00 06/15/18 09:00 Allergies: Coded Allergies: MILK (Verified Allergy, Unknown, 02/02/18) Subjective awake, alert, responsive, C/O less stumps pain. Objective Last Vital Signs Date Time Temp Pulse Resp B/P (MAP) Pulse Ox O2 Delivery O2 Flow Rate FiO2 06/15/18 09:00 Nasal Cannula 2.0 Nasal Cannula 2.0 06/15/18 07:57 98.4 96 21 133/85 (101) 98 06/15/18 06:40 28 Laboratory Tests Test 06/14/18 18:25 06/15/18 05:30 Urine Color Brown Urine Appearance Clear Urine pH 6.5 (4.5-8.0) Urine Specific [place] 1.015 (1.005-1.035) Urine Protein 2+ (NEGATIVE) H Urine Glucose (UA) Negative (NEGATIVE) Urine Ketones 1+ (NEGATIVE) H Urine Blood Negative (NEGATIVE) Urine Nitrite Positive (NEGATIVE) H Urine Bilirubin 1+ (NEGATIVE) H Urine Ictotest Negative (NEGATIVE) Urine Urobilinogen 1 MG/DL (0.0-1.0) H Urine Leukocyte Esterase 2+ (NEGATIVE) H Urine RBC 0-2 /HPF (0 - 0) H Urine WBC 2-4 /HPF (0 - 0) Urine Squamous Epithelial Cells None /LPF (NONE/OCC) Urine Amorphous Sediment Few /LPF (NONE) H Urine Bacteria Few /HPF (NONE) White Blood Count 12.8 K/UL (4.8-10.8) H Red Blood Count 2.70 M/UL (4.70-6.10) L Hemoglobin 7.9 G/DL (14.2-18.0) L Hematocrit 25.0 % (42.0-52.0) L Mean Corpuscular Volume 92 FL (80-99) Mean Corpuscular Hemoglobin 29.4 PG (27.0-31.0) Mean Corpuscular Hemoglobin Concent 31.8 G/DL (32.0-36.0) L Red Cell Distribution Width 14.0 % (11.6-14.8) Platelet Count 140 K/UL (150-450) L Mean Platelet Volume 5.4 FL (6.5-10.1) L Neutrophils (%) (Auto) % (45.0-75.0) Lymphocytes (%) (Auto) % (20.0-45.0) Monocytes (%) (Auto) % (1.0-10.0) Eosinophils (%) (Auto) % (0.0-3.0) Basophils (%) (Auto) % (0.0-2.0) Differential Total Cells Counted 100 Neutrophils % (Manual) 82 % (45-75) H Lymphocytes % (Manual) 11 % (20-45) L Monocytes % (Manual) 7 % (1-10) Eosinophils % (Manual) 0 % (0-3) Basophils % (Manual) 0 % (0-2) Band Neutrophils 0 % (0-8) Platelet Estimate Decreased L Platelet Morphology Normal Hypochromasia 1+ Anisocytosis 1+ Sodium Level 139 MMOL/L (136-145) Potassium Level 3.9 MMOL/L (3.5-5.1) Chloride Level 105 MMOL/L (98-107) Carbon Dioxide Level 31 MMOL/L (21-32) Anion Gap 4 mmol/L (5-15) L Blood Urea Nitrogen 10 mg/dL (7-18) Creatinine 0.6 MG/DL (0.55-1.30) Estimat Glomerular Filtration Rate > 60 mL/min (>60) Glucose Level 101 MG/DL (74-106) Calcium Level 7.9 MG/DL (8.5-10.1) L Phosphorus Level 2.0 MG/DL (2.5-4.9) L Magnesium Level 1.2 MG/DL (1.8-2.4) L Total Bilirubin 1.0 MG/DL (0.2-1.0) Aspartate Amino Transf (AST/SGOT) 25 U/L (15-37) Alanine Aminotransferase (ALT/SGPT) 6 U/L (12-78) L Alkaline Phosphatase 129 U/L (46-116) H Total Protein 6.2 G/DL (6.4-8.2) L Albumin 1.6 G/DL (3.4-5.0) L Globulin 4.6 g/dL Albumin/Globulin Ratio 0.3 (1.0-2.7) L Digoxin Level < 0.3 NG/ML (0.5-2.0) L Intake and Output 06/14/18 06/15/18 19:00 07:00 Intake Total 460 ml 120 ml Output Total 300 ml Balance 160 ml 120 ml Intake Oral 460 ml 120 ml Output Urine Total 300 ml # Voids 1 3 # Bowel Movements 1 1 Objective General: No acute distress, awake and alert HEENT: NCAT, sclera anicteric, PERRL, EOMI. Neck: Supple, no significant jugular venous distention, Lungs: Fair inspiratory effort, Decrease air on bases, no Wheeze or Rales. Heart: Irregular rate and rhythm, normal S1/S2, no murmurs Abdomen: soft, nontender, nondistended. Normoactive bowel sounds. / Rectal: Refused and deferred. Extremities: No Cyanosis , clubbing or edema. Bilateral stumps intact with chaitanya, LUE piccline. 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 12.418 Small lung cavitary lesion/ likely due to PNA cavitary/aspiration PNA acute encephalopathy, likely secondary to sepsis atrial fibrillation with rapid ventricular response borderline hypotension- resolved acute DVT R SFV hepatitis C hypertension coronary artery disease history of CVA dementia bipolar disorder protein calorie malnutrition anemia Plan: Abx: Levaquin and Flagyl F/U with ID recommendations wound care DVT prophylaxis: Eliquis Bid Full code Discharge approved per Dept of Health DC to SNF today, Remove piccline. Pedro Caban MD Jun 15, 2018 16:15
[2018-06-15] MEDS ORDERED: Tubing IV Secondary IV ONE (17:21)
[2018-06-15] MEDS ORDERED: NS 275ml ONE (17:21)
[2018-06-16] MEDS ORDERED: Digoxin 0.125mg tab ORAL SCH (09:00)
--- NOTE | 2018-06-16 14:22 | Discharge Summary ---
Discharge Summary Discharge Summary _ DATE OF ADMISSION: 05/12/2018 DATE OF DISCHARGE: 06/15/2018 DISCHARGED BY: Dr. Pedro Caban CONSULTANTS: Dr. Alma Osuna [facility] COURSE: Patient is a 68-year-old -[place] male, who presented with chief complaint of fever and altered mental status. Patient was admitted to [facility] on 04/07/2018 and was discharged to [facility]. According to staff at [facility], the patient had increased altered mental status for couple of days. The patient was transferred to [facility] for further evaluation. He was found to be febrile with temperature of 101F. Patient was transferred to [facility] for insurance purposes. He has medical history significant for CVA, hypertension, bilateral lower extremity decubiti ulcer, bipolar disorder and coronary artery disease. Patient has history of atrial fibrillation. He was followed by facility mechanic. He was continued on digoxin 0.25 mg daily, metoprolol 50 mg twice daily. He was continued on Eliquis 2.5 mg twice daily. He had borderline hypotension and was started on midodrine. WBC was elevated to 27. ID was consulted. Blood culture done on 05/12/2018 at [place] was growing gram-positive cocci. Patient with sepsis secondary to bacteremia, likely source skin ulcers. He was given cefepime and vancomycin. Surgery was called to evaluate and assist with care and management of patient wounds. Patient had chronic wounds on the sacrum, buttocks and lower extremities. Patient had multiple ulcerations to both lower extremities, wounds were irregular and malodorous. Both lower extremities were cool to touch. Toes have necrotic ulcerations. He had full-thickness pressure injury to sacrum with 60% slough and (+) epibole. Right buttock and ischial tuberosity with large wound with eschar, unstageable full-thickness. Both heels have DTI with blood blisters noted. Wounds have significantly deteriorated since last admission with new wounds noted on the lower extremities and buttocks. He was recommended wound care. He was placed on air- fluidized mattress, with frequent repositioning and offloading. Vascular surgeon was consulted. Patient has severe multilevel calcific arterial occlusive disease with absent pedal pulses. Both legs are not salvageable and patient will require cumim-rjo-aysa amputation. He was also evaluated by food stand manager who agreed that lower extremities are not salvageable and patient would benefit from above-knee amputation. Duplex of the lower extremity showed an acute DVT on the right femoral. He was continued on Eliquis. Blood pressure improved and he was taken off midodrine. Digoxin level was 1.9. Digoxin was decreased to 0.125 mg daily. Psychiatric consultation was obtained. Patient is agitated and confused. He was diagnosed to lack the capacity to make medical decisions. Abilify was discontinued. He was started on Seroquel. Patient was unable to give consent. He continued to have leukocytosis however was not febrile. Chest x-ray done on 05/12/2018 showed an ill-defined confluent groundglass opacity on the left mid/ inferior lung of uncertain etiology. Repeat chest x-ray 1126 showed a right midlung nodule. On 05/16/2018, patient again had rapid A. fib at a rate of 140s despite being on digoxin 0.125 mg and metoprolol 50 mg twice daily. He was transferred to ICU. He was started on Cardizem drip and was given amiodarone. He was eventually taken off Cardizem drip the following day. CT scan of the chest, abdomen and pelvis showed a 10 mm opacity on the peripheral anterolateral right upper lobe with small central cavitation. Suspect inflammatory/infectious lesion, but neoplastic etiology possible. There was presence of large left and moderate right pleural effusions. P.o. Flagyl was added for anaerobic coverage. Is on airborne isolation. TB done. Family agreed for bilateral BKA. Bioethics was also consulted and that it is appropriate to proceed with bilateral BKA, as without surgery, he would likely succumb to sepsis. On 05/23/2018, he underwent bilateral [id number]-bch-[id number] amputation. He tolerated procedure well. Surgery was uneventful. He was continued with wound care. He underwent thoracentesis. TB spot was negative. Sputum culture showed usual respiratory noah. AFB sputum culture and smear was negative. Legionella and cryptococcus negative. Blasto and histo plasma antibody negative. Per Department of Health patient to be continued on empiric TB regimen with DONN (started 05/26/2018)-Levaquin instead of rifampin or rifabutin given multiple drug interactions with rifampin as patient is with amiodarone, quetiapine and metoprolol. He was given Levaquin and Flagyl for cavitary/aspiration pneumonia. He had an episode of drop in hemoglobin and required 1 unit packed RBC blood transfusion. He was cleared by Department of Health for discharge. They will be following him over at SNF for TB treatment management. PICC line was removed prior to discharge. 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 DISCHARGE MEDICATIONS: Refer to Discharge Medication List. I have been assigned to dictate discharge summary on this account, and I was not involved in the patient's management. Miranda Monaco NP Jun 16, 2018 14:22
== END 2018-06-15 19:00 | DRG 853 ==
LOC: MERGE 13:32 → 2E 13:32 → ICU 05-16 15:25 → 2W 05-18 05:02 → ICU 05-23 17:28 → 2E 05-24 16:52 → 4E 05-26 15:38
PROC: 0Y6D0Z3 Detachment at Left Upper Leg, Low, Open Approach (ICD-10-PCS; principal; 2018-05-23 14:00)
PROC: 0W9B3ZZ Drainage of Left Pleural Cavity, Percutaneous Approach (ICD-10-PCS; principal; 2018-05-23 14:00)
PROC: 0Y6C0Z3 Detachment at Right Upper Leg, Low, Open Approach (ICD-10-PCS; principal; 2018-05-23 14:00)
DX: A41.89 Other specified sepsis (principal); L89.523 Pressure ulcer of left ankle, stage 3; L89.513 Pressure ulcer of right ankle, stage 3; G92 Toxic encephalopathy; J69.0 Pneumonitis due to inhalation of food and vomit; I96 Gangrene, not elsewhere classified; J90 Pleural effusion, not elsewhere classified; I48.92 Unspecified atrial flutter; I70.268 Atherosclerosis of native arteries of extremities with gangrene, other extremity; G93.40 Encephalopathy, unspecified; I82.411 Acute embolism and thrombosis of right femoral vein; E46 Unspecified protein-calorie malnutrition; R71.0 Precipitous drop in hematocrit; I48.0 Paroxysmal atrial fibrillation; Z79.01 Long term (current) use of anticoagulants; I10 Essential (primary) hypertension; F31.9 Bipolar disorder, unspecified; I25.10 Atherosclerotic heart disease of native coronary artery without angina pectoris; Z86.73 Personal history of transient ischemic attack (TIA), and cerebral infarction without residual deficits; L89.150 Pressure ulcer of sacral region, unstageable; L89.309 Pressure ulcer of unspecified buttock, unspecified stage; B18.2 Chronic viral hepatitis C; Z68.20 Body mass index [BMI] 20.0-20.9, adult; F41.9 Anxiety disorder, unspecified
CPT/HCPCS: 36415; 36569; 70470; 71045; 71250; 71260; 74177; 76937; 76942; 80048; 80053; 80061; 80162; 80202; 81003; 82164; 83735; 83880; 84100; 84443; 84484; 85007; 85025; 85610; 85651; 85730; 86140; 86171; 86580; 86612; 86635; 86703; 86704; 86705; 86708; 86709; 86803; 86850; 86900; 86901; 86920; 87040; 87070; 87081; 87086; 87116; 87205; 87340; 87449; 87517; 87522; 87556; 88104; 93005; 93306; 93925; 93970; 93971; 94003; 94150; 94640; 94664; 94760; C9399; J2250; J2370; J2405; J7620

== ENCOUNTER 2018-08-14 00:45 | Inpatient (IN) | payer MEDICARE, MEDICAID ==
[2018-08-14] VITALS (7 sets, daily range): BP systolic 94–138; BP diastolic 56–89
[~2018-08-14] VITALS: Ht 183.9 cm; Wt 76.2 kg
[~2018-08-14 00:45] MED LIST changes: +INH300 MG ORAL; +LEVAQUIN500 MG ORAL; +MYAMBUTOL400 MG ORAL; +PACERONE200 MG ORAL; +PYRIDOXINE HCL50 MG ORAL; +PZA500 M1 ORAL; +SENNA-GEN8.6 M1 ORAL
--- NOTE | 2018-08-14 00:54 | Emergency Room Report ---
History of Present Illness General Chief Complaint: Abnormal Labs Source: Patient Present Illness HPI This is a 68-year-old male with history diabetes, high blood pressure and other medical problems. He presents with chief complaint of abnormal lab. He had blood work done initial white count of 18,000. No reported fever chills. No cough or congestion. Patient has no complaint. Allergies: Coded Allergies: MILK (Verified Allergy, Unknown, 02/02/18) Patient History Past Medical History: see triage record, old chart reviewed, DM, HTN Past Surgical History: other - Bilateral BKA Pertinent Family History: none Social History: Denies: smoking Immunizations: other Reviewed Nursing Documentation: PMH: Agreed; PSxH: Agreed Nursing Documentation-PMH Hx Cardiac Problems: Yes - NSTEM, Atheroclerotic Heart Dis, Angina Pectoris Hx Hypertension: Yes - Hyperlipidemia Hx Cancer: No Hx Gastrointestinal Problems: No Hx Cerebrovascular Accident: Yes Hx Transient Ischemic Attacks: Yes Hx Speech Problem: Yes Review of Systems All Other Systems: limited - Secondary to patient condition Physical Exam Vital Signs Date Time Temp Pulse Resp B/P (MAP) Pulse Ox O2 Delivery O2 Flow Rate FiO2 08/14/18 00:40 101.3 105 18 109/71 96 Room Air vitals with fever Sp02 EP Interpretation: reviewed, normal General Appearance: alert, Chronically Ill Head: normocephalic, atraumatic Eyes: bilateral eye EOMI, bilateral eye other - patient is blind ENT: hearing grossly normal, dry mucus membranes Neck: no meningismus, other - Neck is stiff secondary to degenerative changes Respiratory: chest non-tender, lungs clear, normal breath sounds Cardiovascular #1: regular rate, rhythm, no murmur Gastrointestinal: normal bowel sounds, non tender, no mass, no organomegaly, no bruit, non-distended Musculoskeletal: back normal, other - Bilateral BKA. Left elbow with stage III pressure ulcer over the olecranon. No drainage Psychiatric: mood/affect normal Skin: warm/dry Procedures Critical Care Time Critical Care Time Critical care is mandated in this patient who presented with sepsis from pneumonia and rapid A. fib. Patient require my urgent intervention to attenuate the risks of metabolic collapse which may lead to cardiovascular collapse and . Critical care time is 35 minutes excluding any reportable procedure. Critical care time included evaluation, multiple reevaluation, looking at old charts, interpreting laboratory and diagnostic data, discussing case with patient and family and consultants, and charting. Medical Decision Making Diagnostic Impression: Primary Impression: Sepsis Qualified Codes: A41.9 - Sepsis, unspecified organism Additional Impressions: HCAP (healthcare-associated pneumonia) Atrial fibrillation with rapid ventricular response Anemia Qualified Codes: D64.9 - Anemia, unspecified Acute metabolic encephalopathy ER Course Patient present with sepsis secondary to pneumonia. Antibiotic started. IV fluids given. Patient felt better. He also has rapid A. fib I'll be secondary to his infectious state. Rate control with Cardizem. Blood pressure stable. Patient will be admitted to the hospital for IV antibiotics and further monitoring. First set of troponin negative. No evidence of CHF. Discussed the case with Dr. Caban who will admit. Lab Results Impression labs with leukocytosis and anemia EKG Diagnostic Results Rate: tachycardiac Rhythm: other - A. fib ST Segments: other - Nonspecific ST changes Chest X-Ray Diagnostic Results Chest X-Ray Diagnostic Results : Chest X-Ray Ordered: Yes # of Views/Limited/Complete: 1 View Indication: Shortness of Breath EP Interpretation: Yes Interpretation: no effusion, no pneumothorax, other - Right middle lobe infiltrate Impression: Other - Right lung infiltrate Electronically Signed by: Jimmy Alcala MD Last Vital Signs Date Time Temp Pulse Resp B/P (MAP) Pulse Ox O2 Delivery O2 Flow Rate FiO2 08/14/18 00:40 101.3 105 18 109/71 96 Room Air Status: improved Disposition: ADMITTED INPATIENT Condition: Serious Jimmy Alcala MD Aug 14, 2018 00:53
[2018-08-14] MEDS ORDERED: PROTONIX40 MG ORAL (00:56)
[2018-08-14] MEDS ORDERED: Sodium Chloride 2,200 ML IVLG ONE (01:00)
[2018-08-14] MEDS ORDERED: Acetaminophen 500mg (ES) tab ORAL ONE (01:00)
[2018-08-14 01:15] LABS: BASOPHILS % (AUTO) 0.9 % (0.0-2.0); EOSINOPHILS % (AUTO) 0.1 % (0.0-3.0); HEMATOCRIT 27.6 % (42.0-52.0); HEMOGLOBIN 8.9 G/DL (14.2-18.0); LYMPHOCYTES % (AUTO) 9.9 % (20.0-45.0); MEAN CORPUSCULAR VOLUME 98 FL (80-99); MONOCYTES % (AUTO) 7.9 % (1.0-10.0); NEUTROPHILS % (AUTO) 81.1 % (45.0-75.0); PLATELET COUNT 295 K/UL (150-450); RED BLOOD COUNT 2.81 M/UL (4.70-6.10); RED CELL DISTRIBUTION WIDTH 15.6 % (11.6-14.8); WHITE BLOOD COUNT 17.3 K/UL (4.8-10.8)
[2018-08-14 01:18] LABS: APPEARANCE,URINE CLEAR; BILIRUBIN, URINE 1+ (NEGATIVE); GLUCOSE, URINE (UA) NEGATIVE (NEGATIVE); KETONES,URINE 1+ (NEGATIVE); LEUKOCYTE ESTERASE ,URINE 1+ (NEGATIVE); NITRITE,URINE NEGATIVE (NEGATIVE); PH,URINE 5 (4.5-8.0); PROTEIN,URINE 2+ (NEGATIVE); UROBILINOGEN,URINE 1 MG/DL (0.0-1.0)
[2018-08-14 01:30] LABS: ANION GAP 11 mmol/L (5-15); BLOOD UREA NITROGEN 24 mg/dL (7-18); CALCIUM 7.4 MG/DL (8.5-10.1); CARBON DIOXIDE 24 MMOL/L (21-32); CHLORIDE 112 MMOL/L (98-107); CREATININE 0.7 MG/DL (0.55-1.30); POTASSIUM 3.4 MMOL/L (3.5-5.1); SODIUM 147 MMOL/L (136-145)
[2018-08-14 01:37] LABS: COLOR,URINE YELLOW
[2018-08-14 01:39] LABS: INR 1.6 (0.9-1.1)
[2018-08-14 01:43] LABS: ALANINE AMINOTRANSFERASE 7 U/L (12-78); ALBUMIN 1.1 G/DL (3.4-5.0); ALBUMIN/GLOBULIN RATIO 0.3 (1.0-2.7); ALKALINE PHOSPHATASE 94 U/L (46-116); ASPARTATE AMINO TRANSFERASE 20 U/L (15-37); BILIRUBIN,TOTAL 0.6 MG/DL (0.2-1.0); CKMB 0.7 NG/ML (0.0-3.6); CREATINE KINASE 78 U/L (26-308)
[2018-08-14] MEDS ORDERED: dilTIAZem HCl 25mg/5ml Inj IVP ONE ×2 (02:15→03:30)
[2018-08-14] MEDS ORDERED: Cefepime HCl 1 GM in D5W 55 ML IVPB ONE (02:15)
[2018-08-14] MEDS ORDERED: dilTIAZem HCl 50mg/10ml Inj IVP ONE (03:30)
[2018-08-14] MEDS ORDERED: Docusate 100mg cap ORAL PRN (06:45)
[2018-08-14] MEDS ORDERED: HYDROcodone/Acetamin 5/325 tab ORAL PRN (06:45)
[2018-08-14] MEDS: Pyridoxine 50mg tab ORAL SCH (08:47)
[2018-08-14] MEDS: Zinc Sulfate 220mg cap ORAL SCH (08:48)
[2018-08-14] MEDS: Metoprolol Tartrate 50mg tab ORAL SCH ×2 (08:50→21:00)
[2018-08-14] MEDS: Nephrovite tab (Rena-Vite) ORAL SCH (08:52)
[2018-08-14] MEDS: cefTRIAXone 1 GM in D5W 55 ML IVPB SCH (08:53)
[2018-08-14] MEDS: Isoniazid 300mg tab ORAL SCH (08:54)
[2018-08-14] MEDS: Eliquis 2.5mg tablet ORAL SCH ×2 (08:55→21:10)
[2018-08-14] MEDS ORDERED: Aspirin Baby 81mg ORAL SCH (09:00)
--- NOTE | 2018-08-14 11:59 | Diagnostic Imaging Report ---
Indication: Dyspnea Comparison: 06/06/2018 A single view chest radiograph was obtained. Findings: There is blunting of the left costophrenic angle. Borderline cardiomegaly demonstrated. Mild basal atelectasis noted. IMPRESSION: Suspect a small left pleural effusion. Mild basal atelectasis
--- NOTE | 2018-08-14 13:15 | Consultation ---
History of Present Illness General Date patient seen: Aug 14, 2018 Chief Complaint: Abnormal Labs Present Illness HPI 68-year-old male with PMHx of diabetes, high blood pressure, amputation of legs , decubiti ulcers, CAD, htn, presented from senior living with chief complaint of fever and leukocytosis. Pt was found to be septic and admitted to telemetry for further evaluation. Allergies: Coded Allergies: MILK (Verified Allergy, Unknown, 02/02/18) Medication History Scheduled Apixaban (Eliquis), 2.5 MG ORAL Q12HR Aripiprazole* (Abilify*), 5 MG ORAL BID, (Reported) Fluticasone/Salmeterol (Advair Hfa 115-21 Mcg Inhaler), 2 PUFFS INH EVERY 12 HOURS, (Reported) Gabapentin* (Gabapentin*), 100 MG ORAL THREE TIMES A DAY Isoniazid (Isoniazid), 300 MG ORAL DAILY Magnesium Hydroxide* (Milk Of Magnesia*), 30 ML ORAL BEDTIME, (Reported) Midodrine* (Proamatine*), 5 MG ORAL THREE TIMES A DAY, (Reported) Pantoprazole* (Protonix*), 40 MG ORAL DAILY, (Reported) Pyridoxine Hcl* (Vitamin B-6*), 50 MG ORAL DAILY Quetiapine Fumarate* (Seroquel*), 100 MG ORAL BEDTIME, (Reported) Vitamin B Cmplx/Vit C/Folic AC (Nephro-Mykel Tablet), 1 TAB ORAL DAILY, (Reported ) Zinc Sulfate (Zinc Sulfate*), 220 MG ORAL DAILY, (Reported) Scheduled PRN Acetaminophen* (Acetaminophen 325MG Tablet*), 650 MG ORAL Q4H PRN for Mild Pain (Pain Scale 1-3), (Reported) Docusate Sodium* (Docusate Sodium*), 100 MG ORAL for Constipation, (Reported) Hydrocodone Bit/Acetaminophen 5-325* ([place] 5-325*), 1 TAB ORAL Q4H PRN for For Pain, (Reported) Discontinued Medications Acetaminophen* (Tylenol Extra Strength*), 1,000 MG ORAL Q4HR PRN for Mild Pain/ Temp > 100.5, (Reported) Discontinued Reason: Therapy completed Amiodarone Hcl* (Pacerone*), 200 MG ORAL DAILY Discontinued Reason: Therapy completed Ascorbic Acid* (Vitamin C*), 500 MG ORAL DAILY, (Reported) Discontinued Reason: Therapy completed Bisacodyl (Bisacodyl), 10 MG RC for Constipation, (Reported) Discontinued Reason: Therapy completed Digoxin* (Lanoxin*), 0.125 MG ORAL DAILY Discontinued Reason: Therapy completed Ethambutol Hcl* (Myambutol*), 1,200 MG ORAL DAILY Discontinued Reason: Therapy completed Levofloxacin* (Levaquin*), 500 MG ORAL DAILY Discontinued Reason: Therapy completed Metronidazole* (Flagyl*), 500 MG ORAL Q8H Discontinued Reason: Therapy completed Pyrazinamide (Pyrazinamide), 1,500 MG ORAL DAILY Discontinued Reason: Therapy completed Sennosides (Senna-Gen), 8.6 MG ORAL BIDPRN PRN Discontinued Reason: Therapy completed Zolpidem Tartrate* (Ambien*), 5 MG ORAL BEDTIME PRN for Insomnia, (Reported) Discontinued Reason: Therapy completed Patient History Healthcare decision maker none Resuscitation status Advanced Directive on File Past Medical/Surgical History Past Medical/Surgical History: (1) Atrial fibrillation with rapid ventricular response (2) Decubitus skin ulcer (3) Atrial fibrillation (4) Bipolar 1 disorder (5) CVA (cerebral vascular accident) (6) HTN (hypertension) (7) CAD (coronary artery disease) Review of Systems All Other Systems: negative except mentioned in HPI Physical Exam General Appearance: WD/WN Lines, tubes and drains: peripheral HEENT: normocephalic Neck: non-tender, normal alignment Respiratory/Chest: chest wall non-tender, normal breath sounds Cardiovascular/Chest: normal peripheral pulses, normal rate Abdomen: normal bowel sounds Genitourinary/Rectal: normal genital exam Physical Exam Narrative extensive, deep decubiti ulcers. Last 24 Hour Vital Signs Date Time Temp Pulse Resp B/P (MAP) Pulse Ox O2 Delivery O2 Flow Rate FiO2 08/14/18 12:00 97.0 92 24 136/56 (82) 96 08/14/18 09:00 Nasal Cannula 2.0 08/14/18 08:50 130 128/81 08/14/18 08:00 97.7 131 24 128/89 (102) 97 08/14/18 04:00 109 08/14/18 04:00 97.3 48 19 94/56 (69) 93 08/14/18 03:48 99.2 110 18 110/61 98 Room Air 08/14/18 03:40 126 109/60 08/14/18 03:36 Room Air 08/14/18 03:22 99.2 105 18 105/65 98 Room Air 08/14/18 03:21 130 109/61 08/14/18 02:12 129 128/68 08/14/18 01:14 99.1 08/14/18 01:10 101.3 100 18 109/71 96 Room Air 08/14/18 00:40 101.3 105 18 109/71 96 Room Air Laboratory Tests Test 08/14/18 00:45 08/14/18 07:55 White Blood Count 17.3 K/UL (4.8-10.8) H Red Blood Count 2.81 M/UL (4.70-6.10) L Hemoglobin 8.9 G/DL (14.2-18.0) L Hematocrit 27.6 % (42.0-52.0) L Mean Corpuscular Volume 98 FL (80-99) Mean Corpuscular Hemoglobin 31.6 PG (27.0-31.0) H Mean Corpuscular Hemoglobin Concent 32.2 G/DL (32.0-36.0) Red Cell Distribution Width 15.6 % (11.6-14.8) H Platelet Count 295 K/UL (150-450) Mean Platelet Volume 4.6 FL (6.5-10.1) L Neutrophils (%) (Auto) 81.1 % (45.0-75.0) H Lymphocytes (%) (Auto) 9.9 % (20.0-45.0) L Monocytes (%) (Auto) 7.9 % (1.0-10.0) Eosinophils (%) (Auto) 0.1 % (0.0-3.0) Basophils (%) (Auto) 0.9 % (0.0-2.0) Prothrombin Time 16.7 SEC (9.30-11.50) H Prothromb Time International Ratio 1.6 (0.9-1.1) H Activated Partial Thromboplast Time 38 SEC (23-33) H Urine Color Yellow Urine Appearance Clear Urine pH 5 (4.5-8.0) Urine Specific [place] 1.015 (1.005-1.035) Urine Protein 2+ (NEGATIVE) H Urine Glucose (UA) Negative (NEGATIVE) Urine Ketones 1+ (NEGATIVE) H Urine Blood 5+ (NEGATIVE) H Urine Nitrite Negative (NEGATIVE) Urine Bilirubin 1+ (NEGATIVE) H Urine Ictotest Positive (NEGATIVE) Urine Urobilinogen 1 MG/DL (0.0-1.0) H Urine Leukocyte Esterase 1+ (NEGATIVE) H Urine RBC Tntc /HPF (0 - 0) H Urine WBC 2-4 /HPF (0 - 0) Urine Squamous Epithelial Cells None /LPF (NONE/OCC) Urine Bacteria Few /HPF (NONE) Sodium Level 147 MMOL/L (136-145) H Potassium Level 3.4 MMOL/L (3.5-5.1) L Chloride Level 112 MMOL/L (98-107) H Carbon Dioxide Level 24 MMOL/L (21-32) Anion Gap 11 mmol/L (5-15) Blood Urea Nitrogen 24 mg/dL (7-18) H Creatinine 0.7 MG/DL (0.55-1.30) Estimat Glomerular Filtration Rate > 60 mL/min (>60) Glucose Level 88 MG/DL (74-106) Lactic Acid Level 1.60 mmol/L (0.4-2.0) Calcium Level 7.4 MG/DL (8.5-10.1) L Total Bilirubin 0.6 MG/DL (0.2-1.0) Aspartate Amino Transf (AST/SGOT) 20 U/L (15-37) Alanine Aminotransferase (ALT/SGPT) 7 U/L (12-78) L Alkaline Phosphatase 94 U/L (46-116) Total Creatine Kinase 78 U/L (26-308) Creatine Kinase MB 0.7 NG/ML (0.0-3.6) Creatine Kinase MB Relative Index 0.8 Troponin I 0.047 ng/mL (0.000-0.056) 0.039 ng/mL (0.000-0.056) Total Protein 5.1 G/DL (6.4-8.2) L Albumin 1.1 G/DL (3.4-5.0) L Globulin 4.0 g/dL Albumin/Globulin Ratio 0.3 (1.0-2.7) L Microbiology Date/Time Source Procedure Growth Status 08/14/18 02:30 Rectum Received Height (Feet): 6 Height (Inches): 0.40 Weight (Pounds): 148 Medications Current Medications Medications (Trade) Dose Ordered Sig/Erlin Route PRN Reason Start Time Stop Time Status Last Admin Dose Admin Acetaminophen (Tylenol) 650 mg Q4H PRN ORAL Mild Pain (Pain Scale 1-3) 08/14/18 06:45 09/13/18 06:44 Acetaminophen (Tylenol) 650 mg Q6H PRN ORAL Mild Pain/Temp > 100.5 08/14/18 09:00 09/13/18 08:59 Acetaminophen/ Hydrocodone Bitart ([place] 5/325) 1 tab Q4H PRN ORAL For Pain 08/14/18 06:45 08/21/18 06:44 Apixaban (Eliquis) 2.5 mg Q12HR ORAL 08/14/18 09:00 09/13/18 08:59 08/14/18 08:55 Aripiprazole (Abilify) 5 mg BID ORAL 08/14/18 09:00 09/13/18 08:59 08/14/18 08:49 Aspirin (ASA) 81 mg DAILY ORAL 08/14/18 09:00 09/13/18 08:59 08/14/18 08:55 Ceftriaxone Sodium 1 gm/ Dextrose 55 ml @ 110 mls/hr Q24H IVPB 08/14/18 09:00 08/21/18 08:59 08/14/18 08:53 Docusate Sodium (Colace) 100 mg DAILYPRN PRN ORAL Constipation 08/14/18 06:45 09/13/18 06:44 Gabapentin (Neurontin) 100 mg THREE TIMES A DAY ORAL 08/14/18 13:00 09/13/18 12:59 08/14/18 13:00 Isoniazid (Inh) 300 mg DAILY ORAL 08/14/18 09:00 09/13/18 08:59 08/14/18 08:54 Magnesium Hydroxide (Mom) 30 ml BEDTIME ORAL 08/14/18 21:00 09/13/18 20:59 Metoprolol Tartrate (Lopressor) 50 mg Q12HR ORAL 08/14/18 09:00 09/13/18 08:59 08/14/18 08:50 Midodrine (Pro-Amatine) 5 mg THREE TIMES A DAY ORAL 08/14/18 09:00 09/13/18 08:59 08/14/18 13:00 Pantoprazole (Protonix) 40 mg DAILY ORAL 08/14/18 09:00 09/13/18 08:59 08/14/18 08:52 Pyridoxine HCl (Vitamin B6) 50 mg DAILY ORAL 08/14/18 09:00 09/13/18 08:59 08/14/18 08:47 Vitamin B Complex/ Vit C/Folic Acid (Nephrovite) 1 tab DAILY ORAL 08/14/18 09:00 09/13/18 08:59 08/14/18 08:52 Zinc Sulfate (Zinc Sulfate) 220 mg DAILY ORAL 08/14/18 09:00 09/13/18 08:59 08/14/18 08:48 Assessment/Plan Problem List: (1) Acute metabolic encephalopathy ICD Codes: G93.41 - Metabolic encephalopathy SNOMED: 65518984, 047836801 (2) Sepsis ICD Codes: A41.9 - Sepsis, unspecified organism SNOMED: 61768725 (3) Decubitus skin ulcer ICD Codes: L89.90 - Pressure ulcer of unspecified site, unspecified stage SNOMED: 742885821 (4) UTI (urinary tract infection) ICD Codes: N39.0 - Urinary tract infection, site not specified SNOMED: 92417218 (5) Anemia ICD Codes: D64.9 - Anemia, unspecified SNOMED: 493297304 Qualifiers: Qualified Codes: D64.9 - Anemia, unspecified (6) CVA (cerebral vascular accident) ICD Codes: I63.9 - Cerebral infarction, unspecified SNOMED: 676374838 Assessment/Plan mcmillan cultures iv abx wound care surgical evaluation check electrolytes ID evaluation. Minerva Montesinos MD Aug 14, 2018 13:15
--- NOTE | 2018-08-14 14:43 | Consultation ---
History of Present Illness General Date patient seen: Aug 14, 2018 Reason for Hospitalization: Abnormal Labs Present Illness HPI 68 year old male well known to me from prior admissions. Had history of poor vasculopathy and prior required bilateral AKA. Since has been in rehab but noted to have abnormal labs and to be septic. Admitted for care and management. on admission known prior wounds have deteriorated and surgery called to evaluate and assist with care/management. Allergies: Coded Allergies: MILK (Verified Allergy, Unknown, 02/02/18) Medication History Scheduled Apixaban (Eliquis), 2.5 MG ORAL Q12HR Aripiprazole* (Abilify*), 5 MG ORAL BID, (Reported) Fluticasone/Salmeterol (Advair Hfa 115-21 Mcg Inhaler), 2 PUFFS INH EVERY 12 HOURS, (Reported) Gabapentin* (Gabapentin*), 100 MG ORAL THREE TIMES A DAY Isoniazid (Isoniazid), 300 MG ORAL DAILY Magnesium Hydroxide* (Milk Of Magnesia*), 30 ML ORAL BEDTIME, (Reported) Midodrine* (Proamatine*), 5 MG ORAL THREE TIMES A DAY, (Reported) Pantoprazole* (Protonix*), 40 MG ORAL DAILY, (Reported) Pyridoxine Hcl* (Vitamin B-6*), 50 MG ORAL DAILY Quetiapine Fumarate* (Seroquel*), 100 MG ORAL BEDTIME, (Reported) Vitamin B Cmplx/Vit C/Folic AC (Nephro-Mykel Tablet), 1 TAB ORAL DAILY, (Reported ) Zinc Sulfate (Zinc Sulfate*), 220 MG ORAL DAILY, (Reported) Scheduled PRN Acetaminophen* (Acetaminophen 325MG Tablet*), 650 MG ORAL Q4H PRN for Mild Pain (Pain Scale 1-3), (Reported) Docusate Sodium* (Docusate Sodium*), 100 MG ORAL for Constipation, (Reported) Hydrocodone Bit/Acetaminophen 5-325* ([place] 5-325*), 1 TAB ORAL Q4H PRN for For Pain, (Reported) Discontinued Medications Acetaminophen* (Tylenol Extra Strength*), 1,000 MG ORAL Q4HR PRN for Mild Pain/ Temp > 100.5, (Reported) Discontinued Reason: Therapy completed Amiodarone Hcl* (Pacerone*), 200 MG ORAL DAILY Discontinued Reason: Therapy completed Ascorbic Acid* (Vitamin C*), 500 MG ORAL DAILY, (Reported) Discontinued Reason: Therapy completed Bisacodyl (Bisacodyl), 10 MG RC for Constipation, (Reported) Discontinued Reason: Therapy completed Digoxin* (Lanoxin*), 0.125 MG ORAL DAILY Discontinued Reason: Therapy completed Ethambutol Hcl* (Myambutol*), 1,200 MG ORAL DAILY Discontinued Reason: Therapy completed Levofloxacin* (Levaquin*), 500 MG ORAL DAILY Discontinued Reason: Therapy completed Metronidazole* (Flagyl*), 500 MG ORAL Q8H Discontinued Reason: Therapy completed Pyrazinamide (Pyrazinamide), 1,500 MG ORAL DAILY Discontinued Reason: Therapy completed Sennosides (Senna-Gen), 8.6 MG ORAL BIDPRN PRN Discontinued Reason: Therapy completed Zolpidem Tartrate* (Ambien*), 5 MG ORAL BEDTIME PRN for Insomnia, (Reported) Discontinued Reason: Therapy completed Patient History Limited by: medical condition History Provided By: Medical Record, PMD Healthcare decision maker none Resuscitation status Advanced Directive on File Past Medical/Surgical History Past Medical/Surgical History: (1) CAD (coronary artery disease) (2) Sepsis (3) HTN (hypertension) (4) CVA (cerebral vascular accident) (5) Bipolar 1 disorder (6) Atrial fibrillation (7) Decubitus skin ulcer (8) CHF (congestive heart failure) (9) UTI (urinary tract infection) (10) Pneumonia (11) Sepsis (12) Atrial fibrillation with rapid ventricular response (13) Anemia (14) Acute metabolic encephalopathy (15) HCAP (healthcare-associated pneumonia) Review of Systems Review of Symptoms General ROS: no weight loss or fever Psychological ROS: no depression or mood changes, no memory loss Ophthalmic ROS: no visual changes or eye irritation ENT ROS: no nasal congestion, hearing loss, dizziness Allergy and Immunology ROS: no allergic symptoms or urticaria Hematological and Lymphatic ROS: no swollen glands, unusual bleeding or bruising Endocrine ROS: no polyuria, polydipsia, weight changes, temperature intolerance Respiratory ROS: no cough, shortness of breath, or wheezing Cardiovascular ROS: no chest pain or dyspnea on exertion Gastrointestinal ROS: denies abdominal pain, bright red blood in stool. Musculoskeletal ROS: no myalgias or arthralgias Neurological ROS: no TIA or stroke symptoms Dermatological ROS: no new or changing skin lesions, rashes or pruritis Physical Exam Physical Exam General appearance: alert, cooperative, no distress, appears stated age Head: Normocephalic, without obvious abnormality, atraumatic Eyes: conjunctivae/corneas clear. PERRL, EOM's intact. Fundi benign Throat: Lips, mucosa, and tongue normal. Teeth and gums normal Neck: supple, symmetrical, trachea midline, no adenopathy, thyroid: not enlarged, symmetric, no tenderness/mass/nodules, no carotid bruit and no JVD Lungs: clear to auscultation bilaterally Heart: regular rate and rhythm, S1, S2 normal, no murmur, click, rub or gallop Abdomen: soft, non-tender. Bowel sounds normal. No masses, no organomegaly Extremities: extremities normal, atraumatic, no cyanosis or edema/ s/p bilateral aka Pulses: 2+ and symmetric Skin: Skin color, texture, turgor normal. No rashes or lesions. multiple large decubitus ulcers. Neurologic: Grossly normal Last 24 Hour Vital Signs Date Time Temp Pulse Resp B/P (MAP) Pulse Ox O2 Delivery O2 Flow Rate FiO2 08/14/18 12:00 97.0 92 24 136/56 (82) 96 08/14/18 12:00 92 08/14/18 09:00 Nasal Cannula 2.0 08/14/18 08:50 130 128/81 08/14/18 08:00 161 08/14/18 08:00 97.7 131 24 128/89 (102) 97 08/14/18 04:00 109 08/14/18 04:00 97.3 48 19 94/56 (69) 93 08/14/18 03:48 99.2 110 18 110/61 98 Room Air 08/14/18 03:40 126 109/60 08/14/18 03:36 Room Air 08/14/18 03:22 99.2 105 18 105/65 98 Room Air 08/14/18 03:21 130 109/61 08/14/18 02:12 129 128/68 08/14/18 01:14 99.1 08/14/18 01:10 101.3 100 18 109/71 96 Room Air 08/14/18 00:40 101.3 105 18 109/71 96 Room Air Laboratory Tests Test 08/14/18 00:45 08/14/18 07:55 White Blood Count 17.3 K/UL (4.8-10.8) H Red Blood Count 2.81 M/UL (4.70-6.10) L Hemoglobin 8.9 G/DL (14.2-18.0) L Hematocrit 27.6 % (42.0-52.0) L Mean Corpuscular Volume 98 FL (80-99) Mean Corpuscular Hemoglobin 31.6 PG (27.0-31.0) H Mean Corpuscular Hemoglobin Concent 32.2 G/DL (32.0-36.0) Red Cell Distribution Width 15.6 % (11.6-14.8) H Platelet Count 295 K/UL (150-450) Mean Platelet Volume 4.6 FL (6.5-10.1) L Neutrophils (%) (Auto) 81.1 % (45.0-75.0) H Lymphocytes (%) (Auto) 9.9 % (20.0-45.0) L Monocytes (%) (Auto) 7.9 % (1.0-10.0) Eosinophils (%) (Auto) 0.1 % (0.0-3.0) Basophils (%) (Auto) 0.9 % (0.0-2.0) Prothrombin Time 16.7 SEC (9.30-11.50) H Prothromb Time International Ratio 1.6 (0.9-1.1) H Activated Partial Thromboplast Time 38 SEC (23-33) H Urine Color Yellow Urine Appearance Clear Urine pH 5 (4.5-8.0) Urine Specific [place] 1.015 (1.005-1.035) Urine Protein 2+ (NEGATIVE) H Urine Glucose (UA) Negative (NEGATIVE) Urine Ketones 1+ (NEGATIVE) H Urine Blood 5+ (NEGATIVE) H Urine Nitrite Negative (NEGATIVE) Urine Bilirubin 1+ (NEGATIVE) H Urine Ictotest Positive (NEGATIVE) Urine Urobilinogen 1 MG/DL (0.0-1.0) H Urine Leukocyte Esterase 1+ (NEGATIVE) H Urine RBC Tntc /HPF (0 - 0) H Urine WBC 2-4 /HPF (0 - 0) Urine Squamous Epithelial Cells None /LPF (NONE/OCC) Urine Bacteria Few /HPF (NONE) Sodium Level 147 MMOL/L (136-145) H Potassium Level 3.4 MMOL/L (3.5-5.1) L Chloride Level 112 MMOL/L (98-107) H Carbon Dioxide Level 24 MMOL/L (21-32) Anion Gap 11 mmol/L (5-15) Blood Urea Nitrogen 24 mg/dL (7-18) H Creatinine 0.7 MG/DL (0.55-1.30) Estimat Glomerular Filtration Rate > 60 mL/min (>60) Glucose Level 88 MG/DL (74-106) Lactic Acid Level 1.60 mmol/L (0.4-2.0) Calcium Level 7.4 MG/DL (8.5-10.1) L Total Bilirubin 0.6 MG/DL (0.2-1.0) Aspartate Amino Transf (AST/SGOT) 20 U/L (15-37) Alanine Aminotransferase (ALT/SGPT) 7 U/L (12-78) L Alkaline Phosphatase 94 U/L (46-116) Total Creatine Kinase 78 U/L (26-308) Creatine Kinase MB 0.7 NG/ML (0.0-3.6) Creatine Kinase MB Relative Index 0.8 Troponin I 0.047 ng/mL (0.000-0.056) 0.039 ng/mL (0.000-0.056) Total Protein 5.1 G/DL (6.4-8.2) L Albumin 1.1 G/DL (3.4-5.0) L Globulin 4.0 g/dL Albumin/Globulin Ratio 0.3 (1.0-2.7) L Microbiology Date/Time Source Procedure Growth Status 08/14/18 02:30 Rectum Received Height (Feet): 6 Height (Inches): 0.40 Weight (Pounds): 148 Medications Current Medications Medications (Trade) Dose Ordered Sig/Erlin Route PRN Reason Start Time Stop Time Status Last Admin Dose Admin Acetaminophen (Tylenol) 650 mg Q4H PRN ORAL Mild Pain (Pain Scale 1-3) 08/14/18 06:45 09/13/18 06:44 Acetaminophen (Tylenol) 650 mg Q6H PRN ORAL Mild Pain/Temp > 100.5 08/14/18 09:00 09/13/18 08:59 Acetaminophen/ Hydrocodone Bitart ([place] 5/325) 1 tab Q4H PRN ORAL For Pain 08/14/18 06:45 08/21/18 06:44 Apixaban (Eliquis) 2.5 mg Q12HR ORAL 08/14/18 09:00 09/13/18 08:59 08/14/18 08:55 Aripiprazole (Abilify) 5 mg BID ORAL 08/14/18 09:00 09/13/18 08:59 08/14/18 08:49 Ceftriaxone Sodium 1 gm/ Dextrose 55 ml @ 110 mls/hr Q24H IVPB 08/14/18 09:00 08/21/18 08:59 08/14/18 08:53 Docusate Sodium (Colace) 100 mg DAILYPRN PRN ORAL Constipation 08/14/18 06:45 09/13/18 06:44 Gabapentin (Neurontin) 100 mg THREE TIMES A DAY ORAL 08/14/18 13:00 09/13/18 12:59 08/14/18 13:00 Isoniazid (Inh) 300 mg DAILY ORAL 08/14/18 09:00 09/13/18 08:59 08/14/18 08:54 Magnesium Hydroxide (Mom) 30 ml BEDTIME ORAL 08/14/18 21:00 09/13/18 20:59 Metoprolol Tartrate (Lopressor) 50 mg Q12HR ORAL 08/14/18 09:00 09/13/18 08:59 08/14/18 08:50 Midodrine (Pro-Amatine) 5 mg THREE TIMES A DAY ORAL 08/14/18 09:00 09/13/18 08:59 08/14/18 13:00 Pantoprazole (Protonix) 40 mg DAILY ORAL 08/14/18 09:00 09/13/18 08:59 08/14/18 08:52 Pyridoxine HCl (Vitamin B6) 50 mg DAILY ORAL 08/14/18 09:00 09/13/18 08:59 08/14/18 08:47 Vitamin B Complex/ Vit C/Folic Acid (Nephrovite) 1 tab DAILY ORAL 08/14/18 09:00 09/13/18 08:59 08/14/18 08:52 Zinc Sulfate (Zinc Sulfate) 220 mg DAILY ORAL 08/14/18 09:00 09/13/18 08:59 08/14/18 08:48 Assessment/Plan Problem List: (1) Sepsis Assessment & Plan: IV abx trend labs will monitor wounds possible debridement ICD Codes: A41.9 - Sepsis, unspecified organism SNOMED: [id number] (2) Decubitus skin ulcer Assessment & Plan: Pt presented on admission with multiple full thickness pressure injuries. Full thickness pressure injury to R elbow.Base of wound wound with 25% fibrinous slough,75% pink granulation noted.(+) maceration along borders. erythema without elevation in skin temp periwound(L)1.5cm x (W)1.8cm x(D)0.3cm. Full thickness pressure injury R trochanter .Base of wound with pink granulation.Edges adherent to base of wound .No odor or exudate noted.Darker skin tone without induration periwound. (L)4.5cm x (W)6.3cm x (D) 3cm.Undermining 12-3 by 3cm @12o'clock. Full thickness pressure injury to R ischium .Wound is malodorous.90% soft necrosis,10% pink noted at base of wound ,(+) epibole along edges .Periwound darker in skin tone and is indurated.(L)8.4cm x (W)4.3cm (D)2.5cm .Tunneling at 1o'clock by 3.6cm ,tunneling @5o'clock by 6.3cm. Full thickness sacral pressure injury with 80% soft necrosis ,20% pink granulation .Wound is malodorous with small amt brown exudate (L)8.5cm x (W)5cm x (D)2.5cm ,undermining 8-5 by 4.7cm @1o'clock. Tx Plan: wash sacral, right ischium and right trochanter wound daily with NS. apply Dakin 's 1/4 % moist wet to dry dressing TID. heel protectors air soft mattress turn q2h thank you ICD Codes: L89.90 - Pressure ulcer of unspecified site, unspecified stage SNOMED: 034903409 BlancoGoyo [email or web address] Aug 14, 2018 14:43
--- NOTE | 2018-08-14 15:34 | Consultation ---
History of Present Illness General Date patient seen: Aug 14, 2018 Chief Complaint: Abnormal Labs Present Illness HPI 68 y/o M with hx of HTN, bipolar dz, Afib, substance abuse, CVA/TIA, HLD, CAD, s /p b/l BKA 05/2018, cavitary PNA (treated empirially for TB per [facility]; final AFB cx 05/2018 were negative), hx of Septic shock 01/2018, hx of ALBERTO requiring HD temporarily 01/2018, decubiti ulcers (elbow, sacrum), SN[facility] resident presents to ED on 08/14 with fever and leukocytosis Allergies: Coded Allergies: MILK (Verified Allergy, Unknown, 02/02/18) Medication History Scheduled Apixaban (Eliquis), 2.5 MG ORAL Q12HR Aripiprazole* (Abilify*), 5 MG ORAL BID, (Reported) Fluticasone/Salmeterol (Advair Hfa 115-21 Mcg Inhaler), 2 PUFFS INH EVERY 12 HOURS, (Reported) Gabapentin* (Gabapentin*), 100 MG ORAL THREE TIMES A DAY Isoniazid (Isoniazid), 300 MG ORAL DAILY Magnesium Hydroxide* (Milk Of Magnesia*), 30 ML ORAL BEDTIME, (Reported) Midodrine* (Proamatine*), 5 MG ORAL THREE TIMES A DAY, (Reported) Pantoprazole* (Protonix*), 40 MG ORAL DAILY, (Reported) Pyridoxine Hcl* (Vitamin B-6*), 50 MG ORAL DAILY Quetiapine Fumarate* (Seroquel*), 100 MG ORAL BEDTIME, (Reported) Vitamin B Cmplx/Vit C/Folic AC (Nephro-Mykel Tablet), 1 TAB ORAL DAILY, (Reported ) Zinc Sulfate (Zinc Sulfate*), 220 MG ORAL DAILY, (Reported) Scheduled PRN Acetaminophen* (Acetaminophen 325MG Tablet*), 650 MG ORAL Q4H PRN for Mild Pain (Pain Scale 1-3), (Reported) Docusate Sodium* (Docusate Sodium*), 100 MG ORAL for Constipation, (Reported) Hydrocodone Bit/Acetaminophen 5-325* ([place] 5-325*), 1 TAB ORAL Q4H PRN for For Pain, (Reported) Discontinued Medications Acetaminophen* (Tylenol Extra Strength*), 1,000 MG ORAL Q4HR PRN for Mild Pain/ Temp > 100.5, (Reported) Discontinued Reason: Therapy completed Amiodarone Hcl* (Pacerone*), 200 MG ORAL DAILY Discontinued Reason: Therapy completed Ascorbic Acid* (Vitamin C*), 500 MG ORAL DAILY, (Reported) Discontinued Reason: Therapy completed Bisacodyl (Bisacodyl), 10 MG RC for Constipation, (Reported) Discontinued Reason: Therapy completed Digoxin* (Lanoxin*), 0.125 MG ORAL DAILY Discontinued Reason: Therapy completed Ethambutol Hcl* (Myambutol*), 1,200 MG ORAL DAILY Discontinued Reason: Therapy completed Levofloxacin* (Levaquin*), 500 MG ORAL DAILY Discontinued Reason: Therapy completed Metronidazole* (Flagyl*), 500 MG ORAL Q8H Discontinued Reason: Therapy completed Pyrazinamide (Pyrazinamide), 1,500 MG ORAL DAILY Discontinued Reason: Therapy completed Sennosides (Senna-Gen), 8.6 MG ORAL BIDPRN PRN Discontinued Reason: Therapy completed Zolpidem Tartrate* (Ambien*), 5 MG ORAL BEDTIME PRN for Insomnia, (Reported) Discontinued Reason: Therapy completed Patient History Healthcare decision maker none Resuscitation status Advanced Directive on File Patient History Narrative Pmhx: as above Shx: reviewed Fhx: non contributory Review of Systems All Other Systems: negative except mentioned in HPI Physical Exam Physical Exam Narrative General appearance: alert, cooperative, no distress, appears stated age Head: Normocephalic, without obvious abnormality, atraumatic Eyes: conjunctivae/corneas clear. PERRL, EOM's intact. Fundi benign Throat: Lips, mucosa, and tongue normal. Teeth and gums normal Neck: supple, symmetrical, trachea midline, no adenopathy, thyroid: not enlarged, symmetric, no tenderness/mass/nodules, no carotid bruit and no JVD Lungs: clear to auscultation bilaterally Heart: regular rate and rhythm, S1, S2 normal, no murmur, click, rub or gallop Abdomen: soft, non-tender. Bowel sounds normal. No masses, no organomegaly Extremities: extremities normal, atraumatic, no cyanosis or edema/ s/p bilateral aka Pulses: 2+ and symmetric Skin: Skin color, texture, turgor normal. No rashes or lesions. multiple large decubitus ulcers. Neurologic: Grossly normal Last 24 Hour Vital Signs Date Time Temp Pulse Resp B/P (MAP) Pulse Ox O2 Delivery O2 Flow Rate FiO2 08/14/18 12:00 97.0 92 24 136/56 (82) 96 08/14/18 12:00 92 08/14/18 09:00 Nasal Cannula 2.0 08/14/18 08:50 130 128/81 08/14/18 08:00 161 08/14/18 08:00 97.7 131 24 128/89 (102) 97 08/14/18 04:00 109 08/14/18 04:00 97.3 48 19 94/56 (69) 93 08/14/18 03:48 99.2 110 18 110/61 98 Room Air 08/14/18 03:40 126 109/60 08/14/18 03:36 Room Air 08/14/18 03:22 99.2 105 18 105/65 98 Room Air 08/14/18 03:21 130 109/61 08/14/18 02:12 129 128/68 08/14/18 01:14 99.1 08/14/18 01:10 101.3 100 18 109/71 96 Room Air 08/14/18 00:40 101.3 105 18 109/71 96 Room Air Laboratory Tests Test 08/14/18 00:45 08/14/18 07:55 White Blood Count 17.3 K/UL (4.8-10.8) H Red Blood Count 2.81 M/UL (4.70-6.10) L Hemoglobin 8.9 G/DL (14.2-18.0) L Hematocrit 27.6 % (42.0-52.0) L Mean Corpuscular Volume 98 FL (80-99) Mean Corpuscular Hemoglobin 31.6 PG (27.0-31.0) H Mean Corpuscular Hemoglobin Concent 32.2 G/DL (32.0-36.0) Red Cell Distribution Width 15.6 % (11.6-14.8) H Platelet Count 295 K/UL (150-450) Mean Platelet Volume 4.6 FL (6.5-10.1) L Neutrophils (%) (Auto) 81.1 % (45.0-75.0) H Lymphocytes (%) (Auto) 9.9 % (20.0-45.0) L Monocytes (%) (Auto) 7.9 % (1.0-10.0) Eosinophils (%) (Auto) 0.1 % (0.0-3.0) Basophils (%) (Auto) 0.9 % (0.0-2.0) Prothrombin Time 16.7 SEC (9.30-11.50) H Prothromb Time International Ratio 1.6 (0.9-1.1) H Activated Partial Thromboplast Time 38 SEC (23-33) H Urine Color Yellow Urine Appearance Clear Urine pH 5 (4.5-8.0) Urine Specific [place] 1.015 (1.005-1.035) Urine Protein 2+ (NEGATIVE) H Urine Glucose (UA) Negative (NEGATIVE) Urine Ketones 1+ (NEGATIVE) H Urine Blood 5+ (NEGATIVE) H Urine Nitrite Negative (NEGATIVE) Urine Bilirubin 1+ (NEGATIVE) H Urine Ictotest Positive (NEGATIVE) Urine Urobilinogen 1 MG/DL (0.0-1.0) H Urine Leukocyte Esterase 1+ (NEGATIVE) H Urine RBC Tntc /HPF (0 - 0) H Urine WBC 2-4 /HPF (0 - 0) Urine Squamous Epithelial Cells None /LPF (NONE/OCC) Urine Bacteria Few /HPF (NONE) Sodium Level 147 MMOL/L (136-145) H Potassium Level 3.4 MMOL/L (3.5-5.1) L Chloride Level 112 MMOL/L (98-107) H Carbon Dioxide Level 24 MMOL/L (21-32) Anion Gap 11 mmol/L (5-15) Blood Urea Nitrogen 24 mg/dL (7-18) H Creatinine 0.7 MG/DL (0.55-1.30) Estimat Glomerular Filtration Rate > 60 mL/min (>60) Glucose Level 88 MG/DL (74-106) Lactic Acid Level 1.60 mmol/L (0.4-2.0) Calcium Level 7.4 MG/DL (8.5-10.1) L Total Bilirubin 0.6 MG/DL (0.2-1.0) Aspartate Amino Transf (AST/SGOT) 20 U/L (15-37) Alanine Aminotransferase (ALT/SGPT) 7 U/L (12-78) L Alkaline Phosphatase 94 U/L (46-116) Total Creatine Kinase 78 U/L (26-308) Creatine Kinase MB 0.7 NG/ML (0.0-3.6) Creatine Kinase MB Relative Index 0.8 Troponin I 0.047 ng/mL (0.000-0.056) 0.039 ng/mL (0.000-0.056) Total Protein 5.1 G/DL (6.4-8.2) L Albumin 1.1 G/DL (3.4-5.0) L Globulin 4.0 g/dL Albumin/Globulin Ratio 0.3 (1.0-2.7) L Microbiology Date/Time Source Procedure Growth Status 08/14/18 02:30 Rectum Received Height (Feet): 6 Height (Inches): 0.40 Weight (Pounds): 148 Medications Current Medications Medications (Trade) Dose Ordered Sig/Erlin Route PRN Reason Start Time Stop Time Status Last Admin Dose Admin Acetaminophen (Tylenol) 650 mg Q4H PRN ORAL Mild Pain (Pain Scale 1-3) 08/14/18 06:45 09/13/18 06:44 Acetaminophen (Tylenol) 650 mg Q6H PRN ORAL Mild Pain/Temp > 100.5 08/14/18 09:00 09/13/18 08:59 Acetaminophen/ Hydrocodone Bitart ([place] 5/325) 1 tab Q4H PRN ORAL For Pain 08/14/18 06:45 08/21/18 06:44 Apixaban (Eliquis) 2.5 mg Q12HR ORAL 08/14/18 09:00 09/13/18 08:59 08/14/18 08:55 Aripiprazole (Abilify) 5 mg BID ORAL 08/14/18 09:00 09/13/18 08:59 08/14/18 08:49 Ceftriaxone Sodium 1 gm/ Dextrose 55 ml @ 110 mls/hr Q24H IVPB 08/14/18 09:00 08/21/18 08:59 08/14/18 08:53 Docusate Sodium (Colace) 100 mg DAILYPRN PRN ORAL Constipation 08/14/18 06:45 09/13/18 06:44 Gabapentin (Neurontin) 100 mg THREE TIMES A DAY ORAL 08/14/18 13:00 09/13/18 12:59 08/14/18 13:00 Isoniazid (Inh) 300 mg DAILY ORAL 08/14/18 09:00 09/13/18 08:59 08/14/18 08:54 Magnesium Hydroxide (Mom) 30 ml BEDTIME ORAL 08/14/18 21:00 09/13/18 20:59 Metoprolol Tartrate (Lopressor) 50 mg Q12HR ORAL 08/14/18 09:00 09/13/18 08:59 08/14/18 08:50 Midodrine (Pro-Amatine) 5 mg THREE TIMES A DAY ORAL 08/14/18 09:00 09/13/18 08:59 08/14/18 13:00 Pantoprazole (Protonix) 40 mg DAILY ORAL 08/14/18 09:00 09/13/18 08:59 08/14/18 08:52 Pyridoxine HCl (Vitamin B6) 50 mg DAILY ORAL 08/14/18 09:00 09/13/18 08:59 08/14/18 08:47 Sodium Hypochlorite (Dakin's Quarter Strength) 1 applic DAILY TOPIC 08/14/18 16:00 09/13/18 15:59 Vitamin B Complex/ Vit C/Folic Acid (Nephrovite) 1 tab DAILY ORAL 08/14/18 09:00 09/13/18 08:59 08/14/18 08:52 Zinc Sulfate (Zinc Sulfate) 220 mg DAILY ORAL 08/14/18 09:00 09/13/18 08:59 08/14/18 08:48 Assessment/Plan Assessment/Plan Abx: Ceftriaxone 08/14- Cefepime x1 08/14 Levaquinx 1 08/14 Assessment: Sepsis-?source- r/o bacteremia, cdiff, flu -u/a no pyuria -CXR: Suspect a small left pleural effusion. Mild basal atelectasis Fever Leukocytosis Hx of lung cavitary lesion/ PNA- suspect likely to aspiration; lower suspicion for TB and/or fungal etiologies -06/08 CT chest: * Interval resolution of the cavitary component associated with the previously described anterior right upper lobe opacity. It is slightly decreased in size and more nodular in appearance on today's exam. Additional patchy opacities in the posterior right upper lobe are also slightly decreased in size and appear more nodular (previously were groundglass). Findings likely related to evolving infectious or inflammatory lesions however continued follow-up is recommended to assure resolution/exclude the possibility of neoplastic etiologies. -CT c/a/p: 10 mm opacity in the peripheral anterolateral right upper lobe with small central cavitation. Patchy groundglass opacity in the posterior right upper lobe. Suspect that these represent inflammatory/infectious lesions, but neoplastic etiology of either is certainly possible. Large left and moderate right pleural effusions. Resultant compressive atelectasis of portions of the lower lobes. 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 Hypertension. Multiple decubiti ulcers (elbow, sacral) -not infected Bipolar disorder. Coronary artery disease. Plan: -Continue empiric Ceftriaxone #1 for now -low threshold to add IV Vancomycin and switch Ceftriaxone to Zosyn if decompensates -Add empiric Tamiflu pending test -Cont INH for latent TB -monitor LFTs -f/u cx -Monitor CBC/CMP, temperatures -Bcx x2, influenza sc, Cdiff -wound care -aspiration precautions -Sx f/u Thank you for this consultation. Will continue to follow along with you. Discussed with Alma Wiley M.D. Aug 14, 2018 15:34
[2018-08-14] MEDS: Dakin's 0.125% Soln (Quarter Strength) 16oz TOPIC SCH (17:45)
[2018-08-14] MEDS: Oseltamivir 75mg cap ORAL SCH (17:45)
--- NOTE | 2018-08-14 19:12 | History & Physical ---
History and Physical History & Physicial Dictated for Int Med-Dr Caban no. [id number]. Daniel Jackson MD Aug 14, 2018 19:12
--- NOTE | 2018-08-14 19:45 | History and Physical Report ---
DATE OF ADMISSION: 08/14/2018 CHIEF COMPLAINT: The patient is a 68-year-old male, who presents with chief complaint of abnormal laboratories. HISTORY OF PRESENT ILLNESS: The patient was admitted to [facility] from May 12 to June 08, 2018. Please see history and physical and discharge summary dictated at that time. The patient was discharged to [facility]. According to staff at [facility], the patient had "abnormal laboratories." The patient had a white count of 18,000. The patient was transferred to [facility] for evaluation. The patient is admitted with leukocytosis to rule out sepsis. REVIEW OF SYSTEMS: Unable to assess, secondary to the patient's mental status. PAST MEDICAL HISTORY: Significant for: 1. History of cerebrovascular accident. 2. Hypertension. 3. History of bipolar disorder. 4. Coronary artery disease. PAST SURGICAL HISTORY: Significant for bilateral [id number] amputation on 05/23/2018 for decubitus ulcer/osteomyelitis. CURRENT MEDICATIONS: 1. Tylenol 650 mg p.o. q.4 hours p.r.n. 2. Eliquis 2.5 mg p.o. twice daily. 3. Abilify 5 mg p.o. twice daily. 4. Advair 115/21 2 puffs p.o. twice daily. 5. Gabapentin 100 mg p.o. three times daily. 6. Aline 5/325 mg one tablet p.o. q.4 hours p.r.n. 7. Isoniazid 300 mg p.o. daily. 8. Midodrine 5 mg p.o. three times daily. 9. Protonix 40 mg p.o. daily. 10. Pyridoxine 50 mg p.o. daily. 11. Seroquel 100 mg p.o. at bedtime. 12. Zinc sulfate 220 mg p.o. daily. ALLERGIES: To milk. SOCIAL HISTORY: The patient is single and is a resident of [facility]. The patient denies tobacco, alcohol use. PHYSICAL EXAMINATION: VITAL SIGNS: Temperature is 97.2, respirations 19, pulse 92 to 131, blood pressure 94 to 128/56 to 89. GENERAL: The patient is a well-developed, well-nourished male, in no apparent distress. HEENT: Eyes, pupils equal and responsive to light and accommodation. Extraocular movements are intact. NECK: Supple without lymphadenopathy. CHEST: Lungs are clear to auscultation bilaterally without wheezes or rales. CARDIOVASCULAR: Tachycardic, regular rhythm. S1-S2 are normal without murmurs, rubs, or gallops. ABDOMEN: Soft, nontender, and nondistended. Positive bowel sounds. No evidence of hepatosplenomegaly. Currently, no rebound or guarding noted. EXTREMITIES: Bilateral rwuqq-alj-cqjq amputation with multiple decubitus ulcers of the sacrum and lower extremities. NEUROLOGICAL: Cranial nerves II through XII are grossly intact without focal deficits. LABORATORY STUDIES: WBC is 17.2, hemoglobin 8.9, hematocrit 27.6, and platelets 295,000. Sodium 147, potassium 3.4, chloride 112, CO2 24, BUN 24, creatinine 0.7, and glucose 88. Urinalysis showed 2+ protein, 1+ ketones, 5+ blood, 1+ bilirubin, leukocyte esterase 1+, and RBCs too numerous to count. ASSESSMENT: This is a 68-year-old male with: 1. Leukocytosis. 2. Urinary tract infection. 3. Cerebrovascular disease. 4. Hypertension. 5. Bipolar disorder. 6. Coronary artery disease. 7. Multiple decubitus ulcers. 8. Bilateral wdgke-ywc-wpyy amputation. TREATMENT: 1. Leukocytosis/urinary tract infection. An Infectious Disease consultation has been obtained with Dr. Elkins. The patient has been placed empirically on ceftriaxone. We will follow recommendations of Infectious Disease. 2. Hypertension. Continue midodrine as above. 3. Bipolar disorder. Continue Pravachol as above. 4. Coronary artery disease. A Cardiology consultation . 5. Multiple decubitus ulcers. A Surgery consultation has been obtained with Dr. Osuna. 6. Status post bilateral tvpys-ytv-jyvg amputation. Daniel Jackson M.D. DR: LES JOB#: [id number] CC:
[2018-08-14] MEDS: Milk of Magnesia 30ml Ud ORAL SCH (21:00)
[2018-08-15] VITALS: BP 107/74
[2018-08-15 04:00] VITALS: BP 125/77
[2018-08-15 08:00] VITALS: BP 137/96
[2018-08-15 08:59] LABS: INR 1.5 (0.9-1.1)
[2018-08-15 09:01] LABS: ALANINE AMINOTRANSFERASE 8 U/L (12-78); ALBUMIN 0.9 G/DL (3.4-5.0); ALBUMIN/GLOBULIN RATIO 0.2 (1.0-2.7); ALKALINE PHOSPHATASE 103 U/L (46-116); ANION GAP 9 mmol/L (5-15); ASPARTATE AMINO TRANSFERASE 15 U/L (15-37); BILIRUBIN,TOTAL 0.4 MG/DL (0.2-1.0); BLOOD UREA NITROGEN 22 mg/dL (7-18); CALCIUM 7.2 MG/DL (8.5-10.1); CARBON DIOXIDE 21 MMOL/L (21-32); CHLORIDE 115 MMOL/L (98-107); CREATININE 0.6 MG/DL (0.55-1.30); PHOSPHORUS 2.2 MG/DL (2.5-4.9); POTASSIUM 3.2 MMOL/L (3.5-5.1); SODIUM 145 MMOL/L (136-145)
[2018-08-15 09:11] LABS: BASOPHILS % (AUTO) 1.1 % (0.0-2.0); EOSINOPHILS % (AUTO) 0.1 % (0.0-3.0); HEMATOCRIT 30.4 % (42.0-52.0); HEMOGLOBIN 9.1 G/DL (14.2-18.0); LYMPHOCYTES % (AUTO) 10.9 % (20.0-45.0); MEAN CORPUSCULAR VOLUME 102 FL (80-99); NEUTROPHILS % (AUTO) 80.9 % (45.0-75.0); PLATELET COUNT 261 K/UL (150-450); RED BLOOD COUNT 2.98 M/UL (4.70-6.10); RED CELL DISTRIBUTION WIDTH 15.1 % (11.6-14.8); WHITE BLOOD COUNT 13.2 K/UL (4.8-10.8)
[2018-08-15] MEDS: Oseltamivir 75mg cap ORAL SCH (09:55)
[2018-08-15] MEDS: Pyridoxine 50mg tab ORAL SCH (09:55)
[2018-08-15] MEDS: Eliquis 2.5mg tablet ORAL SCH ×2 (09:56→21:28)
[2018-08-15] MEDS: Nephrovite tab (Rena-Vite) ORAL SCH (09:56)
[2018-08-15] MEDS: Zinc Sulfate 220mg cap ORAL SCH (09:56)
[2018-08-15] MEDS: Isoniazid 300mg tab ORAL SCH (09:57)
[2018-08-15] MEDS: cefTRIAXone 1 GM in D5W 55 ML IVPB SCH (09:57)
[2018-08-15] MEDS: Metoprolol Tartrate 50mg tab ORAL SCH ×2 (10:00→21:27)
[2018-08-15] MEDS: Dakin's 0.125% Soln (Quarter Strength) 16oz TOPIC SCH (10:14)
--- NOTE | 2018-08-15 11:28 | Pulmonology Progress Note ---
Assessment/Plan Problems: (1) Acute metabolic encephalopathy (2) Sepsis (3) Decubitus skin ulcer (4) UTI (urinary tract infection) (5) Anemia (6) CVA (cerebral vascular accident) Assessment/Plan telemetry records reviewed, still tachy with PAC's and PVC's check cultures iv abx iv fluids check electrolytes wound care surgery consult called Subjective ROS Limited/Unobtainable: No Interval Events: awake, confused Constitutional: Reports: no symptoms Allergies: Coded Allergies: MILK (Verified Allergy, Unknown, 02/02/18) Objective Last 24 Hour Vital Signs Date Time Temp Pulse Resp B/P (MAP) Pulse Ox O2 Delivery O2 Flow Rate FiO2 08/15/18 10:00 126 137/96 08/15/18 04:00 97.7 75 16 125/77 (93) 99 08/15/18 04:00 112 08/15/18 00:00 97.7 76 16 107/74 (85) 98 08/15/18 00:00 115 08/14/18 21:00 Nasal Cannula 2.0 08/14/18 21:00 66 138/65 08/14/18 20:00 107 08/14/18 20:00 97.7 66 22 138/65 (89) 99 08/14/18 16:00 118 08/14/18 16:00 97.3 65 24 138/60 (86) 98 08/14/18 12:00 97.0 92 24 136/56 (82) 96 08/14/18 12:00 92 Intake and Output 08/14/18 08/15/18 19:00 07:00 Intake Total 55 ml 250 ml Balance 55 ml 250 ml Intake Oral 250 ml IV Total 55 ml # Voids 4 2 # Bowel Movements 5 1 General Appearance: WD/WN HEENT: normocephalic, atraumatic Respiratory/Chest: chest wall non-tender, lungs clear, normal breath sounds Cardiovascular: normal peripheral pulses, normal rate Abdomen: normal bowel sounds, soft, non tender Genitourinary: normal external genitalia Extremities: no cyanosis Skin: no rash Microbiology Date/Time Source Procedure Growth Status 08/14/18 01:00 Blood Blood Culture - Preliminary Resulted 08/14/18 00:45 Blood Blood Culture - Preliminary Resulted 08/14/18 17:50 Nasopharynx Influenza Types A,B Antigen (KHALIF) - Final Complete 08/14/18 17:50 Stool Clostridium difficile Toxin Assay - Final Complete 08/14/18 02:30 Rectum Received Laboratory Tests 08/15/18 08:20: White Blood Count 13.2H, Red Blood Count 2.98L, Hemoglobin 9.1L, Hematocrit 30.4L, Mean Corpuscular Volume 102H, Mean Corpuscular Hemoglobin 30.6, Mean Corpuscular Hemoglobin Concent 30.0L, Red Cell Distribution Width 15.1H, Platelet Count 261, Mean Platelet Volume 4.9L, Neutrophils (%) (Auto) 80.9H, Lymphocytes (%) (Auto) 10.9L, Monocytes (%) (Auto) 7.0, Eosinophils (%) (Auto) 0.1, Basophils (%) (Auto) 1.1, Prothrombin Time 15.3H, Prothromb Time International Ratio 1.5H, Activated Partial Thromboplast Time 40H, Sodium Level 145, Potassium Level 3.2L, Chloride Level 115H, Carbon Dioxide Level 21, Anion Gap 9, Blood Urea Nitrogen 22H, Creatinine 0.6, Estimat Glomerular Filtration Rate > 60, Glucose Level 106, Calcium Level 7.2L, Phosphorus Level 2.2L, Magnesium Level 1.5L, Total Bilirubin 0.4, Aspartate Amino Transf (AST/SGOT) 15 , Alanine Aminotransferase (ALT/SGPT) 8L, Alkaline Phosphatase 103, Troponin I 0.024, Total Protein 5.1L, Albumin 0.9L, Globulin 4.2, Albumin/Globulin Ratio 0.2L Current Medications Medications (Trade) Dose Ordered Sig/Erlin Route PRN Reason Start Time Stop Time Status Last Admin Dose Admin Acetaminophen (Tylenol) 650 mg Q4H PRN ORAL Mild Pain (Pain Scale 1-3) 08/14/18 06:45 09/13/18 06:44 Acetaminophen (Tylenol) 650 mg Q6H PRN ORAL Mild Pain/Temp > 100.5 08/14/18 09:00 09/13/18 08:59 Acetaminophen/ Hydrocodone Bitart ([place] 5/325) 1 tab Q4H PRN ORAL For Pain 08/14/18 06:45 08/21/18 06:44 Apixaban (Eliquis) 2.5 mg Q12HR ORAL 08/14/18 09:00 09/13/18 08:59 08/15/18 09:56 Aripiprazole (Abilify) 5 mg BID ORAL 08/14/18 09:00 09/13/18 08:59 08/15/18 09:55 Ceftriaxone Sodium 1 gm/ Dextrose 55 ml @ 110 mls/hr Q24H IVPB 08/14/18 09:00 08/21/18 08:59 08/15/18 09:57 Docusate Sodium (Colace) 100 mg DAILYPRN PRN ORAL Constipation 08/14/18 06:45 09/13/18 06:44 Gabapentin (Neurontin) 100 mg THREE TIMES A DAY ORAL 08/14/18 13:00 09/13/18 12:59 08/15/18 09:55 Isoniazid (Inh) 300 mg DAILY ORAL 08/14/18 09:00 09/13/18 08:59 08/15/18 09:57 Magnesium Hydroxide (Mom) 30 ml BEDTIME ORAL 08/14/18 21:00 09/13/18 20:59 Metoprolol Tartrate (Lopressor) 50 mg Q12HR ORAL 08/14/18 09:00 09/13/18 08:59 08/15/18 10:00 Midodrine (Pro-Amatine) 5 mg THREE TIMES A DAY ORAL 08/14/18 09:00 09/13/18 08:59 08/15/18 09:56 Oseltamivir Phosphate (Tamiflu) 75 mg TWICE A DAY ORAL 08/14/18 18:00 08/19/18 17:59 08/15/18 09:55 Pantoprazole (Protonix) 40 mg DAILY ORAL 08/14/18 09:00 09/13/18 08:59 08/15/18 09:56 Pyridoxine HCl (Vitamin B6) 50 mg DAILY ORAL 08/14/18 09:00 09/13/18 08:59 08/15/18 09:55 Sodium Hypochlorite (Dakin's Quarter Strength) 1 applic DAILY TOPIC 08/14/18 16:00 09/13/18 15:59 08/15/18 10:14 Vancomycin HCl (Firvanq) 250 mg FOUR TIMES A DAY ORAL 08/15/18 13:00 08/22/18 12:59 UNV Vitamin B Complex/ Vit C/Folic Acid (Nephrovite) 1 tab DAILY ORAL 08/14/18 09:00 09/13/18 08:59 08/15/18 09:56 Zinc Sulfate (Zinc Sulfate) 220 mg DAILY ORAL 08/14/18 09:00 09/13/18 08:59 08/15/18 09:56 Minerva Montesinos MD Aug 15, 2018 11:28
[2018-08-15 12:00] VITALS: BP 133/75
--- NOTE | 2018-08-15 12:29 | Infectious Diseases Prog Note ---
Assessment/Plan Assessment/Plan Abx: Ceftriaxone 08/14- Cefepime x1 08/14 Levaquinx 1 08/14 Assessment: Sepsis-2ry to bacteremia and Cdiff -Cdif toxin a/b + -Bcx 06/23 GNR, 07/24 GPC pairns and chains -u/a no pyuria -CXR: Suspect a small left pleural effusion. Mild basal atelectasis -influenza sc neg Fever, improving Leukocytosis ,imrpoving Hx of lung cavitary lesion/ PNA- suspect likely to aspiration; lower suspicion for TB and/or fungal etiologies -06/08 CT chest: * Interval resolution of the cavitary component associated with the previously described anterior right upper lobe opacity. It is slightly decreased in size and more nodular in appearance on today's exam. Additional patchy opacities in the posterior right upper lobe are also slightly decreased in size and appear more nodular (previously were groundglass). Findings likely related to evolving infectious or inflammatory lesions however continued follow-up is recommended to assure resolution/exclude the possibility of neoplastic etiologies. -CT c/a/p: 10 mm opacity in the peripheral anterolateral right upper lobe with small central cavitation. Patchy groundglass opacity in the posterior right upper lobe. Suspect that these represent inflammatory/infectious lesions, but neoplastic etiology of either is certainly possible. Large left and moderate right pleural effusions. Resultant compressive atelectasis of portions of the lower lobes. 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 Hypertension. Multiple decubiti ulcers (elbow, sacral) -not infected Bipolar disorder. Coronary artery disease. Plan: -Switch empiric Ceftriaxone #2 to Zosyn pending GNR ID in bcx -Add Daptomycin pending ID GPC in bcx -monitor CPK -Continue PO Vancomycin #1 for Cdiff -D/c empiric Tamiflu #2 -08/14 SP Cefepime and LEvaquin x1 -Cont INH for latent TB -monitor LFTs -Repeat Bcx x2, ucx -f/u cx -Monitor CBC/CMP, temperatures -wound care -aspiration precautions -Sx f/u Thank you for this consultation. Will continue to follow along with you. Discussed with RN. Subjective Allergies: Coded Allergies: MILK (Verified Allergy, Unknown, 02/02/18) Subjective afebrile in ~36hrs wbc improving bacteremic GNR, GPC pairns and chains Cdiff + Objective Vital Signs Last 24 Hour Vital Signs Date Time Temp Pulse Resp B/P (MAP) Pulse Ox O2 Delivery O2 Flow Rate FiO2 08/15/18 10:00 126 137/96 08/15/18 09:00 Nasal Cannula 2.0 08/15/18 08:00 99.2 118 20 137/96 (110) 96 08/15/18 08:00 118 08/15/18 04:00 97.7 75 16 125/77 (93) 99 08/15/18 04:00 112 08/15/18 00:00 97.7 76 16 107/74 (85) 98 08/15/18 00:00 115 08/14/18 21:00 Nasal Cannula 2.0 08/14/18 21:00 66 138/65 08/14/18 20:00 107 08/14/18 20:00 97.7 66 22 138/65 (89) 99 08/14/18 16:00 118 08/14/18 16:00 97.3 65 24 138/60 (86) 98 Height (Feet): 6 Height (Inches): 0.40 Weight (Pounds): 148 Objective General appearance: alert, cooperative, no distress, appears stated age Head: Normocephalic, without obvious abnormality, atraumatic Eyes: conjunctivae/corneas clear. PERRL, EOM's intact. Fundi benign Throat: Lips, mucosa, and tongue normal. Teeth and gums normal Neck: supple, symmetrical, trachea midline, no adenopathy, thyroid: not enlarged, symmetric, no tenderness/mass/nodules, no carotid bruit and no JVD Lungs: clear to auscultation bilaterally Heart: regular rate and rhythm, S1, S2 normal, no murmur, click, rub or gallop Abdomen: soft, non-tender. Bowel sounds normal. No masses, no organomegaly Extremities: extremities normal, atraumatic, no cyanosis or edema/ s/p bilateral aka Pulses: 2+ and symmetric Skin: Skin color, texture, turgor normal. No rashes or lesions. multiple large decubitus ulcers. Neurologic: Grossly normal Microbiology Date/Time Source Procedure Growth Status 08/14/18 01:00 Blood Blood Culture - Preliminary Resulted 08/14/18 00:45 Blood Blood Culture - Preliminary Resulted 08/14/18 17:50 Nasopharynx Influenza Types A,B Antigen (KHALIF) - Final Complete 08/14/18 17:50 Stool Clostridium difficile Toxin Assay - Final Complete 08/14/18 02:30 Rectum Received Laboratory Tests Test 08/15/18 08:20 White Blood Count 13.2 K/UL (4.8-10.8) H Red Blood Count 2.98 M/UL (4.70-6.10) L Hemoglobin 9.1 G/DL (14.2-18.0) L Hematocrit 30.4 % (42.0-52.0) L Mean Corpuscular Volume 102 FL (80-99) H Mean Corpuscular Hemoglobin 30.6 PG (27.0-31.0) Mean Corpuscular Hemoglobin Concent 30.0 G/DL (32.0-36.0) L Red Cell Distribution Width 15.1 % (11.6-14.8) H Platelet Count 261 K/UL (150-450) Mean Platelet Volume 4.9 FL (6.5-10.1) L Neutrophils (%) (Auto) 80.9 % (45.0-75.0) H Lymphocytes (%) (Auto) 10.9 % (20.0-45.0) L Monocytes (%) (Auto) 7.0 % (1.0-10.0) Eosinophils (%) (Auto) 0.1 % (0.0-3.0) Basophils (%) (Auto) 1.1 % (0.0-2.0) Prothrombin Time 15.3 SEC (9.30-11.50) H Prothromb Time International Ratio 1.5 (0.9-1.1) H Activated Partial Thromboplast Time 40 SEC (23-33) H Sodium Level 145 MMOL/L (136-145) Potassium Level 3.2 MMOL/L (3.5-5.1) L Chloride Level 115 MMOL/L (98-107) H Carbon Dioxide Level 21 MMOL/L (21-32) Anion Gap 9 mmol/L (5-15) Blood Urea Nitrogen 22 mg/dL (7-18) H Creatinine 0.6 MG/DL (0.55-1.30) Estimat Glomerular Filtration Rate > 60 mL/min (>60) Glucose Level 106 MG/DL (74-106) Calcium Level 7.2 MG/DL (8.5-10.1) L Phosphorus Level 2.2 MG/DL (2.5-4.9) L Magnesium Level 1.5 MG/DL (1.8-2.4) L Total Bilirubin 0.4 MG/DL (0.2-1.0) Aspartate Amino Transf (AST/SGOT) 15 U/L (15-37) Alanine Aminotransferase (ALT/SGPT) 8 U/L (12-78) L Alkaline Phosphatase 103 U/L (46-116) Troponin I 0.024 ng/mL (0.000-0.056) Total Protein 5.1 G/DL (6.4-8.2) L Albumin 0.9 G/DL (3.4-5.0) L Globulin 4.2 g/dL Albumin/Globulin Ratio 0.2 (1.0-2.7) L Current Medications Medications (Trade) Dose Ordered Sig/Erlin Route PRN Reason Start Time Stop Time Status Last Admin Dose Admin Acetaminophen (Tylenol) 650 mg Q4H PRN ORAL Mild Pain (Pain Scale 1-3) 08/14/18 06:45 09/13/18 06:44 Acetaminophen (Tylenol) 650 mg Q6H PRN ORAL Mild Pain/Temp > 100.5 08/14/18 09:00 09/13/18 08:59 Acetaminophen/ Hydrocodone Bitart ([place] 5/325) 1 tab Q4H PRN ORAL For Pain 08/14/18 06:45 08/21/18 06:44 Apixaban (Eliquis) 2.5 mg Q12HR ORAL 08/14/18 09:00 09/13/18 08:59 08/15/18 09:56 Aripiprazole (Abilify) 5 mg BID ORAL 08/14/18 09:00 09/13/18 08:59 08/15/18 09:55 Ceftriaxone Sodium 1 gm/ Dextrose 55 ml @ 110 mls/hr Q24H IVPB 08/14/18 09:00 08/21/18 08:59 08/15/18 09:57 Docusate Sodium (Colace) 100 mg DAILYPRN PRN ORAL Constipation 08/14/18 06:45 09/13/18 06:44 Gabapentin (Neurontin) 100 mg THREE TIMES A DAY ORAL 08/14/18 13:00 09/13/18 12:59 08/15/18 09:55 Isoniazid (Inh) 300 mg DAILY ORAL 08/14/18 09:00 09/13/18 08:59 08/15/18 09:57 Magnesium Hydroxide (Mom) 30 ml BEDTIME ORAL 08/14/18 21:00 09/13/18 20:59 Magnesium Sulfate 100 ml @ 100 mls/hr Q1H IVPB 08/15/18 13:00 08/15/18 14:59 Metoprolol Tartrate (Lopressor) 50 mg Q12HR ORAL 08/14/18 09:00 09/13/18 08:59 08/15/18 10:00 Midodrine (Pro-Amatine) 5 mg THREE TIMES A DAY ORAL 08/14/18 09:00 09/13/18 08:59 08/15/18 09:56 Oseltamivir Phosphate (Tamiflu) 75 mg TWICE A DAY ORAL 08/14/18 18:00 08/19/18 17:59 08/15/18 09:55 Pantoprazole (Protonix) 40 mg DAILY ORAL 08/14/18 09:00 09/13/18 08:59 08/15/18 09:56 Potassium Chloride 40 meq/ Sodium Chloride 570 ml @ 142.5 mls/ hr ONCE ONCE IVPB 08/15/18 13:00 08/15/18 16:59 Pyridoxine HCl (Vitamin B6) 50 mg DAILY ORAL 08/14/18 09:00 09/13/18 08:59 08/15/18 09:55 Sodium Hypochlorite (Dakin's Quarter Strength) 1 applic DAILY TOPIC 08/14/18 16:00 09/13/18 15:59 08/15/18 10:14 Sodium Phosphate 30 mm/Sodium Chloride 285 ml @ 47.5 mls/hr ONCE ONCE IV 08/15/18 13:00 08/15/18 18:59 Vancomycin HCl (Firvanq) 250 mg FOUR TIMES A DAY ORAL 08/15/18 13:00 08/22/18 12:59 Vitamin B Complex/ Vit C/Folic Acid (Nephrovite) 1 tab DAILY ORAL 08/14/18 09:00 09/13/18 08:59 08/15/18 09:56 Zinc Sulfate (Zinc Sulfate) 220 mg DAILY ORAL 08/14/18 09:00 09/13/18 08:59 08/15/18 09:56 Alma Elkins M.D. Aug 15, 2018 12:29
[2018-08-15] MEDS ORDERED: Potassium Chloride 40 MEQ in Sodium Chloride 550 ML IVPB ONE (13:00)
[2018-08-15] MEDS ORDERED: Sodium Phosphate 30 MM in NS 275 ML IV ONE (13:00)
--- NOTE | 2018-08-15 13:35 | Surgery Progress Note ---
Surgery Progress Note Subjective Additional Comments leukocytosis improved. labs noted. no acute events. Objective Last 24 Hour Vital Signs Date Time Temp Pulse Resp B/P (MAP) Pulse Ox O2 Delivery O2 Flow Rate FiO2 08/15/18 10:00 126 137/96 08/15/18 09:00 Nasal Cannula 2.0 08/15/18 08:00 99.2 118 20 137/96 (110) 96 08/15/18 08:00 118 08/15/18 04:00 97.7 75 16 125/77 (93) 99 08/15/18 04:00 112 08/15/18 00:00 97.7 76 16 107/74 (85) 98 08/15/18 00:00 115 08/14/18 21:00 Nasal Cannula 2.0 08/14/18 21:00 66 138/65 08/14/18 20:00 107 08/14/18 20:00 97.7 66 22 138/65 (89) 99 08/14/18 16:00 118 08/14/18 16:00 97.3 65 24 138/60 (86) 98 I&O Intake and Output 08/14/18 08/15/18 19:00 07:00 Intake Total 55 ml 250 ml Balance 55 ml 250 ml Intake Oral 250 ml IV Total 55 ml # Voids 4 2 # Bowel Movements 5 1 Laboratory Tests Test 08/15/18 08:20 White Blood Count 13.2 K/UL (4.8-10.8) H Red Blood Count 2.98 M/UL (4.70-6.10) L Hemoglobin 9.1 G/DL (14.2-18.0) L Hematocrit 30.4 % (42.0-52.0) L Mean Corpuscular Volume 102 FL (80-99) H Mean Corpuscular Hemoglobin 30.6 PG (27.0-31.0) Mean Corpuscular Hemoglobin Concent 30.0 G/DL (32.0-36.0) L Red Cell Distribution Width 15.1 % (11.6-14.8) H Platelet Count 261 K/UL (150-450) Mean Platelet Volume 4.9 FL (6.5-10.1) L Neutrophils (%) (Auto) 80.9 % (45.0-75.0) H Lymphocytes (%) (Auto) 10.9 % (20.0-45.0) L Monocytes (%) (Auto) 7.0 % (1.0-10.0) Eosinophils (%) (Auto) 0.1 % (0.0-3.0) Basophils (%) (Auto) 1.1 % (0.0-2.0) Prothrombin Time 15.3 SEC (9.30-11.50) H Prothromb Time International Ratio 1.5 (0.9-1.1) H Activated Partial Thromboplast Time 40 SEC (23-33) H Sodium Level 145 MMOL/L (136-145) Potassium Level 3.2 MMOL/L (3.5-5.1) L Chloride Level 115 MMOL/L (98-107) H Carbon Dioxide Level 21 MMOL/L (21-32) Anion Gap 9 mmol/L (5-15) Blood Urea Nitrogen 22 mg/dL (7-18) H Creatinine 0.6 MG/DL (0.55-1.30) Estimat Glomerular Filtration Rate > 60 mL/min (>60) Glucose Level 106 MG/DL (74-106) Calcium Level 7.2 MG/DL (8.5-10.1) L Phosphorus Level 2.2 MG/DL (2.5-4.9) L Magnesium Level 1.5 MG/DL (1.8-2.4) L Total Bilirubin 0.4 MG/DL (0.2-1.0) Aspartate Amino Transf (AST/SGOT) 15 U/L (15-37) Alanine Aminotransferase (ALT/SGPT) 8 U/L (12-78) L Alkaline Phosphatase 103 U/L (46-116) Troponin I 0.024 ng/mL (0.000-0.056) Total Protein 5.1 G/DL (6.4-8.2) L Albumin 0.9 G/DL (3.4-5.0) L Globulin 4.2 g/dL Albumin/Globulin Ratio 0.2 (1.0-2.7) L Plan Problems: (1) Sepsis Assessment & Plan: IV abx trend labs will monitor wounds possible debridement (2) Decubitus skin ulcer Assessment & Plan: Pt presented on admission with multiple full thickness pressure injuries. Full thickness pressure injury to L elbow.Base of wound wound with 25% fibrinous slough,75% pink granulation noted.(+) maceration along borders. erythema without elevation in skin temp periwound(L)1.5cm x (W)1.8cm x(D)0.3cm. Full thickness pressure injury R trochanter .Base of wound with pink granulation.Edges adherent to base of wound .No odor or exudate noted.Darker skin tone without induration periwound. (L)4.5cm x (W)6.3cm x (D) 3cm.Undermining 12-3 by 3cm @12o'clock. Full thickness pressure injury to R ischium .Wound is malodorous.90% soft necrosis,10% pink noted at base of wound ,(+) epibole along edges .Periwound darker in skin tone and is indurated.(L)8.4cm x (W)4.3cm (D)2.5cm .Tunneling at 1o'clock by 3.6cm ,tunneling @5o'clock by 6.3cm. Full thickness sacral pressure injury with 80% soft necrosis ,20% pink granulation .Wound is malodorous with small amt brown exudate (L)8.5cm x (W)5cm x (D)2.5cm ,undermining 8-5 by 4.7cm @1o'clock. Tx.Plan: Cleanse R trochanter with Dakin's 0.125% candelaria. Loosely pack with Dakin's soaked kerlix .Cover with Optifoam drsg TID and prn. Cleanse R Ischial wound with Dakin's 0.125% candelaria.Loosely pack with Dakin's soaked kerlix. Cavilon Skin Barrier periwound. Cover with Optifoam drsg TID and prn. Cleanse Sacral wound with dakin's 0.125% candelaria.Loosely pack with Dakin's soaked kerlix.Cavilon Skin Barrier periwound.Cover with Optifoam drsg TID and prn. Cleanse L elbow with Dakin's 0.125% candelaria. Apply Dakin's moist 2x2 gauze. Cover with Optifoam drsg TID and prn. Quartet Air fluidized mattress. Reposition L side to back at least every 2hours or as tolerated. Goyo Osuna Aug 15, 2018 13:35
[2018-08-15] MEDS: Vancomycin oral 125mg/2.5ml ORAL SCH ×3 (14:41→22:03)
[2018-08-15] MEDS: Piperacillin/Tazobactam 3.375 GM in D5W 110 ML IVPB SCH ×2 (14:42→21:28)
[2018-08-15 16:49] VITALS: BP 105/71
[2018-08-15] MEDS: DAPTOmycin 400 MG in NS 55 ML IV SCH (17:49)
--- NOTE | 2018-08-15 18:20 | Internal Med Progress Note ---
Subjective Date of Service: Aug 15, 2018 Physician Name Daniel Jackson Attending Physician Pedro Caban MD Current Medications Medications (Trade) Dose Ordered Sig/Erlin Route PRN Reason Start Time Stop Time Status Last Admin Dose Admin Acetaminophen (Tylenol) 650 mg Q4H PRN ORAL Mild Pain (Pain Scale 1-3) 08/14/18 06:45 09/13/18 06:44 Acetaminophen (Tylenol) 650 mg Q6H PRN ORAL Mild Pain/Temp > 100.5 08/14/18 09:00 09/13/18 08:59 Acetaminophen/ Hydrocodone Bitart ([place] 5/325) 1 tab Q4H PRN ORAL For Pain 08/14/18 06:45 08/21/18 06:44 Apixaban (Eliquis) 2.5 mg Q12HR ORAL 08/14/18 09:00 09/13/18 08:59 08/15/18 09:56 Aripiprazole (Abilify) 5 mg BID ORAL 08/14/18 09:00 09/13/18 08:59 08/15/18 17:49 Daptomycin 400 mg/ Sodium Chloride 55 ml @ 110 mls/hr Q24H IV 08/15/18 18:00 08/22/18 17:59 08/15/18 17:49 Docusate Sodium (Colace) 100 mg DAILYPRN PRN ORAL Constipation 08/14/18 06:45 09/13/18 06:44 Gabapentin (Neurontin) 100 mg THREE TIMES A DAY ORAL 08/14/18 13:00 09/13/18 12:59 08/15/18 17:48 Isoniazid (Inh) 300 mg DAILY ORAL 08/14/18 09:00 09/13/18 08:59 08/15/18 09:57 Magnesium Hydroxide (Mom) 30 ml BEDTIME ORAL 08/14/18 21:00 09/13/18 20:59 Metoprolol Tartrate (Lopressor) 50 mg Q12HR ORAL 08/14/18 09:00 09/13/18 08:59 08/15/18 10:00 Midodrine (Pro-Amatine) 5 mg THREE TIMES A DAY ORAL 08/14/18 09:00 09/13/18 08:59 08/15/18 17:48 Pantoprazole (Protonix) 40 mg DAILY ORAL 08/14/18 09:00 09/13/18 08:59 08/15/18 09:56 Piperacillin Sod/ Tazobactam Sod 3.375 gm/Dextrose 110 ml @ 27.5 mls/hr EVERY 8 HOURS IVPB 08/15/18 14:00 08/20/18 13:59 08/15/18 14:42 Pyridoxine HCl (Vitamin B6) 50 mg DAILY ORAL 08/14/18 09:00 09/13/18 08:59 08/15/18 09:55 Sodium Hypochlorite (Dakin's Quarter Strength) 1 applic DAILY TOPIC 08/14/18 16:00 09/13/18 15:59 08/15/18 10:14 Sodium Phosphate 30 mm/Sodium Chloride 285 ml @ 47.5 mls/hr ONCE ONCE IV 08/15/18 13:00 08/15/18 18:59 08/15/18 14:40 Vancomycin HCl (Firvanq) 250 mg FOUR TIMES A DAY ORAL 08/15/18 13:00 08/22/18 12:59 08/15/18 17:49 Vitamin B Complex/ Vit C/Folic Acid (Nephrovite) 1 tab DAILY ORAL 08/14/18 09:00 09/13/18 08:59 08/15/18 09:56 Zinc Sulfate (Zinc Sulfate) 220 mg DAILY ORAL 08/14/18 09:00 09/13/18 08:59 08/15/18 09:56 Allergies: Coded Allergies: MILK (Verified Allergy, Unknown, 02/02/18) ROS Limited/Unobtainable: Yes Subjective 68 YO M admitted with fever and leukocytosis. Now Sepsis and C. Difficile colitis/diarrhea. Cover for Int Med-Dr Caban. Objective Last Vital Signs Date Time Temp Pulse Resp B/P (MAP) Pulse Ox O2 Delivery O2 Flow Rate FiO2 08/15/18 16:49 99.3 92 20 105/71 (82) 95 08/15/18 09:00 Nasal Cannula 2.0 General Appearance: WD/WN, no apparent distress, lethargic EENT: PERRL/EOMI, normal ENT inspection Neck: non-tender, normal alignment, supple, normal inspection Cardiovascular: normal peripheral pulses, normal rate, regular rhythm, no gallop/murmur, no JVD Respiratory/Chest: chest wall non-tender, lungs clear, normal breath sounds, no respiratory distress, no accessory muscle use Abdomen: normal bowel sounds, non tender, soft, no organomegaly, no mass Extremities: normal range of motion, non-tender 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: 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 II-XII grossly normal Skin: normal pigmentation, warm/dry Laboratory Tests Test 08/15/18 08:20 White Blood Count 13.2 K/UL (4.8-10.8) H Red Blood Count 2.98 M/UL (4.70-6.10) L Hemoglobin 9.1 G/DL (14.2-18.0) L Hematocrit 30.4 % (42.0-52.0) L Mean Corpuscular Volume 102 FL (80-99) H Mean Corpuscular Hemoglobin 30.6 PG (27.0-31.0) Mean Corpuscular Hemoglobin Concent 30.0 G/DL (32.0-36.0) L Red Cell Distribution Width 15.1 % (11.6-14.8) H Platelet Count 261 K/UL (150-450) Mean Platelet Volume 4.9 FL (6.5-10.1) L Neutrophils (%) (Auto) 80.9 % (45.0-75.0) H Lymphocytes (%) (Auto) 10.9 % (20.0-45.0) L Monocytes (%) (Auto) 7.0 % (1.0-10.0) Eosinophils (%) (Auto) 0.1 % (0.0-3.0) Basophils (%) (Auto) 1.1 % (0.0-2.0) Prothrombin Time 15.3 SEC (9.30-11.50) H Prothromb Time International Ratio 1.5 (0.9-1.1) H Activated Partial Thromboplast Time 40 SEC (23-33) H Sodium Level 145 MMOL/L (136-145) Potassium Level 3.2 MMOL/L (3.5-5.1) L Chloride Level 115 MMOL/L (98-107) H Carbon Dioxide Level 21 MMOL/L (21-32) Anion Gap 9 mmol/L (5-15) Blood Urea Nitrogen 22 mg/dL (7-18) H Creatinine 0.6 MG/DL (0.55-1.30) Estimat Glomerular Filtration Rate > 60 mL/min (>60) Glucose Level 106 MG/DL (74-106) Calcium Level 7.2 MG/DL (8.5-10.1) L Phosphorus Level 2.2 MG/DL (2.5-4.9) L Magnesium Level 1.5 MG/DL (1.8-2.4) L Total Bilirubin 0.4 MG/DL (0.2-1.0) Aspartate Amino Transf (AST/SGOT) 15 U/L (15-37) Alanine Aminotransferase (ALT/SGPT) 8 U/L (12-78) L Alkaline Phosphatase 103 U/L (46-116) Troponin I 0.024 ng/mL (0.000-0.056) Total Protein 5.1 G/DL (6.4-8.2) L Albumin 0.9 G/DL (3.4-5.0) L Globulin 4.2 g/dL Albumin/Globulin Ratio 0.2 (1.0-2.7) L Microbiology Date/Time Source Procedure Growth Status 08/14/18 01:00 Blood Blood Culture - Preliminary Resulted 08/14/18 00:45 Blood Blood Culture - Preliminary Resulted 08/14/18 17:50 Nasopharynx Influenza Types A,B Antigen (KHALIF) - Final Complete 08/14/18 17:50 Stool Clostridium difficile Toxin Assay - Final Complete 08/14/18 02:30 Rectum Received Intake and Output 08/14/18 08/15/18 18:59 06:59 Intake Total 55 ml 250 ml Balance 55 ml 250 ml Intake Oral 250 ml IV Total 55 ml # Voids 4 2 # Bowel Movements 5 1 Assessment/Plan Problem List: (1) Hypercholesterolemia (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 Await ID and sensitivity. Continue zosyn, vanco and daptomycin per ID. (10) CVA (cerebral vascular accident) (11) Acute metabolic encephalopathy (12) HTN (hypertension) (13) CAD (coronary artery disease) (14) Atrial fibrillation Assessment & Plan: Continue eliquis Status: not improved Daniel Jackson MD Aug 15, 2018 18:20
[2018-08-15 20:00] VITALS: BP 114/50
[2018-08-15] MEDS: Milk of Magnesia 30ml Ud ORAL SCH (21:37)
[2018-08-16] VITALS: BP 109/63
[2018-08-16 04:00] VITALS: BP 106/68
[2018-08-16] MEDS: Piperacillin/Tazobactam 3.375 GM in D5W 110 ML IVPB SCH ×3 (06:02→21:53)
[2018-08-16 08:00] VITALS: BP 117/78
[2018-08-16] MEDS: Pyridoxine 50mg tab ORAL SCH (09:20)
[2018-08-16] MEDS: Isoniazid 300mg tab ORAL SCH (09:20)
[2018-08-16] MEDS: Zinc Sulfate 220mg cap ORAL SCH (09:20)
[2018-08-16] MEDS: Metoprolol Tartrate 50mg tab ORAL SCH ×2 (09:20→21:53)
[2018-08-16] MEDS: Eliquis 2.5mg tablet ORAL SCH ×2 (09:21→21:54)
[2018-08-16] MEDS: Vancomycin oral 125mg/2.5ml ORAL SCH ×4 (09:21→21:52)
[2018-08-16] MEDS: Nephrovite tab (Rena-Vite) ORAL SCH (09:21)
[2018-08-16 09:38] LABS: BASOPHILS % (AUTO) 0.9 % (0.0-2.0); EOSINOPHILS % (AUTO) 0.2 % (0.0-3.0); HEMATOCRIT 29.4 % (42.0-52.0); HEMOGLOBIN 8.8 G/DL (14.2-18.0); LYMPHOCYTES % (AUTO) 14.6 % (20.0-45.0); MEAN CORPUSCULAR VOLUME 101 FL (80-99); MONOCYTES % (AUTO) 7.3 % (1.0-10.0); PLATELET COUNT 193 K/UL (150-450); RED CELL DISTRIBUTION WIDTH 15.5 % (11.6-14.8); WHITE BLOOD COUNT 14.6 K/UL (4.8-10.8)
[2018-08-16] MEDS: Dakin's 0.125% Soln (Quarter Strength) 16oz TOPIC SCH (09:39)
[2018-08-16 09:49] LABS: INR 1.4 (0.9-1.1)
[2018-08-16 09:59] LABS: ALANINE AMINOTRANSFERASE < 6 U/L (12-78); ALBUMIN 1.1 G/DL (3.4-5.0); ALBUMIN/GLOBULIN RATIO 0.3 (1.0-2.7); ALKALINE PHOSPHATASE 96 U/L (46-116); ANION GAP 8 mmol/L (5-15); ASPARTATE AMINO TRANSFERASE 17 U/L (15-37); BILIRUBIN,TOTAL 0.6 MG/DL (0.2-1.0); BLOOD UREA NITROGEN 20 mg/dL (7-18); CARBON DIOXIDE 23 MMOL/L (21-32); CHLORIDE 118 MMOL/L (98-107); CREATINE KINASE 121 U/L (26-308); CREATININE 0.6 MG/DL (0.55-1.30); PHOSPHORUS 2.7 MG/DL (2.5-4.9); POTASSIUM 3.1 MMOL/L (3.5-5.1); SODIUM 149 MMOL/L (136-145)
--- NOTE | 2018-08-16 10:39 | Surgery Progress Note ---
Surgery Progress Note Subjective Additional Comments spoke with daughter today. plan for debridement of necrotic infected decubitus ulcers this week. Objective Last 24 Hour Vital Signs Date Time Temp Pulse Resp B/P (MAP) Pulse Ox O2 Delivery O2 Flow Rate FiO2 08/16/18 09:20 103 117/78 08/16/18 09:00 Nasal Cannula 2.0 08/16/18 08:00 99.1 103 20 117/78 (91) 100 08/16/18 07:32 91 08/16/18 04:00 85 08/16/18 04:00 98.2 70 20 106/68 (81) 97 08/16/18 00:00 98.0 64 20 109/63 (78) 97 08/16/18 00:00 72 08/15/18 21:27 99 114/50 08/15/18 21:00 Nasal Cannula 2.0 08/15/18 20:00 99.0 92 20 114/50 (71) 99 08/15/18 20:00 99 08/15/18 16:49 99.3 92 20 105/71 (82) 95 08/15/18 16:00 109 08/15/18 12:00 99.0 93 20 133/75 (94) 99 08/15/18 12:00 93 I&O Intake and Output 08/15/18 08/16/18 19:00 07:00 Intake Total 120 ml 124.7 ml Balance 120 ml 124.7 ml Intake Oral 120 ml IV Total 124.7 ml # Voids 2 # Bowel Movements 2 3 Dressing: other Wound: other Drains: other Cardiovascular: RSR Respiratory: clear Abdomen: soft, present bowel sounds, non-distended Extremities: other - b/l AKA Laboratory Tests Test 08/16/18 09:30 White Blood Count 14.6 K/UL (4.8-10.8) H Red Blood Count 2.90 M/UL (4.70-6.10) L Hemoglobin 8.8 G/DL (14.2-18.0) L Hematocrit 29.4 % (42.0-52.0) L Mean Corpuscular Volume 101 FL (80-99) H Mean Corpuscular Hemoglobin 30.4 PG (27.0-31.0) Mean Corpuscular Hemoglobin Concent 30.0 G/DL (32.0-36.0) L Red Cell Distribution Width 15.5 % (11.6-14.8) H Platelet Count 193 K/UL (150-450) Mean Platelet Volume 5.2 FL (6.5-10.1) L Neutrophils (%) (Auto) 77.0 % (45.0-75.0) H Lymphocytes (%) (Auto) 14.6 % (20.0-45.0) L Monocytes (%) (Auto) 7.3 % (1.0-10.0) Eosinophils (%) (Auto) 0.2 % (0.0-3.0) Basophils (%) (Auto) 0.9 % (0.0-2.0) Prothrombin Time 14.2 SEC (9.30-11.50) H Prothromb Time International Ratio 1.4 (0.9-1.1) H Activated Partial Thromboplast Time 39 SEC (23-33) H Sodium Level 149 MMOL/L (136-145) H Potassium Level 3.1 MMOL/L (3.5-5.1) L Chloride Level 118 MMOL/L (98-107) H Carbon Dioxide Level 23 MMOL/L (21-32) Anion Gap 8 mmol/L (5-15) Blood Urea Nitrogen 20 mg/dL (7-18) H Creatinine 0.6 MG/DL (0.55-1.30) Estimat Glomerular Filtration Rate > 60 mL/min (>60) Glucose Level 101 MG/DL (74-106) Calcium Level 7.0 MG/DL (8.5-10.1) L Phosphorus Level 2.7 MG/DL (2.5-4.9) Magnesium Level 2.2 MG/DL (1.8-2.4) Total Bilirubin 0.6 MG/DL (0.2-1.0) Aspartate Amino Transf (AST/SGOT) 17 U/L (15-37) Alanine Aminotransferase (ALT/SGPT) < 6 U/L (12-78) L Alkaline Phosphatase 96 U/L (46-116) Total Creatine Kinase 121 U/L (26-308) Total Protein 5.0 G/DL (6.4-8.2) L Albumin 1.1 G/DL (3.4-5.0) L Globulin 3.9 g/dL Albumin/Globulin Ratio 0.3 (1.0-2.7) L Plan Problems: (1) Sepsis Assessment & Plan: IV abx trend labs will monitor wounds possible debridement (2) Decubitus skin ulcer Assessment & Plan: Pt presented on admission with multiple full thickness pressure injuries. Full thickness pressure injury to L elbow.Base of wound wound with 25% fibrinous slough,75% pink granulation noted.(+) maceration along borders. erythema without elevation in skin temp periwound(L)1.5cm x (W)1.8cm x(D)0.3cm. Full thickness pressure injury R trochanter .Base of wound with pink granulation.Edges adherent to base of wound .No odor or exudate noted.Darker skin tone without induration periwound. (L)4.5cm x (W)6.3cm x (D) 3cm.Undermining 12-3 by 3cm @12o'clock. Full thickness pressure injury to R ischium .Wound is malodorous.90% soft necrosis,10% pink noted at base of wound ,(+) epibole along edges .Periwound darker in skin tone and is indurated.(L)8.4cm x (W)4.3cm (D)2.5cm .Tunneling at 1o'clock by 3.6cm ,tunneling @5o'clock by 6.3cm. Full thickness sacral pressure injury with 80% soft necrosis ,20% pink granulation .Wound is malodorous with small amt brown exudate (L)8.5cm x (W)5cm x (D)2.5cm ,undermining 8-5 by 4.7cm @1o'clock. Tx.Plan: Cleanse R trochanter with Dakin's 0.125% candelaria. Loosely pack with Dakin's soaked kerlix .Cover with Optifoam drsg TID and prn. Cleanse R Ischial wound with Dakin's 0.125% canedlaria.Loosely pack with Dakin's soaked kerlix. Cavilon Skin Barrier periwound. Cover with Optifoam drsg TID and prn. Cleanse Sacral wound with dakin's 0.125% candelaria.Loosely pack with Dakin's soaked kerlix.Cavilon Skin Barrier periwound.Cover with Optifoam drsg TID and prn. Cleanse L elbow with Dakin's 0.125% candelaria. Apply Dakin's moist 2x2 gauze. Cover with Optifoam drsg TID and prn. Quartet Air fluidized mattress. Reposition L side to back at least every 2hours or as tolerated. Goyo Osuna Aug 16, 2018 10:39
--- NOTE | 2018-08-16 11:09 | Infectious Diseases Prog Note ---
Assessment/Plan Assessment/Plan Assessment: Sepsis-2ry to bacteremia and Cdiff -Cdif toxin a/b + -Bcx 3/ GNR, / GPC pairns and chains; 08/15 Bcx p -u/a no pyuria -CXR: Suspect a small left pleural effusion. Mild basal atelectasis -influenza sc neg Fever, improving Leukocytosis ,imrpoving Hx of lung cavitary lesion/ PNA- suspect likely to aspiration; lower suspicion for TB and/or fungal etiologies -06/08 CT chest: * Interval resolution of the cavitary component associated with the previously described anterior right upper lobe opacity. It is slightly decreased in size and more nodular in appearance on today's exam. Additional patchy opacities in the posterior right upper lobe are also slightly decreased in size and appear more nodular (previously were groundglass). Findings likely related to evolving infectious or inflammatory lesions however continued follow-up is recommended to assure resolution/exclude the possibility of neoplastic etiologies. -CT c/a/p: 10 mm opacity in the peripheral anterolateral right upper lobe with small central cavitation. Patchy groundglass opacity in the posterior right upper lobe. Suspect that these represent inflammatory/infectious lesions, but neoplastic etiology of either is certainly possible. Large left and moderate right pleural effusions. Resultant compressive atelectasis of portions of the lower lobes. 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 Hypertension. Multiple decubiti ulcers (elbow, sacral) -not infected Bipolar disorder. Coronary artery disease. Plan: -Continue empiric Zosyn #2 (abx d #3) pending GNR ID in bcx -Continue empiric Daptomycin #2 pending ID GPC in bcx -monitor CPK -Continue PO Vancomycin #2 for Cdiff -08/15 SP Tamiflu #2, Ceftriaxone #2 -08/14 SP Cefepime and LEvaquin x1 -Cont INH for latent TB -monitor LFTs -f/u Repeat Bcx x2, ucx -f/u cx -Monitor CBC/CMP, temperatures -wound care -aspiration precautions -Sx f/u Thank you for this consultation. Will continue to follow along with you. Discussed with RN. Subjective Allergies: Coded Allergies: MILK (Verified Allergy, Unknown, 02/02/18) Subjective afebrile >48hrs WBC overall improved repeat Bcx p Objective Vital Signs Last 24 Hour Vital Signs Date Time Temp Pulse Resp B/P (MAP) Pulse Ox O2 Delivery O2 Flow Rate FiO2 08/16/18 09:20 103 117/78 08/16/18 09:00 Nasal Cannula 2.0 08/16/18 08:00 99.1 103 20 117/78 (91) 100 08/16/18 07:32 91 08/16/18 04:00 85 08/16/18 04:00 98.2 70 20 106/68 (81) 97 08/16/18 00:00 98.0 64 20 109/63 (78) 97 08/16/18 00:00 72 08/15/18 21:27 99 114/50 08/15/18 21:00 Nasal Cannula 2.0 08/15/18 20:00 99.0 92 20 114/50 (71) 99 08/15/18 20:00 99 08/15/18 16:49 99.3 92 20 105/71 (82) 95 08/15/18 16:00 109 08/15/18 12:00 99.0 93 20 133/75 (94) 99 08/15/18 12:00 93 Height (Feet): 6 Height (Inches): 0.40 Weight (Pounds): 150 Objective General appearance: alert, cooperative, no distress, appears stated age Head: Normocephalic, without obvious abnormality, atraumatic Eyes: conjunctivae/corneas clear. PERRL, EOM's intact. Fundi benign Throat: Lips, mucosa, and tongue normal. Teeth and gums normal Neck: supple, symmetrical, trachea midline, no adenopathy, thyroid: not enlarged, symmetric, no tenderness/mass/nodules, no carotid bruit and no JVD Lungs: clear to auscultation bilaterally Heart: regular rate and rhythm, S1, S2 normal, no murmur, click, rub or gallop Abdomen: soft, non-tender. Bowel sounds normal. No masses, no organomegaly Extremities: extremities normal, atraumatic, no cyanosis or edema/ s/p bilateral aka Pulses: 2+ and symmetric Skin: Skin color, texture, turgor normal. No rashes or lesions. multiple large decubitus ulcers. Neurologic: Grossly normal Microbiology Date/Time Source Procedure Growth Status 08/14/18 01:00 Blood Blood Culture - Preliminary Gram Negative Bacillus 1 Resulted 08/14/18 00:45 Blood Blood Culture - Preliminary Gram Negative Bacillus 1 Resulted 08/14/18 17:50 Nasopharynx Influenza Types A,B Antigen (KHALIF) - Final Complete 08/14/18 02:30 Nose MRSA Culture - Final Staphylococcus Aureus - Mrsa Complete 08/14/18 17:50 Stool Clostridium difficile Toxin Assay - Final Complete 08/14/18 02:30 Rectum - Final NO CARBAPENEM-RESISTANT ENTEROBACTERI... Complete 08/14/18 02:30 Rectum Received Laboratory Tests Test 08/16/18 09:30 White Blood Count 14.6 K/UL (4.8-10.8) H Red Blood Count 2.90 M/UL (4.70-6.10) L Hemoglobin 8.8 G/DL (14.2-18.0) L Hematocrit 29.4 % (42.0-52.0) L Mean Corpuscular Volume 101 FL (80-99) H Mean Corpuscular Hemoglobin 30.4 PG (27.0-31.0) Mean Corpuscular Hemoglobin Concent 30.0 G/DL (32.0-36.0) L Red Cell Distribution Width 15.5 % (11.6-14.8) H Platelet Count 193 K/UL (150-450) Mean Platelet Volume 5.2 FL (6.5-10.1) L Neutrophils (%) (Auto) 77.0 % (45.0-75.0) H Lymphocytes (%) (Auto) 14.6 % (20.0-45.0) L Monocytes (%) (Auto) 7.3 % (1.0-10.0) Eosinophils (%) (Auto) 0.2 % (0.0-3.0) Basophils (%) (Auto) 0.9 % (0.0-2.0) Prothrombin Time 14.2 SEC (9.30-11.50) H Prothromb Time International Ratio 1.4 (0.9-1.1) H Activated Partial Thromboplast Time 39 SEC (23-33) H Sodium Level 149 MMOL/L (136-145) H Potassium Level 3.1 MMOL/L (3.5-5.1) L Chloride Level 118 MMOL/L (98-107) H Carbon Dioxide Level 23 MMOL/L (21-32) Anion Gap 8 mmol/L (5-15) Blood Urea Nitrogen 20 mg/dL (7-18) H Creatinine 0.6 MG/DL (0.55-1.30) Estimat Glomerular Filtration Rate > 60 mL/min (>60) Glucose Level 101 MG/DL (74-106) Calcium Level 7.0 MG/DL (8.5-10.1) L Phosphorus Level 2.7 MG/DL (2.5-4.9) Magnesium Level 2.2 MG/DL (1.8-2.4) Total Bilirubin 0.6 MG/DL (0.2-1.0) Aspartate Amino Transf (AST/SGOT) 17 U/L (15-37) Alanine Aminotransferase (ALT/SGPT) < 6 U/L (12-78) L Alkaline Phosphatase 96 U/L (46-116) Total Creatine Kinase 121 U/L (26-308) Total Protein 5.0 G/DL (6.4-8.2) L Albumin 1.1 G/DL (3.4-5.0) L Globulin 3.9 g/dL Albumin/Globulin Ratio 0.3 (1.0-2.7) L Current Medications Medications (Trade) Dose Ordered Sig/Erlin Route PRN Reason Start Time Stop Time Status Last Admin Dose Admin Acetaminophen (Tylenol) 650 mg Q4H PRN ORAL Mild Pain (Pain Scale 1-3) 08/14/18 06:45 09/13/18 06:44 Acetaminophen (Tylenol) 650 mg Q6H PRN ORAL Mild Pain/Temp > 100.5 08/14/18 09:00 09/13/18 08:59 Acetaminophen/ Hydrocodone Bitart ([place] 5/325) 1 tab Q4H PRN ORAL For Pain 08/14/18 06:45 08/21/18 06:44 Apixaban (Eliquis) 2.5 mg Q12HR ORAL 08/14/18 09:00 09/13/18 08:59 08/16/18 09:21 Aripiprazole (Abilify) 5 mg BID ORAL 08/14/18 09:00 09/13/18 08:59 08/16/18 09:21 Daptomycin 400 mg/ Sodium Chloride 55 ml @ 110 mls/hr Q24H IV 08/15/18 18:00 08/22/18 17:59 08/15/18 17:49 Docusate Sodium (Colace) 100 mg DAILYPRN PRN ORAL Constipation 08/14/18 06:45 09/13/18 06:44 Gabapentin (Neurontin) 100 mg THREE TIMES A DAY ORAL 08/14/18 13:00 09/13/18 12:59 08/16/18 09:20 Isoniazid (Inh) 300 mg DAILY ORAL 08/14/18 09:00 09/13/18 08:59 08/16/18 09:20 Magnesium Hydroxide (Mom) 30 ml BEDTIME ORAL 08/14/18 21:00 09/13/18 20:59 08/15/18 21:37 Metoprolol Tartrate (Lopressor) 50 mg Q12HR ORAL 08/14/18 09:00 09/13/18 08:59 08/16/18 09:20 Midodrine (Pro-Amatine) 5 mg THREE TIMES A DAY ORAL 08/14/18 09:00 09/13/18 08:59 08/16/18 09:20 Pantoprazole (Protonix) 40 mg DAILY ORAL 08/14/18 09:00 09/13/18 08:59 08/16/18 09:20 Piperacillin Sod/ Tazobactam Sod 3.375 gm/Dextrose 110 ml @ 27.5 mls/hr EVERY 8 HOURS IVPB 08/15/18 14:00 08/20/18 13:59 08/16/18 06:02 Pyridoxine HCl (Vitamin B6) 50 mg DAILY ORAL 08/14/18 09:00 09/13/18 08:59 08/16/18 09:20 Sodium Hypochlorite (Dakin's Quarter Strength) 1 applic DAILY TOPIC 08/14/18 16:00 09/13/18 15:59 08/16/18 09:39 Vancomycin HCl (Firvanq) 250 mg FOUR TIMES A DAY ORAL 08/15/18 13:00 08/22/18 12:59 08/16/18 09:21 Vitamin B Complex/ Vit C/Folic Acid (Nephrovite) 1 tab DAILY ORAL 08/14/18 09:00 09/13/18 08:59 08/16/18 09:21 Zinc Sulfate (Zinc Sulfate) 220 mg DAILY ORAL 08/14/18 09:00 09/13/18 08:59 08/16/18 09:20 Alma Elkins M.D. Aug 16, 2018 11:09
[2018-08-16 12:00] VITALS: BP 105/58
--- NOTE | 2018-08-16 12:48 | Internal Med Progress Note ---
Subjective Date of Service: Aug 16, 2018 Physician Name Daniel Jackson Attending Physician Pedro Caban MD Current Medications Medications (Trade) Dose Ordered Sig/Erlin Route PRN Reason Start Time Stop Time Status Last Admin Dose Admin Acetaminophen (Tylenol) 650 mg Q4H PRN ORAL Mild Pain (Pain Scale 1-3) 08/14/18 06:45 09/13/18 06:44 Acetaminophen (Tylenol) 650 mg Q6H PRN ORAL Mild Pain/Temp > 100.5 08/14/18 09:00 09/13/18 08:59 Acetaminophen/ Hydrocodone Bitart ([place] 5/325) 1 tab Q4H PRN ORAL For Pain 08/14/18 06:45 08/21/18 06:44 Apixaban (Eliquis) 2.5 mg Q12HR ORAL 08/14/18 09:00 09/13/18 08:59 08/16/18 09:21 Aripiprazole (Abilify) 5 mg BID ORAL 08/14/18 09:00 09/13/18 08:59 08/16/18 09:21 Daptomycin 400 mg/ Sodium Chloride 55 ml @ 110 mls/hr Q24H IV 08/15/18 18:00 08/22/18 17:59 08/15/18 17:49 Docusate Sodium (Colace) 100 mg DAILYPRN PRN ORAL Constipation 08/14/18 06:45 09/13/18 06:44 Gabapentin (Neurontin) 100 mg THREE TIMES A DAY ORAL 08/14/18 13:00 09/13/18 12:59 08/16/18 09:20 Isoniazid (Inh) 300 mg DAILY ORAL 08/14/18 09:00 09/13/18 08:59 08/16/18 09:20 Magnesium Hydroxide (Mom) 30 ml BEDTIME ORAL 08/14/18 21:00 09/13/18 20:59 08/15/18 21:37 Metoprolol Tartrate (Lopressor) 50 mg Q12HR ORAL 08/14/18 09:00 09/13/18 08:59 08/16/18 09:20 Midodrine (Pro-Amatine) 5 mg THREE TIMES A DAY ORAL 08/14/18 09:00 09/13/18 08:59 08/16/18 09:20 Pantoprazole (Protonix) 40 mg DAILY ORAL 08/14/18 09:00 09/13/18 08:59 08/16/18 09:20 Piperacillin Sod/ Tazobactam Sod 3.375 gm/Dextrose 110 ml @ 27.5 mls/hr EVERY 8 HOURS IVPB 08/15/18 14:00 08/20/18 13:59 08/16/18 06:02 Pyridoxine HCl (Vitamin B6) 50 mg DAILY ORAL 08/14/18 09:00 09/13/18 08:59 08/16/18 09:20 Sodium Hypochlorite (Dakin's Quarter Strength) 1 applic DAILY TOPIC 08/14/18 16:00 09/13/18 15:59 08/16/18 09:39 Vancomycin HCl (Firvanq) 250 mg FOUR TIMES A DAY ORAL 08/15/18 13:00 08/22/18 12:59 08/16/18 09:21 Vitamin B Complex/ Vit C/Folic Acid (Nephrovite) 1 tab DAILY ORAL 08/14/18 09:00 09/13/18 08:59 08/16/18 09:21 Zinc Sulfate (Zinc Sulfate) 220 mg DAILY ORAL 08/14/18 09:00 09/13/18 08:59 08/16/18 09:20 Allergies: Coded Allergies: MILK (Verified Allergy, Unknown, 02/02/18) ROS Limited/Unobtainable: Yes Subjective 68 YO M admitted with fever and leukocytosis. Now Sepsis and C. Difficile colitis/diarrhea. Cover for Int Med-Dr Caban. Objective Last Vital Signs Date Time Temp Pulse Resp B/P (MAP) Pulse Ox O2 Delivery O2 Flow Rate FiO2 08/16/18 12:00 99.7 80 18 105/58 (74) 99 08/16/18 09:00 Nasal Cannula 2.0 Laboratory Tests Test 08/16/18 09:30 White Blood Count 14.6 K/UL (4.8-10.8) H Red Blood Count 2.90 M/UL (4.70-6.10) L Hemoglobin 8.8 G/DL (14.2-18.0) L Hematocrit 29.4 % (42.0-52.0) L Mean Corpuscular Volume 101 FL (80-99) H Mean Corpuscular Hemoglobin 30.4 PG (27.0-31.0) Mean Corpuscular Hemoglobin Concent 30.0 G/DL (32.0-36.0) L Red Cell Distribution Width 15.5 % (11.6-14.8) H Platelet Count 193 K/UL (150-450) Mean Platelet Volume 5.2 FL (6.5-10.1) L Neutrophils (%) (Auto) 77.0 % (45.0-75.0) H Lymphocytes (%) (Auto) 14.6 % (20.0-45.0) L Monocytes (%) (Auto) 7.3 % (1.0-10.0) Eosinophils (%) (Auto) 0.2 % (0.0-3.0) Basophils (%) (Auto) 0.9 % (0.0-2.0) Prothrombin Time 14.2 SEC (9.30-11.50) H Prothromb Time International Ratio 1.4 (0.9-1.1) H Activated Partial Thromboplast Time 39 SEC (23-33) H Sodium Level 149 MMOL/L (136-145) H Potassium Level 3.1 MMOL/L (3.5-5.1) L Chloride Level 118 MMOL/L (98-107) H Carbon Dioxide Level 23 MMOL/L (21-32) Anion Gap 8 mmol/L (5-15) Blood Urea Nitrogen 20 mg/dL (7-18) H Creatinine 0.6 MG/DL (0.55-1.30) Estimat Glomerular Filtration Rate > 60 mL/min (>60) Glucose Level 101 MG/DL (74-106) Calcium Level 7.0 MG/DL (8.5-10.1) L Phosphorus Level 2.7 MG/DL (2.5-4.9) Magnesium Level 2.2 MG/DL (1.8-2.4) Total Bilirubin 0.6 MG/DL (0.2-1.0) Aspartate Amino Transf (AST/SGOT) 17 U/L (15-37) Alanine Aminotransferase (ALT/SGPT) < 6 U/L (12-78) L Alkaline Phosphatase 96 U/L (46-116) Total Creatine Kinase 121 U/L (26-308) Total Protein 5.0 G/DL (6.4-8.2) L Albumin 1.1 G/DL (3.4-5.0) L Globulin 3.9 g/dL Albumin/Globulin Ratio 0.3 (1.0-2.7) L Microbiology Date/Time Source Procedure Growth Status 08/14/18 01:00 Blood Blood Culture - Preliminary Gram Negative Bacillus 1 Resulted 08/14/18 00:45 Blood Blood Culture - Preliminary Gram Negative Bacillus 1 Resulted 08/14/18 17:50 Nasopharynx Influenza Types A,B Antigen (KHALIF) - Final Complete 08/14/18 02:30 Nose MRSA Culture - Final Staphylococcus Aureus - Mrsa Complete 08/14/18 17:50 Stool Clostridium difficile Toxin Assay - Final Complete 08/14/18 02:30 Rectum - Final NO CARBAPENEM-RESISTANT ENTEROBACTERI... Complete 08/14/18 02:30 Rectum VRE Culture - Final Enterococcus Faecalis - Vre Enterococcus Faecium - Vre Complete Intake and Output 08/15/18 08/16/18 19:00 07:00 Intake Total 120 ml 124.7 ml Balance 120 ml 124.7 ml Intake Oral 120 ml IV Total 124.7 ml # Voids 2 # Bowel Movements 2 3 Objective General Appearance: WD/WN, no apparent distress, lethargic EENT: PERRL/EOMI, normal ENT inspection Neck: non-tender, normal alignment, supple, normal inspection Cardiovascular: normal peripheral pulses, normal rate, regular rhythm, no gallop/murmur, no JVD Respiratory/Chest: chest wall non-tender, lungs clear, normal breath sounds, no respiratory distress, no accessory muscle use Abdomen: normal bowel sounds, non tender, soft, no organomegaly, no mass Extremities: normal range of motion, non-tender Neurologic: counselor/art therapist II-XII grossly normal Skin: normal pigmentation, warm/dry Assessment/Plan Problem List: (1) Hypercholesterolemia (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 Await ID and sensitivity. Continue zosyn, vanco and daptomycin per ID. (10) CVA (cerebral vascular accident) (11) Acute metabolic encephalopathy (12) HTN (hypertension) (13) CAD (coronary artery disease) (14) Atrial fibrillation Assessment & Plan: Continue eliquis Status: not improved Daniel Jackson MD Aug 16, 2018 12:48
--- NOTE | 2018-08-16 12:50 | Pulmonology Progress Note ---
Assessment/Plan Problems: (1) Acute metabolic encephalopathy (2) Sepsis (3) Decubitus skin ulcer (4) UTI (urinary tract infection) (5) Anemia (6) CVA (cerebral vascular accident) Assessment/Plan telemetry records reviewed, still tachy with PAC's and PVC's check cultures iv abx iv fluids check electrolytes wound care surgery consult called, pts daughter agreed with debridement continue current meds. dvt prophylaxis. Subjective Constitutional: Reports: no symptoms HEENT: Repors: no symptoms Respiratory: Reports: no symptoms Allergies: Coded Allergies: MILK (Verified Allergy, Unknown, 02/02/18) Objective Last 24 Hour Vital Signs Date Time Temp Pulse Resp B/P (MAP) Pulse Ox O2 Delivery O2 Flow Rate FiO2 08/16/18 12:00 99.7 80 18 105/58 (74) 99 08/16/18 11:43 83 08/16/18 09:20 103 117/78 08/16/18 09:00 Nasal Cannula 2.0 08/16/18 08:00 99.1 103 20 117/78 (91) 100 08/16/18 07:32 91 08/16/18 04:00 85 08/16/18 04:00 98.2 70 20 106/68 (81) 97 08/16/18 00:00 98.0 64 20 109/63 (78) 97 08/16/18 00:00 72 08/15/18 21:27 99 114/50 08/15/18 21:00 Nasal Cannula 2.0 08/15/18 20:00 99.0 92 20 114/50 (71) 99 08/15/18 20:00 99 08/15/18 16:49 99.3 92 20 105/71 (82) 95 08/15/18 16:00 109 Intake and Output 08/15/18 08/16/18 19:00 07:00 Intake Total 120 ml 124.7 ml Balance 120 ml 124.7 ml Intake Oral 120 ml IV Total 124.7 ml # Voids 2 # Bowel Movements 2 3 General Appearance: WD/WN HEENT: normocephalic Respiratory/Chest: chest wall non-tender, lungs clear Cardiovascular: normal peripheral pulses, regularly irregular Abdomen: soft, non tender Skin: no rash Microbiology Date/Time Source Procedure Growth Status 08/14/18 01:00 Blood Blood Culture - Preliminary Gram Negative Bacillus 1 Resulted 08/14/18 00:45 Blood Blood Culture - Preliminary Gram Negative Bacillus 1 Resulted 08/14/18 17:50 Nasopharynx Influenza Types A,B Antigen (KHALIF) - Final Complete 08/14/18 02:30 Nose MRSA Culture - Final Staphylococcus Aureus - Mrsa Complete 08/14/18 17:50 Stool Clostridium difficile Toxin Assay - Final Complete 08/14/18 02:30 Rectum - Final NO CARBAPENEM-RESISTANT ENTEROBACTERI... Complete 08/14/18 02:30 Rectum VRE Culture - Final Enterococcus Faecalis - Vre Enterococcus Faecium - Vre Complete Laboratory Tests 08/16/18 09:30: White Blood Count 14.6H, Red Blood Count 2.90L, Hemoglobin 8.8L, Hematocrit 29.4L, Mean Corpuscular Volume 101H, Mean Corpuscular Hemoglobin 30.4, Mean Corpuscular Hemoglobin Concent 30.0L, Red Cell Distribution Width 15.5H, Platelet Count 193, Mean Platelet Volume 5.2L, Neutrophils (%) (Auto) 77.0H, Lymphocytes (%) (Auto) 14.6L, Monocytes (%) (Auto) 7.3, Eosinophils (%) (Auto) 0.2, Basophils (%) (Auto) 0.9, Prothrombin Time 14.2H, Prothromb Time International Ratio 1.4H, Activated Partial Thromboplast Time 39H, Sodium Level 149H, Potassium Level 3.1L, Chloride Level 118H, Carbon Dioxide Level 23, Anion Gap 8, Blood Urea Nitrogen 20H, Creatinine 0.6, Estimat Glomerular Filtration Rate > 60, Glucose Level 101, Calcium Level 7.0L, Phosphorus Level 2.7, Magnesium Level 2.2, Total Bilirubin 0.6, Aspartate Amino Transf (AST/SGOT) 17, Alanine Aminotransferase (ALT/SGPT) < 6L, Alkaline Phosphatase 96, Total Creatine Kinase 121, Total Protein 5.0L, Albumin 1.1L, Globulin 3.9, Albumin/ Globulin Ratio 0.3L Current Medications Medications (Trade) Dose Ordered Sig/Erlin Route PRN Reason Start Time Stop Time Status Last Admin Dose Admin Acetaminophen (Tylenol) 650 mg Q4H PRN ORAL Mild Pain (Pain Scale 1-3) 08/14/18 06:45 09/13/18 06:44 Acetaminophen (Tylenol) 650 mg Q6H PRN ORAL Mild Pain/Temp > 100.5 08/14/18 09:00 09/13/18 08:59 Acetaminophen/ Hydrocodone Bitart ([place] 5/325) 1 tab Q4H PRN ORAL For Pain 08/14/18 06:45 08/21/18 06:44 Apixaban (Eliquis) 2.5 mg Q12HR ORAL 08/14/18 09:00 09/13/18 08:59 08/16/18 09:21 Aripiprazole (Abilify) 5 mg BID ORAL 08/14/18 09:00 09/13/18 08:59 08/16/18 09:21 Daptomycin 400 mg/ Sodium Chloride 55 ml @ 110 mls/hr Q24H IV 08/15/18 18:00 08/22/18 17:59 08/15/18 17:49 Docusate Sodium (Colace) 100 mg DAILYPRN PRN ORAL Constipation 08/14/18 06:45 09/13/18 06:44 Gabapentin (Neurontin) 100 mg THREE TIMES A DAY ORAL 08/14/18 13:00 09/13/18 12:59 08/16/18 09:20 Isoniazid (Inh) 300 mg DAILY ORAL 08/14/18 09:00 09/13/18 08:59 08/16/18 09:20 Magnesium Hydroxide (Mom) 30 ml BEDTIME ORAL 08/14/18 21:00 09/13/18 20:59 08/15/18 21:37 Metoprolol Tartrate (Lopressor) 50 mg Q12HR ORAL 08/14/18 09:00 09/13/18 08:59 08/16/18 09:20 Midodrine (Pro-Amatine) 5 mg THREE TIMES A DAY ORAL 08/14/18 09:00 09/13/18 08:59 08/16/18 09:20 Pantoprazole (Protonix) 40 mg DAILY ORAL 08/14/18 09:00 09/13/18 08:59 08/16/18 09:20 Piperacillin Sod/ Tazobactam Sod 3.375 gm/Dextrose 110 ml @ 27.5 mls/hr EVERY 8 HOURS IVPB 08/15/18 14:00 08/20/18 13:59 08/16/18 06:02 Pyridoxine HCl (Vitamin B6) 50 mg DAILY ORAL 08/14/18 09:00 09/13/18 08:59 08/16/18 09:20 Sodium Hypochlorite (Dakin's Quarter Strength) 1 applic DAILY TOPIC 08/14/18 16:00 09/13/18 15:59 08/16/18 09:39 Vancomycin HCl (Firvanq) 250 mg FOUR TIMES A DAY ORAL 08/15/18 13:00 08/22/18 12:59 08/16/18 09:21 Vitamin B Complex/ Vit C/Folic Acid (Nephrovite) 1 tab DAILY ORAL 08/14/18 09:00 09/13/18 08:59 08/16/18 09:21 Zinc Sulfate (Zinc Sulfate) 220 mg DAILY ORAL 08/14/18 09:00 09/13/18 08:59 08/16/18 09:20 Minerva Montesinos MD Aug 16, 2018 12:50
[2018-08-16 16:00] VITALS: BP 106/73
[2018-08-16] MEDS: DAPTOmycin 400 MG in NS 55 ML IV SCH (17:29)
[2018-08-16 21:00] VITALS: BP 131/58
[2018-08-16] MEDS: Milk of Magnesia 30ml Ud ORAL SCH (21:52)
[2018-08-17] VITALS: BP 125/61
[2018-08-17 04:00] VITALS: BP 109/65
[2018-08-17] MEDS: Piperacillin/Tazobactam 3.375 GM in D5W 110 ML IVPB SCH ×2 (05:44→14:00)
[2018-08-17 08:00] VITALS: BP 119/75
[2018-08-17 08:45] LABS: HEMOGLOBIN 7.8 G/DL (14.2-18.0); MEAN CORPUSCULAR VOLUME 102 FL (80-99); PLATELET COUNT 160 K/UL (150-450); RED BLOOD COUNT 2.56 M/UL (4.70-6.10); RED CELL DISTRIBUTION WIDTH 15.2 % (11.6-14.8); WHITE BLOOD COUNT 12.3 K/UL (4.8-10.8)
[2018-08-17 08:54] LABS: ANION GAP 7 mmol/L (5-15); BLOOD UREA NITROGEN 18 mg/dL (7-18); CALCIUM 7.2 MG/DL (8.5-10.1); CARBON DIOXIDE 26 MMOL/L (21-32); CHLORIDE 120 MMOL/L (98-107); CREATININE 0.5 MG/DL (0.55-1.30); POTASSIUM 2.9 MMOL/L (3.5-5.1); SODIUM 153 MMOL/L (136-145)
--- NOTE | 2018-08-17 09:02 | Diagnostic Imaging Report ---
Indication: Nasogastric tube placement Technique: Supine view of the upper abdomen Comparison: none Findings: There is a nasogastric tube in place, tip projected level gastric fundus, proximal port at the level gastroesophageal junction. Bowel gas demonstrates nodular appearance of the colonic wall . Bilateral pulmonary parenchymal disease and left-sided pleural effusion are noted. Impression: High position of nasogastric tube. Advancement recommended. This agrees with the preliminary interpretation provided overnight by [facility] teleradiology service. Findings also discussed with patient's nurse at the time of interpretation Unusual nodular appearance to the colonic mucosa. Correlate with any clinical history of inflammatory bowel disease
--- NOTE | 2018-08-17 10:43 | Diagnostic Imaging Report ---
Indication: Post nasogastric tube repositioning Technique: Supine view of the abdomen Comparison: 08/16/2018 Findings: Interim advancement of previously malpositioned nasogastric tube. Markedly nodular appearance of the mucosa of the transverse colon is noted Impression: Satisfactory position of nasogastric tube. Patient's nurse notified at the time of interpretation Markedly abnormal appearing transverse colon mucosa. Per patient's nurse, patient has history of C. difficile colitis
[2018-08-17] MEDS ORDERED: HYDROcodone/Acetamin 5/325 tab NG PRN (10:45)
[2018-08-17] MEDS ORDERED: Acetaminophen 650mg/20.3ml NG PRN ×2 (11:00)
[2018-08-17] MEDS ORDERED: Docusate 100mg/10ml Liq NG PRN (11:00)
--- NOTE | 2018-08-17 11:12 | Pulmonology Progress Note ---
Assessment/Plan Problems: (1) Acute metabolic encephalopathy (2) Sepsis (3) Decubitus skin ulcer (4) UTI (urinary tract infection) (5) Anemia (6) CVA (cerebral vascular accident) Assessment/Plan debridement on Tuesday failed swallow study on NG tube telemetry records reviewed, still tachy with PAC's and PVC's check cultures iv abx iv fluids check electrolytes wound care surgery consult called, pts daughter agreed with debridement continue current meds. dvt prophylaxis. Subjective ROS Limited/Unobtainable: No Constitutional: Reports: no symptoms Respiratory: Reports: no symptoms Allergies: Coded Allergies: MILK (Verified Allergy, Unknown, 02/02/18) Objective Last 24 Hour Vital Signs Date Time Temp Pulse Resp B/P (MAP) Pulse Ox O2 Delivery O2 Flow Rate FiO2 08/17/18 09:00 79 08/17/18 08:17 Nasal Cannula 2.0 28 08/17/18 08:17 96 Nasal Cannula 2.0 28 08/17/18 08:00 99.5 85 22 119/75 (90) 97 08/17/18 04:00 79 08/17/18 04:00 98.3 83 17 109/65 (80) 97 08/17/18 00:00 89 08/17/18 00:00 97.8 89 18 125/61 (82) 97 08/16/18 21:53 88 131/58 08/16/18 21:00 77 08/16/18 21:00 Nasal Cannula 2.0 08/16/18 21:00 98.6 88 16 131/58 (82) 98 08/16/18 16:00 82 08/16/18 16:00 98.2 87 20 106/73 (84) 98 08/16/18 12:00 99.7 80 18 105/58 (74) 99 08/16/18 11:43 83 Intake and Output 08/16/18 08/17/18 19:00 07:00 Intake Total 144.8 ml Balance 144.8 ml IV Total 144.8 ml # Voids 3 3 # Bowel Movements 1 1 General Appearance: cachetic HEENT: normocephalic, atraumatic Respiratory/Chest: chest wall non-tender, lungs clear Cardiovascular: normal peripheral pulses, normal rate Abdomen: normal bowel sounds, soft, non tender, no organomegaly 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: progress developer II-XII grossly normal Microbiology Date/Time Source Procedure Growth Status 08/15/18 17:30 Blood Blood Culture - Preliminary Gram Negative Joey Resulted 08/15/18 17:15 Blood Blood Culture - Preliminary Gram Negative Joey Resulted 08/15/18 07:30 Nasal Nares MRSA Culture - Final NO METHICILLIN RESISTANT STAPH AUREUS... Complete 08/14/18 17:50 Nasopharynx Influenza Types A,B Antigen (KHALIF) - Final Complete 08/14/18 17:50 Stool Clostridium difficile Toxin Assay - Final Complete 08/15/18 07:30 Rectum - Final NO CARBAPENEM-RESISTANT ENTEROBACTERI... Complete 08/15/18 07:30 Rectum VRE Culture - Final NO VANCOMYCIN RESISTANT ENTEROCOCCUS ... Complete Laboratory Tests 08/17/18 08:15: White Blood Count 12.3H, Red Blood Count 2.56L, Hemoglobin 7.8L, Hematocrit 26.0L, Mean Corpuscular Volume 102H, Mean Corpuscular Hemoglobin 30.5, Mean Corpuscular Hemoglobin Concent 30.0L, Red Cell Distribution Width 15.2H, Platelet Count 160, Mean Platelet Volume 5.0L, Neutrophils (%) (Auto) , Lymphocytes (%) (Auto) , Monocytes (%) (Auto) , Eosinophils (%) (Auto) , Basophils (%) (Auto) , Neutrophils % (Manual) [Pending], Lymphocytes % (Manual) [Pending], Platelet Estimate [Pending], Platelet Morphology [Pending], Sodium Level 153H, Potassium Level 2.9L, Chloride Level 120H, Carbon Dioxide Level 26, Anion Gap 7, Blood Urea Nitrogen 18, Creatinine 0.5L, Estimat Glomerular Filtration Rate > 60, Glucose Level 84, Calcium Level 7.2L Current Medications Medications (Trade) Dose Ordered Sig/Erlin Route PRN Reason Start Time Stop Time Status Last Admin Dose Admin Acetaminophen (Tylenol) 650 mg Q4H PRN NG Mild Pain (Pain Scale 1-3) 08/17/18 11:00 09/13/18 06:44 Acetaminophen (Tylenol) 650 mg Q6H PRN NG Temp > 100.5 08/17/18 11:00 09/13/18 08:59 Acetaminophen/ Hydrocodone Bitart ([place] 5/325) 1 tab Q4H PRN NG For Pain 08/17/18 10:45 08/21/18 06:44 Apixaban (Eliquis) 2.5 mg Q12HR NG 08/17/18 21:00 09/13/18 08:59 Aripiprazole (Abilify) 5 mg BID ORAL 08/14/18 09:00 09/13/18 08:59 08/16/18 09:21 Daptomycin 400 mg/ Sodium Chloride 55 ml @ 110 mls/hr Q24H IV 08/15/18 18:00 08/22/18 17:59 08/16/18 17:29 Dextrose/ Electrolytes 1,000 ml @ 75 mls/hr [id number] IV 08/17/18 11:30 09/16/18 11:29 Docusate Sodium (Colace) 100 mg DAILYPRN PRN NG Constipation 08/17/18 11:00 09/13/18 06:44 Gabapentin (Neurontin) 100 mg THREE TIMES A DAY NG 08/17/18 13:00 09/13/18 12:59 Isoniazid (Inh) 300 mg DAILY NG 08/18/18 09:00 09/13/18 08:59 Lansoprazole (Prevacid) 30 mg DAILY NG 08/18/18 09:00 09/17/18 08:59 Magnesium Hydroxide (Mom) 30 ml BEDTIME NG 08/17/18 21:00 09/13/18 20:59 Metoprolol Tartrate (Lopressor) 50 mg Q12HR NG 08/17/18 21:00 09/13/18 08:59 Midodrine (Pro-Amatine) 5 mg THREE TIMES A DAY NG 08/17/18 13:00 09/13/18 08:59 Piperacillin Sod/ Tazobactam Sod 3.375 gm/Dextrose 110 ml @ 27.5 mls/hr EVERY 8 HOURS IVPB 08/15/18 14:00 08/20/18 13:59 08/17/18 05:44 Pyridoxine HCl (Vitamin B6) 50 mg DAILY NG 08/18/18 09:00 09/13/18 08:59 Sodium Hypochlorite (Dakin's Quarter Strength) 1 applic DAILY TOPIC 08/14/18 16:00 09/13/18 15:59 08/16/18 09:39 Vancomycin HCl (Firvanq) 250 mg FOUR TIMES A DAY NG 08/17/18 13:00 08/22/18 12:59 Vitamin B Complex/ Vit C/Folic Acid (Nephrovite) 1 tab DAILY NG 08/18/18 09:00 09/13/18 08:59 Zinc Sulfate (Zinc Sulfate) 220 mg DAILY NG 08/18/18 09:00 09/13/18 08:59 Minerva Montesinos MD Aug 17, 2018 11:12
[2018-08-17] MEDS: Dakin's 0.125% Soln (Quarter Strength) 16oz TOPIC SCH (11:29)
[2018-08-17] MEDS: D5W w/KCl 20mEq 1,000 ML IV SCH (11:31)
[2018-08-17 12:00] VITALS: BP 105/61
--- NOTE | 2018-08-17 13:16 | Surgery Progress Note ---
Surgery Progress Note Subjective Additional Comments no acute events. doing well Objective Last 24 Hour Vital Signs Date Time Temp Pulse Resp B/P (MAP) Pulse Ox O2 Delivery O2 Flow Rate FiO2 08/17/18 09:00 Nasal Cannula 2.0 08/17/18 09:00 79 08/17/18 08:17 Nasal Cannula 2.0 28 08/17/18 08:17 96 Nasal Cannula 2.0 28 08/17/18 08:00 99.5 85 22 119/75 (90) 97 08/17/18 04:00 79 08/17/18 04:00 98.3 83 17 109/65 (80) 97 08/17/18 00:00 89 08/17/18 00:00 97.8 89 18 125/61 (82) 97 08/16/18 21:53 88 131/58 08/16/18 21:00 77 08/16/18 21:00 Nasal Cannula 2.0 08/16/18 21:00 98.6 88 16 131/58 (82) 98 08/16/18 16:00 82 08/16/18 16:00 98.2 87 20 106/73 (84) 98 I&O Intake and Output 08/16/18 08/17/18 19:00 07:00 Intake Total 144.8 ml Balance 144.8 ml IV Total 144.8 ml # Voids 3 3 # Bowel Movements 1 1 Dressing: saturated Wound: other Drains: other Cardiovascular: RSR Respiratory: clear Abdomen: soft, non-tender, non-distended Extremities: other Laboratory Tests Test 08/17/18 08:15 White Blood Count 12.3 K/UL (4.8-10.8) H Red Blood Count 2.56 M/UL (4.70-6.10) L Hemoglobin 7.8 G/DL (14.2-18.0) L Hematocrit 26.0 % (42.0-52.0) L Mean Corpuscular Volume 102 FL (80-99) H Mean Corpuscular Hemoglobin 30.5 PG (27.0-31.0) Mean Corpuscular Hemoglobin Concent 30.0 G/DL (32.0-36.0) L Red Cell Distribution Width 15.2 % (11.6-14.8) H Platelet Count 160 K/UL (150-450) Mean Platelet Volume 5.0 FL (6.5-10.1) L Neutrophils (%) (Auto) % (45.0-75.0) Lymphocytes (%) (Auto) % (20.0-45.0) Monocytes (%) (Auto) % (1.0-10.0) Eosinophils (%) (Auto) % (0.0-3.0) Basophils (%) (Auto) % (0.0-2.0) Differential Total Cells Counted 100 Neutrophils % (Manual) 79 % (45-75) H Lymphocytes % (Manual) 16 % (20-45) L Monocytes % (Manual) 5 % (1-10) Eosinophils % (Manual) 0 % (0-3) Basophils % (Manual) 0 % (0-2) Band Neutrophils 0 % (0-8) Platelet Estimate Adequate Platelet Morphology Normal Polychromasia 1+ Hypochromasia 2+ Anisocytosis 1+ Macrocytosis 2+ Target Cells Rare Tear Drop Cells Rare Stomatocytes Sodium Level 153 MMOL/L (136-145) H Potassium Level 2.9 MMOL/L (3.5-5.1) L Chloride Level 120 MMOL/L (98-107) H Carbon Dioxide Level 26 MMOL/L (21-32) Anion Gap 7 mmol/L (5-15) Blood Urea Nitrogen 18 mg/dL (7-18) Creatinine 0.5 MG/DL (0.55-1.30) L Estimat Glomerular Filtration Rate > 60 mL/min (>60) Glucose Level 84 MG/DL (74-106) Calcium Level 7.2 MG/DL (8.5-10.1) L Plan Problems: (1) Sepsis Assessment & Plan: IV abx trend labs will monitor wounds possible debridement spoke with daughter. consent obtained. will plan for soon (2) Decubitus skin ulcer Assessment & Plan: Pt presented on admission with multiple full thickness pressure injuries. Full thickness pressure injury to L elbow.Base of wound wound with 25% fibrinous slough,75% pink granulation noted.(+) maceration along borders. erythema without elevation in skin temp periwound(L)1.5cm x (W)1.8cm x(D)0.3cm. Full thickness pressure injury R trochanter .Base of wound with pink granulation.Edges adherent to base of wound .No odor or exudate noted.Darker skin tone without induration periwound. (L)4.5cm x (W)6.3cm x (D) 3cm.Undermining 12-3 by 3cm @12o'clock. Full thickness pressure injury to R ischium .Wound is malodorous.90% soft necrosis,10% pink noted at base of wound ,(+) epibole along edges .Periwound darker in skin tone and is indurated.(L)8.4cm x (W)4.3cm (D)2.5cm .Tunneling at 1o'clock by 3.6cm ,tunneling @5o'clock by 6.3cm. Full thickness sacral pressure injury with 80% soft necrosis ,20% pink granulation .Wound is malodorous with small amt brown exudate (L)8.5cm x (W)5cm x (D)2.5cm ,undermining 8-5 by 4.7cm @1o'clock. Tx.Plan: Cleanse R trochanter with Dakin's 0.125% candelaria. Loosely pack with Dakin's soaked kerlix .Cover with Optifoam drsg TID and prn. Cleanse R Ischial wound with Dakin's 0.125% candelaria.Loosely pack with Dakin's soaked kerlix. Cavilon Skin Barrier periwound. Cover with Optifoam drsg TID and prn. Cleanse Sacral wound with dakin's 0.125% candelaria.Loosely pack with Dakin's soaked kerlix.Cavilon Skin Barrier periwound.Cover with Optifoam drsg TID and prn. Cleanse L elbow with Dakin's 0.125% candelaria. Apply Dakin's moist 2x2 gauze. Cover with Optifoam drsg TID and prn. Quartet Air fluidized mattress. Reposition L side to back at least every 2hours or as tolerated. Goyo Osuna Aug 17, 2018 13:16
--- NOTE | 2018-08-17 15:26 | Infectious Diseases Prog Note ---
Assessment/Plan Assessment/Plan Assessment: Sepsis-2ry to bacteremia (likley from GI translocation) and Cdiff -Cdif toxin a/b + -Bcx / GNR, 08/21 ESBL Proteus mirabilis (S Ertapenem, Zosyn), / Group C strep ; 08/15 Bcx 07/24 GNR -u/a no pyuria -CXR: Suspect a small left pleural effusion. Mild basal atelectasis -influenza sc neg Fever,SP Leukocytosis ,imrpoving Hx of lung cavitary lesion/ PNA- suspect likely to aspiration; lower suspicion for TB and/or fungal etiologies -06/08 CT chest: * Interval resolution of the cavitary component associated with the previously described anterior right upper lobe opacity. It is slightly decreased in size and more nodular in appearance on today's exam. Additional patchy opacities in the posterior right upper lobe are also slightly decreased in size and appear more nodular (previously were groundglass). Findings likely related to evolving infectious or inflammatory lesions however continued follow-up is recommended to assure resolution/exclude the possibility of neoplastic etiologies. -CT c/a/p: 10 mm opacity in the peripheral anterolateral right upper lobe with small central cavitation. Patchy groundglass opacity in the posterior right upper lobe. Suspect that these represent inflammatory/infectious lesions, but neoplastic etiology of either is certainly possible. Large left and moderate right pleural effusions. Resultant compressive atelectasis of portions of the lower lobes. 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 Hypertension. Multiple decubiti ulcers (elbow, sacral) -not infected Bipolar disorder. Coronary artery disease. VRE and MRSA colonized Plan: -Switch empiric Zosyn #3 (abx d #4) to Meropenem given ESBL bacteremia -D/c empiric Daptomycin #3 -monitor CPK -Continue PO Vancomycin #3/-14 for Cdiff -08/15 SP Tamiflu #2, Ceftriaxone #2 -08/14 SP Cefepime and LEvaquin x1 -Repeat 2 sets of Bcx -Low threshold for CT abd/p w/ if fever, Increasing WBC and persistent GNR bacteremia -Cont INH for latent TB -monitor LFTs -f/u Repeat Bcx x2, ucx -f/u cx -Monitor CBC/CMP, temperatures -wound care -aspiration precautions -Sx f/u Thank you for this consultation. Will continue to follow along with you. Discussed with RN. Subjective Allergies: Coded Allergies: MILK (Verified Allergy, Unknown, 02/02/18) Subjective afebrile >72 hrs WBC improving repeat Bcx GNR Objective Vital Signs Last 24 Hour Vital Signs Date Time Temp Pulse Resp B/P (MAP) Pulse Ox O2 Delivery O2 Flow Rate FiO2 08/17/18 12:00 98.6 89 24 105/61 (76) 95 08/17/18 09:00 Nasal Cannula 2.0 08/17/18 09:00 79 08/17/18 08:17 Nasal Cannula 2.0 28 08/17/18 08:17 96 Nasal Cannula 2.0 28 08/17/18 08:00 99.5 85 22 119/75 (90) 97 08/17/18 04:00 79 08/17/18 04:00 98.3 83 17 109/65 (80) 97 08/17/18 00:00 89 08/17/18 00:00 97.8 89 18 125/61 (82) 97 08/16/18 21:53 88 131/58 08/16/18 21:00 77 08/16/18 21:00 Nasal Cannula 2.0 08/16/18 21:00 98.6 88 16 131/58 (82) 98 08/16/18 16:00 82 08/16/18 16:00 98.2 87 20 106/73 (84) 98 Height (Feet): 6 Height (Inches): 0.40 Weight (Pounds): 150 Objective General appearance: alert, cooperative, no distress, appears stated age Head: Normocephalic, without obvious abnormality, atraumatic Eyes: conjunctivae/corneas clear. PERRL, EOM's intact. Fundi benign Throat: Lips, mucosa, and tongue normal. Teeth and gums normal Neck: supple, symmetrical, trachea midline, no adenopathy, thyroid: not enlarged, symmetric, no tenderness/mass/nodules, no carotid bruit and no JVD Lungs: clear to auscultation bilaterally Heart: regular rate and rhythm, S1, S2 normal, no murmur, click, rub or gallop Abdomen: soft, non-tender. Bowel sounds normal. No masses, no organomegaly Extremities: extremities normal, atraumatic, no cyanosis or edema/ s/p bilateral aka Pulses: 2+ and symmetric Skin: Skin color, texture, turgor normal. No rashes or lesions. multiple large decubitus ulcers. Neurologic: Grossly normal Microbiology Date/Time Source Procedure Growth Status 08/15/18 17:30 Blood Blood Culture - Preliminary Gram Negative Joey Resulted 08/15/18 17:15 Blood Blood Culture - Preliminary Gram Negative Joey Resulted 08/15/18 07:30 Nasal Nares MRSA Culture - Final NO METHICILLIN RESISTANT STAPH AUREUS... Complete 08/14/18 17:50 Nasopharynx Influenza Types A,B Antigen (KHALIF) - Final Complete 08/14/18 17:50 Stool Clostridium difficile Toxin Assay - Final Complete 08/15/18 07:30 Rectum - Final NO CARBAPENEM-RESISTANT ENTEROBACTERI... Complete 08/15/18 07:30 Rectum VRE Culture - Final NO VANCOMYCIN RESISTANT ENTEROCOCCUS ... Complete Laboratory Tests Test 08/17/18 08:15 White Blood Count 12.3 K/UL (4.8-10.8) H Red Blood Count 2.56 M/UL (4.70-6.10) L Hemoglobin 7.8 G/DL (14.2-18.0) L Hematocrit 26.0 % (42.0-52.0) L Mean Corpuscular Volume 102 FL (80-99) H Mean Corpuscular Hemoglobin 30.5 PG (27.0-31.0) Mean Corpuscular Hemoglobin Concent 30.0 G/DL (32.0-36.0) L Red Cell Distribution Width 15.2 % (11.6-14.8) H Platelet Count 160 K/UL (150-450) Mean Platelet Volume 5.0 FL (6.5-10.1) L Neutrophils (%) (Auto) % (45.0-75.0) Lymphocytes (%) (Auto) % (20.0-45.0) Monocytes (%) (Auto) % (1.0-10.0) Eosinophils (%) (Auto) % (0.0-3.0) Basophils (%) (Auto) % (0.0-2.0) Differential Total Cells Counted 100 Neutrophils % (Manual) 79 % (45-75) H Lymphocytes % (Manual) 16 % (20-45) L Monocytes % (Manual) 5 % (1-10) Eosinophils % (Manual) 0 % (0-3) Basophils % (Manual) 0 % (0-2) Band Neutrophils 0 % (0-8) Platelet Estimate Adequate Platelet Morphology Normal Polychromasia 1+ Hypochromasia 2+ Anisocytosis 1+ Macrocytosis 2+ Target Cells Rare Tear Drop Cells Rare Stomatocytes Sodium Level 153 MMOL/L (136-145) H Potassium Level 2.9 MMOL/L (3.5-5.1) L Chloride Level 120 MMOL/L (98-107) H Carbon Dioxide Level 26 MMOL/L (21-32) Anion Gap 7 mmol/L (5-15) Blood Urea Nitrogen 18 mg/dL (7-18) Creatinine 0.5 MG/DL (0.55-1.30) L Estimat Glomerular Filtration Rate > 60 mL/min (>60) Glucose Level 84 MG/DL (74-106) Calcium Level 7.2 MG/DL (8.5-10.1) L Current Medications Medications (Trade) Dose Ordered Sig/Erlin Route PRN Reason Start Time Stop Time Status Last Admin Dose Admin Acetaminophen (Tylenol) 650 mg Q4H PRN NG Mild Pain (Pain Scale 1-3) 08/17/18 11:00 09/13/18 06:44 Acetaminophen (Tylenol) 650 mg Q6H PRN NG Temp > 100.5 08/17/18 11:00 09/13/18 08:59 Acetaminophen/ Hydrocodone Bitart ([place] 5/325) 1 tab Q4H PRN NG For Pain 08/17/18 10:45 08/21/18 06:44 Apixaban (Eliquis) 2.5 mg Q12HR NG 08/17/18 21:00 09/13/18 08:59 Aripiprazole (Abilify) 5 mg BID ORAL 08/14/18 09:00 09/13/18 08:59 08/16/18 09:21 Daptomycin 400 mg/ Sodium Chloride 55 ml @ 110 mls/hr Q24H IV 08/15/18 18:00 08/22/18 17:59 08/16/18 17:29 Dextrose/ Electrolytes 1,000 ml @ 75 mls/hr [id number] IV 08/17/18 11:30 09/16/18 11:29 08/17/18 11:31 Docusate Sodium (Colace) 100 mg DAILYPRN PRN NG Constipation 08/17/18 11:00 09/13/18 06:44 Gabapentin (Neurontin) 100 mg THREE TIMES A DAY NG 08/17/18 13:00 09/13/18 12:59 Isoniazid (Inh) 300 mg DAILY NG 08/18/18 09:00 09/13/18 08:59 Lansoprazole (Prevacid) 30 mg DAILY NG 08/18/18 09:00 09/17/18 08:59 Magnesium Hydroxide (Mom) 30 ml BEDTIME NG 08/17/18 21:00 09/13/18 20:59 Metoprolol Tartrate (Lopressor) 50 mg Q12HR NG 08/17/18 21:00 09/13/18 08:59 Midodrine (Pro-Amatine) 5 mg THREE TIMES A DAY NG 08/17/18 13:00 09/13/18 08:59 Piperacillin Sod/ Tazobactam Sod 3.375 gm/Dextrose 110 ml @ 27.5 mls/hr EVERY 8 HOURS IVPB 08/15/18 14:00 08/20/18 13:59 08/17/18 05:44 Pyridoxine HCl (Vitamin B6) 50 mg DAILY NG 08/18/18 09:00 09/13/18 08:59 Sodium Hypochlorite (Dakin's Quarter Strength) 1 applic DAILY TOPIC 08/14/18 16:00 09/13/18 15:59 08/17/18 11:29 Vancomycin HCl (Firvanq) 250 mg FOUR TIMES A DAY NG 08/17/18 13:00 08/22/18 12:59 Vitamin B Complex/ Vit C/Folic Acid (Nephrovite) 1 tab DAILY NG 08/18/18 09:00 09/13/18 08:59 Zinc Sulfate (Zinc Sulfate) 220 mg DAILY NG 08/18/18 09:00 09/13/18 08:59 Alma Elkins M.D. Aug 17, 2018 15:26
[2018-08-17] MEDS: Vancomycin oral 125mg/2.5ml NG SCH ×3 (15:38→22:37)
[2018-08-17 16:00] VITALS: BP 121/67
[2018-08-17] MEDS ORDERED: Meropenem 1 GM in NS 55 ML IVPB SCH ×2 (17:00→20:00)
--- NOTE | 2018-08-17 17:10 | Internal Med Progress Note ---
Subjective Date of Service: Aug 17, 2018 Physician Name JacksonDaniel Attending Physician Pedro Caban MD Current Medications Medications (Trade) Dose Ordered Sig/Erlin Route PRN Reason Start Time Stop Time Status Last Admin Dose Admin Acetaminophen (Tylenol) 650 mg Q4H PRN NG Mild Pain (Pain Scale 1-3) 08/17/18 11:00 09/13/18 06:44 Acetaminophen (Tylenol) 650 mg Q6H PRN NG Temp > 100.5 08/17/18 11:00 09/13/18 08:59 Acetaminophen/ Hydrocodone Bitart ([place] 5/325) 1 tab Q4H PRN NG For Pain 08/17/18 10:45 08/21/18 06:44 Apixaban (Eliquis) 2.5 mg Q12HR NG 08/17/18 21:00 09/13/18 08:59 Aripiprazole (Abilify) 5 mg BID ORAL 08/14/18 09:00 09/13/18 08:59 08/16/18 09:21 Dextrose/ Electrolytes 1,000 ml @ 75 mls/hr [id number] IV 08/17/18 11:30 09/16/18 11:29 08/17/18 11:31 Docusate Sodium (Colace) 100 mg DAILYPRN PRN NG Constipation 08/17/18 11:00 09/13/18 06:44 Gabapentin (Neurontin) 100 mg THREE TIMES A DAY NG 08/17/18 13:00 09/13/18 12:59 08/17/18 15:38 Isoniazid (Inh) 300 mg DAILY NG 08/18/18 09:00 09/13/18 08:59 Lansoprazole (Prevacid) 30 mg DAILY NG 08/18/18 09:00 09/17/18 08:59 Magnesium Hydroxide (Mom) 30 ml BEDTIME NG 08/17/18 21:00 09/13/18 20:59 Meropenem 1 gm/ Sodium Chloride 55 ml @ 110 mls/hr Q8H IVPB 08/17/18 17:00 08/22/18 16:59 Metoprolol Tartrate (Lopressor) 50 mg Q12HR NG 08/17/18 21:00 09/13/18 08:59 Midodrine (Pro-Amatine) 5 mg THREE TIMES A DAY NG 08/17/18 13:00 09/13/18 08:59 08/17/18 15:38 Pyridoxine HCl (Vitamin B6) 50 mg DAILY NG 08/18/18 09:00 09/13/18 08:59 Sodium Hypochlorite (Dakin's Quarter Strength) 1 applic DAILY TOPIC 08/14/18 16:00 09/13/18 15:59 08/17/18 11:29 Vancomycin HCl (Firvanq) 250 mg FOUR TIMES A DAY NG 08/17/18 13:00 08/22/18 12:59 08/17/18 15:38 Vitamin B Complex/ Vit C/Folic Acid (Nephrovite) 1 tab DAILY NG 08/18/18 09:00 09/13/18 08:59 Zinc Sulfate (Zinc Sulfate) 220 mg DAILY NG 08/18/18 09:00 09/13/18 08:59 Allergies: Coded Allergies: MILK (Verified Allergy, Unknown, 02/02/18) ROS Limited/Unobtainable: Yes Subjective 68 YO M admitted with fever and leukocytosis. Now Sepsis and C. Difficile colitis/diarrhea. Cover for Int Med-Dr Caban. Objective Last Vital Signs Date Time Temp Pulse Resp B/P (MAP) Pulse Ox O2 Delivery O2 Flow Rate FiO2 08/17/18 12:36 97 08/17/18 12:00 98.6 24 105/61 (76) 95 08/17/18 09:00 Nasal Cannula 2.0 08/17/18 08:17 28 Laboratory Tests Test 08/17/18 08:15 White Blood Count 12.3 K/UL (4.8-10.8) H Red Blood Count 2.56 M/UL (4.70-6.10) L Hemoglobin 7.8 G/DL (14.2-18.0) L Hematocrit 26.0 % (42.0-52.0) L Mean Corpuscular Volume 102 FL (80-99) H Mean Corpuscular Hemoglobin 30.5 PG (27.0-31.0) Mean Corpuscular Hemoglobin Concent 30.0 G/DL (32.0-36.0) L Red Cell Distribution Width 15.2 % (11.6-14.8) H Platelet Count 160 K/UL (150-450) Mean Platelet Volume 5.0 FL (6.5-10.1) L Neutrophils (%) (Auto) % (45.0-75.0) Lymphocytes (%) (Auto) % (20.0-45.0) Monocytes (%) (Auto) % (1.0-10.0) Eosinophils (%) (Auto) % (0.0-3.0) Basophils (%) (Auto) % (0.0-2.0) Differential Total Cells Counted 100 Neutrophils % (Manual) 79 % (45-75) H Lymphocytes % (Manual) 16 % (20-45) L Monocytes % (Manual) 5 % (1-10) Eosinophils % (Manual) 0 % (0-3) Basophils % (Manual) 0 % (0-2) Band Neutrophils 0 % (0-8) Platelet Estimate Adequate Platelet Morphology Normal Polychromasia 1+ Hypochromasia 2+ Anisocytosis 1+ Macrocytosis 2+ Target Cells Rare Tear Drop Cells Rare Stomatocytes Sodium Level 153 MMOL/L (136-145) H Potassium Level 2.9 MMOL/L (3.5-5.1) L Chloride Level 120 MMOL/L (98-107) H Carbon Dioxide Level 26 MMOL/L (21-32) Anion Gap 7 mmol/L (5-15) Blood Urea Nitrogen 18 mg/dL (7-18) Creatinine 0.5 MG/DL (0.55-1.30) L Estimat Glomerular Filtration Rate > 60 mL/min (>60) Glucose Level 84 MG/DL (74-106) Calcium Level 7.2 MG/DL (8.5-10.1) L Microbiology Date/Time Source Procedure Growth Status 08/15/18 17:30 Blood Blood Culture - Preliminary Gram Negative Joey Resulted 08/15/18 17:15 Blood Blood Culture - Preliminary Gram Negative Joey Resulted 08/15/18 07:30 Nasal Nares MRSA Culture - Final NO METHICILLIN RESISTANT STAPH AUREUS... Complete 08/14/18 17:50 Nasopharynx Influenza Types A,B Antigen (KHALIF) - Final Complete 08/14/18 17:50 Stool Clostridium difficile Toxin Assay - Final Complete 08/15/18 07:30 Rectum - Final NO CARBAPENEM-RESISTANT ENTEROBACTERI... Complete 08/15/18 07:30 Rectum VRE Culture - Final NO VANCOMYCIN RESISTANT ENTEROCOCCUS ... Complete Intake and Output 08/16/18 08/17/18 19:00 07:00 Intake Total 144.8 ml Balance 144.8 ml IV Total 144.8 ml # Voids 3 3 # Bowel Movements 1 1 Objective General Appearance: WD/WN, no apparent distress, lethargic EENT: PERRL/EOMI, normal ENT inspection Neck: non-tender, normal alignment, supple, normal inspection Cardiovascular: normal peripheral pulses, normal rate, regular rhythm, no gallop/murmur, no JVD Respiratory/Chest: chest wall non-tender, lungs clear, normal breath sounds, no respiratory distress, no accessory muscle use Abdomen: normal bowel sounds, non tender, soft, no organomegaly, no mass Extremities: normal range of motion, non-tender 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 Continue zosyn and meropenem per ID. 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 (5) Renal failure (ARF), acute on chronic (6) Decubitus ulcer Assessment & Plan: Await debridement per surgery-see note (7) Bipolar II disorder (8) Leukocytosis (9) Clostridium difficile colitis Assessment & Plan: Continue oral vanco per ID (10) CVA (cerebral vascular accident) (11) Acute metabolic encephalopathy (12) HTN (hypertension) (13) CAD (coronary artery disease) (14) Atrial fibrillation Assessment & Plan: Continue Daniel Chirinos MD Aug 17, 2018 17:10
[2018-08-17 20:00] VITALS: BP 130/85
[2018-08-17] MEDS: Eliquis 2.5mg tablet NG SCH (21:59)
[2018-08-17] MEDS: Milk of Magnesia 30ml Ud NG SCH (21:59)
[2018-08-17] MEDS: Meropenem 1 GM in NS 55 ML IVPB SCH (22:00)
[2018-08-17] MEDS: Metoprolol Tartrate 50mg tab NG SCH (22:00)
[2018-08-18] VITALS: BP 107/64
[2018-08-18] MEDS: D5W w/KCl 20mEq 1,000 ML IV SCH ×3 (00:50→22:03)
[2018-08-18 04:00] VITALS: BP 112/68
[2018-08-18] MEDS: Meropenem 1 GM in NS 55 ML IVPB SCH ×3 (05:00→22:05)
[2018-08-18 08:00] VITALS: BP 107/49
[2018-08-18] MEDS: Metoprolol Tartrate 50mg tab NG SCH (09:00)
[2018-08-18] MEDS: Isoniazid 300mg tab NG SCH (09:35)
[2018-08-18] MEDS: Pyridoxine 50mg tab NG SCH (09:35)
[2018-08-18] MEDS: Eliquis 2.5mg tablet NG SCH ×2 (09:36→22:04)
[2018-08-18] MEDS: Zinc Sulfate 220mg cap NG SCH (09:37)
[2018-08-18] MEDS: Dakin's 0.125% Soln (Quarter Strength) 16oz TOPIC SCH (09:37)
[2018-08-18] MEDS: Nephrovite tab (Rena-Vite) NG SCH (09:37)
[2018-08-18 09:41] LABS: BASOPHILS % (AUTO) 0.9 % (0.0-2.0); EOSINOPHILS % (AUTO) 0.6 % (0.0-3.0); HEMATOCRIT 30.1 % (42.0-52.0); HEMOGLOBIN 9.5 G/DL (14.2-18.0); LYMPHOCYTES % (AUTO) 19.2 % (20.0-45.0); MEAN CORPUSCULAR VOLUME 99 FL (80-99); MONOCYTES % (AUTO) 6.7 % (1.0-10.0); NEUTROPHILS % (AUTO) 72.7 % (45.0-75.0); PLATELET COUNT 149 K/UL (150-450); RED BLOOD COUNT 3.04 M/UL (4.70-6.10); WHITE BLOOD COUNT 12.4 K/UL (4.8-10.8)
[2018-08-18] MEDS: Vancomycin oral 125mg/2.5ml NG SCH ×4 (09:47→22:04)
[2018-08-18 09:52] LABS: ANION GAP 6 mmol/L (5-15); BLOOD UREA NITROGEN 15 mg/dL (7-18); CALCIUM 7.2 MG/DL (8.5-10.1); CARBON DIOXIDE 27 MMOL/L (21-32); CHLORIDE 118 MMOL/L (98-107); CREATININE 0.6 MG/DL (0.55-1.30); POTASSIUM 3.3 MMOL/L (3.5-5.1); SODIUM 151 MMOL/L (136-145)
--- NOTE | 2018-08-18 11:07 | Surgery Progress Note ---
Surgery Progress Note Subjective Additional Comments positive C diff. positive blood cultures. dysphagia. Objective Last 24 Hour Vital Signs Date Time Temp Pulse Resp B/P (MAP) Pulse Ox O2 Delivery O2 Flow Rate FiO2 08/18/18 09:00 83 107/49 08/18/18 08:55 Nasal Cannula 2.0 28 08/18/18 08:55 97 Nasal Cannula 2.0 28 08/18/18 08:00 97.7 83 20 107/49 (68) 91 08/18/18 04:00 83 08/18/18 04:00 98.2 83 19 112/68 (83) 97 08/18/18 00:00 98.2 82 19 107/64 (78) 99 08/18/18 00:00 68 08/17/18 22:00 99 130/85 08/17/18 21:00 Nasal Cannula 2.0 08/17/18 20:00 98.6 99 20 130/85 (100) 99 08/17/18 20:00 110 08/17/18 16:45 98 08/17/18 16:00 98.4 97 22 121/67 (85) 95 08/17/18 12:36 97 08/17/18 12:00 98.6 89 24 105/61 (76) 95 I&O Intake and Output 08/17/18 08/18/18 19:00 07:00 Output Total 0 ml Balance 0 ml Output Urine Total 0 ml # Bowel Movements 1 1 Dressing: saturated Wound: other Drains: other Cardiovascular: RSR Respiratory: decreased breath sounds Abdomen: soft, present bowel sounds, non-distended Extremities: other Laboratory Tests Test 08/18/18 09:30 White Blood Count 12.4 K/UL (4.8-10.8) H Red Blood Count 3.04 M/UL (4.70-6.10) L Hemoglobin 9.5 G/DL (14.2-18.0) L Hematocrit 30.1 % (42.0-52.0) L Mean Corpuscular Volume 99 FL (80-99) Mean Corpuscular Hemoglobin 31.1 PG (27.0-31.0) H Mean Corpuscular Hemoglobin Concent 31.4 G/DL (32.0-36.0) L Red Cell Distribution Width 16.0 % (11.6-14.8) H Platelet Count 149 K/UL (150-450) L Mean Platelet Volume 5.4 FL (6.5-10.1) L Neutrophils (%) (Auto) 72.7 % (45.0-75.0) Lymphocytes (%) (Auto) 19.2 % (20.0-45.0) L Monocytes (%) (Auto) 6.7 % (1.0-10.0) Eosinophils (%) (Auto) 0.6 % (0.0-3.0) Basophils (%) (Auto) 0.9 % (0.0-2.0) Sodium Level 151 MMOL/L (136-145) H Potassium Level 3.3 MMOL/L (3.5-5.1) L Chloride Level 118 MMOL/L (98-107) H Carbon Dioxide Level 27 MMOL/L (21-32) Anion Gap 6 mmol/L (5-15) Blood Urea Nitrogen 15 mg/dL (7-18) Creatinine 0.6 MG/DL (0.55-1.30) Estimat Glomerular Filtration Rate > 60 mL/min (>60) Glucose Level 100 MG/DL (74-106) Calcium Level 7.2 MG/DL (8.5-10.1) L Plan Problems: (1) Sepsis Assessment & Plan: IV abx trend labs will monitor wounds possible debridement spoke with daughter. consent obtained. will plan for soon but needs medical care first. +c diff. +blood cultures. (2) Decubitus skin ulcer Assessment & Plan: Pt presented on admission with multiple full thickness pressure injuries. Full thickness pressure injury to L elbow.Base of wound wound with 25% fibrinous slough,75% pink granulation noted.(+) maceration along borders. erythema without elevation in skin temp periwound(L)1.5cm x (W)1.8cm x(D)0.3cm. Full thickness pressure injury R trochanter .Base of wound with pink granulation.Edges adherent to base of wound .No odor or exudate noted.Darker skin tone without induration periwound. (L)4.5cm x (W)6.3cm x (D) 3cm.Undermining 12-3 by 3cm @12o'clock. Full thickness pressure injury to R ischium .Wound is malodorous.90% soft necrosis,10% pink noted at base of wound ,(+) epibole along edges .Periwound darker in skin tone and is indurated.(L)8.4cm x (W)4.3cm (D)2.5cm .Tunneling at 1o'clock by 3.6cm ,tunneling @5o'clock by 6.3cm. Full thickness sacral pressure injury with 80% soft necrosis ,20% pink granulation .Wound is malodorous with small amt brown exudate (L)8.5cm x (W)5cm x (D)2.5cm ,undermining 8-5 by 4.7cm @1o'clock. Tx.Plan: Cleanse R trochanter with Dakin's 0.125% candelaria. Loosely pack with Dakin's soaked kerlix .Cover with Optifoam drsg TID and prn. Cleanse R Ischial wound with Dakin's 0.125% candelaria.Loosely pack with Dakin's soaked kerlix. Cavilon Skin Barrier periwound. Cover with Optifoam drsg TID and prn. Cleanse Sacral wound with dakin's 0.125% candelaria.Loosely pack with Dakin's soaked kerlix.Cavilon Skin Barrier periwound.Cover with Optifoam drsg TID and prn. Cleanse L elbow with Dakin's 0.125% candelaria. Apply Dakin's moist 2x2 gauze. Cover with Optifoam drsg TID and prn. Quartet Air fluidized mattress. Reposition L side to back at least every 2hours or as tolerated. Goyo Osuna Aug 18, 2018 11:07
[2018-08-18 12:00] VITALS: BP 120/73
--- NOTE | 2018-08-18 14:29 | Internal Med Progress Note ---
Subjective Physician Name Pedro Caban Attending Physician Pedro Caban MD Current Medications Medications (Trade) Dose Ordered Sig/Erlin Route PRN Reason Start Time Stop Time Status Last Admin Dose Admin Acetaminophen (Tylenol) 650 mg Q4H PRN NG Mild Pain (Pain Scale 1-3) 08/17/18 11:00 09/13/18 06:44 Acetaminophen (Tylenol) 650 mg Q6H PRN NG Temp > 100.5 08/17/18 11:00 09/13/18 08:59 Acetaminophen/ Hydrocodone Bitart ([place] 5/325) 1 tab Q4H PRN NG For Pain 08/17/18 10:45 08/21/18 06:44 Apixaban (Eliquis) 2.5 mg Q12HR NG 08/17/18 21:00 09/13/18 08:59 08/18/18 09:36 Aripiprazole (Abilify) 5 mg BID ORAL 08/14/18 09:00 09/13/18 08:59 08/18/18 09:36 Dextrose/ Electrolytes 1,000 ml @ 75 mls/hr [id number] IV 08/17/18 11:30 09/16/18 11:29 08/18/18 06:06 Docusate Sodium (Colace) 100 mg DAILYPRN PRN NG Constipation 08/17/18 11:00 09/13/18 06:44 Gabapentin (Neurontin) 100 mg THREE TIMES A DAY NG 08/17/18 13:00 09/13/18 12:59 08/18/18 13:43 Isoniazid (Inh) 300 mg DAILY NG 08/18/18 09:00 09/13/18 08:59 08/18/18 09:35 Lansoprazole (Prevacid) 30 mg DAILY NG 08/18/18 09:00 09/17/18 08:59 08/18/18 09:36 Magnesium Hydroxide (Mom) 30 ml BEDTIME NG 08/17/18 21:00 09/13/18 20:59 08/17/18 21:59 Meropenem 1 gm/ Sodium Chloride 55 ml @ 110 mls/hr Q8H IVPB 08/17/18 21:00 08/22/18 20:59 08/18/18 13:43 Metoprolol Tartrate (Lopressor) 50 mg Q12HR NG 08/17/18 21:00 09/13/18 08:59 08/17/18 22:00 Midodrine (Pro-Amatine) 5 mg THREE TIMES A DAY NG 08/17/18 13:00 09/13/18 08:59 08/18/18 13:42 Pyridoxine HCl (Vitamin B6) 50 mg DAILY NG 08/18/18 09:00 09/13/18 08:59 08/18/18 09:35 Sodium Hypochlorite (Dakin's Quarter Strength) 1 applic DAILY TOPIC 08/14/18 16:00 09/13/18 15:59 08/18/18 09:37 Vancomycin HCl (Firvanq) 250 mg FOUR TIMES A DAY NG 08/17/18 13:00 08/29/18 23:59 08/18/18 13:42 Vitamin B Complex/ Vit C/Folic Acid (Nephrovite) 1 tab DAILY NG 08/18/18 09:00 09/13/18 08:59 08/18/18 09:37 Zinc Sulfate (Zinc Sulfate) 220 mg DAILY NG 08/18/18 09:00 09/13/18 08:59 08/18/18 09:37 Allergies: Coded Allergies: MILK (Verified Allergy, Unknown, 02/02/18) Subjective open eyes, less responsive, severe weakness, NG tube Objective Last Vital Signs Date Time Temp Pulse Resp B/P (MAP) Pulse Ox O2 Delivery O2 Flow Rate FiO2 08/18/18 12:00 99 08/18/18 12:00 97.0 19 120/73 (89) 98 08/18/18 09:00 Nasal Cannula 2.0 08/18/18 08:55 28 Laboratory Tests Test 08/18/18 09:30 White Blood Count 12.4 K/UL (4.8-10.8) H Red Blood Count 3.04 M/UL (4.70-6.10) L Hemoglobin 9.5 G/DL (14.2-18.0) L Hematocrit 30.1 % (42.0-52.0) L Mean Corpuscular Volume 99 FL (80-99) Mean Corpuscular Hemoglobin 31.1 PG (27.0-31.0) H Mean Corpuscular Hemoglobin Concent 31.4 G/DL (32.0-36.0) L Red Cell Distribution Width 16.0 % (11.6-14.8) H Platelet Count 149 K/UL (150-450) L Mean Platelet Volume 5.4 FL (6.5-10.1) L Neutrophils (%) (Auto) 72.7 % (45.0-75.0) Lymphocytes (%) (Auto) 19.2 % (20.0-45.0) L Monocytes (%) (Auto) 6.7 % (1.0-10.0) Eosinophils (%) (Auto) 0.6 % (0.0-3.0) Basophils (%) (Auto) 0.9 % (0.0-2.0) Sodium Level 151 MMOL/L (136-145) H Potassium Level 3.3 MMOL/L (3.5-5.1) L Chloride Level 118 MMOL/L (98-107) H Carbon Dioxide Level 27 MMOL/L (21-32) Anion Gap 6 mmol/L (5-15) Blood Urea Nitrogen 15 mg/dL (7-18) Creatinine 0.6 MG/DL (0.55-1.30) Estimat Glomerular Filtration Rate > 60 mL/min (>60) Glucose Level 100 MG/DL (74-106) Calcium Level 7.2 MG/DL (8.5-10.1) L Microbiology Date/Time Source Procedure Growth Status 08/15/18 17:30 Blood Blood Culture - Preliminary Gram Negative Joey Resulted 08/15/18 17:15 Blood Blood Culture - Preliminary Gram Negative Joey Resulted Intake and Output 08/17/18 08/18/18 19:00 07:00 Output Total 0 ml Balance 0 ml Output Urine Total 0 ml # Bowel Movements 1 1 Objective General: No acute distress, less responsive HEENT: NCAT, sclera anicteric, PERRL, EOMI, NG tube, Neck: Supple, no significant jugular venous distention, Lungs: Fair inspiratory effort,decrease bilateral air entry at bases.l no Wheeze or Rales. Heart: Regular rate and rhythm, normal S1/S2, no murmur Abdomen: soft, generalized tenderness, + distended. Normoactive bowel sounds, Rectal Tube. Extremities: No Cyanosis , clubbing or edema. bilateral AKA, stump intact. Neuro: A&O x 1, Able to move upper extremities. t Assessment/Plan Assessment/Plan (1) Sepsis / bacteremia. Assessment & Plan: ESBL Proteus Mirablilis. Continue meropenem. 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 (5) Renal failure (ARF), acute on chronic (6) Decubitus ulcer Assessment & Plan: Await debridement per surgery-see note (7) Bipolar II disorder (8) Leukocytosis (9) Clostridium difficile colitis Assessment & Plan: Continue oral vanco per ID (10) CVA (cerebral vascular accident) (11) Acute metabolic encephalopathy (12) HTN (hypertension) (13) CAD (coronary artery disease) (14) Atrial fibrillation Plan: CT abdomen and Pelvic GI consult wound care. Pedro Caban MD Aug 18, 2018 14:29
[2018-08-18] MEDS ORDERED: Isovue-300 100ml vial INJ PRN ×2 (14:30→15:30)
--- NOTE | 2018-08-18 14:57 | Infectious Diseases Prog Note ---
Assessment/Plan Assessment/Plan Assessment: Sepsis-2ry to bacteremia (likley from GI translocation) and Cdiff -Cdif toxin a/b + -Bcx / GNR, 08/21 ESBL Proteus mirabilis (S Ertapenem, Zosyn), 08/21 Group C strep ; 08/15 Bcx 07/24 GNR; 08/17 Bcx p -u/a no pyuria -CXR: Suspect a small left pleural effusion. Mild basal atelectasis -influenza sc neg Fever,SP Leukocytosis ,improving Hx of lung cavitary lesion/ PNA- suspect likely to aspiration; lower suspicion for TB and/or fungal etiologies -06/08 CT chest: * Interval resolution of the cavitary component associated with the previously described anterior right upper lobe opacity. It is slightly decreased in size and more nodular in appearance on today's exam. Additional patchy opacities in the posterior right upper lobe are also slightly decreased in size and appear more nodular (previously were groundglass). Findings likely related to evolving infectious or inflammatory lesions however continued follow-up is recommended to assure resolution/exclude the possibility of neoplastic etiologies. -CT c/a/p: 10 mm opacity in the peripheral anterolateral right upper lobe with small central cavitation. Patchy groundglass opacity in the posterior right upper lobe. Suspect that these represent inflammatory/infectious lesions, but neoplastic etiology of either is certainly possible. Large left and moderate right pleural effusions. Resultant compressive atelectasis of portions of the lower lobes. 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 Hypertension. Multiple decubiti ulcers (elbow, sacral) -not infected Bipolar disorder. Coronary artery disease. VRE and MRSA colonized Plan: -Continue Meropenem #2 (abx d #5) given ESBL bacteremia -Continue PO Vancomycin #/-14 for Cdiff -08/17 SP Zosyn #3, Daptomycin #3 -08/15 SP Tamiflu #2, Ceftriaxone #2 -08/14 SP Cefepime and LEvaquin x1 -f/u Repeat 2 sets of Bcx -Low threshold for CT abd/p w/ if fever, Increasing WBC and persistent GNR bacteremia -Cont INH for latent TB -monitor LFTs -f/u Repeat Bcx x2, ucx -f/u cx -Monitor CBC/CMP, temperatures -wound care -aspiration precautions -Sx f/u Thank you for this consultation. Will continue to follow along with you. Discussed with RN. Subjective Allergies: Coded Allergies: MILK (Verified Allergy, Unknown, 02/02/18) Subjective afebrile WBC improved repeat Bcx p Objective Vital Signs Last 24 Hour Vital Signs Date Time Temp Pulse Resp B/P (MAP) Pulse Ox O2 Delivery O2 Flow Rate FiO2 08/18/18 12:00 99 08/18/18 12:00 97.0 89 19 120/73 (89) 98 08/18/18 09:00 83 107/49 08/18/18 09:00 Nasal Cannula 2.0 08/18/18 08:55 Nasal Cannula 2.0 28 08/18/18 08:55 97 Nasal Cannula 2.0 28 08/18/18 08:00 100 08/18/18 08:00 97.7 83 20 107/49 (68) 91 08/18/18 04:00 83 08/18/18 04:00 98.2 83 19 112/68 (83) 97 08/18/18 00:00 98.2 82 19 107/64 (78) 99 08/18/18 00:00 68 08/17/18 22:00 99 130/85 08/17/18 21:00 Nasal Cannula 2.0 08/17/18 20:00 98.6 99 20 130/85 (100) 99 08/17/18 20:00 110 08/17/18 16:45 98 08/17/18 16:00 98.4 97 22 121/67 (85) 95 Height (Feet): 6 Height (Inches): 0.40 Weight (Pounds): 150 Objective General appearance: alert, cooperative, no distress, appears stated age Head: Normocephalic, without obvious abnormality, atraumatic Eyes: conjunctivae/corneas clear. PERRL, EOM's intact. Fundi benign Throat: Lips, mucosa, and tongue normal. Teeth and gums normal Neck: supple, symmetrical, trachea midline, no adenopathy, thyroid: not enlarged, symmetric, no tenderness/mass/nodules, no carotid bruit and no JVD Lungs: clear to auscultation bilaterally Heart: regular rate and rhythm, S1, S2 normal, no murmur, click, rub or gallop Abdomen: soft, non-tender. Bowel sounds normal. No masses, no organomegaly Extremities: extremities normal, atraumatic, no cyanosis or edema/ s/p bilateral aka Pulses: 2+ and symmetric Skin: Skin color, texture, turgor normal. No rashes or lesions. multiple large decubitus ulcers. Neurologic: Grossly normal Microbiology Date/Time Source Procedure Growth Status 08/15/18 17:30 Blood Blood Culture - Preliminary Gram Negative Joey Resulted 08/15/18 17:15 Blood Blood Culture - Preliminary Gram Negative Joey Resulted Laboratory Tests Test 08/18/18 09:30 White Blood Count 12.4 K/UL (4.8-10.8) H Red Blood Count 3.04 M/UL (4.70-6.10) L Hemoglobin 9.5 G/DL (14.2-18.0) L Hematocrit 30.1 % (42.0-52.0) L Mean Corpuscular Volume 99 FL (80-99) Mean Corpuscular Hemoglobin 31.1 PG (27.0-31.0) H Mean Corpuscular Hemoglobin Concent 31.4 G/DL (32.0-36.0) L Red Cell Distribution Width 16.0 % (11.6-14.8) H Platelet Count 149 K/UL (150-450) L Mean Platelet Volume 5.4 FL (6.5-10.1) L Neutrophils (%) (Auto) 72.7 % (45.0-75.0) Lymphocytes (%) (Auto) 19.2 % (20.0-45.0) L Monocytes (%) (Auto) 6.7 % (1.0-10.0) Eosinophils (%) (Auto) 0.6 % (0.0-3.0) Basophils (%) (Auto) 0.9 % (0.0-2.0) Sodium Level 151 MMOL/L (136-145) H Potassium Level 3.3 MMOL/L (3.5-5.1) L Chloride Level 118 MMOL/L (98-107) H Carbon Dioxide Level 27 MMOL/L (21-32) Anion Gap 6 mmol/L (5-15) Blood Urea Nitrogen 15 mg/dL (7-18) Creatinine 0.6 MG/DL (0.55-1.30) Estimat Glomerular Filtration Rate > 60 mL/min (>60) Glucose Level 100 MG/DL (74-106) Calcium Level 7.2 MG/DL (8.5-10.1) L Current Medications Medications (Trade) Dose Ordered Sig/Erlin Route PRN Reason Start Time Stop Time Status Last Admin Dose Admin Acetaminophen (Tylenol) 650 mg Q4H PRN NG Mild Pain (Pain Scale 1-3) 08/17/18 11:00 09/13/18 06:44 Acetaminophen (Tylenol) 650 mg Q6H PRN NG Temp > 100.5 08/17/18 11:00 09/13/18 08:59 Acetaminophen/ Hydrocodone Bitart ([place] 5/325) 1 tab Q4H PRN NG For Pain 08/17/18 10:45 08/21/18 06:44 Apixaban (Eliquis) 2.5 mg Q12HR NG 08/17/18 21:00 09/13/18 08:59 08/18/18 09:36 Aripiprazole (Abilify) 5 mg BID ORAL 08/14/18 09:00 09/13/18 08:59 08/18/18 09:36 Barium Sulfate (Readi-Cat 2) 450 ml NOW PRN ORAL Radiology Procedure 08/18/18 14:30 08/20/18 14:17 Dextrose/ Electrolytes 1,000 ml @ 75 mls/hr [id number] IV 08/17/18 11:30 09/16/18 11:29 08/18/18 06:06 Docusate Sodium (Colace) 100 mg DAILYPRN PRN NG Constipation 08/17/18 11:00 09/13/18 06:44 Gabapentin (Neurontin) 100 mg THREE TIMES A DAY NG 08/17/18 13:00 09/13/18 12:59 08/18/18 13:43 Iopamidol (Isovue-300 100ml) 100 ml NOW PRN INJ Radiology Procedure 08/18/18 14:30 08/20/18 14:17 Isoniazid (Inh) 300 mg DAILY NG 08/18/18 09:00 09/13/18 08:59 08/18/18 09:35 Lansoprazole (Prevacid) 30 mg DAILY NG 08/18/18 09:00 09/17/18 08:59 08/18/18 09:36 Magnesium Hydroxide (Mom) 30 ml BEDTIME NG 08/17/18 21:00 09/13/18 20:59 08/17/18 21:59 Meropenem 1 gm/ Sodium Chloride 55 ml @ 110 mls/hr Q8H IVPB 08/17/18 21:00 08/22/18 20:59 08/18/18 13:43 Metoprolol Tartrate (Lopressor) 50 mg Q12HR NG 08/17/18 21:00 09/13/18 08:59 08/17/18 22:00 Midodrine (Pro-Amatine) 5 mg THREE TIMES A DAY NG 08/17/18 13:00 09/13/18 08:59 08/18/18 13:42 Pyridoxine HCl (Vitamin B6) 50 mg DAILY NG 08/18/18 09:00 09/13/18 08:59 08/18/18 09:35 Sodium Hypochlorite ([place]'s Quarter Strength) 1 applic DAILY TOPIC 08/14/18 16:00 09/13/18 15:59 08/18/18 09:37 Vancomycin HCl (Firvanq) 250 mg FOUR TIMES A DAY NG 08/17/18 13:00 08/29/18 23:59 08/18/18 13:42 Vitamin B Complex/ Vit C/Folic Acid (Nephrovite) 1 tab DAILY NG 08/18/18 09:00 09/13/18 08:59 08/18/18 09:37 Zinc Sulfate (Zinc Sulfate) 220 mg DAILY NG 08/18/18 09:00 09/13/18 08:59 08/18/18 09:37 Alma Elkins M.D. Aug 18, 2018 14:57
--- NOTE | 2018-08-18 15:12 | Pulmonology Progress Note ---
Assessment/Plan Problems: (1) Acute metabolic encephalopathy (2) Sepsis (3) Decubitus skin ulcer (4) UTI (urinary tract infection) (5) Anemia (6) CVA (cerebral vascular accident) Assessment/Plan Abdomen XR reviiweddebridement on Tuesday failed swallow study on NG tube telemetry records reviewed, still tachy with PAC's and PVC's check cultures iv abx iv fluids check electrolytes wound care surgery consult called, pts daughter agreed with debridement continue current meds. dvt prophylaxis. Subjective ROS Limited/Unobtainable: No Constitutional: Reports: no symptoms HEENT: Repors: no symptoms Allergies: Coded Allergies: MILK (Verified Allergy, Unknown, 02/02/18) Objective Last 24 Hour Vital Signs Date Time Temp Pulse Resp B/P (MAP) Pulse Ox O2 Delivery O2 Flow Rate FiO2 08/18/18 12:00 99 08/18/18 12:00 97.0 89 19 120/73 (89) 98 08/18/18 09:00 83 107/49 08/18/18 09:00 Nasal Cannula 2.0 08/18/18 08:55 Nasal Cannula 2.0 28 08/18/18 08:55 97 Nasal Cannula 2.0 28 08/18/18 08:00 100 08/18/18 08:00 97.7 83 20 107/49 (68) 91 08/18/18 04:00 83 08/18/18 04:00 98.2 83 19 112/68 (83) 97 08/18/18 00:00 98.2 82 19 107/64 (78) 99 08/18/18 00:00 68 08/17/18 22:00 99 130/85 08/17/18 21:00 Nasal Cannula 2.0 08/17/18 20:00 98.6 99 20 130/85 (100) 99 08/17/18 20:00 110 08/17/18 16:45 98 08/17/18 16:00 98.4 97 22 121/67 (85) 95 Intake and Output 08/17/18 08/18/18 19:00 07:00 Output Total 0 ml Balance 0 ml Output Urine Total 0 ml # Bowel Movements 1 1 General Appearance: WD/WN HEENT: normocephalic, atraumatic Respiratory/Chest: chest wall non-tender, lungs clear Cardiovascular: normal peripheral pulses, normal rate Abdomen: distended Genitourinary: normal external genitalia Extremities: no cyanosis Skin: no rash Microbiology Date/Time Source Procedure Growth Status 08/15/18 17:30 Blood Blood Culture - Preliminary Gram Negative Joey Resulted 08/15/18 17:15 Blood Blood Culture - Preliminary Gram Negative Joey Resulted Laboratory Tests 08/18/18 09:30: White Blood Count 12.4H, Red Blood Count 3.04L, Hemoglobin 9.5L, Hematocrit 30.1L, Mean Corpuscular Volume 99, Mean Corpuscular Hemoglobin 31.1H, Mean Corpuscular Hemoglobin Concent 31.4L, Red Cell Distribution Width 16.0H, Platelet Count 149L, Mean Platelet Volume 5.4L, Neutrophils (%) (Auto) 72.7, Lymphocytes (%) (Auto) 19.2L, Monocytes (%) (Auto) 6.7, Eosinophils (%) (Auto) 0.6, Basophils (%) (Auto) 0.9, Sodium Level 151H, Potassium Level 3.3L, Chloride Level 118H, Carbon Dioxide Level 27, Anion Gap 6, Blood Urea Nitrogen 15, Creatinine 0.6, Estimat Glomerular Filtration Rate > 60, Glucose Level 100, Calcium Level 7.2L Current Medications Medications (Trade) Dose Ordered Sig/Erlin Route PRN Reason Start Time Stop Time Status Last Admin Dose Admin Acetaminophen (Tylenol) 650 mg Q4H PRN NG Mild Pain (Pain Scale 1-3) 08/17/18 11:00 09/13/18 06:44 Acetaminophen (Tylenol) 650 mg Q6H PRN NG Temp > 100.5 08/17/18 11:00 09/13/18 08:59 Acetaminophen/ Hydrocodone Bitart ([place] 5/325) 1 tab Q4H PRN NG For Pain 08/17/18 10:45 08/21/18 06:44 Apixaban (Eliquis) 2.5 mg Q12HR NG 08/17/18 21:00 09/13/18 08:59 08/18/18 09:36 Aripiprazole (Abilify) 5 mg BID ORAL 08/14/18 09:00 09/13/18 08:59 08/18/18 09:36 Barium Sulfate (Readi-Cat 2) 450 ml NOW PRN ORAL Radiology Procedure 08/18/18 14:30 08/20/18 14:17 Dextrose/ Electrolytes 1,000 ml @ 75 mls/hr [id number] IV 08/17/18 11:30 09/16/18 11:29 08/18/18 06:06 Docusate Sodium (Colace) 100 mg DAILYPRN PRN NG Constipation 08/17/18 11:00 09/13/18 06:44 Gabapentin (Neurontin) 100 mg THREE TIMES A DAY NG 08/17/18 13:00 09/13/18 12:59 08/18/18 13:43 Iopamidol (Isovue-300 100ml) 100 ml NOW PRN INJ Radiology Procedure 08/18/18 14:30 08/20/18 14:17 Isoniazid (Inh) 300 mg DAILY NG 08/18/18 09:00 09/13/18 08:59 08/18/18 09:35 Lansoprazole (Prevacid) 30 mg DAILY NG 08/18/18 09:00 09/17/18 08:59 08/18/18 09:36 Magnesium Hydroxide (Mom) 30 ml BEDTIME NG 08/17/18 21:00 09/13/18 20:59 08/17/18 21:59 Meropenem 1 gm/ Sodium Chloride 55 ml @ 110 mls/hr Q8H IVPB 08/17/18 21:00 08/22/18 20:59 08/18/18 13:43 Metoprolol Tartrate (Lopressor) 50 mg Q12HR NG 08/17/18 21:00 09/13/18 08:59 08/17/18 22:00 Midodrine (Pro-Amatine) 5 mg THREE TIMES A DAY NG 08/17/18 13:00 09/13/18 08:59 08/18/18 13:42 Pyridoxine HCl (Vitamin B6) 50 mg DAILY NG 08/18/18 09:00 09/13/18 08:59 08/18/18 09:35 Sodium Hypochlorite (Dakin's Quarter Strength) 1 applic DAILY TOPIC 08/14/18 16:00 09/13/18 15:59 08/18/18 09:37 Vancomycin HCl (Firvanq) 250 mg FOUR TIMES A DAY NG 08/17/18 13:00 08/29/18 23:59 08/18/18 13:42 Vitamin B Complex/ Vit C/Folic Acid (Nephrovite) 1 tab DAILY NG 08/18/18 09:00 09/13/18 08:59 08/18/18 09:37 Zinc Sulfate (Zinc Sulfate) 220 mg DAILY NG 08/18/18 09:00 09/13/18 08:59 08/18/18 09:37 Minerva Montesinos MD Aug 18, 2018 15:12
[2018-08-18 16:00] VITALS: BP 120/80
[2018-08-18] MEDS ORDERED: Tubing IV Secondary IV ONE (16:30)
[2018-08-18] MEDS ORDERED: NS 275ml ONE (16:30)
[2018-08-18] MEDS ORDERED: NS 500ML ONE (16:30)
[2018-08-18 20:00] VITALS: BP 115/73
--- NOTE | 2018-08-18 21:00 | Consultation ---
DATE OF CONSULTATION: 08/18/2018 CONSULTING PHYSICIAN: Marisela Adams M.D. ATTENDING PHYSICIAN: Pedro Caban M.D. REFERRING PHYSICIAN: Pedro Caban M.D. REASON FOR CONSULTATION: Pressure sore prevention. HISTORY OF PRESENT ILLNESS: This is a 68-year-old male, who lives in a assisted facility and was admitted for abnormal laboratories and elevated white count. He is currently being treated for pneumonia. The patient have bilateral [id number] amputation. He is unable to turn himself. He also has a rectal tube and NG tube that creates some restrictions for movement. PAST MEDICAL HISTORY: 1. History of cerebrovascular accident. 2. CAD. 3. Hypertension. PAST SURGICAL HISTORY: He has had bilateral amputations and also history of decubitus ulcer and osteomyelitis. MEDICATIONS: Eliquis, Advair, Abilify, gabapentin, [place], Protonix, isoniazid, and Seroquel. REVIEW OF SYSTEMS: I was unable to obtain review of systems from the patient because he was unable to give information. PHYSICAL EXAMINATION: VITAL SIGNS: The patient was afebrile. Vitals are stable. GENERAL: The patient was arousable. SKIN: The patient does have several pressure ulcers: 1. He has a full-thickness pressure ulcer of the left elbow with 25% slough, also with some granulation tissue that measures 1.5 x 1.8 x 0.3 cm. 2. He has a full-thickness pressure ulcer in the right trochanter with granulation tissue. It measures 4.5 cm x 6.3 cm x 3 cm. 3. Full-thickness pressure injury to the right ischium that measures 8.4 cm x 4.3 cm x 2.5 cm with tunneling at 1 o'clock by 3.6 cm, tunneling at 5 o'clock by 6.3 cm. 4. Full-thickness sacral pressure ulcer measuring 8.5 cm x 5 cm x 2.5 cm undermining from 8 x 5 x 4.5 cm. ASSESSMENT: This is a 68-year-old male with a recent admission for sepsis and pneumonia with urinary tract infection. RECOMMENDATIONS: The patient is currently on antibiotics for his urinary tract infection. The patient has already been seen by Dr. Osuna for the multiple pressure ulcers, which are currently being loosely packed with Dakin. Agree with current plan as well as Cavilon skin barrier to the periwound. The patient needs to be repositioned every two hours. I also recommend a nutrition consult to ensure adequate nutritional needs. Monitor and manage friction and shear. Also please keep the linens dry and wrinkle free and moisturize the skin daily. Recommend floating heels off the mattress as well as referral to physical therapy and occupational therapy. Please monitor weight. Marisela Adams M.D. DR: RADHA JOB#: [id number] CC: GEORGETTE
--- NOTE | 2018-08-18 21:59 | General Progress Note ---
Assessment/Plan Assessment/Plan Assessment - C Difficile colitis - abdomen distended but soft and NT - doubt toxic megacolon - Malnutrition , NGT - s/p b/l AKA - anemia - bacteremia, leukocytosis Recommendations - continue Vanco PO - taper down broad spect abx when feasible - add probiotics - await CT scan - TF Thank you Gina Petersen MD Subjective Allergies: Coded Allergies: MILK (Verified Allergy, Unknown, 02/02/18) Objective Last 24 Hour Vital Signs Date Time Temp Pulse Resp B/P (MAP) Pulse Ox O2 Delivery O2 Flow Rate FiO2 08/18/18 19:31 98 Nasal Cannula 2.0 28 08/18/18 19:31 Nasal Cannula 2.0 28 08/18/18 16:00 97.4 30 19 120/80 (93) 100 08/18/18 16:00 107 08/18/18 12:00 99 08/18/18 12:00 97.0 89 19 120/73 (89) 98 08/18/18 09:00 83 107/49 08/18/18 09:00 Nasal Cannula 2.0 08/18/18 08:55 Nasal Cannula 2.0 28 08/18/18 08:55 97 Nasal Cannula 2.0 28 08/18/18 08:00 100 08/18/18 08:00 97.7 83 20 107/49 (68) 91 08/18/18 04:00 83 08/18/18 04:00 98.2 83 19 112/68 (83) 97 08/18/18 00:00 98.2 82 19 107/64 (78) 99 08/18/18 00:00 68 08/17/18 22:00 99 130/85 Intake and Output 08/17/18 08/18/18 19:00 07:00 Intake Total 75 ml Output Total 0 ml Balance 0 ml 75 ml IV Total 75 ml Output Urine Total 0 ml # Bowel Movements 1 1 Laboratory Tests 08/18/18 09:30: White Blood Count 12.4H, Red Blood Count 3.04L, Hemoglobin 9.5L, Hematocrit 30.1L, Mean Corpuscular Volume 99, Mean Corpuscular Hemoglobin 31.1H, Mean Corpuscular Hemoglobin Concent 31.4L, Red Cell Distribution Width 16.0H, Platelet Count 149L, Mean Platelet Volume 5.4L, Neutrophils (%) (Auto) 72.7, Lymphocytes (%) (Auto) 19.2L, Monocytes (%) (Auto) 6.7, Eosinophils (%) (Auto) 0.6, Basophils (%) (Auto) 0.9, Sodium Level 151H, Potassium Level 3.3L, Chloride Level 118H, Carbon Dioxide Level 27, Anion Gap 6, Blood Urea Nitrogen 15, Creatinine 0.6, Estimat Glomerular Filtration Rate > 60, Glucose Level 100, Calcium Level 7.2L Height (Feet): 6 Height (Inches): 0.40 Weight (Pounds): 150 Gina Petersen MD Aug 18, 2018 21:59
[2018-08-18] MEDS: Milk of Magnesia 30ml Ud NG SCH (22:04)
[2018-08-19] VITALS: BP 117/68
[2018-08-19 04:00] VITALS: BP 118/68
[2018-08-19] MEDS: Meropenem 1 GM in NS 55 ML IVPB SCH ×3 (05:23→23:32)
--- NOTE | 2018-08-19 07:55 | General Progress Note ---
Assessment/Plan Assessment/Plan Assessment - C Difficile colitis - abdomen distended but soft and NT - doubt toxic megacolon - Malnutrition , NGT - s/p b/l AKA - anemia - bacteremia, leukocytosis Recommendations - continue Vanco PO - taper down broad spect abx when feasible - add probiotics - await CT scan - TF -dc colace -dc ppi Subjective ROS Limited/Unobtainable: No Allergies: Coded Allergies: MILK (Verified Allergy, Unknown, 02/02/18) Objective Last 24 Hour Vital Signs Date Time Temp Pulse Resp B/P (MAP) Pulse Ox O2 Delivery O2 Flow Rate FiO2 08/19/18 04:00 111 08/19/18 04:00 98.1 111 19 118/68 (85) 98 08/19/18 01:25 98.1 08/19/18 00:00 104 08/19/18 00:00 101.3 18 117/68 (84) 99 08/18/18 21:00 Nasal Cannula 2.0 08/18/18 20:00 100.1 98 20 115/73 (87) 100 08/18/18 20:00 98 08/18/18 19:31 98 Nasal Cannula 2.0 28 08/18/18 19:31 Nasal Cannula 2.0 28 08/18/18 16:00 97.4 30 19 120/80 (93) 100 08/18/18 16:00 107 08/18/18 12:00 99 08/18/18 12:00 97.0 89 19 120/73 (89) 98 08/18/18 09:00 83 107/49 08/18/18 09:00 Nasal Cannula 2.0 08/18/18 08:55 Nasal Cannula 2.0 28 08/18/18 08:55 97 Nasal Cannula 2.0 28 08/18/18 08:00 100 08/18/18 08:00 97.7 83 20 107/49 (68) 91 Intake and Output 08/18/18 08/19/18 18:59 06:59 Intake Total 932 ml 970 ml Output Total 200 ml 500 ml Balance 732 ml 470 ml IV Total 902 ml 920 ml Tube Feeding 30 ml 50 ml Stool Total 200 ml 500 ml # Voids 2 2 # Bowel Movements 1 Laboratory Tests 08/18/18 09:30: White Blood Count 12.4H, Red Blood Count 3.04L, Hemoglobin 9.5L, Hematocrit 30.1L, Mean Corpuscular Volume 99, Mean Corpuscular Hemoglobin 31.1H, Mean Corpuscular Hemoglobin Concent 31.4L, Red Cell Distribution Width 16.0H, Platelet Count 149L, Mean Platelet Volume 5.4L, Neutrophils (%) (Auto) 72.7, Lymphocytes (%) (Auto) 19.2L, Monocytes (%) (Auto) 6.7, Eosinophils (%) (Auto) 0.6, Basophils (%) (Auto) 0.9, Sodium Level 151H, Potassium Level 3.3L, Chloride Level 118H, Carbon Dioxide Level 27, Anion Gap 6, Blood Urea Nitrogen 15, Creatinine 0.6, Estimat Glomerular Filtration Rate > 60, Glucose Level 100, Calcium Level 7.2L Height (Feet): 6 Height (Inches): 0.40 Weight (Pounds): 150 General Appearance: no apparent distress EENT: normal ENT inspection Neck: supple Cardiovascular: normal rate Respiratory/Chest: decreased breath sounds Abdomen: normal bowel sounds, non tender, soft Extremities: non-tender Nhan Aguirre MD Aug 19, 2018 07:55
[2018-08-19 08:00] VITALS: BP 132/100
[2018-08-19] MEDS: Vancomycin oral 125mg/2.5ml NG SCH ×4 (09:00→23:33)
[2018-08-19] MEDS: Nephrovite tab (Rena-Vite) NG SCH (09:00)
[2018-08-19] MEDS: Zinc Sulfate 220mg cap NG SCH (09:01)
[2018-08-19] MEDS: Eliquis 2.5mg tablet NG SCH ×2 (09:01→23:32)
[2018-08-19] MEDS: Isoniazid 300mg tab NG SCH (09:01)
[2018-08-19] MEDS: Pyridoxine 50mg tab NG SCH (09:02)
[2018-08-19] MEDS: Dakin's 0.125% Soln (Quarter Strength) 16oz TOPIC SCH (09:02)
[2018-08-19] MEDS: Lactobacillus-GG tablet ORAL SCH ×3 (09:02→17:25)
--- NOTE | 2018-08-19 10:41 | Infectious Diseases Prog Note ---
Assessment/Plan Assessment/Plan Assessment: Sepsis-2ry to bacteremia (likley from GI translocation vs decubitus , ro probable intra-abd ) C Diff -Cdif toxin a/b + -Bcx 08/21 GNR, 08/21 ESBL Proteus mirabilis (S Ertapenem, Zosyn), 08/21 Group C strep ; 08/15 Bcx 07/24 Prevotella L. Bcx p -u/a no pyuria -CXR: Suspect a small left pleural effusion. Mild basal atelectasis -influenza sc neg Fever,SP Leukocytosis , Persistent , mild Hx of lung cavitary lesion/ PNA- suspect likely to aspiration; lower suspicion for TB and/or fungal etiologies -06/08 CT chest: * Interval resolution of the cavitary component associated with the previously described anterior right upper lobe opacity. It is slightly decreased in size and more nodular in appearance on today's exam. Additional patchy opacities in the posterior right upper lobe are also slightly decreased in size and appear more nodular (previously were groundglass). Findings likely related to evolving infectious or inflammatory lesions however continued follow-up is recommended to assure resolution/exclude the possibility of neoplastic etiologies. -CT c/a/p: 10 mm opacity in the peripheral anterolateral right upper lobe with small central cavitation. Patchy groundglass opacity in the posterior right upper lobe. Suspect that these represent inflammatory/infectious lesions, but neoplastic etiology of either is certainly possible. Large left and moderate right pleural effusions. Resultant compressive atelectasis of portions of the lower lobes. 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 Hypertension. Multiple decubiti ulcers (elbow, sacral) -not infected Bipolar disorder. Coronary artery disease. VRE and MRSA colonized Plan: -Continue Meropenem #3 (abx d #6) given ESBL bacteremia -Continue PO Vancomycin #5/-14 for Cdiff -Cont INH for latent TB -2/28 SP Zosyn #3, Daptomycin #3 -08/15 SP Tamiflu #2, Ceftriaxone #2 -08/14 SP Cefepime and LEvaquin x1 -f/u Repeat 2 sets of Bcx - CT abd/p in view of Anaerobic bacteremia -monitor LFTs -f/u Repeat Bcx x2, ucx -Monitor CBC/CMP, temperatures -wound care -aspiration precautions -Sx f/u ( Case was DW ) Subjective Allergies: Coded Allergies: MILK (Verified Allergy, Unknown, 02/02/18) Subjective comfortable low grade fever last night Objective Vital Signs Last 24 Hour Vital Signs Date Time Temp Pulse Resp B/P (MAP) Pulse Ox O2 Delivery O2 Flow Rate FiO2 08/19/18 08:00 107 08/19/18 08:00 97.5 102 20 132/100 (111) 99 08/19/18 04:00 111 08/19/18 04:00 98.1 111 19 118/68 (85) 98 08/19/18 01:25 98.1 08/19/18 00:00 104 08/19/18 00:00 101.3 18 117/68 (84) 99 08/18/18 21:00 Nasal Cannula 2.0 08/18/18 20:00 100.1 98 20 115/73 (87) 100 08/18/18 20:00 98 08/18/18 19:31 98 Nasal Cannula 2.0 28 08/18/18 19:31 Nasal Cannula 2.0 28 08/18/18 16:00 97.4 30 19 120/80 (93) 100 08/18/18 16:00 107 08/18/18 12:00 99 08/18/18 12:00 97.0 89 19 120/73 (89) 98 Height (Feet): 6 Height (Inches): 0.40 Weight (Pounds): 150 HEENT: anicteric Respiratory/Chest: lungs clear Cardiovascular: normal rate Abdomen: no organomegaly Microbiology Date/Time Source Procedure Growth Status 08/17/18 17:45 Blood Blood Culture - Preliminary NO GROWTH AFTER 24 HOURS Resulted 08/17/18 17:30 Blood Blood Culture - Preliminary NO GROWTH AFTER 24 HOURS Resulted Current Medications Medications (Trade) Dose Ordered Sig/Erlin Route PRN Reason Start Time Stop Time Status Last Admin Dose Admin Acetaminophen (Tylenol) 650 mg Q4H PRN NG Mild Pain (Pain Scale 1-3) 08/17/18 11:00 09/13/18 06:44 Acetaminophen (Tylenol) 650 mg Q6H PRN NG Temp > 100.5 08/17/18 11:00 09/13/18 08:59 08/19/18 00:49 Acetaminophen/ Hydrocodone Bitart ([place] 5/325) 1 tab Q4H PRN NG For Pain 08/17/18 10:45 08/21/18 06:44 Apixaban (Eliquis) 2.5 mg Q12HR NG 08/17/18 21:00 09/13/18 08:59 08/19/18 09:01 Aripiprazole (Abilify) 5 mg BID ORAL 08/14/18 09:00 09/13/18 08:59 08/19/18 09:01 Barium Sulfate (Readi-Cat 2) 450 ml NOW PRN ORAL Radiology Procedure 08/18/18 14:30 08/20/18 14:17 Barium Sulfate (Readi-Cat 2) 450 ml NOW PRN ORAL Radiology Procedure 08/18/18 15:30 08/20/18 15:25 Dextrose/ Electrolytes 1,000 ml @ 75 mls/hr [id number] IV 08/17/18 11:30 09/16/18 11:29 08/18/18 22:03 Gabapentin (Neurontin) 100 mg THREE TIMES A DAY NG 08/17/18 13:00 09/13/18 12:59 08/19/18 09:01 Iopamidol (Isovue-300 100ml) 100 ml NOW PRN INJ Radiology Procedure 08/18/18 14:30 08/20/18 14:17 Iopamidol (Isovue-300 100ml) 100 ml NOW PRN INJ Radiology Procedure 08/18/18 15:30 08/20/18 15:29 Isoniazid (Inh) 300 mg DAILY NG 08/18/18 09:00 09/13/18 08:59 08/19/18 09:01 Lactobacillus Acidophilus (Culturelle) 1 tab THREE TIMES A DAY ORAL 08/19/18 09:00 09/18/18 08:59 08/19/18 09:02 Magnesium Hydroxide (Mom) 30 ml BEDTIME NG 08/17/18 21:00 09/13/18 20:59 08/18/18 22:04 Meropenem 1 gm/ Sodium Chloride 55 ml @ 110 mls/hr Q8H IVPB 08/17/18 21:00 08/22/18 20:59 08/19/18 05:23 Midodrine (Pro-Amatine) 5 mg THREE TIMES A DAY NG 08/17/18 13:00 09/13/18 08:59 08/19/18 09:00 Pyridoxine HCl (Vitamin B6) 50 mg DAILY NG 08/18/18 09:00 09/13/18 08:59 08/19/18 09:02 Sodium Hypochlorite (Dakin's Quarter Strength) 1 applic DAILY TOPIC 08/14/18 16:00 09/13/18 15:59 08/19/18 09:02 Vancomycin HCl (Firvanq) 250 mg FOUR TIMES A DAY NG 08/17/18 13:00 08/29/18 23:59 08/19/18 09:00 Vitamin B Complex/ Vit C/Folic Acid (Nephrovite) 1 tab DAILY NG 08/18/18 09:00 09/13/18 08:59 08/19/18 09:00 Zinc Sulfate (Zinc Sulfate) 220 mg DAILY NG 08/18/18 09:00 09/13/18 08:59 08/19/18 09:01 Akil Parker MD Aug 19, 2018 10:40
--- NOTE | 2018-08-19 11:18 | Pulmonology Progress Note ---
Assessment/Plan Problems: (1) Clostridium difficile colitis (2) Acute metabolic encephalopathy (3) Sepsis (4) Decubitus skin ulcer (5) UTI (urinary tract infection) (6) Anemia (7) CVA (cerebral vascular accident) Assessment/Plan Abdomen XR reviewed debridement on Tuesday failed swallow study on NG tube telemetry records reviewed, still tachy with PAC's and PVC's check cultures iv abx iv fluids check electrolytes wound care surgery consult called, pts daughter agreed with debridement continue current meds. dvt prophylaxis. Subjective ROS Limited/Unobtainable: No Constitutional: Reports: no symptoms HEENT: Repors: no symptoms Allergies: Coded Allergies: MILK (Verified Allergy, Unknown, 02/02/18) Objective Last 24 Hour Vital Signs Date Time Temp Pulse Resp B/P (MAP) Pulse Ox O2 Delivery O2 Flow Rate FiO2 08/19/18 08:00 107 08/19/18 08:00 97.5 102 20 132/100 (111) 99 08/19/18 04:00 111 08/19/18 04:00 98.1 111 19 118/68 (85) 98 08/19/18 01:25 98.1 08/19/18 00:00 104 08/19/18 00:00 101.3 18 117/68 (84) 99 08/18/18 21:00 Nasal Cannula 2.0 08/18/18 20:00 100.1 98 20 115/73 (87) 100 08/18/18 20:00 98 08/18/18 19:31 98 Nasal Cannula 2.0 28 08/18/18 19:31 Nasal Cannula 2.0 28 08/18/18 16:00 97.4 30 19 120/80 (93) 100 08/18/18 16:00 107 08/18/18 12:00 99 08/18/18 12:00 97.0 89 19 120/73 (89) 98 Intake and Output 08/18/18 08/19/18 19:00 07:00 Intake Total 942 ml 885 ml Output Total 200 ml 500 ml Balance 742 ml 385 ml IV Total 902 ml 845 ml Tube Feeding 40 ml 40 ml Stool Total 200 ml 500 ml # Voids 2 2 # Bowel Movements 1 General Appearance: WD/WN HEENT: normocephalic, atraumatic, PERRL Respiratory/Chest: lungs clear Cardiovascular: normal peripheral pulses, normal rate Abdomen: normal bowel sounds, soft, non tender Genitourinary: normal external genitalia Extremities: no clubbing Skin: no lesions Microbiology Date/Time Source Procedure Growth Status 08/17/18 17:45 Blood Blood Culture - Preliminary NO GROWTH AFTER 24 HOURS Resulted 08/17/18 17:30 Blood Blood Culture - Preliminary NO GROWTH AFTER 24 HOURS Resulted Current Medications Medications (Trade) Dose Ordered Sig/Erlin Route PRN Reason Start Time Stop Time Status Last Admin Dose Admin Acetaminophen (Tylenol) 650 mg Q4H PRN NG Mild Pain (Pain Scale 1-3) 08/17/18 11:00 09/13/18 06:44 Acetaminophen (Tylenol) 650 mg Q6H PRN NG Temp > 100.5 08/17/18 11:00 09/13/18 08:59 08/19/18 00:49 Acetaminophen/ Hydrocodone Bitart ([place] 5/325) 1 tab Q4H PRN NG For Pain 08/17/18 10:45 08/21/18 06:44 Apixaban (Eliquis) 2.5 mg Q12HR NG 08/17/18 21:00 09/13/18 08:59 08/19/18 09:01 Aripiprazole (Abilify) 5 mg BID ORAL 08/14/18 09:00 09/13/18 08:59 08/19/18 09:01 Barium Sulfate (Readi-Cat 2) 450 ml NOW PRN ORAL Radiology Procedure 08/18/18 14:30 08/20/18 14:17 Barium Sulfate (Readi-Cat 2) 450 ml NOW PRN ORAL Radiology Procedure 08/18/18 15:30 08/20/18 15:25 Dextrose/ Electrolytes 1,000 ml @ 75 mls/hr [id number] IV 08/17/18 11:30 09/16/18 11:29 08/18/18 22:03 Gabapentin (Neurontin) 100 mg THREE TIMES A DAY NG 08/17/18 13:00 09/13/18 12:59 08/19/18 09:01 Iopamidol (Isovue-300 100ml) 100 ml NOW PRN INJ Radiology Procedure 08/18/18 14:30 08/20/18 14:17 Iopamidol (Isovue-300 100ml) 100 ml NOW PRN INJ Radiology Procedure 08/18/18 15:30 08/20/18 15:29 Isoniazid (Inh) 300 mg DAILY NG 08/18/18 09:00 09/13/18 08:59 08/19/18 09:01 Lactobacillus Acidophilus (Culturelle) 1 tab THREE TIMES A DAY ORAL 08/19/18 09:00 09/18/18 08:59 08/19/18 09:02 Magnesium Hydroxide (Mom) 30 ml BEDTIME NG 08/17/18 21:00 09/13/18 20:59 08/18/18 22:04 Meropenem 1 gm/ Sodium Chloride 55 ml @ 110 mls/hr Q8H IVPB 08/17/18 21:00 08/22/18 20:59 08/19/18 05:23 Midodrine (Pro-Amatine) 5 mg THREE TIMES A DAY NG 08/17/18 13:00 09/13/18 08:59 08/19/18 09:00 Pyridoxine HCl (Vitamin B6) 50 mg DAILY NG 08/18/18 09:00 09/13/18 08:59 08/19/18 09:02 Sodium Hypochlorite (Dakin's Quarter Strength) 1 applic DAILY TOPIC 08/14/18 16:00 09/13/18 15:59 08/19/18 09:02 Vancomycin HCl (Firvanq) 250 mg FOUR TIMES A DAY NG 08/17/18 13:00 08/29/18 23:59 08/19/18 09:00 Vitamin B Complex/ Vit C/Folic Acid (Nephrovite) 1 tab DAILY NG 08/18/18 09:00 09/13/18 08:59 08/19/18 09:00 Zinc Sulfate (Zinc Sulfate) 220 mg DAILY NG 08/18/18 09:00 09/13/18 08:59 08/19/18 09:01 Minerva Montesinos MD Aug 19, 2018 11:18
--- NOTE | 2018-08-19 11:45 | Surgery Progress Note ---
Surgery Progress Note Subjective Additional Comments no acute events. micro noted. pending CT Objective Last 24 Hour Vital Signs Date Time Temp Pulse Resp B/P (MAP) Pulse Ox O2 Delivery O2 Flow Rate FiO2 08/19/18 09:00 Nasal Cannula 2.0 08/19/18 08:00 107 08/19/18 08:00 97.5 102 20 132/100 (111) 99 08/19/18 04:00 111 08/19/18 04:00 98.1 111 19 118/68 (85) 98 08/19/18 01:25 98.1 08/19/18 00:00 104 08/19/18 00:00 101.3 18 117/68 (84) 99 08/18/18 21:00 Nasal Cannula 2.0 08/18/18 20:00 100.1 98 20 115/73 (87) 100 08/18/18 20:00 98 08/18/18 19:31 98 Nasal Cannula 2.0 28 08/18/18 19:31 Nasal Cannula 2.0 28 08/18/18 16:00 97.4 30 19 120/80 (93) 100 08/18/18 16:00 107 08/18/18 12:00 99 08/18/18 12:00 97.0 89 19 120/73 (89) 98 I&O Intake and Output 08/18/18 08/19/18 19:00 07:00 Intake Total 942 ml 885 ml Output Total 200 ml 500 ml Balance 742 ml 385 ml IV Total 902 ml 845 ml Tube Feeding 40 ml 40 ml Stool Total 200 ml 500 ml # Voids 2 2 # Bowel Movements 1 Dressing: saturated Wound: other Drains: other Cardiovascular: RSR Respiratory: clear Abdomen: soft, non-tender, non-distended Extremities: edema, tenderness, other Plan Problems: (1) Sepsis Assessment & Plan: IV abx trend labs will monitor wounds possible debridement spoke with daughter. consent obtained. will plan for soon but needs medical care first. +c diff. +blood cultures. (2) Decubitus skin ulcer Assessment & Plan: Pt presented on admission with multiple full thickness pressure injuries. Full thickness pressure injury to L elbow.Base of wound wound with 25% fibrinous slough,75% pink granulation noted.(+) maceration along borders. erythema without elevation in skin temp periwound(L)1.5cm x (W)1.8cm x(D)0.3cm. Full thickness pressure injury R trochanter .Base of wound with pink granulation.Edges adherent to base of wound .No odor or exudate noted.Darker skin tone without induration periwound. (L)4.5cm x (W)6.3cm x (D) 3cm.Undermining 12-3 by 3cm @12o'clock. Full thickness pressure injury to R ischium .Wound is malodorous.90% soft necrosis,10% pink noted at base of wound ,(+) epibole along edges .Periwound darker in skin tone and is indurated.(L)8.4cm x (W)4.3cm (D)2.5cm .Tunneling at 1o'clock by 3.6cm ,tunneling @5o'clock by 6.3cm. Full thickness sacral pressure injury with 80% soft necrosis ,20% pink granulation .Wound is malodorous with small amt brown exudate (L)8.5cm x (W)5cm x (D)2.5cm ,undermining 8-5 by 4.7cm @1o'clock. Tx.Plan: Cleanse R trochanter with Dakin's 0.125% candelaria. Loosely pack with Dakin's soaked kerlix .Cover with Optifoam drsg TID and prn. Cleanse R Ischial wound with Dakin's 0.125% candelaria.Loosely pack with Dakin's soaked kerlix. Cavilon Skin Barrier periwound. Cover with Optifoam drsg TID and prn. Cleanse Sacral wound with dakin's 0.125% candelaria.Loosely pack with Dakin's soaked kerlix.Cavilon Skin Barrier periwound.Cover with Optifoam drsg TID and prn. Cleanse L elbow with Dakin's 0.125% candelaria. Apply Dakin's moist 2x2 gauze. Cover with Optifoam drsg TID and prn. Quartet Air fluidized mattress. Reposition L side to back at least every 2hours or as tolerated. Goyo Osuna Aug 19, 2018 11:45
[2018-08-19 12:00] VITALS: BP 123/75
--- NOTE | 2018-08-19 15:02 | Cardiac Electrophysiology PN ---
Subjective Subjective Well known to me from previous admission [id number] Objective Last 24 Hour Vital Signs Date Time Temp Pulse Resp B/P (MAP) Pulse Ox O2 Delivery O2 Flow Rate FiO2 08/19/18 12:00 97.7 93 20 123/75 (91) 96 08/19/18 09:00 Nasal Cannula 2.0 08/19/18 08:00 107 08/19/18 08:00 97.5 102 20 132/100 (111) 99 08/19/18 04:00 111 08/19/18 04:00 98.1 111 19 118/68 (85) 98 08/19/18 01:25 98.1 08/19/18 00:00 104 08/19/18 00:00 101.3 18 117/68 (84) 99 08/18/18 21:00 Nasal Cannula 2.0 08/18/18 20:00 100.1 98 20 115/73 (87) 100 08/18/18 20:00 98 08/18/18 19:31 98 Nasal Cannula 2.0 28 08/18/18 19:31 Nasal Cannula 2.0 28 08/18/18 16:00 97.4 30 19 120/80 (93) 100 08/18/18 16:00 107 Intake and Output 08/18/18 08/19/18 19:00 07:00 Intake Total 942 ml 885 ml Output Total 200 ml 500 ml Balance 742 ml 385 ml IV Total 902 ml 845 ml Tube Feeding 40 ml 40 ml Stool Total 200 ml 500 ml # Voids 2 2 # Bowel Movements 1 Microbiology Date/Time Source Procedure Growth Status 08/17/18 17:45 Blood Blood Culture - Preliminary NO GROWTH AFTER 24 HOURS Resulted 08/17/18 17:30 Blood Blood Culture - Preliminary NO GROWTH AFTER 24 HOURS Resulted Amandeep Arora MD Aug 19, 2018 15:02
[2018-08-19 16:00] VITALS: BP 123/71
--- NOTE | 2018-08-19 16:35 | Internal Med Progress Note ---
Subjective Date of Service: Aug 19, 2018 Physician Name Daniel Jackson Attending Physician Pedro Caban MD Current Medications Medications (Trade) Dose Ordered Sig/Erlin Route PRN Reason Start Time Stop Time Status Last Admin Dose Admin Acetaminophen (Tylenol) 650 mg Q4H PRN NG Mild Pain (Pain Scale 1-3) 08/17/18 11:00 09/13/18 06:44 Acetaminophen (Tylenol) 650 mg Q6H PRN NG Temp > 100.5 08/17/18 11:00 09/13/18 08:59 08/19/18 00:49 Acetaminophen/ Hydrocodone Bitart ([place] 5/325) 1 tab Q4H PRN NG For Pain 08/17/18 10:45 08/21/18 06:44 Amiodarone HCl (Cordarone) 200 mg DAILY ORAL 08/20/18 09:00 09/19/18 08:59 Apixaban (Eliquis) 2.5 mg Q12HR NG 08/17/18 21:00 09/13/18 08:59 08/19/18 09:01 Aripiprazole (Abilify) 5 mg BID ORAL 08/14/18 09:00 09/13/18 08:59 08/19/18 09:01 Barium Sulfate (Readi-Cat 2) 450 ml NOW PRN ORAL Radiology Procedure 08/18/18 14:30 08/20/18 14:17 Barium Sulfate (Readi-Cat 2) 450 ml NOW PRN ORAL Radiology Procedure 08/18/18 15:30 08/20/18 15:25 Dextrose/ Electrolytes 1,000 ml @ 75 mls/hr [id number] IV 08/17/18 11:30 09/16/18 11:29 08/18/18 22:03 Digoxin (Lanoxin) 0.125 mg DAILY ORAL 08/20/18 09:00 09/19/18 08:59 Gabapentin (Neurontin) 100 mg THREE TIMES A DAY NG 08/17/18 13:00 09/13/18 12:59 08/19/18 13:04 Iopamidol (Isovue-300 100ml) 100 ml NOW PRN INJ Radiology Procedure 08/18/18 14:30 08/20/18 14:17 Iopamidol (Isovue-300 100ml) 100 ml NOW PRN INJ Radiology Procedure 08/18/18 15:30 3/3/19 15:29 Isoniazid (Inh) 300 mg DAILY NG 08/18/18 09:00 09/13/18 08:59 08/19/18 09:01 Lactobacillus Acidophilus (Culturelle) 1 tab THREE TIMES A DAY ORAL 08/19/18 09:00 09/18/18 08:59 08/19/18 13:04 Magnesium Hydroxide (Mom) 30 ml BEDTIME NG 08/17/18 21:00 09/13/18 20:59 08/18/18 22:04 Meropenem 1 gm/ Sodium Chloride 55 ml @ 110 mls/hr Q8H IVPB 08/17/18 21:00 08/22/18 20:59 08/19/18 12:57 Metoprolol Tartrate (Lopressor) 25 mg Q12HR ORAL 08/19/18 21:00 09/18/18 20:59 Midodrine (Pro-Amatine) 5 mg THREE TIMES A DAY NG 08/17/18 13:00 09/13/18 08:59 08/19/18 13:04 Pyridoxine HCl (Vitamin B6) 50 mg DAILY NG 08/18/18 09:00 09/13/18 08:59 08/19/18 09:02 Sodium Hypochlorite (Dakin's Quarter Strength) 1 applic DAILY TOPIC 08/14/18 16:00 09/13/18 15:59 08/19/18 09:02 Vancomycin HCl (Firvanq) 250 mg FOUR TIMES A DAY NG 08/17/18 13:00 08/29/18 23:59 08/19/18 13:03 Vitamin B Complex/ Vit C/Folic Acid (Nephrovite) 1 tab DAILY NG 08/18/18 09:00 09/13/18 08:59 08/19/18 09:00 Zinc Sulfate (Zinc Sulfate) 220 mg DAILY NG 08/18/18 09:00 09/13/18 08:59 08/19/18 09:01 Allergies: Coded Allergies: MILK (Verified Allergy, Unknown, 02/02/18) ROS Limited/Unobtainable: Yes Subjective 68 YO M admitted with fever and leukocytosis. Now Sepsis and C. Difficile colitis/diarrhea. Cover for Int Med-Dr Caban. Objective Last Vital Signs Date Time Temp Pulse Resp B/P (MAP) Pulse Ox O2 Delivery O2 Flow Rate FiO2 08/19/18 12:00 97.7 93 20 123/75 (91) 96 08/19/18 09:00 Nasal Cannula 2.0 08/18/18 19:31 28 Microbiology Date/Time Source Procedure Growth Status 08/17/18 17:45 Blood Blood Culture - Preliminary Resulted 08/17/18 17:30 Blood Blood Culture - Preliminary Resulted Intake and Output 08/18/18 08/19/18 19:00 07:00 Intake Total 942 ml 885 ml Output Total 200 ml 500 ml Balance 742 ml 385 ml IV Total 902 ml 845 ml Tube Feeding 40 ml 40 ml Stool Total 200 ml 500 ml # Voids 2 2 # Bowel Movements 1 Objective General Appearance: WD/WN, no apparent distress, lethargic EENT: PERRL/EOMI, normal ENT inspection Neck: non-tender, normal alignment, supple, normal inspection Cardiovascular: normal peripheral pulses, normal rate, regular rhythm, no gallop/murmur, no JVD Respiratory/Chest: chest wall non-tender, lungs clear, normal breath sounds, no respiratory distress, no accessory muscle use Abdomen: normal bowel sounds, non tender, soft, no organomegaly, no mass Extremities: normal range of motion, non-tender 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 Continue zosyn and meropenem per ID. 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 (5) Renal failure (ARF), acute on chronic (6) Decubitus ulcer Assessment & Plan: Await debridement per surgery-see note (7) Bipolar II disorder (8) Leukocytosis (9) Clostridium difficile colitis Assessment & Plan: Continue oral vanco per ID (10) CVA (cerebral vascular accident) (11) Acute metabolic encephalopathy (12) HTN (hypertension) (13) CAD (coronary artery disease) (14) Atrial fibrillation Assessment & Plan: Continue eliquis (15) Pneumonia Assessment & Plan: Continue INH per ID-see note Status: not improved Daniel Jackson MD Aug 19, 2018 16:35
[2018-08-19] MEDS: D5W w/KCl 20mEq 1,000 ML IV SCH (17:13)
[2018-08-19 20:00] VITALS: BP 142/90
--- NOTE | 2018-08-19 20:30 | Consultation ---
See next dictation Gina Petersen M.D. DR: JACKELYN JOB#: [id number] CC: GEORGETTE
--- NOTE | 2018-08-19 20:41 | Diagnostic Imaging Report ---
EXAM: CT Abdomen and Pelvis With Intravenous Contrast CLINICAL HISTORY: ABD DIST TECHNIQUE: Axial computed tomography images of the abdomen and pelvis with intravenous contrast. CTDI is 18.6 mGy and DLP is 1069 mGy-cm. One or more of the following dose reduction techniques were used: automated exposure control, adjustment of the mA and/or kV according to patient size, use of iterative reconstruction technique. COMPARISON: No relevant prior studies available. FINDINGS: Lung bases: See below. Pleural space: Bilateral pleural effusions. Adjacent atelectasis/consolidation. Pulmonary lesions. Heart: Cardiomegaly. ABDOMEN: Liver: Unremarkable. Gallbladder and bile ducts: No calcified stones. No ductal dilation. Pancreas: Unremarkable. Spleen: Low-attenuation lesion in the spleen, about 2.2 cm Adrenals: Unremarkable. Kidneys and ureters: Too small characterization with attenuation focus in left kidney, about 5 mm Stomach and bowel: Colonic mural thickening consistent with some form of colitis. No pneumatosis or extraluminal air. Some colonic distention. Stomach is thickened. PELVIS: Appendix: Bulbous appendix measuring about 8 mm. Bladder: Unremarkable. Reproductive: Unremarkable. ABDOMEN and PELVIS: Intraperitoneal space: A small amounts of fluid in the peritoneal cavity. Bones/joints: Decubitus ulcers. Associated osteomyelitis not excluded. Soft tissues: Anasarca. Vasculature: Unremarkable. No abdominal aortic aneurysm. Lymph nodes: No enlarged lymph nodes. Tubes, lines and devices: Enteric tube in the stomach. Rectal tube. IMPRESSION: Colonic mural thickening consistent with some form of colitis. No pneumatosis or extraluminal air.
[2018-08-19] MEDS: Milk of Magnesia 30ml Ud NG SCH (23:33)
[2018-08-19] MEDS: Metoprolol 25mg tab ORAL SCH (23:34)
[2018-08-20] VITALS: BP 112/52
--- NOTE | 2018-08-20 02:45 | Consultation ---
DATE OF CONSULTATION: 08/19/2018 CARDIOLOGY CONSULTATION CONSULTING PHYSICIAN: Amandeep Arora M.D. REFERRING PHYSICIAN: Pedro Caban M.D. REASON FOR CONSULTATION: Hypertension and tachycardia. HISTORY OF PRESENT ILLNESS: The patient is a 68-year-old gentleman with history of hypertension, coronary artery disease, history of CVA as well as bilateral amputation, history of decubitus ulcer, and osteomyelitis, who was admitted for abnormal laboratory and elevated white count. The patient is started on treatment for pneumonia. The patient has a rectal tube and NG tube. The patient was also evaluated by ID and surgery for bacteremia. Blood cultures 2/4 gram-negative madhavi and 3/4 ESBL. The patient is also C. diff positive. He also has history of paroxysmal atrial fibrillation, atrial flutter, for which he was on digoxin, metoprolol, amiodarone, and Eliquis. REVIEW OF SYSTEMS: Negative other than what was mentioned in the history of present illness. PAST MEDICAL HISTORY: As mentioned above. FAMILY HISTORY: Noncontributory. SOCIAL HISTORY: He is a [facility] resident. Does not smoke or drink alcohol. PHYSICAL EXAMINATION: VITAL SIGNS: Blood pressure 122/75, pulse 93, respirations 20, and temperature 97.7 degrees. HEAD AND NECK: Shows no JVD. He has an NG tube. LUNGS: Have coarse rhonchi. CARDIOVASCULAR: Shows regular S1 and S2 with no gallop or murmur. ABDOMEN: Soft. EXTREMITIES: Bilateral above-knee amputation. LABORATORY AND DIAGNOSTIC DATA: Labs show a white count of 12.4, hemoglobin 9.5, hematocrit of 30, and platelet count of 149,000. Sodium is 151, potassium is 3.3, BUN of 15, creatinine of 0.6, and glucose of 100. His digoxin is less than 0.3. ASSESSMENT AND PLAN: 1. History of atrial fibrillation with rapid ventricular response. The patient is back on Eliquis 2.5 mg b.i.d. He was on metoprolol 50 mg b.i.d. for rate control, but was discontinued as the blood pressure was on lower side. We will resume metoprolol 25 mg b.i.d. He had previous admission about a month ago. The patient was also on digoxin and amiodarone, they both will be resumed. 2. Fever and sepsis. Positive blood culture. IV antibiotics per Dr. Parker. On previous admission, he was on . 3. History of dementia and psychosis. 4. 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 5. Sacral decubitus. 6. C. diff colitis. Thank you very much, Dr. Caban, for allowing me to participate in the care of this patient. Please do not hesitate to contact me if you have any questions regarding my evaluation. Sincerely, Amandeep Arora M.D. DR: DAGOBERTO JOB#: [id number] CC:
[2018-08-20 04:00] VITALS: BP 114/72
[2018-08-20] MEDS: D5W w/KCl 20mEq 1,000 ML IV SCH ×2 (06:10→19:04)
[2018-08-20] MEDS: Meropenem 1 GM in NS 55 ML IVPB SCH ×3 (07:16→21:00)
[2018-08-20 08:00] VITALS: BP 112/75
[2018-08-20] MEDS: Lactobacillus-GG tablet ORAL SCH (08:48)
[2018-08-20] MEDS: Pyridoxine 50mg tab NG SCH (08:48)
[2018-08-20] MEDS: Isoniazid 300mg tab NG SCH (08:49)
[2018-08-20] MEDS: Nephrovite tab (Rena-Vite) NG SCH (08:49)
[2018-08-20] MEDS: Zinc Sulfate 220mg cap NG SCH (08:49)
[2018-08-20] MEDS: Eliquis 2.5mg tablet NG SCH ×2 (08:49→21:00)
[2018-08-20] MEDS ORDERED: Digoxin 0.125mg tab ORAL SCH (09:00)
[2018-08-20] MEDS ORDERED: Amiodarone 200mg tab ORAL SCH (09:00)
[2018-08-20] MEDS: Vancomycin oral 125mg/2.5ml NG SCH ×4 (09:03→21:00)
[2018-08-20] MEDS: Metoprolol 25mg tab ORAL SCH (09:04)
[2018-08-20] MEDS: Dakin's 0.125% Soln (Quarter Strength) 16oz TOPIC SCH (09:05)
--- NOTE | 2018-08-20 10:42 | General Progress Note ---
Assessment/Plan Assessment/Plan Assessment - C Difficile colitis - abdomen distended but soft and NT - doubt toxic megacolon - Malnutrition , NGT - s/p b/l AKA - anemia - bacteremia, leukocytosis Recommendations - continue Vanco PO - taper down broad spect abx when feasible - add probiotics - CT scan reviewed - TF -dc colace -dc ppi Subjective ROS Limited/Unobtainable: No Allergies: Coded Allergies: MILK (Verified Allergy, Unknown, 02/02/18) Objective Last 24 Hour Vital Signs Date Time Temp Pulse Resp B/P (MAP) Pulse Ox O2 Delivery O2 Flow Rate FiO2 08/20/18 09:04 88 112/75 08/20/18 09:04 88 08/20/18 09:00 Nasal Cannula 2.0 08/20/18 08:00 98.4 88 20 112/75 (87) 95 08/20/18 04:00 98.0 93 19 114/72 (86) 90 08/20/18 04:00 81 08/20/18 00:00 98.1 63 19 112/52 (72) 97 08/20/18 00:00 77 08/19/18 23:34 90 142/90 08/19/18 21:00 Nasal Cannula 2.0 08/19/18 20:00 93 08/19/18 20:00 100.3 90 18 142/90 (107) 97 08/19/18 16:00 113 08/19/18 16:00 97.9 112 20 123/71 (88) 95 08/19/18 12:00 97.7 93 20 123/75 (91) 96 08/19/18 12:00 102 Intake and Output 08/19/18 08/20/18 18:59 06:59 Intake Total 450 ml Balance 450 ml IV Total 450 ml # Voids 1 # Bowel Movements 1 1 Procedure: CT Abdomen Pelvis w/Contrast EXAM: CT Abdomen and Pelvis With Intravenous Contrast CLINICAL HISTORY: ABD DIST TECHNIQUE: Axial computed tomography images of the abdomen and pelvis with intravenous contrast. CTDI is 18.6 mGy and DLP is 1069 mGy-cm. One or more of the following dose reduction techniques were used: automated exposure control, adjustment of the mA and/or kV according to patient size, use of iterative reconstruction technique. COMPARISON: No relevant prior studies available. FINDINGS: Lung bases: See below. Pleural space: Bilateral pleural effusions. Adjacent atelectasis/consolidation. Pulmonary lesions. Heart: Cardiomegaly. ABDOMEN: Liver: Unremarkable. Gallbladder and bile ducts: No calcified stones. No ductal dilation. Pancreas: Unremarkable. Spleen: Low-attenuation lesion in the spleen, about 2.2 cm Adrenals: Unremarkable. Kidneys and ureters: Too small characterization with attenuation focus in left kidney, about 5 mm Stomach and bowel: Colonic mural thickening consistent with some form of colitis. No pneumatosis or extraluminal air. Some colonic distention. Stomach is thickened. PELVIS: Appendix: Bulbous appendix measuring about 8 mm. Bladder: Unremarkable. Reproductive: Unremarkable. ABDOMEN and PELVIS: Intraperitoneal space: A small amounts of fluid in the peritoneal cavity. Bones/joints: Decubitus ulcers. Associated osteomyelitis not excluded. Soft tissues: Anasarca. Vasculature: Unremarkable. No abdominal aortic aneurysm. Lymph nodes: No enlarged lymph nodes. Tubes, lines and devices: Enteric tube in the stomach. Rectal tube. IMPRESSION: Colonic mural thickening consistent with some form of colitis. No pneumatosis or extraluminal air. Height (Feet): 6 Height (Inches): 0.40 Weight (Pounds): 150 General Appearance: lethargic EENT: normal ENT inspection Neck: supple Cardiovascular: normal rate Respiratory/Chest: decreased breath sounds Abdomen: soft, decreased bowel sounds, distended Extremities: non-tender Nhan Aguirre MD Aug 20, 2018 10:42
[2018-08-20] MEDS ORDERED: Tubing IV Secondary IV ONE (11:45)
[2018-08-20 12:00] VITALS: BP 123/73
--- NOTE | 2018-08-20 12:44 | Surgery Progress Note ---
Surgery Progress Note Subjective Additional Comments No acute events resting comfortably mental status unchanged. Pending clearance of blood cultures Objective Last 24 Hour Vital Signs Date Time Temp Pulse Resp B/P (MAP) Pulse Ox O2 Delivery O2 Flow Rate FiO2 08/20/18 09:04 88 112/75 08/20/18 09:04 88 08/20/18 09:00 Nasal Cannula 2.0 08/20/18 08:00 98.4 88 20 112/75 (87) 95 08/20/18 08:00 112 08/20/18 04:00 98.0 93 19 114/72 (86) 90 08/20/18 04:00 81 08/20/18 00:00 98.1 63 19 112/52 (72) 97 08/20/18 00:00 77 08/19/18 23:34 90 142/90 08/19/18 21:00 Nasal Cannula 2.0 08/19/18 20:00 93 08/19/18 20:00 100.3 90 18 142/90 (107) 97 08/19/18 16:00 113 08/19/18 16:00 97.9 112 20 123/71 (88) 95 I&O Intake and Output 08/19/18 08/20/18 19:00 07:00 Intake Total 450 ml Balance 450 ml IV Total 450 ml # Voids 1 # Bowel Movements 1 1 Dressing: saturated Wound: other Drains: other Cardiovascular: RSR Respiratory: clear Abdomen: soft, non-tender, present bowel sounds Extremities: other Plan Problems: (1) Sepsis Assessment & Plan: IV abx trend labs will monitor wounds possible debridement spoke with daughter. consent obtained. will plan for soon but needs medical care first. +c diff. +blood cultures. (2) Decubitus skin ulcer Assessment & Plan: Pt presented on admission with multiple full thickness pressure injuries. Full thickness pressure injury to L elbow.Base of wound wound with 25% fibrinous slough,75% pink granulation noted.(+) maceration along borders. erythema without elevation in skin temp periwound(L)1.5cm x (W)1.8cm x(D)0.3cm. Full thickness pressure injury R trochanter .Base of wound with pink granulation.Edges adherent to base of wound .No odor or exudate noted.Darker skin tone without induration periwound. (L)4.5cm x (W)6.3cm x (D) 3cm.Undermining 12-3 by 3cm @12o'clock. Full thickness pressure injury to R ischium .Wound is malodorous.90% soft necrosis,10% pink noted at base of wound ,(+) epibole along edges .Periwound darker in skin tone and is indurated.(L)8.4cm x (W)4.3cm (D)2.5cm .Tunneling at 1o'clock by 3.6cm ,tunneling @5o'clock by 6.3cm. Full thickness sacral pressure injury with 80% soft necrosis ,20% pink granulation .Wound is malodorous with small amt brown exudate (L)8.5cm x (W)5cm x (D)2.5cm ,undermining 8-5 by 4.7cm @1o'clock. Tx.Plan: Cleanse R trochanter with Dakin's 0.125% candelaria. Loosely pack with Dakin's soaked kerlix .Cover with Optifoam drsg TID and prn. Cleanse R Ischial wound with Dakin's 0.125% candelaria.Loosely pack with Dakin's soaked kerlix. Cavilon Skin Barrier periwound. Cover with Optifoam drsg TID and prn. Cleanse Sacral wound with dakin's 0.125% candelaria.Loosely pack with Dakin's soaked kerlix.Cavilon Skin Barrier periwound.Cover with Optifoam drsg TID and prn. Cleanse L elbow with Dakin's 0.125% candelaria. Apply Dakin's moist 2x2 gauze. Cover with Optifoam drsg TID and prn. Quartet Air fluidized mattress. Reposition L side to back at least every 2hours or as tolerated. Goyo Osuna Aug 20, 2018 12:44
[2018-08-20] MEDS: Lactobacillus-GG tablet NG SCH ×2 (13:35→17:44)
[2018-08-20 13:57] LABS: BASOPHILS % (AUTO) 0.5 % (0.0-2.0); EOSINOPHILS % (AUTO) 0.6 % (0.0-3.0); HEMATOCRIT 28.1 % (42.0-52.0); HEMOGLOBIN 9.1 G/DL (14.2-18.0); LYMPHOCYTES % (AUTO) 13.5 % (20.0-45.0); MEAN CORPUSCULAR VOLUME 97 FL (80-99); MONOCYTES % (AUTO) 4.2 % (1.0-10.0); NEUTROPHILS % (AUTO) 81.1 % (45.0-75.0); PLATELET COUNT 158 K/UL (150-450); RED BLOOD COUNT 2.91 M/UL (4.70-6.10); RED CELL DISTRIBUTION WIDTH 15.3 % (11.6-14.8); WHITE BLOOD COUNT 13.9 K/UL (4.8-10.8)
[2018-08-20 14:20] LABS: ANION GAP 7 mmol/L (5-15); BLOOD UREA NITROGEN 13 mg/dL (7-18); CALCIUM 7.1 MG/DL (8.5-10.1); CARBON DIOXIDE 25 MMOL/L (21-32); CHLORIDE 114 MMOL/L (98-107); CREATININE 0.5 MG/DL (0.55-1.30); SODIUM 145 MMOL/L (136-145)
[2018-08-20 14:27] LABS: POTASSIUM 2.7 MMOL/L (3.5-5.1)
--- NOTE | 2018-08-20 14:28 | Pulmonology Progress Note ---
Assessment/Plan Problems: (1) Clostridium difficile colitis (2) Acute metabolic encephalopathy (3) Sepsis (4) Decubitus skin ulcer (5) UTI (urinary tract infection) (6) Anemia (7) CVA (cerebral vascular accident) Assessment/Plan persistent positive blood cultures failed swallow study on NG tube telemetry records reviewed, still tachy with PAC's and PVC's iv abx iv fluids K-supplement check electrolytes continue current meds. dvt prophylaxis. Subjective ROS Limited/Unobtainable: No Constitutional: Reports: no symptoms HEENT: Repors: no symptoms Respiratory: Reports: no symptoms Allergies: Coded Allergies: MILK (Verified Allergy, Unknown, 02/02/18) Objective Last 24 Hour Vital Signs Date Time Temp Pulse Resp B/P (MAP) Pulse Ox O2 Delivery O2 Flow Rate FiO2 08/20/18 09:04 88 112/75 08/20/18 09:04 88 08/20/18 09:00 Nasal Cannula 2.0 08/20/18 08:00 98.4 88 20 112/75 (87) 95 08/20/18 08:00 112 08/20/18 04:00 98.0 93 19 114/72 (86) 90 08/20/18 04:00 81 08/20/18 00:00 98.1 63 19 112/52 (72) 97 08/20/18 00:00 77 08/19/18 23:34 90 142/90 08/19/18 21:00 Nasal Cannula 2.0 08/19/18 20:00 93 08/19/18 20:00 100.3 90 18 142/90 (107) 97 08/19/18 16:00 113 08/19/18 16:00 97.9 112 20 123/71 (88) 95 Intake and Output 08/19/18 08/20/18 19:00 07:00 Intake Total 450 ml Balance 450 ml IV Total 450 ml # Voids 1 # Bowel Movements 1 1 General Appearance: WD/WN HEENT: normocephalic, atraumatic Respiratory/Chest: chest wall non-tender, lungs clear Cardiovascular: normal peripheral pulses, normal rate Abdomen: normal bowel sounds, soft, non tender Microbiology Date/Time Source Procedure Growth Status 08/17/18 17:45 Blood Blood Culture - Preliminary Resulted 08/17/18 17:30 Blood Blood Culture - Preliminary Resulted Laboratory Tests 08/20/18 13:35: White Blood Count 13.9H, Red Blood Count 2.91L, Hemoglobin 9.1L, Hematocrit 28.1L, Mean Corpuscular Volume 97, Mean Corpuscular Hemoglobin 31.3H, Mean Corpuscular Hemoglobin Concent 32.4, Red Cell Distribution Width 15.3H, Platelet Count 158, Mean Platelet Volume 5.7L, Neutrophils (%) (Auto) 81.1H, Lymphocytes (%) (Auto) 13.5L, Monocytes (%) (Auto) 4.2, Eosinophils (%) (Auto) 0.6, Basophils (%) (Auto) 0.5, Sodium Level [Pending], Potassium Level [Pending] , Chloride Level [Pending], Carbon Dioxide Level [Pending], Blood Urea Nitrogen [Pending], Creatinine [Pending], Estimat Glomerular Filtration Rate [Pending], Glucose Level [Pending], Calcium Level [Pending] Current Medications Medications (Trade) Dose Ordered Sig/Erlin Route PRN Reason Start Time Stop Time Status Last Admin Dose Admin Acetaminophen (Tylenol) 650 mg Q4H PRN NG Mild Pain (Pain Scale 1-3) 08/17/18 11:00 09/13/18 06:44 Acetaminophen (Tylenol) 650 mg Q6H PRN NG Temp > 100.5 08/17/18 11:00 09/13/18 08:59 08/19/18 00:49 Acetaminophen/ Hydrocodone Bitart ([place] 5/325) 1 tab Q4H PRN NG For Pain 08/17/18 10:45 08/21/18 06:44 Amiodarone HCl (Cordarone) 200 mg DAILY NG 08/21/18 09:00 09/19/18 08:59 Apixaban (Eliquis) 2.5 mg Q12HR NG 08/17/18 21:00 09/13/18 08:59 08/20/18 08:49 Aripiprazole (Abilify) 5 mg BID ORAL 08/14/18 09:00 09/13/18 08:59 08/20/18 08:48 Barium Sulfate (Readi-Cat 2) 450 ml NOW PRN ORAL Radiology Procedure 08/18/18 15:30 08/20/18 15:25 Dextrose/ Electrolytes 1,000 ml @ 75 mls/hr [id number] IV 08/17/18 11:30 09/16/18 11:29 08/19/18 17:13 Digoxin (Lanoxin) 0.125 mg DAILY NG 08/21/18 09:00 09/19/18 08:59 Gabapentin (Neurontin) 100 mg THREE TIMES A DAY NG 08/17/18 13:00 09/13/18 12:59 08/20/18 13:35 Iopamidol (Isovue-300 100ml) 100 ml NOW PRN INJ Radiology Procedure 08/18/18 15:30 08/20/18 15:29 Isoniazid (Inh) 300 mg DAILY NG 08/18/18 09:00 09/13/18 08:59 08/20/18 08:49 Lactobacillus Acidophilus (Culturelle) 1 tab THREE TIMES A DAY NG 08/20/18 13:00 09/18/18 08:59 08/20/18 13:35 Magnesium Hydroxide (Mom) 30 ml BEDTIME NG 08/17/18 21:00 09/13/18 20:59 08/19/18 23:33 Meropenem 1 gm/ Sodium Chloride 55 ml @ 110 mls/hr Q8H IVPB 08/17/18 21:00 08/22/18 20:59 08/20/18 14:20 Metoprolol Tartrate (Lopressor) 25 mg Q12HR NG 08/20/18 21:00 09/18/18 20:59 Metoprolol Tartrate (Lopressor) 25 mg Q12HR NG 08/20/18 21:00 09/18/18 20:59 Midodrine (Pro-Amatine) 5 mg THREE TIMES A DAY NG 08/17/18 13:00 09/13/18 08:59 08/20/18 13:34 Pyridoxine HCl (Vitamin B6) 50 mg DAILY NG 08/18/18 09:00 09/13/18 08:59 08/20/18 08:48 Sodium Hypochlorite (Dakin's Quarter Strength) 1 applic DAILY TOPIC 08/14/18 16:00 09/13/18 15:59 08/20/18 09:05 Vancomycin HCl (Firvanq) 250 mg FOUR TIMES A DAY NG 08/17/18 13:00 08/29/18 23:59 08/20/18 13:35 Vitamin B Complex/ Vit C/Folic Acid (Nephrovite) 1 tab DAILY NG 08/18/18 09:00 09/13/18 08:59 08/20/18 08:49 Zinc Sulfate (Zinc Sulfate) 220 mg DAILY NG 08/18/18 09:00 09/13/18 08:59 08/20/18 08:49 Minerva Montesinos MD Aug 20, 2018 14:28
--- NOTE | 2018-08-20 15:53 | Internal Med Progress Note ---
Subjective Date of Service: Aug 20, 2018 Physician Name Daniel Jackson Attending Physician Pedro Caban MD Current Medications Medications (Trade) Dose Ordered Sig/Erlin Route PRN Reason Start Time Stop Time Status Last Admin Dose Admin Acetaminophen (Tylenol) 650 mg Q4H PRN NG Mild Pain (Pain Scale 1-3) 08/17/18 11:00 09/13/18 06:44 Acetaminophen (Tylenol) 650 mg Q6H PRN NG Temp > 100.5 08/17/18 11:00 09/13/18 08:59 08/19/18 00:49 Acetaminophen/ Hydrocodone Bitart ([place] 5/325) 1 tab Q4H PRN NG For Pain 08/17/18 10:45 08/21/18 06:44 Amiodarone HCl (Cordarone) 200 mg DAILY NG 08/21/18 09:00 09/19/18 08:59 Apixaban (Eliquis) 2.5 mg Q12HR NG 08/17/18 21:00 09/13/18 08:59 08/20/18 08:49 Aripiprazole (Abilify) 5 mg BID ORAL 08/14/18 09:00 09/13/18 08:59 08/20/18 08:48 Dextrose/ Electrolytes 1,000 ml @ 75 mls/hr [id number] IV 08/17/18 11:30 09/16/18 11:29 08/19/18 17:13 Digoxin (Lanoxin) 0.125 mg DAILY NG 08/21/18 09:00 09/19/18 08:59 Gabapentin (Neurontin) 100 mg THREE TIMES A DAY NG 08/17/18 13:00 09/13/18 12:59 08/20/18 13:35 Isoniazid (Inh) 300 mg DAILY NG 08/18/18 09:00 09/13/18 08:59 08/20/18 08:49 Lactobacillus Acidophilus (Culturelle) 1 tab THREE TIMES A DAY NG 08/20/18 13:00 09/18/18 08:59 08/20/18 13:35 Magnesium Hydroxide (Mom) 30 ml BEDTIME NG 08/17/18 21:00 09/13/18 20:59 08/19/18 23:33 Meropenem 1 gm/ Sodium Chloride 55 ml @ 110 mls/hr Q8H IVPB 08/17/18 21:00 08/22/18 20:59 08/20/18 14:20 Metoprolol Tartrate (Lopressor) 25 mg Q12HR NG 08/20/18 21:00 09/18/18 20:59 Metoprolol Tartrate (Lopressor) 25 mg Q12HR NG 08/20/18 21:00 09/18/18 20:59 Midodrine (Pro-Amatine) 5 mg THREE TIMES A DAY NG 08/17/18 13:00 09/13/18 08:59 08/20/18 13:34 Potassium Chloride 100 ml @ 100 mls/hr Q1HR IVPB 08/20/18 15:00 08/20/18 18:59 08/20/18 15:35 Pyridoxine HCl (Vitamin B6) 50 mg DAILY NG 08/18/18 09:00 09/13/18 08:59 08/20/18 08:48 Sodium Hypochlorite (Dakin's Quarter Strength) 1 applic DAILY TOPIC 08/14/18 16:00 09/13/18 15:59 08/20/18 09:05 Vancomycin HCl (Firvanq) 250 mg FOUR TIMES A DAY NG 08/17/18 13:00 08/29/18 23:59 08/20/18 13:35 Vitamin B Complex/ Vit C/Folic Acid (Nephrovite) 1 tab DAILY NG 08/18/18 09:00 09/13/18 08:59 08/20/18 08:49 Zinc Sulfate (Zinc Sulfate) 220 mg DAILY NG 08/18/18 09:00 09/13/18 08:59 08/20/18 08:49 Allergies: Coded Allergies: MILK (Verified Allergy, Unknown, 02/02/18) ROS Limited/Unobtainable: Yes Subjective 68 YO M admitted with fever and leukocytosis. Now Sepsis and C. Difficile colitis/diarrhea. Cover for Int Med-Dr Caban. Objective Last Vital Signs Date Time Temp Pulse Resp B/P (MAP) Pulse Ox O2 Delivery O2 Flow Rate FiO2 08/20/18 09:04 88 112/75 08/20/18 09:00 Nasal Cannula 2.0 08/20/18 08:00 98.4 20 95 08/18/18 19:31 28 Laboratory Tests Test 08/20/18 13:35 White Blood Count 13.9 K/UL (4.8-10.8) H Red Blood Count 2.91 M/UL (4.70-6.10) L Hemoglobin 9.1 G/DL (14.2-18.0) L Hematocrit 28.1 % (42.0-52.0) L Mean Corpuscular Volume 97 FL (80-99) Mean Corpuscular Hemoglobin 31.3 PG (27.0-31.0) H Mean Corpuscular Hemoglobin Concent 32.4 G/DL (32.0-36.0) Red Cell Distribution Width 15.3 % (11.6-14.8) H Platelet Count 158 K/UL (150-450) Mean Platelet Volume 5.7 FL (6.5-10.1) L Neutrophils (%) (Auto) 81.1 % (45.0-75.0) H Lymphocytes (%) (Auto) 13.5 % (20.0-45.0) L Monocytes (%) (Auto) 4.2 % (1.0-10.0) Eosinophils (%) (Auto) 0.6 % (0.0-3.0) Basophils (%) (Auto) 0.5 % (0.0-2.0) Sodium Level 145 MMOL/L (136-145) Potassium Level 2.7 MMOL/L (3.5-5.1) *L Chloride Level 114 MMOL/L (98-107) H Carbon Dioxide Level 25 MMOL/L (21-32) Anion Gap 7 mmol/L (5-15) Blood Urea Nitrogen 13 mg/dL (7-18) Creatinine 0.5 MG/DL (0.55-1.30) L Estimat Glomerular Filtration Rate > 60 mL/min (>60) Glucose Level 131 MG/DL (74-106) H Calcium Level 7.1 MG/DL (8.5-10.1) L Microbiology Date/Time Source Procedure Growth Status 08/17/18 17:45 Blood Blood Culture - Preliminary Resulted 08/17/18 17:30 Blood Blood Culture - Preliminary Resulted Intake and Output 08/19/18 08/20/18 19:00 07:00 Intake Total 450 ml Balance 450 ml IV Total 450 ml # Voids 1 # Bowel Movements 1 1 Objective General Appearance: WD/WN, no apparent distress, lethargic EENT: PERRL/EOMI, normal ENT inspection Neck: non-tender, normal alignment, supple, normal inspection Cardiovascular: normal peripheral pulses, normal rate, regular rhythm, no gallop/murmur, no JVD Respiratory/Chest: chest wall non-tender, lungs clear, normal breath sounds, no respiratory distress, no accessory muscle use Abdomen: normal bowel sounds, non tender, soft, no organomegaly, no mass Extremities: normal range of motion, non-tender 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 Continue zosyn and meropenem per ID. 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 (5) Renal failure (ARF), acute on chronic (6) Decubitus ulcer Assessment & Plan: Await debridement per surgery-see note (7) Bipolar II disorder (8) Leukocytosis (9) Clostridium difficile colitis Assessment & Plan: Continue oral vanco per ID (10) CVA (cerebral vascular accident) (11) Acute metabolic encephalopathy (12) HTN (hypertension) (13) CAD (coronary artery disease) (14) Atrial fibrillation Assessment & Plan: Continue eliquis (15) Pneumonia Assessment & Plan: Continue INH per ID-see note (16) Hypernatremia Assessment & Plan: continue D5NS + KCL (17) Hypokalemia Assessment & Plan: Cont D5NS +Kcl Status: not improved Daniel Jackson MD Aug 20, 2018 15:53
[2018-08-20 16:00] VITALS: BP 125/76
[2018-08-20 20:00] VITALS: BP 125/64
[2018-08-20] MEDS ORDERED: HYDROcodone/Acetamin 5/325 tab NG PRN (20:00)
[2018-08-20] MEDS: Milk of Magnesia 30ml Ud NG SCH (21:00)
[2018-08-20] MEDS: Metoprolol 25mg tab NG SCH (21:00)
[2018-08-20] MEDS ORDERED: Metoprolol 25mg tab NG SCH (21:00)
[2018-08-21] VITALS: BP 125/64
[2018-08-21 04:00] VITALS: BP 137/66
[2018-08-21] MEDS: Meropenem 1 GM in NS 55 ML IVPB SCH ×3 (05:08→22:00)
[2018-08-21 08:00] VITALS: BP 130/73
[2018-08-21] MEDS: Eliquis 2.5mg tablet NG SCH ×2 (09:00→21:59)
[2018-08-21] MEDS: Metoprolol 25mg tab NG SCH ×2 (10:20→21:59)
[2018-08-21] MEDS: Amiodarone 200mg tab NG SCH (10:21)
[2018-08-21] MEDS: Vancomycin oral 125mg/2.5ml NG SCH ×4 (10:21→22:00)
[2018-08-21] MEDS: Digoxin 0.125mg tab NG SCH (10:22)
[2018-08-21] MEDS: Zinc Sulfate 220mg cap NG SCH (10:22)
[2018-08-21] MEDS: Isoniazid 300mg tab NG SCH (10:24)
[2018-08-21] MEDS: Nephrovite tab (Rena-Vite) NG SCH (10:24)
[2018-08-21] MEDS: Lactobacillus-GG tablet NG SCH ×3 (10:25→18:05)
[2018-08-21] MEDS: Pyridoxine 50mg tab NG SCH (10:25)
[2018-08-21] MEDS: Dakin's 0.125% Soln (Quarter Strength) 16oz TOPIC SCH (10:31)
[2018-08-21] MEDS: D5W w/KCl 20mEq 1,000 ML IV SCH (10:31)
[2018-08-21 10:40] LABS: BASOPHILS % (AUTO) 0.8 % (0.0-2.0); EOSINOPHILS % (AUTO) 0.3 % (0.0-3.0); HEMATOCRIT 28.7 % (42.0-52.0); HEMOGLOBIN 9.1 G/DL (14.2-18.0); LYMPHOCYTES % (AUTO) 18.6 % (20.0-45.0); MEAN CORPUSCULAR VOLUME 99 FL (80-99); NEUTROPHILS % (AUTO) 75.2 % (45.0-75.0); PLATELET COUNT 154 K/UL (150-450); RED BLOOD COUNT 2.91 M/UL (4.70-6.10); RED CELL DISTRIBUTION WIDTH 15.3 % (11.6-14.8); WHITE BLOOD COUNT 14.3 K/UL (4.8-10.8)
[2018-08-21 11:10] LABS: ALANINE AMINOTRANSFERASE 14 U/L (12-78); ALBUMIN/GLOBULIN RATIO 0.2 (1.0-2.7); ALKALINE PHOSPHATASE 219 U/L (46-116); ANION GAP 5 mmol/L (5-15); ASPARTATE AMINO TRANSFERASE 29 U/L (15-37); BILIRUBIN,TOTAL 0.4 MG/DL (0.2-1.0); BLOOD UREA NITROGEN 13 mg/dL (7-18); CALCIUM 7.2 MG/DL (8.5-10.1); CARBON DIOXIDE 25 MMOL/L (21-32); CHLORIDE 112 MMOL/L (98-107); CREATININE 0.5 MG/DL (0.55-1.30); PHOSPHORUS 1.2 MG/DL (2.5-4.9); POTASSIUM 2.9 MMOL/L (3.5-5.1); SODIUM 142 MMOL/L (136-145)
[2018-08-21 12:00] VITALS: BP 157/86
--- NOTE | 2018-08-21 12:00 | Consultation ---
DATE OF CONSULTATION: 08/18/2018 GASTROENTEROLOGY CONSULTATION CONSULTING PHYSICIAN: Gina Petersen M.D. CHIEF COMPLAINT: I was asked to see this patient by Dr. Pedro Caban for evaluation of Clostridium difficile colitis and abdominal distention. HISTORY OF PRESENT ILLNESS: The patient was a debilitated unfortunate 68-year-old man with multiple medical problems who had an admission in April and May to this hospital and discharged and now is back to the hospital due to abnormal lab tests. He has been here for about a week and has been diagnosed with Clostridium difficile colitis and other issues including bacteremia. The patient's abdomen is somewhat distended. The CT scan has been ordered. This consultation was generated regarding colitis and abdominal distention. The patient himself is confused and unable to provide history. PAST MEDICAL HISTORY: History of cerebrovascular accident, hypertension, bipolar disorder, coronary artery disease, status post bilateral [id number] amputations due to decubitus ulcers and osteomyelitis. MEDICATIONS: See the chart list for details. ALLERGIES: None. FAMILY HISTORY: Noncontributory. SOCIAL HISTORY: The patient is a long-term resident of a long-term facility. REVIEW OF SYSTEMS: Unobtainable. PHYSICAL EXAMINATION: GENERAL: Debilitated man with a nasogastric tube, somewhat confused, but arousable. HEENT: Normocephalic, atraumatic. Nasogastric tube is in place. NECK: Supple. CHEST: Clear to auscultation. CARDIOVASCULAR: Revealed a regular rate. ABDOMEN: Mildly to moderately distended, but soft and nontender. Good bowel sounds. No masses. No organomegaly. EXTREMITIES: Revealed bilateral [id number] amputations. NEUROLOGIC: Notable for dementia. LABORATORY DATA: Noted. ASSESSMENT: This patient does have C Diff colitis and bacteremia. The latter is possibly due to bacterial translocation via colonic wall with breakdown of mucosal barrier. His abdomen is somewhat distended, but I believe this may be due to dysmotility and immobility rather than the toxic megacolon. He does not have the full blown picture of shock and leukocytosis typically seen with toxic megacolon. As such, I would continue the current medication treatment. His broad-spectrum antibiotics should be tapered feasible. The CT scan has been ordered, and this will be followed up, and his exam will be followed closely. RECOMMENDATIONS: Per above discussion and per orders written in the chart. Thank you for asking me to participate in the care of this patient. Gina Petersen M.D. DR: MADDI JOB#: [id number] CC: GEORGETTE
--- NOTE | 2018-08-21 12:38 | Pulmonology Progress Note ---
Assessment/Plan Problems: (1) Clostridium difficile colitis (2) Acute metabolic encephalopathy (3) Sepsis (4) Decubitus skin ulcer (5) UTI (urinary tract infection) (6) Anemia (7) CVA (cerebral vascular accident) Assessment/Plan unchanged mental status, failed swallow study on NG tube telemetry records reviewed, still tachy with PAC's and PVC's K and phos supplement iv abx iv fluids check electrolytes continue current meds. dvt prophylaxis. Subjective ROS Limited/Unobtainable: No Constitutional: Reports: no symptoms HEENT: Repors: no symptoms Respiratory: Reports: no symptoms Allergies: Coded Allergies: MILK (Verified Allergy, Unknown, 02/02/18) Objective Last 24 Hour Vital Signs Date Time Temp Pulse Resp B/P (MAP) Pulse Ox O2 Delivery O2 Flow Rate FiO2 08/21/18 10:22 113 08/21/18 10:20 113 130/74 08/21/18 04:00 93 08/21/18 04:00 99.7 93 20 137/66 (89) 95 08/21/18 00:00 99.0 86 20 125/64 (84) 96 08/21/18 00:00 92 08/20/18 23:15 Nasal Cannula 2.0 28 08/20/18 23:15 97 Nasal Cannula 2.0 28 08/20/18 21:00 84 125/64 08/20/18 21:00 Nasal Cannula 2.0 08/20/18 20:00 99.0 84 20 125/64 (84) 99 08/20/18 20:00 95 08/20/18 16:00 84 08/20/18 16:00 99.5 83 20 125/76 (92) 96 Intake and Output 08/20/18 08/21/18 18:59 06:59 # Voids 3 General Appearance: WD/WN HEENT: normocephalic, atraumatic Respiratory/Chest: chest wall non-tender, lungs clear Cardiovascular: normal peripheral pulses, normal rate Genitourinary: normal external genitalia Extremities: no cyanosis Skin: no lesions 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 Laboratory Tests 08/20/18 13:35: White Blood Count 13.9H, Red Blood Count 2.91L, Hemoglobin 9.1L, Hematocrit 28.1L, Mean Corpuscular Volume 97, Mean Corpuscular Hemoglobin 31.3H, Mean Corpuscular Hemoglobin Concent 32.4, Red Cell Distribution Width 15.3H, Platelet Count 158, Mean Platelet Volume 5.7L, Neutrophils (%) (Auto) 81.1H, Lymphocytes (%) (Auto) 13.5L, Monocytes (%) (Auto) 4.2, Eosinophils (%) (Auto) 0.6, Basophils (%) (Auto) 0.5, Sodium Level 145, Potassium Level 2.7*L, Chloride Level 114H, Carbon Dioxide Level 25, Anion Gap 7, Blood Urea Nitrogen 13, Creatinine 0.5L, Estimat Glomerular Filtration Rate > 60, Glucose Level 131H , Calcium Level 7.1L 08/21/18 10:30: White Blood Count 14.3H, Red Blood Count 2.91L, Hemoglobin 9.1L, Hematocrit 28.7L, Mean Corpuscular Volume 99, Mean Corpuscular Hemoglobin 31.3H, Mean Corpuscular Hemoglobin Concent 31.7L, Red Cell Distribution Width 15.3H, Platelet Count 154, Mean Platelet Volume 5.4L, Neutrophils (%) (Auto) 75.2H, Lymphocytes (%) (Auto) 18.6L, Monocytes (%) (Auto) 5.0, Eosinophils (%) (Auto) 0.3, Basophils (%) (Auto) 0.8, Sodium Level 142, Potassium Level 2.9L, Chloride Level 112H, Carbon Dioxide Level 25, Anion Gap 5, Blood Urea Nitrogen 13, Creatinine 0.5L, Estimat Glomerular Filtration Rate > 60, Glucose Level 145H, Calcium Level 7.2L, Erythrocyte Sedimentation Rate 16, Phosphorus Level 1.2L, Magnesium Level 1.8, Total Bilirubin 0.4, Aspartate Amino Transf (AST/SGOT) 29, Alanine Aminotransferase (ALT/SGPT) 14, Alkaline Phosphatase 219H, C-Reactive Protein, Quantitative 11.4H, Total Protein 5.2L, Albumin 1.0L, Globulin 4.2, Albumin/Globulin Ratio 0.2L Current Medications Medications (Trade) Dose Ordered Sig/Erlin Route PRN Reason Start Time Stop Time Status Last Admin Dose Admin Acetaminophen (Tylenol) 650 mg Q4H PRN NG Mild Pain (Pain Scale 1-3) 08/17/18 11:00 09/13/18 06:44 Acetaminophen (Tylenol) 650 mg Q6H PRN NG Temp > 100.5 08/17/18 11:00 09/13/18 08:59 08/19/18 00:49 Acetaminophen/ Hydrocodone Bitart ([place] 5/325) 1 tab Q4H PRN NG For Pain 08/20/18 20:00 08/24/18 19:59 Amiodarone HCl (Cordarone) 200 mg DAILY NG 08/21/18 09:00 09/19/18 08:59 08/21/18 10:21 Apixaban (Eliquis) 2.5 mg Q12HR NG 08/17/18 21:00 09/13/18 08:59 08/21/18 09:00 Aripiprazole (Abilify) 5 mg BID ORAL 08/14/18 09:00 09/13/18 08:59 08/21/18 10:23 Dextrose/ Electrolytes 1,000 ml @ 75 mls/hr [id number] IV 08/17/18 11:30 09/16/18 11:29 08/21/18 10:31 Digoxin (Lanoxin) 0.125 mg DAILY NG 08/21/18 09:00 09/19/18 08:59 08/21/18 10:22 Gabapentin (Neurontin) 100 mg THREE TIMES A DAY NG 08/17/18 13:00 09/13/18 12:59 08/21/18 10:25 Isoniazid (Inh) 300 mg DAILY NG 08/18/18 09:00 09/13/18 08:59 08/21/18 10:24 Lactobacillus Acidophilus (Culturelle) 1 tab THREE TIMES A DAY NG 08/20/18 13:00 09/18/18 08:59 08/21/18 10:25 Magnesium Hydroxide (Mom) 30 ml BEDTIME NG 08/17/18 21:00 09/13/18 20:59 08/20/18 21:00 Meropenem 1 gm/ Sodium Chloride 55 ml @ 110 mls/hr Q8H IVPB 08/17/18 21:00 08/22/18 20:59 08/21/18 05:08 Metoprolol Tartrate (Lopressor) 25 mg Q12HR NG 08/20/18 21:00 09/18/18 20:59 08/21/18 10:20 Midodrine (Pro-Amatine) 5 mg THREE TIMES A DAY NG 08/17/18 13:00 09/13/18 08:59 08/21/18 10:24 Pyridoxine HCl (Vitamin B6) 50 mg DAILY NG 08/18/18 09:00 09/13/18 08:59 08/21/18 10:25 Sodium Hypochlorite (Dakin's Quarter Strength) 1 applic DAILY TOPIC 08/14/18 16:00 09/13/18 15:59 08/21/18 10:31 Vancomycin HCl (Firvanq) 250 mg FOUR TIMES A DAY NG 08/17/18 13:00 08/29/18 23:59 08/21/18 10:21 Vitamin B Complex/ Vit C/Folic Acid (Nephrovite) 1 tab DAILY NG 08/18/18 09:00 09/13/18 08:59 08/21/18 10:24 Zinc Sulfate (Zinc Sulfate) 220 mg DAILY NG 08/18/18 09:00 09/13/18 08:59 08/21/18 10:22 Minerva Montesinos MD Aug 21, 2018 12:38
--- NOTE | 2018-08-21 14:19 | Infectious Diseases Prog Note ---
Assessment/Plan Assessment/Plan Assessment: Sepsis-2ry to bacteremia (likley from GI translocation ) -CT abd/p" Colonic mural thickening consistent with some form of colitis. No pneumatosis or extraluminal air. C Diff -Cdif toxin a/b + -Bcx 08/21 GNR, 08/21 ESBL Proteus mirabilis (S Ertapenem, Zosyn), 08/21 Group C strep ; 08/15 Bcx 07/24 Prevotella L . (R Clinda, Unasyn; S flagyl) ;08/17 Bcx 07/24 GNR -u/a no pyuria -CXR: Suspect a small left pleural effusion. Mild basal atelectasis -influenza sc neg Fever, improving Leukocytosis , Persistent Hx of lung cavitary lesion/ PNA- suspect likely to aspiration; lower suspicion for TB and/or fungal etiologies -06/08 CT chest: * Interval resolution of the cavitary component associated with the previously described anterior right upper lobe opacity. It is slightly decreased in size and more nodular in appearance on today's exam. Additional patchy opacities in the posterior right upper lobe are also slightly decreased in size and appear more nodular (previously were groundglass). Findings likely related to evolving infectious or inflammatory lesions however continued follow-up is recommended to assure resolution/exclude the possibility of neoplastic etiologies. -CT c/a/p: 10 mm opacity in the peripheral anterolateral right upper lobe with small central cavitation. Patchy groundglass opacity in the posterior right upper lobe. Suspect that these represent inflammatory/infectious lesions, but neoplastic etiology of either is certainly possible. Large left and moderate right pleural effusions. Resultant compressive atelectasis of portions of the lower lobes. 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 Hypertension. Multiple decubiti ulcers (elbow, sacral) -not infected Bipolar disorder. Coronary artery disease. VRE and MRSA colonized Plan: -Continue Meropenem #5 (abx d #01/31) given ESBL bacteremia -Continue PO Vancomycin #/ for Cdiff -Cont INH for latent TB -08/17 SP Zosyn #3, Daptomycin #3 -08/15 SP Tamiflu #2, Ceftriaxone #2 -08/14 SP Cefepime and LEvaquin x1 - Repeat 2 sets of Bcx -Monitor CBC/CMP, temperatures -wound care -aspiration precautions -Sx f/u Subjective Allergies: Coded Allergies: MILK (Verified Allergy, Unknown, 02/02/18) Subjective afebrile in 36hrs bacteremic leukocytosis persistent Objective Vital Signs Last 24 Hour Vital Signs Date Time Temp Pulse Resp B/P (MAP) Pulse Ox O2 Delivery O2 Flow Rate FiO2 08/21/18 12:00 67 08/21/18 12:00 98.6 65 18 157/86 (109) 98 08/21/18 10:22 113 08/21/18 10:20 113 130/74 08/21/18 09:59 Nasal Cannula 2.0 28 08/21/18 09:59 98 Nasal Cannula 2.0 28 08/21/18 09:00 Nasal Cannula 2.0 08/21/18 08:00 97.7 113 20 130/73 (92) 100 08/21/18 08:00 120 08/21/18 04:00 93 08/21/18 04:00 99.7 93 20 137/66 (89) 95 08/21/18 00:00 99.0 86 20 125/64 (84) 96 08/21/18 00:00 92 08/20/18 23:15 Nasal Cannula 2.0 28 08/20/18 23:15 97 Nasal Cannula 2.0 28 08/20/18 21:00 84 125/64 08/20/18 21:00 Nasal Cannula 2.0 08/20/18 20:00 99.0 84 20 125/64 (84) 99 08/20/18 20:00 95 08/20/18 16:00 84 08/20/18 16:00 99.5 83 20 125/76 (92) 96 Height (Feet): 6 Height (Inches): 0.40 Weight (Pounds): 150 Objective General appearance: alert, cooperative, no distress, appears stated age Head: Normocephalic, without obvious abnormality, atraumatic Eyes: conjunctivae/corneas clear. PERRL, EOM's intact. Fundi benign Throat: Lips, mucosa, and tongue normal. Teeth and gums normal Neck: supple, symmetrical, trachea midline, no adenopathy, thyroid: not enlarged, symmetric, no tenderness/mass/nodules, no carotid bruit and no JVD Lungs: clear to auscultation bilaterally Heart: regular rate and rhythm, S1, S2 normal, no murmur, click, rub or gallop Abdomen: soft, non-tender. Bowel sounds normal. No masses, no organomegaly Extremities: extremities normal, atraumatic, no cyanosis or edema/ s/p bilateral aka Pulses: 2+ and symmetric Skin: Skin color, texture, turgor normal. No rashes or lesions. multiple large decubitus ulcers. Neurologic: Grossly normal Laboratory Tests Test 08/21/18 10:30 White Blood Count 14.3 K/UL (4.8-10.8) H Red Blood Count 2.91 M/UL (4.70-6.10) L Hemoglobin 9.1 G/DL (14.2-18.0) L Hematocrit 28.7 % (42.0-52.0) L Mean Corpuscular Volume 99 FL (80-99) Mean Corpuscular Hemoglobin 31.3 PG (27.0-31.0) H Mean Corpuscular Hemoglobin Concent 31.7 G/DL (32.0-36.0) L Red Cell Distribution Width 15.3 % (11.6-14.8) H Platelet Count 154 K/UL (150-450) Mean Platelet Volume 5.4 FL (6.5-10.1) L Neutrophils (%) (Auto) 75.2 % (45.0-75.0) H Lymphocytes (%) (Auto) 18.6 % (20.0-45.0) L Monocytes (%) (Auto) 5.0 % (1.0-10.0) Eosinophils (%) (Auto) 0.3 % (0.0-3.0) Basophils (%) (Auto) 0.8 % (0.0-2.0) Erythrocyte Sedimentation Rate 16 MM/HR (0-20) Sodium Level 142 MMOL/L (136-145) Potassium Level 2.9 MMOL/L (3.5-5.1) L Chloride Level 112 MMOL/L (98-107) H Carbon Dioxide Level 25 MMOL/L (21-32) Anion Gap 5 mmol/L (5-15) Blood Urea Nitrogen 13 mg/dL (7-18) Creatinine 0.5 MG/DL (0.55-1.30) L Estimat Glomerular Filtration Rate > 60 mL/min (>60) Glucose Level 145 MG/DL (74-106) H Calcium Level 7.2 MG/DL (8.5-10.1) L Phosphorus Level 1.2 MG/DL (2.5-4.9) L Magnesium Level 1.8 MG/DL (1.8-2.4) Total Bilirubin 0.4 MG/DL (0.2-1.0) Aspartate Amino Transf (AST/SGOT) 29 U/L (15-37) Alanine Aminotransferase (ALT/SGPT) 14 U/L (12-78) Alkaline Phosphatase 219 U/L (46-116) H C-Reactive Protein, Quantitative 11.4 mg/dL (0.00-0.90) H Total Protein 5.2 G/DL (6.4-8.2) L Albumin 1.0 G/DL (3.4-5.0) L Globulin 4.2 g/dL Albumin/Globulin Ratio 0.2 (1.0-2.7) L Current Medications Medications (Trade) Dose Ordered Sig/Erlin Route PRN Reason Start Time Stop Time Status Last Admin Dose Admin Acetaminophen (Tylenol) 650 mg Q4H PRN NG Mild Pain (Pain Scale 1-3) 08/17/18 11:00 09/13/18 06:44 Acetaminophen (Tylenol) 650 mg Q6H PRN NG Temp > 100.5 08/17/18 11:00 09/13/18 08:59 08/19/18 00:49 Acetaminophen/ Hydrocodone Bitart ([place] 5/325) 1 tab Q4H PRN NG For Pain 08/20/18 20:00 08/24/18 19:59 Amiodarone HCl (Cordarone) 200 mg DAILY NG 08/21/18 09:00 09/19/18 08:59 08/21/18 10:21 Apixaban (Eliquis) 2.5 mg Q12HR NG 08/17/18 21:00 09/13/18 08:59 08/21/18 09:00 Aripiprazole (Abilify) 5 mg BID ORAL 08/14/18 09:00 09/13/18 08:59 08/21/18 10:23 Dextrose/ Electrolytes 1,000 ml @ 75 mls/hr [id number] IV 08/17/18 11:30 09/16/18 11:29 08/21/18 10:31 Digoxin (Lanoxin) 0.125 mg DAILY NG 08/21/18 09:00 09/19/18 08:59 08/21/18 10:22 Gabapentin (Neurontin) 100 mg THREE TIMES A DAY NG 08/17/18 13:00 09/13/18 12:59 08/21/18 14:11 Isoniazid (Inh) 300 mg DAILY NG 08/18/18 09:00 09/13/18 08:59 08/21/18 10:24 Lactobacillus Acidophilus (Culturelle) 1 tab THREE TIMES A DAY NG 08/20/18 13:00 09/18/18 08:59 08/21/18 14:06 Magnesium Hydroxide (Mom) 30 ml BEDTIME NG 08/17/18 21:00 09/13/18 20:59 08/20/18 21:00 Meropenem 1 gm/ Sodium Chloride 55 ml @ 110 mls/hr Q8H IVPB 08/17/18 21:00 08/22/18 20:59 08/21/18 14:04 Metoprolol Tartrate (Lopressor) 25 mg Q12HR NG 08/20/18 21:00 09/18/18 20:59 08/21/18 10:20 Midodrine (Pro-Amatine) 5 mg THREE TIMES A DAY NG 08/17/18 13:00 09/13/18 08:59 08/21/18 14:07 Potassium Chloride 40 meq/ Sodium Chloride 570 ml @ 142.5 mls/ hr ONCE IVPB 08/21/18 15:00 08/21/18 20:00 Pyridoxine HCl (Vitamin B6) 50 mg DAILY NG 08/18/18 09:00 09/13/18 08:59 08/21/18 10:25 Sodium Hypochlorite (Dakin's Quarter Strength) 1 applic DAILY TOPIC 08/14/18 16:00 09/13/18 15:59 08/21/18 10:31 Sodium Phosphate 30 mm/Sodium Chloride 285 ml @ 47.5 mls/hr ONCE IV 08/21/18 15:00 08/21/18 21:00 Vancomycin HCl (Firvanq) 250 mg FOUR TIMES A DAY NG 08/17/18 13:00 08/29/18 23:59 08/21/18 14:06 Vitamin B Complex/ Vit C/Folic Acid (Nephrovite) 1 tab DAILY NG 08/18/18 09:00 09/13/18 08:59 08/21/18 10:24 Zinc Sulfate (Zinc Sulfate) 220 mg DAILY NG 08/18/18 09:00 09/13/18 08:59 08/21/18 10:22 Alma Elkins M.D. Aug 21, 2018 14:19
[2018-08-21] MEDS ORDERED: Sodium Phosphate 30 MM in NS 275 ML IV SCH (15:00)
[2018-08-21] MEDS ORDERED: Potassium Chloride 40 MEQ in Sodium Chloride 550 ML IVPB SCH (15:00)
--- NOTE | 2018-08-21 15:36 | Surgery Progress Note ---
Surgery Progress Note Subjective Additional Comments no acute events. labs noted. leukocytosis. hypo K, not doing well. Objective Last 24 Hour Vital Signs Date Time Temp Pulse Resp B/P (MAP) Pulse Ox O2 Delivery O2 Flow Rate FiO2 08/21/18 12:00 67 08/21/18 12:00 98.6 65 18 157/86 (109) 98 08/21/18 10:22 113 08/21/18 10:20 113 130/74 08/21/18 09:59 Nasal Cannula 2.0 28 08/21/18 09:59 98 Nasal Cannula 2.0 28 08/21/18 09:00 Nasal Cannula 2.0 08/21/18 08:00 97.7 113 20 130/73 (92) 100 08/21/18 08:00 120 08/21/18 04:00 93 08/21/18 04:00 99.7 93 20 137/66 (89) 95 08/21/18 00:00 99.0 86 20 125/64 (84) 96 08/21/18 00:00 92 08/20/18 23:15 Nasal Cannula 2.0 28 08/20/18 23:15 97 Nasal Cannula 2.0 28 08/20/18 21:00 84 125/64 08/20/18 21:00 Nasal Cannula 2.0 08/20/18 20:00 99.0 84 20 125/64 (84) 99 08/20/18 20:00 95 08/20/18 16:00 84 08/20/18 16:00 99.5 83 20 125/76 (92) 96 I&O Intake and Output 08/20/18 08/21/18 19:00 07:00 # Voids 3 Dressing: saturated Wound: other Drains: other Cardiovascular: RSR Respiratory: clear Abdomen: soft, non-tender, present bowel sounds, non-distended Extremities: other Laboratory Tests Test 08/21/18 10:30 White Blood Count 14.3 K/UL (4.8-10.8) H Red Blood Count 2.91 M/UL (4.70-6.10) L Hemoglobin 9.1 G/DL (14.2-18.0) L Hematocrit 28.7 % (42.0-52.0) L Mean Corpuscular Volume 99 FL (80-99) Mean Corpuscular Hemoglobin 31.3 PG (27.0-31.0) H Mean Corpuscular Hemoglobin Concent 31.7 G/DL (32.0-36.0) L Red Cell Distribution Width 15.3 % (11.6-14.8) H Platelet Count 154 K/UL (150-450) Mean Platelet Volume 5.4 FL (6.5-10.1) L Neutrophils (%) (Auto) 75.2 % (45.0-75.0) H Lymphocytes (%) (Auto) 18.6 % (20.0-45.0) L Monocytes (%) (Auto) 5.0 % (1.0-10.0) Eosinophils (%) (Auto) 0.3 % (0.0-3.0) Basophils (%) (Auto) 0.8 % (0.0-2.0) Erythrocyte Sedimentation Rate 16 MM/HR (0-20) Sodium Level 142 MMOL/L (136-145) Potassium Level 2.9 MMOL/L (3.5-5.1) L Chloride Level 112 MMOL/L (98-107) H Carbon Dioxide Level 25 MMOL/L (21-32) Anion Gap 5 mmol/L (5-15) Blood Urea Nitrogen 13 mg/dL (7-18) Creatinine 0.5 MG/DL (0.55-1.30) L Estimat Glomerular Filtration Rate > 60 mL/min (>60) Glucose Level 145 MG/DL (74-106) H Calcium Level 7.2 MG/DL (8.5-10.1) L Phosphorus Level 1.2 MG/DL (2.5-4.9) L Magnesium Level 1.8 MG/DL (1.8-2.4) Total Bilirubin 0.4 MG/DL (0.2-1.0) Aspartate Amino Transf (AST/SGOT) 29 U/L (15-37) Alanine Aminotransferase (ALT/SGPT) 14 U/L (12-78) Alkaline Phosphatase 219 U/L (46-116) H C-Reactive Protein, Quantitative 11.4 mg/dL (0.00-0.90) H Total Protein 5.2 G/DL (6.4-8.2) L Albumin 1.0 G/DL (3.4-5.0) L Globulin 4.2 g/dL Albumin/Globulin Ratio 0.2 (1.0-2.7) L Plan Problems: (1) Sepsis Assessment & Plan: IV abx trend labs will monitor wounds possible debridement spoke with daughter. consent obtained. will plan for soon but needs medical care first. +c diff. +blood cultures. electrolytes off. needs replacement. (2) Decubitus skin ulcer Assessment & Plan: Pt presented on admission with multiple full thickness pressure injuries. Full thickness pressure injury to L elbow.Base of wound wound with 25% fibrinous slough,75% pink granulation noted.(+) maceration along borders. erythema without elevation in skin temp periwound(L)1.5cm x (W)1.8cm x(D)0.3cm. Full thickness pressure injury R trochanter .Base of wound with pink granulation.Edges adherent to base of wound .No odor or exudate noted.Darker skin tone without induration periwound. (L)4.5cm x (W)6.3cm x (D) 3cm.Undermining 12-3 by 3cm @12o'clock. Full thickness pressure injury to R ischium .Wound is malodorous.90% soft necrosis,10% pink noted at base of wound ,(+) epibole along edges .Periwound darker in skin tone and is indurated.(L)8.4cm x (W)4.3cm (D)2.5cm .Tunneling at 1o'clock by 3.6cm ,tunneling @5o'clock by 6.3cm. Full thickness sacral pressure injury with 80% soft necrosis ,20% pink granulation .Wound is malodorous with small amt brown exudate (L)8.5cm x (W)5cm x (D)2.5cm ,undermining 8-5 by 4.7cm @1o'clock. wounds with gross drainage poor nutritional status. prognosis concerning Tx.Plan: Cleanse R trochanter with Dakin's 0.125% candelaria. Loosely pack with Dakin's soaked kerlix .Cover with Optifoam drsg TID and prn. Cleanse R Ischial wound with Dakin's 0.125% candelaria.Loosely pack with Dakin's soaked kerlix. Cavilon Skin Barrier periwound. Cover with Optifoam drsg TID and prn. Cleanse Sacral wound with dakin's 0.125% candelaria.Loosely pack with Dakin's soaked kerlix.Cavilon Skin Barrier periwound.Cover with Optifoam drsg TID and prn. Cleanse L elbow with Dakin's 0.125% candelaria. Apply Dakin's moist 2x2 gauze. Cover with Optifoam drsg TID and prn. Quartet Air fluidized mattress. Reposition L side to back at least every 2hours or as tolerated. Goyo Osuna Aug 21, 2018 15:36
--- NOTE | 2018-08-21 15:56 | Cardiac Electrophysiology PN ---
Assessment/Plan Assessment/Plan 1. History of atrial fibrillation with rapid ventricular response. Continue Eliquis 2.5 mg bid, metoprolol 25 mg bid, digoxin and amiodarone 2. Fever and sepsis. Positive blood culture. IV antibiotics per Dr. Parker. Blood cultures today pending 3. History of dementia and psychosis. 4. 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 5. Sacral decubitus. 6. C. diff colitis. 7. Hypotension on Midodrine DW RN Subjective Subjective Having blood cultures. Remained in SR. Objective Last 24 Hour Vital Signs Date Time Temp Pulse Resp B/P (MAP) Pulse Ox O2 Delivery O2 Flow Rate FiO2 08/21/18 12:00 67 08/21/18 12:00 98.6 65 18 157/86 (109) 98 08/21/18 10:22 113 08/21/18 10:20 113 130/74 08/21/18 09:59 Nasal Cannula 2.0 28 08/21/18 09:59 98 Nasal Cannula 2.0 28 08/21/18 09:00 Nasal Cannula 2.0 08/21/18 08:00 97.7 113 20 130/73 (92) 100 08/21/18 08:00 120 08/21/18 04:00 93 08/21/18 04:00 99.7 93 20 137/66 (89) 95 08/21/18 00:00 99.0 86 20 125/64 (84) 96 08/21/18 00:00 92 08/20/18 23:15 Nasal Cannula 2.0 28 08/20/18 23:15 97 Nasal Cannula 2.0 28 08/20/18 21:00 84 125/64 08/20/18 21:00 Nasal Cannula 2.0 08/20/18 20:00 99.0 84 20 125/64 (84) 99 08/20/18 20:00 95 08/20/18 16:00 84 08/20/18 16:00 99.5 83 20 125/76 (92) 96 Intake and Output 08/20/18 08/21/18 18:59 06:59 # Voids 3 Laboratory Tests Test 08/21/18 10:30 White Blood Count 14.3 K/UL (4.8-10.8) H Red Blood Count 2.91 M/UL (4.70-6.10) L Hemoglobin 9.1 G/DL (14.2-18.0) L Hematocrit 28.7 % (42.0-52.0) L Mean Corpuscular Volume 99 FL (80-99) Mean Corpuscular Hemoglobin 31.3 PG (27.0-31.0) H Mean Corpuscular Hemoglobin Concent 31.7 G/DL (32.0-36.0) L Red Cell Distribution Width 15.3 % (11.6-14.8) H Platelet Count 154 K/UL (150-450) Mean Platelet Volume 5.4 FL (6.5-10.1) L Neutrophils (%) (Auto) 75.2 % (45.0-75.0) H Lymphocytes (%) (Auto) 18.6 % (20.0-45.0) L Monocytes (%) (Auto) 5.0 % (1.0-10.0) Eosinophils (%) (Auto) 0.3 % (0.0-3.0) Basophils (%) (Auto) 0.8 % (0.0-2.0) Erythrocyte Sedimentation Rate 16 MM/HR (0-20) Sodium Level 142 MMOL/L (136-145) Potassium Level 2.9 MMOL/L (3.5-5.1) L Chloride Level 112 MMOL/L (98-107) H Carbon Dioxide Level 25 MMOL/L (21-32) Anion Gap 5 mmol/L (5-15) Blood Urea Nitrogen 13 mg/dL (7-18) Creatinine 0.5 MG/DL (0.55-1.30) L Estimat Glomerular Filtration Rate > 60 mL/min (>60) Glucose Level 145 MG/DL (74-106) H Calcium Level 7.2 MG/DL (8.5-10.1) L Phosphorus Level 1.2 MG/DL (2.5-4.9) L Magnesium Level 1.8 MG/DL (1.8-2.4) Total Bilirubin 0.4 MG/DL (0.2-1.0) Aspartate Amino Transf (AST/SGOT) 29 U/L (15-37) Alanine Aminotransferase (ALT/SGPT) 14 U/L (12-78) Alkaline Phosphatase 219 U/L (46-116) H C-Reactive Protein, Quantitative 11.4 mg/dL (0.00-0.90) H Total Protein 5.2 G/DL (6.4-8.2) L Albumin 1.0 G/DL (3.4-5.0) L Globulin 4.2 g/dL Albumin/Globulin Ratio 0.2 (1.0-2.7) L Objective HEAD AND NECK: no JVD. He has an NG tube. LUNGS: Have coarse rhonchi. CARDIOVASCULAR: Regular S1 and S2 with no gallop or murmur. ABDOMEN: Soft. EXTREMITIES: Bilateral above-knee amputation. Amandeep Arora MD Aug 21, 2018 15:56
[2018-08-21 16:00] VITALS: BP 133/92
--- NOTE | 2018-08-21 19:11 | General Progress Note ---
Assessment/Plan Assessment/Plan Assessment - C Difficile colitis - failed swallow eval - Malnutrition , NGT - s/p b/l AKA - anemia - bacteremia, leukocytosis Recommendations - continue Vanco PO - taper down broad spect abx when feasible - probiotics - elevate HOB - TF - Poor Px Subjective Allergies: Coded Allergies: MILK (Verified Allergy, Unknown, 02/02/18) Subjective above noted NGT feeds tolerated non interactive Objective Last 24 Hour Vital Signs Date Time Temp Pulse Resp B/P (MAP) Pulse Ox O2 Delivery O2 Flow Rate FiO2 08/21/18 16:00 79 08/21/18 16:00 98.8 92 20 133/92 (106) 100 08/21/18 12:00 67 08/21/18 12:00 98.6 65 18 157/86 (109) 98 08/21/18 10:22 113 08/21/18 10:20 113 130/74 08/21/18 09:59 Nasal Cannula 2.0 28 08/21/18 09:59 98 Nasal Cannula 2.0 28 08/21/18 09:00 Nasal Cannula 2.0 08/21/18 08:00 97.7 113 20 130/73 (92) 100 08/21/18 08:00 120 08/21/18 04:00 93 08/21/18 04:00 99.7 93 20 137/66 (89) 95 08/21/18 00:00 99.0 86 20 125/64 (84) 96 08/21/18 00:00 92 08/20/18 23:15 Nasal Cannula 2.0 28 08/20/18 23:15 97 Nasal Cannula 2.0 28 08/20/18 21:00 84 125/64 08/20/18 21:00 Nasal Cannula 2.0 08/20/18 20:00 99.0 84 20 125/64 (84) 99 08/20/18 20:00 95 Intake and Output 08/20/18 08/21/18 19:00 07:00 Intake Total 40 ml Balance 40 ml Tube Feeding 40 ml # Voids 3 Laboratory Tests 08/21/18 10:30: White Blood Count 14.3H, Red Blood Count 2.91L, Hemoglobin 9.1L, Hematocrit 28.7L, Mean Corpuscular Volume 99, Mean Corpuscular Hemoglobin 31.3H, Mean Corpuscular Hemoglobin Concent 31.7L, Red Cell Distribution Width 15.3H, Platelet Count 154, Mean Platelet Volume 5.4L, Neutrophils (%) (Auto) 75.2H, Lymphocytes (%) (Auto) 18.6L, Monocytes (%) (Auto) 5.0, Eosinophils (%) (Auto) 0.3, Basophils (%) (Auto) 0.8, Erythrocyte Sedimentation Rate 16, Sodium Level 142, Potassium Level 2.9L, Chloride Level 112H, Carbon Dioxide Level 25, Anion Gap 5, Blood Urea Nitrogen 13, Creatinine 0.5L, Estimat Glomerular Filtration Rate > 60, Glucose Level 145H, Calcium Level 7.2L, Phosphorus Level 1.2L, Magnesium Level 1.8, Total Bilirubin 0.4, Aspartate Amino Transf (AST/SGOT) 29, Alanine Aminotransferase (ALT/SGPT) 14, Alkaline Phosphatase 219H, C-Reactive Protein, Quantitative 11.4H, Total Protein 5.2L, Albumin 1.0L, Globulin 4.2, Albumin/Globulin Ratio 0.2L Height (Feet): 6 Height (Inches): 0.40 Weight (Pounds): 150 Objective Elderly AA man NCAT supple CTA RRR Abd soft distended, minimally TTP (+) Gina Graham MD Aug 21, 2018 19:11
--- NOTE | 2018-08-21 19:18 | Internal Med Progress Note ---
Subjective Date of Service: Aug 21, 2018 Physician Name Daniel Jackson Attending Physician Pedro Caban MD Current Medications Medications (Trade) Dose Ordered Sig/Erlin Route PRN Reason Start Time Stop Time Status Last Admin Dose Admin Acetaminophen (Tylenol) 650 mg Q4H PRN NG Mild Pain (Pain Scale 1-3) 08/17/18 11:00 09/13/18 06:44 Acetaminophen (Tylenol) 650 mg Q6H PRN NG Temp > 100.5 08/17/18 11:00 09/13/18 08:59 08/19/18 00:49 Acetaminophen/ Hydrocodone Bitart ([place] 5/325) 1 tab Q4H PRN NG For Pain 08/20/18 20:00 08/24/18 19:59 Amiodarone HCl (Cordarone) 200 mg DAILY NG 08/21/18 09:00 09/19/18 08:59 08/21/18 10:21 Apixaban (Eliquis) 2.5 mg Q12HR NG 08/17/18 21:00 09/13/18 08:59 08/21/18 09:00 Aripiprazole (Abilify) 5 mg BID ORAL 08/14/18 09:00 09/13/18 08:59 08/21/18 18:06 Dextrose/ Electrolytes 1,000 ml @ 75 mls/hr [id number] IV 08/17/18 11:30 09/16/18 11:29 08/21/18 10:31 Digoxin (Lanoxin) 0.125 mg DAILY NG 08/21/18 09:00 09/19/18 08:59 08/21/18 10:22 Gabapentin (Neurontin) 100 mg THREE TIMES A DAY NG 08/17/18 13:00 09/13/18 12:59 08/21/18 18:06 Isoniazid (Inh) 300 mg DAILY NG 08/18/18 09:00 09/13/18 08:59 08/21/18 10:24 Lactobacillus Acidophilus (Culturelle) 1 tab THREE TIMES A DAY NG 08/20/18 13:00 09/18/18 08:59 08/21/18 18:05 Magnesium Hydroxide (Mom) 30 ml BEDTIME NG 08/17/18 21:00 09/13/18 20:59 08/20/18 21:00 Meropenem 1 gm/ Sodium Chloride 55 ml @ 110 mls/hr Q8H IVPB 08/17/18 21:00 08/29/18 23:59 08/21/18 14:04 Metoprolol Tartrate (Lopressor) 25 mg Q12HR NG 08/20/18 21:00 09/18/18 20:59 08/21/18 10:20 Midodrine (Pro-Amatine) 5 mg THREE TIMES A DAY NG 08/17/18 13:00 09/13/18 08:59 08/21/18 10:24 Potassium Chloride 40 meq/ Sodium Chloride 570 ml @ 142.5 mls/ hr ONCE IVPB 08/21/18 15:00 08/21/18 20:00 08/21/18 16:19 Pyridoxine HCl (Vitamin B6) 50 mg DAILY NG 08/18/18 09:00 09/13/18 08:59 08/21/18 10:25 Sodium Hypochlorite (Dakin's Quarter Strength) 1 applic DAILY TOPIC 08/14/18 16:00 09/13/18 15:59 08/21/18 10:31 Sodium Phosphate 30 mm/Sodium Chloride 285 ml @ 47.5 mls/hr ONCE IV 08/21/18 15:00 08/21/18 21:00 08/21/18 16:20 Vancomycin HCl (Firvanq) 250 mg FOUR TIMES A DAY NG 08/17/18 13:00 08/29/18 23:59 08/21/18 18:06 Vitamin B Complex/ Vit C/Folic Acid (Nephrovite) 1 tab DAILY NG 08/18/18 09:00 09/13/18 08:59 08/21/18 10:24 Zinc Sulfate (Zinc Sulfate) 220 mg DAILY NG 08/18/18 09:00 09/13/18 08:59 08/21/18 10:22 Allergies: Coded Allergies: MILK (Verified Allergy, Unknown, 02/02/18) ROS Limited/Unobtainable: Yes Subjective 68 YO M admitted with fever and leukocytosis. Now Sepsis and C. Difficile colitis/diarrhea. Cover for Int Med-Dr Caban. Objective Last Vital Signs Date Time Temp Pulse Resp B/P (MAP) Pulse Ox O2 Delivery O2 Flow Rate FiO2 08/21/18 16:00 79 08/21/18 16:00 98.8 20 133/92 (106) 100 08/21/18 09:59 Nasal Cannula 2.0 28 Laboratory Tests Test 08/21/18 10:30 White Blood Count 14.3 K/UL (4.8-10.8) H Red Blood Count 2.91 M/UL (4.70-6.10) L Hemoglobin 9.1 G/DL (14.2-18.0) L Hematocrit 28.7 % (42.0-52.0) L Mean Corpuscular Volume 99 FL (80-99) Mean Corpuscular Hemoglobin 31.3 PG (27.0-31.0) H Mean Corpuscular Hemoglobin Concent 31.7 G/DL (32.0-36.0) L Red Cell Distribution Width 15.3 % (11.6-14.8) H Platelet Count 154 K/UL (150-450) Mean Platelet Volume 5.4 FL (6.5-10.1) L Neutrophils (%) (Auto) 75.2 % (45.0-75.0) H Lymphocytes (%) (Auto) 18.6 % (20.0-45.0) L Monocytes (%) (Auto) 5.0 % (1.0-10.0) Eosinophils (%) (Auto) 0.3 % (0.0-3.0) Basophils (%) (Auto) 0.8 % (0.0-2.0) Erythrocyte Sedimentation Rate 16 MM/HR (0-20) Sodium Level 142 MMOL/L (136-145) Potassium Level 2.9 MMOL/L (3.5-5.1) L Chloride Level 112 MMOL/L (98-107) H Carbon Dioxide Level 25 MMOL/L (21-32) Anion Gap 5 mmol/L (5-15) Blood Urea Nitrogen 13 mg/dL (7-18) Creatinine 0.5 MG/DL (0.55-1.30) L Estimat Glomerular Filtration Rate > 60 mL/min (>60) Glucose Level 145 MG/DL (74-106) H Calcium Level 7.2 MG/DL (8.5-10.1) L Phosphorus Level 1.2 MG/DL (2.5-4.9) L Magnesium Level 1.8 MG/DL (1.8-2.4) Total Bilirubin 0.4 MG/DL (0.2-1.0) Aspartate Amino Transf (AST/SGOT) 29 U/L (15-37) Alanine Aminotransferase (ALT/SGPT) 14 U/L (12-78) Alkaline Phosphatase 219 U/L (46-116) H C-Reactive Protein, Quantitative 11.4 mg/dL (0.00-0.90) H Total Protein 5.2 G/DL (6.4-8.2) L Albumin 1.0 G/DL (3.4-5.0) L Globulin 4.2 g/dL Albumin/Globulin Ratio 0.2 (1.0-2.7) L Intake and Output 08/20/18 08/21/18 19:00 07:00 Intake Total 40 ml Balance 40 ml Tube Feeding 40 ml # Voids 3 Objective General Appearance: WD/WN, no apparent distress, lethargic EENT: PERRL/EOMI, normal ENT inspection Neck: non-tender, normal alignment, supple, normal inspection Cardiovascular: normal peripheral pulses, normal rate, regular rhythm, no gallop/murmur, no JVD Respiratory/Chest: chest wall non-tender, lungs clear, normal breath sounds, no respiratory distress, no accessory muscle use Abdomen: normal bowel sounds, non tender, soft, no organomegaly, no mass Extremities: normal range of motion, non-tender Neurologic: silk conditioner II-XII grossly normal Skin: normal pigmentation, warm/dry Assessment/Plan Problem List: (1) Sepsis Assessment & Plan: ESBL Proteus Mirablilis. Continue zosyn and meropenem per ID. 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 (5) Renal failure (ARF), acute on chronic (6) Decubitus ulcer Assessment & Plan: Await debridement per surgery-see note (7) Bipolar II disorder (8) Leukocytosis (9) Clostridium difficile colitis Assessment & Plan: Continue oral vanco per ID (10) CVA (cerebral vascular accident) (11) Acute metabolic encephalopathy (12) HTN (hypertension) (13) CAD (coronary artery disease) (14) Atrial fibrillation Assessment & Plan: Continue eliquis (15) Pneumonia Assessment & Plan: Continue INH per ID-see note (16) Hypernatremia Assessment & Plan: continue D5NS + KCL (17) Hypokalemia Assessment & Plan: Cont D5NS +Kcl Daniel Jackson MD Aug 21, 2018 19:18
[2018-08-21 20:00] VITALS: BP 153/80
[2018-08-21] MEDS: Milk of Magnesia 30ml Ud NG SCH (22:00)
[2018-08-22] VITALS: BP 163/73
[2018-08-22] MEDS ORDERED: cloNIDine 0.2mg Tab ORAL PRN (01:45)
[2018-08-22] MEDS: D5W w/KCl 20mEq 1,000 ML IV SCH ×2 (02:34→12:53)
[2018-08-22 04:00] VITALS: BP 156/100
[2018-08-22] MEDS: Meropenem 1 GM in NS 55 ML IVPB SCH ×3 (05:35→21:13)
[2018-08-22 07:39] VITALS: BP 118/78
[2018-08-22] MEDS: Zinc Sulfate 220mg cap NG SCH (08:15)
[2018-08-22] MEDS: Isoniazid 300mg tab NG SCH (08:15)
[2018-08-22] MEDS: Vancomycin oral 125mg/2.5ml NG SCH ×4 (08:15→21:13)
[2018-08-22] MEDS: Amiodarone 200mg tab NG SCH (08:16)
[2018-08-22] MEDS: Metoprolol 25mg tab NG SCH ×2 (08:16→21:15)
[2018-08-22] MEDS: Pyridoxine 50mg tab NG SCH (08:16)
[2018-08-22] MEDS: Digoxin 0.125mg tab NG SCH (08:17)
[2018-08-22] MEDS: Eliquis 2.5mg tablet NG SCH ×2 (08:17→21:13)
[2018-08-22] MEDS: Nephrovite tab (Rena-Vite) NG SCH (08:17)
[2018-08-22] MEDS: Lactobacillus-GG tablet NG SCH ×3 (08:17→17:14)
[2018-08-22] MEDS: Dakin's 0.125% Soln (Quarter Strength) 16oz TOPIC SCH (08:21)
[2018-08-22 12:00] VITALS: BP 139/72
--- NOTE | 2018-08-22 12:09 | Pulmonology Progress Note ---
Assessment/Plan Problems: (1) Clostridium difficile colitis (2) Acute metabolic encephalopathy (3) Sepsis (4) Decubitus skin ulcer (5) UTI (urinary tract infection) (6) Anemia (7) CVA (cerebral vascular accident) Assessment/Plan unchanged mental status, failed swallow study on NG tube telemetry records reviewed, still tachy with PAC's and PVC's K and phos supplement again today iv abx iv fluids On vanco PO check electrolytes continue current meds. dvt prophylaxis. social service consult to get family's expectations and code status discussion. Subjective ROS Limited/Unobtainable: Yes Interval Events: somnolent Allergies: Coded Allergies: MILK (Verified Allergy, Unknown, 02/02/18) Objective Last 24 Hour Vital Signs Date Time Temp Pulse Resp B/P (MAP) Pulse Ox O2 Delivery O2 Flow Rate FiO2 08/22/18 09:41 98 Nasal Cannula 2.0 28 08/22/18 09:41 Nasal Cannula 2.0 28 08/22/18 09:00 Nasal Cannula 2.0 08/22/18 08:17 78 08/22/18 08:16 78 118/78 08/22/18 07:39 98.0 78 19 118/78 (91) 96 08/22/18 07:38 95 08/22/18 04:00 98.0 73 19 156/100 (118) 96 08/22/18 04:00 75 08/22/18 00:00 58 08/22/18 00:00 98.0 63 19 163/73 (103) 100 08/21/18 21:59 72 153/80 08/21/18 21:00 Nasal Cannula 2.0 08/21/18 20:00 68 08/21/18 20:00 98.4 72 20 153/80 (104) 99 08/21/18 16:00 79 08/21/18 16:00 98.8 92 20 133/92 (106) 100 Intake and Output 08/21/18 08/22/18 18:59 06:59 Intake Total 1860.0 ml 700 ml Output Total 1000 ml Balance 1860.0 ml -300 ml Free Water 200 ml 100 ml IV Total 810.0 ml Tube Feeding 530 ml 600 ml Other 320 ml Stool Total 1000 ml # Voids 2 2 # Bowel Movements 1 1 General Appearance: cachetic HEENT: normocephalic, PERRL Respiratory/Chest: chest wall non-tender, lungs clear, normal breath sounds Cardiovascular: normal peripheral pulses, normal rate Abdomen: normal bowel sounds, soft, non tender Extremities: no cyanosis Skin: no rash 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: manager salt II-XII grossly normal Current Medications Medications (Trade) Dose Ordered Sig/Erlin Route PRN Reason Start Time Stop Time Status Last Admin Dose Admin Acetaminophen (Tylenol) 650 mg Q4H PRN NG Mild Pain (Pain Scale 1-3) 08/17/18 11:00 09/13/18 06:44 Acetaminophen (Tylenol) 650 mg Q6H PRN NG Temp > 100.5 08/17/18 11:00 09/13/18 08:59 08/19/18 00:49 Acetaminophen/ Hydrocodone Bitart ([place] 5/325) 1 tab Q4H PRN NG For Pain 08/20/18 20:00 08/24/18 19:59 Amiodarone HCl (Cordarone) 200 mg DAILY NG 08/21/18 09:00 09/19/18 08:59 08/22/18 08:16 Apixaban (Eliquis) 2.5 mg Q12HR NG 08/17/18 21:00 09/13/18 08:59 08/22/18 08:17 Aripiprazole (Abilify) 5 mg BID ORAL 08/14/18 09:00 09/13/18 08:59 08/22/18 08:16 Clonidine HCl (Catapres tab) 0.2 mg Q4H PRN ORAL For High Blood Pressure 08/22/18 01:45 09/21/18 01:44 Dextrose/ Electrolytes 1,000 ml @ 75 mls/hr [id number] IV 08/17/18 11:30 09/16/18 11:29 08/22/18 02:34 Digoxin (Lanoxin) 0.125 mg DAILY NG 08/21/18 09:00 09/19/18 08:59 08/22/18 08:17 Gabapentin (Neurontin) 100 mg THREE TIMES A DAY NG 08/17/18 13:00 09/13/18 12:59 08/22/18 08:15 Isoniazid (Inh) 300 mg DAILY NG 08/18/18 09:00 09/13/18 08:59 08/22/18 08:15 Lactobacillus Acidophilus (Culturelle) 1 tab THREE TIMES A DAY NG 08/20/18 13:00 09/18/18 08:59 08/22/18 08:17 Magnesium Hydroxide (Mom) 30 ml BEDTIME NG 08/17/18 21:00 09/13/18 20:59 08/21/18 22:00 Meropenem 1 gm/ Sodium Chloride 55 ml @ 110 mls/hr Q8H IVPB 08/17/18 21:00 08/29/18 23:59 08/22/18 05:35 Metoprolol Tartrate (Lopressor) 25 mg Q12HR NG 08/20/18 21:00 09/18/18 20:59 08/22/18 08:16 Midodrine (Pro-Amatine) 5 mg THREE TIMES A DAY NG 08/17/18 13:00 09/13/18 08:59 08/22/18 08:16 Potassium Chloride 40 meq/ Sodium Chloride 570 ml @ 142.5 mls/ hr ONCE IVPB 08/22/18 15:00 08/22/18 20:00 Pyridoxine HCl (Vitamin B6) 50 mg DAILY NG 08/18/18 09:00 09/13/18 08:59 08/22/18 08:16 Sodium Hypochlorite (Dakin's Quarter Strength) 1 applic DAILY TOPIC 08/14/18 16:00 09/13/18 15:59 08/22/18 08:21 Sodium Phosphate 30 mm/Sodium Chloride 285 ml @ 47.5 mls/hr ONCE IV 08/22/18 15:00 08/22/18 21:00 Vancomycin HCl (Firvanq) 250 mg FOUR TIMES A DAY NG 08/17/18 13:00 08/29/18 23:59 08/22/18 08:15 Vitamin B Complex/ Vit C/Folic Acid (Nephrovite) 1 tab DAILY NG 08/18/18 09:00 09/13/18 08:59 08/22/18 08:17 Zinc Sulfate (Zinc Sulfate) 220 mg DAILY NG 08/18/18 09:00 09/13/18 08:59 08/22/18 08:15 Minerva Montesinos MD Aug 22, 2018 12:09
--- NOTE | 2018-08-22 12:24 | Surgery Progress Note ---
Surgery Progress Note Subjective Additional Comments no acute events. spoke with daughter on phone today. micro noted. Objective Last 24 Hour Vital Signs Date Time Temp Pulse Resp B/P (MAP) Pulse Ox O2 Delivery O2 Flow Rate FiO2 08/22/18 09:41 98 Nasal Cannula 2.0 28 08/22/18 09:41 Nasal Cannula 2.0 28 08/22/18 09:00 Nasal Cannula 2.0 08/22/18 08:17 78 08/22/18 08:16 78 118/78 08/22/18 07:39 98.0 78 19 118/78 (91) 96 08/22/18 07:38 95 08/22/18 04:00 98.0 73 19 156/100 (118) 96 08/22/18 04:00 75 08/22/18 00:00 58 08/22/18 00:00 98.0 63 19 163/73 (103) 100 08/21/18 21:59 72 153/80 08/21/18 21:00 Nasal Cannula 2.0 08/21/18 20:00 68 08/21/18 20:00 98.4 72 20 153/80 (104) 99 08/21/18 16:00 79 08/21/18 16:00 98.8 92 20 133/92 (106) 100 I&O Intake and Output 08/21/18 08/22/18 18:59 06:59 Intake Total 1860.0 ml 700 ml Output Total 1000 ml Balance 1860.0 ml -300 ml Free Water 200 ml 100 ml IV Total 810.0 ml Tube Feeding 530 ml 600 ml Other 320 ml Stool Total 1000 ml # Voids 2 2 # Bowel Movements 1 1 Dressing: saturated Wound: other Drains: other Cardiovascular: RSR Respiratory: clear Abdomen: soft, present bowel sounds, non-distended Extremities: other Plan Problems: (1) Sepsis Assessment & Plan: IV abx trend labs will monitor wounds possible debridement spoke with daughter. consent obtained. will plan for soon but needs medical care first. +c diff. +blood cultures. electrolytes off. needs replacement. (2) Decubitus skin ulcer Assessment & Plan: Pt presented on admission with multiple full thickness pressure injuries. Full thickness pressure injury to L elbow.Base of wound wound with 25% fibrinous slough,75% pink granulation noted.(+) maceration along borders. erythema without elevation in skin temp periwound(L)1.5cm x (W)1.8cm x(D)0.3cm. Full thickness pressure injury R trochanter .Base of wound with pink granulation.Edges adherent to base of wound .No odor or exudate noted.Darker skin tone without induration periwound. (L)4.5cm x (W)6.3cm x (D) 3cm.Undermining 12-3 by 3cm @12o'clock. Full thickness pressure injury to R ischium .Wound is malodorous.90% soft necrosis,10% pink noted at base of wound ,(+) epibole along edges .Periwound darker in skin tone and is indurated.(L)8.4cm x (W)4.3cm (D)2.5cm .Tunneling at 1o'clock by 3.6cm ,tunneling @5o'clock by 6.3cm. Full thickness sacral pressure injury with 80% soft necrosis ,20% pink granulation .Wound is malodorous with small amt brown exudate (L)8.5cm x (W)5cm x (D)2.5cm ,undermining 8-5 by 4.7cm @1o'clock. wounds with gross drainage poor nutritional status. prognosis concerning Tx.Plan: Cleanse R trochanter with Dakin's 0.125% candelaria. Loosely pack with Dakin's soaked kerlix .Cover with Optifoam drsg TID and prn. Cleanse R Ischial wound with Dakin's 0.125% candelaria.Loosely pack with Dakin's soaked kerlix. Cavilon Skin Barrier periwound. Cover with Optifoam drsg TID and prn. Cleanse Sacral wound with dakin's 0.125% candelaria.Loosely pack with Dakin's soaked kerlix.Cavilon Skin Barrier periwound.Cover with Optifoam drsg TID and prn. Cleanse L elbow with Dakin's 0.125% candelaria. Apply Dakin's moist 2x2 gauze. Cover with Optifoam drsg TID and prn. Quartet Air fluidized mattress. Reposition L side to back at least every 2hours or as tolerated. Goyo Osuna Aug 22, 2018 12:24
--- NOTE | 2018-08-22 12:59 | Infectious Diseases Prog Note ---
Assessment/Plan Assessment/Plan Assessment: Sepsis-2ry to bacteremia (likley from GI translocation ) -CT abd/p" Colonic mural thickening consistent with some form of colitis. No pneumatosis or extraluminal air. C Diff -Cdif toxin a/b + -Bcx / GNR, 08/21 ESBL Proteus mirabilis (S Ertapenem, Zosyn), 08/21 Group C strep ; 08/15 Bcx 07/24 Prevotella L . (R Clinda, Unasyn; S flagyl) ;08/17 Bcx 2/ GNR; 3/ Bcx p -u/a no pyuria -CXR: Suspect a small left pleural effusion. Mild basal atelectasis -influenza sc neg Fever, improving Leukocytosis , Persistent Hx of lung cavitary lesion/ PNA- suspect likely to aspiration; lower suspicion for TB and/or fungal etiologies -06/08 CT chest: * Interval resolution of the cavitary component associated with the previously described anterior right upper lobe opacity. It is slightly decreased in size and more nodular in appearance on today's exam. Additional patchy opacities in the posterior right upper lobe are also slightly decreased in size and appear more nodular (previously were groundglass). Findings likely related to evolving infectious or inflammatory lesions however continued follow-up is recommended to assure resolution/exclude the possibility of neoplastic etiologies. -CT c/a/p: 10 mm opacity in the peripheral anterolateral right upper lobe with small central cavitation. Patchy groundglass opacity in the posterior right upper lobe. Suspect that these represent inflammatory/infectious lesions, but neoplastic etiology of either is certainly possible. Large left and moderate right pleural effusions. Resultant compressive atelectasis of portions of the lower lobes. 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 Hypertension. Multiple decubiti ulcers (elbow, sacral) -not infected Bipolar disorder. Coronary artery disease. VRE and MRSA colonized Plan: -Continue Meropenem #6 (abx d #03/03) given ESBL bacteremia -Continue PO Vancomycin #01/31 for Cdiff -Cont INH for latent TB -08/17 SP Zosyn #3, Daptomycin #3 -08/15 SP Tamiflu #2, Ceftriaxone #2 -08/14 SP Cefepime and LEvaquin x1 - f/u Repeat 2 sets of Bcx -Monitor CBC/CMP, temperatures -wound care -aspiration precautions -Sx f/u Subjective Allergies: Coded Allergies: MILK (Verified Allergy, Unknown, 02/02/18) Subjective afebrile in >48hrs bacteremic; repeat bcx p leukocytosis persistent; no cbc today Objective Vital Signs Last 24 Hour Vital Signs Date Time Temp Pulse Resp B/P (MAP) Pulse Ox O2 Delivery O2 Flow Rate FiO2 08/22/18 12:00 98.0 85 19 139/72 (94) 96 08/22/18 09:41 98 Nasal Cannula 2.0 28 08/22/18 09:41 Nasal Cannula 2.0 28 08/22/18 09:00 Nasal Cannula 2.0 08/22/18 08:17 78 08/22/18 08:16 78 118/78 08/22/18 07:39 98.0 78 19 118/78 (91) 96 08/22/18 07:38 95 08/22/18 04:00 98.0 73 19 156/100 (118) 96 08/22/18 04:00 75 08/22/18 00:00 58 08/22/18 00:00 98.0 63 19 163/73 (103) 100 08/21/18 21:59 72 153/80 08/21/18 21:00 Nasal Cannula 2.0 08/21/18 20:00 68 08/21/18 20:00 98.4 72 20 153/80 (104) 99 08/21/18 16:00 79 08/21/18 16:00 98.8 92 20 133/92 (106) 100 Height (Feet): 6 Height (Inches): 0.40 Weight (Pounds): 150 Objective General appearance: alert, cooperative, no distress, appears stated age Head: Normocephalic, without obvious abnormality, atraumatic Eyes: conjunctivae/corneas clear. PERRL, EOM's intact. Fundi benign Throat: Lips, mucosa, and tongue normal. Teeth and gums normal Neck: supple, symmetrical, trachea midline, no adenopathy, thyroid: not enlarged, symmetric, no tenderness/mass/nodules, no carotid bruit and no JVD Lungs: clear to auscultation bilaterally Heart: regular rate and rhythm, S1, S2 normal, no murmur, click, rub or gallop Abdomen: soft, non-tender. Bowel sounds normal. No masses, no organomegaly Extremities: extremities normal, atraumatic, no cyanosis or edema/ s/p bilateral aka Pulses: 2+ and symmetric Skin: Skin color, texture, turgor normal. No rashes or lesions. multiple large decubitus ulcers. Neurologic: Grossly normal Current Medications Medications (Trade) Dose Ordered Sig/Erlin Route PRN Reason Start Time Stop Time Status Last Admin Dose Admin Acetaminophen (Tylenol) 650 mg Q4H PRN NG Mild Pain (Pain Scale 1-3) 08/17/18 11:00 09/13/18 06:44 Acetaminophen (Tylenol) 650 mg Q6H PRN NG Temp > 100.5 08/17/18 11:00 09/13/18 08:59 08/19/18 00:49 Acetaminophen/ Hydrocodone Bitart ([place] 5/325) 1 tab Q4H PRN NG For Pain 08/20/18 20:00 08/24/18 19:59 Amiodarone HCl (Cordarone) 200 mg DAILY NG 08/21/18 09:00 09/19/18 08:59 08/22/18 08:16 Apixaban (Eliquis) 2.5 mg Q12HR NG 08/17/18 21:00 09/13/18 08:59 08/22/18 08:17 Aripiprazole (Abilify) 5 mg BID ORAL 08/14/18 09:00 09/13/18 08:59 08/22/18 08:16 Clonidine HCl (Catapres tab) 0.2 mg Q4H PRN ORAL For High Blood Pressure 08/22/18 01:45 09/21/18 01:44 Dextrose/ Electrolytes 1,000 ml @ 75 mls/hr [id number] IV 08/17/18 11:30 09/16/18 11:29 08/22/18 02:34 Digoxin (Lanoxin) 0.125 mg DAILY NG 08/21/18 09:00 09/19/18 08:59 08/22/18 08:17 Gabapentin (Neurontin) 100 mg THREE TIMES A DAY NG 08/17/18 13:00 09/13/18 12:59 08/22/18 08:15 Isoniazid (Inh) 300 mg DAILY NG 08/18/18 09:00 09/13/18 08:59 08/22/18 08:15 Lactobacillus Acidophilus (Culturelle) 1 tab THREE TIMES A DAY NG 08/20/18 13:00 09/18/18 08:59 08/22/18 08:17 Magnesium Hydroxide (Mom) 30 ml BEDTIME NG 08/17/18 21:00 09/13/18 20:59 08/21/18 22:00 Meropenem 1 gm/ Sodium Chloride 55 ml @ 110 mls/hr Q8H IVPB 08/17/18 21:00 08/29/18 23:59 08/22/18 05:35 Metoprolol Tartrate (Lopressor) 25 mg Q12HR NG 08/20/18 21:00 09/18/18 20:59 08/22/18 08:16 Midodrine (Pro-Amatine) 5 mg THREE TIMES A DAY NG 08/17/18 13:00 09/13/18 08:59 08/22/18 08:16 Potassium Chloride 100 ml @ 100 mls/hr Q1H IVPB 08/22/18 12:30 08/22/18 16:29 Pyridoxine HCl (Vitamin B6) 50 mg DAILY NG 08/18/18 09:00 09/13/18 08:59 08/22/18 08:16 Sodium Hypochlorite (Dakin's Quarter Strength) 1 applic DAILY TOPIC 08/14/18 16:00 09/13/18 15:59 08/22/18 08:21 Sodium Phosphate 30 mm/Sodium Chloride 285 ml @ 47.5 mls/hr ONCE IV 08/22/18 15:00 08/22/18 21:00 Vancomycin HCl (Firvanq) 250 mg FOUR TIMES A DAY NG 08/17/18 13:00 08/29/18 23:59 08/22/18 08:15 Vitamin B Complex/ Vit C/Folic Acid (Nephrovite) 1 tab DAILY NG 08/18/18 09:00 09/13/18 08:59 08/22/18 08:17 Zinc Sulfate (Zinc Sulfate) 220 mg DAILY NG 08/18/18 09:00 09/13/18 08:59 08/22/18 08:15 Alma Elkins M.D. Aug 22, 2018 12:59
[2018-08-22] MEDS ORDERED: Sodium Phosphate 30 MM in NS 275 ML IV SCH (15:00)
[2018-08-22] MEDS ORDERED: Potassium Chloride 40 MEQ in Sodium Chloride 550 ML IVPB SCH (15:00)
[2018-08-22 16:00] VITALS: BP 125/79
[2018-08-22] MEDS ORDERED: Heparin1,000 units/500ml Premix(Conc:2 units/ml) IV PRN (16:15)
[2018-08-22] MEDS ORDERED: Lidocaine 1% Plain 30 ml INJ PRN (16:15)
--- NOTE | 2018-08-22 18:03 | Cardiac Electrophysiology PN ---
Assessment/Plan Assessment/Plan 1. Atrial fibrillation with rapid ventricular response. Continue Eliquis 2.5 mg bid, metoprolol 25 mg bid, digoxin 0.125 and amiodarone 200 Increase Lopressor to 50 bid 2. Fever and sepsis. Positive blood culture. IV antibiotics per Dr. Parker. Blood cultures pending 3. History of dementia and psychosis. 4. 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 5. Sacral decubitus. 6. C. diff colitis. 7. Hypotension on Midodrine DW RN Subjective Subjective Had atrial fib with RVR 120s. Objective Last 24 Hour Vital Signs Date Time Temp Pulse Resp B/P (MAP) Pulse Ox O2 Delivery O2 Flow Rate FiO2 08/22/18 16:00 98.0 104 19 125/79 (94) 96 08/22/18 15:58 110 08/22/18 12:00 98.0 85 19 139/72 (94) 96 08/22/18 11:50 78 08/22/18 09:41 98 Nasal Cannula 2.0 28 08/22/18 09:41 Nasal Cannula 2.0 28 08/22/18 09:00 Nasal Cannula 2.0 08/22/18 08:17 78 08/22/18 08:16 78 118/78 08/22/18 07:39 98.0 78 19 118/78 (91) 96 08/22/18 07:38 95 08/22/18 04:00 98.0 73 19 156/100 (118) 96 08/22/18 04:00 75 08/22/18 00:00 58 08/22/18 00:00 98.0 63 19 163/73 (103) 100 08/21/18 21:59 72 153/80 08/21/18 21:00 Nasal Cannula 2.0 08/21/18 20:00 68 08/21/18 20:00 98.4 72 20 153/80 (104) 99 Intake and Output 08/21/18 08/22/18 18:59 06:59 Intake Total 1860.0 ml 700 ml Output Total 1000 ml Balance 1860.0 ml -300 ml Free Water 200 ml 100 ml IV Total 810.0 ml Tube Feeding 530 ml 600 ml Other 320 ml Stool Total 1000 ml # Voids 2 2 # Bowel Movements 1 1 Objective HEAD AND NECK: no JVD. He has an NG tube. LUNGS: Have coarse rhonchi. CARDIOVASCULAR: Irregular S1 and S2 with no gallop or murmur. ABDOMEN: Soft. EXTREMITIES: Bilateral above-knee amputation. Amandeep Arora MD Aug 22, 2018 18:03
--- NOTE | 2018-08-22 19:05 | Internal Med Progress Note ---
Subjective Date of Service: Aug 22, 2018 Physician Name Daniel Jackson Attending Physician Pedro Caban MD Current Medications Medications (Trade) Dose Ordered Sig/Erlin Route PRN Reason Start Time Stop Time Status Last Admin Dose Admin Acetaminophen (Tylenol) 650 mg Q4H PRN NG Mild Pain (Pain Scale 1-3) 08/17/18 11:00 09/13/18 06:44 Acetaminophen (Tylenol) 650 mg Q6H PRN NG Temp > 100.5 08/17/18 11:00 09/13/18 08:59 08/19/18 00:49 Acetaminophen/ Hydrocodone Bitart ([place] 5/325) 1 tab Q4H PRN NG For Pain 08/20/18 20:00 08/24/18 19:59 Amiodarone HCl (Cordarone) 200 mg DAILY NG 08/21/18 09:00 09/19/18 08:59 08/22/18 08:16 Apixaban (Eliquis) 2.5 mg Q12HR NG 08/17/18 21:00 09/13/18 08:59 08/22/18 08:17 Aripiprazole (Abilify) 5 mg BID ORAL 08/14/18 09:00 09/13/18 08:59 08/22/18 17:14 Chlorhexidine Gluconate (Yari-Hex 2%) 1 applic DAILY@2000 TOPIC 08/22/18 20:00 09/21/18 19:59 Clonidine HCl (Catapres tab) 0.2 mg Q4H PRN ORAL For High Blood Pressure 08/22/18 01:45 09/21/18 01:44 Dextrose/ Electrolytes 1,000 ml @ 75 mls/hr [id number] IV 08/17/18 11:30 09/16/18 11:29 08/22/18 12:53 Digoxin (Lanoxin) 0.125 mg DAILY NG 08/21/18 09:00 09/19/18 08:59 08/22/18 08:17 Gabapentin (Neurontin) 100 mg THREE TIMES A DAY NG 08/17/18 13:00 09/13/18 12:59 08/22/18 17:14 Heparin Sodium/ Sodium Chloride (Heparin 1000 units/500ml Premix) 1,000 unit ONCE PRN IV PICC 08/22/18 16:15 08/22/18 23:59 Isoniazid (Inh) 300 mg DAILY NG 08/18/18 09:00 09/13/18 08:59 08/22/18 08:15 Lactobacillus Acidophilus (Culturelle) 1 tab THREE TIMES A DAY NG 08/20/18 13:00 09/18/18 08:59 08/22/18 17:14 Lidocaine HCl (Xylocaine 1% 30ml) 30 ml ONCE PRN INJ PICC 08/22/18 16:15 08/22/18 23:59 Magnesium Hydroxide (Mom) 30 ml BEDTIME NG 08/17/18 21:00 09/13/18 20:59 08/21/18 22:00 Meropenem 1 gm/ Sodium Chloride 55 ml @ 110 mls/hr Q8H IVPB 08/17/18 21:00 08/29/18 23:59 08/22/18 14:41 Metoprolol Tartrate (Lopressor) 25 mg Q12HR NG 08/20/18 21:00 09/18/18 20:59 08/22/18 08:16 Midodrine (Pro-Amatine) 5 mg THREE TIMES A DAY NG 08/17/18 13:00 09/13/18 08:59 08/22/18 17:14 Pyridoxine HCl (Vitamin B6) 50 mg DAILY NG 08/18/18 09:00 09/13/18 08:59 08/22/18 08:16 Sodium Hypochlorite (Dakin's Quarter Strength) 1 applic DAILY TOPIC 08/14/18 16:00 09/13/18 15:59 08/22/18 08:21 Sodium Phosphate 30 mm/Sodium Chloride 285 ml @ 47.5 mls/hr ONCE IV 08/22/18 15:00 08/22/18 21:00 08/22/18 18:59 Vancomycin HCl (Firvanq) 250 mg FOUR TIMES A DAY NG 08/17/18 13:00 08/29/18 23:59 08/22/18 17:14 Vitamin B Complex/ Vit C/Folic Acid (Nephrovite) 1 tab DAILY NG 08/18/18 09:00 09/13/18 08:59 08/22/18 08:17 Zinc Sulfate (Zinc Sulfate) 220 mg DAILY NG 08/18/18 09:00 09/13/18 08:59 08/22/18 08:15 Allergies: Coded Allergies: MILK (Verified Allergy, Unknown, 02/02/18) ROS Limited/Unobtainable: Yes Subjective 68 YO M admitted with fever and leukocytosis. Now Sepsis and C. Difficile colitis/diarrhea. Cover for Int Med-Dr Caban. Objective Last Vital Signs Date Time Temp Pulse Resp B/P (MAP) Pulse Ox O2 Delivery O2 Flow Rate FiO2 08/22/18 16:00 98.0 104 19 125/79 (94) 96 08/22/18 09:41 Nasal Cannula 2.0 28 Intake and Output 08/21/18 08/22/18 19:00 07:00 Intake Total 1820.0 ml 835 ml Output Total 1000 ml Balance 1820.0 ml -165 ml Free Water 200 ml 100 ml IV Total 810.0 ml 75 ml Tube Feeding 490 ml 660 ml Other 320 ml Stool Total 1000 ml # Voids 2 2 # Bowel Movements 1 1 Objective General Appearance: WD/WN, no apparent distress, lethargic EENT: PERRL/EOMI, normal ENT inspection Neck: non-tender, normal alignment, supple, normal inspection Cardiovascular: normal peripheral pulses, normal rate, regular rhythm, no gallop/murmur, no JVD Respiratory/Chest: chest wall non-tender, lungs clear, normal breath sounds, no respiratory distress, no accessory muscle use Abdomen: normal bowel sounds, non tender, soft, no organomegaly, no mass Extremities: normal range of motion, non-tender Neurologic: outpatient program coordinator II-XII grossly normal Skin: normal pigmentation, warm/dry Assessment/Plan Problem List: (1) Sepsis Assessment & Plan: ESBL Proteus Mirablilis. Continue zosyn and meropenem per ID. 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 (5) Renal failure (ARF), acute on chronic (6) Decubitus ulcer Assessment & Plan: Await debridement per surgery-see note (7) Bipolar II disorder (8) Leukocytosis (9) Clostridium difficile colitis Assessment & Plan: Continue oral vanco per ID (10) CVA (cerebral vascular accident) (11) Acute metabolic encephalopathy (12) HTN (hypertension) (13) CAD (coronary artery disease) (14) Atrial fibrillation Assessment & Plan: Continue eliquis (15) Pneumonia Assessment & Plan: Continue INH per ID-see note (16) Hypernatremia Assessment & Plan: continue D5NS + KCL (17) Hypokalemia Assessment & Plan: Cont D5NS +Kcl Daniel Jackson MD Aug 22, 2018 19:04
[2018-08-22 20:00] VITALS: BP 126/71
--- NOTE | 2018-08-22 20:08 | General Progress Note ---
Assessment/Plan Assessment/Plan Assessment - C Difficile colitis - failed swallow eval - Malnutrition , NGT - s/p b/l AKA - anemia - bacteremia, leukocytosis Recommendations - continue Vanco PO - taper down broad spect abx when feasible - probiotics - elevate HOB - TF - Poor Px Subjective Allergies: Coded Allergies: MILK (Verified Allergy, Unknown, 02/02/18) Subjective above noted NGT feeds tolerated non interactive no labs today Objective Last 24 Hour Vital Signs Date Time Temp Pulse Resp B/P (MAP) Pulse Ox O2 Delivery O2 Flow Rate FiO2 08/22/18 16:00 98.0 104 19 125/79 (94) 96 08/22/18 15:58 110 08/22/18 12:00 98.0 85 19 139/72 (94) 96 08/22/18 11:50 78 08/22/18 09:41 98 Nasal Cannula 2.0 28 08/22/18 09:41 Nasal Cannula 2.0 28 08/22/18 09:00 Nasal Cannula 2.0 08/22/18 08:17 78 08/22/18 08:16 78 118/78 08/22/18 07:39 98.0 78 19 118/78 (91) 96 08/22/18 07:38 95 08/22/18 04:00 98.0 73 19 156/100 (118) 96 08/22/18 04:00 75 08/22/18 00:00 58 08/22/18 00:00 98.0 63 19 163/73 (103) 100 08/21/18 21:59 72 153/80 08/21/18 21:00 Nasal Cannula 2.0 Intake and Output 08/21/18 08/22/18 19:00 07:00 Intake Total 1820.0 ml 835 ml Output Total 1000 ml Balance 1820.0 ml -165 ml Free Water 200 ml 100 ml IV Total 810.0 ml 75 ml Tube Feeding 490 ml 660 ml Other 320 ml Stool Total 1000 ml # Voids 2 2 # Bowel Movements 1 1 Height (Feet): 6 Height (Inches): 0.40 Weight (Pounds): 150 Objective Elderly AA man NCAT supple CTA RRR Abd soft distended, minimally TTP (+) Gina Graham MD Aug 22, 2018 20:08
[2018-08-22] MEDS: Milk of Magnesia 30ml Ud NG SCH (21:12)
[2018-08-22] MEDS: Dyna-Hex 2% Top Sol 2oz TOPIC SCH (21:12)
[2018-08-23] VITALS: BP 145/81
[2018-08-23] MEDS: D5W w/KCl 20mEq 1,000 ML IV SCH ×2 (00:50→14:12)
[2018-08-23 04:00] VITALS: BP 123/73
[2018-08-23] MEDS: Meropenem 1 GM in NS 55 ML IVPB SCH ×3 (04:48→22:10)
[2018-08-23 07:24] VITALS: BP 140/82
[2018-08-23] MEDS: Digoxin 0.125mg tab NG SCH (08:15)
[2018-08-23] MEDS: Amiodarone 200mg tab NG SCH (08:15)
[2018-08-23] MEDS: Isoniazid 300mg tab NG SCH (08:15)
[2018-08-23] MEDS: Lactobacillus-GG tablet NG SCH ×3 (08:15→17:11)
[2018-08-23] MEDS: Metoprolol 25mg tab NG SCH (08:15)
[2018-08-23] MEDS: Pyridoxine 50mg tab NG SCH (08:15)
[2018-08-23] MEDS: Zinc Sulfate 220mg cap NG SCH (08:16)
[2018-08-23] MEDS: Nephrovite tab (Rena-Vite) NG SCH (08:16)
[2018-08-23] MEDS: Eliquis 2.5mg tablet NG SCH ×2 (08:16→22:10)
[2018-08-23] MEDS: Dakin's 0.125% Soln (Quarter Strength) 16oz TOPIC SCH (08:17)
[2018-08-23] MEDS ORDERED: Heparin1,000 units/500ml Premix(Conc:2 units/ml) IV PRN (08:45)
[2018-08-23] MEDS ORDERED: Lidocaine 1% Plain 30 ml INJ PRN (08:45)
[2018-08-23] MEDS: Vancomycin oral 125mg/2.5ml NG SCH ×4 (09:10→22:11)
[2018-08-23 09:39] LABS: HEMATOCRIT 24.8 % (42.0-52.0); HEMOGLOBIN 7.9 G/DL (14.2-18.0); MEAN CORPUSCULAR VOLUME 98 FL (80-99); PLATELET COUNT 145 K/UL (150-450); RED BLOOD COUNT 2.53 M/UL (4.70-6.10); WHITE BLOOD COUNT 11.3 K/UL (4.8-10.8)
[2018-08-23 10:02] LABS: ALANINE AMINOTRANSFERASE 12 U/L (12-78); ALBUMIN 0.8 G/DL (3.4-5.0); ALBUMIN/GLOBULIN RATIO 0.2 (1.0-2.7); ALKALINE PHOSPHATASE 202 U/L (46-116); ANION GAP 5 mmol/L (5-15); ASPARTATE AMINO TRANSFERASE 25 U/L (15-37); BILIRUBIN,TOTAL 0.2 MG/DL (0.2-1.0); BLOOD UREA NITROGEN 13 mg/dL (7-18); CALCIUM 6.9 MG/DL (8.5-10.1); CARBON DIOXIDE 25 MMOL/L (21-32); CHLORIDE 112 MMOL/L (98-107); CREATININE 0.5 MG/DL (0.55-1.30); PHOSPHORUS 2.3 MG/DL (2.5-4.9); SODIUM 143 MMOL/L (136-145)
[2018-08-23 10:08] LABS: POTASSIUM 2.6 MMOL/L (3.5-5.1)
--- NOTE | 2018-08-23 11:58 | Pulmonology Progress Note ---
Assessment/Plan Problems: (1) Clostridium difficile colitis (2) Acute metabolic encephalopathy (3) Sepsis (4) Decubitus skin ulcer (5) UTI (urinary tract infection) (6) Anemia (7) CVA (cerebral vascular accident) Assessment/Plan unchanged mental status, failed swallow study on NG tube suction telemetry records reviewed, still tachy with PAC's and PVC's K and phos supplement again today iv abx iv fluids On vanco PO check electrolytes continue current meds. dvt prophylaxis. social service consult to get family's expectations and code status discussion. Subjective ROS Limited/Unobtainable: No Constitutional: Reports: no symptoms HEENT: Repors: no symptoms Allergies: Coded Allergies: MILK (Verified Allergy, Unknown, 02/02/18) Objective Last 24 Hour Vital Signs Date Time Temp Pulse Resp B/P (MAP) Pulse Ox O2 Delivery O2 Flow Rate FiO2 08/23/18 08:15 97 08/23/18 08:15 97 140/82 08/23/18 07:45 79 08/23/18 07:25 Nasal Cannula 2.0 08/23/18 07:24 98.0 97 19 140/82 (101) 96 08/23/18 04:00 99.0 68 16 123/73 (90) 100 08/23/18 04:00 70 08/23/18 00:00 84 08/23/18 00:00 99.8 78 20 145/81 (102) 100 08/22/18 21:15 101 126/71 08/22/18 21:00 Nasal Cannula 2.0 08/22/18 20:00 97 Nasal Cannula 2.0 28 08/22/18 20:00 98.9 101 18 126/71 (89) 100 08/22/18 20:00 103 08/22/18 20:00 Nasal Cannula 2.0 28 08/22/18 16:00 98.0 104 19 125/79 (94) 96 08/22/18 15:58 110 08/22/18 12:00 98.0 85 19 139/72 (94) 96 Intake and Output 08/22/18 08/23/18 19:00 07:00 Intake Total 1435 ml 755 ml Output Total 300 ml 1200 ml Balance 1135 ml -445 ml Free Water 200 ml 100 ml IV Total 575 ml 75 ml Tube Feeding 660 ml 580 ml Output Urine Total 300 ml 200 ml Stool Total 1000 ml # Bowel Movements 1 1 General Appearance: WD/WN HEENT: normocephalic, atraumatic Respiratory/Chest: chest wall non-tender, crackles/rales Cardiovascular: normal peripheral pulses, normal rate Abdomen: normal bowel sounds, soft, non tender Skin: no rash Microbiology Date/Time Source Procedure Growth Status 08/21/18 16:00 Blood Blood Culture - Preliminary NO GROWTH AFTER 24 HOURS Resulted 08/21/18 16:00 Blood Blood Culture - Preliminary NO GROWTH AFTER 24 HOURS Resulted Laboratory Tests 08/23/18 09:15: White Blood Count 11.3H, Red Blood Count 2.53L, Hemoglobin 7.9L, Hematocrit 24.8L, Mean Corpuscular Volume 98, Mean Corpuscular Hemoglobin 31.2H, Mean Corpuscular Hemoglobin Concent 31.9L, Red Cell Distribution Width 15.0H, Platelet Count 145L, Mean Platelet Volume 5.8L, Neutrophils (%) (Auto) , Lymphocytes (%) (Auto) , Monocytes (%) (Auto) , Eosinophils (%) (Auto) , Basophils (%) (Auto) , Differential Total Cells Counted 100, Neutrophils % ( Manual) 75, Lymphocytes % (Manual) 18L, Monocytes % (Manual) 6, Eosinophils % ( Manual) 1, Basophils % (Manual) 0, Band Neutrophils 0, Platelet Estimate DecreasedL, Platelet Morphology Normal, Hypochromasia 1+, Anisocytosis 1+, Sodium Level 143, Potassium Level 2.6*L, Chloride Level 112H, Carbon Dioxide Level 25, Anion Gap 5, Blood Urea Nitrogen 13, Creatinine 0.5L, Estimat Glomerular Filtration Rate > 60, Glucose Level 113H, Calcium Level 6.9L, Phosphorus Level 2.3L, Magnesium Level 1.7L, Total Bilirubin 0.2, Aspartate Amino Transf (AST/SGOT) 25, Alanine Aminotransferase (ALT/SGPT) 12, Alkaline Phosphatase 202H, Total Protein 4.9L, Albumin 0.8L, Globulin 4.1, Albumin/ Globulin Ratio 0.2L Current Medications Medications (Trade) Dose Ordered Sig/Erlin Route PRN Reason Start Time Stop Time Status Last Admin Dose Admin Acetaminophen (Tylenol) 650 mg Q4H PRN NG Mild Pain (Pain Scale 1-3) 08/17/18 11:00 09/13/18 06:44 Acetaminophen (Tylenol) 650 mg Q6H PRN NG Temp > 100.5 08/17/18 11:00 09/13/18 08:59 08/19/18 00:49 Acetaminophen/ Hydrocodone Bitart ([place] 5/325) 1 tab Q4H PRN NG For Pain 08/20/18 20:00 08/24/18 19:59 Amiodarone HCl (Cordarone) 200 mg DAILY NG 08/21/18 09:00 09/19/18 08:59 08/23/18 08:15 Apixaban (Eliquis) 2.5 mg Q12HR NG 08/17/18 21:00 09/13/18 08:59 08/23/18 08:16 Aripiprazole (Abilify) 5 mg BID ORAL 08/14/18 09:00 09/13/18 08:59 08/23/18 08:15 Chlorhexidine Gluconate (Yari-Hex 2%) 1 applic DAILY@2000 TOPIC 08/22/18 20:00 09/21/18 19:59 08/22/18 21:12 Clonidine HCl (Catapres tab) 0.2 mg Q4H PRN ORAL For High Blood Pressure 08/22/18 01:45 09/21/18 01:44 Dextrose/ Electrolytes 1,000 ml @ 75 mls/hr [id number] IV 08/17/18 11:30 09/16/18 11:29 08/22/18 12:53 Digoxin (Lanoxin) 0.125 mg DAILY NG 08/21/18 09:00 09/19/18 08:59 08/23/18 08:15 Gabapentin (Neurontin) 100 mg THREE TIMES A DAY NG 08/17/18 13:00 09/13/18 12:59 08/23/18 08:15 Heparin Sodium/ Sodium Chloride (Heparin 1000 units/500ml Premix) 1,000 unit ONCE PRN IV PICC PLACEMENT 08/23/18 08:45 08/23/18 23:59 Isoniazid (Inh) 300 mg DAILY NG 08/18/18 09:00 09/13/18 08:59 08/23/18 08:15 Lactobacillus Acidophilus (Culturelle) 1 tab THREE TIMES A DAY NG 08/20/18 13:00 09/18/18 08:59 08/23/18 08:15 Lidocaine HCl (Xylocaine 1% 30ml) 30 ml ONCE PRN INJ PICC PLACEMENT 08/23/18 08:45 08/23/18 23:59 Magnesium Hydroxide (Mom) 30 ml BEDTIME NG 08/17/18 21:00 09/13/18 20:59 08/22/18 21:12 Meropenem 1 gm/ Sodium Chloride 55 ml @ 110 mls/hr Q8H IVPB 08/17/18 21:00 08/29/18 23:59 08/23/18 04:48 Metoprolol Tartrate (Lopressor) 25 mg Q12HR NG 08/20/18 21:00 09/18/18 20:59 08/23/18 08:15 Midodrine (Pro-Amatine) 5 mg THREE TIMES A DAY NG 08/17/18 13:00 09/13/18 08:59 08/23/18 08:15 Pyridoxine HCl (Vitamin B6) 50 mg DAILY NG 08/18/18 09:00 09/13/18 08:59 08/23/18 08:15 Sodium Hypochlorite (Dakin's Quarter Strength) 1 applic DAILY TOPIC 08/14/18 16:00 09/13/18 15:59 08/23/18 08:17 Vancomycin HCl (Firvanq) 250 mg FOUR TIMES A DAY NG 08/17/18 13:00 08/29/18 23:59 08/23/18 09:10 Vitamin B Complex/ Vit C/Folic Acid (Nephrovite) 1 tab DAILY NG 08/18/18 09:00 09/13/18 08:59 08/23/18 08:16 Zinc Sulfate (Zinc Sulfate) 220 mg DAILY NG 08/18/18 09:00 09/13/18 08:59 08/23/18 08:16 Minerva Montesinos MD Aug 23, 2018 11:58
[2018-08-23 12:09] VITALS: BP 117/71
--- NOTE | 2018-08-23 12:16 | Diagnostic Imaging Report ---
Indications: Needs long-term IV access Technique: Ultrasound confirms patent compressible right brachial vein. Total sterile technique, including sterile probe cover and sterile gel, hat, mask, sterile gown, large sterile drape, and preparation with 2% chlorhexidine utilized. Local anesthesia with 1% lidocaine. Under real-time ultrasound guidance, puncture right brachial vein using 21-gauge needle, documented and archived, passage 0.018 guidewire under direct fluoroscopy, which was used to determine appropriate catheter length, exchange for 5 [place] peel-away sheath. 4 [place] Bard dual-lumen power PICC cut to 36 cm. It was inserted through the peel-away sheath. Peel-away sheath and guidewire removed. Catheter fixed to the skin. Both catheter ports aspirated and flushed. Patient tolerated procedure well, without immediate complication. Digital radiograph documents satisfactory catheter tip position, at the cavoatrial junction. Total fluoroscopy time 13.7 seconds . Total dose area product [id number] Total number of images: 1 Impression: Successful placement of right arm PICC under sonographic and fluoroscopic guidance, as described above.
--- NOTE | 2018-08-23 12:19 | Diagnostic Imaging Report ---
Indication: Shortness of breath Technique: One view of the chest Comparison: 08/14/2018 Findings: Inspiration is suboptimal. There is increased and now large left pleural effusion. There is interim development of bilateral interstitial edema. There is probably a small amount of pleural fluid on the right as well. There is some atelectasis at the right lung base. The heart border is obscured. The aorta is tortuous and ectatic. There is a gastric tube, tip projecting off the edge of image Impression: Increased, now large, left pleural effusion Interim development of bilateral pulmonary interstitial edema Small right pleural effusion also demonstrated
--- NOTE | 2018-08-23 13:42 | Infectious Diseases Prog Note ---
Assessment/Plan Assessment/Plan Assessment: Sepsis-2ry to bacteremia (likley from GI translocation ) -CT abd/p" Colonic mural thickening consistent with some form of colitis. No pneumatosis or extraluminal air. C Diff -Cdif toxin a/b + -Bcx / GNR, 08/21 ESBL Proteus mirabilis (S Ertapenem, Zosyn), 08/21 Group C strep ; 08/15 Bcx 07/24 Prevotella L . (R Clinda, Unasyn; S flagyl) ;08/17 Bcx 2/ GNR; 3 Bcx NTD -u/a no pyuria -CXR: Suspect a small left pleural effusion. Mild basal atelectasis -influenza sc neg Fever, SP Leukocytosis , improving Hx of lung cavitary lesion/ PNA- suspect likely to aspiration; lower suspicion for TB and/or fungal etiologies -06/08 CT chest: * Interval resolution of the cavitary component associated with the previously described anterior right upper lobe opacity. It is slightly decreased in size and more nodular in appearance on today's exam. Additional patchy opacities in the posterior right upper lobe are also slightly decreased in size and appear more nodular (previously were groundglass). Findings likely related to evolving infectious or inflammatory lesions however continued follow-up is recommended to assure resolution/exclude the possibility of neoplastic etiologies. -CT c/a/p: 10 mm opacity in the peripheral anterolateral right upper lobe with small central cavitation. Patchy groundglass opacity in the posterior right upper lobe. Suspect that these represent inflammatory/infectious lesions, but neoplastic etiology of either is certainly possible. Large left and moderate right pleural effusions. Resultant compressive atelectasis of portions of the lower lobes. 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 Hypertension. Multiple decubiti ulcers (elbow, sacral) -not infected Bipolar disorder. Coronary artery disease. VRE and MRSA colonized Plan: -Continue Meropenem #7 (abx d #04/02) given ESBL bacteremia -Continue PO Vancomycin #03/03 for Cdiff and add Flagyl -Cont INH for latent TB -08/17 SP Zosyn #3, Daptomycin #3 -08/15 SP Tamiflu #2, Ceftriaxone #2 -08/14 SP Cefepime and LEvaquin x1 - f/u Repeat 2 sets of Bcx -Monitor CBC/CMP, temperatures -wound care -aspiration precautions -Sx f/u Subjective Allergies: Coded Allergies: MILK (Verified Allergy, Unknown, 02/02/18) Subjective afebrile in >72 hrs bacteremic; repeat bcx NTD leukocytosis imporving significant stool output Objective Vital Signs Last 24 Hour Vital Signs Date Time Temp Pulse Resp B/P (MAP) Pulse Ox O2 Delivery O2 Flow Rate FiO2 08/23/18 12:09 98.0 61 19 117/71 (86) 96 08/23/18 11:52 64 08/23/18 08:15 97 08/23/18 08:15 97 140/82 08/23/18 07:45 79 08/23/18 07:25 Nasal Cannula 2.0 08/23/18 07:24 98.0 97 19 140/82 (101) 96 08/23/18 04:00 99.0 68 16 123/73 (90) 100 08/23/18 04:00 70 08/23/18 00:00 84 08/23/18 00:00 99.8 78 20 145/81 (102) 100 08/22/18 21:15 101 126/71 08/22/18 21:00 Nasal Cannula 2.0 08/22/18 20:00 97 Nasal Cannula 2.0 28 08/22/18 20:00 98.9 101 18 126/71 (89) 100 08/22/18 20:00 103 08/22/18 20:00 Nasal Cannula 2.0 28 08/22/18 16:00 98.0 104 19 125/79 (94) 96 08/22/18 15:58 110 Height (Feet): 6 Height (Inches): 0.40 Weight (Pounds): 155 Objective General appearance: alert, cooperative, no distress, appears stated age Head: Normocephalic, without obvious abnormality, atraumatic Eyes: conjunctivae/corneas clear. PERRL, EOM's intact. Fundi benign Throat: Lips, mucosa, and tongue normal. Teeth and gums normal Neck: supple, symmetrical, trachea midline, no adenopathy, thyroid: not enlarged, symmetric, no tenderness/mass/nodules, no carotid bruit and no JVD Lungs: clear to auscultation bilaterally Heart: regular rate and rhythm, S1, S2 normal, no murmur, click, rub or gallop Abdomen: soft, non-tender. Bowel sounds normal. No masses, no organomegaly Extremities: extremities normal, atraumatic, no cyanosis or edema/ s/p bilateral aka Pulses: 2+ and symmetric Skin: Skin color, texture, turgor normal. No rashes or lesions. multiple large decubitus ulcers. Neurologic: Grossly normal Microbiology Date/Time Source Procedure Growth Status 08/21/18 16:00 Blood Blood Culture - Preliminary NO GROWTH AFTER 24 HOURS Resulted 08/21/18 16:00 Blood Blood Culture - Preliminary NO GROWTH AFTER 24 HOURS Resulted Laboratory Tests Test 08/23/18 09:15 White Blood Count 11.3 K/UL (4.8-10.8) H Red Blood Count 2.53 M/UL (4.70-6.10) L Hemoglobin 7.9 G/DL (14.2-18.0) L Hematocrit 24.8 % (42.0-52.0) L Mean Corpuscular Volume 98 FL (80-99) Mean Corpuscular Hemoglobin 31.2 PG (27.0-31.0) H Mean Corpuscular Hemoglobin Concent 31.9 G/DL (32.0-36.0) L Red Cell Distribution Width 15.0 % (11.6-14.8) H Platelet Count 145 K/UL (150-450) L Mean Platelet Volume 5.8 FL (6.5-10.1) L Neutrophils (%) (Auto) % (45.0-75.0) Lymphocytes (%) (Auto) % (20.0-45.0) Monocytes (%) (Auto) % (1.0-10.0) Eosinophils (%) (Auto) % (0.0-3.0) Basophils (%) (Auto) % (0.0-2.0) Differential Total Cells Counted 100 Neutrophils % (Manual) 75 % (45-75) Lymphocytes % (Manual) 18 % (20-45) L Monocytes % (Manual) 6 % (1-10) Eosinophils % (Manual) 1 % (0-3) Basophils % (Manual) 0 % (0-2) Band Neutrophils 0 % (0-8) Platelet Estimate Decreased L Platelet Morphology Normal Hypochromasia 1+ Anisocytosis 1+ Sodium Level 143 MMOL/L (136-145) Potassium Level 2.6 MMOL/L (3.5-5.1) *L Chloride Level 112 MMOL/L (98-107) H Carbon Dioxide Level 25 MMOL/L (21-32) Anion Gap 5 mmol/L (5-15) Blood Urea Nitrogen 13 mg/dL (7-18) Creatinine 0.5 MG/DL (0.55-1.30) L Estimat Glomerular Filtration Rate > 60 mL/min (>60) Glucose Level 113 MG/DL (74-106) H Calcium Level 6.9 MG/DL (8.5-10.1) L Phosphorus Level 2.3 MG/DL (2.5-4.9) L Magnesium Level 1.7 MG/DL (1.8-2.4) L Total Bilirubin 0.2 MG/DL (0.2-1.0) Aspartate Amino Transf (AST/SGOT) 25 U/L (15-37) Alanine Aminotransferase (ALT/SGPT) 12 U/L (12-78) Alkaline Phosphatase 202 U/L (46-116) H Total Protein 4.9 G/DL (6.4-8.2) L Albumin 0.8 G/DL (3.4-5.0) L Globulin 4.1 g/dL Albumin/Globulin Ratio 0.2 (1.0-2.7) L Current Medications Medications (Trade) Dose Ordered Sig/Erlin Route PRN Reason Start Time Stop Time Status Last Admin Dose Admin Acetaminophen (Tylenol) 650 mg Q4H PRN NG Mild Pain (Pain Scale 1-3) 08/17/18 11:00 09/13/18 06:44 Acetaminophen (Tylenol) 650 mg Q6H PRN NG Temp > 100.5 08/17/18 11:00 09/13/18 08:59 08/19/18 00:49 Acetaminophen/ Hydrocodone Bitart ([place] 5/325) 1 tab Q4H PRN NG For Pain 08/20/18 20:00 08/24/18 19:59 Amiodarone HCl (Cordarone) 200 mg DAILY NG 08/21/18 09:00 09/19/18 08:59 08/23/18 08:15 Apixaban (Eliquis) 2.5 mg Q12HR NG 08/17/18 21:00 09/13/18 08:59 08/23/18 08:16 Aripiprazole (Abilify) 5 mg BID ORAL 08/14/18 09:00 09/13/18 08:59 08/23/18 08:15 Chlorhexidine Gluconate (Yari-Hex 2%) 1 applic DAILY@2000 TOPIC 08/22/18 20:00 09/21/18 19:59 08/22/18 21:12 Clonidine HCl (Catapres tab) 0.2 mg Q4H PRN ORAL For High Blood Pressure 08/22/18 01:45 09/21/18 01:44 Dextrose/ Electrolytes 1,000 ml @ 75 mls/hr [id number] IV 08/17/18 11:30 09/16/18 11:29 08/22/18 12:53 Digoxin (Lanoxin) 0.125 mg DAILY NG 08/21/18 09:00 09/19/18 08:59 08/23/18 08:15 Gabapentin (Neurontin) 100 mg THREE TIMES A DAY NG 08/17/18 13:00 09/13/18 12:59 08/23/18 12:15 Heparin Sodium/ Sodium Chloride (Heparin 1000 units/500ml Premix) 1,000 unit ONCE PRN IV PICC PLACEMENT 08/23/18 08:45 08/23/18 23:59 Isoniazid (Inh) 300 mg DAILY NG 08/18/18 09:00 09/13/18 08:59 08/23/18 08:15 Lactobacillus Acidophilus (Culturelle) 1 tab THREE TIMES A DAY NG 08/20/18 13:00 09/18/18 08:59 08/23/18 12:15 Lidocaine HCl (Xylocaine 1% 30ml) 30 ml ONCE PRN INJ PICC PLACEMENT 08/23/18 08:45 08/23/18 23:59 Magnesium Hydroxide (Mom) 30 ml BEDTIME NG 08/17/18 21:00 09/13/18 20:59 08/22/18 21:12 Meropenem 1 gm/ Sodium Chloride 55 ml @ 110 mls/hr Q8H IVPB 08/17/18 21:00 08/29/18 23:59 08/23/18 12:32 Metoprolol Tartrate (Lopressor) 25 mg Q12HR NG 08/20/18 21:00 09/18/18 20:59 08/23/18 08:15 Midodrine (Pro-Amatine) 5 mg THREE TIMES A DAY NG 08/17/18 13:00 09/13/18 08:59 08/23/18 12:15 Potassium Chloride 100 ml @ 50 mls/hr Q2H IVPB 08/23/18 12:30 08/23/18 16:29 08/23/18 12:15 Pyridoxine HCl (Vitamin B6) 50 mg DAILY NG 08/18/18 09:00 09/13/18 08:59 08/23/18 08:15 Sodium Hypochlorite (Dakin's Quarter Strength) 1 applic DAILY TOPIC 08/14/18 16:00 09/13/18 15:59 08/23/18 08:17 Sodium Phosphate 30 mm/Sodium Chloride 285 ml @ 47.5 mls/hr ONCE ONCE IV 08/23/18 16:30 08/23/18 22:29 Vancomycin HCl (Firvanq) 250 mg FOUR TIMES A DAY NG 08/17/18 13:00 08/29/18 23:59 08/23/18 12:15 Vitamin B Complex/ Vit C/Folic Acid (Nephrovite) 1 tab DAILY NG 08/18/18 09:00 09/13/18 08:59 08/23/18 08:16 Zinc Sulfate (Zinc Sulfate) 220 mg DAILY NG 08/18/18 09:00 09/13/18 08:59 08/23/18 08:16 Alma Elkins M.D. Aug 23, 2018 13:42
[2018-08-23] MEDS: metroNIDAZOLE 500mg tab ORAL SCH ×2 (14:12→22:10)
--- NOTE | 2018-08-23 14:45 | Surgery Progress Note ---
Surgery Progress Note Subjective Additional Comments no acute events. failed swallow study. NG tube with feeds. wounds cleaned at bedside. Objective Last 24 Hour Vital Signs Date Time Temp Pulse Resp B/P (MAP) Pulse Ox O2 Delivery O2 Flow Rate FiO2 08/23/18 12:09 98.0 61 19 117/71 (86) 96 08/23/18 11:52 64 08/23/18 08:15 97 08/23/18 08:15 97 140/82 08/23/18 07:45 79 08/23/18 07:25 Nasal Cannula 2.0 08/23/18 07:24 98.0 97 19 140/82 (101) 96 08/23/18 04:00 99.0 68 16 123/73 (90) 100 08/23/18 04:00 70 08/23/18 00:00 84 08/23/18 00:00 99.8 78 20 145/81 (102) 100 08/22/18 21:15 101 126/71 08/22/18 21:00 Nasal Cannula 2.0 08/22/18 20:00 97 Nasal Cannula 2.0 28 08/22/18 20:00 98.9 101 18 126/71 (89) 100 08/22/18 20:00 103 08/22/18 20:00 Nasal Cannula 2.0 28 08/22/18 16:00 98.0 104 19 125/79 (94) 96 08/22/18 15:58 110 I&O Intake and Output 08/22/18 08/23/18 19:00 07:00 Intake Total 1435 ml 755 ml Output Total 300 ml 1200 ml Balance 1135 ml -445 ml Free Water 200 ml 100 ml IV Total 575 ml 75 ml Tube Feeding 660 ml 580 ml Output Urine Total 300 ml 200 ml Stool Total 1000 ml # Bowel Movements 1 1 Dressing: saturated Wound: other Drains: other Cardiovascular: RSR Respiratory: clear Abdomen: soft, non-tender, non-distended Extremities: other Laboratory Tests Test 08/23/18 09:15 White Blood Count 11.3 K/UL (4.8-10.8) H Red Blood Count 2.53 M/UL (4.70-6.10) L Hemoglobin 7.9 G/DL (14.2-18.0) L Hematocrit 24.8 % (42.0-52.0) L Mean Corpuscular Volume 98 FL (80-99) Mean Corpuscular Hemoglobin 31.2 PG (27.0-31.0) H Mean Corpuscular Hemoglobin Concent 31.9 G/DL (32.0-36.0) L Red Cell Distribution Width 15.0 % (11.6-14.8) H Platelet Count 145 K/UL (150-450) L Mean Platelet Volume 5.8 FL (6.5-10.1) L Neutrophils (%) (Auto) % (45.0-75.0) Lymphocytes (%) (Auto) % (20.0-45.0) Monocytes (%) (Auto) % (1.0-10.0) Eosinophils (%) (Auto) % (0.0-3.0) Basophils (%) (Auto) % (0.0-2.0) Differential Total Cells Counted 100 Neutrophils % (Manual) 75 % (45-75) Lymphocytes % (Manual) 18 % (20-45) L Monocytes % (Manual) 6 % (1-10) Eosinophils % (Manual) 1 % (0-3) Basophils % (Manual) 0 % (0-2) Band Neutrophils 0 % (0-8) Platelet Estimate Decreased L Platelet Morphology Normal Hypochromasia 1+ Anisocytosis 1+ Sodium Level 143 MMOL/L (136-145) Potassium Level 2.6 MMOL/L (3.5-5.1) *L Chloride Level 112 MMOL/L (98-107) H Carbon Dioxide Level 25 MMOL/L (21-32) Anion Gap 5 mmol/L (5-15) Blood Urea Nitrogen 13 mg/dL (7-18) Creatinine 0.5 MG/DL (0.55-1.30) L Estimat Glomerular Filtration Rate > 60 mL/min (>60) Glucose Level 113 MG/DL (74-106) H Calcium Level 6.9 MG/DL (8.5-10.1) L Phosphorus Level 2.3 MG/DL (2.5-4.9) L Magnesium Level 1.7 MG/DL (1.8-2.4) L Total Bilirubin 0.2 MG/DL (0.2-1.0) Aspartate Amino Transf (AST/SGOT) 25 U/L (15-37) Alanine Aminotransferase (ALT/SGPT) 12 U/L (12-78) Alkaline Phosphatase 202 U/L (46-116) H Total Protein 4.9 G/DL (6.4-8.2) L Albumin 0.8 G/DL (3.4-5.0) L Globulin 4.1 g/dL Albumin/Globulin Ratio 0.2 (1.0-2.7) L Plan Problems: (1) Sepsis Assessment & Plan: IV abx trend labs will monitor wounds spoke with daughter. consent obtained. s/p wound cleaning/debridement (2) Decubitus skin ulcer Assessment & Plan: Pt presented on admission with multiple full thickness pressure injuries. Full thickness pressure injury to L elbow.Base of wound wound with 25% fibrinous slough,75% pink granulation noted.(+) maceration along borders. erythema without elevation in skin temp periwound(L)1.5cm x (W)1.8cm x(D)0.3cm. Full thickness pressure injury R trochanter .Base of wound with pink granulation.Edges adherent to base of wound .No odor or exudate noted.Darker skin tone without induration periwound. (L)4.5cm x (W)6.3cm x (D) 3cm.Undermining 12-3 by 3cm @12o'clock. Full thickness pressure injury to R ischium .Wound is malodorous.90% soft necrosis,10% pink noted at base of wound ,(+) epibole along edges .Periwound darker in skin tone and is indurated.(L)8.4cm x (W)4.3cm (D)2.5cm .Tunneling at 1o'clock by 3.6cm ,tunneling @5o'clock by 6.3cm. Full thickness sacral pressure injury with 80% soft necrosis ,20% pink granulation .Wound is malodorous with small amt brown exudate (L)8.5cm x (W)5cm x (D)2.5cm ,undermining 8-5 by 4.7cm @1o'clock. wounds with gross drainage poor nutritional status. prognosis concerning Tx.Plan: Cleanse R trochanter with Dakin's 0.125% candelaria. Loosely pack with Dakin's soaked kerlix .Cover with Optifoam drsg TID and prn. Cleanse R Ischial wound with Dakin's 0.125% candelaria.Loosely pack with Dakin's soaked kerlix. Cavilon Skin Barrier periwound. Cover with Optifoam drsg TID and prn. Cleanse Sacral wound with dakin's 0.125% candelaria.Loosely pack with Dakin's soaked kerlix.Cavilon Skin Barrier periwound.Cover with Optifoam drsg TID and prn. Cleanse L elbow with Dakin's 0.125% candelaria. Apply Dakin's moist 2x2 gauze. Cover with Optifoam drsg TID and prn. Quartet Air fluidized mattress. Reposition L side to back at least every 2hours or as tolerated. /- Patient has been improving with repeat blood cultures were without growth thus far. Spoke with patient's daughter yesterday explained that we will proceed with debridement which she and the family is consented to. Patient still unable to consent given his current medical condition and mental status. Patient was made comfortable at the bedside with the assistance of the wound care team and nursing staff we began evaluating and improving patient's wounds. The left elbow was evaluated and identified to have a 1-2 cm full-thickness injury with palpable bone no erythema or cellulitis not requiring any debridement at this time. Wound care and dressings have been going well for this wound. We will continue with wound care and dressings as above. The sacral wound was evaluated and identified to have a open portion stage IV as well as a necrotic eschar needed excision. Using a #10 scalpel and forceps the necrotic eschar was excised so that the entirety of the wound could be evaluated and cared for. There was significant soft slough noted in the wound bed and minor debridement was done but given the fact the patient is on Eliquis vision was made to forego complete debridement until safe time where patient can be off anticoagulation. The right issue wound was evaluated and noted to be fairly malodorous with soft tissue necrosis. There is near purulent drainage coming from this wound and some tracking was identified in the inferior aspect of the wound. Wound was completely evaluated and tracking noted. Wound was irrigated and cleansed until clean. Minor debridement of the necrotic wound edges was performed to allow for better evaluation of the underlying tissues. Following this Dakin's packing and dressing as noted above was continued. The right trochanter wound was identified and very clean with good granulation tissue identified not requiring further debridement at this time. Above wound care orders were continued as they have been slowly improving. There is significant amount of slough left and some debris that requires excision but needs to be done when patient is off Eliquis which at this time is not recommended. Goyo Osuna Aug 23, 2018 14:45
--- NOTE | 2018-08-23 15:19 | Cardiology Report ---
APPROVED REPORT EKG Measurement Heart [id number] Sinus tachycardia with 1st degree AV block with premature atrial complexes with aberrant conduction Left axis deviation Low voltage QRS Nonspecific ST and T wave abnormality Abnormal ECG
[2018-08-23 15:30] VITALS: BP 131/78
[2018-08-23] MEDS ORDERED: Sodium Phosphate 30 MM in NS 275 ML IV ONE (16:30)
--- NOTE | 2018-08-23 17:48 | Cardiac Electrophysiology PN ---
Assessment/Plan Assessment/Plan 1. Atrial fibrillation with rapid ventricular response. Continue Eliquis 2.5 mg bid, metoprolol 50 mg bid, digoxin 0.125 and amiodarone 200 2. Fever and sepsis. Positive blood culture. IV antibiotics per Dr. Parker. Blood cultures pending 3. History of dementia and psychosis. 4. 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 5. Sacral decubitus. 6. C. diff colitis. 7. Hypotension on Midodrine DW RN Subjective Subjective In isolation Objective Last 24 Hour Vital Signs Date Time Temp Pulse Resp B/P (MAP) Pulse Ox O2 Delivery O2 Flow Rate FiO2 08/23/18 15:35 85 08/23/18 15:30 98.0 101 19 131/78 (95) 96 08/23/18 12:09 98.0 61 19 117/71 (86) 96 08/23/18 11:52 64 08/23/18 08:15 97 08/23/18 08:15 97 140/82 08/23/18 07:45 79 08/23/18 07:25 Nasal Cannula 2.0 08/23/18 07:24 98.0 97 19 140/82 (101) 96 08/23/18 04:00 99.0 68 16 123/73 (90) 100 08/23/18 04:00 70 08/23/18 00:00 84 08/23/18 00:00 99.8 78 20 145/81 (102) 100 08/22/18 21:15 101 126/71 08/22/18 21:00 Nasal Cannula 2.0 08/22/18 20:00 97 Nasal Cannula 2.0 28 08/22/18 20:00 98.9 101 18 126/71 (89) 100 08/22/18 20:00 103 08/22/18 20:00 Nasal Cannula 2.0 28 Intake and Output 08/22/18 08/23/18 18:59 06:59 Intake Total 1570 ml 680 ml Output Total 300 ml 1200 ml Balance 1270 ml -520 ml Free Water 200 ml 100 ml IV Total 650 ml Tube Feeding 720 ml 580 ml Output Urine Total 300 ml 200 ml Stool Total 1000 ml # Bowel Movements 1 1 Laboratory Tests Test 08/23/18 09:15 08/23/18 14:45 White Blood Count 11.3 K/UL (4.8-10.8) H Red Blood Count 2.53 M/UL (4.70-6.10) L Hemoglobin 7.9 G/DL (14.2-18.0) L Hematocrit 24.8 % (42.0-52.0) L Mean Corpuscular Volume 98 FL (80-99) Mean Corpuscular Hemoglobin 31.2 PG (27.0-31.0) H Mean Corpuscular Hemoglobin Concent 31.9 G/DL (32.0-36.0) L Red Cell Distribution Width 15.0 % (11.6-14.8) H Platelet Count 145 K/UL (150-450) L Mean Platelet Volume 5.8 FL (6.5-10.1) L Neutrophils (%) (Auto) % (45.0-75.0) Lymphocytes (%) (Auto) % (20.0-45.0) Monocytes (%) (Auto) % (1.0-10.0) Eosinophils (%) (Auto) % (0.0-3.0) Basophils (%) (Auto) % (0.0-2.0) Differential Total Cells Counted 100 Neutrophils % (Manual) 75 % (45-75) Lymphocytes % (Manual) 18 % (20-45) L Monocytes % (Manual) 6 % (1-10) Eosinophils % (Manual) 1 % (0-3) Basophils % (Manual) 0 % (0-2) Band Neutrophils 0 % (0-8) Platelet Estimate Decreased L Platelet Morphology Normal Hypochromasia 1+ Anisocytosis 1+ Sodium Level 143 MMOL/L (136-145) Potassium Level 2.6 MMOL/L (3.5-5.1) *L Chloride Level 112 MMOL/L (98-107) H Carbon Dioxide Level 25 MMOL/L (21-32) Anion Gap 5 mmol/L (5-15) Blood Urea Nitrogen 13 mg/dL (7-18) Creatinine 0.5 MG/DL (0.55-1.30) L Estimat Glomerular Filtration Rate > 60 mL/min (>60) Glucose Level 113 MG/DL (74-106) H Calcium Level 6.9 MG/DL (8.5-10.1) L Phosphorus Level 2.3 MG/DL (2.5-4.9) L Magnesium Level 1.7 MG/DL (1.8-2.4) L Total Bilirubin 0.2 MG/DL (0.2-1.0) Aspartate Amino Transf (AST/SGOT) 25 U/L (15-37) Alanine Aminotransferase (ALT/SGPT) 12 U/L (12-78) Alkaline Phosphatase 202 U/L (46-116) H Total Protein 4.9 G/DL (6.4-8.2) L Albumin 0.8 G/DL (3.4-5.0) L Globulin 4.1 g/dL Albumin/Globulin Ratio 0.2 (1.0-2.7) L Arterial Blood pH 7.447 (7.350-7.450) Arterial Blood Partial Pressure CO2 36.7 mmHg (35.0-45.0) Arterial Blood Partial Pressure O2 58.0 mmHg (75.0-100.0) L Arterial Blood HCO3 24.8 mmol/L (22.0-26.0) Arterial Blood Oxygen Saturation 90.8 % (95-100) L Arterial Blood Base Excess 0.8 (-2-2) Trell Test Positive Microbiology Date/Time Source Procedure Growth Status 08/21/18 16:00 Blood Blood Culture - Preliminary NO GROWTH AFTER 24 HOURS Resulted 08/21/18 16:00 Blood Blood Culture - Preliminary NO GROWTH AFTER 24 HOURS Resulted Objective HEAD AND NECK: no JVD. NG tube. LUNGS: Have coarse rhonchi. CARDIOVASCULAR: Irregular S1 and S2 with no gallop or murmur. ABDOMEN: Soft. EXTREMITIES: Bilateral above-knee amputation. Amandeep Arora MD Aug 23, 2018 17:47
--- NOTE | 2018-08-23 18:11 | General Progress Note ---
Assessment/Plan Assessment/Plan Assessment - C Difficile colitis - failed swallow eval - Malnutrition , NGT - s/p b/l AKA - anemia - bacteremia, leukocytosis - improving Recommendations - continue Vanco PO - taper down broad spect abx when feasible - probiotics - elevate HOB - replace K - TF - Poor Px Subjective Allergies: Coded Allergies: MILK (Verified Allergy, Unknown, 02/02/18) Subjective above noted NGT feeds tolerated non interactive Low K noted - being replaced Objective Last 24 Hour Vital Signs Date Time Temp Pulse Resp B/P (MAP) Pulse Ox O2 Delivery O2 Flow Rate FiO2 08/23/18 15:35 85 08/23/18 15:30 98.0 101 19 131/78 (95) 96 08/23/18 12:09 98.0 61 19 117/71 (86) 96 08/23/18 11:52 64 08/23/18 08:15 97 08/23/18 08:15 97 140/82 08/23/18 07:45 79 08/23/18 07:25 Nasal Cannula 2.0 08/23/18 07:24 98.0 97 19 140/82 (101) 96 08/23/18 04:00 99.0 68 16 123/73 (90) 100 08/23/18 04:00 70 08/23/18 00:00 84 08/23/18 00:00 99.8 78 20 145/81 (102) 100 08/22/18 21:15 101 126/71 08/22/18 21:00 Nasal Cannula 2.0 08/22/18 20:00 97 Nasal Cannula 2.0 28 08/22/18 20:00 98.9 101 18 126/71 (89) 100 08/22/18 20:00 103 08/22/18 20:00 Nasal Cannula 2.0 28 Intake and Output 08/22/18 08/23/18 18:59 06:59 Intake Total 1570 ml 680 ml Output Total 300 ml 1200 ml Balance 1270 ml -520 ml Free Water 200 ml 100 ml IV Total 650 ml Tube Feeding 720 ml 580 ml Output Urine Total 300 ml 200 ml Stool Total 1000 ml # Bowel Movements 1 1 Laboratory Tests 08/23/18 09:15: White Blood Count 11.3H, Red Blood Count 2.53L, Hemoglobin 7.9L, Hematocrit 24.8L, Mean Corpuscular Volume 98, Mean Corpuscular Hemoglobin 31.2H, Mean Corpuscular Hemoglobin Concent 31.9L, Red Cell Distribution Width 15.0H, Platelet Count 145L, Mean Platelet Volume 5.8L, Neutrophils (%) (Auto) , Lymphocytes (%) (Auto) , Monocytes (%) (Auto) , Eosinophils (%) (Auto) , Basophils (%) (Auto) , Differential Total Cells Counted 100, Neutrophils % ( Manual) 75, Lymphocytes % (Manual) 18L, Monocytes % (Manual) 6, Eosinophils % ( Manual) 1, Basophils % (Manual) 0, Band Neutrophils 0, Platelet Estimate DecreasedL, Platelet Morphology Normal, Hypochromasia 1+, Anisocytosis 1+, Sodium Level 143, Potassium Level 2.6*L, Chloride Level 112H, Carbon Dioxide Level 25, Anion Gap 5, Blood Urea Nitrogen 13, Creatinine 0.5L, Estimat Glomerular Filtration Rate > 60, Glucose Level 113H, Calcium Level 6.9L, Phosphorus Level 2.3L, Magnesium Level 1.7L, Total Bilirubin 0.2, Aspartate Amino Transf (AST/SGOT) 25, Alanine Aminotransferase (ALT/SGPT) 12, Alkaline Phosphatase 202H, Total Protein 4.9L, Albumin 0.8L, Globulin 4.1, Albumin/ Globulin Ratio 0.2L 08/23/18 14:45: Arterial Blood pH 7.447, Arterial Blood Partial Pressure CO2 36.7, Arterial Blood Partial Pressure O2 58.0L, Arterial Blood HCO3 24.8, Arterial Blood Oxygen Saturation 90.8L, Arterial Blood Base Excess 0.8, Trell Test Positive Height (Feet): 6 Height (Inches): 0.40 Weight (Pounds): 155 Objective Elderly AA man NCAT supple CTA RRR Abd soft distended, minimally TTP (+) Gina Graham MD Aug 23, 2018 18:11
--- NOTE | 2018-08-23 19:05 | Internal Med Progress Note ---
Subjective Date of Service: Aug 23, 2018 Physician Name Daniel Jackson Attending Physician Pedro Caban MD Current Medications Medications (Trade) Dose Ordered Sig/Erlin Route PRN Reason Start Time Stop Time Status Last Admin Dose Admin Acetaminophen (Tylenol) 650 mg Q4H PRN NG Mild Pain (Pain Scale 1-3) 08/17/18 11:00 09/13/18 06:44 Acetaminophen (Tylenol) 650 mg Q6H PRN NG Temp > 100.5 08/17/18 11:00 09/13/18 08:59 08/19/18 00:49 Acetaminophen/ Hydrocodone Bitart ([place]on 5/325) 1 tab Q4H PRN NG For Pain 08/20/18 20:00 08/24/18 19:59 Amiodarone HCl (Cordarone) 200 mg DAILY NG 08/21/18 09:00 09/19/18 08:59 08/23/18 08:15 Apixaban (Eliquis) 2.5 mg Q12HR NG 08/17/18 21:00 09/13/18 08:59 08/23/18 08:16 Aripiprazole (Abilify) 5 mg BID ORAL 08/14/18 09:00 09/13/18 08:59 08/23/18 17:11 Chlorhexidine Gluconate (Yari-Hex 2%) 1 applic DAILY@2000 TOPIC 08/22/18 20:00 09/21/18 19:59 08/22/18 21:12 Clonidine HCl (Catapres tab) 0.2 mg Q4H PRN ORAL For High Blood Pressure 08/22/18 01:45 09/21/18 01:44 Dextrose/ Electrolytes 1,000 ml @ 75 mls/hr [id number] IV 08/17/18 11:30 09/16/18 11:29 08/23/18 14:12 Digoxin (Lanoxin) 0.125 mg DAILY NG 08/21/18 09:00 09/19/18 08:59 08/23/18 08:15 Gabapentin (Neurontin) 100 mg THREE TIMES A DAY NG 08/17/18 13:00 09/13/18 12:59 08/23/18 17:11 Heparin Sodium/ Sodium Chloride (Heparin 1000 units/500ml Premix) 1,000 unit ONCE PRN IV PICC PLACEMENT 08/23/18 08:45 08/23/18 23:59 Isoniazid (Inh) 300 mg DAILY NG 08/18/18 09:00 09/13/18 08:59 08/23/18 08:15 Lactobacillus Acidophilus (Culturelle) 1 tab THREE TIMES A DAY NG 08/20/18 13:00 09/18/18 08:59 08/23/18 17:11 Lidocaine HCl (Xylocaine 1% 30ml) 30 ml ONCE PRN INJ PICC PLACEMENT 08/23/18 08:45 08/23/18 23:59 Magnesium Hydroxide (Mom) 30 ml BEDTIME NG 08/17/18 21:00 09/13/18 20:59 08/22/18 21:12 Meropenem 1 gm/ Sodium Chloride 55 ml @ 110 mls/hr Q8H IVPB 08/17/18 21:00 08/29/18 23:59 08/23/18 12:32 Metoprolol Tartrate (Lopressor) 50 mg Q12HR NG 08/23/18 21:00 09/22/18 20:59 Metronidazole (Flagyl) 500 mg Q8HR ORAL 08/23/18 14:00 08/30/18 13:59 08/23/18 14:12 Midodrine (Pro-Amatine) 5 mg THREE TIMES A DAY NG 08/17/18 13:00 09/13/18 08:59 08/23/18 17:11 Pyridoxine HCl (Vitamin B6) 50 mg DAILY NG 08/18/18 09:00 09/13/18 08:59 08/23/18 08:15 Sodium Hypochlorite (Dakin's Quarter Strength) 1 applic DAILY TOPIC 08/14/18 16:00 09/13/18 15:59 08/23/18 08:17 Sodium Phosphate 30 mm/Sodium Chloride 285 ml @ 47.5 mls/hr ONCE ONCE IV 08/23/18 16:30 08/23/18 22:29 08/23/18 16:36 Vancomycin HCl (Firvanq) 250 mg FOUR TIMES A DAY NG 08/17/18 13:00 08/29/18 23:59 08/23/18 17:10 Vitamin B Complex/ Vit C/Folic Acid (Nephrovite) 1 tab DAILY NG 08/18/18 09:00 09/13/18 08:59 08/23/18 08:16 Zinc Sulfate (Zinc Sulfate) 220 mg DAILY NG 08/18/18 09:00 09/13/18 08:59 08/23/18 08:16 Allergies: Coded Allergies: MILK (Verified Allergy, Unknown, 02/02/18) ROS Limited/Unobtainable: Yes Subjective 68 YO M admitted with fever and leukocytosis. Now Sepsis and C. Difficile colitis/diarrhea. Cover for Int Med-Dr Caban. Objective Last Vital Signs Date Time Temp Pulse Resp B/P (MAP) Pulse Ox O2 Delivery O2 Flow Rate FiO2 08/23/18 15:35 85 08/23/18 15:30 98.0 19 131/78 (95) 96 08/23/18 07:25 Nasal Cannula 2.0 08/22/18 20:00 28 Laboratory Tests Test 08/23/18 09:15 08/23/18 14:45 White Blood Count 11.3 K/UL (4.8-10.8) H Red Blood Count 2.53 M/UL (4.70-6.10) L Hemoglobin 7.9 G/DL (14.2-18.0) L Hematocrit 24.8 % (42.0-52.0) L Mean Corpuscular Volume 98 FL (80-99) Mean Corpuscular Hemoglobin 31.2 PG (27.0-31.0) H Mean Corpuscular Hemoglobin Concent 31.9 G/DL (32.0-36.0) L Red Cell Distribution Width 15.0 % (11.6-14.8) H Platelet Count 145 K/UL (150-450) L Mean Platelet Volume 5.8 FL (6.5-10.1) L Neutrophils (%) (Auto) % (45.0-75.0) Lymphocytes (%) (Auto) % (20.0-45.0) Monocytes (%) (Auto) % (1.0-10.0) Eosinophils (%) (Auto) % (0.0-3.0) Basophils (%) (Auto) % (0.0-2.0) Differential Total Cells Counted 100 Neutrophils % (Manual) 75 % (45-75) Lymphocytes % (Manual) 18 % (20-45) L Monocytes % (Manual) 6 % (1-10) Eosinophils % (Manual) 1 % (0-3) Basophils % (Manual) 0 % (0-2) Band Neutrophils 0 % (0-8) Platelet Estimate Decreased L Platelet Morphology Normal Hypochromasia 1+ Anisocytosis 1+ Sodium Level 143 MMOL/L (136-145) Potassium Level 2.6 MMOL/L (3.5-5.1) *L Chloride Level 112 MMOL/L (98-107) H Carbon Dioxide Level 25 MMOL/L (21-32) Anion Gap 5 mmol/L (5-15) Blood Urea Nitrogen 13 mg/dL (7-18) Creatinine 0.5 MG/DL (0.55-1.30) L Estimat Glomerular Filtration Rate > 60 mL/min (>60) Glucose Level 113 MG/DL (74-106) H Calcium Level 6.9 MG/DL (8.5-10.1) L Phosphorus Level 2.3 MG/DL (2.5-4.9) L Magnesium Level 1.7 MG/DL (1.8-2.4) L Total Bilirubin 0.2 MG/DL (0.2-1.0) Aspartate Amino Transf (AST/SGOT) 25 U/L (15-37) Alanine Aminotransferase (ALT/SGPT) 12 U/L (12-78) Alkaline Phosphatase 202 U/L (46-116) H Total Protein 4.9 G/DL (6.4-8.2) L Albumin 0.8 G/DL (3.4-5.0) L Globulin 4.1 g/dL Albumin/Globulin Ratio 0.2 (1.0-2.7) L Arterial Blood pH 7.447 (7.350-7.450) Arterial Blood Partial Pressure CO2 36.7 mmHg (35.0-45.0) Arterial Blood Partial Pressure O2 58.0 mmHg (75.0-100.0) L Arterial Blood HCO3 24.8 mmol/L (22.0-26.0) Arterial Blood Oxygen Saturation 90.8 % (95-100) L Arterial Blood Base Excess 0.8 (-2-2) Trell Test Positive Microbiology Date/Time Source Procedure Growth Status 08/21/18 16:00 Blood Blood Culture - Preliminary NO GROWTH AFTER 24 HOURS Resulted 08/21/18 16:00 Blood Blood Culture - Preliminary NO GROWTH AFTER 24 HOURS Resulted Intake and Output 08/22/18 08/23/18 18:59 06:59 Intake Total 1570 ml 680 ml Output Total 300 ml 1200 ml Balance 1270 ml -520 ml Free Water 200 ml 100 ml IV Total 650 ml Tube Feeding 720 ml 580 ml Output Urine Total 300 ml 200 ml Stool Total 1000 ml # Bowel Movements 1 1 Objective General Appearance: WD/WN, no apparent distress, lethargic EENT: PERRL/EOMI, normal ENT inspection Neck: non-tender, normal alignment, supple, normal inspection Cardiovascular: normal peripheral pulses, normal rate, regular rhythm, no gallop/murmur, no JVD Respiratory/Chest: chest wall non-tender, lungs clear, normal breath sounds, no respiratory distress, no accessory muscle use Abdomen: normal bowel sounds, non tender, soft, no organomegaly, no mass Extremities: normal range of motion, non-tender 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 Continue zosyn and meropenem per ID. 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 (5) Renal failure (ARF), acute on chronic (6) Decubitus ulcer Assessment & Plan: Await debridement per surgery-see note (7) Bipolar II disorder (8) Leukocytosis (9) Clostridium difficile colitis Assessment & Plan: Continue oral vanco per ID (10) CVA (cerebral vascular accident) (11) Acute metabolic encephalopathy (12) HTN (hypertension) (13) CAD (coronary artery disease) (14) Atrial fibrillation Assessment & Plan: Continue eliquis (15) Pneumonia Assessment & Plan: Continue INH per ID-see note (16) Hypernatremia Assessment & Plan: continue D5NS + KCL (17) Hypokalemia Assessment & Plan: Cont D5NS +Kcl Status: not improved Daniel Jackson MD Aug 23, 2018 19:05
[2018-08-23 20:00] VITALS: BP 104/62
[2018-08-23] MEDS ORDERED: Metoprolol 25mg tab NG SCH (21:00)
[2018-08-23] MEDS: Metoprolol Tartrate 50mg tab NG SCH (21:00)
[2018-08-23] MEDS: Milk of Magnesia 30ml Ud NG SCH (22:10)
[2018-08-23] MEDS: Dyna-Hex 2% Top Sol 2oz TOPIC SCH (22:11)
[2018-08-24] VITALS: BP 138/60
[2018-08-24 04:00] VITALS: BP 135/65
[2018-08-24] MEDS: D5W w/KCl 20mEq 1,000 ML IV SCH ×2 (06:00→15:40)
[2018-08-24] MEDS: Meropenem 1 GM in NS 55 ML IVPB SCH ×3 (06:01→20:50)
[2018-08-24] MEDS: metroNIDAZOLE 500mg tab ORAL SCH ×3 (06:04→22:42)
[2018-08-24 07:13] LABS: HEMATOCRIT 23.2 % (42.0-52.0); HEMOGLOBIN 7.3 G/DL (14.2-18.0); MEAN CORPUSCULAR VOLUME 98 FL (80-99); PLATELET COUNT 150 K/UL (150-450); RED BLOOD COUNT 2.37 M/UL (4.70-6.10); RED CELL DISTRIBUTION WIDTH 16.4 % (11.6-14.8); WHITE BLOOD COUNT 9.5 K/UL (4.8-10.8)
[2018-08-24 07:32] LABS: ALANINE AMINOTRANSFERASE 9 U/L (12-78); ALBUMIN 0.9 G/DL (3.4-5.0); ALBUMIN/GLOBULIN RATIO 0.2 (1.0-2.7); ALKALINE PHOSPHATASE 176 U/L (46-116); ANION GAP 6 mmol/L (5-15); ASPARTATE AMINO TRANSFERASE 25 U/L (15-37); BILIRUBIN,TOTAL 0.3 MG/DL (0.2-1.0); BLOOD UREA NITROGEN 14 mg/dL (7-18); CALCIUM 7.3 MG/DL (8.5-10.1); CARBON DIOXIDE 27 MMOL/L (21-32); CHLORIDE 112 MMOL/L (98-107); CREATININE 0.5 MG/DL (0.55-1.30); SODIUM 145 MMOL/L (136-145)
[2018-08-24 07:33] LABS: POTASSIUM 2.6 MMOL/L (3.5-5.1)
[2018-08-24 08:00] VITALS: BP 140/75
[2018-08-24] MEDS: Dakin's 0.125% Soln (Quarter Strength) 16oz TOPIC SCH (08:41)
[2018-08-24] MEDS: Digoxin 0.125mg tab NG SCH (08:42)
[2018-08-24] MEDS: Metoprolol Tartrate 50mg tab NG SCH ×2 (08:42→20:50)
[2018-08-24] MEDS: Lactobacillus-GG tablet NG SCH ×3 (08:42→17:25)
[2018-08-24] MEDS: Pyridoxine 50mg tab NG SCH (08:42)
[2018-08-24] MEDS: Nephrovite tab (Rena-Vite) NG SCH (08:42)
[2018-08-24] MEDS: Amiodarone 200mg tab NG SCH (08:42)
[2018-08-24] MEDS: Isoniazid 300mg tab NG SCH (08:42)
[2018-08-24] MEDS: Zinc Sulfate 220mg cap NG SCH (08:43)
[2018-08-24] MEDS: Eliquis 2.5mg tablet NG SCH ×2 (08:43→20:50)
[2018-08-24] MEDS: Vancomycin oral 125mg/2.5ml NG SCH ×4 (08:49→20:51)
--- NOTE | 2018-08-24 10:54 | Diagnostic Imaging Report ---
Indication: Shortness of breath Technique: One view of the chest Comparison: 08/23/2018 Findings: Interim placement of right arm PICC, tip projecting at the level the mid superior vena cava. Gastric tube projects in satisfactory position. Large left pleural effusion is again demonstrated, unchanged. Atelectasis or patchy consolidation is seen at the right lung base. This may be slightly increased. Impression: New or increased right basilar atelectasis or patchy infiltrate Persistent large left pleural effusion PICC in satisfactory position Other stable findings as described
[2018-08-24 12:00] VITALS: BP 125/60
--- NOTE | 2018-08-24 13:21 | Pulmonology Progress Note ---
Assessment/Plan Problems: (1) Clostridium difficile colitis (2) Acute metabolic encephalopathy (3) Sepsis (4) Decubitus skin ulcer (5) UTI (urinary tract infection) (6) Anemia (7) CVA (cerebral vascular accident) Assessment/Plan unchanged mental status, failed swallow study had debridement yesterday telemetry records reviewed, still tachy with PAC's and PVC's K and phos supplement again today iv abx iv fluids On vanco PO check electrolytes continue current meds. dvt prophylaxis. social service consult to get family's expectations and code status discussion. Subjective ROS Limited/Unobtainable: No Constitutional: Reports: no symptoms HEENT: Repors: no symptoms Respiratory: Reports: no symptoms Allergies: Coded Allergies: MILK (Verified Allergy, Unknown, 02/02/18) Objective Last 24 Hour Vital Signs Date Time Temp Pulse Resp B/P (MAP) Pulse Ox O2 Delivery O2 Flow Rate FiO2 08/24/18 12:00 97.9 99 16 125/60 (81) 99 08/24/18 09:00 Nasal Cannula 2.0 08/24/18 08:42 99 140/75 08/24/18 08:42 99 08/24/18 08:00 97.9 99 20 140/75 (96) 99 08/24/18 07:52 Nasal Cannula 2.0 28 08/24/18 07:52 98 Nasal Cannula 2.0 28 08/24/18 04:00 78 08/24/18 04:00 99.0 78 20 135/65 (88) 99 08/24/18 00:00 99.9 80 20 138/60 (86) 100 08/24/18 00:00 80 08/23/18 21:00 61 100/62 08/23/18 21:00 Nasal Cannula 2.0 08/23/18 20:37 96 Nasal Cannula 2.0 28 08/23/18 20:37 Nasal Cannula 2.0 28 08/23/18 20:00 99.5 66 18 104/62 (76) 96 08/23/18 15:35 85 08/23/18 15:30 98.0 101 19 131/78 (95) 96 Intake and Output 08/23/18 08/24/18 19:00 07:00 Intake Total 1230 ml 600 ml Output Total 200 ml Balance 1030 ml 600 ml Free Water 100 ml IV Total 650 ml Tube Feeding 480 ml 600 ml Output Urine Total 200 ml General Appearance: WD/WN, no acute distress HEENT: normocephalic Respiratory/Chest: chest wall non-tender, no respiratory distress Cardiovascular: normal peripheral pulses, regular rhythm Abdomen: normal bowel sounds Microbiology Date/Time Source Procedure Growth Status 08/21/18 16:00 Blood Blood Culture - Preliminary NO GROWTH AFTER 48 HOURS Resulted 08/21/18 16:00 Blood Blood Culture - Preliminary NO GROWTH AFTER 48 HOURS Resulted Laboratory Tests 08/23/18 14:45: Arterial Blood pH 7.447, Arterial Blood Partial Pressure CO2 36.7, Arterial Blood Partial Pressure O2 58.0L, Arterial Blood HCO3 24.8, Arterial Blood Oxygen Saturation 90.8L, Arterial Blood Base Excess 0.8, Trell Test Positive 08/24/18 05:00: White Blood Count 9.5, Red Blood Count 2.37L, Hemoglobin 7.3L, Hematocrit 23.2L , Mean Corpuscular Volume 98, Mean Corpuscular Hemoglobin 31.0, Mean Corpuscular Hemoglobin Concent 31.6L, Red Cell Distribution Width 16.4H, Platelet Count 150, Mean Platelet Volume 5.9L, Neutrophils (%) (Auto) , Lymphocytes (%) (Auto) , Monocytes (%) (Auto) , Eosinophils (%) (Auto) , Basophils (%) (Auto) , Differential Total Cells Counted 100, Neutrophils % ( Manual) 71, Lymphocytes % (Manual) 20, Monocytes % (Manual) 9, Eosinophils % ( Manual) 0, Basophils % (Manual) 0, Band Neutrophils 0, Platelet Estimate Adequate, Platelet Morphology Normal, Hypochromasia 2+, Anisocytosis 2+, Sodium Level 145, Potassium Level 2.6*L, Chloride Level 112H, Carbon Dioxide Level 27, Anion Gap 6, Blood Urea Nitrogen 14, Creatinine 0.5L, Estimat Glomerular Filtration Rate > 60, Glucose Level 96, Calcium Level 7.3L, Total Bilirubin 0.3 , Aspartate Amino Transf (AST/SGOT) 25, Alanine Aminotransferase (ALT/SGPT) 9L, Alkaline Phosphatase 176H, Pro-B-Type Natriuretic Peptide 1685H, Total Protein 4.9L, Albumin 0.9L, Globulin 4.0, Albumin/Globulin Ratio 0.2L Current Medications Medications (Trade) Dose Ordered Sig/Erlin Route PRN Reason Start Time Stop Time Status Last Admin Dose Admin Acetaminophen (Tylenol) 650 mg Q4H PRN NG Mild Pain (Pain Scale 1-3) 08/17/18 11:00 09/13/18 06:44 Acetaminophen (Tylenol) 650 mg Q6H PRN NG Temp > 100.5 08/17/18 11:00 09/13/18 08:59 08/19/18 00:49 Acetaminophen/ Hydrocodone Bitart ([place] 5/325) 1 tab Q4H PRN NG For Pain 08/20/18 20:00 08/24/18 19:59 Amiodarone HCl (Cordarone) 200 mg DAILY NG 08/21/18 09:00 09/19/18 08:59 08/24/18 08:42 Apixaban (Eliquis) 2.5 mg Q12HR NG 08/17/18 21:00 09/13/18 08:59 08/24/18 08:43 Aripiprazole (Abilify) 5 mg BID ORAL 08/14/18 09:00 09/13/18 08:59 08/24/18 08:42 Chlorhexidine Gluconate (Yari-Hex 2%) 1 applic DAILY@2000 TOPIC 08/22/18 20:00 09/21/18 19:59 08/23/18 22:11 Clonidine HCl (Catapres tab) 0.2 mg Q4H PRN ORAL For High Blood Pressure 08/22/18 01:45 09/21/18 01:44 Dextrose/ Electrolytes 1,000 ml @ 75 mls/hr [id number] IV 08/17/18 11:30 09/16/18 11:29 08/24/18 06:00 Digoxin (Lanoxin) 0.125 mg DAILY NG 08/21/18 09:00 09/19/18 08:59 08/24/18 08:42 Gabapentin (Neurontin) 100 mg THREE TIMES A DAY NG 08/17/18 13:00 09/13/18 12:59 08/24/18 12:28 Isoniazid (Inh) 300 mg DAILY NG 08/18/18 09:00 09/13/18 08:59 08/24/18 08:42 Lactobacillus Acidophilus (Culturelle) 1 tab THREE TIMES A DAY NG 08/20/18 13:00 09/18/18 08:59 08/24/18 12:29 Magnesium Hydroxide (Mom) 30 ml BEDTIME NG 08/17/18 21:00 09/13/18 20:59 08/23/18 22:10 Meropenem 1 gm/ Sodium Chloride 55 ml @ 110 mls/hr Q8H IVPB 08/17/18 21:00 08/29/18 23:59 08/24/18 12:29 Metoprolol Tartrate (Lopressor) 50 mg Q12HR NG 08/23/18 21:00 09/22/18 20:59 08/24/18 08:42 Metronidazole (Flagyl) 500 mg Q8HR ORAL 08/23/18 14:00 08/30/18 13:59 08/24/18 06:04 Midodrine (Pro-Amatine) 5 mg THREE TIMES A DAY NG 08/17/18 13:00 09/13/18 08:59 08/23/18 17:11 Potassium Chloride 100 ml @ 100 mls/hr Q1H IVPB 08/24/18 13:30 08/24/18 17:29 Potassium Chloride (K-Dur) 40 meq Q4H NG 08/24/18 13:15 08/24/18 17:16 UNV Pyridoxine HCl (Vitamin B6) 50 mg DAILY NG 08/18/18 09:00 09/13/18 08:59 08/24/18 08:42 Sodium Hypochlorite (Dakin's Quarter Strength) 1 applic DAILY TOPIC 08/14/18 16:00 09/13/18 15:59 08/24/18 08:41 Vancomycin HCl (Firvanq) 250 mg FOUR TIMES A DAY NG 08/17/18 13:00 08/29/18 23:59 08/24/18 12:29 Vitamin B Complex/ Vit C/Folic Acid (Nephrovite) 1 tab DAILY NG 08/18/18 09:00 09/13/18 08:59 08/24/18 08:42 Zinc Sulfate (Zinc Sulfate) 220 mg DAILY NG 08/18/18 09:00 09/13/18 08:59 08/24/18 08:43 Minerva Montesinos MD Aug 24, 2018 13:21
--- NOTE | 2018-08-24 13:45 | Surgery Progress Note ---
Surgery Progress Note Subjective Additional Comments comfortable. leukocytosis improved. exam stable. Objective Last 24 Hour Vital Signs Date Time Temp Pulse Resp B/P (MAP) Pulse Ox O2 Delivery O2 Flow Rate FiO2 08/24/18 12:00 97.9 99 16 125/60 (81) 99 08/24/18 09:00 Nasal Cannula 2.0 08/24/18 08:42 99 140/75 08/24/18 08:42 99 08/24/18 08:00 97.9 99 20 140/75 (96) 99 08/24/18 07:52 Nasal Cannula 2.0 28 08/24/18 07:52 98 Nasal Cannula 2.0 28 08/24/18 04:00 78 08/24/18 04:00 99.0 78 20 135/65 (88) 99 08/24/18 00:00 99.9 80 20 138/60 (86) 100 08/24/18 00:00 80 08/23/18 21:00 61 100/62 08/23/18 21:00 Nasal Cannula 2.0 08/23/18 20:37 96 Nasal Cannula 2.0 28 08/23/18 20:37 Nasal Cannula 2.0 28 08/23/18 20:00 99.5 66 18 104/62 (76) 96 08/23/18 15:35 85 08/23/18 15:30 98.0 101 19 131/78 (95) 96 I&O Intake and Output 08/23/18 08/24/18 19:00 07:00 Intake Total 1230 ml 600 ml Output Total 200 ml Balance 1030 ml 600 ml Free Water 100 ml IV Total 650 ml Tube Feeding 480 ml 600 ml Output Urine Total 200 ml Dressing: saturated Wound: other Drains: other Cardiovascular: RSR Respiratory: clear Abdomen: soft, flat, distended, non-tender Extremities: other Laboratory Tests Test 08/23/18 14:45 08/24/18 05:00 Arterial Blood pH 7.447 (7.350-7.450) Arterial Blood Partial Pressure CO2 36.7 mmHg (35.0-45.0) Arterial Blood Partial Pressure O2 58.0 mmHg (75.0-100.0) L Arterial Blood HCO3 24.8 mmol/L (22.0-26.0) Arterial Blood Oxygen Saturation 90.8 % (95-100) L Arterial Blood Base Excess 0.8 (-2-2) Trell Test Positive White Blood Count 9.5 K/UL (4.8-10.8) Red Blood Count 2.37 M/UL (4.70-6.10) L Hemoglobin 7.3 G/DL (14.2-18.0) L Hematocrit 23.2 % (42.0-52.0) L Mean Corpuscular Volume 98 FL (80-99) Mean Corpuscular Hemoglobin 31.0 PG (27.0-31.0) Mean Corpuscular Hemoglobin Concent 31.6 G/DL (32.0-36.0) L Red Cell Distribution Width 16.4 % (11.6-14.8) H Platelet Count 150 K/UL (150-450) Mean Platelet Volume 5.9 FL (6.5-10.1) L Neutrophils (%) (Auto) % (45.0-75.0) Lymphocytes (%) (Auto) % (20.0-45.0) Monocytes (%) (Auto) % (1.0-10.0) Eosinophils (%) (Auto) % (0.0-3.0) Basophils (%) (Auto) % (0.0-2.0) Differential Total Cells Counted 100 Neutrophils % (Manual) 71 % (45-75) Lymphocytes % (Manual) 20 % (20-45) Monocytes % (Manual) 9 % (1-10) Eosinophils % (Manual) 0 % (0-3) Basophils % (Manual) 0 % (0-2) Band Neutrophils 0 % (0-8) Platelet Estimate Adequate Platelet Morphology Normal Hypochromasia 2+ Anisocytosis 2+ Sodium Level 145 MMOL/L (136-145) Potassium Level 2.6 MMOL/L (3.5-5.1) *L Chloride Level 112 MMOL/L (98-107) H Carbon Dioxide Level 27 MMOL/L (21-32) Anion Gap 6 mmol/L (5-15) Blood Urea Nitrogen 14 mg/dL (7-18) Creatinine 0.5 MG/DL (0.55-1.30) L Estimat Glomerular Filtration Rate > 60 mL/min (>60) Glucose Level 96 MG/DL (74-106) Calcium Level 7.3 MG/DL (8.5-10.1) L Total Bilirubin 0.3 MG/DL (0.2-1.0) Aspartate Amino Transf (AST/SGOT) 25 U/L (15-37) Alanine Aminotransferase (ALT/SGPT) 9 U/L (12-78) L Alkaline Phosphatase 176 U/L (46-116) H Pro-B-Type Natriuretic Peptide 1685 pg/mL (0-125) H Total Protein 4.9 G/DL (6.4-8.2) L Albumin 0.9 G/DL (3.4-5.0) L Globulin 4.0 g/dL Albumin/Globulin Ratio 0.2 (1.0-2.7) L Plan Problems: (1) Sepsis Assessment & Plan: IV abx trend labs will monitor wounds spoke with daughter. consent obtained. s/p wound cleaning/debridement recommend PEG (2) Decubitus skin ulcer Assessment & Plan: Pt presented on admission with multiple full thickness pressure injuries. Full thickness pressure injury to L elbow.Base of wound wound with 25% fibrinous slough,75% pink granulation noted.(+) maceration along borders. erythema without elevation in skin temp periwound(L)1.5cm x (W)1.8cm x(D)0.3cm. Full thickness pressure injury R trochanter .Base of wound with pink granulation.Edges adherent to base of wound .No odor or exudate noted.Darker skin tone without induration periwound. (L)4.5cm x (W)6.3cm x (D) 3cm.Undermining 12-3 by 3cm @12o'clock. Full thickness pressure injury to R ischium .Wound is malodorous.90% soft necrosis,10% pink noted at base of wound ,(+) epibole along edges .Periwound darker in skin tone and is indurated.(L)8.4cm x (W)4.3cm (D)2.5cm .Tunneling at 1o'clock by 3.6cm ,tunneling @5o'clock by 6.3cm. Full thickness sacral pressure injury with 80% soft necrosis ,20% pink granulation .Wound is malodorous with small amt brown exudate (L)8.5cm x (W)5cm x (D)2.5cm ,undermining 8-5 by 4.7cm @1o'clock. wounds with gross drainage poor nutritional status. prognosis concerning Tx.Plan: Cleanse R trochanter with Dakin's 0.125% candelaria. Loosely pack with Dakin's soaked kerlix .Cover with Optifoam drsg TID and prn. Cleanse R Ischial wound with Dakin's 0.125% candelaria.Loosely pack with Dakin's soaked kerlix. Cavilon Skin Barrier periwound. Cover with Optifoam drsg TID and prn. Cleanse Sacral wound with dakin's 0.125% candelaria.Loosely pack with Dakin's soaked kerlix.Cavilon Skin Barrier periwound.Cover with Optifoam drsg TID and prn. Cleanse L elbow with Dakin's 0.125% candelaria. Apply Dakin's moist 2x2 gauze. Cover with Optifoam drsg TID and prn. Quartet Air fluidized mattress. Reposition L side to back at least every 2hours or as tolerated. /- Patient has been improving with repeat blood cultures were without growth thus far. Spoke with patient's daughter yesterday explained that we will proceed with debridement which she and the family is consented to. Patient still unable to consent given his current medical condition and mental status. Patient was made comfortable at the bedside with the assistance of the wound care team and nursing staff we began evaluating and improving patient's wounds. The left elbow was evaluated and identified to have a 1-2 cm full-thickness injury with palpable bone no erythema or cellulitis not requiring any debridement at this time. Wound care and dressings have been going well for this wound. We will continue with wound care and dressings as above. The sacral wound was evaluated and identified to have a open portion stage IV as well as a necrotic eschar needed excision. Using a #10 scalpel and forceps the necrotic eschar was excised so that the entirety of the wound could be evaluated and cared for. There was significant soft slough noted in the wound bed and minor debridement was done but given the fact the patient is on Eliquis vision was made to forego complete debridement until safe time where patient can be off anticoagulation. The right issue wound was evaluated and noted to be fairly malodorous with soft tissue necrosis. There is near purulent drainage coming from this wound and some tracking was identified in the inferior aspect of the wound. Wound was completely evaluated and tracking noted. Wound was irrigated and cleansed until clean. Minor debridement of the necrotic wound edges was performed to allow for better evaluation of the underlying tissues. Following this Dakin's packing and dressing as noted above was continued. The right trochanter wound was identified and very clean with good granulation tissue identified not requiring further debridement at this time. Above wound care orders were continued as they have been slowly improving. There is significant amount of slough left and some debris that requires excision but needs to be done when patient is off Eliquis which at this time is not recommended. Goyo Osuna Aug 24, 2018 13:45
--- NOTE | 2018-08-24 14:11 | Infectious Diseases Prog Note ---
Assessment/Plan Assessment/Plan Assessment: Sepsis-2ry to bacteremia (likley from GI translocation ) -CT abd/p" Colonic mural thickening consistent with some form of colitis. No pneumatosis or extraluminal air. C Diff -Cdif toxin a/b + -Bcx 08/21 GNR, 08/21 ESBL Proteus mirabilis (S Ertapenem, Zosyn), 08/21 Group C strep ; 08/15 Bcx 07/24 Prevotella L . (R Clinda, Unasyn; S flagyl) ;08/17 Bcx 07/24 EUBACTERIUM LENTUM 08/21 Bcx NTD -u/a no pyuria -CXR: Suspect a small left pleural effusion. Mild basal atelectasis -influenza sc neg Fever, SP Leukocytosis , SP Hx of lung cavitary lesion/ PNA- suspect likely to aspiration; lower suspicion for TB and/or fungal etiologies -06/08 CT chest: * Interval resolution of the cavitary component associated with the previously described anterior right upper lobe opacity. It is slightly decreased in size and more nodular in appearance on today's exam. Additional patchy opacities in the posterior right upper lobe are also slightly decreased in size and appear more nodular (previously were groundglass). Findings likely related to evolving infectious or inflammatory lesions however continued follow-up is recommended to assure resolution/exclude the possibility of neoplastic etiologies. -CT c/a/p: 10 mm opacity in the peripheral anterolateral right upper lobe with small central cavitation. Patchy groundglass opacity in the posterior right upper lobe. Suspect that these represent inflammatory/infectious lesions, but neoplastic etiology of either is certainly possible. Large left and moderate right pleural effusions. Resultant compressive atelectasis of portions of the lower lobes. 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 Hypertension. Multiple decubiti ulcers (elbow, sacral) -not infected Bipolar disorder. Coronary artery disease. VRE and MRSA colonized Plan: -Continue Meropenem #8 (abx d #05/03) given ESBL bacteremia -Continue PO Vancomycin #04/02 for Cdiff and add Flagyl #2 -Cont INH for latent TB -08/17 SP Zosyn #3, Daptomycin #3 -08/15 SP Tamiflu #2, Ceftriaxone #2 -08/14 SP Cefepime and LEvaquin x1 - f/u Repeat 2 sets of Bcx -Monitor CBC/CMP, temperatures -wound care -aspiration precautions -Sx f/u Subjective Allergies: Coded Allergies: MILK (Verified Allergy, Unknown, 02/02/18) Subjective afebrile repeat bcx NTD leukocytosis resolved Objective Vital Signs Last 24 Hour Vital Signs Date Time Temp Pulse Resp B/P (MAP) Pulse Ox O2 Delivery O2 Flow Rate FiO2 08/24/18 12:00 97.9 99 16 125/60 (81) 99 08/24/18 09:00 Nasal Cannula 2.0 08/24/18 08:42 99 140/75 08/24/18 08:42 99 08/24/18 08:00 97.9 99 20 140/75 (96) 99 08/24/18 07:52 Nasal Cannula 2.0 28 08/24/18 07:52 98 Nasal Cannula 2.0 28 08/24/18 04:00 78 08/24/18 04:00 99.0 78 20 135/65 (88) 99 08/24/18 00:00 99.9 80 20 138/60 (86) 100 08/24/18 00:00 80 08/23/18 21:00 61 100/62 08/23/18 21:00 Nasal Cannula 2.0 08/23/18 20:37 96 Nasal Cannula 2.0 28 08/23/18 20:37 Nasal Cannula 2.0 28 08/23/18 20:00 99.5 66 18 104/62 (76) 96 08/23/18 15:35 85 08/23/18 15:30 98.0 101 19 131/78 (95) 96 Height (Feet): 6 Height (Inches): 0.40 Weight (Pounds): 155 Objective General appearance: alert, cooperative, no distress, appears stated age Head: Normocephalic, without obvious abnormality, atraumatic Eyes: conjunctivae/corneas clear. PERRL, EOM's intact. Fundi benign Throat: Lips, mucosa, and tongue normal. Teeth and gums normal Neck: supple, symmetrical, trachea midline, no adenopathy, thyroid: not enlarged, symmetric, no tenderness/mass/nodules, no carotid bruit and no JVD Lungs: clear to auscultation bilaterally Heart: regular rate and rhythm, S1, S2 normal, no murmur, click, rub or gallop Abdomen: soft, non-tender. Bowel sounds normal. No masses, no organomegaly Extremities: extremities normal, atraumatic, no cyanosis or edema/ s/p bilateral aka Pulses: 2+ and symmetric Skin: Skin color, texture, turgor normal. No rashes or lesions. multiple large decubitus ulcers. Neurologic: Grossly normal Microbiology Date/Time Source Procedure Growth Status 08/21/18 16:00 Blood Blood Culture - Preliminary NO GROWTH AFTER 48 HOURS Resulted 08/21/18 16:00 Blood Blood Culture - Preliminary NO GROWTH AFTER 48 HOURS Resulted Laboratory Tests Test 08/23/18 14:45 08/24/18 05:00 Arterial Blood pH 7.447 (7.350-7.450) Arterial Blood Partial Pressure CO2 36.7 mmHg (35.0-45.0) Arterial Blood Partial Pressure O2 58.0 mmHg (75.0-100.0) L Arterial Blood HCO3 24.8 mmol/L (22.0-26.0) Arterial Blood Oxygen Saturation 90.8 % (95-100) L Arterial Blood Base Excess 0.8 (-2-2) Trell Test Positive White Blood Count 9.5 K/UL (4.8-10.8) Red Blood Count 2.37 M/UL (4.70-6.10) L Hemoglobin 7.3 G/DL (14.2-18.0) L Hematocrit 23.2 % (42.0-52.0) L Mean Corpuscular Volume 98 FL (80-99) Mean Corpuscular Hemoglobin 31.0 PG (27.0-31.0) Mean Corpuscular Hemoglobin Concent 31.6 G/DL (32.0-36.0) L Red Cell Distribution Width 16.4 % (11.6-14.8) H Platelet Count 150 K/UL (150-450) Mean Platelet Volume 5.9 FL (6.5-10.1) L Neutrophils (%) (Auto) % (45.0-75.0) Lymphocytes (%) (Auto) % (20.0-45.0) Monocytes (%) (Auto) % (1.0-10.0) Eosinophils (%) (Auto) % (0.0-3.0) Basophils (%) (Auto) % (0.0-2.0) Differential Total Cells Counted 100 Neutrophils % (Manual) 71 % (45-75) Lymphocytes % (Manual) 20 % (20-45) Monocytes % (Manual) 9 % (1-10) Eosinophils % (Manual) 0 % (0-3) Basophils % (Manual) 0 % (0-2) Band Neutrophils 0 % (0-8) Platelet Estimate Adequate Platelet Morphology Normal Hypochromasia 2+ Anisocytosis 2+ Sodium Level 145 MMOL/L (136-145) Potassium Level 2.6 MMOL/L (3.5-5.1) *L Chloride Level 112 MMOL/L (98-107) H Carbon Dioxide Level 27 MMOL/L (21-32) Anion Gap 6 mmol/L (5-15) Blood Urea Nitrogen 14 mg/dL (7-18) Creatinine 0.5 MG/DL (0.55-1.30) L Estimat Glomerular Filtration Rate > 60 mL/min (>60) Glucose Level 96 MG/DL (74-106) Calcium Level 7.3 MG/DL (8.5-10.1) L Total Bilirubin 0.3 MG/DL (0.2-1.0) Aspartate Amino Transf (AST/SGOT) 25 U/L (15-37) Alanine Aminotransferase (ALT/SGPT) 9 U/L (12-78) L Alkaline Phosphatase 176 U/L (46-116) H Pro-B-Type Natriuretic Peptide 1685 pg/mL (0-125) H Total Protein 4.9 G/DL (6.4-8.2) L Albumin 0.9 G/DL (3.4-5.0) L Globulin 4.0 g/dL Albumin/Globulin Ratio 0.2 (1.0-2.7) L Current Medications Medications (Trade) Dose Ordered Sig/Erlin Route PRN Reason Start Time Stop Time Status Last Admin Dose Admin Acetaminophen (Tylenol) 650 mg Q4H PRN NG Mild Pain (Pain Scale 1-3) 08/17/18 11:00 09/13/18 06:44 Acetaminophen (Tylenol) 650 mg Q6H PRN NG Temp > 100.5 08/17/18 11:00 09/13/18 08:59 08/19/18 00:49 Acetaminophen/ Hydrocodone Bitart ([place] 5/325) 1 tab Q4H PRN NG For Pain 08/20/18 20:00 08/24/18 19:59 Amiodarone HCl (Cordarone) 200 mg DAILY NG 08/21/18 09:00 09/19/18 08:59 08/24/18 08:42 Apixaban (Eliquis) 2.5 mg Q12HR NG 08/17/18 21:00 09/13/18 08:59 08/24/18 08:43 Aripiprazole (Abilify) 5 mg BID ORAL 08/14/18 09:00 09/13/18 08:59 08/24/18 08:42 Chlorhexidine Gluconate (Yari-Hex 2%) 1 applic DAILY@2000 TOPIC 08/22/18 20:00 09/21/18 19:59 08/23/18 22:11 Clonidine HCl (Catapres tab) 0.2 mg Q4H PRN ORAL For High Blood Pressure 08/22/18 01:45 09/21/18 01:44 Dextrose/ Electrolytes 1,000 ml @ 75 mls/hr [id number] IV 08/17/18 11:30 09/16/18 11:29 08/24/18 06:00 Digoxin (Lanoxin) 0.125 mg DAILY NG 08/21/18 09:00 09/19/18 08:59 08/24/18 08:42 Gabapentin (Neurontin) 100 mg THREE TIMES A DAY NG 08/17/18 13:00 09/13/18 12:59 08/24/18 12:28 Isoniazid (Inh) 300 mg DAILY NG 08/18/18 09:00 09/13/18 08:59 08/24/18 08:42 Lactobacillus Acidophilus (Culturelle) 1 tab THREE TIMES A DAY NG 08/20/18 13:00 09/18/18 08:59 08/24/18 12:29 Magnesium Hydroxide (Mom) 30 ml BEDTIME NG 08/17/18 21:00 09/13/18 20:59 08/23/18 22:10 Meropenem 1 gm/ Sodium Chloride 55 ml @ 110 mls/hr Q8H IVPB 08/17/18 21:00 08/29/18 23:59 08/24/18 12:29 Metoprolol Tartrate (Lopressor) 50 mg Q12HR NG 08/23/18 21:00 09/22/18 20:59 08/24/18 08:42 Metronidazole (Flagyl) 500 mg Q8HR ORAL 08/23/18 14:00 08/30/18 13:59 08/24/18 06:04 Midodrine (Pro-Amatine) 5 mg THREE TIMES A DAY NG 08/17/18 13:00 09/13/18 08:59 08/23/18 17:11 Potassium Chloride 100 ml @ 100 mls/hr Q1H IVPB 08/24/18 13:30 08/24/18 17:29 Potassium Chloride (K-Dur) 40 meq Q4H NG 08/24/18 13:30 08/24/18 17:31 Pyridoxine HCl (Vitamin B6) 50 mg DAILY NG 08/18/18 09:00 09/13/18 08:59 08/24/18 08:42 Sodium Hypochlorite (Dakin's Quarter Strength) 1 applic DAILY TOPIC 08/14/18 16:00 09/13/18 15:59 08/24/18 08:41 Vancomycin HCl (Firvanq) 250 mg FOUR TIMES A DAY NG 08/17/18 13:00 08/29/18 23:59 08/24/18 12:29 Vitamin B Complex/ Vit C/Folic Acid (Nephrovite) 1 tab DAILY NG 08/18/18 09:00 09/13/18 08:59 08/24/18 08:42 Zinc Sulfate (Zinc Sulfate) 220 mg DAILY NG 08/18/18 09:00 09/13/18 08:59 08/24/18 08:43 Alma Elkins M.D. Aug 24, 2018 14:11
[2018-08-24 16:00] VITALS: BP 137/82
--- NOTE | 2018-08-24 16:30 | Cardiac Electrophysiology PN ---
Assessment/Plan Assessment/Plan 1. Atrial fibrillation with rapid ventricular response. In SR Continue Eliquis 2.5 mg bid, metoprolol 50 mg bid, digoxin 0.125 and amiodarone 200 2. Fever and sepsis. Positive blood culture. IV antibiotics per Dr. Parker. 3. Dementia and psychosis. 4. 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 5. Sacral decubitus.S/P debridement 6. C. Diff colitis.On Flagyl 7. Hypotension on Midodrine 8. Hypokalemia, Being replaced DW RN Subjective Subjective In isolation in NAD. In SR. Had wound debridement yesterday. K was low and being replaced Objective Last 24 Hour Vital Signs Date Time Temp Pulse Resp B/P (MAP) Pulse Ox O2 Delivery O2 Flow Rate FiO2 08/24/18 12:00 97.9 99 16 125/60 (81) 99 08/24/18 09:00 Nasal Cannula 2.0 08/24/18 08:42 99 140/75 08/24/18 08:42 99 08/24/18 08:00 97.9 99 20 140/75 (96) 99 08/24/18 07:52 Nasal Cannula 2.0 28 08/24/18 07:52 98 Nasal Cannula 2.0 28 08/24/18 04:00 78 08/24/18 04:00 99.0 78 20 135/65 (88) 99 08/24/18 00:00 99.9 80 20 138/60 (86) 100 08/24/18 00:00 80 08/23/18 21:00 61 100/62 08/23/18 21:00 Nasal Cannula 2.0 08/23/18 20:37 96 Nasal Cannula 2.0 28 08/23/18 20:37 Nasal Cannula 2.0 28 08/23/18 20:00 99.5 66 18 104/62 (76) 96 Intake and Output 08/23/18 08/24/18 19:00 07:00 Intake Total 1230 ml 600 ml Output Total 200 ml Balance 1030 ml 600 ml Free Water 100 ml IV Total 650 ml Tube Feeding 480 ml 600 ml Output Urine Total 200 ml Laboratory Tests Test 08/24/18 05:00 White Blood Count 9.5 K/UL (4.8-10.8) Red Blood Count 2.37 M/UL (4.70-6.10) L Hemoglobin 7.3 G/DL (14.2-18.0) L Hematocrit 23.2 % (42.0-52.0) L Mean Corpuscular Volume 98 FL (80-99) Mean Corpuscular Hemoglobin 31.0 PG (27.0-31.0) Mean Corpuscular Hemoglobin Concent 31.6 G/DL (32.0-36.0) L Red Cell Distribution Width 16.4 % (11.6-14.8) H Platelet Count 150 K/UL (150-450) Mean Platelet Volume 5.9 FL (6.5-10.1) L Neutrophils (%) (Auto) % (45.0-75.0) Lymphocytes (%) (Auto) % (20.0-45.0) Monocytes (%) (Auto) % (1.0-10.0) Eosinophils (%) (Auto) % (0.0-3.0) Basophils (%) (Auto) % (0.0-2.0) Differential Total Cells Counted 100 Neutrophils % (Manual) 71 % (45-75) Lymphocytes % (Manual) 20 % (20-45) Monocytes % (Manual) 9 % (1-10) Eosinophils % (Manual) 0 % (0-3) Basophils % (Manual) 0 % (0-2) Band Neutrophils 0 % (0-8) Platelet Estimate Adequate Platelet Morphology Normal Hypochromasia 2+ Anisocytosis 2+ Sodium Level 145 MMOL/L (136-145) Potassium Level 2.6 MMOL/L (3.5-5.1) *L Chloride Level 112 MMOL/L (98-107) H Carbon Dioxide Level 27 MMOL/L (21-32) Anion Gap 6 mmol/L (5-15) Blood Urea Nitrogen 14 mg/dL (7-18) Creatinine 0.5 MG/DL (0.55-1.30) L Estimat Glomerular Filtration Rate > 60 mL/min (>60) Glucose Level 96 MG/DL (74-106) Calcium Level 7.3 MG/DL (8.5-10.1) L Total Bilirubin 0.3 MG/DL (0.2-1.0) Aspartate Amino Transf (AST/SGOT) 25 U/L (15-37) Alanine Aminotransferase (ALT/SGPT) 9 U/L (12-78) L Alkaline Phosphatase 176 U/L (46-116) H Pro-B-Type Natriuretic Peptide 1685 pg/mL (0-125) H Total Protein 4.9 G/DL (6.4-8.2) L Albumin 0.9 G/DL (3.4-5.0) L Globulin 4.0 g/dL Albumin/Globulin Ratio 0.2 (1.0-2.7) L Objective HEAD AND NECK: no JVD. NG tube. LUNGS: Have coarse rhonchi. CARDIOVASCULAR: Irregular S1 and S2 with no gallop or murmur. ABDOMEN: Soft. EXTREMITIES: Bilateral above-knee amputation. Amandeep Arora MD Aug 24, 2018 16:30
[2018-08-24 17:58] LABS: ANION GAP 6 mmol/L (5-15); BLOOD UREA NITROGEN 14 mg/dL (7-18); CALCIUM 7.2 MG/DL (8.5-10.1); CARBON DIOXIDE 26 MMOL/L (21-32); CHLORIDE 110 MMOL/L (98-107); CREATININE 0.4 MG/DL (0.55-1.30); POTASSIUM 3.3 MMOL/L (3.5-5.1); SODIUM 142 MMOL/L (136-145)
--- NOTE | 2018-08-24 18:05 | Internal Med Progress Note ---
Subjective Date of Service: Aug 24, 2018 Physician Name Daniel Jackson Attending Physician Pedro Caban MD Current Medications Medications (Trade) Dose Ordered Sig/Erlin Route PRN Reason Start Time Stop Time Status Last Admin Dose Admin Acetaminophen (Tylenol) 650 mg Q4H PRN NG Mild Pain (Pain Scale 1-3) 08/17/18 11:00 09/13/18 06:44 Acetaminophen (Tylenol) 650 mg Q6H PRN NG Temp > 100.5 08/17/18 11:00 09/13/18 08:59 08/19/18 00:49 Acetaminophen/ Hydrocodone Bitart ([place] 5/325) 1 tab Q4H PRN NG For Pain 08/20/18 20:00 08/24/18 19:59 Amiodarone HCl (Cordarone) 200 mg DAILY NG 08/21/18 09:00 09/19/18 08:59 08/24/18 08:42 Apixaban (Eliquis) 2.5 mg Q12HR NG 08/17/18 21:00 09/13/18 08:59 08/24/18 08:43 Aripiprazole (Abilify) 5 mg BID ORAL 08/14/18 09:00 09/13/18 08:59 08/24/18 17:26 Chlorhexidine Gluconate (Yari-Hex 2%) 1 applic DAILY@2000 TOPIC 08/22/18 20:00 09/21/18 19:59 08/23/18 22:11 Clonidine HCl (Catapres tab) 0.2 mg Q4H PRN ORAL For High Blood Pressure 08/22/18 01:45 09/21/18 01:44 Dextrose/ Electrolytes 1,000 ml @ 75 mls/hr [id number] IV 08/17/18 11:30 09/16/18 11:29 08/24/18 15:40 Digoxin (Lanoxin) 0.125 mg DAILY NG 08/21/18 09:00 09/19/18 08:59 08/24/18 08:42 Gabapentin (Neurontin) 100 mg THREE TIMES A DAY NG 08/17/18 13:00 09/13/18 12:59 08/24/18 17:26 Isoniazid (Inh) 300 mg DAILY NG 08/18/18 09:00 09/13/18 08:59 08/24/18 08:42 Lactobacillus Acidophilus (Culturelle) 1 tab THREE TIMES A DAY NG 08/20/18 13:00 09/18/18 08:59 08/24/18 17:25 Magnesium Hydroxide (Mom) 30 ml BEDTIME NG 08/17/18 21:00 09/13/18 20:59 08/23/18 22:10 Meropenem 1 gm/ Sodium Chloride 55 ml @ 110 mls/hr Q8H IVPB 08/17/18 21:00 08/29/18 23:59 08/24/18 12:29 Metoprolol Tartrate (Lopressor) 50 mg Q12HR NG 08/23/18 21:00 09/22/18 20:59 08/24/18 08:42 Metronidazole (Flagyl) 500 mg Q8HR ORAL 08/23/18 14:00 08/30/18 13:59 08/24/18 14:15 Midodrine (Pro-Amatine) 5 mg THREE TIMES A DAY NG 08/17/18 13:00 09/13/18 08:59 08/23/18 17:11 Pyridoxine HCl (Vitamin B6) 50 mg DAILY NG 08/18/18 09:00 09/13/18 08:59 08/24/18 08:42 Sodium Hypochlorite (Dakin's Quarter Strength) 1 applic DAILY TOPIC 08/14/18 16:00 09/13/18 15:59 08/24/18 08:41 Vancomycin HCl (Firvanq) 250 mg FOUR TIMES A DAY NG 08/17/18 13:00 08/29/18 23:59 08/24/18 12:29 Vitamin B Complex/ Vit C/Folic Acid (Nephrovite) 1 tab DAILY NG 08/18/18 09:00 09/13/18 08:59 08/24/18 08:42 Zinc Sulfate (Zinc Sulfate) 220 mg DAILY NG 08/18/18 09:00 09/13/18 08:59 08/24/18 08:43 Allergies: Coded Allergies: MILK (Verified Allergy, Unknown, 02/02/18) ROS Limited/Unobtainable: Yes Subjective 68 YO M admitted with fever and leukocytosis. Now Sepsis and C. Difficile colitis/diarrhea. Cover for Int Med-Dr Caban. Objective Last Vital Signs Date Time Temp Pulse Resp B/P (MAP) Pulse Ox O2 Delivery O2 Flow Rate FiO2 08/24/18 16:00 98.2 89 20 137/82 (100) 98 08/24/18 09:00 Nasal Cannula 2.0 08/24/18 07:52 28 Laboratory Tests Test 08/24/18 05:00 08/24/18 17:10 White Blood Count 9.5 K/UL (4.8-10.8) Red Blood Count 2.37 M/UL (4.70-6.10) L Hemoglobin 7.3 G/DL (14.2-18.0) L Hematocrit 23.2 % (42.0-52.0) L Mean Corpuscular Volume 98 FL (80-99) Mean Corpuscular Hemoglobin 31.0 PG (27.0-31.0) Mean Corpuscular Hemoglobin Concent 31.6 G/DL (32.0-36.0) L Red Cell Distribution Width 16.4 % (11.6-14.8) H Platelet Count 150 K/UL (150-450) Mean Platelet Volume 5.9 FL (6.5-10.1) L Neutrophils (%) (Auto) % (45.0-75.0) Lymphocytes (%) (Auto) % (20.0-45.0) Monocytes (%) (Auto) % (1.0-10.0) Eosinophils (%) (Auto) % (0.0-3.0) Basophils (%) (Auto) % (0.0-2.0) Differential Total Cells Counted 100 Neutrophils % (Manual) 71 % (45-75) Lymphocytes % (Manual) 20 % (20-45) Monocytes % (Manual) 9 % (1-10) Eosinophils % (Manual) 0 % (0-3) Basophils % (Manual) 0 % (0-2) Band Neutrophils 0 % (0-8) Platelet Estimate Adequate Platelet Morphology Normal Hypochromasia 2+ Anisocytosis 2+ Sodium Level 145 MMOL/L (136-145) 142 MMOL/L (136-145) Potassium Level 2.6 MMOL/L (3.5-5.1) *L 3.3 MMOL/L (3.5-5.1) L Chloride Level 112 MMOL/L (98-107) H 110 MMOL/L (98-107) H Carbon Dioxide Level 27 MMOL/L (21-32) 26 MMOL/L (21-32) Anion Gap 6 mmol/L (5-15) 6 mmol/L (5-15) Blood Urea Nitrogen 14 mg/dL (7-18) 14 mg/dL (7-18) Creatinine 0.5 MG/DL (0.55-1.30) L 0.4 MG/DL (0.55-1.30) L Estimat Glomerular Filtration Rate > 60 mL/min (>60) > 60 mL/min (>60) Glucose Level 96 MG/DL (74-106) 119 MG/DL (74-106) H Calcium Level 7.3 MG/DL (8.5-10.1) L 7.2 MG/DL (8.5-10.1) L Total Bilirubin 0.3 MG/DL (0.2-1.0) Aspartate Amino Transf (AST/SGOT) 25 U/L (15-37) Alanine Aminotransferase (ALT/SGPT) 9 U/L (12-78) L Alkaline Phosphatase 176 U/L (46-116) H Pro-B-Type Natriuretic Peptide 1685 pg/mL (0-125) H Total Protein 4.9 G/DL (6.4-8.2) L Albumin 0.9 G/DL (3.4-5.0) L Globulin 4.0 g/dL Albumin/Globulin Ratio 0.2 (1.0-2.7) L Intake and Output 08/23/18 08/24/18 19:00 07:00 Intake Total 1230 ml 600 ml Output Total 200 ml Balance 1030 ml 600 ml Free Water 100 ml IV Total 650 ml Tube Feeding 480 ml 600 ml Output Urine Total 200 ml Objective General Appearance: WD/WN, no apparent distress, lethargic EENT: PERRL/EOMI, normal ENT inspection Neck: non-tender, normal alignment, supple, normal inspection Cardiovascular: normal peripheral pulses, normal rate, regular rhythm, no gallop/murmur, no JVD Respiratory/Chest: chest wall non-tender, lungs clear, normal breath sounds, no respiratory distress, no accessory muscle use Abdomen: normal bowel sounds, non tender, soft, no organomegaly, no mass Extremities: normal range of motion, non-tender Neurologic: back closer II-XII grossly normal Skin: normal pigmentation, warm/dry Assessment/Plan Problem List: (1) Sepsis Assessment & Plan: ESBL Proteus Mirablilis. Continue zosyn and meropenem per ID. 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 (5) Renal failure (ARF), acute on chronic (6) Decubitus ulcer Assessment & Plan: Await debridement per surgery-see note (7) Bipolar II disorder (8) Leukocytosis (9) Clostridium difficile colitis Assessment & Plan: Continue oral vanco per ID (10) CVA (cerebral vascular accident) (11) Acute metabolic encephalopathy (12) HTN (hypertension) (13) CAD (coronary artery disease) (14) Atrial fibrillation Assessment & Plan: Continue eliquis (15) Pneumonia Assessment & Plan: Continue INH per ID-see note (16) Hypernatremia Assessment & Plan: continue D5NS + KCL (17) Hypokalemia Assessment & Plan: Cont D5NS +Kcl Daniel Jackson MD Aug 24, 2018 18:05
--- NOTE | 2018-08-24 19:48 | General Progress Note ---
Assessment/Plan Assessment/Plan Assessment - C Difficile colitis - failed swallow eval - Malnutrition , NGT - s/p b/l AKA - anemia - bacteremia, leukocytosis - improving Recommendations - continue Vanco PO - taper down broad spect abx when feasible - probiotics - elevate HOB - replace K - TF --> will d/w family re ?PEG - Poor Px Subjective Allergies: Coded Allergies: MILK (Verified Allergy, Unknown, 02/02/18) Subjective above noted NGT feeds tolerated non interactive d/w surgery re PEG - will d/w family Objective Last 24 Hour Vital Signs Date Time Temp Pulse Resp B/P (MAP) Pulse Ox O2 Delivery O2 Flow Rate FiO2 08/24/18 16:00 87 08/24/18 16:00 98.2 89 20 137/82 (100) 98 08/24/18 12:00 97.9 99 16 125/60 (81) 99 08/24/18 09:00 Nasal Cannula 2.0 08/24/18 08:42 99 140/75 08/24/18 08:42 99 08/24/18 08:00 97.9 99 20 140/75 (96) 99 08/24/18 07:52 Nasal Cannula 2.0 28 08/24/18 07:52 98 Nasal Cannula 2.0 28 08/24/18 04:00 78 08/24/18 04:00 99.0 78 20 135/65 (88) 99 08/24/18 00:00 99.9 80 20 138/60 (86) 100 08/24/18 00:00 80 08/23/18 21:00 61 100/62 08/23/18 21:00 Nasal Cannula 2.0 08/23/18 20:37 96 Nasal Cannula 2.0 28 08/23/18 20:37 Nasal Cannula 2.0 28 08/23/18 20:00 99.5 66 18 104/62 (76) 96 Intake and Output 08/23/18 08/24/18 19:00 07:00 Intake Total 1230 ml 600 ml Output Total 200 ml Balance 1030 ml 600 ml Free Water 100 ml IV Total 650 ml Tube Feeding 480 ml 600 ml Output Urine Total 200 ml Laboratory Tests 08/24/18 05:00: White Blood Count 9.5, Red Blood Count 2.37L, Hemoglobin 7.3L, Hematocrit 23.2L , Mean Corpuscular Volume 98, Mean Corpuscular Hemoglobin 31.0, Mean Corpuscular Hemoglobin Concent 31.6L, Red Cell Distribution Width 16.4H, Platelet Count 150, Mean Platelet Volume 5.9L, Neutrophils (%) (Auto) , Lymphocytes (%) (Auto) , Monocytes (%) (Auto) , Eosinophils (%) (Auto) , Basophils (%) (Auto) , Differential Total Cells Counted 100, Neutrophils % ( Manual) 71, Lymphocytes % (Manual) 20, Monocytes % (Manual) 9, Eosinophils % ( Manual) 0, Basophils % (Manual) 0, Band Neutrophils 0, Platelet Estimate Adequate, Platelet Morphology Normal, Hypochromasia 2+, Anisocytosis 2+, Sodium Level 145, Potassium Level 2.6*L, Chloride Level 112H, Carbon Dioxide Level 27, Anion Gap 6, Blood Urea Nitrogen 14, Creatinine 0.5L, Estimat Glomerular Filtration Rate > 60, Glucose Level 96, Calcium Level 7.3L, Total Bilirubin 0.3 , Aspartate Amino Transf (AST/SGOT) 25, Alanine Aminotransferase (ALT/SGPT) 9L, Alkaline Phosphatase 176H, Pro-B-Type Natriuretic Peptide 1685H, Total Protein 4.9L, Albumin 0.9L, Globulin 4.0, Albumin/Globulin Ratio 0.2L 08/24/18 17:10: Sodium Level 142, Potassium Level 3.3L, Chloride Level 110H, Carbon Dioxide Level 26, Anion Gap 6, Blood Urea Nitrogen 14, Creatinine 0.4L, Estimat Glomerular Filtration Rate > 60, Glucose Level 119H, Calcium Level 7.2L Height (Feet): 6 Height (Inches): 0.40 Weight (Pounds): 155 Objective Elderly AA man NCAT supple CTA RRR Abd soft distended, minimally TTP (+) Gina Graham MD Aug 24, 2018 19:48
[2018-08-24 20:05] VITALS: BP 129/65
[2018-08-24] MEDS: Dyna-Hex 2% Top Sol 2oz TOPIC SCH (20:49)
[2018-08-24] MEDS: Milk of Magnesia 30ml Ud NG SCH (20:50)
[2018-08-25 00:20] VITALS: BP 133/70
[2018-08-25 04:00] VITALS: BP 129/68
[2018-08-25] MEDS: Meropenem 1 GM in NS 55 ML IVPB SCH ×3 (05:54→21:05)
[2018-08-25] MEDS: metroNIDAZOLE 500mg tab ORAL SCH ×3 (05:55→22:14)
[2018-08-25] MEDS: D5W w/KCl 20mEq 1,000 ML IV SCH ×2 (05:55→22:16)
[2018-08-25 07:09] LABS: BASOPHILS % (AUTO) 0.8 % (0.0-2.0); EOSINOPHILS % (AUTO) 0.9 % (0.0-3.0); HEMATOCRIT 24.8 % (42.0-52.0); HEMOGLOBIN 8.2 G/DL (14.2-18.0); LYMPHOCYTES % (AUTO) 19.8 % (20.0-45.0); MEAN CORPUSCULAR VOLUME 96 FL (80-99); MONOCYTES % (AUTO) 8.6 % (1.0-10.0); NEUTROPHILS % (AUTO) 69.9 % (45.0-75.0); PLATELET COUNT 170 K/UL (150-450); RED BLOOD COUNT 2.58 M/UL (4.70-6.10); RED CELL DISTRIBUTION WIDTH 16.3 % (11.6-14.8); WHITE BLOOD COUNT 10.7 K/UL (4.8-10.8)
[2018-08-25 07:30] LABS: ANION GAP 4 mmol/L (5-15); BLOOD UREA NITROGEN 13 mg/dL (7-18); CALCIUM 7.4 MG/DL (8.5-10.1); CARBON DIOXIDE 26 MMOL/L (21-32); CHLORIDE 111 MMOL/L (98-107); CREATININE 0.4 MG/DL (0.55-1.30); POTASSIUM 3.4 MMOL/L (3.5-5.1); SODIUM 141 MMOL/L (136-145)
[2018-08-25 08:00] VITALS: BP 130/76
[2018-08-25] MEDS: Metoprolol Tartrate 50mg tab NG SCH ×2 (09:00→21:14)
[2018-08-25] MEDS: Nephrovite tab (Rena-Vite) NG SCH (09:03)
[2018-08-25] MEDS: Vancomycin oral 125mg/2.5ml NG SCH ×4 (09:03→21:06)
[2018-08-25] MEDS: Zinc Sulfate 220mg cap NG SCH (09:03)
[2018-08-25] MEDS: Lactobacillus-GG tablet NG SCH ×3 (09:03→18:17)
[2018-08-25] MEDS: Pyridoxine 50mg tab NG SCH (09:04)
[2018-08-25] MEDS: Eliquis 2.5mg tablet NG SCH ×2 (09:04→21:07)
[2018-08-25] MEDS: Isoniazid 300mg tab NG SCH (09:04)
[2018-08-25] MEDS: Digoxin 0.125mg tab NG SCH (09:05)
[2018-08-25] MEDS: Dakin's 0.125% Soln (Quarter Strength) 16oz TOPIC SCH (09:05)
[2018-08-25] MEDS: Amiodarone 200mg tab NG SCH (09:05)
--- NOTE | 2018-08-25 11:27 | Pulmonology Progress Note ---
Assessment/Plan Problems: (1) Clostridium difficile colitis (2) Acute metabolic encephalopathy (3) Sepsis (4) Decubitus skin ulcer (5) UTI (urinary tract infection) (6) Anemia (7) CVA (cerebral vascular accident) Assessment/Plan unchanged mental status, failed swallow study had debridement telemetry records reviewed, still tachy with PAC's and PVC's K and phos supplement again today iv abx iv fluids On vanco PO check electrolytes continue current meds. dvt prophylaxis. social service consult to get family's expectations and code status discussion. aggressive K supplement Subjective ROS Limited/Unobtainable: No Interval Events: still somnolent Constitutional: Reports: no symptoms HEENT: Repors: no symptoms Allergies: Coded Allergies: MILK (Verified Allergy, Unknown, 02/02/18) Objective Last 24 Hour Vital Signs Date Time Temp Pulse Resp B/P (MAP) Pulse Ox O2 Delivery O2 Flow Rate FiO2 08/25/18 09:05 66 08/25/18 09:00 Nasal Cannula 2.0 08/25/18 08:00 97.3 66 20 130/76 (94) 97 08/25/18 08:00 66 08/25/18 04:00 97.9 64 18 129/68 (88) 98 08/25/18 03:43 56 08/25/18 00:20 98.2 68 18 133/70 (91) 98 08/25/18 00:04 52 08/24/18 21:00 Nasal Cannula 2.0 08/24/18 20:50 72 129/65 08/24/18 20:27 Nasal Cannula 2.0 28 08/24/18 20:27 98 Nasal Cannula 2.0 28 08/24/18 20:05 97.6 79 18 129/65 (86) 98 08/24/18 19:33 79 08/24/18 16:00 87 08/24/18 16:00 98.2 89 20 137/82 (100) 98 08/24/18 12:00 97.9 99 16 125/60 (81) 99 Intake and Output 08/24/18 08/25/18 19:00 07:00 Intake Total 1575 ml Output Total 1200 ml 650 ml Balance -1200 ml 925 ml Free Water 100 ml IV Total 935 ml Tube Feeding 540 ml Output Urine Total 450 ml 250 ml Stool Total 750 ml 400 ml General Appearance: cachetic HEENT: normocephalic, atraumatic Respiratory/Chest: chest wall non-tender, lungs clear Cardiovascular: normal peripheral pulses, normal rate Abdomen: normal bowel sounds, soft, non tender, no scars Extremities: no cyanosis Skin: no ulcers Laboratory Tests 08/24/18 17:10: Sodium Level 142, Potassium Level 3.3L, Chloride Level 110H, Carbon Dioxide Level 26, Anion Gap 6, Blood Urea Nitrogen 14, Creatinine 0.4L, Estimat Glomerular Filtration Rate > 60, Glucose Level 119H, Calcium Level 7.2L 08/25/18 05:40: Sodium Level 141, Potassium Level 3.4L, Chloride Level 111H, Carbon Dioxide Level 26, Anion Gap 4L, Blood Urea Nitrogen 13, Creatinine 0.4L, Estimat Glomerular Filtration Rate > 60, Glucose Level 97, Calcium Level 7.4L, White Blood Count 10.7, Red Blood Count 2.58L, Hemoglobin 8.2L, Hematocrit 24.8L, Mean Corpuscular Volume 96, Mean Corpuscular Hemoglobin 31.6H, Mean Corpuscular Hemoglobin Concent 33.0, Red Cell Distribution Width 16.3H, Platelet Count 170, Mean Platelet Volume 6.3L, Neutrophils (%) (Auto) 69.9, Lymphocytes (%) (Auto) 19.8L, Monocytes (%) (Auto) 8.6, Eosinophils (%) (Auto) 0.9, Basophils (%) (Auto ) 0.8 Current Medications Medications (Trade) Dose Ordered Sig/Erlin Route PRN Reason Start Time Stop Time Status Last Admin Dose Admin Acetaminophen (Tylenol) 650 mg Q4H PRN NG Mild Pain (Pain Scale 1-3) 08/17/18 11:00 09/13/18 06:44 Acetaminophen (Tylenol) 650 mg Q6H PRN NG Temp > 100.5 08/17/18 11:00 09/13/18 08:59 08/19/18 00:49 Amiodarone HCl (Cordarone) 200 mg DAILY NG 08/21/18 09:00 09/19/18 08:59 08/25/18 09:05 Apixaban (Eliquis) 2.5 mg Q12HR NG 08/17/18 21:00 09/13/18 08:59 08/25/18 09:04 Aripiprazole (Abilify) 5 mg BID ORAL 08/14/18 09:00 09/13/18 08:59 08/25/18 09:04 Chlorhexidine Gluconate (Yari-Hex 2%) 1 applic DAILY@2000 TOPIC 08/22/18 20:00 09/21/18 19:59 08/24/18 20:49 Clonidine HCl (Catapres tab) 0.2 mg Q4H PRN ORAL For High Blood Pressure 08/22/18 01:45 09/21/18 01:44 Dextrose/ Electrolytes 1,000 ml @ 75 mls/hr [id number] IV 08/17/18 11:30 09/16/18 11:29 08/25/18 05:55 Digoxin (Lanoxin) 0.125 mg DAILY NG 08/21/18 09:00 09/19/18 08:59 08/25/18 09:05 Gabapentin (Neurontin) 100 mg THREE TIMES A DAY NG 08/17/18 13:00 09/13/18 12:59 08/25/18 09:03 Isoniazid (Inh) 300 mg DAILY NG 08/18/18 09:00 09/13/18 08:59 08/25/18 09:04 Lactobacillus Acidophilus (Culturelle) 1 tab THREE TIMES A DAY NG 08/20/18 13:00 09/18/18 08:59 08/25/18 09:03 Magnesium Hydroxide (Mom) 30 ml BEDTIME NG 08/17/18 21:00 09/13/18 20:59 08/24/18 20:50 Meropenem 1 gm/ Sodium Chloride 55 ml @ 110 mls/hr Q8H IVPB 08/17/18 21:00 08/29/18 23:59 08/25/18 05:54 Metoprolol Tartrate (Lopressor) 50 mg Q12HR NG 08/23/18 21:00 09/22/18 20:59 08/24/18 20:50 Metronidazole (Flagyl) 500 mg Q8HR ORAL 08/23/18 14:00 08/30/18 13:59 08/25/18 05:55 Midodrine (Pro-Amatine) 5 mg THREE TIMES A DAY NG 08/17/18 13:00 09/13/18 08:59 08/25/18 09:04 Pyridoxine HCl (Vitamin B6) 50 mg DAILY NG 08/18/18 09:00 09/13/18 08:59 08/25/18 09:04 Sodium Hypochlorite (Dakin's Quarter Strength) 1 applic DAILY TOPIC 08/14/18 16:00 09/13/18 15:59 08/25/18 09:05 Vancomycin HCl (Firvanq) 250 mg FOUR TIMES A DAY NG 08/17/18 13:00 08/29/18 23:59 08/25/18 09:03 Vitamin B Complex/ Vit C/Folic Acid (Nephrovite) 1 tab DAILY NG 08/18/18 09:00 09/13/18 08:59 08/25/18 09:03 Zinc Sulfate (Zinc Sulfate) 220 mg DAILY NG 08/18/18 09:00 09/13/18 08:59 08/25/18 09:03 Minerva Montesinos MD Aug 25, 2018 11:27
[2018-08-25 12:00] VITALS: BP 136/79
--- NOTE | 2018-08-25 13:05 | Surgery Progress Note ---
Surgery Progress Note Subjective Additional Comments spoke with daughter. needs PEG. once nutrition improved needs more debridement. Objective Last 24 Hour Vital Signs Date Time Temp Pulse Resp B/P (MAP) Pulse Ox O2 Delivery O2 Flow Rate FiO2 08/25/18 09:05 66 08/25/18 09:00 Nasal Cannula 2.0 08/25/18 08:00 97.3 66 20 130/76 (94) 97 08/25/18 08:00 66 08/25/18 04:00 97.9 64 18 129/68 (88) 98 08/25/18 03:43 56 08/25/18 00:20 98.2 68 18 133/70 (91) 98 08/25/18 00:04 52 08/24/18 21:00 Nasal Cannula 2.0 08/24/18 20:50 72 129/65 08/24/18 20:27 Nasal Cannula 2.0 28 08/24/18 20:27 98 Nasal Cannula 2.0 28 08/24/18 20:05 97.6 79 18 129/65 (86) 98 08/24/18 19:33 79 08/24/18 16:00 87 08/24/18 16:00 98.2 89 20 137/82 (100) 98 I&O Intake and Output 08/24/18 08/25/18 19:00 07:00 Intake Total 1575 ml Output Total 1200 ml 650 ml Balance -1200 ml 925 ml Free Water 100 ml IV Total 935 ml Tube Feeding 540 ml Output Urine Total 450 ml 250 ml Stool Total 750 ml 400 ml Dressing: saturated Wound: other Drains: other Cardiovascular: RSR Respiratory: clear Abdomen: soft, non-tender, present bowel sounds Extremities: other Laboratory Tests Test 08/24/18 17:10 08/25/18 05:40 Sodium Level 142 MMOL/L (136-145) 141 MMOL/L (136-145) Potassium Level 3.3 MMOL/L (3.5-5.1) L 3.4 MMOL/L (3.5-5.1) L Chloride Level 110 MMOL/L (98-107) H 111 MMOL/L (98-107) H Carbon Dioxide Level 26 MMOL/L (21-32) 26 MMOL/L (21-32) Anion Gap 6 mmol/L (5-15) 4 mmol/L (5-15) L Blood Urea Nitrogen 14 mg/dL (7-18) 13 mg/dL (7-18) Creatinine 0.4 MG/DL (0.55-1.30) L 0.4 MG/DL (0.55-1.30) L Estimat Glomerular Filtration Rate > 60 mL/min (>60) > 60 mL/min (>60) Glucose Level 119 MG/DL (74-106) H 97 MG/DL (74-106) Calcium Level 7.2 MG/DL (8.5-10.1) L 7.4 MG/DL (8.5-10.1) L White Blood Count 10.7 K/UL (4.8-10.8) Red Blood Count 2.58 M/UL (4.70-6.10) L Hemoglobin 8.2 G/DL (14.2-18.0) L Hematocrit 24.8 % (42.0-52.0) L Mean Corpuscular Volume 96 FL (80-99) Mean Corpuscular Hemoglobin 31.6 PG (27.0-31.0) H Mean Corpuscular Hemoglobin Concent 33.0 G/DL (32.0-36.0) Red Cell Distribution Width 16.3 % (11.6-14.8) H Platelet Count 170 K/UL (150-450) Mean Platelet Volume 6.3 FL (6.5-10.1) L Neutrophils (%) (Auto) 69.9 % (45.0-75.0) Lymphocytes (%) (Auto) 19.8 % (20.0-45.0) L Monocytes (%) (Auto) 8.6 % (1.0-10.0) Eosinophils (%) (Auto) 0.9 % (0.0-3.0) Basophils (%) (Auto) 0.8 % (0.0-2.0) Plan Problems: (1) Sepsis Assessment & Plan: IV abx trend labs will monitor wounds spoke with daughter. consent obtained. s/p wound cleaning/debridement recommend PEG (2) Decubitus skin ulcer Assessment & Plan: Pt presented on admission with multiple full thickness pressure injuries. Full thickness pressure injury to L elbow.Base of wound wound with 25% fibrinous slough,75% pink granulation noted.(+) maceration along borders. erythema without elevation in skin temp periwound(L)1.5cm x (W)1.8cm x(D)0.3cm. Full thickness pressure injury R trochanter .Base of wound with pink granulation.Edges adherent to base of wound .No odor or exudate noted.Darker skin tone without induration periwound. (L)4.5cm x (W)6.3cm x (D) 3cm.Undermining 12-3 by 3cm @12o'clock. Full thickness pressure injury to R ischium .Wound is malodorous.90% soft necrosis,10% pink noted at base of wound ,(+) epibole along edges .Periwound darker in skin tone and is indurated.(L)8.4cm x (W)4.3cm (D)2.5cm .Tunneling at 1o'clock by 3.6cm ,tunneling @5o'clock by 6.3cm. Full thickness sacral pressure injury with 80% soft necrosis ,20% pink granulation .Wound is malodorous with small amt brown exudate (L)8.5cm x (W)5cm x (D)2.5cm ,undermining 8-5 by 4.7cm @1o'clock. wounds with gross drainage poor nutritional status. prognosis concerning Tx.Plan: Cleanse R trochanter with Dakin's 0.125% candelaria. Loosely pack with Dakin's soaked kerlix .Cover with Optifoam drsg TID and prn. Cleanse R Ischial wound with Dakin's 0.125% candelaria.Loosely pack with Dakin's soaked kerlix. Cavilon Skin Barrier periwound. Cover with Optifoam drsg TID and prn. Cleanse Sacral wound with dakin's 0.125% candelaria.Loosely pack with Dakin's soaked kerlix.Cavilon Skin Barrier periwound.Cover with Optifoam drsg TID and prn. Cleanse L elbow with Dakin's 0.125% candelaria. Apply Dakin's moist 2x2 gauze. Cover with Optifoam drsg TID and prn. Quartet Air fluidized mattress. Reposition L side to back at least every 2hours or as tolerated. /- Patient has been improving with repeat blood cultures were without growth thus far. Spoke with patient's daughter yesterday explained that we will proceed with debridement which she and the family is consented to. Patient still unable to consent given his current medical condition and mental status. Patient was made comfortable at the bedside with the assistance of the wound care team and nursing staff we began evaluating and improving patient's wounds. The left elbow was evaluated and identified to have a 1-2 cm full-thickness injury with palpable bone no erythema or cellulitis not requiring any debridement at this time. Wound care and dressings have been going well for this wound. We will continue with wound care and dressings as above. The sacral wound was evaluated and identified to have a open portion stage IV as well as a necrotic eschar needed excision. Using a #10 scalpel and forceps the necrotic eschar was excised so that the entirety of the wound could be evaluated and cared for. There was significant soft slough noted in the wound bed and minor debridement was done but given the fact the patient is on Eliquis vision was made to forego complete debridement until safe time where patient can be off anticoagulation. The right issue wound was evaluated and noted to be fairly malodorous with soft tissue necrosis. There is near purulent drainage coming from this wound and some tracking was identified in the inferior aspect of the wound. Wound was completely evaluated and tracking noted. Wound was irrigated and cleansed until clean. Minor debridement of the necrotic wound edges was performed to allow for better evaluation of the underlying tissues. Following this Dakin's packing and dressing as noted above was continued. The right trochanter wound was identified and very clean with good granulation tissue identified not requiring further debridement at this time. Above wound care orders were continued as they have been slowly improving. There is significant amount of slough left and some debris that requires excision but needs to be done when patient is off Eliquis which at this time is not recommended. Goyo Osuna Aug 25, 2018 13:05
--- NOTE | 2018-08-25 14:04 | Infectious Diseases Prog Note ---
Assessment/Plan Assessment/Plan Assessment: Sepsis-2ry to bacteremia (likley from GI translocation ) -CT abd/p" Colonic mural thickening consistent with some form of colitis. No pneumatosis or extraluminal air. C Diff -Cdif toxin a/b + -Bcx 08/21 GNR, 08/21 ESBL Proteus mirabilis (S Ertapenem, Zosyn), 08/21 Group C strep ; 08/15 Bcx 07/24 Prevotella L . (R Clinda, Unasyn; S flagyl) ;08/17 Bcx 07/24 EUBACTERIUM LENTUM 08/21 Bcx NTD -u/a no pyuria -CXR: Suspect a small left pleural effusion. Mild basal atelectasis -influenza sc neg Fever, SP Leukocytosis , SP Hx of lung cavitary lesion/ PNA- suspect likely to aspiration; lower suspicion for TB and/or fungal etiologies -06/08 CT chest: * Interval resolution of the cavitary component associated with the previously described anterior right upper lobe opacity. It is slightly decreased in size and more nodular in appearance on today's exam. Additional patchy opacities in the posterior right upper lobe are also slightly decreased in size and appear more nodular (previously were groundglass). Findings likely related to evolving infectious or inflammatory lesions however continued follow-up is recommended to assure resolution/exclude the possibility of neoplastic etiologies. -CT c/a/p: 10 mm opacity in the peripheral anterolateral right upper lobe with small central cavitation. Patchy groundglass opacity in the posterior right upper lobe. Suspect that these represent inflammatory/infectious lesions, but neoplastic etiology of either is certainly possible. Large left and moderate right pleural effusions. Resultant compressive atelectasis of portions of the lower lobes. 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 Hypertension. Multiple decubiti ulcers (elbow, sacral) -not infected Bipolar disorder. Coronary artery disease. VRE and MRSA colonized Plan: -Continue Meropenem #9 (abx d #06/02) given ESBL bacteremia -Continue PO Vancomycin #05/03 for Cdiff and add Flagyl #3 -Cont INH for latent TB -08/17 SP Zosyn #3, Daptomycin #3 -08/15 SP Tamiflu #2, Ceftriaxone #2 -08/14 SP Cefepime and LEvaquin x1 - f/u Repeat 2 sets of Bcx -Monitor CBC/CMP, temperatures -wound care -aspiration precautions -Sx f/u Subjective Allergies: Coded Allergies: MILK (Verified Allergy, Unknown, 02/02/18) Subjective afebrile repeat bcx NTD no leukocytosis stool output improving Objective Vital Signs Last 24 Hour Vital Signs Date Time Temp Pulse Resp B/P (MAP) Pulse Ox O2 Delivery O2 Flow Rate FiO2 08/25/18 13:12 97.3 08/25/18 09:05 66 08/25/18 09:00 Nasal Cannula 2.0 08/25/18 08:00 97.3 66 20 130/76 (94) 97 08/25/18 08:00 66 08/25/18 04:00 97.9 64 18 129/68 (88) 98 08/25/18 03:43 56 08/25/18 00:20 98.2 68 18 133/70 (91) 98 08/25/18 00:04 52 08/24/18 21:00 Nasal Cannula 2.0 08/24/18 20:50 72 129/65 08/24/18 20:27 Nasal Cannula 2.0 28 08/24/18 20:27 98 Nasal Cannula 2.0 28 08/24/18 20:05 97.6 79 18 129/65 (86) 98 08/24/18 19:33 79 08/24/18 16:00 87 08/24/18 16:00 98.2 89 20 137/82 (100) 98 Height (Feet): 6 Height (Inches): 0.40 Weight (Pounds): 155 Objective General appearance: alert, cooperative, no distress, appears stated age Head: Normocephalic, without obvious abnormality, atraumatic Eyes: conjunctivae/corneas clear. PERRL, EOM's intact. Fundi benign Throat: Lips, mucosa, and tongue normal. Teeth and gums normal Neck: supple, symmetrical, trachea midline, no adenopathy, thyroid: not enlarged, symmetric, no tenderness/mass/nodules, no carotid bruit and no JVD Lungs: clear to auscultation bilaterally Heart: regular rate and rhythm, S1, S2 normal, no murmur, click, rub or gallop Abdomen: soft, non-tender. Bowel sounds normal. No masses, no organomegaly Extremities: extremities normal, atraumatic, no cyanosis or edema/ s/p bilateral aka Pulses: 2+ and symmetric Skin: Skin color, texture, turgor normal. No rashes or lesions. multiple large decubitus ulcers. Neurologic: Grossly normal Laboratory Tests Test 08/24/18 17:10 08/25/18 05:40 Sodium Level 142 MMOL/L (136-145) 141 MMOL/L (136-145) Potassium Level 3.3 MMOL/L (3.5-5.1) L 3.4 MMOL/L (3.5-5.1) L Chloride Level 110 MMOL/L (98-107) H 111 MMOL/L (98-107) H Carbon Dioxide Level 26 MMOL/L (21-32) 26 MMOL/L (21-32) Anion Gap 6 mmol/L (5-15) 4 mmol/L (5-15) L Blood Urea Nitrogen 14 mg/dL (7-18) 13 mg/dL (7-18) Creatinine 0.4 MG/DL (0.55-1.30) L 0.4 MG/DL (0.55-1.30) L Estimat Glomerular Filtration Rate > 60 mL/min (>60) > 60 mL/min (>60) Glucose Level 119 MG/DL (74-106) H 97 MG/DL (74-106) Calcium Level 7.2 MG/DL (8.5-10.1) L 7.4 MG/DL (8.5-10.1) L White Blood Count 10.7 K/UL (4.8-10.8) Red Blood Count 2.58 M/UL (4.70-6.10) L Hemoglobin 8.2 G/DL (14.2-18.0) L Hematocrit 24.8 % (42.0-52.0) L Mean Corpuscular Volume 96 FL (80-99) Mean Corpuscular Hemoglobin 31.6 PG (27.0-31.0) H Mean Corpuscular Hemoglobin Concent 33.0 G/DL (32.0-36.0) Red Cell Distribution Width 16.3 % (11.6-14.8) H Platelet Count 170 K/UL (150-450) Mean Platelet Volume 6.3 FL (6.5-10.1) L Neutrophils (%) (Auto) 69.9 % (45.0-75.0) Lymphocytes (%) (Auto) 19.8 % (20.0-45.0) L Monocytes (%) (Auto) 8.6 % (1.0-10.0) Eosinophils (%) (Auto) 0.9 % (0.0-3.0) Basophils (%) (Auto) 0.8 % (0.0-2.0) Current Medications Medications (Trade) Dose Ordered Sig/Erlin Route PRN Reason Start Time Stop Time Status Last Admin Dose Admin Acetaminophen (Tylenol) 650 mg Q4H PRN NG Mild Pain (Pain Scale 1-3) 08/17/18 11:00 09/13/18 06:44 08/25/18 12:42 Acetaminophen (Tylenol) 650 mg Q6H PRN NG Temp > 100.5 08/17/18 11:00 09/13/18 08:59 08/19/18 00:49 Amiodarone HCl (Cordarone) 200 mg DAILY NG 08/21/18 09:00 09/19/18 08:59 08/25/18 09:05 Apixaban (Eliquis) 2.5 mg Q12HR NG 08/17/18 21:00 09/13/18 08:59 08/25/18 09:04 Aripiprazole (Abilify) 5 mg BID ORAL 08/14/18 09:00 09/13/18 08:59 08/25/18 09:04 Chlorhexidine Gluconate (Yari-Hex 2%) 1 applic DAILY@1999 TOPIC 08/22/18 20:00 09/21/18 19:59 08/24/18 20:49 Clonidine HCl (Catapres tab) 0.2 mg Q4H PRN ORAL For High Blood Pressure 08/22/18 01:45 09/21/18 01:44 Dextrose/ Electrolytes 1,000 ml @ 75 mls/hr [id number] IV 08/17/18 11:30 09/16/18 11:29 08/25/18 05:55 Digoxin (Lanoxin) 0.125 mg DAILY NG 08/21/18 09:00 09/19/18 08:59 08/25/18 09:05 Gabapentin (Neurontin) 100 mg THREE TIMES A DAY NG 08/17/18 13:00 09/13/18 12:59 08/25/18 11:59 Isoniazid (Inh) 300 mg DAILY NG 08/18/18 09:00 09/13/18 08:59 08/25/18 09:04 Lactobacillus Acidophilus (Culturelle) 1 tab THREE TIMES A DAY NG 08/20/18 13:00 09/18/18 08:59 08/25/18 12:00 Magnesium Hydroxide (Mom) 30 ml BEDTIME NG 08/17/18 21:00 09/13/18 20:59 08/24/18 20:50 Meropenem 1 gm/ Sodium Chloride 55 ml @ 110 mls/hr Q8H IVPB 08/17/18 21:00 08/29/18 23:59 08/25/18 11:58 Metoprolol Tartrate (Lopressor) 50 mg Q12HR NG 08/23/18 21:00 09/22/18 20:59 08/24/18 20:50 Metronidazole (Flagyl) 500 mg Q8HR ORAL 08/23/18 14:00 08/30/18 13:59 08/25/18 05:55 Midodrine (Pro-Amatine) 5 mg THREE TIMES A DAY NG 08/17/18 13:00 09/13/18 08:59 08/25/18 11:59 Potassium Chloride (K-Dur) 40 meq Q4H NG 08/25/18 12:00 08/25/18 20:01 08/25/18 11:59 Pyridoxine HCl (Vitamin B6) 50 mg DAILY NG 08/18/18 09:00 09/13/18 08:59 08/25/18 09:04 Sodium Hypochlorite (Dakin's Quarter Strength) 1 applic DAILY TOPIC 08/14/18 16:00 09/13/18 15:59 08/25/18 09:05 Vancomycin HCl (Firvanq) 250 mg FOUR TIMES A DAY NG 08/17/18 13:00 08/29/18 23:59 08/25/18 11:59 Vitamin B Complex/ Vit C/Folic Acid (Nephrovite) 1 tab DAILY NG 08/18/18 09:00 09/13/18 08:59 08/25/18 09:03 Zinc Sulfate (Zinc Sulfate) 220 mg DAILY NG 08/18/18 09:00 09/13/18 08:59 08/25/18 09:03 Alma Elkins M.D. Aug 25, 2018 14:04
--- NOTE | 2018-08-25 14:25 | General Progress Note ---
Assessment/Plan Assessment/Plan Assessment - C Difficile colitis - failed swallow eval - Malnutrition , NGT - s/p b/l AKA - anemia - bacteremia, leukocytosis - improving Recommendations - continue Vanco PO - taper down broad spect abx when feasible - probiotics - elevate HOB - replace K - PEG next week - Poor Px Subjective Allergies: Coded Allergies: MILK (Verified Allergy, Unknown, 02/02/18) Subjective above noted NGT feeds tolerated non interactive d/w DTR Silvia - agreed with PEG Objective Last 24 Hour Vital Signs Date Time Temp Pulse Resp B/P (MAP) Pulse Ox O2 Delivery O2 Flow Rate FiO2 08/25/18 13:12 97.3 08/25/18 09:05 66 08/25/18 09:00 Nasal Cannula 2.0 08/25/18 08:00 97.3 66 20 130/76 (94) 97 08/25/18 08:00 66 08/25/18 04:00 97.9 64 18 129/68 (88) 98 08/25/18 03:43 56 08/25/18 00:20 98.2 68 18 133/70 (91) 98 08/25/18 00:04 52 08/24/18 21:00 Nasal Cannula 2.0 08/24/18 20:50 72 129/65 08/24/18 20:27 Nasal Cannula 2.0 28 08/24/18 20:27 98 Nasal Cannula 2.0 28 08/24/18 20:05 97.6 79 18 129/65 (86) 98 08/24/18 19:33 79 08/24/18 16:00 87 08/24/18 16:00 98.2 89 20 137/82 (100) 98 Intake and Output 08/24/18 08/25/18 19:00 07:00 Intake Total 1575 ml Output Total 1200 ml 650 ml Balance -1200 ml 925 ml Free Water 100 ml IV Total 935 ml Tube Feeding 540 ml Output Urine Total 450 ml 250 ml Stool Total 750 ml 400 ml Laboratory Tests 08/24/18 17:10: Sodium Level 142, Potassium Level 3.3L, Chloride Level 110H, Carbon Dioxide Level 26, Anion Gap 6, Blood Urea Nitrogen 14, Creatinine 0.4L, Estimat Glomerular Filtration Rate > 60, Glucose Level 119H, Calcium Level 7.2L 08/25/18 05:40: Sodium Level 141, Potassium Level 3.4L, Chloride Level 111H, Carbon Dioxide Level 26, Anion Gap 4L, Blood Urea Nitrogen 13, Creatinine 0.4L, Estimat Glomerular Filtration Rate > 60, Glucose Level 97, Calcium Level 7.4L, White Blood Count 10.7, Red Blood Count 2.58L, Hemoglobin 8.2L, Hematocrit 24.8L, Mean Corpuscular Volume 96, Mean Corpuscular Hemoglobin 31.6H, Mean Corpuscular Hemoglobin Concent 33.0, Red Cell Distribution Width 16.3H, Platelet Count 170, Mean Platelet Volume 6.3L, Neutrophils (%) (Auto) 69.9, Lymphocytes (%) (Auto) 19.8L, Monocytes (%) (Auto) 8.6, Eosinophils (%) (Auto) 0.9, Basophils (%) (Auto ) 0.8 Height (Feet): 6 Height (Inches): 0.40 Weight (Pounds): 155 Objective Elderly AA man NCAT supple CTA RRR Abd soft distended, minimally TTP (+) Gina Graham MD Aug 25, 2018 14:25
[2018-08-25] MEDS ORDERED: Tubing IV Secondary IV ONE (14:58)
[2018-08-25 16:00] VITALS: BP 120/66
--- NOTE | 2018-08-25 17:03 | Cardiac Electrophysiology PN ---
Assessment/Plan Assessment/Plan 1. Atrial fibrillation with rapid ventricular response. In SR on Eliquis 2.5 mg bid, metoprolol 50 mg bid, digoxin 0.125 and amiodarone 200 2. Fever and sepsis with Positive blood culture. IV antibiotics per Dr. Parker. 3. Dementia and psychosis. 4. 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 5. Sacral decubitus.S/P debridement 6. C. Diff colitis.On Flagyl 7. Hypotension on Midodrine 8. Hypokalemia, Being replaced DW RN Subjective Subjective In isolation in NAD, in NAD Objective Last 24 Hour Vital Signs Date Time Temp Pulse Resp B/P (MAP) Pulse Ox O2 Delivery O2 Flow Rate FiO2 08/25/18 16:00 65 08/25/18 16:00 98.6 64 20 120/66 (84) 97 08/25/18 13:12 97.3 08/25/18 12:00 98.3 64 20 136/79 (98) 97 08/25/18 12:00 60 08/25/18 09:05 66 08/25/18 09:00 Nasal Cannula 2.0 08/25/18 08:00 97.3 66 20 130/76 (94) 97 08/25/18 08:00 66 08/25/18 04:00 97.9 64 18 129/68 (88) 98 08/25/18 03:43 56 08/25/18 00:20 98.2 68 18 133/70 (91) 98 08/25/18 00:04 52 08/24/18 21:00 Nasal Cannula 2.0 08/24/18 20:50 72 129/65 08/24/18 20:27 Nasal Cannula 2.0 28 08/24/18 20:27 98 Nasal Cannula 2.0 28 08/24/18 20:05 97.6 79 18 129/65 (86) 98 08/24/18 19:33 79 Intake and Output 08/24/18 08/25/18 19:00 07:00 Intake Total 1575 ml Output Total 1200 ml 650 ml Balance -1200 ml 925 ml Free Water 100 ml IV Total 935 ml Tube Feeding 540 ml Output Urine Total 450 ml 250 ml Stool Total 750 ml 400 ml Laboratory Tests Test 08/24/18 17:10 08/25/18 05:40 Sodium Level 142 MMOL/L (136-145) 141 MMOL/L (136-145) Potassium Level 3.3 MMOL/L (3.5-5.1) L 3.4 MMOL/L (3.5-5.1) L Chloride Level 110 MMOL/L (98-107) H 111 MMOL/L (98-107) H Carbon Dioxide Level 26 MMOL/L (21-32) 26 MMOL/L (21-32) Anion Gap 6 mmol/L (5-15) 4 mmol/L (5-15) L Blood Urea Nitrogen 14 mg/dL (7-18) 13 mg/dL (7-18) Creatinine 0.4 MG/DL (0.55-1.30) L 0.4 MG/DL (0.55-1.30) L Estimat Glomerular Filtration Rate > 60 mL/min (>60) > 60 mL/min (>60) Glucose Level 119 MG/DL (74-106) H 97 MG/DL (74-106) Calcium Level 7.2 MG/DL (8.5-10.1) L 7.4 MG/DL (8.5-10.1) L White Blood Count 10.7 K/UL (4.8-10.8) Red Blood Count 2.58 M/UL (4.70-6.10) L Hemoglobin 8.2 G/DL (14.2-18.0) L Hematocrit 24.8 % (42.0-52.0) L Mean Corpuscular Volume 96 FL (80-99) Mean Corpuscular Hemoglobin 31.6 PG (27.0-31.0) H Mean Corpuscular Hemoglobin Concent 33.0 G/DL (32.0-36.0) Red Cell Distribution Width 16.3 % (11.6-14.8) H Platelet Count 170 K/UL (150-450) Mean Platelet Volume 6.3 FL (6.5-10.1) L Neutrophils (%) (Auto) 69.9 % (45.0-75.0) Lymphocytes (%) (Auto) 19.8 % (20.0-45.0) L Monocytes (%) (Auto) 8.6 % (1.0-10.0) Eosinophils (%) (Auto) 0.9 % (0.0-3.0) Basophils (%) (Auto) 0.8 % (0.0-2.0) Objective HEAD AND NECK: no JVD. NG tube. LUNGS: Have coarse rhonchi. CARDIOVASCULAR: Irregular S1 and S2 with no gallop or murmur. ABDOMEN: Soft. EXTREMITIES: Bilateral above-knee amputation. Amandeep Arora MD Aug 25, 2018 17:03
--- NOTE | 2018-08-25 17:39 | Internal Med Progress Note ---
Subjective Physician Name Pedro Caban Attending Physician Pedro Caban MD Current Medications Medications (Trade) Dose Ordered Sig/Erlin Route PRN Reason Start Time Stop Time Status Last Admin Dose Admin Acetaminophen (Tylenol) 650 mg Q4H PRN NG Mild Pain (Pain Scale 1-3) 08/17/18 11:00 09/13/18 06:44 08/25/18 12:42 Acetaminophen (Tylenol) 650 mg Q6H PRN NG Temp > 100.5 08/17/18 11:00 09/13/18 08:59 08/19/18 00:49 Amiodarone HCl (Cordarone) 200 mg DAILY NG 08/21/18 09:00 09/19/18 08:59 08/25/18 09:05 Apixaban (Eliquis) 2.5 mg Q12HR NG 08/17/18 21:00 09/13/18 08:59 08/25/18 09:04 Aripiprazole (Abilify) 5 mg BID ORAL 08/14/18 09:00 09/13/18 08:59 08/25/18 09:04 Chlorhexidine Gluconate (Yari-Hex 2%) 1 applic DAILY@2000 TOPIC 08/22/18 20:00 09/21/18 19:59 08/24/18 20:49 Clonidine HCl (Catapres tab) 0.2 mg Q4H PRN ORAL For High Blood Pressure 08/22/18 01:45 09/21/18 01:44 Dextrose/ Electrolytes 1,000 ml @ 75 mls/hr [id number] IV 08/17/18 11:30 09/16/18 11:29 08/25/18 05:55 Digoxin (Lanoxin) 0.125 mg DAILY NG 08/21/18 09:00 09/19/18 08:59 08/25/18 09:05 Gabapentin (Neurontin) 100 mg THREE TIMES A DAY NG 08/17/18 13:00 09/13/18 12:59 08/25/18 11:59 Isoniazid (Inh) 300 mg DAILY NG 08/18/18 09:00 09/13/18 08:59 08/25/18 09:04 Lactobacillus Acidophilus (Culturelle) 1 tab THREE TIMES A DAY NG 08/20/18 13:00 09/18/18 08:59 08/25/18 12:00 Magnesium Hydroxide (Mom) 30 ml BEDTIME NG 08/17/18 21:00 09/13/18 20:59 08/24/18 20:50 Meropenem 1 gm/ Sodium Chloride 55 ml @ 110 mls/hr Q8H IVPB 08/17/18 21:00 08/29/18 23:59 08/25/18 11:58 Metoprolol Tartrate (Lopressor) 50 mg Q12HR NG 08/23/18 21:00 09/22/18 20:59 08/24/18 20:50 Metronidazole (Flagyl) 500 mg Q8HR ORAL 08/23/18 14:00 08/30/18 13:59 08/25/18 15:05 Midodrine (Pro-Amatine) 5 mg THREE TIMES A DAY NG 08/17/18 13:00 09/13/18 08:59 08/25/18 11:59 Potassium Chloride (K-Dur) 40 meq Q4H NG 08/25/18 12:00 08/25/18 20:01 08/25/18 15:05 Pyridoxine HCl (Vitamin B6) 50 mg DAILY NG 08/18/18 09:00 09/13/18 08:59 08/25/18 09:04 Sodium Hypochlorite (Dakin's Quarter Strength) 1 applic DAILY TOPIC 08/14/18 16:00 09/13/18 15:59 08/25/18 09:05 Vancomycin HCl (Firvanq) 250 mg FOUR TIMES A DAY NG 08/17/18 13:00 08/29/18 23:59 08/25/18 11:59 Vitamin B Complex/ Vit C/Folic Acid (Nephrovite) 1 tab DAILY NG 08/18/18 09:00 09/13/18 08:59 08/25/18 09:03 Zinc Sulfate (Zinc Sulfate) 220 mg DAILY NG 08/18/18 09:00 09/13/18 08:59 08/25/18 09:03 Allergies: Coded Allergies: MILK (Verified Allergy, Unknown, 02/02/18) Subjective open eyes, more responsive, NG tube Objective Last Vital Signs Date Time Temp Pulse Resp B/P (MAP) Pulse Ox O2 Delivery O2 Flow Rate FiO2 08/25/18 16:00 65 08/25/18 16:00 98.6 20 120/66 (84) 97 08/25/18 09:00 Nasal Cannula 2.0 08/24/18 20:27 28 Laboratory Tests Test 08/25/18 05:40 White Blood Count 10.7 K/UL (4.8-10.8) Red Blood Count 2.58 M/UL (4.70-6.10) L Hemoglobin 8.2 G/DL (14.2-18.0) L Hematocrit 24.8 % (42.0-52.0) L Mean Corpuscular Volume 96 FL (80-99) Mean Corpuscular Hemoglobin 31.6 PG (27.0-31.0) H Mean Corpuscular Hemoglobin Concent 33.0 G/DL (32.0-36.0) Red Cell Distribution Width 16.3 % (11.6-14.8) H Platelet Count 170 K/UL (150-450) Mean Platelet Volume 6.3 FL (6.5-10.1) L Neutrophils (%) (Auto) 69.9 % (45.0-75.0) Lymphocytes (%) (Auto) 19.8 % (20.0-45.0) L Monocytes (%) (Auto) 8.6 % (1.0-10.0) Eosinophils (%) (Auto) 0.9 % (0.0-3.0) Basophils (%) (Auto) 0.8 % (0.0-2.0) Sodium Level 141 MMOL/L (136-145) Potassium Level 3.4 MMOL/L (3.5-5.1) L Chloride Level 111 MMOL/L (98-107) H Carbon Dioxide Level 26 MMOL/L (21-32) Anion Gap 4 mmol/L (5-15) L Blood Urea Nitrogen 13 mg/dL (7-18) Creatinine 0.4 MG/DL (0.55-1.30) L Estimat Glomerular Filtration Rate > 60 mL/min (>60) Glucose Level 97 MG/DL (74-106) Calcium Level 7.4 MG/DL (8.5-10.1) L Intake and Output 08/24/18 08/25/18 19:00 07:00 Intake Total 1575 ml Output Total 1200 ml 650 ml Balance -1200 ml 925 ml Free Water 100 ml IV Total 935 ml Tube Feeding 540 ml Output Urine Total 450 ml 250 ml Stool Total 750 ml 400 ml Objective General: No acute distress, more responsive HEENT: NCAT, sclera anicteric, PERRL, EOMI, NG tube, Neck: Supple, no significant jugular venous distention, Lungs: Fair inspiratory effort,decrease bilateral air entry at bases.l no Wheeze or Rales. Heart: Regular rate and rhythm, normal S1/S2, no murmur Abdomen: soft, generalized tenderness, less distended. Normoactive bowel sounds , Rectal Tube. Extremities: No Cyanosis , clubbing or edema. bilateral AKA, stump intact. Neuro: A&O x 1, Able to move upper extremities. SKIN: Multiple Decubi ulceration Assessment/Plan Assessment/Plan (1) Sepsis / bacteremia. Assessment & Plan: ESBL Proteus Mirablilis. Continue meropenem. 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 (5) Renal failure (ARF), acute on chronic (6) Decubitus ulcer Assessment & Plan: Await debridement per surgery-see note (7) Bipolar II disorder (8) Leukocytosis (9) Clostridium difficile colitis Assessment & Plan: Continue oral vanco and Flagyl per ID (10) CVA (cerebral vascular accident) (11) Acute metabolic encephalopathy (12) HTN (hypertension) (13) CAD (coronary artery disease) (14) Atrial fibrillation Plan: on Eliquis for PEG placement next week. wound care. Pedro Caban MD Aug 25, 2018 17:39
[2018-08-25 20:00] VITALS: BP 108/54
[2018-08-25] MEDS: Milk of Magnesia 30ml Ud NG SCH (21:05)
[2018-08-25] MEDS: Dyna-Hex 2% Top Sol 2oz TOPIC SCH (21:06)
[2018-08-25] MEDS ORDERED: HydrALAZINE 25mg tab ORAL PRN (21:15)
[2018-08-26] VITALS (9 sets, daily range): BP systolic 103–134; BP diastolic 56–87
[2018-08-26] MEDS: metroNIDAZOLE 500mg tab ORAL SCH (05:47)
[2018-08-26] MEDS: Meropenem 1 GM in NS 55 ML IVPB SCH ×3 (05:47→20:57)
[2018-08-26 06:46] LABS: HEMATOCRIT 23.3 % (42.0-52.0); MEAN CORPUSCULAR VOLUME 103 FL (80-99); PLATELET COUNT 128 K/UL (150-450); RED BLOOD COUNT 2.27 M/UL (4.70-6.10); RED CELL DISTRIBUTION WIDTH 16.8 % (11.6-14.8); WHITE BLOOD COUNT 8.7 K/UL (4.8-10.8)
--- NOTE | 2018-08-26 07:44 | Pulmonology Progress Note ---
Assessment/Plan Assessment/Plan ASSESSMENT sepsis with ESBL bacteremia ( likely GI translocation) C dif colitis DM Hypotension with hx of HTN PVD with bilateral BKA A Fib with RVR-resolved Anemia Hx of CVA Left pleural effusion Hx of lung cavitary lesion/PNA Chronic hepatitis C L elbow, R trochanter, R ischium decub ulcers, POA Severe protein calorie malnutrition Acute metabolic encephalopathy PLAN OF CARE tele O2 titrate, pulm toilet fup with CXR on Tuesday abx as per ID recs influenza screen negative , C dif negative. blood culture noted , last blood culture on 08/[address] abdomen and pelvis with bilateral pleural effusion with adjacent atelectasis/ consolidation cardio follows a/coag with Eliquis; continue BB, digoxin and amiodarone today in SR monitor BP, on Midodrine BP remains stable strict aspiration precaution failed swallow evaluation NG tube feeding , may need G-tube wound care as per surgeon recommendation dietary recommendations implemented in POC monitor renal parameters and electrolytes , correct electrolytes as needed ( today correct Mg and P0 avoid nephrotoxic transfuse 1 unit PRBC monitor H&H with goal to keep Hgb above 7 supportive care case discussed and evaluated by supervising physician Subjective Allergies: Coded Allergies: MILK (Verified Allergy, Unknown, 02/02/18) Subjective Leukocytosis resolved, afebrile No signs of respiratory distress on 3 L O2 pulse oximetry stable Hgb down to 6.5 Mg 1.6, P 1.4 Objective Last 24 Hour Vital Signs Date Time Temp Pulse Resp B/P (MAP) Pulse Ox O2 Delivery O2 Flow Rate FiO2 08/26/18 04:00 96.8 54 16 106/61 (76) 96 08/26/18 04:00 54 08/26/18 00:00 45 08/26/18 00:00 97.7 45 18 103/56 (72) 96 08/25/18 21:14 61 108/60 08/25/18 21:00 Nasal Cannula 2.0 08/25/18 20:00 52 08/25/18 20:00 97.5 52 18 108/54 (72) 96 08/25/18 20:00 96 Nasal Cannula 2.0 28 08/25/18 20:00 Nasal Cannula 2.0 28 08/25/18 16:00 65 08/25/18 16:00 98.6 64 20 120/66 (84) 97 08/25/18 13:12 97.3 08/25/18 12:00 98.3 64 20 136/79 (98) 97 08/25/18 12:00 60 08/25/18 09:05 66 08/25/18 09:00 Nasal Cannula 2.0 08/25/18 08:00 97.3 66 20 130/76 (94) 97 08/25/18 08:00 66 Intake and Output 08/25/18 08/26/18 19:00 07:00 Intake Total 135 ml 1238.75 ml Output Total 1100 ml 1100 ml Balance -965 ml 138.75 ml Free Water 150 ml IV Total 75 ml 428.75 ml Tube Feeding 60 ml 660 ml Output Urine Total 450 ml Stool Total 1100 ml 650 ml Laboratory Tests 08/26/18 05:35: White Blood Count 8.7, Red Blood Count 2.27L, Hemoglobin 7.0L, Hematocrit 23.3L , Mean Corpuscular Volume 103H, Mean Corpuscular Hemoglobin 30.9, Mean Corpuscular Hemoglobin Concent 30.1L, Red Cell Distribution Width 16.8H, Platelet Count 128L, Mean Platelet Volume 5.8L, Neutrophils (%) (Auto) , Lymphocytes (%) (Auto) , Monocytes (%) (Auto) , Eosinophils (%) (Auto) , Basophils (%) (Auto) , Neutrophils % (Manual) [Pending], Lymphocytes % (Manual) [Pending], Platelet Estimate [Pending], Platelet Morphology [Pending] Current Medications Medications (Trade) Dose Ordered Sig/Erlin Route PRN Reason Start Time Stop Time Status Last Admin Dose Admin Acetaminophen (Tylenol) 650 mg Q4H PRN NG Mild Pain (Pain Scale 1-3) 08/17/18 11:00 09/13/18 06:44 08/25/18 12:42 Acetaminophen (Tylenol) 650 mg Q6H PRN NG Temp > 100.5 08/17/18 11:00 09/13/18 08:59 08/19/18 00:49 Amiodarone HCl (Cordarone) 200 mg DAILY NG 08/21/18 09:00 09/19/18 08:59 08/25/18 09:05 Apixaban (Eliquis) 2.5 mg Q12HR NG 08/17/18 21:00 09/13/18 08:59 08/25/18 21:07 Aripiprazole (Abilify) 5 mg BID ORAL 08/14/18 09:00 09/13/18 08:59 08/25/18 18:17 Chlorhexidine Gluconate (Yari-Hex 2%) 1 applic DAILY@2000 TOPIC 08/22/18 20:00 09/21/18 19:59 08/25/18 21:06 Clonidine HCl (Catapres tab) 0.2 mg Q4H PRN ORAL For High Blood Pressure 08/22/18 01:45 09/21/18 01:44 Dextrose/ Electrolytes 1,000 ml @ 75 mls/hr [id number] IV 08/17/18 11:30 09/16/18 11:29 08/25/18 22:16 Digoxin (Lanoxin) 0.125 mg DAILY NG 08/21/18 09:00 09/19/18 08:59 08/25/18 09:05 Gabapentin (Neurontin) 100 mg THREE TIMES A DAY NG 08/17/18 13:00 09/13/18 12:59 08/25/18 18:17 Isoniazid (Inh) 300 mg DAILY NG 08/18/18 09:00 09/13/18 08:59 08/25/18 09:04 Lactobacillus Acidophilus (Culturelle) 1 tab THREE TIMES A DAY NG 08/20/18 13:00 09/18/18 08:59 08/25/18 18:17 Magnesium Hydroxide (Mom) 30 ml BEDTIME NG 08/17/18 21:00 09/13/18 20:59 08/25/18 21:05 Meropenem 1 gm/ Sodium Chloride 55 ml @ 110 mls/hr Q8H IVPB 08/17/18 21:00 08/29/18 23:59 08/26/18 05:47 Metoprolol Tartrate (Lopressor) 50 mg Q12HR NG 08/23/18 21:00 09/22/18 20:59 08/25/18 21:14 Metronidazole (Flagyl) 500 mg Q8HR ORAL 08/23/18 14:00 08/30/18 13:59 08/26/18 05:47 Midodrine (Pro-Amatine) 5 mg THREE TIMES A DAY NG 08/17/18 13:00 09/13/18 08:59 08/25/18 18:17 Pyridoxine HCl (Vitamin B6) 50 mg DAILY NG 08/18/18 09:00 09/13/18 08:59 08/25/18 09:04 Sodium Hypochlorite (Dakin's Quarter Strength) 1 applic DAILY TOPIC 08/14/18 16:00 09/13/18 15:59 08/25/18 09:05 Vancomycin HCl (Firvanq) 250 mg FOUR TIMES A DAY NG 08/17/18 13:00 08/29/18 23:59 08/25/18 21:06 Vitamin B Complex/ Vit C/Folic Acid (Nephrovite) 1 tab DAILY NG 08/18/18 09:00 09/13/18 08:59 08/25/18 09:03 Zinc Sulfate (Zinc Sulfate) 220 mg DAILY NG 08/18/18 09:00 09/13/18 08:59 08/25/18 09:03 Linsey Boo NP Aug 26, 2018 07:44
[2018-08-26 08:17] LABS: HEMATOCRIT 21.2 % (42.0-52.0); MEAN CORPUSCULAR VOLUME 99 FL (80-99); PLATELET COUNT 144 K/UL (150-450); RED BLOOD COUNT 2.14 M/UL (4.70-6.10); RED CELL DISTRIBUTION WIDTH 16.1 % (11.6-14.8); WHITE BLOOD COUNT 8.2 K/UL (4.8-10.8)
[2018-08-26 08:19] LABS: HEMOGLOBIN 6.5 G/DL (14.2-18.0)
--- NOTE | 2018-08-26 08:29 | Infectious Diseases Prog Note ---
Assessment/Plan Assessment/Plan Sepsis-2ry to bacteremia (likley from GI translocation ) -CT abd/p" Colonic mural thickening consistent with some form of colitis. No pneumatosis or extraluminal air. C Diff -Cdif toxin a/b + -Bcx 08/21 GNR, 08/21 ESBL Proteus mirabilis (S Ertapenem, Zosyn), 08/21 Group C strep ; 08/15 Bcx 07/24 Prevotella L . (R Clinda, Unasyn; S flagyl) ;08/17 Bcx 07/24 EUBACTERIUM LENTUM 08/21 Bcx NTD -u/a no pyuria -CXR: Suspect a small left pleural effusion. Mild basal atelectasis -influenza sc neg Fever, SP Leukocytosis , SP Hx of lung cavitary lesion/ PNA- suspect likely to aspiration; lower suspicion for TB and/or fungal etiologies -06/08 CT chest: * Interval resolution of the cavitary component associated with the previously described anterior right upper lobe opacity. It is slightly decreased in size and more nodular in appearance on today's exam. Additional patchy opacities in the posterior right upper lobe are also slightly decreased in size and appear more nodular (previously were groundglass). Findings likely related to evolving infectious or inflammatory lesions however continued follow-up is recommended to assure resolution/exclude the possibility of neoplastic etiologies. -CT c/a/p: 10 mm opacity in the peripheral anterolateral right upper lobe with small central cavitation. Patchy groundglass opacity in the posterior right upper lobe. Suspect that these represent inflammatory/infectious lesions, but neoplastic etiology of either is certainly possible. Large left and moderate right pleural effusions. Resultant compressive atelectasis of portions of the lower lobes. 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 Hypertension. Multiple decubiti ulcers (elbow, sacral) -not infected Bipolar disorder. Coronary artery disease. VRE and MRSA colonized Plan: -Continue Meropenem #10 (abx d #06/02) given ESBL bacteremia -Continue PO Vancomycin #/ for Cdiff and Flagyl #4 -Cont INH for latent TB -08/17 SP Zosyn #3, Daptomycin #3 -08/15 SP Tamiflu #2, Ceftriaxone #2 -08/14 SP Cefepime and LEvaquin x1 - f/u Repeat 2 sets of Bcx -Monitor CBC/CMP, temperatures -wound care -aspiration precautions -Sx f/u Subjective Allergies: Coded Allergies: MILK (Verified Allergy, Unknown, 02/02/18) Subjective Afebrile On 2L NC No leukocytosis BM x 0 Objective Vital Signs Last 24 Hour Vital Signs Date Time Temp Pulse Resp B/P (MAP) Pulse Ox O2 Delivery O2 Flow Rate FiO2 08/26/18 04:00 96.8 54 16 106/61 (76) 96 08/26/18 04:00 54 08/26/18 00:00 45 08/26/18 00:00 97.7 45 18 103/56 (72) 96 08/25/18 21:14 61 108/60 08/25/18 21:00 Nasal Cannula 2.0 08/25/18 20:00 52 08/25/18 20:00 97.5 52 18 108/54 (72) 96 08/25/18 20:00 96 Nasal Cannula 2.0 28 08/25/18 20:00 Nasal Cannula 2.0 28 08/25/18 16:00 65 08/25/18 16:00 98.6 64 20 120/66 (84) 97 08/25/18 13:12 97.3 08/25/18 12:00 98.3 64 20 136/79 (98) 97 08/25/18 12:00 60 08/25/18 09:05 66 08/25/18 09:00 Nasal Cannula 2.0 Height (Feet): 6 Height (Inches): 0.40 Weight (Pounds): 155 Objective Gen:NAD Head: NCAT, MMM, EOMI Lungs: CTAB, No w Heart: regular rate and rhythm, S1, S2 normal, Abdomen: soft, non-tender. Bowel sounds bran Laboratory Tests Test 08/26/18 05:35 08/26/18 08:00 White Blood Count 8.7 K/UL (4.8-10.8) 8.2 K/UL (4.8-10.8) Red Blood Count 2.27 M/UL (4.70-6.10) L 2.14 M/UL (4.70-6.10) L Hemoglobin 7.0 G/DL (14.2-18.0) L 6.5 G/DL (14.2-18.0) *L Hematocrit 23.3 % (42.0-52.0) L 21.2 % (42.0-52.0) L Mean Corpuscular Volume 103 FL (80-99) H 99 FL (80-99) Mean Corpuscular Hemoglobin 30.9 PG (27.0-31.0) 30.5 PG (27.0-31.0) Mean Corpuscular Hemoglobin Concent 30.1 G/DL (32.0-36.0) L 30.8 G/DL (32.0-36.0) L Red Cell Distribution Width 16.8 % (11.6-14.8) H 16.1 % (11.6-14.8) H Platelet Count 128 K/UL (150-450) L 144 K/UL (150-450) L Mean Platelet Volume 5.8 FL (6.5-10.1) L 5.5 FL (6.5-10.1) L Neutrophils (%) (Auto) % (45.0-75.0) % (45.0-75.0) Lymphocytes (%) (Auto) % (20.0-45.0) % (20.0-45.0) Monocytes (%) (Auto) % (1.0-10.0) % (1.0-10.0) Eosinophils (%) (Auto) % (0.0-3.0) % (0.0-3.0) Basophils (%) (Auto) % (0.0-2.0) % (0.0-2.0) Neutrophils % (Manual) Pending Pending Lymphocytes % (Manual) Pending Pending Platelet Estimate Pending Pending Platelet Morphology Pending Pending Sodium Level Pending Potassium Level Pending Chloride Level Pending Carbon Dioxide Level Pending Blood Urea Nitrogen Pending Creatinine Pending Estimat Glomerular Filtration Rate Pending Glucose Level Pending Calcium Level Pending Phosphorus Level Pending Magnesium Level Pending Total Bilirubin Pending Aspartate Amino Transf (AST/SGOT) Pending Alanine Aminotransferase (ALT/SGPT) Pending Alkaline Phosphatase Pending Total Protein Pending Albumin Pending Globulin Pending Current Medications Medications (Trade) Dose Ordered Sig/Erlin Route PRN Reason Start Time Stop Time Status Last Admin Dose Admin Acetaminophen (Tylenol) 650 mg Q4H PRN NG Mild Pain (Pain Scale 1-3) 08/17/18 11:00 09/13/18 06:44 08/25/18 12:42 Acetaminophen (Tylenol) 650 mg Q6H PRN NG Temp > 100.5 08/17/18 11:00 09/13/18 08:59 08/19/18 00:49 Amiodarone HCl (Cordarone) 200 mg DAILY NG 08/21/18 09:00 09/19/18 08:59 08/25/18 09:05 Apixaban (Eliquis) 2.5 mg Q12HR NG 08/17/18 21:00 09/13/18 08:59 08/25/18 21:07 Aripiprazole (Abilify) 5 mg BID ORAL 08/14/18 09:00 09/13/18 08:59 08/25/18 18:17 Chlorhexidine Gluconate (Yari-Hex 2%) 1 applic DAILY@2000 TOPIC 08/22/18 20:00 09/21/18 19:59 08/25/18 21:06 Clonidine HCl (Catapres tab) 0.2 mg Q4H PRN ORAL For High Blood Pressure 08/22/18 01:45 09/21/18 01:44 Dextrose/ Electrolytes 1,000 ml @ 75 mls/hr [id number] IV 08/17/18 11:30 09/16/18 11:29 08/25/18 22:16 Digoxin (Lanoxin) 0.125 mg DAILY NG 08/21/18 09:00 09/19/18 08:59 08/25/18 09:05 Gabapentin (Neurontin) 100 mg THREE TIMES A DAY NG 08/17/18 13:00 09/13/18 12:59 08/25/18 18:17 Isoniazid (Inh) 300 mg DAILY NG 08/18/18 09:00 09/13/18 08:59 08/25/18 09:04 Lactobacillus Acidophilus (Culturelle) 1 tab THREE TIMES A DAY NG 08/20/18 13:00 09/18/18 08:59 08/25/18 18:17 Magnesium Hydroxide (Mom) 30 ml BEDTIME NG 08/17/18 21:00 09/13/18 20:59 08/25/18 21:05 Meropenem 1 gm/ Sodium Chloride 55 ml @ 110 mls/hr Q8H IVPB 08/17/18 21:00 08/29/18 23:59 08/26/18 05:47 Metoprolol Tartrate (Lopressor) 50 mg Q12HR NG 08/23/18 21:00 09/22/18 20:59 08/25/18 21:14 Metronidazole (Flagyl) 500 mg Q8HR ORAL 08/23/18 14:00 08/30/18 13:59 08/26/18 05:47 Midodrine (Pro-Amatine) 5 mg THREE TIMES A DAY NG 08/17/18 13:00 09/13/18 08:59 08/25/18 18:17 Pyridoxine HCl (Vitamin B6) 50 mg DAILY NG 08/18/18 09:00 09/13/18 08:59 08/25/18 09:04 Sodium Hypochlorite (Dakin's Quarter Strength) 1 applic DAILY TOPIC 08/14/18 16:00 09/13/18 15:59 08/25/18 09:05 Vancomycin HCl (Firvanq) 250 mg FOUR TIMES A DAY NG 08/17/18 13:00 08/29/18 23:59 08/25/18 21:06 Vitamin B Complex/ Vit C/Folic Acid (Nephrovite) 1 tab DAILY NG 08/18/18 09:00 09/13/18 08:59 08/25/18 09:03 Zinc Sulfate (Zinc Sulfate) 220 mg DAILY NG 08/18/18 09:00 09/13/18 08:59 08/25/18 09:03 Vinny Murray MD Aug 26, 2018 08:29
[2018-08-26 08:33] LABS: ALANINE AMINOTRANSFERASE 12 U/L (12-78); ALBUMIN 0.9 G/DL (3.4-5.0); ALBUMIN/GLOBULIN RATIO 0.2 (1.0-2.7); ALKALINE PHOSPHATASE 165 U/L (46-116); ANION GAP 4 mmol/L (5-15); ASPARTATE AMINO TRANSFERASE 19 U/L (15-37); BILIRUBIN,TOTAL 0.2 MG/DL (0.2-1.0); BLOOD UREA NITROGEN 14 mg/dL (7-18); CALCIUM 7.4 MG/DL (8.5-10.1); CARBON DIOXIDE 26 MMOL/L (21-32); CHLORIDE 106 MMOL/L (98-107); CREATININE 0.5 MG/DL (0.55-1.30); PHOSPHORUS 1.4 MG/DL (2.5-4.9); POTASSIUM 3.6 MMOL/L (3.5-5.1); SODIUM 136 MMOL/L (136-145)
[2018-08-26] MEDS ORDERED: cloNIDine 0.2mg Tab GT PRN (09:45)
[2018-08-26] MEDS: Isoniazid 300mg tab NG SCH (09:55)
[2018-08-26] MEDS: Eliquis 2.5mg tablet NG SCH ×2 (09:56→20:58)
[2018-08-26] MEDS: Metoprolol Tartrate 50mg tab NG SCH ×2 (09:56→21:00)
[2018-08-26] MEDS: Zinc Sulfate 220mg cap NG SCH (09:56)
[2018-08-26] MEDS: Amiodarone 200mg tab NG SCH (09:57)
[2018-08-26] MEDS: Nephrovite tab (Rena-Vite) NG SCH (09:57)
[2018-08-26] MEDS: Pyridoxine 50mg tab NG SCH (09:57)
[2018-08-26] MEDS: Digoxin 0.125mg tab NG SCH (09:58)
[2018-08-26] MEDS: Lactobacillus-GG tablet NG SCH ×3 (10:00→17:35)
[2018-08-26] MEDS: Dakin's 0.125% Soln (Quarter Strength) 16oz TOPIC SCH (10:04)
[2018-08-26] MEDS: Vancomycin oral 125mg/2.5ml NG SCH ×4 (10:04→20:58)
[2018-08-26] MEDS: D5W w/KCl 20mEq 1,000 ML IV SCH ×2 (10:05→22:26)
[2018-08-26] MEDS ORDERED: Albuterol/Ipratropium 3ml neb HHN PRN (12:30)
[2018-08-26] MEDS: metroNIDAZOLE 500mg tab NG SCH ×2 (13:22→21:35)
--- NOTE | 2018-08-26 14:47 | Surgery Progress Note ---
Surgery Progress Note Subjective Additional Comments pending feeding tube. exam unchanged. not taking in much po intake. Objective Last 24 Hour Vital Signs Date Time Temp Pulse Resp B/P (MAP) Pulse Ox O2 Delivery O2 Flow Rate FiO2 08/26/18 13:23 98.1 53 21 133/73 (93) 100 08/26/18 12:00 97.9 51 21 118/71 (87) 100 08/26/18 12:00 49 08/26/18 11:04 97.9 54 20 123/70 (87) 97 08/26/18 10:49 97.9 78 20 117/78 (91) 97 08/26/18 09:58 67 08/26/18 09:56 67 134/87 08/26/18 09:00 Nasal Cannula 3.0 08/26/18 08:00 98.1 67 20 134/87 (103) 97 08/26/18 08:00 66 08/26/18 04:00 96.8 54 16 106/61 (76) 96 08/26/18 04:00 54 08/26/18 00:00 45 08/26/18 00:00 97.7 45 18 103/56 (72) 96 08/25/18 21:14 61 108/60 08/25/18 21:00 Nasal Cannula 2.0 08/25/18 20:00 52 08/25/18 20:00 97.5 52 18 108/54 (72) 96 08/25/18 20:00 96 Nasal Cannula 2.0 28 08/25/18 20:00 Nasal Cannula 2.0 28 08/25/18 16:00 65 08/25/18 16:00 98.6 64 20 120/66 (84) 97 I&O Intake and Output 08/25/18 08/26/18 19:00 07:00 Intake Total 135 ml 1818.75 ml Output Total 1100 ml 1100 ml Balance -965 ml 718.75 ml Free Water 150 ml IV Total 75 ml 1008.75 ml Tube Feeding 60 ml 660 ml Output Urine Total 450 ml Stool Total 1100 ml 650 ml Dressing: other Wound: other Drains: other Cardiovascular: RSR Respiratory: clear Abdomen: soft, non-tender, non-distended Extremities: other Laboratory Tests Test 08/26/18 05:35 08/26/18 08:00 White Blood Count 8.7 K/UL (4.8-10.8) 8.2 K/UL (4.8-10.8) Red Blood Count 2.27 M/UL (4.70-6.10) L 2.14 M/UL (4.70-6.10) L Hemoglobin 7.0 G/DL (14.2-18.0) L 6.5 G/DL (14.2-18.0) *L Hematocrit 23.3 % (42.0-52.0) L 21.2 % (42.0-52.0) L Mean Corpuscular Volume 103 FL (80-99) H 99 FL (80-99) Mean Corpuscular Hemoglobin 30.9 PG (27.0-31.0) 30.5 PG (27.0-31.0) Mean Corpuscular Hemoglobin Concent 30.1 G/DL (32.0-36.0) L 30.8 G/DL (32.0-36.0) L Red Cell Distribution Width 16.8 % (11.6-14.8) H 16.1 % (11.6-14.8) H Platelet Count 128 K/UL (150-450) L 144 K/UL (150-450) L Mean Platelet Volume 5.8 FL (6.5-10.1) L 5.5 FL (6.5-10.1) L Neutrophils (%) (Auto) % (45.0-75.0) % (45.0-75.0) Lymphocytes (%) (Auto) % (20.0-45.0) % (20.0-45.0) Monocytes (%) (Auto) % (1.0-10.0) % (1.0-10.0) Eosinophils (%) (Auto) % (0.0-3.0) % (0.0-3.0) Basophils (%) (Auto) % (0.0-2.0) % (0.0-2.0) Differential Total Cells Counted 100 100 Neutrophils % (Manual) 85 % (45-75) H 73 % (45-75) Lymphocytes % (Manual) 12 % (20-45) L 14 % (20-45) L Monocytes % (Manual) 2 % (1-10) 9 % (1-10) Eosinophils % (Manual) 1 % (0-3) 2 % (0-3) Basophils % (Manual) 0 % (0-2) 0 % (0-2) Band Neutrophils 0 % (0-8) 2 % (0-8) Platelet Estimate Decreased L Decreased L Platelet Morphology Normal Normal Anisocytosis 1+ 1+ Macrocytosis 1+ Hypochromasia 2+ Sodium Level 136 MMOL/L (136-145) Potassium Level 3.6 MMOL/L (3.5-5.1) Chloride Level 106 MMOL/L (98-107) Carbon Dioxide Level 26 MMOL/L (21-32) Anion Gap 4 mmol/L (5-15) L Blood Urea Nitrogen 14 mg/dL (7-18) Creatinine 0.5 MG/DL (0.55-1.30) L Estimat Glomerular Filtration Rate > 60 mL/min (>60) Glucose Level 130 MG/DL (74-106) H Calcium Level 7.4 MG/DL (8.5-10.1) L Phosphorus Level 1.4 MG/DL (2.5-4.9) L Magnesium Level 1.6 MG/DL (1.8-2.4) L Total Bilirubin 0.2 MG/DL (0.2-1.0) Aspartate Amino Transf (AST/SGOT) 19 U/L (15-37) Alanine Aminotransferase (ALT/SGPT) 12 U/L (12-78) Alkaline Phosphatase 165 U/L (46-116) H Total Protein 5.4 G/DL (6.4-8.2) L Albumin 0.9 G/DL (3.4-5.0) L Globulin 4.5 g/dL Albumin/Globulin Ratio 0.2 (1.0-2.7) L Plan Problems: (1) Sepsis Assessment & Plan: IV abx trend labs will monitor wounds spoke with daughter. consent obtained. s/p wound cleaning/debridement recommend PEG (2) Decubitus skin ulcer Assessment & Plan: Pt presented on admission with multiple full thickness pressure injuries. Full thickness pressure injury to L elbow.Base of wound wound with 25% fibrinous slough,75% pink granulation noted.(+) maceration along borders. erythema without elevation in skin temp periwound(L)1.5cm x (W)1.8cm x(D)0.3cm. Full thickness pressure injury R trochanter .Base of wound with pink granulation.Edges adherent to base of wound .No odor or exudate noted.Darker skin tone without induration periwound. (L)4.5cm x (W)6.3cm x (D) 3cm.Undermining 12-3 by 3cm @12o'clock. Full thickness pressure injury to R ischium .Wound is malodorous.90% soft necrosis,10% pink noted at base of wound ,(+) epibole along edges .Periwound darker in skin tone and is indurated.(L)8.4cm x (W)4.3cm (D)2.5cm .Tunneling at 1o'clock by 3.6cm ,tunneling @5o'clock by 6.3cm. Full thickness sacral pressure injury with 80% soft necrosis ,20% pink granulation .Wound is malodorous with small amt brown exudate (L)8.5cm x (W)5cm x (D)2.5cm ,undermining 8-5 by 4.7cm @1o'clock. wounds with gross drainage poor nutritional status. prognosis concerning Tx.Plan: Cleanse R trochanter with Dakin's 0.125% candelaria. Loosely pack with Dakin's soaked kerlix .Cover with Optifoam drsg TID and prn. Cleanse R Ischial wound with Dakin's 0.125% candelaria.Loosely pack with Dakin's soaked kerlix. Cavilon Skin Barrier periwound. Cover with Optifoam drsg TID and prn. Cleanse Sacral wound with dakin's 0.125% candelaria.Loosely pack with Dakin's soaked kerlix.Cavilon Skin Barrier periwound.Cover with Optifoam drsg TID and prn. Cleanse L elbow with Dakin's 0.125% candelaria. Apply Dakin's moist 2x2 gauze. Cover with Optifoam drsg TID and prn. Quartet Air fluidized mattress. Reposition L side to back at least every 2hours or as tolerated. 08/23- Patient has been improving with repeat blood cultures were without growth thus far. Spoke with patient's daughter yesterday explained that we will proceed with debridement which she and the family is consented to. Patient still unable to consent given his current medical condition and mental status. Patient was made comfortable at the bedside with the assistance of the wound care team and nursing staff we began evaluating and improving patient's wounds. The left elbow was evaluated and identified to have a 1-2 cm full-thickness injury with palpable bone no erythema or cellulitis not requiring any debridement at this time. Wound care and dressings have been going well for this wound. We will continue with wound care and dressings as above. The sacral wound was evaluated and identified to have a open portion stage IV as well as a necrotic eschar needed excision. Using a #10 scalpel and forceps the necrotic eschar was excised so that the entirety of the wound could be evaluated and cared for. There was significant soft slough noted in the wound bed and minor debridement was done but given the fact the patient is on Eliquis vision was made to forego complete debridement until safe time where patient can be off anticoagulation. The right issue wound was evaluated and noted to be fairly malodorous with soft tissue necrosis. There is near purulent drainage coming from this wound and some tracking was identified in the inferior aspect of the wound. Wound was completely evaluated and tracking noted. Wound was irrigated and cleansed until clean. Minor debridement of the necrotic wound edges was performed to allow for better evaluation of the underlying tissues. Following this Dakin's packing and dressing as noted above was continued. The right trochanter wound was identified and very clean with good granulation tissue identified not requiring further debridement at this time. Above wound care orders were continued as they have been slowly improving. There is significant amount of slough left and some debris that requires excision but needs to be done when patient is off Eliquis which at this time is not recommended. Goyo Osuna Aug 26, 2018 14:47
[2018-08-26] MEDS ORDERED: Potassium Phosphate 20 MM in NS 275 ML IV SCH (15:00)
--- NOTE | 2018-08-26 15:21 | Cardiac Electrophysiology PN ---
Assessment/Plan Assessment/Plan 1. Atrial fibrillation with rapid ventricular response. In SR on Eliquis 2.5 mg bid, metoprolol 50 mg bid, digoxin 0.125 and amiodarone 200 2. Fever and sepsis with Positive blood culture. IV antibiotics per Dr. Parker. 3. Dementia and psychosis. 4. 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 5. Sacral decubitus.S/P debridement 6. C. Diff colitis.On Flagyl 7. Hypotension. DC Midodrine as BP OK and now jeffry 8. Hypokalemia, Being replaced 9. Anemia, S/P PRBC. EGD Tuesday 10. Dysphagia. PEG Tuesday DW RN Subjective Subjective In isolation in NAD. Had 1 unit of PRBC. HR goes as low as 44. Objective Last 24 Hour Vital Signs Date Time Temp Pulse Resp B/P (MAP) Pulse Ox O2 Delivery O2 Flow Rate FiO2 08/26/18 13:23 98.1 53 21 133/73 (93) 100 08/26/18 12:00 97.9 51 21 118/71 (87) 100 08/26/18 12:00 49 08/26/18 11:04 97.9 54 20 123/70 (87) 97 08/26/18 10:49 97.9 78 20 117/78 (91) 97 08/26/18 09:58 67 08/26/18 09:56 67 134/87 08/26/18 09:00 Nasal Cannula 3.0 08/26/18 08:00 98.1 67 20 134/87 (103) 97 08/26/18 08:00 66 08/26/18 04:00 96.8 54 16 106/61 (76) 96 08/26/18 04:00 54 08/26/18 00:00 45 08/26/18 00:00 97.7 45 18 103/56 (72) 96 08/25/18 21:14 61 108/60 08/25/18 21:00 Nasal Cannula 2.0 08/25/18 20:00 52 08/25/18 20:00 97.5 52 18 108/54 (72) 96 08/25/18 20:00 96 Nasal Cannula 2.0 28 08/25/18 20:00 Nasal Cannula 2.0 28 08/25/18 16:00 65 08/25/18 16:00 98.6 64 20 120/66 (84) 97 Intake and Output 08/25/18 08/26/18 19:00 07:00 Intake Total 135 ml 1818.75 ml Output Total 1100 ml 1100 ml Balance -965 ml 718.75 ml Free Water 150 ml IV Total 75 ml 1008.75 ml Tube Feeding 60 ml 660 ml Output Urine Total 450 ml Stool Total 1100 ml 650 ml Laboratory Tests Test 08/26/18 05:35 08/26/18 08:00 White Blood Count 8.7 K/UL (4.8-10.8) 8.2 K/UL (4.8-10.8) Red Blood Count 2.27 M/UL (4.70-6.10) L 2.14 M/UL (4.70-6.10) L Hemoglobin 7.0 G/DL (14.2-18.0) L 6.5 G/DL (14.2-18.0) *L Hematocrit 23.3 % (42.0-52.0) L 21.2 % (42.0-52.0) L Mean Corpuscular Volume 103 FL (80-99) H 99 FL (80-99) Mean Corpuscular Hemoglobin 30.9 PG (27.0-31.0) 30.5 PG (27.0-31.0) Mean Corpuscular Hemoglobin Concent 30.1 G/DL (32.0-36.0) L 30.8 G/DL (32.0-36.0) L Red Cell Distribution Width 16.8 % (11.6-14.8) H 16.1 % (11.6-14.8) H Platelet Count 128 K/UL (150-450) L 144 K/UL (150-450) L Mean Platelet Volume 5.8 FL (6.5-10.1) L 5.5 FL (6.5-10.1) L Neutrophils (%) (Auto) % (45.0-75.0) % (45.0-75.0) Lymphocytes (%) (Auto) % (20.0-45.0) % (20.0-45.0) Monocytes (%) (Auto) % (1.0-10.0) % (1.0-10.0) Eosinophils (%) (Auto) % (0.0-3.0) % (0.0-3.0) Basophils (%) (Auto) % (0.0-2.0) % (0.0-2.0) Differential Total Cells Counted 100 100 Neutrophils % (Manual) 85 % (45-75) H 73 % (45-75) Lymphocytes % (Manual) 12 % (20-45) L 14 % (20-45) L Monocytes % (Manual) 2 % (1-10) 9 % (1-10) Eosinophils % (Manual) 1 % (0-3) 2 % (0-3) Basophils % (Manual) 0 % (0-2) 0 % (0-2) Band Neutrophils 0 % (0-8) 2 % (0-8) Platelet Estimate Decreased L Decreased L Platelet Morphology Normal Normal Anisocytosis 1+ 1+ Macrocytosis 1+ Hypochromasia 2+ Sodium Level 136 MMOL/L (136-145) Potassium Level 3.6 MMOL/L (3.5-5.1) Chloride Level 106 MMOL/L (98-107) Carbon Dioxide Level 26 MMOL/L (21-32) Anion Gap 4 mmol/L (5-15) L Blood Urea Nitrogen 14 mg/dL (7-18) Creatinine 0.5 MG/DL (0.55-1.30) L Estimat Glomerular Filtration Rate > 60 mL/min (>60) Glucose Level 130 MG/DL (74-106) H Calcium Level 7.4 MG/DL (8.5-10.1) L Phosphorus Level 1.4 MG/DL (2.5-4.9) L Magnesium Level 1.6 MG/DL (1.8-2.4) L Total Bilirubin 0.2 MG/DL (0.2-1.0) Aspartate Amino Transf (AST/SGOT) 19 U/L (15-37) Alanine Aminotransferase (ALT/SGPT) 12 U/L (12-78) Alkaline Phosphatase 165 U/L (46-116) H Total Protein 5.4 G/DL (6.4-8.2) L Albumin 0.9 G/DL (3.4-5.0) L Globulin 4.5 g/dL Albumin/Globulin Ratio 0.2 (1.0-2.7) L Objective HEAD AND NECK: no JVD. NG tube. LUNGS: Have coarse rhonchi. CARDIOVASCULAR: Irregular S1 and S2 with no gallop or murmur. ABDOMEN: Soft. EXTREMITIES: Bilateral above-knee amputation. Amandeep Arora MD Aug 26, 2018 15:21
--- NOTE | 2018-08-26 17:34 | Internal Med Progress Note ---
Subjective Date of Service: Aug 26, 2018 Physician Name Daniel Jackson Attending Physician Pedro Caban MD Current Medications Medications (Trade) Dose Ordered Sig/Erlin Route PRN Reason Start Time Stop Time Status Last Admin Dose Admin Acetaminophen (Tylenol) 650 mg Q4H PRN NG Mild Pain (Pain Scale 1-3) 08/17/18 11:00 09/13/18 06:44 08/25/18 12:42 Acetaminophen (Tylenol) 650 mg Q6H PRN NG Temp > 100.5 08/17/18 11:00 09/13/18 08:59 08/19/18 00:49 Albuterol/ Ipratropium (Albuterol/ Ipratropium) 3 ml Q4H PRN HHN sob 08/26/18 12:30 08/31/18 12:29 Amiodarone HCl (Cordarone) 200 mg DAILY NG 08/21/18 09:00 09/19/18 08:59 08/26/18 09:57 Apixaban (Eliquis) 2.5 mg Q12HR NG 08/17/18 21:00 09/13/18 08:59 08/26/18 09:56 Aripiprazole (Abilify) 5 mg BID ORAL 08/14/18 09:00 09/13/18 08:59 08/26/18 09:55 Chlorhexidine Gluconate (Yari-Hex 2%) 1 applic DAILY@2000 TOPIC 08/22/18 20:00 09/21/18 19:59 08/25/18 21:06 Clonidine HCl (Catapres tab) 0.2 mg Q4H PRN GT For High Blood Pressure 08/26/18 09:45 09/21/18 01:44 Dextrose/ Electrolytes 1,000 ml @ 75 mls/hr [id number] IV 08/17/18 11:30 09/16/18 11:29 08/26/18 10:05 Digoxin (Lanoxin) 0.125 mg DAILY NG 08/21/18 09:00 09/19/18 08:59 08/26/18 09:58 Gabapentin (Neurontin) 100 mg THREE TIMES A DAY NG 08/17/18 13:00 09/13/18 12:59 08/26/18 13:22 Isoniazid (Inh) 300 mg DAILY NG 08/18/18 09:00 09/13/18 08:59 08/26/18 09:55 Lactobacillus Acidophilus (Culturelle) 1 tab THREE TIMES A DAY NG 08/20/18 13:00 09/18/18 08:59 08/26/18 13:23 Magnesium Hydroxide (Mom) 30 ml BEDTIME NG 08/17/18 21:00 09/13/18 20:59 08/25/18 21:05 Meropenem 1 gm/ Sodium Chloride 55 ml @ 110 mls/hr Q8H IVPB 08/17/18 21:00 08/29/18 23:59 08/26/18 12:40 Metoprolol Tartrate (Lopressor) 50 mg Q12HR NG 08/23/18 21:00 09/22/18 20:59 08/26/18 09:56 Metronidazole (Flagyl) 500 mg Q8HR NG 08/26/18 14:00 08/30/18 13:59 08/26/18 13:22 Potassium Phosphate 20 mm/ Sodium Chloride 281.6667 ml @ 46.94 mls/hr ONCE IV 08/26/18 15:00 08/26/18 21:00 08/26/18 15:08 Pyridoxine HCl (Vitamin B6) 50 mg DAILY NG 08/18/18 09:00 09/13/18 08:59 08/26/18 09:57 Sodium Hypochlorite (Dakin's Quarter Strength) 1 applic DAILY TOPIC 08/14/18 16:00 09/13/18 15:59 08/26/18 10:04 Vancomycin HCl (Firvanq) 250 mg FOUR TIMES A DAY NG 08/17/18 13:00 08/29/18 23:59 08/26/18 13:23 Vitamin B Complex/ Vit C/Folic Acid (Nephrovite) 1 tab DAILY NG 08/18/18 09:00 09/13/18 08:59 08/26/18 09:57 Zinc Sulfate (Zinc Sulfate) 220 mg DAILY NG 08/18/18 09:00 09/13/18 08:59 08/26/18 09:56 Allergies: Coded Allergies: MILK (Verified Allergy, Unknown, 02/02/18) ROS Limited/Unobtainable: No Constitutional: Reports: no symptoms HEENT: Reports: no symptoms Cardiovascular: Reports: no symptoms Respiratory: Reports: no symptoms Gastrointestinal/Abdominal: Reports: no symptoms Genitourinary: Reports: no symptoms 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: Reports: no symptoms Subjective 68 YO M admitted with fever and leukocytosis. Now Sepsis and C. Difficile colitis/diarrhea. Cover for Int Med-Dr Caban. Objective Last Vital Signs Date Time Temp Pulse Resp B/P (MAP) Pulse Ox O2 Delivery O2 Flow Rate FiO2 08/26/18 16:00 98.2 50 21 125/84 (98) 100 08/26/18 09:00 Nasal Cannula 3.0 08/25/18 20:00 28 Laboratory Tests Test 08/26/18 05:35 08/26/18 08:00 White Blood Count 8.7 K/UL (4.8-10.8) 8.2 K/UL (4.8-10.8) Red Blood Count 2.27 M/UL (4.70-6.10) L 2.14 M/UL (4.70-6.10) L Hemoglobin 7.0 G/DL (14.2-18.0) L 6.5 G/DL (14.2-18.0) *L Hematocrit 23.3 % (42.0-52.0) L 21.2 % (42.0-52.0) L Mean Corpuscular Volume 103 FL (80-99) H 99 FL (80-99) Mean Corpuscular Hemoglobin 30.9 PG (27.0-31.0) 30.5 PG (27.0-31.0) Mean Corpuscular Hemoglobin Concent 30.1 G/DL (32.0-36.0) L 30.8 G/DL (32.0-36.0) L Red Cell Distribution Width 16.8 % (11.6-14.8) H 16.1 % (11.6-14.8) H Platelet Count 128 K/UL (150-450) L 144 K/UL (150-450) L Mean Platelet Volume 5.8 FL (6.5-10.1) L 5.5 FL (6.5-10.1) L Neutrophils (%) (Auto) % (45.0-75.0) % (45.0-75.0) Lymphocytes (%) (Auto) % (20.0-45.0) % (20.0-45.0) Monocytes (%) (Auto) % (1.0-10.0) % (1.0-10.0) Eosinophils (%) (Auto) % (0.0-3.0) % (0.0-3.0) Basophils (%) (Auto) % (0.0-2.0) % (0.0-2.0) Differential Total Cells Counted 100 100 Neutrophils % (Manual) 85 % (45-75) H 73 % (45-75) Lymphocytes % (Manual) 12 % (20-45) L 14 % (20-45) L Monocytes % (Manual) 2 % (1-10) 9 % (1-10) Eosinophils % (Manual) 1 % (0-3) 2 % (0-3) Basophils % (Manual) 0 % (0-2) 0 % (0-2) Band Neutrophils 0 % (0-8) 2 % (0-8) Platelet Estimate Decreased L Decreased L Platelet Morphology Normal Normal Anisocytosis 1+ 1+ Macrocytosis 1+ Hypochromasia 2+ Sodium Level 136 MMOL/L (136-145) Potassium Level 3.6 MMOL/L (3.5-5.1) Chloride Level 106 MMOL/L (98-107) Carbon Dioxide Level 26 MMOL/L (21-32) Anion Gap 4 mmol/L (5-15) L Blood Urea Nitrogen 14 mg/dL (7-18) Creatinine 0.5 MG/DL (0.55-1.30) L Estimat Glomerular Filtration Rate > 60 mL/min (>60) Glucose Level 130 MG/DL (74-106) H Calcium Level 7.4 MG/DL (8.5-10.1) L Phosphorus Level 1.4 MG/DL (2.5-4.9) L Magnesium Level 1.6 MG/DL (1.8-2.4) L Total Bilirubin 0.2 MG/DL (0.2-1.0) Aspartate Amino Transf (AST/SGOT) 19 U/L (15-37) Alanine Aminotransferase (ALT/SGPT) 12 U/L (12-78) Alkaline Phosphatase 165 U/L (46-116) H Total Protein 5.4 G/DL (6.4-8.2) L Albumin 0.9 G/DL (3.4-5.0) L Globulin 4.5 g/dL Albumin/Globulin Ratio 0.2 (1.0-2.7) L Intake and Output 08/25/18 08/26/18 19:00 07:00 Intake Total 135 ml 1818.75 ml Output Total 1100 ml 1100 ml Balance -965 ml 718.75 ml Free Water 150 ml IV Total 75 ml 1008.75 ml Tube Feeding 60 ml 660 ml Output Urine Total 450 ml Stool Total 1100 ml 650 ml Objective General Appearance: WD/WN, no apparent distress, lethargic EENT: PERRL/EOMI, normal ENT inspection Neck: non-tender, normal alignment, supple, normal inspection Cardiovascular: normal peripheral pulses, normal rate, regular rhythm, no gallop/murmur, no JVD Respiratory/Chest: chest wall non-tender, lungs clear, normal breath sounds, no respiratory distress, no accessory muscle use Abdomen: normal bowel sounds, non tender, soft, no organomegaly, no mass Extremities: normal range of motion, non-tender 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 Continue zosyn and meropenem per ID. 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 (5) Renal failure (ARF), acute on chronic (6) Decubitus ulcer Assessment & Plan: Await debridement per surgery-see note (7) Bipolar II disorder (8) Leukocytosis (9) Clostridium difficile colitis Assessment & Plan: Continue oral vanco per ID (10) CVA (cerebral vascular accident) (11) Acute metabolic encephalopathy (12) HTN (hypertension) (13) CAD (coronary artery disease) (14) Atrial fibrillation Assessment & Plan: Continue eliquis (15) Pneumonia Assessment & Plan: Continue INH per ID-see note (16) Hypernatremia Assessment & Plan: continue D5NS + KCL (17) Hypokalemia Assessment & Plan: Cont D5NS +Kcl (18) Anemia Assessment & Plan: S/P transfusion 2 units PRBC (19) Protein-calorie malnutrition Assessment & Plan: Await PEG-see GI note Daniel Jackson MD Aug 26, 2018 17:34
[2018-08-26] MEDS: Dyna-Hex 2% Top Sol 2oz TOPIC SCH (20:06)
[2018-08-26] MEDS: Milk of Magnesia 30ml Ud NG SCH (21:01)
--- NOTE | 2018-08-26 21:55 | General Progress Note ---
Assessment/Plan Assessment/Plan Assessment - C Difficile colitis - failed swallow eval - Malnutrition , NGT - s/p b/l AKA - anemia - bacteremia, leukocytosis - improving Recommendations - continue Vanco PO - probiotics - elevate HOB - replace lytes - transfuse PRN - PEG next week --> Tuesday am - Poor Px Subjective Allergies: Coded Allergies: MILK (Verified Allergy, Unknown, 02/02/18) Subjective above noted NGT feeds tolerated non interactive received Eliquis today --> d/c'd PEG scheduled for Tuesday to allow for anticoagulation recovery Objective Last 24 Hour Vital Signs Date Time Temp Pulse Resp B/P (MAP) Pulse Ox O2 Delivery O2 Flow Rate FiO2 08/26/18 21:00 53 126/70 08/26/18 20:35 99 Nasal Cannula 3.0 32 08/26/18 20:35 Nasal Cannula 3.0 32 08/26/18 16:00 47 08/26/18 16:00 98.2 50 21 125/84 (98) 100 08/26/18 13:23 98.1 53 21 133/73 (93) 100 08/26/18 12:00 97.9 51 21 118/71 (87) 100 08/26/18 12:00 49 08/26/18 11:04 97.9 54 20 123/70 (87) 97 08/26/18 10:49 97.9 78 20 117/78 (91) 97 08/26/18 09:58 67 08/26/18 09:56 67 134/87 08/26/18 09:00 Nasal Cannula 3.0 08/26/18 08:00 98.1 67 20 134/87 (103) 97 08/26/18 08:00 66 08/26/18 04:00 96.8 54 16 106/61 (76) 96 08/26/18 04:00 54 08/26/18 00:00 45 08/26/18 00:00 97.7 45 18 103/56 (72) 96 Intake and Output 08/25/18 08/26/18 19:00 07:00 Intake Total 135 ml 1818.75 ml Output Total 1100 ml 1100 ml Balance -965 ml 718.75 ml Free Water 150 ml IV Total 75 ml 1008.75 ml Tube Feeding 60 ml 660 ml Output Urine Total 450 ml Stool Total 1100 ml 650 ml Laboratory Tests 08/26/18 05:35: White Blood Count 8.7, Red Blood Count 2.27L, Hemoglobin 7.0L, Hematocrit 23.3L , Mean Corpuscular Volume 103H, Mean Corpuscular Hemoglobin 30.9, Mean Corpuscular Hemoglobin Concent 30.1L, Red Cell Distribution Width 16.8H, Platelet Count 128L, Mean Platelet Volume 5.8L, Neutrophils (%) (Auto) , Lymphocytes (%) (Auto) , Monocytes (%) (Auto) , Eosinophils (%) (Auto) , Basophils (%) (Auto) , Differential Total Cells Counted 100, Neutrophils % ( Manual) 85H, Lymphocytes % (Manual) 12L, Monocytes % (Manual) 2, Eosinophils % ( Manual) 1, Basophils % (Manual) 0, Band Neutrophils 0, Platelet Estimate DecreasedL, Platelet Morphology Normal, Anisocytosis 1+, Macrocytosis 1+ 08/26/18 08:00: White Blood Count 8.2, Red Blood Count 2.14L, Hemoglobin 6.5*L, Hematocrit 21.2L , Mean Corpuscular Volume 99, Mean Corpuscular Hemoglobin 30.5, Mean Corpuscular Hemoglobin Concent 30.8L, Red Cell Distribution Width 16.1H, Platelet Count 144L, Mean Platelet Volume 5.5L, Neutrophils (%) (Auto) , Lymphocytes (%) (Auto) , Monocytes (%) (Auto) , Eosinophils (%) (Auto) , Basophils (%) (Auto) , Differential Total Cells Counted 100, Neutrophils % ( Manual) 73, Lymphocytes % (Manual) 14L, Monocytes % (Manual) 9, Eosinophils % ( Manual) 2, Basophils % (Manual) 0, Band Neutrophils 2, Platelet Estimate DecreasedL, Platelet Morphology Normal, Anisocytosis 1+, Hypochromasia 2+, Sodium Level 136, Potassium Level 3.6, Chloride Level 106, Carbon Dioxide Level 26, Anion Gap 4L, Blood Urea Nitrogen 14, Creatinine 0.5L, Estimat Glomerular Filtration Rate > 60, Glucose Level 130H, Calcium Level 7.4L, Phosphorus Level 1.4L, Magnesium Level 1.6L, Total Bilirubin 0.2, Aspartate Amino Transf (AST/ SGOT) 19, Alanine Aminotransferase (ALT/SGPT) 12, Alkaline Phosphatase 165H, Total Protein 5.4L, Albumin 0.9L, Globulin 4.5, Albumin/Globulin Ratio 0.2L Height (Feet): 6 Height (Inches): 0.40 Weight (Pounds): 155 Objective Elderly AA man NCAT supple CTA RRR Abd soft (+) Gina Graham MD Aug 26, 2018 21:55
[2018-08-27] VITALS: BP 152/73
[2018-08-27 04:00] VITALS: BP 104/71
[2018-08-27] MEDS: Meropenem 1 GM in NS 55 ML IVPB SCH ×3 (04:30→20:36)
[2018-08-27] MEDS: metroNIDAZOLE 500mg tab NG SCH ×3 (05:51→22:52)
[2018-08-27 07:55] LABS: BASOPHILS % (AUTO) 1.1 % (0.0-2.0); EOSINOPHILS % (AUTO) 1.7 % (0.0-3.0); HEMATOCRIT 27.2 % (42.0-52.0); HEMOGLOBIN 8.6 G/DL (14.2-18.0); LYMPHOCYTES % (AUTO) 21.1 % (20.0-45.0); MEAN CORPUSCULAR VOLUME 97 FL (80-99); MONOCYTES % (AUTO) 8.6 % (1.0-10.0); NEUTROPHILS % (AUTO) 67.6 % (45.0-75.0); PLATELET COUNT 168 K/UL (150-450); RED BLOOD COUNT 2.82 M/UL (4.70-6.10); RED CELL DISTRIBUTION WIDTH 16.6 % (11.6-14.8); WHITE BLOOD COUNT 9.3 K/UL (4.8-10.8)
[2018-08-27 08:00] VITALS: BP 127/85
--- NOTE | 2018-08-27 08:11 | Pulmonology Progress Note ---
Assessment/Plan Assessment/Plan ASSESSMENT sepsis with ESBL bacteremia ( likely GI translocation) C dif colitis DM Hypotension with hx of HTN PVD with bilateral BKA A Fib with RVR-resolved Anemia Hx of CVA Left pleural effusion Hx of lung cavitary lesion/PNA Chronic hepatitis C L elbow, R trochanter, R ischium decub ulcers, POA Severe protein calorie malnutrition Acute metabolic encephalopathy PLAN OF CARE tele O2 titrate, pulm toilet fup with CXR on Tuesday abx as per ID recs influenza screen negative , C dif negative. blood culture noted , last blood culture on 08/[address] abdomen and pelvis with bilateral pleural effusion with adjacent atelectasis/ consolidation cardio follows a/coag with Eliquis; continue BB, digoxin and amiodarone today in SR monitor BP, on Midodrine BP remains stable strict aspiration precaution failed swallow evaluation NG tube feeding , may need G-tube wound care as per surgeon recommendation dietary recommendations implemented in POC monitor renal parameters and electrolytes , correct electrolytes as needed ( today correct Mg with 3 gm IV Mg and Na with phosphate with 20 meQ Na phosphate) , check lytes in am avoid nephrotoxic monitor H&H with goal to keep Hgb above 7, s/p 1 u PRBC 08/26 supportive care case discussed and evaluated by supervising physician Subjective Allergies: Coded Allergies: MILK (Verified Allergy, Unknown, 02/02/18) Subjective Leukocytosis resolved, afebrile No signs of respiratory distress on 3 L O2 pulse oximetry stable Hgb up after transfusion Mg 1.5, P 2.0, Na 124 Objective Last 24 Hour Vital Signs Date Time Temp Pulse Resp B/P (MAP) Pulse Ox O2 Delivery O2 Flow Rate FiO2 08/27/18 04:00 54 08/27/18 04:00 97.5 59 19 104/71 (82) 100 59 08/27/18 00:00 55 08/27/18 00:00 98.1 55 20 152/73 (99) 99 50 08/26/18 21:00 53 126/70 08/26/18 21:00 Nasal Cannula 2.0 08/26/18 20:35 99 Nasal Cannula 3.0 32 08/26/18 20:35 Nasal Cannula 3.0 32 08/26/18 20:00 48 08/26/18 20:00 97.9 50 20 126/70 (88) 100 48 08/26/18 16:00 47 08/26/18 16:00 98.2 50 21 125/84 (98) 100 08/26/18 13:23 98.1 53 21 133/73 (93) 100 08/26/18 12:00 97.9 51 21 118/71 (87) 100 08/26/18 12:00 49 08/26/18 11:04 97.9 54 20 123/70 (87) 97 08/26/18 10:49 97.9 78 20 117/78 (91) 97 08/26/18 09:58 67 08/26/18 09:56 67 134/87 08/26/18 09:00 Nasal Cannula 3.0 Intake and Output 08/26/18 08/27/18 18:59 06:59 Intake Total 1300.82 ml 945.94 ml Output Total 500 ml 400 ml Balance 800.82 ml 545.94 ml IV Total 1300.82 ml 915.94 ml Tube Feeding 30 ml Output Urine Total 500 ml 400 ml General Appearance: no acute distress, other - awake, chronically ill looking, bedridden, confused AA male, HEENT: normocephalic, atraumatic, anicteric, other - NGT Respiratory/Chest: lungs clear, no respiratory distress, no accessory muscle use, other Cardiovascular: normal rate, regular rhythm, no JVD Abdomen: normal bowel sounds, soft, non tender Extremities: other - bilateral BKA Skin: other - skin decub L elbow, R trochanter, R ischium - all present on admission 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: abnormal gait - bedridden , other - awake, responsive, confused, Laboratory Tests 08/27/18 06:05: White Blood Count 9.3, Red Blood Count 2.82L, Hemoglobin 8.6#L, Hematocrit 27.2L , Mean Corpuscular Volume 97, Mean Corpuscular Hemoglobin 30.4, Mean Corpuscular Hemoglobin Concent 31.5L, Red Cell Distribution Width 16.6H, Platelet Count 168, Mean Platelet Volume 6.1L, Neutrophils (%) (Auto) 67.6, Lymphocytes (%) (Auto) 21.1, Monocytes (%) (Auto) 8.6, Eosinophils (%) (Auto) 1.7, Basophils (%) (Auto) 1.1, Sodium Level [Pending], Potassium Level [Pending] , Chloride Level [Pending], Carbon Dioxide Level [Pending], Blood Urea Nitrogen [Pending], Creatinine [Pending], Estimat Glomerular Filtration Rate [Pending], Glucose Level [Pending], Calcium Level [Pending], Phosphorus Level [Pending], Magnesium Level [Pending] Current Medications Medications (Trade) Dose Ordered Sig/Erlin Route PRN Reason Start Time Stop Time Status Last Admin Dose Admin Acetaminophen (Tylenol) 650 mg Q4H PRN NG Mild Pain (Pain Scale 1-3) 08/17/18 11:00 09/13/18 06:44 08/25/18 12:42 Acetaminophen (Tylenol) 650 mg Q6H PRN NG Temp > 100.5 08/17/18 11:00 09/13/18 08:59 08/19/18 00:49 Albuterol/ Ipratropium (Albuterol/ Ipratropium) 3 ml Q4H PRN HHN sob 08/26/18 12:30 08/31/18 12:29 Amiodarone HCl (Cordarone) 200 mg DAILY NG 08/21/18 09:00 09/19/18 08:59 08/26/18 09:57 Aripiprazole (Abilify) 5 mg BID ORAL 08/14/18 09:00 09/13/18 08:59 08/26/18 17:35 Chlorhexidine Gluconate (Yari-Hex 2%) 1 applic DAILY@2000 TOPIC 08/22/18 20:00 09/21/18 19:59 08/26/18 20:06 Clonidine HCl (Catapres tab) 0.2 mg Q4H PRN GT For High Blood Pressure 08/26/18 09:45 09/21/18 01:44 Dextrose/ Electrolytes 1,000 ml @ 75 mls/hr [id number] IV 08/17/18 11:30 09/16/18 11:29 08/26/18 22:26 Digoxin (Lanoxin) 0.125 mg DAILY NG 08/21/18 09:00 09/19/18 08:59 08/26/18 09:58 Gabapentin (Neurontin) 100 mg THREE TIMES A DAY NG 08/17/18 13:00 09/13/18 12:59 08/26/18 17:35 Isoniazid (Inh) 300 mg DAILY NG 08/18/18 09:00 09/13/18 08:59 08/26/18 09:55 Lactobacillus Acidophilus (Culturelle) 1 tab THREE TIMES A DAY NG 08/20/18 13:00 09/18/18 08:59 08/26/18 17:35 Magnesium Hydroxide (Mom) 30 ml BEDTIME NG 08/17/18 21:00 09/13/18 20:59 08/26/18 21:01 Meropenem 1 gm/ Sodium Chloride 55 ml @ 110 mls/hr Q8H IVPB 08/17/18 21:00 08/29/18 23:59 08/27/18 04:30 Metoprolol Tartrate (Lopressor) 50 mg Q12HR NG 08/23/18 21:00 09/22/18 20:59 08/26/18 09:56 Metronidazole (Flagyl) 500 mg Q8HR NG 08/26/18 14:00 08/30/18 13:59 08/27/18 05:51 Pyridoxine HCl (Vitamin B6) 50 mg DAILY NG 08/18/18 09:00 09/13/18 08:59 08/26/18 09:57 Sodium Hypochlorite (Dakin's Quarter Strength) 1 applic DAILY TOPIC 08/14/18 16:00 09/13/18 15:59 08/26/18 10:04 Vancomycin HCl (Firvanq) 250 mg FOUR TIMES A DAY NG 08/17/18 13:00 08/29/18 23:59 08/26/18 20:58 Vitamin B Complex/ Vit C/Folic Acid (Nephrovite) 1 tab DAILY NG 08/18/18 09:00 09/13/18 08:59 08/26/18 09:57 Zinc Sulfate (Zinc Sulfate) 220 mg DAILY NG 08/18/18 09:00 09/13/18 08:59 08/26/18 09:56 Linsey Boo NP Aug 27, 2018 08:11
[2018-08-27 08:38] LABS: ANION GAP 1 mmol/L (5-15); BLOOD UREA NITROGEN 10 mg/dL (7-18); CALCIUM 6.9 MG/DL (8.5-10.1); CARBON DIOXIDE 24 MMOL/L (21-32); CHLORIDE 99 MMOL/L (98-107); CREATININE 0.5 MG/DL (0.55-1.30); POTASSIUM 4.9 MMOL/L (3.5-5.1); SODIUM 124 MMOL/L (136-145)
[2018-08-27] MEDS: Zinc Sulfate 220mg cap NG SCH (09:36)
[2018-08-27] MEDS: Lactobacillus-GG tablet NG SCH ×3 (09:36→17:20)
[2018-08-27] MEDS: Pyridoxine 50mg tab NG SCH (09:36)
[2018-08-27] MEDS: Amiodarone 200mg tab NG SCH (09:37)
[2018-08-27] MEDS: Isoniazid 300mg tab NG SCH (09:37)
[2018-08-27] MEDS: Digoxin 0.125mg tab NG SCH (09:38)
[2018-08-27] MEDS: Nephrovite tab (Rena-Vite) NG SCH (09:39)
[2018-08-27] MEDS: Metoprolol Tartrate 50mg tab NG SCH ×2 (09:39→21:00)
[2018-08-27] MEDS: Vancomycin oral 125mg/2.5ml NG SCH ×4 (09:40→20:37)
[2018-08-27] MEDS: Dakin's 0.125% Soln (Quarter Strength) 16oz TOPIC SCH (09:41)
[2018-08-27] MEDS ORDERED: Sodium Phosphate 20 MM in NS 275 ML IV SCH (11:00)
[2018-08-27] MEDS: D5W w/KCl 20mEq 1,000 ML IV SCH (11:36)
[2018-08-27 12:00] VITALS: BP 132/67
--- NOTE | 2018-08-27 14:58 | Surgery Progress Note ---
Surgery Progress Note Subjective Additional Comments no acute events. stable. labs noted. Objective Last 24 Hour Vital Signs Date Time Temp Pulse Resp B/P (MAP) Pulse Ox O2 Delivery O2 Flow Rate FiO2 08/27/18 12:00 46 08/27/18 12:00 97.2 45 20 132/67 (88) 97 66 08/27/18 09:45 100 Nasal Cannula 3.0 32 08/27/18 09:45 Nasal Cannula 3.0 32 08/27/18 09:39 66 127/85 08/27/18 09:38 66 08/27/18 09:00 Nasal Cannula 2.0 08/27/18 08:00 97.3 66 19 127/85 (99) 98 66 08/27/18 08:00 65 08/27/18 04:00 54 08/27/18 04:00 97.5 59 19 104/71 (82) 100 59 08/27/18 00:00 55 08/27/18 00:00 98.1 55 20 152/73 (99) 99 50 08/26/18 21:00 53 126/70 08/26/18 21:00 Nasal Cannula 2.0 08/26/18 20:35 99 Nasal Cannula 3.0 32 08/26/18 20:35 Nasal Cannula 3.0 32 08/26/18 20:00 48 08/26/18 20:00 97.9 50 20 126/70 (88) 100 48 08/26/18 16:00 47 08/26/18 16:00 98.2 50 21 125/84 (98) 100 I&O Intake and Output 08/26/18 08/27/18 19:00 07:00 Intake Total 1225.82 ml 1020.94 ml Output Total 500 ml 400 ml Balance 725.82 ml 620.94 ml IV Total 1225.82 ml 990.94 ml Tube Feeding 30 ml Output Urine Total 500 ml 400 ml Dressing: saturated Wound: other Drains: other Cardiovascular: RSR Respiratory: clear Abdomen: soft, non-tender, non-distended Extremities: other Laboratory Tests Test 08/27/18 06:05 White Blood Count 9.3 K/UL (4.8-10.8) Red Blood Count 2.82 M/UL (4.70-6.10) L Hemoglobin 8.6 G/DL (14.2-18.0) #L Hematocrit 27.2 % (42.0-52.0) L Mean Corpuscular Volume 97 FL (80-99) Mean Corpuscular Hemoglobin 30.4 PG (27.0-31.0) Mean Corpuscular Hemoglobin Concent 31.5 G/DL (32.0-36.0) L Red Cell Distribution Width 16.6 % (11.6-14.8) H Platelet Count 168 K/UL (150-450) Mean Platelet Volume 6.1 FL (6.5-10.1) L Neutrophils (%) (Auto) 67.6 % (45.0-75.0) Lymphocytes (%) (Auto) 21.1 % (20.0-45.0) Monocytes (%) (Auto) 8.6 % (1.0-10.0) Eosinophils (%) (Auto) 1.7 % (0.0-3.0) Basophils (%) (Auto) 1.1 % (0.0-2.0) Sodium Level 124 MMOL/L (136-145) #L Potassium Level 4.9 MMOL/L (3.5-5.1) Chloride Level 99 MMOL/L (98-107) Carbon Dioxide Level 24 MMOL/L (21-32) Anion Gap 1 mmol/L (5-15) L Blood Urea Nitrogen 10 mg/dL (7-18) Creatinine 0.5 MG/DL (0.55-1.30) L Estimat Glomerular Filtration Rate > 60 mL/min (>60) Glucose Level 425 MG/DL (74-106) #H Calcium Level 6.9 MG/DL (8.5-10.1) L Phosphorus Level 2.0 MG/DL (2.5-4.9) L Magnesium Level 1.5 MG/DL (1.8-2.4) L Plan Problems: (1) Sepsis Assessment & Plan: IV abx trend labs will monitor wounds spoke with daughter. consent obtained. s/p wound cleaning/debridement recommend PEG (2) Decubitus skin ulcer Assessment & Plan: Pt presented on admission with multiple full thickness pressure injuries. Full thickness pressure injury to L elbow.Base of wound wound with 25% fibrinous slough,75% pink granulation noted.(+) maceration along borders. erythema without elevation in skin temp periwound(L)1.5cm x (W)1.8cm x(D)0.3cm. Full thickness pressure injury R trochanter .Base of wound with pink granulation.Edges adherent to base of wound .No odor or exudate noted.Darker skin tone without induration periwound. (L)4.5cm x (W)6.3cm x (D) 3cm.Undermining 12-3 by 3cm @12o'clock. Full thickness pressure injury to R ischium .Wound is malodorous.90% soft necrosis,10% pink noted at base of wound ,(+) epibole along edges .Periwound darker in skin tone and is indurated.(L)8.4cm x (W)4.3cm (D)2.5cm .Tunneling at 1o'clock by 3.6cm ,tunneling @5o'clock by 6.3cm. Full thickness sacral pressure injury with 80% soft necrosis ,20% pink granulation .Wound is malodorous with small amt brown exudate (L)8.5cm x (W)5cm x (D)2.5cm ,undermining 8-5 by 4.7cm @1o'clock. wounds with gross drainage poor nutritional status. prognosis concerning Tx.Plan: Cleanse R trochanter with Dakin's 0.125% candelaria. Loosely pack with Dakin's soaked kerlix .Cover with Optifoam drsg TID and prn. Cleanse R Ischial wound with Dakin's 0.125% candelaria.Loosely pack with Dakin's soaked kerlix. Cavilon Skin Barrier periwound. Cover with Optifoam drsg TID and prn. Cleanse Sacral wound with dakin's 0.125% candelaria.Loosely pack with Dakin's soaked kerlix.Cavilon Skin Barrier periwound.Cover with Optifoam drsg TID and prn. Cleanse L elbow with Dakin's 0.125% candelaria. Apply Dakin's moist 2x2 gauze. Cover with Optifoam drsg TID and prn. Quartet Air fluidized mattress. Reposition L side to back at least every 2hours or as tolerated. /- Patient has been improving with repeat blood cultures were without growth thus far. Spoke with patient's daughter yesterday explained that we will proceed with debridement which she and the family is consented to. Patient still unable to consent given his current medical condition and mental status. Patient was made comfortable at the bedside with the assistance of the wound care team and nursing staff we began evaluating and improving patient's wounds. The left elbow was evaluated and identified to have a 1-2 cm full-thickness injury with palpable bone no erythema or cellulitis not requiring any debridement at this time. Wound care and dressings have been going well for this wound. We will continue with wound care and dressings as above. The sacral wound was evaluated and identified to have a open portion stage IV as well as a necrotic eschar needed excision. Using a #10 scalpel and forceps the necrotic eschar was excised so that the entirety of the wound could be evaluated and cared for. There was significant soft slough noted in the wound bed and minor debridement was done but given the fact the patient is on Eliquis vision was made to forego complete debridement until safe time where patient can be off anticoagulation. The right issue wound was evaluated and noted to be fairly malodorous with soft tissue necrosis. There is near purulent drainage coming from this wound and some tracking was identified in the inferior aspect of the wound. Wound was completely evaluated and tracking noted. Wound was irrigated and cleansed until clean. Minor debridement of the necrotic wound edges was performed to allow for better evaluation of the underlying tissues. Following this Dakin's packing and dressing as noted above was continued. The right trochanter wound was identified and very clean with good granulation tissue identified not requiring further debridement at this time. Above wound care orders were continued as they have been slowly improving. There is significant amount of slough left and some debris that requires excision but needs to be done when patient is off Eliquis which at this time is not recommended. Goyo Osuna Aug 27, 2018 14:58
--- NOTE | 2018-08-27 15:12 | Internal Med Progress Note ---
Subjective Date of Service: Aug 27, 2018 Physician Name Daniel Jackson Attending Physician Pedro Caban MD Current Medications Medications (Trade) Dose Ordered Sig/Erlin Route PRN Reason Start Time Stop Time Status Last Admin Dose Admin Acetaminophen (Tylenol) 650 mg Q4H PRN NG Mild Pain (Pain Scale 1-3) 08/17/18 11:00 09/13/18 06:44 08/25/18 12:42 Acetaminophen (Tylenol) 650 mg Q6H PRN NG Temp > 100.5 08/17/18 11:00 09/13/18 08:59 08/19/18 00:49 Albuterol/ Ipratropium (Albuterol/ Ipratropium) 3 ml Q4H PRN HHN sob 08/26/18 12:30 08/31/18 12:29 Amiodarone HCl (Cordarone) 200 mg DAILY NG 08/21/18 09:00 09/19/18 08:59 08/27/18 09:37 Aripiprazole (Abilify) 5 mg BID ORAL 08/14/18 09:00 09/13/18 08:59 08/27/18 09:36 Chlorhexidine Gluconate (Yari-Hex 2%) 1 applic DAILY@2000 TOPIC 08/22/18 20:00 09/21/18 19:59 08/26/18 20:06 Clonidine HCl (Catapres tab) 0.2 mg Q4H PRN GT For High Blood Pressure 08/26/18 09:45 09/21/18 01:44 Dextrose/ Electrolytes 1,000 ml @ 75 mls/hr [id number] IV 08/17/18 11:30 09/16/18 11:29 08/27/18 11:36 Digoxin (Lanoxin) 0.125 mg DAILY NG 08/21/18 09:00 09/19/18 08:59 08/27/18 09:38 Gabapentin (Neurontin) 100 mg THREE TIMES A DAY NG 08/17/18 13:00 09/13/18 12:59 08/27/18 12:39 Isoniazid (Inh) 300 mg DAILY NG 08/18/18 09:00 09/13/18 08:59 08/27/18 09:37 Lactobacillus Acidophilus (Culturelle) 1 tab THREE TIMES A DAY NG 08/20/18 13:00 09/18/18 08:59 08/27/18 12:39 Magnesium Hydroxide (Mom) 30 ml BEDTIME NG 08/17/18 21:00 09/13/18 20:59 08/26/18 21:01 Meropenem 1 gm/ Sodium Chloride 55 ml @ 110 mls/hr Q8H IVPB 08/17/18 21:00 08/29/18 23:59 08/27/18 12:57 Metoprolol Tartrate (Lopressor) 50 mg Q12HR NG 08/23/18 21:00 09/22/18 20:59 08/27/18 09:39 Metronidazole (Flagyl) 500 mg Q8HR NG 08/26/18 14:00 08/30/18 13:59 08/27/18 13:57 Pyridoxine HCl (Vitamin B6) 50 mg DAILY NG 08/18/18 09:00 09/13/18 08:59 08/27/18 09:36 Sodium Hypochlorite (Dakin's Quarter Strength) 1 applic DAILY TOPIC 08/14/18 16:00 09/13/18 15:59 08/27/18 09:41 Sodium Phosphate 20 mm/Sodium Chloride 281.6667 ml @ 46.9 mls/hr ONCE IV 08/27/18 11:00 08/27/18 17:00 08/27/18 11:37 Vancomycin HCl (Firvanq) 250 mg FOUR TIMES A DAY NG 08/17/18 13:00 08/29/18 23:59 08/27/18 12:39 Vitamin B Complex/ Vit C/Folic Acid (Nephrovite) 1 tab DAILY NG 08/18/18 09:00 09/13/18 08:59 08/27/18 09:39 Zinc Sulfate (Zinc Sulfate) 220 mg DAILY NG 08/18/18 09:00 09/13/18 08:59 08/27/18 09:36 Allergies: Coded Allergies: MILK (Verified Allergy, Unknown, 02/02/18) ROS Limited/Unobtainable: Yes Subjective 68 YO M admitted with fever and leukocytosis. Now Sepsis and C. Difficile colitis/diarrhea. Cover for Int Med-Dr Caban. Objective Last Vital Signs Date Time Temp Pulse Resp B/P (MAP) Pulse Ox O2 Delivery O2 Flow Rate FiO2 08/27/18 12:00 46 08/27/18 12:00 97.2 20 132/67 (88) 97 08/27/18 09:45 Nasal Cannula 3.0 32 Laboratory Tests Test 08/27/18 06:05 White Blood Count 9.3 K/UL (4.8-10.8) Red Blood Count 2.82 M/UL (4.70-6.10) L Hemoglobin 8.6 G/DL (14.2-18.0) #L Hematocrit 27.2 % (42.0-52.0) L Mean Corpuscular Volume 97 FL (80-99) Mean Corpuscular Hemoglobin 30.4 PG (27.0-31.0) Mean Corpuscular Hemoglobin Concent 31.5 G/DL (32.0-36.0) L Red Cell Distribution Width 16.6 % (11.6-14.8) H Platelet Count 168 K/UL (150-450) Mean Platelet Volume 6.1 FL (6.5-10.1) L Neutrophils (%) (Auto) 67.6 % (45.0-75.0) Lymphocytes (%) (Auto) 21.1 % (20.0-45.0) Monocytes (%) (Auto) 8.6 % (1.0-10.0) Eosinophils (%) (Auto) 1.7 % (0.0-3.0) Basophils (%) (Auto) 1.1 % (0.0-2.0) Sodium Level 124 MMOL/L (136-145) #L Potassium Level 4.9 MMOL/L (3.5-5.1) Chloride Level 99 MMOL/L (98-107) Carbon Dioxide Level 24 MMOL/L (21-32) Anion Gap 1 mmol/L (5-15) L Blood Urea Nitrogen 10 mg/dL (7-18) Creatinine 0.5 MG/DL (0.55-1.30) L Estimat Glomerular Filtration Rate > 60 mL/min (>60) Glucose Level 425 MG/DL (74-106) #H Calcium Level 6.9 MG/DL (8.5-10.1) L Phosphorus Level 2.0 MG/DL (2.5-4.9) L Magnesium Level 1.5 MG/DL (1.8-2.4) L Intake and Output 08/26/18 08/27/18 19:00 07:00 Intake Total 1225.82 ml 1020.94 ml Output Total 500 ml 400 ml Balance 725.82 ml 620.94 ml IV Total 1225.82 ml 990.94 ml Tube Feeding 30 ml Output Urine Total 500 ml 400 ml Objective General Appearance: WD/WN, no apparent distress, lethargic EENT: PERRL/EOMI, normal ENT inspection Neck: non-tender, normal alignment, supple, normal inspection Cardiovascular: normal peripheral pulses, normal rate, regular rhythm, no gallop/murmur, no JVD Respiratory/Chest: chest wall non-tender, lungs clear, normal breath sounds, no respiratory distress, no accessory muscle use Abdomen: normal bowel sounds, non tender, soft, no organomegaly, no mass Extremities: normal range of motion, non-tender 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 Continue meropenem per ID. 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 (5) Renal failure (ARF), acute on chronic (6) Decubitus ulcer Assessment & Plan: Await debridement per surgery-see note (7) Bipolar II disorder (8) Leukocytosis (9) Clostridium difficile colitis Assessment & Plan: Continue oral vanco per ID (10) CVA (cerebral vascular accident) (11) Acute metabolic encephalopathy (12) HTN (hypertension) (13) CAD (coronary artery disease) (14) Atrial fibrillation Assessment & Plan: Continue eliquis (15) Pneumonia Assessment & Plan: Continue INH per ID-see note (16) Hypernatremia Assessment & Plan: continue D5NS + KCL (17) Hypokalemia Assessment & Plan: Cont D5NS +Kcl (18) Anemia Assessment & Plan: S/P transfusion 2 units PRBC (19) Protein-calorie malnutrition Assessment & Plan: Await PEG-see GI note Daniel Jackson MD Aug 27, 2018 15:12
[2018-08-27 16:00] VITALS: BP 134/67
[2018-08-27] MEDS ORDERED: NS 275ml ONE (16:08)
--- NOTE | 2018-08-27 19:47 | General Progress Note ---
Assessment/Plan Assessment/Plan Assessment - C Difficile colitis - failed swallow eval - Malnutrition , NGT - s/p b/l AKA - anemia - bacteremia, leukocytosis - improving Recommendations - abx per ID - taper down as possible - probiotics - elevate HOB - replace electrolytes - D/C MOM - change IV to NS based, and remove D5 - transfuse PRN - PEG next week --> Tuesday am - Poor Px Subjective Allergies: Coded Allergies: MILK (Verified Allergy, Unknown, 02/02/18) Subjective above noted NGT residuals noted last dose of Eliquis Sat PEG planned for NA low, even if corrected for glucose elevation Objective Last 24 Hour Vital Signs Date Time Temp Pulse Resp B/P (MAP) Pulse Ox O2 Delivery O2 Flow Rate FiO2 08/27/18 16:00 57 08/27/18 16:00 97.9 58 18 134/67 (89) 96 66 08/27/18 12:00 46 08/27/18 12:00 97.2 45 20 132/67 (88) 97 66 08/27/18 09:45 100 Nasal Cannula 3.0 32 08/27/18 09:45 Nasal Cannula 3.0 32 08/27/18 09:39 66 127/85 08/27/18 09:38 66 08/27/18 09:00 Nasal Cannula 2.0 08/27/18 08:00 97.3 66 19 127/85 (99) 98 66 08/27/18 08:00 65 08/27/18 04:00 54 08/27/18 04:00 97.5 59 19 104/71 (82) 100 59 08/27/18 00:00 55 08/27/18 00:00 98.1 55 20 152/73 (99) 99 50 08/26/18 21:00 53 126/70 08/26/18 21:00 Nasal Cannula 2.0 08/26/18 20:35 99 Nasal Cannula 3.0 32 08/26/18 20:35 Nasal Cannula 3.0 32 08/26/18 20:00 48 08/26/18 20:00 97.9 50 20 126/70 (88) 100 48 Intake and Output 08/26/18 08/27/18 19:00 07:00 Intake Total 1225.82 ml 1020.94 ml Output Total 500 ml 400 ml Balance 725.82 ml 620.94 ml IV Total 1225.82 ml 990.94 ml Tube Feeding 30 ml Output Urine Total 500 ml 400 ml Laboratory Tests 08/27/18 06:05: White Blood Count 9.3, Red Blood Count 2.82L, Hemoglobin 8.6#L, Hematocrit 27.2L , Mean Corpuscular Volume 97, Mean Corpuscular Hemoglobin 30.4, Mean Corpuscular Hemoglobin Concent 31.5L, Red Cell Distribution Width 16.6H, Platelet Count 168, Mean Platelet Volume 6.1L, Neutrophils (%) (Auto) 67.6, Lymphocytes (%) (Auto) 21.1, Monocytes (%) (Auto) 8.6, Eosinophils (%) (Auto) 1.7, Basophils (%) (Auto) 1.1, Sodium Level 124#L, Potassium Level 4.9, Chloride Level 99, Carbon Dioxide Level 24, Anion Gap 1L, Blood Urea Nitrogen 10 , Creatinine 0.5L, Estimat Glomerular Filtration Rate > 60, Glucose Level 425#H , Calcium Level 6.9L, Phosphorus Level 2.0L, Magnesium Level 1.5L Height (Feet): 6 Height (Inches): 0.40 Weight (Pounds): 155 Objective Elderly AA man NCAT supple CTA RRR Abd soft (+) Gina Graham MD Aug 27, 2018 19:47
[2018-08-27 20:00] VITALS: BP 151/76
[2018-08-27] MEDS: Dyna-Hex 2% Top Sol 2oz TOPIC SCH (20:36)
[2018-08-27] MEDS: Bethanechol 10mg Tab NG SCH (20:40)
[2018-08-27] MEDS ORDERED: Bethanechol 10mg Tab ORAL SCH (21:00)
[2018-08-28] VITALS: BP 121/72
[2018-08-28 04:00] VITALS: BP 108/68
[2018-08-28 04:40] LABS: BASOPHILS % (AUTO) 0.8 % (0.0-2.0); EOSINOPHILS % (AUTO) 1.5 % (0.0-3.0); HEMATOCRIT 25.4 % (42.0-52.0); HEMOGLOBIN 8.2 G/DL (14.2-18.0); LYMPHOCYTES % (AUTO) 16.2 % (20.0-45.0); MEAN CORPUSCULAR VOLUME 95 FL (80-99); MONOCYTES % (AUTO) 8.3 % (1.0-10.0); NEUTROPHILS % (AUTO) 73.2 % (45.0-75.0); PLATELET COUNT 155 K/UL (150-450); RED BLOOD COUNT 2.68 M/UL (4.70-6.10); RED CELL DISTRIBUTION WIDTH 15.9 % (11.6-14.8); WHITE BLOOD COUNT 8.2 K/UL (4.8-10.8)
[2018-08-28 04:52] LABS: INR 1.3 (0.9-1.1)
[2018-08-28 05:21] LABS: ANION GAP 6 mmol/L (5-15); BLOOD UREA NITROGEN 7 mg/dL (7-18); CALCIUM 6.6 MG/DL (8.5-10.1); CARBON DIOXIDE 24 MMOL/L (21-32); CHLORIDE 108 MMOL/L (98-107); CREATININE 0.4 MG/DL (0.55-1.30); PHOSPHORUS 2.3 MG/DL (2.5-4.9); SODIUM 138 MMOL/L (136-145)
[2018-08-28] MEDS: Meropenem 1 GM in NS 55 ML IVPB SCH ×3 (05:23→21:49)
[2018-08-28] MEDS: metroNIDAZOLE 500mg tab NG SCH ×3 (05:23→21:51)
[2018-08-28 05:27] LABS: POTASSIUM 2.4 MMOL/L (3.5-5.1)
[2018-08-28 08:00] VITALS: BP 129/79
[2018-08-28] MEDS: Amiodarone 200mg tab NG SCH (08:32)
[2018-08-28] MEDS: Pyridoxine 50mg tab NG SCH (08:33)
[2018-08-28] MEDS: Digoxin 0.125mg tab NG SCH (08:34)
[2018-08-28] MEDS: Isoniazid 300mg tab NG SCH (08:35)
[2018-08-28] MEDS: Bethanechol 10mg Tab NG SCH ×4 (08:35→21:52)
[2018-08-28] MEDS: Lactobacillus-GG tablet NG SCH ×3 (08:36→18:30)
[2018-08-28] MEDS: Zinc Sulfate 220mg cap NG SCH (08:36)
[2018-08-28] MEDS: Nephrovite tab (Rena-Vite) NG SCH (08:37)
[2018-08-28] MEDS: Metoprolol Tartrate 50mg tab NG SCH ×2 (08:37→21:52)
[2018-08-28] MEDS: NS w/KCl 40mEq 1,000 ML IV SCH ×2 (08:53→21:49)
[2018-08-28] MEDS: Vancomycin oral 125mg/2.5ml NG SCH ×4 (09:07→21:51)
[2018-08-28 12:00] VITALS: BP 103/64
--- NOTE | 2018-08-28 12:09 | Diagnostic Imaging Report ---
Indication: Shortness of breath Technique: One view of the chest Comparison: 08/24/2018 Findings: Stable satisfactory positions of nasogastric tube and right arm PICC. Large left pleural effusion persists. There is decreased consolidation at the right lung base. There is some residual perihilar atelectasis. Impression: Unchanged large left pleural effusion Improved aeration of the right lung base Other stable findings as described, over 4 days
--- NOTE | 2018-08-28 13:21 | Infectious Diseases Prog Note ---
Assessment/Plan Assessment/Plan Sepsis-2ry to bacteremia (likley from GI translocation ) -CT abd/p" Colonic mural thickening consistent with some form of colitis. No pneumatosis or extraluminal air. C Diff -Cdif toxin a/b + -Bcx 08/21 GNR, 08/21 ESBL Proteus mirabilis (S Ertapenem, Zosyn), 08/21 Group C strep ; 08/15 Bcx 07/24 Prevotella L . (R Clinda, Unasyn; S flagyl) ;08/17 Bcx 07/24 EUBACTERIUM LENTUM 08/21 Bcx Neg -u/a no pyuria -CXR: Suspect a small left pleural effusion. Mild basal atelectasis -influenza sc neg Fever, SP Leukocytosis , SP -08/28 CXR: There is decreased consolidation at the right lung base. There is some residual perihilar atelectasis. Hx of lung cavitary lesion/ PNA- suspect likely to aspiration; lower suspicion for TB and/or fungal etiologies -06/08 CT chest: * Interval resolution of the cavitary component associated with the previously described anterior right upper lobe opacity. It is slightly decreased in size and more nodular in appearance on today's exam. Additional patchy opacities in the posterior right upper lobe are also slightly decreased in size and appear more nodular (previously were groundglass). Findings likely related to evolving infectious or inflammatory lesions however continued follow-up is recommended to assure resolution/exclude the possibility of neoplastic etiologies. -CT c/a/p: 10 mm opacity in the peripheral anterolateral right upper lobe with small central cavitation. Patchy groundglass opacity in the posterior right upper lobe. Suspect that these represent inflammatory/infectious lesions, but neoplastic etiology of either is certainly possible. Large left and moderate right pleural effusions. Resultant compressive atelectasis of portions of the lower lobes. 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 Hypertension. Multiple decubiti ulcers (elbow, sacral) -not infected Bipolar disorder. Coronary artery disease. VRE and MRSA colonized Plan: -Continue Meropenem #12 (abx d #) given ESBL bacteremia -Continue PO Vancomycin #14/14-21 for Cdiff and Flagyl #6/7-10 -if diarrhea not improving, may need to switch to Fidaxomicin -Cont INH for latent TB -08/17 SP Zosyn #3, Daptomycin #3 -08/15 SP Tamiflu #2, Ceftriaxone #2 -08/14 SP Cefepime and LEvaquin x1 -Monitor CBC/CMP, temperatures -wound care -aspiration precautions -Sx f/u Subjective Allergies: Coded Allergies: MILK (Verified Allergy, Unknown, 02/02/18) Subjective afebrile repeat bcx NTD no leukocytosis stool output improving Objective Vital Signs Last 24 Hour Vital Signs Date Time Temp Pulse Resp B/P (MAP) Pulse Ox O2 Delivery O2 Flow Rate FiO2 08/28/18 12:00 97.3 58 18 103/64 (77) 94 08/28/18 09:55 Nasal Cannula 2.0 28 08/28/18 09:55 97 Nasal Cannula 2.0 28 08/28/18 09:00 Nasal Cannula 2.0 08/28/18 08:37 79 129/79 08/28/18 08:34 79 08/28/18 08:00 97.7 79 18 129/79 (96) 94 08/28/18 07:03 75 08/28/18 04:00 66 08/28/18 04:00 97.1 66 19 108/68 (81) 99 08/28/18 00:00 98.7 57 20 121/72 (88) 99 08/28/18 00:00 57 08/28/18 00:00 98.7 57 20 121/72 (88) 100 08/27/18 21:40 Nasal Cannula 3.0 32 08/27/18 21:40 97 Nasal Cannula 3.0 32 08/27/18 21:00 Nasal Cannula 2.0 08/27/18 21:00 50 151/75 08/27/18 20:00 52 08/27/18 20:00 98.4 52 19 151/76 (101) 99 08/27/18 16:00 57 08/27/18 16:00 97.9 58 18 134/67 (89) 96 66 Height (Feet): 6 Height (Inches): 0.40 Weight (Pounds): 155 Objective General appearance: alert, cooperative, no distress, appears stated age Head: Normocephalic, without obvious abnormality, atraumatic Eyes: conjunctivae/corneas clear. PERRL, EOM's intact. Fundi benign Throat: Lips, mucosa, and tongue normal. Teeth and gums normal Neck: supple, symmetrical, trachea midline, no adenopathy, thyroid: not enlarged, symmetric, no tenderness/mass/nodules, no carotid bruit and no JVD Lungs: clear to auscultation bilaterally Heart: regular rate and rhythm, S1, S2 normal, no murmur, click, rub or gallop Abdomen: soft, non-tender. Bowel sounds normal. No masses, no organomegaly Extremities: extremities normal, atraumatic, no cyanosis or edema/ s/p bilateral aka Pulses: 2+ and symmetric Skin: Skin color, texture, turgor normal. No rashes or lesions. multiple large decubitus ulcers. Neurologic: Grossly normal Laboratory Tests Test 08/28/18 03:40 White Blood Count 8.2 K/UL (4.8-10.8) Red Blood Count 2.68 M/UL (4.70-6.10) L Hemoglobin 8.2 G/DL (14.2-18.0) L Hematocrit 25.4 % (42.0-52.0) L Mean Corpuscular Volume 95 FL (80-99) Mean Corpuscular Hemoglobin 30.7 PG (27.0-31.0) Mean Corpuscular Hemoglobin Concent 32.4 G/DL (32.0-36.0) Red Cell Distribution Width 15.9 % (11.6-14.8) H Platelet Count 155 K/UL (150-450) Mean Platelet Volume 6.1 FL (6.5-10.1) L Neutrophils (%) (Auto) 73.2 % (45.0-75.0) Lymphocytes (%) (Auto) 16.2 % (20.0-45.0) L Monocytes (%) (Auto) 8.3 % (1.0-10.0) Eosinophils (%) (Auto) 1.5 % (0.0-3.0) Basophils (%) (Auto) 0.8 % (0.0-2.0) Prothrombin Time 13.5 SEC (9.30-11.50) H Prothromb Time International Ratio 1.3 (0.9-1.1) H Activated Partial Thromboplast Time 41 SEC (23-33) H Sodium Level 138 MMOL/L (136-145) # Potassium Level 2.4 MMOL/L (3.5-5.1) #*L Chloride Level 108 MMOL/L (98-107) H Carbon Dioxide Level 24 MMOL/L (21-32) Anion Gap 6 mmol/L (5-15) Blood Urea Nitrogen 7 mg/dL (7-18) Creatinine 0.4 MG/DL (0.55-1.30) L Estimat Glomerular Filtration Rate > 60 mL/min (>60) Glucose Level 99 MG/DL (74-106) # Calcium Level 6.6 MG/DL (8.5-10.1) L Phosphorus Level 2.3 MG/DL (2.5-4.9) L Magnesium Level 1.7 MG/DL (1.8-2.4) L Current Medications Medications (Trade) Dose Ordered Sig/Erlin Route PRN Reason Start Time Stop Time Status Last Admin Dose Admin Acetaminophen (Tylenol) 650 mg Q4H PRN NG Mild Pain (Pain Scale 1-3) 08/17/18 11:00 09/13/18 06:44 08/25/18 12:42 Acetaminophen (Tylenol) 650 mg Q6H PRN NG Temp > 100.5 08/17/18 11:00 09/13/18 08:59 08/19/18 00:49 Albuterol/ Ipratropium (Albuterol/ Ipratropium) 3 ml Q4H PRN HHN sob 08/26/18 12:30 08/31/18 12:29 Amiodarone HCl (Cordarone) 200 mg DAILY NG 08/21/18 09:00 09/19/18 08:59 08/28/18 08:32 Aripiprazole (Abilify) 5 mg BID ORAL 08/14/18 09:00 09/13/18 08:59 08/28/18 08:36 Bethanechol Chloride (Urecholine) 10 mg FOUR TIMES A DAY NG 08/27/18 21:00 09/26/18 20:59 08/28/18 08:35 Chlorhexidine Gluconate (Yari-Hex 2%) 1 applic DAILY@2000 TOPIC 08/22/18 20:00 09/21/18 19:59 08/27/18 20:36 Clonidine HCl (Catapres tab) 0.2 mg Q4H PRN GT For High Blood Pressure 08/26/18 09:45 09/21/18 01:44 Digoxin (Lanoxin) 0.125 mg DAILY NG 08/21/18 09:00 09/19/18 08:59 08/28/18 08:34 Gabapentin (Neurontin) 100 mg THREE TIMES A DAY NG 08/17/18 13:00 09/13/18 12:59 08/28/18 08:38 Isoniazid (Inh) 300 mg DAILY NG 08/18/18 09:00 09/13/18 08:59 08/28/18 08:35 Lactobacillus Acidophilus (Culturelle) 1 tab THREE TIMES A DAY NG 08/20/18 13:00 09/18/18 08:59 08/28/18 08:36 Meropenem 1 gm/ Sodium Chloride 55 ml @ 110 mls/hr Q8H IVPB 08/17/18 21:00 08/29/18 23:59 08/28/18 05:23 Metoprolol Tartrate (Lopressor) 50 mg Q12HR NG 08/28/18 09:00 09/22/18 20:59 08/28/18 08:37 Metronidazole (Flagyl) 500 mg Q8HR NG 08/26/18 14:00 08/30/18 13:59 08/28/18 05:23 Pyridoxine HCl (Vitamin B6) 50 mg DAILY NG 08/18/18 09:00 09/13/18 08:59 08/28/18 08:33 Sodium Hypochlorite (Dakin's Quarter Strength) 1 applic DAILY TOPIC 08/14/18 16:00 09/13/18 15:59 08/27/18 09:41 Sodium Chloride 1,000 ml @ 75 mls/hr [id number] IV 08/28/18 07:30 09/27/18 07:29 3/11/19 08:53 Vancomycin HCl (Firvanq) 250 mg FOUR TIMES A DAY NG 08/17/18 13:00 08/29/18 23:59 08/28/18 09:07 Vitamin B Complex/ Vit C/Folic Acid (Nephrovite) 1 tab DAILY NG 08/18/18 09:00 09/13/18 08:59 08/28/18 08:37 Zinc Sulfate (Zinc Sulfate) 220 mg DAILY NG 08/18/18 09:00 09/13/18 08:59 08/28/18 08:36 Alma Elkins M.D. Aug 28, 2018 13:21
--- NOTE | 2018-08-28 14:02 | Pulmonology Progress Note ---
Assessment/Plan Problems: (1) Clostridium difficile colitis (2) Acute metabolic encephalopathy (3) Sepsis (4) Decubitus skin ulcer (5) UTI (urinary tract infection) (6) Anemia (7) CVA (cerebral vascular accident) Assessment/Plan unchanged mental status, failed swallow study telemetry records reviewed, still tachy with PAC's and PVC's K and phos supplement again today iv abx check electrolytes continue current meds. dvt prophylaxis. PEG scheduled for tomorrow, I Can't agree with putting a feeding tube in this patient. But respect family and other physicians opinion. Subjective ROS Limited/Unobtainable: No Constitutional: Reports: no symptoms Respiratory: Reports: no symptoms Allergies: Coded Allergies: MILK (Verified Allergy, Unknown, 02/02/18) Objective Last 24 Hour Vital Signs Date Time Temp Pulse Resp B/P (MAP) Pulse Ox O2 Delivery O2 Flow Rate FiO2 08/28/18 12:00 97.3 58 18 103/64 (77) 94 08/28/18 09:55 Nasal Cannula 2.0 28 08/28/18 09:55 97 Nasal Cannula 2.0 28 08/28/18 09:00 Nasal Cannula 2.0 08/28/18 08:37 79 129/79 08/28/18 08:34 79 08/28/18 08:00 97.7 79 18 129/79 (96) 94 08/28/18 07:03 75 08/28/18 04:00 66 08/28/18 04:00 97.1 66 19 108/68 (81) 99 08/28/18 00:00 98.7 57 20 121/72 (88) 99 08/28/18 00:00 57 08/28/18 00:00 98.7 57 20 121/72 (88) 100 08/27/18 21:40 Nasal Cannula 3.0 32 08/27/18 21:40 97 Nasal Cannula 3.0 32 08/27/18 21:00 Nasal Cannula 2.0 08/27/18 21:00 50 151/75 08/27/18 20:00 52 08/27/18 20:00 98.4 52 19 151/76 (101) 99 08/27/18 16:00 57 08/27/18 16:00 97.9 58 18 134/67 (89) 96 66 Intake and Output 08/27/18 08/28/18 19:00 07:00 Intake Total 1501.6667 ml 435 ml Output Total 1800 ml Balance -298.3333 ml 435 ml Free Water 100 ml IV Total 1501.6667 ml 75 ml Tube Feeding 260 ml Output Urine Total 350 ml Stool Total 1450 ml General Appearance: cachetic HEENT: normocephalic, atraumatic, PERRL Respiratory/Chest: chest wall non-tender, no accessory muscle use Cardiovascular: normal peripheral pulses, normal rate Abdomen: normal bowel sounds, soft, non tender, no scars 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: 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 II-XII grossly normal Laboratory Tests 08/28/18 03:40: White Blood Count 8.2, Red Blood Count 2.68L, Hemoglobin 8.2L, Hematocrit 25.4L , Mean Corpuscular Volume 95, Mean Corpuscular Hemoglobin 30.7, Mean Corpuscular Hemoglobin Concent 32.4, Red Cell Distribution Width 15.9H, Platelet Count 155, Mean Platelet Volume 6.1L, Neutrophils (%) (Auto) 73.2, Lymphocytes (%) (Auto) 16.2L, Monocytes (%) (Auto) 8.3, Eosinophils (%) (Auto) 1.5, Basophils (%) (Auto) 0.8, Prothrombin Time 13.5H, Prothromb Time International Ratio 1.3H, Activated Partial Thromboplast Time 41H, Sodium Level 138#, Potassium Level 2.4#*L, Chloride Level 108H, Carbon Dioxide Level 24, Anion Gap 6, Blood Urea Nitrogen 7, Creatinine 0.4L, Estimat Glomerular Filtration Rate > 60, Glucose Level 99#, Calcium Level 6.6L, Phosphorus Level 2.3L, Magnesium Level 1.7L Current Medications Medications (Trade) Dose Ordered Sig/Erlin Route PRN Reason Start Time Stop Time Status Last Admin Dose Admin Acetaminophen (Tylenol) 650 mg Q4H PRN NG Mild Pain (Pain Scale 1-3) 08/17/18 11:00 09/13/18 06:44 08/25/18 12:42 Acetaminophen (Tylenol) 650 mg Q6H PRN NG Temp > 100.5 08/17/18 11:00 09/13/18 08:59 08/19/18 00:49 Albuterol/ Ipratropium (Albuterol/ Ipratropium) 3 ml Q4H PRN HHN sob 08/26/18 12:30 08/31/18 12:29 Amiodarone HCl (Cordarone) 200 mg DAILY NG 08/21/18 09:00 09/19/18 08:59 08/28/18 08:32 Aripiprazole (Abilify) 5 mg BID ORAL 08/14/18 09:00 09/13/18 08:59 08/28/18 08:36 Bethanechol Chloride (Urecholine) 10 mg FOUR TIMES A DAY NG 08/27/18 21:00 09/26/18 20:59 08/28/18 08:35 Chlorhexidine Gluconate (Yari-Hex 2%) 1 applic DAILY@2000 TOPIC 08/22/18 20:00 09/21/18 19:59 08/27/18 20:36 Clonidine HCl (Catapres tab) 0.2 mg Q4H PRN GT For High Blood Pressure 08/26/18 09:45 09/21/18 01:44 Digoxin (Lanoxin) 0.125 mg DAILY NG 08/21/18 09:00 09/19/18 08:59 08/28/18 08:34 Gabapentin (Neurontin) 100 mg THREE TIMES A DAY NG 08/17/18 13:00 09/13/18 12:59 08/28/18 08:38 Isoniazid (Inh) 300 mg DAILY NG 08/18/18 09:00 09/13/18 08:59 08/28/18 08:35 Lactobacillus Acidophilus (Culturelle) 1 tab THREE TIMES A DAY NG 08/20/18 13:00 09/18/18 08:59 08/28/18 08:36 Meropenem 1 gm/ Sodium Chloride 55 ml @ 110 mls/hr Q8H IVPB 08/17/18 21:00 08/29/18 23:59 08/28/18 05:23 Metoprolol Tartrate (Lopressor) 50 mg Q12HR NG 08/28/18 09:00 09/22/18 20:59 08/28/18 08:37 Metronidazole (Flagyl) 500 mg Q8HR NG 08/26/18 14:00 08/30/18 13:59 08/28/18 05:23 Pyridoxine HCl (Vitamin B6) 50 mg DAILY NG 08/18/18 09:00 09/13/18 08:59 08/28/18 08:33 Sodium Hypochlorite (Dakin's Quarter Strength) 1 applic DAILY TOPIC 08/14/18 16:00 09/13/18 15:59 08/27/18 09:41 Sodium Chloride 1,000 ml @ 75 mls/hr [id number] IV 08/28/18 07:30 09/27/18 07:29 08/28/18 08:53 Vancomycin HCl (Firvanq) 250 mg FOUR TIMES A DAY NG 08/17/18 13:00 08/29/18 23:59 08/28/18 09:07 Vitamin B Complex/ Vit C/Folic Acid (Nephrovite) 1 tab DAILY NG 08/18/18 09:00 09/13/18 08:59 08/28/18 08:37 Zinc Sulfate (Zinc Sulfate) 220 mg DAILY NG 08/18/18 09:00 09/13/18 08:59 08/28/18 08:36 Minerva Montesinos MD Aug 28, 2018 14:02
[2018-08-28] MEDS: Dakin's 0.125% Soln (Quarter Strength) 16oz TOPIC SCH (15:10)
--- NOTE | 2018-08-28 15:46 | Cardiac Electrophysiology PN ---
Assessment/Plan Assessment/Plan 1. Atrial fibrillation with rapid ventricular response. In SR on Eliquis 2.5 mg bid, metoprolol 50 mg bid, digoxin 0.125 and amiodarone 200 2. Fever and sepsis with Positive blood culture. IV antibiotics per Dr. Parker. 3. Dementia and psychosis. 4. 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 5. Sacral decubitus.S/P debridement 6. C. Diff colitis.On Flagyl 7. Hypotension. Resolved. 8. Hypokalemia, Being replaced 9. Anemia, S/P PRBC. EGD tomorrow 10. Dysphagia. PEG tomorrow MONSERRAT RN Subjective Subjective In isolation in NAD. Scheduled for PEG tomorrow by Dr Petersen Objective Last 24 Hour Vital Signs Date Time Temp Pulse Resp B/P (MAP) Pulse Ox O2 Delivery O2 Flow Rate FiO2 08/28/18 12:00 97.3 58 18 103/64 (77) 94 08/28/18 09:55 Nasal Cannula 2.0 28 08/28/18 09:55 97 Nasal Cannula 2.0 28 08/28/18 09:00 Nasal Cannula 2.0 08/28/18 08:37 79 129/79 08/28/18 08:34 79 08/28/18 08:00 97.7 79 18 129/79 (96) 94 08/28/18 07:03 75 08/28/18 04:00 66 08/28/18 04:00 97.1 66 19 108/68 (81) 99 08/28/18 00:00 98.7 57 20 121/72 (88) 99 08/28/18 00:00 57 08/28/18 00:00 98.7 57 20 121/72 (88) 100 08/27/18 21:40 Nasal Cannula 3.0 32 08/27/18 21:40 97 Nasal Cannula 3.0 32 08/27/18 21:00 Nasal Cannula 2.0 08/27/18 21:00 50 151/75 08/27/18 20:00 52 08/27/18 20:00 98.4 52 19 151/76 (101) 99 08/27/18 16:00 57 08/27/18 16:00 97.9 58 18 134/67 (89) 96 66 Intake and Output 08/27/18 08/28/18 19:00 07:00 Intake Total 1501.6667 ml 435 ml Output Total 1800 ml Balance -298.3333 ml 435 ml Free Water 100 ml IV Total 1501.6667 ml 75 ml Tube Feeding 260 ml Output Urine Total 350 ml Stool Total 1450 ml Laboratory Tests Test 08/28/18 03:40 White Blood Count 8.2 K/UL (4.8-10.8) Red Blood Count 2.68 M/UL (4.70-6.10) L Hemoglobin 8.2 G/DL (14.2-18.0) L Hematocrit 25.4 % (42.0-52.0) L Mean Corpuscular Volume 95 FL (80-99) Mean Corpuscular Hemoglobin 30.7 PG (27.0-31.0) Mean Corpuscular Hemoglobin Concent 32.4 G/DL (32.0-36.0) Red Cell Distribution Width 15.9 % (11.6-14.8) H Platelet Count 155 K/UL (150-450) Mean Platelet Volume 6.1 FL (6.5-10.1) L Neutrophils (%) (Auto) 73.2 % (45.0-75.0) Lymphocytes (%) (Auto) 16.2 % (20.0-45.0) L Monocytes (%) (Auto) 8.3 % (1.0-10.0) Eosinophils (%) (Auto) 1.5 % (0.0-3.0) Basophils (%) (Auto) 0.8 % (0.0-2.0) Prothrombin Time 13.5 SEC (9.30-11.50) H Prothromb Time International Ratio 1.3 (0.9-1.1) H Activated Partial Thromboplast Time 41 SEC (23-33) H Sodium Level 138 MMOL/L (136-145) # Potassium Level 2.4 MMOL/L (3.5-5.1) #*L Chloride Level 108 MMOL/L (98-107) H Carbon Dioxide Level 24 MMOL/L (21-32) Anion Gap 6 mmol/L (5-15) Blood Urea Nitrogen 7 mg/dL (7-18) Creatinine 0.4 MG/DL (0.55-1.30) L Estimat Glomerular Filtration Rate > 60 mL/min (>60) Glucose Level 99 MG/DL (74-106) # Calcium Level 6.6 MG/DL (8.5-10.1) L Phosphorus Level 2.3 MG/DL (2.5-4.9) L Magnesium Level 1.7 MG/DL (1.8-2.4) L Objective HEAD AND NECK: no JVD. NG tube. LUNGS: Have coarse rhonchi. CARDIOVASCULAR: Irregular S1 and S2 with no gallop or murmur. ABDOMEN: Soft. EXTREMITIES: Bilateral above-knee amputation. Amandeep Arora MD Aug 28, 2018 15:46
[2018-08-28 16:00] VITALS: BP 99/62
--- NOTE | 2018-08-28 16:12 | Surgery Progress Note ---
Surgery Progress Note Subjective Additional Comments no acute events. planned for PEG tomorrow per report. exam unchanged. labs noted. needs K replacement Objective Last 24 Hour Vital Signs Date Time Temp Pulse Resp B/P (MAP) Pulse Ox O2 Delivery O2 Flow Rate FiO2 08/28/18 12:00 97.3 58 18 103/64 (77) 94 08/28/18 09:55 Nasal Cannula 2.0 28 08/28/18 09:55 97 Nasal Cannula 2.0 28 08/28/18 09:00 Nasal Cannula 2.0 08/28/18 08:37 79 129/79 08/28/18 08:34 79 08/28/18 08:00 97.7 79 18 129/79 (96) 94 08/28/18 07:03 75 08/28/18 04:00 66 08/28/18 04:00 97.1 66 19 108/68 (81) 99 08/28/18 00:00 98.7 57 20 121/72 (88) 99 08/28/18 00:00 57 08/28/18 00:00 98.7 57 20 121/72 (88) 100 08/27/18 21:40 Nasal Cannula 3.0 32 08/27/18 21:40 97 Nasal Cannula 3.0 32 08/27/18 21:00 Nasal Cannula 2.0 08/27/18 21:00 50 151/75 08/27/18 20:00 52 08/27/18 20:00 98.4 52 19 151/76 (101) 99 I&O Intake and Output 08/27/18 08/28/18 19:00 07:00 Intake Total 1501.6667 ml 435 ml Output Total 1800 ml Balance -298.3333 ml 435 ml Free Water 100 ml IV Total 1501.6667 ml 75 ml Tube Feeding 260 ml Output Urine Total 350 ml Stool Total 1450 ml Dressing: saturated Wound: other Drains: other Cardiovascular: RSR Respiratory: clear, decreased breath sounds Abdomen: soft, present bowel sounds, non-distended Extremities: other Laboratory Tests Test 08/28/18 03:40 White Blood Count 8.2 K/UL (4.8-10.8) Red Blood Count 2.68 M/UL (4.70-6.10) L Hemoglobin 8.2 G/DL (14.2-18.0) L Hematocrit 25.4 % (42.0-52.0) L Mean Corpuscular Volume 95 FL (80-99) Mean Corpuscular Hemoglobin 30.7 PG (27.0-31.0) Mean Corpuscular Hemoglobin Concent 32.4 G/DL (32.0-36.0) Red Cell Distribution Width 15.9 % (11.6-14.8) H Platelet Count 155 K/UL (150-450) Mean Platelet Volume 6.1 FL (6.5-10.1) L Neutrophils (%) (Auto) 73.2 % (45.0-75.0) Lymphocytes (%) (Auto) 16.2 % (20.0-45.0) L Monocytes (%) (Auto) 8.3 % (1.0-10.0) Eosinophils (%) (Auto) 1.5 % (0.0-3.0) Basophils (%) (Auto) 0.8 % (0.0-2.0) Prothrombin Time 13.5 SEC (9.30-11.50) H Prothromb Time International Ratio 1.3 (0.9-1.1) H Activated Partial Thromboplast Time 41 SEC (23-33) H Sodium Level 138 MMOL/L (136-145) # Potassium Level 2.4 MMOL/L (3.5-5.1) #*L Chloride Level 108 MMOL/L (98-107) H Carbon Dioxide Level 24 MMOL/L (21-32) Anion Gap 6 mmol/L (5-15) Blood Urea Nitrogen 7 mg/dL (7-18) Creatinine 0.4 MG/DL (0.55-1.30) L Estimat Glomerular Filtration Rate > 60 mL/min (>60) Glucose Level 99 MG/DL (74-106) # Calcium Level 6.6 MG/DL (8.5-10.1) L Phosphorus Level 2.3 MG/DL (2.5-4.9) L Magnesium Level 1.7 MG/DL (1.8-2.4) L Plan Problems: (1) Sepsis Assessment & Plan: IV abx trend labs will monitor wounds spoke with daughter. consent obtained. s/p wound cleaning/debridement recommend PEG pending PEG tomorrow per report needs electrolytes replaced (2) Decubitus skin ulcer Assessment & Plan: Pt presented on admission with multiple full thickness pressure injuries. Full thickness pressure injury to L elbow.Base of wound wound with 25% fibrinous slough,75% pink granulation noted.(+) maceration along borders. erythema without elevation in skin temp periwound(L)1.5cm x (W)1.8cm x(D)0.3cm. Full thickness pressure injury R trochanter .Base of wound with pink granulation.Edges adherent to base of wound .No odor or exudate noted.Darker skin tone without induration periwound. (L)4.5cm x (W)6.3cm x (D) 3cm.Undermining 12-3 by 3cm @12o'clock. Full thickness pressure injury to R ischium .Wound is malodorous.90% soft necrosis,10% pink noted at base of wound ,(+) epibole along edges .Periwound darker in skin tone and is indurated.(L)8.4cm x (W)4.3cm (D)2.5cm .Tunneling at 1o'clock by 3.6cm ,tunneling @5o'clock by 6.3cm. Full thickness sacral pressure injury with 80% soft necrosis ,20% pink granulation .Wound is malodorous with small amt brown exudate (L)8.5cm x (W)5cm x (D)2.5cm ,undermining 8-5 by 4.7cm @1o'clock. wounds with gross drainage poor nutritional status. prognosis concerning Tx.Plan: Cleanse R trochanter with Dakin's 0.125% candelaria. Loosely pack with Dakin's soaked kerlix .Cover with Optifoam drsg TID and prn. Cleanse R Ischial wound with Dakin's 0.125% candelaria.Loosely pack with Dakin's soaked kerlix. Cavilon Skin Barrier periwound. Cover with Optifoam drsg TID and prn. Cleanse Sacral wound with dakin's 0.125% candelaria.Loosely pack with Dakin's soaked kerlix.Cavilon Skin Barrier periwound.Cover with Optifoam drsg TID and prn. Cleanse L elbow with Dakin's 0.125% candelaria. Apply Dakin's moist 2x2 gauze. Cover with Optifoam drsg TID and prn. Quartet Air fluidized mattress. Reposition L side to back at least every 2hours or as tolerated. 3/6- Patient has been improving with repeat blood cultures were without growth thus far. Spoke with patient's daughter yesterday explained that we will proceed with debridement which she and the family is consented to. Patient still unable to consent given his current medical condition and mental status. Patient was made comfortable at the bedside with the assistance of the wound care team and nursing staff we began evaluating and improving patient's wounds. The left elbow was evaluated and identified to have a 1-2 cm full-thickness injury with palpable bone no erythema or cellulitis not requiring any debridement at this time. Wound care and dressings have been going well for this wound. We will continue with wound care and dressings as above. The sacral wound was evaluated and identified to have a open portion stage IV as well as a necrotic eschar needed excision. Using a #10 scalpel and forceps the necrotic eschar was excised so that the entirety of the wound could be evaluated and cared for. There was significant soft slough noted in the wound bed and minor debridement was done but given the fact the patient is on Eliquis vision was made to forego complete debridement until safe time where patient can be off anticoagulation. The right issue wound was evaluated and noted to be fairly malodorous with soft tissue necrosis. There is near purulent drainage coming from this wound and some tracking was identified in the inferior aspect of the wound. Wound was completely evaluated and tracking noted. Wound was irrigated and cleansed until clean. Minor debridement of the necrotic wound edges was performed to allow for better evaluation of the underlying tissues. Following this Dakin's packing and dressing as noted above was continued. The right trochanter wound was identified and very clean with good granulation tissue identified not requiring further debridement at this time. Above wound care orders were continued as they have been slowly improving. There is significant amount of slough left and some debris that requires excision but needs to be done when patient is off Eliquis which at this time is not recommended. Goyo Osuna Aug 28, 2018 16:12
--- NOTE | 2018-08-28 19:33 | Internal Med Progress Note ---
Subjective Date of Service: Aug 28, 2018 Physician Name Daniel Jackson Attending Physician Pedro Caban MD Current Medications Medications (Trade) Dose Ordered Sig/Erlin Route PRN Reason Start Time Stop Time Status Last Admin Dose Admin Acetaminophen (Tylenol) 650 mg Q4H PRN NG Mild Pain (Pain Scale 1-3) 08/17/18 11:00 09/13/18 06:44 08/25/18 12:42 Acetaminophen (Tylenol) 650 mg Q6H PRN NG Temp > 100.5 08/17/18 11:00 09/13/18 08:59 08/19/18 00:49 Albuterol/ Ipratropium (Albuterol/ Ipratropium) 3 ml Q4H PRN HHN sob 08/26/18 12:30 08/31/18 12:29 Amiodarone HCl (Cordarone) 200 mg DAILY NG 08/21/18 09:00 09/19/18 08:59 08/28/18 08:32 Aripiprazole (Abilify) 5 mg BID ORAL 08/14/18 09:00 09/13/18 08:59 08/28/18 18:30 Bethanechol Chloride (Urecholine) 10 mg FOUR TIMES A DAY NG 08/27/18 21:00 09/26/18 20:59 08/28/18 18:30 Chlorhexidine Gluconate (Yari-Hex 2%) 1 applic DAILY@2000 TOPIC 08/22/18 20:00 09/21/18 19:59 08/27/18 20:36 Clonidine HCl (Catapres tab) 0.2 mg Q4H PRN GT For High Blood Pressure 08/26/18 09:45 09/21/18 01:44 Digoxin (Lanoxin) 0.125 mg DAILY NG 08/21/18 09:00 09/19/18 08:59 08/28/18 08:34 Gabapentin (Neurontin) 100 mg THREE TIMES A DAY NG 08/17/18 13:00 09/13/18 12:59 08/28/18 18:31 Isoniazid (Inh) 300 mg DAILY NG 08/18/18 09:00 09/13/18 08:59 08/28/18 08:35 Lactobacillus Acidophilus (Culturelle) 1 tab THREE TIMES A DAY NG 08/20/18 13:00 09/18/18 08:59 08/28/18 18:30 Meropenem 1 gm/ Sodium Chloride 55 ml @ 110 mls/hr Q8H IVPB 08/17/18 21:00 08/29/18 23:59 08/28/18 15:20 Metoprolol Tartrate (Lopressor) 50 mg Q12HR NG 08/28/18 09:00 09/22/18 20:59 08/28/18 08:37 Metronidazole (Flagyl) 500 mg Q8HR NG 08/26/18 14:00 08/30/18 13:59 08/28/18 15:24 Pyridoxine HCl (Vitamin B6) 50 mg DAILY NG 08/18/18 09:00 09/13/18 08:59 08/28/18 08:33 Sodium Hypochlorite (Dakin's Quarter Strength) 1 applic DAILY TOPIC 08/14/18 16:00 09/13/18 15:59 08/28/18 15:10 Sodium Chloride 1,000 ml @ 75 mls/hr [id number] IV 08/28/18 07:30 09/27/18 07:29 08/28/18 08:53 Vancomycin HCl (Firvanq) 250 mg FOUR TIMES A DAY NG 08/17/18 13:00 08/29/18 23:59 08/28/18 18:31 Vitamin B Complex/ Vit C/Folic Acid (Nephrovite) 1 tab DAILY NG 08/18/18 09:00 09/13/18 08:59 08/28/18 08:37 Zinc Sulfate (Zinc Sulfate) 220 mg DAILY NG 08/18/18 09:00 09/13/18 08:59 08/28/18 08:36 Allergies: Coded Allergies: MILK (Verified Allergy, Unknown, 02/02/18) ROS Limited/Unobtainable: Yes Subjective 68 YO M admitted with fever and leukocytosis. Now Sepsis and C. Difficile colitis/diarrhea. Cover for Int Med-Dr Caban. Await PEG 08/29/18 Objective Last Vital Signs Date Time Temp Pulse Resp B/P (MAP) Pulse Ox O2 Delivery O2 Flow Rate FiO2 08/28/18 16:00 97.5 66 19 99/62 (74) 99 08/28/18 09:55 Nasal Cannula 2.0 28 Laboratory Tests Test 3/11/19 03:40 White Blood Count 8.2 K/UL (4.8-10.8) Red Blood Count 2.68 M/UL (4.70-6.10) L Hemoglobin 8.2 G/DL (14.2-18.0) L Hematocrit 25.4 % (42.0-52.0) L Mean Corpuscular Volume 95 FL (80-99) Mean Corpuscular Hemoglobin 30.7 PG (27.0-31.0) Mean Corpuscular Hemoglobin Concent 32.4 G/DL (32.0-36.0) Red Cell Distribution Width 15.9 % (11.6-14.8) H Platelet Count 155 K/UL (150-450) Mean Platelet Volume 6.1 FL (6.5-10.1) L Neutrophils (%) (Auto) 73.2 % (45.0-75.0) Lymphocytes (%) (Auto) 16.2 % (20.0-45.0) L Monocytes (%) (Auto) 8.3 % (1.0-10.0) Eosinophils (%) (Auto) 1.5 % (0.0-3.0) Basophils (%) (Auto) 0.8 % (0.0-2.0) Prothrombin Time 13.5 SEC (9.30-11.50) H Prothromb Time International Ratio 1.3 (0.9-1.1) H Activated Partial Thromboplast Time 41 SEC (23-33) H Sodium Level 138 MMOL/L (136-145) # Potassium Level 2.4 MMOL/L (3.5-5.1) #*L Chloride Level 108 MMOL/L (98-107) H Carbon Dioxide Level 24 MMOL/L (21-32) Anion Gap 6 mmol/L (5-15) Blood Urea Nitrogen 7 mg/dL (7-18) Creatinine 0.4 MG/DL (0.55-1.30) L Estimat Glomerular Filtration Rate > 60 mL/min (>60) Glucose Level 99 MG/DL (74-106) # Calcium Level 6.6 MG/DL (8.5-10.1) L Phosphorus Level 2.3 MG/DL (2.5-4.9) L Magnesium Level 1.7 MG/DL (1.8-2.4) L Intake and Output 08/27/18 08/28/18 19:00 07:00 Intake Total 1501.6667 ml 435 ml Output Total 1800 ml Balance -298.3333 ml 435 ml Free Water 100 ml IV Total 1501.6667 ml 75 ml Tube Feeding 260 ml Output Urine Total 350 ml Stool Total 1450 ml Objective General Appearance: WD/WN, no apparent distress, lethargic EENT: PERRL/EOMI, normal ENT inspection Neck: non-tender, normal alignment, supple, normal inspection Cardiovascular: normal peripheral pulses, normal rate, regular rhythm, no gallop/murmur, no JVD Respiratory/Chest: chest wall non-tender, lungs clear, normal breath sounds, no respiratory distress, no accessory muscle use Abdomen: normal bowel sounds, non tender, soft, no organomegaly, no mass Extremities: normal range of motion, non-tender Neurologic: medical doctor md/medical director II-XII grossly normal Skin: normal pigmentation, warm/dry Assessment/Plan Problem List: (1) Sepsis Assessment & Plan: ESBL Proteus Mirablilis. Continue meropenem per ID. 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 (5) Renal failure (ARF), acute on chronic (6) Decubitus ulcer Assessment & Plan: Await debridement per surgery-see note (7) Bipolar II disorder (8) Leukocytosis (9) Clostridium difficile colitis Assessment & Plan: Continue oral vanco per ID (10) CVA (cerebral vascular accident) (11) Acute metabolic encephalopathy (12) HTN (hypertension) (13) CAD (coronary artery disease) (14) Atrial fibrillation Assessment & Plan: Continue eliquis (15) Pneumonia Assessment & Plan: Continue INH per ID-see note (16) Hypernatremia Assessment & Plan: continue D5NS + KCL (17) Hypokalemia Assessment & Plan: Cont D5NS +Kcl (18) Anemia Assessment & Plan: S/P transfusion 2 units PRBC (19) Protein-calorie malnutrition Assessment & Plan: Await PEG 08/29/18-see GI note Daniel Jacksno MD Aug 28, 2018 19:33
[2018-08-28 20:00] VITALS: BP 132/70
--- NOTE | 2018-08-28 20:55 | General Progress Note ---
Assessment/Plan Assessment/Plan Assessment - C Difficile colitis - failed swallow eval - Malnutrition , NGT - s/p b/l AKA - anemia - bacteremia, leukocytosis - improving Recommendations - abx per ID - taper down as possible - probiotics - elevate HOB - replace electrolytes - re check - change IV to NS - transfuse PRN - PEG Tuesday - Poor Px Subjective Allergies: Coded Allergies: MILK (Verified Allergy, Unknown, 02/02/18) Subjective above noted last dose of Eliquis Sat PEG planned for am electrolyte changes noted Objective Last 24 Hour Vital Signs Date Time Temp Pulse Resp B/P (MAP) Pulse Ox O2 Delivery O2 Flow Rate FiO2 08/28/18 20:00 98.2 63 20 132/70 (90) 99 08/28/18 16:00 97.5 66 19 99/62 (74) 99 08/28/18 15:50 62 08/28/18 12:02 49 08/28/18 12:00 97.3 58 18 103/64 (77) 94 08/28/18 09:55 Nasal Cannula 2.0 28 08/28/18 09:55 97 Nasal Cannula 2.0 28 08/28/18 09:00 Nasal Cannula 2.0 08/28/18 08:37 79 129/79 08/28/18 08:34 79 08/28/18 08:00 97.7 79 18 129/79 (96) 94 08/28/18 07:03 75 08/28/18 04:00 66 08/28/18 04:00 97.1 66 19 108/68 (81) 99 08/28/18 00:00 98.7 57 20 121/72 (88) 99 08/28/18 00:00 57 08/28/18 00:00 98.7 57 20 121/72 (88) 100 08/27/18 21:40 Nasal Cannula 3.0 32 08/27/18 21:40 97 Nasal Cannula 3.0 32 08/27/18 21:00 Nasal Cannula 2.0 08/27/18 21:00 50 151/75 Intake and Output 08/27/18 08/28/18 19:00 07:00 Intake Total 1501.6667 ml 435 ml Output Total 1800 ml Balance -298.3333 ml 435 ml Free Water 100 ml IV Total 1501.6667 ml 75 ml Tube Feeding 260 ml Output Urine Total 350 ml Stool Total 1450 ml Laboratory Tests 08/28/18 03:40: White Blood Count 8.2, Red Blood Count 2.68L, Hemoglobin 8.2L, Hematocrit 25.4L , Mean Corpuscular Volume 95, Mean Corpuscular Hemoglobin 30.7, Mean Corpuscular Hemoglobin Concent 32.4, Red Cell Distribution Width 15.9H, Platelet Count 155, Mean Platelet Volume 6.1L, Neutrophils (%) (Auto) 73.2, Lymphocytes (%) (Auto) 16.2L, Monocytes (%) (Auto) 8.3, Eosinophils (%) (Auto) 1.5, Basophils (%) (Auto) 0.8, Prothrombin Time 13.5H, Prothromb Time International Ratio 1.3H, Activated Partial Thromboplast Time 41H, Sodium Level 138#, Potassium Level 2.4#*L, Chloride Level 108H, Carbon Dioxide Level 24, Anion Gap 6, Blood Urea Nitrogen 7, Creatinine 0.4L, Estimat Glomerular Filtration Rate > 60, Glucose Level 99#, Calcium Level 6.6L, Phosphorus Level 2.3L, Magnesium Level 1.7L Height (Feet): 6 Height (Inches): 0.40 Weight (Pounds): 155 Objective Elderly AA man NCAT supple CTA RRR Abd soft (+) Gina Graham MD Aug 28, 2018 20:55
[2018-08-28 22:03] LABS: ANION GAP 2 mmol/L (5-15); BLOOD UREA NITROGEN 9 mg/dL (7-18); CALCIUM 6.8 MG/DL (8.5-10.1); CARBON DIOXIDE 24 MMOL/L (21-32); CHLORIDE 113 MMOL/L (98-107); CREATININE 0.4 MG/DL (0.55-1.30); POTASSIUM 5.9 MMOL/L (3.5-5.1); SODIUM 139 MMOL/L (136-145)
[2018-08-28] MEDS: Dyna-Hex 2% Top Sol 2oz TOPIC SCH (22:22)
[2018-08-28 23:50] LABS: ANION GAP 6 mmol/L (5-15); BLOOD UREA NITROGEN 9 mg/dL (7-18); CALCIUM 7.4 MG/DL (8.5-10.1); CARBON DIOXIDE 24 MMOL/L (21-32); CHLORIDE 109 MMOL/L (98-107); CREATININE 0.4 MG/DL (0.55-1.30); SODIUM 139 MMOL/L (136-145)
[2018-08-29] VITALS (12 sets, daily range): BP systolic 111–176; BP diastolic 53–90
[2018-08-29] MEDS: metroNIDAZOLE 500mg tab NG SCH ×3 (06:00→20:50)
[2018-08-29] MEDS: Meropenem 1 GM in NS 55 ML IVPB SCH ×2 (06:44→12:18)
[2018-08-29] MEDS ORDERED: fentaNYL 100 mcg/2 mL IV PRN (06:45)
[2018-08-29] MEDS ORDERED: Midazolam 2mg/2ml Inj IVP PRN (06:45)
[2018-08-29] MEDS ORDERED: DiphenhydrAMINE 50mg/ml Inj IVP PRN (06:45)
[2018-08-29] MEDS ORDERED: Atropine Inj 1mg/10ml Syr IV PRN (06:45)
[2018-08-29] MEDS ORDERED: Propofol 200mg/20ml IV ONE (07:00)
[2018-08-29] MEDS ORDERED: Lidocaine 1% MPF 10mg/ml 5ml ONE (07:00)
[2018-08-29 07:21] LABS: BASOPHILS % (AUTO) 0.8 % (0.0-2.0); EOSINOPHILS % (AUTO) 0.6 % (0.0-3.0); HEMATOCRIT 29.3 % (42.0-52.0); HEMOGLOBIN 9.2 G/DL (14.2-18.0); LYMPHOCYTES % (AUTO) 20.9 % (20.0-45.0); MEAN CORPUSCULAR VOLUME 96 FL (80-99); MONOCYTES % (AUTO) 8.7 % (1.0-10.0); NEUTROPHILS % (AUTO) 69.1 % (45.0-75.0); PLATELET COUNT 197 K/UL (150-450); RED BLOOD COUNT 3.04 M/UL (4.70-6.10); RED CELL DISTRIBUTION WIDTH 16.3 % (11.6-14.8); WHITE BLOOD COUNT 11.5 K/UL (4.8-10.8)
[2018-08-29 07:26] LABS: ANION GAP 6 mmol/L (5-15); BLOOD UREA NITROGEN 8 mg/dL (7-18); CALCIUM 7.5 MG/DL (8.5-10.1); CARBON DIOXIDE 23 MMOL/L (21-32); CHLORIDE 109 MMOL/L (98-107); CREATININE 0.4 MG/DL (0.55-1.30); POTASSIUM 3.1 MMOL/L (3.5-5.1); SODIUM 138 MMOL/L (136-145)
[2018-08-29] MEDS ORDERED: NS 500ML IVPB ONE (07:30)
[2018-08-29] MEDS: Amiodarone 200mg tab NG SCH (09:00)
[2018-08-29] MEDS: Lactobacillus-GG tablet NG SCH (09:00)
[2018-08-29] MEDS: Vancomycin oral 125mg/2.5ml NG SCH (09:00)
[2018-08-29] MEDS: Bethanechol 10mg Tab NG SCH ×4 (09:00→20:47)
--- NOTE | 2018-08-29 09:26 | Anethesia Preoperative Eval ---
Anesthesia Pre-op PMH/ROS General Date of Evaluation: Aug 29, 2018 Time of Evaluation: 06:45 Anesthesiologist: vanita ASA Score: ASA 4 Mallampati Score Class I : Soft palate, uvula, fauces, pillars visible Class II: Soft palate, uvula, fauces visible Class III: Soft palate, base of uvula visible Class IV: Only hard plate visible Mallampati Classification: Class II Surgeon: johann Diagnosis: malnutrition, dysphagia Surgical Procedure: peg Anesthesia History: none Family History: no anesthesia problems Allergies: Coded Allergies: MILK (Verified Allergy, Unknown, 02/02/18) Medications: see eMAR Patient NPO?: Yes Past Medical History Cardiovascular: Reports: HTN, CAD, arrhythmia, other - hypercholesterolemia, Pulmonary: Reports: other - pneumonia Gastrointestinal/Genitourinary: Reports: ESRD, other - c. diff colitis, uti, 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: Reports: CVA, TIA Hematology/Immune: Reports: other - sepsis, Musculoskeletal/Integumentary: Reports: other - bilateral aka Anesthesia Pre-op Phys. Exam Physician Exam Last Vital Signs Date Time Temp Pulse Resp B/P (MAP) Pulse Ox O2 Delivery O2 Flow Rate FiO2 08/29/18 08:25 67 18 146/84 100 Nasal Cannula 4 08/29/18 08:20 98.0 08/28/18 22:50 28 Constitutional: NAD Neurologic: other - cva Cardiovascular: other - arrythymia Respiratory: CTA Gastrointestinal: other - distended Airway Exam Mallampati Score: Class II MO: limited Neck: flexible TMD: 2fb ROM: limited Teeth: missing Anesthesia Pre-op A/P Labs Hematology Test 08/29/18 06:50 White Blood Count 11.5 K/UL (4.8-10.8) H Red Blood Count 3.04 M/UL (4.70-6.10) L Hemoglobin 9.2 G/DL (14.2-18.0) L Hematocrit 29.3 % (42.0-52.0) L Mean Corpuscular Volume 96 FL (80-99) Mean Corpuscular Hemoglobin 30.2 PG (27.0-31.0) Mean Corpuscular Hemoglobin Concent 31.4 G/DL (32.0-36.0) L Red Cell Distribution Width 16.3 % (11.6-14.8) H Platelet Count 197 K/UL (150-450) Mean Platelet Volume 6.0 FL (6.5-10.1) L Neutrophils (%) (Auto) 69.1 % (45.0-75.0) Lymphocytes (%) (Auto) 20.9 % (20.0-45.0) Monocytes (%) (Auto) 8.7 % (1.0-10.0) Eosinophils (%) (Auto) 0.6 % (0.0-3.0) Basophils (%) (Auto) 0.8 % (0.0-2.0) Chemistry Test 08/28/18 21:20 08/28/18 23:16 08/29/18 06:50 Sodium Level 139 MMOL/L (136-145) 139 MMOL/L (136-145) 138 MMOL/L (136-145) Potassium Level 5.9 MMOL/L (3.5-5.1) #H 3.0 MMOL/L (3.5-5.1) L 3.1 MMOL/L (3.5-5.1) L Chloride Level 113 MMOL/L (98-107) H 109 MMOL/L (98-107) H 109 MMOL/L (98-107) H Carbon Dioxide Level 24 MMOL/L (21-32) 24 MMOL/L (21-32) 23 MMOL/L (21-32) Anion Gap 2 mmol/L (5-15) L 6 mmol/L (5-15) 6 mmol/L (5-15) Blood Urea Nitrogen 9 mg/dL (7-18) 9 mg/dL (7-18) 8 mg/dL (7-18) Creatinine 0.4 MG/DL (0.55-1.30) L 0.4 MG/DL (0.55-1.30) L 0.4 MG/DL (0.55-1.30) L Estimat Glomerular Filtration Rate > 60 mL/min (>60) > 60 mL/min (>60) > 60 mL/min (>60) Glucose Level 82 MG/DL (74-106) 81 MG/DL (74-106) 75 MG/DL (74-106) Calcium Level 6.8 MG/DL (8.5-10.1) L 7.4 MG/DL (8.5-10.1) L 7.5 MG/DL (8.5-10.1) L Magnesium Level 1.5 MG/DL (1.8-2.4) L 1.6 MG/DL (1.8-2.4) L 1.9 MG/DL (1.8-2.4) Risk Assessment & Plan Assessment: [email or web address] Plan: mac Status Change Before Surgery: No Pre-Antibiotics Drug: Shu Sawant MD Aug 29, 2018 09:26
--- NOTE | 2018-08-29 09:28 | Immediate Post-Op Evaluation ---
Immediate Post-Op Evalulation Immediate Post-Op Evalulation Procedure: egd/peg Date of Evaluation: Aug 29, 2018 Time of Evaluation: 08:07 IV Fluids: 100ml 0.9ns Blood Products: none Estimated Blood Loss: negligible Blood Pressure Systolic: 159 Blood Pressure Diastolic: 90 Pulse Rate: 60 Respiratory Rate: 18 O2 Sat by Pulse Oximetry: 100 Pain Score (1-10): 0 Nausea: No Vomiting: No Complications none Patient Status: awake, reacts, patent Hydration Status: adequate Drug: Shu Sawant MD Aug 29, 2018 09:28
--- NOTE | 2018-08-29 09:31 | 48 Hour Post Anesthesia Eval ---
Post Anesthesia Evaluation Procedure: egd/peg Date of Evaluation: Aug 29, 2018 Time of Evaluation: 08:09 Blood Pressure Systolic: 141 0: 85 Pulse Rate: 66 Respiratory Rate: 18 Temperature (Fahrenheit): 98.0 O2 Sat by Pulse Oximetry: 100 Airway: patent Nausea: No Vomiting: No Pain Intensity: 0 Hydration Status: adequate Cardiopulmonary Status: stable Mental Status/LOC: patient returned to baseline Post-Anesthesia Complications: none Follow-up care needed: N/A Shu Bustamante MD Aug 29, 2018 09:31
[2018-08-29] MEDS ORDERED: Acetaminophen 650mg/20.3ml PEG PRN (11:00)
[2018-08-29] MEDS: Lactobacillus-GG tablet GT SCH ×2 (12:17→17:39)
[2018-08-29] MEDS: Vancomycin oral 125mg/2.5ml GT SCH ×3 (12:17→20:47)
[2018-08-29] MEDS: NS w/KCl 40mEq 1,000 ML IV SCH ×2 (12:18→23:57)
[2018-08-29] MEDS: Dakin's 0.125% Soln (Quarter Strength) 16oz TOPIC SCH (12:18)
--- NOTE | 2018-08-29 12:40 | Surgery Progress Note ---
Surgery Progress Note Subjective Additional Comments Status post PEG placement. No acute events. Comfortable. Labs Noted Objective Last 24 Hour Vital Signs Date Time Temp Pulse Resp B/P (MAP) Pulse Ox O2 Delivery O2 Flow Rate FiO2 08/29/18 09:31 66 18 100 08/29/18 09:28 60 18 100 08/29/18 09:00 Nasal Cannula 2.0 08/29/18 08:25 67 18 146/84 100 Nasal Cannula 4 08/29/18 08:20 98.0 65 18 129/87 100 Nasal Cannula 4 08/29/18 08:10 66 18 141/85 100 Nasal Cannula 4 08/29/18 08:00 69 08/29/18 07:55 65 18 176/87 100 Nasal Cannula 4 08/29/18 07:50 65 18 172/87 100 Nasal Cannula 4 08/29/18 07:45 97.7 62 18 157/90 100 Nasal Cannula 4 08/29/18 07:14 Nasal Cannula 2.0 28 08/29/18 07:14 96 Nasal Cannula 2.0 28 08/29/18 04:00 98.0 64 20 111/64 (80) 100 08/29/18 04:00 57 08/29/18 00:00 98.0 54 18 118/53 (74) 98 08/29/18 00:00 57 08/28/18 22:50 98 Nasal Cannula 2.0 28 08/28/18 22:50 Nasal Cannula 2.0 28 08/28/18 21:52 63 132/70 08/28/18 21:00 Nasal Cannula 2.0 08/28/18 20:00 60 08/28/18 20:00 98.2 63 20 132/70 (90) 99 08/28/18 16:00 97.5 66 19 99/62 (74) 99 08/28/18 15:50 62 I&O Intake and Output 08/28/18 08/29/18 18:59 06:59 Intake Total 1254 ml Output Total 1175 ml 350 ml Balance -1175 ml 904 ml Free Water 60 ml IV Total 994 ml Tube Feeding 200 ml Output Urine Total 1175 ml 350 ml Dressing: saturated, other Wound: other Drains: other Cardiovascular: RSR Respiratory: clear Abdomen: soft, non-tender, non-distended Extremities: other Laboratory Tests Test 3/11/19 21:20 08/28/18 23:16 08/29/18 06:50 Sodium Level 139 MMOL/L (136-145) 139 MMOL/L (136-145) 138 MMOL/L (136-145) Potassium Level 5.9 MMOL/L (3.5-5.1) #H 3.0 MMOL/L (3.5-5.1) L 3.1 MMOL/L (3.5-5.1) L Chloride Level 113 MMOL/L (98-107) H 109 MMOL/L (98-107) H 109 MMOL/L (98-107) H Carbon Dioxide Level 24 MMOL/L (21-32) 24 MMOL/L (21-32) 23 MMOL/L (21-32) Anion Gap 2 mmol/L (5-15) L 6 mmol/L (5-15) 6 mmol/L (5-15) Blood Urea Nitrogen 9 mg/dL (7-18) 9 mg/dL (7-18) 8 mg/dL (7-18) Creatinine 0.4 MG/DL (0.55-1.30) L 0.4 MG/DL (0.55-1.30) L 0.4 MG/DL (0.55-1.30) L Estimat Glomerular Filtration Rate > 60 mL/min (>60) > 60 mL/min (>60) > 60 mL/min (>60) Glucose Level 82 MG/DL (74-106) 81 MG/DL (74-106) 75 MG/DL (74-106) Calcium Level 6.8 MG/DL (8.5-10.1) L 7.4 MG/DL (8.5-10.1) L 7.5 MG/DL (8.5-10.1) L Magnesium Level 1.5 MG/DL (1.8-2.4) L 1.6 MG/DL (1.8-2.4) L 1.9 MG/DL (1.8-2.4) White Blood Count 11.5 K/UL (4.8-10.8) H Red Blood Count 3.04 M/UL (4.70-6.10) L Hemoglobin 9.2 G/DL (14.2-18.0) L Hematocrit 29.3 % (42.0-52.0) L Mean Corpuscular Volume 96 FL (80-99) Mean Corpuscular Hemoglobin 30.2 PG (27.0-31.0) Mean Corpuscular Hemoglobin Concent 31.4 G/DL (32.0-36.0) L Red Cell Distribution Width 16.3 % (11.6-14.8) H Platelet Count 197 K/UL (150-450) Mean Platelet Volume 6.0 FL (6.5-10.1) L Neutrophils (%) (Auto) 69.1 % (45.0-75.0) Lymphocytes (%) (Auto) 20.9 % (20.0-45.0) Monocytes (%) (Auto) 8.7 % (1.0-10.0) Eosinophils (%) (Auto) 0.6 % (0.0-3.0) Basophils (%) (Auto) 0.8 % (0.0-2.0) Digoxin Level 0.6 NG/ML (0.5-2.0) Plan Problems: (1) Sepsis Assessment & Plan: IV abx trend labs will monitor wounds spoke with daughter. consent obtained. s/p wound cleaning/debridement recommend PEG pending PEG today Feeds starting tomorrow. needs electrolytes replaced (2) Decubitus skin ulcer Assessment & Plan: Pt presented on admission with multiple full thickness pressure injuries. Full thickness pressure injury to L elbow.Base of wound wound with 25% fibrinous slough,75% pink granulation noted.(+) maceration along borders. erythema without elevation in skin temp periwound(L)1.5cm x (W)1.8cm x(D)0.3cm. Full thickness pressure injury R trochanter .Base of wound with pink granulation.Edges adherent to base of wound .No odor or exudate noted.Darker skin tone without induration periwound. (L)4.5cm x (W)6.3cm x (D) 3cm.Undermining 12-3 by 3cm @12o'clock. Full thickness pressure injury to R ischium .Wound is malodorous.90% soft necrosis,10% pink noted at base of wound ,(+) epibole along edges .Periwound darker in skin tone and is indurated.(L)8.4cm x (W)4.3cm (D)2.5cm .Tunneling at 1o'clock by 3.6cm ,tunneling @5o'clock by 6.3cm. Full thickness sacral pressure injury with 80% soft necrosis ,20% pink granulation .Wound is malodorous with small amt brown exudate (L)8.5cm x (W)5cm x (D)2.5cm ,undermining 8-5 by 4.7cm @1o'clock. wounds with gross drainage poor nutritional status. prognosis concerning Tx.Plan: Cleanse R trochanter with Dakin's 0.125% candelaria. Loosely pack with Dakin's soaked kerlix .Cover with Optifoam drsg TID and prn. Cleanse R Ischial wound with Dakin's 0.125% candelaria.Loosely pack with Dakin's soaked kerlix. Cavilon Skin Barrier periwound. Cover with Optifoam drsg TID and prn. Cleanse Sacral wound with dakin's 0.125% candelaria.Loosely pack with Dakin's soaked kerlix.Cavilon Skin Barrier periwound.Cover with Optifoam drsg TID and prn. Cleanse L elbow with Dakin's 0.125% candelaria. Apply Dakin's moist 2x2 gauze. Cover with Optifoam drsg TID and prn. Quartet Air fluidized mattress. Reposition L side to back at least every 2hours or as tolerated. /- Patient has been improving with repeat blood cultures were without growth thus far. Spoke with patient's daughter yesterday explained that we will proceed with debridement which she and the family is consented to. Patient still unable to consent given his current medical condition and mental status. Patient was made comfortable at the bedside with the assistance of the wound care team and nursing staff we began evaluating and improving patient's wounds. The left elbow was evaluated and identified to have a 1-2 cm full-thickness injury with palpable bone no erythema or cellulitis not requiring any debridement at this time. Wound care and dressings have been going well for this wound. We will continue with wound care and dressings as above. The sacral wound was evaluated and identified to have a open portion stage IV as well as a necrotic eschar needed excision. Using a #10 scalpel and forceps the necrotic eschar was excised so that the entirety of the wound could be evaluated and cared for. There was significant soft slough noted in the wound bed and minor debridement was done but given the fact the patient is on Eliquis vision was made to forego complete debridement until safe time where patient can be off anticoagulation. The right issue wound was evaluated and noted to be fairly malodorous with soft tissue necrosis. There is near purulent drainage coming from this wound and some tracking was identified in the inferior aspect of the wound. Wound was completely evaluated and tracking noted. Wound was irrigated and cleansed until clean. Minor debridement of the necrotic wound edges was performed to allow for better evaluation of the underlying tissues. Following this Dakin's packing and dressing as noted above was continued. The right trochanter wound was identified and very clean with good granulation tissue identified not requiring further debridement at this time. Above wound care orders were continued as they have been slowly improving. There is significant amount of slough left and some debris that requires excision but needs to be done when patient is off Eliquis which at this time is not recommended. Goyo Osuna Aug 29, 2018 12:40
--- NOTE | 2018-08-29 12:46 | Pulmonology Progress Note ---
Assessment/Plan Problems: (1) Clostridium difficile colitis (2) Acute metabolic encephalopathy (3) Sepsis (4) Decubitus skin ulcer (5) UTI (urinary tract infection) (6) Anemia (7) CVA (cerebral vascular accident) Assessment/Plan unchanged mental status telemetry records reviewed, still tachy with PAC's and PVC's junctional rhythm iv abx check electrolytes continue current meds. dvt prophylaxis. got his PEG Subjective ROS Limited/Unobtainable: Yes Constitutional: Reports: no symptoms HEENT: Repors: no symptoms Allergies: Coded Allergies: MILK (Verified Allergy, Unknown, 02/02/18) Objective Last 24 Hour Vital Signs Date Time Temp Pulse Resp B/P (MAP) Pulse Ox O2 Delivery O2 Flow Rate FiO2 08/29/18 09:31 66 18 100 08/29/18 09:28 60 18 100 08/29/18 09:00 Nasal Cannula 2.0 08/29/18 08:25 67 18 146/84 100 Nasal Cannula 4 08/29/18 08:20 98.0 65 18 129/87 100 Nasal Cannula 4 08/29/18 08:10 66 18 141/85 100 Nasal Cannula 4 08/29/18 08:00 69 08/29/18 07:55 65 18 176/87 100 Nasal Cannula 4 08/29/18 07:50 65 18 172/87 100 Nasal Cannula 4 08/29/18 07:45 97.7 62 18 157/90 100 Nasal Cannula 4 08/29/18 07:14 Nasal Cannula 2.0 28 08/29/18 07:14 96 Nasal Cannula 2.0 28 08/29/18 04:00 98.0 64 20 111/64 (80) 100 08/29/18 04:00 57 08/29/18 00:00 98.0 54 18 118/53 (74) 98 08/29/18 00:00 57 08/28/18 22:50 98 Nasal Cannula 2.0 28 08/28/18 22:50 Nasal Cannula 2.0 28 08/28/18 21:52 63 132/70 08/28/18 21:00 Nasal Cannula 2.0 08/28/18 20:00 60 08/28/18 20:00 98.2 63 20 132/70 (90) 99 08/28/18 16:00 97.5 66 19 99/62 (74) 99 08/28/18 15:50 62 Intake and Output 08/28/18 08/29/18 18:59 06:59 Intake Total 1254 ml Output Total 1175 ml 350 ml Balance -1175 ml 904 ml Free Water 60 ml IV Total 994 ml Tube Feeding 200 ml Output Urine Total 1175 ml 350 ml General Appearance: WD/WN HEENT: normocephalic, atraumatic Respiratory/Chest: chest wall non-tender, lungs clear, normal breath sounds, chest wall tender Cardiovascular: normal peripheral pulses, normal rate Abdomen: normal bowel sounds, soft, non tender Genitourinary: normal external genitalia Extremities: no clubbing Laboratory Tests 08/28/18 21:20: Sodium Level 139, Potassium Level 5.9#H, Chloride Level 113H, Carbon Dioxide Level 24, Anion Gap 2L, Blood Urea Nitrogen 9, Creatinine 0.4L, Estimat Glomerular Filtration Rate > 60, Glucose Level 82, Calcium Level 6.8L, Magnesium Level 1.5L 08/28/18 23:16: Sodium Level 139, Potassium Level 3.0L, Chloride Level 109H, Carbon Dioxide Level 24, Anion Gap 6, Blood Urea Nitrogen 9, Creatinine 0.4L, Estimat Glomerular Filtration Rate > 60, Glucose Level 81, Calcium Level 7.4L, Magnesium Level 1.6L 08/29/18 06:50: Sodium Level 138, Potassium Level 3.1L, Chloride Level 109H, Carbon Dioxide Level 23, Anion Gap 6, Blood Urea Nitrogen 8, Creatinine 0.4L, Estimat Glomerular Filtration Rate > 60, Glucose Level 75, Calcium Level 7.5L, Magnesium Level 1.9, White Blood Count 11.5H, Red Blood Count 3.04L, Hemoglobin 9.2L, Hematocrit 29.3L, Mean Corpuscular Volume 96, Mean Corpuscular Hemoglobin 30.2, Mean Corpuscular Hemoglobin Concent 31.4L, Red Cell Distribution Width 16.3H, Platelet Count 197, Mean Platelet Volume 6.0L, Neutrophils (%) (Auto) 69.1, Lymphocytes (%) (Auto) 20.9, Monocytes (%) (Auto) 8.7, Eosinophils (%) ( Auto) 0.6, Basophils (%) (Auto) 0.8, Digoxin Level 0.6 Current Medications Medications (Trade) Dose Ordered Sig/Erlin Route PRN Reason Start Time Stop Time Status Last Admin Dose Admin Acetaminophen (Tylenol) 650 mg Q4H PRN PEG Mild Pain (Pain Scale 1-3) 08/29/18 11:00 09/13/18 10:59 Acetaminophen (Tylenol) 650 mg Q6H PRN PEG Temp > 100.5 08/29/18 11:00 09/13/18 10:59 Al Hydroxide/Mg Hydroxide (Mylanta) 15 ml Q1H PRN ORAL gi upset 08/29/18 06:45 08/29/18 14:00 Albuterol/ Ipratropium (Albuterol/ Ipratropium) 3 ml Q4H PRN HHN sob 08/26/18 12:30 08/31/18 12:29 Amiodarone HCl (Cordarone) 200 mg DAILY PEG 08/30/18 09:00 09/19/18 08:59 Aripiprazole (Abilify) 5 mg BID ORAL 08/14/18 09:00 09/13/18 08:59 08/28/18 18:30 Atropine Sulfate (Atropine) 0.5 mg Q5M PRN IV bpm less than 45 08/29/18 06:45 08/29/18 14:00 Bethanechol Chloride (Urecholine) 10 mg FOUR TIMES A DAY NG 08/27/18 21:00 09/26/18 20:59 08/29/18 12:16 Chlorhexidine Gluconate (Yari-Hex 2%) 1 applic DAILY@2000 TOPIC 08/22/18 20:00 09/21/18 19:59 08/28/18 22:22 Clonidine HCl (Catapres tab) 0.2 mg Q4H PRN GT For High Blood Pressure 08/26/18 09:45 09/21/18 01:44 Digoxin (Lanoxin) 0.125 mg DAILY PEG 08/30/18 09:00 09/19/18 08:59 Diphenhydramine HCl (Benadryl) 25 mg Q15M PRN IVP Itching 08/29/18 06:45 08/29/18 14:00 Fentanyl Citrate (Sublimaze 100 mcg/2 mL) 25 mcg Q10M PRN IV Moderate Pain (Pain Scale 4-6) 08/29/18 06:45 08/29/18 14:00 Gabapentin (Neurontin) 100 mg THREE TIMES A DAY PEG 08/29/18 13:00 09/13/18 12:59 08/29/18 12:16 Hydralazine HCl (Apresoline) 5 mg Q30M PRN IV SBP>160 OR___/DBP>90 OR___ 08/29/18 06:45 08/29/18 14:00 Isoniazid (Inh) 300 mg DAILY GT 08/30/18 09:00 09/13/18 08:59 Lactobacillus Acidophilus (Culturelle) 1 tab THREE TIMES A DAY GT 08/29/18 13:00 09/18/18 08:59 08/29/18 12:17 Meropenem 1 gm/ Sodium Chloride 55 ml @ 110 mls/hr Q8H IVPB 08/17/18 21:00 08/29/18 23:59 08/29/18 12:18 Metoprolol Tartrate (Lopressor) 50 mg Q12HR PEG 08/29/18 21:00 09/22/18 20:59 Metronidazole (Flagyl) 500 mg Q8HR NG 08/26/18 14:00 08/30/18 13:59 08/28/18 21:51 Midazolam HCl (Versed 2mg/2ml vial) 1 mg Q15M PRN IVP For Anxiety 08/29/18 06:45 08/29/18 14:00 Ondansetron HCl (Zofran) 4 mg Q1H PRN IVP Nausea & Vomiting 08/29/18 06:45 08/29/18 14:00 Pyridoxine HCl (Vitamin B6) 50 mg DAILY PEG 08/30/18 09:00 09/13/18 08:59 Sodium Hypochlorite (Dakin's Quarter Strength) 1 applic DAILY TOPIC 08/14/18 16:00 09/13/18 15:59 08/29/18 12:18 Sodium Chloride 1,000 ml @ 75 mls/hr [id number] IV 08/28/18 07:30 09/27/18 07:29 08/29/18 12:18 Vancomycin HCl (Firvanq) 250 mg FOUR TIMES A DAY GT 08/29/18 13:00 09/05/18 12:59 08/29/18 12:17 Vitamin B Complex/ Vit C/Folic Acid (Nephrovite) 1 tab DAILY GT 08/30/18 09:00 09/13/18 08:59 Zinc Sulfate (Zinc Sulfate) 220 mg DAILY PEG 08/30/18 09:00 09/13/18 08:59 Minerva Montesinos MD Aug 29, 2018 12:46
--- NOTE | 2018-08-29 13:49 | Infectious Diseases Prog Note ---
Assessment/Plan Assessment/Plan Sepsis-2ry to bacteremia (likley from GI translocation ) -CT abd/p" Colonic mural thickening consistent with some form of colitis. No pneumatosis or extraluminal air. C Diff -Cdif toxin a/b + -Bcx 08/21 GNR, 08/21 ESBL Proteus mirabilis (S Ertapenem, Zosyn), 08/21 Group C strep ; 08/15 Bcx 07/24 Prevotella L . (R Clinda, Unasyn; S flagyl) ;08/17 Bcx 07/24 EUBACTERIUM LENTUM 08/21 Bcx Neg -u/a no pyuria -CXR: Suspect a small left pleural effusion. Mild basal atelectasis -influenza sc neg Fever, SP Leukocytosis , mild recurrent -08/28 CXR: There is decreased consolidation at the right lung base. There is some residual perihilar atelectasis. Hx of lung cavitary lesion/ PNA- suspect likely to aspiration; lower suspicion for TB and/or fungal etiologies -06/08 CT chest: * Interval resolution of the cavitary component associated with the previously described anterior right upper lobe opacity. It is slightly decreased in size and more nodular in appearance on today's exam. Additional patchy opacities in the posterior right upper lobe are also slightly decreased in size and appear more nodular (previously were groundglass). Findings likely related to evolving infectious or inflammatory lesions however continued follow-up is recommended to assure resolution/exclude the possibility of neoplastic etiologies. -CT c/a/p: 10 mm opacity in the peripheral anterolateral right upper lobe with small central cavitation. Patchy groundglass opacity in the posterior right upper lobe. Suspect that these represent inflammatory/infectious lesions, but neoplastic etiology of either is certainly possible. Large left and moderate right pleural effusions. Resultant compressive atelectasis of portions of the lower lobes. 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 Hypertension. Multiple decubiti ulcers (elbow, sacral) -not infected Bipolar disorder. Coronary artery disease. VRE and MRSA colonized Plan: -D/c Meropenem #13 (abx d #15/) given ESBL bacteremia -Continue PO Vancomycin #15/14-21 for Cdiff and Flagyl #/-10 -if diarrhea not improving, may need to switch to Fidaxomicin -Cont INH for latent TB -08/17 SP Zosyn #3, Daptomycin #3 -08/15 SP Tamiflu #2, Ceftriaxone #2 -08/14 SP Cefepime and LEvaquin x1 -Monitor CBC/CMP, temperatures -wound care -aspiration precautions -Sx f/u Subjective Allergies: Coded Allergies: MILK (Verified Allergy, Unknown, 02/02/18) Subjective afebrile repeat bcx Neg mild leukocytosis s/p PEG today Objective Vital Signs Last 24 Hour Vital Signs Date Time Temp Pulse Resp B/P (MAP) Pulse Ox O2 Delivery O2 Flow Rate FiO2 08/29/18 12:00 98.3 71 20 122/78 (93) 96 08/29/18 09:31 66 18 100 08/29/18 09:28 60 18 100 08/29/18 09:00 Nasal Cannula 2.0 08/29/18 08:25 67 18 146/84 100 Nasal Cannula 4 08/29/18 08:20 98.0 65 18 129/87 100 Nasal Cannula 4 08/29/18 08:10 66 18 141/85 100 Nasal Cannula 4 08/29/18 08:00 69 08/29/18 08:00 97.7 66 20 136/82 (100) 100 08/29/18 07:55 65 18 176/87 100 Nasal Cannula 4 08/29/18 07:50 65 18 172/87 100 Nasal Cannula 4 08/29/18 07:45 97.7 62 18 157/90 100 Nasal Cannula 4 08/29/18 07:14 Nasal Cannula 2.0 28 08/29/18 07:14 96 Nasal Cannula 2.0 28 08/29/18 04:00 98.0 64 20 111/64 (80) 100 08/29/18 04:00 57 3/12/19 00:00 98.0 54 18 118/53 (74) 98 08/29/18 00:00 57 08/28/18 22:50 98 Nasal Cannula 2.0 28 08/28/18 22:50 Nasal Cannula 2.0 28 08/28/18 21:52 63 132/70 08/28/18 21:00 Nasal Cannula 2.0 08/28/18 20:00 60 08/28/18 20:00 98.2 63 20 132/70 (90) 99 08/28/18 16:00 97.5 66 19 99/62 (74) 99 08/28/18 15:50 62 Height (Feet): 6 Height (Inches): 0.40 Weight (Pounds): 161 Objective General appearance: alert, cooperative, no distress, appears stated age Head: Normocephalic, without obvious abnormality, atraumatic Eyes: conjunctivae/corneas clear. PERRL, EOM's intact. Fundi benign Throat: Lips, mucosa, and tongue normal. Teeth and gums normal Neck: supple, symmetrical, trachea midline, no adenopathy, thyroid: not enlarged, symmetric, no tenderness/mass/nodules, no carotid bruit and no JVD Lungs: clear to auscultation bilaterally Heart: regular rate and rhythm, S1, S2 normal, no murmur, click, rub or gallop Abdomen: soft, non-tender. Bowel sounds normal. No masses, no organomegaly Extremities: extremities normal, atraumatic, no cyanosis or edema/ s/p bilateral aka Pulses: 2+ and symmetric Skin: Skin color, texture, turgor normal. No rashes or lesions. multiple large decubitus ulcers. Neurologic: Grossly normal Laboratory Tests Test 08/28/18 21:20 08/28/18 23:16 08/29/18 06:50 Sodium Level 139 MMOL/L (136-145) 139 MMOL/L (136-145) 138 MMOL/L (136-145) Potassium Level 5.9 MMOL/L (3.5-5.1) #H 3.0 MMOL/L (3.5-5.1) L 3.1 MMOL/L (3.5-5.1) L Chloride Level 113 MMOL/L (98-107) H 109 MMOL/L (98-107) H 109 MMOL/L (98-107) H Carbon Dioxide Level 24 MMOL/L (21-32) 24 MMOL/L (21-32) 23 MMOL/L (21-32) Anion Gap 2 mmol/L (5-15) L 6 mmol/L (5-15) 6 mmol/L (5-15) Blood Urea Nitrogen 9 mg/dL (7-18) 9 mg/dL (7-18) 8 mg/dL (7-18) Creatinine 0.4 MG/DL (0.55-1.30) L 0.4 MG/DL (0.55-1.30) L 0.4 MG/DL (0.55-1.30) L Estimat Glomerular Filtration Rate > 60 mL/min (>60) > 60 mL/min (>60) > 60 mL/min (>60) Glucose Level 82 MG/DL (74-106) 81 MG/DL (74-106) 75 MG/DL (74-106) Calcium Level 6.8 MG/DL (8.5-10.1) L 7.4 MG/DL (8.5-10.1) L 7.5 MG/DL (8.5-10.1) L Magnesium Level 1.5 MG/DL (1.8-2.4) L 1.6 MG/DL (1.8-2.4) L 1.9 MG/DL (1.8-2.4) White Blood Count 11.5 K/UL (4.8-10.8) H Red Blood Count 3.04 M/UL (4.70-6.10) L Hemoglobin 9.2 G/DL (14.2-18.0) L Hematocrit 29.3 % (42.0-52.0) L Mean Corpuscular Volume 96 FL (80-99) Mean Corpuscular Hemoglobin 30.2 PG (27.0-31.0) Mean Corpuscular Hemoglobin Concent 31.4 G/DL (32.0-36.0) L Red Cell Distribution Width 16.3 % (11.6-14.8) H Platelet Count 197 K/UL (150-450) Mean Platelet Volume 6.0 FL (6.5-10.1) L Neutrophils (%) (Auto) 69.1 % (45.0-75.0) Lymphocytes (%) (Auto) 20.9 % (20.0-45.0) Monocytes (%) (Auto) 8.7 % (1.0-10.0) Eosinophils (%) (Auto) 0.6 % (0.0-3.0) Basophils (%) (Auto) 0.8 % (0.0-2.0) Digoxin Level 0.6 NG/ML (0.5-2.0) Current Medications Medications (Trade) Dose Ordered Sig/Erlin Route PRN Reason Start Time Stop Time Status Last Admin Dose Admin Acetaminophen (Tylenol) 650 mg Q4H PRN PEG Mild Pain (Pain Scale 1-3) 08/29/18 11:00 09/13/18 10:59 Acetaminophen (Tylenol) 650 mg Q6H PRN PEG Temp > 100.5 08/29/18 11:00 09/13/18 10:59 Al Hydroxide/Mg Hydroxide (Mylanta) 15 ml Q1H PRN ORAL gi upset 08/29/18 06:45 08/29/18 14:00 Albuterol/ Ipratropium (Albuterol/ Ipratropium) 3 ml Q4H PRN HHN sob 08/26/18 12:30 08/31/18 12:29 Amiodarone HCl (Cordarone) 200 mg DAILY PEG 08/30/18 09:00 09/19/18 08:59 Aripiprazole (Abilify) 5 mg BID ORAL 08/14/18 09:00 09/13/18 08:59 08/28/18 18:30 Atropine Sulfate (Atropine) 0.5 mg Q5M PRN IV bpm less than 45 08/29/18 06:45 08/29/18 14:00 Bethanechol Chloride (Urecholine) 10 mg FOUR TIMES A DAY NG 08/27/18 21:00 09/26/18 20:59 08/29/18 12:16 Chlorhexidine Gluconate (Yari-Hex 2%) 1 applic DAILY@1999 TOPIC 08/22/18 20:00 09/21/18 19:59 08/28/18 22:22 Clonidine HCl (Catapres tab) 0.2 mg Q4H PRN GT For High Blood Pressure 08/26/18 09:45 09/21/18 01:44 Digoxin (Lanoxin) 0.125 mg DAILY PEG 08/30/18 09:00 09/19/18 08:59 Diphenhydramine HCl (Benadryl) 25 mg Q15M PRN IVP Itching 08/29/18 06:45 08/29/18 14:00 Fentanyl Citrate (Sublimaze 100 mcg/2 mL) 25 mcg Q10M PRN IV Moderate Pain (Pain Scale 4-6) 08/29/18 06:45 08/29/18 14:00 Gabapentin (Neurontin) 100 mg THREE TIMES A DAY PEG 08/29/18 13:00 09/13/18 12:59 08/29/18 12:16 Hydralazine HCl (Apresoline) 5 mg Q30M PRN IV SBP>160 OR___/DBP>90 OR___ 08/29/18 06:45 08/29/18 14:00 Isoniazid (Inh) 300 mg DAILY GT 08/30/18 09:00 09/13/18 08:59 Lactobacillus Acidophilus (Culturelle) 1 tab THREE TIMES A DAY GT 08/29/18 13:00 09/18/18 08:59 08/29/18 12:17 Meropenem 1 gm/ Sodium Chloride 55 ml @ 110 mls/hr Q8H IVPB 08/17/18 21:00 08/29/18 23:59 08/29/18 12:18 Metoprolol Tartrate (Lopressor) 50 mg Q12HR PEG 08/29/18 21:00 09/22/18 20:59 Metronidazole (Flagyl) 500 mg Q8HR NG 08/26/18 14:00 08/30/18 13:59 08/29/18 13:23 Midazolam HCl (Versed 2mg/2ml vial) 1 mg Q15M PRN IVP For Anxiety 08/29/18 06:45 08/29/18 14:00 Ondansetron HCl (Zofran) 4 mg Q1H PRN IVP Nausea & Vomiting 08/29/18 06:45 08/29/18 14:00 Pyridoxine HCl (Vitamin B6) 50 mg DAILY PEG 08/30/18 09:00 09/13/18 08:59 Sodium Hypochlorite (Dakin's Quarter Strength) 1 applic DAILY TOPIC 08/14/18 16:00 09/13/18 15:59 08/29/18 12:18 Sodium Chloride 1,000 ml @ 75 mls/hr [id number] IV 08/28/18 07:30 09/27/18 07:29 08/29/18 12:18 Vancomycin HCl (Firvanq) 250 mg FOUR TIMES A DAY GT 08/29/18 13:00 09/05/18 12:59 08/29/18 12:17 Vitamin B Complex/ Vit C/Folic Acid (Nephrovite) 1 tab DAILY GT 08/30/18 09:00 09/13/18 08:59 Zinc Sulfate (Zinc Sulfate) 220 mg DAILY PEG 08/30/18 09:00 09/13/18 08:59 Alma Elkins M.D. Aug 29, 2018 13:49
--- NOTE | 2018-08-29 15:18 | Cardiac Electrophysiology PN ---
Assessment/Plan Assessment/Plan 1. Atrial fibrillation with rapid ventricular response. In SR on metoprolol 50 mg bid, digoxin 0.125 and amiodarone 200 daily. Eliquis held for surgery 2. Fever and sepsis with Positive blood culture. IV antibiotics per Dr. Parker. 3. Dementia and psychosis. 4. 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 5. Sacral decubitus.S/P debridement 6. C. Diff colitis.On Flagyl 7. Hypotension. Resolved. 8. Hypokalemia, Being replaced 9. Anemia, S/P PRBC. 10. Dysphagia. S/P PEG DW RN Subjective Subjective In isolation in NAD. Had PEG today Objective Last 24 Hour Vital Signs Date Time Temp Pulse Resp B/P (MAP) Pulse Ox O2 Delivery O2 Flow Rate FiO2 08/29/18 12:00 98.3 71 20 122/78 (93) 96 08/29/18 11:46 66 08/29/18 09:31 66 18 100 08/29/18 09:28 60 18 100 08/29/18 09:00 Nasal Cannula 2.0 08/29/18 08:25 67 18 146/84 100 Nasal Cannula 4 08/29/18 08:20 98.0 65 18 129/87 100 Nasal Cannula 4 08/29/18 08:10 66 18 141/85 100 Nasal Cannula 4 08/29/18 08:00 69 08/29/18 08:00 97.7 66 20 136/82 (100) 100 08/29/18 07:55 65 18 176/87 100 Nasal Cannula 4 08/29/18 07:50 65 18 172/87 100 Nasal Cannula 4 08/29/18 07:45 97.7 62 18 157/90 100 Nasal Cannula 4 08/29/18 07:14 Nasal Cannula 2.0 28 08/29/18 07:14 96 Nasal Cannula 2.0 28 08/29/18 04:00 98.0 64 20 111/64 (80) 100 08/29/18 04:00 57 08/29/18 00:00 98.0 54 18 118/53 (74) 98 08/29/18 00:00 57 08/28/18 22:50 98 Nasal Cannula 2.0 28 08/28/18 22:50 Nasal Cannula 2.0 28 08/28/18 21:52 63 132/70 08/28/18 21:00 Nasal Cannula 2.0 08/28/18 20:00 60 08/28/18 20:00 98.2 63 20 132/70 (90) 99 08/28/18 16:00 97.5 66 19 99/62 (74) 99 08/28/18 15:50 62 Intake and Output 08/28/18 08/29/18 18:59 06:59 Intake Total 1254 ml Output Total 1175 ml 350 ml Balance -1175 ml 904 ml Free Water 60 ml IV Total 994 ml Tube Feeding 200 ml Output Urine Total 1175 ml 350 ml Laboratory Tests Test 08/28/18 21:20 08/28/18 23:16 08/29/18 06:50 08/29/18 14:05 Sodium Level 139 MMOL/L (136-145) 139 MMOL/L (136-145) 138 MMOL/L (136-145) Potassium Level 5.9 MMOL/L (3.5-5.1) #H 3.0 MMOL/L (3.5-5.1) L 3.1 MMOL/L (3.5-5.1) L Chloride Level 113 MMOL/L (98-107) H 109 MMOL/L (98-107) H 109 MMOL/L (98-107) H Carbon Dioxide Level 24 MMOL/L (21-32) 24 MMOL/L (21-32) 23 MMOL/L (21-32) Anion Gap 2 mmol/L (5-15) L 6 mmol/L (5-15) 6 mmol/L (5-15) Blood Urea Nitrogen 9 mg/dL (7-18) 9 mg/dL (7-18) 8 mg/dL (7-18) Creatinine 0.4 MG/DL (0.55-1.30) L 0.4 MG/DL (0.55-1.30) L 0.4 MG/DL (0.55-1.30) L Estimat Glomerular Filtration Rate > 60 mL/min (>60) > 60 mL/min (>60) > 60 mL/min (>60) Glucose Level 82 MG/DL (74-106) 81 MG/DL (74-106) 75 MG/DL (74-106) Calcium Level 6.8 MG/DL (8.5-10.1) L 7.4 MG/DL (8.5-10.1) L 7.5 MG/DL (8.5-10.1) L Magnesium Level 1.5 MG/DL (1.8-2.4) L 1.6 MG/DL (1.8-2.4) L 1.9 MG/DL (1.8-2.4) White Blood Count 11.5 K/UL (4.8-10.8) H Red Blood Count 3.04 M/UL (4.70-6.10) L Hemoglobin 9.2 G/DL (14.2-18.0) L Hematocrit 29.3 % (42.0-52.0) L Mean Corpuscular Volume 96 FL (80-99) Mean Corpuscular Hemoglobin 30.2 PG (27.0-31.0) Mean Corpuscular Hemoglobin Concent 31.4 G/DL (32.0-36.0) L Red Cell Distribution Width 16.3 % (11.6-14.8) H Platelet Count 197 K/UL (150-450) Mean Platelet Volume 6.0 FL (6.5-10.1) L Neutrophils (%) (Auto) 69.1 % (45.0-75.0) Lymphocytes (%) (Auto) 20.9 % (20.0-45.0) Monocytes (%) (Auto) 8.7 % (1.0-10.0) Eosinophils (%) (Auto) 0.6 % (0.0-3.0) Basophils (%) (Auto) 0.8 % (0.0-2.0) Digoxin Level 0.6 NG/ML (0.5-2.0) 0.5 NG/ML (0.5-2.0) Objective HEAD AND NECK: no JVD. LUNGS: Have coarse rhonchi. CARDIOVASCULAR: Irregular S1 and S2 with no gallop or murmur. ABDOMEN: Soft.PEG in place EXTREMITIES: Bilateral above-knee amputation. Amandeep Arora MD Aug 29, 2018 15:18
[2018-08-29] MEDS ORDERED: NS 275ml ONE (16:03)
[2018-08-29] MEDS ORDERED: Sterile Water Irrig 1000ml IRRIG ONE (16:03)
[2018-08-29] MEDS ORDERED: Tubing IV Secondary IV ONE (16:03)
--- NOTE | 2018-08-29 16:19 | Internal Med Progress Note ---
Subjective Date of Service: Aug 29, 2018 Physician Name RenettaDaniel Attending Physician Pedro Caban MD Current Medications Medications (Trade) Dose Ordered Sig/Erlin Route PRN Reason Start Time Stop Time Status Last Admin Dose Admin Acetaminophen (Tylenol) 650 mg Q4H PRN PEG Mild Pain (Pain Scale 1-3) 08/29/18 11:00 09/13/18 10:59 Acetaminophen (Tylenol) 650 mg Q6H PRN PEG Temp > 100.5 08/29/18 11:00 09/13/18 10:59 Albuterol/ Ipratropium (Albuterol/ Ipratropium) 3 ml Q4H PRN HHN sob 08/26/18 12:30 08/31/18 12:29 Amiodarone HCl (Cordarone) 200 mg DAILY PEG 08/30/18 09:00 09/19/18 08:59 Aripiprazole (Abilify) 5 mg BID ORAL 08/14/18 09:00 09/13/18 08:59 08/28/18 18:30 Bethanechol Chloride (Urecholine) 10 mg FOUR TIMES A DAY NG 08/27/18 21:00 09/26/18 20:59 08/29/18 12:16 Chlorhexidine Gluconate (Yari-Hex 2%) 1 applic DAILY@1999 TOPIC 08/22/18 20:00 09/21/18 19:59 08/28/18 22:22 Clonidine HCl (Catapres tab) 0.2 mg Q4H PRN GT For High Blood Pressure 08/26/18 09:45 09/21/18 01:44 Digoxin (Lanoxin) 0.125 mg DAILY PEG 08/30/18 09:00 09/19/18 08:59 Gabapentin (Neurontin) 100 mg THREE TIMES A DAY PEG 08/29/18 13:00 09/13/18 12:59 08/29/18 12:16 Isoniazid (Inh) 300 mg DAILY GT 08/30/18 09:00 09/13/18 08:59 Lactobacillus Acidophilus (Culturelle) 1 tab THREE TIMES A DAY GT 08/29/18 13:00 09/18/18 08:59 08/29/18 12:17 Metoprolol Tartrate (Lopressor) 50 mg Q12HR PEG 08/29/18 21:00 09/22/18 20:59 Metronidazole (Flagyl) 500 mg Q8HR NG 08/26/18 14:00 08/30/18 13:59 08/29/18 13:23 Pyridoxine HCl (Vitamin B6) 50 mg DAILY PEG 08/30/18 09:00 09/13/18 08:59 Sodium Hypochlorite (Dakin's Quarter Strength) 1 applic DAILY TOPIC 08/14/18 16:00 09/13/18 15:59 08/29/18 12:18 Sodium Chloride 1,000 ml @ 75 mls/hr [id number] IV 08/28/18 07:30 09/27/18 07:29 08/29/18 12:18 Vancomycin HCl (Firvanq) 250 mg FOUR TIMES A DAY GT 08/29/18 13:00 09/05/18 12:59 08/29/18 12:17 Vitamin B Complex/ Vit C/Folic Acid (Nephrovite) 1 tab DAILY GT 08/30/18 09:00 09/13/18 08:59 Zinc Sulfate (Zinc Sulfate) 220 mg DAILY PEG 08/30/18 09:00 09/13/18 08:59 Allergies: Coded Allergies: MILK (Verified Allergy, Unknown, 02/02/18) ROS Limited/Unobtainable: Yes Subjective 68 YO M admitted with fever and leukocytosis. Now Sepsis and C. Difficile colitis/diarrhea. Cover for Int Med-Dr Caban. Await PEG 08/29/18 Objective Last Vital Signs Date Time Temp Pulse Resp B/P (MAP) Pulse Ox O2 Delivery O2 Flow Rate FiO2 08/29/18 12:00 98.3 71 20 122/78 (93) 96 08/29/18 09:00 Nasal Cannula 2.0 08/29/18 07:14 28 Laboratory Tests Test 08/28/18 21:20 08/28/18 23:16 08/29/18 06:50 08/29/18 14:05 Sodium Level 139 MMOL/L (136-145) 139 MMOL/L (136-145) 138 MMOL/L (136-145) Potassium Level 5.9 MMOL/L (3.5-5.1) #H 3.0 MMOL/L (3.5-5.1) L 3.1 MMOL/L (3.5-5.1) L Chloride Level 113 MMOL/L (98-107) H 109 MMOL/L (98-107) H 109 MMOL/L (98-107) H Carbon Dioxide Level 24 MMOL/L (21-32) 24 MMOL/L (21-32) 23 MMOL/L (21-32) Anion Gap 2 mmol/L (5-15) L 6 mmol/L (5-15) 6 mmol/L (5-15) Blood Urea Nitrogen 9 mg/dL (7-18) 9 mg/dL (7-18) 8 mg/dL (7-18) Creatinine 0.4 MG/DL (0.55-1.30) L 0.4 MG/DL (0.55-1.30) L 0.4 MG/DL (0.55-1.30) L Estimat Glomerular Filtration Rate > 60 mL/min (>60) > 60 mL/min (>60) > 60 mL/min (>60) Glucose Level 82 MG/DL (74-106) 81 MG/DL (74-106) 75 MG/DL (74-106) Calcium Level 6.8 MG/DL (8.5-10.1) L 7.4 MG/DL (8.5-10.1) L 7.5 MG/DL (8.5-10.1) L Magnesium Level 1.5 MG/DL (1.8-2.4) L 1.6 MG/DL (1.8-2.4) L 1.9 MG/DL (1.8-2.4) White Blood Count 11.5 K/UL (4.8-10.8) H Red Blood Count 3.04 M/UL (4.70-6.10) L Hemoglobin 9.2 G/DL (14.2-18.0) L Hematocrit 29.3 % (42.0-52.0) L Mean Corpuscular Volume 96 FL (80-99) Mean Corpuscular Hemoglobin 30.2 PG (27.0-31.0) Mean Corpuscular Hemoglobin Concent 31.4 G/DL (32.0-36.0) L Red Cell Distribution Width 16.3 % (11.6-14.8) H Platelet Count 197 K/UL (150-450) Mean Platelet Volume 6.0 FL (6.5-10.1) L Neutrophils (%) (Auto) 69.1 % (45.0-75.0) Lymphocytes (%) (Auto) 20.9 % (20.0-45.0) Monocytes (%) (Auto) 8.7 % (1.0-10.0) Eosinophils (%) (Auto) 0.6 % (0.0-3.0) Basophils (%) (Auto) 0.8 % (0.0-2.0) Digoxin Level 0.6 NG/ML (0.5-2.0) 0.5 NG/ML (0.5-2.0) Intake and Output 08/28/18 08/29/18 19:00 07:00 Intake Total 115 ml 1214 ml Output Total 1175 ml 350 ml Balance -1060 ml 864 ml Free Water 60 ml IV Total 75 ml 994 ml Tube Feeding 40 ml 160 ml Output Urine Total 1175 ml 350 ml Objective General Appearance: WD/WN, no apparent distress, lethargic EENT: PERRL/EOMI, normal ENT inspection Neck: non-tender, normal alignment, supple, normal inspection Cardiovascular: normal peripheral pulses, normal rate, regular rhythm, no gallop/murmur, no JVD Respiratory/Chest: chest wall non-tender, lungs clear, normal breath sounds, no respiratory distress, no accessory muscle use Abdomen: normal bowel sounds, non tender, soft, no organomegaly, no mass Extremities: normal range of motion, non-tender Neurologic: paint dipper II-XII grossly normal Skin: normal pigmentation, warm/dry Assessment/Plan Problem List: (1) Sepsis Assessment & Plan: ESBL Proteus Mirablilis. S/P meropenem per ID. 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 (5) Renal failure (ARF), acute on chronic (6) Decubitus ulcer Assessment & Plan: Await debridement per surgery-see note (7) Bipolar II disorder (8) Leukocytosis (9) Clostridium difficile colitis Assessment & Plan: Continue oral vanco per ID (10) CVA (cerebral vascular accident) (11) Acute metabolic encephalopathy (12) HTN (hypertension) (13) CAD (coronary artery disease) (14) Atrial fibrillation Assessment & Plan: Continue eliquis (15) Pneumonia Assessment & Plan: Continue INH per ID-see note (16) Hypernatremia Assessment & Plan: continue D5NS + KCL (17) Hypokalemia Assessment & Plan: Cont D5NS +Kcl (18) Anemia Assessment & Plan: S/P transfusion 2 units PRBC (19) Protein-calorie malnutrition Assessment & Plan: Await PEG 08/29/18-see GI note Daniel Jackson MD Aug 29, 2018 16:19
[2018-08-29] MEDS: Acetaminophen 650mg/20.3ml PEG PRN (17:38)
[2018-08-29] MEDS: Dyna-Hex 2% Top Sol 2oz TOPIC SCH (20:47)
[2018-08-29] MEDS: Metoprolol Tartrate 50mg tab PEG SCH (20:48)
--- NOTE | 2018-08-29 21:06 | Pre-Procedure Note/Attestation ---
Pre-Procedure Note/Attestation Complete Prior to Procedure Planned Procedure: not applicable Procedure Narrative: EGD, PEG Indications for Procedure Pre-Operative Diagnosis: dyshagia Attestation I attest that I discussed the nature of the procedure; its benefits; risks and complications; and alternatives (and the risks and benefits of such alternatives ), prior to the procedure, with the patient (or the patient's legal automobile rental representative). I attest that, if there was a reasonable possibility of needing a blood transfusion, the patient (or the patient's legal automobile rental representative) was given the [facility] standardized written summary, pursuant to the Bennett Nazanin Blood Safety Act ([place] Health and Safety Code # 1645, as amended). I attest that I re-evaluated the patient just prior to the surgery and that there has been no change in the patient's H&P, except as documented below: Gina Petersen MD Aug 29, 2018 21:06
--- NOTE | 2018-08-29 21:07 | Endoscopy Procedure Note ---
Endoscopy Procedure Note General Indication for Procedure: dysogagia Procedures Performed: EGD, PEG Operative Findings/Diagnosis: multiple small duodenal erosions and mini ulcers Specimen: yes Pt Tolerated Procedure Well: Yes Estimated Blood Loss: minimal Anesthesia Anesthesiologist: kandy Contreras Anesthesia: moderate sedation Medications Medication Given: see anesthesia record Inserted Devices Implant(s) used?: No GI Core Measures 50 yrs or older w/o bx or poly: Not Applicable 10yrs. F/U not recommended: Not Applicable If not recommended, why?: Gina Petersen MD Aug 29, 2018 21:07
--- NOTE | 2018-08-29 21:09 | Brief Operative Note ---
Immediate Post Operative Note Operative Note Chief Complaint: dysphagia Pre-op Diagnosis: dyshagia Procedure: EGD, Entero, Bx, PEG Post-op Diagnosis: multiple small duodenal erosions and mini ulcers Surgeon: johann Anesthesiologist: Loi Contreras Anesthesia: MAC, moderate sedation Specimen: yes Complications: none Condition: stable Fluids: recorded Estimated Blood Loss: minimal Drains: none Implant(s) used?: No Gina Petersen MD Aug 29, 2018 21:08
--- NOTE | 2018-08-29 21:13 | General Progress Note ---
Assessment/Plan Assessment/Plan Assessment - C Difficile colitis - abnormal K, Mg - failed swallow eval - Malnutrition , NGT - s/p b/l AKA - anemia - bacteremia, leukocytosis - improving Recommendations - abx per ID - taper down as possible - probiotics - elevate HOB - replace electrolytes - re check - IVF - transfuse PRN - PEG today - Poor Px POST PROCEDURE ADDENDUM - multiple small duodenal erosions and mini ulcers - no active bleeding - PEG placed - Begin feeds tomorrow - PPI - Eliquis in am Subjective Allergies: Coded Allergies: MILK (Verified Allergy, Unknown, 02/02/18) Subjective above noted last dose of Eliquis Sat PEG planned for today electrolyte changes noted KCl and Mg given last night Objective Last 24 Hour Vital Signs Date Time Temp Pulse Resp B/P (MAP) Pulse Ox O2 Delivery O2 Flow Rate FiO2 08/29/18 20:48 67 150/80 08/29/18 20:36 97 Nasal Cannula 2.0 28 08/29/18 20:36 Nasal Cannula 2.0 28 08/29/18 20:00 98.2 67 18 150/80 (103) 100 08/29/18 16:00 72 08/29/18 16:00 98.6 78 20 131/79 (96) 94 08/29/18 12:00 98.3 71 20 122/78 (93) 96 08/29/18 11:46 66 08/29/18 09:31 66 18 100 08/29/18 09:28 60 18 100 08/29/18 09:00 Nasal Cannula 2.0 08/29/18 08:25 67 18 146/84 100 Nasal Cannula 4 08/29/18 08:20 98.0 65 18 129/87 100 Nasal Cannula 4 08/29/18 08:10 66 18 141/85 100 Nasal Cannula 4 08/29/18 08:00 69 08/29/18 08:00 97.7 66 20 136/82 (100) 100 08/29/18 07:55 65 18 176/87 100 Nasal Cannula 4 08/29/18 07:50 65 18 172/87 100 Nasal Cannula 4 08/29/18 07:45 97.7 62 18 157/90 100 Nasal Cannula 4 08/29/18 07:14 Nasal Cannula 2.0 28 08/29/18 07:14 96 Nasal Cannula 2.0 28 08/29/18 04:00 98.0 64 20 111/64 (80) 100 08/29/18 04:00 57 08/29/18 00:00 98.0 54 18 118/53 (74) 98 08/29/18 00:00 57 08/28/18 22:50 98 Nasal Cannula 2.0 28 08/28/18 22:50 Nasal Cannula 2.0 28 08/28/18 21:52 63 132/70 Intake and Output 08/28/18 08/29/18 19:00 07:00 Intake Total 115 ml 1214 ml Output Total 1175 ml 350 ml Balance -1060 ml 864 ml Free Water 60 ml IV Total 75 ml 994 ml Tube Feeding 40 ml 160 ml Output Urine Total 1175 ml 350 ml Laboratory Tests 08/28/18 21:20: Sodium Level 139, Potassium Level 5.9#H, Chloride Level 113H, Carbon Dioxide Level 24, Anion Gap 2L, Blood Urea Nitrogen 9, Creatinine 0.4L, Estimat Glomerular Filtration Rate > 60, Glucose Level 82, Calcium Level 6.8L, Magnesium Level 1.5L 08/28/18 23:16: Sodium Level 139, Potassium Level 3.0L, Chloride Level 109H, Carbon Dioxide Level 24, Anion Gap 6, Blood Urea Nitrogen 9, Creatinine 0.4L, Estimat Glomerular Filtration Rate > 60, Glucose Level 81, Calcium Level 7.4L, Magnesium Level 1.6L 08/29/18 06:50: Sodium Level 138, Potassium Level 3.1L, Chloride Level 109H, Carbon Dioxide Level 23, Anion Gap 6, Blood Urea Nitrogen 8, Creatinine 0.4L, Estimat Glomerular Filtration Rate > 60, Glucose Level 75, Calcium Level 7.5L, Magnesium Level 1.9, White Blood Count 11.5H, Red Blood Count 3.04L, Hemoglobin 9.2L, Hematocrit 29.3L, Mean Corpuscular Volume 96, Mean Corpuscular Hemoglobin 30.2, Mean Corpuscular Hemoglobin Concent 31.4L, Red Cell Distribution Width 16.3H, Platelet Count 197, Mean Platelet Volume 6.0L, Neutrophils (%) (Auto) 69.1, Lymphocytes (%) (Auto) 20.9, Monocytes (%) (Auto) 8.7, Eosinophils (%) ( Auto) 0.6, Basophils (%) (Auto) 0.8, Digoxin Level 0.6 08/29/18 14:05: Digoxin Level 0.5 Height (Feet): 6 Height (Inches): 0.40 Weight (Pounds): 161 Objective Elderly AA man NCAT supple CTA RRR Abd soft (+) Gina Graham MD Aug 29, 2018 21:13
--- NOTE | 2018-08-29 22:30 | Procedure Note ---
DATE OF PROCEDURE: 08/29/2018 GASTROENTEROLOGY PROCEDURE: PROCEDURE: Upper gastrointestinal endoscopy with enteroscopy and biopsy as well as gastrostomy tube placement. SURGEON: Gina Petersen M.D. ANESTHESIA: Please see the separate anesthesiologist notes for details. PRE-ENDOSCOPIC DIAGNOSES: Dysphagia and anemia. POST-ENDOSCOPIC DIAGNOSES: 1. Multiple small erosions, which were mini ulcers. 2. Status post random biopsy of the antrum. 3. Status post gastrostomy tube placement. DESCRIPTION OF PROCEDURE: The procedure, its risks, indications, alternatives, and possible complications were explained to the patient's family and informed consent was obtained. The patient was sedated in the supine position. A diagnostic upper endoscope was introduced through the oropharynx and advanced to the third portion of duodenum without difficulty. The endoscope was then gradually withdrawn and the mucosa examined carefully. Examination of the upper gastrointestinal mucosa revealed multiple small erosions and mini ulcerations ranging approximately 2 to 4 mm. The biopsies of the antrum were sent to Pathology for review. The location for placement of gastrostomy tube was identified by palpation and transillumination techniques. The outside skin was sterilely prepared, anesthetized, incised, and a trocar needle was used to place the gastrostomy tube using the pull technique. Position was verified endoscopically. The patient was left to recovery room in good condition. COMPLICATIONS: None. RECOMMENDATIONS: 1. Observe overnight. 2. Restart feeding tomorrow. 3. Restart blood thinners tomorrow. 4. G-tube care. Gina Petersen M.D. DR: CONCETTA JOB#: [id number] CC:
[2018-08-30] VITALS: BP 128/65
[2018-08-30] MEDS ORDERED: Pantoprazole Inj IVP SCH ×2 (00:30→09:00)
[2018-08-30 04:00] VITALS: BP 150/79
[2018-08-30] MEDS: metroNIDAZOLE 500mg tab NG SCH (05:51)
[2018-08-30 07:39] LABS: ANION GAP 5 mmol/L (5-15); BLOOD UREA NITROGEN 8 mg/dL (7-18); CALCIUM 6.8 MG/DL (8.5-10.1); CARBON DIOXIDE 22 MMOL/L (21-32); CHLORIDE 116 MMOL/L (98-107); CREATININE 0.4 MG/DL (0.55-1.30); SODIUM 143 MMOL/L (136-145)
[2018-08-30 07:43] LABS: POTASSIUM 6.3 MMOL/L (3.5-5.1)
[2018-08-30 08:00] VITALS: BP 126/80
[2018-08-30] MEDS ORDERED: Pyridoxine 50mg tab PEG SCH (09:00)
[2018-08-30] MEDS ORDERED: Zinc Sulfate 220mg cap PEG SCH (09:00)
[2018-08-30] MEDS ORDERED: Amiodarone 200mg tab PEG SCH (09:00)
[2018-08-30] MEDS ORDERED: Nephrovite tab (Rena-Vite) GT SCH (09:00)
[2018-08-30] MEDS ORDERED: Isoniazid 300mg tab GT SCH (09:00)
[2018-08-30] MEDS ORDERED: Digoxin 0.125mg tab PEG SCH (09:00)
[2018-08-30] MEDS: Bethanechol 10mg Tab NG SCH ×3 (09:51→17:38)
[2018-08-30] MEDS: Acetaminophen 650mg/20.3ml PEG PRN ×2 (09:54→14:01)
[2018-08-30] MEDS: Lactobacillus-GG tablet GT SCH ×3 (09:55→17:37)
[2018-08-30] MEDS: Dakin's 0.125% Soln (Quarter Strength) 16oz TOPIC SCH (09:56)
[2018-08-30] MEDS: Metoprolol Tartrate 50mg tab PEG SCH (10:05)
[2018-08-30] MEDS: Vancomycin oral 125mg/2.5ml GT SCH ×4 (10:16→21:44)
[2018-08-30 11:14] LABS: ANION GAP 6 mmol/L (5-15); BLOOD UREA NITROGEN 10 mg/dL (7-18); CALCIUM 7.6 MG/DL (8.5-10.1); CARBON DIOXIDE 23 MMOL/L (21-32); CHLORIDE 111 MMOL/L (98-107); CREATININE 0.4 MG/DL (0.55-1.30); POTASSIUM 3.3 MMOL/L (3.5-5.1); SODIUM 140 MMOL/L (136-145)
--- NOTE | 2018-08-30 11:29 | Internal Med Progress Note ---
Subjective Date of Service: Aug 30, 2018 Physician Name Jackson,Daniel Attending Physician Pedro Caban MD Current Medications Medications (Trade) Dose Ordered Sig/Erlin Route PRN Reason Start Time Stop Time Status Last Admin Dose Admin Acetaminophen (Tylenol) 650 mg Q4H PRN PEG Mild Pain (Pain Scale 1-3) 08/29/18 11:00 09/13/18 10:59 08/30/18 09:54 Acetaminophen (Tylenol) 650 mg Q6H PRN PEG Temp > 100.5 08/29/18 11:00 09/13/18 10:59 Albuterol/ Ipratropium (Albuterol/ Ipratropium) 3 ml Q4H PRN HHN sob 08/26/18 12:30 08/31/18 12:29 Amiodarone HCl (Cordarone) 200 mg DAILY PEG 08/30/18 09:00 09/19/18 08:59 08/30/18 09:54 Aripiprazole (Abilify) 5 mg BID ORAL 08/14/18 09:00 09/13/18 08:59 08/30/18 09:51 Bethanechol Chloride (Urecholine) 10 mg FOUR TIMES A DAY NG 08/27/18 21:00 09/26/18 20:59 08/30/18 09:51 Chlorhexidine Gluconate (Yari-Hex 2%) 1 applic DAILY@2000 TOPIC 08/22/18 20:00 09/21/18 19:59 08/29/18 20:47 Clonidine HCl (Catapres tab) 0.2 mg Q4H PRN GT For High Blood Pressure 08/26/18 09:45 09/21/18 01:44 Digoxin (Lanoxin) 0.125 mg DAILY PEG 08/30/18 09:00 09/19/18 08:59 08/30/18 09:55 Gabapentin (Neurontin) 100 mg THREE TIMES A DAY PEG 08/29/18 13:00 09/13/18 12:59 08/30/18 09:54 Isoniazid (Inh) 300 mg DAILY GT 08/30/18 09:00 09/13/18 08:59 08/30/18 09:50 Lactobacillus Acidophilus (Culturelle) 1 tab THREE TIMES A DAY GT 08/29/18 13:00 09/18/18 08:59 08/30/18 09:55 Metoprolol Tartrate (Lopressor) 50 mg Q12HR PEG 08/29/18 21:00 09/22/18 20:59 08/30/18 10:05 Metronidazole (Flagyl) 500 mg Q8HR NG 08/26/18 14:00 08/30/18 13:59 08/30/18 05:51 Pantoprazole (Protonix) 40 mg DAILY IVP 08/30/18 09:00 09/29/18 00:29 08/30/18 09:50 Pyridoxine HCl (Vitamin B6) 50 mg DAILY PEG 08/30/18 09:00 09/13/18 08:59 08/30/18 09:51 Sodium Hypochlorite (Dakin's Quarter Strength) 1 applic DAILY TOPIC 08/14/18 16:00 09/13/18 15:59 08/30/18 09:56 Vancomycin HCl (Firvanq) 250 mg FOUR TIMES A DAY GT 08/29/18 13:00 09/05/18 12:59 08/30/18 10:16 Vitamin B Complex/ Vit C/Folic Acid (Nephrovite) 1 tab DAILY GT 08/30/18 09:00 09/13/18 08:59 08/30/18 09:54 Zinc Sulfate (Zinc Sulfate) 220 mg DAILY PEG 08/30/18 09:00 09/13/18 08:59 08/30/18 09:54 Allergies: Coded Allergies: MILK (Verified Allergy, Unknown, 02/02/18) ROS Limited/Unobtainable: Yes Subjective 68 YO M admitted with fever and leukocytosis. Now Sepsis and C. Difficile colitis/diarrhea. Cover for Int Med-Dr Caban. S/P PEG 08/29/18 Objective Last Vital Signs Date Time Temp Pulse Resp B/P (MAP) Pulse Ox O2 Delivery O2 Flow Rate FiO2 08/30/18 10:05 67 126/80 08/30/18 08:00 98.7 18 100 08/30/18 07:10 Nasal Cannula 2.0 28 Laboratory Tests Test 08/29/18 14:05 08/30/18 05:30 08/30/18 10:24 Digoxin Level 0.5 NG/ML (0.5-2.0) Sodium Level 143 MMOL/L (136-145) 140 MMOL/L (136-145) Potassium Level 6.3 MMOL/L (3.5-5.1) #*H 3.3 MMOL/L (3.5-5.1) L Chloride Level 116 MMOL/L (98-107) H 111 MMOL/L (98-107) H Carbon Dioxide Level 22 MMOL/L (21-32) 23 MMOL/L (21-32) Anion Gap 5 mmol/L (5-15) 6 mmol/L (5-15) Blood Urea Nitrogen 8 mg/dL (7-18) 10 mg/dL (7-18) Creatinine 0.4 MG/DL (0.55-1.30) L 0.4 MG/DL (0.55-1.30) L Estimat Glomerular Filtration Rate > 60 mL/min (>60) > 60 mL/min (>60) Glucose Level 44 MG/DL (74-106) L 53 MG/DL (74-106) L Calcium Level 6.8 MG/DL (8.5-10.1) L 7.6 MG/DL (8.5-10.1) L Magnesium Level 1.6 MG/DL (1.8-2.4) L Intake and Output 08/29/18 08/30/18 19:00 07:00 Intake Total 640 ml 150 ml Output Total 200 ml 250 ml Balance 440 ml -100 ml Free Water 150 ml IV Total 640 ml Output Urine Total 250 ml Stool Total 200 ml Objective General Appearance: WD/WN, no apparent distress, lethargic EENT: PERRL/EOMI, normal ENT inspection Neck: non-tender, normal alignment, supple, normal inspection Cardiovascular: normal peripheral pulses, normal rate, regular rhythm, no gallop/murmur, no JVD Respiratory/Chest: chest wall non-tender, lungs clear, normal breath sounds, no respiratory distress, no accessory muscle use Abdomen: normal bowel sounds, non tender, soft, no organomegaly, no mass Extremities: normal range of motion, non-tender Neurologic: replenisher II-XII grossly normal Skin: normal pigmentation, warm/dry Assessment/Plan Problem List: (1) Sepsis Assessment & Plan: ESBL Proteus Mirablilis. S/P meropenem per ID. 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 (5) Renal failure (ARF), acute on chronic (6) Decubitus ulcer Assessment & Plan: Await debridement per surgery-see note (7) Bipolar II disorder (8) Leukocytosis (9) Clostridium difficile colitis Assessment & Plan: Continue oral vanco per ID (10) CVA (cerebral vascular accident) (11) Acute metabolic encephalopathy (12) HTN (hypertension) (13) CAD (coronary artery disease) (14) Atrial fibrillation Assessment & Plan: Continue eliquis (15) Pneumonia Assessment & Plan: Continue INH per ID-see note (16) Hypernatremia Assessment & Plan: continue D5NS + KCL (17) Hypokalemia Assessment & Plan: Cont D5NS +Kcl (18) Anemia Assessment & Plan: S/P transfusion 2 units PRBC (19) Protein-calorie malnutrition Assessment & Plan: Await PEG 08/29/18-see GI note (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
[2018-08-30 12:00] VITALS: BP 116/59
--- NOTE | 2018-08-30 12:14 | Pulmonology Progress Note ---
Assessment/Plan Problems: (1) Clostridium difficile colitis (2) Acute metabolic encephalopathy (3) Sepsis (4) Decubitus skin ulcer (5) UTI (urinary tract infection) (6) Anemia (7) CVA (cerebral vascular accident) Assessment/Plan unchanged mental status afebrile telemetry records reviewed, still tachy with PAC's and PVC's junctional rhythm on vancomycin PO check electrolytes continue current meds. dvt prophylaxis. got his PEG med/surg start imodium Subjective ROS Limited/Unobtainable: No Constitutional: Reports: no symptoms HEENT: Repors: no symptoms Respiratory: Reports: no symptoms Allergies: Coded Allergies: MILK (Verified Allergy, Unknown, 02/02/18) Objective Last 24 Hour Vital Signs Date Time Temp Pulse Resp B/P (MAP) Pulse Ox O2 Delivery O2 Flow Rate FiO2 08/30/18 10:05 67 126/80 08/30/18 09:55 67 08/30/18 08:00 98.7 67 18 126/80 (95) 100 08/30/18 07:26 63 08/30/18 07:10 Nasal Cannula 2.0 28 08/30/18 07:10 96 Nasal Cannula 2.0 28 08/30/18 04:00 47 08/30/18 04:00 97.9 57 18 150/79 (102) 94 08/30/18 00:00 98.0 52 18 128/65 (86) 99 08/30/18 00:00 48 08/29/18 21:00 Nasal Cannula 2.0 08/29/18 20:48 67 150/80 08/29/18 20:36 97 Nasal Cannula 2.0 28 08/29/18 20:36 Nasal Cannula 2.0 28 08/29/18 20:00 68 08/29/18 20:00 98.2 67 18 150/80 (103) 100 08/29/18 16:00 72 08/29/18 16:00 98.6 78 20 131/79 (96) 94 Intake and Output 08/29/18 08/30/18 18:59 06:59 Intake Total 715 ml 150 ml Output Total 200 ml 250 ml Balance 515 ml -100 ml Free Water 150 ml IV Total 715 ml Output Urine Total 250 ml Stool Total 200 ml General Appearance: WD/WN HEENT: normocephalic, atraumatic Respiratory/Chest: chest wall non-tender, lungs clear Cardiovascular: normal peripheral pulses, normal rate Abdomen: normal bowel sounds, soft, non tender Genitourinary: normal external genitalia Skin: no rash Laboratory Tests 08/29/18 14:05: Digoxin Level 0.5 08/30/18 05:30: Sodium Level 143, Potassium Level 6.3#*H, Chloride Level 116H, Carbon Dioxide Level 22, Anion Gap 5, Blood Urea Nitrogen 8, Creatinine 0.4L, Estimat Glomerular Filtration Rate > 60, Glucose Level 44L, Calcium Level 6.8L, Magnesium Level 1.6L 08/30/18 10:24: Sodium Level 140, Potassium Level 3.3L, Chloride Level 111H, Carbon Dioxide Level 23, Anion Gap 6, Blood Urea Nitrogen 10, Creatinine 0.4L, Estimat Glomerular Filtration Rate > 60, Glucose Level 53L, Calcium Level 7.6L Current Medications Medications (Trade) Dose Ordered Sig/Erlin Route PRN Reason Start Time Stop Time Status Last Admin Dose Admin Acetaminophen (Tylenol) 650 mg Q4H PRN PEG Mild Pain (Pain Scale 1-3) 08/29/18 11:00 09/13/18 10:59 08/30/18 09:54 Acetaminophen (Tylenol) 650 mg Q6H PRN PEG Temp > 100.5 08/29/18 11:00 09/13/18 10:59 Albuterol/ Ipratropium (Albuterol/ Ipratropium) 3 ml Q4H PRN HHN sob 08/26/18 12:30 08/31/18 12:29 Amiodarone HCl (Cordarone) 200 mg DAILY PEG 08/30/18 09:00 09/19/18 08:59 08/30/18 09:54 Aripiprazole (Abilify) 5 mg BID ORAL 08/14/18 09:00 09/13/18 08:59 08/30/18 09:51 Bethanechol Chloride (Urecholine) 10 mg FOUR TIMES A DAY NG 08/27/18 21:00 09/26/18 20:59 08/30/18 09:51 Chlorhexidine Gluconate (Yari-Hex 2%) 1 applic DAILY@2000 TOPIC 08/22/18 20:00 09/21/18 19:59 08/29/18 20:47 Clonidine HCl (Catapres tab) 0.2 mg Q4H PRN GT For High Blood Pressure 08/26/18 09:45 09/21/18 01:44 Digoxin (Lanoxin) 0.125 mg DAILY PEG 08/30/18 09:00 09/19/18 08:59 08/30/18 09:55 Gabapentin (Neurontin) 100 mg THREE TIMES A DAY PEG 08/29/18 13:00 09/13/18 12:59 08/30/18 09:54 Isoniazid (Inh) 300 mg DAILY GT 08/30/18 09:00 09/13/18 08:59 08/30/18 09:50 Lactobacillus Acidophilus (Culturelle) 1 tab THREE TIMES A DAY GT 08/29/18 13:00 09/18/18 08:59 08/30/18 09:55 Metoprolol Tartrate (Lopressor) 50 mg Q12HR PEG 08/29/18 21:00 09/22/18 20:59 08/30/18 10:05 Metronidazole (Flagyl) 500 mg Q8HR NG 08/26/18 14:00 08/30/18 13:59 08/30/18 05:51 Pantoprazole (Protonix) 40 mg DAILY IVP 08/30/18 09:00 09/29/18 00:29 08/30/18 09:50 Potassium Chloride (K-Dur) 40 meq ONCE GT 08/30/18 12:00 08/30/18 13:00 Potassium Chloride (K-Dur) 40 meq TWICE A DAY GT 08/30/18 18:00 09/29/18 17:59 Pyridoxine HCl (Vitamin B6) 50 mg DAILY PEG 08/30/18 09:00 09/13/18 08:59 08/30/18 09:51 Sodium Hypochlorite (Dakin's Quarter Strength) 1 applic DAILY TOPIC 08/14/18 16:00 09/13/18 15:59 08/30/18 09:56 Vancomycin HCl (Firvanq) 250 mg FOUR TIMES A DAY GT 08/29/18 13:00 09/05/18 12:59 08/30/18 10:16 Vitamin B Complex/ Vit C/Folic Acid (Nephrovite) 1 tab DAILY GT 08/30/18 09:00 09/13/18 08:59 08/30/18 09:54 Zinc Sulfate (Zinc Sulfate) 220 mg DAILY PEG 08/30/18 09:00 09/13/18 08:59 08/30/18 09:54 Minerva Montesinos MD Aug 30, 2018 12:14
--- NOTE | 2018-08-30 13:07 | Infectious Diseases Prog Note ---
Assessment/Plan Assessment/Plan Sepsis-2ry to bacteremia (likley from GI translocation ) -CT abd/p" Colonic mural thickening consistent with some form of colitis. No pneumatosis or extraluminal air. C Diff -Cdif toxin a/b + -Bcx 08/21 GNR, 08/21 ESBL Proteus mirabilis (S Ertapenem, Zosyn), 08/21 Group C strep ; 08/15 Bcx 07/24 Prevotella L . (R Clinda, Unasyn; S flagyl) ;08/17 Bcx 07/24 EUBACTERIUM LENTUM 08/21 Bcx Neg -u/a no pyuria -CXR: Suspect a small left pleural effusion. Mild basal atelectasis -influenza sc neg Fever, SP Leukocytosis , mild recurrent -08/28 CXR: There is decreased consolidation at the right lung base. There is some residual perihilar atelectasis. Hx of lung cavitary lesion/ PNA- suspect likely to aspiration; lower suspicion for TB and/or fungal etiologies -06/08 CT chest: * Interval resolution of the cavitary component associated with the previously described anterior right upper lobe opacity. It is slightly decreased in size and more nodular in appearance on today's exam. Additional patchy opacities in the posterior right upper lobe are also slightly decreased in size and appear more nodular (previously were groundglass). Findings likely related to evolving infectious or inflammatory lesions however continued follow-up is recommended to assure resolution/exclude the possibility of neoplastic etiologies. -CT c/a/p: 10 mm opacity in the peripheral anterolateral right upper lobe with small central cavitation. Patchy groundglass opacity in the posterior right upper lobe. Suspect that these represent inflammatory/infectious lesions, but neoplastic etiology of either is certainly possible. Large left and moderate right pleural effusions. Resultant compressive atelectasis of portions of the lower lobes. 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 Hypertension. Multiple decubiti ulcers (elbow, sacral) -not infected Bipolar disorder. Coronary artery disease. VRE and MRSA colonized Plan: -Continue PO Vancomycin # for Cdiff -if diarrhea not improving, may need to switch to Fidaxomicin -Cont INH for latent TB -08/29 SP Meropenem #13 -08/26 SP Flagyl #5 -08/17 SP Zosyn #3, Daptomycin # -08/15 SP Tamiflu #2, Ceftriaxone # -08/14 SP Cefepime and LEvaquin x1 -Monitor CBC/CMP, temperatures -wound care -aspiration precautions -Sx f/u Subjective Allergies: Coded Allergies: MILK (Verified Allergy, Unknown, 02/02/18) Subjective afebrile CBC cancelled stool output improved Objective Vital Signs Last 24 Hour Vital Signs Date Time Temp Pulse Resp B/P (MAP) Pulse Ox O2 Delivery O2 Flow Rate FiO2 08/30/18 10:05 67 126/80 08/30/18 09:55 67 08/30/18 09:00 Nasal Cannula 2.0 08/30/18 08:00 98.7 67 18 126/80 (95) 100 08/30/18 07:26 63 08/30/18 07:10 Nasal Cannula 2.0 28 08/30/18 07:10 96 Nasal Cannula 2.0 28 08/30/18 04:00 47 08/30/18 04:00 97.9 57 18 150/79 (102) 94 08/30/18 00:00 98.0 52 18 128/65 (86) 99 08/30/18 00:00 48 08/29/18 21:00 Nasal Cannula 2.0 08/29/18 20:48 67 150/80 08/29/18 20:36 97 Nasal Cannula 2.0 28 08/29/18 20:36 Nasal Cannula 2.0 28 08/29/18 20:00 68 08/29/18 20:00 98.2 67 18 150/80 (103) 100 08/29/18 16:00 72 08/29/18 16:00 98.6 78 20 131/79 (96) 94 Height (Feet): 6 Height (Inches): 0.40 Weight (Pounds): 164 Objective General appearance: alert, cooperative, no distress, appears stated age Head: Normocephalic, without obvious abnormality, atraumatic Eyes: conjunctivae/corneas clear. PERRL, EOM's intact. Fundi benign Throat: Lips, mucosa, and tongue normal. Teeth and gums normal Neck: supple, symmetrical, trachea midline, no adenopathy, thyroid: not enlarged, symmetric, no tenderness/mass/nodules, no carotid bruit and no JVD Lungs: clear to auscultation bilaterally Heart: regular rate and rhythm, S1, S2 normal, no murmur, click, rub or gallop Abdomen: soft, non-tender. Bowel sounds normal. No masses, no organomegaly Extremities: extremities normal, atraumatic, no cyanosis or edema/ s/p bilateral aka Pulses: 2+ and symmetric Skin: Skin color, texture, turgor normal. No rashes or lesions. multiple large decubitus ulcers. Neurologic: Grossly normal Laboratory Tests Test 08/29/18 14:05 08/30/18 05:30 08/30/18 10:24 Digoxin Level 0.5 NG/ML (0.5-2.0) Sodium Level 143 MMOL/L (136-145) 140 MMOL/L (136-145) Potassium Level 6.3 MMOL/L (3.5-5.1) #*H 3.3 MMOL/L (3.5-5.1) L Chloride Level 116 MMOL/L (98-107) H 111 MMOL/L (98-107) H Carbon Dioxide Level 22 MMOL/L (21-32) 23 MMOL/L (21-32) Anion Gap 5 mmol/L (5-15) 6 mmol/L (5-15) Blood Urea Nitrogen 8 mg/dL (7-18) 10 mg/dL (7-18) Creatinine 0.4 MG/DL (0.55-1.30) L 0.4 MG/DL (0.55-1.30) L Estimat Glomerular Filtration Rate > 60 mL/min (>60) > 60 mL/min (>60) Glucose Level 44 MG/DL (74-106) L 53 MG/DL (74-106) L Calcium Level 6.8 MG/DL (8.5-10.1) L 7.6 MG/DL (8.5-10.1) L Magnesium Level 1.6 MG/DL (1.8-2.4) L Current Medications Medications (Trade) Dose Ordered Sig/Erlin Route PRN Reason Start Time Stop Time Status Last Admin Dose Admin Acetaminophen (Tylenol) 650 mg Q4H PRN PEG Mild Pain (Pain Scale 1-3) 08/29/18 11:00 09/13/18 10:59 08/30/18 09:54 Acetaminophen (Tylenol) 650 mg Q6H PRN PEG Temp > 100.5 08/29/18 11:00 09/13/18 10:59 Albuterol/ Ipratropium (Albuterol/ Ipratropium) 3 ml Q4H PRN HHN sob 08/26/18 12:30 08/31/18 12:29 Amiodarone HCl (Cordarone) 200 mg DAILY PEG 08/30/18 09:00 09/19/18 08:59 08/30/18 09:54 Aripiprazole (Abilify) 5 mg BID ORAL 08/14/18 09:00 09/13/18 08:59 08/30/18 09:51 Bethanechol Chloride (Urecholine) 10 mg FOUR TIMES A DAY NG 08/27/18 21:00 09/26/18 20:59 08/30/18 13:00 Chlorhexidine Gluconate (Yari-Hex 2%) 1 applic DAILY@2000 TOPIC 08/22/18 20:00 09/21/18 19:59 08/29/18 20:47 Clonidine HCl (Catapres tab) 0.2 mg Q4H PRN GT For High Blood Pressure 08/26/18 09:45 09/21/18 01:44 Digoxin (Lanoxin) 0.125 mg DAILY PEG 08/30/18 09:00 09/19/18 08:59 08/30/18 09:55 Isoniazid (Inh) 300 mg DAILY GT 08/30/18 09:00 09/13/18 08:59 08/30/18 09:50 Lactobacillus Acidophilus (Culturelle) 1 tab THREE TIMES A DAY GT 08/29/18 13:00 09/18/18 08:59 08/30/18 13:00 Loperamide HCl (Imodium) 2 mg EVERY 8 HOURS NG 08/30/18 14:00 09/29/18 13:59 Metoprolol Tartrate (Lopressor) 25 mg Q12HR PEG 08/30/18 21:00 09/22/18 20:59 Potassium Chloride (K-Dur) 40 meq TWICE A DAY GT 08/30/18 18:00 09/29/18 17:59 Sodium Hypochlorite (Dakin's Quarter Strength) 1 applic DAILY TOPIC 08/14/18 16:00 09/13/18 15:59 08/30/18 09:56 Vancomycin HCl (Firvanq) 250 mg FOUR TIMES A DAY GT 08/29/18 13:00 09/05/18 12:59 08/30/18 10:16 Vitamin B Complex/ Vit C/Folic Acid (Nephrovite) 1 tab DAILY GT 08/30/18 09:00 09/13/18 08:59 08/30/18 09:54 Alma Elkins M.D. Aug 30, 2018 13:07
--- NOTE | 2018-08-30 13:44 | Surgery Progress Note ---
Surgery Progress Note Subjective Additional Comments Patient seen and examined at bedside not very cooperative with exam. Good nursing staff care with turning patient. C. difficile positive. Leukocytosis. PEG functional. Objective Last 24 Hour Vital Signs Date Time Temp Pulse Resp B/P (MAP) Pulse Ox O2 Delivery O2 Flow Rate FiO2 08/30/18 10:05 67 126/80 08/30/18 09:55 67 08/30/18 09:00 Nasal Cannula 2.0 08/30/18 08:00 98.7 67 18 126/80 (95) 100 08/30/18 07:26 63 08/30/18 07:10 Nasal Cannula 2.0 28 08/30/18 07:10 96 Nasal Cannula 2.0 28 08/30/18 04:00 47 08/30/18 04:00 97.9 57 18 150/79 (102) 94 08/30/18 00:00 98.0 52 18 128/65 (86) 99 08/30/18 00:00 48 08/29/18 21:00 Nasal Cannula 2.0 08/29/18 20:48 67 150/80 08/29/18 20:36 97 Nasal Cannula 2.0 28 08/29/18 20:36 Nasal Cannula 2.0 28 08/29/18 20:00 68 08/29/18 20:00 98.2 67 18 150/80 (103) 100 08/29/18 16:00 72 08/29/18 16:00 98.6 78 20 131/79 (96) 94 I&O Intake and Output 08/29/18 08/30/18 18:59 06:59 Intake Total 715 ml 150 ml Output Total 200 ml 250 ml Balance 515 ml -100 ml Free Water 150 ml IV Total 715 ml Output Urine Total 250 ml Stool Total 200 ml Dressing: saturated Wound: other Drains: other Cardiovascular: RSR Respiratory: decreased breath sounds Abdomen: soft, non-tender, present bowel sounds, non-distended Extremities: other Laboratory Tests Test 08/29/18 14:05 08/30/18 05:30 08/30/18 10:24 Digoxin Level 0.5 NG/ML (0.5-2.0) Sodium Level 143 MMOL/L (136-145) 140 MMOL/L (136-145) Potassium Level 6.3 MMOL/L (3.5-5.1) #*H 3.3 MMOL/L (3.5-5.1) L Chloride Level 116 MMOL/L (98-107) H 111 MMOL/L (98-107) H Carbon Dioxide Level 22 MMOL/L (21-32) 23 MMOL/L (21-32) Anion Gap 5 mmol/L (5-15) 6 mmol/L (5-15) Blood Urea Nitrogen 8 mg/dL (7-18) 10 mg/dL (7-18) Creatinine 0.4 MG/DL (0.55-1.30) L 0.4 MG/DL (0.55-1.30) L Estimat Glomerular Filtration Rate > 60 mL/min (>60) > 60 mL/min (>60) Glucose Level 44 MG/DL (74-106) L 53 MG/DL (74-106) L Calcium Level 6.8 MG/DL (8.5-10.1) L 7.6 MG/DL (8.5-10.1) L Magnesium Level 1.6 MG/DL (1.8-2.4) L Plan Problems: (1) Sepsis Assessment & Plan: IV abx trend labs will monitor wounds spoke with daughter. consent obtained. s/p wound cleaning/debridement s/p PEG C diff treatment per ID needs electrolytes replaced (2) Decubitus skin ulcer Assessment & Plan: Pt presented on admission with multiple full thickness pressure injuries. Full thickness pressure injury to L elbow.Base of wound wound with 25% fibrinous slough,75% pink granulation noted.(+) maceration along borders. erythema without elevation in skin temp periwound(L)1.5cm x (W)1.8cm x(D)0.3cm. Full thickness pressure injury R trochanter .Base of wound with pink granulation.Edges adherent to base of wound .No odor or exudate noted.Darker skin tone without induration periwound. (L)4.5cm x (W)6.3cm x (D) 3cm.Undermining 12-3 by 3cm @12o'clock. Full thickness pressure injury to R ischium .Wound is malodorous.90% soft necrosis,10% pink noted at base of wound ,(+) epibole along edges .Periwound darker in skin tone and is indurated.(L)8.4cm x (W)4.3cm (D)2.5cm .Tunneling at 1o'clock by 3.6cm ,tunneling @5o'clock by 6.3cm. Full thickness sacral pressure injury with 80% soft necrosis ,20% pink granulation .Wound is malodorous with small amt brown exudate (L)8.5cm x (W)5cm x (D)2.5cm ,undermining 8-5 by 4.7cm @1o'clock. wounds with gross drainage poor nutritional status. prognosis concerning Tx.Plan: Cleanse R trochanter with Dakin's 0.125% candelaria. Loosely pack with Dakin's soaked kerlix .Cover with Optifoam drsg TID and prn. Cleanse R Ischial wound with Dakin's 0.125% candelaria.Loosely pack with Dakin's soaked kerlix. Cavilon Skin Barrier periwound. Cover with Optifoam drsg TID and prn. Cleanse Sacral wound with dakin's 0.125% candelaria.Loosely pack with Dakin's soaked kerlix.Cavilon Skin Barrier periwound.Cover with Optifoam drsg TID and prn. Cleanse L elbow with Dakin's 0.125% candelaria. Apply Dakin's moist 2x2 gauze. Cover with Optifoam drsg TID and prn. Quartet Air fluidized mattress. Reposition L side to back at least every 2hours or as tolerated. /- Patient has been improving with repeat blood cultures were without growth thus far. Spoke with patient's daughter yesterday explained that we will proceed with debridement which she and the family is consented to. Patient still unable to consent given his current medical condition and mental status. Patient was made comfortable at the bedside with the assistance of the wound care team and nursing staff we began evaluating and improving patient's wounds. The left elbow was evaluated and identified to have a 1-2 cm full-thickness injury with palpable bone no erythema or cellulitis not requiring any debridement at this time. Wound care and dressings have been going well for this wound. We will continue with wound care and dressings as above. The sacral wound was evaluated and identified to have a open portion stage IV as well as a necrotic eschar needed excision. Using a #10 scalpel and forceps the necrotic eschar was excised so that the entirety of the wound could be evaluated and cared for. There was significant soft slough noted in the wound bed and minor debridement was done but given the fact the patient is on Eliquis vision was made to forego complete debridement until safe time where patient can be off anticoagulation. The right issue wound was evaluated and noted to be fairly malodorous with soft tissue necrosis. There is near purulent drainage coming from this wound and some tracking was identified in the inferior aspect of the wound. Wound was completely evaluated and tracking noted. Wound was irrigated and cleansed until clean. Minor debridement of the necrotic wound edges was performed to allow for better evaluation of the underlying tissues. Following this Dakin's packing and dressing as noted above was continued. The right trochanter wound was identified and very clean with good granulation tissue identified not requiring further debridement at this time. Above wound care orders were continued as they have been slowly improving. There is significant amount of slough left and some debris that requires excision but needs to be done when patient is off Eliquis which at this time is not recommended. Goyo Osuna Aug 30, 2018 13:44
[2018-08-30 16:00] VITALS: BP 113/57
--- NOTE | 2018-08-30 16:43 | Cardiology Progress Note ---
Assessment/Plan Status: stable Assessment/Plan Assessment/Plan Assessment/Plan 1. Atrial fibrillation with rapid ventricular response. In SR on metoprolol 50 mg bid, digoxin 0.125 and amiodarone 200 daily. restart ELIQUI 2. Fever and sepsis with Positive blood culture. IV antibiotics per Dr. Parker. 3. Dementia and psychosis. 4. 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 5. Sacral decubitus.S/P debridement 6. C. Diff colitis.On Flagyl 7. Hypotension. Resolved. 8. Hypokalemia, Being replaced 9. Anemia, S/P PRBC. 10. Dysphagia. S/P PEG Subjective Cardiovascular: Reports: no symptoms Respiratory: Reports: no symptoms Gastrointestinal/Abdominal: Reports: no symptoms Genitourinary: Reports: no symptoms Subjective Coverage for [place] Objective Last 24 Hour Vital Signs Date Time Temp Pulse Resp B/P (MAP) Pulse Ox O2 Delivery O2 Flow Rate FiO2 08/30/18 13:37 48 08/30/18 12:00 98.1 64 22 116/59 (78) 100 08/30/18 10:05 67 126/80 08/30/18 09:55 67 08/30/18 09:00 Nasal Cannula 2.0 08/30/18 08:00 98.7 67 18 126/80 (95) 100 08/30/18 07:26 63 08/30/18 07:10 Nasal Cannula 2.0 28 08/30/18 07:10 96 Nasal Cannula 2.0 28 08/30/18 04:00 47 08/30/18 04:00 97.9 57 18 150/79 (102) 94 08/30/18 00:00 98.0 52 18 128/65 (86) 99 08/30/18 00:00 48 08/29/18 21:00 Nasal Cannula 2.0 08/29/18 20:48 67 150/80 08/29/18 20:36 97 Nasal Cannula 2.0 28 08/29/18 20:36 Nasal Cannula 2.0 28 08/29/18 20:00 68 08/29/18 20:00 98.2 67 18 150/80 (103) 100 General Appearance: no apparent distress, alert EENT: PERRL/EOMI, normal ENT inspection, TMs normal, pharynx normal Neck: non-tender, normal alignment, supple, normal inspection, no JVD Rhythm: NSR Cardiovascular: normal peripheral pulses, normal rate, regular rhythm Respiratory/Chest: chest wall non-tender, lungs clear, normal breath sounds Abdomen: normal bowel sounds, non tender, no mass Extremities: normal range of motion, non-tender, normal inspection 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: 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, abnormal gait Intake and Output 08/29/18 08/30/18 18:59 06:59 Intake Total 715 ml 150 ml Output Total 200 ml 250 ml Balance 515 ml -100 ml Free Water 150 ml IV Total 715 ml Output Urine Total 250 ml Stool Total 200 ml Laboratory Tests Test 08/30/18 05:30 08/30/18 10:24 Sodium Level 143 MMOL/L (136-145) 140 MMOL/L (136-145) Potassium Level 6.3 MMOL/L (3.5-5.1) #*H 3.3 MMOL/L (3.5-5.1) L Chloride Level 116 MMOL/L (98-107) H 111 MMOL/L (98-107) H Carbon Dioxide Level 22 MMOL/L (21-32) 23 MMOL/L (21-32) Anion Gap 5 mmol/L (5-15) 6 mmol/L (5-15) Blood Urea Nitrogen 8 mg/dL (7-18) 10 mg/dL (7-18) Creatinine 0.4 MG/DL (0.55-1.30) L 0.4 MG/DL (0.55-1.30) L Estimat Glomerular Filtration Rate > 60 mL/min (>60) > 60 mL/min (>60) Glucose Level 44 MG/DL (74-106) L 53 MG/DL (74-106) L Calcium Level 6.8 MG/DL (8.5-10.1) L 7.6 MG/DL (8.5-10.1) L Magnesium Level 1.6 MG/DL (1.8-2.4) L Vinny Tobin MD Aug 30, 2018 16:43
[2018-08-30 20:00] VITALS: BP 144/77
--- NOTE | 2018-08-30 20:48 | General Progress Note ---
Assessment/Plan Assessment/Plan Assessment - C Difficile colitis - abnormal lytes - failed swallow eval - s/p PEG - s/p b/l AKA - anemia - duodenal ulcers - bacteremia, leukocytosis - improving Recommendations - abx per ID - taper down as possible - probiotics - elevate HOB - replace electrolytes - IVF - transfuse PRN - PPI - TF - anticoagulation - d/c Bethanecol - Poor Px Subjective Allergies: Coded Allergies: MILK (Verified Allergy, Unknown, 02/02/18) Subjective above noted s/p PEG orders given to restart TF orders given to restart Eliquis Objective Last 24 Hour Vital Signs Date Time Temp Pulse Resp B/P (MAP) Pulse Ox O2 Delivery O2 Flow Rate FiO2 08/30/18 16:00 97.7 53 23 113/57 (75) 99 08/30/18 13:37 48 08/30/18 12:00 98.1 64 22 116/59 (78) 100 08/30/18 10:05 67 126/80 08/30/18 09:55 67 08/30/18 09:00 Nasal Cannula 2.0 08/30/18 08:00 98.7 67 18 126/80 (95) 100 08/30/18 07:26 63 08/30/18 07:10 Nasal Cannula 2.0 28 08/30/18 07:10 96 Nasal Cannula 2.0 28 08/30/18 04:00 47 08/30/18 04:00 97.9 57 18 150/79 (102) 94 08/30/18 00:00 98.0 52 18 128/65 (86) 99 08/30/18 00:00 48 08/29/18 21:00 Nasal Cannula 2.0 08/29/18 20:48 67 150/80 Intake and Output 08/29/18 08/30/18 19:00 07:00 Intake Total 640 ml 150 ml Output Total 200 ml 250 ml Balance 440 ml -100 ml Free Water 150 ml IV Total 640 ml Output Urine Total 250 ml Stool Total 200 ml Laboratory Tests 08/30/18 05:30: Sodium Level 143, Potassium Level 6.3#*H, Chloride Level 116H, Carbon Dioxide Level 22, Anion Gap 5, Blood Urea Nitrogen 8, Creatinine 0.4L, Estimat Glomerular Filtration Rate > 60, Glucose Level 44L, Calcium Level 6.8L, Magnesium Level 1.6L 08/30/18 10:24: Sodium Level 140, Potassium Level 3.3L, Chloride Level 111H, Carbon Dioxide Level 23, Anion Gap 6, Blood Urea Nitrogen 10, Creatinine 0.4L, Estimat Glomerular Filtration Rate > 60, Glucose Level 53L, Calcium Level 7.6L Height (Feet): 6 Height (Inches): 0.40 Weight (Pounds): 164 Objective Elderly AA man NCAT supple CTA RRR Abd soft (+) Gina Graham MD Aug 30, 2018 20:48
[2018-08-30] MEDS ORDERED: Metoprolol 25mg tab PEG SCH (21:00)
[2018-08-30] MEDS ORDERED: Eliquis 2.5mg tablet NG SCH (21:00)
[2018-08-30] MEDS: Dyna-Hex 2% Top Sol 2oz TOPIC SCH (21:01)
[2018-08-31] VITALS (7 sets, daily range): BP systolic 107–153; BP diastolic 51–78
[2018-08-31] MEDS ORDERED: Acetaminophen 650mg/20.3ml PEG PRN ×2 (02:02)
[2018-08-31] MEDS ORDERED: cloNIDine 0.2mg Tab GT PRN (02:04)
[2018-08-31] MEDS ORDERED: Albuterol/Ipratropium 3ml neb HHN PRN (02:05)
[2018-08-31 04:52] LABS: BASOPHILS % (AUTO) 0.5 % (0.0-2.0); EOSINOPHILS % (AUTO) 0.2 % (0.0-3.0); HEMATOCRIT 28.8 % (42.0-52.0); HEMOGLOBIN 9.1 G/DL (14.2-18.0); LYMPHOCYTES % (AUTO) 10.4 % (20.0-45.0); MEAN CORPUSCULAR VOLUME 96 FL (80-99); MONOCYTES % (AUTO) 7.7 % (1.0-10.0); NEUTROPHILS % (AUTO) 81.2 % (45.0-75.0); PLATELET COUNT 188 K/UL (150-450); RED BLOOD COUNT 2.99 M/UL (4.70-6.10); RED CELL DISTRIBUTION WIDTH 16.5 % (11.6-14.8); WHITE BLOOD COUNT 12.6 K/UL (4.8-10.8)
[2018-08-31 05:15] LABS: INR 1.6 (0.9-1.1)
[2018-08-31 05:18] LABS: ALANINE AMINOTRANSFERASE 11 U/L (12-78); ALBUMIN 0.6 G/DL (3.4-5.0); ALKALINE PHOSPHATASE 100 U/L (46-116); ANION GAP 10 mmol/L (5-15); ASPARTATE AMINO TRANSFERASE 17 U/L (15-37); BILIRUBIN,TOTAL 0.2 MG/DL (0.2-1.0); BLOOD UREA NITROGEN 7 mg/dL (7-18); CARBON DIOXIDE 18 MMOL/L (21-32); CHLORIDE 119 MMOL/L (98-107); CREATININE 0.4 MG/DL (0.55-1.30); SODIUM 146 MMOL/L (136-145)
[2018-08-31 05:22] LABS: POTASSIUM 2.5 MMOL/L (3.5-5.1)
[2018-08-31 05:23] LABS: CALCIUM 5.6 MG/DL (8.5-10.1)
[2018-08-31 05:39] LABS: PHOSPHORUS 1.2 MG/DL (2.5-4.9)
[2018-08-31] MEDS: Eliquis 2.5mg tablet NG SCH ×2 (09:00→20:59)
[2018-08-31] MEDS: Isoniazid 300mg tab GT SCH (09:00)
[2018-08-31] MEDS: Metoprolol 25mg tab PEG SCH ×2 (09:00→20:59)
[2018-08-31] MEDS: Lactobacillus-GG tablet GT SCH ×3 (09:00→17:39)
[2018-08-31] MEDS ORDERED: Vancomycin oral 125mg/2.5ml GT SCH (09:00)
[2018-08-31] MEDS: Digoxin 0.125mg tab PEG SCH (09:00)
[2018-08-31] MEDS: Amiodarone 200mg tab PEG SCH (09:00)
[2018-08-31] MEDS ORDERED: Nephrovite tab (Rena-Vite) GT SCH (09:00)
[2018-08-31] MEDS: Dakin's 0.125% Soln (Quarter Strength) 16oz TOPIC SCH (10:35)
--- NOTE | 2018-08-31 11:20 | Infectious Diseases Prog Note ---
Assessment/Plan Assessment/Plan Sepsis-2ry to bacteremia (likley from GI translocation ) -CT abd/p" Colonic mural thickening consistent with some form of colitis. No pneumatosis or extraluminal air. C Diff , ongoing diarrhea -Cdif toxin a/b + -Bcx 08/21 GNR, 08/21 ESBL Proteus mirabilis (S Ertapenem, Zosyn), 08/21 Group C strep ; 08/15 Bcx 07/24 Prevotella L . (R Clinda, Unasyn; S flagyl) ;08/17 Bcx 07/24 EUBACTERIUM LENTUM 08/21 Bcx Neg -u/a no pyuria -CXR: Suspect a small left pleural effusion. Mild basal atelectasis -influenza sc neg Fever, SP Leukocytosis , mild recurrent -08/28 CXR: There is decreased consolidation at the right lung base. There is some residual perihilar atelectasis. Hx of lung cavitary lesion/ PNA- suspect likely to aspiration; lower suspicion for TB and/or fungal etiologies -06/08 CT chest: * Interval resolution of the cavitary component associated with the previously described anterior right upper lobe opacity. It is slightly decreased in size and more nodular in appearance on today's exam. Additional patchy opacities in the posterior right upper lobe are also slightly decreased in size and appear more nodular (previously were groundglass). Findings likely related to evolving infectious or inflammatory lesions however continued follow-up is recommended to assure resolution/exclude the possibility of neoplastic etiologies. -CT c/a/p: 10 mm opacity in the peripheral anterolateral right upper lobe with small central cavitation. Patchy groundglass opacity in the posterior right upper lobe. Suspect that these represent inflammatory/infectious lesions, but neoplastic etiology of either is certainly possible. Large left and moderate right pleural effusions. Resultant compressive atelectasis of portions of the lower lobes. 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 Hypertension. Multiple decubiti ulcers (elbow, sacral) -not infected Bipolar disorder. Coronary artery disease. VRE and MRSA colonized Plan: -Switch PO Vancomycin #17 to PO Fidaxomicin given ongoing diarrhea despite oral vancomycin -Cont INH for latent TB -08/29 SP Meropenem #13 -08/26 SP Flagyl #5 -08/17 SP Zosyn #3, Daptomycin #3 -08/15 SP Tamiflu #2, Ceftriaxone # -08/14 SP Cefepime and LEvaquin x1 -Monitor CBC/CMP, temperatures -wound care -aspiration precautions -Sx f/u Subjective Allergies: Coded Allergies: MILK (Verified Allergy, Unknown, 02/02/18) Subjective afebrile wbc increased continues to have diarrhea Objective Vital Signs Last 24 Hour Vital Signs Date Time Temp Pulse Resp B/P (MAP) Pulse Ox O2 Delivery O2 Flow Rate FiO2 08/31/18 09:45 95 Nasal Cannula 2.0 28 08/31/18 09:45 Nasal Cannula 2.0 28 08/31/18 09:00 65 110/51 08/31/18 09:00 65 08/31/18 08:00 98.1 65 19 110/51 (70) 93 08/31/18 04:00 97.8 65 20 116/68 (84) 95 08/31/18 01:30 97.7 64 18 112/64 (80) 95 08/31/18 00:00 98.3 58 20 153/77 (102) 98 08/30/18 21:02 56 144/77 08/30/18 21:00 Nasal Cannula 2.0 08/30/18 20:00 98.1 56 20 144/77 (99) 96 08/30/18 20:00 Nasal Cannula 2.0 28 08/30/18 20:00 97 Nasal Cannula 2.0 28 08/30/18 16:00 51 08/30/18 16:00 97.7 53 23 113/57 (75) 99 08/30/18 13:37 48 08/30/18 12:00 98.1 64 22 116/59 (78) 100 Height (Feet): 6 Height (Inches): 0.40 Weight (Pounds): 164 Objective General appearance: alert, cooperative, no distress, appears stated age Head: Normocephalic, without obvious abnormality, atraumatic Eyes: conjunctivae/corneas clear. PERRL, EOM's intact. Fundi benign Throat: Lips, mucosa, and tongue normal. Teeth and gums normal Neck: supple, symmetrical, trachea midline, no adenopathy, thyroid: not enlarged, symmetric, no tenderness/mass/nodules, no carotid bruit and no JVD Lungs: clear to auscultation bilaterally Heart: regular rate and rhythm, S1, S2 normal, no murmur, click, rub or gallop Abdomen: soft, non-tender. Bowel sounds normal. No masses, no organomegaly Extremities: extremities normal, atraumatic, no cyanosis or edema/ s/p bilateral aka Pulses: 2+ and symmetric Skin: Skin color, texture, turgor normal. No rashes or lesions. multiple large decubitus ulcers. Neurologic: Grossly normal Laboratory Tests Test 08/31/18 04:50 08/31/18 05:00 Prothrombin Time 16.3 SEC (9.30-11.50) H Prothromb Time International Ratio 1.6 (0.9-1.1) H Activated Partial Thromboplast Time 40 SEC (23-33) H White Blood Count 12.6 K/UL (4.8-10.8) H Red Blood Count 2.99 M/UL (4.70-6.10) L Hemoglobin 9.1 G/DL (14.2-18.0) L Hematocrit 28.8 % (42.0-52.0) L Mean Corpuscular Volume 96 FL (80-99) Mean Corpuscular Hemoglobin 30.4 PG (27.0-31.0) Mean Corpuscular Hemoglobin Concent 31.6 G/DL (32.0-36.0) L Red Cell Distribution Width 16.5 % (11.6-14.8) H Platelet Count 188 K/UL (150-450) Mean Platelet Volume 5.4 FL (6.5-10.1) L Neutrophils (%) (Auto) 81.2 % (45.0-75.0) H Lymphocytes (%) (Auto) 10.4 % (20.0-45.0) L Monocytes (%) (Auto) 7.7 % (1.0-10.0) Eosinophils (%) (Auto) 0.2 % (0.0-3.0) Basophils (%) (Auto) 0.5 % (0.0-2.0) Sodium Level 146 MMOL/L (136-145) H Potassium Level 2.5 MMOL/L (3.5-5.1) *L Chloride Level 119 MMOL/L (98-107) H Carbon Dioxide Level 18 MMOL/L (21-32) L Anion Gap 10 mmol/L (5-15) Blood Urea Nitrogen 7 mg/dL (7-18) Creatinine 0.4 MG/DL (0.55-1.30) L Estimat Glomerular Filtration Rate > 60 mL/min (>60) Glucose Level 101 MG/DL (74-106) Calcium Level 5.6 MG/DL (8.5-10.1) #*L Phosphorus Level 1.2 MG/DL (2.5-4.9) L Magnesium Level 1.1 MG/DL (1.8-2.4) L Total Bilirubin 0.2 MG/DL (0.2-1.0) Aspartate Amino Transf (AST/SGOT) 17 U/L (15-37) Alanine Aminotransferase (ALT/SGPT) 11 U/L (12-78) L Alkaline Phosphatase 100 U/L (46-116) Total Protein 3.8 G/DL (6.4-8.2) L Albumin 0.6 G/DL (3.4-5.0) L Globulin 3.2 g/dL Current Medications Medications (Trade) Dose Ordered Sig/Erlin Route PRN Reason Start Time Stop Time Status Last Admin Dose Admin Acetaminophen (Tylenol) 650 mg Q4H PRN PEG Mild Pain (Pain Scale 1-3) 08/31/18 02:02 09/13/18 02:01 Acetaminophen (Tylenol) 650 mg Q6H PRN PEG Temp > 100.5 08/31/18 02:02 09/13/18 02:01 Amiodarone HCl (Cordarone) 200 mg DAILY PEG 08/31/18 09:00 09/19/18 08:59 08/31/18 09:00 Apixaban (Eliquis) 2.5 mg Q12HR NG 08/31/18 09:00 09/29/18 20:59 08/31/18 09:00 Aripiprazole (Abilify) 5 mg BID ORAL 08/31/18 09:00 09/13/18 08:59 08/31/18 09:00 Chlorhexidine Gluconate (Yari-Hex 2%) 1 applic DAILY@1999 TOPIC 08/31/18 20:00 09/21/18 19:59 Clonidine HCl (Catapres tab) 0.2 mg Q4H PRN GT For High Blood Pressure 08/31/18 02:04 09/21/18 02:03 Digoxin (Lanoxin) 0.125 mg DAILY PEG 08/31/18 09:00 09/19/18 08:59 08/31/18 09:00 Isoniazid (Inh) 300 mg DAILY GT 08/31/18 09:00 09/13/18 08:59 08/31/18 09:00 Lactobacillus Acidophilus (Culturelle) 1 tab THREE TIMES A DAY GT 08/31/18 09:00 09/18/18 08:59 08/31/18 09:00 Loperamide HCl (Imodium) 2 mg EVERY 8 HOURS NG 08/31/18 06:00 09/29/18 13:59 08/31/18 06:13 Metoprolol Tartrate (Lopressor) 25 mg Q12HR PEG 08/31/18 09:00 09/22/18 20:59 08/31/18 09:00 Potassium Chloride (K-Dur) 40 meq ONCE ORAL 08/31/18 17:00 08/31/18 18:00 Potassium Chloride (K-Dur) 40 meq ONCE ORAL 09/01/18 01:00 09/01/18 02:00 Potassium Chloride (K-Dur) 40 meq TWICE A DAY GT 09/01/18 09:00 10/01/18 08:59 Sodium Hypochlorite (Dakin's Quarter Strength) 1 applic DAILY TOPIC 08/31/18 09:00 09/13/18 15:59 08/31/18 10:35 Vancomycin HCl (Firvanq) 250 mg FOUR TIMES A DAY GT 08/31/18 09:00 09/05/18 12:59 08/31/18 09:00 Vitamin B Complex/ Vit C/Folic Acid (Nephrovite) 1 tab DAILY GT 08/31/18 09:00 09/13/18 08:59 08/31/18 09:00 Alma Elkins M.D. Aug 31, 2018 11:20
--- NOTE | 2018-08-31 13:35 | Pulmonology Progress Note ---
Assessment/Plan Problems: (1) Clostridium difficile colitis (2) Acute metabolic encephalopathy (3) Sepsis (4) Decubitus skin ulcer (5) UTI (urinary tract infection) (6) Anemia (7) CVA (cerebral vascular accident) Assessment/Plan unchanged mental status afebrile telemetry records reviewed, still tachy with PAC's and PVC's junctional rhythm on vancomycin PO check electrolytes continue current meds. dvt prophylaxis. got his PEG K, phos, mg supplement med/surg start imodium Subjective ROS Limited/Unobtainable: No Constitutional: Reports: no symptoms HEENT: Repors: no symptoms Respiratory: Reports: no symptoms Allergies: Coded Allergies: MILK (Verified Allergy, Unknown, 02/02/18) Objective Last 24 Hour Vital Signs Date Time Temp Pulse Resp B/P (MAP) Pulse Ox O2 Delivery O2 Flow Rate FiO2 08/31/18 09:45 95 Nasal Cannula 2.0 28 08/31/18 09:45 Nasal Cannula 2.0 28 08/31/18 09:00 65 110/51 08/31/18 09:00 65 08/31/18 08:00 98.1 65 19 110/51 (70) 93 08/31/18 04:00 97.8 65 20 116/68 (84) 95 08/31/18 01:30 97.7 64 18 112/64 (80) 95 08/31/18 00:00 98.3 58 20 153/77 (102) 98 08/30/18 21:02 56 144/77 08/30/18 21:00 Nasal Cannula 2.0 08/30/18 20:00 98.1 56 20 144/77 (99) 96 08/30/18 20:00 Nasal Cannula 2.0 28 08/30/18 20:00 97 Nasal Cannula 2.0 28 08/30/18 16:00 51 08/30/18 16:00 97.7 53 23 113/57 (75) 99 08/30/18 13:37 48 Intake and Output 08/30/18 08/31/18 19:00 07:00 Intake Total 90 ml 180 ml Output Total 800 ml Balance -710 ml 180 ml Free Water 50 ml Tube Feeding 40 ml 180 ml Stool Total 800 ml HEENT: normocephalic, anicteric Respiratory/Chest: chest wall non-tender, lungs clear Cardiovascular: normal peripheral pulses, regular rhythm Abdomen: normal bowel sounds, no organomegaly Genitourinary: normal external genitalia Skin: no rash Laboratory Tests 08/31/18 04:50: Prothrombin Time 16.3H, Prothromb Time International Ratio 1.6H, Activated Partial Thromboplast Time 40H 08/31/18 05:00: White Blood Count 12.6H, Red Blood Count 2.99L, Hemoglobin 9.1L, Hematocrit 28.8L, Mean Corpuscular Volume 96, Mean Corpuscular Hemoglobin 30.4, Mean Corpuscular Hemoglobin Concent 31.6L, Red Cell Distribution Width 16.5H, Platelet Count 188, Mean Platelet Volume 5.4L, Neutrophils (%) (Auto) 81.2H, Lymphocytes (%) (Auto) 10.4L, Monocytes (%) (Auto) 7.7, Eosinophils (%) (Auto) 0.2, Basophils (%) (Auto) 0.5, Sodium Level 146H, Potassium Level 2.5*L, Chloride Level 119H, Carbon Dioxide Level 18L, Anion Gap 10, Blood Urea Nitrogen 7, Creatinine 0.4L, Estimat Glomerular Filtration Rate > 60, Glucose Level 101, Calcium Level 5.6#*L, Phosphorus Level 1.2L, Magnesium Level 1.1L, Total Bilirubin 0.2, Aspartate Amino Transf (AST/SGOT) 17, Alanine Aminotransferase (ALT/SGPT) 11L, Alkaline Phosphatase 100, Total Protein 3.8L, Albumin 0.6L, Globulin 3.2 Current Medications Medications (Trade) Dose Ordered Sig/Erlin Route PRN Reason Start Time Stop Time Status Last Admin Dose Admin Acetaminophen (Tylenol) 650 mg Q4H PRN PEG Mild Pain (Pain Scale 1-3) 08/31/18 02:02 09/13/18 02:01 Acetaminophen (Tylenol) 650 mg Q6H PRN PEG Temp > 100.5 08/31/18 02:02 09/13/18 02:01 Amiodarone HCl (Cordarone) 200 mg DAILY PEG 08/31/18 09:00 09/19/18 08:59 08/31/18 09:00 Apixaban (Eliquis) 2.5 mg Q12HR NG 08/31/18 09:00 09/29/18 20:59 08/31/18 09:00 Aripiprazole (Abilify) 5 mg BID ORAL 08/31/18 09:00 09/13/18 08:59 08/31/18 09:00 Chlorhexidine Gluconate (Yari-Hex 2%) 1 applic DAILY@1999 TOPIC 08/31/18 20:00 09/21/18 19:59 Clonidine HCl (Catapres tab) 0.2 mg Q4H PRN GT For High Blood Pressure 08/31/18 02:04 09/21/18 02:03 Digoxin (Lanoxin) 0.125 mg DAILY PEG 08/31/18 09:00 09/19/18 08:59 08/31/18 09:00 Fidaxomicin (Dificid) 200 mg EVERY 12 HOURS ORAL 08/31/18 21:00 09/07/18 20:59 Isoniazid (Inh) 300 mg DAILY GT 08/31/18 09:00 09/13/18 08:59 08/31/18 09:00 Lactobacillus Acidophilus (Culturelle) 1 tab THREE TIMES A DAY GT 08/31/18 09:00 09/18/18 08:59 08/31/18 09:00 Loperamide HCl (Imodium) 2 mg EVERY 8 HOURS NG 08/31/18 06:00 09/29/18 13:59 08/31/18 06:13 Metoprolol Tartrate (Lopressor) 25 mg Q12HR PEG 08/31/18 09:00 09/22/18 20:59 08/31/18 09:00 Potassium Chloride (K-Dur) 40 meq ONCE ORAL 08/31/18 17:00 08/31/18 18:00 Potassium Chloride (K-Dur) 40 meq ONCE ORAL 09/01/18 01:00 09/01/18 02:00 Potassium Chloride (K-Dur) 40 meq TWICE A DAY GT 09/01/18 09:00 10/01/18 08:59 Sodium Hypochlorite (Dakin's Quarter Strength) 1 applic DAILY TOPIC 08/31/18 09:00 09/13/18 15:59 08/31/18 10:35 Vitamin B Complex/ Vit C/Folic Acid (Nephrovite) 1 tab DAILY GT 08/31/18 09:00 09/13/18 08:59 08/31/18 09:00 Minerva Montesinos MD Aug 31, 2018 13:34
--- NOTE | 2018-08-31 14:21 | Surgery Progress Note ---
Surgery Progress Note Subjective Additional Comments no acute events. labs noted. comfortable. resting. afebrile, HD stable. Objective Last 24 Hour Vital Signs Date Time Temp Pulse Resp B/P (MAP) Pulse Ox O2 Delivery O2 Flow Rate FiO2 08/31/18 09:45 95 Nasal Cannula 2.0 28 08/31/18 09:45 Nasal Cannula 2.0 28 08/31/18 09:00 65 110/51 08/31/18 09:00 65 08/31/18 08:00 98.1 65 19 110/51 (70) 93 08/31/18 04:00 97.8 65 20 116/68 (84) 95 08/31/18 01:30 97.7 64 18 112/64 (80) 95 08/31/18 00:00 98.3 58 20 153/77 (102) 98 08/30/18 21:02 56 144/77 08/30/18 21:00 Nasal Cannula 2.0 08/30/18 20:00 98.1 56 20 144/77 (99) 96 08/30/18 20:00 Nasal Cannula 2.0 28 08/30/18 20:00 97 Nasal Cannula 2.0 28 08/30/18 16:00 51 08/30/18 16:00 97.7 53 23 113/57 (75) 99 I&O Intake and Output 08/30/18 08/31/18 19:00 07:00 Intake Total 90 ml 180 ml Output Total 800 ml Balance -710 ml 180 ml Free Water 50 ml Tube Feeding 40 ml 180 ml Stool Total 800 ml Dressing: other Wound: other Drains: other Cardiovascular: RSR Respiratory: decreased breath sounds Abdomen: soft, non-tender, non-distended Extremities: other Laboratory Tests Test 08/31/18 04:50 08/31/18 05:00 Prothrombin Time 16.3 SEC (9.30-11.50) H Prothromb Time International Ratio 1.6 (0.9-1.1) H Activated Partial Thromboplast Time 40 SEC (23-33) H White Blood Count 12.6 K/UL (4.8-10.8) H Red Blood Count 2.99 M/UL (4.70-6.10) L Hemoglobin 9.1 G/DL (14.2-18.0) L Hematocrit 28.8 % (42.0-52.0) L Mean Corpuscular Volume 96 FL (80-99) Mean Corpuscular Hemoglobin 30.4 PG (27.0-31.0) Mean Corpuscular Hemoglobin Concent 31.6 G/DL (32.0-36.0) L Red Cell Distribution Width 16.5 % (11.6-14.8) H Platelet Count 188 K/UL (150-450) Mean Platelet Volume 5.4 FL (6.5-10.1) L Neutrophils (%) (Auto) 81.2 % (45.0-75.0) H Lymphocytes (%) (Auto) 10.4 % (20.0-45.0) L Monocytes (%) (Auto) 7.7 % (1.0-10.0) Eosinophils (%) (Auto) 0.2 % (0.0-3.0) Basophils (%) (Auto) 0.5 % (0.0-2.0) Sodium Level 146 MMOL/L (136-145) H Potassium Level 2.5 MMOL/L (3.5-5.1) *L Chloride Level 119 MMOL/L (98-107) H Carbon Dioxide Level 18 MMOL/L (21-32) L Anion Gap 10 mmol/L (5-15) Blood Urea Nitrogen 7 mg/dL (7-18) Creatinine 0.4 MG/DL (0.55-1.30) L Estimat Glomerular Filtration Rate > 60 mL/min (>60) Glucose Level 101 MG/DL (74-106) Calcium Level 5.6 MG/DL (8.5-10.1) #*L Phosphorus Level 1.2 MG/DL (2.5-4.9) L Magnesium Level 1.1 MG/DL (1.8-2.4) L Total Bilirubin 0.2 MG/DL (0.2-1.0) Aspartate Amino Transf (AST/SGOT) 17 U/L (15-37) Alanine Aminotransferase (ALT/SGPT) 11 U/L (12-78) L Alkaline Phosphatase 100 U/L (46-116) Total Protein 3.8 G/DL (6.4-8.2) L Albumin 0.6 G/DL (3.4-5.0) L Globulin 3.2 g/dL Plan Problems: (1) Sepsis Assessment & Plan: IV abx trend labs will monitor wounds spoke with daughter. consent obtained. s/p wound cleaning/debridement s/p PEG C diff treatment per ID needs electrolytes replaced (2) Decubitus skin ulcer Assessment & Plan: Pt presented on admission with multiple full thickness pressure injuries. Full thickness pressure injury to L elbow.Base of wound wound with 25% fibrinous slough,75% pink granulation noted.(+) maceration along borders. erythema without elevation in skin temp periwound(L)1.5cm x (W)1.8cm x(D)0.3cm. Full thickness pressure injury R trochanter .Base of wound with pink granulation.Edges adherent to base of wound .No odor or exudate noted.Darker skin tone without induration periwound. (L)4.5cm x (W)6.3cm x (D) 3cm.Undermining 12-3 by 3cm @12o'clock. Full thickness pressure injury to R ischium .Wound is malodorous.90% soft necrosis,10% pink noted at base of wound ,(+) epibole along edges .Periwound darker in skin tone and is indurated.(L)8.4cm x (W)4.3cm (D)2.5cm .Tunneling at 1o'clock by 3.6cm ,tunneling @5o'clock by 6.3cm. Full thickness sacral pressure injury with 80% soft necrosis ,20% pink granulation .Wound is malodorous with small amt brown exudate (L)8.5cm x (W)5cm x (D)2.5cm ,undermining 8-5 by 4.7cm @1o'clock. wounds with gross drainage poor nutritional status. prognosis concerning follow up wounds eval with team performed and L elbow wound with 60% mixed yellow /pope slough with surrounding pink granulation (L)4.5cm x (W)2.7cm. Dark skin tone periwound. Minimal serous exudate without odor noted to drsg upon removal. Second wound proximally but in close proximity to L elbow granular with trace biofilm (L)2.3cm x (W)2.4cm.Edges adherent and flat .No odor or exudate noted. Full thickness pressure injury to R trochanter with pink granulation. Small area of bone visible at base of wound. Edges adherent and flat. No odor or exudate noted (L)3.5cm x (W)6cm x (D)3.1cm. Dark skin tone periwound. Full thickness pressure injury R ischium with tunneling at 6o'clock with 80% loose -Soft necrosis at base of wound with surrounding pink granulation along inner wall of wound.#2 small areas along borders with soft loosening necrosis. No odor noted .Periwound less indurated but with darker skin tone. (L)7cm x (W) 2.9 x(D)5cm ,tunneling at 6o'clock by 5cm. Full thickness sacral pressure injury with undermining, 75% mixed soft necrosis and slough, 25% pink granulation. Small amt serosanguineous exudate without odor noted .Edges are mostly adherent with scattered areas that are non- adherent with yellow slough. (L)10cm x (W)8.2cm x (D)2.3cm ,undermining 6-3 by 4.2cm @12o'clock. Resolving partial thickness wound L hip base of wound is moist -viable .Edges adherent to base of wound .Periwound without fluctuance or induration. (L)3.9cm x(W)3cm. L ischial partial thickness wound resolving.Base of wound is pink -moist .(+) maceration long borders. Periwound without erythema or induration (L)2cm x (W) 1.2cm. No odor or exudate noted. Tx.Plan: Cleanse R trochanter with Dakin's 0.125% candelaria. Loosely pack with Dakin's soaked kerlix .Cover with Optifoam drsg TID and prn. Cleanse R Ischial wound with Dakin's 0.125% candelaria.Loosely pack with Dakin's soaked kerlix. Cavilon Skin Barrier periwound. Cover with Optifoam drsg TID and prn. Cleanse Sacral wound with dakin's 0.125% candelaria.Loosely pack with Dakin's soaked kerlix.Cavilon Skin Barrier periwound.Cover with Optifoam drsg TID and prn. Cleanse L elbow with Dakin's 0.125% candelaria. Apply Dakin's moist 2x2 gauze. Cover with Optifoam drsg TID and prn. Quartet Air fluidized mattress. Reposition L side to back at least every 2hours or as tolerated. Goyo Osuna Aug 31, 2018 14:21
[2018-08-31] MEDS ORDERED: Sodium Phosphate 30 MM in NS 275 ML IV ONE (15:00)
--- NOTE | 2018-08-31 15:38 | Consultation ---
Consult Note Consult Note asked to eval for multi electrolyte and chemistry abnormality management chart reviewed patient examined has orozco has GT bilateral LE amputee Assessment/Plan Low Phos Low K Low Mag C deficil colitis Sepsis Decubiti Anemia CVA At fib K , Mag , Phos supplement IV for now as patient has diarrhea Aldactone Monitor labs per consultants discussed with Ruy Gar MD Aug 31, 2018 15:38
--- NOTE | 2018-08-31 18:07 | Cardiac Electrophysiology PN ---
Assessment/Plan Assessment/Plan 1. Atrial fibrillation with rapid ventricular response. In SR on metoprolol 50 mg bid, digoxin 0.125, amiodarone 200 daily and Eliquis held for surgery 2. Fever and sepsis with Positive blood culture. IV antibiotics per Dr. Parker. 3. Dementia and psychosis. 4. 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 5. Sacral decubitus.S/P debridement 6. C. Diff colitis.On Flagyl 7. Hypotension. Resolved. 8. Hypokalemia, Being replaced 9. Anemia, S/P PRBC. 10. Dysphagia. S/P PEG DW RN Subjective Subjective In isolation in NAD. RN at bedside Objective Last 24 Hour Vital Signs Date Time Temp Pulse Resp B/P (MAP) Pulse Ox O2 Delivery O2 Flow Rate FiO2 08/31/18 16:00 98.2 60 18 107/58 (74) 93 08/31/18 12:00 98.2 60 17 130/60 (83) 93 08/31/18 09:45 95 Nasal Cannula 2.0 28 08/31/18 09:45 Nasal Cannula 2.0 28 08/31/18 09:00 65 110/51 08/31/18 09:00 65 08/31/18 09:00 Nasal Cannula 2.0 08/31/18 08:00 98.1 65 19 110/51 (70) 93 08/31/18 04:00 97.8 65 20 116/68 (84) 95 08/31/18 01:30 97.7 64 18 112/64 (80) 95 08/31/18 00:00 98.3 58 20 153/77 (102) 98 08/30/18 21:02 56 144/77 08/30/18 21:00 Nasal Cannula 2.0 08/30/18 20:00 98.1 56 20 144/77 (99) 96 08/30/18 20:00 Nasal Cannula 2.0 28 08/30/18 20:00 97 Nasal Cannula 2.0 28 Intake and Output 08/30/18 08/31/18 18:59 06:59 Intake Total 90 ml 180 ml Output Total 800 ml Balance -710 ml 180 ml Free Water 50 ml Tube Feeding 40 ml 180 ml Stool Total 800 ml Laboratory Tests Test 08/31/18 04:50 08/31/18 05:00 Prothrombin Time 16.3 SEC (9.30-11.50) H Prothromb Time International Ratio 1.6 (0.9-1.1) H Activated Partial Thromboplast Time 40 SEC (23-33) H White Blood Count 12.6 K/UL (4.8-10.8) H Red Blood Count 2.99 M/UL (4.70-6.10) L Hemoglobin 9.1 G/DL (14.2-18.0) L Hematocrit 28.8 % (42.0-52.0) L Mean Corpuscular Volume 96 FL (80-99) Mean Corpuscular Hemoglobin 30.4 PG (27.0-31.0) Mean Corpuscular Hemoglobin Concent 31.6 G/DL (32.0-36.0) L Red Cell Distribution Width 16.5 % (11.6-14.8) H Platelet Count 188 K/UL (150-450) Mean Platelet Volume 5.4 FL (6.5-10.1) L Neutrophils (%) (Auto) 81.2 % (45.0-75.0) H Lymphocytes (%) (Auto) 10.4 % (20.0-45.0) L Monocytes (%) (Auto) 7.7 % (1.0-10.0) Eosinophils (%) (Auto) 0.2 % (0.0-3.0) Basophils (%) (Auto) 0.5 % (0.0-2.0) Sodium Level 146 MMOL/L (136-145) H Potassium Level 2.5 MMOL/L (3.5-5.1) *L Chloride Level 119 MMOL/L (98-107) H Carbon Dioxide Level 18 MMOL/L (21-32) L Anion Gap 10 mmol/L (5-15) Blood Urea Nitrogen 7 mg/dL (7-18) Creatinine 0.4 MG/DL (0.55-1.30) L Estimat Glomerular Filtration Rate > 60 mL/min (>60) Glucose Level 101 MG/DL (74-106) Calcium Level 5.6 MG/DL (8.5-10.1) #*L Phosphorus Level 1.2 MG/DL (2.5-4.9) L Magnesium Level 1.1 MG/DL (1.8-2.4) L Total Bilirubin 0.2 MG/DL (0.2-1.0) Aspartate Amino Transf (AST/SGOT) 17 U/L (15-37) Alanine Aminotransferase (ALT/SGPT) 11 U/L (12-78) L Alkaline Phosphatase 100 U/L (46-116) C-Reactive Protein, Quantitative 6.0 mg/dL (0.00-0.90) H Total Protein 3.8 G/DL (6.4-8.2) L Albumin 0.6 G/DL (3.4-5.0) L Globulin 3.2 g/dL Objective HEAD AND NECK: No JVD. LUNGS: Have coarse rhonchi. CARDIOVASCULAR: Irregular S1 and S2 with no gallop or murmur. ABDOMEN: Soft.PEG in place EXTREMITIES: Bilateral above-knee amputation. Amandeep Arora MD Aug 31, 2018 18:07
--- NOTE | 2018-08-31 19:03 | Internal Med Progress Note ---
Subjective Date of Service: Aug 31, 2018 Physician Name Daniel Jackson Attending Physician Pedro Caban MD Current Medications Medications (Trade) Dose Ordered Sig/Erlin Route PRN Reason Start Time Stop Time Status Last Admin Dose Admin Acetaminophen (Tylenol) 650 mg Q4H PRN PEG Mild Pain (Pain Scale 1-3) 08/31/18 02:02 09/13/18 02:01 Acetaminophen (Tylenol) 650 mg Q6H PRN PEG Temp > 100.5 08/31/18 02:02 09/13/18 02:01 Amiodarone HCl (Cordarone) 200 mg DAILY PEG 08/31/18 09:00 09/19/18 08:59 08/31/18 09:00 Apixaban (Eliquis) 2.5 mg Q12HR NG 08/31/18 09:00 09/29/18 20:59 08/31/18 09:00 Aripiprazole (Abilify) 5 mg BID ORAL 08/31/18 09:00 09/13/18 08:59 08/31/18 17:39 Chlorhexidine Gluconate (Yari-Hex 2%) 1 applic DAILY@2000 TOPIC 08/31/18 20:00 09/21/18 19:59 Clonidine HCl (Catapres Tab) 0.1 mg Q4H PRN GT For High Blood Pressure 08/31/18 15:44 09/21/18 15:43 Digoxin (Lanoxin) 0.125 mg DAILY PEG 08/31/18 09:00 09/19/18 08:59 08/31/18 09:00 Fidaxomicin (Dificid) 200 mg EVERY 12 HOURS ORAL 08/31/18 21:00 09/07/18 20:59 Isoniazid (Inh) 300 mg DAILY GT 08/31/18 09:00 09/13/18 08:59 08/31/18 09:00 Lactobacillus Acidophilus (Culturelle) 1 tab THREE TIMES A DAY GT 08/31/18 09:00 09/18/18 08:59 08/31/18 17:39 Loperamide HCl (Imodium) 2 mg EVERY 8 HOURS NG 08/31/18 06:00 09/29/18 13:59 08/31/18 14:07 Magnesium Sulfate 100 ml @ 100 mls/hr Q1H IVPB 08/31/18 18:00 08/31/18 21:59 08/31/18 17:41 Metoprolol Tartrate (Lopressor) 25 mg Q12HR PEG 08/31/18 09:00 09/22/18 20:59 08/31/18 09:00 Potassium Phosphate 30 mm/ Sodium Chloride 285 ml @ 47.5 mls/hr ONCE ONCE IV 08/31/18 22:00 09/01/18 03:59 Potassium Chloride 100 ml @ 100 mls/hr Q1H IVPB 08/31/18 21:00 09/01/18 00:59 Sodium Hypochlorite (Dakin's Quarter Strength) 1 applic DAILY TOPIC 08/31/18 09:00 09/13/18 15:59 08/31/18 10:35 Sodium Phosphate 30 mm/Sodium Chloride 285 ml @ 47.5 mls/hr ONCE ONCE IV 08/31/18 15:00 08/31/18 20:59 08/31/18 15:32 Spironolactone (Aldactone) 25 mg EVERY 12 HOURS GT 08/31/18 21:00 09/30/18 20:59 Allergies: Coded Allergies: MILK (Verified Allergy, Unknown, 02/02/18) ROS Limited/Unobtainable: Yes Subjective 68 YO M admitted with fever and leukocytosis. Now Sepsis and C. Difficile colitis/diarrhea. Cover for Int Med-Dr Caban. S/P PEG 08/29/18 Objective Last Vital Signs Date Time Temp Pulse Resp B/P (MAP) Pulse Ox O2 Delivery O2 Flow Rate FiO2 08/31/18 16:00 98.2 60 18 107/58 (74) 93 08/31/18 09:45 Nasal Cannula 2.0 28 Laboratory Tests Test 08/31/18 04:50 08/31/18 05:00 Prothrombin Time 16.3 SEC (9.30-11.50) H Prothromb Time International Ratio 1.6 (0.9-1.1) H Activated Partial Thromboplast Time 40 SEC (23-33) H White Blood Count 12.6 K/UL (4.8-10.8) H Red Blood Count 2.99 M/UL (4.70-6.10) L Hemoglobin 9.1 G/DL (14.2-18.0) L Hematocrit 28.8 % (42.0-52.0) L Mean Corpuscular Volume 96 FL (80-99) Mean Corpuscular Hemoglobin 30.4 PG (27.0-31.0) Mean Corpuscular Hemoglobin Concent 31.6 G/DL (32.0-36.0) L Red Cell Distribution Width 16.5 % (11.6-14.8) H Platelet Count 188 K/UL (150-450) Mean Platelet Volume 5.4 FL (6.5-10.1) L Neutrophils (%) (Auto) 81.2 % (45.0-75.0) H Lymphocytes (%) (Auto) 10.4 % (20.0-45.0) L Monocytes (%) (Auto) 7.7 % (1.0-10.0) Eosinophils (%) (Auto) 0.2 % (0.0-3.0) Basophils (%) (Auto) 0.5 % (0.0-2.0) Sodium Level 146 MMOL/L (136-145) H Potassium Level 2.5 MMOL/L (3.5-5.1) *L Chloride Level 119 MMOL/L (98-107) H Carbon Dioxide Level 18 MMOL/L (21-32) L Anion Gap 10 mmol/L (5-15) Blood Urea Nitrogen 7 mg/dL (7-18) Creatinine 0.4 MG/DL (0.55-1.30) L Estimat Glomerular Filtration Rate > 60 mL/min (>60) Glucose Level 101 MG/DL (74-106) Calcium Level 5.6 MG/DL (8.5-10.1) #*L Phosphorus Level 1.2 MG/DL (2.5-4.9) L Magnesium Level 1.1 MG/DL (1.8-2.4) L Total Bilirubin 0.2 MG/DL (0.2-1.0) Aspartate Amino Transf (AST/SGOT) 17 U/L (15-37) Alanine Aminotransferase (ALT/SGPT) 11 U/L (12-78) L Alkaline Phosphatase 100 U/L (46-116) C-Reactive Protein, Quantitative 6.0 mg/dL (0.00-0.90) H Total Protein 3.8 G/DL (6.4-8.2) L Albumin 0.6 G/DL (3.4-5.0) L Globulin 3.2 g/dL Intake and Output 08/30/18 08/31/18 18:59 06:59 Intake Total 90 ml 180 ml Output Total 800 ml Balance -710 ml 180 ml Free Water 50 ml Tube Feeding 40 ml 180 ml Stool Total 800 ml Objective General Appearance: WD/WN, no apparent distress, lethargic EENT: PERRL/EOMI, normal ENT inspection Neck: non-tender, normal alignment, supple, normal inspection Cardiovascular: normal peripheral pulses, normal rate, regular rhythm, no gallop/murmur, no JVD Respiratory/Chest: chest wall non-tender, lungs clear, normal breath sounds, no respiratory distress, no accessory muscle use Abdomen: normal bowel sounds, non tender, soft, no organomegaly, no mass Extremities: normal range of motion, non-tender 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 S/P meropenem per ID. 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 (5) Renal failure (ARF), acute on chronic (6) Decubitus ulcer Assessment & Plan: Await debridement per surgery-see note (7) Bipolar II disorder (8) Leukocytosis (9) Clostridium difficile colitis Assessment & Plan: Continue oral vanco per ID (10) CVA (cerebral vascular accident) (11) Acute metabolic encephalopathy (12) HTN (hypertension) (13) CAD (coronary artery disease) (14) Atrial fibrillation Assessment & Plan: Continue eliquis (15) Pneumonia Assessment & Plan: Continue INH per ID-see note (16) Hypernatremia Assessment & Plan: Nephrology consult. continue D5NS + KCL (17) Hypokalemia Assessment & Plan: Cont D5NS +Kcl (18) Anemia Assessment & Plan: S/P transfusion 2 units PRBC (19) Protein-calorie malnutrition Assessment & Plan: Await PEG 08/29/18-see GI note (20) Latent tuberculosis Assessment & Plan: Continue INH per ID Daniel Jackson MD Aug 31, 2018 19:03
[2018-08-31] MEDS: Dyna-Hex 2% Top Sol 2oz TOPIC SCH (20:58)
[2018-08-31] MEDS: Spironolactone 25mg tab GT SCH (20:59)
[2018-08-31] MEDS ORDERED: Potassium Phosphate 30 MM in NS 275 ML IV ONE (22:00)
[2018-09-01] VITALS: BP 130/74
[2018-09-01 04:00] VITALS: BP 143/73
[2018-09-01 07:24] LABS: HEMATOCRIT 25.2 % (42.0-52.0); HEMOGLOBIN 7.9 G/DL (14.2-18.0); MEAN CORPUSCULAR VOLUME 97 FL (80-99); PLATELET COUNT 152 K/UL (150-450); RED CELL DISTRIBUTION WIDTH 16.7 % (11.6-14.8); WHITE BLOOD COUNT 10.9 K/UL (4.8-10.8)
[2018-09-01 07:52] LABS: ALANINE AMINOTRANSFERASE 12 U/L (12-78); ALBUMIN 1.4 G/DL (3.4-5.0); ALBUMIN/GLOBULIN RATIO 0.3 (1.0-2.7); ALKALINE PHOSPHATASE 135 U/L (46-116); ANION GAP 3 mmol/L (5-15); ASPARTATE AMINO TRANSFERASE 14 U/L (15-37); BILIRUBIN,TOTAL 0.2 MG/DL (0.2-1.0); BLOOD UREA NITROGEN 9 mg/dL (7-18); CALCIUM 7.4 MG/DL (8.5-10.1); CARBON DIOXIDE 23 MMOL/L (21-32); CHLORIDE 114 MMOL/L (98-107); CREATININE 0.5 MG/DL (0.55-1.30); FERRITIN 531 NG/ML (8-388); GAMMA GLUTAMYL TRANSPEPTIDASE 127 U/L (5-85); PHOSPHORUS 2.3 MG/DL (2.5-4.9); POTASSIUM 4.8 MMOL/L (3.5-5.1); SODIUM 140 MMOL/L (136-145)
[2018-09-01 08:00] VITALS: BP 155/86
[2018-09-01 08:10] LABS: % IRON SATURATION 117 % (15-50); IRON 42 ug/dL (50-175); TOTAL IRON BINDING CAPACITY 36 ug/dL (250-450)
[2018-09-01] MEDS: Eliquis 2.5mg tablet NG SCH ×2 (10:39→20:45)
[2018-09-01] MEDS: Spironolactone 25mg tab GT SCH ×2 (10:39→20:45)
[2018-09-01] MEDS: Isoniazid 300mg tab GT SCH (10:39)
[2018-09-01] MEDS: Lactobacillus-GG tablet GT SCH ×3 (10:39→17:57)
[2018-09-01] MEDS: Digoxin 0.125mg tab PEG SCH (10:40)
[2018-09-01] MEDS: Amiodarone 200mg tab PEG SCH (10:40)
[2018-09-01] MEDS: Metoprolol 25mg tab PEG SCH ×3 (10:41→20:46)
[2018-09-01] MEDS: Dakin's 0.125% Soln (Quarter Strength) 16oz TOPIC SCH (10:42)
--- NOTE | 2018-09-01 11:36 | Surgery Progress Note ---
Surgery Progress Note Subjective Additional Comments no acute events. leukocytosis improved. labs abnormal. exam unchanged. Objective Last 24 Hour Vital Signs Date Time Temp Pulse Resp B/P (MAP) Pulse Ox O2 Delivery O2 Flow Rate FiO2 09/01/18 10:56 74 155/86 09/01/18 10:40 74 09/01/18 08:00 98.1 74 18 155/86 (109) 97 09/01/18 04:00 97.5 67 19 143/73 (96) 98 09/01/18 00:00 97.4 65 17 130/74 (92) 98 08/31/18 23:59 64 20 Nasal Cannula 2.0 28 08/31/18 23:56 Nasal Cannula 2.0 28 08/31/18 23:56 98 Nasal Cannula 2.0 28 08/31/18 21:00 Nasal Cannula 2.0 08/31/18 20:59 61 147/78 08/31/18 20:00 97.9 61 20 147/78 (101) 96 08/31/18 16:00 98.2 60 18 107/58 (74) 93 08/31/18 12:00 98.2 60 17 130/60 (83) 93 I&O Intake and Output 08/31/18 09/01/18 19:00 07:00 Intake Total 692.5 ml 1645.0 ml Output Total 375 ml 300 ml Balance 317.5 ml 1345.0 ml Free Water 150 ml IV Total 642.5 ml 895.0 ml Tube Feeding 50 ml 600 ml Output Urine Total 375 ml 300 ml # Bowel Movements 1 Dressing: saturated Wound: other Drains: other Cardiovascular: RSR Respiratory: decreased breath sounds Abdomen: soft, non-tender, present bowel sounds, non-distended Extremities: other Laboratory Tests Test 09/01/18 07:06 White Blood Count 10.9 K/UL (4.8-10.8) H Red Blood Count 2.60 M/UL (4.70-6.10) L Hemoglobin 7.9 G/DL (14.2-18.0) L Hematocrit 25.2 % (42.0-52.0) L Mean Corpuscular Volume 97 FL (80-99) Mean Corpuscular Hemoglobin 30.3 PG (27.0-31.0) Mean Corpuscular Hemoglobin Concent 31.3 G/DL (32.0-36.0) L Red Cell Distribution Width 16.7 % (11.6-14.8) H Platelet Count 152 K/UL (150-450) Mean Platelet Volume 5.1 FL (6.5-10.1) L Neutrophils (%) (Auto) % (45.0-75.0) Lymphocytes (%) (Auto) % (20.0-45.0) Monocytes (%) (Auto) % (1.0-10.0) Eosinophils (%) (Auto) % (0.0-3.0) Basophils (%) (Auto) % (0.0-2.0) Differential Total Cells Counted 100 Neutrophils % (Manual) 78 % (45-75) H Lymphocytes % (Manual) 14 % (20-45) L Monocytes % (Manual) 6 % (1-10) Eosinophils % (Manual) 0 % (0-3) Basophils % (Manual) 0 % (0-2) Band Neutrophils 2 % (0-8) Platelet Estimate Adequate Platelet Morphology Normal Hypochromasia 2+ Anisocytosis 1+ Sodium Level 140 MMOL/L (136-145) Potassium Level 4.8 MMOL/L (3.5-5.1) # Chloride Level 114 MMOL/L (98-107) H Carbon Dioxide Level 23 MMOL/L (21-32) Anion Gap 3 mmol/L (5-15) L Blood Urea Nitrogen 9 mg/dL (7-18) Creatinine 0.5 MG/DL (0.55-1.30) L Estimat Glomerular Filtration Rate > 60 mL/min (>60) Glucose Level 208 MG/DL (74-106) #H Lactic Acid Level 1.80 mmol/L (0.4-2.0) Uric Acid 3.7 MG/DL (2.6-7.2) Calcium Level 7.4 MG/DL (8.5-10.1) #L Phosphorus Level 2.3 MG/DL (2.5-4.9) L Magnesium Level 2.1 MG/DL (1.8-2.4) Iron Level 42 ug/dL (50-175) L Total Iron Binding Capacity 36 ug/dL (250-450) L Percent Iron Saturation 117 % (15-50) H Unsaturated Iron Binding -6 ug/dL (112-346) L Ferritin 531 NG/ML (8-388) H Total Bilirubin 0.2 MG/DL (0.2-1.0) Gamma Glutamyl Transpeptidase 127 U/L (5-85) H Aspartate Amino Transf (AST/SGOT) 14 U/L (15-37) L Alanine Aminotransferase (ALT/SGPT) 12 U/L (12-78) Alkaline Phosphatase 135 U/L (46-116) H Pro-B-Type Natriuretic Peptide 2982 pg/mL (0-125) H Total Protein 5.4 G/DL (6.4-8.2) #L Albumin 1.4 G/DL (3.4-5.0) L Globulin 4.0 g/dL Albumin/Globulin Ratio 0.3 (1.0-2.7) L Vitamin B12 Level 1580 PG/ML (193-986) H Folate 17.7 NG/ML (8.6-58.9) Thyroid Stimulating Hormone (TSH) 6.146 uiU/mL (0.358-3.740) Plan Problems: (1) Sepsis Assessment & Plan: IV abx trend labs will monitor wounds s/p wound cleaning/debridement s/p PEG C diff treatment per ID Abx recently changed. Micro noted path noted (2) Decubitus skin ulcer Assessment & Plan: Pt presented on admission with multiple full thickness pressure injuries. Full thickness pressure injury to L elbow.Base of wound wound with 25% fibrinous slough,75% pink granulation noted.(+) maceration along borders. erythema without elevation in skin temp periwound(L)1.5cm x (W)1.8cm x(D)0.3cm. Full thickness pressure injury R trochanter .Base of wound with pink granulation.Edges adherent to base of wound .No odor or exudate noted.Darker skin tone without induration periwound. (L)4.5cm x (W)6.3cm x (D) 3cm.Undermining 12-3 by 3cm @12o'clock. Full thickness pressure injury to R ischium .Wound is malodorous.90% soft necrosis,10% pink noted at base of wound ,(+) epibole along edges .Periwound darker in skin tone and is indurated.(L)8.4cm x (W)4.3cm (D)2.5cm .Tunneling at 1o'clock by 3.6cm ,tunneling @5o'clock by 6.3cm. Full thickness sacral pressure injury with 80% soft necrosis ,20% pink granulation .Wound is malodorous with small amt brown exudate (L)8.5cm x (W)5cm x (D)2.5cm ,undermining 8-5 by 4.7cm @1o'clock. wounds with gross drainage poor nutritional status. prognosis concerning follow up wounds eval with team performed and L elbow wound with 60% mixed yellow /pope slough with surrounding pink granulation (L)4.5cm x (W)2.7cm. Dark skin tone periwound. Minimal serous exudate without odor noted to drsg upon removal. Second wound proximally but in close proximity to L elbow granular with trace biofilm (L)2.3cm x (W)2.4cm.Edges adherent and flat .No odor or exudate noted. Full thickness pressure injury to R trochanter with pink granulation. Small area of bone visible at base of wound. Edges adherent and flat. No odor or exudate noted (L)3.5cm x (W)6cm x (D)3.1cm. Dark skin tone periwound. Full thickness pressure injury R ischium with tunneling at 6o'clock with 80% loose -Soft necrosis at base of wound with surrounding pink granulation along inner wall of wound.#2 small areas along borders with soft loosening necrosis. No odor noted .Periwound less indurated but with darker skin tone. (L)7cm x (W) 2.9 x(D)5cm ,tunneling at 6o'clock by 5cm. Full thickness sacral pressure injury with undermining, 75% mixed soft necrosis and slough, 25% pink granulation. Small amt serosanguineous exudate without odor noted .Edges are mostly adherent with scattered areas that are non- adherent with yellow slough. (L)10cm x (W)8.2cm x (D)2.3cm ,undermining 6-3 by 4.2cm @12o'clock. Resolving partial thickness wound L hip base of wound is moist -viable .Edges adherent to base of wound .Periwound without fluctuance or induration. (L)3.9cm x(W)3cm. L ischial partial thickness wound resolving.Base of wound is pink -moist .(+) maceration long borders. Periwound without erythema or induration (L)2cm x (W) 1.2cm. No odor or exudate noted. Patients wounds with dressing changes going well but continues to have large wounds that require significant care. Recently feeding tube placement and tolerating feeds with increased nutrition will hopefully be able to begin healing wounds Tx.Plan: Cleanse R trochanter with Dakin's 0.125% candelaria. Loosely pack with Dakin's soaked kerlix .Cover with Optifoam drsg TID and prn. Cleanse R Ischial wound with Dakin's 0.125% candelaria.Loosely pack with Dakin's soaked kerlix. Cavilon Skin Barrier periwound. Cover with Optifoam drsg TID and prn. Cleanse Sacral wound with dakin's 0.125% candelaria.Loosely pack with Dakin's soaked kerlix.Cavilon Skin Barrier periwound.Cover with Optifoam drsg TID and prn. Cleanse L elbow with Dakin's 0.125% candelaria. Apply Dakin's moist 2x2 gauze. Cover with Optifoam drsg TID and prn. Quartet Air fluidized mattress. Reposition L side to back at least every 2hours or as tolerated. Goyo Osuna Sep 01, 2018 11:36
--- NOTE | 2018-09-01 11:46 | Cardiac Electrophysiology PN ---
Assessment/Plan Assessment/Plan 1. Atrial fibrillation with rapid ventricular response. In SR on metoprolol 50 mg bid, digoxin 0.125, amiodarone 200 daily and Eliquis 2. Fever and sepsis with Positive blood culture. IV antibiotics per Dr. Parker. 3. Dementia and psychosis. 4. 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 5. Sacral decubitus.S/P debridement 6. C. Diff colitis.On Flagyl 7. Hypotension. Resolved. 8. Hypokalemia, on Aldactone 25 bid 9. Anemia, S/P PRBC. 10. Dysphagia. S/P PEG DW RN Subjective Subjective In isolation in NAD. RN at bedside. No CP or SOB Objective Last 24 Hour Vital Signs Date Time Temp Pulse Resp B/P (MAP) Pulse Ox O2 Delivery O2 Flow Rate FiO2 09/01/18 10:56 74 155/86 09/01/18 10:40 74 09/01/18 09:00 Nasal Cannula 2.0 09/01/18 08:00 98.1 74 18 155/86 (109) 97 09/01/18 04:00 97.5 67 19 143/73 (96) 98 09/01/18 00:00 97.4 65 17 130/74 (92) 98 08/31/18 23:59 64 20 Nasal Cannula 2.0 28 08/31/18 23:56 Nasal Cannula 2.0 28 08/31/18 23:56 98 Nasal Cannula 2.0 28 08/31/18 21:00 Nasal Cannula 2.0 08/31/18 20:59 61 147/78 08/31/18 20:00 97.9 61 20 147/78 (101) 96 08/31/18 16:00 98.2 60 18 107/58 (74) 93 08/31/18 12:00 98.2 60 17 130/60 (83) 93 Intake and Output 08/31/18 09/01/18 19:00 07:00 Intake Total 692.5 ml 1645.0 ml Output Total 375 ml 300 ml Balance 317.5 ml 1345.0 ml Free Water 150 ml IV Total 642.5 ml 895.0 ml Tube Feeding 50 ml 600 ml Output Urine Total 375 ml 300 ml # Bowel Movements 1 Laboratory Tests Test 09/01/18 07:06 White Blood Count 10.9 K/UL (4.8-10.8) H Red Blood Count 2.60 M/UL (4.70-6.10) L Hemoglobin 7.9 G/DL (14.2-18.0) L Hematocrit 25.2 % (42.0-52.0) L Mean Corpuscular Volume 97 FL (80-99) Mean Corpuscular Hemoglobin 30.3 PG (27.0-31.0) Mean Corpuscular Hemoglobin Concent 31.3 G/DL (32.0-36.0) L Red Cell Distribution Width 16.7 % (11.6-14.8) H Platelet Count 152 K/UL (150-450) Mean Platelet Volume 5.1 FL (6.5-10.1) L Neutrophils (%) (Auto) % (45.0-75.0) Lymphocytes (%) (Auto) % (20.0-45.0) Monocytes (%) (Auto) % (1.0-10.0) Eosinophils (%) (Auto) % (0.0-3.0) Basophils (%) (Auto) % (0.0-2.0) Differential Total Cells Counted 100 Neutrophils % (Manual) 78 % (45-75) H Lymphocytes % (Manual) 14 % (20-45) L Monocytes % (Manual) 6 % (1-10) Eosinophils % (Manual) 0 % (0-3) Basophils % (Manual) 0 % (0-2) Band Neutrophils 2 % (0-8) Platelet Estimate Adequate Platelet Morphology Normal Hypochromasia 2+ Anisocytosis 1+ Sodium Level 140 MMOL/L (136-145) Potassium Level 4.8 MMOL/L (3.5-5.1) # Chloride Level 114 MMOL/L (98-107) H Carbon Dioxide Level 23 MMOL/L (21-32) Anion Gap 3 mmol/L (5-15) L Blood Urea Nitrogen 9 mg/dL (7-18) Creatinine 0.5 MG/DL (0.55-1.30) L Estimat Glomerular Filtration Rate > 60 mL/min (>60) Glucose Level 208 MG/DL (74-106) #H Lactic Acid Level 1.80 mmol/L (0.4-2.0) Uric Acid 3.7 MG/DL (2.6-7.2) Calcium Level 7.4 MG/DL (8.5-10.1) #L Phosphorus Level 2.3 MG/DL (2.5-4.9) L Magnesium Level 2.1 MG/DL (1.8-2.4) Iron Level 42 ug/dL (50-175) L Total Iron Binding Capacity 36 ug/dL (250-450) L Percent Iron Saturation 117 % (15-50) H Unsaturated Iron Binding -6 ug/dL (112-346) L Ferritin 531 NG/ML (8-388) H Total Bilirubin 0.2 MG/DL (0.2-1.0) Gamma Glutamyl Transpeptidase 127 U/L (5-85) H Aspartate Amino Transf (AST/SGOT) 14 U/L (15-37) L Alanine Aminotransferase (ALT/SGPT) 12 U/L (12-78) Alkaline Phosphatase 135 U/L (46-116) H Pro-B-Type Natriuretic Peptide 2982 pg/mL (0-125) H Total Protein 5.4 G/DL (6.4-8.2) #L Albumin 1.4 G/DL (3.4-5.0) L Globulin 4.0 g/dL Albumin/Globulin Ratio 0.3 (1.0-2.7) L Vitamin B12 Level 1580 PG/ML (193-986) H Folate 17.7 NG/ML (8.6-58.9) Thyroid Stimulating Hormone (TSH) 6.146 uiU/mL (0.358-3.740) Objective HEAD AND NECK: No JVD. LUNGS: Have coarse rhonchi. CARDIOVASCULAR: Irregular S1 and S2 with no gallop or murmur. ABDOMEN: Soft.PEG in place EXTREMITIES: Bilateral above-knee amputation. Amandeep Arora MD Sep 01, 2018 11:46
--- NOTE | 2018-09-01 11:50 | Nephrology Progress Note ---
Assessment/Plan Problem List: (1) Hypokalemia Assessment: also Low Phos and Low Mag (2) HTN (hypertension) (3) Atrial fibrillation (4) Clostridium difficile colitis (5) Decubitus ulcer (6) Anemia Assessment Low Phos Low K Low Mag C deficil colitis Sepsis Decubiti Anemia CVA At fib Plan K , Mag , Phos supplement IV as needed until diarrhea subcides Aldactone Monitor labs per consultants discussed with Dr Montesinos Subjective ROS Limited/Unobtainable: No Constitutional: Reports: malaise, weakness Objective Objective Last 24 Hour Vital Signs Date Time Temp Pulse Resp B/P (MAP) Pulse Ox O2 Delivery O2 Flow Rate FiO2 09/01/18 10:56 74 155/86 09/01/18 10:40 74 09/01/18 09:00 Nasal Cannula 2.0 09/01/18 08:00 98.1 74 18 155/86 (109) 97 09/01/18 04:00 97.5 67 19 143/73 (96) 98 09/01/18 00:00 97.4 65 17 130/74 (92) 98 08/31/18 23:59 64 20 Nasal Cannula 2.0 28 08/31/18 23:56 Nasal Cannula 2.0 28 08/31/18 23:56 98 Nasal Cannula 2.0 28 08/31/18 21:00 Nasal Cannula 2.0 08/31/18 20:59 61 147/78 08/31/18 20:00 97.9 61 20 147/78 (101) 96 08/31/18 16:00 98.2 60 18 107/58 (74) 93 08/31/18 12:00 98.2 60 17 130/60 (83) 93 Intake and Output 08/31/18 09/01/18 19:00 07:00 Intake Total 692.5 ml 1645.0 ml Output Total 375 ml 300 ml Balance 317.5 ml 1345.0 ml Free Water 150 ml IV Total 642.5 ml 895.0 ml Tube Feeding 50 ml 600 ml Output Urine Total 375 ml 300 ml # Bowel Movements 1 Laboratory Tests 09/01/18 07:06: White Blood Count 10.9H, Red Blood Count 2.60L, Hemoglobin 7.9L, Hematocrit 25.2L, Mean Corpuscular Volume 97, Mean Corpuscular Hemoglobin 30.3, Mean Corpuscular Hemoglobin Concent 31.3L, Red Cell Distribution Width 16.7H, Platelet Count 152, Mean Platelet Volume 5.1L, Neutrophils (%) (Auto) , Lymphocytes (%) (Auto) , Monocytes (%) (Auto) , Eosinophils (%) (Auto) , Basophils (%) (Auto) , Differential Total Cells Counted 100, Neutrophils % ( Manual) 78H, Lymphocytes % (Manual) 14L, Monocytes % (Manual) 6, Eosinophils % ( Manual) 0, Basophils % (Manual) 0, Band Neutrophils 2, Platelet Estimate Adequate, Platelet Morphology Normal, Hypochromasia 2+, Anisocytosis 1+, Sodium Level 140, Potassium Level 4.8#, Chloride Level 114H, Carbon Dioxide Level 23, Anion Gap 3L, Blood Urea Nitrogen 9, Creatinine 0.5L, Estimat Glomerular Filtration Rate > 60, Glucose Level 208#H, Lactic Acid Level 1.80, Uric Acid 3.7 , Calcium Level 7.4#L, Phosphorus Level 2.3L, Magnesium Level 2.1, Iron Level 42L, Total Iron Binding Capacity 36L, Percent Iron Saturation 117H, Unsaturated Iron Binding -6L, Ferritin 531H, Total Bilirubin 0.2, Gamma Glutamyl Transpeptidase 127H, Aspartate Amino Transf (AST/SGOT) 14L, Alanine Aminotransferase (ALT/SGPT) 12, Alkaline Phosphatase 135H, Pro-B-Type Natriuretic Peptide 2982H, Total Protein 5.4#L, Albumin 1.4L, Globulin 4.0, Albumin/Globulin Ratio 0.3L, Vitamin B12 Level 1580H, Folate 17.7, Thyroid Stimulating Hormone (TSH) 6.146H Height (Feet): 6 Height (Inches): 0.40 Weight (Pounds): 164 General Appearance: no apparent distress, lethargic Cardiovascular: normal rate Respiratory/Chest: decreased breath sounds Abdomen: distended Ruy Colvin MD Sep 01, 2018 11:50
[2018-09-01 12:00] VITALS: BP 158/88
--- NOTE | 2018-09-01 15:23 | Pulmonology Progress Note ---
Assessment/Plan Problems: (1) Clostridium difficile colitis (2) Acute metabolic encephalopathy (3) Sepsis (4) Decubitus skin ulcer (5) UTI (urinary tract infection) (6) Anemia (7) CVA (cerebral vascular accident) Assessment/Plan unchanged mental status afebrile telemetry records reviewed, still tachy with PAC's and PVC's junctional rhythm on vancomycin PO check electrolytes continue current meds. dvt prophylaxis. got his PEG K, phos, mg supplement med/surg dc planning Subjective ROS Limited/Unobtainable: No Constitutional: Reports: no symptoms HEENT: Repors: no symptoms Respiratory: Reports: no symptoms Allergies: Coded Allergies: MILK (Verified Allergy, Unknown, 02/02/18) Objective Last 24 Hour Vital Signs Date Time Temp Pulse Resp B/P (MAP) Pulse Ox O2 Delivery O2 Flow Rate FiO2 09/01/18 12:00 98.4 75 18 158/88 (111) 100 09/01/18 10:56 74 155/86 09/01/18 10:40 74 09/01/18 09:00 Nasal Cannula 2.0 09/01/18 08:00 98.1 74 18 155/86 (109) 97 09/01/18 04:00 97.5 67 19 143/73 (96) 98 09/01/18 00:00 97.4 65 17 130/74 (92) 98 08/31/18 23:59 64 20 Nasal Cannula 2.0 28 08/31/18 23:56 Nasal Cannula 2.0 28 08/31/18 23:56 98 Nasal Cannula 2.0 28 08/31/18 21:00 Nasal Cannula 2.0 08/31/18 20:59 61 147/78 08/31/18 20:00 97.9 61 20 147/78 (101) 96 08/31/18 16:00 98.2 60 18 107/58 (74) 93 Intake and Output 08/31/18 09/01/18 19:00 07:00 Intake Total 692.5 ml 1645.0 ml Output Total 375 ml 300 ml Balance 317.5 ml 1345.0 ml Free Water 150 ml IV Total 642.5 ml 895.0 ml Tube Feeding 50 ml 600 ml Output Urine Total 375 ml 300 ml # Bowel Movements 1 Objective General Appearance: WD/WN HEENT: normocephalic, atraumatic Respiratory/Chest: chest wall non-tender, lungs clear Cardiovascular: normal peripheral pulses, normal rate Abdomen: normal bowel sounds, soft, non tender Extremities: no cyanosis Skin: extensive decubiti Laboratory Tests 09/01/18 07:06: White Blood Count 10.9H, Red Blood Count 2.60L, Hemoglobin 7.9L, Hematocrit 25.2L, Mean Corpuscular Volume 97, Mean Corpuscular Hemoglobin 30.3, Mean Corpuscular Hemoglobin Concent 31.3L, Red Cell Distribution Width 16.7H, Platelet Count 152, Mean Platelet Volume 5.1L, Neutrophils (%) (Auto) , Lymphocytes (%) (Auto) , Monocytes (%) (Auto) , Eosinophils (%) (Auto) , Basophils (%) (Auto) , Differential Total Cells Counted 100, Neutrophils % ( Manual) 78H, Lymphocytes % (Manual) 14L, Monocytes % (Manual) 6, Eosinophils % ( Manual) 0, Basophils % (Manual) 0, Band Neutrophils 2, Platelet Estimate Adequate, Platelet Morphology Normal, Hypochromasia 2+, Anisocytosis 1+, Sodium Level 140, Potassium Level 4.8#, Chloride Level 114H, Carbon Dioxide Level 23, Anion Gap 3L, Blood Urea Nitrogen 9, Creatinine 0.5L, Estimat Glomerular Filtration Rate > 60, Glucose Level 208#H, Lactic Acid Level 1.80, Uric Acid 3.7 , Calcium Level 7.4#L, Phosphorus Level 2.3L, Magnesium Level 2.1, Iron Level 42L, Total Iron Binding Capacity 36L, Percent Iron Saturation 117H, Unsaturated Iron Binding -6L, Ferritin 531H, Total Bilirubin 0.2, Gamma Glutamyl Transpeptidase 127H, Aspartate Amino Transf (AST/SGOT) 14L, Alanine Aminotransferase (ALT/SGPT) 12, Alkaline Phosphatase 135H, Pro-B-Type Natriuretic Peptide 2982H, Total Protein 5.4#L, Albumin 1.4L, Globulin 4.0, Albumin/Globulin Ratio 0.3L, Vitamin B12 Level 1580H, Folate 17.7, Thyroid Stimulating Hormone (TSH) 6.146H Current Medications Medications (Trade) Dose Ordered Sig/Erlin Route PRN Reason Start Time Stop Time Status Last Admin Dose Admin Acetaminophen (Tylenol) 650 mg Q4H PRN PEG Mild Pain (Pain Scale 1-3) 08/31/18 02:02 09/13/18 02:01 Acetaminophen (Tylenol) 650 mg Q6H PRN PEG Temp > 100.5 08/31/18 02:02 09/13/18 02:01 Amiodarone HCl (Cordarone) 200 mg DAILY PEG 08/31/18 09:00 09/19/18 08:59 09/01/18 10:40 Apixaban (Eliquis) 2.5 mg Q12HR NG 08/31/18 09:00 09/29/18 20:59 09/01/18 10:39 Aripiprazole (Abilify) 5 mg BID ORAL 08/31/18 09:00 09/13/18 08:59 09/01/18 09:00 Chlorhexidine Gluconate (Yari-Hex 2%) 1 applic DAILY@1999 TOPIC 08/31/18 20:00 09/21/18 19:59 08/31/18 20:58 Clonidine HCl (Catapres Tab) 0.1 mg Q4H PRN GT For High Blood Pressure 08/31/18 15:44 09/21/18 15:43 Digoxin (Lanoxin) 0.125 mg DAILY PEG 08/31/18 09:00 09/19/18 08:59 09/01/18 10:40 Fidaxomicin (Dificid) 200 mg EVERY 12 HOURS ORAL 08/31/18 21:00 09/07/18 20:59 09/01/18 10:40 Isoniazid (Inh) 300 mg DAILY GT 08/31/18 09:00 09/13/18 08:59 09/01/18 10:39 Lactobacillus Acidophilus (Culturelle) 1 tab THREE TIMES A DAY GT 08/31/18 09:00 09/18/18 08:59 09/01/18 10:39 Lansoprazole (Prevacid) 30 mg BID GT 09/01/18 18:00 10/01/18 17:59 Loperamide HCl (Imodium) 2 mg EVERY 8 HOURS NG 08/31/18 06:00 09/29/18 13:59 09/01/18 05:30 Metoprolol Tartrate (Lopressor) 25 mg Q12HR PEG 08/31/18 09:00 09/22/18 20:59 09/01/18 10:56 Sodium Hypochlorite (Dakin's Quarter Strength) 1 applic DAILY TOPIC 08/31/18 09:00 09/13/18 15:59 09/01/18 10:42 Spironolactone (Aldactone) 25 mg EVERY 12 HOURS GT 08/31/18 21:00 09/30/18 20:59 09/01/18 10:39 Minerva Montesinos MD Sep 01, 2018 15:23
[2018-09-01 16:00] VITALS: BP 141/81
--- NOTE | 2018-09-01 17:28 | Infectious Diseases Prog Note ---
Assessment/Plan Assessment/Plan Sepsis-2ry to bacteremia (likley from GI translocation ) -CT abd/p" Colonic mural thickening consistent with some form of colitis. No pneumatosis or extraluminal air. C Diff , ongoing diarrhea -Cdif toxin a/b + -Bcx 08/21 GNR, 08/21 ESBL Proteus mirabilis (S Ertapenem, Zosyn), 08/21 Group C strep ; 08/15 Bcx 07/24 Prevotella L . (R Clinda, Unasyn; S flagyl) ;08/17 Bcx 07/24 EUBACTERIUM LENTUM 08/21 Bcx Neg -u/a no pyuria -CXR: Suspect a small left pleural effusion. Mild basal atelectasis -influenza sc neg Fever, SP Leukocytosis , mild recurrent -08/28 CXR: There is decreased consolidation at the right lung base. There is some residual perihilar atelectasis. Hx of lung cavitary lesion/ PNA- suspect likely to aspiration; lower suspicion for TB and/or fungal etiologies -06/08 CT chest: * Interval resolution of the cavitary component associated with the previously described anterior right upper lobe opacity. It is slightly decreased in size and more nodular in appearance on today's exam. Additional patchy opacities in the posterior right upper lobe are also slightly decreased in size and appear more nodular (previously were groundglass). Findings likely related to evolving infectious or inflammatory lesions however continued follow-up is recommended to assure resolution/exclude the possibility of neoplastic etiologies. -CT c/a/p: 10 mm opacity in the peripheral anterolateral right upper lobe with small central cavitation. Patchy groundglass opacity in the posterior right upper lobe. Suspect that these represent inflammatory/infectious lesions, but neoplastic etiology of either is certainly possible. Large left and moderate right pleural effusions. Resultant compressive atelectasis of portions of the lower lobes. 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 Hypertension. Multiple decubiti ulcers (elbow, sacral) -not infected Bipolar disorder. Coronary artery disease. VRE and MRSA colonized Plan: -Continue PO Fidaxomicin #2 given ongoing diarrhea despite oral vancomycin -Cont INH for latent TB -08/31 SP PO Vancomycin #17 -08/29 SP Meropenem #13 -08/26 SP Flagyl #5 -08/17 SP Zosyn #3, Daptomycin # -08/15 SP Tamiflu #2, Ceftriaxone # -08/14 SP Cefepime and LEvaquin x1 -Monitor CBC/CMP, temperatures -wound care -aspiration precautions -Sx f/u Subjective Allergies: Coded Allergies: MILK (Verified Allergy, Unknown, 02/02/18) Subjective afebrile wbc improving Objective Vital Signs Last 24 Hour Vital Signs Date Time Temp Pulse Resp B/P (MAP) Pulse Ox O2 Delivery O2 Flow Rate FiO2 09/01/18 16:00 98.9 69 18 141/81 (101) 99 09/01/18 12:00 98.4 75 18 158/88 (111) 100 09/01/18 10:56 74 155/86 09/01/18 10:40 74 09/01/18 09:00 Nasal Cannula 2.0 09/01/18 08:00 98.1 74 18 155/86 (109) 97 09/01/18 04:00 97.5 67 19 143/73 (96) 98 09/01/18 00:00 97.4 65 17 130/74 (92) 98 08/31/18 23:59 64 20 Nasal Cannula 2.0 28 08/31/18 23:56 Nasal Cannula 2.0 28 08/31/18 23:56 98 Nasal Cannula 2.0 28 08/31/18 21:00 Nasal Cannula 2.0 08/31/18 20:59 61 147/78 08/31/18 20:00 97.9 61 20 147/78 (101) 96 Height (Feet): 6 Height (Inches): 0.40 Weight (Pounds): 164 Objective General appearance: alert, cooperative, no distress, appears stated age Head: Normocephalic, without obvious abnormality, atraumatic Eyes: conjunctivae/corneas clear. PERRL, EOM's intact. Fundi benign Throat: Lips, mucosa, and tongue normal. Teeth and gums normal Neck: supple, symmetrical, trachea midline, no adenopathy, thyroid: not enlarged, symmetric, no tenderness/mass/nodules, no carotid bruit and no JVD Lungs: clear to auscultation bilaterally Heart: regular rate and rhythm, S1, S2 normal, no murmur, click, rub or gallop Abdomen: soft, non-tender. Bowel sounds normal. No masses, no organomegaly Extremities: extremities normal, atraumatic, no cyanosis or edema/ s/p bilateral aka Pulses: 2+ and symmetric Skin: Skin color, texture, turgor normal. No rashes or lesions. multiple large decubitus ulcers. Neurologic: Grossly normal Laboratory Tests Test 09/01/18 07:06 White Blood Count 10.9 K/UL (4.8-10.8) H Red Blood Count 2.60 M/UL (4.70-6.10) L Hemoglobin 7.9 G/DL (14.2-18.0) L Hematocrit 25.2 % (42.0-52.0) L Mean Corpuscular Volume 97 FL (80-99) Mean Corpuscular Hemoglobin 30.3 PG (27.0-31.0) Mean Corpuscular Hemoglobin Concent 31.3 G/DL (32.0-36.0) L Red Cell Distribution Width 16.7 % (11.6-14.8) H Platelet Count 152 K/UL (150-450) Mean Platelet Volume 5.1 FL (6.5-10.1) L Neutrophils (%) (Auto) % (45.0-75.0) Lymphocytes (%) (Auto) % (20.0-45.0) Monocytes (%) (Auto) % (1.0-10.0) Eosinophils (%) (Auto) % (0.0-3.0) Basophils (%) (Auto) % (0.0-2.0) Differential Total Cells Counted 100 Neutrophils % (Manual) 78 % (45-75) H Lymphocytes % (Manual) 14 % (20-45) L Monocytes % (Manual) 6 % (1-10) Eosinophils % (Manual) 0 % (0-3) Basophils % (Manual) 0 % (0-2) Band Neutrophils 2 % (0-8) Platelet Estimate Adequate Platelet Morphology Normal Hypochromasia 2+ Anisocytosis 1+ Sodium Level 140 MMOL/L (136-145) Potassium Level 4.8 MMOL/L (3.5-5.1) # Chloride Level 114 MMOL/L (98-107) H Carbon Dioxide Level 23 MMOL/L (21-32) Anion Gap 3 mmol/L (5-15) L Blood Urea Nitrogen 9 mg/dL (7-18) Creatinine 0.5 MG/DL (0.55-1.30) L Estimat Glomerular Filtration Rate > 60 mL/min (>60) Glucose Level 208 MG/DL (74-106) #H Lactic Acid Level 1.80 mmol/L (0.4-2.0) Uric Acid 3.7 MG/DL (2.6-7.2) Calcium Level 7.4 MG/DL (8.5-10.1) #L Phosphorus Level 2.3 MG/DL (2.5-4.9) L Magnesium Level 2.1 MG/DL (1.8-2.4) Iron Level 42 ug/dL (50-175) L Total Iron Binding Capacity 36 ug/dL (250-450) L Percent Iron Saturation 117 % (15-50) H Unsaturated Iron Binding -6 ug/dL (112-346) L Ferritin 531 NG/ML (8-388) H Total Bilirubin 0.2 MG/DL (0.2-1.0) Gamma Glutamyl Transpeptidase 127 U/L (5-85) H Aspartate Amino Transf (AST/SGOT) 14 U/L (15-37) L Alanine Aminotransferase (ALT/SGPT) 12 U/L (12-78) Alkaline Phosphatase 135 U/L (46-116) H Pro-B-Type Natriuretic Peptide 2982 pg/mL (0-125) H Total Protein 5.4 G/DL (6.4-8.2) #L Albumin 1.4 G/DL (3.4-5.0) L Globulin 4.0 g/dL Albumin/Globulin Ratio 0.3 (1.0-2.7) L Vitamin B12 Level 1580 PG/ML (193-986) H Folate 17.7 NG/ML (8.6-58.9) Thyroid Stimulating Hormone (TSH) 6.146 uiU/mL (0.358-3.740) Current Medications Medications (Trade) Dose Ordered Sig/Erlin Route PRN Reason Start Time Stop Time Status Last Admin Dose Admin Acetaminophen (Tylenol) 650 mg Q4H PRN PEG Mild Pain (Pain Scale 1-3) 08/31/18 02:02 09/13/18 02:01 Acetaminophen (Tylenol) 650 mg Q6H PRN PEG Temp > 100.5 08/31/18 02:02 09/13/18 02:01 Amiodarone HCl (Cordarone) 200 mg DAILY PEG 08/31/18 09:00 09/19/18 08:59 09/01/18 10:40 Apixaban (Eliquis) 2.5 mg Q12HR NG 08/31/18 09:00 09/29/18 20:59 09/01/18 10:39 Aripiprazole (Abilify) 5 mg BID ORAL 08/31/18 09:00 09/13/18 08:59 09/01/18 09:00 Chlorhexidine Gluconate (Yari-Hex 2%) 1 applic DAILY@1999 TOPIC 08/31/18 20:00 09/21/18 19:59 08/31/18 20:58 Clonidine HCl (Catapres Tab) 0.1 mg Q4H PRN GT For High Blood Pressure 08/31/18 15:44 09/21/18 15:43 Digoxin (Lanoxin) 0.125 mg DAILY PEG 08/31/18 09:00 09/19/18 08:59 09/01/18 10:40 Fidaxomicin (Dificid) 200 mg EVERY 12 HOURS ORAL 08/31/18 21:00 09/07/18 20:59 09/01/18 10:40 Isoniazid (Inh) 300 mg DAILY GT 08/31/18 09:00 09/13/18 08:59 09/01/18 10:39 Lactobacillus Acidophilus (Culturelle) 1 tab THREE TIMES A DAY GT 08/31/18 09:00 09/18/18 08:59 09/01/18 15:40 Lansoprazole (Prevacid) 30 mg BID GT 09/01/18 18:00 10/01/18 17:59 Loperamide HCl (Imodium) 2 mg EVERY 8 HOURS NG 08/31/18 06:00 09/29/18 13:59 09/01/18 15:41 Metoprolol Tartrate (Lopressor) 25 mg Q12HR PEG 08/31/18 09:00 09/22/18 20:59 09/01/18 10:56 Sodium Hypochlorite (Dakin's Quarter Strength) 1 applic DAILY TOPIC 08/31/18 09:00 09/13/18 15:59 09/01/18 10:42 Spironolactone (Aldactone) 25 mg EVERY 12 HOURS GT 08/31/18 21:00 09/30/18 20:59 09/01/18 10:39 Alma Elkins M.D. Sep 01, 2018 17:28
--- NOTE | 2018-09-01 19:13 | Internal Med Progress Note ---
Subjective Date of Service: Sep 01, 2018 Physician Name Jackson,Daniel Attending Physician Pedro Caban MD Current Medications Medications (Trade) Dose Ordered Sig/Erlin Route PRN Reason Start Time Stop Time Status Last Admin Dose Admin Acetaminophen (Tylenol) 650 mg Q4H PRN PEG Mild Pain (Pain Scale 1-3) 08/31/18 02:02 09/13/18 02:01 Acetaminophen (Tylenol) 650 mg Q6H PRN PEG Temp > 100.5 08/31/18 02:02 09/13/18 02:01 Amiodarone HCl (Cordarone) 200 mg DAILY PEG 08/31/18 09:00 09/19/18 08:59 09/01/18 10:40 Apixaban (Eliquis) 2.5 mg Q12HR NG 08/31/18 09:00 09/29/18 20:59 09/01/18 10:39 Aripiprazole (Abilify) 5 mg BID ORAL 08/31/18 09:00 09/13/18 08:59 09/01/18 17:58 Chlorhexidine Gluconate (Yari-Hex 2%) 1 applic DAILY@1999 TOPIC 08/31/18 20:00 09/21/18 19:59 08/31/18 20:58 Clonidine HCl (Catapres Tab) 0.1 mg Q4H PRN GT For High Blood Pressure 08/31/18 15:44 09/21/18 15:43 Digoxin (Lanoxin) 0.125 mg DAILY PEG 08/31/18 09:00 09/19/18 08:59 09/01/18 10:40 Fidaxomicin (Dificid) 200 mg EVERY 12 HOURS ORAL 08/31/18 21:00 09/07/18 20:59 09/01/18 10:40 Isoniazid (Inh) 300 mg DAILY GT 08/31/18 09:00 09/13/18 08:59 09/01/18 10:39 Lactobacillus Acidophilus (Culturelle) 1 tab THREE TIMES A DAY GT 08/31/18 09:00 09/18/18 08:59 09/01/18 17:57 Lansoprazole (Prevacid) 30 mg BID GT 09/01/18 18:00 10/01/18 17:59 09/01/18 17:58 Loperamide HCl (Imodium) 2 mg EVERY 8 HOURS NG 08/31/18 06:00 09/29/18 13:59 09/01/18 15:41 Metoprolol Tartrate (Lopressor) 25 mg Q12HR PEG 08/31/18 09:00 09/22/18 20:59 09/01/18 10:56 Sodium Hypochlorite (Dakin's Quarter Strength) 1 applic DAILY TOPIC 08/31/18 09:00 09/13/18 15:59 09/01/18 10:42 Spironolactone (Aldactone) 25 mg EVERY 12 HOURS GT 08/31/18 21:00 09/30/18 20:59 09/01/18 10:39 Allergies: Coded Allergies: MILK (Verified Allergy, Unknown, 02/02/18) ROS Limited/Unobtainable: Yes Subjective 68 YO M admitted with fever and leukocytosis. Now Sepsis and C. Difficile colitis/diarrhea. Cover for Int Med-Dr Caban. S/P PEG 08/29/18 Objective Last Vital Signs Date Time Temp Pulse Resp B/P (MAP) Pulse Ox O2 Delivery O2 Flow Rate FiO2 09/01/18 16:00 98.9 69 18 141/81 (101) 99 09/01/18 09:00 Nasal Cannula 2.0 08/31/18 23:59 28 Laboratory Tests Test 09/01/18 07:06 White Blood Count 10.9 K/UL (4.8-10.8) H Red Blood Count 2.60 M/UL (4.70-6.10) L Hemoglobin 7.9 G/DL (14.2-18.0) L Hematocrit 25.2 % (42.0-52.0) L Mean Corpuscular Volume 97 FL (80-99) Mean Corpuscular Hemoglobin 30.3 PG (27.0-31.0) Mean Corpuscular Hemoglobin Concent 31.3 G/DL (32.0-36.0) L Red Cell Distribution Width 16.7 % (11.6-14.8) H Platelet Count 152 K/UL (150-450) Mean Platelet Volume 5.1 FL (6.5-10.1) L Neutrophils (%) (Auto) % (45.0-75.0) Lymphocytes (%) (Auto) % (20.0-45.0) Monocytes (%) (Auto) % (1.0-10.0) Eosinophils (%) (Auto) % (0.0-3.0) Basophils (%) (Auto) % (0.0-2.0) Differential Total Cells Counted 100 Neutrophils % (Manual) 78 % (45-75) H Lymphocytes % (Manual) 14 % (20-45) L Monocytes % (Manual) 6 % (1-10) Eosinophils % (Manual) 0 % (0-3) Basophils % (Manual) 0 % (0-2) Band Neutrophils 2 % (0-8) Platelet Estimate Adequate Platelet Morphology Normal Hypochromasia 2+ Anisocytosis 1+ Sodium Level 140 MMOL/L (136-145) Potassium Level 4.8 MMOL/L (3.5-5.1) # Chloride Level 114 MMOL/L (98-107) H Carbon Dioxide Level 23 MMOL/L (21-32) Anion Gap 3 mmol/L (5-15) L Blood Urea Nitrogen 9 mg/dL (7-18) Creatinine 0.5 MG/DL (0.55-1.30) L Estimat Glomerular Filtration Rate > 60 mL/min (>60) Glucose Level 208 MG/DL (74-106) #H Lactic Acid Level 1.80 mmol/L (0.4-2.0) Uric Acid 3.7 MG/DL (2.6-7.2) Calcium Level 7.4 MG/DL (8.5-10.1) #L Phosphorus Level 2.3 MG/DL (2.5-4.9) L Magnesium Level 2.1 MG/DL (1.8-2.4) Iron Level 42 ug/dL (50-175) L Total Iron Binding Capacity 36 ug/dL (250-450) L Percent Iron Saturation 117 % (15-50) H Unsaturated Iron Binding -6 ug/dL (112-346) L Ferritin 531 NG/ML (8-388) H Total Bilirubin 0.2 MG/DL (0.2-1.0) Gamma Glutamyl Transpeptidase 127 U/L (5-85) H Aspartate Amino Transf (AST/SGOT) 14 U/L (15-37) L Alanine Aminotransferase (ALT/SGPT) 12 U/L (12-78) Alkaline Phosphatase 135 U/L (46-116) H Pro-B-Type Natriuretic Peptide 2982 pg/mL (0-125) H Total Protein 5.4 G/DL (6.4-8.2) #L Albumin 1.4 G/DL (3.4-5.0) L Globulin 4.0 g/dL Albumin/Globulin Ratio 0.3 (1.0-2.7) L Vitamin B12 Level 1580 PG/ML (193-986) H Folate 17.7 NG/ML (8.6-58.9) Thyroid Stimulating Hormone (TSH) 6.146 uiU/mL (0.358-3.740) Intake and Output 08/31/18 09/01/18 18:59 06:59 Intake Total 642.5 ml 1645.0 ml Output Total 375 ml 300 ml Balance 267.5 ml 1345.0 ml Free Water 150 ml IV Total 642.5 ml 895.0 ml Tube Feeding 600 ml Output Urine Total 375 ml 300 ml # Bowel Movements 1 Objective General Appearance: WD/WN, no apparent distress, lethargic EENT: PERRL/EOMI, normal ENT inspection Neck: non-tender, normal alignment, supple, normal inspection Cardiovascular: normal peripheral pulses, normal rate, regular rhythm, no gallop/murmur, no JVD Respiratory/Chest: chest wall non-tender, lungs clear, normal breath sounds, no respiratory distress, no accessory muscle use Abdomen: normal bowel sounds, non tender, soft, no organomegaly, no mass Extremities: normal range of motion, non-tender Neurologic: psychiatric rn II-XII grossly normal Skin: normal pigmentation, warm/dry Assessment/Plan Problem List: (1) Sepsis Assessment & Plan: ESBL Proteus Mirablilis. S/P meropenem per ID. 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 (5) Renal failure (ARF), acute on chronic (6) Decubitus ulcer Assessment & Plan: Await debridement per surgery-see note (7) Bipolar II disorder (8) Leukocytosis (9) Clostridium difficile colitis Assessment & Plan: Continue oral vanco per ID (10) CVA (cerebral vascular accident) (11) Acute metabolic encephalopathy (12) HTN (hypertension) (13) CAD (coronary artery disease) (14) Atrial fibrillation Assessment & Plan: Continue eliquis (15) Pneumonia Assessment & Plan: Continue INH per ID-see note (16) Hypernatremia Assessment & Plan: Nephrology consult. continue D5NS + KCL (17) Hypokalemia Assessment & Plan: Cont D5NS +Kcl (18) Anemia Assessment & Plan: S/P transfusion 2 units PRBC (19) Protein-calorie malnutrition Assessment & Plan: Await PEG 08/29/18-see GI note (20) Latent tuberculosis Assessment & Plan: Continue INH per ID Assessment/Plan Discharge planning: [place] [facility] Daniel Jackson MD Sep 01, 2018 19:13
[2018-09-01 20:00] VITALS: BP 135/75
[2018-09-01] MEDS: Dyna-Hex 2% Top Sol 2oz TOPIC SCH (20:45)
--- NOTE | 2018-09-01 21:06 | General Progress Note ---
Assessment/Plan Assessment/Plan Assessment - C Difficile colitis - abnormal lytes - failed swallow eval - s/p PEG - s/p b/l AKA - anemia - duodenal ulcers - bacteremia, leukocytosis - improving Recommendations - abx per ID - probiotics - elevate HOB - replace electrolytes - IVF - transfuse PRN - PPI - TF - anticoagulation - Poor Px Subjective Allergies: Coded Allergies: MILK (Verified Allergy, Unknown, 02/02/18) Subjective above noted WBC declining on Dificid tolerating TF Objective Last 24 Hour Vital Signs Date Time Temp Pulse Resp B/P (MAP) Pulse Ox O2 Delivery O2 Flow Rate FiO2 09/01/18 20:46 70 135/75 09/01/18 20:00 99.2 70 18 135/75 (95) 93 09/01/18 16:00 98.9 69 18 141/81 (101) 99 09/01/18 12:00 98.4 75 18 158/88 (111) 100 09/01/18 10:56 74 155/86 09/01/18 10:40 74 09/01/18 09:00 Nasal Cannula 2.0 09/01/18 08:00 98.1 74 18 155/86 (109) 97 09/01/18 04:00 97.5 67 19 143/73 (96) 98 09/01/18 00:00 97.4 65 17 130/74 (92) 98 08/31/18 23:59 64 20 Nasal Cannula 2.0 28 08/31/18 23:56 Nasal Cannula 2.0 28 08/31/18 23:56 98 Nasal Cannula 2.0 28 Intake and Output 08/31/18 09/01/18 18:59 06:59 Intake Total 642.5 ml 1645.0 ml Output Total 375 ml 300 ml Balance 267.5 ml 1345.0 ml Free Water 150 ml IV Total 642.5 ml 895.0 ml Tube Feeding 600 ml Output Urine Total 375 ml 300 ml # Bowel Movements 1 Laboratory Tests 09/01/18 07:06: White Blood Count 10.9H, Red Blood Count 2.60L, Hemoglobin 7.9L, Hematocrit 25.2L, Mean Corpuscular Volume 97, Mean Corpuscular Hemoglobin 30.3, Mean Corpuscular Hemoglobin Concent 31.3L, Red Cell Distribution Width 16.7H, Platelet Count 152, Mean Platelet Volume 5.1L, Neutrophils (%) (Auto) , Lymphocytes (%) (Auto) , Monocytes (%) (Auto) , Eosinophils (%) (Auto) , Basophils (%) (Auto) , Differential Total Cells Counted 100, Neutrophils % ( Manual) 78H, Lymphocytes % (Manual) 14L, Monocytes % (Manual) 6, Eosinophils % ( Manual) 0, Basophils % (Manual) 0, Band Neutrophils 2, Platelet Estimate Adequate, Platelet Morphology Normal, Hypochromasia 2+, Anisocytosis 1+, Sodium Level 140, Potassium Level 4.8#, Chloride Level 114H, Carbon Dioxide Level 23, Anion Gap 3L, Blood Urea Nitrogen 9, Creatinine 0.5L, Estimat Glomerular Filtration Rate > 60, Glucose Level 208#H, Lactic Acid Level 1.80, Uric Acid 3.7 , Calcium Level 7.4#L, Phosphorus Level 2.3L, Magnesium Level 2.1, Iron Level 42L, Total Iron Binding Capacity 36L, Percent Iron Saturation 117H, Unsaturated Iron Binding -6L, Ferritin 531H, Total Bilirubin 0.2, Gamma Glutamyl Transpeptidase 127H, Aspartate Amino Transf (AST/SGOT) 14L, Alanine Aminotransferase (ALT/SGPT) 12, Alkaline Phosphatase 135H, Pro-B-Type Natriuretic Peptide 2982H, Total Protein 5.4#L, Albumin 1.4L, Globulin 4.0, Albumin/Globulin Ratio 0.3L, Vitamin B12 Level 1580H, Folate 17.7, Thyroid Stimulating Hormone (TSH) 6.146H Height (Feet): 6 Height (Inches): 0.40 Weight (Pounds): 164 Objective Elderly AA man NCAT supple CTA RRR Abd soft (+) Gina Graham MD Sep 01, 2018 21:06
[2018-09-02] VITALS: BP 124/63
[2018-09-02 04:00] VITALS: BP 121/70
[2018-09-02 07:19] LABS: HEMATOCRIT 24.6 % (42.0-52.0); HEMOGLOBIN 7.7 G/DL (14.2-18.0); MEAN CORPUSCULAR VOLUME 97 FL (80-99); PLATELET COUNT 150 K/UL (150-450); RED BLOOD COUNT 2.53 M/UL (4.70-6.10); RED CELL DISTRIBUTION WIDTH 16.7 % (11.6-14.8); WHITE BLOOD COUNT 12.1 K/UL (4.8-10.8)
[2018-09-02 07:40] LABS: ALANINE AMINOTRANSFERASE 11 U/L (12-78); ALBUMIN 1.1 G/DL (3.4-5.0); ALBUMIN/GLOBULIN RATIO 0.3 (1.0-2.7); ALKALINE PHOSPHATASE 124 U/L (46-116); ANION GAP 1 mmol/L (5-15); ASPARTATE AMINO TRANSFERASE 16 U/L (15-37); BILIRUBIN,TOTAL 0.2 MG/DL (0.2-1.0); BLOOD UREA NITROGEN 7 mg/dL (7-18); CALCIUM 7.6 MG/DL (8.5-10.1); CARBON DIOXIDE 26 MMOL/L (21-32); CHLORIDE 115 MMOL/L (98-107); CREATININE 0.4 MG/DL (0.55-1.30); PHOSPHORUS 1.3 MG/DL (2.5-4.9); POTASSIUM 4.7 MMOL/L (3.5-5.1); SODIUM 142 MMOL/L (136-145)
[2018-09-02 08:00] VITALS: BP 138/55
[2018-09-02] MEDS: Dakin's 0.125% Soln (Quarter Strength) 16oz TOPIC SCH (09:00)
[2018-09-02] MEDS: Lactobacillus-GG tablet GT SCH ×3 (10:44→17:20)
[2018-09-02] MEDS: Eliquis 2.5mg tablet NG SCH ×2 (10:45→21:12)
[2018-09-02] MEDS: Metoprolol 25mg tab PEG SCH ×2 (10:45→21:12)
[2018-09-02] MEDS: Spironolactone 25mg tab GT SCH ×2 (10:46→21:12)
[2018-09-02] MEDS: Amiodarone 200mg tab PEG SCH (10:46)
[2018-09-02] MEDS: Digoxin 0.125mg tab PEG SCH (10:46)
[2018-09-02] MEDS: Isoniazid 300mg tab GT SCH (10:46)
--- NOTE | 2018-09-02 11:41 | Surgery Progress Note ---
Surgery Progress Note Subjective Additional Comments no acute events. resting comfortable. labs noted. exam stable. c diff Objective Last 24 Hour Vital Signs Date Time Temp Pulse Resp B/P (MAP) Pulse Ox O2 Delivery O2 Flow Rate FiO2 09/02/18 10:46 76 09/02/18 10:45 76 122/71 09/02/18 08:35 78 18 Nasal Cannula 2.0 28 09/02/18 08:35 97 Nasal Cannula 2.0 28 09/02/18 08:35 Nasal Cannula 2.0 28 09/02/18 04:00 99.6 65 17 121/70 (87) 96 09/02/18 00:00 98.9 59 18 124/63 (83) 100 09/01/18 21:00 Nasal Cannula 2.0 09/01/18 20:46 70 135/75 09/01/18 20:00 99.2 70 18 135/75 (95) 93 09/01/18 16:00 98.9 69 18 141/81 (101) 99 09/01/18 12:00 98.4 75 18 158/88 (111) 100 I&O Intake and Output 09/01/18 09/02/18 19:00 07:00 Intake Total 510 ml 870 ml Output Total 750 ml 800 ml Balance -240 ml 70 ml Free Water 150 ml Tube Feeding 510 ml 720 ml Output Urine Total 750 ml 800 ml Dressing: saturated Wound: other Drains: other Cardiovascular: RSR Respiratory: clear, decreased breath sounds Abdomen: soft, present bowel sounds, non-distended Extremities: other Laboratory Tests Test 09/02/18 06:40 White Blood Count 12.1 K/UL (4.8-10.8) H Red Blood Count 2.53 M/UL (4.70-6.10) L Hemoglobin 7.7 G/DL (14.2-18.0) L Hematocrit 24.6 % (42.0-52.0) L Mean Corpuscular Volume 97 FL (80-99) Mean Corpuscular Hemoglobin 30.4 PG (27.0-31.0) Mean Corpuscular Hemoglobin Concent 31.3 G/DL (32.0-36.0) L Red Cell Distribution Width 16.7 % (11.6-14.8) H Platelet Count 150 K/UL (150-450) Mean Platelet Volume 5.5 FL (6.5-10.1) L Neutrophils (%) (Auto) % (45.0-75.0) Lymphocytes (%) (Auto) % (20.0-45.0) Monocytes (%) (Auto) % (1.0-10.0) Eosinophils (%) (Auto) % (0.0-3.0) Basophils (%) (Auto) % (0.0-2.0) Differential Total Cells Counted 100 Neutrophils % (Manual) 78 % (45-75) H Lymphocytes % (Manual) 15 % (20-45) L Monocytes % (Manual) 6 % (1-10) Eosinophils % (Manual) 1 % (0-3) Basophils % (Manual) 0 % (0-2) Band Neutrophils 0 % (0-8) Platelet Estimate Adequate Platelet Morphology Normal Hypochromasia 3+ Anisocytosis 1+ Sodium Level 142 MMOL/L (136-145) Potassium Level 4.7 MMOL/L (3.5-5.1) Chloride Level 115 MMOL/L (98-107) H Carbon Dioxide Level 26 MMOL/L (21-32) Anion Gap 1 mmol/L (5-15) L Blood Urea Nitrogen 7 mg/dL (7-18) Creatinine 0.4 MG/DL (0.55-1.30) L Estimat Glomerular Filtration Rate > 60 mL/min (>60) Glucose Level 147 MG/DL (74-106) H Uric Acid 3.4 MG/DL (2.6-7.2) Calcium Level 7.6 MG/DL (8.5-10.1) L Phosphorus Level 1.3 MG/DL (2.5-4.9) L Magnesium Level 1.7 MG/DL (1.8-2.4) L Total Bilirubin 0.2 MG/DL (0.2-1.0) Aspartate Amino Transf (AST/SGOT) 16 U/L (15-37) Alanine Aminotransferase (ALT/SGPT) 11 U/L (12-78) L Alkaline Phosphatase 124 U/L (46-116) H C-Reactive Protein, Quantitative 4.8 mg/dL (0.00-0.90) H Pro-B-Type Natriuretic Peptide 4105 pg/mL (0-125) H Total Protein 4.9 G/DL (6.4-8.2) L Albumin 1.1 G/DL (3.4-5.0) L Globulin 3.8 g/dL Albumin/Globulin Ratio 0.3 (1.0-2.7) L Digoxin Level 0.6 NG/ML (0.5-2.0) Plan Problems: (1) Sepsis Assessment & Plan: IV abx trend labs will monitor wounds s/p wound cleaning/debridement s/p PEG C diff treatment per ID Abx recently changed. Micro noted path noted (2) Decubitus skin ulcer Assessment & Plan: Pt presented on admission with multiple full thickness pressure injuries. Full thickness pressure injury to L elbow.Base of wound wound with 25% fibrinous slough,75% pink granulation noted.(+) maceration along borders. erythema without elevation in skin temp periwound(L)1.5cm x (W)1.8cm x(D)0.3cm. Full thickness pressure injury R trochanter .Base of wound with pink granulation.Edges adherent to base of wound .No odor or exudate noted.Darker skin tone without induration periwound. (L)4.5cm x (W)6.3cm x (D) 3cm.Undermining 12-3 by 3cm @12o'clock. Full thickness pressure injury to R ischium .Wound is malodorous.90% soft necrosis,10% pink noted at base of wound ,(+) epibole along edges .Periwound darker in skin tone and is indurated.(L)8.4cm x (W)4.3cm (D)2.5cm .Tunneling at 1o'clock by 3.6cm ,tunneling @5o'clock by 6.3cm. Full thickness sacral pressure injury with 80% soft necrosis ,20% pink granulation .Wound is malodorous with small amt brown exudate (L)8.5cm x (W)5cm x (D)2.5cm ,undermining 8-5 by 4.7cm @1o'clock. wounds with gross drainage poor nutritional status. prognosis concerning follow up wounds eval with team performed and L elbow wound with 60% mixed yellow /pope slough with surrounding pink granulation (L)4.5cm x (W)2.7cm. Dark skin tone periwound. Minimal serous exudate without odor noted to drsg upon removal. Second wound proximally but in close proximity to L elbow granular with trace biofilm (L)2.3cm x (W)2.4cm.Edges adherent and flat .No odor or exudate noted. Full thickness pressure injury to R trochanter with pink granulation. Small area of bone visible at base of wound. Edges adherent and flat. No odor or exudate noted (L)3.5cm x (W)6cm x (D)3.1cm. Dark skin tone periwound. Full thickness pressure injury R ischium with tunneling at 6o'clock with 80% loose -Soft necrosis at base of wound with surrounding pink granulation along inner wall of wound.#2 small areas along borders with soft loosening necrosis. No odor noted .Periwound less indurated but with darker skin tone. (L)7cm x (W) 2.9 x(D)5cm ,tunneling at 6o'clock by 5cm. Full thickness sacral pressure injury with undermining, 75% mixed soft necrosis and slough, 25% pink granulation. Small amt serosanguineous exudate without odor noted .Edges are mostly adherent with scattered areas that are non- adherent with yellow slough. (L)10cm x (W)8.2cm x (D)2.3cm ,undermining 6-3 by 4.2cm @12o'clock. Resolving partial thickness wound L hip base of wound is moist -viable .Edges adherent to base of wound .Periwound without fluctuance or induration. (L)3.9cm x(W)3cm. L ischial partial thickness wound resolving.Base of wound is pink -moist .(+) maceration long borders. Periwound without erythema or induration (L)2cm x (W) 1.2cm. No odor or exudate noted. Patients wounds with dressing changes going well but continues to have large wounds that require significant care. Recently feeding tube placement and tolerating feeds with increased nutrition will hopefully be able to begin healing wounds Tx.Plan: Cleanse R trochanter with Dakin's 0.125% candelaria. Loosely pack with Dakin's soaked kerlix .Cover with Optifoam drsg TID and prn. Cleanse R Ischial wound with Dakin's 0.125% candelaria.Loosely pack with Dakin's soaked kerlix. Cavilon Skin Barrier periwound. Cover with Optifoam drsg TID and prn. Cleanse Sacral wound with dakin's 0.125% candelaria.Loosely pack with Dakin's soaked kerlix.Cavilon Skin Barrier periwound.Cover with Optifoam drsg TID and prn. Cleanse L elbow with Dakin's 0.125% candelaria. Apply Dakin's moist 2x2 gauze. Cover with Optifoam drsg TID and prn. Quartet Air fluidized mattress. Reposition L side to back at least every 2hours or as tolerated. Goyo Osuna Sep 02, 2018 11:41
[2018-09-02 12:00] VITALS: BP 119/62
--- NOTE | 2018-09-02 12:24 | Infectious Diseases Prog Note ---
Assessment/Plan Assessment/Plan Sepsis-2ry to bacteremia (likley from GI translocation ) -CT abd/p" Colonic mural thickening consistent with some form of colitis. No pneumatosis or extraluminal air. C Diff , ongoing diarrhea -Cdif toxin a/b + -Bcx 08/21 GNR, 08/21 ESBL Proteus mirabilis (S Ertapenem, Zosyn), 08/21 Group C strep ; 08/15 Bcx 07/24 Prevotella L . (R Clinda, Unasyn; S flagyl) ;08/17 Bcx 07/24 EUBACTERIUM LENTUM 08/21 Bcx Neg -u/a no pyuria -CXR: Suspect a small left pleural effusion. Mild basal atelectasis -influenza sc neg Fever, SP Leukocytosis , mild recurrent -08/28 CXR: There is decreased consolidation at the right lung base. There is some residual perihilar atelectasis. Hx of lung cavitary lesion/ PNA- suspect likely to aspiration; lower suspicion for TB and/or fungal etiologies -06/08 CT chest: * Interval resolution of the cavitary component associated with the previously described anterior right upper lobe opacity. It is slightly decreased in size and more nodular in appearance on today's exam. Additional patchy opacities in the posterior right upper lobe are also slightly decreased in size and appear more nodular (previously were groundglass). Findings likely related to evolving infectious or inflammatory lesions however continued follow-up is recommended to assure resolution/exclude the possibility of neoplastic etiologies. -CT c/a/p: 10 mm opacity in the peripheral anterolateral right upper lobe with small central cavitation. Patchy groundglass opacity in the posterior right upper lobe. Suspect that these represent inflammatory/infectious lesions, but neoplastic etiology of either is certainly possible. Large left and moderate right pleural effusions. Resultant compressive atelectasis of portions of the lower lobes. 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 Hypertension. Multiple decubiti ulcers (elbow, sacral) -not infected Bipolar disorder. Coronary artery disease. VRE and MRSA colonized Plan: -Continue PO Fidaxomicin #08/27 given ongoing diarrhea despite oral vancomycin -Cont INH for latent TB -08/31 SP PO Vancomycin #17 -08/29 SP Meropenem #13 -08/26 SP Flagyl #5 -08/17 SP Zosyn #3, Daptomycin #3 -08/15 SP Tamiflu #2, Ceftriaxone # -08/14 SP Cefepime and LEvaquin x1 -Monitor CBC/CMP, temperatures -wound care -aspiration precautions -Sx f/u Subjective Allergies: Coded Allergies: MILK (Verified Allergy, Unknown, 02/02/18) Subjective afebrile leukocytosis Objective Vital Signs Last 24 Hour Vital Signs Date Time Temp Pulse Resp B/P (MAP) Pulse Ox O2 Delivery O2 Flow Rate FiO2 09/02/18 10:46 76 09/02/18 10:45 76 122/71 09/02/18 08:35 78 18 Nasal Cannula 2.0 28 09/02/18 08:35 97 Nasal Cannula 2.0 28 09/02/18 08:35 Nasal Cannula 2.0 28 09/02/18 04:00 99.6 65 17 121/70 (87) 96 09/02/18 00:00 98.9 59 18 124/63 (83) 100 09/01/18 21:00 Nasal Cannula 2.0 09/01/18 20:46 70 135/75 09/01/18 20:00 99.2 70 18 135/75 (95) 93 09/01/18 16:00 98.9 69 18 141/81 (101) 99 Height (Feet): 6 Height (Inches): 0.40 Weight (Pounds): 164 Objective General appearance: alert, cooperative, no distress, appears stated age Head: Normocephalic, without obvious abnormality, atraumatic Eyes: conjunctivae/corneas clear. PERRL, EOM's intact. Fundi benign Throat: Lips, mucosa, and tongue normal. Teeth and gums normal Neck: supple, symmetrical, trachea midline, no adenopathy, thyroid: not enlarged, symmetric, no tenderness/mass/nodules, no carotid bruit and no JVD Lungs: clear to auscultation bilaterally Heart: regular rate and rhythm, S1, S2 normal, no murmur, click, rub or gallop Abdomen: soft, non-tender. Bowel sounds normal. No masses, no organomegaly Extremities: extremities normal, atraumatic, no cyanosis or edema/ s/p bilateral aka Pulses: 2+ and symmetric Skin: Skin color, texture, turgor normal. No rashes or lesions. multiple large decubitus ulcers. Neurologic: Grossly normal Laboratory Tests Test 09/02/18 06:40 White Blood Count 12.1 K/UL (4.8-10.8) H Red Blood Count 2.53 M/UL (4.70-6.10) L Hemoglobin 7.7 G/DL (14.2-18.0) L Hematocrit 24.6 % (42.0-52.0) L Mean Corpuscular Volume 97 FL (80-99) Mean Corpuscular Hemoglobin 30.4 PG (27.0-31.0) Mean Corpuscular Hemoglobin Concent 31.3 G/DL (32.0-36.0) L Red Cell Distribution Width 16.7 % (11.6-14.8) H Platelet Count 150 K/UL (150-450) Mean Platelet Volume 5.5 FL (6.5-10.1) L Neutrophils (%) (Auto) % (45.0-75.0) Lymphocytes (%) (Auto) % (20.0-45.0) Monocytes (%) (Auto) % (1.0-10.0) Eosinophils (%) (Auto) % (0.0-3.0) Basophils (%) (Auto) % (0.0-2.0) Differential Total Cells Counted 100 Neutrophils % (Manual) 78 % (45-75) H Lymphocytes % (Manual) 15 % (20-45) L Monocytes % (Manual) 6 % (1-10) Eosinophils % (Manual) 1 % (0-3) Basophils % (Manual) 0 % (0-2) Band Neutrophils 0 % (0-8) Platelet Estimate Adequate Platelet Morphology Normal Hypochromasia 3+ Anisocytosis 1+ Sodium Level 142 MMOL/L (136-145) Potassium Level 4.7 MMOL/L (3.5-5.1) Chloride Level 115 MMOL/L (98-107) H Carbon Dioxide Level 26 MMOL/L (21-32) Anion Gap 1 mmol/L (5-15) L Blood Urea Nitrogen 7 mg/dL (7-18) Creatinine 0.4 MG/DL (0.55-1.30) L Estimat Glomerular Filtration Rate > 60 mL/min (>60) Glucose Level 147 MG/DL (74-106) H Uric Acid 3.4 MG/DL (2.6-7.2) Calcium Level 7.6 MG/DL (8.5-10.1) L Phosphorus Level 1.3 MG/DL (2.5-4.9) L Magnesium Level 1.7 MG/DL (1.8-2.4) L Total Bilirubin 0.2 MG/DL (0.2-1.0) Aspartate Amino Transf (AST/SGOT) 16 U/L (15-37) Alanine Aminotransferase (ALT/SGPT) 11 U/L (12-78) L Alkaline Phosphatase 124 U/L (46-116) H C-Reactive Protein, Quantitative 4.8 mg/dL (0.00-0.90) H Pro-B-Type Natriuretic Peptide 4105 pg/mL (0-125) H Total Protein 4.9 G/DL (6.4-8.2) L Albumin 1.1 G/DL (3.4-5.0) L Globulin 3.8 g/dL Albumin/Globulin Ratio 0.3 (1.0-2.7) L Digoxin Level 0.6 NG/ML (0.5-2.0) Current Medications Medications (Trade) Dose Ordered Sig/Erlin Route PRN Reason Start Time Stop Time Status Last Admin Dose Admin Acetaminophen (Tylenol) 650 mg Q4H PRN PEG Mild Pain (Pain Scale 1-3) 08/31/18 02:02 09/13/18 02:01 Acetaminophen (Tylenol) 650 mg Q6H PRN PEG Temp > 100.5 08/31/18 02:02 09/13/18 02:01 Amiodarone HCl (Cordarone) 200 mg DAILY PEG 08/31/18 09:00 09/19/18 08:59 09/02/18 10:46 Apixaban (Eliquis) 2.5 mg Q12HR NG 08/31/18 09:00 09/29/18 20:59 09/02/18 10:45 Aripiprazole (Abilify) 5 mg BID ORAL 08/31/18 09:00 09/13/18 08:59 09/02/18 10:46 Chlorhexidine Gluconate (Yari-Hex 2%) 1 applic DAILY@2000 TOPIC 08/31/18 20:00 09/21/18 19:59 09/01/18 20:45 Clonidine HCl (Catapres Tab) 0.1 mg Q4H PRN GT For High Blood Pressure 08/31/18 15:44 09/21/18 15:43 Digoxin (Lanoxin) 0.125 mg DAILY PEG 08/31/18 09:00 09/19/18 08:59 09/02/18 10:46 Fidaxomicin (Dificid) 200 mg EVERY 12 HOURS ORAL 08/31/18 21:00 09/07/18 20:59 09/01/18 20:54 Isoniazid (Inh) 300 mg DAILY GT 08/31/18 09:00 09/13/18 08:59 09/02/18 10:46 Lactobacillus Acidophilus (Culturelle) 1 tab THREE TIMES A DAY GT 08/31/18 09:00 09/18/18 08:59 09/02/18 10:44 Lansoprazole (Prevacid) 30 mg BID GT 09/01/18 18:00 10/01/18 17:59 09/02/18 10:44 Loperamide HCl (Imodium) 2 mg EVERY 8 HOURS NG 08/31/18 06:00 09/29/18 13:59 09/02/18 05:48 Metoprolol Tartrate (Lopressor) 25 mg Q12HR PEG 08/31/18 09:00 09/22/18 20:59 09/02/18 10:45 Sodium Hypochlorite (Dakin's Quarter Strength) 1 applic DAILY TOPIC 08/31/18 09:00 09/13/18 15:59 09/01/18 10:42 Spironolactone (Aldactone) 25 mg EVERY 12 HOURS GT 08/31/18 21:00 09/30/18 20:59 09/02/18 10:46 Alma Elkins M.D. Sep 02, 2018 12:24
--- NOTE | 2018-09-02 13:47 | Nephrology Progress Note ---
Assessment/Plan Problem List: (1) Hypokalemia Assessment: also Low Phos and Low Mag (2) HTN (hypertension) (3) Atrial fibrillation (4) Clostridium difficile colitis (5) Decubitus ulcer (6) Anemia Assessment Low Phos Low K Low Mag C deficil colitis Sepsis Decubiti Anemia CVA At fib Plan K , Mag , Phos supplement IV as needed until diarrhea subcides per orders Aldactone Monitor labs per consultants discussed with Dr Montesinos Subjective ROS Limited/Unobtainable: No Constitutional: Reports: malaise, weakness Objective Objective Last 24 Hour Vital Signs Date Time Temp Pulse Resp B/P (MAP) Pulse Ox O2 Delivery O2 Flow Rate FiO2 09/02/18 10:46 76 09/02/18 10:45 76 122/71 09/02/18 08:35 78 18 Nasal Cannula 2.0 28 09/02/18 08:35 97 Nasal Cannula 2.0 28 09/02/18 08:35 Nasal Cannula 2.0 28 09/02/18 04:00 99.6 65 17 121/70 (87) 96 09/02/18 00:00 98.9 59 18 124/63 (83) 100 09/01/18 21:00 Nasal Cannula 2.0 09/01/18 20:46 70 135/75 09/01/18 20:00 99.2 70 18 135/75 (95) 93 09/01/18 16:00 98.9 69 18 141/81 (101) 99 Intake and Output 09/01/18 09/02/18 19:00 07:00 Intake Total 510 ml 870 ml Output Total 750 ml 800 ml Balance -240 ml 70 ml Free Water 150 ml Tube Feeding 510 ml 720 ml Output Urine Total 750 ml 800 ml Laboratory Tests 09/02/18 06:40: White Blood Count 12.1H, Red Blood Count 2.53L, Hemoglobin 7.7L, Hematocrit 24.6L, Mean Corpuscular Volume 97, Mean Corpuscular Hemoglobin 30.4, Mean Corpuscular Hemoglobin Concent 31.3L, Red Cell Distribution Width 16.7H, Platelet Count 150, Mean Platelet Volume 5.5L, Neutrophils (%) (Auto) , Lymphocytes (%) (Auto) , Monocytes (%) (Auto) , Eosinophils (%) (Auto) , Basophils (%) (Auto) , Differential Total Cells Counted 100, Neutrophils % ( Manual) 78H, Lymphocytes % (Manual) 15L, Monocytes % (Manual) 6, Eosinophils % ( Manual) 1, Basophils % (Manual) 0, Band Neutrophils 0, Platelet Estimate Adequate, Platelet Morphology Normal, Hypochromasia 3+, Anisocytosis 1+, Sodium Level 142, Potassium Level 4.7, Chloride Level 115H, Carbon Dioxide Level 26, Anion Gap 1L, Blood Urea Nitrogen 7, Creatinine 0.4L, Estimat Glomerular Filtration Rate > 60, Glucose Level 147H, Uric Acid 3.4, Calcium Level 7.6L, Phosphorus Level 1.3L, Magnesium Level 1.7L, Total Bilirubin 0.2, Aspartate Amino Transf (AST/SGOT) 16, Alanine Aminotransferase (ALT/SGPT) 11L, Alkaline Phosphatase 124H, C-Reactive Protein, Quantitative 4.8H, Pro-B-Type Natriuretic Peptide 4105H, Total Protein 4.9L, Albumin 1.1L, Globulin 3.8, Albumin/Globulin Ratio 0.3L, Digoxin Level 0.6 Height (Feet): 6 Height (Inches): 0.40 Weight (Pounds): 164 General Appearance: no apparent distress Respiratory/Chest: decreased breath sounds Abdomen: distended Ruy Colvin MD Sep 02, 2018 13:47
[2018-09-02] MEDS ORDERED: Sodium Phosphate 30 MM in NS 275 ML IVPB SCH (15:00)
--- NOTE | 2018-09-02 15:06 | General Progress Note ---
Assessment/Plan Assessment/Plan Assessment - C Difficile colitis - abnormal lytes - failed swallow eval - s/p PEG - s/p b/l AKA - anemia - duodenal ulcers - bacteremia, leukocytosis - improving Recommendations - abx per ID - probiotics - elevate HOB - replace electrolytes - IVF - transfuse PRN - PPI>>> will dc -pepcid BID -stool ob - TF - anticoagulation - Poor Px Subjective Allergies: Coded Allergies: MILK (Verified Allergy, Unknown, 02/02/18) Objective Last 24 Hour Vital Signs Date Time Temp Pulse Resp B/P (MAP) Pulse Ox O2 Delivery O2 Flow Rate FiO2 09/02/18 10:46 76 09/02/18 10:45 76 122/71 09/02/18 08:35 78 18 Nasal Cannula 2.0 28 09/02/18 08:35 97 Nasal Cannula 2.0 28 09/02/18 08:35 Nasal Cannula 2.0 28 09/02/18 04:00 99.6 65 17 121/70 (87) 96 09/02/18 00:00 98.9 59 18 124/63 (83) 100 09/01/18 21:00 Nasal Cannula 2.0 09/01/18 20:46 70 135/75 09/01/18 20:00 99.2 70 18 135/75 (95) 93 09/01/18 16:00 98.9 69 18 141/81 (101) 99 Intake and Output 09/01/18 09/02/18 19:00 07:00 Intake Total 510 ml 870 ml Output Total 750 ml 800 ml Balance -240 ml 70 ml Free Water 150 ml Tube Feeding 510 ml 720 ml Output Urine Total 750 ml 800 ml Laboratory Tests 09/02/18 06:40: White Blood Count 12.1H, Red Blood Count 2.53L, Hemoglobin 7.7L, Hematocrit 24.6L, Mean Corpuscular Volume 97, Mean Corpuscular Hemoglobin 30.4, Mean Corpuscular Hemoglobin Concent 31.3L, Red Cell Distribution Width 16.7H, Platelet Count 150, Mean Platelet Volume 5.5L, Neutrophils (%) (Auto) , Lymphocytes (%) (Auto) , Monocytes (%) (Auto) , Eosinophils (%) (Auto) , Basophils (%) (Auto) , Differential Total Cells Counted 100, Neutrophils % ( Manual) 78H, Lymphocytes % (Manual) 15L, Monocytes % (Manual) 6, Eosinophils % ( Manual) 1, Basophils % (Manual) 0, Band Neutrophils 0, Platelet Estimate Adequate, Platelet Morphology Normal, Hypochromasia 3+, Anisocytosis 1+, Sodium Level 142, Potassium Level 4.7, Chloride Level 115H, Carbon Dioxide Level 26, Anion Gap 1L, Blood Urea Nitrogen 7, Creatinine 0.4L, Estimat Glomerular Filtration Rate > 60, Glucose Level 147H, Uric Acid 3.4, Calcium Level 7.6L, Phosphorus Level 1.3L, Magnesium Level 1.7L, Total Bilirubin 0.2, Aspartate Amino Transf (AST/SGOT) 16, Alanine Aminotransferase (ALT/SGPT) 11L, Alkaline Phosphatase 124H, C-Reactive Protein, Quantitative [Pending], Pro-B-Type Natriuretic Peptide 4105H, Total Protein 4.9L, Albumin 1.1L, Globulin 3.8, Albumin/Globulin Ratio 0.3L, Digoxin Level 0.6 Height (Feet): 6 Height (Inches): 0.40 Weight (Pounds): 164 General Appearance: no apparent distress EENT: normal ENT inspection Neck: supple Cardiovascular: normal rate Respiratory/Chest: decreased breath sounds Abdomen: normal bowel sounds, non tender, soft Extremities: non-tender Nhan Aguirre MD Sep 02, 2018 15:06
[2018-09-02 16:00] VITALS: BP 138/55
--- NOTE | 2018-09-02 16:41 | Cardiac Electrophysiology PN ---
Assessment/Plan Assessment/Plan 1. Atrial fibrillation with rapid ventricular response. In SR on metoprolol 50 mg bid, digoxin 0.125, amiodarone 200 daily and Eliquis 2. Fever and sepsis with Positive blood culture. IV antibiotics per Dr. Parker. 3. Dementia and psychosis. 4. 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 5. Sacral decubitus.S/P debridement 6. C. Diff colitis.On Flagyl 7. Hypotension. Resolved. 8. Hypokalemia, on Aldactone 25 bid 9. Anemia, S/P PRBC. 10. Dysphagia. S/P PEG DW RN Subjective Subjective In isolation in NAD. No events. Objective Last 24 Hour Vital Signs Date Time Temp Pulse Resp B/P (MAP) Pulse Ox O2 Delivery O2 Flow Rate FiO2 09/02/18 10:46 76 09/02/18 10:45 76 122/71 09/02/18 08:35 78 18 Nasal Cannula 2.0 28 09/02/18 08:35 97 Nasal Cannula 2.0 28 09/02/18 08:35 Nasal Cannula 2.0 28 09/02/18 04:00 99.6 65 17 121/70 (87) 96 09/02/18 00:00 98.9 59 18 124/63 (83) 100 09/01/18 21:00 Nasal Cannula 2.0 09/01/18 20:46 70 135/75 09/01/18 20:00 99.2 70 18 135/75 (95) 93 Intake and Output 09/01/18 09/02/18 19:00 07:00 Intake Total 510 ml 870 ml Output Total 750 ml 800 ml Balance -240 ml 70 ml Free Water 150 ml Tube Feeding 510 ml 720 ml Output Urine Total 750 ml 800 ml Laboratory Tests Test 09/02/18 06:40 White Blood Count 12.1 K/UL (4.8-10.8) H Red Blood Count 2.53 M/UL (4.70-6.10) L Hemoglobin 7.7 G/DL (14.2-18.0) L Hematocrit 24.6 % (42.0-52.0) L Mean Corpuscular Volume 97 FL (80-99) Mean Corpuscular Hemoglobin 30.4 PG (27.0-31.0) Mean Corpuscular Hemoglobin Concent 31.3 G/DL (32.0-36.0) L Red Cell Distribution Width 16.7 % (11.6-14.8) H Platelet Count 150 K/UL (150-450) Mean Platelet Volume 5.5 FL (6.5-10.1) L Neutrophils (%) (Auto) % (45.0-75.0) Lymphocytes (%) (Auto) % (20.0-45.0) Monocytes (%) (Auto) % (1.0-10.0) Eosinophils (%) (Auto) % (0.0-3.0) Basophils (%) (Auto) % (0.0-2.0) Differential Total Cells Counted 100 Neutrophils % (Manual) 78 % (45-75) H Lymphocytes % (Manual) 15 % (20-45) L Monocytes % (Manual) 6 % (1-10) Eosinophils % (Manual) 1 % (0-3) Basophils % (Manual) 0 % (0-2) Band Neutrophils 0 % (0-8) Platelet Estimate Adequate Platelet Morphology Normal Hypochromasia 3+ Anisocytosis 1+ Sodium Level 142 MMOL/L (136-145) Potassium Level 4.7 MMOL/L (3.5-5.1) Chloride Level 115 MMOL/L (98-107) H Carbon Dioxide Level 26 MMOL/L (21-32) Anion Gap 1 mmol/L (5-15) L Blood Urea Nitrogen 7 mg/dL (7-18) Creatinine 0.4 MG/DL (0.55-1.30) L Estimat Glomerular Filtration Rate > 60 mL/min (>60) Glucose Level 147 MG/DL (74-106) H Uric Acid 3.4 MG/DL (2.6-7.2) Calcium Level 7.6 MG/DL (8.5-10.1) L Phosphorus Level 1.3 MG/DL (2.5-4.9) L Magnesium Level 1.7 MG/DL (1.8-2.4) L Total Bilirubin 0.2 MG/DL (0.2-1.0) Aspartate Amino Transf (AST/SGOT) 16 U/L (15-37) Alanine Aminotransferase (ALT/SGPT) 11 U/L (12-78) L Alkaline Phosphatase 124 U/L (46-116) H C-Reactive Protein, Quantitative Pending Pro-B-Type Natriuretic Peptide 4105 pg/mL (0-125) H Total Protein 4.9 G/DL (6.4-8.2) L Albumin 1.1 G/DL (3.4-5.0) L Globulin 3.8 g/dL Albumin/Globulin Ratio 0.3 (1.0-2.7) L Digoxin Level 0.6 NG/ML (0.5-2.0) Objective HEAD AND NECK: No JVD. LUNGS: Have coarse rhonchi. CARDIOVASCULAR: Irregular S1 and S2 with no gallop or murmur. ABDOMEN: Soft.PEG in place EXTREMITIES: Bilateral above-knee amputation. Amandeep Arora MD Sep 02, 2018 16:41
--- NOTE | 2018-09-02 17:00 | Internal Med Progress Note ---
Subjective Physician Name Pedro Caban Attending Physician Pedro Caban MD Current Medications Medications (Trade) Dose Ordered Sig/Erlin Route PRN Reason Start Time Stop Time Status Last Admin Dose Admin Acetaminophen (Tylenol) 650 mg Q4H PRN PEG Mild Pain (Pain Scale 1-3) 08/31/18 02:02 09/13/18 02:01 Acetaminophen (Tylenol) 650 mg Q6H PRN PEG Temp > 100.5 08/31/18 02:02 09/13/18 02:01 Amiodarone HCl (Cordarone) 200 mg DAILY PEG 08/31/18 09:00 09/19/18 08:59 09/02/18 10:46 Apixaban (Eliquis) 2.5 mg Q12HR NG 08/31/18 09:00 09/29/18 20:59 09/02/18 10:45 Aripiprazole (Abilify) 5 mg BID ORAL 08/31/18 09:00 09/13/18 08:59 09/02/18 10:46 Chlorhexidine Gluconate (Yari-Hex 2%) 1 applic DAILY@1999 TOPIC 08/31/18 20:00 09/21/18 19:59 09/01/18 20:45 Clonidine HCl (Catapres Tab) 0.1 mg Q4H PRN GT For High Blood Pressure 08/31/18 15:44 09/21/18 15:43 Digoxin (Lanoxin) 0.125 mg DAILY PEG 08/31/18 09:00 09/19/18 08:59 09/02/18 10:46 Famotidine (Pepcid) 20 mg BID ORAL 09/02/18 18:00 10/02/18 17:59 Fidaxomicin (Dificid) 200 mg EVERY 12 HOURS ORAL 08/31/18 21:00 09/07/18 20:59 09/02/18 14:13 Isoniazid (Inh) 300 mg DAILY GT 08/31/18 09:00 09/13/18 08:59 09/02/18 10:46 Lactobacillus Acidophilus (Culturelle) 1 tab THREE TIMES A DAY GT 08/31/18 09:00 09/18/18 08:59 09/02/18 14:08 Loperamide HCl (Imodium) 2 mg EVERY 8 HOURS NG 08/31/18 06:00 09/29/18 13:59 09/02/18 14:08 Metoprolol Tartrate (Lopressor) 25 mg Q12HR PEG 08/31/18 09:00 09/22/18 20:59 09/02/18 10:45 Sodium Hypochlorite (Dakin's Quarter Strength) 1 applic DAILY TOPIC 08/31/18 09:00 09/13/18 15:59 09/01/18 10:42 Sodium Phosphate 30 mm/Sodium Chloride 285 ml @ 47.5 mls/hr ONCE IVPB 09/02/18 15:00 09/02/18 21:00 09/02/18 15:17 Spironolactone (Aldactone) 25 mg EVERY 12 HOURS GT 08/31/18 21:00 09/30/18 20:59 09/02/18 10:46 Allergies: Coded Allergies: MILK (Verified Allergy, Unknown, 02/02/18) Subjective open eyes, not verbal, rectal tube. Objective Last Vital Signs Date Time Temp Pulse Resp B/P (MAP) Pulse Ox O2 Delivery O2 Flow Rate FiO2 09/02/18 10:46 76 09/02/18 10:45 122/71 09/02/18 08:35 18 Nasal Cannula 2.0 28 09/02/18 08:35 97 09/02/18 04:00 99.6 Laboratory Tests Test 09/02/18 06:40 White Blood Count 12.1 K/UL (4.8-10.8) H Red Blood Count 2.53 M/UL (4.70-6.10) L Hemoglobin 7.7 G/DL (14.2-18.0) L Hematocrit 24.6 % (42.0-52.0) L Mean Corpuscular Volume 97 FL (80-99) Mean Corpuscular Hemoglobin 30.4 PG (27.0-31.0) Mean Corpuscular Hemoglobin Concent 31.3 G/DL (32.0-36.0) L Red Cell Distribution Width 16.7 % (11.6-14.8) H Platelet Count 150 K/UL (150-450) Mean Platelet Volume 5.5 FL (6.5-10.1) L Neutrophils (%) (Auto) % (45.0-75.0) Lymphocytes (%) (Auto) % (20.0-45.0) Monocytes (%) (Auto) % (1.0-10.0) Eosinophils (%) (Auto) % (0.0-3.0) Basophils (%) (Auto) % (0.0-2.0) Differential Total Cells Counted 100 Neutrophils % (Manual) 78 % (45-75) H Lymphocytes % (Manual) 15 % (20-45) L Monocytes % (Manual) 6 % (1-10) Eosinophils % (Manual) 1 % (0-3) Basophils % (Manual) 0 % (0-2) Band Neutrophils 0 % (0-8) Platelet Estimate Adequate Platelet Morphology Normal Hypochromasia 3+ Anisocytosis 1+ Sodium Level 142 MMOL/L (136-145) Potassium Level 4.7 MMOL/L (3.5-5.1) Chloride Level 115 MMOL/L (98-107) H Carbon Dioxide Level 26 MMOL/L (21-32) Anion Gap 1 mmol/L (5-15) L Blood Urea Nitrogen 7 mg/dL (7-18) Creatinine 0.4 MG/DL (0.55-1.30) L Estimat Glomerular Filtration Rate > 60 mL/min (>60) Glucose Level 147 MG/DL (74-106) H Uric Acid 3.4 MG/DL (2.6-7.2) Calcium Level 7.6 MG/DL (8.5-10.1) L Phosphorus Level 1.3 MG/DL (2.5-4.9) L Magnesium Level 1.7 MG/DL (1.8-2.4) L Total Bilirubin 0.2 MG/DL (0.2-1.0) Aspartate Amino Transf (AST/SGOT) 16 U/L (15-37) Alanine Aminotransferase (ALT/SGPT) 11 U/L (12-78) L Alkaline Phosphatase 124 U/L (46-116) H C-Reactive Protein, Quantitative Pending Pro-B-Type Natriuretic Peptide 4105 pg/mL (0-125) H Total Protein 4.9 G/DL (6.4-8.2) L Albumin 1.1 G/DL (3.4-5.0) L Globulin 3.8 g/dL Albumin/Globulin Ratio 0.3 (1.0-2.7) L Digoxin Level 0.6 NG/ML (0.5-2.0) Intake and Output 3/15/19 3/16/19 19:00 07:00 Intake Total 510 ml 870 ml Output Total 750 ml 800 ml Balance -240 ml 70 ml Free Water 150 ml Tube Feeding 510 ml 720 ml Output Urine Total 750 ml 800 ml Objective General: No acute distress, less responsive, open eyes only, not verbal HEENT: NCAT, sclera anicteric, PERRL, EOMI Neck: Supple, no significant jugular venous distention, Lungs: Fair inspiratory effort,decrease bilateral air entry at bases.l no Wheeze or Rales. Heart: Regular rate and rhythm, normal S1/S2, no murmur Abdomen: soft, generalized tenderness, less distended. Normoactive bowel sounds , Rectal Tube, PEG site intact. Extremities: No Cyanosis , clubbing or edema. bilateral AKA, stump edema, RUE Piccline. Neuro: A&O x 1, Able to move upper extremities. SKIN: Multiple Decubi ulceration Assessment/Plan Assessment/Plan (1) Sepsis / bacteremia. 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 FAM Goyal F/U with ID recommendations Pedro Caban MD Sep 02, 2018 17:00
--- NOTE | 2018-09-02 17:25 | Pulmonology Progress Note ---
Assessment/Plan Problems: (1) Clostridium difficile colitis (2) Acute metabolic encephalopathy (3) Sepsis (4) Decubitus skin ulcer (5) UTI (urinary tract infection) (6) Anemia (7) CVA (cerebral vascular accident) Assessment/Plan unchanged mental status afebrile telemetry records reviewed, still tachy with PAC's and PVC's junctional rhythm on vancomycin PO check electrolytes continue current meds. dvt prophylaxis. got his PEG K, phos, mg supplement med/surg dc planning Subjective Constitutional: Reports: no symptoms HEENT: Repors: no symptoms Allergies: Coded Allergies: MILK (Verified Allergy, Unknown, 02/02/18) Objective Last 24 Hour Vital Signs Date Time Temp Pulse Resp B/P (MAP) Pulse Ox O2 Delivery O2 Flow Rate FiO2 09/02/18 16:00 98.0 75 18 138/55 (82) 09/02/18 12:00 98.6 60 16 119/62 (81) 98 09/02/18 10:46 76 09/02/18 10:45 76 122/71 09/02/18 08:35 78 18 Nasal Cannula 2.0 28 09/02/18 08:35 97 Nasal Cannula 2.0 28 09/02/18 08:35 Nasal Cannula 2.0 28 09/02/18 08:00 98.0 75 18 138/55 (82) 100 09/02/18 04:00 99.6 65 17 121/70 (87) 96 09/02/18 00:00 98.9 59 18 124/63 (83) 100 09/01/18 21:00 Nasal Cannula 2.0 09/01/18 20:46 70 135/75 09/01/18 20:00 99.2 70 18 135/75 (95) 93 Intake and Output 09/01/18 09/02/18 19:00 07:00 Intake Total 510 ml 870 ml Output Total 750 ml 800 ml Balance -240 ml 70 ml Free Water 150 ml Tube Feeding 510 ml 720 ml Output Urine Total 750 ml 800 ml Objective General Appearance: WD/WN HEENT: normocephalic, atraumatic Respiratory/Chest: chest wall non-tender, lungs clear Cardiovascular: normal peripheral pulses, normal rate Abdomen: normal bowel sounds, soft, non tender Extremities: no cyanosis Skin: extensive decubiti Laboratory Tests 09/02/18 06:40: White Blood Count 12.1H, Red Blood Count 2.53L, Hemoglobin 7.7L, Hematocrit 24.6L, Mean Corpuscular Volume 97, Mean Corpuscular Hemoglobin 30.4, Mean Corpuscular Hemoglobin Concent 31.3L, Red Cell Distribution Width 16.7H, Platelet Count 150, Mean Platelet Volume 5.5L, Neutrophils (%) (Auto) , Lymphocytes (%) (Auto) , Monocytes (%) (Auto) , Eosinophils (%) (Auto) , Basophils (%) (Auto) , Differential Total Cells Counted 100, Neutrophils % ( Manual) 78H, Lymphocytes % (Manual) 15L, Monocytes % (Manual) 6, Eosinophils % ( Manual) 1, Basophils % (Manual) 0, Band Neutrophils 0, Platelet Estimate Adequate, Platelet Morphology Normal, Hypochromasia 3+, Anisocytosis 1+, Sodium Level 142, Potassium Level 4.7, Chloride Level 115H, Carbon Dioxide Level 26, Anion Gap 1L, Blood Urea Nitrogen 7, Creatinine 0.4L, Estimat Glomerular Filtration Rate > 60, Glucose Level 147H, Uric Acid 3.4, Calcium Level 7.6L, Phosphorus Level 1.3L, Magnesium Level 1.7L, Total Bilirubin 0.2, Aspartate Amino Transf (AST/SGOT) 16, Alanine Aminotransferase (ALT/SGPT) 11L, Alkaline Phosphatase 124H, C-Reactive Protein, Quantitative [Pending], Pro-B-Type Natriuretic Peptide 4105H, Total Protein 4.9L, Albumin 1.1L, Globulin 3.8, Albumin/Globulin Ratio 0.3L, Digoxin Level 0.6 Current Medications Medications (Trade) Dose Ordered Sig/Erlin Route PRN Reason Start Time Stop Time Status Last Admin Dose Admin Acetaminophen (Tylenol) 650 mg Q4H PRN PEG Mild Pain (Pain Scale 1-3) 08/31/18 02:02 09/13/18 02:01 Acetaminophen (Tylenol) 650 mg Q6H PRN PEG Temp > 100.5 08/31/18 02:02 09/13/18 02:01 Amiodarone HCl (Cordarone) 200 mg DAILY PEG 08/31/18 09:00 09/19/18 08:59 09/02/18 10:46 Apixaban (Eliquis) 2.5 mg Q12HR NG 08/31/18 09:00 09/29/18 20:59 09/02/18 10:45 Chlorhexidine Gluconate (Yari-Hex 2%) 1 applic DAILY@1999 TOPIC 08/31/18 20:00 09/21/18 19:59 09/01/18 20:45 Clonidine HCl (Catapres Tab) 0.1 mg Q4H PRN GT For High Blood Pressure 08/31/18 15:44 09/21/18 15:43 Digoxin (Lanoxin) 0.125 mg DAILY PEG 08/31/18 09:00 09/19/18 08:59 09/02/18 10:46 Famotidine (Pepcid) 20 mg BID ORAL 09/02/18 18:00 10/02/18 17:59 09/02/18 17:21 Fidaxomicin (Dificid) 200 mg EVERY 12 HOURS ORAL 08/31/18 21:00 09/07/18 20:59 09/02/18 14:13 Isoniazid (Inh) 300 mg DAILY GT 08/31/18 09:00 09/13/18 08:59 09/02/18 10:46 Lactobacillus Acidophilus (Culturelle) 1 tab THREE TIMES A DAY GT 08/31/18 09:00 09/18/18 08:59 09/02/18 17:20 Loperamide HCl (Imodium) 2 mg EVERY 8 HOURS NG 08/31/18 06:00 09/29/18 13:59 09/02/18 14:08 Metoprolol Tartrate (Lopressor) 25 mg Q12HR PEG 08/31/18 09:00 09/22/18 20:59 09/02/18 10:45 Sodium Hypochlorite (Dakin's Quarter Strength) 1 applic DAILY TOPIC 08/31/18 09:00 09/13/18 15:59 09/01/18 10:42 Sodium Phosphate 30 mm/Sodium Chloride 285 ml @ 47.5 mls/hr ONCE IVPB 09/02/18 15:00 09/02/18 21:00 09/02/18 15:17 Spironolactone (Aldactone) 25 mg EVERY 12 HOURS GT 08/31/18 21:00 09/30/18 20:59 09/02/18 10:46 Minerva Montesinos MD Sep 02, 2018 17:25
[2018-09-02 20:00] VITALS: BP 132/66
[2018-09-02] MEDS: Dyna-Hex 2% Top Sol 2oz TOPIC SCH (21:12)
[2018-09-03] VITALS: BP 104/52
[2018-09-03 04:00] VITALS: BP 124/63
[2018-09-03 06:19] LABS: HEMATOCRIT 23.7 % (42.0-52.0); HEMOGLOBIN 7.4 G/DL (14.2-18.0); MEAN CORPUSCULAR VOLUME 98 FL (80-99); PLATELET COUNT 165 K/UL (150-450); RED BLOOD COUNT 2.43 M/UL (4.70-6.10); RED CELL DISTRIBUTION WIDTH 16.5 % (11.6-14.8); WHITE BLOOD COUNT 14.9 K/UL (4.8-10.8)
[2018-09-03 06:38] LABS: ALANINE AMINOTRANSFERASE 11 U/L (12-78); ALBUMIN/GLOBULIN RATIO 0.3 (1.0-2.7); ALKALINE PHOSPHATASE 102 U/L (46-116); ANION GAP 0 mmol/L (5-15); ASPARTATE AMINO TRANSFERASE 16 U/L (15-37); BILIRUBIN,TOTAL 0.3 MG/DL (0.2-1.0); BLOOD UREA NITROGEN 6 mg/dL (7-18); CALCIUM 7.4 MG/DL (8.5-10.1); CARBON DIOXIDE 28 MMOL/L (21-32); CHLORIDE 112 MMOL/L (98-107); CREATININE 0.4 MG/DL (0.55-1.30); PHOSPHORUS 2.6 MG/DL (2.5-4.9); POTASSIUM 4.7 MMOL/L (3.5-5.1); SODIUM 140 MMOL/L (136-145)
[2018-09-03 07:58] VITALS: BP 125/65
[2018-09-03] MEDS: Dakin's 0.125% Soln (Quarter Strength) 16oz TOPIC SCH (08:27)
[2018-09-03] MEDS: Amiodarone 200mg tab PEG SCH (08:27)
[2018-09-03] MEDS: Lactobacillus-GG tablet GT SCH ×3 (08:27→17:09)
[2018-09-03] MEDS: Eliquis 2.5mg tablet NG SCH ×2 (08:28→20:37)
[2018-09-03] MEDS: Digoxin 0.125mg tab PEG SCH (08:28)
[2018-09-03] MEDS: Metoprolol 25mg tab PEG SCH ×2 (08:28→20:37)
[2018-09-03] MEDS: Spironolactone 25mg tab GT SCH (08:28)
[2018-09-03] MEDS: Isoniazid 300mg tab GT SCH (08:28)
--- NOTE | 2018-09-03 12:01 | General Progress Note ---
Assessment/Plan Assessment/Plan Assessment - C Difficile colitis - abnormal lytes - failed swallow eval - s/p PEG - s/p b/l AKA - anemia - duodenal ulcers - bacteremia, leukocytosis - improving Recommendations - abx per ID - probiotics - elevate HOB - replace electrolytes - IVF - transfuse PRN - PPI>>> will dc -pepcid BID -stool ob - TF - anticoagulation - Poor Px Subjective ROS Limited/Unobtainable: No Allergies: Coded Allergies: MILK (Verified Allergy, Unknown, 02/02/18) Objective Last 24 Hour Vital Signs Date Time Temp Pulse Resp B/P (MAP) Pulse Ox O2 Delivery O2 Flow Rate FiO2 09/03/18 08:28 60 125/65 09/03/18 08:28 60 09/03/18 08:00 Nasal Cannula 2.0 09/03/18 07:58 98.4 60 17 125/65 (85) 94 09/03/18 04:00 98.4 69 17 124/63 (83) 94 09/03/18 00:00 98.9 54 18 104/52 (69) 94 09/02/18 21:12 70 132/66 09/02/18 20:40 98 Nasal Cannula 2.0 28 09/02/18 20:40 Nasal Cannula 2.0 28 09/02/18 20:00 99.3 70 18 132/66 (88) 99 09/02/18 16:00 98.0 75 18 138/55 (82) Intake and Output 09/02/18 09/03/18 19:00 07:00 Intake Total 720 ml 840 ml Output Total 1300 ml Balance 720 ml -460 ml Free Water 120 ml Tube Feeding 720 ml 720 ml Output Urine Total 1300 ml Laboratory Tests 09/02/18 21:30: C-Reactive Protein, Quantitative 4.4H 09/03/18 05:00: White Blood Count 14.9H, Red Blood Count 2.43L, Hemoglobin 7.4L, Hematocrit 23.7L, Mean Corpuscular Volume 98, Mean Corpuscular Hemoglobin 30.6, Mean Corpuscular Hemoglobin Concent 31.3L, Red Cell Distribution Width 16.5H, Platelet Count 165, Mean Platelet Volume 6.1L, Neutrophils (%) (Auto) , Lymphocytes (%) (Auto) , Monocytes (%) (Auto) , Eosinophils (%) (Auto) , Basophils (%) (Auto) , Differential Total Cells Counted 100, Neutrophils % ( Manual) 76H, Lymphocytes % (Manual) 19L, Monocytes % (Manual) 4, Eosinophils % ( Manual) 1, Basophils % (Manual) 0, Band Neutrophils 0, Platelet Estimate Adequate, Platelet Morphology Normal, Hypochromasia 1+, Anisocytosis 1+, Stool Occult Blood [Pending], Sodium Level 140, Potassium Level 4.7, Chloride Level 112H, Carbon Dioxide Level 28, Anion Gap 0L, Blood Urea Nitrogen 6L, Creatinine 0.4L, Estimat Glomerular Filtration Rate > 60, Glucose Level 81, Uric Acid 3.5, Calcium Level 7.4L, Phosphorus Level 2.6, Magnesium Level 2.0, Total Bilirubin 0.3, Aspartate Amino Transf (AST/SGOT) 16, Alanine Aminotransferase (ALT/SGPT) 11L, Alkaline Phosphatase 102, Pro-B-Type Natriuretic Peptide 4584H, Total Protein 4.9L, Albumin 1.0L, Globulin 3.9, Albumin/Globulin Ratio 0.3L Height (Feet): 6 Height (Inches): 0.40 Weight (Pounds): 164 General Appearance: no apparent distress EENT: normal ENT inspection Neck: supple Cardiovascular: normal rate Respiratory/Chest: decreased breath sounds Abdomen: normal bowel sounds, non tender, soft Extremities: non-tender Nhan Aguirre MD Sep 03, 2018 12:01
[2018-09-03] MEDS ORDERED: Sodium Phosphate 15 MM in NS 275 ML IVPB ONE (12:30)
[2018-09-03 12:40] VITALS: BP 110/65
--- NOTE | 2018-09-03 15:24 | Internal Med Progress Note ---
Subjective Physician Name Pedro Caban Attending Physician Pedro Caban MD Current Medications Medications (Trade) Dose Ordered Sig/Erlin Route PRN Reason Start Time Stop Time Status Last Admin Dose Admin Acetaminophen (Tylenol) 650 mg Q4H PRN PEG Mild Pain (Pain Scale 1-3) 08/31/18 02:02 09/13/18 02:01 Acetaminophen (Tylenol) 650 mg Q6H PRN PEG Temp > 100.5 08/31/18 02:02 09/13/18 02:01 Amiodarone HCl (Cordarone) 200 mg DAILY PEG 08/31/18 09:00 09/19/18 08:59 09/03/18 08:27 Apixaban (Eliquis) 2.5 mg Q12HR NG 08/31/18 09:00 09/29/18 20:59 09/03/18 08:28 Chlorhexidine Gluconate (Yari-Hex 2%) 1 applic DAILY@1999 TOPIC 08/31/18 20:00 09/21/18 19:59 09/02/18 21:12 Clonidine HCl (Catapres Tab) 0.1 mg Q4H PRN GT For High Blood Pressure 08/31/18 15:44 09/21/18 15:43 Digoxin (Lanoxin) 0.125 mg DAILY PEG 08/31/18 09:00 09/19/18 08:59 09/03/18 08:28 Famotidine (Pepcid) 20 mg BID ORAL 09/02/18 18:00 10/02/18 17:59 09/03/18 08:27 Fidaxomicin (Dificid) 200 mg EVERY 12 HOURS ORAL 08/31/18 21:00 09/07/18 20:59 09/03/18 09:09 Isoniazid (Inh) 300 mg DAILY GT 08/31/18 09:00 09/13/18 08:59 09/03/18 08:28 Lactobacillus Acidophilus (Culturelle) 1 tab THREE TIMES A DAY GT 08/31/18 09:00 09/18/18 08:59 09/03/18 13:05 Loperamide HCl (Imodium) 2 mg EVERY 8 HOURS NG 08/31/18 06:00 09/29/18 13:59 09/03/18 13:05 Metoprolol Tartrate (Lopressor) 25 mg Q12HR PEG 08/31/18 09:00 09/22/18 20:59 09/03/18 08:28 Sodium Hypochlorite (Dakin's Quarter Strength) 1 applic DAILY TOPIC 08/31/18 09:00 09/13/18 15:59 09/03/18 08:27 Sodium Phosphate 15 mm/Sodium Chloride 280 ml @ 70.273 mls/ hr ONCE ONCE IVPB 09/03/18 12:30 09/03/18 16:29 09/03/18 12:40 Spironolactone (Aldactone) 25 mg EVERY 12 HOURS GT 08/31/18 21:00 09/30/18 20:59 09/03/18 08:28 Allergies: Coded Allergies: MILK (Verified Allergy, Unknown, 02/02/18) Subjective more responsive, open eyes, not verbal, rectal tube, WBC: 14.9. Objective Last Vital Signs Date Time Temp Pulse Resp B/P (MAP) Pulse Ox O2 Delivery O2 Flow Rate FiO2 09/03/18 12:40 98.4 60 17 110/65 (80) 94 09/03/18 08:00 Nasal Cannula 2.0 09/02/18 20:40 28 Laboratory Tests Test 09/02/18 21:30 09/03/18 05:00 C-Reactive Protein, Quantitative 4.4 mg/dL (0.00-0.90) H White Blood Count 14.9 K/UL (4.8-10.8) H Red Blood Count 2.43 M/UL (4.70-6.10) L Hemoglobin 7.4 G/DL (14.2-18.0) L Hematocrit 23.7 % (42.0-52.0) L Mean Corpuscular Volume 98 FL (80-99) Mean Corpuscular Hemoglobin 30.6 PG (27.0-31.0) Mean Corpuscular Hemoglobin Concent 31.3 G/DL (32.0-36.0) L Red Cell Distribution Width 16.5 % (11.6-14.8) H Platelet Count 165 K/UL (150-450) Mean Platelet Volume 6.1 FL (6.5-10.1) L Neutrophils (%) (Auto) % (45.0-75.0) Lymphocytes (%) (Auto) % (20.0-45.0) Monocytes (%) (Auto) % (1.0-10.0) Eosinophils (%) (Auto) % (0.0-3.0) Basophils (%) (Auto) % (0.0-2.0) Differential Total Cells Counted 100 Neutrophils % (Manual) 76 % (45-75) H Lymphocytes % (Manual) 19 % (20-45) L Monocytes % (Manual) 4 % (1-10) Eosinophils % (Manual) 1 % (0-3) Basophils % (Manual) 0 % (0-2) Band Neutrophils 0 % (0-8) Platelet Estimate Adequate Platelet Morphology Normal Hypochromasia 1+ Anisocytosis 1+ Stool Occult Blood Pending Sodium Level 140 MMOL/L (136-145) Potassium Level 4.7 MMOL/L (3.5-5.1) Chloride Level 112 MMOL/L (98-107) H Carbon Dioxide Level 28 MMOL/L (21-32) Anion Gap 0 mmol/L (5-15) L Blood Urea Nitrogen 6 mg/dL (7-18) L Creatinine 0.4 MG/DL (0.55-1.30) L Estimat Glomerular Filtration Rate > 60 mL/min (>60) Glucose Level 81 MG/DL (74-106) Uric Acid 3.5 MG/DL (2.6-7.2) Calcium Level 7.4 MG/DL (8.5-10.1) L Phosphorus Level 2.6 MG/DL (2.5-4.9) Magnesium Level 2.0 MG/DL (1.8-2.4) Total Bilirubin 0.3 MG/DL (0.2-1.0) Aspartate Amino Transf (AST/SGOT) 16 U/L (15-37) Alanine Aminotransferase (ALT/SGPT) 11 U/L (12-78) L Alkaline Phosphatase 102 U/L (46-116) Pro-B-Type Natriuretic Peptide 4584 pg/mL (0-125) H Total Protein 4.9 G/DL (6.4-8.2) L Albumin 1.0 G/DL (3.4-5.0) L Globulin 3.9 g/dL Albumin/Globulin Ratio 0.3 (1.0-2.7) L Intake and Output 09/02/18 09/03/18 19:00 07:00 Intake Total 720 ml 840 ml Output Total 1300 ml Balance 720 ml -460 ml Free Water 120 ml Tube Feeding 720 ml 720 ml Output Urine Total 1300 ml Objective General: No acute distress, less responsive, open eyes only, not verbal HEENT: NCAT, sclera anicteric, PERRL, EOMI Neck: Supple, no significant jugular venous distention, Lungs: Fair inspiratory effort,decrease bilateral air entry at bases.l no Wheeze or Rales. Heart: Regular rate and rhythm, normal S1/S2, no murmur Abdomen: soft, generalized tenderness, less distended. Normoactive bowel sounds , Rectal Tube, PEG site intact. Extremities: No Cyanosis , clubbing or edema. bilateral AKA, stump edema, RUE Piccline. Neuro: A&O x 1, Able to move upper extremities. SKIN: Multiple Decubi ulceration Assessment/Plan Assessment/Plan (1) Sepsis / bacteremia. 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 F/U with ID recommendations Pedro Caban MD Sep 03, 2018 15:24
[2018-09-03 16:00] VITALS: BP 120/60
--- NOTE | 2018-09-03 16:57 | Nephrology Progress Note ---
Assessment/Plan Problem List: (1) Hypokalemia Assessment: also Low Phos and Low Mag (2) HTN (hypertension) (3) Atrial fibrillation (4) Clostridium difficile colitis (5) Decubitus ulcer (6) Anemia Assessment Low Phos Low K Low Mag C deficil colitis Sepsis Decubiti Anemia CVA At fib Plan K , Mag , Phos supplement IV as needed until diarrhea subcides per orders add B6 Down on Dig dose Aldactone Monitor labs per consultants discussed with Dr Montesinos Subjective ROS Limited/Unobtainable: No Constitutional: Reports: malaise Objective Objective Last 24 Hour Vital Signs Date Time Temp Pulse Resp B/P (MAP) Pulse Ox O2 Delivery O2 Flow Rate FiO2 09/03/18 12:40 98.4 60 17 110/65 (80) 94 09/03/18 08:28 60 125/65 09/03/18 08:28 60 09/03/18 08:00 Nasal Cannula 2.0 09/03/18 07:58 98.4 60 17 125/65 (85) 94 09/03/18 04:00 98.4 69 17 124/63 (83) 94 09/03/18 00:00 98.9 54 18 104/52 (69) 94 09/02/18 21:12 70 132/66 09/02/18 20:40 98 Nasal Cannula 2.0 28 09/02/18 20:40 Nasal Cannula 2.0 28 09/02/18 20:00 99.3 70 18 132/66 (88) 99 Intake and Output 09/02/18 09/03/18 18:59 06:59 Intake Total 720 ml 840 ml Output Total 1300 ml Balance 720 ml -460 ml Free Water 120 ml Tube Feeding 720 ml 720 ml Output Urine Total 1300 ml Laboratory Tests 09/02/18 21:30: C-Reactive Protein, Quantitative 4.4H 09/03/18 05:00: White Blood Count 14.9H, Red Blood Count 2.43L, Hemoglobin 7.4L, Hematocrit 23.7L, Mean Corpuscular Volume 98, Mean Corpuscular Hemoglobin 30.6, Mean Corpuscular Hemoglobin Concent 31.3L, Red Cell Distribution Width 16.5H, Platelet Count 165, Mean Platelet Volume 6.1L, Neutrophils (%) (Auto) , Lymphocytes (%) (Auto) , Monocytes (%) (Auto) , Eosinophils (%) (Auto) , Basophils (%) (Auto) , Differential Total Cells Counted 100, Neutrophils % ( Manual) 76H, Lymphocytes % (Manual) 19L, Monocytes % (Manual) 4, Eosinophils % ( Manual) 1, Basophils % (Manual) 0, Band Neutrophils 0, Platelet Estimate Adequate, Platelet Morphology Normal, Hypochromasia 1+, Anisocytosis 1+, Stool Occult Blood [Pending], Sodium Level 140, Potassium Level 4.7, Chloride Level 112H, Carbon Dioxide Level 28, Anion Gap 0L, Blood Urea Nitrogen 6L, Creatinine 0.4L, Estimat Glomerular Filtration Rate > 60, Glucose Level 81, Uric Acid 3.5, Calcium Level 7.4L, Phosphorus Level 2.6, Magnesium Level 2.0, Total Bilirubin 0.3, Aspartate Amino Transf (AST/SGOT) 16, Alanine Aminotransferase (ALT/SGPT) 11L, Alkaline Phosphatase 102, Pro-B-Type Natriuretic Peptide 4584H, Total Protein 4.9L, Albumin 1.0L, Globulin 3.9, Albumin/Globulin Ratio 0.3L Height (Feet): 6 Height (Inches): 0.40 Weight (Pounds): 164 General Appearance: no apparent distress Cardiovascular: bradycardia Respiratory/Chest: decreased breath sounds Abdomen: distended Ruy Colvin MD Sep 03, 2018 16:57
--- NOTE | 2018-09-03 17:06 | Pulmonology Progress Note ---
Assessment/Plan Problems: (1) Clostridium difficile colitis (2) Acute metabolic encephalopathy (3) Sepsis (4) Decubitus skin ulcer (5) UTI (urinary tract infection) (6) Anemia (7) CVA (cerebral vascular accident) Assessment/Plan unchanged mental status afebrile telemetry records reviewed, still tachy with PAC's and PVC's junctional rhythm on vancomycin PO check electrolytes continue current meds. dvt prophylaxis. got his PEG K, phos, mg supplement med/surg dc planning Subjective ROS Limited/Unobtainable: No Constitutional: Reports: no symptoms HEENT: Repors: no symptoms Allergies: Coded Allergies: MILK (Verified Allergy, Unknown, 02/02/18) Objective Last 24 Hour Vital Signs Date Time Temp Pulse Resp B/P (MAP) Pulse Ox O2 Delivery O2 Flow Rate FiO2 09/03/18 12:40 98.4 60 17 110/65 (80) 94 09/03/18 08:28 60 125/65 09/03/18 08:28 60 09/03/18 08:00 Nasal Cannula 2.0 09/03/18 07:58 98.4 60 17 125/65 (85) 94 09/03/18 04:00 98.4 69 17 124/63 (83) 94 09/03/18 00:00 98.9 54 18 104/52 (69) 94 09/02/18 21:12 70 132/66 09/02/18 20:40 98 Nasal Cannula 2.0 28 09/02/18 20:40 Nasal Cannula 2.0 28 09/02/18 20:00 99.3 70 18 132/66 (88) 99 Intake and Output 09/02/18 09/03/18 19:00 07:00 Intake Total 720 ml 840 ml Output Total 1300 ml Balance 720 ml -460 ml Free Water 120 ml Tube Feeding 720 ml 720 ml Output Urine Total 1300 ml Objective General Appearance: WD/WN HEENT: normocephalic, atraumatic Respiratory/Chest: chest wall non-tender, lungs clear Cardiovascular: normal peripheral pulses, normal rate Abdomen: normal bowel sounds, soft, non tender Extremities: no cyanosis Skin: extensive decubiti Laboratory Tests 09/02/18 21:30: C-Reactive Protein, Quantitative 4.4H 09/03/18 05:00: White Blood Count 14.9H, Red Blood Count 2.43L, Hemoglobin 7.4L, Hematocrit 23.7L, Mean Corpuscular Volume 98, Mean Corpuscular Hemoglobin 30.6, Mean Corpuscular Hemoglobin Concent 31.3L, Red Cell Distribution Width 16.5H, Platelet Count 165, Mean Platelet Volume 6.1L, Neutrophils (%) (Auto) , Lymphocytes (%) (Auto) , Monocytes (%) (Auto) , Eosinophils (%) (Auto) , Basophils (%) (Auto) , Differential Total Cells Counted 100, Neutrophils % ( Manual) 76H, Lymphocytes % (Manual) 19L, Monocytes % (Manual) 4, Eosinophils % ( Manual) 1, Basophils % (Manual) 0, Band Neutrophils 0, Platelet Estimate Adequate, Platelet Morphology Normal, Hypochromasia 1+, Anisocytosis 1+, Stool Occult Blood [Pending], Sodium Level 140, Potassium Level 4.7, Chloride Level 112H, Carbon Dioxide Level 28, Anion Gap 0L, Blood Urea Nitrogen 6L, Creatinine 0.4L, Estimat Glomerular Filtration Rate > 60, Glucose Level 81, Uric Acid 3.5, Calcium Level 7.4L, Phosphorus Level 2.6, Magnesium Level 2.0, Total Bilirubin 0.3, Aspartate Amino Transf (AST/SGOT) 16, Alanine Aminotransferase (ALT/SGPT) 11L, Alkaline Phosphatase 102, Pro-B-Type Natriuretic Peptide 4584H, Total Protein 4.9L, Albumin 1.0L, Globulin 3.9, Albumin/Globulin Ratio 0.3L Current Medications Medications (Trade) Dose Ordered Sig/Erlin Route PRN Reason Start Time Stop Time Status Last Admin Dose Admin Acetaminophen (Tylenol) 650 mg Q4H PRN PEG Mild Pain (Pain Scale 1-3) 08/31/18 02:02 09/13/18 02:01 Acetaminophen (Tylenol) 650 mg Q6H PRN PEG Temp > 100.5 08/31/18 02:02 09/13/18 02:01 Amiodarone HCl (Cordarone) 200 mg DAILY PEG 08/31/18 09:00 09/19/18 08:59 09/03/18 08:27 Apixaban (Eliquis) 2.5 mg Q12HR NG 08/31/18 09:00 09/29/18 20:59 09/03/18 08:28 Chlorhexidine Gluconate (Yari-Hex 2%) 1 applic DAILY@2000 TOPIC 08/31/18 20:00 09/21/18 19:59 09/02/18 21:12 Clonidine HCl (Catapres Tab) 0.1 mg Q4H PRN GT For High Blood Pressure 08/31/18 15:44 09/21/18 15:43 Digoxin (Lanoxin) 0.125 mg QOD PEG 09/05/18 09:00 09/19/18 08:59 Famotidine (Pepcid) 20 mg BID ORAL 09/02/18 18:00 10/02/18 17:59 09/03/18 08:27 Fidaxomicin (Dificid) 200 mg EVERY 12 HOURS ORAL 08/31/18 21:00 09/07/18 20:59 09/03/18 09:09 Isoniazid (Inh) 300 mg DAILY GT 08/31/18 09:00 09/13/18 08:59 09/03/18 08:28 Lactobacillus Acidophilus (Culturelle) 1 tab THREE TIMES A DAY GT 08/31/18 09:00 09/18/18 08:59 09/03/18 13:05 Loperamide HCl (Imodium) 2 mg EVERY 8 HOURS NG 08/31/18 06:00 09/29/18 13:59 09/03/18 13:05 Metoprolol Tartrate (Lopressor) 25 mg Q12HR PEG 08/31/18 09:00 09/22/18 20:59 09/03/18 08:28 Pyridoxine HCl (Vitamin B6) 50 mg DAILY GT 09/03/18 17:00 10/03/18 16:59 Sodium Hypochlorite (Dakin's Quarter Strength) 1 applic DAILY TOPIC 08/31/18 09:00 09/13/18 15:59 09/03/18 08:27 Spironolactone (Aldactone) 25 mg DAILY GT 09/04/18 09:00 09/30/18 20:59 Minerva Montesinos MD Sep 03, 2018 17:06
[2018-09-03] MEDS: Pyridoxine 50mg tab GT SCH (17:12)
[2018-09-03 20:00] VITALS: BP 99/59
[2018-09-03] MEDS: Dyna-Hex 2% Top Sol 2oz TOPIC SCH (20:36)
[2018-09-04 00:20] VITALS: BP 123/63
[2018-09-04 04:00] VITALS: BP 101/61
[2018-09-04 06:45] LABS: ALANINE AMINOTRANSFERASE 9 U/L (12-78); ALBUMIN/GLOBULIN RATIO 0.2 (1.0-2.7); ALKALINE PHOSPHATASE 98 U/L (46-116); ANION GAP 4 mmol/L (5-15); ASPARTATE AMINO TRANSFERASE 18 U/L (15-37); BILIRUBIN,TOTAL 0.4 MG/DL (0.2-1.0); BLOOD UREA NITROGEN 8 mg/dL (7-18); CALCIUM 7.6 MG/DL (8.5-10.1); CARBON DIOXIDE 29 MMOL/L (21-32); CHLORIDE 109 MMOL/L (98-107); CREATININE 0.4 MG/DL (0.55-1.30); PHOSPHORUS 2.6 MG/DL (2.5-4.9); POTASSIUM 4.8 MMOL/L (3.5-5.1); SODIUM 142 MMOL/L (136-145)
[2018-09-04] MEDS: Isoniazid 300mg tab GT SCH (08:13)
[2018-09-04] MEDS: Lactobacillus-GG tablet GT SCH ×3 (08:13→16:49)
[2018-09-04] MEDS: Metoprolol 25mg tab PEG SCH ×2 (08:14→21:00)
[2018-09-04] MEDS: Amiodarone 200mg tab PEG SCH (08:14)
[2018-09-04] MEDS: Eliquis 2.5mg tablet NG SCH ×2 (08:14→21:17)
[2018-09-04] MEDS: Pyridoxine 50mg tab GT SCH (08:14)
[2018-09-04] MEDS: Dakin's 0.125% Soln (Quarter Strength) 16oz TOPIC SCH (08:28)
[2018-09-04 08:34] VITALS: BP 115/56
[2018-09-04] MEDS ORDERED: Spironolactone 25mg tab GT SCH (09:00)
[2018-09-04 12:00] VITALS: BP 90/56
--- NOTE | 2018-09-04 13:01 | Infectious Diseases Prog Note ---
Assessment/Plan Assessment/Plan Sepsis-2ry to bacteremia (likley from GI translocation ) -CT abd/p" Colonic mural thickening consistent with some form of colitis. No pneumatosis or extraluminal air. C Diff , ongoing diarrhea -Cdif toxin a/b + -Bcx 08/21 GNR, 08/21 ESBL Proteus mirabilis (S Ertapenem, Zosyn), 08/21 Group C strep ; 08/15 Bcx 07/24 Prevotella L . (R Clinda, Unasyn; S flagyl) ;08/17 Bcx 07/24 EUBACTERIUM LENTUM 08/21 Bcx Neg -u/a no pyuria -CXR: Suspect a small left pleural effusion. Mild basal atelectasis -influenza sc neg Fever, SP Leukocytosis , mild recurrent -08/28 CXR: There is decreased consolidation at the right lung base. There is some residual perihilar atelectasis. Hx of lung cavitary lesion/ PNA- suspect likely to aspiration; lower suspicion for TB and/or fungal etiologies -06/08 CT chest: * Interval resolution of the cavitary component associated with the previously described anterior right upper lobe opacity. It is slightly decreased in size and more nodular in appearance on today's exam. Additional patchy opacities in the posterior right upper lobe are also slightly decreased in size and appear more nodular (previously were groundglass). Findings likely related to evolving infectious or inflammatory lesions however continued follow-up is recommended to assure resolution/exclude the possibility of neoplastic etiologies. -CT c/a/p: 10 mm opacity in the peripheral anterolateral right upper lobe with small central cavitation. Patchy groundglass opacity in the posterior right upper lobe. Suspect that these represent inflammatory/infectious lesions, but neoplastic etiology of either is certainly possible. Large left and moderate right pleural effusions. Resultant compressive atelectasis of portions of the lower lobes. 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 Hypertension. Multiple decubiti ulcers (elbow, sacral) -not infected Bipolar disorder. Coronary artery disease. VRE and MRSA colonized Plan: -Continue PO Fidaxomicin #/ given ongoing diarrhea despite oral vancomycin -Cont INH for latent TB -08/31 SP PO Vancomycin #17 -08/29 SP Meropenem #13 -08/26 SP Flagyl #5 -08/17 SP Zosyn #3, Daptomycin # -08/15 SP Tamiflu #2, Ceftriaxone # -08/14 SP Cefepime and LEvaquin x1 -Monitor CBC/CMP, temperatures -wound care -aspiration precautions -Sx f/u -u/a w/, CXR -CBC, CMP am Subjective Allergies: Coded Allergies: MILK (Verified Allergy, Unknown, 02/02/18) Subjective afebrile leukocytosis, increased still having loose stools Objective Vital Signs Last 24 Hour Vital Signs Date Time Temp Pulse Resp B/P (MAP) Pulse Ox O2 Delivery O2 Flow Rate FiO2 09/04/18 09:00 Nasal Cannula 2.0 09/04/18 08:34 98.6 58 17 115/56 (75) 100 09/04/18 08:14 63 101/61 09/04/18 04:00 99.4 63 18 101/61 (74) 100 09/04/18 00:24 98 Nasal Cannula 2.0 28 09/04/18 00:24 67 20 Nasal Cannula 2.0 28 09/04/18 00:24 Nasal Cannula 2.0 28 09/04/18 00:20 99.2 65 18 123/63 (83) 97 09/03/18 21:00 Nasal Cannula 2.0 09/03/18 20:37 63 99/59 09/03/18 20:00 96.9 63 18 99/59 (72) 94 09/03/18 16:00 98.4 65 17 120/60 (80) 94 Height (Feet): 6 Height (Inches): 0.40 Weight (Pounds): 164 Objective General appearance: alert, cooperative, no distress, appears stated age Head: Normocephalic, without obvious abnormality, atraumatic Eyes: conjunctivae/corneas clear. PERRL, EOM's intact. Fundi benign Throat: Lips, mucosa, and tongue normal. Teeth and gums normal Neck: supple, symmetrical, trachea midline, no adenopathy, thyroid: not enlarged, symmetric, no tenderness/mass/nodules, no carotid bruit and no JVD Lungs: clear to auscultation bilaterally Heart: regular rate and rhythm, S1, S2 normal, no murmur, click, rub or gallop Abdomen: soft, non-tender. Bowel sounds normal. No masses, no organomegaly Extremities: extremities normal, atraumatic, no cyanosis or edema/ s/p bilateral aka Pulses: 2+ and symmetric Skin: Skin color, texture, turgor normal. No rashes or lesions. multiple large decubitus ulcers. Neurologic: Grossly normal Laboratory Tests Test 09/04/18 05:34 Sodium Level 142 MMOL/L (136-145) Potassium Level 4.8 MMOL/L (3.5-5.1) Chloride Level 109 MMOL/L (98-107) H Carbon Dioxide Level 29 MMOL/L (21-32) Anion Gap 4 mmol/L (5-15) L Blood Urea Nitrogen 8 mg/dL (7-18) Creatinine 0.4 MG/DL (0.55-1.30) L Estimat Glomerular Filtration Rate > 60 mL/min (>60) Glucose Level 77 MG/DL (74-106) Calcium Level 7.6 MG/DL (8.5-10.1) L Phosphorus Level 2.6 MG/DL (2.5-4.9) Magnesium Level 1.6 MG/DL (1.8-2.4) L Total Bilirubin 0.4 MG/DL (0.2-1.0) Aspartate Amino Transf (AST/SGOT) 18 U/L (15-37) Alanine Aminotransferase (ALT/SGPT) 9 U/L (12-78) L Alkaline Phosphatase 98 U/L (46-116) Total Protein 5.1 G/DL (6.4-8.2) L Albumin 1.0 G/DL (3.4-5.0) L Globulin 4.1 g/dL Albumin/Globulin Ratio 0.2 (1.0-2.7) L Digoxin Level 0.8 NG/ML (0.5-2.0) Current Medications Medications (Trade) Dose Ordered Sig/Erlin Route PRN Reason Start Time Stop Time Status Last Admin Dose Admin Acetaminophen (Tylenol) 650 mg Q4H PRN PEG Mild Pain (Pain Scale 1-3) 08/31/18 02:02 09/13/18 02:01 Acetaminophen (Tylenol) 650 mg Q6H PRN PEG Temp > 100.5 08/31/18 02:02 09/13/18 02:01 Amiodarone HCl (Cordarone) 200 mg DAILY PEG 08/31/18 09:00 09/19/18 08:59 09/04/18 08:14 Apixaban (Eliquis) 2.5 mg Q12HR NG 08/31/18 09:00 09/29/18 20:59 09/04/18 08:14 Chlorhexidine Gluconate (Yari-Hex 2%) 1 applic DAILY@2000 TOPIC 08/31/18 20:00 09/21/18 19:59 09/03/18 20:36 Clonidine HCl (Catapres Tab) 0.1 mg Q4H PRN GT For High Blood Pressure 08/31/18 15:44 09/21/18 15:43 Digoxin (Lanoxin) 0.125 mg QOD PEG 09/05/18 09:00 09/19/18 08:59 Famotidine (Pepcid) 20 mg BID ORAL 09/02/18 18:00 10/02/18 17:59 09/04/18 08:14 Fidaxomicin (Dificid) 200 mg EVERY 12 HOURS ORAL 08/31/18 21:00 09/07/18 20:59 09/04/18 11:24 Isoniazid (Inh) 300 mg DAILY GT 08/31/18 09:00 09/13/18 08:59 09/04/18 08:13 Lactobacillus Acidophilus (Culturelle) 1 tab THREE TIMES A DAY GT 08/31/18 09:00 09/18/18 08:59 09/04/18 08:13 Loperamide HCl (Imodium) 2 mg EVERY 8 HOURS NG 08/31/18 06:00 09/29/18 13:59 09/04/18 05:26 Magnesium Sulfate 100 ml @ 100 mls/hr Q1H IVPB 09/04/18 11:00 09/04/18 14:59 09/04/18 11:24 Metoprolol Tartrate (Lopressor) 25 mg Q12HR PEG 08/31/18 09:00 09/22/18 20:59 09/04/18 08:14 Potassium Phosphate 30 mm/ Sodium Chloride 285 ml @ 47.5 mls/hr ONCE ONCE IV 09/04/18 15:00 09/04/18 20:59 Pyridoxine HCl (Vitamin B6) 50 mg DAILY GT 09/03/18 17:00 10/03/18 16:59 09/04/18 08:14 Sodium Hypochlorite (Dakin's Quarter Strength) 1 applic DAILY TOPIC 08/31/18 09:00 09/13/18 15:59 09/04/18 08:28 Alma Elkins M.D. Sep 04, 2018 13:01
--- NOTE | 2018-09-04 13:11 | Pulmonology Progress Note ---
Assessment/Plan Problems: (1) Clostridium difficile colitis (2) Acute metabolic encephalopathy (3) Sepsis (4) Decubitus skin ulcer (5) UTI (urinary tract infection) (6) Anemia (7) CVA (cerebral vascular accident) Assessment/Plan mental status better afebrile check electrolytes continue current meds. dvt prophylaxis. got his PEG K, phos, mg supplement med/surg dc planning Subjective ROS Limited/Unobtainable: No Constitutional: Reports: no symptoms Allergies: Coded Allergies: MILK (Verified Allergy, Unknown, 02/02/18) Objective Last 24 Hour Vital Signs Date Time Temp Pulse Resp B/P (MAP) Pulse Ox O2 Delivery O2 Flow Rate FiO2 09/04/18 09:00 Nasal Cannula 2.0 09/04/18 08:34 98.6 58 17 115/56 (75) 100 09/04/18 08:14 63 101/61 09/04/18 04:00 99.4 63 18 101/61 (74) 100 09/04/18 00:24 98 Nasal Cannula 2.0 28 09/04/18 00:24 67 20 Nasal Cannula 2.0 28 09/04/18 00:24 Nasal Cannula 2.0 28 09/04/18 00:20 99.2 65 18 123/63 (83) 97 09/03/18 21:00 Nasal Cannula 2.0 09/03/18 20:37 63 99/59 09/03/18 20:00 96.9 63 18 99/59 (72) 94 09/03/18 16:00 98.4 65 17 120/60 (80) 94 Intake and Output 09/03/18 09/04/18 19:00 07:00 Intake Total 820 ml 940 ml Output Total 200 ml Balance 620 ml 940 ml Free Water 100 ml 220 ml Tube Feeding 720 ml 720 ml Stool Total 200 ml Objective General Appearance: WD/WN HEENT: normocephalic, atraumatic Respiratory/Chest: chest wall non-tender, lungs clear Cardiovascular: normal peripheral pulses, normal rate Abdomen: normal bowel sounds, soft, non tender Extremities: no cyanosis Skin: extensive decubiti Laboratory Tests 09/04/18 05:34: Sodium Level 142, Potassium Level 4.8, Chloride Level 109H, Carbon Dioxide Level 29, Anion Gap 4L, Blood Urea Nitrogen 8, Creatinine 0.4L, Estimat Glomerular Filtration Rate > 60, Glucose Level 77, Calcium Level 7.6L, Phosphorus Level 2.6, Magnesium Level 1.6L, Total Bilirubin 0.4, Aspartate Amino Transf (AST/SGOT) 18, Alanine Aminotransferase (ALT/SGPT) 9L, Alkaline Phosphatase 98, Total Protein 5.1L, Albumin 1.0L, Globulin 4.1, Albumin/ Globulin Ratio 0.2L, Digoxin Level 0.8 Current Medications Medications (Trade) Dose Ordered Sig/Erlin Route PRN Reason Start Time Stop Time Status Last Admin Dose Admin Acetaminophen (Tylenol) 650 mg Q4H PRN PEG Mild Pain (Pain Scale 1-3) 08/31/18 02:02 09/13/18 02:01 Acetaminophen (Tylenol) 650 mg Q6H PRN PEG Temp > 100.5 08/31/18 02:02 09/13/18 02:01 Amiodarone HCl (Cordarone) 200 mg DAILY PEG 08/31/18 09:00 09/19/18 08:59 09/04/18 08:14 Apixaban (Eliquis) 2.5 mg Q12HR NG 08/31/18 09:00 09/29/18 20:59 09/04/18 08:14 Chlorhexidine Gluconate (Yari-Hex 2%) 1 applic DAILY@1999 TOPIC 08/31/18 20:00 09/21/18 19:59 09/03/18 20:36 Clonidine HCl (Catapres Tab) 0.1 mg Q4H PRN GT For High Blood Pressure 08/31/18 15:44 09/21/18 15:43 Digoxin (Lanoxin) 0.125 mg QOD PEG 09/05/18 09:00 09/19/18 08:59 Famotidine (Pepcid) 20 mg BID ORAL 09/02/18 18:00 10/02/18 17:59 09/04/18 08:14 Fidaxomicin (Dificid) 200 mg EVERY 12 HOURS ORAL 08/31/18 21:00 09/07/18 20:59 09/04/18 11:24 Isoniazid (Inh) 300 mg DAILY GT 08/31/18 09:00 09/13/18 08:59 09/04/18 08:13 Lactobacillus Acidophilus (Culturelle) 1 tab THREE TIMES A DAY GT 08/31/18 09:00 09/18/18 08:59 09/04/18 12:57 Loperamide HCl (Imodium) 2 mg EVERY 8 HOURS NG 08/31/18 06:00 09/29/18 13:59 09/04/18 12:57 Magnesium Sulfate 100 ml @ 100 mls/hr Q1H IVPB 09/04/18 11:00 09/04/18 14:59 09/04/18 12:57 Metoprolol Tartrate (Lopressor) 25 mg Q12HR PEG 08/31/18 09:00 09/22/18 20:59 09/04/18 08:14 Potassium Phosphate 30 mm/ Sodium Chloride 285 ml @ 47.5 mls/hr ONCE ONCE IV 09/04/18 15:00 09/04/18 20:59 Pyridoxine HCl (Vitamin B6) 50 mg DAILY GT 09/03/18 17:00 10/03/18 16:59 09/04/18 08:14 Sodium Hypochlorite (Dakin's Quarter Strength) 1 applic DAILY TOPIC 08/31/18 09:00 09/13/18 15:59 09/04/18 08:28 Minerva Montesinos MD Sep 04, 2018 13:11
[2018-09-04 13:19] LABS: BASOPHILS % (AUTO) 0.4 % (0.0-2.0); EOSINOPHILS % (AUTO) 0.5 % (0.0-3.0); HEMATOCRIT 27.5 % (42.0-52.0); HEMOGLOBIN 8.4 G/DL (14.2-18.0); LYMPHOCYTES % (AUTO) 22.4 % (20.0-45.0); MEAN CORPUSCULAR VOLUME 97 FL (80-99); MONOCYTES % (AUTO) 7.1 % (1.0-10.0); NEUTROPHILS % (AUTO) 69.7 % (45.0-75.0); PLATELET COUNT 161 K/UL (150-450); RED BLOOD COUNT 2.83 M/UL (4.70-6.10); RED CELL DISTRIBUTION WIDTH 16.6 % (11.6-14.8); WHITE BLOOD COUNT 14.9 K/UL (4.8-10.8)
--- NOTE | 2018-09-04 13:51 | Cardiac Electrophysiology PN ---
Assessment/Plan Assessment/Plan 1. Atrial fibrillation with rapid ventricular response. In SR on metoprolol 50 mg bid, digoxin 0.125, amiodarone 200 daily and Eliquis 2. Fever and sepsis with Positive blood culture. IV antibiotics per Dr. Parker. 3. Dementia and psychosis. 4. 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 5. Sacral decubitus.S/P debridement 6. C. Diff colitis.On Flagyl 7. Hypotension. Resolved. 8. Hypokalemia, on Aldactone 25 bid 9. Anemia, S/P PRBC. 10. Dysphagia. S/P PEG DW RN Subjective Subjective In isolation in NAD. Was bradycardic in 50s Objective Last 24 Hour Vital Signs Date Time Temp Pulse Resp B/P (MAP) Pulse Ox O2 Delivery O2 Flow Rate FiO2 09/04/18 09:00 Nasal Cannula 2.0 09/04/18 08:34 98.6 58 17 115/56 (75) 100 09/04/18 08:14 63 101/61 09/04/18 04:00 99.4 63 18 101/61 (74) 100 09/04/18 00:24 98 Nasal Cannula 2.0 28 09/04/18 00:24 67 20 Nasal Cannula 2.0 28 09/04/18 00:24 Nasal Cannula 2.0 28 09/04/18 00:20 99.2 65 18 123/63 (83) 97 09/03/18 21:00 Nasal Cannula 2.0 09/03/18 20:37 63 99/59 09/03/18 20:00 96.9 63 18 99/59 (72) 94 09/03/18 16:00 98.4 65 17 120/60 (80) 94 Intake and Output 09/03/18 09/04/18 19:00 07:00 Intake Total 820 ml 940 ml Output Total 200 ml Balance 620 ml 940 ml Free Water 100 ml 220 ml Tube Feeding 720 ml 720 ml Stool Total 200 ml Laboratory Tests Test 09/04/18 05:30 09/04/18 05:34 White Blood Count 14.9 K/UL (4.8-10.8) H Red Blood Count 2.83 M/UL (4.70-6.10) L Hemoglobin 8.4 G/DL (14.2-18.0) L Hematocrit 27.5 % (42.0-52.0) L Mean Corpuscular Volume 97 FL (80-99) Mean Corpuscular Hemoglobin 29.7 PG (27.0-31.0) Mean Corpuscular Hemoglobin Concent 30.5 G/DL (32.0-36.0) L Red Cell Distribution Width 16.6 % (11.6-14.8) H Platelet Count 161 K/UL (150-450) Mean Platelet Volume 5.1 FL (6.5-10.1) L Neutrophils (%) (Auto) 69.7 % (45.0-75.0) Lymphocytes (%) (Auto) 22.4 % (20.0-45.0) Monocytes (%) (Auto) 7.1 % (1.0-10.0) Eosinophils (%) (Auto) 0.5 % (0.0-3.0) Basophils (%) (Auto) 0.4 % (0.0-2.0) Sodium Level Pending 142 MMOL/L (136-145) Potassium Level Pending 4.8 MMOL/L (3.5-5.1) Chloride Level Pending 109 MMOL/L (98-107) H Carbon Dioxide Level Pending 29 MMOL/L (21-32) Blood Urea Nitrogen Pending 8 mg/dL (7-18) Creatinine Pending 0.4 MG/DL (0.55-1.30) L Estimat Glomerular Filtration Rate Pending > 60 mL/min (>60) Glucose Level Pending 77 MG/DL (74-106) Calcium Level Pending 7.6 MG/DL (8.5-10.1) L Total Bilirubin Pending 0.4 MG/DL (0.2-1.0) Aspartate Amino Transf (AST/SGOT) Pending 18 U/L (15-37) Alanine Aminotransferase (ALT/SGPT) Pending 9 U/L (12-78) L Alkaline Phosphatase Pending 98 U/L (46-116) Total Protein Pending 5.1 G/DL (6.4-8.2) L Albumin Pending 1.0 G/DL (3.4-5.0) L Globulin Pending 4.1 g/dL Anion Gap 4 mmol/L (5-15) L Phosphorus Level 2.6 MG/DL (2.5-4.9) Magnesium Level 1.6 MG/DL (1.8-2.4) L Albumin/Globulin Ratio 0.2 (1.0-2.7) L Digoxin Level 0.8 NG/ML (0.5-2.0) Objective HEAD AND NECK: No JVD. LUNGS: Have coarse rhonchi. CARDIOVASCULAR: Irregular S1 and S2 with no gallop or murmur. ABDOMEN: Soft.PEG in place EXTREMITIES: Bilateral above-knee amputation. Amandeep Arora MD Sep 04, 2018 13:51
[2018-09-04] MEDS ORDERED: Potassium Phosphate 30 MM in NS 275 ML IV ONE (15:00)
[2018-09-04 16:00] VITALS: BP 107/59
--- NOTE | 2018-09-04 16:18 | Nephrology Progress Note ---
Assessment/Plan Problem List: (1) Hypokalemia Assessment: also Low Phos and Low Mag (2) HTN (hypertension) (3) Atrial fibrillation (4) Clostridium difficile colitis (5) Decubitus ulcer (6) Anemia Assessment Low Phos Low K Low Mag C deficil colitis Sepsis Decubiti Anemia CVA At fib Plan K , Mag , Phos supplement IV as needed until diarrhea subcides per orders add B6 Down on Dig dose Aldactone Monitor labs per consultants discussed with Dr Montesinos Subjective ROS Limited/Unobtainable: No Constitutional: Reports: malaise Objective Objective Last 24 Hour Vital Signs Date Time Temp Pulse Resp B/P (MAP) Pulse Ox O2 Delivery O2 Flow Rate FiO2 09/04/18 12:00 97.5 51 18 90/56 (67) 99 09/04/18 09:00 Nasal Cannula 2.0 09/04/18 08:34 98.6 58 17 115/56 (75) 100 09/04/18 08:14 63 101/61 09/04/18 07:00 Nasal Cannula 2.0 28 09/04/18 07:00 99 Nasal Cannula 2.0 28 09/04/18 04:00 99.4 63 18 101/61 (74) 100 09/04/18 00:24 98 Nasal Cannula 2.0 28 09/04/18 00:24 67 20 Nasal Cannula 2.0 28 09/04/18 00:24 Nasal Cannula 2.0 28 09/04/18 00:20 99.2 65 18 123/63 (83) 97 09/03/18 21:00 Nasal Cannula 2.0 09/03/18 20:37 63 99/59 09/03/18 20:00 96.9 63 18 99/59 (72) 94 Intake and Output 09/03/18 09/04/18 19:00 07:00 Intake Total 820 ml 940 ml Output Total 200 ml Balance 620 ml 940 ml Free Water 100 ml 220 ml Tube Feeding 720 ml 720 ml Stool Total 200 ml Laboratory Tests 09/04/18 05:30: White Blood Count 14.9H, Red Blood Count 2.83L, Hemoglobin 8.4L, Hematocrit 27.5L, Mean Corpuscular Volume 97, Mean Corpuscular Hemoglobin 29.7, Mean Corpuscular Hemoglobin Concent 30.5L, Red Cell Distribution Width 16.6H, Platelet Count 161, Mean Platelet Volume 5.1L, Neutrophils (%) (Auto) 69.7, Lymphocytes (%) (Auto) 22.4, Monocytes (%) (Auto) 7.1, Eosinophils (%) (Auto) 0.5, Basophils (%) (Auto) 0.4, Sodium Level [Pending], Potassium Level [Pending] , Chloride Level [Pending], Carbon Dioxide Level [Pending], Blood Urea Nitrogen [Pending], Creatinine [Pending], Estimat Glomerular Filtration Rate [Pending], Glucose Level [Pending], Calcium Level [Pending], Total Bilirubin [Pending], Aspartate Amino Transf (AST/SGOT) [Pending], Alanine Aminotransferase (ALT/SGPT ) [Pending], Alkaline Phosphatase [Pending], Total Protein [Pending], Albumin [ Pending], Globulin [Pending] 09/04/18 05:34: Sodium Level 142, Potassium Level 4.8, Chloride Level 109H, Carbon Dioxide Level 29, Blood Urea Nitrogen 8, Creatinine 0.4L, Estimat Glomerular Filtration Rate > 60, Glucose Level 77, Calcium Level 7.6L, Total Bilirubin 0.4, Aspartate Amino Transf (AST/SGOT) 18, Alanine Aminotransferase (ALT/SGPT) 9L, Alkaline Phosphatase 98, Total Protein 5.1L, Albumin 1.0L, Globulin 4.1, Anion Gap 4L, Phosphorus Level 2.6, Magnesium Level 1.6L, Albumin/Globulin Ratio 0.2L, Digoxin Level 0.8 Height (Feet): 6 Height (Inches): 0.40 Weight (Pounds): 164 General Appearance: no apparent distress, lethargic Objective no change Ruy Colvin MD Sep 04, 2018 16:18
--- NOTE | 2018-09-04 16:48 | Diagnostic Imaging Report ---
Indication: Cough, shortness of breath Technique: One view of the chest Comparison: 08/28/2018 Findings: Large left pleural effusion is unchanged. There is some hazy opacity at the right lung base, could represent infiltrate or pleural fluid. There is mild generalized interstitial congestion, which is new since prior study The heart is enlarged with a left ventricular hypertrophy configuration. The aorta is tortuous and ectatic. Previously demonstrated nasogastric tubes removed Impression: New/increased bilateral interstitial edema Right basilar hazy opacity, new, may reflect a pleural effusion versus hazy infiltrate Table large left pleural effusion again demonstrated
--- NOTE | 2018-09-04 18:06 | Internal Med Progress Note ---
Subjective Physician Name Pedro Caban Attending Physician Pedro Caban MD Current Medications Medications (Trade) Dose Ordered Sig/Erlin Route PRN Reason Start Time Stop Time Status Last Admin Dose Admin Acetaminophen (Tylenol) 650 mg Q4H PRN PEG Mild Pain (Pain Scale 1-3) 08/31/18 02:02 09/13/18 02:01 Acetaminophen (Tylenol) 650 mg Q6H PRN PEG Temp > 100.5 08/31/18 02:02 09/13/18 02:01 Amiodarone HCl (Cordarone) 200 mg DAILY PEG 08/31/18 09:00 09/19/18 08:59 09/04/18 08:14 Apixaban (Eliquis) 2.5 mg Q12HR NG 08/31/18 09:00 09/29/18 20:59 09/04/18 08:14 Chlorhexidine Gluconate (Yari-Hex 2%) 1 applic DAILY@1999 TOPIC 08/31/18 20:00 09/21/18 19:59 09/03/18 20:36 Clonidine HCl (Catapres Tab) 0.1 mg Q4H PRN GT For High Blood Pressure 08/31/18 15:44 09/21/18 15:43 Digoxin (Lanoxin) 0.125 mg QOD PEG 09/05/18 09:00 09/19/18 08:59 Famotidine (Pepcid) 20 mg BID ORAL 09/02/18 18:00 10/02/18 17:59 09/04/18 16:48 Fidaxomicin (Dificid) 200 mg EVERY 12 HOURS ORAL 08/31/18 21:00 09/07/18 20:59 09/04/18 11:24 Isoniazid (Inh) 300 mg DAILY GT 08/31/18 09:00 09/13/18 08:59 09/04/18 08:13 Lactobacillus Acidophilus (Culturelle) 1 tab THREE TIMES A DAY GT 08/31/18 09:00 09/18/18 08:59 09/04/18 16:49 Loperamide HCl (Imodium) 2 mg EVERY 8 HOURS NG 08/31/18 06:00 09/29/18 13:59 09/04/18 12:57 Metoprolol Tartrate (Lopressor) 25 mg Q12HR PEG 08/31/18 09:00 09/22/18 20:59 09/04/18 08:14 Potassium Phosphate 30 mm/ Sodium Chloride 285 ml @ 47.5 mls/hr ONCE ONCE IV 09/04/18 15:00 09/04/18 20:59 09/04/18 15:30 Pyridoxine HCl (Vitamin B6) 50 mg DAILY GT 09/03/18 17:00 10/03/18 16:59 09/04/18 08:14 Sodium Hypochlorite (Dakin's Quarter Strength) 1 applic DAILY TOPIC 08/31/18 09:00 09/13/18 15:59 09/04/18 08:28 Allergies: Coded Allergies: MILK (Verified Allergy, Unknown, 02/02/18) Subjective more responsive, open eyes, Talking now, rectal tube, WBC: 14.9. Objective Last Vital Signs Date Time Temp Pulse Resp B/P (MAP) Pulse Ox O2 Delivery O2 Flow Rate FiO2 09/04/18 16:00 97.9 56 18 107/59 (75) 100 09/04/18 09:00 Nasal Cannula 2.0 09/04/18 07:00 28 Laboratory Tests Test 09/04/18 05:30 09/04/18 05:34 White Blood Count 14.9 K/UL (4.8-10.8) H Red Blood Count 2.83 M/UL (4.70-6.10) L Hemoglobin 8.4 G/DL (14.2-18.0) L Hematocrit 27.5 % (42.0-52.0) L Mean Corpuscular Volume 97 FL (80-99) Mean Corpuscular Hemoglobin 29.7 PG (27.0-31.0) Mean Corpuscular Hemoglobin Concent 30.5 G/DL (32.0-36.0) L Red Cell Distribution Width 16.6 % (11.6-14.8) H Platelet Count 161 K/UL (150-450) Mean Platelet Volume 5.1 FL (6.5-10.1) L Neutrophils (%) (Auto) 69.7 % (45.0-75.0) Lymphocytes (%) (Auto) 22.4 % (20.0-45.0) Monocytes (%) (Auto) 7.1 % (1.0-10.0) Eosinophils (%) (Auto) 0.5 % (0.0-3.0) Basophils (%) (Auto) 0.4 % (0.0-2.0) Sodium Level Pending 142 MMOL/L (136-145) Potassium Level Pending 4.8 MMOL/L (3.5-5.1) Chloride Level Pending 109 MMOL/L (98-107) H Carbon Dioxide Level Pending 29 MMOL/L (21-32) Blood Urea Nitrogen Pending 8 mg/dL (7-18) Creatinine Pending 0.4 MG/DL (0.55-1.30) L Estimat Glomerular Filtration Rate Pending > 60 mL/min (>60) Glucose Level Pending 77 MG/DL (74-106) Calcium Level Pending 7.6 MG/DL (8.5-10.1) L Total Bilirubin Pending 0.4 MG/DL (0.2-1.0) Aspartate Amino Transf (AST/SGOT) Pending 18 U/L (15-37) Alanine Aminotransferase (ALT/SGPT) Pending 9 U/L (12-78) L Alkaline Phosphatase Pending 98 U/L (46-116) Total Protein Pending 5.1 G/DL (6.4-8.2) L Albumin Pending 1.0 G/DL (3.4-5.0) L Globulin Pending 4.1 g/dL Anion Gap 4 mmol/L (5-15) L Phosphorus Level 2.6 MG/DL (2.5-4.9) Magnesium Level 1.6 MG/DL (1.8-2.4) L Albumin/Globulin Ratio 0.2 (1.0-2.7) L Digoxin Level 0.8 NG/ML (0.5-2.0) Intake and Output 09/03/18 09/04/18 18:59 06:59 Intake Total 820 ml 1000 ml Output Total 200 ml Balance 620 ml 1000 ml Free Water 100 ml 220 ml Tube Feeding 720 ml 780 ml Stool Total 200 ml Objective General: No acute distress, less responsive, open eyes only, not verbal HEENT: NCAT, sclera anicteric, PERRL, EOMI Neck: Supple, no significant jugular venous distention, Lungs: Fair inspiratory effort,decrease bilateral air entry at bases.l no Wheeze or Rales. Heart: Regular rate and rhythm, normal S1/S2, no murmur Abdomen: soft, generalized tenderness, less distended. Normoactive bowel sounds , Rectal Tube, PEG site intact. Extremities: No Cyanosis , clubbing or edema. bilateral AKA, less stump edema, RUE Piccline. Neuro: A&O x 1, Able to move upper extremities. SKIN: Multiple Decubi ulceration Assessment/Plan Assessment/Plan (1) Sepsis / bacteremia. 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 F/U with ID recommendations: Continue PO Fidaxomicin #5/10 given ongoing diarrhea despite oral vancomycin Pedro Caban MD Sep 04, 2018 18:05
[2018-09-04 20:00] VITALS: BP 110/58
[2018-09-04] MEDS: Dyna-Hex 2% Top Sol 2oz TOPIC SCH (21:17)
[2018-09-04 22:09] LABS: APPEARANCE,URINE SLIGHTLY CLOUDY; BILIRUBIN, URINE NEGATIVE (NEGATIVE); GLUCOSE, URINE (UA) NEGATIVE (NEGATIVE); KETONES,URINE NEGATIVE (NEGATIVE); LEUKOCYTE ESTERASE ,URINE 2+ (NEGATIVE); NITRITE,URINE NEGATIVE (NEGATIVE); PH,URINE 5 (4.5-8.0); PROTEIN,URINE NEGATIVE (NEGATIVE); UROBILINOGEN,URINE NORMAL MG/DL (0.0-1.0)
[2018-09-04 22:10] LABS: COLOR,URINE YELLOW
--- NOTE | 2018-09-04 22:17 | General Progress Note ---
Assessment/Plan Assessment/Plan Assessment - C Difficile colitis - abnormal lytes - failed swallow eval - s/p PEG - s/p b/l AKA - anemia - duodenal ulcers - bacteremia, leukocytosis - improving Recommendations - Dificid - probiotics - may need fecal microbial transplant - add Questrean in between each dose of Dificid - elevate HOB - replace electrolytes - IVF - transfuse PRN - PPI - TF - anticoagulation - Poor Px Subjective Allergies: Coded Allergies: MILK (Verified Allergy, Unknown, 02/02/18) Subjective above noted d/w balance staff staker still with diarrhea still with leukocytosis still with electrolyte disturbances Objective Last 24 Hour Vital Signs Date Time Temp Pulse Resp B/P (MAP) Pulse Ox O2 Delivery O2 Flow Rate FiO2 09/04/18 21:00 59 110/58 09/04/18 20:42 Nasal Cannula 2.0 09/04/18 20:00 99.1 59 18 110/58 (75) 96 09/04/18 16:00 97.9 56 18 107/59 (75) 100 09/04/18 12:00 97.5 51 18 90/56 (67) 99 09/04/18 09:00 Nasal Cannula 2.0 09/04/18 08:34 98.6 58 17 115/56 (75) 100 09/04/18 08:14 63 101/61 09/04/18 07:00 Nasal Cannula 2.0 28 09/04/18 07:00 99 Nasal Cannula 2.0 28 09/04/18 04:00 99.4 63 18 101/61 (74) 100 09/04/18 00:24 98 Nasal Cannula 2.0 28 09/04/18 00:24 67 20 Nasal Cannula 2.0 28 09/04/18 00:24 Nasal Cannula 2.0 28 09/04/18 00:20 99.2 65 18 123/63 (83) 97 Intake and Output 09/03/18 09/04/18 19:00 07:00 Intake Total 820 ml 940 ml Output Total 200 ml Balance 620 ml 940 ml Free Water 100 ml 220 ml Tube Feeding 720 ml 720 ml Stool Total 200 ml Laboratory Tests 09/04/18 05:30: White Blood Count 14.9H, Red Blood Count 2.83L, Hemoglobin 8.4L, Hematocrit 27.5L, Mean Corpuscular Volume 97, Mean Corpuscular Hemoglobin 29.7, Mean Corpuscular Hemoglobin Concent 30.5L, Red Cell Distribution Width 16.6H, Platelet Count 161, Mean Platelet Volume 5.1L, Neutrophils (%) (Auto) 69.7, Lymphocytes (%) (Auto) 22.4, Monocytes (%) (Auto) 7.1, Eosinophils (%) (Auto) 0.5, Basophils (%) (Auto) 0.4 09/04/18 05:34: Sodium Level 142, Potassium Level 4.8, Chloride Level 109H, Carbon Dioxide Level 29, Anion Gap 4L, Blood Urea Nitrogen 8, Creatinine 0.4L, Estimat Glomerular Filtration Rate > 60, Glucose Level 77, Calcium Level 7.6L, Phosphorus Level 2.6, Magnesium Level 1.6L, Total Bilirubin 0.4, Aspartate Amino Transf (AST/SGOT) 18, Alanine Aminotransferase (ALT/SGPT) 9L, Alkaline Phosphatase 98, Total Protein 5.1L, Albumin 1.0L, Globulin 4.1, Albumin/ Globulin Ratio 0.2L, Digoxin Level 0.8 09/04/18 22:00: Sodium Level [Pending], Potassium Level [Pending], Chloride Level [Pending], Carbon Dioxide Level [Pending], Blood Urea Nitrogen [Pending], Creatinine [ Pending], Estimat Glomerular Filtration Rate [Pending], Glucose Level [Pending] , Calcium Level [Pending], Total Bilirubin [Pending], Aspartate Amino Transf ( AST/SGOT) [Pending], Alanine Aminotransferase (ALT/SGPT) [Pending], Alkaline Phosphatase [Pending], Total Protein [Pending], Albumin [Pending], Globulin [ Pending], Urine Color Yellow, Urine Appearance Slightly cloudy, Urine pH 5, Urine Specific [place] 1.015, Urine Protein Negative, Urine Glucose (UA) Negative, Urine Ketones Negative, Urine Blood 3+H, Urine Nitrite Negative, Urine Bilirubin Negative, Urine Urobilinogen Normal, Urine Leukocyte Esterase 2+ H, Urine RBC [Pending], Urine WBC [Pending], Urine Squamous Epithelial Cells [ Pending], Urine Bacteria [Pending] Height (Feet): 6 Height (Inches): 0.40 Weight (Pounds): 164 Objective Elderly AA man NCAT supple CTA RRR Abd soft (+) AKA Monaorrami,Payman MD Sep 04, 2018 22:17
[2018-09-04 22:20] LABS: ALANINE AMINOTRANSFERASE 9 U/L (12-78); ALBUMIN/GLOBULIN RATIO 0.2 (1.0-2.7); ALKALINE PHOSPHATASE 108 U/L (46-116); ANION GAP 1 mmol/L (5-15); ASPARTATE AMINO TRANSFERASE 16 U/L (15-37); BILIRUBIN,TOTAL 0.2 MG/DL (0.2-1.0); BLOOD UREA NITROGEN 9 mg/dL (7-18); CALCIUM 7.5 MG/DL (8.5-10.1); CARBON DIOXIDE 30 MMOL/L (21-32); CHLORIDE 109 MMOL/L (98-107); CREATININE 0.4 MG/DL (0.55-1.30); POTASSIUM 5.4 MMOL/L (3.5-5.1); SODIUM 140 MMOL/L (136-145)
[2018-09-05 00:07] VITALS: BP 111/62
[2018-09-05 04:00] VITALS: BP 138/22
[2018-09-05] MEDS: Cholestyramine 4gm Pkt ORAL SCH ×2 (04:18→17:31)
[2018-09-05 08:00] VITALS: BP 126/84
[2018-09-05] MEDS: Pyridoxine 50mg tab GT SCH (10:10)
[2018-09-05] MEDS: Digoxin 0.125mg tab PEG SCH (10:10)
[2018-09-05] MEDS: Eliquis 2.5mg tablet NG SCH (10:10)
[2018-09-05] MEDS: Metoprolol 25mg tab PEG SCH ×2 (10:10→20:28)
[2018-09-05] MEDS: Isoniazid 300mg tab GT SCH (10:11)
[2018-09-05] MEDS: Lactobacillus-GG tablet GT SCH ×3 (10:11→17:31)
[2018-09-05] MEDS: Dakin's 0.125% Soln (Quarter Strength) 16oz TOPIC SCH (10:11)
[2018-09-05] MEDS: Amiodarone 200mg tab PEG SCH (10:11)
[2018-09-05 12:00] VITALS: BP 118/66
--- NOTE | 2018-09-05 12:57 | Infectious Diseases Prog Note ---
Assessment/Plan Assessment/Plan Sepsis-2ry to bacteremia (likley from GI translocation ) -CT abd/p" Colonic mural thickening consistent with some form of colitis. No pneumatosis or extraluminal air. C Diff , ongoing diarrhea -Cdif toxin a/b + -Bcx 08/21 GNR, 08/21 ESBL Proteus mirabilis (S Ertapenem, Zosyn), 08/21 Group C strep ; 08/15 Bcx 07/24 Prevotella L . (R Clinda, Unasyn; S flagyl) ;08/17 Bcx 07/24 EUBACTERIUM LENTUM 08/21 Bcx Neg -u/a no pyuria -CXR: Suspect a small left pleural effusion. Mild basal atelectasis -influenza sc neg Fever, SP Leukocytosis , mild recurrent -09/04 CXR: New/increased bilateral interstitial edema/ Right basilar hazy opacity, new, may reflect a pleural effusion versus hazy infiltrate u/a wbc 20-30 -08/28 CXR: There is decreased consolidation at the right lung base. There is some residual perihilar atelectasis. Hx of lung cavitary lesion/ PNA- suspect likely to aspiration; lower suspicion for TB and/or fungal etiologies -06/08 CT chest: * Interval resolution of the cavitary component associated with the previously described anterior right upper lobe opacity. It is slightly decreased in size and more nodular in appearance on today's exam. Additional patchy opacities in the posterior right upper lobe are also slightly decreased in size and appear more nodular (previously were groundglass). Findings likely related to evolving infectious or inflammatory lesions however continued follow-up is recommended to assure resolution/exclude the possibility of neoplastic etiologies. -CT c/a/p: 10 mm opacity in the peripheral anterolateral right upper lobe with small central cavitation. Patchy groundglass opacity in the posterior right upper lobe. Suspect that these represent inflammatory/infectious lesions, but neoplastic etiology of either is certainly possible. Large left and moderate right pleural effusions. Resultant compressive atelectasis of portions of the lower lobes. 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 Hypertension. Multiple decubiti ulcers (elbow, sacral) -not infected Bipolar disorder. Coronary artery disease. VRE and MRSA colonized Plan: -Continue PO Fidaxomicin #/ given ongoing diarrhea despite oral vancomycin -agree with addition of cholestyramine -if diarrhea not improving, may need fecal transplant -Cont INH for latent TB -08/31 SP PO Vancomycin #17 -08/29 SP Meropenem #13 -08/26 SP Flagyl #5 -08/17 SP Zosyn #3, Daptomycin # -08/15 SP Tamiflu #2, Ceftriaxone #2 -08/14 SP Cefepime and LEvaquin x1 -Monitor CBC/CMP, temperatures -wound care -aspiration precautions -Sx f/u -f/u cx -sp cx Subjective Allergies: Coded Allergies: MILK (Verified Allergy, Unknown, 02/02/18) Subjective afebrile leukocytosis, increased to 14 still having diarreha Objective Vital Signs Last 24 Hour Vital Signs Date Time Temp Pulse Resp B/P (MAP) Pulse Ox O2 Delivery O2 Flow Rate FiO2 09/05/18 12:00 98.1 72 16 118/66 (83) 99 09/05/18 10:10 70 09/05/18 10:10 70 124/82 09/05/18 09:00 Nasal Cannula 2.0 09/05/18 08:00 98.4 70 16 126/84 (98) 98 09/05/18 04:00 98.4 71 18 138/22 (60) 98 09/05/18 00:07 99.3 62 17 111/62 (78) 96 09/04/18 21:00 59 110/58 09/04/18 20:50 Nasal Cannula 2.0 28 09/04/18 20:50 99 Nasal Cannula 2.0 28 09/04/18 20:42 Nasal Cannula 2.0 09/04/18 20:00 99.1 59 18 110/58 (75) 96 09/04/18 16:00 97.9 56 18 107/59 (75) 100 Height (Feet): 6 Height (Inches): 0.40 Weight (Pounds): 164 Objective General appearance: alert, cooperative, no distress, appears stated age Head: Normocephalic, without obvious abnormality, atraumatic Eyes: conjunctivae/corneas clear. PERRL, EOM's intact. Fundi benign Throat: Lips, mucosa, and tongue normal. Teeth and gums normal Neck: supple, symmetrical, trachea midline, no adenopathy, thyroid: not enlarged, symmetric, no tenderness/mass/nodules, no carotid bruit and no JVD Lungs: clear to auscultation bilaterally Heart: regular rate and rhythm, S1, S2 normal, no murmur, click, rub or gallop Abdomen: soft, non-tender. Bowel sounds normal. No masses, no organomegaly Extremities: extremities normal, atraumatic, no cyanosis or edema/ s/p bilateral aka Pulses: 2+ and symmetric Skin: Skin color, texture, turgor normal. No rashes or lesions. multiple large decubitus ulcers. Neurologic: Grossly normal Laboratory Tests Test 09/04/18 22:00 Urine Color Yellow Urine Appearance Slightly cloudy Urine pH 5 (4.5-8.0) Urine Specific [place] 1.015 (1.005-1.035) Urine Protein Negative (NEGATIVE) Urine Glucose (UA) Negative (NEGATIVE) Urine Ketones Negative (NEGATIVE) Urine Blood 3+ (NEGATIVE) H Urine Nitrite Negative (NEGATIVE) Urine Bilirubin Negative (NEGATIVE) Urine Urobilinogen Normal MG/DL (0.0-1.0) Urine Leukocyte Esterase 2+ (NEGATIVE) H Urine RBC 10-15 /HPF (0 - 0) H Urine WBC 20-30 /HPF (0 - 0) H Urine Squamous Epithelial Cells Occasional /LPF Urine Bacteria Moderate /HPF (NONE) H Urine Yeast Many /HPF (NONE) H Sodium Level 140 MMOL/L (136-145) Potassium Level 5.4 MMOL/L (3.5-5.1) H Chloride Level 109 MMOL/L (98-107) H Carbon Dioxide Level 30 MMOL/L (21-32) Anion Gap 1 mmol/L (5-15) L Blood Urea Nitrogen 9 mg/dL (7-18) Creatinine 0.4 MG/DL (0.55-1.30) L Estimat Glomerular Filtration Rate > 60 mL/min (>60) Glucose Level 156 MG/DL (74-106) H Calcium Level 7.5 MG/DL (8.5-10.1) L Total Bilirubin 0.2 MG/DL (0.2-1.0) Aspartate Amino Transf (AST/SGOT) 16 U/L (15-37) Alanine Aminotransferase (ALT/SGPT) 9 U/L (12-78) L Alkaline Phosphatase 108 U/L (46-116) Total Protein 5.0 G/DL (6.4-8.2) L Albumin 1.0 G/DL (3.4-5.0) L Globulin 4.0 g/dL Albumin/Globulin Ratio 0.2 (1.0-2.7) L Current Medications Medications (Trade) Dose Ordered Sig/Erlin Route PRN Reason Start Time Stop Time Status Last Admin Dose Admin Acetaminophen (Tylenol) 650 mg Q4H PRN PEG Mild Pain (Pain Scale 1-3) 08/31/18 02:02 09/13/18 02:01 Acetaminophen (Tylenol) 650 mg Q6H PRN PEG Temp > 100.5 08/31/18 02:02 09/13/18 02:01 Amiodarone HCl (Cordarone) 200 mg DAILY PEG 08/31/18 09:00 09/19/18 08:59 09/05/18 10:11 Apixaban (Eliquis) 2.5 mg Q12HR NG 08/31/18 09:00 09/29/18 20:59 09/05/18 10:10 Chlorhexidine Gluconate (Yari-Hex 2%) 1 applic DAILY@1999 TOPIC 08/31/18 20:00 09/21/18 19:59 09/04/18 21:17 Cholestyramine Resin (Questran) 4 gm Q12H ORAL 09/05/18 05:00 10/05/18 04:59 09/05/18 04:18 Clonidine HCl (Catapres Tab) 0.1 mg Q4H PRN GT For High Blood Pressure 08/31/18 15:44 09/21/18 15:43 Digoxin (Lanoxin) 0.125 mg QOD PEG 09/05/18 09:00 09/19/18 08:59 09/05/18 10:10 Famotidine (Pepcid) 20 mg BID ORAL 09/02/18 18:00 10/02/18 17:59 09/05/18 10:11 Fidaxomicin (Dificid) 200 mg EVERY 12 HOURS ORAL 08/31/18 21:00 09/07/18 20:59 09/05/18 10:10 Isoniazid (Inh) 300 mg DAILY GT 08/31/18 09:00 09/13/18 08:59 09/05/18 10:11 Lactobacillus Acidophilus (Culturelle) 1 tab THREE TIMES A DAY GT 08/31/18 09:00 09/18/18 08:59 09/05/18 10:11 Loperamide HCl (Imodium) 2 mg EVERY 8 HOURS NG 08/31/18 06:00 09/29/18 13:59 09/05/18 06:12 Metoprolol Tartrate (Lopressor) 25 mg Q12HR PEG 08/31/18 09:00 09/22/18 20:59 09/05/18 10:10 Pyridoxine HCl (Vitamin B6) 50 mg DAILY GT 09/03/18 17:00 10/03/18 16:59 09/05/18 10:10 Sodium Hypochlorite (Dakin's Quarter Strength) 1 applic DAILY TOPIC 08/31/18 09:00 09/13/18 15:59 09/05/18 10:11 Alma Elkins M.D. Sep 05, 2018 12:57
--- NOTE | 2018-09-05 13:23 | Pulmonology Progress Note ---
Assessment/Plan Problems: (1) Clostridium difficile colitis (2) Acute metabolic encephalopathy (3) Sepsis (4) Decubitus skin ulcer (5) UTI (urinary tract infection) (6) Anemia (7) CVA (cerebral vascular accident) Assessment/Plan mental status better afebrile check electrolytes continue current meds. dvt prophylaxis. got his PEG K, phos, mg supplement med/surg dc planning Subjective ROS Limited/Unobtainable: No Constitutional: Reports: no symptoms HEENT: Repors: no symptoms Allergies: Coded Allergies: MILK (Verified Allergy, Unknown, 02/02/18) Objective Last 24 Hour Vital Signs Date Time Temp Pulse Resp B/P (MAP) Pulse Ox O2 Delivery O2 Flow Rate FiO2 09/05/18 12:00 98.1 72 16 118/66 (83) 99 09/05/18 10:10 70 09/05/18 10:10 70 124/82 09/05/18 09:00 Nasal Cannula 2.0 09/05/18 08:00 98.4 70 16 126/84 (98) 98 09/05/18 04:00 98.4 71 18 138/22 (60) 98 09/05/18 00:07 99.3 62 17 111/62 (78) 96 09/04/18 21:00 59 110/58 09/04/18 20:50 Nasal Cannula 2.0 28 09/04/18 20:50 99 Nasal Cannula 2.0 28 09/04/18 20:42 Nasal Cannula 2.0 09/04/18 20:00 99.1 59 18 110/58 (75) 96 09/04/18 16:00 97.9 56 18 107/59 (75) 100 Intake and Output 09/04/18 09/05/18 19:00 07:00 Intake Total 540 ml 960 ml Output Total 2000 ml 650 ml Balance -1460 ml 310 ml Free Water 240 ml Tube Feeding 540 ml 720 ml Output Urine Total 1200 ml 650 ml Stool Total 800 ml # Voids 1 Objective General Appearance: WD/WN HEENT: normocephalic, atraumatic Respiratory/Chest: chest wall non-tender, lungs clear Cardiovascular: normal peripheral pulses, normal rate Abdomen: normal bowel sounds, soft, non tender Extremities: no cyanosis Skin: extensive decubiti Laboratory Tests 09/04/18 22:00: Urine Color Yellow, Urine Appearance Slightly cloudy, Urine pH 5, Urine Specific [place] 1.015, Urine Protein Negative, Urine Glucose (UA) Negative, Urine Ketones Negative, Urine Blood 3+H, Urine Nitrite Negative, Urine Bilirubin Negative, Urine Urobilinogen Normal, Urine Leukocyte Esterase 2+H, Urine RBC 10-15H, Urine WBC 20-30H, Urine Squamous Epithelial Cells Occasional, Urine Bacteria ModerateH, Urine Yeast ManyH, Sodium Level 140, Potassium Level 5.4H, Chloride Level 109H, Carbon Dioxide Level 30, Anion Gap 1L, Blood Urea Nitrogen 9, Creatinine 0.4L, Estimat Glomerular Filtration Rate > 60, Glucose Level 156H, Calcium Level 7.5L, Total Bilirubin 0.2, Aspartate Amino Transf (AST /SGOT) 16, Alanine Aminotransferase (ALT/SGPT) 9L, Alkaline Phosphatase 108, Total Protein 5.0L, Albumin 1.0L, Globulin 4.0, Albumin/Globulin Ratio 0.2L Current Medications Medications (Trade) Dose Ordered Sig/Elrin Route PRN Reason Start Time Stop Time Status Last Admin Dose Admin Acetaminophen (Tylenol) 650 mg Q4H PRN PEG Mild Pain (Pain Scale 1-3) 08/31/18 02:02 09/13/18 02:01 Acetaminophen (Tylenol) 650 mg Q6H PRN PEG Temp > 100.5 08/31/18 02:02 09/13/18 02:01 Amiodarone HCl (Cordarone) 200 mg DAILY PEG 08/31/18 09:00 09/19/18 08:59 09/05/18 10:11 Apixaban (Eliquis) 2.5 mg Q12HR NG 08/31/18 09:00 09/29/18 20:59 09/05/18 10:10 Chlorhexidine Gluconate (Yari-Hex 2%) 1 applic DAILY@2000 TOPIC 08/31/18 20:00 09/21/18 19:59 09/04/18 21:17 Cholestyramine Resin (Questran) 4 gm Q12H ORAL 09/05/18 05:00 10/05/18 04:59 09/05/18 04:18 Clonidine HCl (Catapres Tab) 0.1 mg Q4H PRN GT For High Blood Pressure 08/31/18 15:44 09/21/18 15:43 Digoxin (Lanoxin) 0.125 mg QOD PEG 09/05/18 09:00 09/19/18 08:59 09/05/18 10:10 Famotidine (Pepcid) 20 mg BID ORAL 09/02/18 18:00 10/02/18 17:59 09/05/18 10:11 Fidaxomicin (Dificid) 200 mg EVERY 12 HOURS ORAL 08/31/18 21:00 09/07/18 20:59 09/05/18 10:10 Isoniazid (Inh) 300 mg DAILY GT 08/31/18 09:00 09/13/18 08:59 09/05/18 10:11 Lactobacillus Acidophilus (Culturelle) 1 tab THREE TIMES A DAY GT 08/31/18 09:00 09/18/18 08:59 09/05/18 10:11 Loperamide HCl (Imodium) 2 mg EVERY 8 HOURS NG 08/31/18 06:00 09/29/18 13:59 09/05/18 06:12 Metoprolol Tartrate (Lopressor) 25 mg Q12HR PEG 08/31/18 09:00 09/22/18 20:59 09/05/18 10:10 Pyridoxine HCl (Vitamin B6) 50 mg DAILY GT 09/03/18 17:00 10/03/18 16:59 09/05/18 10:10 Sodium Hypochlorite (Dakin's Quarter Strength) 1 applic DAILY TOPIC 08/31/18 09:00 09/13/18 15:59 09/05/18 10:11 Minerva Montesinos MD Sep 05, 2018 13:23
[2018-09-05] MEDS ORDERED: INH300 MG GT (13:26)
[2018-09-05] MEDS ORDERED: DIFICID200 MG ORAL (13:26)
[2018-09-05] MEDS ORDERED: PACERONE200 MG PEG (13:26)
[2018-09-05] MEDS ORDERED: LOPRESSOR25 M1 PEG (13:26)
--- NOTE | 2018-09-05 15:17 | Surgery Progress Note ---
Surgery Progress Note Subjective Additional Comments still with leukocytosis. overall condition deteriorating. afebrile, HD stable. Objective Last 24 Hour Vital Signs Date Time Temp Pulse Resp B/P (MAP) Pulse Ox O2 Delivery O2 Flow Rate FiO2 09/05/18 12:00 98.1 72 16 118/66 (83) 99 09/05/18 10:10 70 09/05/18 10:10 70 124/82 09/05/18 09:00 Nasal Cannula 2.0 09/05/18 08:00 98.4 70 16 126/84 (98) 98 09/05/18 04:00 98.4 71 18 138/22 (60) 98 09/05/18 00:07 99.3 62 17 111/62 (78) 96 09/04/18 21:00 59 110/58 09/04/18 20:50 Nasal Cannula 2.0 28 09/04/18 20:50 99 Nasal Cannula 2.0 28 09/04/18 20:42 Nasal Cannula 2.0 09/04/18 20:00 99.1 59 18 110/58 (75) 96 09/04/18 16:00 97.9 56 18 107/59 (75) 100 I&O Intake and Output 09/04/18 09/05/18 19:00 07:00 Intake Total 540 ml 960 ml Output Total 2000 ml 650 ml Balance -1460 ml 310 ml Free Water 240 ml Tube Feeding 540 ml 720 ml Output Urine Total 1200 ml 650 ml Stool Total 800 ml # Voids 1 Dressing: saturated Wound: other Drains: other Cardiovascular: RSR Respiratory: decreased breath sounds Abdomen: soft, non-tender, present bowel sounds, other, non-distended Extremities: other Laboratory Tests Test 09/04/18 22:00 Urine Color Yellow Urine Appearance Slightly cloudy Urine pH 5 (4.5-8.0) Urine Specific [place] 1.015 (1.005-1.035) Urine Protein Negative (NEGATIVE) Urine Glucose (UA) Negative (NEGATIVE) Urine Ketones Negative (NEGATIVE) Urine Blood 3+ (NEGATIVE) H Urine Nitrite Negative (NEGATIVE) Urine Bilirubin Negative (NEGATIVE) Urine Urobilinogen Normal MG/DL (0.0-1.0) Urine Leukocyte Esterase 2+ (NEGATIVE) H Urine RBC 10-15 /HPF (0 - 0) H Urine WBC 20-30 /HPF (0 - 0) H Urine Squamous Epithelial Cells Occasional /LPF Urine Bacteria Moderate /HPF (NONE) H Urine Yeast Many /HPF (NONE) H Sodium Level 140 MMOL/L (136-145) Potassium Level 5.4 MMOL/L (3.5-5.1) H Chloride Level 109 MMOL/L (98-107) H Carbon Dioxide Level 30 MMOL/L (21-32) Anion Gap 1 mmol/L (5-15) L Blood Urea Nitrogen 9 mg/dL (7-18) Creatinine 0.4 MG/DL (0.55-1.30) L Estimat Glomerular Filtration Rate > 60 mL/min (>60) Glucose Level 156 MG/DL (74-106) H Calcium Level 7.5 MG/DL (8.5-10.1) L Total Bilirubin 0.2 MG/DL (0.2-1.0) Aspartate Amino Transf (AST/SGOT) 16 U/L (15-37) Alanine Aminotransferase (ALT/SGPT) 9 U/L (12-78) L Alkaline Phosphatase 108 U/L (46-116) Total Protein 5.0 G/DL (6.4-8.2) L Albumin 1.0 G/DL (3.4-5.0) L Globulin 4.0 g/dL Albumin/Globulin Ratio 0.2 (1.0-2.7) L Plan Problems: (1) Sepsis Assessment & Plan: IV abx trend labs will monitor wounds s/p wound cleaning/debridement s/p PEG C diff treatment per ID cont with IV Abx Micro noted path noted (2) Decubitus skin ulcer Assessment & Plan: Pt presented on admission with multiple full thickness pressure injuries. Full thickness pressure injury to L elbow.Base of wound wound with 25% fibrinous slough,75% pink granulation noted.(+) maceration along borders. erythema without elevation in skin temp periwound(L)1.5cm x (W)1.8cm x(D)0.3cm. Full thickness pressure injury R trochanter .Base of wound with pink granulation.Edges adherent to base of wound .No odor or exudate noted.Darker skin tone without induration periwound. (L)4.5cm x (W)6.3cm x (D) 3cm.Undermining 12-3 by 3cm @12o'clock. Full thickness pressure injury to R ischium .Wound is malodorous.90% soft necrosis,10% pink noted at base of wound ,(+) epibole along edges .Periwound darker in skin tone and is indurated.(L)8.4cm x (W)4.3cm (D)2.5cm .Tunneling at 1o'clock by 3.6cm ,tunneling @5o'clock by 6.3cm. Full thickness sacral pressure injury with 80% soft necrosis ,20% pink granulation .Wound is malodorous with small amt brown exudate (L)8.5cm x (W)5cm x (D)2.5cm ,undermining 8-5 by 4.7cm @1o'clock. wounds with gross drainage poor nutritional status. prognosis concerning follow up wounds eval with team performed and L elbow wound with 60% mixed yellow /pope slough with surrounding pink granulation (L)4.5cm x (W)2.7cm. Dark skin tone periwound. Minimal serous exudate without odor noted to drsg upon removal. Second wound proximally but in close proximity to L elbow granular with trace biofilm (L)2.3cm x (W)2.4cm.Edges adherent and flat .No odor or exudate noted. Full thickness pressure injury to R trochanter with pink granulation. Small area of bone visible at base of wound. Edges adherent and flat. No odor or exudate noted (L)3.5cm x (W)6cm x (D)3.1cm. Dark skin tone periwound. Full thickness pressure injury R ischium with tunneling at 6o'clock with 80% loose -Soft necrosis at base of wound with surrounding pink granulation along inner wall of wound.#2 small areas along borders with soft loosening necrosis. No odor noted .Periwound less indurated but with darker skin tone. (L)7cm x (W) 2.9 x(D)5cm ,tunneling at 6o'clock by 5cm. Full thickness sacral pressure injury with undermining, 75% mixed soft necrosis and slough, 25% pink granulation. Small amt serosanguineous exudate without odor noted .Edges are mostly adherent with scattered areas that are non- adherent with yellow slough. (L)10cm x (W)8.2cm x (D)2.3cm ,undermining 6-3 by 4.2cm @12o'clock. Resolving partial thickness wound L hip base of wound is moist -viable .Edges adherent to base of wound .Periwound without fluctuance or induration. (L)3.9cm x(W)3cm. L ischial partial thickness wound resolving.Base of wound is pink -moist .(+) maceration long borders. Periwound without erythema or induration (L)2cm x (W) 1.2cm. No odor or exudate noted. Patients wounds with dressing changes going well but continues to have large wounds that require significant care. Recently feeding tube placement and tolerating feeds with increased nutrition will hopefully be able to begin healing wounds Tx.Plan: Cleanse R trochanter with Dakin's 0.125% candelaria. Loosely pack with Dakin's soaked kerlix .Cover with Optifoam drsg TID and prn. Cleanse R Ischial wound with Dakin's 0.125% candelaria.Loosely pack with Dakin's soaked kerlix. Cavilon Skin Barrier periwound. Cover with Optifoam drsg TID and prn. Cleanse Sacral wound with dakin's 0.125% candelaria.Loosely pack with Dakin's soaked kerlix.Cavilon Skin Barrier periwound.Cover with Optifoam drsg TID and prn. Cleanse L elbow with Dakin's 0.125% candelaria. Apply Dakin's moist 2x2 gauze. Cover with Optifoam drsg TID and prn. Quartet Air fluidized mattress. Reposition L side to back at least every 2hours or as tolerated. Goyo Osuna Sep 05, 2018 15:17
--- NOTE | 2018-09-05 15:44 | Nephrology Progress Note ---
Assessment/Plan Problem List: (1) Hypokalemia Assessment: also Low Phos and Low Mag (2) HTN (hypertension) (3) Atrial fibrillation (4) Clostridium difficile colitis (5) Decubitus ulcer (6) Anemia Assessment Low Phos Low K Low Mag C deficil colitis Sepsis Decubiti Anemia CVA At fib Plan no labs today K , Mag , Phos supplement IV as needed until diarrhea subcides per orders add B6 Down on Dig dose Aldactone Monitor labs per consultants discussed with Dr Montesinos Subjective ROS Limited/Unobtainable: No Constitutional: Reports: malaise Objective Objective Last 24 Hour Vital Signs Date Time Temp Pulse Resp B/P (MAP) Pulse Ox O2 Delivery O2 Flow Rate FiO2 09/05/18 12:00 98.1 72 16 118/66 (83) 99 09/05/18 10:10 70 09/05/18 10:10 70 124/82 09/05/18 09:00 Nasal Cannula 2.0 09/05/18 08:00 98.4 70 16 126/84 (98) 98 09/05/18 04:00 98.4 71 18 138/22 (60) 98 09/05/18 00:07 99.3 62 17 111/62 (78) 96 09/04/18 21:00 59 110/58 09/04/18 20:50 Nasal Cannula 2.0 28 09/04/18 20:50 99 Nasal Cannula 2.0 28 09/04/18 20:42 Nasal Cannula 2.0 09/04/18 20:00 99.1 59 18 110/58 (75) 96 09/04/18 16:00 97.9 56 18 107/59 (75) 100 Intake and Output 09/04/18 09/05/18 19:00 07:00 Intake Total 540 ml 960 ml Output Total 2000 ml 650 ml Balance -1460 ml 310 ml Free Water 240 ml Tube Feeding 540 ml 720 ml Output Urine Total 1200 ml 650 ml Stool Total 800 ml # Voids 1 Laboratory Tests 09/04/18 22:00: Urine Color Yellow, Urine Appearance Slightly cloudy, Urine pH 5, Urine Specific [place] 1.015, Urine Protein Negative, Urine Glucose (UA) Negative, Urine Ketones Negative, Urine Blood 3+H, Urine Nitrite Negative, Urine Bilirubin Negative, Urine Urobilinogen Normal, Urine Leukocyte Esterase 2+H, Urine RBC 10-15H, Urine WBC 20-30H, Urine Squamous Epithelial Cells Occasional, Urine Bacteria ModerateH, Urine Yeast ManyH, Sodium Level 140, Potassium Level 5.4H, Chloride Level 109H, Carbon Dioxide Level 30, Anion Gap 1L, Blood Urea Nitrogen 9, Creatinine 0.4L, Estimat Glomerular Filtration Rate > 60, Glucose Level 156H, Calcium Level 7.5L, Total Bilirubin 0.2, Aspartate Amino Transf (AST /SGOT) 16, Alanine Aminotransferase (ALT/SGPT) 9L, Alkaline Phosphatase 108, Total Protein 5.0L, Albumin 1.0L, Globulin 4.0, Albumin/Globulin Ratio 0.2L Height (Feet): 6 Height (Inches): 0.40 Weight (Pounds): 164 General Appearance: no apparent distress, lethargic Cardiovascular: normal rate Respiratory/Chest: decreased breath sounds Abdomen: soft Objective no change Ruy Colvin MD Sep 05, 2018 15:44
--- NOTE | 2018-09-05 15:59 | Cardiac Electrophysiology PN ---
Assessment/Plan Assessment/Plan 1. Atrial fibrillation with rapid ventricular response. In SR on metoprolol 50 mg bid, digoxin 0.125, amiodarone 200 daily and Eliquis 2. Fever and sepsis with Positive blood culture. IV antibiotics per Dr. Parker. 3. Dementia and psychosis. 4. 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 5. Sacral decubitus.S/P debridement 6. C. Diff colitis.On Flagyl 7. Hypotension. Resolved. 8. Hypokalemia, on Aldactone 25 bid 9. Anemia, S/P PRBC. 10. S/P PEG DW RN Subjective Subjective In isolation in NAD. Objective Last 24 Hour Vital Signs Date Time Temp Pulse Resp B/P (MAP) Pulse Ox O2 Delivery O2 Flow Rate FiO2 09/05/18 12:00 98.1 72 16 118/66 (83) 99 09/05/18 10:10 70 09/05/18 10:10 70 124/82 09/05/18 09:00 Nasal Cannula 2.0 09/05/18 08:00 98.4 70 16 126/84 (98) 98 09/05/18 04:00 98.4 71 18 138/22 (60) 98 09/05/18 00:07 99.3 62 17 111/62 (78) 96 09/04/18 21:00 59 110/58 09/04/18 20:50 Nasal Cannula 2.0 28 09/04/18 20:50 99 Nasal Cannula 2.0 28 09/04/18 20:42 Nasal Cannula 2.0 09/04/18 20:00 99.1 59 18 110/58 (75) 96 09/04/18 16:00 97.9 56 18 107/59 (75) 100 Intake and Output 09/04/18 09/05/18 19:00 07:00 Intake Total 540 ml 960 ml Output Total 2000 ml 650 ml Balance -1460 ml 310 ml Free Water 240 ml Tube Feeding 540 ml 720 ml Output Urine Total 1200 ml 650 ml Stool Total 800 ml # Voids 1 Laboratory Tests Test 09/04/18 22:00 Urine Color Yellow Urine Appearance Slightly cloudy Urine pH 5 (4.5-8.0) Urine Specific [place] 1.015 (1.005-1.035) Urine Protein Negative (NEGATIVE) Urine Glucose (UA) Negative (NEGATIVE) Urine Ketones Negative (NEGATIVE) Urine Blood 3+ (NEGATIVE) H Urine Nitrite Negative (NEGATIVE) Urine Bilirubin Negative (NEGATIVE) Urine Urobilinogen Normal MG/DL (0.0-1.0) Urine Leukocyte Esterase 2+ (NEGATIVE) H Urine RBC 10-15 /HPF (0 - 0) H Urine WBC 20-30 /HPF (0 - 0) H Urine Squamous Epithelial Cells Occasional /LPF Urine Bacteria Moderate /HPF (NONE) H Urine Yeast Many /HPF (NONE) H Sodium Level 140 MMOL/L (136-145) Potassium Level 5.4 MMOL/L (3.5-5.1) H Chloride Level 109 MMOL/L (98-107) H Carbon Dioxide Level 30 MMOL/L (21-32) Anion Gap 1 mmol/L (5-15) L Blood Urea Nitrogen 9 mg/dL (7-18) Creatinine 0.4 MG/DL (0.55-1.30) L Estimat Glomerular Filtration Rate > 60 mL/min (>60) Glucose Level 156 MG/DL (74-106) H Calcium Level 7.5 MG/DL (8.5-10.1) L Total Bilirubin 0.2 MG/DL (0.2-1.0) Aspartate Amino Transf (AST/SGOT) 16 U/L (15-37) Alanine Aminotransferase (ALT/SGPT) 9 U/L (12-78) L Alkaline Phosphatase 108 U/L (46-116) Total Protein 5.0 G/DL (6.4-8.2) L Albumin 1.0 G/DL (3.4-5.0) L Globulin 4.0 g/dL Albumin/Globulin Ratio 0.2 (1.0-2.7) L Objective HEAD AND NECK: No JVD. LUNGS: Have coarse rhonchi. CARDIOVASCULAR: Irregular S1 and S2 with no gallop or murmur. ABDOMEN: Soft.PEG in place EXTREMITIES: Bilateral above-knee amputation. Amandeep Arora MD Sep 05, 2018 15:59
[2018-09-05 16:00] VITALS: BP 129/80
[2018-09-05 20:00] VITALS: BP 138/78
[2018-09-05] MEDS: Eliquis 2.5mg tablet GT SCH (20:28)
[2018-09-05] MEDS: Dyna-Hex 2% Top Sol 2oz TOPIC SCH (20:28)
--- NOTE | 2018-09-05 23:42 | Internal Med Progress Note ---
Subjective Physician Name Pedro Caban Attending Physician Pedro Caban MD Current Medications Medications (Trade) Dose Ordered Sig/Erlin Route PRN Reason Start Time Stop Time Status Last Admin Dose Admin Acetaminophen (Tylenol) 650 mg Q4H PRN PEG Mild Pain (Pain Scale 1-3) 08/31/18 02:02 09/13/18 02:01 Acetaminophen (Tylenol) 650 mg Q6H PRN PEG Temp > 100.5 08/31/18 02:02 09/13/18 02:01 Amiodarone HCl (Cordarone) 200 mg DAILY PEG 08/31/18 09:00 09/19/18 08:59 09/05/18 10:11 Apixaban (Eliquis) 2.5 mg Q12HR GT 09/05/18 21:00 09/29/18 20:59 09/05/18 20:28 Chlorhexidine Gluconate (Yari-Hex 2%) 1 applic DAILY@1999 TOPIC 08/31/18 20:00 09/21/18 19:59 09/05/18 20:28 Cholestyramine Resin (Questran) 4 gm Q12H GT 09/06/18 03:00 10/06/18 02:59 Clonidine HCl (Catapres Tab) 0.1 mg Q4H PRN GT For High Blood Pressure 08/31/18 15:44 09/21/18 15:43 Digoxin (Lanoxin) 0.125 mg QOD PEG 09/05/18 09:00 09/19/18 08:59 09/05/18 10:10 Famotidine (Pepcid) 20 mg BID GT 09/06/18 09:00 10/02/18 17:59 Fidaxomicin (Dificid) 200 mg EVERY 12 HOURS ORAL 09/05/18 21:00 09/07/18 20:59 09/05/18 20:28 Isoniazid (Inh) 300 mg DAILY GT 08/31/18 09:00 09/13/18 08:59 09/05/18 10:11 Lactobacillus Acidophilus (Culturelle) 1 tab THREE TIMES A DAY GT 08/31/18 09:00 09/18/18 08:59 09/05/18 17:31 Loperamide HCl (Imodium) 2 mg EVERY 8 HOURS GT 09/05/18 22:00 09/29/18 13:59 09/05/18 22:12 Metoprolol Tartrate (Lopressor) 25 mg Q12HR PEG 08/31/18 09:00 09/22/18 20:59 09/05/18 20:28 Pyridoxine HCl (Vitamin B6) 50 mg DAILY GT 09/03/18 17:00 10/03/18 16:59 09/05/18 10:10 Sodium Hypochlorite (Dakin's Quarter Strength) 1 applic DAILY TOPIC 08/31/18 09:00 09/13/18 15:59 09/05/18 10:11 Allergies: Coded Allergies: MILK (Verified Allergy, Unknown, 02/02/18) Subjective more responsive, open eyes, Talking now, rectal tube, WBC: 14.9. Objective Last Vital Signs Date Time Temp Pulse Resp B/P (MAP) Pulse Ox O2 Delivery O2 Flow Rate FiO2 09/05/18 21:00 Nasal Cannula 2.0 09/05/18 20:28 70 138/78 09/05/18 20:00 98.9 20 100 09/04/18 20:50 28 Laboratory Tests Test 09/05/18 16:15 C-Reactive Protein, Quantitative 5.2 mg/dL (0.00-0.90) H Intake and Output 09/04/18 09/05/18 19:00 07:00 Intake Total 540 ml 960 ml Output Total 2000 ml 650 ml Balance -1460 ml 310 ml Free Water 240 ml Tube Feeding 540 ml 720 ml Output Urine Total 1200 ml 650 ml Stool Total 800 ml # Voids 1 Objective General: No acute distress, less responsive, open eyes only, not verbal HEENT: NCAT, sclera anicteric, PERRL, EOMI Neck: Supple, no significant jugular venous distention, Lungs: Fair inspiratory effort,decrease bilateral air entry at bases.l no Wheeze or Rales. Heart: Regular rate and rhythm, normal S1/S2, no murmur Abdomen: soft, generalized tenderness, less distended. Normoactive bowel sounds , Rectal Tube, PEG site intact. Extremities: No Cyanosis , clubbing or edema. bilateral AKA, less stump edema, RUE Piccline. Neuro: A&O x 1, Able to move upper extremities. SKIN: Multiple Decubi ulceration Assessment/Plan Assessment/Plan (1) Sepsis / bacteremia. 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 F/U with ID recommendations: Continue PO Fidaxomicin #5/10 given ongoing diarrhea despite oral vancomycin Pedro Caban MD Sep 05, 2018 23:42
[2018-09-06] VITALS: BP 123/69
[2018-09-06] MEDS: Cholestyramine 4gm Pkt GT SCH ×2 (03:38→17:54)
[2018-09-06 04:00] VITALS: BP 102/52
--- NOTE | 2018-09-06 05:54 | General Progress Note ---
Assessment/Plan Assessment/Plan Assessment - C Difficile colitis - failing vanco and fidaxomicin - Doubt diarrhea due to TF but will hold TF in am x 24 hrs for a trial basis - abnormal lytes - s/p PEG - s/p b/l AKA - anemia - duodenal ulcers - bacteremia, leukocytosis - Pyuria Recommendations - Dificid - probiotics - Will need fecal microbial transplant as last resort - Hold TF for 24 hours on trial basis - Questran - wean down H2B - elevate HOB - replace electrolytes - transfuse PRN - TF - anticoagulation - Poor Px Subjective Allergies: Coded Allergies: MILK (Verified Allergy, Unknown, 02/02/18) Subjective above noted still with diarrhea Tolerating TF (Delayed entry note for 09/05 visit) Objective Last 24 Hour Vital Signs Date Time Temp Pulse Resp B/P (MAP) Pulse Ox O2 Delivery O2 Flow Rate FiO2 09/06/18 04:00 97.5 67 18 102/52 (69) 97 09/06/18 00:00 99.0 66 20 123/69 (87) 99 09/05/18 21:00 Nasal Cannula 2.0 09/05/18 20:28 70 138/78 09/05/18 20:00 98.9 70 20 138/78 (98) 100 09/05/18 16:00 97.9 72 17 129/80 (96) 99 09/05/18 12:00 98.1 72 16 118/66 (83) 99 09/05/18 10:10 70 09/05/18 10:10 70 124/82 09/05/18 09:00 Nasal Cannula 2.0 09/05/18 08:00 98.4 70 16 126/84 (98) 98 Intake and Output 09/05/18 09/06/18 19:00 07:00 Intake Total 810 ml 350 ml Output Total 700 ml Balance 110 ml 350 ml Free Water 90 ml 50 ml Tube Feeding 720 ml 300 ml Output Urine Total 700 ml Laboratory Tests 09/05/18 16:15: C-Reactive Protein, Quantitative 5.2H Height (Feet): 6 Height (Inches): 0.40 Weight (Pounds): 164 Objective Elderly AA man NCAT supple CTA RRR Abd soft (+) Gina Graham MD Sep 06, 2018 05:54
[2018-09-06 06:55] LABS: HEMATOCRIT 25.2 % (42.0-52.0); HEMOGLOBIN 7.9 G/DL (14.2-18.0); MEAN CORPUSCULAR VOLUME 98 FL (80-99); PLATELET COUNT 176 K/UL (150-450); RED BLOOD COUNT 2.57 M/UL (4.70-6.10); RED CELL DISTRIBUTION WIDTH 15.6 % (11.6-14.8); WHITE BLOOD COUNT 14.1 K/UL (4.8-10.8)
[2018-09-06 07:37] LABS: PHOSPHORUS 2.8 MG/DL (2.5-4.9)
[2018-09-06 07:56] LABS: ALANINE AMINOTRANSFERASE 10 U/L (12-78); ALBUMIN/GLOBULIN RATIO 0.3 (1.0-2.7); ALKALINE PHOSPHATASE 101 U/L (46-116); ANION GAP 4 mmol/L (5-15); ASPARTATE AMINO TRANSFERASE 20 U/L (15-37); BILIRUBIN,TOTAL 0.2 MG/DL (0.2-1.0); BLOOD UREA NITROGEN 8 mg/dL (7-18); CALCIUM 7.5 MG/DL (8.5-10.1); CARBON DIOXIDE 30 MMOL/L (21-32); CHLORIDE 104 MMOL/L (98-107); CREATININE 0.3 MG/DL (0.55-1.30); POTASSIUM 5.5 MMOL/L (3.5-5.1); SODIUM 137 MMOL/L (136-145)
[2018-09-06 08:00] VITALS: BP 131/70
[2018-09-06] MEDS ORDERED: Metoprolol Tartrate 12.5mg TAB ONE (08:35)
[2018-09-06] MEDS: Amiodarone 200mg tab PEG SCH (08:42)
[2018-09-06] MEDS: Pyridoxine 50mg tab GT SCH (08:42)
[2018-09-06] MEDS: Eliquis 2.5mg tablet GT SCH ×2 (08:42→22:05)
[2018-09-06] MEDS: Lactobacillus-GG tablet GT SCH ×3 (08:43→17:54)
[2018-09-06] MEDS: Metoprolol 25mg tab PEG SCH ×2 (08:43→22:05)
[2018-09-06] MEDS: Isoniazid 300mg tab GT SCH (08:43)
[2018-09-06] MEDS: Dakin's 0.125% Soln (Quarter Strength) 16oz TOPIC SCH (09:00)
[2018-09-06 12:00] VITALS: BP 129/78
--- NOTE | 2018-09-06 12:15 | Nephrology Progress Note ---
Assessment/Plan Problem List: (1) Hypokalemia Assessment: also Low Phos and Low Mag (2) HTN (hypertension) (3) Atrial fibrillation (4) Clostridium difficile colitis (5) Decubitus ulcer (6) Anemia Assessment Low Phos Low K Low Mag C deficil colitis Sepsis Decubiti Anemia CVA At fib Plan K , Mag , Phos supplement IV as needed until diarrhea subcides per orders add B6 Down on Dig dose Aldactone Monitor labs per consultants discussed with Dr Montesinos Subjective ROS Limited/Unobtainable: No Constitutional: Reports: malaise, weakness Objective Objective Last 24 Hour Vital Signs Date Time Temp Pulse Resp B/P (MAP) Pulse Ox O2 Delivery O2 Flow Rate FiO2 09/06/18 09:00 Nasal Cannula 2.0 09/06/18 08:43 66 131/70 09/06/18 08:00 98.6 66 20 131/70 (90) 93 09/06/18 04:00 97.5 67 18 102/52 (69) 97 09/06/18 00:00 99.0 66 20 123/69 (87) 99 09/05/18 21:00 Nasal Cannula 2.0 09/05/18 20:28 70 138/78 09/05/18 20:00 98.9 70 20 138/78 (98) 100 09/05/18 16:00 97.9 72 17 129/80 (96) 99 Intake and Output 09/05/18 09/06/18 18:59 06:59 Intake Total 810 ml 770 ml Output Total 700 ml 500 ml Balance 110 ml 270 ml Free Water 90 ml 50 ml Tube Feeding 720 ml 720 ml Output Urine Total 700 ml 500 ml Laboratory Tests 09/05/18 16:15: C-Reactive Protein, Quantitative 5.2H 09/06/18 05:30: White Blood Count 14.1H, Red Blood Count 2.57L, Hemoglobin 7.9L, Hematocrit 25.2L, Mean Corpuscular Volume 98, Mean Corpuscular Hemoglobin 30.6, Mean Corpuscular Hemoglobin Concent 31.2L, Red Cell Distribution Width 15.6H, Platelet Count 176, Mean Platelet Volume 5.4L, Neutrophils (%) (Auto) , Lymphocytes (%) (Auto) , Monocytes (%) (Auto) , Eosinophils (%) (Auto) , Basophils (%) (Auto) , Differential Total Cells Counted 100, Neutrophils % ( Manual) 78H, Lymphocytes % (Manual) 11L, Monocytes % (Manual) 11H, Eosinophils % (Manual) 0, Basophils % (Manual) 0, Band Neutrophils 0, Platelet Estimate Adequate, Platelet Morphology Normal, Hypochromasia 1+, Anisocytosis 1+, Target Cells 2+, Sodium Level 137, Potassium Level 5.5H, Chloride Level 104, Carbon Dioxide Level 30, Anion Gap 4L, Blood Urea Nitrogen 8, Creatinine 0.3L, Estimat Glomerular Filtration Rate > 60, Glucose Level 121H, Calcium Level 7.5L, Phosphorus Level 2.8, Magnesium Level 1.6L, Total Bilirubin 0.2, Aspartate Amino Transf (AST/SGOT) 20, Alanine Aminotransferase (ALT/SGPT) 10L, Alkaline Phosphatase 101, Pro-B-Type Natriuretic Peptide 3908H, Total Protein 4.9L, Albumin 1.0L, Globulin 3.9, Albumin/Globulin Ratio 0.3L Height (Feet): 6 Height (Inches): 0.40 Weight (Pounds): 168 General Appearance: no apparent distress Cardiovascular: normal rate Respiratory/Chest: decreased breath sounds Abdomen: distended Objective no change Ruy Colvin MD Sep 06, 2018 12:15
--- NOTE | 2018-09-06 13:06 | Pulmonology Progress Note ---
Assessment/Plan Problems: (1) Clostridium difficile colitis (2) Acute metabolic encephalopathy (3) Sepsis (4) Decubitus skin ulcer (5) UTI (urinary tract infection) (6) Anemia (7) CVA (cerebral vascular accident) Assessment/Plan mental status better afebrile check electrolytes continue current meds. dvt prophylaxis. got his PEG K, phos, mg supplement med/surg dc planning Subjective ROS Limited/Unobtainable: No Constitutional: Reports: no symptoms HEENT: Repors: no symptoms Allergies: Coded Allergies: MILK (Verified Allergy, Unknown, 02/02/18) Objective Last 24 Hour Vital Signs Date Time Temp Pulse Resp B/P (MAP) Pulse Ox O2 Delivery O2 Flow Rate FiO2 09/06/18 09:00 Nasal Cannula 2.0 09/06/18 08:43 66 131/70 09/06/18 08:00 98.6 66 20 131/70 (90) 93 09/06/18 04:00 97.5 67 18 102/52 (69) 97 09/06/18 00:00 99.0 66 20 123/69 (87) 99 09/05/18 21:00 Nasal Cannula 2.0 09/05/18 20:28 70 138/78 09/05/18 20:00 98.9 70 20 138/78 (98) 100 09/05/18 16:00 97.9 72 17 129/80 (96) 99 Intake and Output 09/05/18 09/06/18 18:59 06:59 Intake Total 810 ml 770 ml Output Total 700 ml 500 ml Balance 110 ml 270 ml Free Water 90 ml 50 ml Tube Feeding 720 ml 720 ml Output Urine Total 700 ml 500 ml Objective General Appearance: WD/WN HEENT: normocephalic, atraumatic Respiratory/Chest: chest wall non-tender, lungs clear Cardiovascular: normal peripheral pulses, normal rate Abdomen: normal bowel sounds, soft, non tender Extremities: no cyanosis Skin: extensive decubiti Microbiology Date/Time Source Procedure Growth Status 09/04/18 22:00 Urine,Clean Catch Urine Culture - Preliminary Gram Negative Bacillus 1 Resulted Laboratory Tests 09/05/18 16:15: C-Reactive Protein, Quantitative 5.2H 09/06/18 05:30: White Blood Count 14.1H, Red Blood Count 2.57L, Hemoglobin 7.9L, Hematocrit 25.2L, Mean Corpuscular Volume 98, Mean Corpuscular Hemoglobin 30.6, Mean Corpuscular Hemoglobin Concent 31.2L, Red Cell Distribution Width 15.6H, Platelet Count 176, Mean Platelet Volume 5.4L, Neutrophils (%) (Auto) , Lymphocytes (%) (Auto) , Monocytes (%) (Auto) , Eosinophils (%) (Auto) , Basophils (%) (Auto) , Differential Total Cells Counted 100, Neutrophils % ( Manual) 78H, Lymphocytes % (Manual) 11L, Monocytes % (Manual) 11H, Eosinophils % (Manual) 0, Basophils % (Manual) 0, Band Neutrophils 0, Platelet Estimate Adequate, Platelet Morphology Normal, Hypochromasia 1+, Anisocytosis 1+, Target Cells 2+, Sodium Level 137, Potassium Level 5.5H, Chloride Level 104, Carbon Dioxide Level 30, Anion Gap 4L, Blood Urea Nitrogen 8, Creatinine 0.3L, Estimat Glomerular Filtration Rate > 60, Glucose Level 121H, Calcium Level 7.5L, Phosphorus Level 2.8, Magnesium Level 1.6L, Total Bilirubin 0.2, Aspartate Amino Transf (AST/SGOT) 20, Alanine Aminotransferase (ALT/SGPT) 10L, Alkaline Phosphatase 101, Pro-B-Type Natriuretic Peptide 3908H, Total Protein 4.9L, Albumin 1.0L, Globulin 3.9, Albumin/Globulin Ratio 0.3L Current Medications Medications (Trade) Dose Ordered Sig/Erlin Route PRN Reason Start Time Stop Time Status Last Admin Dose Admin Acetaminophen (Tylenol) 650 mg Q4H PRN PEG Mild Pain (Pain Scale 1-3) 08/31/18 02:02 09/13/18 02:01 Acetaminophen (Tylenol) 650 mg Q6H PRN PEG Temp > 100.5 08/31/18 02:02 09/13/18 02:01 Amiodarone HCl (Cordarone) 200 mg DAILY PEG 08/31/18 09:00 09/19/18 08:59 09/06/18 08:42 Apixaban (Eliquis) 2.5 mg Q12HR GT 09/05/18 21:00 09/29/18 20:59 09/06/18 08:42 Chlorhexidine Gluconate (Yari-Hex 2%) 1 applic DAILY@1999 TOPIC 08/31/18 20:00 4//19 19:59 09/05/18 20:28 Cholestyramine Resin (Questran) 4 gm Q12H GT 09/06/18 03:00 10/06/18 02:59 09/06/18 03:38 Clonidine HCl (Catapres Tab) 0.1 mg Q4H PRN GT For High Blood Pressure 08/31/18 15:44 09/21/18 15:43 Digoxin (Lanoxin) 0.125 mg QOD PEG 09/05/18 09:00 09/19/18 08:59 09/05/18 10:10 Famotidine (Pepcid) 20 mg BEDTIME GT 09/06/18 21:00 10/06/18 20:59 Fidaxomicin (Dificid) 200 mg EVERY 12 HOURS ORAL 09/05/18 21:00 09/07/18 20:59 09/06/18 10:38 Isoniazid (Inh) 300 mg DAILY GT 08/31/18 09:00 09/13/18 08:59 09/06/18 08:43 Lactobacillus Acidophilus (Culturelle) 1 tab THREE TIMES A DAY GT 08/31/18 09:00 09/18/18 08:59 09/06/18 13:04 Loperamide HCl (Imodium) 2 mg EVERY 8 HOURS GT 09/05/18 22:00 09/29/18 13:59 09/06/18 13:04 Metoprolol Tartrate (Lopressor) 25 mg Q12HR PEG 08/31/18 09:00 09/22/18 20:59 09/06/18 08:43 Pyridoxine HCl (Vitamin B6) 50 mg DAILY GT 09/03/18 17:00 10/03/18 16:59 09/06/18 08:42 Sodium Hypochlorite (Dakin's Quarter Strength) 1 applic DAILY TOPIC 08/31/18 09:00 09/13/18 15:59 09/06/18 09:00 Minerva Montesinos MD Sep 06, 2018 13:06
--- NOTE | 2018-09-06 14:36 | Surgery Progress Note ---
Surgery Progress Note Subjective Additional Comments no acute events. comfortable. leukocytosis. on multiple abx treatments Objective Last 24 Hour Vital Signs Date Time Temp Pulse Resp B/P (MAP) Pulse Ox O2 Delivery O2 Flow Rate FiO2 09/06/18 12:00 98.1 63 18 129/78 (95) 96 09/06/18 09:00 Nasal Cannula 2.0 09/06/18 08:43 66 131/70 09/06/18 08:00 98.6 66 20 131/70 (90) 93 09/06/18 04:00 97.5 67 18 102/52 (69) 97 09/06/18 00:00 99.0 66 20 123/69 (87) 99 09/05/18 21:00 Nasal Cannula 2.0 09/05/18 20:28 70 138/78 09/05/18 20:00 98.9 70 20 138/78 (98) 100 09/05/18 16:00 97.9 72 17 129/80 (96) 99 I&O Intake and Output 09/05/18 09/06/18 18:59 06:59 Intake Total 810 ml 770 ml Output Total 700 ml 500 ml Balance 110 ml 270 ml Free Water 90 ml 50 ml Tube Feeding 720 ml 720 ml Output Urine Total 700 ml 500 ml Dressing: other Wound: other Drains: other Cardiovascular: RSR Respiratory: decreased breath sounds Abdomen: soft, non-tender, non-distended Extremities: no cyanosis, other Laboratory Tests Test 09/05/18 16:15 09/06/18 05:30 C-Reactive Protein, Quantitative 5.2 mg/dL (0.00-0.90) H White Blood Count 14.1 K/UL (4.8-10.8) H Red Blood Count 2.57 M/UL (4.70-6.10) L Hemoglobin 7.9 G/DL (14.2-18.0) L Hematocrit 25.2 % (42.0-52.0) L Mean Corpuscular Volume 98 FL (80-99) Mean Corpuscular Hemoglobin 30.6 PG (27.0-31.0) Mean Corpuscular Hemoglobin Concent 31.2 G/DL (32.0-36.0) L Red Cell Distribution Width 15.6 % (11.6-14.8) H Platelet Count 176 K/UL (150-450) Mean Platelet Volume 5.4 FL (6.5-10.1) L Neutrophils (%) (Auto) % (45.0-75.0) Lymphocytes (%) (Auto) % (20.0-45.0) Monocytes (%) (Auto) % (1.0-10.0) Eosinophils (%) (Auto) % (0.0-3.0) Basophils (%) (Auto) % (0.0-2.0) Differential Total Cells Counted 100 Neutrophils % (Manual) 78 % (45-75) H Lymphocytes % (Manual) 11 % (20-45) L Monocytes % (Manual) 11 % (1-10) H Eosinophils % (Manual) 0 % (0-3) Basophils % (Manual) 0 % (0-2) Band Neutrophils 0 % (0-8) Platelet Estimate Adequate Platelet Morphology Normal Hypochromasia 1+ Anisocytosis 1+ Target Cells 2+ Sodium Level 137 MMOL/L (136-145) Potassium Level 5.5 MMOL/L (3.5-5.1) H Chloride Level 104 MMOL/L (98-107) Carbon Dioxide Level 30 MMOL/L (21-32) Anion Gap 4 mmol/L (5-15) L Blood Urea Nitrogen 8 mg/dL (7-18) Creatinine 0.3 MG/DL (0.55-1.30) L Estimat Glomerular Filtration Rate > 60 mL/min (>60) Glucose Level 121 MG/DL (74-106) H Calcium Level 7.5 MG/DL (8.5-10.1) L Phosphorus Level 2.8 MG/DL (2.5-4.9) Magnesium Level 1.6 MG/DL (1.8-2.4) L Total Bilirubin 0.2 MG/DL (0.2-1.0) Aspartate Amino Transf (AST/SGOT) 20 U/L (15-37) Alanine Aminotransferase (ALT/SGPT) 10 U/L (12-78) L Alkaline Phosphatase 101 U/L (46-116) Pro-B-Type Natriuretic Peptide 3908 pg/mL (0-125) H Total Protein 4.9 G/DL (6.4-8.2) L Albumin 1.0 G/DL (3.4-5.0) L Globulin 3.9 g/dL Albumin/Globulin Ratio 0.3 (1.0-2.7) L Plan Problems: (1) Sepsis Assessment & Plan: IV abx trend labs will monitor wounds s/p wound cleaning/debridement s/p PEG C diff treatment per ID cont with IV Abx Micro noted path noted failing abx tx for c diff. concerning. (2) Decubitus skin ulcer Assessment & Plan: Pt presented on admission with multiple full thickness pressure injuries. Full thickness pressure injury to L elbow.Base of wound wound with 25% fibrinous slough,75% pink granulation noted.(+) maceration along borders. erythema without elevation in skin temp periwound(L)1.5cm x (W)1.8cm x(D)0.3cm. Full thickness pressure injury R trochanter .Base of wound with pink granulation.Edges adherent to base of wound .No odor or exudate noted.Darker skin tone without induration periwound. (L)4.5cm x (W)6.3cm x (D) 3cm.Undermining 12-3 by 3cm @12o'clock. Full thickness pressure injury to R ischium .Wound is malodorous.90% soft necrosis,10% pink noted at base of wound ,(+) epibole along edges .Periwound darker in skin tone and is indurated.(L)8.4cm x (W)4.3cm (D)2.5cm .Tunneling at 1o'clock by 3.6cm ,tunneling @5o'clock by 6.3cm. Full thickness sacral pressure injury with 80% soft necrosis ,20% pink granulation .Wound is malodorous with small amt brown exudate (L)8.5cm x (W)5cm x (D)2.5cm ,undermining 8-5 by 4.7cm @1o'clock. wounds with gross drainage poor nutritional status. prognosis concerning follow up wounds eval with team performed and L elbow wound with 60% mixed yellow /pope slough with surrounding pink granulation (L)4.5cm x (W)2.7cm. Dark skin tone periwound. Minimal serous exudate without odor noted to drsg upon removal. Second wound proximally but in close proximity to L elbow granular with trace biofilm (L)2.3cm x (W)2.4cm.Edges adherent and flat .No odor or exudate noted. Full thickness pressure injury to R trochanter with pink granulation. Small area of bone visible at base of wound. Edges adherent and flat. No odor or exudate noted (L)3.5cm x (W)6cm x (D)3.1cm. Dark skin tone periwound. Full thickness pressure injury R ischium with tunneling at 6o'clock with 80% loose -Soft necrosis at base of wound with surrounding pink granulation along inner wall of wound.#2 small areas along borders with soft loosening necrosis. No odor noted .Periwound less indurated but with darker skin tone. (L)7cm x (W) 2.9 x(D)5cm ,tunneling at 6o'clock by 5cm. Full thickness sacral pressure injury with undermining, 75% mixed soft necrosis and slough, 25% pink granulation. Small amt serosanguineous exudate without odor noted .Edges are mostly adherent with scattered areas that are non- adherent with yellow slough. (L)10cm x (W)8.2cm x (D)2.3cm ,undermining 6-3 by 4.2cm @12o'clock. Resolving partial thickness wound L hip base of wound is moist -viable .Edges adherent to base of wound .Periwound without fluctuance or induration. (L)3.9cm x(W)3cm. L ischial partial thickness wound resolving.Base of wound is pink -moist .(+) maceration long borders. Periwound without erythema or induration (L)2cm x (W) 1.2cm. No odor or exudate noted. Patients wounds with dressing changes going well but continues to have large wounds that require significant care. Recently feeding tube placement and tolerating feeds with increased nutrition will hopefully be able to begin healing wounds Tx.Plan: Cleanse R trochanter with Dakin's 0.125% candelaria. Loosely pack with Dakin's soaked kerlix .Cover with Optifoam drsg TID and prn. Cleanse R Ischial wound with Dakin's 0.125% candelaria.Loosely pack with Dakin's soaked kerlix. Cavilon Skin Barrier periwound. Cover with Optifoam drsg TID and prn. Cleanse Sacral wound with dakin's 0.125% candelaria.Loosely pack with Dakin's soaked kerlix.Cavilon Skin Barrier periwound.Cover with Optifoam drsg TID and prn. Cleanse L elbow with Dakin's 0.125% candelaria. Apply Dakin's moist 2x2 gauze. Cover with Optifoam drsg TID and prn. Quartet Air fluidized mattress. Reposition L side to back at least every 2hours or as tolerated. Goyo Osuna Sep 06, 2018 14:36
--- NOTE | 2018-09-06 15:29 | Infectious Diseases Prog Note ---
Assessment/Plan Assessment/Plan Sepsis-2ry to bacteremia (likley from GI translocation ) -CT abd/p" Colonic mural thickening consistent with some form of colitis. No pneumatosis or extraluminal air. C Diff , ongoing diarrhea -Cdif toxin a/b + -Bcx 08/21 GNR, 08/21 ESBL Proteus mirabilis (S Ertapenem, Zosyn), 08/21 Group C strep ; 08/15 Bcx 07/24 Prevotella L . (R Clinda, Unasyn; S flagyl) ;08/17 Bcx 07/24 EUBACTERIUM LENTUM 08/21 Bcx Neg -u/a no pyuria -CXR: Suspect a small left pleural effusion. Mild basal atelectasis -influenza sc neg Fever, SP Leukocytosis , mild recurrent -09/04 CXR: New/increased bilateral interstitial edema/ Right basilar hazy opacity, new, may reflect a pleural effusion versus hazy infiltrate u/a wbc 20-30; ucx 100k GNR- ?contaminant vs real -08/28 CXR: There is decreased consolidation at the right lung base. There is some residual perihilar atelectasis. Hx of lung cavitary lesion/ PNA- suspect likely to aspiration; lower suspicion for TB and/or fungal etiologies -06/08 CT chest: * Interval resolution of the cavitary component associated with the previously described anterior right upper lobe opacity. It is slightly decreased in size and more nodular in appearance on today's exam. Additional patchy opacities in the posterior right upper lobe are also slightly decreased in size and appear more nodular (previously were groundglass). Findings likely related to evolving infectious or inflammatory lesions however continued follow-up is recommended to assure resolution/exclude the possibility of neoplastic etiologies. -CT c/a/p: 10 mm opacity in the peripheral anterolateral right upper lobe with small central cavitation. Patchy groundglass opacity in the posterior right upper lobe. Suspect that these represent inflammatory/infectious lesions, but neoplastic etiology of either is certainly possible. Large left and moderate right pleural effusions. Resultant compressive atelectasis of portions of the lower lobes. 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 Hypertension. Multiple decubiti ulcers (elbow, sacral) -not infected Bipolar disorder. Coronary artery disease. VRE and MRSA colonized Plan: -Continue PO Fidaxomicin #/ given ongoing diarrhea despite oral vancomycin -agree with addition of cholestyramine -if diarrhea not improving, may need fecal transplant -Will no treat urine pathogen unless worsenign WBC, fever, and/or HD instability given severe and difficult to treat Cdiff (will limit antibiotics) -Cont INH for latent TB -08/31 SP PO Vancomycin #17 -08/29 SP Meropenem #13 -08/26 SP Flagyl #5 -08/17 SP Zosyn #3, Daptomycin # -08/15 SP Tamiflu #2, Ceftriaxone # -08/14 SP Cefepime and LEvaquin x1 -Monitor CBC/CMP, temperatures -wound care -aspiration precautions -Sx f/u -f/u cx -sp cx Subjective Allergies: Coded Allergies: MILK (Verified Allergy, Unknown, 02/02/18) Subjective afebrile leukocytosis, increased to 14 stool now soft after starting questran Objective Vital Signs Last 24 Hour Vital Signs Date Time Temp Pulse Resp B/P (MAP) Pulse Ox O2 Delivery O2 Flow Rate FiO2 09/06/18 12:00 98.1 63 18 129/78 (95) 96 09/06/18 09:00 Nasal Cannula 2.0 09/06/18 08:43 66 131/70 09/06/18 08:00 98.6 66 20 131/70 (90) 93 09/06/18 04:00 97.5 67 18 102/52 (69) 97 09/06/18 00:00 99.0 66 20 123/69 (87) 99 09/05/18 21:00 Nasal Cannula 2.0 09/05/18 20:28 70 138/78 09/05/18 20:00 98.9 70 20 138/78 (98) 100 09/05/18 16:00 97.9 72 17 129/80 (96) 99 Height (Feet): 6 Height (Inches): 0.40 Weight (Pounds): 168 Objective General appearance: alert, cooperative, no distress, appears stated age Head: Normocephalic, without obvious abnormality, atraumatic Eyes: conjunctivae/corneas clear. PERRL, EOM's intact. Fundi benign Throat: Lips, mucosa, and tongue normal. Teeth and gums normal Neck: supple, symmetrical, trachea midline, no adenopathy, thyroid: not enlarged, symmetric, no tenderness/mass/nodules, no carotid bruit and no JVD Lungs: clear to auscultation bilaterally Heart: regular rate and rhythm, S1, S2 normal, no murmur, click, rub or gallop Abdomen: soft, non-tender. Bowel sounds normal. No masses, no organomegaly Extremities: extremities normal, atraumatic, no cyanosis or edema/ s/p bilateral aka Pulses: 2+ and symmetric Skin: Skin color, texture, turgor normal. No rashes or lesions. multiple large decubitus ulcers. Neurologic: Grossly normal Microbiology Date/Time Source Procedure Growth Status 09/05/18 16:00 Sputum Induced Gram Stain - Final Resulted 09/05/18 16:00 Sputum Induced Sputum Culture Pending Resulted 09/04/18 22:00 Urine,Clean Catch Urine Culture - Preliminary Gram Negative Bacillus 1 Resulted Laboratory Tests Test 09/05/18 16:15 09/06/18 05:30 C-Reactive Protein, Quantitative 5.2 mg/dL (0.00-0.90) H White Blood Count 14.1 K/UL (4.8-10.8) H Red Blood Count 2.57 M/UL (4.70-6.10) L Hemoglobin 7.9 G/DL (14.2-18.0) L Hematocrit 25.2 % (42.0-52.0) L Mean Corpuscular Volume 98 FL (80-99) Mean Corpuscular Hemoglobin 30.6 PG (27.0-31.0) Mean Corpuscular Hemoglobin Concent 31.2 G/DL (32.0-36.0) L Red Cell Distribution Width 15.6 % (11.6-14.8) H Platelet Count 176 K/UL (150-450) Mean Platelet Volume 5.4 FL (6.5-10.1) L Neutrophils (%) (Auto) % (45.0-75.0) Lymphocytes (%) (Auto) % (20.0-45.0) Monocytes (%) (Auto) % (1.0-10.0) Eosinophils (%) (Auto) % (0.0-3.0) Basophils (%) (Auto) % (0.0-2.0) Differential Total Cells Counted 100 Neutrophils % (Manual) 78 % (45-75) H Lymphocytes % (Manual) 11 % (20-45) L Monocytes % (Manual) 11 % (1-10) H Eosinophils % (Manual) 0 % (0-3) Basophils % (Manual) 0 % (0-2) Band Neutrophils 0 % (0-8) Platelet Estimate Adequate Platelet Morphology Normal Hypochromasia 1+ Anisocytosis 1+ Target Cells 2+ Sodium Level 137 MMOL/L (136-145) Potassium Level 5.5 MMOL/L (3.5-5.1) H Chloride Level 104 MMOL/L (98-107) Carbon Dioxide Level 30 MMOL/L (21-32) Anion Gap 4 mmol/L (5-15) L Blood Urea Nitrogen 8 mg/dL (7-18) Creatinine 0.3 MG/DL (0.55-1.30) L Estimat Glomerular Filtration Rate > 60 mL/min (>60) Glucose Level 121 MG/DL (74-106) H Calcium Level 7.5 MG/DL (8.5-10.1) L Phosphorus Level 2.8 MG/DL (2.5-4.9) Magnesium Level 1.6 MG/DL (1.8-2.4) L Total Bilirubin 0.2 MG/DL (0.2-1.0) Aspartate Amino Transf (AST/SGOT) 20 U/L (15-37) Alanine Aminotransferase (ALT/SGPT) 10 U/L (12-78) L Alkaline Phosphatase 101 U/L (46-116) Pro-B-Type Natriuretic Peptide 3908 pg/mL (0-125) H Total Protein 4.9 G/DL (6.4-8.2) L Albumin 1.0 G/DL (3.4-5.0) L Globulin 3.9 g/dL Albumin/Globulin Ratio 0.3 (1.0-2.7) L Current Medications Medications (Trade) Dose Ordered Sig/Erlin Route PRN Reason Start Time Stop Time Status Last Admin Dose Admin Acetaminophen (Tylenol) 650 mg Q4H PRN PEG Mild Pain (Pain Scale 1-3) 08/31/18 02:02 09/13/18 02:01 Acetaminophen (Tylenol) 650 mg Q6H PRN PEG Temp > 100.5 08/31/18 02:02 09/13/18 02:01 Amiodarone HCl (Cordarone) 200 mg DAILY PEG 08/31/18 09:00 09/19/18 08:59 09/06/18 08:42 Apixaban (Eliquis) 2.5 mg Q12HR GT 09/05/18 21:00 09/29/18 20:59 09/06/18 08:42 Chlorhexidine Gluconate (Yari-Hex 2%) 1 applic DAILY@1999 TOPIC 08/31/18 20:00 09/21/18 19:59 09/05/18 20:28 Cholestyramine Resin (Questran) 4 gm Q12H GT 09/06/18 03:00 10/06/18 02:59 09/06/18 03:38 Clonidine HCl (Catapres Tab) 0.1 mg Q4H PRN GT For High Blood Pressure 08/31/18 15:44 09/21/18 15:43 Digoxin (Lanoxin) 0.125 mg QOD PEG 09/05/18 09:00 09/19/18 08:59 09/05/18 10:10 Famotidine (Pepcid) 20 mg BEDTIME GT 09/06/18 21:00 10/06/18 20:59 Fidaxomicin (Dificid) 200 mg EVERY 12 HOURS ORAL 09/05/18 21:00 09/07/18 20:59 09/06/18 10:38 Isoniazid (Inh) 300 mg DAILY GT 08/31/18 09:00 09/13/18 08:59 09/06/18 08:43 Lactobacillus Acidophilus (Culturelle) 1 tab THREE TIMES A DAY GT 08/31/18 09:00 09/18/18 08:59 09/06/18 13:04 Loperamide HCl (Imodium) 2 mg EVERY 8 HOURS GT 09/05/18 22:00 09/29/18 13:59 09/06/18 13:04 Metoprolol Tartrate (Lopressor) 25 mg Q12HR PEG 08/31/18 09:00 09/22/18 20:59 09/06/18 08:43 Pyridoxine HCl (Vitamin B6) 50 mg DAILY GT 09/03/18 17:00 10/03/18 16:59 09/06/18 08:42 Sodium Hypochlorite (Dakin's Quarter Strength) 1 applic DAILY TOPIC 08/31/18 09:00 09/13/18 15:59 09/06/18 09:00 Alma Elkins M.D. Sep 06, 2018 15:29
[2018-09-06 16:00] VITALS: BP 152/80
--- NOTE | 2018-09-06 16:24 | Cardiac Electrophysiology PN ---
Assessment/Plan Assessment/Plan 1. Atrial fibrillation with rapid ventricular response. In SR on metoprolol 50 mg bid, digoxin 0.125, amiodarone 200 daily and Eliquis Off tele now 2. Fever and sepsis with Positive blood culture. IV antibiotics per Dr. Parker. 3. Dementia and psychosis. 4. 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 5. Sacral decubitus.S/P debridement 6. C. Diff colitis.On Flagyl 7. Hypotension. Resolved. 8. Hypokalemia, on Aldactone 25 bid 9. Anemia, S/P PRBC. 10. S/P PEG DW RN Subjective Subjective In isolation in NAD. Objective Last 24 Hour Vital Signs Date Time Temp Pulse Resp B/P (MAP) Pulse Ox O2 Delivery O2 Flow Rate FiO2 09/06/18 16:00 98.7 68 20 152/80 (104) 96 09/06/18 12:00 98.1 63 18 129/78 (95) 96 09/06/18 09:00 Nasal Cannula 2.0 09/06/18 08:43 66 131/70 09/06/18 08:00 98.6 66 20 131/70 (90) 93 09/06/18 04:00 97.5 67 18 102/52 (69) 97 09/06/18 00:00 99.0 66 20 123/69 (87) 99 09/05/18 21:00 Nasal Cannula 2.0 09/05/18 20:28 70 138/78 09/05/18 20:00 98.9 70 20 138/78 (98) 100 Intake and Output 09/05/18 09/06/18 19:00 07:00 Intake Total 810 ml 710 ml Output Total 700 ml 500 ml Balance 110 ml 210 ml Free Water 90 ml 50 ml Tube Feeding 720 ml 660 ml Output Urine Total 700 ml 500 ml Laboratory Tests Test 09/06/18 05:30 White Blood Count 14.1 K/UL (4.8-10.8) H Red Blood Count 2.57 M/UL (4.70-6.10) L Hemoglobin 7.9 G/DL (14.2-18.0) L Hematocrit 25.2 % (42.0-52.0) L Mean Corpuscular Volume 98 FL (80-99) Mean Corpuscular Hemoglobin 30.6 PG (27.0-31.0) Mean Corpuscular Hemoglobin Concent 31.2 G/DL (32.0-36.0) L Red Cell Distribution Width 15.6 % (11.6-14.8) H Platelet Count 176 K/UL (150-450) Mean Platelet Volume 5.4 FL (6.5-10.1) L Neutrophils (%) (Auto) % (45.0-75.0) Lymphocytes (%) (Auto) % (20.0-45.0) Monocytes (%) (Auto) % (1.0-10.0) Eosinophils (%) (Auto) % (0.0-3.0) Basophils (%) (Auto) % (0.0-2.0) Differential Total Cells Counted 100 Neutrophils % (Manual) 78 % (45-75) H Lymphocytes % (Manual) 11 % (20-45) L Monocytes % (Manual) 11 % (1-10) H Eosinophils % (Manual) 0 % (0-3) Basophils % (Manual) 0 % (0-2) Band Neutrophils 0 % (0-8) Platelet Estimate Adequate Platelet Morphology Normal Hypochromasia 1+ Anisocytosis 1+ Target Cells 2+ Sodium Level 137 MMOL/L (136-145) Potassium Level 5.5 MMOL/L (3.5-5.1) H Chloride Level 104 MMOL/L (98-107) Carbon Dioxide Level 30 MMOL/L (21-32) Anion Gap 4 mmol/L (5-15) L Blood Urea Nitrogen 8 mg/dL (7-18) Creatinine 0.3 MG/DL (0.55-1.30) L Estimat Glomerular Filtration Rate > 60 mL/min (>60) Glucose Level 121 MG/DL (74-106) H Calcium Level 7.5 MG/DL (8.5-10.1) L Phosphorus Level 2.8 MG/DL (2.5-4.9) Magnesium Level 1.6 MG/DL (1.8-2.4) L Total Bilirubin 0.2 MG/DL (0.2-1.0) Aspartate Amino Transf (AST/SGOT) 20 U/L (15-37) Alanine Aminotransferase (ALT/SGPT) 10 U/L (12-78) L Alkaline Phosphatase 101 U/L (46-116) Pro-B-Type Natriuretic Peptide 3908 pg/mL (0-125) H Total Protein 4.9 G/DL (6.4-8.2) L Albumin 1.0 G/DL (3.4-5.0) L Globulin 3.9 g/dL Albumin/Globulin Ratio 0.3 (1.0-2.7) L Microbiology Date/Time Source Procedure Growth Status 09/05/18 16:00 Sputum Induced Gram Stain - Final Resulted 09/05/18 16:00 Sputum Induced Sputum Culture Pending Resulted 09/04/18 22:00 Urine,Clean Catch Urine Culture - Preliminary Gram Negative Bacillus 1 Resulted Objective HEAD AND NECK: No JVD. LUNGS: Have coarse rhonchi. CARDIOVASCULAR: Irregular S1 and S2 with no gallop or murmur. ABDOMEN: Soft.PEG in place EXTREMITIES: Bilateral above-knee amputation. Amandeep Arora MD Sep 06, 2018 16:24
--- NOTE | 2018-09-06 18:26 | Internal Med Progress Note ---
Subjective Physician Name Pedro Caban Attending Physician Pedro Caban MD Current Medications Medications (Trade) Dose Ordered Sig/Erlin Route PRN Reason Start Time Stop Time Status Last Admin Dose Admin Acetaminophen (Tylenol) 650 mg Q4H PRN PEG Mild Pain (Pain Scale 1-3) 08/31/18 02:02 09/13/18 02:01 Acetaminophen (Tylenol) 650 mg Q6H PRN PEG Temp > 100.5 08/31/18 02:02 09/13/18 02:01 Amiodarone HCl (Cordarone) 200 mg DAILY PEG 08/31/18 09:00 09/19/18 08:59 09/06/18 08:42 Apixaban (Eliquis) 2.5 mg Q12HR GT 09/05/18 21:00 09/29/18 20:59 09/06/18 08:42 Chlorhexidine Gluconate (Yari-Hex 2%) 1 applic DAILY@1999 TOPIC 08/31/18 20:00 09/21/18 19:59 09/05/18 20:28 Cholestyramine Resin (Questran) 4 gm Q12H GT 09/06/18 03:00 10/06/18 02:59 09/06/18 17:54 Clonidine HCl (Catapres Tab) 0.1 mg Q4H PRN GT For High Blood Pressure 08/31/18 15:44 09/21/18 15:43 Digoxin (Lanoxin) 0.125 mg QOD PEG 09/05/18 09:00 09/19/18 08:59 09/05/18 10:10 Famotidine (Pepcid) 20 mg BEDTIME GT 09/06/18 21:00 10/06/18 20:59 Fidaxomicin (Dificid) 200 mg EVERY 12 HOURS ORAL 09/05/18 21:00 09/09/18 20:59 09/06/18 10:38 Isoniazid (Inh) 300 mg DAILY GT 08/31/18 09:00 09/13/18 08:59 09/06/18 08:43 Lactobacillus Acidophilus (Culturelle) 1 tab THREE TIMES A DAY GT 08/31/18 09:00 09/18/18 08:59 09/06/18 17:54 Loperamide HCl (Imodium) 2 mg EVERY 8 HOURS GT 09/05/18 22:00 09/29/18 13:59 09/06/18 13:04 Metoprolol Tartrate (Lopressor) 25 mg Q12HR PEG 08/31/18 09:00 09/22/18 20:59 09/06/18 08:43 Pyridoxine HCl (Vitamin B6) 50 mg DAILY GT 09/03/18 17:00 10/03/18 16:59 09/06/18 08:42 Sodium Hypochlorite (Dakin's Quarter Strength) 1 applic DAILY TOPIC 08/31/18 09:00 09/13/18 15:59 09/06/18 09:00 Allergies: Coded Allergies: MILK (Verified Allergy, Unknown, 02/02/18) Subjective Awake, alert, Responsive, talking , rectal tube, Objective Last Vital Signs Date Time Temp Pulse Resp B/P (MAP) Pulse Ox O2 Delivery O2 Flow Rate FiO2 09/06/18 16:00 98.7 68 20 152/80 (104) 96 09/06/18 09:00 Nasal Cannula 2.0 09/04/18 20:50 28 Laboratory Tests Test 09/06/18 05:30 White Blood Count 14.1 K/UL (4.8-10.8) H Red Blood Count 2.57 M/UL (4.70-6.10) L Hemoglobin 7.9 G/DL (14.2-18.0) L Hematocrit 25.2 % (42.0-52.0) L Mean Corpuscular Volume 98 FL (80-99) Mean Corpuscular Hemoglobin 30.6 PG (27.0-31.0) Mean Corpuscular Hemoglobin Concent 31.2 G/DL (32.0-36.0) L Red Cell Distribution Width 15.6 % (11.6-14.8) H Platelet Count 176 K/UL (150-450) Mean Platelet Volume 5.4 FL (6.5-10.1) L Neutrophils (%) (Auto) % (45.0-75.0) Lymphocytes (%) (Auto) % (20.0-45.0) Monocytes (%) (Auto) % (1.0-10.0) Eosinophils (%) (Auto) % (0.0-3.0) Basophils (%) (Auto) % (0.0-2.0) Differential Total Cells Counted 100 Neutrophils % (Manual) 78 % (45-75) H Lymphocytes % (Manual) 11 % (20-45) L Monocytes % (Manual) 11 % (1-10) H Eosinophils % (Manual) 0 % (0-3) Basophils % (Manual) 0 % (0-2) Band Neutrophils 0 % (0-8) Platelet Estimate Adequate Platelet Morphology Normal Hypochromasia 1+ Anisocytosis 1+ Target Cells 2+ Sodium Level 137 MMOL/L (136-145) Potassium Level 5.5 MMOL/L (3.5-5.1) H Chloride Level 104 MMOL/L (98-107) Carbon Dioxide Level 30 MMOL/L (21-32) Anion Gap 4 mmol/L (5-15) L Blood Urea Nitrogen 8 mg/dL (7-18) Creatinine 0.3 MG/DL (0.55-1.30) L Estimat Glomerular Filtration Rate > 60 mL/min (>60) Glucose Level 121 MG/DL (74-106) H Calcium Level 7.5 MG/DL (8.5-10.1) L Phosphorus Level 2.8 MG/DL (2.5-4.9) Magnesium Level 1.6 MG/DL (1.8-2.4) L Total Bilirubin 0.2 MG/DL (0.2-1.0) Aspartate Amino Transf (AST/SGOT) 20 U/L (15-37) Alanine Aminotransferase (ALT/SGPT) 10 U/L (12-78) L Alkaline Phosphatase 101 U/L (46-116) Pro-B-Type Natriuretic Peptide 3908 pg/mL (0-125) H Total Protein 4.9 G/DL (6.4-8.2) L Albumin 1.0 G/DL (3.4-5.0) L Globulin 3.9 g/dL Albumin/Globulin Ratio 0.3 (1.0-2.7) L Microbiology Date/Time Source Procedure Growth Status 09/05/18 16:00 Sputum Induced Gram Stain - Final Resulted 09/05/18 16:00 Sputum Induced Sputum Culture Pending Resulted 09/04/18 22:00 Urine,Clean Catch Urine Culture - Preliminary Gram Negative Bacillus 1 Resulted Intake and Output 09/05/18 09/06/18 19:00 07:00 Intake Total 810 ml 710 ml Output Total 700 ml 500 ml Balance 110 ml 210 ml Free Water 90 ml 50 ml Tube Feeding 720 ml 660 ml Output Urine Total 700 ml 500 ml Objective General: No acute distress, awake, alert, responsive, talking. HEENT: NCAT, sclera anicteric, PERRL, EOMI Neck: Supple, no significant jugular venous distention, Lungs: Fair inspiratory effort,decrease bilateral air entry at bases.l no Wheeze or Rales. Heart: Regular rate and rhythm, normal S1/S2, no murmur Abdomen: soft, generalized tenderness, less distended. Normoactive bowel sounds , Rectal Tube, PEG site intact. Extremities: No Cyanosis , clubbing or edema. bilateral AKA, less stump edema, RUE Piccline. Neuro: A&O x 2, Able to move upper extremities. SKIN: Multiple Decubi ulceration Assessment/Plan Assessment/Plan (1) Sepsis / bacteremia. 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 F/U with ID recommendations: Continue PO Fidaxomicin #7/10 given ongoing diarrhea despite oral vancomycin Pedro Caban MD Sep 06, 2018 18:26
--- NOTE | 2018-09-06 19:23 | General Progress Note ---
Assessment/Plan Assessment/Plan Assessment - C Difficile colitis - failing vanco and fidaxomicin - Doubt diarrhea due to TF on hold x 24 hrs for a trial basis - abnormal lytes - s/p PEG - s/p b/l AKA - anemia - duodenal ulcers - bacteremia, leukocytosis - Pyuria Recommendations - Dificid - probiotics - Will need fecal microbial transplant as last resort - Hold TF for 24 hours on trial basis - Questran - hold immodium, so BM pattern clear - wean down H2B - elevate HOB - replace electrolytes - transfuse PRN - TF - anticoagulation - Poor Px Subjective Allergies: Coded Allergies: MILK (Verified Allergy, Unknown, 02/02/18) Subjective above noted still with diarrhea TF held since this am on Dificid, but appears not to be responding Objective Last 24 Hour Vital Signs Date Time Temp Pulse Resp B/P (MAP) Pulse Ox O2 Delivery O2 Flow Rate FiO2 09/06/18 16:00 98.7 68 20 152/80 (104) 96 09/06/18 12:00 98.1 63 18 129/78 (95) 96 09/06/18 09:00 Nasal Cannula 2.0 09/06/18 08:43 66 131/70 09/06/18 08:00 98.6 66 20 131/70 (90) 93 09/06/18 04:00 97.5 67 18 102/52 (69) 97 09/06/18 00:00 99.0 66 20 123/69 (87) 99 09/05/18 21:00 Nasal Cannula 2.0 09/05/18 20:28 70 138/78 09/05/18 20:00 98.9 70 20 138/78 (98) 100 Intake and Output 09/05/18 09/06/18 19:00 07:00 Intake Total 810 ml 710 ml Output Total 700 ml 500 ml Balance 110 ml 210 ml Free Water 90 ml 50 ml Tube Feeding 720 ml 660 ml Output Urine Total 700 ml 500 ml Laboratory Tests 09/06/18 05:30: White Blood Count 14.1H, Red Blood Count 2.57L, Hemoglobin 7.9L, Hematocrit 25.2L, Mean Corpuscular Volume 98, Mean Corpuscular Hemoglobin 30.6, Mean Corpuscular Hemoglobin Concent 31.2L, Red Cell Distribution Width 15.6H, Platelet Count 176, Mean Platelet Volume 5.4L, Neutrophils (%) (Auto) , Lymphocytes (%) (Auto) , Monocytes (%) (Auto) , Eosinophils (%) (Auto) , Basophils (%) (Auto) , Differential Total Cells Counted 100, Neutrophils % ( Manual) 78H, Lymphocytes % (Manual) 11L, Monocytes % (Manual) 11H, Eosinophils % (Manual) 0, Basophils % (Manual) 0, Band Neutrophils 0, Platelet Estimate Adequate, Platelet Morphology Normal, Hypochromasia 1+, Anisocytosis 1+, Target Cells 2+, Sodium Level 137, Potassium Level 5.5H, Chloride Level 104, Carbon Dioxide Level 30, Anion Gap 4L, Blood Urea Nitrogen 8, Creatinine 0.3L, Estimat Glomerular Filtration Rate > 60, Glucose Level 121H, Calcium Level 7.5L, Phosphorus Level 2.8, Magnesium Level 1.6L, Total Bilirubin 0.2, Aspartate Amino Transf (AST/SGOT) 20, Alanine Aminotransferase (ALT/SGPT) 10L, Alkaline Phosphatase 101, Pro-B-Type Natriuretic Peptide 3908H, Total Protein 4.9L, Albumin 1.0L, Globulin 3.9, Albumin/Globulin Ratio 0.3L Height (Feet): 6 Height (Inches): 0.40 Weight (Pounds): 168 Objective Elderly AA man NCAT supple CTA RRR Abd soft (+) Gina Graham MD Sep 06, 2018 19:23
[2018-09-06 20:00] VITALS: BP 134/69
[2018-09-06] MEDS: Dyna-Hex 2% Top Sol 2oz TOPIC SCH (22:04)
[2018-09-07] VITALS: BP 135/90
[2018-09-07] MEDS: Cholestyramine 4gm Pkt GT SCH ×2 (02:44→15:00)
[2018-09-07 04:00] VITALS: BP 104/57
[2018-09-07 08:00] VITALS: BP 126/89
[2018-09-07 08:04] LABS: EOSINOPHILS % (AUTO) 0.5 % (0.0-3.0); HEMATOCRIT 28.7 % (42.0-52.0); LYMPHOCYTES % (AUTO) 18.2 % (20.0-45.0); MEAN CORPUSCULAR VOLUME 97 FL (80-99); MONOCYTES % (AUTO) 8.6 % (1.0-10.0); NEUTROPHILS % (AUTO) 71.7 % (45.0-75.0); PLATELET COUNT 248 K/UL (150-450); RED BLOOD COUNT 2.97 M/UL (4.70-6.10); RED CELL DISTRIBUTION WIDTH 15.6 % (11.6-14.8)
[2018-09-07 08:05] LABS: ALANINE AMINOTRANSFERASE 9 U/L (12-78); ALBUMIN 1.1 G/DL (3.4-5.0); ALBUMIN/GLOBULIN RATIO 0.2 (1.0-2.7); ALKALINE PHOSPHATASE 111 U/L (46-116); ANION GAP 5 mmol/L (5-15); ASPARTATE AMINO TRANSFERASE 21 U/L (15-37); BILIRUBIN,TOTAL 0.4 MG/DL (0.2-1.0); BLOOD UREA NITROGEN 7 mg/dL (7-18); CALCIUM 7.9 MG/DL (8.5-10.1); CARBON DIOXIDE 28 MMOL/L (21-32); CHLORIDE 97 MMOL/L (98-107); CREATININE 0.4 MG/DL (0.55-1.30); PHOSPHORUS 3.4 MG/DL (2.5-4.9); POTASSIUM 5.4 MMOL/L (3.5-5.1); SODIUM 130 MMOL/L (136-145)
[2018-09-07] MEDS: Dakin's 0.125% Soln (Quarter Strength) 16oz TOPIC SCH (09:00)
[2018-09-07] MEDS: Eliquis 2.5mg tablet GT SCH ×2 (09:40→21:00)
[2018-09-07] MEDS: Amiodarone 200mg tab PEG SCH (09:40)
[2018-09-07] MEDS: Lactobacillus-GG tablet GT SCH ×3 (09:40→18:45)
[2018-09-07] MEDS: Metoprolol 25mg tab PEG SCH (09:41)
[2018-09-07] MEDS: Pyridoxine 50mg tab GT SCH (09:41)
[2018-09-07] MEDS: Digoxin 0.125mg tab PEG SCH (09:42)
[2018-09-07] MEDS: Isoniazid 300mg tab GT SCH (09:42)
--- NOTE | 2018-09-07 11:55 | Nephrology Progress Note ---
Assessment/Plan Problem List: (1) Hypokalemia Assessment: also Low Phos and Low Mag (2) HTN (hypertension) (3) Atrial fibrillation (4) Clostridium difficile colitis (5) Decubitus ulcer (6) Anemia Assessment Low Phos Low K Low Mag C deficil colitis Sepsis Decubiti Anemia CVA At fib Plan Hold Dig down lopressor dose Albumin and NS bolus K , Mag , Phos supplement IV as needed until diarrhea subcides add B6 Monitor labs per consultants discussed with Dr Montesinos Subjective ROS Limited/Unobtainable: No Constitutional: Reports: weakness Objective Objective Last 24 Hour Vital Signs Date Time Temp Pulse Resp B/P (MAP) Pulse Ox O2 Delivery O2 Flow Rate FiO2 09/07/18 09:42 65 09/07/18 09:41 65 126/89 09/07/18 09:00 Nasal Cannula 2.0 09/07/18 08:00 98.4 65 20 126/89 (101) 100 09/07/18 04:00 98.4 53 18 104/57 (73) 100 09/07/18 00:00 98.3 56 18 135/90 (105) 99 09/06/18 22:05 70 134/69 09/06/18 21:00 Nasal Cannula 2.0 09/06/18 20:51 96 Nasal Cannula 2.0 28 09/06/18 20:51 Nasal Cannula 2.0 28 09/06/18 20:00 98.4 70 19 134/69 (90) 93 09/06/18 16:00 98.7 68 20 152/80 (104) 96 09/06/18 12:00 98.1 63 18 129/78 (95) 96 Intake and Output 09/06/18 09/07/18 18:59 06:59 Intake Total 430 ml Output Total 1440 ml 450 ml Balance -1010 ml -450 ml Free Water 30 ml IV Total 400 ml Output Urine Total 1350 ml 450 ml Stool Total 90 ml Laboratory Tests 09/07/18 06:10: White Blood Count 14.0H, Red Blood Count 2.97L, Hemoglobin 9.0L, Hematocrit 28.7L, Mean Corpuscular Volume 97, Mean Corpuscular Hemoglobin 30.4, Mean Corpuscular Hemoglobin Concent 31.4L, Red Cell Distribution Width 15.6H, Platelet Count 248, Mean Platelet Volume 5.3L, Neutrophils (%) (Auto) 71.7, Lymphocytes (%) (Auto) 18.2L, Monocytes (%) (Auto) 8.6, Eosinophils (%) (Auto) 0.5, Basophils (%) (Auto) 1.0, Sodium Level 130L, Potassium Level 5.4H, Chloride Level 97L, Carbon Dioxide Level 28, Anion Gap 5, Blood Urea Nitrogen 7 , Creatinine 0.4L, Estimat Glomerular Filtration Rate > 60, Glucose Level 67L, Calcium Level 7.9L, Phosphorus Level 3.4, Magnesium Level 1.6L, Total Bilirubin 0.4, Aspartate Amino Transf (AST/SGOT) 21, Alanine Aminotransferase (ALT/SGPT) 9L, Alkaline Phosphatase 111, Total Protein 6.0L, Albumin 1.1L, Globulin 4.9, Albumin/Globulin Ratio 0.2L Height (Feet): 6 Height (Inches): 0.40 Weight (Pounds): 168 General Appearance: no apparent distress Cardiovascular: bradycardia Respiratory/Chest: decreased breath sounds Objective no change Ruy Colvin MD Sep 07, 2018 11:55
[2018-09-07] MEDS ORDERED: Albumin Human 5% 250ml IV ONE (12:00)
--- NOTE | 2018-09-07 12:55 | Pulmonology Progress Note ---
Assessment/Plan Problems: (1) Clostridium difficile colitis (2) Acute metabolic encephalopathy (3) Sepsis (4) Decubitus skin ulcer (5) UTI (urinary tract infection) (6) Anemia (7) CVA (cerebral vascular accident) Assessment/Plan mental status better afebrile check electrolytes continue current meds. dvt prophylaxis. got his PEG K, phos, mg supplement med/surg dc planning Subjective ROS Limited/Unobtainable: No Constitutional: Reports: no symptoms HEENT: Repors: no symptoms Respiratory: Reports: no symptoms Allergies: Coded Allergies: MILK (Verified Allergy, Unknown, 02/02/18) Objective Last 24 Hour Vital Signs Date Time Temp Pulse Resp B/P (MAP) Pulse Ox O2 Delivery O2 Flow Rate FiO2 09/07/18 09:42 65 09/07/18 09:41 65 126/89 09/07/18 09:00 Nasal Cannula 2.0 09/07/18 08:00 98.4 65 20 126/89 (101) 100 09/07/18 04:00 98.4 53 18 104/57 (73) 100 09/07/18 00:00 98.3 56 18 135/90 (105) 99 09/06/18 22:05 70 134/69 09/06/18 21:00 Nasal Cannula 2.0 09/06/18 20:51 96 Nasal Cannula 2.0 28 09/06/18 20:51 Nasal Cannula 2.0 28 09/06/18 20:00 98.4 70 19 134/69 (90) 93 09/06/18 16:00 98.7 68 20 152/80 (104) 96 Intake and Output 09/06/18 09/07/18 18:59 06:59 Intake Total 430 ml Output Total 1440 ml 450 ml Balance -1010 ml -450 ml Free Water 30 ml IV Total 400 ml Output Urine Total 1350 ml 450 ml Stool Total 90 ml Objective General Appearance: WD/WN HEENT: normocephalic, atraumatic Respiratory/Chest: chest wall non-tender, lungs clear Cardiovascular: normal peripheral pulses, normal rate Abdomen: normal bowel sounds, soft, non tender Extremities: no cyanosis Skin: extensive decubiti Microbiology Date/Time Source Procedure Growth Status 09/05/18 15:15 Blood Blood Culture - Preliminary Resulted 09/05/18 14:00 Blood Blood Culture - Preliminary Resulted 09/05/18 16:00 Sputum Induced Gram Stain - Final Resulted 09/05/18 16:00 Sputum Culture - Preliminary Gram Negative Bacillus 1 Gram Positive Cocci Resulted 09/04/18 22:00 Urine,Clean Catch Urine Culture - Preliminary Acinetobacter Baumanii - Mdr Resulted Laboratory Tests 09/07/18 06:10: White Blood Count 14.0H, Red Blood Count 2.97L, Hemoglobin 9.0L, Hematocrit 28.7L, Mean Corpuscular Volume 97, Mean Corpuscular Hemoglobin 30.4, Mean Corpuscular Hemoglobin Concent 31.4L, Red Cell Distribution Width 15.6H, Platelet Count 248, Mean Platelet Volume 5.3L, Neutrophils (%) (Auto) 71.7, Lymphocytes (%) (Auto) 18.2L, Monocytes (%) (Auto) 8.6, Eosinophils (%) (Auto) 0.5, Basophils (%) (Auto) 1.0, Sodium Level 130L, Potassium Level 5.4H, Chloride Level 97L, Carbon Dioxide Level 28, Anion Gap 5, Blood Urea Nitrogen 7 , Creatinine 0.4L, Estimat Glomerular Filtration Rate > 60, Glucose Level 67L, Calcium Level 7.9L, Phosphorus Level 3.4, Magnesium Level 1.6L, Total Bilirubin 0.4, Aspartate Amino Transf (AST/SGOT) 21, Alanine Aminotransferase (ALT/SGPT) 9L, Alkaline Phosphatase 111, C-Reactive Protein, Quantitative [Pending], Total Protein 6.0L, Albumin 1.1L, Globulin 4.9, Albumin/Globulin Ratio 0.2L Current Medications Medications (Trade) Dose Ordered Sig/Erlin Route PRN Reason Start Time Stop Time Status Last Admin Dose Admin Acetaminophen (Tylenol) 650 mg Q4H PRN PEG Mild Pain (Pain Scale 1-3) 08/31/18 02:02 09/13/18 02:01 Acetaminophen (Tylenol) 650 mg Q6H PRN PEG Temp > 100.5 08/31/18 02:02 09/13/18 02:01 Albumin Human 500 ml @ 0 mls/hr Q0M ONCE IV 09/07/18 13:00 09/07/18 13:01 Amiodarone HCl (Cordarone) 200 mg DAILY PEG 08/31/18 09:00 09/19/18 08:59 09/07/18 09:40 Apixaban (Eliquis) 2.5 mg Q12HR GT 09/05/18 21:00 09/29/18 20:59 09/07/18 09:40 Chlorhexidine Gluconate (Yari-Hex 2%) 1 applic DAILY@1999 TOPIC 08/31/18 20:00 09/21/18 19:59 09/06/18 22:04 Cholestyramine Resin (Questran) 4 gm Q12H GT 09/06/18 03:00 10/06/18 02:59 09/07/18 02:44 Clonidine HCl (Catapres Tab) 0.1 mg Q4H PRN GT For High Blood Pressure 08/31/18 15:44 09/21/18 15:43 Famotidine (Pepcid) 20 mg BEDTIME GT 09/06/18 21:00 10/06/18 20:59 09/06/18 22:05 Fidaxomicin (Dificid) 200 mg EVERY 12 HOURS ORAL 09/05/18 21:00 09/09/18 20:59 09/07/18 09:41 Isoniazid (Inh) 300 mg DAILY GT 08/31/18 09:00 09/13/18 08:59 09/07/18 09:42 Lactobacillus Acidophilus (Culturelle) 1 tab THREE TIMES A DAY GT 08/31/18 09:00 09/18/18 08:59 09/07/18 12:42 Metoprolol Tartrate (Lopressor) 12.5 mg Q12HR GT 09/07/18 21:00 09/22/18 20:59 Pyridoxine HCl (Vitamin B6) 50 mg DAILY GT 09/03/18 17:00 10/03/18 16:59 09/07/18 09:41 Sodium Hypochlorite (Dakin's Quarter Strength) 1 applic DAILY TOPIC 08/31/18 09:00 09/13/18 15:59 09/07/18 09:00 Minerva Montesinos MD Sep 07, 2018 12:55
[2018-09-07] MEDS ORDERED: Albumin Human 5% 500ml IV ONE (13:00)
--- NOTE | 2018-09-07 14:11 | Infectious Diseases Prog Note ---
Assessment/Plan Assessment/Plan Sepsis-2ry to bacteremia (likley from GI translocation ) -CT abd/p" Colonic mural thickening consistent with some form of colitis. No pneumatosis or extraluminal air. C Diff , ongoing diarrhea -Cdif toxin a/b + -Bcx 08/21 GNR, 08/21 ESBL Proteus mirabilis (S Ertapenem, Zosyn), 08/21 Group C strep ; 08/15 Bcx 07/24 Prevotella L . (R Clinda, Unasyn; S flagyl) ;08/17 Bcx 07/24 EUBACTERIUM LENTUM 08/21 Bcx Neg -u/a no pyuria -CXR: Suspect a small left pleural effusion. 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 contaminant vs real sp cx GNR, GPC -08/28 CXR: There is decreased consolidation at the right lung base. There is some residual perihilar atelectasis. Gram positive bacteremia- real vs contaminant -09/05 Bcx 1/2 GPC clutrse (PICC line), 1/2 GPR peripheral Hx of lung cavitary lesion/ PNA- suspect likely to aspiration; lower suspicion for TB and/or fungal etiologies -06/08 CT chest: * Interval resolution of the cavitary component associated with the previously described anterior right upper lobe opacity. It is slightly decreased in size and more nodular in appearance on today's exam. Additional patchy opacities in the posterior right upper lobe are also slightly decreased in size and appear more nodular (previously were groundglass). Findings likely related to evolving infectious or inflammatory lesions however continued follow-up is recommended to assure resolution/exclude the possibility of neoplastic etiologies. -CT c/a/p: 10 mm opacity in the peripheral anterolateral right upper lobe with small central cavitation. Patchy groundglass opacity in the posterior right upper lobe. Suspect that these represent inflammatory/infectious lesions, but neoplastic etiology of either is certainly possible. Large left and moderate right pleural effusions. Resultant compressive atelectasis of portions of the lower lobes. 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 Hypertension. Multiple decubiti ulcers (elbow, sacral) -not infected Bipolar disorder. Coronary artery disease. VRE and MRSA colonized Plan: -Continue PO Fidaxomicin #01/27 given ongoing diarrhea despite oral vancomycin -agree with addition of cholestyramine -if diarrhea not improving, may need fecal transplant -Add Tigecycine for MDR ABC and for adjuvant treatment for Cdiff -Add IV Vancomycin pending ID BCx -repeat bcx x2 -switch orozco -Cont INH for latent TB -08/31 SP PO Vancomycin #17 -08/29 SP Meropenem #13 -08/26 SP Flagyl #5 -08/17 SP Zosyn #3, Daptomycin #3 -08/15 SP Tamiflu #2, Ceftriaxone #2 -08/14 SP Cefepime and LEvaquin x1 -Monitor CBC/CMP, temperatures -wound care -aspiration precautions -Sx f/u -f/u cx -CXR am Subjective Allergies: Coded Allergies: MILK (Verified Allergy, Unknown, 02/02/18) Subjective afebrile leukocytosis, increased to 14 stool now soft after starting questran Objective Vital Signs Last 24 Hour Vital Signs Date Time Temp Pulse Resp B/P (MAP) Pulse Ox O2 Delivery O2 Flow Rate FiO2 09/07/18 09:42 65 09/07/18 09:41 65 126/89 09/07/18 09:00 Nasal Cannula 2.0 09/07/18 08:00 98.4 65 20 126/89 (101) 100 09/07/18 04:00 98.4 53 18 104/57 (73) 100 09/07/18 00:00 98.3 56 18 135/90 (105) 99 09/06/18 22:05 70 134/69 09/06/18 21:00 Nasal Cannula 2.0 09/06/18 20:51 96 Nasal Cannula 2.0 28 09/06/18 20:51 Nasal Cannula 2.0 28 09/06/18 20:00 98.4 70 19 134/69 (90) 93 09/06/18 16:00 98.7 68 20 152/80 (104) 96 Height (Feet): 6 Height (Inches): 0.40 Weight (Pounds): 168 Objective General appearance: alert, cooperative, no distress, appears stated age Head: Normocephalic, without obvious abnormality, atraumatic Eyes: conjunctivae/corneas clear. PERRL, EOM's intact. Fundi benign Throat: Lips, mucosa, and tongue normal. Teeth and gums normal Neck: supple, symmetrical, trachea midline, no adenopathy, thyroid: not enlarged, symmetric, no tenderness/mass/nodules, no carotid bruit and no JVD Lungs: clear to auscultation bilaterally Heart: regular rate and rhythm, S1, S2 normal, no murmur, click, rub or gallop Abdomen: soft, non-tender. Bowel sounds normal. No masses, no organomegaly Extremities: extremities normal, atraumatic, no cyanosis or edema/ s/p bilateral aka Pulses: 2+ and symmetric Skin: Skin color, texture, turgor normal. No rashes or lesions. multiple large decubitus ulcers. Neurologic: Grossly normal Microbiology Date/Time Source Procedure Growth Status 09/05/18 15:15 Blood Blood Culture - Preliminary Resulted 09/05/18 14:00 Blood Blood Culture - Preliminary Resulted 09/05/18 16:00 Sputum Induced Gram Stain - Final Resulted 09/05/18 16:00 Sputum Culture - Preliminary Gram Negative Bacillus 1 Gram Positive Cocci Resulted 09/04/18 22:00 Urine,Clean Catch Urine Culture - Preliminary Acinetobacter Baumanii - Mdr Resulted Laboratory Tests Test 09/07/18 06:10 White Blood Count 14.0 K/UL (4.8-10.8) H Red Blood Count 2.97 M/UL (4.70-6.10) L Hemoglobin 9.0 G/DL (14.2-18.0) L Hematocrit 28.7 % (42.0-52.0) L Mean Corpuscular Volume 97 FL (80-99) Mean Corpuscular Hemoglobin 30.4 PG (27.0-31.0) Mean Corpuscular Hemoglobin Concent 31.4 G/DL (32.0-36.0) L Red Cell Distribution Width 15.6 % (11.6-14.8) H Platelet Count 248 K/UL (150-450) Mean Platelet Volume 5.3 FL (6.5-10.1) L Neutrophils (%) (Auto) 71.7 % (45.0-75.0) Lymphocytes (%) (Auto) 18.2 % (20.0-45.0) L Monocytes (%) (Auto) 8.6 % (1.0-10.0) Eosinophils (%) (Auto) 0.5 % (0.0-3.0) Basophils (%) (Auto) 1.0 % (0.0-2.0) Sodium Level 130 MMOL/L (136-145) L Potassium Level 5.4 MMOL/L (3.5-5.1) H Chloride Level 97 MMOL/L (98-107) L Carbon Dioxide Level 28 MMOL/L (21-32) Anion Gap 5 mmol/L (5-15) Blood Urea Nitrogen 7 mg/dL (7-18) Creatinine 0.4 MG/DL (0.55-1.30) L Estimat Glomerular Filtration Rate > 60 mL/min (>60) Glucose Level 67 MG/DL (74-106) L Calcium Level 7.9 MG/DL (8.5-10.1) L Phosphorus Level 3.4 MG/DL (2.5-4.9) Magnesium Level 1.6 MG/DL (1.8-2.4) L Total Bilirubin 0.4 MG/DL (0.2-1.0) Aspartate Amino Transf (AST/SGOT) 21 U/L (15-37) Alanine Aminotransferase (ALT/SGPT) 9 U/L (12-78) L Alkaline Phosphatase 111 U/L (46-116) C-Reactive Protein, Quantitative 5.6 mg/dL (0.00-0.90) H Total Protein 6.0 G/DL (6.4-8.2) L Albumin 1.1 G/DL (3.4-5.0) L Globulin 4.9 g/dL Albumin/Globulin Ratio 0.2 (1.0-2.7) L Current Medications Medications (Trade) Dose Ordered Sig/Erlin Route PRN Reason Start Time Stop Time Status Last Admin Dose Admin Acetaminophen (Tylenol) 650 mg Q4H PRN PEG Mild Pain (Pain Scale 1-3) 08/31/18 02:02 09/13/18 02:01 Acetaminophen (Tylenol) 650 mg Q6H PRN PEG Temp > 100.5 08/31/18 02:02 09/13/18 02:01 Amiodarone HCl (Cordarone) 200 mg DAILY PEG 08/31/18 09:00 09/19/18 08:59 09/07/18 09:40 Apixaban (Eliquis) 2.5 mg Q12HR GT 09/05/18 21:00 09/29/18 20:59 09/07/18 09:40 Chlorhexidine Gluconate (Yari-Hex 2%) 1 applic DAILY@1999 TOPIC 08/31/18 20:00 09/21/18 19:59 09/06/18 22:04 Cholestyramine Resin (Questran) 4 gm Q12H GT 09/06/18 03:00 10/06/18 02:59 09/07/18 02:44 Clonidine HCl (Catapres Tab) 0.1 mg Q4H PRN GT For High Blood Pressure 08/31/18 15:44 09/21/18 15:43 Famotidine (Pepcid) 20 mg BEDTIME GT 09/06/18 21:00 10/06/18 20:59 09/06/18 22:05 Fidaxomicin (Dificid) 200 mg EVERY 12 HOURS ORAL 09/05/18 21:00 09/09/18 20:59 09/07/18 09:41 Isoniazid (Inh) 300 mg DAILY GT 08/31/18 09:00 09/13/18 08:59 09/07/18 09:42 Lactobacillus Acidophilus (Culturelle) 1 tab THREE TIMES A DAY GT 08/31/18 09:00 09/18/18 08:59 09/07/18 12:42 Metoprolol Tartrate (Lopressor) 12.5 mg Q12HR GT 09/07/18 21:00 09/22/18 20:59 Pyridoxine HCl (Vitamin B6) 50 mg DAILY GT 09/03/18 17:00 10/03/18 16:59 09/07/18 09:41 Sodium Hypochlorite (Dakin's Quarter Strength) 1 applic DAILY TOPIC 08/31/18 09:00 09/13/18 15:59 09/07/18 09:00 Alma Elkins M.D. Sep 07, 2018 14:11
--- NOTE | 2018-09-07 14:16 | Surgery Progress Note ---
Surgery Progress Note Subjective Symptoms: pain same, passing flatus, BM, other Objective Last 24 Hour Vital Signs Date Time Temp Pulse Resp B/P (MAP) Pulse Ox O2 Delivery O2 Flow Rate FiO2 09/07/18 09:42 65 09/07/18 09:41 65 126/89 09/07/18 09:00 Nasal Cannula 2.0 09/07/18 08:00 98.4 65 20 126/89 (101) 100 09/07/18 04:00 98.4 53 18 104/57 (73) 100 09/07/18 00:00 98.3 56 18 135/90 (105) 99 09/06/18 22:05 70 134/69 09/06/18 21:00 Nasal Cannula 2.0 09/06/18 20:51 96 Nasal Cannula 2.0 28 09/06/18 20:51 Nasal Cannula 2.0 28 09/06/18 20:00 98.4 70 19 134/69 (90) 93 09/06/18 16:00 98.7 68 20 152/80 (104) 96 I&O Intake and Output 09/06/18 09/07/18 18:59 06:59 Intake Total 430 ml Output Total 1440 ml 450 ml Balance -1010 ml -450 ml Free Water 30 ml IV Total 400 ml Output Urine Total 1350 ml 450 ml Stool Total 90 ml Dressing: saturated Wound: other Drains: other Cardiovascular: RSR Respiratory: decreased breath sounds Abdomen: soft, non-tender, present bowel sounds, non-distended Extremities: other Laboratory Tests Test 09/07/18 06:10 White Blood Count 14.0 K/UL (4.8-10.8) H Red Blood Count 2.97 M/UL (4.70-6.10) L Hemoglobin 9.0 G/DL (14.2-18.0) L Hematocrit 28.7 % (42.0-52.0) L Mean Corpuscular Volume 97 FL (80-99) Mean Corpuscular Hemoglobin 30.4 PG (27.0-31.0) Mean Corpuscular Hemoglobin Concent 31.4 G/DL (32.0-36.0) L Red Cell Distribution Width 15.6 % (11.6-14.8) H Platelet Count 248 K/UL (150-450) Mean Platelet Volume 5.3 FL (6.5-10.1) L Neutrophils (%) (Auto) 71.7 % (45.0-75.0) Lymphocytes (%) (Auto) 18.2 % (20.0-45.0) L Monocytes (%) (Auto) 8.6 % (1.0-10.0) Eosinophils (%) (Auto) 0.5 % (0.0-3.0) Basophils (%) (Auto) 1.0 % (0.0-2.0) Sodium Level 130 MMOL/L (136-145) L Potassium Level 5.4 MMOL/L (3.5-5.1) H Chloride Level 97 MMOL/L (98-107) L Carbon Dioxide Level 28 MMOL/L (21-32) Anion Gap 5 mmol/L (5-15) Blood Urea Nitrogen 7 mg/dL (7-18) Creatinine 0.4 MG/DL (0.55-1.30) L Estimat Glomerular Filtration Rate > 60 mL/min (>60) Glucose Level 67 MG/DL (74-106) L Calcium Level 7.9 MG/DL (8.5-10.1) L Phosphorus Level 3.4 MG/DL (2.5-4.9) Magnesium Level 1.6 MG/DL (1.8-2.4) L Total Bilirubin 0.4 MG/DL (0.2-1.0) Aspartate Amino Transf (AST/SGOT) 21 U/L (15-37) Alanine Aminotransferase (ALT/SGPT) 9 U/L (12-78) L Alkaline Phosphatase 111 U/L (46-116) C-Reactive Protein, Quantitative 5.6 mg/dL (0.00-0.90) H Total Protein 6.0 G/DL (6.4-8.2) L Albumin 1.1 G/DL (3.4-5.0) L Globulin 4.9 g/dL Albumin/Globulin Ratio 0.2 (1.0-2.7) L Plan Problems: (1) Sepsis Assessment & Plan: IV abx trend labs will monitor wounds s/p wound cleaning/debridement s/p PEG C diff treatment per ID cont with IV Abx Micro noted path noted failing abx tx for c diff. concerning. (2) Decubitus skin ulcer Assessment & Plan: Pt presented on admission with multiple full thickness pressure injuries. Full thickness pressure injury to L elbow.Base of wound wound with 25% fibrinous slough,75% pink granulation noted.(+) maceration along borders. erythema without elevation in skin temp periwound(L)1.5cm x (W)1.8cm x(D)0.3cm. Full thickness pressure injury R trochanter .Base of wound with pink granulation.Edges adherent to base of wound .No odor or exudate noted.Darker skin tone without induration periwound. (L)4.5cm x (W)6.3cm x (D) 3cm.Undermining 12-3 by 3cm @12o'clock. Full thickness pressure injury to R ischium .Wound is malodorous.90% soft necrosis,10% pink noted at base of wound ,(+) epibole along edges .Periwound darker in skin tone and is indurated.(L)8.4cm x (W)4.3cm (D)2.5cm .Tunneling at 1o'clock by 3.6cm ,tunneling @5o'clock by 6.3cm. Full thickness sacral pressure injury with 80% soft necrosis ,20% pink granulation .Wound is malodorous with small amt brown exudate (L)8.5cm x (W)5cm x (D)2.5cm ,undermining 8-5 by 4.7cm @1o'clock. wounds with gross drainage poor nutritional status. prognosis concerning follow up wounds eval with team performed and L elbow wound with 60% mixed yellow /pope slough with surrounding pink granulation (L)4.5cm x (W)2.7cm. Dark skin tone periwound. Minimal serous exudate without odor noted to drsg upon removal. Second wound proximally but in close proximity to L elbow granular with trace biofilm (L)2.3cm x (W)2.4cm.Edges adherent and flat .No odor or exudate noted. Full thickness pressure injury to R trochanter with pink granulation. Small area of bone visible at base of wound. Edges adherent and flat. No odor or exudate noted (L)3.5cm x (W)6cm x (D)3.1cm. Dark skin tone periwound. Full thickness pressure injury R ischium with tunneling at 6o'clock with 80% loose -Soft necrosis at base of wound with surrounding pink granulation along inner wall of wound.#2 small areas along borders with soft loosening necrosis. No odor noted .Periwound less indurated but with darker skin tone. (L)7cm x (W) 2.9 x(D)5cm ,tunneling at 6o'clock by 5cm. Full thickness sacral pressure injury with undermining, 75% mixed soft necrosis and slough, 25% pink granulation. Small amt serosanguineous exudate without odor noted .Edges are mostly adherent with scattered areas that are non- adherent with yellow slough. (L)10cm x (W)8.2cm x (D)2.3cm ,undermining 6-3 by 4.2cm @12o'clock. Resolving partial thickness wound L hip base of wound is moist -viable .Edges adherent to base of wound .Periwound without fluctuance or induration. (L)3.9cm x(W)3cm. L ischial partial thickness wound resolving.Base of wound is pink -moist .(+) maceration long borders. Periwound without erythema or induration (L)2cm x (W) 1.2cm. No odor or exudate noted. Patients wounds with dressing changes going well but continues to have large wounds that require significant care. Recently feeding tube placement and tolerating feeds with increased nutrition will hopefully be able to begin healing wounds Tx.Plan: Cleanse R trochanter with Dakin's 0.125% candelaria. Loosely pack with Dakin's soaked kerlix .Cover with Optifoam drsg TID and prn. Cleanse R Ischial wound with Dakin's 0.125% candelaria.Loosely pack with Dakin's soaked kerlix. Cavilon Skin Barrier periwound. Cover with Optifoam drsg TID and prn. Cleanse Sacral wound with dakin's 0.125% candelaria.Loosely pack with Dakin's soaked kerlix.Cavilon Skin Barrier periwound.Cover with Optifoam drsg TID and prn. Cleanse L elbow with Dakin's 0.125% candelaria. Apply Dakin's moist 2x2 gauze. Cover with Optifoam drsg TID and prn. Quartet Air fluidized mattress. Reposition L side to back at least every 2hours or as tolerated. Goyo Osuna Sep 07, 2018 14:16
[2018-09-07] MEDS ORDERED: Vancomycin 750mg/NS 275ml IVPB SCH ×2 (16:00)
[2018-09-07] MEDS ORDERED: Tigecycline 100 MG in NS 110 ML IVPB SCH (17:00)
--- NOTE | 2018-09-07 17:37 | Cardiac Electrophysiology PN ---
Assessment/Plan Assessment/Plan 1. Atrial fibrillation with rapid ventricular response. In SR on metoprolol 12.5 mg bid, amiodarone 200 daily and Eliquis Off tele now. DC Digoxin 2. Fever and sepsis with Positive blood culture. Antibiotics per Dr. Parker. 3. Dementia and psychosis. 4. 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 5. Sacral decubitus.S/P debridement 6. C. Diff colitis. 7. Hypotension. Resolved. 8. Anemia, S/P PRBC. 9. S/P PEG DW RN Subjective Subjective In isolation in NAD. RNs at bedside. DC back to [facility] today Objective Last 24 Hour Vital Signs Date Time Temp Pulse Resp B/P (MAP) Pulse Ox O2 Delivery O2 Flow Rate FiO2 09/07/18 09:42 65 09/07/18 09:41 65 126/89 09/07/18 09:00 Nasal Cannula 2.0 09/07/18 08:00 98.4 65 20 126/89 (101) 100 09/07/18 04:00 98.4 53 18 104/57 (73) 100 09/07/18 00:00 98.3 56 18 135/90 (105) 99 09/06/18 22:05 70 134/69 09/06/18 21:00 Nasal Cannula 2.0 09/06/18 20:51 96 Nasal Cannula 2.0 28 09/06/18 20:51 Nasal Cannula 2.0 28 09/06/18 20:00 98.4 70 19 134/69 (90) 93 Intake and Output 09/06/18 09/07/18 18:59 06:59 Intake Total 430 ml Output Total 1440 ml 450 ml Balance -1010 ml -450 ml Free Water 30 ml IV Total 400 ml Output Urine Total 1350 ml 450 ml Stool Total 90 ml Laboratory Tests Test 09/07/18 06:10 White Blood Count 14.0 K/UL (4.8-10.8) H Red Blood Count 2.97 M/UL (4.70-6.10) L Hemoglobin 9.0 G/DL (14.2-18.0) L Hematocrit 28.7 % (42.0-52.0) L Mean Corpuscular Volume 97 FL (80-99) Mean Corpuscular Hemoglobin 30.4 PG (27.0-31.0) Mean Corpuscular Hemoglobin Concent 31.4 G/DL (32.0-36.0) L Red Cell Distribution Width 15.6 % (11.6-14.8) H Platelet Count 248 K/UL (150-450) Mean Platelet Volume 5.3 FL (6.5-10.1) L Neutrophils (%) (Auto) 71.7 % (45.0-75.0) Lymphocytes (%) (Auto) 18.2 % (20.0-45.0) L Monocytes (%) (Auto) 8.6 % (1.0-10.0) Eosinophils (%) (Auto) 0.5 % (0.0-3.0) Basophils (%) (Auto) 1.0 % (0.0-2.0) Sodium Level 130 MMOL/L (136-145) L Potassium Level 5.4 MMOL/L (3.5-5.1) H Chloride Level 97 MMOL/L (98-107) L Carbon Dioxide Level 28 MMOL/L (21-32) Anion Gap 5 mmol/L (5-15) Blood Urea Nitrogen 7 mg/dL (7-18) Creatinine 0.4 MG/DL (0.55-1.30) L Estimat Glomerular Filtration Rate > 60 mL/min (>60) Glucose Level 67 MG/DL (74-106) L Calcium Level 7.9 MG/DL (8.5-10.1) L Phosphorus Level 3.4 MG/DL (2.5-4.9) Magnesium Level 1.6 MG/DL (1.8-2.4) L Total Bilirubin 0.4 MG/DL (0.2-1.0) Aspartate Amino Transf (AST/SGOT) 21 U/L (15-37) Alanine Aminotransferase (ALT/SGPT) 9 U/L (12-78) L Alkaline Phosphatase 111 U/L (46-116) C-Reactive Protein, Quantitative 5.6 mg/dL (0.00-0.90) H Total Protein 6.0 G/DL (6.4-8.2) L Albumin 1.1 G/DL (3.4-5.0) L Globulin 4.9 g/dL Albumin/Globulin Ratio 0.2 (1.0-2.7) L Microbiology Date/Time Source Procedure Growth Status 09/05/18 15:15 Blood Blood Culture - Preliminary Resulted 09/05/18 14:00 Blood Blood Culture - Preliminary Resulted 09/05/18 16:00 Sputum Induced Gram Stain - Final Resulted 09/05/18 16:00 Sputum Culture - Preliminary Gram Negative Bacillus 1 Gram Positive Cocci Resulted 09/04/18 22:00 Urine,Clean Catch Urine Culture - Preliminary Acinetobacter Baumanii - Mdr Resulted Objective HEAD AND NECK: No JVD. LUNGS: Have coarse rhonchi. CARDIOVASCULAR: Irregular S1 and S2 with no gallop or murmur. ABDOMEN: Soft.PEG in place EXTREMITIES: Bilateral above-knee amputation. Amandeep Arora MD Sep 07, 2018 17:37
--- NOTE | 2018-09-07 18:53 | Internal Med Progress Note ---
Subjective Date of Service: Sep 07, 2018 Physician Name Jackson,Daniel Attending Physician Pedro Caban MD Current Medications Medications (Trade) Dose Ordered Sig/Erlin Route PRN Reason Start Time Stop Time Status Last Admin Dose Admin Acetaminophen (Tylenol) 650 mg Q4H PRN PEG Mild Pain (Pain Scale 1-3) 08/31/18 02:02 09/13/18 02:01 Acetaminophen (Tylenol) 650 mg Q6H PRN PEG Temp > 100.5 08/31/18 02:02 09/13/18 02:01 Amiodarone HCl (Cordarone) 200 mg DAILY PEG 08/31/18 09:00 09/19/18 08:59 09/07/18 09:40 Apixaban (Eliquis) 2.5 mg Q12HR GT 09/05/18 21:00 09/29/18 20:59 09/07/18 09:40 Chlorhexidine Gluconate (Yari-Hex 2%) 1 applic DAILY@1999 TOPIC 08/31/18 20:00 09/21/18 19:59 09/06/18 22:04 Cholestyramine Resin (Questran) 4 gm Q12H GT 09/06/18 03:00 10/06/18 02:59 09/07/18 15:00 Clonidine HCl (Catapres Tab) 0.1 mg Q4H PRN GT For High Blood Pressure 08/31/18 15:44 09/21/18 15:43 Famotidine (Pepcid) 20 mg BEDTIME GT 09/06/18 21:00 10/06/18 20:59 09/06/18 22:05 Fidaxomicin (Dificid) 200 mg EVERY 12 HOURS ORAL 09/05/18 21:00 09/09/18 20:59 09/07/18 09:41 Isoniazid (Inh) 300 mg DAILY GT 08/31/18 09:00 09/13/18 08:59 09/07/18 09:42 Lactobacillus Acidophilus (Culturelle) 1 tab THREE TIMES A DAY GT 08/31/18 09:00 09/18/18 08:59 09/07/18 18:45 Metoprolol Tartrate (Lopressor) 12.5 mg Q12HR GT 09/07/18 21:00 09/22/18 20:59 Pyridoxine HCl (Vitamin B6) 50 mg DAILY GT 09/03/18 17:00 10/03/18 16:59 09/07/18 09:41 Sodium Hypochlorite (Dakin's Quarter Strength) 1 applic DAILY TOPIC 08/31/18 09:00 09/13/18 15:59 09/07/18 09:00 Tigecycline 100 mg/Sodium Chloride 110 ml @ 110 mls/hr ONCE IVPB 09/07/18 17:00 09/07/18 20:00 09/07/18 18:45 Tigecycline 50 mg/ Sodium Chloride 110 ml @ 220 mls/hr Q12H IVPB 09/08/18 05:00 09/15/18 04:59 Vancomycin HCl (Vanco rx to dose) 1 ea DAILY PRN MISC Per rx protocol 09/07/18 14:15 10/07/18 14:14 Vancomycin HCl 750 mg/Sodium Chloride 275 ml @ 183.333 mls/hr Q12H IVPB 09/07/18 16:00 09/12/18 15:59 09/07/18 18:51 Allergies: Coded Allergies: MILK (Verified Allergy, Unknown, 02/02/18) ROS Limited/Unobtainable: Yes Subjective 68 YO M admitted with fever and leukocytosis. Now Sepsis and C. Difficile colitis/diarrhea. Cover for Int Med-Dr Caban. S/P PEG 08/29/18 Objective Last Vital Signs Date Time Temp Pulse Resp B/P (MAP) Pulse Ox O2 Delivery O2 Flow Rate FiO2 09/07/18 09:42 65 09/07/18 09:41 126/89 09/07/18 09:00 Nasal Cannula 2.0 09/07/18 08:00 98.4 20 100 09/06/18 20:51 28 Laboratory Tests Test 09/07/18 06:10 White Blood Count 14.0 K/UL (4.8-10.8) H Red Blood Count 2.97 M/UL (4.70-6.10) L Hemoglobin 9.0 G/DL (14.2-18.0) L Hematocrit 28.7 % (42.0-52.0) L Mean Corpuscular Volume 97 FL (80-99) Mean Corpuscular Hemoglobin 30.4 PG (27.0-31.0) Mean Corpuscular Hemoglobin Concent 31.4 G/DL (32.0-36.0) L Red Cell Distribution Width 15.6 % (11.6-14.8) H Platelet Count 248 K/UL (150-450) Mean Platelet Volume 5.3 FL (6.5-10.1) L Neutrophils (%) (Auto) 71.7 % (45.0-75.0) Lymphocytes (%) (Auto) 18.2 % (20.0-45.0) L Monocytes (%) (Auto) 8.6 % (1.0-10.0) Eosinophils (%) (Auto) 0.5 % (0.0-3.0) Basophils (%) (Auto) 1.0 % (0.0-2.0) Sodium Level 130 MMOL/L (136-145) L Potassium Level 5.4 MMOL/L (3.5-5.1) H Chloride Level 97 MMOL/L (98-107) L Carbon Dioxide Level 28 MMOL/L (21-32) Anion Gap 5 mmol/L (5-15) Blood Urea Nitrogen 7 mg/dL (7-18) Creatinine 0.4 MG/DL (0.55-1.30) L Estimat Glomerular Filtration Rate > 60 mL/min (>60) Glucose Level 67 MG/DL (74-106) L Calcium Level 7.9 MG/DL (8.5-10.1) L Phosphorus Level 3.4 MG/DL (2.5-4.9) Magnesium Level 1.6 MG/DL (1.8-2.4) L Total Bilirubin 0.4 MG/DL (0.2-1.0) Aspartate Amino Transf (AST/SGOT) 21 U/L (15-37) Alanine Aminotransferase (ALT/SGPT) 9 U/L (12-78) L Alkaline Phosphatase 111 U/L (46-116) C-Reactive Protein, Quantitative 5.6 mg/dL (0.00-0.90) H Total Protein 6.0 G/DL (6.4-8.2) L Albumin 1.1 G/DL (3.4-5.0) L Globulin 4.9 g/dL Albumin/Globulin Ratio 0.2 (1.0-2.7) L Microbiology Date/Time Source Procedure Growth Status 09/05/18 15:15 Blood Blood Culture - Preliminary Resulted 09/05/18 14:00 Blood Blood Culture - Preliminary Resulted 09/05/18 16:00 Sputum Induced Gram Stain - Final Resulted 09/05/18 16:00 Sputum Culture - Preliminary Gram Negative Bacillus 1 Gram Positive Cocci Resulted 09/04/18 22:00 Urine,Clean Catch Urine Culture - Preliminary Acinetobacter Baumanii - Mdr Resulted Intake and Output 09/06/18 09/07/18 18:59 06:59 Intake Total 430 ml Output Total 1440 ml 450 ml Balance -1010 ml -450 ml Free Water 30 ml IV Total 400 ml Output Urine Total 1350 ml 450 ml Stool Total 90 ml Objective General Appearance: WD/WN, no apparent distress, lethargic EENT: PERRL/EOMI, normal ENT inspection Neck: non-tender, normal alignment, supple, normal inspection Cardiovascular: normal peripheral pulses, normal rate, regular rhythm, no gallop/murmur, no JVD Respiratory/Chest: chest wall non-tender, lungs clear, normal breath sounds, no respiratory distress, no accessory muscle use Abdomen: normal bowel sounds, non tender, soft, no organomegaly, no mass Extremities: normal range of motion, non-tender Neurologic: sugar boiler II-XII grossly normal Skin: normal pigmentation, warm/dry Assessment/Plan Problem List: (1) Sepsis Assessment & Plan: ESBL Proteus Mirablilis. S/P meropenem per ID. 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 (5) Renal failure (ARF), acute on chronic (6) Decubitus ulcer Assessment & Plan: Await debridement per surgery-see note (7) Bipolar II disorder (8) Leukocytosis (9) Clostridium difficile colitis Assessment & Plan: Continue oral vanco per ID (10) CVA (cerebral vascular accident) (11) Acute metabolic encephalopathy (12) HTN (hypertension) (13) CAD (coronary artery disease) (14) Atrial fibrillation Assessment & Plan: Continue eliquis (15) Pneumonia Assessment & Plan: Continue INH per ID-see note (16) Hypernatremia Assessment & Plan: Nephrology consult. continue D5NS + KCL (17) Hypokalemia Assessment & Plan: Cont D5NS +Kcl (18) Anemia Assessment & Plan: S/P transfusion 2 units PRBC (19) Protein-calorie malnutrition Assessment & Plan: Await PEG 08/29/18-see GI note (20) Latent tuberculosis Assessment & Plan: Continue INH per ID Assessment/Plan Discharge planning: [facility] Daniel Jackson MD Sep 07, 2018 18:53
[2018-09-07 20:00] VITALS: BP 97/58
[2018-09-07] MEDS: Dyna-Hex 2% Top Sol 2oz TOPIC SCH (20:00)
[2018-09-07] MEDS: Metoprolol Tartrate 12.5mg TAB GT SCH (21:00)
[2018-09-08] VITALS: BP 152/79
[2018-09-08 04:00] VITALS: BP 140/83
[2018-09-08] MEDS ORDERED: Tigecycline 50 MG in NS 110 ML IVPB SCH (05:00)
[2018-09-08 07:30] LABS: BASOPHILS % (AUTO) 0.9 % (0.0-2.0); EOSINOPHILS % (AUTO) 0.2 % (0.0-3.0); HEMATOCRIT 27.6 % (42.0-52.0); HEMOGLOBIN 8.7 G/DL (14.2-18.0); MEAN CORPUSCULAR VOLUME 96 FL (80-99); MONOCYTES % (AUTO) 10.8 % (1.0-10.0); NEUTROPHILS % (AUTO) 72.1 % (45.0-75.0); PLATELET COUNT 277 K/UL (150-450); RED BLOOD COUNT 2.87 M/UL (4.70-6.10); RED CELL DISTRIBUTION WIDTH 16.1 % (11.6-14.8); WHITE BLOOD COUNT 11.7 K/UL (4.8-10.8)
[2018-09-08 07:35] LABS: ALANINE AMINOTRANSFERASE 12 U/L (12-78); ALBUMIN 1.4 G/DL (3.4-5.0); ALBUMIN/GLOBULIN RATIO 0.3 (1.0-2.7); ALKALINE PHOSPHATASE 109 U/L (46-116); ANION GAP 4 mmol/L (5-15); ASPARTATE AMINO TRANSFERASE 24 U/L (15-37); BILIRUBIN,TOTAL 0.6 MG/DL (0.2-1.0); BLOOD UREA NITROGEN 7 mg/dL (7-18); CALCIUM 7.9 MG/DL (8.5-10.1); CARBON DIOXIDE 28 MMOL/L (21-32); CHLORIDE 102 MMOL/L (98-107); CREATININE 0.4 MG/DL (0.55-1.30); PHOSPHORUS 3.4 MG/DL (2.5-4.9); POTASSIUM 4.9 MMOL/L (3.5-5.1); SODIUM 134 MMOL/L (136-145)
[2018-09-08 08:00] VITALS: BP 151/91
[2018-09-08] MEDS: Lactobacillus-GG tablet GT SCH ×2 (09:24→12:26)
[2018-09-08] MEDS: Metoprolol Tartrate 12.5mg TAB GT SCH (09:24)
[2018-09-08] MEDS: Isoniazid 300mg tab GT SCH (09:24)
[2018-09-08] MEDS: Eliquis 2.5mg tablet GT SCH (09:25)
[2018-09-08] MEDS: Amiodarone 200mg tab PEG SCH (09:25)
[2018-09-08] MEDS: Dakin's 0.125% Soln (Quarter Strength) 16oz TOPIC SCH (09:25)
[2018-09-08] MEDS: Pyridoxine 50mg tab GT SCH (09:25)
[2018-09-08] MEDS ORDERED: DIFICID200 MG PO ×2 (09:34→13:55)
--- NOTE | 2018-09-08 10:24 | Diagnostic Imaging Report ---
Indication: Shortness of breath Technique: One view of the chest Comparison: 09/04/2018 Findings: Large left pleural effusion persists, stable or perhaps minimally improved. There is slightly increased hazy opacity at the right lung base, may reflect slightly increasing pleural effusion and/or parenchymal infiltrate. Right arm PICC is again demonstrated. The aorta is tortuous and ectatic. Impression: Stable or perhaps minimally improved large left pleural effusion Slightly increased right basilar opacity, may reflect increasing pleural fluid and/or parenchymal infiltrate
--- NOTE | 2018-09-08 11:15 | Progress Note ---
DATE: 09/07/2018 NOTE: POOR AUDIO SUBJECTIVE: This patient was seen in followup of his Clostridium difficile colitis. His tube feedings have been held. His bowel movements have dramatically dropped. He is completing his treatment course. OBJECTIVE: GENERAL: Debilitated man, seen in his room. HEENT: Normocephalic and atraumatic. NECK: Supple. CHEST: Clear to auscultation. CARDIOVASCULAR: Revealed a regular rate. ABDOMEN: Soft and mildly distended. EXTREMITIES: Revealed bilateral amputations. LABORATORY DATA: Laboratory data were noted. ASSESSMENT: This patient presents with ongoing diarrhea and an apparent failure to respond to both vancomycin and Dificid - his problem with diarrhea may be due to tube feeding and therefore this will be investigated today by holding his tube feeding. Should there be a resolution of diarrhea, then perhaps change tube feeding. RECOMMENDATIONS: 1. Follow laboratory parameters and exam. 2. Follow stool output. 3. continue antibiotics. Gina Petersen M.D. DR: MADDI JOB#: [id number] CC: GEORGETTE
[2018-09-08 12:00] VITALS: BP 136/72
--- NOTE | 2018-09-08 13:32 | Nephrology Progress Note ---
Assessment/Plan Problem List: (1) Hypokalemia Assessment: also Low Phos and Low Mag (2) HTN (hypertension) (3) Atrial fibrillation (4) Clostridium difficile colitis (5) Decubitus ulcer (6) Anemia Assessment Low Phos Low K Low Mag C deficil colitis Sepsis Decubiti Anemia CVA At fib Plan Hold Dig down lopressor dose Albumin and NS bolus K , Mag , Phos supplement IV as needed until diarrhea subcides add B6 Monitor labs per consultants discussed with Dr Montesinos Subjective ROS Limited/Unobtainable: No Objective Objective Last 24 Hour Vital Signs Date Time Temp Pulse Resp B/P (MAP) Pulse Ox O2 Delivery O2 Flow Rate FiO2 09/08/18 12:00 98.9 55 21 136/72 (93) 98 09/08/18 09:24 71 140/83 09/08/18 09:00 Nasal Cannula 2.0 09/08/18 08:00 98.5 74 19 151/91 (111) 98 09/08/18 04:00 98.3 71 18 140/83 (102) 94 09/08/18 00:00 97.7 66 18 152/79 (103) 96 09/07/18 21:00 112 97/58 09/07/18 21:00 Nasal Cannula 2.0 09/07/18 20:17 97 Nasal Cannula 2.0 28 09/07/18 20:17 Nasal Cannula 2.0 28 09/07/18 20:00 97.7 112 18 97/58 (71) 96 Intake and Output 09/07/18 09/08/18 19:00 07:00 Output Total 650 ml 2070 ml Balance -650 ml -2070 ml Output Urine Total 650 ml 2000 ml Stool Total 70 ml # Bowel Movements 1 Laboratory Tests 09/08/18 06:30: White Blood Count 11.7H, Red Blood Count 2.87L, Hemoglobin 8.7L, Hematocrit 27.6L, Mean Corpuscular Volume 96, Mean Corpuscular Hemoglobin 30.4, Mean Corpuscular Hemoglobin Concent 31.7L, Red Cell Distribution Width 16.1H, Platelet Count 277, Mean Platelet Volume 5.9L, Neutrophils (%) (Auto) 72.1, Lymphocytes (%) (Auto) 16.0L, Monocytes (%) (Auto) 10.8H, Eosinophils (%) (Auto ) 0.2, Basophils (%) (Auto) 0.9, Sodium Level 134L, Potassium Level 4.9, Chloride Level 102, Carbon Dioxide Level 28, Anion Gap 4L, Blood Urea Nitrogen 7 , Creatinine 0.4L, Estimat Glomerular Filtration Rate > 60, Glucose Level 56L, Uric Acid 2.8, Calcium Level 7.9L, Phosphorus Level 3.4, Magnesium Level 1.5L, Total Bilirubin 0.6, Aspartate Amino Transf (AST/SGOT) 24, Alanine Aminotransferase (ALT/SGPT) 12, Alkaline Phosphatase 109, Pro-B-Type Natriuretic Peptide 3052H, Total Protein 5.8L, Albumin 1.4L, Globulin 4.4, Albumin/Globulin Ratio 0.3L, Digoxin Level 0.5 Height (Feet): 6 Height (Inches): 0.40 Weight (Pounds): 168 General Appearance: no apparent distress, lethargic Cardiovascular: normal rate Respiratory/Chest: decreased breath sounds Abdomen: soft Objective no change Ruy Colvin MD Sep 08, 2018 13:32
--- NOTE | 2018-09-08 13:39 | Infectious Diseases Prog Note ---
Assessment/Plan Assessment/Plan Sepsis-2ry to bacteremia (likley from GI translocation ) -CT abd/p" Colonic mural thickening consistent with some form of colitis. No pneumatosis or extraluminal air. C Diff , ongoing diarrhea -Cdif toxin a/b + -Bcx 08/21 GNR, 08/21 ESBL Proteus mirabilis (S Ertapenem, Zosyn), 08/21 Group C strep ; 08/15 Bcx 07/24 Prevotella L . (R Clinda, Unasyn; S flagyl) ;08/17 Bcx 07/24 EUBACTERIUM LENTUM 08/21 Bcx Neg -u/a no pyuria -CXR: Suspect a small left pleural effusion. Mild basal atelectasis -influenza sc neg Fever, SP Leukocytosis , mild recurrent; improving Probable PNA -09/08 CXR: Stable or perhaps minimally improved large left pleural effusion/ Slightly increased right basilar opacity, may reflect increasing pleural fluid and/or parenchymal infiltrate -09/04 CXR: New/increased bilateral interstitial edema/ Right basilar hazy opacity, new, may reflect a pleural effusion versus hazy infiltrate u/a wbc 20-30; ucx 100k MDR ABC (S Tigecycline)- ? contaminant vs real sp cx MRSA, MDR ABC -08/28 CXR: There is decreased consolidation at the right lung base. There is some residual perihilar atelectasis. Gram positive bacteremia- real vs contaminant -09/05 Bcx 1/2 GPC clutrse (PICC line), 1/2 Diphtheroids Hx of lung cavitary lesion/ PNA- suspect likely to aspiration; lower suspicion for TB and/or fungal etiologies -06/08 CT chest: * Interval resolution of the cavitary component associated with the previously described anterior right upper lobe opacity. It is slightly decreased in size and more nodular in appearance on today's exam. Additional patchy opacities in the posterior right upper lobe are also slightly decreased in size and appear more nodular (previously were groundglass). Findings likely related to evolving infectious or inflammatory lesions however continued follow-up is recommended to assure resolution/exclude the possibility of neoplastic etiologies. -CT c/a/p: 10 mm opacity in the peripheral anterolateral right upper lobe with small central cavitation. Patchy groundglass opacity in the posterior right upper lobe. Suspect that these represent inflammatory/infectious lesions, but neoplastic etiology of either is certainly possible. Large left and moderate right pleural effusions. Resultant compressive atelectasis of portions of the lower lobes. 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 Hypertension. Multiple decubiti ulcers (elbow, sacral) -not infected Bipolar disorder. Coronary artery disease. VRE and MRSA colonized Plan: -Continue PO Fidaxomicin #9/10 given ongoing diarrhea despite oral vancomycin -agree with addition of cholestyramine -if diarrhea not improving, may need fecal transplant -Cont Tigecycine #2/7 for MDR ABC and for adjuvant treatment for Cdiff -Cont IV Vancomycin #2/7 pending ID BCx and for MRSA PNA -f/u repeat bcx x2 -switch orozco -Cont INH for latent TB -/ SP PO Vancomycin #17 -08/29 SP Meropenem #13 -08/26 SP Flagyl #5 -08/17 SP Zosyn #3, Daptomycin #3 -08/15 SP Tamiflu #2, Ceftriaxone #2 -08/14 SP Cefepime and LEvaquin x1 -Monitor CBC/CMP, temperatures -wound care -aspiration precautions -Sx f/u -f/u cx Subjective Allergies: Coded Allergies: MILK (Verified Allergy, Unknown, 02/02/18) Subjective afebrile leukocytosis improving Objective Vital Signs Last 24 Hour Vital Signs Date Time Temp Pulse Resp B/P (MAP) Pulse Ox O2 Delivery O2 Flow Rate FiO2 09/08/18 12:00 98.9 55 21 136/72 (93) 98 09/08/18 09:24 71 140/83 09/08/18 09:00 Nasal Cannula 2.0 09/08/18 08:00 98.5 74 19 151/91 (111) 98 3/22/19 04:00 98.3 71 18 140/83 (102) 94 09/08/18 00:00 97.7 66 18 152/79 (103) 96 09/07/18 21:00 112 97/58 09/07/18 21:00 Nasal Cannula 2.0 09/07/18 20:17 97 Nasal Cannula 2.0 28 09/07/18 20:17 Nasal Cannula 2.0 28 09/07/18 20:00 97.7 112 18 97/58 (71) 96 Height (Feet): 6 Height (Inches): 0.40 Weight (Pounds): 168 Objective General appearance: alert, cooperative, no distress, appears stated age Head: Normocephalic, without obvious abnormality, atraumatic Eyes: conjunctivae/corneas clear. PERRL, EOM's intact. Fundi benign Throat: Lips, mucosa, and tongue normal. Teeth and gums normal Neck: supple, symmetrical, trachea midline, no adenopathy, thyroid: not enlarged, symmetric, no tenderness/mass/nodules, no carotid bruit and no JVD Lungs: clear to auscultation bilaterally Heart: regular rate and rhythm, S1, S2 normal, no murmur, click, rub or gallop Abdomen: soft, non-tender. Bowel sounds normal. No masses, no organomegaly Extremities: extremities normal, atraumatic, no cyanosis or edema/ s/p bilateral aka Pulses: 2+ and symmetric Skin: Skin color, texture, turgor normal. No rashes or lesions. multiple large decubitus ulcers. Neurologic: Grossly normal Microbiology Date/Time Source Procedure Growth Status 09/05/18 15:15 Blood Blood Culture - Preliminary Resulted 09/05/18 14:00 Blood Blood Culture - Final Diphtheroids Complete 09/05/18 16:00 Sputum Induced Gram Stain - Final Resulted 09/05/18 16:00 Sputum Culture - Preliminary A.baumanii Complx - Mdr Staphylococcus Aureus - Mrsa Resulted Laboratory Tests Test 09/08/18 06:30 White Blood Count 11.7 K/UL (4.8-10.8) H Red Blood Count 2.87 M/UL (4.70-6.10) L Hemoglobin 8.7 G/DL (14.2-18.0) L Hematocrit 27.6 % (42.0-52.0) L Mean Corpuscular Volume 96 FL (80-99) Mean Corpuscular Hemoglobin 30.4 PG (27.0-31.0) Mean Corpuscular Hemoglobin Concent 31.7 G/DL (32.0-36.0) L Red Cell Distribution Width 16.1 % (11.6-14.8) H Platelet Count 277 K/UL (150-450) Mean Platelet Volume 5.9 FL (6.5-10.1) L Neutrophils (%) (Auto) 72.1 % (45.0-75.0) Lymphocytes (%) (Auto) 16.0 % (20.0-45.0) L Monocytes (%) (Auto) 10.8 % (1.0-10.0) H Eosinophils (%) (Auto) 0.2 % (0.0-3.0) Basophils (%) (Auto) 0.9 % (0.0-2.0) Sodium Level 134 MMOL/L (136-145) L Potassium Level 4.9 MMOL/L (3.5-5.1) Chloride Level 102 MMOL/L (98-107) Carbon Dioxide Level 28 MMOL/L (21-32) Anion Gap 4 mmol/L (5-15) L Blood Urea Nitrogen 7 mg/dL (7-18) Creatinine 0.4 MG/DL (0.55-1.30) L Estimat Glomerular Filtration Rate > 60 mL/min (>60) Glucose Level 56 MG/DL (74-106) L Uric Acid 2.8 MG/DL (2.6-7.2) Calcium Level 7.9 MG/DL (8.5-10.1) L Phosphorus Level 3.4 MG/DL (2.5-4.9) Magnesium Level 1.5 MG/DL (1.8-2.4) L Total Bilirubin 0.6 MG/DL (0.2-1.0) Aspartate Amino Transf (AST/SGOT) 24 U/L (15-37) Alanine Aminotransferase (ALT/SGPT) 12 U/L (12-78) Alkaline Phosphatase 109 U/L (46-116) Pro-B-Type Natriuretic Peptide 3052 pg/mL (0-125) H Total Protein 5.8 G/DL (6.4-8.2) L Albumin 1.4 G/DL (3.4-5.0) L Globulin 4.4 g/dL Albumin/Globulin Ratio 0.3 (1.0-2.7) L Digoxin Level 0.5 NG/ML (0.5-2.0) Current Medications Medications (Trade) Dose Ordered Sig/Erlin Route PRN Reason Start Time Stop Time Status Last Admin Dose Admin Acetaminophen (Tylenol) 650 mg Q4H PRN PEG Mild Pain (Pain Scale 1-3) 08/31/18 02:02 09/13/18 02:01 09/08/18 09:25 Acetaminophen (Tylenol) 650 mg Q6H PRN PEG Temp > 100.5 08/31/18 02:02 09/13/18 02:01 Amiodarone HCl (Cordarone) 200 mg DAILY PEG 08/31/18 09:00 09/19/18 08:59 09/08/18 09:25 Apixaban (Eliquis) 2.5 mg Q12HR GT 09/05/18 21:00 09/29/18 20:59 09/08/18 09:25 Chlorhexidine Gluconate (Yari-Hex 2%) 1 applic DAILY@1999 TOPIC 08/31/18 20:00 09/21/18 19:59 09/07/18 20:00 Cholestyramine Resin (Questran) 4 gm Q12H GT 09/06/18 03:00 10/06/18 02:59 09/07/18 15:00 Clonidine HCl (Catapres Tab) 0.1 mg Q4H PRN GT For High Blood Pressure 08/31/18 15:44 09/21/18 15:43 Famotidine (Pepcid) 20 mg BEDTIME GT 09/06/18 21:00 10/06/18 20:59 09/07/18 21:00 Fidaxomicin (Dificid) 200 mg EVERY 12 HOURS ORAL 09/05/18 21:00 09/09/18 20:59 09/08/18 09:24 Isoniazid (Inh) 300 mg DAILY GT 08/31/18 09:00 09/13/18 08:59 09/08/18 09:24 Lactobacillus Acidophilus (Culturelle) 1 tab THREE TIMES A DAY GT 08/31/18 09:00 09/18/18 08:59 09/08/18 12:26 Magnesium Sulfate 100 ml @ 100 mls/hr Q1H IVPB 09/08/18 10:00 09/08/18 13:59 09/08/18 12:26 Metoprolol Tartrate (Lopressor) 12.5 mg Q12HR GT 09/07/18 21:00 09/22/18 20:59 09/08/18 09:24 Pyridoxine HCl (Vitamin B6) 50 mg DAILY GT 09/03/18 17:00 10/03/18 16:59 09/08/18 09:25 Sodium Hypochlorite (Dakin's Quarter Strength) 1 applic DAILY TOPIC 08/31/18 09:00 09/13/18 15:59 09/08/18 09:25 Tigecycline 50 mg/ Sodium Chloride 110 ml @ 220 mls/hr Q12H IVPB 09/08/18 05:00 09/15/18 04:59 Vancomycin HCl (Vanco rx to dose) 1 ea DAILY PRN MISC Per rx protocol 09/07/18 14:15 10/07/18 14:14 Vancomycin HCl 750 mg/Sodium Chloride 275 ml @ 183.333 mls/hr Q12H IVPB 09/07/18 16:00 09/12/18 15:59 09/07/18 18:51 Alma Elkins M.D. Sep 08, 2018 13:39
[2018-09-08] MEDS ORDERED: VANCOMYCIN750 MG/150 IV (13:56)
[2018-09-08] MEDS ORDERED: TYGACIL50 MG IVPB (13:56)
--- NOTE | 2018-09-08 14:07 | Cardiac Electrophysiology PN ---
Assessment/Plan Assessment/Plan 1. Atrial fibrillation with rapid ventricular response. In SR on metoprolol 12.5 mg bid, amiodarone 200 daily and Eliquis 2. Fever and sepsis with Positive blood culture. Antibiotics per Dr. Parker. 3. Dementia and psychosis. 4. 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 5. Sacral decubitus. S/P debridement 6. C. Diff colitis. On Abx per ID 7. Hypotension. Resolved. 8. Anemia, S/P PRBC. 9. S/P PEG 10. Placement pending GI clearance DW RN Subjective Subjective In isolation in NAD. RNs at bedside. Awaiting placement Objective Last 24 Hour Vital Signs Date Time Temp Pulse Resp B/P (MAP) Pulse Ox O2 Delivery O2 Flow Rate FiO2 09/08/18 12:00 98.9 55 21 136/72 (93) 98 09/08/18 09:24 71 140/83 09/08/18 09:00 Nasal Cannula 2.0 09/08/18 08:00 98.5 74 19 151/91 (111) 98 09/08/18 04:00 98.3 71 18 140/83 (102) 94 09/08/18 00:00 97.7 66 18 152/79 (103) 96 09/07/18 21:00 112 97/58 09/07/18 21:00 Nasal Cannula 2.0 09/07/18 20:17 97 Nasal Cannula 2.0 28 09/07/18 20:17 Nasal Cannula 2.0 28 09/07/18 20:00 97.7 112 18 97/58 (71) 96 Intake and Output 09/07/18 09/08/18 19:00 07:00 Output Total 650 ml 2070 ml Balance -650 ml -2070 ml Output Urine Total 650 ml 2000 ml Stool Total 70 ml # Bowel Movements 1 Laboratory Tests Test 09/08/18 06:30 White Blood Count 11.7 K/UL (4.8-10.8) H Red Blood Count 2.87 M/UL (4.70-6.10) L Hemoglobin 8.7 G/DL (14.2-18.0) L Hematocrit 27.6 % (42.0-52.0) L Mean Corpuscular Volume 96 FL (80-99) Mean Corpuscular Hemoglobin 30.4 PG (27.0-31.0) Mean Corpuscular Hemoglobin Concent 31.7 G/DL (32.0-36.0) L Red Cell Distribution Width 16.1 % (11.6-14.8) H Platelet Count 277 K/UL (150-450) Mean Platelet Volume 5.9 FL (6.5-10.1) L Neutrophils (%) (Auto) 72.1 % (45.0-75.0) Lymphocytes (%) (Auto) 16.0 % (20.0-45.0) L Monocytes (%) (Auto) 10.8 % (1.0-10.0) H Eosinophils (%) (Auto) 0.2 % (0.0-3.0) Basophils (%) (Auto) 0.9 % (0.0-2.0) Sodium Level 134 MMOL/L (136-145) L Potassium Level 4.9 MMOL/L (3.5-5.1) Chloride Level 102 MMOL/L (98-107) Carbon Dioxide Level 28 MMOL/L (21-32) Anion Gap 4 mmol/L (5-15) L Blood Urea Nitrogen 7 mg/dL (7-18) Creatinine 0.4 MG/DL (0.55-1.30) L Estimat Glomerular Filtration Rate > 60 mL/min (>60) Glucose Level 56 MG/DL (74-106) L Uric Acid 2.8 MG/DL (2.6-7.2) Calcium Level 7.9 MG/DL (8.5-10.1) L Phosphorus Level 3.4 MG/DL (2.5-4.9) Magnesium Level 1.5 MG/DL (1.8-2.4) L Total Bilirubin 0.6 MG/DL (0.2-1.0) Aspartate Amino Transf (AST/SGOT) 24 U/L (15-37) Alanine Aminotransferase (ALT/SGPT) 12 U/L (12-78) Alkaline Phosphatase 109 U/L (46-116) Pro-B-Type Natriuretic Peptide 3052 pg/mL (0-125) H Total Protein 5.8 G/DL (6.4-8.2) L Albumin 1.4 G/DL (3.4-5.0) L Globulin 4.4 g/dL Albumin/Globulin Ratio 0.3 (1.0-2.7) L Digoxin Level 0.5 NG/ML (0.5-2.0) Microbiology Date/Time Source Procedure Growth Status 09/05/18 15:15 Blood Blood Culture - Preliminary Resulted 09/05/18 16:00 Sputum Induced Gram Stain - Final Resulted 09/05/18 16:00 Sputum Culture - Preliminary A.baumanii Complx - Mdr Staphylococcus Aureus - Mrsa Resulted Objective HEAD AND NECK: No JVD. LUNGS: Have coarse rhonchi. CARDIOVASCULAR: Irregular S1 and S2 with no gallop or murmur. ABDOMEN: Soft.PEG in place EXTREMITIES: Bilateral above-knee amputation. Amandeep Arora MD Sep 08, 2018 14:07
--- NOTE | 2018-09-08 14:33 | Pulmonology Progress Note ---
Assessment/Plan Problems: (1) Clostridium difficile colitis (2) Acute metabolic encephalopathy (3) Sepsis (4) Decubitus skin ulcer (5) UTI (urinary tract infection) (6) Anemia (7) CVA (cerebral vascular accident) Assessment/Plan CXR 09/08 reviewed: large bilateral effusion mental status better afebrile check electrolytes continue current meds. dvt prophylaxis. got his PEG K, phos, mg supplement med/surg dc planning Subjective ROS Limited/Unobtainable: No Constitutional: Reports: no symptoms HEENT: Repors: no symptoms Respiratory: Reports: no symptoms Allergies: Coded Allergies: MILK (Verified Allergy, Unknown, 02/02/18) Objective Last 24 Hour Vital Signs Date Time Temp Pulse Resp B/P (MAP) Pulse Ox O2 Delivery O2 Flow Rate FiO2 09/08/18 12:00 98.9 55 21 136/72 (93) 98 09/08/18 09:24 71 140/83 09/08/18 09:00 Nasal Cannula 2.0 09/08/18 08:00 98.5 74 19 151/91 (111) 98 09/08/18 04:00 98.3 71 18 140/83 (102) 94 09/08/18 00:00 97.7 66 18 152/79 (103) 96 09/07/18 21:00 112 97/58 09/07/18 21:00 Nasal Cannula 2.0 09/07/18 20:17 97 Nasal Cannula 2.0 28 09/07/18 20:17 Nasal Cannula 2.0 28 09/07/18 20:00 97.7 112 18 97/58 (71) 96 Intake and Output 09/07/18 09/08/18 18:59 06:59 Output Total 650 ml 2070 ml Balance -650 ml -2070 ml Output Urine Total 650 ml 2000 ml Stool Total 70 ml # Bowel Movements 1 Objective General Appearance: WD/WN HEENT: normocephalic, atraumatic Respiratory/Chest: chest wall non-tender, lungs clear Cardiovascular: normal peripheral pulses, normal rate Abdomen: normal bowel sounds, soft, non tender Extremities: no cyanosis Skin: extensive decubiti Microbiology Date/Time Source Procedure Growth Status 09/05/18 15:15 Blood Blood Culture - Preliminary Resulted 09/05/18 16:00 Sputum Induced Gram Stain - Final Resulted 09/05/18 16:00 Sputum Culture - Preliminary A.baumanii Complx - Mdr Staphylococcus Aureus - Mrsa Resulted Laboratory Tests 09/08/18 06:30: White Blood Count 11.7H, Red Blood Count 2.87L, Hemoglobin 8.7L, Hematocrit 27.6L, Mean Corpuscular Volume 96, Mean Corpuscular Hemoglobin 30.4, Mean Corpuscular Hemoglobin Concent 31.7L, Red Cell Distribution Width 16.1H, Platelet Count 277, Mean Platelet Volume 5.9L, Neutrophils (%) (Auto) 72.1, Lymphocytes (%) (Auto) 16.0L, Monocytes (%) (Auto) 10.8H, Eosinophils (%) (Auto ) 0.2, Basophils (%) (Auto) 0.9, Sodium Level 134L, Potassium Level 4.9, Chloride Level 102, Carbon Dioxide Level 28, Anion Gap 4L, Blood Urea Nitrogen 7 , Creatinine 0.4L, Estimat Glomerular Filtration Rate > 60, Glucose Level 56L, Uric Acid 2.8, Calcium Level 7.9L, Phosphorus Level 3.4, Magnesium Level 1.5L, Total Bilirubin 0.6, Aspartate Amino Transf (AST/SGOT) 24, Alanine Aminotransferase (ALT/SGPT) 12, Alkaline Phosphatase 109, Pro-B-Type Natriuretic Peptide 3052H, Total Protein 5.8L, Albumin 1.4L, Globulin 4.4, Albumin/Globulin Ratio 0.3L, Digoxin Level 0.5 Current Medications Medications (Trade) Dose Ordered Sig/Erlin Route PRN Reason Start Time Stop Time Status Last Admin Dose Admin Acetaminophen (Tylenol) 650 mg Q4H PRN PEG Mild Pain (Pain Scale 1-3) 08/31/18 02:02 09/13/18 02:01 09/08/18 09:25 Acetaminophen (Tylenol) 650 mg Q6H PRN PEG Temp > 100.5 08/31/18 02:02 09/13/18 02:01 Amiodarone HCl (Cordarone) 200 mg DAILY PEG 08/31/18 09:00 09/19/18 08:59 09/08/18 09:25 Apixaban (Eliquis) 2.5 mg Q12HR GT 09/05/18 21:00 09/29/18 20:59 09/08/18 09:25 Chlorhexidine Gluconate (Yari-Hex 2%) 1 applic DAILY@2000 TOPIC 08/31/18 20:00 09/21/18 19:59 09/07/18 20:00 Cholestyramine Resin (Questran) 4 gm Q12H GT 09/06/18 03:00 10/06/18 02:59 09/07/18 15:00 Clonidine HCl (Catapres Tab) 0.1 mg Q4H PRN GT For High Blood Pressure 08/31/18 15:44 09/21/18 15:43 Famotidine (Pepcid) 20 mg BEDTIME GT 09/06/18 21:00 10/06/18 20:59 09/07/18 21:00 Fidaxomicin (Dificid) 200 mg EVERY 12 HOURS ORAL 09/05/18 21:00 09/09/18 20:59 09/08/18 09:24 Isoniazid (Inh) 300 mg DAILY GT 08/31/18 09:00 09/13/18 08:59 09/08/18 09:24 Lactobacillus Acidophilus (Culturelle) 1 tab THREE TIMES A DAY GT 08/31/18 09:00 09/18/18 08:59 09/08/18 12:26 Metoprolol Tartrate (Lopressor) 12.5 mg Q12HR GT 09/07/18 21:00 09/22/18 20:59 09/08/18 09:24 Pyridoxine HCl (Vitamin B6) 50 mg DAILY GT 09/03/18 17:00 10/03/18 16:59 09/08/18 09:25 Sodium Hypochlorite (Dakin's Quarter Strength) 1 applic DAILY TOPIC 08/31/18 09:00 09/13/18 15:59 09/08/18 09:25 Tigecycline 50 mg/ Sodium Chloride 110 ml @ 220 mls/hr Q12H IVPB 09/08/18 05:00 09/15/18 04:59 Vancomycin HCl (Vanco rx to dose) 1 ea DAILY PRN MISC Per rx protocol 09/07/18 14:15 10/07/18 14:14 Vancomycin HCl 750 mg/Sodium Chloride 275 ml @ 183.333 mls/hr Q12H IVPB 09/07/18 16:00 09/12/18 15:59 09/07/18 18:51 Minerva Montesinos MD Sep 08, 2018 14:33
--- NOTE | 2018-09-08 15:19 | Surgery Progress Note ---
Surgery Progress Note Subjective Symptoms: pain same, tolerating diet, passing flatus, BM Objective Last 24 Hour Vital Signs Date Time Temp Pulse Resp B/P (MAP) Pulse Ox O2 Delivery O2 Flow Rate FiO2 09/08/18 12:00 98.9 55 21 136/72 (93) 98 09/08/18 09:24 71 140/83 09/08/18 09:00 Nasal Cannula 2.0 09/08/18 08:00 98.5 74 19 151/91 (111) 98 09/08/18 04:00 98.3 71 18 140/83 (102) 94 09/08/18 00:00 97.7 66 18 152/79 (103) 96 09/07/18 21:00 112 97/58 09/07/18 21:00 Nasal Cannula 2.0 09/07/18 20:17 97 Nasal Cannula 2.0 28 09/07/18 20:17 Nasal Cannula 2.0 28 09/07/18 20:00 97.7 112 18 97/58 (71) 96 I&O Intake and Output 09/07/18 09/08/18 18:59 06:59 Output Total 650 ml 2070 ml Balance -650 ml -2070 ml Output Urine Total 650 ml 2000 ml Stool Total 70 ml # Bowel Movements 1 Dressing: saturated Wound: other Drains: other Cardiovascular: RSR Respiratory: decreased breath sounds Abdomen: soft, present bowel sounds, non-distended Extremities: no cyanosis, other Laboratory Tests Test 09/08/18 06:30 White Blood Count 11.7 K/UL (4.8-10.8) H Red Blood Count 2.87 M/UL (4.70-6.10) L Hemoglobin 8.7 G/DL (14.2-18.0) L Hematocrit 27.6 % (42.0-52.0) L Mean Corpuscular Volume 96 FL (80-99) Mean Corpuscular Hemoglobin 30.4 PG (27.0-31.0) Mean Corpuscular Hemoglobin Concent 31.7 G/DL (32.0-36.0) L Red Cell Distribution Width 16.1 % (11.6-14.8) H Platelet Count 277 K/UL (150-450) Mean Platelet Volume 5.9 FL (6.5-10.1) L Neutrophils (%) (Auto) 72.1 % (45.0-75.0) Lymphocytes (%) (Auto) 16.0 % (20.0-45.0) L Monocytes (%) (Auto) 10.8 % (1.0-10.0) H Eosinophils (%) (Auto) 0.2 % (0.0-3.0) Basophils (%) (Auto) 0.9 % (0.0-2.0) Sodium Level 134 MMOL/L (136-145) L Potassium Level 4.9 MMOL/L (3.5-5.1) Chloride Level 102 MMOL/L (98-107) Carbon Dioxide Level 28 MMOL/L (21-32) Anion Gap 4 mmol/L (5-15) L Blood Urea Nitrogen 7 mg/dL (7-18) Creatinine 0.4 MG/DL (0.55-1.30) L Estimat Glomerular Filtration Rate > 60 mL/min (>60) Glucose Level 56 MG/DL (74-106) L Uric Acid 2.8 MG/DL (2.6-7.2) Calcium Level 7.9 MG/DL (8.5-10.1) L Phosphorus Level 3.4 MG/DL (2.5-4.9) Magnesium Level 1.5 MG/DL (1.8-2.4) L Total Bilirubin 0.6 MG/DL (0.2-1.0) Aspartate Amino Transf (AST/SGOT) 24 U/L (15-37) Alanine Aminotransferase (ALT/SGPT) 12 U/L (12-78) Alkaline Phosphatase 109 U/L (46-116) Pro-B-Type Natriuretic Peptide 3052 pg/mL (0-125) H Total Protein 5.8 G/DL (6.4-8.2) L Albumin 1.4 G/DL (3.4-5.0) L Globulin 4.4 g/dL Albumin/Globulin Ratio 0.3 (1.0-2.7) L Digoxin Level 0.5 NG/ML (0.5-2.0) Plan Problems: (1) Sepsis Assessment & Plan: IV abx trend labs will monitor wounds s/p wound cleaning/debridement s/p PEG C diff treatment per ID cont with IV Abx Micro noted path noted failing abx tx for c diff. concerning. (2) Decubitus skin ulcer Assessment & Plan: Pt presented on admission with multiple full thickness pressure injuries. Full thickness pressure injury to L elbow.Base of wound wound with 25% fibrinous slough,75% pink granulation noted.(+) maceration along borders. erythema without elevation in skin temp periwound(L)1.5cm x (W)1.8cm x(D)0.3cm. Full thickness pressure injury R trochanter .Base of wound with pink granulation.Edges adherent to base of wound .No odor or exudate noted.Darker skin tone without induration periwound. (L)4.5cm x (W)6.3cm x (D) 3cm.Undermining 12-3 by 3cm @12o'clock. Full thickness pressure injury to R ischium .Wound is malodorous.90% soft necrosis,10% pink noted at base of wound ,(+) epibole along edges .Periwound darker in skin tone and is indurated.(L)8.4cm x (W)4.3cm (D)2.5cm .Tunneling at 1o'clock by 3.6cm ,tunneling @5o'clock by 6.3cm. Full thickness sacral pressure injury with 80% soft necrosis ,20% pink granulation .Wound is malodorous with small amt brown exudate (L)8.5cm x (W)5cm x (D)2.5cm ,undermining 8-5 by 4.7cm @1o'clock. wounds with gross drainage poor nutritional status. prognosis concerning follow up wounds eval with team performed and L elbow wound with 60% mixed yellow /pope slough with surrounding pink granulation (L)4.5cm x (W)2.7cm. Dark skin tone periwound. Minimal serous exudate without odor noted to drsg upon removal. Second wound proximally but in close proximity to L elbow granular with trace biofilm (L)2.3cm x (W)2.4cm.Edges adherent and flat .No odor or exudate noted. Full thickness pressure injury to R trochanter with pink granulation. Small area of bone visible at base of wound. Edges adherent and flat. No odor or exudate noted (L)3.5cm x (W)6cm x (D)3.1cm. Dark skin tone periwound. Full thickness pressure injury R ischium with tunneling at 6o'clock with 80% loose -Soft necrosis at base of wound with surrounding pink granulation along inner wall of wound.#2 small areas along borders with soft loosening necrosis. No odor noted .Periwound less indurated but with darker skin tone. (L)7cm x (W) 2.9 x(D)5cm ,tunneling at 6o'clock by 5cm. Full thickness sacral pressure injury with undermining, 75% mixed soft necrosis and slough, 25% pink granulation. Small amt serosanguineous exudate without odor noted .Edges are mostly adherent with scattered areas that are non- adherent with yellow slough. (L)10cm x (W)8.2cm x (D)2.3cm ,undermining 6-3 by 4.2cm @12o'clock. Resolving partial thickness wound L hip base of wound is moist -viable .Edges adherent to base of wound .Periwound without fluctuance or induration. (L)3.9cm x(W)3cm. L ischial partial thickness wound resolving.Base of wound is pink -moist .(+) maceration long borders. Periwound without erythema or induration (L)2cm x (W) 1.2cm. No odor or exudate noted. Patients wounds with dressing changes going well but continues to have large wounds that require significant care. Recently feeding tube placement and tolerating feeds with increased nutrition will hopefully be able to begin healing wounds Tx.Plan: Cleanse R trochanter with Dakin's 0.125% candelaria. Loosely pack with Dakin's soaked kerlix .Cover with Optifoam drsg TID and prn. Cleanse R Ischial wound with Dakin's 0.125% candelaria.Loosely pack with Dakin's soaked kerlix. Cavilon Skin Barrier periwound. Cover with Optifoam drsg TID and prn. Cleanse Sacral wound with dakin's 0.125% candelaria.Loosely pack with Dakin's soaked kerlix.Cavilon Skin Barrier periwound.Cover with Optifoam drsg TID and prn. Cleanse L elbow with Dakin's 0.125% candelaria. Apply Dakin's moist 2x2 gauze. Cover with Optifoam drsg TID and prn. Quartet Air fluidized mattress. Reposition L side to back at least every 2hours or as tolerated. Goyo Osuna Sep 08, 2018 15:19
[2018-09-08] MEDS: Cholestyramine 4gm Pkt GT SCH (15:34)
[2018-09-08] MEDS ORDERED: D5W 550ml IV ONE (15:59)
[2018-09-08] MEDS ORDERED: Tubing IV Secondary IV ONE (15:59)
[2018-09-08] MEDS ORDERED: NS 500ML ONE (15:59)
--- NOTE | 2018-09-08 16:14 | Internal Med Progress Note ---
Subjective Physician Name Pedro Caban Attending Physician Pedro Caban MD Current Medications Medications (Trade) Dose Ordered Sig/Erlin Route PRN Reason Start Time Stop Time Status Last Admin Dose Admin Acetaminophen (Tylenol) 650 mg Q4H PRN PEG Mild Pain (Pain Scale 1-3) 08/31/18 02:02 09/13/18 02:01 09/08/18 09:25 Acetaminophen (Tylenol) 650 mg Q6H PRN PEG Temp > 100.5 08/31/18 02:02 09/13/18 02:01 Amiodarone HCl (Cordarone) 200 mg DAILY PEG 08/31/18 09:00 09/19/18 08:59 09/08/18 09:25 Apixaban (Eliquis) 2.5 mg Q12HR GT 09/05/18 21:00 09/29/18 20:59 09/08/18 09:25 Chlorhexidine Gluconate (Yari-Hex 2%) 1 applic DAILY@1999 TOPIC 08/31/18 20:00 09/21/18 19:59 09/07/18 20:00 Cholestyramine Resin (Questran) 4 gm Q12H GT 09/06/18 03:00 10/06/18 02:59 09/08/18 15:34 Clonidine HCl (Catapres Tab) 0.1 mg Q4H PRN GT For High Blood Pressure 08/31/18 15:44 09/21/18 15:43 Famotidine (Pepcid) 20 mg BEDTIME GT 09/06/18 21:00 10/06/18 20:59 09/07/18 21:00 Fidaxomicin (Dificid) 200 mg EVERY 12 HOURS ORAL 09/05/18 21:00 09/09/18 20:59 09/08/18 09:24 Isoniazid (Inh) 300 mg DAILY GT 08/31/18 09:00 09/13/18 08:59 09/08/18 09:24 Lactobacillus Acidophilus (Culturelle) 1 tab THREE TIMES A DAY GT 08/31/18 09:00 09/18/18 08:59 09/08/18 12:26 Metoprolol Tartrate (Lopressor) 12.5 mg Q12HR GT 09/07/18 21:00 09/22/18 20:59 09/08/18 09:24 Pyridoxine HCl (Vitamin B6) 50 mg DAILY GT 09/03/18 17:00 10/03/18 16:59 09/08/18 09:25 Sodium Hypochlorite (Dakin's Quarter Strength) 1 applic DAILY TOPIC 08/31/18 09:00 09/13/18 15:59 09/08/18 09:25 Tigecycline 50 mg/ Sodium Chloride 110 ml @ 220 mls/hr Q12H IVPB 09/08/18 05:00 09/15/18 04:59 09/08/18 15:16 Vancomycin HCl (Vanco rx to dose) 1 ea DAILY PRN MISC Per rx protocol 09/07/18 14:15 10/07/18 14:14 Vancomycin HCl 750 mg/Sodium Chloride 275 ml @ 183.333 mls/hr Q12H IVPB 09/07/18 16:00 09/12/18 15:59 09/07/18 18:51 Allergies: Coded Allergies: MILK (Verified Allergy, Unknown, 02/02/18) Subjective Awake, alert, Responsive, talking , rectal tube, Objective Last Vital Signs Date Time Temp Pulse Resp B/P (MAP) Pulse Ox O2 Delivery O2 Flow Rate FiO2 09/08/18 12:00 98.9 55 21 136/72 (93) 98 09/08/18 09:00 Nasal Cannula 2.0 09/07/18 20:17 28 Laboratory Tests Test 09/08/18 06:30 White Blood Count 11.7 K/UL (4.8-10.8) H Red Blood Count 2.87 M/UL (4.70-6.10) L Hemoglobin 8.7 G/DL (14.2-18.0) L Hematocrit 27.6 % (42.0-52.0) L Mean Corpuscular Volume 96 FL (80-99) Mean Corpuscular Hemoglobin 30.4 PG (27.0-31.0) Mean Corpuscular Hemoglobin Concent 31.7 G/DL (32.0-36.0) L Red Cell Distribution Width 16.1 % (11.6-14.8) H Platelet Count 277 K/UL (150-450) Mean Platelet Volume 5.9 FL (6.5-10.1) L Neutrophils (%) (Auto) 72.1 % (45.0-75.0) Lymphocytes (%) (Auto) 16.0 % (20.0-45.0) L Monocytes (%) (Auto) 10.8 % (1.0-10.0) H Eosinophils (%) (Auto) 0.2 % (0.0-3.0) Basophils (%) (Auto) 0.9 % (0.0-2.0) Sodium Level 134 MMOL/L (136-145) L Potassium Level 4.9 MMOL/L (3.5-5.1) Chloride Level 102 MMOL/L (98-107) Carbon Dioxide Level 28 MMOL/L (21-32) Anion Gap 4 mmol/L (5-15) L Blood Urea Nitrogen 7 mg/dL (7-18) Creatinine 0.4 MG/DL (0.55-1.30) L Estimat Glomerular Filtration Rate > 60 mL/min (>60) Glucose Level 56 MG/DL (74-106) L Uric Acid 2.8 MG/DL (2.6-7.2) Calcium Level 7.9 MG/DL (8.5-10.1) L Phosphorus Level 3.4 MG/DL (2.5-4.9) Magnesium Level 1.5 MG/DL (1.8-2.4) L Total Bilirubin 0.6 MG/DL (0.2-1.0) Aspartate Amino Transf (AST/SGOT) 24 U/L (15-37) Alanine Aminotransferase (ALT/SGPT) 12 U/L (12-78) Alkaline Phosphatase 109 U/L (46-116) Pro-B-Type Natriuretic Peptide 3052 pg/mL (0-125) H Total Protein 5.8 G/DL (6.4-8.2) L Albumin 1.4 G/DL (3.4-5.0) L Globulin 4.4 g/dL Albumin/Globulin Ratio 0.3 (1.0-2.7) L Digoxin Level 0.5 NG/ML (0.5-2.0) Intake and Output 09/07/18 09/08/18 18:59 06:59 Output Total 650 ml 2070 ml Balance -650 ml -2070 ml Output Urine Total 650 ml 2000 ml Stool Total 70 ml # Bowel Movements 1 Objective General: No acute distress, awake, alert, responsive, talking. HEENT: NCAT, sclera anicteric, PERRL, EOMI Neck: Supple, no significant jugular venous distention, Lungs: Fair inspiratory effort,decrease bilateral air entry at bases.l no Wheeze or Rales. Heart: Regular rate and rhythm, normal S1/S2, no murmur Abdomen: soft, generalized tenderness, less distended. Normoactive bowel sounds , Rectal Tube, PEG site intact. Extremities: No Cyanosis , clubbing or edema. bilateral AKA, less stump edema, RUE Piccline. Neuro: A&O x 2, Able to move upper extremities. SKIN: Multiple Decubi ulceration Assessment/Plan Assessment/Plan (1) Sepsis / bacteremia. 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 F/U with ID recommendations: Completed PO Fidaxomicin and oral vancomycin on vancomycin IV, Tigecycline IV. Pedro Caban MD Sep 08, 2018 16:14
--- NOTE | 2018-09-08 18:23 | General Progress Note ---
Assessment/Plan Assessment/Plan Assessment - C Difficile colitis - resolved - TF diarrhea - will change to peptide formula - abnormal lytes - s/p PEG - s/p b/l AKA - anemia - duodenal ulcers - bacteremia, leukocytosis - Pyuria Recommendations - Dificid - finish course - probiotics - elevate HOB - replace electrolytes - transfuse PRN - TF - anticoagulation - Poor Px Subjective Allergies: Coded Allergies: MILK (Verified Allergy, Unknown, 02/02/18) Subjective above noted significant improvement of diarrhea off of TF elemental TF orders given Objective Last 24 Hour Vital Signs Date Time Temp Pulse Resp B/P (MAP) Pulse Ox O2 Delivery O2 Flow Rate FiO2 09/08/18 12:00 98.9 55 21 136/72 (93) 98 09/08/18 09:24 71 140/83 09/08/18 09:00 Nasal Cannula 2.0 09/08/18 08:00 98.5 74 19 151/91 (111) 98 09/08/18 04:00 98.3 71 18 140/83 (102) 94 09/08/18 00:00 97.7 66 18 152/79 (103) 96 09/07/18 21:00 112 97/58 09/07/18 21:00 Nasal Cannula 2.0 09/07/18 20:17 97 Nasal Cannula 2.0 28 09/07/18 20:17 Nasal Cannula 2.0 28 09/07/18 20:00 97.7 112 18 97/58 (71) 96 Intake and Output 09/07/18 09/08/18 18:59 06:59 Output Total 650 ml 2070 ml Balance -650 ml -2070 ml Output Urine Total 650 ml 2000 ml Stool Total 70 ml # Bowel Movements 1 Laboratory Tests 09/08/18 06:30: White Blood Count 11.7H, Red Blood Count 2.87L, Hemoglobin 8.7L, Hematocrit 27.6L, Mean Corpuscular Volume 96, Mean Corpuscular Hemoglobin 30.4, Mean Corpuscular Hemoglobin Concent 31.7L, Red Cell Distribution Width 16.1H, Platelet Count 277, Mean Platelet Volume 5.9L, Neutrophils (%) (Auto) 72.1, Lymphocytes (%) (Auto) 16.0L, Monocytes (%) (Auto) 10.8H, Eosinophils (%) (Auto ) 0.2, Basophils (%) (Auto) 0.9, Sodium Level 134L, Potassium Level 4.9, Chloride Level 102, Carbon Dioxide Level 28, Anion Gap 4L, Blood Urea Nitrogen 7 , Creatinine 0.4L, Estimat Glomerular Filtration Rate > 60, Glucose Level 56L, Uric Acid 2.8, Calcium Level 7.9L, Phosphorus Level 3.4, Magnesium Level 1.5L, Total Bilirubin 0.6, Aspartate Amino Transf (AST/SGOT) 24, Alanine Aminotransferase (ALT/SGPT) 12, Alkaline Phosphatase 109, Pro-B-Type Natriuretic Peptide 3052H, Total Protein 5.8L, Albumin 1.4L, Globulin 4.4, Albumin/Globulin Ratio 0.3L, Digoxin Level 0.5 Height (Feet): 6 Height (Inches): 0.40 Weight (Pounds): 168 Objective Elderly AA man NCAT supple CTA RRR Abd soft (+) Gina Graham MD Sep 08, 2018 18:23
--- NOTE | 2018-09-11 08:44 | Discharge Summary ---
Discharge Summary Discharge Summary _ DATE OF ADMISSION: 08/14/2018 DATE OF DISCHARGE: 09/08/2018 DISCHARGED BY: Dr. Caban REASON FOR ADMISSION: 68 years old male with past medical history of hypertension, diabetes mellitus, history of CVA, coronary artery disease, NSTEMI, hyperlipidemia, angina, bipolar disorder, was sent from the assisted facility for abnormal labs. Outside the facility initial white blood count was 18. No reported fever or chills. No cough or congestion. Upon evaluation patient was febrile, tachycardic, pulse oximetry was stable on room air. EKG revealed atrial fibrillation with rapid ventricular response, troponin was negative. WBC 17.3. Hemoglobin 8.9, hematocrit 26.5. Sodium 147. Potassium 3.4. BUN 24, creatinine 0.7. Lactic acid 1.6. Albumin 1.1. Urinalysis revealed no evidence of UTI +2 protein. Chest x-ray revealed no acute cardiopulmonary pathology. Patient pancultured, started on IV fluids and empiric antibiotics. Heart rate control was achieved with Cardizem. Patient was admitted for further management CONSULTANTS: plate molder Dr. Guallpa pulmonary Dr. Montesinos ID specialist Dr. Parker GI specialist Dr. Petersen buggy ladle tender Dr. Colvin surgery Dr. Adams plastic surgeon Dr. Hilton [facility] COURSE: Patient initially admitted to telemetry floor. Prison Guard Supervisor and restrike hammer operator closely followed. Patient spontaneously converted to sinus rhythm. Patient was continued on amiodarone and beta-jeffrey. Eliquis was provided for thromboembolic prophylaxis. Patient initially was hypotensive. Antihypertensive medication were on hold. Patient started on midodrine. With IV fluids and albumin boluses, blood pressure stabilized. Supplemental oxygen provided as needed to keep pulse oximetry above 92%. Pulmonary toilet provided as needed. Patient was followed-up by restrike hammer operator. Patient was followed-up with chest x-ray , which revealed left pleural effusion. Patient started on diuretic with close monitoring of volumes and cardiorenal parameters. Last chest x-ray showed some improvement in pleural effusion . Infectious disease specialist closely followed. Initial blood culture revealed Proteus mirabilis , strep group C and Staphylococcus species coagulase negative. Rapid influenza screen test was negative. Stool for Clostridium difficile was positive. Repeated blood culture on 08/15 revealed Prevotella , blood culture on 08/17 revealed Blood culture on 08/21 were negative. Urine culture on 09/04 revealed Acinetobacter MDR. Blood culture on 319 revealed Strep viridans and sputum culture on 09/05 revealed Acinetobacter MDR. Blood culture on 09/[address] of the abdomen and pelvis demonstrated colonic mural thickening, consistent with colitis. No pneumatosis or extraluminal air. Antibiotic regimen was optimized as per ID specialist recommendation. Leukocytosis was trending down. Fevers resolved. Per ID specialist, sepsis was due to bacteremia, probably from GI translocation. Patient probably have pneumonia as well. Patient had a history of cavitary lung lesion/cavitary pneumonia (on last admission), likely due to aspiration with low suspicion for TB and /or fungal etiology. Patient was continued on INH for latent TB. Patient was on treatment for C. difficile colitis ; initially with vancomycin and then fidaxomicin was added due to ongoing diarrhea. Cholestyramine was added as well. Diarrhea improved prior to discharge. Antibiotics provided for multidrug-resistant Acinetobacter complex . Complete antibiotic at the assisted [facility] to finish the course, as per ID specialist recommendation. Valladares catheter was exchanged while in the hospital. Patient failed swallow evaluation. Patient initially have NG tube feeding. Strict aspiration precaution maintained. GI consult was requested. Patient subsequently undergone PEG placement. Patient slowly started on tube feeding as per dietary recommendation with strict aspiration/reflux precaution. However, due to persistent diarrhea formula was changed to peptide. Diarrhea resolved. Next G-tube site care provided. Patient was able to tolerate tube feeding. Hemoglobin and hematocrit were closely monitored with goal to keep hemoglobin above 7. Patient undergone transfusion of total of 3 units of packed red blood cells while in the hospital. Prior to discharge hemoglobin 8.7, hematocrit 26.7. Stool for occult blood was negative. Anemia workup was consistent with anemia of chronic disease. Ferritin 531. LFTs stable. Fire Protection Engineer recommendations implemented in plan of care. B12 and TSH stable. Renal parameters and electrolytes were closely monitored. Sterilisation Technician followed. Nephrotoxins were avoided if possible. Electrolytes corrected as needed. Supportive care provided. Surgeon followed for multiply pressure ulcers, present on admission. Pressure ulcer did not look infected. Wound care provided as per surgery recommendation. Continue wound care at the facility. Plastic surgeon seen the patient for multiple decubitus ulcers and agree with the wound care and further management. Placement was found and secured at [facility]. Patient was stable for transfer to the assisted facility for further management. FINAL DIAGNOSES: Sepsis with bacteremia, likely GI translocation C. difficile colitis Probable pneumonia Atrial fibrillation with rapid ventricular response- resolved Hypotension with history of hypertension Acute metabolic encephalopathy PVD with bilateral BKA Acute kidney injury Electrolyte balance Anemia of chronic disease History of CVA Coronary artery disease Left pleural effusion History of lung cavitary lesion/pneumonia Dysphagia Status post EGD and PEG placement 311 Duodenal ulcer Chronic hepatitis C Severe protein calorie malnutrition Bipolar disorder Left elbow, right trochanter, right issue him decubitus ulcer present on admission DISCHARGE MEDICATIONS: See Medication Reconciliation list. DISCHARGE INSTRUCTIONS: Patient was discharged to the assisted facility. Follow up with medical doctor at the facility. Linsey Boo NP Sep 11, 2018 08:44
--- NOTE | 2018-09-12 00:11 | Physician Query ---
--------- THIS DOCUMENT IS A PERMANENT PART OF THE MEDICAL RECORD --------- PLEASE COMPLETE THE FORM BEFORE SIGNING Dear Dr. CHOE Date: ___09/12/18 Record Center Specialist/CDS Name: ALICE HEMA CCDS Exercise your independent professional judgment when responding to query. Questions asked do not imply particular answer is desired or expected. We greatly appreciate your clarification on this issue. Because there is documentation in the medical record of "Debridement", clarification is needed. Please document whether this is "Excisional" or "Nonexcisional" Debridement of the wound, infection or burn. The left elbow was evaluated and identified to have a 1-2 cm full-thickness injury with palpable bone no erythema or cellulitis not requiring any debridement at this time. Wound care and dressings have been going well for this wound. We will continue with wound care and dressings as above. The sacral wound was evaluated and identified to have a open portion stage IV as well as a necrotic eschar needed excision. Using a #10 scalpel and forceps the necrotic eschar was excised so that the entirety of the wound could be evaluated and cared for. There was significant soft slough noted in the wound bed and minor debridement was done but given the fact the patient is on Eliquis vision was made to forego complete debridement until safe time where patient can be off anticoagulation. The right ischial wound was evaluated and noted to be fairly malodorous with soft tissue necrosis. There is near purulent drainage coming from this wound and some tracking was identified in the inferior aspect of the wound. Wound was completely evaluated and tracking noted. Wound was irrigated and cleansed until clean. Minor debridement of the necrotic wound edges was performed to allow for better evaluation of the underlying tissues. SITES: L ELBOW SACRUM ____x R ISHIUM [xx] Excisional: The removal of necrotic, devitalized tissue or slough by means of cutting away of tissue (the use of scissors, scalpel or curette are common). [] Nonexcisional: The removal of necrotic, devitalized tissue or slough by means of flushing, brushing or washing (irrigating). Documentation should also include the "depth" of tissue removed, e.g., skin, fascia, muscle or bone. Addendum: depth of tissue removed down to bone Please document the appropriate type of Debridement on the Progress Notes or on this form as an addendum to the patient's record. (Sign and date all documents). DR CHOE DATE MTDD
== END 2018-09-08 16:00 | DRG 853 ==
LOC: EDBD 00:45 → EMR 01:03 → 2E 02:13 → EDBEDREQ 03:10 → 2E 08-19 12:07 → 4E 08-31 01:30
PROC: B518ZZA Fluoroscopy of Superior Vena Cava, Guidance (ICD-10-PCS; principal; 2018-08-23)
PROC: 02HV33Z Insertion of Infusion Device into Superior Vena Cava, Percutaneous Approach (ICD-10-PCS; principal; 2018-08-23)
PROC: 0QB10ZZ Excision of Sacrum, Open Approach (ICD-10-PCS; principal; 2018-08-23)
PROC: 0DB78ZX Excision of Stomach, Pylorus, Via Natural or Artificial Opening Endoscopic, Diagnostic (ICD-10-PCS; 2018-08-29 07:32)
PROC: 0DH63UZ Insertion of Feeding Device into Stomach, Percutaneous Approach (ICD-10-PCS; 2018-08-29 07:32)
DX: A41.9 Sepsis, unspecified organism (principal); L89.153 Pressure ulcer of sacral region, stage 3; L89.023 Pressure ulcer of left elbow, stage 3; J69.0 Pneumonitis due to inhalation of food and vomit; G93.41 Metabolic encephalopathy; E43 Unspecified severe protein-calorie malnutrition; N39.0 Urinary tract infection, site not specified; F31.81 Bipolar II disorder; A04.72 Enterocolitis due to Clostridium difficile, not specified as recurrent; N17.9 Acute kidney failure, unspecified; E87.0 Hyperosmolality and hypernatremia; J90 Pleural effusion, not elsewhere classified; Z89.612 Acquired absence of left leg above knee; Z89.611 Acquired absence of right leg above knee; I10 Essential (primary) hypertension; I25.10 Atherosclerotic heart disease of native coronary artery without angina pectoris; L89.219 Pressure ulcer of right hip, unspecified stage; I48.91 Unspecified atrial fibrillation; Z79.01 Long term (current) use of anticoagulants; D64.9 Anemia, unspecified; Z86.73 Personal history of transient ischemic attack (TIA), and cerebral infarction without residual deficits; B18.2 Chronic viral hepatitis C; I95.9 Hypotension, unspecified; F03.90 Unspecified dementia, unspecified severity, without behavioral disturbance, psychotic disturbance, mood disturbance, and anxiety; E87.6 Hypokalemia; R13.10 Dysphagia, unspecified; Z22.322 Carrier or suspected carrier of Methicillin resistant Staphylococcus aureus; E78.00 Pure hypercholesterolemia, unspecified; Z68.22 Body mass index [BMI] 22.0-22.9, adult; R76.11 Nonspecific reaction to tuberculin skin test without active tuberculosis; K26.9 Duodenal ulcer, unspecified as acute or chronic, without hemorrhage or perforation
CPT/HCPCS: 36415; 36569; 36600; 71045; 74018; 74177; 76937; 80048; 80053; 80162; 81003; 82270; 82550; 82553; 82607; 82728; 82746; 82803; 82977; 83540; 83550; 83605; 83735; 83880; 84100; 84443; 84484; 84550; 85007; 85025; 85610; 85651; 85730; 86140; 86710; 86850; 86900; 86901; 86920; 87040; 87070; 87081; 87086; 87181; 87205; 87324; 93005; 94003; 94150; 94664; 94760; 96361; 96365; 96368; 96375; 96376; 99291; J8499